=== PATIENT | male | born 1930 | race Caucasian/White ===

== ENCOUNTER 2017-02-01 12:12 | Inpatient (IN) | payer OTHER ==
--- NOTE | 2017-02-01 12:45 | PDOC ---
History of Present Illness <Sunday Blum - Last Filed: 02/01/17 16:38> - General History Source: Patient Exam Limitations: No Limitations - History of Present Illness Initial Comments: 02/01/17 14:06 The patient is a 86 year old male resident from [facility] on [facility], with a significant past medical history of Alzheimer's, Vitamin B12 deficiency, HTN, Depression, Bipolar, Dementia, Osteoarthritis who presents to the emergency department for evaluation of fever. Patient denies any current complaints. Upon evaluation, patients vital signs significant for rectal temperature of 104. He denies chest pain, headache or dizziness. He denies fever, chills, abdominal pain, nausea, vomit, diarrhea or constipation. He denies dysuria, frequency, urgency or hematuria. Patient denies sick contacts or recent travel. Allergies: NKA Past surgical history: None Social history: None PCP: Dana <Svitalna Gibbons - Last Filed: 02/01/17 18:41> - General Chief Complaint: SIRS, Suspected/Possible Stated Complaint: Altered Mental Status Time Seen by Provider: 02/01/17 12:43 Past History - Past Medical History HTN: Yes Psychiatric Problems: Yes - Suicide/Smoking/Psychosocial Hx Smoking History: Unknown if ever smoked Have you smoked in the past 12 months: No If you are a former smoker, when did you quit?: 20 YRS AGO Hx Alcohol Use: No Substance Use Type: None <Sunday Blum - Last Filed: 02/01/17 16:38> <Svitlana Gibbons - Last Filed: 02/01/17 18:41> - Past Medical History Allergies/Adverse Reactions: Allergies Allergy/AdvReac Type Severity Reaction Status Date / Time No Known Allergies Allergy Unverified 09/12/13 11:22 Home Medications: Ambulatory Orders Metoprolol Succinate [Toprol XL -] 50 mg PO DAILY 09/12/13 Cyanocobalamin [Vitamin B12 -] 1,000 mcg PO DAILY 02/01/17 Escitalopram Oxalate [Lexapro -] 5 mg PO DAILY 02/01/17 Loratadine [Claritin] 10 mg PO DAILY 02/01/17 Losartan Potassium [Cozaar] 25 mg PO HS 02/01/17 Olanzapine [Zyprexa] 7.5 mg PO DAILY 02/01/17 Sennosides [Senna] 8.6 mg PO HS 02/01/17 Review of Systems - Review of Systems Able to Perform ROS?: Yes Comments:: 02/01/17 14:07 GENERAL/CONSTITUTIONAL: +fever, chills. No weakness. HEAD, EYES, EARS, NOSE AND THROAT: No change in vision. No ear pain or discharge. No sore throat. CARDIOVASCULAR: No chest pain or shortness of breath. RESPIRATORY: No cough, wheezing, or hemoptysis. GASTROINTESTINAL: No nausea, vomiting, diarrhea or constipation. GENITOURINARY: No dysuria, frequency, or change in urination. MUSCULOSKELETAL: No joint or muscle swelling or pain. No neck or back pain. SKIN: No rash NEUROLOGIC: No headache, vertigo, loss of consciousness, or change in strength/ sensation. ENDOCRINE: No increased thirst. No abnormal weight change. HEMATOLOGIC/LYMPHATIC: No anemia, easy bleeding, or history of blood clots. ALLERGIC/IMMUNOLOGIC: No hives or skin allergy. <Svitlana Gibbons - Last Filed: 02/01/17 18:41> *Physical Exam - Vital Signs Last Vital Signs Temp Pulse Resp BP Pulse Ox 104 F H 102 H 38 H 140/78 98 02/01/17 12:44 02/01/17 12:44 02/01/17 12:44 02/01/17 12:44 02/01/17 12:44 - Physical Exam Comments: 02/01/17 14:07 GENERAL: Awake, alert, and fully oriented, in no acute distress. +confused. HEAD: No signs of trauma EYES: PERRLA, EOMI, sclera anicteric, conjunctiva clear ENT: Auricles normal inspection, hearing grossly normal, nares patent, oropharynx clear without exudates. Moist mucosa NECK: Normal ROM, supple, no lymphadenopathy, JVD, or masses LUNGS: Breath sounds equal, clear to auscultation bilaterally. No wheezes, and no crackles HEART: Regular rate and rhythm, normal S1 and S2, no murmurs, rubs or gallops ABDOMEN: Soft, nontender, normoactive bowel sounds. No guarding, no rebound. No masses EXTREMITIES: Normal range of motion, no edema. No clubbing or cyanosis. No cords, erythema, or tenderness NEUROLOGICAL: Cranial nerves II through XII grossly intact. Normal speech, normal gait SKIN: Warm, Dry, normal turgor, no rashes or lesions noted. <Svitlana Gibbons - Last Filed: 02/01/17 18:41> Heart Score/ECG Review #1 02/01/17 18:[address] Blum Impression: Normal sinus rhythm L axis deviation moderate voltage criteria for LVH Interior infarct Anterior infarct Vent rate 100 bpm <Svitlana Gibbons - Last Filed: 02/01/17 18:41> ED Treatment Course - LABORATORY CBC & Chemistry Diagram: 02/01/17 12:55 02/01/17 13:35 <Sunday Blum - Last Filed: 02/01/17 16:38> - LABORATORY CBC & Chemistry Diagram: 02/01/17 12:55 02/01/17 13:35 - ADDITIONAL ORDERS Additional order review: Laboratory Results 02/01/17 02/01/17 02/01/17 13:35 12:55 12:55 PT with INR 13.30 H INR 1.18 H PTT (Actin FS) 25.2 L Sodium 147 H Potassium 3.8 Chloride 114 H Lactic Acid Blood Type O NEGATIVE Antibody Screen Negative 02/01/17 12:52 PT with INR INR PTT (Actin FS) Sodium Potassium Chloride Lactic Acid 3.4 H* Blood Type Antibody Screen 02/01/17 12:55 RBC 3.99 L MCV 97.7 H MCHC 34.1 RDW 13.4 MPV 9.8 Neutrophils % 95.3 H Lymphocytes % 1.7 L Monocytes % 2.4 L Eosinophils % 0.0 Basophils % 0.6 - Medications Given in the ED: ED Medications Discontinued Medications Generic Name Dose Route Start Last Admin Trade Name Freq PRN Reason Stop Dose Admin Sodium Chloride 1,000 mls @ 1,000 mls/hr 02/01/17 12:52 02/01/17 13:04 Normal Saline - IV 02/01/17 13:51 1,000 mls/hr ASDIR STA Administration <Svitlana Gibbons - Last Filed: 02/01/17 18:41> Medical Decision Making - Critical Care Time Total Critical Care Time (minutes): 60 Critical Care Statement: The care of this patient involved high complexity decision making to prevent further life threatening deterioration of the patient 's condition and/or to evaluate & treat vital organ system(s) failure or risk of failure. - Medical Decision Making 02/01/17 15:[address] Weems's office. Awaiting call back. 02/01/17 16:[address] Weems's office. Awaiting call back. 02/01/17 16:[address] Weems's office. Awaiting call back. <Svitlana Gibbons - Last Filed: 02/01/17 18:41> *DC/Admit/Observation/Transfer - Discharge Dispostion Admit: Yes - Attestations Physician Attestion: 02/01/17 12:44 I, Dr. Sunday Blum, attest that this document has been prepared under my direction and personally reviewed by me in its entirety. I further attest, that it accurately reflects all work, treatment, procedures and medical decision -making performed by me. <Sunday Blum - Last Filed: 02/01/17 16:38> - Attestations Scribe Attestion: 02/01/17 14:07 Documentation prepared by Svitlana Gibbons, acting as medical and scientific illustrator for Sunday Blum DO. <Svitlana Gibbons - Last Filed: 02/01/17 18:41> Diagnosis at time of Disposition: Severe sepsis, Elevated liver function tests, Systemic inflammatory response syndrome (SIRS) - Discharge Dispostion Condition at time of disposition: Improved
[2017-02-01 12:49] VITALS: BMI 27.1
[2017-02-01] MEDS ORDERED: SODIUM CHLORIDE 1,000 ML IV STA ×2 (12:52→15:19)
[2017-02-01] MEDS ORDERED: ACETAMINOPHEN 1000 MG/100 ML VIAL (NON FORMULARY) IVPB ONE (12:54)
[2017-02-01 13:13] LABS: BASOPHIL 0.6 % (0-2.0); MCH 33.3 pg (25.7-33.7); MCHC 34.1 g/dl (32.0-35.9); MEAN CELL VOLUME 97.7 fl (80-96); MEAN PLT VOLUME 9.8 fl (7.5-11.1); NEUTROPHILS 95.3 % (42.8-82.8); PLATELET COUNT 123 K/MM3 (134-434); RDW 13.4 % (11.9-15.9); WHITE BLOOD COUNT 8.3 K/mm3 (4.0-10.0)
[2017-02-01 13:31] LABS: INR 1.18 (0.82-1.09); PROTHROMBIN TIME (PATIENT) 13.3 SEC (9.98-11.88)
[2017-02-01 13:34] LABS: ACTIVATED PTT 25.2 SECONDS (26.9-34.4)
[2017-02-01 14:07] LABS: ALBUMIN 2.8 g/dl (3.4-5.0); ANION GAP 12 (8-16); CALCIUM 7.8 mg/dL (8.5-10.1); CO2 21 mmol/L (21-32); CREATININE 2.1 mg/dL (0.7-1.3); GLUCOSE,RANDOM 147 mg/dL (74-106); SGOT/AST 185 U/L (15-37); SGPT/ALT 385 U/L (12-78)
[2017-02-01 14:09] LABS: BILIRUBIN,TOTAL 2.7 mg/dL (0.2-1.0); TOT PROT 6.6 g/dl (6.4-8.2)
[2017-02-01] MEDS ORDERED: ACETAMINOPHEN INJECTION 100 ML IVPB ONE (14:09)
[2017-02-01 14:19] LABS: URINE APPEARANCE SLCLOUDY; URINE BILIRUBIN NEGATIVE (NEGATIVE); URINE BLOOD 1+ (NEGATIVE); URINE GLUCOSE (UA) NEGATIVE (NEGATIVE); URINE KETONE NEGATIVE (NEGATIVE); URINE NITRITE NEGATIVE (NEGATIVE); URINE UROBILINOGEN NEGATIVE mg/dL (0.2-1.0)
[2017-02-01 14:21] LABS: ALK PHOS 281 U/L (45-117); CPK 939 IU/L (39-308); TROPONIN I 0.11 ng/ml (0.00-0.05)
[2017-02-01 14:26] LABS: URINE COLOR DK YELLOW; URINE PROTEIN 2+ (NEGATIVE)
[2017-02-01 14:28] LABS: URINE BACTERIA FEW /hpf (NONE SEEN); URINE HYALINE CAST 21 /lpf; URINE MUCUS RARE; URINE RBC 8 /hpf (0-3); URINE WBC 2 /hpf (3-5)
[2017-02-01 15:09] LABS: VENOUS PH 7.35 (7.32-7.42)
[2017-02-01] MEDS ORDERED: VANCOMYCIN 500 MG/100 ML PRE-DOCKED IVPB ONE (15:54)
[2017-02-01] MEDS ORDERED: PIPERACILLIN/TAZOB 2.25 GM/50 ML PREMIX BAG IVPB ONE (15:54)
[2017-02-01 16:44] LABS: URINE LEUK ESTERASE Negative (NEGATIVE)
[2017-02-01] MEDS ORDERED: VANCOMYCIN 1 GRAM (PRE-DOCKED) 250 ML IVPB ONE (16:47)
[2017-02-01] MEDS ORDERED: PIPERACILLIN/TAZOB 2.25 GM 50 ML IVPB ONE (17:00)
--- NOTE | 2017-02-01 17:04 | CON.GI ---
Consult Consult Specialty:: GI Referred by:: Dr Johnson (Sx) Reason for Consultation:: cholangitis - History of Present Illness History of Present Illness: An 86 [facility], with Alzheimer's, HTN, Depression, Bipolar, Dementia, Brought to ED with rectal temp 104. The patient is oriented to self. As per family became non-comunicative and lethargic in the last 3 weeks. Not in distress. Doensn't appear to be in pain, or discomfort. In ED foyevgeniy ho have elevated ALP, ALT, AST, Total bili. US liver showed cholelithiasis and choledocolithiasis. History of the same few years ago. Was deemed inoperable for cholesystectomy few years ago. Son and at bedside want to avoid aggressive measures. 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 Cardio/Vascular: Yes: HTN Hepatobiliary: Yes: Cholelithiasis, Cholecystitis Psych: Yes: Depression - Alcohol/Substance Use Hx Alcohol Use: No - Smoking History Smoking history: Unknown if ever smoked Have you smoked in the past 12 months: No If you are a former smoker, when did you quit?: 20 YRS AGO Home Medications - Allergies Allergies/Adverse Reactions: Allergies Allergy/AdvReac Type Severity Reaction Status Date / Time No Known Allergies Allergy Unverified 09/12/13 11:22 - Home Medications Home Medications: Ambulatory Orders Metoprolol Succinate [Toprol XL -] 50 mg PO DAILY 09/12/13 Cyanocobalamin [Vitamin B12 -] 1,000 mcg PO DAILY 02/01/17 Escitalopram Oxalate [Lexapro -] 5 mg PO DAILY 02/01/17 Loratadine [Claritin] 10 mg PO DAILY 02/01/17 Losartan Potassium [Cozaar] 25 mg PO HS 02/01/17 Olanzapine [Zyprexa] 7.5 mg PO DAILY 02/01/17 Sennosides [Senna] 8.6 mg PO HS 02/01/17 Family Disease History - Family Disease History Family History: Unremarkable Review of Systems Unable to obtain ROS, reason: non-comunicative Findings/Remarks: please refer to H&P, ED and HPI Physical Exam-GI Vital Signs: Vital Signs Temperature 104 F H 02/01/17 14:00 Pulse Rate 102 H 02/01/17 14:00 Respiratory Rate 28 H 02/01/17 15:35 Blood Pressure 140/75 02/01/17 14:00 O2 Sat by Pulse Oximetry (%) 98 02/01/17 14:00 Constitutional: Yes: No Distress, Calm. No: Diaphoresis, Pallor Eyes: Yes: Conjunctiva Clear HENT: Yes: Atraumatic Neck: Yes: Supple Cardiovascular: Yes: Tachycardia Respiratory: Yes: Regular ...Palpate: Yes: Soft. No: Guarding, Mass, Pulsatile Mass, Tenderness Musculoskeletal: Yes: Joint Stiffness, Other (i position) Integumentary: No: Jaundice Neurological: Yes: Confusion, Lethargy. No: Alert Labs: INR, PTT INR 1.18 (0.82-1.09) H 02/01/17 12:55 Laboratory Tests 02/01/17 02/01/17 02/01/17 12:52 12:55 12:55 WBC 8.3 RBC 3.99 L Hgb 13.3 Hct 39.0 MCV 97.7 H MCH 33.3 MCHC 34.1 RDW 13.4 Plt Count 123 L MPV 9.8 Neutrophils % 95.3 H Lymphocytes % 1.7 L Monocytes % 2.4 L Eosinophils % 0.0 Basophils % 0.6 PT with INR 13.30 H INR 1.18 H PTT (Actin FS) 25.2 L VBG pH POC VBG pCO2 POC VBG pO2 Mixed VBG HCO3 Sodium Potassium Chloride Carbon Dioxide Anion Gap BUN Creatinine Creat Clearance w eGFR Random Glucose Lactic Acid 3.4 H* Calcium Total Bilirubin AST ALT Alkaline Phosphatase Ammonia Creatine Kinase Creatine Kinase Index CK-MB (CK-2) Troponin I Total Protein Albumin Urine Color Urine Appearance Urine pH Ur Specific [place] Urine Protein Urine Glucose (UA) Urine Ketones Urine Blood Urine Nitrite Urine Bilirubin Urine Urobilinogen Ur Leukocyte Esterase Urine RBC Urine WBC Urine Bacteria Hyaline Casts Urine Mucus Blood Type Antibody Screen 02/01/17 02/01/17 02/01/17 12:55 13:35 13:35 WBC RBC Hgb Hct MCV MCH MCHC RDW Plt Count MPV Neutrophils % Lymphocytes % Monocytes % Eosinophils % Basophils % PT with INR INR PTT (Actin FS) VBG pH POC VBG pCO2 POC VBG pO2 Mixed VBG HCO3 Sodium 147 H Potassium 3.8 Chloride 114 H Carbon Dioxide 21 Anion Gap 12 BUN 83 H Creatinine 2.1 H Creat Clearance w eGFR 30.02 Random Glucose 147 H Lactic Acid Calcium 7.8 L Total Bilirubin 2.7 H AST 185 H ALT 385 H Alkaline Phosphatase 281 H Ammonia 39.4 H Creatine Kinase 939 H Creatine Kinase Index 0.4 CK-MB (CK-2) 3.763 H Troponin I 0.11 H Total Protein 6.6 Albumin 2.8 L Urine Color Urine Appearance Urine pH Ur Specific [place] Urine Protein Urine Glucose (UA) Urine Ketones Urine Blood Urine Nitrite Urine Bilirubin Urine Urobilinogen Ur Leukocyte Esterase Urine RBC Urine WBC Urine Bacteria Hyaline Casts Urine Mucus Blood Type O NEGATIVE Antibody Screen Negative 02/01/17 02/01/17 14:10 14:50 WBC RBC Hgb Hct MCV MCH MCHC RDW Plt Count MPV Neutrophils % Lymphocytes % Monocytes % Eosinophils % Basophils % PT with INR INR PTT (Actin FS) VBG pH 7.35 POC VBG pCO2 42.1 POC VBG pO2 35.9 Mixed VBG HCO3 23.0 Sodium Potassium Chloride Carbon Dioxide Anion Gap BUN Creatinine Creat Clearance w eGFR Random Glucose Lactic Acid Calcium Total Bilirubin AST ALT Alkaline Phosphatase Ammonia Creatine Kinase Creatine Kinase Index CK-MB (CK-2) Troponin I Total Protein Albumin Urine Color Dk yellow Urine Appearance Slcloudy Urine pH 5.0 Ur Specific [place] 1.018 Urine Protein 2+ H Urine Glucose (UA) Negative Urine Ketones Negative Urine Blood 1+ H Urine Nitrite Negative Urine Bilirubin Negative Urine Urobilinogen Negative Ur Leukocyte Esterase Negative Urine RBC 8 Urine WBC 2 Urine Bacteria Few Hyaline Casts 21 Urine Mucus Rare Blood Type Antibody Screen Imaging - Results Ultrasound: Image Reviewed (cholelithiasis, choledocolithiasis. official read pending) Problem List - Problems (1) Cholangitis due to bile duct calculus with obstruction Code(s): K80.31 - CALCULUS OF BILE DUCT W CHOLANGITIS, UNSP, WITH OBSTRUCTION (2) Choledocholithiasis with obstruction Code(s): K80.51 - CALCULUS OF BILE DUCT W/O CHOLANGITIS OR CHOLECYST W OBST (3) Cholelithiasis Code(s): K80.20 - CALCULUS OF GALLBLADDER W/O CHOLECYSTITIS W/O OBSTRUCTION Assessment/Plan Cholangitis in a debilitated patient. Family wants minimally invasive options. ERCP and possible percutaneous transhepatic cholangiography were discussed. Start ceftriaxone 1 gm IV q24, Metronidazole 500 mg IV q8 hrs. ID Abx evalaution for optimal coverage IR to evaluate for percutaneous drainage Surgery is on the case NPO IVF CBD, CMP, direct bili daily.
[2017-02-01] MEDS: SODIUM CHLORIDE 1,000 ML IV SCH (17:30)
--- NOTE | 2017-02-01 18:06 | CON.ID ---
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 He has generally not been feeling well and getting less active and responsive. He was brought to ER, where he had a temp 104, Patient was worked up in the er US showed gallstones and sludge, thickened gallbladder wall, dilated CBD >1cm with CBD stone(s) present and possibly mild intrahepatic dilation. 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's Cardio/Vascular: Yes: HTN Hepatobiliary: Yes: Cholelithiasis, Cholecystitis Psych: Yes: Depression - Alcohol/Substance Use Hx Alcohol Use: No - Smoking History Smoking history: Unknown if ever smoked Have you smoked in the past 12 months: No If you are a former smoker, when did you quit?: 20 YRS AGO Home Medications - Allergies Allergies/Adverse Reactions: Allergies Allergy/AdvReac Type Severity Reaction Status Date / Time No Known Allergies Allergy Unverified 09/12/13 11:22 - Home Medications Home Medications: Ambulatory Orders Metoprolol Succinate [Toprol XL -] 50 mg PO DAILY 09/12/13 Cyanocobalamin [Vitamin B12 -] 1,000 mcg PO DAILY 02/01/17 Escitalopram Oxalate [Lexapro -] 5 mg PO DAILY 02/01/17 Loratadine [Claritin] 10 mg PO DAILY 02/01/17 Olanzapine [Zyprexa] 7.5 mg PO DAILY 02/01/17 Sennosides [Senna] 8.6 mg PO HS 02/01/17 Ascorbate Calcium [Vitamin C] 500 mg PO DAILY 02/02/17 Losartan Potassium [Cozaar] 50 mg PO DAILY 02/02/17 Review of Systems Unable to obtain ROS, reason: unable to obtain Physical Exam Vital Signs: Vital Signs Temperature 104 F H 02/01/17 14:00 Pulse Rate 102 H 02/01/17 14:00 Respiratory Rate 28 H 02/01/17 15:35 Blood Pressure 140/75 02/01/17 14:00 O2 Sat by Pulse Oximetry (%) 98 02/01/17 14:00 Constitutional: Yes: Calm, Mild Distress Eyes: Yes: Sclera Icterus HENT: Yes: Atraumatic Neck: Yes: Supple, Trachea Midline Cardiovascular: Yes: Regular Rate and Rhythm. No: Murmur Respiratory: Yes: On Nasal O2, Poor Air Entry Gastrointestinal: Yes: Tenderness (left side) Musculoskeletal: Yes: WNL Extremities: Yes: WNL Integumentary: Yes: WNL Neurological: Yes: Alert, Confusion, Lethargy Psychiatric: Yes: Other Imaging - Results Chest X-ray: Report Reviewed, Image Reviewed Cat Scan: Report Reviewed, Image Reviewed Ultrasound: Report Reviewed, Image Reviewed Assessment/Plan Problem List - Problems (1) Calculus of gallbladder 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91 - Unspecified dementia with behavioral disturbance; F03.91 - Unspecified dementia with behavioral disturbance; F03.91 - Unspecified dementia with behavioral disturbance fever because of patients condition i doubt patient will be taken to the or further imaging studies planned and then will decide what to do next i ahve started patient on abx plan abx hydration await for all cx rest as per primary team and surgery
--- NOTE | 2017-02-01 19:32 | CONSULT ---
Consult Consult Specialty:: General Surgery Referred by:: Dr. 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 He has been spending more time in bed, not just in room, eating less until he won't eat last few days, no direct complaints of abdominal pain but states "my head hurts. " He has generally not been feeling well and getting less active and responsive. He was brought to ER, where he had a temp 104, wbc 8.3, BUN/Cr 83/ 2.1, elevated LFTs, mildly elevated cardiac enzymes, lactate 3.4, neg UA. Head CT was negative, he was hydrated with IV fluid and blood cultures were drawn. US showed gallstones and sludge, thickened gallbladder wall, dilated CBD >1cm with CBD stone(s) present and possibly mild intrahepatic dilation. Antibiotics - Vanco and Zosyn were started at renal doses. ID and GI were consulted. He is admitted to medicine. Surgery was consulted prior to the US results for possible intraabdominal source of fever and illness. Per his , she also noticed a slight yellow tinge to his skin. They are not sure how much he has been urinating recently, but believe he is having BMs at the group home. He recently was started on an antipsychotic there to help with behavioral outbursts related to his dementia. Per , he has been keeping his eyes closed when eating recently, which is not typical, and he stopped eating at the group home. No N/V that they know of. 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 getting records from [place] ), Choledocholithiasis Psych: Yes: Depression, Psychosis (features to dementia) Additional Medical History: macular degeneration (legally blind) - Past Surgical History Past Surgical History: Yes: Upper Endoscopy (with ERCP and stone extraction 2015 [place] (too sick for cholecystectomy)) - Alcohol/Substance Use Hx Alcohol Use: No History of Substance Use: reports: None - Smoking History Smoking history: Former smoker Have you smoked in the past 12 months: No If you are a former smoker, when did you quit?: 30 YRS AGO - 1-2ppd x 20-30 yrs - Social History Usual Living Arrangement: Jail ADL: Support Services Home Medications - Allergies Allergies/Adverse Reactions: Allergies Allergy/AdvReac Type Severity Reaction Status Date / Time No Known Allergies Allergy Unverified 09/12/13 11:22 - Home Medications Home Medications: Ambulatory Orders Metoprolol Succinate [Toprol XL -] 50 mg PO DAILY 09/12/13 Cyanocobalamin [Vitamin B12 -] 1,000 mcg PO DAILY 02/01/17 Escitalopram Oxalate [Lexapro -] 5 mg PO DAILY 02/01/17 Loratadine [Claritin] 10 mg PO DAILY 02/01/17 Losartan Potassium [Cozaar] 25 mg PO HS 02/01/17 Olanzapine [Zyprexa] 7.5 mg PO DAILY 02/01/17 Sennosides [Senna] 8.6 mg PO HS 02/01/17 Family Disease History - Family Disease History Family History: Unremarkable Review of Systems Unable to obtain ROS, reason: patient condition - Review of Systems Constitutional: reports: Fever (in ER), Lethargy, Loss of Appetite, Weakness Eyes: reports: Other (pt is blind) HENT: reports: Other (per family, NH had given meds recently for "a cold") Cardiovascular: denies: Chest Pain Respiratory: reports: Cough (possible - son heard him coughing, but not sure for how long). denies: SOB Gastrointestinal: reports: Constipation (history of). denies: Abdominal Pain ( pt not complaining of), Nausea, Vomiting Integumentary: reports: Change in Color (slightly yellow per ). denies: Rash Neurological: reports: Change in LOC (less responsive, more lethargic), Confusion (dementia), Headache (pt c/o head hurting), Unsteady Gait (weak), Weakness (had trouble getting up third step at home few days ago) Psychiatric: reports: Other (behavioral issues with dementia) Physical Exam Vital Signs: Vital Signs Temperature 104 F H 02/01/17 14:00 Pulse Rate 102 H 02/01/17 14:00 Respiratory Rate 28 H 02/01/17 15:35 Blood Pressure 140/75 02/01/17 14:00 O2 Sat by Pulse Oximetry (%) 98 02/01/17 14:00 Constitutional: Yes: Well Nourished, No Distress, Calm Eyes: Yes: EOM Intact, Sclera Icterus (mild) HENT: Yes: Atraumatic, Normocephalic Neck: Yes: Supple, Trachea Midline Cardiovascular: Yes: Regular Rate and Rhythm. No: Murmur Respiratory: Yes: Regular, CTA Bilaterally Gastrointestinal: Yes: Normal Bowel Sounds, Soft, Distention (some). No: Tenderness (none elicited directly) ...Rectal Exam: Yes: Deferred Renal/: No: CVA Tenderness - Left, CVA Tenderness - Right Musculoskeletal: Yes: Other (tends to hold knees bent, not contracted, can extend). No: Joint Stiffness, Joint Swelling Extremities: No: Cool, Cyanosis Edema: Yes Edema: LLE: 1+, RLE: 1+ Peripheral Pulses WNL: Yes Integumentary: Yes: Jaundice (mild). No: Rash Neurological: Yes: Alert, Confusion Labs: CBCD WBC 8.3 K/mm3 (4.0-10.0) 02/01/17 12:55 RBC 3.99 M/mm3 (4.00-5.60) L 02/01/17 12:55 Hgb 13.3 GM/dL (11.7-16.9) 02/01/17 12:55 Hct 39.0 % (35.4-49) 02/01/17 12:55 MCV 97.7 fl (80-96) H 02/01/17 12:55 MCHC 34.1 g/dl (32.0-35.9) 02/01/17 12:55 RDW 13.4 % (11.9-15.9) 02/01/17 12:55 Plt Count 123 K/MM3 (134-434) L 02/01/17 12:55 MPV 9.8 fl (7.5-11.1) 02/01/17 12:55 CMP Sodium 147 mmol/L (136-145) H 02/01/17 13:35 Potassium 3.8 mmol/L (3.5-5.1) 02/01/17 13:35 Chloride 114 mmol/L (98-107) H 02/01/17 13:35 Carbon Dioxide 21 mmol/L (21-32) 02/01/17 13:35 Anion Gap 12 (8-16) 02/01/17 13:35 BUN 83 mg/dL (7-18) H 02/01/17 13:35 Creatinine 2.1 mg/dL (0.7-1.3) H 02/01/17 13:35 Creat Clearance w eGFR 30.02 (>60) 02/01/17 13:35 Calcium 7.8 mg/dL (8.5-10.1) L 02/01/17 13:35 Total Bilirubin 2.7 mg/dL (0.2-1.0) H 02/01/17 13:35 AST 185 U/L (15-37) H 02/01/17 13:35 ALT 385 U/L (12-78) H 02/01/17 13:35 Alkaline Phosphatase 281 U/L (45-117) H 02/01/17 13:35 Total Protein 6.6 g/dl (6.4-8.2) 02/01/17 13:35 Albumin 2.8 g/dl (3.4-5.0) L 02/01/17 13:35 Urine Test Results Urine Color Dk yellow 02/01/17 14:10 Urine Appearance Slcloudy 02/01/17 14:10 Urine pH 5.0 (5.0-8.0) 02/01/17 14:10 Ur Specific [place] 1.018 (1.001-1.035) 02/01/17 14:10 Urine Protein 2+ (NEGATIVE) H 02/01/17 14:10 Urine Glucose (UA) Negative (NEGATIVE) 02/01/17 14:10 Urine Ketones Negative (NEGATIVE) 02/01/17 14:10 Urine Blood 1+ (NEGATIVE) H 02/01/17 14:10 Urine Nitrite Negative (NEGATIVE) 02/01/17 14:10 Urine Bilirubin Negative (NEGATIVE) 02/01/17 14:10 Ur Leukocyte Esterase Negative (NEGATIVE) 02/01/17 14:10 Urine RBC 8 /hpf (0-3) 02/01/17 14:10 Urine WBC 2 /hpf (3-5) 02/01/17 14:10 Urine Bacteria Few /hpf (NONE SEEN) 02/01/17 14:10 Urine Mucus Rare 02/01/17 14:10 lact 3.4 INR, PTT INR 1.18 (0.82-1.09) H 02/01/17 12:55 Troponin, BNP 02/01/17 13:35 Troponin I 0.11 H elevated Na, Cl Imaging - Results Chest X-ray: Report Reviewed Cat Scan: Pending Ultrasound: Report Reviewed (choledocholithiasis, cholelithiasis with sludge, mildly thickened wall, cbd dilation with possible mild intrahepatic dilation), Image Reviewed MRI: Pending EKG: Report Reviewed, Image Reviewed Problem List - Problems (1) Calculus of gallbladder 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 Assessment/Plan: admitted to medicine NPO/IVF - essential meds with sips ok GI on board trend labs IV antibiotics - ID on board, adjust for renal function CT pending to ensure no other source of illness MRCP pending tonight for IR possible HIDA in am to evaluate for cystic duct obstruction pending MR results, then plan for percutaneous biliary drainage of bile duct +/- gallbladder pt was "too sick" for surgery 2 years ago, is still not good candidate for cholecystectomy, ERCP carries risks of anesthesia, and family desires least invasive procedure(s) possible with potential for benefit will start with above and IV antibiotics and reassess cardiology also to see patient - admitted to telemetry Thank you for the opportunity to participate in the care of this patient. Code(s): K80.67 - CALCULUS OF GB AND BILE DUCT W AC AND CHR CHOLECYST W OBST (2) Hypertension Code(s): I10 - ESSENTIAL (PRIMARY) HYPERTENSION Qualifiers: Hypertension type: essential hypertension Qualified Code(s): I10 - Essential (primary) hypertension; I10 - Essential (primary) hypertension; I10 - Essential (primary) hypertension (3) Macular degeneration, age related Code(s): H35.30 - UNSPECIFIED MACULAR DEGENERATION (4) Dementia with behavioral disturbance Code(s): F03.91 - UNSPECIFIED DEMENTIA WITH BEHAVIORAL DISTURBANCE Qualifiers : Dementia type: unspecified type Qualified Code(s): F03.91 - Unspecified dementia with behavioral disturbance; F03.91 - Unspecified dementia with behavioral disturbance; F03.91 - Unspecified dementia with behavioral disturbance
[2017-02-02] MEDS ORDERED: ACETAMINOPHEN 1000 MG/100 ML VIAL (NON FORMULARY) IVPB ONE ×2 (01:11→08:59)
[2017-02-02] MEDS ORDERED: ACETAMINOPHEN INJECTION 100 ML IVPB ONE ×2 (01:12→08:55)
[2017-02-02] MEDS: PIPERACILLIN/TAZOB 2.25 GM 50 ML IVPB SCH ×3 (02:38→18:32)
[2017-02-02 08:07] LABS: BASOPHIL 0.1 % (0-2.0); MCH 33.4 pg (25.7-33.7); MCHC 33.6 g/dl (32.0-35.9); MEAN CELL VOLUME 99.4 fl (80-96); MEAN PLT VOLUME 9.9 fl (7.5-11.1); PLATELET COUNT 84 K/MM3 (134-434); RDW 14.3 % (11.9-15.9)
[2017-02-02 08:44] LABS: ALBUMIN 2.4 g/dl (3.4-5.0); ALK PHOS 217 U/L (45-117); ANION GAP 11 (8-16); CALCIUM 7.6 mg/dL (8.5-10.1); CO2 21 mmol/L (21-32); CREATININE 1.7 mg/dL (0.7-1.3); GLUCOSE,RANDOM 95 mg/dL (74-106); SGOT/AST 117 U/L (15-37); SGPT/ALT 270 U/L (12-78); TOT PROT 5.8 g/dl (6.4-8.2)
[2017-02-02 09:05] LABS: CPK 734 IU/L (39-308)
--- NOTE | 2017-02-02 09:31 | CON.CARD ---
Cardiology Consult (text) - Consultation Consultation Note: Cardiology Consult Dictated Sepsis, gram negative Choledocholithiasis ASHD REC: The borderline elevation in TnI is due to sepsis. Continue abx No cardiac contraindication to perc. cholecystostomy Echo to evaluate murmur
--- NOTE | 2017-02-02 11:11 | CONS ---
CARDIOLOGY CONSULTATION DATE OF CONSULTATION: 02/02/2017 REQUESTING PHYSICIAN: Lucrecia Spring MD The history was obtained from the medical record and from review with surgical colleagues. The patient is septic and cannot provide adequate history. He was seen and examined earlier this morning in the emergency room. At which time, he was asleep but arousable. He is an 86-year-old male, half-way resident, with hypertension, legally blind due to macular degeneration, dementia, history of cholelithiasis status post ERCP with previous stone extraction in 2014. He is now in the emergency department with general malaise, less responsive than usual. He was found to be febrile with a temperature of 104, elevated BUN and creatinine, elevated LFTs, and a lactate of 3.4. Imaging has shown gallbladder sludge, thickened gallbladder wall, and dilated common bile duct with stones and possible intrahepatic dilatation. His blood cultures have grown gram-negative bacilli in all bottles. He was started on IV antibiotics. His electrocardiogram indicates that he has probable underlying coronary disease with an old inferior and old anterior wall IL pattern. PAST MEDICAL HISTORY: Is as outlined above and also includes hypertension. ALLERGIES: He has no known drug allergies. HOME MEDICATIONS: Include Zyprexa 7.5 mg daily for treatment of underlying dementia with psychotic features, Cozaar 25 mg daily, Claritin 10 mg daily, Lexapro 5 mg daily, vitamin B12 at 1000 mcg daily, senna nightly, and Toprol-XL 50 mg daily. FAMILY HISTORY: Could not be obtained and is not pertinent to this presentation. SOCIAL HISTORY: According to records, no alcohol and no history of tobacco use. PHYSICAL EXAMINATION: General: He is asleep but arousable, in no acute distress. Vital Signs: Temperature of 103.1 Fahrenheit. Pulse 62. Blood pressure ranging between 120 and 180 systolic. This morning, 180 prior to medication administration. Oxygen saturation 96 on room air. Neck: No bruits. Heart: S1, S2. There was a loud systolic murmur audible throughout the precordium. Chest: Clear. Abdomen: Generally soft, non-rigid. Extremities: No significant edema. DIAGNOSTIC DATA: His EKG is referred to in the HPI. LABORATORY DATA: White count 7, hematocrit 36, platelets 84,000. INR 1.18. Sodium 149, potassium 3.5. Creatinine is down to 1.7. Lactate was 3.4, down to 1.8. Bilirubin is 5. AST is 117, ALT 270, alkaline phosphatase 217. CK 734. Troponin 0.1 and 0.1. Lipase 576. Urinalysis showed 2+ protein and no leukocyte esterase. Blood cultures are positive for gram-negative bacilli. IMPRESSION: 1. Sepsis due to gram-negative bacteremia secondary to gallbladder source. 2. Choledocholithiasis. 3. Probable underlying coronary disease. 4. Marginal/ borderline elevation of cardiac TnI PLAN: 1. The patient is septic from probable gallbladder source. There are no cardiac contraindications to percutaneous cholecystostomy if that is deemed the appropriate procedure. The non-zero, marginal elevation in TnI is due to sepsis. His ECG is suggestive of underlying CAD with evidence of old inferior and old anterior wall IL, but the current TnI is not reflective of an acute coronary syndrome nor of NSTEMI. 2. Echocardiogram for assessment of the murmur. 3. Follow cultures and continue antibiotics as per General Surgery and general medical team. Thank you for the consultation. Enedelia [id number] MTDD
--- NOTE | 2017-02-02 11:44 | EKG ---
Test Reason : Blood Pressure : / mmHG Vent. Rate : 100 BPM Atrial Rate : 100 BPM P-R Int : 158 ms QRS Dur : 078 ms QT Int : 332 ms P-R-T Axes : 059 -52 020 degrees QTc Int : 428 ms NORMAL SINUS RHYTHM BASELINE ARTIFACTS ABNORMAL LEFT AXIS DEVIATION MODERATE VOLTAGE CRITERIA FOR LVH, MAY BE NORMAL VARIANT INFERIOR INFARCT , AGE UNDETERMINED CANNOT EXCLUDE ANTERIOR WALL INFARCT OF INDETERMINATE AGE ABNORMAL ECG NO PREVIOUS ECGS AVAILABLE C CLINICAL CORRELATION AND FOLLOWUP EKG INDICATED. Confirmed by JUANY ERNANDEZ MD ([id number]) on 02/02/2017 11:44:11 AM Referred By: Confirmed By:JUANY ERNANDEZ MD
[2017-02-02] MEDS ORDERED: ACETAMINOPHEN 1000 MG/100 ML VIAL (NON FORMULARY) IVPB PRN (13:33)
--- NOTE | 2017-02-02 13:33 | HP ---
Admitting History and Physical - Primary Care Physician PCP: Dana King - Admission Chief Complaint: fever History of Present Illness: ER HISTORY - History of Present Illness Initial Comments: 02/01/17 14:06 The patient is a 86 year old male resident from [facility], with a significant past medical history of Alzheimer's, Vitamin B12 deficiency, HTN, Depression, Bipolar, Dementia, Osteoarthritis who presents to the emergency department for evaluation of fever. Patient denies any current complaints. Upon evaluation, patients vital signs significant for rectal temperature of 104. He denies chest pain, headache or dizziness. He denies fever, chills, abdominal pain, nausea, vomit, diarrhea or constipation. He denies dysuria, frequency, urgency or hematuria. Patient denies sick contacts or recent travel. Allergies: NKA Past surgical history: None Social history: None PCP: Dana Pt examined in ER Poor historian Sent from [place] for 104F, lethargy Found to have acute colangitis and CBD dilation Not a candidate for cholecystectomy Troponins noted to be elevated All consults noted Spoke with PMD Pt just came back from IR - s/p percutaneous drainage History Source: Medical Record Limitations to Obtaining History: Poor Historian - Past Medical History EMERGENCY CARE TECH: Yes: Dementia Cardiovascular: Yes: HTN Hepatobiliary: Yes: Cholelithiasis, Cholecystitis (? getting records from [place] ), Choledocholithiasis Psych: Yes: Depression, Psychosis (features to dementia) - Past Surgical History Past Surgical History: Yes: Upper Endoscopy (with ERCP and stone extraction 2015 [place] (too sick for cholecystectomy)) - Smoking History Smoking history: Former smoker Have you smoked in the past 12 months: No If you are a former smoker, when did you quit?: 30 YRS AGO - 1-2ppd x 20-30 yrs - Alcohol/Substance Use Hx Alcohol Use: No History of Substance Use: reports: None - Social History ADL: Support Services Home Medications - Allergies Allergies/Adverse Reactions: Allergies Allergy/AdvReac Type Severity Reaction Status Date / Time No Known Allergies Allergy Unverified 09/12/13 11:22 - Home Medications Home Medications: Ambulatory Orders Metoprolol Succinate [Toprol XL -] 50 mg PO DAILY 09/12/13 Cyanocobalamin [Vitamin B12 -] 1,000 mcg PO DAILY 02/01/17 Escitalopram Oxalate [Lexapro -] 5 mg PO DAILY 02/01/17 Loratadine [Claritin] 10 mg PO DAILY 02/01/17 Olanzapine [Zyprexa] 7.5 mg PO DAILY 02/01/17 Sennosides [Senna] 8.6 mg PO HS 02/01/17 Ascorbate Calcium [Vitamin C] 500 mg PO DAILY 02/02/17 Losartan Potassium [Cozaar] 50 mg PO DAILY 02/02/17 Review of Systems Unable to obtain ROS, reason: poor historian Physical Examination Vital Signs: Vital Signs Temperature 103.1 F H 02/02/17 09:01 Pulse Rate 89 02/02/17 11:47 Respiratory Rate 19 02/02/17 11:47 Blood Pressure 102/71 02/02/17 11:47 O2 Sat by Pulse Oximetry (%) 97 02/02/17 11:47 Constitutional: Yes: Mild Distress Cardiovascular: Yes: Regular Rate and Rhythm Respiratory: Yes: Diminished Gastrointestinal: Yes: Normal Bowel Sounds, Soft, Tenderness (drain+right upper quad pain). No: Distention Edema: No Neurological: Yes: Alert Psychiatric: Yes: Alert Labs: CBC, BMP 02/02/17 07:49 02/02/17 07:49 Imaging - Results Chest X-ray: Image Reviewed Cat Scan: Report Reviewed MRI: Report Reviewed EKG: Image Reviewed (NSR) Problem List - Problems (1) Calculus of gallbladder 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 Code(s): K80.67 - CALCULUS OF GB AND BILE DUCT W AC AND CHR CHOLECYST W OBST (2) Cholangitis due to bile duct calculus with obstruction Code(s): K80.31 - CALCULUS OF BILE DUCT W CHOLANGITIS, UNSP, WITH OBSTRUCTION (3) Choledocholithiasis with obstruction Code(s): K80.51 - CALCULUS OF BILE DUCT W/O CHOLANGITIS OR CHOLECYST W OBST (4) Dementia with behavioral disturbance Code(s): F03.91 - UNSPECIFIED DEMENTIA WITH BEHAVIORAL DISTURBANCE Qualifiers : Dementia type: unspecified type Qualified Code(s): F03.91 - Unspecified dementia with behavioral disturbance; F03.91 - Unspecified dementia with behavioral disturbance; F03.91 - Unspecified dementia with behavioral disturbance (5) Elevated liver function tests Code(s): R79.89 - OTHER SPECIFIED ABNORMAL FINDINGS OF BLOOD CHEMISTRY (6) Hypertension Code(s): I10 - ESSENTIAL (PRIMARY) HYPERTENSION Qualifiers: Hypertension type: essential hypertension Qualified Code(s): I10 - Essential (primary) hypertension; I10 - Essential (primary) hypertension; I10 - Essential (primary) hypertension (7) Severe sepsis Code(s): A41.9 - SEPSIS, UNSPECIFIED ORGANISM R65.20 - SEVERE SEPSIS WITHOUT SEPTIC SHOCK Assessment/Plan PLAN s/p Percutaneous drainage IV antibiotics keep NPO IV fluids check LFTs spoke with surgeon pain control with Morphine DVT prophylaxis-- Lovenox sc
[2017-02-02] MEDS ORDERED: DEXTROSE 5%-0.45% SALINE 1,000 ML IV SCH (13:45)
--- NOTE | 2017-02-02 15:13 | PN ---
Progress Note (short form) - Note Progress Note: Unable to see pt this am - was in IR for procedure. MRCP and CT results noted. Blood cultures positive for LF GNB in all bottles. Lipase elevated, LFTs down a little this am, but bili up. Vital Signs Period Temp Pulse Resp BP Sys/Hernandez Pulse Ox Last 24 Hr 98.1 F-103.1 F 62-117 16-29 102-180/52-95 96-100 PE: deferred CBCD WBC 7.0 K/mm3 (4.0-10.0) 02/02/17 07:49 RBC 3.88 M/mm3 (4.00-5.60) L 02/02/17 07:49 Hgb 13.0 GM/dL (11.7-16.9) 02/02/17 07:49 Hct 38.6 % (35.4-49) 02/02/17 07:49 MCV 99.4 fl (80-96) H 02/02/17 07:49 MCHC 33.6 g/dl (32.0-35.9) 02/02/17 07:49 RDW 14.3 % (11.9-15.9) 02/02/17 07:49 Plt Count 84 K/MM3 (134-434) L D 02/02/17 07:49 MPV 9.9 fl (7.5-11.1) 02/02/17 07:49 CMP Sodium 149 mmol/L (136-145) H 02/02/17 07:49 Potassium 3.5 mmol/L (3.5-5.1) 02/02/17 07:49 Chloride 117 mmol/L (98-107) H 02/02/17 07:49 Carbon Dioxide 21 mmol/L (21-32) 02/02/17 07:49 Anion Gap 11 (8-16) 02/02/17 07:49 BUN 67 mg/dL (7-18) H 02/02/17 07:49 Creatinine 1.7 mg/dL (0.7-1.3) H 02/02/17 07:49 Creat Clearance w eGFR 38.32 (>60) 02/02/17 07:49 Calcium 7.6 mg/dL (8.5-10.1) L 02/02/17 07:49 Total Bilirubin 5.0 mg/dL (0.2-1.0) H D 02/02/17 07:49 AST 117 U/L (15-37) H D 02/02/17 07:49 ALT 270 U/L (12-78) H D 02/02/17 07:49 Alkaline Phosphatase 217 U/L (45-117) H D 02/02/17 07:49 Total Protein 5.8 g/dl (6.4-8.2) L 02/02/17 07:49 Albumin 2.4 g/dl (3.4-5.0) L 02/02/17 07:49 lipase 576 plts a little low Microbiology 02/01/17 14:10 Urine Culture - Final Urine - Urine Clean Catch NO GROWTH OBTAINED 02/01/17 12:55 Blood Culture - Preliminary Blood - Peripheral Venous Lactose Fermenting Neg Bacilli 02/01/17 12:55 Blood Culture - Preliminary Blood - Peripheral Venous Lactose Fermenting Neg Bacilli 02/01/17 15:18 Influenza Types A,B Antigen (GENESIS) - Final Nasopharyngeal Swab - Final A/P: choledocholithiasis with obstruction, cholelithiasis with chronic cholecystitis sepsis with GN bacteremia biliary pancreatitis NPO/IVF could probably take essential home meds with sips of water may need more IV fluids given pancreatitis as well renal function improving but still compromised IV antibiotics per ID pt could not cooperate for biliary drain, percutaneous cholecystostomy placed successfully blood and bile cultures pending could still need further drainage GI following trend labs cardiology on board no surgical intervention planned will remain available as needed Problem List - Problems (1) Calculus of gallbladder 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 Code(s): K80.67 - CALCULUS OF GB AND BILE DUCT W AC AND CHR CHOLECYST W OBST (2) Pancreatitis due to common bile duct stone Code(s): K85.90 - ACUTE PANCREATITIS WITHOUT NECROSIS OR INFECTION, UNSP K80.50 - CALCULUS OF BILE DUCT W/O CHOLANGITIS OR CHOLECYST W/O OBST (3) Hypertension Code(s): I10 - ESSENTIAL (PRIMARY) HYPERTENSION Qualifiers: Hypertension type: essential hypertension Qualified Code(s): I10 - Essential (primary) hypertension; I10 - Essential (primary) hypertension; I10 - Essential (primary) hypertension (4) Macular degeneration, age related Code(s): H35.30 - UNSPECIFIED MACULAR DEGENERATION (5) Dementia with behavioral disturbance Code(s): F03.91 - UNSPECIFIED DEMENTIA WITH BEHAVIORAL DISTURBANCE Qualifiers : Dementia type: unspecified type Qualified Code(s): F03.91 - Unspecified dementia with behavioral disturbance; F03.91 - Unspecified dementia with behavioral disturbance; F03.91 - Unspecified dementia with behavioral disturbance
--- NOTE | 2017-02-02 16:07 | PN ---
Progress Note, Physician History of Present Illness: patient with further studies done choly tube placed by ir comfortable - Current Medication List Current Medications: Active Medications Acetaminophen (Ofirmev Injection -) 1,000 mg IVPB Q6H PRN PRN Reason: FEVER OR PAIN Stop: 02/03/17 07:34 Sodium Chloride (Normal Saline -) 1,000 mls @ 125 mls/hr IV ASDIR HOANG Last Admin: 02/01/17 17:30 Dose: 125 mls/hr Piperacillin/Tazobactam/Dextrose (Zosyn 2.25gm Ivpb (Premix)) 50 mls @ 100 mls/ hr IVPB Q8H-IV HOANG PRN Reason: Protocol Last Admin: 02/02/17 11:35 Dose: 100 mls/hr Dextrose/Sodium Chloride (D5-1/2ns -) 1,000 mls @ 83 mls/hr IV ASDIR HOANG Last Admin: 02/02/17 14:55 Dose: 83 mls/hr Morphine Sulfate (Morphine Injection -) 2 mg IVPUSH Q4H PRN PRN Reason: PAIN - Objective Vital Signs: Vital Signs Temperature 99.9 F H 02/02/17 13:30 Pulse Rate 89 02/02/17 11:47 Respiratory Rate 19 02/02/17 11:47 Blood Pressure 102/71 02/02/17 11:47 O2 Sat by Pulse Oximetry (%) 97 02/02/17 12:15 Constitutional: Yes: No Distress, Calm HENT: Yes: Atraumatic, Normocephalic Cardiovascular: Yes: Regular Rate and Rhythm Respiratory: Yes: Regular, On Nasal O2 Gastrointestinal: Yes: Soft, Other (choley tube in place) Musculoskeletal: Yes: WNL Extremities: Yes: WNL Neurological: Yes: Alert Psychiatric: Yes: Alert Labs: CBC, BMP 02/02/17 07:49 02/02/17 07:49 INR, PTT INR 1.18 (0.82-1.09) H 02/01/17 12:55 Assessment/Plan Problem List - Problems (1) Calculus of gallbladder 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91 - Unspecified dementia with behavioral disturbance; F03.91 - Unspecified dementia with behavioral disturbance; F03.91 - Unspecified dementia with behavioral disturbance fever 6 gm negative bacteremia because of patients condition i doubt patient will be taken to the or further imaging studies planned and then will decide what to do next i yovani started patient on abx plan abx hydration await for identification of bacteria rest as per primary team and surgery
--- NOTE | 2017-02-02 16:47 | PN ---
Progress Note (short form) - Note Progress Note: s/p percutaneous cholecystostomy. unclear if this will drain CBD. Monitor Clinical condition closely. Labs in PM and AM daily contine ABx as per ID recommendation. IV hydration as much as tolerated Problem List - Problems (1) Cholangitis due to bile duct calculus with obstruction Code(s): K80.31 - CALCULUS OF BILE DUCT W CHOLANGITIS, UNSP, WITH OBSTRUCTION (2) Choledocholithiasis with obstruction Code(s): K80.51 - CALCULUS OF BILE DUCT W/O CHOLANGITIS OR CHOLECYST W OBST (3) Cholelithiasis Code(s): K80.20 - CALCULUS OF GALLBLADDER W/O CHOLECYSTITIS W/O OBSTRUCTION
[2017-02-02] MEDS: morphine CARPU-JECT 2 MG/1 ML DISP.SYRIN IVPUSH PRN (17:21)
[2017-02-02 18:49] LABS: BASOPHIL 0.1 % (0-2.0); MCH 33.4 pg (25.7-33.7); MCHC 33.8 g/dl (32.0-35.9); MEAN CELL VOLUME 98.8 fl (80-96); MEAN PLT VOLUME 11.1 fl (7.5-11.1); NEUTROPHILS 91.6 % (42.8-82.8); PLATELET COUNT 68 K/MM3 (134-434); RDW 14.3 % (11.9-15.9); WHITE BLOOD COUNT 8.1 K/mm3 (4.0-10.0)
[2017-02-02 19:22] LABS: ALBUMIN 1.7 g/dl (3.4-5.0); BILIRUBIN,DIRECT 3.7 mg/dL (0.0-0.2); BILIRUBIN,TOTAL 4.3 mg/dL (0.2-1.0); TOT PROT 4.4 g/dl (6.4-8.2)
[2017-02-03] MEDS: morphine CARPU-JECT 2 MG/1 ML DISP.SYRIN IVPUSH PRN (00:10)
[2017-02-03] MEDS: PIPERACILLIN/TAZOB 2.25 GM 50 ML IVPB SCH ×3 (02:03→17:13)
[2017-02-03 07:27] LABS: ANION GAP 9 (8-16); CO2 22 mmol/L (21-32); CREATININE 2.4 mg/dL (0.7-1.3); GLUCOSE,RANDOM 143 mg/dL (74-106)
[2017-02-03 07:31] LABS: CALCIUM 6.9 mg/dL (8.5-10.1)
[2017-02-03] MEDS ORDERED: MEROPENEM 1,000 MG in DEXTROSE 5%-WATER - 100 ML IVPB ONE (07:49)
--- NOTE | 2017-02-03 08:13 | PN ---
Progress Note, Physician History of Present Illness: s/p PC. Biliary ducts could not be canulated. Respiratory deterioration requiring intubation and transfer to ICU this am. - Current Medication List Current Medications: Active Medications Enoxaparin Sodium (Lovenox -) 40 mg SQ DAILY HOANG Sodium Chloride (Normal Saline -) 1,000 mls @ 125 mls/hr IV ASDIR HOANG Last Admin: 02/01/17 17:30 Dose: 125 mls/hr Piperacillin/Tazobactam/Dextrose (Zosyn 2.25gm Ivpb (Premix)) 50 mls @ 100 mls/ hr IVPB Q8H-IV HOANG PRN Reason: Protocol Last Admin: 02/03/17 02:03 Dose: 100 mls/hr Dextrose/Sodium Chloride (D5-1/2ns -) 1,000 mls @ 83 mls/hr IV ASDIR HOANG Last Admin: 02/02/17 14:55 Dose: 83 mls/hr Meropenem 1,000 mg/ Dextrose 100 mls @ 200 mls/hr IVPB ONCE ONE Stop: 02/03/17 08:18 Morphine Sulfate (Morphine Injection -) 2 mg IVPUSH Q4H PRN PRN Reason: PAIN Last Admin: 02/03/17 00:10 Dose: 2 mg - Objective Vital Signs: Vital Signs Temperature 98.9 F 02/03/17 05:05 Pulse Rate 114 H 02/03/17 05:05 Respiratory Rate 20 02/03/17 05:05 Blood Pressure 106/63 02/03/17 05:05 O2 Sat by Pulse Oximetry (%) 97 02/02/17 21:00 Vital Signs (72 hours) 02/01/17 02/01/17 02/01/17 12:44 13:00 14:00 Temperature 104 F H 104 F H Pulse Rate 102 H 102 H Pulse Rate [ Apical] Pulse Rate [ Left Upper Arm] Respiratory 38 H 35 H Rate Respiratory Rate [Left Upper Arm] Blood Pressure 140/78 140/75 Blood Pressure [Left Upper Arm ] Blood Pressure [Right Arm] O2 Sat by Pulse 98 98 98 Oximetry (%) O2 Sat by Pulse Oximetry (%) [ Left Upper Arm] 02/01/17 02/01/17 02/01/17 15:30 15:35 16:37 Temperature 98.1 F 98.8 F Pulse Rate 109 H Pulse Rate [ 84 Apical] Pulse Rate [ Left Upper Arm] Respiratory 18 28 H 29 H Rate Respiratory Rate [Left Upper Arm] Blood Pressure 134/92 Blood Pressure [Left Upper Arm ] Blood Pressure 124/62 [Right Arm] O2 Sat by Pulse 96 Oximetry (%) O2 Sat by Pulse Oximetry (%) [ Left Upper Arm] 02/01/17 02/02/17 02/02/17 21:00 03:27 09:01 Temperature 98.1 F 103.1 F H Pulse Rate Pulse Rate [ 85 82 62 Apical] Pulse Rate [ Left Upper Arm] Respiratory 28 H 26 H 17 Rate Respiratory Rate [Left Upper Arm] Blood Pressure Blood Pressure [Left Upper Arm ] Blood Pressure 110/59 118/72 180/77 [Right Arm] O2 Sat by Pulse 96 99 96 Oximetry (%) O2 Sat by Pulse Oximetry (%) [ Left Upper Arm] 02/02/17 02/02/17 02/02/17 09:24 10:04 10:14 Temperature Pulse Rate 117 H Pulse Rate [ Apical] Pulse Rate [ 112 H 111 H Left Upper Arm] Respiratory 18 Rate Respiratory 16 16 Rate [Left Upper Arm] Blood Pressure 119/52 Blood Pressure 113/55 119/95 [Left Upper Arm ] Blood Pressure [Right Arm] O2 Sat by Pulse 96 Oximetry (%) O2 Sat by Pulse 100 100 Oximetry (%) [ Left Upper Arm] 02/02/17 02/02/17 02/02/17 10:24 10:34 10:44 Temperature Pulse Rate Pulse Rate [ Apical] Pulse Rate [ 111 H 107 H 107 H Left Upper Arm] Respiratory Rate Respiratory 16 16 16 Rate [Left Upper Arm] Blood Pressure Blood Pressure 138/55 124/61 124/60 [Left Upper Arm ] Blood Pressure [Right Arm] O2 Sat by Pulse Oximetry (%) O2 Sat by Pulse 100 100 100 Oximetry (%) [ Left Upper Arm] 02/02/17 02/02/17 02/02/17 10:54 11:04 11:14 Temperature Pulse Rate 85 Pulse Rate [ Apical] Pulse Rate [ 97 H 111 H Left Upper Arm] Respiratory 16 Rate Respiratory 17 16 Rate [Left Upper Arm] Blood Pressure 136/62 Blood Pressure 129/55 129/55 [Left Upper Arm ] Blood Pressure [Right Arm] O2 Sat by Pulse 100 Oximetry (%) O2 Sat by Pulse 100 100 Oximetry (%) [ Left Upper Arm] 02/02/17 02/02/17 02/02/17 11:47 12:15 13:30 Temperature 99.9 F H Pulse Rate Pulse Rate [ 89 Apical] Pulse Rate [ Left Upper Arm] Respiratory 19 Rate Respiratory Rate [Left Upper Arm] Blood Pressure Blood Pressure [Left Upper Arm ] Blood Pressure 102/71 [Right Arm] O2 Sat by Pulse 97 97 Oximetry (%) O2 Sat by Pulse Oximetry (%) [ Left Upper Arm] 02/02/17 02/02/17 02/02/17 17:00 20:48 21:00 Temperature 98.9 F 97.5 F L Pulse Rate 111 H 109 H Pulse Rate [ Apical] Pulse Rate [ Left Upper Arm] Respiratory 18 20 Rate Respiratory Rate [Left Upper Arm] Blood Pressure 125/95 97/49 Blood Pressure [Left Upper Arm ] Blood Pressure [Right Arm] O2 Sat by Pulse 97 Oximetry (%) O2 Sat by Pulse Oximetry (%) [ Left Upper Arm] 02/02/17 02/03/17 02/03/17 22:00 00:08 02:00 Temperature 99.9 F H 99.3 F Pulse Rate 110 H 118 H 123 H Pulse Rate [ Apical] Pulse Rate [ Left Upper Arm] Respiratory 20 22 20 Rate Respiratory Rate [Left Upper Arm] Blood Pressure 137/53 111/44 114/43 Blood Pressure [Left Upper Arm ] Blood Pressure [Right Arm] O2 Sat by Pulse Oximetry (%) O2 Sat by Pulse Oximetry (%) [ Left Upper Arm] 02/03/17 05:05 Temperature 98.9 F Pulse Rate 114 H Pulse Rate [ Apical] Pulse Rate [ Left Upper Arm] Respiratory 20 Rate Respiratory Rate [Left Upper Arm] Blood Pressure 106/63 Blood Pressure [Left Upper Arm ] Blood Pressure [Right Arm] O2 Sat by Pulse Oximetry (%) O2 Sat by Pulse Oximetry (%) [ Left Upper Arm] Constitutional: Yes: Calm Eyes: Yes: Conjunctiva Clear HENT: Yes: Atraumatic Neck: Yes: Supple Gastrointestinal: Yes: Normal Bowel Sounds, Soft, Other (about 50 cc dark-green liquid in [facility]) Labs: CBC, BMP 02/02/17 17:00 02/03/17 05:12 INR, PTT INR 1.18 (0.82-1.09) H 02/01/17 12:55 CBCD WBC 8.1 K/mm3 (4.0-10.0) 02/02/17 17:00 RBC 2.85 M/mm3 (4.00-5.60) L D 02/02/17 17:00 Hgb 9.5 GM/dL (11.7-16.9) L D 02/02/17 17:00 Hct 28.2 % (35.4-49) L D 02/02/17 17:00 MCV 98.8 fl (80-96) H 02/02/17 17:00 MCHC 33.8 g/dl (32.0-35.9) 02/02/17 17:00 RDW 14.3 % (11.9-15.9) 02/02/17 17:00 Plt Count 68 K/MM3 (134-434) L 02/02/17 17:00 MPV 11.1 fl (7.5-11.1) D 02/02/17 17:00 CMP Sodium 150 mmol/L (136-145) H 02/03/17 05:12 Potassium 3.6 mmol/L (3.5-5.1) 02/03/17 05:12 Chloride 119 mmol/L (98-107) H 02/03/17 05:12 Carbon Dioxide 22 mmol/L (21-32) 02/03/17 05:12 Anion Gap 9 (8-16) 02/03/17 05:12 BUN 77 mg/dL (7-18) H 02/03/17 05:12 Creatinine 2.4 mg/dL (0.7-1.3) H D 02/03/17 05:12 Creat Clearance w eGFR 38.32 (>60) 02/02/17 07:49 Calcium 6.9 mg/dL (8.5-10.1) L* 02/03/17 05:12 Total Bilirubin 4.3 mg/dL (0.2-1.0) H 02/02/17 17:00 AST 233 U/L (15-37) H D 02/02/17 17:00 ALT 277 U/L (12-78) H 02/02/17 17:00 Alkaline Phosphatase 133 U/L (45-117) H D 02/02/17 17:00 Total Protein 4.4 g/dl (6.4-8.2) L D 02/02/17 17:00 Albumin 1.7 g/dl (3.4-5.0) L D 02/02/17 17:00 CBCD WBC 7.3 K/mm3 (4.0-10.0) 02/03/17 06:00 RBC 2.70 M/mm3 (4.00-5.60) L 02/03/17 06:00 Hgb 9.0 GM/dL (11.7-16.9) L 02/03/17 06:00 Hct 26.8 % (35.4-49) L 02/03/17 06:00 MCV 99.3 fl (80-96) H 02/03/17 06:00 MCHC 33.7 g/dl (32.0-35.9) 02/03/17 06:00 RDW 14.2 % (11.9-15.9) 02/03/17 06:00 Plt Count 64 K/MM3 (134-434) L 02/03/17 06:00 MPV 11.1 fl (7.5-11.1) 02/03/17 06:00 CMP Sodium 150 mmol/L (136-145) H 02/03/17 05:12 Potassium 3.6 mmol/L (3.5-5.1) 02/03/17 05:12 Chloride 119 mmol/L (98-107) H 02/03/17 05:12 Carbon Dioxide 22 mmol/L (21-32) 02/03/17 05:12 Anion Gap 9 (8-16) 02/03/17 05:12 BUN 77 mg/dL (7-18) H 02/03/17 05:12 Creatinine 2.4 mg/dL (0.7-1.3) H D 02/03/17 05:12 Creat Clearance w eGFR 38.32 (>60) 02/02/17 07:49 Calcium 6.9 mg/dL (8.5-10.1) L* 02/03/17 05:12 Total Bilirubin 4.3 mg/dL (0.2-1.0) H 02/03/17 05:12 AST 243 U/L (15-37) H 02/03/17 05:12 ALT 286 U/L (12-78) H 02/03/17 05:12 Alkaline Phosphatase 122 U/L (45-117) H 02/03/17 05:12 Total Protein 4.7 g/dl (6.4-8.2) L 02/03/17 05:12 Albumin 1.8 g/dl (3.4-5.0) L 02/03/17 05:12 Problem List - Problems (1) Cholangitis due to bile duct calculus with obstruction Code(s): K80.31 - CALCULUS OF BILE DUCT W CHOLANGITIS, UNSP, WITH OBSTRUCTION (2) Choledocholithiasis with obstruction Code(s): K80.51 - CALCULUS OF BILE DUCT W/O CHOLANGITIS OR CHOLECYST W OBST (3) Cholelithiasis Code(s): K80.20 - CALCULUS OF GALLBLADDER W/O CHOLECYSTITIS W/O OBSTRUCTION Assessment/Plan Cholangitis in a debilitated patient. Family wants minimally invasive options. S /p PC. Liver enzymes, bili an dalp show no significant improvement overnight. the CBD is likely not being drained by PC. As discussed with IR: Obtain stat CT abdomen. Type & cross. Plt transfusion and reattempt to canulate the ducts.
--- NOTE | 2017-02-03 08:19 | PN ---
Progress Note (short form) - Note Progress Note: Responded to anesthesia stat call for unresponsive hypoxemia. Upon arrival, pt is somnolent, with O2 sat in 70s on a non rebreather. BP 140s/80s, HR in 90s, strong pulse. Per other providers present, pt is NPO, and has no advanced directives in place. Pre-O2 with ambubag, atraumatic DL with MAC4 blade, 8.0 ETT placed under direct visualization, confirmed with positive ETCO2 and equal bilateral breath sounds. Post intubation VS 110/60, HR 80s, O2 Sat 100. To be transferred to ICU.
[2017-02-03] MEDS: PROPOFOL 100 ML IVPB SCH (08:30)
--- NOTE | 2017-02-03 08:37 | RAPID ---
Physical Examination Vital Signs: RR called at 7:43 AM. RR team responded immediately. Patient was noted to be short of breath. O2 sat is 74% on 100 NRB mask. IV Fluids were stopped. Pulse noted in 100s. O2 sats remained in 70s. Anesthesia was called STAT, arrived immediately. Patient was unable to protect his airways, and the decision was made to intubate him. Anesthesia intubated the patient successfully with propofol induction. S/p intubation Vital SIgns: BP - 121/77 HR - 98 O2 - 100% Dr. Spring was notified. Patient was transferred to the ICU.
[2017-02-03 08:56] LABS: BASOPHIL 0.1 % (0-2.0); EOSINOPHIL 0.3 % (0-4.5); MCH 33.4 pg (25.7-33.7); MCHC 33.7 g/dl (32.0-35.9); MEAN CELL VOLUME 99.3 fl (80-96); MEAN PLT VOLUME 11.1 fl (7.5-11.1); NEUTROPHILS 90.2 % (42.8-82.8); PLATELET COUNT 64 K/MM3 (134-434); RDW 14.2 % (11.9-15.9); WHITE BLOOD COUNT 7.3 K/mm3 (4.0-10.0)
--- NOTE | 2017-02-03 08:57 | PN ---
Progress Note, Physician Chief Complaint: seen and examined in ICU Intubated earlier for respiratory distress, failure On AC mode, PEEP 10 with 100% FIO2 s/p perc cholecyst. tube TELE: NSR, sinus tach and periods of short, self limited NSVT (max 3 beats) - Current Medication List Current Medications: Active Medications Chlorhexidine Gluconate (Hibiclens For Decolonization -) 1 applic TP HS HOANG Enoxaparin Sodium (Lovenox -) 40 mg SQ DAILY HOANG Sodium Chloride (Normal Saline -) 1,000 mls @ 125 mls/hr IV ASDIR HOANG Last Admin: 02/01/17 17:30 Dose: 125 mls/hr Piperacillin/Tazobactam/Dextrose (Zosyn 2.25gm Ivpb (Premix)) 50 mls @ 100 mls/ hr IVPB Q8H-IV HOANG PRN Reason: Protocol Last Admin: 02/03/17 02:03 Dose: 100 mls/hr Dextrose/Sodium Chloride (D5-1/2ns -) 1,000 mls @ 83 mls/hr IV ASDIR HOANG Last Admin: 02/02/17 14:55 Dose: 83 mls/hr Propofol (Diprivan -) 100 mls @ 2.722 mls/hr IVPB TITR HOANG; 5 MCG/KG/MIN PRN Reason: Protocol Morphine Sulfate (Morphine Injection -) 2 mg IVPUSH Q4H PRN PRN Reason: PAIN Last Admin: 02/03/17 00:10 Dose: 2 mg Mupirocin (Bactroban Ointment (For Decolonization) -) 1 applic NS BID [facility] Stop: 02/08/17 09:59 Pantoprazole Sodium (Protonix Iv) 40 mg IVPUSH DAILY [facility] - Objective Vital Signs: Vital Signs Temperature 98.9 F 02/03/17 05:05 Pulse Rate 120 H 02/03/17 08:15 Respiratory Rate 16 02/03/17 08:15 Blood Pressure 112/73 02/03/17 08:00 O2 Sat by Pulse Oximetry (%) 100 02/03/17 08:15 Constitutional: Yes: Other (+ ETT) Cardiovascular: Yes: Tachycardia Respiratory: Yes: CTA Bilaterally Gastrointestinal: Yes: Soft, Other (Perc. Cholecystostomy drain with dark bilious drainage) Edema: No Neurological: Yes: Other (sedated on propofol) Labs: CBC, BMP 02/03/17 05:12 INR, PTT INR 1.18 (0.82-1.09) H 02/01/17 12:55 Laboratory Tests 02/03/17 02/03/17 05:12 06:00 WBC Pending Hgb Pending Hct Pending Plt Count Pending Sodium 150 H Potassium 3.6 BUN 77 H Creatinine 2.4 H D Calcium 6.9 L* - ....Imaging Chest X-ray: Pending EKG: Image Reviewed Assessment/Plan Sepsis, gram negative Choledocholithiasis, s/p perc. 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 This is not an acute [place]. -Await echo
[2017-02-03 09:09] LABS: INR 1.34 (0.82-1.09); PROTHROMBIN TIME (PATIENT) 15.1 SEC (9.98-11.88)
[2017-02-03 09:12] LABS: ACTIVATED PTT 28.3 SECONDS (26.9-34.4)
[2017-02-03 09:15] LABS: ALBUMIN 1.8 g/dl (3.4-5.0); BILIRUBIN,DIRECT 3.8 mg/dL (0.0-0.2); MAGNESIUM 2.3 mg/dL (1.8-2.4); PHOSPHOROUS 2.4 mg/dL (2.5-4.9); SGOT/AST 243 U/L (15-37); SGPT/ALT 286 U/L (12-78)
[2017-02-03 09:31] LABS: ALK PHOS 122 U/L (45-117); BILIRUBIN,TOTAL 4.3 mg/dL (0.2-1.0); CPK 771 IU/L (39-308); TOT PROT 4.7 g/dl (6.4-8.2)
[2017-02-03 09:37] LABS: ARTERIAL BLOOD GAS BASE EXCESS -3.8 meq/l (-2-2); ARTERIAL BLOOD GAS HCO3 20.5 meq/L (22-26); ARTERIAL BLOOD GAS pH 7.37 (7.35-7.45)
[2017-02-03 09:39] LABS: ALLENS TEST POSITIVE; ART PUNCT SITE RIGHT RADIAL; PT. ON O2? 100; TYPE OF O2 MECHANICAL VENT
[2017-02-03 09:40] LABS: MECH. VENT. YES; VENT RATE 12; VT/PRESS 400
[2017-02-03 09:49] LABS: TROPONIN I 0.51 ng/ml (0.00-0.05)
[2017-02-03] MEDS ORDERED: ENOXAPARIN NA (PORCINE) 40 MG/0.4 ML DISP.SYRIN SQ SCH (10:00)
[2017-02-03] MEDS: MUPIROCIN 2% TOPICAL OINTMENT FOR DECOLONIZATION NS SCH ×2 (10:15→22:25)
--- NOTE | 2017-02-03 10:32 | PN ---
Progress Note, Physician Chief Complaint: Events noted Pt went into respiratory failure , intubated , on Propofol spoke with ICU staff - Current Medication List Current Medications: Active Medications Chlorhexidine Gluconate (Hibiclens For Decolonization -) 1 applic TP HS [facility] Enoxaparin Sodium (Lovenox -) 40 mg SQ DAILY [facility] Sodium Chloride (Normal Saline -) 1,000 mls @ 125 mls/hr IV ASDIR [facility] Last Admin: 02/01/17 17:30 Dose: 125 mls/hr Piperacillin/Tazobactam/Dextrose (Zosyn 2.25gm Ivpb (Premix)) 50 mls @ 100 mls/ hr IVPB Q8H-IV HOANG PRN Reason: Protocol Last Admin: 02/03/17 10:13 Dose: 100 mls/hr Dextrose/Sodium Chloride (D5-1/2ns -) 1,000 mls @ 83 mls/hr IV ASDIR HOANG Last Admin: 02/02/17 14:55 Dose: 83 mls/hr Propofol (Diprivan -) 100 mls @ 2.722 mls/hr IVPB TITR HOANG; 5 MCG/KG/MIN PRN Reason: Protocol Last Titration: 02/03/17 09:00 Dose: 10.6 mcg/kg/min Morphine Sulfate (Morphine Injection -) 2 mg IVPUSH Q4H PRN PRN Reason: PAIN Last Admin: 02/03/17 00:10 Dose: 2 mg Mupirocin (Bactroban Ointment (For Decolonization) -) 1 applic NS BID [facility] Stop: 02/08/17 09:59 Last Admin: 02/03/17 10:15 Dose: 1 applic Pantoprazole Sodium (Protonix Iv) 40 mg IVPUSH DAILY [facility] - Objective Vital Signs: Vital Signs Temperature 98.9 F 02/03/17 05:05 Pulse Rate 120 H 02/03/17 08:15 Respiratory Rate 16 02/03/17 08:15 Blood Pressure 112/73 02/03/17 08:00 O2 Sat by Pulse Oximetry (%) 100 02/03/17 08:15 Constitutional: Yes: No Distress, Other (intubated) Cardiovascular: Yes: Regular Rate and Rhythm Respiratory: Yes: Diminished Gastrointestinal: Yes: Normal Bowel Sounds, Soft, Other (Percutaneous cholecystostomy+) Edema: No Psychiatric: Yes: Other (sedated) Labs: CBC, BMP 02/03/17 06:00 02/03/17 05:12 INR, PTT INR 1.34 (0.82-1.09) H 02/03/17 06:00 - ....Imaging Chest X-ray: Image Reviewed Problem List - Problems (1) Calculus of gallbladder 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 Code(s): K80.67 - CALCULUS OF GB AND BILE DUCT W AC AND CHR CHOLECYST W OBST (2) Cholangitis due to bile duct calculus with obstruction Code(s): K80.31 - CALCULUS OF BILE DUCT W CHOLANGITIS, UNSP, WITH OBSTRUCTION (3) Choledocholithiasis with obstruction Code(s): K80.51 - CALCULUS OF BILE DUCT W/O CHOLANGITIS OR CHOLECYST W OBST (4) Dementia with behavioral disturbance Code(s): F03.91 - UNSPECIFIED DEMENTIA WITH BEHAVIORAL DISTURBANCE Qualifiers : Dementia type: unspecified type Qualified Code(s): F03.91 - Unspecified dementia with behavioral disturbance; F03.91 - Unspecified dementia with behavioral disturbance; F03.91 - Unspecified dementia with behavioral disturbance (5) Elevated liver function tests Code(s): R79.89 - OTHER SPECIFIED ABNORMAL FINDINGS OF BLOOD CHEMISTRY (6) Hypertension Code(s): I10 - ESSENTIAL (PRIMARY) HYPERTENSION Qualifiers: Hypertension type: essential hypertension Qualified Code(s): I10 - Essential (primary) hypertension; I10 - Essential (primary) hypertension; I10 - Essential (primary) hypertension (7) Severe sepsis Code(s): A41.9 - SEPSIS, UNSPECIFIED ORGANISM R65.20 - SEVERE SEPSIS WITHOUT SEPTIC SHOCK Assessment/Plan PLAN s/p percutaneous cholecystomy IV antibiotics keep NPO IV fluids LFTs about the same renal function worse not much urine output-- likley due to sepsis Renal consult spoke with son not on pressors continue vent support DVT prophylaxis-- Lovenox sc
[2017-02-03] MEDS: PANTOPRAZOLE SODIUM 40 MG VIAL IVPUSH SCH (10:59)
[2017-02-03] MEDS ORDERED: SODIUM CHLORIDE 1,000 ML IV STA ×2 (11:28→14:05)
--- NOTE | 2017-02-03 12:00 | PN ---
Physical Exam: SUBJECTIVE: Patient seen and examined at bedside. Intubated and sedated. Pt was just transferred from floors after a hypoxic episode following drain placement. Pt is currently stable. OBJECTIVE: Vital Signs Period Temp Pulse Resp BP Sys/Hernandez Pulse Ox Last 24 Hr 97.5 F-100.4 F 92-123 16-22 94-137/43-95 97-100 GENERAL: The patient is intubated and sedated in no apparent distress. HEAD: Normal with no signs of trauma. EYES: PERRL, extraocular movements intact, sclera anicteric, conjunctiva clear. No ptosis. ENT: Ears normal, nares patent, oropharynx clear without exudates, moist mucous membranes. NECK: Trachea midline, full range of motion, supple. LUNGS: Breath sounds equal, clear to auscultation bilaterally, no wheezes, no crackles, no accessory muscle use. HEART: Regular rate and rhythm, S1, S2 without murmur, rub or gallop. ABDOMEN: Soft, nontender, nondistended, normoactive bowel sounds, no guarding, no rebound, no hepatosplenomegaly, no masses. EXTREMITIES: 2+ pulses, warm, well-perfused, no edema. NEUROLOGICAL: Cranial nerves II through XII grossly intact. Normal speech, gait not observed. PSYCH: Normal mood, normal affect. SKIN: Warm, dry, normal turgor, no rashes or lesions noted Laboratory Results - last 24 hr 02/02/17 02/02/17 02/02/17 16:42 17:00 17:00 WBC 8.1 RBC 2.85 L D Hgb 9.5 L D Hct 28.2 L D MCV 98.8 H MCH 33.4 MCHC 33.8 RDW 14.3 Plt Count 68 L MPV 11.1 D Neutrophils % 91.6 H Lymphocytes % 4.5 L D Monocytes % 3.8 D Eosinophils % 0.0 Basophils % 0.1 PT with INR INR PTT (Actin FS) Puncture Site ABG pH ABG pCO2 at Pt Temp ABG pO2 at Pt Temp ABG HCO3 ABG O2 Sat (Measured) ABG O2 Content ABG Base Excess [place] Test O2 Delivery Device Oxygen Flow Rate Vent Mode Vent Rate Mechanical Rate PEEP Pressure Support Vent Sodium Potassium Chloride Carbon Dioxide Anion Gap BUN Creatinine Creat Clearance w eGFR Random Glucose Lactic Acid Calcium Phosphorus Magnesium Total Bilirubin 4.3 H Direct Bilirubin 3.7 H AST 233 H D ALT 277 H Alkaline Phosphatase 133 H D Creatine Kinase Creatine Kinase Index CK-MB (CK-2) Troponin I Total Protein 4.4 L D Albumin 1.7 L D Lipase 560 H 02/03/17 02/03/17 02/03/17 05:12 05:12 06:00 WBC RBC Hgb Hct MCV MCH MCHC RDW Plt Count MPV Neutrophils % Lymphocytes % Monocytes % Eosinophils % Basophils % PT with INR INR PTT (Actin FS) Puncture Site ABG pH ABG pCO2 at Pt Temp ABG pO2 at Pt Temp ABG HCO3 ABG O2 Sat (Measured) ABG O2 Content ABG Base Excess [place] Test O2 Delivery Device Oxygen Flow Rate Vent Mode Vent Rate Mechanical Rate PEEP Pressure Support Vent Sodium 150 H Potassium 3.6 Chloride 119 H Carbon Dioxide 22 Anion Gap 9 BUN 77 H Creatinine 2.4 H D Creat Clearance w eGFR Y Random Glucose 143 H D Lactic Acid Calcium 6.9 L* Phosphorus 2.4 L Magnesium 2.3 Cancelled Total Bilirubin 4.3 H Cancelled Direct Bilirubin 3.8 H Cancelled AST 243 H Cancelled ALT 286 H Cancelled Alkaline Phosphatase 122 H Cancelled Creatine Kinase 771 H Creatine Kinase Index 0.7 CK-MB (CK-2) 5.923 H Troponin I 0.51 H D Total Protein 4.7 L Cancelled Albumin 1.8 L Cancelled Lipase 56 L 02/03/17 02/03/17 02/03/17 06:00 06:00 06:00 WBC 7.3 RBC 2.70 L Hgb 9.0 L Hct 26.8 L MCV 99.3 H MCH 33.4 MCHC 33.7 RDW 14.2 Plt Count 64 L MPV 11.1 Neutrophils % 90.2 H Lymphocytes % 6.2 L D Monocytes % 3.2 L Eosinophils % 0.3 D Basophils % 0.1 PT with INR INR PTT (Actin FS) Puncture Site ABG pH ABG pCO2 at Pt Temp ABG pO2 at Pt Temp ABG HCO3 ABG O2 Sat (Measured) ABG O2 Content ABG Base Excess [place] Test O2 Delivery Device Oxygen Flow Rate Vent Mode Vent Rate Mechanical Rate PEEP Pressure Support Vent Sodium Potassium Chloride Carbon Dioxide Anion Gap BUN Creatinine Creat Clearance w eGFR Random Glucose Lactic Acid Calcium Phosphorus Cancelled Magnesium Cancelled Total Bilirubin Direct Bilirubin AST ALT Alkaline Phosphatase Creatine Kinase Creatine Kinase Index CK-MB (CK-2) Troponin I Total Protein Albumin Lipase Cancelled 02/03/17 02/03/17 02/03/17 06:00 06:00 06:00 WBC RBC Hgb Hct MCV MCH MCHC RDW Plt Count MPV Neutrophils % Lymphocytes % Monocytes % Eosinophils % Basophils % PT with INR 15.10 H INR 1.34 H PTT (Actin FS) 28.3 Puncture Site ABG pH ABG pCO2 at Pt Temp ABG pO2 at Pt Temp ABG HCO3 ABG O2 Sat (Measured) ABG O2 Content ABG Base Excess [place] Test O2 Delivery Device Oxygen Flow Rate Vent Mode Vent Rate Mechanical Rate PEEP Pressure Support Vent Sodium Potassium Chloride Carbon Dioxide Anion Gap BUN Creatinine Creat Clearance w eGFR Random Glucose Lactic Acid Calcium Cancelled Phosphorus Magnesium Total Bilirubin Direct Bilirubin AST ALT Alkaline Phosphatase Creatine Kinase Cancelled Creatine Kinase Index CK-MB (CK-2) Troponin I Cancelled Total Protein Albumin Lipase 02/03/17 02/03/17 09:25 09:31 WBC RBC Hgb Hct MCV MCH MCHC RDW Plt Count MPV Neutrophils % Lymphocytes % Monocytes % Eosinophils % Basophils % PT with INR INR PTT (Actin FS) Puncture Site Right radial ABG pH 7.37 ABG pCO2 at Pt Temp 36.6 ABG pO2 at Pt Temp 408.0 H* ABG HCO3 20.5 L ABG O2 Sat (Measured) 100.0 H* ABG O2 Content 14.6 L ABG Base Excess -3.8 L [place] Test Positive O2 Delivery Device Mechanical vent Oxygen Flow Rate 100 Vent Mode A/c Vent Rate 12 Mechanical Rate Yes PEEP 5.0 Pressure Support Vent 400 Sodium Potassium Chloride Carbon Dioxide Anion Gap BUN Creatinine Creat Clearance w eGFR Random Glucose Lactic Acid 1.7 Calcium Phosphorus Magnesium Total Bilirubin Direct Bilirubin AST ALT Alkaline Phosphatase Creatine Kinase Creatine Kinase Index CK-MB (CK-2) Troponin I Total Protein Albumin Lipase Active Medications Generic Name Dose Route Start Last Admin Trade Name Freq PRN Reason Stop Dose Admin Chlorhexidine Gluconate 1 applic 02/03/17 22:00 Hibiclens For Decolonization - TP HS HOANG Enoxaparin Sodium 40 mg 02/03/17 10:00 02/03/17 11:01 Lovenox - SQ 40 mg DAILY HOANG Administration Sodium Chloride 1,000 mls @ 125 mls/hr 02/01/17 17:00 02/01/17 17:30 Normal Saline - IV 125 mls/hr ASDIR HOANG Administration Piperacillin/Tazobactam/Dextrose 50 mls @ 100 mls/hr 02/02/17 02:00 02/03/17 10 :13 Zosyn 2.25gm Ivpb (Premix) IVPB 100 mls/hr Q8H-IV HOANG Administration Protocol Dextrose/Sodium Chloride 1,000 mls @ 83 mls/hr 02/02/17 13:45 02/02/17 14:55 D5-1/2ns - IV 83 mls/hr ASDIR HOANG Administration Propofol 100 mls @ 2.722 mls/hr 02/03/17 09:00 02/03/17 09:00 Diprivan - IVPB 10.6 mcg/kg/min TITR HOANG Titration Protocol 5 MCG/KG/MIN Sodium Chloride 1,000 mls @ 1,000 mls/hr 02/03/17 11:28 Normal Saline - IV 02/03/17 12:27 ASDIR STA Morphine Sulfate 2 mg 02/02/17 13:33 02/03/17 00:10 Morphine Injection - IVPUSH 2 mg Q4H PRN Administration PAIN Mupirocin 1 applic 02/03/17 10:00 02/03/17 10:15 Bactroban Ointment (For Decolonization) - NS 02/08/17 09:59 1 applic BID HOANG Administration Pantoprazole Sodium 40 mg 02/03/17 10:00 02/03/17 10:59 Protonix Iv IVPUSH 40 mg DAILY HOANG Administration ASSESSMENT/PLAN: 86M w/ PMH Alzheimer's, Vitamin B12 deficiency, HTN, Depression, Bipolar, Dementia, Osteoarthritis admitted with ascending cholangitis and fever. Pt had GB drain placed and subsequently had a hypoxemic episode leading to transfer to ICU. #r/o cholangitis -increased LFTs and Bili -went for IR drain placement yest -g neg ena from drain -draining slowly -bili has not dropped dramatically since drain placement -pt will go to IR tomorrow for revision/replacement of drain -GI on board #anemia -Hb dropped from 13 to 9 yest and from 9 to 7.8 today -2 prbcs -r/o liver collection #severe sepsis 2/2 bacteremia w/ Klebsiella -Klebsiella on BCx -NS -meropenem single dose -zosyn -ID on board #Acute on chronic resp failure -pt intubated at this time -continue sedation #JUAN J -Die [employer] Bench Stamping 2.5 up from 1.7 -Pt receiving NS -f/u labs #FEN -NS @ 1,000 -hypernatremic, hyperchloremic on NS -NPO #PPx -hold lovenox in setting of Hb drop -protonix #Dispo -admitted to ICU Pt's son Sunday to be contacted: [phone] Visit type - Emergency Visit Emergency Visit: No - New Patient This patient is new to me today: Yes Date on this admission: 02/03/17 - Critical Care Critical Care patient: Yes Total Critical Care Time (in minutes): 35 Critical Care Statement: The care of this patient involved high complexity decision making to prevent further life threatening deterioration of the patient 's condition and/or to evaluate & treat vital organ system(s) failure or risk of failure. - Discharge Referral Referred to [facility] No
--- NOTE | 2017-02-03 12:36 | EKG ---
Test Reason : Blood Pressure : / mmHG Vent. Rate : 097 BPM Atrial Rate : 097 BPM P-R Int : 146 ms QRS Dur : 088 ms QT Int : 354 ms P-R-T Axes : 036 -44 007 degrees QTc Int : 449 ms NORMAL SINUS RHYTHM LEFT AXIS DEVIATION INFERIOR INFARCT (CITED ON OR BEFORE 01-FEB-2017) ABNORMAL ECG WHEN COMPARED WITH ECG OF 01-FEB-2017 13:53, CRITERIA FOR ANTERIOR INFARCT ARE NO LONGER PRESENT NONSPECIFIC T WAVE ABNORMALITY NO LONGER EVIDENT IN ANTERIOR LEADS Confirmed by SHERIE JAIN MD ([id number]) on 02/03/2017 12:35:42 PM Referred By: Confirmed By:SHERIE JAIN MD
--- NOTE | 2017-02-03 12:43 | CONSULT ---
Consultation: REQUESTING PROVIDER: Dr. Leone CONSULT REQUEST: We have been asked to medically evaluate this patient for NEPHROLOGY. HISTORY OF PRESENT ILLNESS: Pt is currently sedated, intubated, and on vent. History obtained from chart records. Pt transferred to ICU this morning after rapid response due to labored breathing, tachycardia, tachypnea, which resulted in pt requiring intubation. Pt is an 86 y/o M w/sig PMH of Alzheimer's, Vitamin B12 deficiency, HTN, Depression, Bipolar, Dementia, Osteoarthritis who presented from [facility] for fever of 104 F in [place]. Found to have choledocholithiasis w/cholecystitis and had percutaneous cholecystostomy placed on 02/02 as pt was not surgically candidate for cholecystectomy. Pt had rapid response as described above and on labs was found to have worsening renal function on AM labs. PMH: as per charts: Alzheimer's, Vitamin B12 deficiency, HTN, Depression, Bipolar, Dementia, Osteoarthritis Past surgical hx: unable to be obtained Social hx: from [facility] on [place] REVIEW OF SYSTEMS: unable to obtain as pt is sedated, intubated, on vent. PHYSICAL EXAMINATION Vital Signs Temperature 100.4 F H 02/03/17 10:00 Pulse Rate 92 H 02/03/17 10:50 Respiratory Rate 17 02/03/17 11:25 Blood Pressure 103/50 02/03/17 10:50 O2 Sat by Pulse Oximetry (%) 100 02/03/17 10:00 GENERAL: Sedated, intubated, on vent. EYES: Pupils equal, round and reactive to light EARS, NOSE, THROAT: Ears normal, nares patent LUNGS: Auscultated anteriorly. HEART: Tachycardic, normal S1 and S2+. ABDOMEN: Soft, CARMELITA drain in place LOWER EXTREMITIES: warm, well-perfused. NEUROLOGICAL: sedated. PSYCHIATRIC: sedated SKIN: Warm, dry Laboratory Results - last 24 hr 02/02/17 02/02/17 02/02/17 16:42 17:00 17:00 WBC 8.1 RBC 2.85 L D Hgb 9.5 L D Hct 28.2 L D MCV 98.8 H MCH 33.4 MCHC 33.8 RDW 14.3 Plt Count 68 L MPV 11.1 D Neutrophils % 91.6 H Lymphocytes % 4.5 L D Monocytes % 3.8 D Eosinophils % 0.0 Basophils % 0.1 PT with INR INR PTT (Actin FS) Puncture Site ABG pH ABG pCO2 at Pt Temp ABG pO2 at Pt Temp ABG HCO3 ABG O2 Sat (Measured) ABG O2 Content ABG Base Excess [place] Test O2 Delivery Device Oxygen Flow Rate Vent Mode Vent Rate Mechanical Rate PEEP Pressure Support Vent Sodium Potassium Chloride Carbon Dioxide Anion Gap BUN Creatinine Creat Clearance w eGFR Random Glucose Lactic Acid Calcium Phosphorus Magnesium Total Bilirubin 4.3 H Direct Bilirubin 3.7 H AST 233 H D ALT 277 H Alkaline Phosphatase 133 H D Creatine Kinase Creatine Kinase Index CK-MB (CK-2) Troponin I Total Protein 4.4 L D Albumin 1.7 L D Lipase 560 H 02/03/17 02/03/17 02/03/17 05:12 05:12 06:00 WBC RBC Hgb Hct MCV MCH MCHC RDW Plt Count MPV Neutrophils % Lymphocytes % Monocytes % Eosinophils % Basophils % PT with INR INR PTT (Actin FS) Puncture Site ABG pH ABG pCO2 at Pt Temp ABG pO2 at Pt Temp ABG HCO3 ABG O2 Sat (Measured) ABG O2 Content ABG Base Excess [place] Test O2 Delivery Device Oxygen Flow Rate Vent Mode Vent Rate Mechanical Rate PEEP Pressure Support Vent Sodium 150 H Potassium 3.6 Chloride 119 H Carbon Dioxide 22 Anion Gap 9 BUN 77 H Creatinine 2.4 H D Creat Clearance w eGFR Y Random Glucose 143 H D Lactic Acid Calcium 6.9 L* Phosphorus 2.4 L Magnesium 2.3 Cancelled Total Bilirubin 4.3 H Cancelled Direct Bilirubin 3.8 H Cancelled AST 243 H Cancelled ALT 286 H Cancelled Alkaline Phosphatase 122 H Cancelled Creatine Kinase 771 H Creatine Kinase Index 0.7 CK-MB (CK-2) 5.923 H Troponin I 0.51 H D Total Protein 4.7 L Cancelled Albumin 1.8 L Cancelled Lipase 56 L 02/03/17 02/03/17 02/03/17 06:00 06:00 06:00 WBC 7.3 RBC 2.70 L Hgb 9.0 L Hct 26.8 L MCV 99.3 H MCH 33.4 MCHC 33.7 RDW 14.2 Plt Count 64 L MPV 11.1 Neutrophils % 90.2 H Lymphocytes % 6.2 L D Monocytes % 3.2 L Eosinophils % 0.3 D Basophils % 0.1 PT with INR INR PTT (Actin FS) Puncture Site ABG pH ABG pCO2 at Pt Temp ABG pO2 at Pt Temp ABG HCO3 ABG O2 Sat (Measured) ABG O2 Content ABG Base Excess [place] Test O2 Delivery Device Oxygen Flow Rate Vent Mode Vent Rate Mechanical Rate PEEP Pressure Support Vent Sodium Potassium Chloride Carbon Dioxide Anion Gap BUN Creatinine Creat Clearance w eGFR Random Glucose Lactic Acid Calcium Phosphorus Cancelled Magnesium Cancelled Total Bilirubin Direct Bilirubin AST ALT Alkaline Phosphatase Creatine Kinase Creatine Kinase Index CK-MB (CK-2) Troponin I Total Protein Albumin Lipase Cancelled 02/03/17 02/03/17 02/03/17 06:00 06:00 06:00 WBC RBC Hgb Hct MCV MCH MCHC RDW Plt Count MPV Neutrophils % Lymphocytes % Monocytes % Eosinophils % Basophils % PT with INR 15.10 H INR 1.34 H PTT (Actin FS) 28.3 Puncture Site ABG pH ABG pCO2 at Pt Temp ABG pO2 at Pt Temp ABG HCO3 ABG O2 Sat (Measured) ABG O2 Content ABG Base Excess [place] Test O2 Delivery Device Oxygen Flow Rate Vent Mode Vent Rate Mechanical Rate PEEP Pressure Support Vent Sodium Potassium Chloride Carbon Dioxide Anion Gap BUN Creatinine Creat Clearance w eGFR Random Glucose Lactic Acid Calcium Cancelled Phosphorus Magnesium Total Bilirubin Direct Bilirubin AST ALT Alkaline Phosphatase Creatine Kinase Cancelled Creatine Kinase Index CK-MB (CK-2) Troponin I Cancelled Total Protein Albumin Lipase 02/03/17 02/03/17 09:25 09:31 WBC RBC Hgb Hct MCV MCH MCHC RDW Plt Count MPV Neutrophils % Lymphocytes % Monocytes % Eosinophils % Basophils % PT with INR INR PTT (Actin FS) Puncture Site Right radial ABG pH 7.37 ABG pCO2 at Pt Temp 36.6 ABG pO2 at Pt Temp 408.0 H* ABG HCO3 20.5 L ABG O2 Sat (Measured) 100.0 H* ABG O2 Content 14.6 L ABG Base Excess -3.8 L [place] Test Positive O2 Delivery Device Mechanical vent Oxygen Flow Rate 100 Vent Mode A/c Vent Rate 12 Mechanical Rate Yes PEEP 5.0 Pressure Support Vent 400 Sodium Potassium Chloride Carbon Dioxide Anion Gap BUN Creatinine Creat Clearance w eGFR Random Glucose Lactic Acid 1.7 Calcium Phosphorus Magnesium Total Bilirubin Direct Bilirubin AST ALT Alkaline Phosphatase Creatine Kinase Creatine Kinase Index CK-MB (CK-2) Troponin I Total Protein Albumin Lipase Active Medications Generic Name Dose Route Start Last Admin Trade Name Freq PRN Reason Stop Dose Admin Chlorhexidine Gluconate 1 applic 02/03/17 22:00 Hibiclens For Decolonization - TP HS HOANG Enoxaparin Sodium 40 mg 02/03/17 10:00 02/03/17 11:01 Lovenox - SQ 40 mg DAILY HOANG Administration Sodium Chloride 1,000 mls @ 125 mls/hr 02/01/17 17:00 02/01/17 17:30 Normal Saline - IV 125 mls/hr ASDIR HOANG Administration Piperacillin/Tazobactam/Dextrose 50 mls @ 100 mls/hr 02/02/17 02:00 02/03/17 10 :13 Zosyn 2.25gm Ivpb (Premix) IVPB 100 mls/hr Q8H-IV HOANG Administration Protocol Dextrose/Sodium Chloride 1,000 mls @ 83 mls/hr 02/02/17 13:45 02/02/17 14:55 D5-1/2ns - IV 83 mls/hr ASDIR HOANG Administration Propofol 100 mls @ 2.722 mls/hr 02/03/17 09:00 02/03/17 09:00 Diprivan - IVPB 10.6 mcg/kg/min TITR HOANG Titration Protocol 5 MCG/KG/MIN Morphine Sulfate 2 mg 02/02/17 13:33 02/03/17 00:10 Morphine Injection - IVPUSH 2 mg Q4H PRN Administration PAIN Mupirocin 1 applic 02/03/17 10:00 02/03/17 10:15 Bactroban Ointment (For Decolonization) - NS 02/08/17 09:59 1 applic BID HOANG Administration Pantoprazole Sodium 40 mg 02/03/17 10:00 02/03/17 10:59 Protonix Iv IVPUSH 40 mg DAILY HOANG Administration ASSESSMENT/PLAN: 86 y/o M w/sig PMH of Alzheimer's, Vitamin B12 deficiency, HTN, Depression, Bipolar, Dementia, Osteoarthritis who presented from [facility] for fever of 104 F in [place], found to have choledocholithiasis w/cholelithiasis and had percutaneous cholecystostomy placed. Hospital course complicated when pt became tachypneic, tachycardic, w/labored breathing, was intubated and transferred to ICU and found to have worsening renal failure. -JUAN J on possible CKD likely secondary to sepsis -no baseline Cr available -Cr now at 2.4 today compared to 1.7 yesterday. -UA, UCx, FENa (urine electrolytes, urine Cr), renal/bladder U/S ordered -monitor for other signs/sources of infection/sepsis -monitor Cr -c/w IVF, was given 1 L NS bolus earlier today. -abx as per ID -Acute respiratory failure (s/p rapid response this AM) -intubated, sedated, on propofol -management as per primary/icu team -Acute cholelithiasis w/choledocholithiasis -perc cholecystostomy in place -GI on board -monitor aminotransferases -Acute anemia -GI on board, monitor Hgb, pt for CT abd today to r/o intraabdominal bleed -Elevated trops -likely secondary to demand ischemia from sepsis, continue to trend. -cardio on case Dispo: We will continue to follow the patient. Thank you for this consultative opportunity. Visit type - Emergency Visit Emergency Visit: Yes ED Registration Date: 02/01/17 Care time: The patient presented to the Emergency Department on the above date and was hospitalized for further evaluation of their emergent condition. - New Patient This patient is new to me today: Yes Date on this admission: 02/03/17 - Critical Care Critical Care patient: Yes Total Critical Care Time (in minutes): 35 Critical Care Statement: The care of this patient involved high complexity decision making to prevent further life threatening deterioration of the patient 's condition and/or to evaluate & treat vital organ system(s) failure or risk of failure.
[2017-02-03 13:55] LABS: URINE APPEARANCE CLOUDY; URINE BLOOD 2+ (NEGATIVE); URINE COLOR AMBER; URINE GLUCOSE (UA) NEGATIVE (NEGATIVE); URINE KETONE NEGATIVE (NEGATIVE); URINE NITRITE NEGATIVE (NEGATIVE); URINE UROBILINOGEN NEGATIVE mg/dL (0.2-1.0)
[2017-02-03 14:20] LABS: URINE PROTEIN 1+ (NEGATIVE)
[2017-02-03 14:22] LABS: URINE BACTERIA RARE /hpf (NONE SEEN); URINE RBC 16 /hpf (0-3); URINE WBC 21 /hpf (3-5); YEAST FEW
--- NOTE | 2017-02-03 14:28 | PN ---
Progress Note, Physician History of Present Illness: events noted patient went into resp failure had to be intubated now in icu - Current Medication List Current Medications: Active Medications Chlorhexidine Gluconate (Hibiclens For Decolonization -) 1 applic TP HS [facility] Enoxaparin Sodium (Lovenox -) 40 mg SQ DAILY [facility] Last Admin: 02/03/17 11:01 Dose: 40 mg Sodium Chloride (Normal Saline -) 1,000 mls @ 125 mls/hr IV ASDIR HOANG Last Admin: 02/01/17 17:30 Dose: 125 mls/hr Piperacillin/Tazobactam/Dextrose (Zosyn 2.25gm Ivpb (Premix)) 50 mls @ 100 mls/ hr IVPB Q8H-IV HOANG PRN Reason: Protocol Last Admin: 02/03/17 10:13 Dose: 100 mls/hr Propofol (Diprivan -) 100 mls @ 2.722 mls/hr IVPB TITR HOANG; 5 MCG/KG/MIN PRN Reason: Protocol Last Titration: 02/03/17 09:00 Dose: 10.6 mcg/kg/min Sodium Chloride (Normal Saline -) 1,000 mls @ 1,000 mls/hr IV ASDIR STA Stop: 02/03/17 15:04 Morphine Sulfate (Morphine Injection -) 2 mg IVPUSH Q4H PRN PRN Reason: PAIN Last Admin: 02/03/17 00:10 Dose: 2 mg Mupirocin (Bactroban Ointment (For Decolonization) -) 1 applic NS BID HOANG Stop: 02/08/17 09:59 Last Admin: 02/03/17 10:15 Dose: 1 applic Pantoprazole Sodium (Protonix Iv) 40 mg IVPUSH DAILY [facility] Last Admin: 02/03/17 10:59 Dose: 40 mg - Objective Vital Signs: Vital Signs Temperature 98.8 F 02/03/17 13:05 Pulse Rate 90 02/03/17 13:05 Respiratory Rate 17 02/03/17 13:05 Blood Pressure 105/54 02/03/17 13:05 O2 Sat by Pulse Oximetry (%) 100 02/03/17 10:00 Constitutional: Yes: Other Cardiovascular: Yes: Regular Rate and Rhythm Respiratory: Yes: Intubated, Mechanically Ventilated, Other Gastrointestinal: Yes: Soft, Hypoactive Bowel Sounds, Other (cholytube in place) Musculoskeletal: Yes: WNL Extremities: Yes: WNL Neurological: Yes: Other Psychiatric: Yes: Other Labs: CBC, BMP 02/03/17 06:00 02/03/17 05:12 INR, PTT INR 1.34 (0.82-1.09) H 02/03/17 06:00 - ....Imaging Cat Scan: Report Reviewed, Image Reviewed Assessment/Plan Problem List - Problems (1) Calculus of gallbladder 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91 - Unspecified dementia with behavioral disturbance; F03.91 - Unspecified dementia with behavioral disturbance; F03.91 - Unspecified dementia with behavioral disturbance fever 6 gm negative bacteremia cx from the gb seen all cx noted plan continue vent support repeat blood cx ordered rest as per icu abx to continue ct scan seen and result noted cc time 40 min
[2017-02-03 15:20] LABS: BASOPHIL 0.1 % (0-2.0); EOSINOPHIL 1.2 % (0-4.5); MCHC 34.2 g/dl (32.0-35.9); MEAN CELL VOLUME 99.5 fl (80-96); MEAN PLT VOLUME 9.8 fl (7.5-11.1); NEUTROPHILS 89.6 % (42.8-82.8); PLATELET COUNT 94 K/MM3 (134-434); RDW 14.3 % (11.9-15.9); WHITE BLOOD COUNT 8.3 K/mm3 (4.0-10.0)
--- NOTE | 2017-02-03 15:47 | PN ---
Teaching Attending Note Name of Resident: Velasquez Byrne (Nephrology) ATTENDING PHYSICIAN STATEMENT I saw and evaluated the patient. I reviewed the resident's note and discussed the case with the resident. I agree with the resident's findings and plan as documented. Nephrology Consult Pt is an 86 year old male with history listed who was sent in from [place] with a fever. He was found to have choledocolithiasis with cholecystitis. He had a percutaneous cholecystostomy. I was called to evaluate him or JUAN J. Pt was intubated for resp failure this morning. pmhx Alzheimer's, Vitamin B12 deficiency, HTN, Depression, Bipolar, Dementia, Osteoarthritis family hx non contrib nkda social hx unclear, [place] resident ros pt intubated Current Medications Generic Name Dose Route Start Last Admin Trade Name Freq PRN Reason Stop Dose Admin Chlorhexidine Gluconate 1 applic 02/03/17 22:00 Hibiclens For Decolonization - TP HS HOANG Enoxaparin Sodium 40 mg 02/03/17 10:00 02/03/17 11:01 Lovenox - SQ 40 mg DAILY HOANG Administration Sodium Chloride 1,000 mls @ 125 mls/hr 02/01/17 17:00 02/01/17 17:30 Normal Saline - IV 125 mls/hr ASDIR HOANG Administration Piperacillin/Tazobactam/Dextrose 50 mls @ 100 mls/hr 02/02/17 02:00 02/03/17 10 :13 Zosyn 2.25gm Ivpb (Premix) IVPB 100 mls/hr Q8H-IV HOANG Administration Protocol Propofol 100 mls @ 2.722 mls/hr 02/03/17 09:00 02/03/17 09:00 Diprivan - IVPB 10.6 mcg/kg/min TITR HOANG Titration Protocol 5 MCG/KG/MIN Morphine Sulfate 2 mg 02/02/17 13:33 02/03/17 00:10 Morphine Injection - IVPUSH 2 mg Q4H PRN Administration PAIN Mupirocin 1 applic 02/03/17 10:00 02/03/17 10:15 Bactroban Ointment (For Decolonization) - NS 02/08/17 09:59 1 applic BID HOANG Administration Pantoprazole Sodium 40 mg 02/03/17 10:00 02/03/17 10:59 Protonix Iv IVPUSH 40 mg DAILY HOANG Administration Last Vital Signs Temp Pulse Resp BP Pulse Ox 98.8 F 90 14 105/54 100 02/03/17 13:05 02/03/17 13:05 02/03/17 14:25 02/03/17 13:05 02/03/17 10:00 Selected Entries 02/02/17 02/02/17 02/03/17 20:48 22:00 02:00 Blood Pressure 97/49 137/53 114/43 02/03/17 02/03/17 02/03/17 10:50 11:45 13:05 Blood Pressure 103/50 88/44 105/54 Laboratory Tests 02/01/17 02/01/17 02/01/17 12:52 13:35 14:10 Hgb Sodium 147 H Potassium Chloride Carbon Dioxide Anion Gap BUN Creatinine 2.1 H Lactic Acid 3.4 H* Calcium Albumin Urine Protein 2+ H Urine Blood 1+ H 02/01/17 02/02/17 02/02/17 23:30 07:49 17:00 Hgb 9.5 L D Sodium 149 H Potassium Chloride Carbon Dioxide Anion Gap BUN Creatinine 1.7 H Lactic Acid 1.8 Calcium Albumin Urine Protein Urine Blood 02/03/17 02/03/17 02/03/17 05:12 06:00 13:25 Hgb 9.0 L Sodium 150 H Potassium 3.6 Chloride 119 H Carbon Dioxide 22 Anion Gap 9 BUN 77 H Creatinine 2.4 H D Lactic Acid Calcium 6.9 L* Albumin 1.8 L Urine Protein 1+ H Urine Blood 2+ H cxr reviewed chart, labs meds reviewed cardio s1s2 pulm mechanically ventilated GI SOFT, cholecystostomy tube ext neg edema neuro lethargy skin neg rash circ pos pulses Impression 1. JUAN J 2. acute resp failure 3. sepsis 4. bacteremia 5. alzheimers 6. anemia 7. choledocholithiasis Plan - check renal ultrasound - send urine lytes and tree trimmer - cont fluids - cxr - vent support - cont abx - etiology of juan j likley sepsis and atn - will need to review outpt labs to check baseline creatinine Dr Haynes
--- NOTE | 2017-02-03 15:54 | PN ---
Teaching Attending Note Name of Resident: Mello Baig ATTENDING PHYSICIAN STATEMENT I saw and evaluated the patient. I reviewed the resident's note and discussed the case with the resident. I agree with the resident's findings and plan as documented. SUBJECTIVE: Pt seen and examined in the ICU. s/p cholecystostomy placement. Events overnight noted. Now intubated, receiving IVF boluses for hypotension. OBJECTIVE: Last Vital Signs Temp Pulse Resp BP Pulse Ox 98.8 F 90 14 105/54 100 02/03/17 13:05 02/03/17 13:05 02/03/17 14:25 02/03/17 13:05 02/03/17 10:00 Intake & Output 01/31/17 02/01/17 02/02/17 02/03/17 23:59 23:59 23:59 23:59 Intake Total 1050 1100 2429.4 Output Total 145 170 Balance 4577 150 0389.4 Weight 200 lb Gen: intubated, sedated Heart: RRR Lung: decreased breath sounds at the bases Abd: soft, nontender, +cholecystostomy with bilious drainage Ext: no edema CBC, BMP 02/03/17 14:50 02/03/17 14:50 Active Medications Chlorhexidine Gluconate (Hibiclens For Decolonization -) 1 applic TP HS HOANG Enoxaparin Sodium (Lovenox -) 40 mg SQ DAILY HOANG Last Admin: 02/03/17 11:01 Dose: 40 mg Sodium Chloride (Normal Saline -) 1,000 mls @ 125 mls/hr IV ASDIR HOANG Last Admin: 02/01/17 17:30 Dose: 125 mls/hr Piperacillin/Tazobactam/Dextrose (Zosyn 2.25gm Ivpb (Premix)) 50 mls @ 100 mls/ hr IVPB Q8H-IV HOANG PRN Reason: Protocol Last Admin: 02/03/17 10:13 Dose: 100 mls/hr Propofol (Diprivan -) 100 mls @ 2.722 mls/hr IVPB TITR HOANG; 5 MCG/KG/MIN PRN Reason: Protocol Last Titration: 02/03/17 09:00 Dose: 10.6 mcg/kg/min Morphine Sulfate (Morphine Injection -) 2 mg IVPUSH Q4H PRN PRN Reason: PAIN Last Admin: 02/03/17 00:10 Dose: 2 mg Mupirocin (Bactroban Ointment (For Decolonization) -) 1 applic NS BID [facility] Stop: 02/08/17 09:59 Last Admin: 02/03/17 10:15 Dose: 1 applic Pantoprazole Sodium (Protonix Iv) 40 mg IVPUSH DAILY [facility] Last Admin: 02/03/17 10:59 Dose: 40 mg ASSESSMENT AND PLAN: r/o Cholangitis Klebsiella Bacteremia s/p Cholecystostomy placement Severe Sepsis Acute Hypoxic Respiratory Failure Acute Kidney Injury Anemia - continue antibiotics - IVF resuscitation - monitor urine output, creatinine - taper FiO2 to keep Spo2 >90% - transfuse PRBC - monitor H/H - keep sedated for vent synchrony - for cholecystostomy revision when more stable - NPO - DVT/GI prophylaxis - continue ICU monitoring critical care time spent in reviewing chart, evaluating patient and formulating plan 35 min
[2017-02-03 15:55] LABS: ALBUMIN 1.7 g/dl (3.4-5.0); ANION GAP 9 (8-16); BILIRUBIN,TOTAL 3.8 mg/dL (0.2-1.0); CALCIUM 7.1 mg/dL (8.5-10.1); CO2 23 mmol/L (21-32); CREATININE 2.5 mg/dL (0.7-1.3); GLUCOSE,RANDOM 120 mg/dL (74-106); SGOT/AST 148 U/L (15-37); SGPT/ALT 219 U/L (12-78); TOT PROT 4.5 g/dl (6.4-8.2)
[2017-02-03 16:09] LABS: ALK PHOS 107 U/L (45-117); CPK 513 IU/L (39-308)
[2017-02-03 16:33] LABS: TROPONIN I 0.74 ng/ml (0.00-0.05)
[2017-02-03] MEDS ORDERED: PT OWN MED DRAWER 7, Y5N ONE (17:07)
--- NOTE | 2017-02-03 17:07 | PN ---
Progress Note (short form) - Note Progress Note: CT abdomen results and Hgb drop noted PRBC, Abx and support as per ICU team PTC for cholangitis as soon as deemed stable for the procedure. Problem List - Problems (1) Cholangitis due to bile duct calculus with obstruction Code(s): K80.31 - CALCULUS OF BILE DUCT W CHOLANGITIS, UNSP, WITH OBSTRUCTION (2) Choledocholithiasis with obstruction Code(s): K80.51 - CALCULUS OF BILE DUCT W/O CHOLANGITIS OR CHOLECYST W OBST (3) Cholelithiasis Code(s): K80.20 - CALCULUS OF GALLBLADDER W/O CHOLECYSTITIS W/O OBSTRUCTION
[2017-02-03] MEDS: SODIUM CHLORIDE 1,000 ML IV SCH (17:16)
[2017-02-03 18:34] LABS: URINE LEUK ESTERASE Negative (NEGATIVE)
[2017-02-03 22:03] LABS: BASOPHIL 0.1 % (0-2.0); EOSINOPHIL 0.7 % (0-4.5); MCHC 33.7 g/dl (32.0-35.9); MEAN CELL VOLUME 94.8 fl (80-96); MEAN PLT VOLUME 10.7 fl (7.5-11.1); NEUTROPHILS 86.6 % (42.8-82.8); PLATELET COUNT 92 K/MM3 (134-434); RDW 18.8 % (11.9-15.9); WHITE BLOOD COUNT 7.7 K/mm3 (4.0-10.0)
[2017-02-03 22:13] LABS: SODIUM,RANDOM URINE 12 MMOL/L
[2017-02-03] MEDS: CHLORHEXIDINE GLUCONATE 4% CLEANSER FOR DECOLONIZATION TP SCH (22:25)
[2017-02-03] MEDS ORDERED: ACETAMINOPHEN 1000 MG/100 ML VIAL (NON FORMULARY) IVPB ONE (23:45)
[2017-02-04] MEDS: PIPERACILLIN/TAZOB 2.25 GM 50 ML IVPB SCH ×3 (02:24→17:55)
[2017-02-04] MEDS ORDERED: PT OWN MED DRAWER 7, Y5N ONE (08:25)
--- NOTE | 2017-02-04 08:48 | PN ---
Physical Exam: SUBJECTIVE: Patient seen and examined at bedside. Intubated and sedated. Pt is currently stable. OBJECTIVE: Vital Signs Period Temp Pulse Resp BP Sys/Hernandez Pulse Ox Last 24 Hr 98.7 F-100.5 F 61-100 14-25 88-144/44-79 99-100 GENERAL: The patient is awake, alert, and fully oriented, in no acute distress. HEAD: Normal with no signs of trauma. EYES: PERRL, extraocular movements intact, sclera anicteric, conjunctiva clear. No ptosis. ENT: Ears normal, nares patent, oropharynx clear without exudates, moist mucous membranes. NECK: Trachea midline, full range of motion, supple. LUNGS: Breath sounds equal, clear to auscultation bilaterally, no wheezes, no crackles, no accessory muscle use. HEART: Regular rate and rhythm, S1, S2 without murmur, rub or gallop. ABDOMEN: Soft, nontender, nondistended, normoactive bowel sounds, no guarding, no rebound, no hepatosplenomegaly, no masses. EXTREMITIES: 2+ pulses, warm, well-perfused, no edema. NEUROLOGICAL: Cranial nerves II through XII grossly intact. Normal speech, gait not observed. PSYCH: Normal mood, normal affect. SKIN: Warm, dry, normal turgor, no rashes or lesions noted Laboratory Results - last 24 hr 02/03/17 02/03/17 02/03/17 05:12 05:12 06:00 WBC RBC Hgb Hct MCV MCH MCHC RDW Plt Count MPV Neutrophils % Lymphocytes % Monocytes % Eosinophils % Basophils % PT with INR INR PTT (Actin FS) Puncture Site ABG pH ABG pCO2 at Pt Temp ABG pO2 at Pt Temp ABG HCO3 ABG O2 Sat (Measured) ABG O2 Content ABG Base Excess [place] Test O2 Delivery Device Oxygen Flow Rate Vent Mode Vent Rate Mechanical Rate PEEP Pressure Support Vent Sodium 150 H Potassium 3.6 Chloride 119 H Carbon Dioxide 22 Anion Gap 9 BUN 77 H Creatinine 2.4 H D Creat Clearance w eGFR Y Random Glucose 143 H D Lactic Acid Calcium 6.9 L* Phosphorus 2.4 L Magnesium 2.3 Cancelled Total Bilirubin 4.3 H Cancelled Direct Bilirubin 3.8 H Cancelled AST 243 H Cancelled ALT 286 H Cancelled Alkaline Phosphatase 122 H Cancelled Creatine Kinase 771 H Creatine Kinase Index 0.7 CK-MB (CK-2) 5.923 H Troponin I 0.51 H D Total Protein 4.7 L Cancelled Albumin 1.8 L Cancelled Lipase 56 L Urine Color Urine Appearance Urine pH Ur Specific [place] Urine Protein Urine Glucose (UA) Urine Ketones Urine Blood Urine Nitrite Urine Bilirubin Urine Urobilinogen Ur Leukocyte Esterase Urine RBC Urine WBC Ur Epithelial Cells Urine Bacteria Urine Yeast Ur Random Sodium Ur Random Potassium Ur Random Chloride Urine Creatinine Blood Type Antibody Screen Crossmatch 02/03/17 02/03/17 02/03/17 06:00 06:00 06:00 WBC 7.3 RBC 2.70 L Hgb 9.0 L Hct 26.8 L MCV 99.3 H MCH 33.4 MCHC 33.7 RDW 14.2 Plt Count 64 L MPV 11.1 Neutrophils % 90.2 H Lymphocytes % 6.2 L D Monocytes % 3.2 L Eosinophils % 0.3 D Basophils % 0.1 PT with INR INR PTT (Actin FS) Puncture Site ABG pH ABG pCO2 at Pt Temp ABG pO2 at Pt Temp ABG HCO3 ABG O2 Sat (Measured) ABG O2 Content ABG Base Excess [place] Test O2 Delivery Device Oxygen Flow Rate Vent Mode Vent Rate Mechanical Rate PEEP Pressure Support Vent Sodium Potassium Chloride Carbon Dioxide Anion Gap BUN Creatinine Creat Clearance w eGFR Random Glucose Lactic Acid Calcium Phosphorus Cancelled Magnesium Cancelled Total Bilirubin Direct Bilirubin AST ALT Alkaline Phosphatase Creatine Kinase Creatine Kinase Index CK-MB (CK-2) Troponin I Total Protein Albumin Lipase Cancelled Urine Color Urine Appearance Urine pH Ur Specific [place] Urine Protein Urine Glucose (UA) Urine Ketones Urine Blood Urine Nitrite Urine Bilirubin Urine Urobilinogen Ur Leukocyte Esterase Urine RBC Urine WBC Ur Epithelial Cells Urine Bacteria Urine Yeast Ur Random Sodium Ur Random Potassium Ur Random Chloride Urine Creatinine Blood Type Antibody Screen Crossmatch 02/03/17 02/03/17 02/03/17 06:00 06:00 06:00 WBC RBC Hgb Hct MCV MCH MCHC RDW Plt Count MPV Neutrophils % Lymphocytes % Monocytes % Eosinophils % Basophils % PT with INR 15.10 H INR 1.34 H PTT (Actin FS) 28.3 Puncture Site ABG pH ABG pCO2 at Pt Temp ABG pO2 at Pt Temp ABG HCO3 ABG O2 Sat (Measured) ABG O2 Content ABG Base Excess [place] Test O2 Delivery Device Oxygen Flow Rate Vent Mode Vent Rate Mechanical Rate PEEP Pressure Support Vent Sodium Potassium Chloride Carbon Dioxide Anion Gap BUN Creatinine Creat Clearance w eGFR Random Glucose Lactic Acid Calcium Cancelled Phosphorus Magnesium Total Bilirubin Direct Bilirubin AST ALT Alkaline Phosphatase Creatine Kinase Cancelled Creatine Kinase Index CK-MB (CK-2) Troponin I Cancelled Total Protein Albumin Lipase Urine Color Urine Appearance Urine pH Ur Specific [place] Urine Protein Urine Glucose (UA) Urine Ketones Urine Blood Urine Nitrite Urine Bilirubin Urine Urobilinogen Ur Leukocyte Esterase Urine RBC Urine WBC Ur Epithelial Cells Urine Bacteria Urine Yeast Ur Random Sodium Ur Random Potassium Ur Random Chloride Urine Creatinine Blood Type Antibody Screen Crossmatch 02/03/17 02/03/17 02/03/17 09:25 09:31 11:17 WBC RBC Hgb Hct MCV MCH MCHC RDW Plt Count MPV Neutrophils % Lymphocytes % Monocytes % Eosinophils % Basophils % PT with INR INR PTT (Actin FS) Puncture Site Right radial ABG pH 7.37 ABG pCO2 at Pt Temp 36.6 ABG pO2 at Pt Temp 408.0 H* ABG HCO3 20.5 L ABG O2 Sat (Measured) 100.0 H* ABG O2 Content 14.6 L ABG Base Excess -3.8 L [place] Test Positive O2 Delivery Device Mechanical vent Oxygen Flow Rate 100 Vent Mode A/c Vent Rate 12 Mechanical Rate Yes PEEP 5.0 Pressure Support Vent 400 Sodium Potassium Chloride Carbon Dioxide Anion Gap BUN Creatinine Creat Clearance w eGFR Random Glucose Lactic Acid 1.7 Calcium Phosphorus Magnesium Total Bilirubin Direct Bilirubin AST ALT Alkaline Phosphatase Creatine Kinase Creatine Kinase Index CK-MB (CK-2) Troponin I Total Protein Albumin Lipase Urine Color Urine Appearance Urine pH Ur Specific [place] Urine Protein Urine Glucose (UA) Urine Ketones Urine Blood Urine Nitrite Urine Bilirubin Urine Urobilinogen Ur Leukocyte Esterase Urine RBC Urine WBC Ur Epithelial Cells Urine Bacteria Urine Yeast Ur Random Sodium Ur Random Potassium Ur Random Chloride Urine Creatinine Blood Type O NEGATIVE Antibody Screen Negative Crossmatch See Detail 02/03/17 02/03/17 02/03/17 13:25 13:25 13:25 WBC RBC Hgb Hct MCV MCH MCHC RDW Plt Count MPV Neutrophils % Lymphocytes % Monocytes % Eosinophils % Basophils % PT with INR INR PTT (Actin FS) Puncture Site ABG pH ABG pCO2 at Pt Temp ABG pO2 at Pt Temp ABG HCO3 ABG O2 Sat (Measured) ABG O2 Content ABG Base Excess [place] Test O2 Delivery Device Oxygen Flow Rate Vent Mode Vent Rate Mechanical Rate PEEP Pressure Support Vent Sodium Potassium Chloride Carbon Dioxide Anion Gap BUN Creatinine Creat Clearance w eGFR Random Glucose Lactic Acid Calcium Phosphorus Magnesium Total Bilirubin Direct Bilirubin AST ALT Alkaline Phosphatase Creatine Kinase Creatine Kinase Index CK-MB (CK-2) Troponin I Total Protein Albumin Lipase Urine Color Ema Urine Appearance Cloudy Urine pH 5.0 Ur Specific [place] 1.027 Urine Protein 1+ H Urine Glucose (UA) Negative Urine Ketones Negative Urine Blood 2+ H Urine Nitrite Negative Urine Bilirubin 2.0 Urine Urobilinogen Negative Ur Leukocyte Esterase Negative Urine RBC 16 Urine WBC 21 Ur Epithelial Cells Rare Urine Bacteria Rare Urine Yeast Few Ur Random Sodium 12 Ur Random Potassium 37.7 Ur Random Chloride < 10 Urine Creatinine 142.0 Blood Type Antibody Screen Crossmatch 02/03/17 02/03/17 02/03/17 14:50 14:50 14:50 WBC 8.3 RBC 2.28 L Hgb 7.8 L D Hct 22.7 L D MCV 99.5 H MCH 34.0 H MCHC 34.2 RDW 14.3 Plt Count 94 L D MPV 9.8 D Neutrophils % 89.6 H Lymphocytes % 5.5 L Monocytes % 3.6 L Eosinophils % 1.2 D Basophils % 0.1 PT with INR INR PTT (Actin FS) Puncture Site ABG pH ABG pCO2 at Pt Temp ABG pO2 at Pt Temp ABG HCO3 ABG O2 Sat (Measured) ABG O2 Content ABG Base Excess [place] Test O2 Delivery Device Oxygen Flow Rate Vent Mode Vent Rate Mechanical Rate PEEP Pressure Support Vent Sodium Cancelled 151 H Potassium Cancelled 3.7 Chloride Cancelled 119 H Carbon Dioxide Cancelled 23 Anion Gap Cancelled 9 BUN Cancelled 73 H Creatinine Cancelled 2.5 H Creat Clearance w eGFR Cancelled 24.55 Random Glucose Cancelled 120 H Lactic Acid Calcium Cancelled 7.1 L Phosphorus Magnesium Total Bilirubin Cancelled 3.8 H Direct Bilirubin AST Cancelled 148 H D ALT Cancelled 219 H D Alkaline Phosphatase Cancelled 107 Creatine Kinase 513 H Creatine Kinase Index 0.7 CK-MB (CK-2) 4.032 H Troponin I 0.74 H* D Total Protein Cancelled 4.5 L Albumin Cancelled 1.7 L Lipase Urine Color Urine Appearance Urine pH Ur Specific [place] Urine Protein Urine Glucose (UA) Urine Ketones Urine Blood Urine Nitrite Urine Bilirubin Urine Urobilinogen Ur Leukocyte Esterase Urine RBC Urine WBC Ur Epithelial Cells Urine Bacteria Urine Yeast Ur Random Sodium Ur Random Potassium Ur Random Chloride Urine Creatinine Blood Type Antibody Screen Crossmatch 02/03/17 21:30 WBC 7.7 RBC 3.01 L D Hgb 9.6 L D Hct 28.5 L D MCV 94.8 MCH 32.0 MCHC 33.7 RDW 18.8 H D Plt Count 92 L MPV 10.7 Neutrophils % 86.6 H Lymphocytes % 8.7 D Monocytes % 3.9 Eosinophils % 0.7 Basophils % 0.1 PT with INR INR PTT (Actin FS) Puncture Site ABG pH ABG pCO2 at Pt Temp ABG pO2 at Pt Temp ABG HCO3 ABG O2 Sat (Measured) ABG O2 Content ABG Base Excess [place] Test O2 Delivery Device Oxygen Flow Rate Vent Mode Vent Rate Mechanical Rate PEEP Pressure Support Vent Sodium Potassium Chloride Carbon Dioxide Anion Gap BUN Creatinine Creat Clearance w eGFR Random Glucose Lactic Acid Calcium Phosphorus Magnesium Total Bilirubin Direct Bilirubin AST ALT Alkaline Phosphatase Creatine Kinase Creatine Kinase Index CK-MB (CK-2) Troponin I Total Protein Albumin Lipase Urine Color Urine Appearance Urine pH Ur Specific [place] Urine Protein Urine Glucose (UA) Urine Ketones Urine Blood Urine Nitrite Urine Bilirubin Urine Urobilinogen Ur Leukocyte Esterase Urine RBC Urine WBC Ur Epithelial Cells Urine Bacteria Urine Yeast Ur Random Sodium Ur Random Potassium Ur Random Chloride Urine Creatinine Blood Type Antibody Screen Crossmatch Active Medications Generic Name Dose Route Start Last Admin Trade Name Freq PRN Reason Stop Dose Admin Chlorhexidine Gluconate 1 applic 02/03/17 22:00 02/03/17 22:25 Hibiclens For Decolonization - TP 1 applic HS HOANG Administration Sodium Chloride 1,000 mls @ 125 mls/hr 02/01/17 17:00 02/03/17 17:16 Normal Saline - IV 125 mls/hr ASDIR HOANG Administration Propofol 100 mls @ 2.722 mls/hr 02/03/17 09:00 02/04/17 06:41 Diprivan - IVPB 25 mcg/kg/min TITR HOANG Titration Protocol 5 MCG/KG/MIN Piperacillin Sod/Tazobactam Sod 50 mls @ 100 mls/hr 02/03/17 18:00 02/04/17 02: 24 Zosyn 2.25gm Ivpb (Pre-Docked) IVPB 100 mls/hr Q8H-IV HOANG Administration Protocol Morphine Sulfate 2 mg 02/02/17 13:33 02/03/17 00:10 Morphine Injection - IVPUSH 2 mg Q4H PRN Administration PAIN Mupirocin 1 applic 02/03/17 10:00 02/03/17 22:25 Bactroban Ointment (For Decolonization) - NS 02/08/17 09:59 1 applic BID HOANG Administration Pantoprazole Sodium 40 mg 02/03/17 10:00 02/03/17 10:59 Protonix Iv IVPUSH 40 mg DAILY HOANG Administration ASSESSMENT/PLAN: 86M w/ PMH Alzheimer's, Vitamin B12 deficiency, HTN, Depression, Bipolar, Dementia, Osteoarthritis admitted with ascending cholangitis and fever. Pt had GB drain placed and subsequently had a hypoxemic episode leading to transfer to ICU. #r/o cholangitis -increased LFTs and Bili -went for IR drain placement yest -g neg ena from drain -draining slowly -bili has not dropped dramatically since drain placement -pt will go to IR today for revision/replacement of drain -GI on board -f/u surg recs #anemia -Hb 9.6 today -r/o liver collection -CT shows pericholic gutters, which may represent blood #severe sepsis 2/2 bacteremia w/ Klebsiella -Klebsiella on BCx -NS -zosyn -ID on board #Acute on chronic resp failure -pt intubated at this time -continue sedation #JUAN J -Global Account Manager 2.5 up from 1.7 -Pt receiving NS -f/u labs -Nephro on board #FEN -NS @ 1,000 -hypernatremic, hyperchloremic on NS -NPO #PPx -hold lovenox in setting of Hb drop -protonix #Dispo -admitted to ICU Mello Baig MD PGY-1 ICU case d/w attending Pt's son Sunday to be contacted: [phone] Visit type - Emergency Visit Emergency Visit: No - New Patient This patient is new to me today: No - Critical Care Critical Care patient: Yes Total Critical Care Time (in minutes): 35 Critical Care Statement: The care of this patient involved high complexity decision making to prevent further life threatening deterioration of the patient 's condition and/or to evaluate & treat vital organ system(s) failure or risk of failure. - Discharge Referral Referred to [facility] No
[2017-02-04] MEDS: PANTOPRAZOLE SODIUM 40 MG VIAL IVPUSH SCH (08:59)
[2017-02-04] MEDS: MUPIROCIN 2% TOPICAL OINTMENT FOR DECOLONIZATION NS SCH ×2 (09:05→22:00)
[2017-02-04 09:47] LABS: ALBUMIN 1.6 g/dl (3.4-5.0); ALK PHOS 99 U/L (45-117); ANION GAP 9 (8-16); BILIRUBIN,TOTAL 3.3 mg/dL (0.2-1.0); CALCIUM 7.1 mg/dL (8.5-10.1); CO2 20 mmol/L (21-32); GLUCOSE,RANDOM 91 mg/dL (74-106); PHOSPHOROUS 2.5 mg/dL (2.5-4.9); SGPT/ALT 173 U/L (12-78); TOT PROT 4.5 g/dl (6.4-8.2)
[2017-02-04 09:51] LABS: MAGNESIUM 2.7 mg/dL (1.8-2.4); SGOT/AST 90 U/L (15-37)
--- NOTE | 2017-02-04 10:00 | PN ---
Progress Note, Physician Chief Complaint: remains intubated and sedated not on pressor support - Current Medication List Current Medications: Active Medications Chlorhexidine Gluconate (Hibiclens For Decolonization -) 1 applic TP HS HOANG Last Admin: 02/03/17 22:25 Dose: 1 applic Sodium Chloride (Normal Saline -) 1,000 mls @ 125 mls/hr IV ASDIR HOANG Last Admin: 02/03/17 17:16 Dose: 125 mls/hr Propofol (Diprivan -) 100 mls @ 2.722 mls/hr IVPB TITR HOANG; 5 MCG/KG/MIN PRN Reason: Protocol Last Titration: 02/04/17 06:41 Dose: 25 mcg/kg/min Piperacillin Sod/Tazobactam Sod (Zosyn 2.25gm Ivpb (Pre-Docked)) 50 mls @ 100 mls/hr IVPB Q8H-IV HOANG PRN Reason: Protocol Last Admin: 02/04/17 09:01 Dose: 100 mls/hr Morphine Sulfate (Morphine Injection -) 2 mg IVPUSH Q4H PRN PRN Reason: PAIN Last Admin: 02/03/17 00:10 Dose: 2 mg Mupirocin (Bactroban Ointment (For Decolonization) -) 1 applic NS BID [facility] Stop: 02/08/17 09:59 Last Admin: 02/04/17 09:05 Dose: 1 applic Pantoprazole Sodium (Protonix Iv) 40 mg IVPUSH DAILY [facility] Last Admin: 02/04/17 08:59 Dose: 40 mg - Objective Vital Signs: Vital Signs Temperature 99.0 F 02/04/17 06:00 Pulse Rate 59 L 02/04/17 09:00 Respiratory Rate 15 02/04/17 09:00 Blood Pressure 123/53 02/04/17 09:00 O2 Sat by Pulse Oximetry (%) 99 02/04/17 09:00 Constitutional: Yes: No Distress Cardiovascular: Yes: Regular Rate and Rhythm Respiratory: Yes: Diminished Gastrointestinal: Yes: Normal Bowel Sounds, Soft, Other (percutaneous cholecystostomy). No: Distention, Tenderness Labs: CBC, BMP 02/04/17 08:40 02/04/17 08:40 INR, PTT INR 1.34 (0.82-1.09) H 02/03/17 06:00 Problem List - Problems (1) Calculus of gallbladder 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 Code(s): K80.67 - CALCULUS OF GB AND BILE DUCT W AC AND CHR CHOLECYST W OBST (2) Cholangitis due to bile duct calculus with obstruction Code(s): K80.31 - CALCULUS OF BILE DUCT W CHOLANGITIS, UNSP, WITH OBSTRUCTION (3) Choledocholithiasis with obstruction Code(s): K80.51 - CALCULUS OF BILE DUCT W/O CHOLANGITIS OR CHOLECYST W OBST (4) Dementia with behavioral disturbance Code(s): F03.91 - UNSPECIFIED DEMENTIA WITH BEHAVIORAL DISTURBANCE Qualifiers : Dementia type: unspecified type Qualified Code(s): F03.91 - Unspecified dementia with behavioral disturbance; F03.91 - Unspecified dementia with behavioral disturbance; F03.91 - Unspecified dementia with behavioral disturbance (5) Elevated liver function tests Code(s): R79.89 - OTHER SPECIFIED ABNORMAL FINDINGS OF BLOOD CHEMISTRY (6) Hypertension Code(s): I10 - ESSENTIAL (PRIMARY) HYPERTENSION Qualifiers: Hypertension type: essential hypertension Qualified Code(s): I10 - Essential (primary) hypertension; I10 - Essential (primary) hypertension; I10 - Essential (primary) hypertension (7) Severe sepsis Code(s): A41.9 - SEPSIS, UNSPECIFIED ORGANISM R65.20 - SEVERE SEPSIS WITHOUT SEPTIC SHOCK Assessment/Plan PLAN s/p percutaneous cholecystostomy IV antibiotics, repeat blood cultures pending s/p PRBC noted CT abd keep NPO IV fluids LFTs decreasing renal function improving Renal consult- appreciated not on pressors continue vent support DVT prophylaxis-- SCD
[2017-02-04] MEDS: PROPOFOL 100 ML IVPB SCH (10:16)
[2017-02-04 10:32] LABS: BASOPHIL 0.2 % (0-2.0); MCHC 34.2 g/dl (32.0-35.9); MEAN CELL VOLUME 93.8 fl (80-96); MEAN PLT VOLUME 10.3 fl (7.5-11.1); NEUTROPHILS 82.6 % (42.8-82.8); PLATELET COUNT 82 K/MM3 (134-434); RDW 19.6 % (11.9-15.9); WHITE BLOOD COUNT 6.9 K/mm3 (4.0-10.0)
--- NOTE | 2017-02-04 11:45 | PN ---
Physical Exam: SUBJECTIVE: --NEPHROLOGY PROGRESS NOTE (w/Dr. Haynes)-- Patient seen and examined at bedside. Pt remains intubated, sedated, on vent. Pt is s/p 1 unit PRBC. Had a temp of 100.5 last night. No other acute events overnight. OBJECTIVE: Vital Signs Temperature 99.3 F 02/04/17 10:14 Pulse Rate 57 L 02/04/17 11:20 Respiratory Rate 14 02/04/17 11:20 Blood Pressure 138/57 02/04/17 11:20 O2 Sat by Pulse Oximetry (%) 99 02/04/17 09:00 GENERAL: Sedated, intubated, on vent. EYES: Pupils equal, round and reactive to light EARS, NOSE, THROAT: Ears normal, nares patent LUNGS: Auscultated anteriorly. HEART: Tachycardic, normal S1 and S2+. ABDOMEN: Soft, CARMELITA drain in place LOWER EXTREMITIES: warm, well-perfused. NEUROLOGICAL: sedated. PSYCHIATRIC: sedated SKIN: Warm, dry CBCD WBC 6.9 K/mm3 (4.0-10.0) 02/04/17 10:23 RBC 2.75 M/mm3 (4.00-5.60) L 02/04/17 10:23 Hgb 8.8 GM/dL (11.7-16.9) L 02/04/17 10:23 Hct 25.8 % (35.4-49) L 02/04/17 10:23 MCV 93.8 fl (80-96) 02/04/17 10:23 MCHC 34.2 g/dl (32.0-35.9) 02/04/17 10:23 RDW 19.6 % (11.9-15.9) H 02/04/17 10:23 Plt Count 82 K/MM3 (134-434) L 02/04/17 10:23 MPV 10.3 fl (7.5-11.1) 02/04/17 10:23 CMP Sodium 151 mmol/L (136-145) H 02/04/17 08:40 Potassium 3.7 mmol/L (3.5-5.1) 02/04/17 08:40 Chloride 122 mmol/L (98-107) H 02/04/17 08:40 Carbon Dioxide 20 mmol/L (21-32) L 02/04/17 08:40 Anion Gap 9 (8-16) 02/04/17 08:40 BUN 67 mg/dL (7-18) H 02/04/17 08:40 Creatinine 2.0 mg/dL (0.7-1.3) H 02/04/17 08:40 Creat Clearance w eGFR 31.76 (>60) 02/04/17 08:40 Random Glucose 91 mg/dL (74-106) D 02/04/17 08:40 Calcium 7.1 mg/dL (8.5-10.1) L 02/04/17 08:40 Total Bilirubin 3.3 mg/dL (0.2-1.0) H 02/04/17 08:40 AST 90 U/L (15-37) H D 02/04/17 08:40 ALT 173 U/L (12-78) H D 02/04/17 08:40 Alkaline Phosphatase 99 U/L (45-117) 02/04/17 08:40 Total Protein 4.5 g/dl (6.4-8.2) L 02/04/17 08:40 Albumin 1.6 g/dl (3.4-5.0) L 02/04/17 08:40 CARDIAC ENZYMES Creatine Kinase 513 IU/L (39-308) H 02/03/17 14:50 Troponin I 0.74 ng/ml (0.00-0.05) H* D 02/03/17 14:50 Imaging: Renal/Bladder U/S: no hydronephrosis. 5.3 cm R renal cortical cyst laterally Abd CT: free fluid in paracolic gutters and pelvis that may represent blood Active Medications Generic Name Dose Route Start Last Admin Trade Name Freq PRN Reason Stop Dose Admin Chlorhexidine Gluconate 1 applic 02/03/17 22:00 02/03/17 22:25 Hibiclens For Decolonization - TP 1 applic HS HOANG Administration Sodium Chloride 1,000 mls @ 125 mls/hr 02/01/17 17:00 02/03/17 17:16 Normal Saline - IV 125 mls/hr ASDIR HOANG Administration Propofol 100 mls @ 2.722 mls/hr 02/03/17 09:00 02/04/17 10:16 Diprivan - IVPB 11 mls/hr TITR HOANG Administration Protocol 5 MCG/KG/MIN Piperacillin Sod/Tazobactam Sod 50 mls @ 100 mls/hr 02/03/17 18:00 02/04/17 09: 01 Zosyn 2.25gm Ivpb (Pre-Docked) IVPB 100 mls/hr Q8H-IV HOANG Administration Protocol Morphine Sulfate 2 mg 02/02/17 13:33 02/03/17 00:10 Morphine Injection - IVPUSH 2 mg Q4H PRN Administration PAIN Mupirocin 1 applic 02/03/17 10:00 02/04/17 09:05 Bactroban Ointment (For Decolonization) - NS 02/08/17 09:59 1 applic BID HOANG Administration Pantoprazole Sodium 40 mg 02/03/17 10:00 02/04/17 08:59 Protonix Iv IVPUSH 40 mg DAILY HOANG Administration ASSESSMENT/PLAN: 86 y/o M w/sig PMH of Alzheimer's, Vitamin B12 deficiency, HTN, Depression, Bipolar, Dementia, Osteoarthritis who presented from [facility] for fever of 104 F in [place], found to have choledocholithiasis w/cholelithiasis and had percutaneous cholecystostomy placed. Hospital course complicated when pt became tachypneic, tachycardic, w/labored breathing, was intubated and transferred to ICU and found to have worsening renal failure. -JUAN J on possible CKD likely secondary to sepsis -no baseline Cr available -Cr now at 2 compared to 2.5 on last labs. Improving. Continue to monitor -FENa: 0.1% - pre-renal juan j -UCx negative -monitor for other signs/sources of infection/sepsis -Change fluids to 1/2 NS @ 75 ml/hr -abx as per ID -Hypernatremia, Hyperchloremia -Switch NS to 1/2NS @ 75 ml/hr -monitor electrolytes -3L free water deficit -Pseudohypocalcemia -Corrected calcium: 9.02 -Acute respiratory failure (s/p rapid response 02/03/17) -intubated, sedated, on propofol -management as per primary/icu team -Acute cholelithiasis w/choledocholithiasis -perc cholecystostomy in place -GI on board -monitor aminotransferases -Acute anemia -GI on board, monitor Hgb -CT shows possible blood collection Visit type - Emergency Visit Emergency Visit: Yes ED Registration Date: 02/01/17 Care time: The patient presented to the Emergency Department on the above date and was hospitalized for further evaluation of their emergent condition. - New Patient This patient is new to me today: No - Critical Care Critical Care patient: Yes Total Critical Care Time (in minutes): 36 Critical Care Statement: The care of this patient involved high complexity decision making to prevent further life threatening deterioration of the patient 's condition and/or to evaluate & treat vital organ system(s) failure or risk of failure.
--- NOTE | 2017-02-04 12:14 | PN ---
Progress Note, Physician History of Present Illness: seen and examined today. intubated, sedated, mechanically ventilated, unresponsive. - Current Medication List Current Medications: Active Medications Chlorhexidine Gluconate (Hibiclens For Decolonization -) 1 applic TP HS [facility] Last Admin: 02/03/17 22:25 Dose: 1 applic Sodium Chloride (Normal Saline -) 1,000 mls @ 125 mls/hr IV ASDIR HOANG Last Admin: 02/03/17 17:16 Dose: 125 mls/hr Propofol (Diprivan -) 100 mls @ 2.722 mls/hr IVPB TITR HOANG; 5 MCG/KG/MIN PRN Reason: Protocol Last Admin: 02/04/17 10:16 Dose: 11 mls/hr Piperacillin Sod/Tazobactam Sod (Zosyn 2.25gm Ivpb (Pre-Docked)) 50 mls @ 100 mls/hr IVPB Q8H-IV HOANG PRN Reason: Protocol Last Admin: 02/04/17 09:01 Dose: 100 mls/hr Morphine Sulfate (Morphine Injection -) 2 mg IVPUSH Q4H PRN PRN Reason: PAIN Last Admin: 02/03/17 00:10 Dose: 2 mg Mupirocin (Bactroban Ointment (For Decolonization) -) 1 applic NS BID [facility] Stop: 02/08/17 09:59 Last Admin: 02/04/17 09:05 Dose: 1 applic Pantoprazole Sodium (Protonix Iv) 40 mg IVPUSH DAILY [facility] Last Admin: 02/04/17 08:59 Dose: 40 mg - Objective Vital Signs: Vital Signs Temperature 99.3 F 02/04/17 10:14 Pulse Rate 57 L 02/04/17 11:20 Respiratory Rate 14 02/04/17 11:20 Blood Pressure 138/57 02/04/17 11:20 O2 Sat by Pulse Oximetry (%) 99 02/04/17 09:00 Constitutional: Yes: No Distress, Calm Eyes: Yes: Conjunctiva Clear Cardiovascular: Yes: Regular Rate and Rhythm, S1, S2. No: Bradycardia, Tachycardia, Pulse Irregular, Bruit, JVD, Gallop, Murmur, Rub, S3, S4, Varicosities Respiratory: Yes: Regular, Diminished, Intubated, Mechanically Ventilated. No: Rales, Rhonchi, Wheezes Gastrointestinal: Yes: Normal Bowel Sounds, Soft. No: Distention, Tenderness Edema: No Peripheral Pulses WNL: Yes Peripheral Pulses: Left Doralis Pedis: 2+, Right Dorsalis Pedis: 2+ Neurological: Yes: Unresponsive. No: Alert, Oriented Psychiatric: No: Alert, Oriented Labs: CBC, BMP 02/04/17 10:23 02/04/17 08:40 INR, PTT INR 1.34 (0.82-1.09) H 02/03/17 06:00 - ....Imaging Chest X-ray: Report Reviewed, Image Reviewed EKG: Report Reviewed, Image Reviewed Other: Report Reviewed, Image Reviewed (tele-nsr, frequent PVCs, 3 beats NSVT) Assessment/Plan Sepsis, gram negative Choledocholithiasis, s/p perc. cholecystostomy ASHD Acute respiratory failure s/p intubation REC: -CK/Troponin mildly elevated in setting of septic shock and BERTA -Likely some degree of underlying CAD based on EKG but this does not appear to be ACS -Echo reported as normal LV systolic function but separately that it was a poor study and nondiagnostic, will review images -cont supportive/ICU care
[2017-02-04] MEDS: SODIUM CHLORIDE 1,000 ML IV SCH (12:15)
--- NOTE | 2017-02-04 12:21 | PN ---
Teaching Attending Note Name of Resident: Mello Baig ATTENDING PHYSICIAN STATEMENT I saw and evaluated the patient. I reviewed the resident's note and discussed the case with the resident. I agree with the resident's findings and plan as documented. SUBJECTIVE: Patient seen and examined in the ICU. Intubated and sedated. No pressors. H&H stable. Intake & Output 02/01/17 02/02/17 02/03/17 02/04/17 23:59 23:59 23:59 23:59 Intake Total 1050 1100 3600.4 953 Output Total 145 1030 625 Balance 5447 374 6249.4 328 Weight 200 lb 169 lb 8 oz Last Vital Signs Temp Pulse Resp BP Pulse Ox 99.3 F 57 L 14 138/57 99 02/04/17 10:14 02/04/17 11:20 02/04/17 11:20 02/04/17 11:20 02/04/17 09:00 Active Medications Chlorhexidine Gluconate (Hibiclens For Decolonization -) 1 applic TP HS HOANG Last Admin: 02/03/17 22:25 Dose: 1 applic Sodium Chloride (Normal Saline -) 1,000 mls @ 125 mls/hr IV ASDIR HOANG Last Admin: 02/04/17 12:15 Dose: 125 mls/hr Propofol (Diprivan -) 100 mls @ 2.722 mls/hr IVPB TITR HOANG; 5 MCG/KG/MIN PRN Reason: Protocol Last Admin: 02/04/17 10:16 Dose: 11 mls/hr Piperacillin Sod/Tazobactam Sod (Zosyn 2.25gm Ivpb (Pre-Docked)) 50 mls @ 100 mls/hr IVPB Q8H-IV HOANG PRN Reason: Protocol Last Admin: 02/04/17 09:01 Dose: 100 mls/hr Morphine Sulfate (Morphine Injection -) 2 mg IVPUSH Q4H PRN PRN Reason: PAIN Last Admin: 02/03/17 00:10 Dose: 2 mg Mupirocin (Bactroban Ointment (For Decolonization) -) 1 applic NS BID [facility] Stop: 02/08/17 09:59 Last Admin: 02/04/17 09:05 Dose: 1 applic Pantoprazole Sodium (Protonix Iv) 40 mg IVPUSH DAILY [facility] Last Admin: 02/04/17 08:59 Dose: 40 mg Gen: intubated, sedated Heart: RRR Lung: decreased breath sounds at the bases Abd: soft, nontender, +cholecystostomy with dark/bilious drainage Ext: no edema Laboratory Results - last 24 hr 02/01/17 02/01/17 02/01/17 12:52 12:55 14:50 WBC Corrected WBC (auto) RBC Hgb Hct MCV MCH MCHC RDW Plt Count MPV Neutrophils % Lymphocytes % Monocytes % Eosinophils % Basophils % Platelet Estimate Platelet Comment RBC Morphology VBG pH 7.35 POC VBG pCO2 42.1 POC VBG pO2 35.9 Mixed VBG HCO3 23.0 Sodium Potassium Chloride Carbon Dioxide Anion Gap BUN Creatinine Creat Clearance w eGFR Random Glucose Lactic Acid 3.4 H* Calcium Phosphorus Magnesium Total Bilirubin AST ALT Alkaline Phosphatase Creatine Kinase Creatine Kinase Index CK-MB (CK-2) Troponin I Total Protein Albumin Urine Color Urine Appearance Urine pH Ur Specific Lead Urine Protein Urine Glucose (UA) Urine Ketones Urine Blood Urine Nitrite Urine Bilirubin Urine Urobilinogen Ur Leukocyte Esterase Urine RBC Urine WBC Ur Epithelial Cells Urine Bacteria Urine Yeast Ur Random Sodium Ur Random Potassium Ur Random Chloride Urine Creatinine Blood Type O NEGATIVE Antibody Screen Negative Crossmatch 02/03/17 02/03/17 02/03/17 11:17 13:25 13:25 WBC Corrected WBC (auto) RBC Hgb Hct MCV MCH MCHC RDW Plt Count MPV Neutrophils % Lymphocytes % Monocytes % Eosinophils % Basophils % Platelet Estimate Platelet Comment RBC Morphology VBG pH POC VBG pCO2 POC VBG pO2 Mixed VBG HCO3 Sodium Potassium Chloride Carbon Dioxide Anion Gap BUN Creatinine Creat Clearance w eGFR Random Glucose Lactic Acid Calcium Phosphorus Magnesium Total Bilirubin AST ALT Alkaline Phosphatase Creatine Kinase Creatine Kinase Index CK-MB (CK-2) Troponin I Total Protein Albumin Urine Color Ema Urine Appearance Cloudy Urine pH 5.0 Ur Specific Lead 1.027 Urine Protein 1+ H Urine Glucose (UA) Negative Urine Ketones Negative Urine Blood 2+ H Urine Nitrite Negative Urine Bilirubin 2.0 Urine Urobilinogen Negative Ur Leukocyte Esterase Negative Urine RBC 16 Urine WBC 21 Ur Epithelial Cells Rare Urine Bacteria Rare Urine Yeast Few Ur Random Sodium 12 Ur Random Potassium 37.7 Ur Random Chloride < 10 Urine Creatinine Blood Type O NEGATIVE Antibody Screen Negative Crossmatch See Detail 02/03/17 02/03/17 02/03/17 13:25 14:50 14:50 WBC 8.3 Corrected WBC (auto) RBC 2.28 L Hgb 7.8 L D Hct 22.7 L D MCV 99.5 H MCH 34.0 H MCHC 34.2 RDW 14.3 Plt Count 94 L D MPV 9.8 D Neutrophils % 89.6 H Lymphocytes % 5.5 L Monocytes % 3.6 L Eosinophils % 1.2 D Basophils % 0.1 Platelet Estimate Platelet Comment RBC Morphology VBG pH POC VBG pCO2 POC VBG pO2 Mixed VBG HCO3 Sodium Cancelled Potassium Cancelled Chloride Cancelled Carbon Dioxide Cancelled Anion Gap Cancelled BUN Cancelled Creatinine Cancelled Creat Clearance w eGFR Cancelled Random Glucose Cancelled Lactic Acid Calcium Cancelled Phosphorus Magnesium Total Bilirubin Cancelled AST Cancelled ALT Cancelled Alkaline Phosphatase Cancelled Creatine Kinase Creatine Kinase Index CK-MB (CK-2) Troponin I Total Protein Cancelled Albumin Cancelled Urine Color Urine Appearance Urine pH Ur Specific Lead Urine Protein Urine Glucose (UA) Urine Ketones Urine Blood Urine Nitrite Urine Bilirubin Urine Urobilinogen Ur Leukocyte Esterase Urine RBC Urine WBC Ur Epithelial Cells Urine Bacteria Urine Yeast Ur Random Sodium Ur Random Potassium Ur Random Chloride Urine Creatinine 142.0 Blood Type Antibody Screen Crossmatch 02/03/17 02/03/17 02/04/17 14:50 21:30 08:40 WBC 7.7 Cancelled Corrected WBC (auto) Cancelled RBC 3.01 L D Cancelled Hgb 9.6 L D Cancelled Hct 28.5 L D Cancelled MCV 94.8 Cancelled MCH 32.0 Cancelled MCHC 33.7 Cancelled RDW 18.8 H D Cancelled Plt Count 92 L Cancelled MPV 10.7 Cancelled Neutrophils % 86.6 H Cancelled Lymphocytes % 8.7 D Cancelled Monocytes % 3.9 Cancelled Eosinophils % 0.7 Cancelled Basophils % 0.1 Cancelled Platelet Estimate Cancelled Platelet Comment Cancelled RBC Morphology Cancelled VBG pH POC VBG pCO2 POC VBG pO2 Mixed VBG HCO3 Sodium 151 H Potassium 3.7 Chloride 119 H Carbon Dioxide 23 Anion Gap 9 BUN 73 H Creatinine 2.5 H Creat Clearance w eGFR 24.55 Random Glucose 120 H Lactic Acid Calcium 7.1 L Phosphorus Magnesium Total Bilirubin 3.8 H AST 148 H D ALT 219 H D Alkaline Phosphatase 107 Creatine Kinase 513 H Creatine Kinase Index 0.7 CK-MB (CK-2) 4.032 H Troponin I 0.74 H* D Total Protein 4.5 L Albumin 1.7 L Urine Color Urine Appearance Urine pH Ur Specific Lead Urine Protein Urine Glucose (UA) Urine Ketones Urine Blood Urine Nitrite Urine Bilirubin Urine Urobilinogen Ur Leukocyte Esterase Urine RBC Urine WBC Ur Epithelial Cells Urine Bacteria Urine Yeast Ur Random Sodium Ur Random Potassium Ur Random Chloride Urine Creatinine Blood Type Antibody Screen Crossmatch 02/04/17 02/04/17 08:40 10:23 WBC 6.9 Corrected WBC (auto) RBC 2.75 L Hgb 8.8 L Hct 25.8 L MCV 93.8 MCH 32.0 MCHC 34.2 RDW 19.6 H Plt Count 82 L MPV 10.3 Neutrophils % 82.6 Lymphocytes % 10.6 D Monocytes % 4.6 Eosinophils % 2.0 D Basophils % 0.2 Platelet Estimate Platelet Comment RBC Morphology VBG pH POC VBG pCO2 POC VBG pO2 Mixed VBG HCO3 Sodium 151 H Potassium 3.7 Chloride 122 H Carbon Dioxide 20 L Anion Gap 9 BUN 67 H Creatinine 2.0 H Creat Clearance w eGFR 31.76 Random Glucose 91 D Lactic Acid Calcium 7.1 L Phosphorus 2.5 Magnesium 2.7 H Total Bilirubin 3.3 H AST 90 H D ALT 173 H D Alkaline Phosphatase 99 Creatine Kinase Creatine Kinase Index CK-MB (CK-2) Troponin I Total Protein 4.5 L Albumin 1.6 L Urine Color Urine Appearance Urine pH Ur Specific Lead Urine Protein Urine Glucose (UA) Urine Ketones Urine Blood Urine Nitrite Urine Bilirubin Urine Urobilinogen Ur Leukocyte Esterase Urine RBC Urine WBC Ur Epithelial Cells Urine Bacteria Urine Yeast Ur Random Sodium Ur Random Potassium Ur Random Chloride Urine Creatinine Blood Type Antibody Screen Crossmatch ASSESSMENT AND PLAN: R/O Cholangitis Klebsiella Bacteremia S/P Cholecystostomy placement Severe Sepsis Acute Hypoxic Respiratory Failure Acute Kidney Injury Anemia - ABX - IVF - Monitor urine output, creatinine - transfuse PRBC - monitor H/H - For cholecystostomy revision when more stable - NPO - DVT/GI prophylaxis - continue ICU monitoring Dr Corral critical care time spent in reviewing chart, evaluating patient and formulating plan 35 min
[2017-02-04] MEDS: SODIUM CHLORIDE 0.45% 1,000 ML IV SCH (13:39)
--- NOTE | 2017-02-04 13:49 | PN ---
Teaching Attending Note Name of Resident: Velasquez Byrne (Nephrology) ATTENDING PHYSICIAN STATEMENT I saw and evaluated the patient. I reviewed the resident's note and discussed the case with the resident. I agree with the resident's findings and plan as documented. Nephrology Consult Pt seen and examined at bedside. He remain in the ICU intubated. Current Medications Generic Name Dose Route Start Last Admin Trade Name Freq PRN Reason Stop Dose Admin Chlorhexidine Gluconate 1 applic 02/03/17 22:00 02/03/17 22:25 Hibiclens For Decolonization - TP 1 applic HS HOANG Administration Propofol 100 mls @ 2.722 mls/hr 02/03/17 09:00 02/04/17 10:16 Diprivan - IVPB 11 mls/hr TITR HOANG Administration Protocol 5 MCG/KG/MIN Piperacillin Sod/Tazobactam Sod 50 mls @ 100 mls/hr 02/03/17 18:00 02/04/17 09: 01 Zosyn 2.25gm Ivpb (Pre-Docked) IVPB 100 mls/hr Q8H-IV HOANG Administration Protocol Sodium Chloride 1,000 mls @ 75 mls/hr 02/04/17 13:15 02/04/17 13:39 1/2 Normal Saline IV 75 mls/hr ASDIR HOANG Administration Morphine Sulfate 2 mg 02/02/17 13:33 02/03/17 00:10 Morphine Injection - IVPUSH 2 mg Q4H PRN Administration PAIN Mupirocin 1 applic 02/03/17 10:00 02/04/17 09:05 Bactroban Ointment (For Decolonization) - NS 02/08/17 09:59 1 applic BID HOANG Administration Pantoprazole Sodium 40 mg 02/03/17 10:00 02/04/17 08:59 Protonix Iv IVPUSH 40 mg DAILY HOANG Administration Last Vital Signs Temp Pulse Resp BP Pulse Ox 99.8 F H 97 H 14 163/73 99 02/04/17 13:31 02/04/17 13:31 02/04/17 13:31 02/04/17 13:31 02/04/17 09:00 Laboratory Tests 02/04/17 02/04/17 08:40 10:23 Hgb 8.8 L Sodium 151 H Potassium 3.7 BUN 67 H Creatinine 2.0 H cardio s1s2 pulm mechanically ventilated GI SOFT, cholecystostomy tube ext neg edema neuro lethargy skin neg rash circ pos pulses Impression 1. JUAN J 2. acute resp failure 3. sepsis 4. bacteremia 5. alzheimers 6. anemia 7. choledocholithiasis Plan - renal function is starting to improve - bp is improved - change fluids to a hypotonic solution - discussed with icu team - waiting for outpt records - vent support - monitor urine output - renal ultrasound reviewed - check cxr - will follow Dr Haynes
--- NOTE | 2017-02-04 15:52 | PN ---
Progress Note, Physician History of Present Illness: Chart reviewed. No events. Remains on vent support. Did not require pressors, or aggressive IVF. s/p PRBC last night. Hemodynamically stable. - Current Medication List Current Medications: Active Medications Chlorhexidine Gluconate (Hibiclens For Decolonization -) 1 applic TP HS HOANG Last Admin: 02/03/17 22:25 Dose: 1 applic Propofol (Diprivan -) 100 mls @ 2.722 mls/hr IVPB TITR HOANG; 5 MCG/KG/MIN PRN Reason: Protocol Last Admin: 02/04/17 10:16 Dose: 11 mls/hr Piperacillin Sod/Tazobactam Sod (Zosyn 2.25gm Ivpb (Pre-Docked)) 50 mls @ 100 mls/hr IVPB Q8H-IV HOANG PRN Reason: Protocol Last Admin: 02/04/17 09:01 Dose: 100 mls/hr Sodium Chloride (1/2 Normal Saline) 1,000 mls @ 75 mls/hr IV ASDIR [facility] Last Admin: 02/04/17 13:39 Dose: 75 mls/hr Morphine Sulfate (Morphine Injection -) 2 mg IVPUSH Q4H PRN PRN Reason: PAIN Last Admin: 02/03/17 00:10 Dose: 2 mg Mupirocin (Bactroban Ointment (For Decolonization) -) 1 applic NS BID [facility] Stop: 02/08/17 09:59 Last Admin: 02/04/17 09:05 Dose: 1 applic Pantoprazole Sodium (Protonix Iv) 40 mg IVPUSH DAILY [facility] Last Admin: 02/04/17 08:59 Dose: 40 mg - Objective Vital Signs: Vital Signs Temperature 99.8 F H 02/04/17 13:31 Pulse Rate 85 02/04/17 15:00 Respiratory Rate 22 02/04/17 15:00 Blood Pressure 150/61 02/04/17 15:00 O2 Sat by Pulse Oximetry (%) 99 02/04/17 09:00 Constitutional: Yes: No Distress, Other (sedated with propofol) Eyes: Yes: Conjunctiva Clear Neck: Yes: Supple Gastrointestinal: Yes: Soft, Distention, Other (no discoloration) Labs: CBC, BMP 02/04/17 10:23 02/04/17 08:40 INR, PTT INR 1.34 (0.82-1.09) H 02/03/17 06:00 Hepatic Panel Total Bilirubin 3.3 mg/dL (0.2-1.0) H 02/04/17 08:40 Direct Bilirubin 3.8 mg/dL (0.0-0.2) H 02/03/17 05:12 AST 90 U/L (15-37) H D 02/04/17 08:40 ALT 173 U/L (12-78) H D 02/04/17 08:40 Alkaline Phosphatase 99 U/L (45-117) 02/04/17 08:40 Albumin 1.6 g/dl (3.4-5.0) L 02/04/17 08:40 CBCD WBC 6.9 K/mm3 (4.0-10.0) 02/04/17 10:23 RBC 2.75 M/mm3 (4.00-5.60) L 02/04/17 10:23 Hgb 8.8 GM/dL (11.7-16.9) L 02/04/17 10:23 Hct 25.8 % (35.4-49) L 02/04/17 10:23 MCV 93.8 fl (80-96) 02/04/17 10:23 MCHC 34.2 g/dl (32.0-35.9) 02/04/17 10:23 RDW 19.6 % (11.9-15.9) H 02/04/17 10:23 Plt Count 82 K/MM3 (134-434) L 02/04/17 10:23 MPV 10.3 fl (7.5-11.1) 02/04/17 10:23 CMP Sodium 151 mmol/L (136-145) H 02/04/17 08:40 Potassium 3.7 mmol/L (3.5-5.1) 02/04/17 08:40 Chloride 122 mmol/L (98-107) H 02/04/17 08:40 Carbon Dioxide 20 mmol/L (21-32) L 02/04/17 08:40 Anion Gap 9 (8-16) 02/04/17 08:40 BUN 67 mg/dL (7-18) H 02/04/17 08:40 Creatinine 2.0 mg/dL (0.7-1.3) H 02/04/17 08:40 Creat Clearance w eGFR 31.76 (>60) 02/04/17 08:40 Calcium 7.1 mg/dL (8.5-10.1) L 02/04/17 08:40 Total Bilirubin 3.3 mg/dL (0.2-1.0) H 02/04/17 08:40 AST 90 U/L (15-37) H D 02/04/17 08:40 ALT 173 U/L (12-78) H D 02/04/17 08:40 Alkaline Phosphatase 99 U/L (45-117) 02/04/17 08:40 Total Protein 4.5 g/dl (6.4-8.2) L 02/04/17 08:40 Albumin 1.6 g/dl (3.4-5.0) L 02/04/17 08:40 Microbiology 02/02/17 09:00 Drainage Gram Stain - Final 02/02/17 09:00 Drainage Body Fluid Culture - Preliminary Escherichia Coli Esbl Grain [employer] Group D Strep Or Entero Coccus 02/02/17 09:00 Drainage Anaerobic Culture - Final NO ANAEROBES WERE ISOLATED 02/03/17 13:25 Urine - Urine Bar Urine Culture - Final NO GROWTH OBTAINED 02/01/17 12:55 Blood - Peripheral Venous Blood Culture - Final Klebsiella Pneumoniae 02/01/17 12:55 Blood - Peripheral Venous Blood Culture - Final Klebsiella Pneumoniae Problem List - Problems (1) Cholangitis due to bile duct calculus with obstruction Code(s): K80.31 - CALCULUS OF BILE DUCT W CHOLANGITIS, UNSP, WITH OBSTRUCTION (2) Choledocholithiasis with obstruction Code(s): K80.51 - CALCULUS OF BILE DUCT W/O CHOLANGITIS OR CHOLECYST W OBST (3) Cholelithiasis Code(s): K80.20 - CALCULUS OF GALLBLADDER W/O CHOLECYSTITIS W/O OBSTRUCTION Assessment/Plan Cholangitis in a debilitated patient. . E.coli in bile and klebsiella PNA in blood. On zosyn, per ID liver chemistry, bili and ALP are trending down. Lipase from 560 to ?56, repeat pending this pm. Need for PTC remains. Cholangitis may recur when Abx stopped while no definite treatment of CBD obstruction. Reconsult IR
[2017-02-04 16:20] LABS: ALBUMIN 1.7 g/dl (3.4-5.0); BILIRUBIN,DIRECT 2.5 mg/dL (0.0-0.2)
[2017-02-04 16:22] LABS: TOT PROT 4.8 g/dl (6.4-8.2)
--- NOTE | 2017-02-04 16:41 | PN ---
Progress Note, Physician History of Present Illness: continues to be sedated and intubated no specific changes - Current Medication List Current Medications: Active Medications Chlorhexidine Gluconate (Hibiclens For Decolonization -) 1 applic TP HS HOANG Last Admin: 02/03/17 22:25 Dose: 1 applic Propofol (Diprivan -) 100 mls @ 2.722 mls/hr IVPB TITR HOANG; 5 MCG/KG/MIN PRN Reason: Protocol Last Admin: 02/04/17 10:16 Dose: 11 mls/hr Piperacillin Sod/Tazobactam Sod (Zosyn 2.25gm Ivpb (Pre-Docked)) 50 mls @ 100 mls/hr IVPB Q8H-IV HOANG PRN Reason: Protocol Last Admin: 02/04/17 09:01 Dose: 100 mls/hr Sodium Chloride (1/2 Normal Saline) 1,000 mls @ 75 mls/hr IV ASDIR HOANG Last Admin: 02/04/17 13:39 Dose: 75 mls/hr Morphine Sulfate (Morphine Injection -) 2 mg IVPUSH Q4H PRN PRN Reason: PAIN Last Admin: 02/03/17 00:10 Dose: 2 mg Mupirocin (Bactroban Ointment (For Decolonization) -) 1 applic NS BID [facility] Stop: 02/08/17 09:59 Last Admin: 02/04/17 09:05 Dose: 1 applic Pantoprazole Sodium (Protonix Iv) 40 mg IVPUSH DAILY [facility] Last Admin: 02/04/17 08:59 Dose: 40 mg - Objective Vital Signs: Vital Signs Temperature 99.8 F H 02/04/17 13:31 Pulse Rate 85 02/04/17 15:00 Respiratory Rate 22 02/04/17 15:00 Blood Pressure 150/61 02/04/17 15:00 O2 Sat by Pulse Oximetry (%) 99 02/04/17 09:00 Constitutional: Yes: Other Cardiovascular: Yes: Regular Rate and Rhythm Respiratory: Yes: Intubated, Mechanically Ventilated Gastrointestinal: Yes: Normal Bowel Sounds, Soft, Other (choley tube in place) Musculoskeletal: Yes: WNL Extremities: Yes: WNL Neurological: Yes: Other Labs: CBC, BMP 02/04/17 10:23 02/04/17 08:40 INR, PTT INR 1.34 (0.82-1.09) H 02/03/17 06:00 Assessment/Plan Problem List - Problems (1) Calculus of gallbladder 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91 - Unspecified dementia with behavioral disturbance; F03.91 - Unspecified dementia with behavioral disturbance; F03.91 - Unspecified dementia with behavioral disturbance fever 6 gm negative bacteremia cx from the gb seen all cx noted plan continue vent support await for one organism to be back rest as per icu abx to continue ct scan seen and result noted cc time 40 min
[2017-02-04 17:19] LABS: BASOPHIL 0.4 % (0-2.0); MCH 32.2 pg (25.7-33.7); MCHC 34.7 g/dl (32.0-35.9); MEAN CELL VOLUME 92.7 fl (80-96); MEAN PLT VOLUME 10.4 fl (7.5-11.1); NEUTROPHILS 86.1 % (42.8-82.8); PLATELET COUNT 109 K/MM3 (134-434); RDW 19.7 % (11.9-15.9); WHITE BLOOD COUNT 7.6 K/mm3 (4.0-10.0)
[2017-02-04] MEDS: CHLORHEXIDINE GLUCONATE 4% CLEANSER FOR DECOLONIZATION TP SCH (22:00)
--- NOTE | 2017-02-04 22:24 | PN ---
Progress Note (short form) - Note Progress Note: Pt seen and examined in ICU. Recent events noted - intubated and tfrd to ICU. Currently intubated, sedated, s/p perc cholecystostomy but no ptc drain for choledocholithiasis with obstruction. Vital Signs Period Temp Pulse Resp BP Sys/Hernandez Pulse Ox Last 24 Hr 99.0 F-99.8 F 57-97 12-22 109-169/52-73 99-100 PE: intubated, sedated moves arms spontaneously, does not open eyes to voice sclerae mildly icteric, somewhat jaundiced heart rate tachy with PVCs abdomen soft, obese, ?distended, nontender to palpation - pt does not react to exam gallbladder drain with bile in bulb, ~2/3 full Bar with dark/glenn urine CBCD WBC 7.6 K/mm3 (4.0-10.0) 02/04/17 16:00 RBC 3.19 M/mm3 (4.00-5.60) L 02/04/17 16:00 Hgb 10.3 GM/dL (11.7-16.9) L D 02/04/17 16:00 Hct 29.6 % (35.4-49) L 02/04/17 16:00 MCV 92.7 fl (80-96) 02/04/17 16:00 MCHC 34.7 g/dl (32.0-35.9) 02/04/17 16:00 RDW 19.7 % (11.9-15.9) H 02/04/17 16:00 Plt Count 109 K/MM3 (134-434) L D 02/04/17 16:00 MPV 10.4 fl (7.5-11.1) 02/04/17 16:00 CMP Sodium 151 mmol/L (136-145) H 02/04/17 08:40 Potassium 3.7 mmol/L (3.5-5.1) 02/04/17 08:40 Chloride 122 mmol/L (98-107) H 02/04/17 08:40 Carbon Dioxide 20 mmol/L (21-32) L 02/04/17 08:40 Anion Gap 9 (8-16) 02/04/17 08:40 BUN 67 mg/dL (7-18) H 02/04/17 08:40 Creatinine 2.0 mg/dL (0.7-1.3) H 02/04/17 08:40 Creat Clearance w eGFR 31.76 (>60) 02/04/17 08:40 Calcium 7.1 mg/dL (8.5-10.1) L 02/04/17 08:40 Total Bilirubin 3.0 mg/dL (0.2-1.0) H 02/04/17 15:00 AST 74 U/L (15-37) H 02/04/17 15:00 ALT 167 U/L (12-78) H 02/04/17 15:00 Alkaline Phosphatase 103 U/L (45-117) 02/04/17 15:00 Total Protein 4.8 g/dl (6.4-8.2) L 02/04/17 15:00 Albumin 1.7 g/dl (3.4-5.0) L 02/04/17 15:00 lipase 180 Microbiology 02/02/17 09:00 Gram Stain - Final Drainage Body Fluid Culture - Preliminary Escherichia Coli Esbl Volcanology Teacher Enterococcus Faecalis Anaerobic Culture - Final NO ANAEROBES WERE ISOLATED 02/03/17 13:25 Urine Culture - Final Urine - Urine Bar NO GROWTH OBTAINED 02/01/17 12:55 Blood Culture - Final Blood - Peripheral Venous Klebsiella Pneumoniae 02/01/17 12:55 Blood Culture - Final Blood - Peripheral Venous Klebsiella Pneumoniae INR, PTT INR 1.34 (0.82-1.09) H 02/03/17 06:00 ABG Results ABG pH 7.37 (7.35-7.45) 02/03/17 09:25 ABG pCO2 at Pt Temp 36.6 mmHg (35-45) 02/03/17 09:25 ABG pO2 at Pt Temp 408.0 mmHg (68-100) H* 02/03/17 09:25 ABG HCO3 20.5 meq/L (22-26) L 02/03/17 09:25 ABG O2 Sat (Measured) 100.0 % (90-98.9) H* 02/03/17 09:25 ABG O2 Content 14.6 % vol (15-22) L 02/03/17 09:25 ABG Base Excess -3.8 meq/l (-2-2) L 02/03/17 09:25 A/P: choledocholithiasis with obstruction, cholelithiasis with chronic cholecystitis sepsis with GN bacteremia biliary pancreatitis resolving or chronic intravascularly dry by labs NPO/IVF for resuscitation and maintenance replete lytes prn intubated, sedated IV antibiotics per ID blood and bile cultures positive for E. coli ESBL, E. faecalis and Klebsiella still in need of cbd drainage GI following trend labs cardiology on board not a candidate for surgical intervention will remain available as needed This patient is critically ill. Time spent reviewing chart, examining patient, talking with providers and/or family and documentation is 35 minutes Problem List - Problems (1) Calculus of gallbladder 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 Code(s): K80.67 - CALCULUS OF GB AND BILE DUCT W AC AND CHR CHOLECYST W OBST (2) Klebsiella pneumoniae sepsis Code(s): A41.4 - SEPSIS DUE TO ANAEROBES (3) Sepsis due to Gram-negative organism with acute respiratory failure Code(s): A41.50 - GRAM-NEGATIVE SEPSIS, UNSPECIFIED R65.20 - SEVERE SEPSIS WITHOUT SEPTIC SHOCK J96.00 - ACUTE RESPIRATORY FAILURE, UNSP W HYPOXIA OR HYPERCAPNIA (4) Acute cholangitis due to calculus of bile duct with obstruction Code(s): K80.37 - CALCULUS OF BILE DUCT W ACUTE AND CHRONIC CHOLANGITIS W OBST (5) Pancreatitis due to common bile duct stone Code(s): K85.90 - ACUTE PANCREATITIS WITHOUT NECROSIS OR INFECTION, UNSP K80.50 - CALCULUS OF BILE DUCT W/O CHOLANGITIS OR CHOLECYST W/O OBST (6) Hypertension Code(s): I10 - ESSENTIAL (PRIMARY) HYPERTENSION Qualifiers: Hypertension type: essential hypertension Qualified Code(s): I10 - Essential (primary) hypertension; I10 - Essential (primary) hypertension; I10 - Essential (primary) hypertension (7) Macular degeneration, age related Code(s): H35.30 - UNSPECIFIED MACULAR DEGENERATION (8) Dementia with behavioral disturbance Code(s): F03.91 - UNSPECIFIED DEMENTIA WITH BEHAVIORAL DISTURBANCE Qualifiers : Dementia type: unspecified type Qualified Code(s): F03.91 - Unspecified dementia with behavioral disturbance; F03.91 - Unspecified dementia with behavioral disturbance; F03.91 - Unspecified dementia with behavioral disturbance
[2017-02-04] MEDS: morphine CARPU-JECT 2 MG/1 ML DISP.SYRIN IVPUSH PRN (23:32)
[2017-02-05] MEDS: PIPERACILLIN/TAZOB 2.25 GM 50 ML IVPB SCH ×2 (02:00→11:24)
[2017-02-05 06:07] LABS: BASOPHIL 0.1 % (0-2.0); EOSINOPHIL 1.2 % (0-4.5); MCH 32.8 pg (25.7-33.7); MCHC 35.6 g/dl (32.0-35.9); MEAN CELL VOLUME 92.3 fl (80-96); MEAN PLT VOLUME 10.3 fl (7.5-11.1); NEUTROPHILS 80.1 % (42.8-82.8); PLATELET COUNT 90 K/MM3 (134-434); RDW 19.1 % (11.9-15.9); WHITE BLOOD COUNT 5.7 K/mm3 (4.0-10.0)
[2017-02-05 06:31] LABS: ALBUMIN 1.5 g/dl (3.4-5.0); ALK PHOS 92 U/L (45-117); ANION GAP 13 (8-16); BILIRUBIN,TOTAL 2.4 mg/dL (0.2-1.0); CALCIUM 7.1 mg/dL (8.5-10.1); CO2 19 mmol/L (21-32); CREATININE 1.9 mg/dL (0.7-1.3); GLUCOSE,RANDOM 108 mg/dL (74-106); SGOT/AST 53 U/L (15-37); SGPT/ALT 130 U/L (12-78); TOT PROT 4.5 g/dl (6.4-8.2)
--- NOTE | 2017-02-05 08:25 | PN ---
Progress Note, Physician Chief Complaint: remains intubated on 40% FIO2, AC Mode, PEEP 5 TELE: NSR, VPCs and occasional couplets - Current Medication List Current Medications: Active Medications Chlorhexidine Gluconate (Hibiclens For Decolonization -) 1 applic TP HS HOANG Last Admin: 02/04/17 22:00 Dose: 1 applic Propofol (Diprivan -) 100 mls @ 2.722 mls/hr IVPB TITR HOANG; 5 MCG/KG/MIN PRN Reason: Protocol Last Admin: 02/04/17 10:16 Dose: 11 mls/hr Piperacillin Sod/Tazobactam Sod (Zosyn 2.25gm Ivpb (Pre-Docked)) 50 mls @ 100 mls/hr IVPB Q8H-IV HOANG PRN Reason: Protocol Last Admin: 02/05/17 02:00 Dose: 100 mls/hr Sodium Chloride (1/2 Normal Saline) 1,000 mls @ 75 mls/hr IV ASDIR HOANG Last Admin: 02/04/17 13:39 Dose: 75 mls/hr Morphine Sulfate (Morphine Injection -) 2 mg IVPUSH Q4H PRN PRN Reason: PAIN Last Admin: 02/04/17 23:32 Dose: 2 mg Mupirocin (Bactroban Ointment (For Decolonization) -) 1 applic NS BID [facility] Stop: 02/08/17 09:59 Last Admin: 02/04/17 22:00 Dose: 1 applic Pantoprazole Sodium (Protonix Iv) 40 mg IVPUSH DAILY [facility] Last Admin: 02/04/17 08:59 Dose: 40 mg - Objective Vital Signs: Vital Signs Temperature 99 F 02/05/17 06:00 Pulse Rate 54 L 02/05/17 06:00 Respiratory Rate 14 02/05/17 06:00 Blood Pressure 110/48 02/05/17 06:00 O2 Sat by Pulse Oximetry (%) 99 02/04/17 20:00 Cardiovascular: Yes: Regular Rate and Rhythm Respiratory: Yes: Other (= breath sounds b/l) Gastrointestinal: Yes: Soft Edema: No Neurological: Yes: Other (sedated on Propofol) Labs: CBC, BMP 02/05/17 05:50 02/05/17 05:50 INR, PTT INR 1.34 (0.82-1.09) H 02/03/17 06:00 Microbiology 02/01/17 12:55 Blood - Peripheral Venous Blood Culture - Final Klebsiella Pneumoniae 02/01/17 12:55 Blood - Peripheral Venous Blood Culture - Final Klebsiella Pneumoniae 02/04/17 00:57 Blood - Peripheral Venous Blood Culture - Preliminary NO GROWTH OBTAINED AFTER 24 HOURS, INCUBATION TO CONTINUE FOR 4 DAYS. Laboratory Tests 02/05/17 02/05/17 05:50 05:50 WBC 5.7 Hgb 8.4 L D Plt Count 90 L Sodium 154 H Potassium 3.7 BUN 60 H Creatinine 1.9 H AST 53 H D ALT 130 H D - ....Imaging EKG: Image Reviewed Assessment/Plan Assessment/Plan Sepsis, gram negative Choledocholithiasis, s/p perc. cholecystostomy ASHD Acute respiratory failure s/p intubation REC: -CK/Troponin mildly elevated in setting of septic shock and BERTA -Probable chronic underlying CAD based on EKG but this does not appear to be ACS /NSTEMI -Echo reported as normal LV systolic function -cont supportive/ICU care
[2017-02-05] MEDS: PROPOFOL 100 ML IVPB SCH (08:59)
[2017-02-05] MEDS: PANTOPRAZOLE SODIUM 40 MG VIAL IVPUSH SCH (09:00)
[2017-02-05] MEDS: MUPIROCIN 2% TOPICAL OINTMENT FOR DECOLONIZATION NS SCH ×2 (09:01→22:00)
--- NOTE | 2017-02-05 09:44 | PN ---
Progress Note, Physician History of Present Illness: Chart reviewed. No events. Remains on vent support. Hemodynamically stable. Hgb 8.4. Off propofol this am CBCD WBC 5.7 K/mm3 (4.0-10.0) 02/05/17 05:50 RBC 2.56 M/mm3 (4.00-5.60) L 02/05/17 05:50 Hgb 8.4 GM/dL (11.7-16.9) L D 02/05/17 05:50 Hct 23.6 % (35.4-49) L D 02/05/17 05:50 MCV 92.3 fl (80-96) 02/05/17 05:50 MCHC 35.6 g/dl (32.0-35.9) 02/05/17 05:50 RDW 19.1 % (11.9-15.9) H 02/05/17 05:50 Plt Count 90 K/MM3 (134-434) L 02/05/17 05:50 MPV 10.3 fl (7.5-11.1) 02/05/17 05:50 CMP Sodium 154 mmol/L (136-145) H 02/05/17 05:50 Potassium 3.7 mmol/L (3.5-5.1) 02/05/17 05:50 Chloride 122 mmol/L (98-107) H 02/05/17 05:50 Carbon Dioxide 19 mmol/L (21-32) L 02/05/17 05:50 Anion Gap 13 (8-16) 02/05/17 05:50 BUN 60 mg/dL (7-18) H 02/05/17 05:50 Creatinine 1.9 mg/dL (0.7-1.3) H 02/05/17 05:50 Creat Clearance w eGFR 33.70 (>60) 02/05/17 05:50 Calcium 7.1 mg/dL (8.5-10.1) L 02/05/17 05:50 Total Bilirubin 2.4 mg/dL (0.2-1.0) H 02/05/17 05:50 AST 53 U/L (15-37) H D 02/05/17 05:50 ALT 130 U/L (12-78) H D 02/05/17 05:50 Alkaline Phosphatase 92 U/L (45-117) 11/03/17 05:50 Total Protein 4.5 g/dl (6.4-8.2) L 02/05/17 05:50 Albumin 1.5 g/dl (3.4-5.0) L 02/05/17 05:50 - Current Medication List Current Medications: Active Medications Chlorhexidine Gluconate (Hibiclens For Decolonization -) 1 applic TP HS HOANG Last Admin: 02/04/17 22:00 Dose: 1 applic Propofol (Diprivan -) 100 mls @ 2.722 mls/hr IVPB TITR HOANG; 5 MCG/KG/MIN PRN Reason: Protocol Last Titration: 02/05/17 09:32 Dose: 0 mcg/kg/min Piperacillin Sod/Tazobactam Sod (Zosyn 2.25gm Ivpb (Pre-Docked)) 50 mls @ 100 mls/hr IVPB Q8H-IV HOANG PRN Reason: Protocol Last Admin: 02/05/17 02:00 Dose: 100 mls/hr Sodium Chloride (1/2 Normal Saline) 1,000 mls @ 75 mls/hr IV ASDIR HOANG Last Admin: 02/04/17 13:39 Dose: 75 mls/hr Morphine Sulfate (Morphine Injection -) 2 mg IVPUSH Q4H PRN PRN Reason: PAIN Last Admin: 02/04/17 23:32 Dose: 2 mg Mupirocin (Bactroban Ointment (For Decolonization) -) 1 applic NS BID [facility] Stop: 02/08/17 09:59 Last Admin: 02/05/17 09:01 Dose: 1 applic Pantoprazole Sodium (Protonix Iv) 40 mg IVPUSH DAILY [facility] Last Admin: 02/05/17 09:00 Dose: 40 mg - Objective Vital Signs: Vital Signs Temperature 99 F 02/05/17 06:00 Pulse Rate 54 L 02/05/17 06:00 Respiratory Rate 14 02/05/17 06:00 Blood Pressure 110/48 02/05/17 06:00 O2 Sat by Pulse Oximetry (%) 99 02/04/17 20:00 Eyes: No: Conjunctiva Clear Gastrointestinal: Yes: Soft, Distention Neurological: Yes: Other (off propofol) Labs: CBC, BMP 02/05/17 05:50 02/05/17 05:50 INR, PTT INR 1.34 (0.82-1.09) H 02/03/17 06:00 Problem List - Problems (1) Cholangitis due to bile duct calculus with obstruction Code(s): K80.31 - CALCULUS OF BILE DUCT W CHOLANGITIS, UNSP, WITH OBSTRUCTION (2) Choledocholithiasis with obstruction Code(s): K80.51 - CALCULUS OF BILE DUCT W/O CHOLANGITIS OR CHOLECYST W OBST (3) Cholelithiasis Code(s): K80.20 - CALCULUS OF GALLBLADDER W/O CHOLECYSTITIS W/O OBSTRUCTION Assessment/Plan Cholangitis and acute blood loss anemia in a debilitated patient. . Repeat Hgb this PM, transfuse if < 8g/dl E.coli in bile and klebsiella PNA in blood. On zosyn, per ID liver chemistry, bili and ALP are trending down. Lipase normalized. Need for PTC remains. Reconsult IR
--- NOTE | 2017-02-05 10:13 | PN ---
Progress Note (short form) - Note Progress Note: Pt seen/ examined in icu. sedated on vent. at bedside Vital Signs Temp 99 F 02/05/17 06:00 Pulse 54 L 02/05/17 06:00 Resp 14 02/05/17 06:00 BP 110/48 02/05/17 06:00 Pulse Ox 99 02/04/17 20:00 Intake & Output 02/04/17 02/04/17 02/05/17 11:59 23:59 11:59 Intake Total 953 1435 1050 Output Total 625 1340 37145 Balance 328 95 -75529 Weight 169 lb 8 oz 170 lb Intake: IV 903 1235 1000 Normal Saline - 1,000 ml 875 @ 125 mls/hr IV ASDIR HOANG Rx#:[id number] Diprivan - 100 ml @ 5 MCG 28 210 100 /KG/MIN 2.722 mls/hr IVPB TITR HOANG Rx#:[id number] 1/2 Normal Saline 1,000 450 900 ml @ 75 mls/hr IV ASDIR HOANG Rx#:[id number] left hand 575 IVPB 50 200 50 Output: Drainage 125 40 150 Right Abdomen 125 40 150 Urine 500 1300 80768 Abr 500 1300 02187 Other: Voiding Method Indwelling Catheter Indwelling Catheter Indwelling Catheter Weight Measurement Method Built in [facility] Built in [facility] Active Medications Chlorhexidine Gluconate (Hibiclens For Decolonization -) 1 applic TP HS HOANG Last Admin: 02/04/17 22:00 Dose: 1 applic Propofol (Diprivan -) 100 mls @ 2.722 mls/hr IVPB TITR HOANG; 5 MCG/KG/MIN PRN Reason: Protocol Last Titration: 02/05/17 09:32 Dose: 0 mcg/kg/min Piperacillin Sod/Tazobactam Sod (Zosyn 2.25gm Ivpb (Pre-Docked)) 50 mls @ 100 mls/hr IVPB Q8H-IV HOANG PRN Reason: Protocol Last Admin: 02/05/17 02:00 Dose: 100 mls/hr Sodium Chloride (1/2 Normal Saline) 1,000 mls @ 75 mls/hr IV ASDIR HOANG Last Admin: 02/04/17 13:39 Dose: 75 mls/hr Morphine Sulfate (Morphine Injection -) 2 mg IVPUSH Q4H PRN PRN Reason: PAIN Last Admin: 02/04/17 23:32 Dose: 2 mg Mupirocin (Bactroban Ointment (For Decolonization) -) 1 applic NS BID [facility] Stop: 02/08/17 09:59 Last Admin: 02/05/17 09:01 Dose: 1 applic Pantoprazole Sodium (Protonix Iv) 40 mg IVPUSH DAILY [facility] Last Admin: 02/05/17 09:00 Dose: 40 mg CBC, BMP 02/05/17 05:50 02/05/17 05:50 Microbiology 02/04/17 08:22 Blood Culture - Preliminary Blood - Peripheral Venous NO GROWTH OBTAINED AFTER 24 HOURS, INCUBATION TO CONTINUE FOR 4 DAYS. 02/04/17 00:57 Blood Culture - Preliminary Blood - Peripheral Venous NO GROWTH OBTAINED AFTER 24 HOURS, INCUBATION TO CONTINUE FOR 4 DAYS. 02/02/17 09:00 Gram Stain - Final Drainage Body Fluid Culture - Preliminary Escherichia Coli Esbl Review Engineer Enterococcus Faecalis Anaerobic Culture - Final NO ANAEROBES WERE ISOLATED 02/03/17 13:25 Urine Culture - Final Urine - Urine Bar NO GROWTH OBTAINED 02/01/17 12:55 Blood Culture - Final Blood - Peripheral Venous Klebsiella Pneumoniae 02/01/17 12:55 Blood Culture - Final Blood - Peripheral Venous Klebsiella Pneumoniae Physical Exam Constitutional: Yes: sedated on vent Cardiovascular: Yes: Regular Rate and Rhythm Respiratory: Yes: Diminished at bases Gastrointestinal: Yes: Normal Bowel Sounds, Soft, Other (percutaneous cholecystostomy). No: Distention, Tenderness Problem List - Problems (1) Calculus of gallbladder 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 Code(s): K80.67 - CALCULUS OF GB AND BILE DUCT W AC AND CHR CHOLECYST W OBST (2) Cholangitis due to bile duct calculus with obstruction Code(s): K80.31 - CALCULUS OF BILE DUCT W CHOLANGITIS, UNSP, WITH OBSTRUCTION (3) Choledocholithiasis with obstruction Code(s): K80.51 - CALCULUS OF BILE DUCT W/O CHOLANGITIS OR CHOLECYST W OBST (4) Dementia with behavioral disturbance Code(s): F03.91 - UNSPECIFIED DEMENTIA WITH BEHAVIORAL DISTURBANCE Qualifiers : Dementia type: unspecified type Qualified Code(s): F03.91 - Unspecified dementia with behavioral disturbance; F03.91 - Unspecified dementia with behavioral disturbance; F03.91 - Unspecified dementia with behavioral disturbance (5) Elevated liver function tests Code(s): R79.89 - OTHER SPECIFIED ABNORMAL FINDINGS OF BLOOD CHEMISTRY (6) Hypertension Code(s): I10 - ESSENTIAL (PRIMARY) HYPERTENSION Qualifiers: Hypertension type: essential hypertension Qualified Code(s): I10 - Essential (primary) hypertension; I10 - Essential (primary) hypertension; I10 - Essential (primary) hypertension (7) Severe sepsis Code(s): A41.9 - SEPSIS, UNSPECIFIED ORGANISM R65.20 - SEVERE SEPSIS WITHOUT SEPTIC SHOCK Assessment/Plan s/p percutaneous cholecystostomy IV antibiotics, f/u cultures weaning trial monitor lytes transfuse prn spoke to . Discussed with nursing staff also. will follow. cc time - 30 min.
[2017-02-05] MEDS ORDERED: PT OWN MED DRAWER 7, Y5N ONE (10:54)
--- NOTE | 2017-02-05 11:34 | PN ---
Teaching Attending Note Name of Resident: Mello Baig ATTENDING PHYSICIAN STATEMENT I saw and evaluated the patient. I reviewed the resident's note and discussed the case with the resident. I agree with the resident's findings and plan as documented. SUBJECTIVE: Patient seen and examined in the ICU. Intubated and sedated. No pressors. No occult bleeding noted. H&H relatively stable. CXR: Some increase in LLL atelectasis/infiltrate Intake & Output 02/02/17 02/03/17 02/04/17 02/05/17 23:59 23:59 23:59 23:59 Intake Total 1100 3600.4 2388 1050 Output Total 145 1030 1965 52512 Balance 955 2570.4 423 -48360 Weight 169 lb 8 oz 170 lb Last Vital Signs Temp Pulse Resp BP Pulse Ox 99 F 50 L 16 167/67 98 02/05/17 10:00 02/05/17 10:00 02/05/17 10:00 02/05/17 10:00 02/05/17 10:00 Active Medications Chlorhexidine Gluconate (Hibiclens For Decolonization -) 1 applic TP HS [facility] Last Admin: 02/04/17 22:00 Dose: 1 applic Propofol (Diprivan -) 100 mls @ 2.722 mls/hr IVPB TITR HOANG; 5 MCG/KG/MIN PRN Reason: Protocol Last Titration: 02/05/17 09:32 Dose: 0 mcg/kg/min Piperacillin Sod/Tazobactam Sod (Zosyn 2.25gm Ivpb (Pre-Docked)) 50 mls @ 100 mls/hr IVPB Q8H-IV HOANG PRN Reason: Protocol Last Admin: 02/05/17 11:24 Dose: 100 mls/hr Sodium Chloride (1/2 Normal Saline) 1,000 mls @ 75 mls/hr IV ASDIR HOANG Last Admin: 02/04/17 13:39 Dose: 75 mls/hr Morphine Sulfate (Morphine Injection -) 2 mg IVPUSH Q4H PRN PRN Reason: PAIN Last Admin: 02/04/17 23:32 Dose: 2 mg Mupirocin (Bactroban Ointment (For Decolonization) -) 1 applic NS BID [facility] Stop: 02/08/17 09:59 Last Admin: 02/05/17 09:01 Dose: 1 applic Pantoprazole Sodium (Protonix Iv) 40 mg IVPUSH DAILY [facility] Last Admin: 02/05/17 09:00 Dose: 40 mg Gen: intubated, sedated Heart: RRR Lung: decreased breath sounds at the bases Abd: soft, nontender, +cholecystostomy with dark/bilious drainage Ext: no edema Laboratory Results - last 24 hr 02/04/17 02/04/17 02/04/17 15:00 15:00 16:00 WBC 7.6 RBC 3.19 L Hgb 10.3 L D Hct 29.6 L MCV 92.7 MCH 32.2 MCHC 34.7 RDW 19.7 H Plt Count 109 L D MPV 10.4 Neutrophils % 86.1 H Lymphocytes % 7.6 L D Monocytes % 3.9 Eosinophils % 2.0 Basophils % 0.4 Sodium Potassium Chloride Carbon Dioxide Anion Gap BUN Creatinine Creat Clearance w eGFR Random Glucose Calcium Total Bilirubin 3.0 H Direct Bilirubin 2.5 H D AST 74 H ALT 167 H Alkaline Phosphatase 103 Total Protein 4.8 L Albumin 1.7 L Lipase 180 02/05/17 02/05/17 05:50 05:50 WBC 5.7 RBC 2.56 L Hgb 8.4 L D Hct 23.6 L D MCV 92.3 MCH 32.8 MCHC 35.6 RDW 19.1 H Plt Count 90 L MPV 10.3 Neutrophils % 80.1 Lymphocytes % 13.2 D Monocytes % 5.4 Eosinophils % 1.2 Basophils % 0.1 Sodium 154 H Potassium 3.7 Chloride 122 H Carbon Dioxide 19 L Anion Gap 13 BUN 60 H Creatinine 1.9 H Creat Clearance w eGFR 33.70 Random Glucose 108 H Calcium 7.1 L Total Bilirubin 2.4 H Direct Bilirubin AST 53 H D ALT 130 H D Alkaline Phosphatase 92 Total Protein 4.5 L Albumin 1.5 L Lipase ASSESSMENT AND PLAN: R/O Cholangitis Klebsiella Bacteremia S/P Cholecystostomy placement Severe Sepsis Acute Hypoxic Respiratory Failure Acute Kidney Injury Anemia - Wean trials with hopes of extubation - ABX - Monitor urine output, creatinine - Normal transfusion thresholds - monitor H/H - For possible cholecystostomy revision when more stable - DVT/GI prophylaxis - continue ICU monitoring Dr Corral critical care time spent in reviewing chart, evaluating patient and formulating plan 35 min
--- NOTE | 2017-02-05 11:38 | PN ---
Physical Exam: SUBJECTIVE: Patient seen and examined at bedside. No acute events overnight. Pt sedated and intubated. OBJECTIVE: Vital Signs Period Temp Pulse Resp BP Sys/Hernandez Pulse Ox Last 24 Hr 99 F-99.9 F 50-97 12-22 110-169/41-73 97-99 GENERAL: The patient is sedated and intubated HEAD: Normal with no signs of trauma. EYES: sclera anicteric, conjunctiva clear. No ptosis. ENT: oropharynx clear without exudates, moist mucous membranes. NECK: Trachea midline, full range of motion, supple. LUNGS: Breath sounds equal, clear to auscultation bilaterally, no wheezes, no crackles HEART: Regular rate and rhythm, S1, S2 without murmur, rub or gallop. ABDOMEN: Soft, nontender, nondistended, normoactive bowel sounds, no guarding, no rebound, no hepatosplenomegaly, no masses. EXTREMITIES: 2+ pulses, warm, well-perfused, no edema. NEUROLOGICAL: sedated PSYCH: sedated SKIN: Warm, dry, normal turgor, no rashes or lesions noted Laboratory Results - last 24 hr 02/04/17 02/04/17 02/04/17 15:00 15:00 16:00 WBC 7.6 RBC 3.19 L Hgb 10.3 L D Hct 29.6 L MCV 92.7 MCH 32.2 MCHC 34.7 RDW 19.7 H Plt Count 109 L D MPV 10.4 Neutrophils % 86.1 H Lymphocytes % 7.6 L D Monocytes % 3.9 Eosinophils % 2.0 Basophils % 0.4 Sodium Potassium Chloride Carbon Dioxide Anion Gap BUN Creatinine Creat Clearance w eGFR Random Glucose Calcium Total Bilirubin 3.0 H Direct Bilirubin 2.5 H D AST 74 H ALT 167 H Alkaline Phosphatase 103 Total Protein 4.8 L Albumin 1.7 L Lipase 180 02/05/17 02/05/17 05:50 05:50 WBC 5.7 RBC 2.56 L Hgb 8.4 L D Hct 23.6 L D MCV 92.3 MCH 32.8 MCHC 35.6 RDW 19.1 H Plt Count 90 L MPV 10.3 Neutrophils % 80.1 Lymphocytes % 13.2 D Monocytes % 5.4 Eosinophils % 1.2 Basophils % 0.1 Sodium 154 H Potassium 3.7 Chloride 122 H Carbon Dioxide 19 L Anion Gap 13 BUN 60 H Creatinine 1.9 H Creat Clearance w eGFR 33.70 Random Glucose 108 H Calcium 7.1 L Total Bilirubin 2.4 H Direct Bilirubin AST 53 H D ALT 130 H D Alkaline Phosphatase 92 Total Protein 4.5 L Albumin 1.5 L Lipase Active Medications Generic Name Dose Route Start Last Admin Trade Name Freq PRN Reason Stop Dose Admin Chlorhexidine Gluconate 1 applic 02/03/17 22:00 02/04/17 22:00 Hibiclens For Decolonization - TP 1 applic HS HOANG Administration Propofol 100 mls @ 2.722 mls/hr 02/03/17 09:00 02/05/17 09:32 Diprivan - IVPB 0 mcg/kg/min TITR HOANG Titration Protocol 5 MCG/KG/MIN Piperacillin Sod/Tazobactam Sod 50 mls @ 100 mls/hr 02/03/17 18:00 02/05/17 11: 24 Zosyn 2.25gm Ivpb (Pre-Docked) IVPB 100 mls/hr Q8H-IV HOANG Administration Protocol Sodium Chloride 1,000 mls @ 75 mls/hr 02/04/17 13:15 02/04/17 13:39 1/2 Normal Saline IV 75 mls/hr ASDIR HOANG Administration Morphine Sulfate 2 mg 02/02/17 13:33 02/04/17 23:32 Morphine Injection - IVPUSH 2 mg Q4H PRN Administration PAIN Mupirocin 1 applic 02/03/17 10:00 02/05/17 09:01 Bactroban Ointment (For Decolonization) - NS 02/08/17 09:59 1 applic BID HOANG Administration Pantoprazole Sodium 40 mg 02/03/17 10:00 02/05/17 09:00 Protonix Iv IVPUSH 40 mg DAILY HOANG Administration ASSESSMENT/PLAN: 86M w/ PMH Alzheimer's, Vitamin B12 deficiency, HTN, Depression, Bipolar, Dementia, Osteoarthritis admitted with ascending cholangitis and fever. Pt had GB drain placed and subsequently had a hypoxemic episode leading to transfer to ICU. #cholangitis -LFTs and Bili still elevated -drain in place and draining 150ml bilious fluid -g neg ena from drain -GI on board -f/u surg recs -per IR, pt should not undergo another procedure at this time as the drain is functional, WBCs are normal, and liver enzymes and bili are trending down. #anemia -Hb 8.4 today does not appear to be dropping acutely -CT shows pericholic gutters, which may represent blood #severe sepsis 2/2 bacteremia w/ Klebsiella -Klebsiella on BCx -NS -zosyn -ID on board #Acute on chronic resp failure -pt intubated at this time -continue sedation #JUAN J -Commercial Director 2.5 -> 2.0 -> 1.9 -Pt receiving 1/2 NS -f/u labs -Nephro on board #FEN -1/2 NS @ 75 -hypernatremic (possibly due to zosyn), hyperchloremic on NS -NPO #PPx -hold lovenox in setting of Hb drop -protonix #Dispo -admitted to ICU Mello Baig MD PGY-1 ICU case d/w attending Pt's son Sunday to be contacted: [phone] Visit type - Emergency Visit Emergency Visit: No - New Patient This patient is new to me today: No - Critical Care Critical Care patient: No - Discharge Referral Referred to [facility] No
[2017-02-05] MEDS: SODIUM CHLORIDE 0.45% 1,000 ML IV SCH (13:35)
--- NOTE | 2017-02-05 15:25 | PN ---
Progress Note, Physician History of Present Illness: sedated intubated minimally responsive - Current Medication List Current Medications: Active Medications Chlorhexidine Gluconate (Hibiclens For Decolonization -) 1 applic TP HS HOANG Last Admin: 02/04/17 22:00 Dose: 1 applic Propofol (Diprivan -) 100 mls @ 2.722 mls/hr IVPB TITR HOANG; 5 MCG/KG/MIN PRN Reason: Protocol Last Titration: 02/05/17 09:32 Dose: 0 mcg/kg/min Piperacillin Sod/Tazobactam Sod (Zosyn 2.25gm Ivpb (Pre-Docked)) 50 mls @ 100 mls/hr IVPB Q8H-IV HOANG PRN Reason: Protocol Last Admin: 02/05/17 11:24 Dose: 100 mls/hr Sodium Chloride (1/2 Normal Saline) 1,000 mls @ 75 mls/hr IV ASDIR HOANG Last Admin: 02/04/17 13:39 Dose: 75 mls/hr Mupirocin (Bactroban Ointment (For Decolonization) -) 1 applic NS BID HOANG Stop: 02/08/17 09:59 Last Admin: 02/05/17 09:01 Dose: 1 applic Pantoprazole Sodium (Protonix Iv) 40 mg IVPUSH DAILY [facility] Last Admin: 02/05/17 09:00 Dose: 40 mg - Objective Vital Signs: Vital Signs Temperature 99 F 02/05/17 10:00 Pulse Rate 49 L 02/05/17 12:00 Respiratory Rate 12 02/05/17 14:15 Blood Pressure 155/58 02/05/17 12:00 O2 Sat by Pulse Oximetry (%) 98 02/05/17 10:00 Constitutional: Yes: Moderate Distress Cardiovascular: Yes: Regular Rate and Rhythm Respiratory: Yes: Intubated, Mechanically Ventilated Gastrointestinal: Yes: Normal Bowel Sounds, Soft, Other (choley tube in place) Musculoskeletal: Yes: WNL Extremities: Yes: WNL Neurological: Yes: Other Psychiatric: Yes: Other Labs: CBC, BMP 02/05/17 05:50 02/05/17 05:50 INR, PTT INR 1.34 (0.82-1.09) H 02/03/17 06:00 Assessment/Plan Problem List - Problems (1) Calculus of gallbladder 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91 - Unspecified dementia with behavioral disturbance; F03.91 - Unspecified dementia with behavioral disturbance; F03.91 - Unspecified dementia with behavioral disturbance fever 6 gm negative bacteremia cx from the gb seen all cx noted plan continue vent support all cx reports noted fluid cx noted repeat blood cx negative rest as per icu will change abx ct scan seen and result noted cc time 40 min
[2017-02-05 15:54] LABS: BASOPHIL 0.3 % (0-2.0); EOSINOPHIL 4.1 % (0-4.5); MCH 31.7 pg (25.7-33.7); MCHC 33.9 g/dl (32.0-35.9); MEAN CELL VOLUME 93.5 fl (80-96); NEUTROPHILS 75.1 % (42.8-82.8); PLATELET COUNT 89 K/MM3 (134-434); RDW 19.4 % (11.9-15.9); WHITE BLOOD COUNT 6.9 K/mm3 (4.0-10.0)
[2017-02-05] MEDS ORDERED: MEROPENEM 1 GM PUSH 20 ML IVPUSH SCH (17:00)
--- NOTE | 2017-02-05 18:38 | PN ---
Progress Note, Physician History of Present Illness: Pt seen and examined at bedside. He remain in the ICU. Pt remains intubated. - Current Medication List Current Medications: Active Medications Chlorhexidine Gluconate (Hibiclens For Decolonization -) 1 applic TP HS [facility] Last Admin: 02/04/17 22:00 Dose: 1 applic Propofol (Diprivan -) 100 mls @ 2.722 mls/hr IVPB TITR HOANG; 5 MCG/KG/MIN PRN Reason: Protocol Last Titration: 02/05/17 09:32 Dose: 0 mcg/kg/min Sodium Chloride (1/2 Normal Saline) 1,000 mls @ 75 mls/hr IV ASDIR [facility] Last Admin: 02/05/17 13:35 Dose: 75 mls/hr Meropenem (Merrem (Restricted To Id) -) 20 mls @ 240 mls/hr IVPUSH BID HOANG Last Admin: 02/05/17 17:20 Dose: 240 mls/hr Ampicillin Sodium 1 gm/ Sodium (Chloride) 100 mls @ 200 mls/hr IVPB Q6H-IV HOANG Mupirocin (Bactroban Ointment (For Decolonization) -) 1 applic NS BID [facility] Stop: 02/08/17 09:59 Last Admin: 02/05/17 09:01 Dose: 1 applic Pantoprazole Sodium (Protonix Iv) 40 mg IVPUSH DAILY [facility] Last Admin: 02/05/17 09:00 Dose: 40 mg - Objective Vital Signs: Vital Signs Temperature 98.9 F 02/05/17 14:00 Pulse Rate 59 L 02/05/17 16:00 Respiratory Rate 12 02/05/17 16:15 Blood Pressure 178/73 02/05/17 16:00 O2 Sat by Pulse Oximetry (%) 98 02/05/17 10:00 Constitutional: Yes: Calm Eyes: Yes: Conjunctiva Clear HENT: Yes: Atraumatic Cardiovascular: Yes: S1, S2 Respiratory: Yes: Mechanically Ventilated Gastrointestinal: Yes: Soft, Other (cholecystostomy tube) Genitourinary: Yes: Bar Present Edema: No Integumentary: No: Rash Neurological: Yes: Lethargy Labs: CBC, BMP 02/05/17 15:15 02/05/17 05:50 INR, PTT INR 1.34 (0.82-1.09) H 02/03/17 06:00 - ....Imaging Chest X-ray: Report Reviewed Problem List - Problems (1) Acute cholangitis due to calculus of bile duct with obstruction Code(s): K80.37 - CALCULUS OF BILE DUCT W ACUTE AND CHRONIC CHOLANGITIS W OBST (2) Hypertension Code(s): I10 - ESSENTIAL (PRIMARY) HYPERTENSION Qualifiers: Hypertension type: essential hypertension Qualified Code(s): I10 - Essential (primary) hypertension; I10 - Essential (primary) hypertension; I10 - Essential (primary) hypertension (3) JUAN J (acute kidney injury) Code(s): N17.9 - ACUTE KIDNEY FAILURE, UNSPECIFIED Assessment/Plan Current Medications Generic Name Dose Route Start Last Admin Trade Name Freq PRN Reason Stop Dose Admin Chlorhexidine Gluconate 1 applic 02/03/17 22:00 02/04/17 22:00 Hibiclens For Decolonization - TP 1 applic HS HOANG Administration Propofol 100 mls @ 2.722 mls/hr 02/03/17 09:00 02/05/17 09:32 Diprivan - IVPB 0 mcg/kg/min TITR HOANG Titration Protocol 5 MCG/KG/MIN Sodium Chloride 1,000 mls @ 75 mls/hr 02/04/17 13:15 02/05/17 13:35 1/2 Normal Saline IV 75 mls/hr ASDIR HOANG Administration Meropenem 20 mls @ 240 mls/hr 02/05/17 17:00 02/05/17 17:20 Merrem (Restricted To Id) - IVPUSH 240 mls/hr BID HOANG Administration Ampicillin Sodium 1 gm/ Sodium 100 mls @ 200 mls/hr 02/05/17 21:00 Chloride IVPB Q6H-IV HOANG Mupirocin 1 applic 02/03/17 10:00 02/05/17 09:01 Bactroban Ointment (For Decolonization) - NS 02/08/17 09:59 1 applic BID HOANG Administration Pantoprazole Sodium 40 mg 02/03/17 10:00 02/05/17 09:00 Protonix Iv IVPUSH 40 mg DAILY HOANG Administration Impression 1. JUAN J 2. acute resp failure 3. sepsis 4. bacteremia 5. alzheimers 6. anemia 7. choledocholithiasis 8. hypernatremia Plan - monitor renal function - can change fluids to d5w - monitor sodium levels - cont abx - vent support - check cxr in am - discussed with unit resident - monitor output from drain - will follow - keep in ICU Dr Haynes
[2017-02-05] MEDS ORDERED: DEXTROSE 5%-WATER - 1,000 ML IV SCH (18:45)
[2017-02-05] MEDS: AMPICILLIN - 1 GM in SODIUM CHLORIDE 100 ML IVPB SCH (21:41)
[2017-02-05] MEDS ORDERED: MEROPENEM 1 GM in DEXTROSE 5%-WATER - 100 ML IVPB SCH (22:00)
[2017-02-05] MEDS: CHLORHEXIDINE GLUCONATE 4% CLEANSER FOR DECOLONIZATION TP SCH (22:00)
[2017-02-06] MEDS: AMPICILLIN - 1 GM in SODIUM CHLORIDE 100 ML IVPB SCH ×4 (03:00→21:00)
[2017-02-06] MEDS: MEROPENEM 1 GM PUSH 20 ML IVPUSH SCH ×3 (04:17→22:00)
[2017-02-06 06:29] LABS: BASOPHIL 0.2 % (0-2.0); EOSINOPHIL 3.7 % (0-4.5); MCHC 35.5 g/dl (32.0-35.9); MEAN PLT VOLUME 10.4 fl (7.5-11.1); NEUTROPHILS 80.6 % (42.8-82.8); PLATELET COUNT 105 K/MM3 (134-434); RDW 19.1 % (11.9-15.9); WHITE BLOOD COUNT 7.3 K/mm3 (4.0-10.0)
--- NOTE | 2017-02-06 06:59 | PN ---
Progress Note, Physician History of Present Illness: seen and examined today in nad. intubated, sedated, mechanically ventilated. unresponsive. - Current Medication List Current Medications: Active Medications Chlorhexidine Gluconate (Hibiclens For Decolonization -) 1 applic TP HS [facility] Last Admin: 02/05/17 22:00 Dose: 1 applic Propofol (Diprivan -) 100 mls @ 2.722 mls/hr IVPB TITR HOANG; 5 MCG/KG/MIN PRN Reason: Protocol Last Titration: 02/05/17 09:32 Dose: 0 mcg/kg/min Ampicillin Sodium 1 gm/ Sodium (Chloride) 100 mls @ 200 mls/hr IVPB Q6H-IV [facility] Last Admin: 02/06/17 03:00 Dose: 200 mls/hr Dextrose (D5w -) 1,000 mls @ 75 mls/hr IV ASDIR [facility] Last Admin: 02/05/17 19:00 Dose: 75 mls/hr Meropenem (Merrem (Restricted To Id) -) 20 mls @ 240 mls/hr IVPUSH BID [facility] Last Admin: 02/06/17 04:17 Dose: 240 mls/hr Mupirocin (Bactroban Ointment (For Decolonization) -) 1 applic NS BID [facility] Stop: 02/08/17 09:59 Last Admin: 02/05/17 22:00 Dose: 1 applic Pantoprazole Sodium (Protonix Iv) 40 mg IVPUSH DAILY [facility] Last Admin: 02/05/17 09:00 Dose: 40 mg - Objective Vital Signs: Vital Signs Temperature 99 F 02/06/17 06:00 Pulse Rate 60 02/06/17 06:00 Respiratory Rate 14 02/06/17 06:00 Blood Pressure 174/62 02/06/17 06:00 O2 Sat by Pulse Oximetry (%) 96 02/05/17 20:00 Constitutional: Yes: No Distress, Calm Eyes: Yes: Conjunctiva Clear, EOM Intact, PERRL HENT: Yes: Atraumatic, Normocephalic Neck: Yes: Supple, Trachea Midline Cardiovascular: Yes: Regular Rate and Rhythm, S1, S2. No: Bradycardia, Tachycardia, Pulse Irregular, Bruit, JVD, Gallop, Murmur, Rub, S3, S4, Varicosities Respiratory: Yes: Regular, Diminished, Intubated, Mechanically Ventilated. No: Rales, Rhonchi, Wheezes Gastrointestinal: Yes: Normal Bowel Sounds, Soft. No: Distention, Tenderness Edema: No Peripheral Pulses WNL: Yes Neurological: No: Alert, Oriented Psychiatric: No: Alert, Oriented Labs: CBC, BMP 02/06/17 06:10 INR, PTT INR 1.34 (0.82-1.09) H 02/03/17 06:00 - ....Imaging Chest X-ray: Report Reviewed, Image Reviewed EKG: Report Reviewed, Image Reviewed Other: Report Reviewed, Image Reviewed (tele-nsr, frequent pvcs, 3 beats NSVT, brief PSVT) Assessment/Plan Sepsis, Klebsiella in blood, Ecoli/enterococcus from cholecystostomy Choledocholithiasis, s/p perc. cholecystostomy ASHD Acute respiratory failure s/p intubation REC: -CK/Troponin mildly elevated in setting of septic shock and BERTA -Probable chronic underlying CAD based on EKG but this does not appear to be ACS /NSTEMI -Echo showed normal LV systolic function -Frequent PVCs, short 3 beats NSVT, brief episodes PSVT on tele, can give trial of low dose bblocker to help suppress arrhythmias -cont supportive/ICU care
[2017-02-06 07:06] LABS: ANION GAP 7 (8-16); CALCIUM 7.2 mg/dL (8.5-10.1); CO2 24 mmol/L (21-32); CREATININE 1.6 mg/dL (0.7-1.3); GLUCOSE,RANDOM 112 mg/dL (74-106)
[2017-02-06 07:19] LABS: ALBUMIN 1.5 g/dl (3.4-5.0); BILIRUBIN,TOTAL 2.4 mg/dL (0.2-1.0); TOT PROT 4.6 g/dl (6.4-8.2)
[2017-02-06] MEDS: PANTOPRAZOLE SODIUM 40 MG VIAL IVPUSH SCH (09:13)
[2017-02-06] MEDS: PROPOFOL 100 ML IVPB SCH (09:16)
[2017-02-06] MEDS: MUPIROCIN 2% TOPICAL OINTMENT FOR DECOLONIZATION NS SCH ×2 (09:16→22:00)
--- NOTE | 2017-02-06 10:31 | PN ---
Progress Note, Physician Chief Complaint: sedated and intubated - Current Medication List Current Medications: Active Medications Chlorhexidine Gluconate (Hibiclens For Decolonization -) 1 applic TP HS [facility] Last Admin: 02/05/17 22:00 Dose: 1 applic Propofol (Diprivan -) 100 mls @ 2.722 mls/hr IVPB TITR HOANG; 5 MCG/KG/MIN PRN Reason: Protocol Last Admin: 02/06/17 09:16 Dose: Not Given Ampicillin Sodium 1 gm/ Sodium (Chloride) 100 mls @ 200 mls/hr IVPB Q6H-IV [facility] Last Admin: 02/06/17 08:12 Dose: 200 mls/hr Dextrose (D5w -) 1,000 mls @ 75 mls/hr IV ASDIR [facility] Last Admin: 02/05/17 19:00 Dose: 75 mls/hr Meropenem (Merrem (Restricted To Id) -) 20 mls @ 240 mls/hr IVPUSH BID [facility] Last Admin: 02/06/17 09:15 Dose: 240 mls/hr Metoprolol Tartrate (Lopressor -) 25 mg PO BID [facility] Mupirocin (Bactroban Ointment (For Decolonization) -) 1 applic NS BID [facility] Stop: 02/08/17 09:59 Last Admin: 02/06/17 09:16 Dose: 1 applic Pantoprazole Sodium (Protonix Iv) 40 mg IVPUSH DAILY [facility] Last Admin: 02/06/17 09:13 Dose: 40 mg - Objective Vital Signs: Vital Signs Temperature 99 F 02/06/17 06:00 Pulse Rate 60 02/06/17 06:00 Respiratory Rate 14 02/06/17 07:46 Blood Pressure 174/62 02/06/17 06:00 O2 Sat by Pulse Oximetry (%) 96 02/05/17 20:00 Constitutional: Yes: No Distress, Other (intubated) Cardiovascular: Yes: Regular Rate and Rhythm Respiratory: Yes: Diminished Gastrointestinal: Yes: Soft, Other (drain). No: Distention, Tenderness Edema: Yes Labs: CBC, BMP 02/06/17 06:10 02/06/17 06:10 INR, PTT INR 1.34 (0.82-1.09) H 02/03/17 06:00 Problem List - Problems (1) Calculus of gallbladder 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 Code(s): K80.67 - CALCULUS OF GB AND BILE DUCT W AC AND CHR CHOLECYST W OBST (2) Cholangitis due to bile duct calculus with obstruction Code(s): K80.31 - CALCULUS OF BILE DUCT W CHOLANGITIS, UNSP, WITH OBSTRUCTION (3) Choledocholithiasis with obstruction Code(s): K80.51 - CALCULUS OF BILE DUCT W/O CHOLANGITIS OR CHOLECYST W OBST (4) Dementia with behavioral disturbance Code(s): F03.91 - UNSPECIFIED DEMENTIA WITH BEHAVIORAL DISTURBANCE Qualifiers : Dementia type: unspecified type Qualified Code(s): F03.91 - Unspecified dementia with behavioral disturbance; F03.91 - Unspecified dementia with behavioral disturbance; F03.91 - Unspecified dementia with behavioral disturbance (5) Elevated liver function tests Code(s): R79.89 - OTHER SPECIFIED ABNORMAL FINDINGS OF BLOOD CHEMISTRY (6) Hypertension Code(s): I10 - ESSENTIAL (PRIMARY) HYPERTENSION Qualifiers: Hypertension type: essential hypertension Qualified Code(s): I10 - Essential (primary) hypertension; I10 - Essential (primary) hypertension; I10 - Essential (primary) hypertension (7) Severe sepsis Code(s): A41.9 - SEPSIS, UNSPECIFIED ORGANISM R65.20 - SEVERE SEPSIS WITHOUT SEPTIC SHOCK Assessment/Plan PLAN s/p percutaneous cholecystostomy revision of PTC pending IR IV antibiotics, repeat blood cultures negative s/p PRBC noted CT abd keep NPO IV fluids LFTs decreasing renal function improving not on pressors continue vent support DVT prophylaxis-- SCD
--- NOTE | 2017-02-06 11:19 | PN ---
Progress Note, Physician History of Present Illness: continues to be sedated and intubated no gross changes - Current Medication List Current Medications: Active Medications Chlorhexidine Gluconate (Hibiclens For Decolonization -) 1 applic TP HS [facility] Last Admin: 02/05/17 22:00 Dose: 1 applic Propofol (Diprivan -) 100 mls @ 2.722 mls/hr IVPB TITR HOANG; 5 MCG/KG/MIN PRN Reason: Protocol Last Admin: 02/06/17 09:16 Dose: Not Given Ampicillin Sodium 1 gm/ Sodium (Chloride) 100 mls @ 200 mls/hr IVPB Q6H-IV [facility] Last Admin: 02/06/17 08:12 Dose: 200 mls/hr Dextrose (D5w -) 1,000 mls @ 75 mls/hr IV ASDIR [facility] Last Admin: 02/05/17 19:00 Dose: 75 mls/hr Meropenem (Merrem (Restricted To Id) -) 20 mls @ 240 mls/hr IVPUSH BID [facility] Last Admin: 02/06/17 09:15 Dose: 240 mls/hr Metoprolol Tartrate (Lopressor -) 25 mg PO BID [facility] Mupirocin (Bactroban Ointment (For Decolonization) -) 1 applic NS BID [facility] Stop: 02/08/17 09:59 Last Admin: 02/06/17 09:16 Dose: 1 applic Pantoprazole Sodium (Protonix Iv) 40 mg IVPUSH DAILY [facility] Last Admin: 02/06/17 09:13 Dose: 40 mg - Objective Vital Signs: Vital Signs Temperature 99.5 F 02/06/17 10:00 Pulse Rate 76 02/06/17 10:00 Respiratory Rate 21 02/06/17 10:00 Blood Pressure 176/76 02/06/17 10:00 O2 Sat by Pulse Oximetry (%) 97 02/06/17 09:00 Constitutional: Yes: Other Cardiovascular: Yes: Regular Rate and Rhythm Respiratory: Yes: Intubated, Mechanically Ventilated Gastrointestinal: Yes: Normal Bowel Sounds, Soft, Other (choley tube place) Musculoskeletal: Yes: WNL Extremities: Yes: WNL Wound/Incision: Yes: Other Neurological: Yes: Other Labs: CBC, BMP 02/06/17 06:10 02/06/17 06:10 INR, PTT INR 1.34 (0.82-1.09) H 02/03/17 06:00 Assessment/Plan Problem List - Problems (1) Calculus of gallbladder 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91 - Unspecified dementia with behavioral disturbance; F03.91 - Unspecified dementia with behavioral disturbance; F03.91 - Unspecified dementia with behavioral disturbance fever 6 gm negative bacteremia cx from the gb seen all cx noted plan continue vent support continue abx close watch patient remaining stable hydration rest as per icu cc time 40 min
--- NOTE | 2017-02-06 12:28 | PN ---
Progress Note, Physician History of Present Illness: Chart reviewed. No events. Remains on vent support. Hemodynamically stable. Hgb 9. Off propofol this am, more animated, however doesn't respond to his name. - Current Medication List Current Medications: Active Medications Chlorhexidine Gluconate (Hibiclens For Decolonization -) 1 applic TP HS [facility] Last Admin: 02/05/17 22:00 Dose: 1 applic Propofol (Diprivan -) 100 mls @ 2.722 mls/hr IVPB TITR HOANG; 5 MCG/KG/MIN PRN Reason: Protocol Last Admin: 02/06/17 09:16 Dose: Not Given Ampicillin Sodium 1 gm/ Sodium (Chloride) 100 mls @ 200 mls/hr IVPB Q6H-IV [facility] Last Admin: 02/06/17 08:12 Dose: 200 mls/hr Dextrose (D5w -) 1,000 mls @ 75 mls/hr IV ASDIR [facility] Last Admin: 02/05/17 19:00 Dose: 75 mls/hr Meropenem (Merrem (Restricted To Id) -) 20 mls @ 240 mls/hr IVPUSH BID [facility] Last Admin: 02/06/17 09:15 Dose: 240 mls/hr Metoprolol Tartrate (Lopressor -) 25 mg PO BID [facility] Mupirocin (Bactroban Ointment (For Decolonization) -) 1 applic NS BID [facility] Stop: 02/08/17 09:59 Last Admin: 02/06/17 09:16 Dose: 1 applic Pantoprazole Sodium (Protonix Iv) 40 mg IVPUSH DAILY [facility] Last Admin: 02/06/17 09:13 Dose: 40 mg - Objective Vital Signs: Vital Signs Temperature 99.5 F 02/06/17 10:00 Pulse Rate 66 02/06/17 12:00 Respiratory Rate 18 02/06/17 12:21 Blood Pressure 174/68 02/06/17 12:00 O2 Sat by Pulse Oximetry (%) 97 02/06/17 10:25 Constitutional: Yes: Calm Eyes: Yes: Conjunctiva Clear Cardiovascular: Yes: Regular Rate and Rhythm Respiratory: Yes: Regular Gastrointestinal: Yes: Soft. No: Distention Labs: CBC, BMP 02/06/17 06:10 02/06/17 06:10 INR, PTT INR 1.34 (0.82-1.09) H 02/03/17 06:00 CBCD WBC 7.3 K/mm3 (4.0-10.0) 02/06/17 06:10 RBC 2.73 M/mm3 (4.00-5.60) L 02/06/17 06:10 Hgb 9.0 GM/dL (11.7-16.9) L 02/06/17 06:10 Hct 25.4 % (35.4-49) L 02/06/17 06:10 MCV 93.0 fl (80-96) 02/06/17 06:10 MCHC 35.5 g/dl (32.0-35.9) 02/06/17 06:10 RDW 19.1 % (11.9-15.9) H 02/06/17 06:10 Plt Count 105 K/MM3 (134-434) L 02/06/17 06:10 MPV 10.4 fl (7.5-11.1) 02/06/17 06:10 CMP Sodium 153 mmol/L (136-145) H 02/06/17 06:10 Potassium 3.8 mmol/L (3.5-5.1) 02/06/17 06:10 Chloride 122 mmol/L (98-107) H 02/06/17 06:10 Carbon Dioxide 24 mmol/L (21-32) D 02/06/17 06:10 Anion Gap 7 (8-16) L 02/06/17 06:10 BUN 55 mg/dL (7-18) H 02/06/17 06:10 Creatinine 1.6 mg/dL (0.7-1.3) H 02/06/17 06:10 Creat Clearance w eGFR 33.70 (>60) 02/05/17 05:50 Calcium 7.2 mg/dL (8.5-10.1) L 02/06/17 06:10 Total Bilirubin 2.4 mg/dL (0.2-1.0) H 02/06/17 06:10 AST 58 U/L (15-37) H 02/06/17 06:10 ALT 111 U/L (12-78) H 02/06/17 06:10 Alkaline Phosphatase 97 U/L (45-117) 02/06/17 06:10 Total Protein 4.6 g/dl (6.4-8.2) L 02/06/17 06:10 Albumin 1.5 g/dl (3.4-5.0) L 02/06/17 06:10 Problem List - Problems (1) Cholangitis due to bile duct calculus with obstruction Code(s): K80.31 - CALCULUS OF BILE DUCT W CHOLANGITIS, UNSP, WITH OBSTRUCTION (2) Choledocholithiasis with obstruction Code(s): K80.51 - CALCULUS OF BILE DUCT W/O CHOLANGITIS OR CHOLECYST W OBST (3) Cholelithiasis Code(s): K80.20 - CALCULUS OF GALLBLADDER W/O CHOLECYSTITIS W/O OBSTRUCTION Assessment/Plan Cholangitis and acute blood loss anemia in a debilitated patient. . E.coli in bile and klebsiella PNA in blood. ID follows liver chemistry, bili and ALP are trending down. Lipase normalized. weaning as per ICU monitor bili, alp, liver chem
--- NOTE | 2017-02-06 13:00 | PN ---
Progress Note (short form) - Note Progress Note: PULM/CCM SUBJECTIVE: Patient seen and examined in the ICU. -bilis equivicoal -crit and hemodynamic stable -Na still high, free water being replaced CXR:reviewed from 02/05, L> R congestive changes, ETT in statisfactory position if a bit deep. Intake & Output 02/02/17 02/03/17 02/04/17 02/05/17 23:59 23:59 23:59 23:59 Intake Total 1100 3600.4 2388 1050 Output Total 145 1030 1965 79369 Balance 955 2570.4 423 -45273 Weight 169 lb 8 oz 170 lb Last Vital Signs Temp Pulse Resp BP Pulse Ox 99 F 50 L 16 167/67 98 02/05/17 10:00 02/05/17 10:00 02/05/17 10:00 02/05/17 10:00 02/05/17 10:00 CBCD WBC 7.3 K/mm3 (4.0-10.0) 02/06/17 06:10 RBC 2.73 M/mm3 (4.00-5.60) L 02/06/17 06:10 Hgb 9.0 GM/dL (11.7-16.9) L 02/06/17 06:10 Hct 25.4 % (35.4-49) L 02/06/17 06:10 MCV 93.0 fl (80-96) 02/06/17 06:10 MCHC 35.5 g/dl (32.0-35.9) 02/06/17 06:10 RDW 19.1 % (11.9-15.9) H 02/06/17 06:10 Plt Count 105 K/MM3 (134-434) L 02/06/17 06:10 MPV 10.4 fl (7.5-11.1) 02/06/17 06:10 CMP Sodium 153 mmol/L (136-145) H 02/06/17 06:10 Potassium 3.8 mmol/L (3.5-5.1) 02/06/17 06:10 Chloride 122 mmol/L (98-107) H 02/06/17 06:10 Carbon Dioxide 24 mmol/L (21-32) D 02/06/17 06:10 Anion Gap 7 (8-16) L 02/06/17 06:10 BUN 55 mg/dL (7-18) H 02/06/17 06:10 Creatinine 1.6 mg/dL (0.7-1.3) H 02/06/17 06:10 Creat Clearance w eGFR 33.70 (>60) 02/05/17 05:50 Calcium 7.2 mg/dL (8.5-10.1) L 02/06/17 06:10 Total Bilirubin 2.4 mg/dL (0.2-1.0) H 02/06/17 06:10 AST 58 U/L (15-37) H 02/06/17 06:10 ALT 111 U/L (12-78) H 02/06/17 06:10 Alkaline Phosphatase 97 U/L (45-117) 02/06/17 06:10 Total Protein 4.6 g/dl (6.4-8.2) L 02/06/17 06:10 Albumin 1.5 g/dl (3.4-5.0) L 02/06/17 06:10 Active Medications Chlorhexidine Gluconate (Hibiclens For Decolonization -) 1 applic TP HS [facility] Last Admin: 02/04/17 22:00 Dose: 1 applic Propofol (Diprivan -) 100 mls @ 2.722 mls/hr IVPB TITR [facility]ANG; 5 MCG/KG/MIN PRN Reason: Protocol Last Titration: 02/05/17 09:32 Dose: 0 mcg/kg/min Piperacillin Sod/Tazobactam Sod (Zosyn 2.25gm Ivpb (Pre-Docked)) 50 mls @ 100 mls/hr IVPB Q8H-IV [facility] PRN Reason: Protocol Last Admin: 02/05/17 11:24 Dose: 100 mls/hr Sodium Chloride (1/2 Normal Saline) 1,000 mls @ 75 mls/hr IV ASDIR [facility] Last Admin: 02/04/17 13:39 Dose: 75 mls/hr Morphine Sulfate (Morphine Injection -) 2 mg IVPUSH Q4H PRN PRN Reason: PAIN Last Admin: 02/04/17 23:32 Dose: 2 mg Mupirocin (Bactroban Ointment (For Decolonization) -) 1 applic NS BID [facility] Stop: 02/08/17 09:59 Last Admin: 02/05/17 09:01 Dose: 1 applic Pantoprazole Sodium (Protonix Iv) 40 mg IVPUSH DAILY [facility] Last Admin: 02/05/17 09:00 Dose: 40 mg Microbiology 02/04/17 08:22 Blood - Peripheral Venous Blood Culture - Preliminary NO GROWTH OBTAINED AFTER 48 HOURS, INCUBATION TO CONTINUE FOR 3 DAYS. 02/04/17 00:57 Blood - Peripheral Venous Blood Culture - Preliminary NO GROWTH OBTAINED AFTER 48 HOURS, INCUBATION TO CONTINUE FOR 3 DAYS. 02/02/17 09:00 Drainage Gram Stain - Final 02/02/17 09:00 Drainage Body Fluid Culture - Final Escherichia Coli Esbl Radiology Therapist Enterococcus Faecalis 02/02/17 09:00 Drainage Anaerobic Culture - Final NO ANAEROBES WERE ISOLATED Gen: intubated, sedated Heart: RRR Lung: decreased breath sounds at the bases Abd: soft, nontender, +cholecystostomy with dark/bilious drainage Ext: trace edema edema Neuro: non-focal ASSESSMENT AND PLAN: R/O Cholangitis Klebsiella Bacteremia S/P Cholecystostomy placement Severe Sepsis Acute Hypoxic Respiratory Failure Acute Kidney Injury Anemia hypernatremia - hold on extubation until clear plan for mainor tube - ABX --> PT - Monitor urine output, creatinine, Free water replacement - Normal transfusion thresholds - monitor H/H - possible cholecystostomy revision with IR next week, trend bilis/ transaminitis - DVT/GI prophylaxis - continue ICU monitoring Mckay Sotelo ACNP 4045 35min CCT
[2017-02-06] MEDS: METOPROLOL TARTRATE 25 MG TABLET (FP) PO SCH ×2 (14:07→22:00)
[2017-02-06] MEDS ORDERED: DEXTROSE 5%-WATER - 1,000 ML IV SCH (15:46)
--- NOTE | 2017-02-06 15:46 | PN ---
Progress Note, Physician History of Present Illness: Pt seen and examined at bedside. He remains in the ICU. Pt remains intubated. - Current Medication List Current Medications: Active Medications Chlorhexidine Gluconate (Hibiclens For Decolonization -) 1 applic TP HS [facility] Last Admin: 02/05/17 22:00 Dose: 1 applic Propofol (Diprivan -) 100 mls @ 2.722 mls/hr IVPB TITR [facility]ANG; 5 MCG/KG/MIN PRN Reason: Protocol Last Admin: 02/06/17 09:16 Dose: Not Given Ampicillin Sodium 1 gm/ Sodium (Chloride) 100 mls @ 200 mls/hr IVPB Q6H-IV [facility] Last Admin: 02/06/17 14:08 Dose: 200 mls/hr Dextrose (D5w -) 1,000 mls @ 75 mls/hr IV ASDIR [facility] Last Admin: 02/05/17 19:00 Dose: 75 mls/hr Meropenem (Merrem (Restricted To Id) -) 20 mls @ 240 mls/hr IVPUSH BID [facility] Last Admin: 02/06/17 09:15 Dose: 240 mls/hr Metoprolol Tartrate (Lopressor -) 25 mg PO BID [facility] Last Admin: 02/06/17 14:07 Dose: Not Given Mupirocin (Bactroban Ointment (For Decolonization) -) 1 applic NS BID [facility] Stop: 02/08/17 09:59 Last Admin: 02/06/17 09:16 Dose: 1 applic Pantoprazole Sodium (Protonix Iv) 40 mg IVPUSH DAILY [facility] Last Admin: 02/06/17 09:13 Dose: 40 mg - Objective Vital Signs: Vital Signs Temperature 98.5 F 02/06/17 14:00 Pulse Rate 89 02/06/17 15:00 Respiratory Rate 15 02/06/17 15:03 Blood Pressure 174/103 02/06/17 15:00 O2 Sat by Pulse Oximetry (%) 97 02/06/17 10:25 Constitutional: Yes: Calm Eyes: Yes: Conjunctiva Clear HENT: Yes: Atraumatic Cardiovascular: Yes: S1, S2 Respiratory: Yes: Mechanically Ventilated Gastrointestinal: Yes: Soft, Other (cholecystostomy tube) Genitourinary: Yes: Bar Present Musculoskeletal: Yes: Muscle Weakness Edema: No Neurological: Yes: Lethargy Labs: CBC, BMP 02/06/17 06:10 02/06/17 06:10 INR, PTT INR 1.34 (0.82-1.09) H 02/03/17 06:00 Problem List - Problems (1) Acute cholangitis due to calculus of bile duct with obstruction Code(s): K80.37 - CALCULUS OF BILE DUCT W ACUTE AND CHRONIC CHOLANGITIS W OBST (2) Hypertension Code(s): I10 - ESSENTIAL (PRIMARY) HYPERTENSION Qualifiers: Hypertension type: essential hypertension Qualified Code(s): I10 - Essential (primary) hypertension; I10 - Essential (primary) hypertension; I10 - Essential (primary) hypertension (3) JUAN J (acute kidney injury) Code(s): N17.9 - ACUTE KIDNEY FAILURE, UNSPECIFIED Assessment/Plan Current Medications Generic Name Dose Route Start Last Admin Trade Name Freq PRN Reason Stop Dose Admin Chlorhexidine Gluconate 1 applic 02/03/17 22:00 02/05/17 22:00 Hibiclens For Decolonization - TP 1 applic HS [facility] Administration Propofol 100 mls @ 2.722 mls/hr 02/03/17 09:00 02/06/17 09:16 Diprivan - IVPB Not Given TITR HOANG Protocol 5 MCG/KG/MIN Ampicillin Sodium 1 gm/ Sodium 100 mls @ 200 mls/hr 02/05/17 21:00 02/06/17 14: 08 Chloride IVPB 200 mls/hr Q6H-IV [facility] Administration Dextrose 1,000 mls @ 75 mls/hr 02/05/17 18:45 02/05/17 19:00 D5w - IV 75 mls/hr ASDIR [facility] Administration Meropenem 20 mls @ 240 mls/hr 02/06/17 05:00 02/06/17 09:15 Merrem (Restricted To Id) - IVPUSH 240 mls/hr BID [facility] Administration Metoprolol Tartrate 25 mg 02/06/17 10:00 02/06/17 14:07 Lopressor - PO Not Given BID HOANG Mupirocin 1 applic 02/03/17 10:00 02/06/17 09:16 Bactroban Ointment (For Decolonization) - NS 02/08/17 09:59 1 applic BID [facility] Administration Pantoprazole Sodium 40 mg 02/03/17 10:00 02/06/17 09:13 Protonix Iv IVPUSH 40 mg DAILY [facility] Administration Impression 1. JUAN J 2. acute resp failure 3. sepsis 4. bacteremia 5. alzheimers 6. anemia 7. choledocholithiasis 8. hypernatremia Plan - renal function is improving - cont with d5w, will increase rate to 83 - pt has a total free water deficit of about 3.6 liters - monitor sodium level - surgery follow up for plan - discussed care with - cont abx per ID - renal function is improving - check cxr - monitor output from drain - will follow - keep in ICU Dr Haynes
[2017-02-06] MEDS: CHLORHEXIDINE GLUCONATE 4% CLEANSER FOR DECOLONIZATION TP SCH (22:00)
[2017-02-06] MEDS ORDERED: PT OWN MED DRAWER 7, Y5N ONE (23:20)
[2017-02-07] MEDS: AMPICILLIN - 1 GM in SODIUM CHLORIDE 100 ML IVPB SCH ×4 (02:04→21:58)
[2017-02-07 06:50] LABS: ALBUMIN 1.5 g/dl (3.4-5.0); ANION GAP 8 (8-16); BILIRUBIN,DIRECT 2.3 mg/dL (0.0-0.2); CO2 24 mmol/L (21-32); CREATININE 1.3 mg/dL (0.7-1.3); GLUCOSE,RANDOM 125 mg/dL (74-106); SGOT/AST 37 U/L (15-37); SGPT/ALT 81 U/L (12-78)
[2017-02-07 06:52] LABS: ALK PHOS 98 U/L (45-117); TOT PROT 4.4 g/dl (6.4-8.2)
[2017-02-07 07:05] LABS: CALCIUM 6.7 mg/dL (8.5-10.1)
[2017-02-07] MEDS ORDERED: PT OWN MED DRAWER 7, Y5N ONE ×3 (08:22→17:06)
[2017-02-07] MEDS: PROPOFOL 100 ML IVPB SCH (09:00)
--- NOTE | 2017-02-07 09:01 | PN ---
Progress Note, Physician Chief Complaint: weaning trial-- pt unable to wean per staff still intubated - Current Medication List Current Medications: Active Medications Chlorhexidine Gluconate (Hibiclens For Decolonization -) 1 applic TP HS [facility] Last Admin: 02/06/17 22:00 Dose: 1 applic Propofol (Diprivan -) 100 mls @ 2.722 mls/hr IVPB TITR [facility]ANG; 5 MCG/KG/MIN PRN Reason: Protocol Last Admin: 02/06/17 09:16 Dose: Not Given Ampicillin Sodium 1 gm/ Sodium (Chloride) 100 mls @ 200 mls/hr IVPB Q6H-IV [facility] Last Admin: 02/07/17 08:33 Dose: 200 mls/hr Meropenem (Merrem (Restricted To Id) -) 20 mls @ 240 mls/hr IVPUSH BID [facility] Last Admin: 02/06/17 22:00 Dose: 240 mls/hr Dextrose (D5w -) 1,000 mls @ 83 mls/hr IV ASDIR [facility] Last Admin: 02/06/17 16:27 Dose: 83 mls/hr Metoprolol Tartrate (Lopressor -) 25 mg PO BID [facility] Last Admin: 02/06/17 22:00 Dose: 25 mg Mupirocin (Bactroban Ointment (For Decolonization) -) 1 applic NS BID [facility] Stop: 02/08/17 09:59 Last Admin: 02/06/17 22:00 Dose: 1 applic Pantoprazole Sodium (Protonix Iv) 40 mg IVPUSH DAILY [facility] Last Admin: 02/06/17 09:13 Dose: 40 mg - Objective Vital Signs: Vital Signs Temperature 98.9 F 02/07/17 06:00 Pulse Rate 66 02/07/17 06:00 Respiratory Rate 15 02/07/17 07:43 Blood Pressure 134/54 02/07/17 06:00 O2 Sat by Pulse Oximetry (%) 97 02/06/17 20:00 Constitutional: Yes: No Distress Cardiovascular: Yes: Regular Rate and Rhythm Respiratory: Yes: Diminished Gastrointestinal: Yes: Normal Bowel Sounds, Soft, Abdomen, Obese, Other (CARMELITA drain). No: Tenderness Edema: Yes Edema: LLE: Trace, RLE: Trace Labs: CBC, BMP 02/06/17 06:10 02/07/17 06:00 INR, PTT INR 1.34 (0.82-1.09) H 02/03/17 06:00 Problem List - Problems (1) Calculus of gallbladder 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 Code(s): K80.67 - CALCULUS OF GB AND BILE DUCT W AC AND CHR CHOLECYST W OBST (2) Cholangitis due to bile duct calculus with obstruction Code(s): K80.31 - CALCULUS OF BILE DUCT W CHOLANGITIS, UNSP, WITH OBSTRUCTION (3) Choledocholithiasis with obstruction Code(s): K80.51 - CALCULUS OF BILE DUCT W/O CHOLANGITIS OR CHOLECYST W OBST (4) Dementia with behavioral disturbance Code(s): F03.91 - UNSPECIFIED DEMENTIA WITH BEHAVIORAL DISTURBANCE Qualifiers : Dementia type: unspecified type Qualified Code(s): F03.91 - Unspecified dementia with behavioral disturbance; F03.91 - Unspecified dementia with behavioral disturbance; F03.91 - Unspecified dementia with behavioral disturbance (5) Elevated liver function tests Code(s): R79.89 - OTHER SPECIFIED ABNORMAL FINDINGS OF BLOOD CHEMISTRY (6) Hypertension Code(s): I10 - ESSENTIAL (PRIMARY) HYPERTENSION Qualifiers: Hypertension type: essential hypertension Qualified Code(s): I10 - Essential (primary) hypertension; I10 - Essential (primary) hypertension; I10 - Essential (primary) hypertension (7) Severe sepsis Code(s): A41.9 - SEPSIS, UNSPECIFIED ORGANISM R65.20 - SEVERE SEPSIS WITHOUT SEPTIC SHOCK Assessment/Plan PLAN s/p CARMELITA drain revision of PTC pending IR IV antibiotics, repeat blood cultures negative s/p PRBC noted CT abd keep NPO IV fluids LFTs decreasing renal function improving weaning trial per ICU not on pressors continue vent support DVT prophylaxis-- SCD
[2017-02-07] MEDS: METOPROLOL TARTRATE 25 MG TABLET (FP) PO SCH ×2 (09:06→21:28)
[2017-02-07] MEDS: MEROPENEM 1 GM PUSH 20 ML IVPUSH SCH ×2 (09:06→21:28)
[2017-02-07] MEDS: PANTOPRAZOLE SODIUM 40 MG VIAL IVPUSH SCH (09:14)
[2017-02-07] MEDS: MUPIROCIN 2% TOPICAL OINTMENT FOR DECOLONIZATION NS SCH ×2 (09:15→21:27)
[2017-02-07] MEDS ORDERED: POTASSIUM CHLORIDE ORAL LIQUID 20 MEQ/15 ML PO ONE (09:30)
--- NOTE | 2017-02-07 10:53 | PN ---
Progress Note, Physician History of Present Illness: seen and examined today in nad. intubated, unresponsive. no overnight events. - Current Medication List Current Medications: Active Medications Chlorhexidine Gluconate (Hibiclens For Decolonization -) 1 applic TP HS [facility] [place] Last Admin: 02/06/17 22:00 Dose: 1 applic Propofol (Diprivan -) 100 mls @ 2.722 mls/hr IVPB TITR [facility]ANG; 5 MCG/KG/MIN PRN Reason: Protocol Last Admin: 02/06/17 09:16 Dose: Not Given Ampicillin Sodium 1 gm/ Sodium (Chloride) 100 mls @ 200 mls/hr IVPB Q6H-IV [facility] Last Admin: 02/07/17 08:33 Dose: 200 mls/hr Meropenem (Merrem (Restricted To Id) -) 20 mls @ 240 mls/hr IVPUSH BID [facility] Last Admin: 02/07/17 09:06 Dose: 240 mls/hr Dextrose (D5w -) 1,000 mls @ 83 mls/hr IV ASDIR [facility] Last Admin: 02/06/17 16:27 Dose: 83 mls/hr Metoprolol Tartrate (Lopressor -) 25 mg PO BID [facility] Last Admin: 02/07/17 09:06 Dose: 25 mg Mupirocin (Bactroban Ointment (For Decolonization) -) 1 applic NS BID [facility] Stop: 02/08/17 09:59 Last Admin: 02/07/17 09:15 Dose: 1 applic Pantoprazole Sodium (Protonix Iv) 40 mg IVPUSH DAILY [facility] Last Admin: 02/07/17 09:14 Dose: 40 mg - Objective Vital Signs: Vital Signs Temperature 99 F 02/07/17 10:00 Pulse Rate 66 02/07/17 10:00 Respiratory Rate 15 02/07/17 10:00 Blood Pressure 155/93 02/07/17 10:00 O2 Sat by Pulse Oximetry (%) 98 02/07/17 10:00 Constitutional: Yes: No Distress, Calm Eyes: Yes: Conjunctiva Clear, EOM Intact, PERRL HENT: Yes: Atraumatic, Normocephalic Neck: Yes: Supple, Trachea Midline Cardiovascular: Yes: Regular Rate and Rhythm, S1, S2. No: Bradycardia, Tachycardia, Pulse Irregular, Bruit, JVD, Gallop, Murmur, Rub, S3, S4, Varicosities Respiratory: Yes: Regular, CTA Bilaterally. No: Rales, Rhonchi, Wheezes Gastrointestinal: Yes: Normal Bowel Sounds, Soft. No: Distention, Tenderness Musculoskeletal: Yes: WNL Extremities: Yes: WNL Edema: No Peripheral Pulses WNL: Yes Peripheral Pulses: Left Doralis Pedis: 2+, Right Dorsalis Pedis: 2+ Neurological: No: Alert, Oriented Psychiatric: No: Alert, Oriented Labs: CBC, BMP 02/06/17 06:10 02/07/17 06:00 INR, PTT INR 1.34 (0.82-1.09) H 02/03/17 06:00 - ....Imaging Chest X-ray: Report Reviewed, Image Reviewed EKG: Report Reviewed, Image Reviewed Other: Report Reviewed, Image Reviewed (tele-nsr, pvcs, couplets, triplets, 5 beats nsvt, short PSVT) Assessment/Plan Sepsis, Klebsiella in blood, Ecoli/enterococcus from cholecystostomy Choledocholithiasis, s/p perc. cholecystostomy ASHD Acute respiratory failure s/p intubation REC: -CK/Troponin mildly elevated in setting of septic shock and BERTA -Probable chronic underlying CAD based on EKG but this does not appear to be ACS /NSTEMI -Echo showed normal LV systolic function -Frequent PVCs, short episodes of NSVT, brief episodes PSVT on tele -tolerating low dose metoprolol thus far, cont current dose for now and if tolerates will plan to consider uptitration tomorrow -cont supportive/ICU care
--- NOTE | 2017-02-07 12:13 | PN ---
Progress Note (short form) - Note Progress Note: PULM / CCM Pt Seen & examined in the ICU. Pt remains intubated & sedated on the Vent. Comfortable, hemodynaically stable, bilis equivicoal. Active Medications Chlorhexidine Gluconate (Hibiclens For Decolonization -) 1 applic TP HS [facility] Last Admin: 02/06/17 22:00 Dose: 1 applic Propofol (Diprivan -) 100 mls @ 2.722 mls/hr IVPB TITR [facility]ANG; 5 MCG/KG/MIN PRN Reason: Protocol Last Admin: 02/06/17 09:16 Dose: Not Given Ampicillin Sodium 1 gm/ Sodium (Chloride) 100 mls @ 200 mls/hr IVPB Q6H-IV [facility] Last Admin: 02/07/17 08:33 Dose: 200 mls/hr Meropenem (Merrem (Restricted To Id) -) 20 mls @ 240 mls/hr IVPUSH BID [facility] Last Admin: 02/07/17 09:06 Dose: 240 mls/hr Dextrose (D5w -) 1,000 mls @ 83 mls/hr IV ASDIR [facility] Last Admin: 02/06/17 16:27 Dose: 83 mls/hr Metoprolol Tartrate (Lopressor -) 25 mg PO BID [facility] Last Admin: 02/07/17 09:06 Dose: 25 mg Mupirocin (Bactroban Ointment (For Decolonization) -) 1 applic NS BID [facility] Stop: 02/08/17 09:59 Last Admin: 02/07/17 09:15 Dose: 1 applic Pantoprazole Sodium (Protonix Iv) 40 mg IVPUSH DAILY [facility] Last Admin: 02/07/17 09:14 Dose: 40 mg V/S Period Temp Pulse Resp BP Sys/Hernandez Pulse Ox Last 24 Hr 98.5 F-99.2 F 62-93 13-20 128-174/48-103 97-98 Intake & Output 02/04/17 02/05/17 02/06/17 02/07/17 23:59 23:59 23:59 22:59 Intake Total 2388 2184.2 1100 1196 Output Total 1965 89928 2080 650 Balance 423 -45622074.8 -980 546 Weight 76.884 kg 77.111 kg 77.61 kg 78.517 kg CBC, BMP 02/06/17 06:10 02/07/17 06:00 Hepatic Panel Total Bilirubin 3.0 mg/dL (0.2-1.0) H D 02/07/17 06:00 Direct Bilirubin 2.3 mg/dL (0.0-0.2) H 02/07/17 06:00 AST 37 U/L (15-37) D 02/07/17 06:00 ALT 81 U/L (12-78) H D 02/07/17 06:00 Alkaline Phosphatase 98 U/L (45-117) 02/07/17 06:00 Albumin 1.5 g/dl (3.4-5.0) L 02/07/17 06:00 GEN: intubated, sedated PULM: decreased breath sounds at the bases CV: RRR, RR, ABD: soft, nontender, +cholecystostomy with dark/bilious drainage EXT: trace edema edema NEURO: non-focal MICRO 02/04/17 08:22 Blood - Peripheral Venous Blood Culture - Preliminary NO GROWTH OBTAINED AFTER 72 HOURS, INCUBATION TO CONTINUE FOR 2 DAYS. 02/04/17 00:57 Blood - Peripheral Venous Blood Culture - Preliminary NO GROWTH OBTAINED AFTER 72 HOURS, INCUBATION TO CONTINUE FOR 2 DAYS. 02/02/17 09:00 Drainage Gram Stain - Final 02/02/17 09:00 Drainage Body Fluid Culture - Final Escherichia Coli Esbl Windows Admin Enterococcus Faecalis 02/02/17 09:00 Drainage Anaerobic Culture - Final NO ANAEROBES WERE ISOLATED 02/03/17 13:25 Urine - Urine Bar Urine Culture - Final NO GROWTH OBTAINED 02/01/17 12:55 Blood - Peripheral Venous Blood Culture - Final Klebsiella Pneumoniae 02/01/17 12:55 Blood - Peripheral Venous Blood Culture - Final Klebsiella Pneumoniae 02/01/17 14:10 Urine - Urine Clean Catch Urine Culture - Final NO GROWTH OBTAINED 02/01/17 15:18 Nasopharyngeal Swab Influenza Types A,B Antigen (GENESIS) - Final 02/01/17 15:18 Nasopharyngeal Swab - Final IMAGING: CXR: Report Reviewed, Image Reviewed EKG: Report Reviewed, Image Reviewed (tele-nsr, pvcs, couplets, triplets, 5 beats nsvt, short PSVT) ASSESS: Cholangitis Klebsiella Bacteremia S/P Cholecystostomy placement Ecoli/enterococcus from cholecystostomy Severe Sepsis Acute Hypoxic Respiratory Failure Acute Kidney Injury Anemia hypernatremia PLAN: - HOLD on extubation until clear plan for perc mainor tube - ABX A/P - Monitor UOP, creatinine, Free water replacement - Normal transfusion thresholds - Monitor H/H - Possible cholecystostomy revision with IR next week, tomorrow (Wednesday) - Trend bilis/transaminitis - Na still high --> cont free water - Continue ICU monitoring - DVT/GI prophylaxis NICOLA [facility]ÑIZ-[facility] ICU [id number] PULM / CCM
--- NOTE | 2017-02-07 13:24 | PN ---
Progress Note, Physician History of Present Illness: Pt seen and examined at bedside. He remains in the ICU. Pt remains intubated. He is sedated. - Current Medication List Current Medications: Active Medications Chlorhexidine Gluconate (Hibiclens For Decolonization -) 1 applic TP HS [facility] Last Admin: 02/06/17 22:00 Dose: 1 applic Propofol (Diprivan -) 100 mls @ 2.722 mls/hr IVPB TITR HOANG; 5 MCG/KG/MIN PRN Reason: Protocol Last Admin: 02/06/17 09:16 Dose: Not Given Ampicillin Sodium 1 gm/ Sodium (Chloride) 100 mls @ 200 mls/hr IVPB Q6H-IV [facility] Last Admin: 02/07/17 08:33 Dose: 200 mls/hr Meropenem (Merrem (Restricted To Id) -) 20 mls @ 240 mls/hr IVPUSH BID [facility] Last Admin: 02/07/17 09:06 Dose: 240 mls/hr Dextrose (D5w -) 1,000 mls @ 83 mls/hr IV ASDIR [facility] Last Admin: 02/06/17 16:27 Dose: 83 mls/hr Metoprolol Tartrate (Lopressor -) 25 mg PO BID [facility] Last Admin: 02/07/17 09:06 Dose: 25 mg Mupirocin (Bactroban Ointment (For Decolonization) -) 1 applic NS BID [facility] Stop: 02/08/17 09:59 Last Admin: 02/07/17 09:15 Dose: 1 applic Pantoprazole Sodium (Protonix Iv) 40 mg IVPUSH DAILY [facility] Last Admin: 02/07/17 09:14 Dose: 40 mg - Objective Vital Signs: Vital Signs Temperature 99 F 02/07/17 10:00 Pulse Rate 63 02/07/17 10:51 Respiratory Rate 18 02/07/17 13:02 Blood Pressure 155/93 02/07/17 10:00 O2 Sat by Pulse Oximetry (%) 98 02/07/17 10:51 Constitutional: Yes: Calm Eyes: Yes: Conjunctiva Clear HENT: Yes: Atraumatic Cardiovascular: Yes: S1, S2 Respiratory: Yes: Mechanically Ventilated Gastrointestinal: Yes: Soft, Other (cholecystostomy tube) Genitourinary: Yes: Bar Present Musculoskeletal: Yes: Muscle Weakness Edema: No Integumentary: Yes: WNL Wound/Incision: Yes: Dressing Dry and Intact Neurological: Yes: Lethargy Labs: CBC, BMP 02/06/17 06:10 02/07/17 06:00 INR, PTT INR 1.34 (0.82-1.09) H 02/03/17 06:00 - ....Imaging X-ray: Report Reviewed Problem List - Problems (1) Acute cholangitis due to calculus of bile duct with obstruction Code(s): K80.37 - CALCULUS OF BILE DUCT W ACUTE AND CHRONIC CHOLANGITIS W OBST (2) Hypertension Code(s): I10 - ESSENTIAL (PRIMARY) HYPERTENSION Qualifiers: Hypertension type: essential hypertension Qualified Code(s): I10 - Essential (primary) hypertension; I10 - Essential (primary) hypertension; I10 - Essential (primary) hypertension (3) JUAN J (acute kidney injury) Code(s): N17.9 - ACUTE KIDNEY FAILURE, UNSPECIFIED Assessment/Plan Current Medications Generic Name Dose Route Start Last Admin Trade Name Freq PRN Reason Stop Dose Admin Chlorhexidine Gluconate 1 applic 02/03/17 22:00 02/06/17 22:00 Hibiclens For Decolonization - TP 1 applic HS HOANG Administration Propofol 100 mls @ 2.722 mls/hr 02/03/17 09:00 02/06/17 09:16 Diprivan - IVPB Not Given TITR HOANG Protocol 5 MCG/KG/MIN Ampicillin Sodium 1 gm/ Sodium 100 mls @ 200 mls/hr 02/05/17 21:00 02/07/17 08: 33 Chloride IVPB 200 mls/hr Q6H-IV [facility] Administration Meropenem 20 mls @ 240 mls/hr 02/06/17 05:00 02/07/17 09:06 Merrem (Restricted To Id) - IVPUSH 240 mls/hr BID [facility] Administration Dextrose 1,000 mls @ 83 mls/hr 02/06/17 15:46 02/06/17 16:27 D5w - IV 83 mls/hr ASDIR [facility] Administration Metoprolol Tartrate 25 mg 02/06/17 10:00 02/07/17 09:06 Lopressor - PO 25 mg BID [facility]ANG Administration Mupirocin 1 applic 02/03/17 10:00 02/07/17 09:15 Bactroban Ointment (For Decolonization) - NS 02/08/17 09:59 1 applic BID [facility]ANG Administration Pantoprazole Sodium 40 mg 02/03/17 10:00 02/07/17 09:14 Protonix Iv IVPUSH 40 mg DAILY HOANG Administration Laboratory Tests 02/07/17 06:00 Sodium 148 H Potassium 3.2 L Calcium 6.7 L* Albumin 1.5 L Impression 1. JUAN J 2. acute resp failure 3. sepsis 4. bacteremia 5. alzheimers 6. anemia 7. choledocholithiasis 8. hypernatremia 9. hypokalemia Plan - replace potassium - sodium is improving - will adjust fluids and add potassium to d5w - repeat labs in am - surgery follow up for plan - vent support - check cxr - free water deficit is about 2.2 liters - cont abx per ID - renal function is improving - check mag level - monitor output from drain - will follow - keep in ICU Dr Haynes
[2017-02-07] MEDS ORDERED: DEXTROSE 5%-WATER - 1,000 ML with POTASSIUM CHLORIDE 10 MEQ IVPB SCH (13:25)
[2017-02-07] MEDS ORDERED: DEXTROSE 5%-WATER - 1,000 ML with POTASSIUM CHLORIDE 10 MEQ IV SCH (14:13)
--- NOTE | 2017-02-07 14:55 | PN ---
Progress Note, Physician History of Present Illness: Chart reviewed. No events. Remains on vent support. Hemodynamically stable. - Current Medication List Current Medications: Active Medications Chlorhexidine Gluconate (Hibiclens For Decolonization -) 1 applic TP HS [facility] Last Admin: 02/06/17 22:00 Dose: 1 applic Propofol (Diprivan -) 100 mls @ 2.722 mls/hr IVPB TITR [facility]; 5 MCG/KG/MIN PRN Reason: Protocol Last Admin: 02/06/17 09:16 Dose: Not Given Ampicillin Sodium 1 gm/ Sodium (Chloride) 100 mls @ 200 mls/hr IVPB Q6H-IV [facility] Last Admin: 02/07/17 14:43 Dose: 200 mls/hr Meropenem (Merrem (Restricted To Id) -) 20 mls @ 240 mls/hr IVPUSH BID [facility] Last Admin: 02/07/17 09:06 Dose: 240 mls/hr Potassium Chloride 10 meq/ (Dextrose) 1,005 mls @ 83 mls/hr IV Q12H [facility] Metoprolol Tartrate (Lopressor -) 25 mg PO BID [facility] Last Admin: 02/07/17 09:06 Dose: 25 mg Mupirocin (Bactroban Ointment (For Decolonization) -) 1 applic NS BID [facility] Stop: 02/08/17 09:59 Last Admin: 02/07/17 09:15 Dose: 1 applic Pantoprazole Sodium (Protonix Iv) 40 mg IVPUSH DAILY [facility] Last Admin: 02/07/17 09:14 Dose: 40 mg - Objective Vital Signs: Vital Signs Temperature 99 F 02/07/17 10:00 Pulse Rate 66 02/07/17 12:00 Respiratory Rate 18 02/07/17 13:02 Blood Pressure 136/63 02/07/17 12:00 O2 Sat by Pulse Oximetry (%) 98 02/07/17 10:51 Gastrointestinal: Yes: Normal Bowel Sounds, Soft Labs: CBC, BMP 02/06/17 06:10 02/07/17 06:00 INR, PTT INR 1.34 (0.82-1.09) H 02/03/17 06:00 CBCD WBC 7.3 K/mm3 (4.0-10.0) 02/06/17 06:10 RBC 2.73 M/mm3 (4.00-5.60) L 02/06/17 06:10 Hgb 9.0 GM/dL (11.7-16.9) L 02/06/17 06:10 Hct 25.4 % (35.4-49) L 02/06/17 06:10 MCV 93.0 fl (80-96) 02/06/17 06:10 MCHC 35.5 g/dl (32.0-35.9) 02/06/17 06:10 RDW 19.1 % (11.9-15.9) H 02/06/17 06:10 Plt Count 105 K/MM3 (134-434) L 02/06/17 06:10 MPV 10.4 fl (7.5-11.1) 02/06/17 06:10 CMP Sodium 148 mmol/L (136-145) H 02/07/17 06:00 Potassium 3.2 mmol/L (3.5-5.1) L 02/07/17 06:00 Chloride 116 mmol/L (98-107) H 02/07/17 06:00 Carbon Dioxide 24 mmol/L (21-32) 02/07/17 06:00 Anion Gap 8 (8-16) 02/07/17 06:00 BUN 43 mg/dL (7-18) H D 02/07/17 06:00 Creatinine 1.3 mg/dL (0.7-1.3) 02/07/17 06:00 Creat Clearance w eGFR 52.22 (>60) 02/07/17 06:00 Calcium 6.7 mg/dL (8.5-10.1) L* 02/07/17 06:00 Total Bilirubin 3.0 mg/dL (0.2-1.0) H D 02/07/17 06:00 AST 37 U/L (15-37) D 02/07/17 06:00 ALT 81 U/L (12-78) H D 02/07/17 06:00 Alkaline Phosphatase 98 U/L (45-117) 02/07/17 06:00 Total Protein 4.4 g/dl (6.4-8.2) L 02/07/17 06:00 Albumin 1.5 g/dl (3.4-5.0) L 02/07/17 06:00 Problem List - Problems (1) Cholangitis due to bile duct calculus with obstruction Code(s): K80.31 - CALCULUS OF BILE DUCT W CHOLANGITIS, UNSP, WITH OBSTRUCTION (2) Choledocholithiasis with obstruction Code(s): K80.51 - CALCULUS OF BILE DUCT W/O CHOLANGITIS OR CHOLECYST W OBST (3) Cholelithiasis Code(s): K80.20 - CALCULUS OF GALLBLADDER W/O CHOLECYSTITIS W/O OBSTRUCTION Assessment/Plan Cholangitis and acute blood loss anemia in a debilitated patient. . liver chemistry, bili and ALP are trending down. weaning as per ICU monitor bili, alp, liver chem
[2017-02-07] MEDS: DEXTROSE 5%-WATER - 1,000 ML with POTASSIUM CHLORIDE 10 MEQ IV SCH (15:44)
[2017-02-07] MEDS: ARTIFICIAL TEARS (POLYVINYL ALCOHOL 1.4%) OPTH DROPS OU SCH (21:27)
[2017-02-07] MEDS: CHLORHEXIDINE GLUCONATE 4% CLEANSER FOR DECOLONIZATION TP SCH (21:28)
[2017-02-08] MEDS: AMPICILLIN - 1 GM in SODIUM CHLORIDE 100 ML IVPB SCH ×4 (02:49→21:10)
[2017-02-08] MEDS: DEXTROSE 5%-WATER - 1,000 ML with POTASSIUM CHLORIDE 10 MEQ IV SCH (02:49)
[2017-02-08 06:21] LABS: BASOPHIL 0.2 % (0-2.0); EOSINOPHIL 4.6 % (0-4.5); MCH 32.1 pg (25.7-33.7); MCHC 34.4 g/dl (32.0-35.9); MEAN CELL VOLUME 93.2 fl (80-96); MEAN PLT VOLUME 10.2 fl (7.5-11.1); PLATELET COUNT 132 K/MM3 (134-434); RDW 17.5 % (11.9-15.9)
[2017-02-08 06:47] LABS: ALBUMIN 1.6 g/dl (3.4-5.0); ALK PHOS 115 U/L (45-117); ANION GAP 10 (8-16); BILIRUBIN,DIRECT 2.6 mg/dL (0.0-0.2); CO2 23 mmol/L (21-32); CREATININE 1.2 mg/dL (0.7-1.3); GLUCOSE,RANDOM 117 mg/dL (74-106); SGOT/AST 32 U/L (15-37); SGPT/ALT 66 U/L (12-78); TOT PROT 4.7 g/dl (6.4-8.2)
[2017-02-08 06:58] LABS: CALCIUM 6.4 mg/dL (8.5-10.1)
[2017-02-08] MEDS ORDERED: CALCIUM GLUCONATE 10% - 1,000 MG/10 ML VIAL IVPUSH ONE (08:39)
--- NOTE | 2017-02-08 08:41 | PN ---
Progress Note (short form) - Note Progress Note: patient seen and examined in ICU chart reviewed events noted. Case also discussed with Dr. Martinez The patient remains vent dependent. Vital Signs Temp 99.2 F 02/08/17 06:00 Pulse 70 02/08/17 06:00 Resp 16 02/08/17 06:46 BP 133/49 02/08/17 06:00 Pulse Ox 95 02/07/17 23:05 Intake & Output 02/07/17 02/07/17 02/08/17 11:59 23:59 11:59 Intake Total 772 1378 Output Total 1740 725 Balance -968 653 Weight 173 lb 9.6 oz Intake: IV 722 1128 Diprivan - 100 ml @ 5 MCG 58 132 /KG/MIN 2.722 mls/hr IVPB TITR HOANG Rx#:[id number] D5w - 1,000 ml @ 83 mls/ hr IV ASDIR HOANG Rx#: [id number] D5w - 1,000 ml @ 83 mls/ 664 996 hr IVPB ASDIR [facility] with KCl - 10 Meq Rx#: [id number] IVPB 50 200 Tube Irrigant 50 Output: Drainage 340 75 Right Abdomen 340 75 Urine 1400 650 Bar 1400 650 Other: Voiding Method Indwelling Catheter Bowel Movement No Weight Measurement [facility] Active Medications Artificial Tears (Artificial Tears) 1 drop OU HS [facility] Last Admin: 02/07/17 21:27 Dose: 1 drop Calcium Gluconate (Calcium Gluconate 10% -) 2,000 mg IVPUSH ONCE ONE Stop: 02/08/17 08:40 Chlorhexidine Gluconate (Hibiclens For Decolonization -) 1 applic TP HS [facility] Last Admin: 02/07/17 21:28 Dose: 1 applic Propofol (Diprivan -) 100 mls @ 2.722 mls/hr IVPB TITR [facility]ANG; 5 MCG/KG/MIN PRN Reason: Protocol Last Admin: 02/07/17 09:00 Dose: 11 mls/hr Ampicillin Sodium 1 gm/ Sodium (Chloride) 100 mls @ 200 mls/hr IVPB Q6H-IV [facility] Last Admin: 02/08/17 02:49 Dose: 200 mls/hr Meropenem (Merrem (Restricted To Id) -) 20 mls @ 240 mls/hr IVPUSH BID [facility] Last Admin: 02/07/17 21:28 Dose: 240 mls/hr Potassium Chloride 10 meq/ (Dextrose) 1,005 mls @ 83 mls/hr IV Q12H [facility] Last Admin: 02/08/17 02:49 Dose: 83 mls/hr Metoprolol Tartrate (Lopressor -) 25 mg PO BID [facility] Last Admin: 02/07/17 21:28 Dose: 25 mg Mupirocin (Bactroban Ointment (For Decolonization) -) 1 applic NS BID [facility] Stop: 02/08/17 09:59 Last Admin: 02/07/17 21:27 Dose: 1 applic Pantoprazole Sodium (Protonix Iv) 40 mg IVPUSH DAILY [facility] Last Admin: 02/07/17 09:14 Dose: 40 mg CBC, BMP 02/08/17 06:10 02/08/17 06:10 cxr - noted Microbiology 02/04/17 00:57 Blood Culture - Preliminary Blood - Peripheral Venous NO GROWTH OBTAINED AFTER 96 HOURS, INCUBATION TO CONTINUE FOR 1 DAYS. 02/04/17 08:22 Blood Culture - Preliminary Blood - Peripheral Venous NO GROWTH OBTAINED AFTER 72 HOURS, INCUBATION TO CONTINUE FOR 2 DAYS. - Objective Constitutional: Yes: Intubated Cardiovascular: Yes: Regular Rate and Rhythm Respiratory: Yes: bilateral breath sounds anteriorly Gastrointestinal: Yes: Normal Bowel Sounds, Soft, Abdomen, Obese, Other (CARMELITA drain). No: Tenderness Edema: Yes Problem List - Problems (1) Calculus of gallbladder 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 Code(s): K80.67 - CALCULUS OF GB AND BILE DUCT W AC AND CHR CHOLECYST W OBST (2) Cholangitis due to bile duct calculus with obstruction Code(s): K80.31 - CALCULUS OF BILE DUCT W CHOLANGITIS, UNSP, WITH OBSTRUCTION (3) Choledocholithiasis with obstruction Code(s): K80.51 - CALCULUS OF BILE DUCT W/O CHOLANGITIS OR CHOLECYST W OBST (4) Dementia with behavioral disturbance Code(s): F03.91 - UNSPECIFIED DEMENTIA WITH BEHAVIORAL DISTURBANCE Qualifiers : Dementia type: unspecified type Qualified Code(s): F03.91 - Unspecified dementia with behavioral disturbance; F03.91 - Unspecified dementia with behavioral disturbance; F03.91 - Unspecified dementia with behavioral disturbance (5) Elevated liver function tests Code(s): R79.89 - OTHER SPECIFIED ABNORMAL FINDINGS OF BLOOD CHEMISTRY (6) Hypertension Code(s): I10 - ESSENTIAL (PRIMARY) HYPERTENSION Qualifiers: Hypertension type: essential hypertension Qualified Code(s): I10 - Essential (primary) hypertension; I10 - Essential (primary) hypertension; I10 - Essential (primary) hypertension (7) Severe sepsis Code(s): A41.9 - SEPSIS, UNSPECIFIED ORGANISM R65.20 - SEVERE SEPSIS WITHOUT SEPTIC SHOCK Assessment/Plan sepsis s/p CARMELITA drain revision of PTC pending IR IV antibiotics, Klebsiella in blood repeat blood cultures negative So far continue present care weaning trial critical team following overall condition--poor Consults palliative team Discussed with ICU resident also. Will follow.
[2017-02-08] MEDS ORDERED: CALCIUM GLUCONATE 10% - 1,000 MG/10 ML VIAL IVPB ONE (08:46)
[2017-02-08] MEDS: PROPOFOL 100 ML IVPB SCH (09:32)
[2017-02-08] MEDS: METOPROLOL TARTRATE 25 MG TABLET (FP) PO SCH ×2 (09:33→21:12)
[2017-02-08] MEDS: MEROPENEM 1 GM PUSH 20 ML IVPUSH SCH ×2 (09:33→22:31)
[2017-02-08] MEDS: PANTOPRAZOLE SODIUM 40 MG VIAL IVPUSH SCH (09:34)
--- NOTE | 2017-02-08 11:21 | PN ---
Progress Note, Physician History of Present Illness: seen and examined today in nad. no overnight events. remains intubated. - Current Medication List Current Medications: Active Medications Artificial Tears (Artificial Tears) 1 drop OU HS [facility] Last Admin: 02/07/17 21:27 Dose: 1 drop Chlorhexidine Gluconate (Hibiclens For Decolonization -) 1 applic TP HS [facility] Last Admin: 02/07/17 21:28 Dose: 1 applic Propofol (Diprivan -) 100 mls @ 2.722 mls/hr IVPB TITR [facility]; 5 MCG/KG/MIN PRN Reason: Protocol Last Admin: 02/08/17 09:32 Dose: 10.995 mls/hr Ampicillin Sodium 1 gm/ Sodium (Chloride) 100 mls @ 200 mls/hr IVPB Q6H-IV [facility] Last Admin: 02/08/17 09:34 Dose: 200 mls/hr Meropenem (Merrem (Restricted To Id) -) 20 mls @ 240 mls/hr IVPUSH BID [facility] Last Admin: 02/08/17 09:33 Dose: 240 mls/hr Potassium Chloride 10 meq/ (Dextrose) 1,005 mls @ 83 mls/hr IV Q12H [facility] Last Admin: 02/08/17 02:49 Dose: 83 mls/hr Metoprolol Tartrate (Lopressor -) 25 mg PO BID [facility] Last Admin: 02/08/17 09:33 Dose: 25 mg Pantoprazole Sodium (Protonix Iv) 40 mg IVPUSH DAILY [facility] Last Admin: 02/08/17 09:34 Dose: 40 mg - Objective Vital Signs: Vital Signs Temperature 98.8 F 02/08/17 10:00 Pulse Rate 71 02/08/17 10:00 Respiratory Rate 10 L 02/08/17 10:20 Blood Pressure 143/66 02/08/17 10:00 O2 Sat by Pulse Oximetry (%) 100 02/08/17 10:20 Constitutional: Yes: No Distress, Calm HENT: Yes: Atraumatic, Normocephalic Neck: Yes: Supple, Trachea Midline Cardiovascular: Yes: Regular Rate and Rhythm, S1, S2. No: Bradycardia, Tachycardia, Pulse Irregular, Bruit, JVD, Gallop, Murmur, Rub, S3, S4, Varicosities Respiratory: Yes: Regular, Intubated, Mechanically Ventilated. No: Rales, Rhonchi, Wheezes Gastrointestinal: Yes: Normal Bowel Sounds, Soft. No: Distention Extremities: Yes: WNL Edema: No Peripheral Pulses WNL: Yes Peripheral Pulses: Left Doralis Pedis: 2+, Right Dorsalis Pedis: 2+ Neurological: Yes: Unresponsive Labs: CBC, BMP 02/08/17 06:10 02/08/17 06:10 INR, PTT INR 1.34 (0.82-1.09) H 02/03/17 06:00 - ....Imaging Chest X-ray: Report Reviewed, Image Reviewed EKG: Report Reviewed, Image Reviewed Other: Report Reviewed, Image Reviewed (tele-nsr, pvcs, no other arrhythmias in last 24 hours) Assessment/Plan Sepsis, Klebsiella in blood, Ecoli/enterococcus from cholecystostomy Choledocholithiasis, s/p perc. cholecystostomy ASHD Acute respiratory failure s/p intubation REC: -CK/Troponin mildly elevated in setting of septic shock and BERTA -Probable chronic underlying CAD based on EKG but this does not appear to be ACS /NSTEMI -Echo showed normal LV systolic function -Frequent PVCs, short episodes of NSVT, brief episodes PSVT on tele, improved with bblocker -tolerating low dose metoprolol thus far, cont lopressor 25mg po bid -cont supportive/ICU care
--- NOTE | 2017-02-08 14:18 | PN ---
Teaching Attending Note Name of Resident: Caitlin Chow ATTENDING PHYSICIAN STATEMENT I saw and evaluated the patient. I reviewed the resident's note and discussed the case with the resident. I agree with the resident's findings and plan as documented. SUBJECTIVE: Pt seen and examined in the ICU. Remains intubated, sedated. Vented on volume assist control. No fevers recorded. OBJECTIVE: Last Vital Signs Temp Pulse Resp BP Pulse Ox 98.8 F 61 22 159/59 100 02/08/17 10:00 02/08/17 12:00 02/08/17 14:06 02/08/17 12:00 02/08/17 10:20 Intake & Output 02/06/17 02/07/17 02/07/17 02/08/17 00:59 00:59 23:59 23:59 Intake Total 1378 Output Total 725 Balance 653 Weight 173 lb 9.6 oz Gen: intubated, sedated Heart: RRR Lung: decreased breath sounds at the bases Abd: soft, nontender Ext: + edema CBC, BMP 02/08/17 06:10 02/08/17 06:10 Active Medications Artificial Tears (Artificial Tears) 1 drop OU HS [facility] Last Admin: 02/07/17 21:27 Dose: 1 drop Chlorhexidine Gluconate (Hibiclens For Decolonization -) 1 applic TP HS [facility] Last Admin: 02/07/17 21:28 Dose: 1 applic Propofol (Diprivan -) 100 mls @ 2.722 mls/hr IVPB TITR [facility]ANG; 5 MCG/KG/MIN PRN Reason: Protocol Last Admin: 02/08/17 09:32 Dose: 10.995 mls/hr Ampicillin Sodium 1 gm/ Sodium (Chloride) 100 mls @ 200 mls/hr IVPB Q6H-IV [facility] Last Admin: 02/08/17 09:34 Dose: 200 mls/hr Meropenem (Merrem (Restricted To Id) -) 20 mls @ 240 mls/hr IVPUSH BID [facility] Last Admin: 02/08/17 09:33 Dose: 240 mls/hr Potassium Chloride 10 meq/ (Dextrose) 1,005 mls @ 83 mls/hr IV Q12H [facility] Last Admin: 02/08/17 02:49 Dose: 83 mls/hr Metoprolol Tartrate (Lopressor -) 25 mg PO BID [facility] Last Admin: 02/08/17 09:33 Dose: 25 mg Pantoprazole Sodium (Protonix Iv) 40 mg IVPUSH DAILY [facility] Last Admin: 02/08/17 09:34 Dose: 40 mg ASSESSMENT AND PLAN: Cholangitis Klebsiella Bacteremia s/p Cholecystostomy placement Severe Sepsis improving Acute Hypoxic Respiratory Failure Acute Kidney Injury Anemia - continue antibiotics per ID - replete lytes - monitor urine output, creatinine - taper FiO2 to keep Spo2 >90% - lighten sedation to assess mental status - spontaneous breathing trials when more awake - discuss with GI enteral feeds - DVT/GI prophylaxis - continue ICU monitoring critical care time spent in reviewing chart, evaluating patient and formulating plan 35 min
--- NOTE | 2017-02-08 14:20 | PN ---
Physical Exam: SUBJECTIVE: Patient seen and examined intubated and sedated. Sedation d/c'd this am. OBJECTIVE: Vital Signs Period Temp Pulse Resp BP Sys/Hernandez Pulse Ox Last 24 Hr 98.8 F-100.1 F 61-78 10- 133-159/49-72 95-100 GENERAL: The patient is intubated and sedated LUNGS: scattered rhonchi HEART: Regular rate and rhythm, S1, S2 without murmur, rub or gallop. ABDOMEN: Soft, nontender, nondistended, normoactive bowel sounds, no guarding, no rebound, no hepatosplenomegaly, no masses. alejandro drain serosangiounous fluid EXTREMITIES: 2+ pulses, warm, well-perfused, no edema. Laboratory Results - last 24 hr 02/08/17 02/08/17 06:10 06:10 WBC 8.0 RBC 2.70 L Hgb 8.7 L Hct 25.2 L MCV 93.2 MCH 32.1 MCHC 34.4 RDW 17.5 H Plt Count 132 L D MPV 10.2 Neutrophils % 75.0 Lymphocytes % 13.5 D Monocytes % 6.7 Eosinophils % 4.6 H Basophils % 0.2 Sodium 145 Potassium 3.4 L Chloride 112 H Carbon Dioxide 23 Anion Gap 10 BUN 34 H D Creatinine 1.2 Creat Clearance w eGFR 57.27 Random Glucose 117 H Calcium 6.4 L* Magnesium 2.0 D Total Bilirubin 3.0 H Direct Bilirubin 2.6 H AST 32 ALT 66 Alkaline Phosphatase 115 Total Protein 4.7 L Albumin 1.6 L Active Medications Generic Name Dose Route Start Last Admin Trade Name Roryq PRN Reason Stop Dose Admin Artificial Tears 1 drop 02/07/17 22:00 02/07/17 21:27 Artificial Tears OU 1 drop HS [facility] Administration Chlorhexidine Gluconate 1 applic 02/03/17 22:00 02/07/17 21:28 Hibiclens For Decolonization - TP 1 applic HS [facility] Administration Propofol 100 mls @ 2.722 mls/hr 02/03/17 09:00 02/08/17 09:32 Diprivan - IVPB 10.995 mls/hr TITR [facility]ANG Administration Protocol 5 MCG/KG/MIN Ampicillin Sodium 1 gm/ Sodium 100 mls @ 200 mls/hr 02/05/17 21:00 02/08/17 09: 34 Chloride IVPB 200 mls/hr Q6H-IV [facility] Administration Meropenem 20 mls @ 240 mls/hr 02/06/17 05:00 02/08/17 09:33 Merrem (Restricted To Id) - IVPUSH 240 mls/hr BID [facility] Administration Potassium Chloride 10 meq/ 1,005 mls @ 83 mls/hr 02/07/17 14:24 02/08/17 02:49 Dextrose IV 83 mls/hr Q12H [facility] Administration Metoprolol Tartrate 25 mg 02/06/17 10:00 02/08/17 09:33 Lopressor - PO 25 mg BID [facility] Administration Pantoprazole Sodium 40 mg 02/03/17 10:00 02/08/17 09:34 Protonix Iv IVPUSH 40 mg DAILY [facility] Administration Microbiology 02/04/17 08:22 Blood - Peripheral Venous Blood Culture - Preliminary NO GROWTH OBTAINED AFTER 96 HOURS, INCUBATION TO CONTINUE FOR 1 DAYS. 02/04/17 00:57 Blood - Peripheral Venous Blood Culture - Preliminary NO GROWTH OBTAINED AFTER 96 HOURS, INCUBATION TO CONTINUE FOR 1 DAYS. 02/02/17 09:00 Drainage Gram Stain - Final 02/02/17 09:00 Drainage Body Fluid Culture - Final Escherichia Coli [employer] Enterococcus Faecalis 02/02/17 09:00 Drainage Anaerobic Culture - Final NO ANAEROBES WERE ISOLATED 02/03/17 13:25 Urine - Urine Bar Urine Culture - Final NO GROWTH OBTAINED 02/01/17 12:55 Blood - Peripheral Venous Blood Culture - Final Klebsiella Pneumoniae 02/01/17 12:55 Blood - Peripheral Venous Blood Culture - Final Klebsiella Pneumoniae 02/01/17 14:10 Urine - Urine Clean Catch Urine Culture - Final NO GROWTH OBTAINED 02/01/17 15:18 Nasopharyngeal Swab Influenza Types A,B Antigen (GENESIS) - Final 02/01/17 15:18 Nasopharyngeal Swab - Final ASSESSMENT/PLAN: 86 year old male with cholangitis complicated by severe sepsis secondary to klebsiella bacteremia. #Neuro: -non arousable; sedation turned off this am #respiratory: -acute hypoxic respiratory failure -intubated; spontaneous breathing trials #cardiovascular: -troponon elevated most likely secondary to sepsis/JUAN J -echo showing normal LV systolic function -episodes of PVCs; cont BB prn -cardio consulted #GI: -cholangitis s/p cholecystostomy placement -IR consulted -LFTS improving -discuss w GI enteral feeds #ID: -Sepsis sec to klebsiella bacteremia; cont ampicillin and meropenam as per ID -f/u cultures -ID following #Renal: -juan j most likely to sepsis -IV hydration -trend Cr -renal following #hematology: -anemia stable -trend H/H FEN: fluids: D5W; decrease electrolytes: hypernatremia is improving; hypokalemia; replace diet: discuss with GI feeds VTE: heparin sq GI proph: protonix Disposition: cont CU monitoring; palliative care consult Problem List - Problems (1) JUAN J (acute kidney injury) Code(s): N17.9 - ACUTE KIDNEY FAILURE, UNSPECIFIED (2) Acute cholangitis due to calculus of bile duct with obstruction Code(s): K80.37 - CALCULUS OF BILE DUCT W ACUTE AND CHRONIC CHOLANGITIS W OBST (3) Calculus of gallbladder 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 Code(s): K80.67 - CALCULUS OF GB AND BILE DUCT W AC AND CHR CHOLECYST W OBST (4) Cholangitis due to bile duct calculus with obstruction Code(s): K80.31 - CALCULUS OF BILE DUCT W CHOLANGITIS, UNSP, WITH OBSTRUCTION (5) Choledocholithiasis with obstruction Code(s): K80.51 - CALCULUS OF BILE DUCT W/O CHOLANGITIS OR CHOLECYST W OBST (6) Cholelithiasis Code(s): K80.20 - CALCULUS OF GALLBLADDER W/O CHOLECYSTITIS W/O OBSTRUCTION (7) Dementia with behavioral disturbance Code(s): F03.91 - UNSPECIFIED DEMENTIA WITH BEHAVIORAL DISTURBANCE Qualifiers : Dementia type: unspecified type Qualified Code(s): F03.91 - Unspecified dementia with behavioral disturbance; F03.91 - Unspecified dementia with behavioral disturbance; F03.91 - Unspecified dementia with behavioral disturbance (8) Elevated liver function tests Code(s): R79.89 - OTHER SPECIFIED ABNORMAL FINDINGS OF BLOOD CHEMISTRY (9) Hypertension Code(s): I10 - ESSENTIAL (PRIMARY) HYPERTENSION Qualifiers: Hypertension type: essential hypertension Qualified Code(s): I10 - Essential (primary) hypertension; I10 - Essential (primary) hypertension; I10 - Essential (primary) hypertension (10) Klebsiella pneumoniae sepsis Code(s): A41.4 - SEPSIS DUE TO ANAEROBES (11) Macular degeneration, age related Code(s): H35.30 - UNSPECIFIED MACULAR DEGENERATION (12) Sepsis due to Gram-negative organism with acute respiratory failure Code(s): A41.50 - GRAM-NEGATIVE SEPSIS, UNSPECIFIED R65.20 - SEVERE SEPSIS WITHOUT SEPTIC SHOCK J96.00 - ACUTE RESPIRATORY FAILURE, UNSP W HYPOXIA OR HYPERCAPNIA (13) Severe sepsis Code(s): A41.9 - SEPSIS, UNSPECIFIED ORGANISM R65.20 - SEVERE SEPSIS WITHOUT SEPTIC SHOCK Visit type - Emergency Visit Emergency Visit: Yes ED Registration Date: 02/01/17 Care time: The patient presented to the Emergency Department on the above date and was hospitalized for further evaluation of their emergent condition. - New Patient This patient is new to me today: Yes Date on this admission: 02/08/17 - Critical Care Critical Care patient: Yes Total Critical Care Time (in minutes): 35 Critical Care Statement: The care of this patient involved high complexity decision making to prevent further life threatening deterioration of the patient 's condition and/or to evaluate & treat vital organ system(s) failure or risk of failure.
--- NOTE | 2017-02-08 14:25 | PN ---
Progress Note, Physician History of Present Illness: continues to be sedated and intubated stable no new issues - Current Medication List Current Medications: Active Medications Artificial Tears (Artificial Tears) 1 drop OU HS [facility] Last Admin: 02/07/17 21:27 Dose: 1 drop Chlorhexidine Gluconate (Hibiclens For Decolonization -) 1 applic TP HS [facility] Last Admin: 02/07/17 21:28 Dose: 1 applic Propofol (Diprivan -) 100 mls @ 2.722 mls/hr IVPB TITR [facility]; 5 MCG/KG/MIN PRN Reason: Protocol Last Admin: 02/08/17 09:32 Dose: 10.995 mls/hr Ampicillin Sodium 1 gm/ Sodium (Chloride) 100 mls @ 200 mls/hr IVPB Q6H-IV [facility] Last Admin: 02/08/17 09:34 Dose: 200 mls/hr Meropenem (Merrem (Restricted To Id) -) 20 mls @ 240 mls/hr IVPUSH BID [facility] Last Admin: 02/08/17 09:33 Dose: 240 mls/hr Potassium Chloride 10 meq/ (Dextrose) 1,005 mls @ 83 mls/hr IV Q12H [facility] Last Admin: 02/08/17 02:49 Dose: 83 mls/hr Metoprolol Tartrate (Lopressor -) 25 mg PO BID [facility] Last Admin: 02/08/17 09:33 Dose: 25 mg Pantoprazole Sodium (Protonix Iv) 40 mg IVPUSH DAILY [facility] Last Admin: 02/08/17 09:34 Dose: 40 mg - Objective Vital Signs: Vital Signs Temperature 98.8 F 02/08/17 10:00 Pulse Rate 61 02/08/17 12:00 Respiratory Rate 22 02/08/17 14:06 Blood Pressure 159/59 02/08/17 12:00 O2 Sat by Pulse Oximetry (%) 100 02/08/17 10:20 Constitutional: Yes: No Distress, Calm Eyes: Yes: Conjunctiva Clear Cardiovascular: Yes: Regular Rate and Rhythm Respiratory: Yes: Intubated, Mechanically Ventilated Gastrointestinal: Yes: Normal Bowel Sounds, Soft, Other (choley in place) Genitourinary: Yes: Bar Present Musculoskeletal: Yes: WNL Extremities: Yes: WNL Neurological: Yes: Other Labs: CBC, BMP 02/08/17 06:10 02/08/17 06:10 INR, PTT INR 1.34 (0.82-1.09) H 02/03/17 06:00 Assessment/Plan Problem List - Problems (1) Calculus of gallbladder 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91 - Unspecified dementia with behavioral disturbance; F03.91 - Unspecified dementia with behavioral disturbance; F03.91 - Unspecified dementia with behavioral disturbance fever 6 gm negative bacteremia cx from the gb seen all cx noted plan continue vent support continue abx close watch patient remaining stable hydration rest as per icu patient off of sedation for some time cc time 40 min
[2017-02-08] MEDS ORDERED: LABETALOL HCL 5 MG/1 ML (100MG/20 ML VIAL) IVPUSH ONE ×2 (15:13→22:12)
[2017-02-08] MEDS ORDERED: LABETALOL HCL 5 MG/1 ML (100MG/20 ML VIAL) ONE (15:16)
--- NOTE | 2017-02-08 15:23 | PN ---
Progress Note, Physician History of Present Illness: Pt seen and examined at bedside. He remains in the ICU. Pt remains intubated. - Current Medication List Current Medications: Active Medications Artificial Tears (Artificial Tears) 1 drop OU HS [facility] Last Admin: 02/07/17 21:27 Dose: 1 drop Chlorhexidine Gluconate (Hibiclens For Decolonization -) 1 applic TP HS [facility] Last Admin: 02/07/17 21:28 Dose: 1 applic Propofol (Diprivan -) 100 mls @ 2.722 mls/hr IVPB TITR [facility]; 5 MCG/KG/MIN PRN Reason: Protocol Last Admin: 02/08/17 09:32 Dose: 10.995 mls/hr Ampicillin Sodium 1 gm/ Sodium (Chloride) 100 mls @ 200 mls/hr IVPB Q6H-IV [facility] Last Admin: 02/08/17 15:11 Dose: 200 mls/hr Meropenem (Merrem (Restricted To Id) -) 20 mls @ 240 mls/hr IVPUSH BID [facility] Last Admin: 02/08/17 09:33 Dose: 240 mls/hr Potassium Chloride 10 meq/ (Dextrose) 1,005 mls @ 83 mls/hr IV Q12H [facility] Last Admin: 02/08/17 02:49 Dose: 83 mls/hr Labetalol HCl (Normodyne Injection -) 10 mg IVPUSH ONCE ONE Stop: 02/08/17 15:14 Metoprolol Tartrate (Lopressor -) 25 mg PO BID [facility] Last Admin: 02/08/17 09:33 Dose: 25 mg Pantoprazole Sodium (Protonix Iv) 40 mg IVPUSH DAILY [facility] Last Admin: 02/08/17 09:34 Dose: 40 mg - Objective Vital Signs: Vital Signs Temperature 99.7 F H 02/08/17 14:00 Pulse Rate 69 02/08/17 14:00 Respiratory Rate 22 02/08/17 14:06 Blood Pressure 185/70 02/08/17 14:00 O2 Sat by Pulse Oximetry (%) 100 02/08/17 10:20 Constitutional: Yes: Calm Eyes: Yes: Conjunctiva Clear HENT: Yes: Atraumatic Cardiovascular: Yes: S1, S2 Respiratory: Yes: Mechanically Ventilated Gastrointestinal: Yes: Normal Bowel Sounds, Soft, Other (cholecystostomy) Genitourinary: Yes: Bar Present Musculoskeletal: Yes: Muscle Weakness Edema: No Neurological: Yes: Lethargy Labs: CBC, BMP 02/08/17 06:10 02/08/17 06:10 INR, PTT INR 1.34 (0.82-1.09) H 02/03/17 06:00 - ....Imaging Chest X-ray: Report Reviewed Problem List - Problems (1) Acute cholangitis due to calculus of bile duct with obstruction Code(s): K80.37 - CALCULUS OF BILE DUCT W ACUTE AND CHRONIC CHOLANGITIS W OBST (2) Hypertension Code(s): I10 - ESSENTIAL (PRIMARY) HYPERTENSION Qualifiers: Hypertension type: essential hypertension Qualified Code(s): I10 - Essential (primary) hypertension; I10 - Essential (primary) hypertension; I10 - Essential (primary) hypertension (3) JUAN J (acute kidney injury) Code(s): N17.9 - ACUTE KIDNEY FAILURE, UNSPECIFIED Assessment/Plan Current Medications Generic Name Dose Route Start Last Admin Trade Name Freq PRN Reason Stop Dose Admin Artificial Tears 1 drop 02/07/17 22:00 02/07/17 21:27 Artificial Tears OU 1 drop HS [facility] Administration Chlorhexidine Gluconate 1 applic 02/03/17 22:00 02/07/17 21:28 Hibiclens For Decolonization - TP 1 applic HS [facility] Administration Propofol 100 mls @ 2.722 mls/hr 02/03/17 09:00 02/08/17 09:32 Diprivan - IVPB 10.995 mls/hr TITR [facility] Administration Protocol 5 MCG/KG/MIN Ampicillin Sodium 1 gm/ Sodium 100 mls @ 200 mls/hr 02/05/17 21:00 02/08/17 15: 11 Chloride IVPB 200 mls/hr Q6H-IV [facility] Administration Meropenem 20 mls @ 240 mls/hr 02/06/17 05:00 02/08/17 09:33 Merrem (Restricted To Id) - IVPUSH 240 mls/hr BID [facility] Administration Potassium Chloride 10 meq/ 1,005 mls @ 83 mls/hr 02/07/17 14:24 02/08/17 02:49 Dextrose IV 83 mls/hr Q12H [facility] Administration Metoprolol Tartrate 25 mg 02/06/17 10:00 02/08/17 09:33 Lopressor - PO 25 mg BID [facility] Administration Pantoprazole Sodium 40 mg 02/03/17 10:00 02/08/17 09:34 Protonix Iv IVPUSH 40 mg DAILY [facility] Administration Impression 1. JUAN J 2. acute resp failure 3. sepsis 4. bacteremia 5. alzheimers 6. anemia 7. choledocholithiasis 8. hypernatremia 9. hypokalemia Plan - sodium improving - can start to decrease rate of fluids - GI and surgery follow up to decide on feeding, will discuss clinimix with ICU team if pt is to remain NPO - replace potassium - check mag - renal function is stable - discussed with ICU team - cxr reviewed - cont vent support - monitor output from drain - will follow - keep in ICU Dr Haynes
[2017-02-08] MEDS ORDERED: KCL 10 MEQ IVPB 100 ML IVPB SCH (15:30)
[2017-02-08] MEDS: AMINO ACIDS 4.25%/D5W 1,000 ML IV SCH (16:37)
[2017-02-08] MEDS ORDERED: DEXTROSE 5%-WATER - 1,000 ML with POTASSIUM CHLORIDE 10 MEQ IV SCH (17:00)
[2017-02-08] MEDS ORDERED: PT OWN MED DRAWER 7, Y5N ONE ×2 (20:28→21:45)
[2017-02-08] MEDS: HEPARIN NA (PORCINE) 5,000 UNITS/ML 1ML VIAL SQ SCH (21:11)
[2017-02-08] MEDS: ARTIFICIAL TEARS (POLYVINYL ALCOHOL 1.4%) OPTH DROPS OU SCH (21:11)
[2017-02-08] MEDS: CHLORHEXIDINE GLUCONATE 4% CLEANSER FOR DECOLONIZATION TP SCH (21:12)
[2017-02-09] MEDS: AMPICILLIN - 1 GM in SODIUM CHLORIDE 100 ML IVPB SCH ×4 (03:00→21:00)
[2017-02-09] MEDS: AMINO ACIDS 4.25%/D5W 1,000 ML IV SCH ×2 (05:49→13:43)
[2017-02-09] MEDS: HEPARIN NA (PORCINE) 5,000 UNITS/ML 1ML VIAL SQ SCH ×3 (06:00→23:43)
[2017-02-09] MEDS ORDERED: LABETALOL HCL 5 MG/1 ML (100MG/20 ML VIAL) IVPUSH ONE ×2 (06:04→18:14)
[2017-02-09 07:42] LABS: BASOPHIL 0.2 % (0-2.0); MCHC 34.2 g/dl (32.0-35.9); MEAN CELL VOLUME 93.4 fl (80-96); MEAN PLT VOLUME 9.4 fl (7.5-11.1); NEUTROPHILS 78.7 % (42.8-82.8); PLATELET COUNT 152 K/MM3 (134-434); RDW 16.9 % (11.9-15.9); WHITE BLOOD COUNT 9.6 K/mm3 (4.0-10.0)
[2017-02-09 07:59] LABS: ALBUMIN 1.7 g/dl (3.4-5.0); ANION GAP 8 (8-16); CO2 24 mmol/L (21-32); GLUCOSE,RANDOM 117 mg/dL (74-106); MAGNESIUM 1.9 mg/dL (1.8-2.4)
[2017-02-09 08:04] LABS: ALK PHOS 122 U/L (45-117); BILIRUBIN,TOTAL 3.4 mg/dL (0.2-1.0); PHOSPHOROUS 2.4 mg/dL (2.5-4.9); SGOT/AST 28 U/L (15-37); SGPT/ALT 57 U/L (12-78)
--- NOTE | 2017-02-09 08:35 | PN ---
Progress Note (short form) - Note Progress Note: pt seen/ examined in icu off sedation. arousable remains vent dependent. On clinimix. All f/u noted. Vital Signs Temp 98.9 F 02/08/17 22:00 Pulse 75 02/09/17 06:00 Resp 20 02/09/17 07:17 BP 157/62 02/09/17 06:00 Pulse Ox 100 02/09/17 00:39 Intake & Output 02/08/17 02/08/17 02/09/17 11:59 23:59 11:59 Intake Total 1378 1350 1080 Output Total 725 960 330 Balance 653 390 750 Weight 173 lb 9.6 oz 176 lb 4 oz Intake: IV 1128 790 880 Diprivan - 100 ml @ 5 MCG 132 40 /KG/MIN 2.722 mls/hr IVPB TITR [facility] Rx#:[id number] D5w - 1,000 ml @ 83 mls/ 996 750 hr IVPB ASDIR [facility] with KCl - 10 Meq Rx#: [id number] d5w with kcl 440 clinemax 440 IVPB 200 500 200 Tube Irrigant 50 60 Output: Drainage 75 210 80 Right Abdomen 75 210 80 Urine 650 750 250 Bar 650 750 250 Other: Voiding Method Indwelling Catheter Indwelling Catheter Indwelling Catheter Bowel Movement No Weight Measurement Method Built in Bedscale Built in Bedscale Active Medications Artificial Tears (Artificial Tears) 1 drop OU HS [facility] Last Admin: 02/08/17 21:11 Dose: 1 drop Chlorhexidine Gluconate (Hibiclens For Decolonization -) 1 applic TP HS [facility] Last Admin: 02/08/17 21:12 Dose: 1 applic Heparin Sodium (Porcine) (Heparin -) 5,000 unit SQ TID [facility] Last Admin: 02/09/17 06:00 Dose: 5,000 unit Propofol (Diprivan -) 100 mls @ 2.722 mls/hr IVPB TITR [facility]; 5 MCG/KG/MIN PRN Reason: Protocol Last Admin: 02/08/17 09:32 Dose: 10.995 mls/hr Ampicillin Sodium 1 gm/ Sodium (Chloride) 100 mls @ 200 mls/hr IVPB Q6H-IV [facility] Last Admin: 02/09/17 03:00 Dose: 200 mls/hr Meropenem (Merrem (Restricted To Id) -) 20 mls @ 240 mls/hr IVPUSH BID [facility] Last Admin: 02/08/17 22:31 Dose: 240 mls/hr Amino Acids (Clinimix -) 1,000 mls @ 42 mls/hr IV BID [facility] Last Admin: 02/09/17 05:49 Dose: Not Given Potassium Chloride 10 meq/ (Dextrose) 1,005 mls @ 40 mls/hr IV Q24H [facility] Last Admin: 02/09/17 02:00 Dose: 40 mls/hr Metoprolol Tartrate (Lopressor -) 25 mg PO BID [facility] Last Admin: 02/08/17 21:12 Dose: 25 mg Pantoprazole Sodium (Protonix Iv) 40 mg IVPUSH DAILY [facility] Last Admin: 02/08/17 09:34 Dose: 40 mg CBC, BMP 02/09/17 05:28 02/09/17 05:28 Microbiology 02/04/17 00:57 Blood Culture - Final Blood - Peripheral Venous NO GROWTH AFTER 5 DAYS INCUBATION 02/04/17 08:22 Blood Culture - Preliminary Blood - Peripheral Venous NO GROWTH OBTAINED AFTER 96 HOURS, INCUBATION TO CONTINUE FOR 1 DAYS. Physical Exam. Constitutional: Yes: Orally Intubated. Cardiovascular: Yes: Regular Rate and Rhythm Respiratory: Yes: bilateral breath sounds anteriorly. Gastrointestinal: Yes: Normal Bowel Sounds, Soft, Abdomen, Obese, Other (CARMELITA drain). No: Tenderness Edema: Yes. Bar + Heel Pads + Problem List - Problems (1) Calculus of gallbladder 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 Code(s): K80.67 - CALCULUS OF GB AND BILE DUCT W AC AND CHR CHOLECYST W OBST (2) Cholangitis due to bile duct calculus with obstruction Code(s): K80.31 - CALCULUS OF BILE DUCT W CHOLANGITIS, UNSP, WITH OBSTRUCTION (3) Choledocholithiasis with obstruction Code(s): K80.51 - CALCULUS OF BILE DUCT W/O CHOLANGITIS OR CHOLECYST W OBST (4) Dementia with behavioral disturbance Code(s): F03.91 - UNSPECIFIED DEMENTIA WITH BEHAVIORAL DISTURBANCE Qualifiers : Dementia type: unspecified type Qualified Code(s): F03.91 - Unspecified dementia with behavioral disturbance; F03.91 - Unspecified dementia with behavioral disturbance; F03.91 - Unspecified dementia with behavioral disturbance (5) Elevated liver function tests Code(s): R79.89 - OTHER SPECIFIED ABNORMAL FINDINGS OF BLOOD CHEMISTRY (6) Hypertension Code(s): I10 - ESSENTIAL (PRIMARY) HYPERTENSION Qualifiers: Hypertension type: essential hypertension Qualified Code(s): I10 - Essential (primary) hypertension; I10 - Essential (primary) hypertension; I10 - Essential (primary) hypertension (7) Severe sepsis Code(s): A41.9 - SEPSIS, UNSPECIFIED ORGANISM R65.20 - SEVERE SEPSIS WITHOUT SEPTIC SHOCK Assessment/Plan sepsis- klebscella bactremia cholangitis s/p CARMELITA drain. repeat blood cultures negative So far continue present care weaning trial critical team following condition remains critical . Consult palliative team--pending Discussed with ICU resident . Will follow.
--- NOTE | 2017-02-09 09:01 | PN ---
Progress Note, Physician Chief Complaint: intubated, unresponsive TELE: NSR, PVCs - Current Medication List Current Medications: Active Medications Artificial Tears (Artificial Tears) 1 drop OU HS [facility] Last Admin: 02/08/17 21:11 Dose: 1 drop Chlorhexidine Gluconate (Hibiclens For Decolonization -) 1 applic TP HS [facility] Last Admin: 02/08/17 21:12 Dose: 1 applic Heparin Sodium (Porcine) (Heparin -) 5,000 unit SQ TID [facility] Last Admin: 02/09/17 06:00 Dose: 5,000 unit Propofol (Diprivan -) 100 mls @ 2.722 mls/hr IVPB TITR [facility]; 5 MCG/KG/MIN PRN Reason: Protocol Last Admin: 02/08/17 09:32 Dose: 10.995 mls/hr Ampicillin Sodium 1 gm/ Sodium (Chloride) 100 mls @ 200 mls/hr IVPB Q6H-IV [facility] Last Admin: 02/09/17 03:00 Dose: 200 mls/hr Meropenem (Merrem (Restricted To Id) -) 20 mls @ 240 mls/hr IVPUSH BID [facility] Last Admin: 02/08/17 22:31 Dose: 240 mls/hr Amino Acids (Clinimix -) 1,000 mls @ 42 mls/hr IV BID [facility] Last Admin: 02/09/17 05:49 Dose: Not Given Potassium Chloride 10 meq/ (Dextrose) 1,005 mls @ 40 mls/hr IV Q24H [facility] Last Admin: 02/09/17 02:00 Dose: 40 mls/hr Metoprolol Tartrate (Lopressor -) 25 mg PO BID [facility] Last Admin: 02/08/17 21:12 Dose: 25 mg Pantoprazole Sodium (Protonix Iv) 40 mg IVPUSH DAILY [facility] Last Admin: 02/08/17 09:34 Dose: 40 mg - Objective Vital Signs: Vital Signs Temperature 98.9 F 02/08/17 22:00 Pulse Rate 75 02/09/17 06:00 Respiratory Rate 20 02/09/17 07:17 Blood Pressure 157/62 02/09/17 06:00 O2 Sat by Pulse Oximetry (%) 100 02/09/17 00:39 HENT: Yes: Other (+ ETT) Cardiovascular: Yes: Regular Rate and Rhythm Respiratory: Yes: Other (= breath sounds b/l) Gastrointestinal: Yes: Soft Edema: No Labs: CBC, BMP 02/09/17 05:28 02/09/17 05:28 INR, PTT INR 1.34 (0.82-1.09) H 02/03/17 06:00 Microbiology 02/04/17 08:22 Blood - Peripheral Venous Blood Culture - Final NO GROWTH AFTER 5 DAYS INCUBATION 02/04/17 00:57 Blood - Peripheral Venous Blood Culture - Final NO GROWTH AFTER 5 DAYS INCUBATION 02/02/17 09:00 Drainage Gram Stain - Final 02/02/17 09:00 Drainage Anaerobic Culture - Final Escherichia Coli Esbl Preparation Department Supervisor Enterococcus Faecalis NO ANAEROBES WERE ISOLATED 02/01/17 12:55 Blood - Peripheral Venous Blood Culture - Final Klebsiella Pneumoniae 02/01/17 12:55 Blood - Peripheral Venous Blood Culture - Final Klebsiella Pneumoniae Laboratory Tests 02/09/17 02/09/17 05:28 05:28 WBC 9.6 Hgb 8.9 L Plt Count 152 Sodium 143 Potassium 3.9 BUN 33 H Creatinine 1.0 Total Bilirubin 3.4 H AST 28 ALT 57 - ....Imaging EKG: Image Reviewed Assessment/Plan Assessment/Plan Sepsis, Klebsiella in blood, Ecoli/enterococcus from cholecystostomy Choledocholithiasis, s/p perc. cholecystostomy ASHD Acute respiratory failure s/p intubation HTN REC: -CK/Troponin mildly elevated in setting of septic shock and BERTA -Probable chronic underlying CAD based on EKG but this does not appear to be ACS /NSTEMI -Echo showed normal LV systolic function -Frequent PVCs, short episodes of NSVT, brief episodes PSVT on tele, improved with bblocker -As BP remains elevated, will increase lopressor to 50mg BID -cont supportive/ICU care -If mental status does not improve, would repeat head CT
[2017-02-09] MEDS ORDERED: PT OWN MED DRAWER 7, Y5N ONE ×2 (09:46→14:11)
[2017-02-09] MEDS: MEROPENEM 1 GM PUSH 20 ML IVPUSH SCH ×2 (09:57→23:44)
[2017-02-09] MEDS: PANTOPRAZOLE SODIUM 40 MG VIAL IVPUSH SCH (09:57)
[2017-02-09] MEDS: PROPOFOL 100 ML IVPB SCH (09:59)
[2017-02-09] MEDS: METOPROLOL TARTRATE 25 MG TABLET (FP) PO SCH ×2 (10:38→23:44)
[2017-02-09 10:43] LABS: ARTERIAL BLOOD GAS BASE EXCESS 0.2 meq/l (-2-2); ARTERIAL BLOOD GAS HCO3 23.3 meq/L (22-26); ARTERIAL BLOOD GAS PO2 98.3 mmHg (68-100); ARTERIAL BLOOD GAS pH 7.46 (7.35-7.45)
[2017-02-09 10:44] LABS: ALLENS TEST POSITIVE; ART PUNCT SITE LEFT RADIAL; LPM/O2% 30; PT. ON O2? YES; TYPE OF O2 MECH VENT
[2017-02-09 10:46] LABS: MECH. VENT. YES; VENT RATE 12; VT/PRESS 400
--- NOTE | 2017-02-09 12:21 | PN ---
Progress Note, Physician History of Present Illness: Chart reviewed. No events. Remains on vent support. Off Propofol. Hemodynamically stable. - Current Medication List Current Medications: Active Medications Artificial Tears (Artificial Tears) 1 drop OU HS [facility] Last Admin: 02/08/17 21:11 Dose: 1 drop Chlorhexidine Gluconate (Hibiclens For Decolonization -) 1 applic TP HS [facility] Last Admin: 02/08/17 21:12 Dose: 1 applic Heparin Sodium (Porcine) (Heparin -) 5,000 unit SQ TID [facility] Last Admin: 02/09/17 06:00 Dose: 5,000 unit Propofol (Diprivan -) 100 mls @ 2.722 mls/hr IVPB TITR [facility]; 5 MCG/KG/MIN PRN Reason: Protocol Last Admin: 02/09/17 09:59 Dose: Not Given Ampicillin Sodium 1 gm/ Sodium (Chloride) 100 mls @ 200 mls/hr IVPB Q6H-IV [facility] Last Admin: 02/09/17 09:57 Dose: 200 mls/hr Meropenem (Merrem (Restricted To Id) -) 20 mls @ 240 mls/hr IVPUSH BID [facility] Last Admin: 02/09/17 09:57 Dose: 240 mls/hr Amino Acids (Clinimix -) 1,000 mls @ 42 mls/hr IV BID [facility] Last Admin: 02/09/17 05:49 Dose: Not Given Potassium Chloride 10 meq/ (Dextrose) 1,005 mls @ 40 mls/hr IV Q24H [facility] Last Admin: 02/09/17 02:00 Dose: 40 mls/hr Metoprolol Tartrate (Lopressor -) 25 mg PO BID [facility] Last Admin: 02/09/17 10:38 Dose: 25 mg Pantoprazole Sodium (Protonix Iv) 40 mg IVPUSH DAILY [facility] Last Admin: 02/09/17 09:57 Dose: 40 mg - Objective Vital Signs: Vital Signs Temperature 99.5 F 02/09/17 10:13 Pulse Rate 78 02/09/17 12:03 Respiratory Rate 22 02/09/17 12:03 Blood Pressure 192/90 02/09/17 12:03 O2 Sat by Pulse Oximetry (%) 100 02/09/17 09:50 Gastrointestinal: Yes: Normal Bowel Sounds, Soft. No: Distention, Vomiting Labs: CBC, BMP 02/09/17 05:28 02/09/17 05:28 INR, PTT INR 1.34 (0.82-1.09) H 02/03/17 06:00 CBCD WBC 9.6 K/mm3 (4.0-10.0) 02/09/17 05:28 RBC 2.77 M/mm3 (4.00-5.60) L 02/09/17 05:28 Hgb 8.9 GM/dL (11.7-16.9) L 02/09/17 05:28 Hct 25.9 % (35.4-49) L 02/09/17 05:28 MCV 93.4 fl (80-96) 02/09/17 05:28 MCHC 34.2 g/dl (32.0-35.9) 02/09/17 05:28 RDW 16.9 % (11.9-15.9) H 02/09/17 05:28 Plt Count 152 K/MM3 (134-434) 02/09/17 05:28 MPV 9.4 fl (7.5-11.1) 02/09/17 05:28 CMP Sodium 143 mmol/L (136-145) 02/09/17 05:28 Potassium 3.9 mmol/L (3.5-5.1) 02/09/17 05:28 Chloride 111 mmol/L (98-107) H 02/09/17 05:28 Carbon Dioxide 24 mmol/L (21-32) 02/09/17 05:28 Anion Gap 8 (8-16) 02/09/17 05:28 BUN 33 mg/dL (7-18) H 02/09/17 05:28 Creatinine 1.0 mg/dL (0.7-1.3) 02/09/17 05:28 Creat Clearance w eGFR > 60 (>60) 02/09/17 05:28 Calcium 7.0 mg/dL (8.5-10.1) L 02/09/17 05:28 Total Bilirubin 3.4 mg/dL (0.2-1.0) H 02/09/17 05:28 AST 28 U/L (15-37) 02/09/17 05:28 ALT 57 U/L (12-78) 02/09/17 05:28 Alkaline Phosphatase 122 U/L (45-117) H 02/09/17 05:28 Total Protein 5.0 g/dl (6.4-8.2) L 02/09/17 05:28 Albumin 1.7 g/dl (3.4-5.0) L 02/09/17 05:28 Problem List - Problems (1) Cholangitis due to bile duct calculus with obstruction Code(s): K80.31 - CALCULUS OF BILE DUCT W CHOLANGITIS, UNSP, WITH OBSTRUCTION (2) Choledocholithiasis with obstruction Code(s): K80.51 - CALCULUS OF BILE DUCT W/O CHOLANGITIS OR CHOLECYST W OBST (3) Cholelithiasis Code(s): K80.20 - CALCULUS OF GALLBLADDER W/O CHOLECYSTITIS W/O OBSTRUCTION Assessment/Plan Cholangitis and acute blood loss anemia in a debilitated patient. . Liver chemistry, bili and ALP are trending down. T. bili remain elevated. Weaning as per ICU Nutrition evaluation requested Trial of NGT feeding with aspiration precautions. Monitor bili, alp, liver chem. daily
--- NOTE | 2017-02-09 13:07 | PN ---
Teaching Attending Note Name of Resident: Caitlin Chow ATTENDING PHYSICIAN STATEMENT I saw and evaluated the patient. I reviewed the resident's note and discussed the case with the resident. I agree with the resident's findings and plan as documented. SUBJECTIVE: Pt seen and examined in the ICU. Remains intubated, poorly responsive off sedation. Episodes of hypertension. Tolerating CPAP/PS 15/5. OBJECTIVE: Last Vital Signs Temp Pulse Resp BP Pulse Ox 99.5 F 78 22 192/90 100 02/09/17 10:13 02/09/17 12:03 02/09/17 12:20 02/09/17 12:03 02/09/17 09:50 Intake & Output 02/07/17 02/07/17 02/08/17 02/09/17 00:59 23:59 23:59 23:59 Intake Total 2728 1080 Output Total 1685 330 Balance 1043 750 Weight 173 lb 9.6 oz 176 lb 4 oz Gen: intubated, poorly responsive Heart: RRR Lung: decreased breath sounds at the bases Abd: soft, nontender Ext: trace edema CBC, BMP 02/09/17 05:28 02/09/17 05:28 Active Medications Artificial Tears (Artificial Tears) 1 drop OU HS [facility] Last Admin: 02/08/17 21:11 Dose: 1 drop Chlorhexidine Gluconate (Hibiclens For Decolonization -) 1 applic TP HS [facility] Last Admin: 02/08/17 21:12 Dose: 1 applic Heparin Sodium (Porcine) (Heparin -) 5,000 unit SQ TID [facility] Last Admin: 02/09/17 06:00 Dose: 5,000 unit Propofol (Diprivan -) 100 mls @ 2.722 mls/hr IVPB TITR [facility]; 5 MCG/KG/MIN PRN Reason: Protocol Last Admin: 02/09/17 09:59 Dose: Not Given Ampicillin Sodium 1 gm/ Sodium (Chloride) 100 mls @ 200 mls/hr IVPB Q6H-IV [facility] Last Admin: 02/09/17 09:57 Dose: 200 mls/hr Meropenem (Merrem (Restricted To Id) -) 20 mls @ 240 mls/hr IVPUSH BID [facility] Last Admin: 02/09/17 09:57 Dose: 240 mls/hr Amino Acids (Clinimix -) 1,000 mls @ 42 mls/hr IV BID [facility] Last Admin: 02/09/17 05:49 Dose: Not Given Potassium Chloride 10 meq/ (Dextrose) 1,005 mls @ 40 mls/hr IV Q24H [facility] Last Admin: 02/09/17 02:00 Dose: 40 mls/hr Metoprolol Tartrate (Lopressor -) 25 mg PO BID [facility] Last Admin: 02/09/17 10:38 Dose: 25 mg Pantoprazole Sodium (Protonix Iv) 40 mg IVPUSH DAILY [facility] Last Admin: 02/09/17 09:57 Dose: 40 mg ASSESSMENT AND PLAN: Cholangitis Klebsiella Bacteremia s/p Cholecystostomy placement Severe Sepsis improving Acute Hypoxic Respiratory Failure Acute Kidney Injury Anemia - continue antibiotics per ID - replete lytes - monitor urine output, creatinine - taper FiO2 to keep Spo2 >90% - will need CT head as pt poorly responsive off sedation - lighten sedation to assess mental status - spontaneous breathing trials when more awake - start trial of enteral feeds per GI - DVT/GI prophylaxis - continue ICU monitoring critical care time spent in reviewing chart, evaluating patient and formulating plan 35 min
--- NOTE | 2017-02-09 15:31 | PN ---
Progress Note, Physician History of Present Illness: Pt seen and examined at bedside. He remains in the ICU. Pt remain intubated and mechanically ventilated. He was not very responsive off of sedation. - Current Medication List Current Medications: Active Medications Artificial Tears (Artificial Tears) 1 drop OU HS [facility] Last Admin: 02/08/17 21:11 Dose: 1 drop Chlorhexidine Gluconate (Hibiclens For Decolonization -) 1 applic TP HS [facility] Last Admin: 02/08/17 21:12 Dose: 1 applic Heparin Sodium (Porcine) (Heparin -) 5,000 unit SQ TID [facility] Last Admin: 02/09/17 13:43 Dose: 5,000 unit Propofol (Diprivan -) 100 mls @ 2.722 mls/hr IVPB TITR [facility]; 5 MCG/KG/MIN PRN Reason: Protocol Last Admin: 02/09/17 09:59 Dose: Not Given Ampicillin Sodium 1 gm/ Sodium (Chloride) 100 mls @ 200 mls/hr IVPB Q6H-IV [facility] Last Admin: 02/09/17 14:12 Dose: 200 mls/hr Meropenem (Merrem (Restricted To Id) -) 20 mls @ 240 mls/hr IVPUSH BID [facility] Last Admin: 02/09/17 09:57 Dose: 240 mls/hr Amino Acids (Clinimix -) 1,000 mls @ 42 mls/hr IV BID [facility] Last Admin: 02/09/17 13:43 Dose: 42 mls/hr Potassium Chloride 10 meq/ (Dextrose) 1,005 mls @ 40 mls/hr IV Q24H [facility] Last Admin: 02/09/17 02:00 Dose: 40 mls/hr Metoprolol Tartrate (Lopressor -) 25 mg PO BID [facility] Last Admin: 02/09/17 10:38 Dose: 25 mg Pantoprazole Sodium (Protonix Iv) 40 mg IVPUSH DAILY [facility] Last Admin: 02/09/17 09:57 Dose: 40 mg - Objective Vital Signs: Vital Signs Temperature 99.6 F 02/09/17 14:33 Pulse Rate 76 02/09/17 14:33 Respiratory Rate 22 02/09/17 14:33 Blood Pressure 162/68 02/09/17 14:33 O2 Sat by Pulse Oximetry (%) 100 02/09/17 09:50 Constitutional: Yes: Calm Eyes: Yes: Conjunctiva Clear HENT: Yes: Atraumatic Cardiovascular: Yes: S1, S2 Respiratory: Yes: Mechanically Ventilated Gastrointestinal: Yes: Soft, Other (cholecystostomy tube) Genitourinary: Yes: WNL Musculoskeletal: Yes: WNL Edema: No Wound/Incision: Yes: Dressing Dry and Intact Neurological: Yes: Lethargy Labs: CBC, BMP 02/09/17 05:28 02/09/17 05:28 INR, PTT INR 1.34 (0.82-1.09) H 02/03/17 06:00 - ....Imaging Chest X-ray: Report Reviewed Problem List - Problems (1) Acute cholangitis due to calculus of bile duct with obstruction Code(s): K80.37 - CALCULUS OF BILE DUCT W ACUTE AND CHRONIC CHOLANGITIS W OBST (2) Hypertension Code(s): I10 - ESSENTIAL (PRIMARY) HYPERTENSION Qualifiers: Hypertension type: essential hypertension Qualified Code(s): I10 - Essential (primary) hypertension; I10 - Essential (primary) hypertension; I10 - Essential (primary) hypertension (3) JUAN J (acute kidney injury) Code(s): N17.9 - ACUTE KIDNEY FAILURE, UNSPECIFIED Assessment/Plan Current Medications Generic Name Dose Route Start Last Admin Trade Name Freq PRN Reason Stop Dose Admin Artificial Tears 1 drop 02/07/17 22:00 02/08/17 21:11 Artificial Tears OU 1 drop HS [facility] Administration Chlorhexidine Gluconate 1 applic 02/03/17 22:00 02/08/17 21:12 Hibiclens For Decolonization - TP 1 applic HS [facility] Administration Heparin Sodium (Porcine) 5,000 unit 02/08/17 22:00 02/09/17 13:43 Heparin - SQ 5,000 unit TID [facility] Administration Propofol 100 mls @ 2.722 mls/hr 02/03/17 09:00 02/09/17 09:59 Diprivan - IVPB Not Given TITR [facility] Protocol 5 MCG/KG/MIN Ampicillin Sodium 1 gm/ Sodium 100 mls @ 200 mls/hr 02/05/17 21:00 02/09/17 14: 12 Chloride IVPB 200 mls/hr Q6H-IV [facility] Administration Meropenem 20 mls @ 240 mls/hr 02/06/17 05:00 02/09/17 09:57 Merrem (Restricted To Id) - IVPUSH 240 mls/hr BID [facility] Administration Amino Acids 1,000 mls @ 42 mls/hr 02/08/17 15:30 02/09/17 13:43 Clinimix - IV 42 mls/hr BID [facility] Administration Potassium Chloride 10 meq/ 1,005 mls @ 40 mls/hr 02/08/17 17:00 02/09/17 02:00 Dextrose IV 40 mls/hr Q24H [facility] Administration Metoprolol Tartrate 25 mg 02/06/17 10:00 02/09/17 10:38 Lopressor - PO 25 mg BID [facility] Administration Pantoprazole Sodium 40 mg 02/03/17 10:00 02/09/17 09:57 Protonix Iv IVPUSH 40 mg DAILY [facility] Administration Impression 1. JUAN J 2. acute resp failure 3. sepsis 4. bacteremia 5. alzheimers 6. anemia 7. choledocholithiasis 8. hypernatremia 9. hypokalemia Plan - renal function is stabilizing - pt is getting a trial of tube feeds today - can stop clinimix and fluids if he tolerated - will decrease rate of d5w - repeat labs in am - monitor off sedation per ICU team - check cxr - cont vent support - monitor output from drain - will follow - keep in ICU Dr Haynes
--- NOTE | 2017-02-09 15:32 | PN ---
Progress Note, Physician History of Present Illness: intubated off of sedation ct of the brain done - Current Medication List Current Medications: Active Medications Artificial Tears (Artificial Tears) 1 drop OU HS [facility] Last Admin: 02/08/17 21:11 Dose: 1 drop Chlorhexidine Gluconate (Hibiclens For Decolonization -) 1 applic TP HS [facility] Last Admin: 02/08/17 21:12 Dose: 1 applic Heparin Sodium (Porcine) (Heparin -) 5,000 unit SQ TID [facility] Last Admin: 02/09/17 13:43 Dose: 5,000 unit Propofol (Diprivan -) 100 mls @ 2.722 mls/hr IVPB TITR HOANG; 5 MCG/KG/MIN PRN Reason: Protocol Last Admin: 02/09/17 09:59 Dose: Not Given Ampicillin Sodium 1 gm/ Sodium (Chloride) 100 mls @ 200 mls/hr IVPB Q6H-IV [facility] Last Admin: 02/09/17 14:12 Dose: 200 mls/hr Meropenem (Merrem (Restricted To Id) -) 20 mls @ 240 mls/hr IVPUSH BID [facility] Last Admin: 02/09/17 09:57 Dose: 240 mls/hr Amino Acids (Clinimix -) 1,000 mls @ 42 mls/hr IV BID [facility] Last Admin: 02/09/17 13:43 Dose: 42 mls/hr Potassium Chloride 10 meq/ (Dextrose) 1,005 mls @ 40 mls/hr IV Q24H [facility] Last Admin: 02/09/17 02:00 Dose: 40 mls/hr Metoprolol Tartrate (Lopressor -) 25 mg PO BID [facility] Last Admin: 02/09/17 10:38 Dose: 25 mg Pantoprazole Sodium (Protonix Iv) 40 mg IVPUSH DAILY [facility] Last Admin: 02/09/17 09:57 Dose: 40 mg - Objective Vital Signs: Vital Signs Temperature 99.6 F 02/09/17 14:33 Pulse Rate 76 02/09/17 14:33 Respiratory Rate 22 02/09/17 14:33 Blood Pressure 162/68 02/09/17 14:33 O2 Sat by Pulse Oximetry (%) 100 02/09/17 09:50 Constitutional: Yes: No Distress, Calm Cardiovascular: Yes: Regular Rate and Rhythm Respiratory: Yes: Regular, CTA Bilaterally Gastrointestinal: Yes: Normal Bowel Sounds, Soft, Other (choley tube in place) Musculoskeletal: Yes: WNL Extremities: Yes: WNL Neurological: Yes: Other Labs: CBC, BMP 02/09/17 05:28 02/09/17 05:28 INR, PTT INR 1.34 (0.82-1.09) H 02/03/17 06:00 - ....Imaging Cat Scan: Report Reviewed, Image Reviewed Assessment/Plan Problem List - Problems (1) Calculus of gallbladder 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91 - Unspecified dementia with behavioral disturbance; F03.91 - Unspecified dementia with behavioral disturbance; F03.91 - Unspecified dementia with behavioral disturbance fever 6 gm negative bacteremia cx from the gb seen all cx noted plan continue vent support continue abx close watch patient remaining stable hydration rest as per icu patient off of sedation for some time cc time 40 min
--- NOTE | 2017-02-09 18:46 | PN ---
Physical Exam: SUBJECTIVE: Patient seen and examined, still intubated; off sedation, no improvement in mental status. Non arousable. OBJECTIVE: Vital Signs Period Temp Pulse Resp BP Sys/Hernandez Pulse Ox Last 24 Hr 98.9 F-99.6 F 70-87 18-32 134-207/55-101 96-100 GENERAL: The patient is non arousable, intubated, off sedation LUNGS: decreased breath sounds equal, clear to auscultation bilaterally, no wheezes, no crackles, no accessory muscle use. HEART: Regular rate and rhythm, S1, S2 without murmur, rub or gallop. ABDOMEN: Soft, nontender, nondistended, normoactive bowel sounds, no guarding, no rebound, no hepatosplenomegaly, no masses. alejandro drain from gallbladder; draining dark fluids>70cc EXTREMITIES: 2+ pulses, warm, well-perfused, no edema. NEUROLOGICAL: currently not arousable, pupils reactive, Laboratory Results - last 24 hr 02/09/17 02/09/17 02/09/17 05:28 05:28 10:30 WBC 9.6 RBC 2.77 L Hgb 8.9 L Hct 25.9 L MCV 93.4 MCH 32.0 MCHC 34.2 RDW 16.9 H Plt Count 152 MPV 9.4 Neutrophils % 78.7 Lymphocytes % 11.5 Monocytes % 6.6 Eosinophils % 3.0 Basophils % 0.2 Puncture Site Left radial ABG pH 7.46 H ABG pCO2 at Pt Temp 33.6 L ABG pO2 at Pt Temp 98.3 D ABG HCO3 23.3 ABG O2 Sat (Measured) 98.0 ABG O2 Content 13.3 L ABG Base Excess 0.2 [place] Test Positive O2 Delivery Device Mech vent Oxygen Flow Rate 30 Vent Mode Apap +13 Vent Rate 12 Mechanical Rate Yes PEEP 5.0 Pressure Support Vent 400 Sodium 143 Potassium 3.9 Chloride 111 H Carbon Dioxide 24 Anion Gap 8 BUN 33 H Creatinine 1.0 Creat Clearance w eGFR > 60 Random Glucose 117 H Calcium 7.0 L Phosphorus 2.4 L Magnesium 1.9 Total Bilirubin 3.4 H AST 28 ALT 57 Alkaline Phosphatase 122 H Total Protein 5.0 L Albumin 1.7 L Active Medications Generic Name Dose Route Start Last Admin Trade Name Freq PRN Reason Stop Dose Admin Artificial Tears 1 drop 02/07/17 22:00 02/08/17 21:11 Artificial Tears OU 1 drop HS HOANG Administration Chlorhexidine Gluconate 1 applic 02/03/17 22:00 02/08/17 21:12 Hibiclens For Decolonization - TP 1 applic HS HOANG Administration Heparin Sodium (Porcine) 5,000 unit 02/08/17 22:00 02/09/17 13:43 Heparin - SQ 5,000 unit TID HOANG Administration Propofol 100 mls @ 2.722 mls/hr 02/03/17 09:00 02/09/17 09:59 Diprivan - IVPB Not Given TITR HOANG Protocol 5 MCG/KG/MIN Ampicillin Sodium 1 gm/ Sodium 100 mls @ 200 mls/hr 02/05/17 21:00 02/09/17 14: 12 Chloride IVPB 200 mls/hr Q6H-IV HOANG Administration Meropenem 20 mls @ 240 mls/hr 02/06/17 05:00 02/09/17 09:57 Merrem (Restricted To Id) - IVPUSH 240 mls/hr BID HOANG Administration Amino Acids 1,000 mls @ 42 mls/hr 02/08/17 15:30 02/09/17 13:43 Clinimix - IV 42 mls/hr BID HOANG Administration Metoprolol Tartrate 25 mg 02/06/17 10:00 02/09/17 10:38 Lopressor - PO 25 mg BID HOANG Administration Pantoprazole Sodium 40 mg 02/03/17 10:00 02/09/17 09:57 Protonix Iv IVPUSH 40 mg DAILY HOANG Administration ASSESSMENT/PLAN: 86 year old male with cholangitis complicated by severe sepsis secondary to klebsiella bacteremia. #Neuro: -non arousable; -has been off sedation -head CT #respiratory: -acute hypoxic respiratory failure -taper fio2 keep >90% -intubated; spontaneous breathing trials #cardiovascular: -troponin elevated most likely secondary to sepsis/JUAN J -echo showing normal LV systolic function -episodes of PVCs; -metoprolol 25mg po bid; increased to 59g po bid if pvcs cont; as per cardio -cardio consulted #GI: -cholangitis with choledolithiasis s/p cholecystostomy placement -IR consulted -LFTS improving -start enteral feeds osmolite -GI appreciated #ID: -Sepsis sec to klebsiella bacteremia; cont ampicillin and meropenam as per ID -f/u cultures -ID following #Renal: -juan j most likely to sepsis -IV hydration -trend Cr, I/O -renal following #hematology: -anemia stable -trend H/H #hypokalemia: -replace; FEN: fluids: D5W; decrease electrolytes: hypernatremia is improving; hypokalemia; replace diet: discuss with GI feeds VTE: heparin sq GI proph: protonix Disposition: cont ICU monitoring; palliative care consult Problem List - Problems (1) JUAN J (acute kidney injury) Code(s): N17.9 - ACUTE KIDNEY FAILURE, UNSPECIFIED (2) Acute cholangitis due to calculus of bile duct with obstruction Code(s): K80.37 - CALCULUS OF BILE DUCT W ACUTE AND CHRONIC CHOLANGITIS W OBST (3) Calculus of gallbladder 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 Code(s): K80.67 - CALCULUS OF GB AND BILE DUCT W AC AND CHR CHOLECYST W OBST (4) Cholangitis due to bile duct calculus with obstruction Code(s): K80.31 - CALCULUS OF BILE DUCT W CHOLANGITIS, UNSP, WITH OBSTRUCTION (5) Choledocholithiasis with obstruction Code(s): K80.51 - CALCULUS OF BILE DUCT W/O CHOLANGITIS OR CHOLECYST W OBST (6) Cholelithiasis Code(s): K80.20 - CALCULUS OF GALLBLADDER W/O CHOLECYSTITIS W/O OBSTRUCTION (7) Dementia with behavioral disturbance Code(s): F03.91 - UNSPECIFIED DEMENTIA WITH BEHAVIORAL DISTURBANCE Qualifiers : Dementia type: unspecified type Qualified Code(s): F03.91 - Unspecified dementia with behavioral disturbance; F03.91 - Unspecified dementia with behavioral disturbance; F03.91 - Unspecified dementia with behavioral disturbance (8) Elevated liver function tests Code(s): R79.89 - OTHER SPECIFIED ABNORMAL FINDINGS OF BLOOD CHEMISTRY (9) Hypertension Code(s): I10 - ESSENTIAL (PRIMARY) HYPERTENSION Qualifiers: Hypertension type: essential hypertension Qualified Code(s): I10 - Essential (primary) hypertension; I10 - Essential (primary) hypertension; I10 - Essential (primary) hypertension (10) Klebsiella pneumoniae sepsis Code(s): A41.4 - SEPSIS DUE TO ANAEROBES (11) Macular degeneration, age related Code(s): H35.30 - UNSPECIFIED MACULAR DEGENERATION (12) Sepsis due to Gram-negative organism with acute respiratory failure Code(s): A41.50 - GRAM-NEGATIVE SEPSIS, UNSPECIFIED R65.20 - SEVERE SEPSIS WITHOUT SEPTIC SHOCK J96.00 - ACUTE RESPIRATORY FAILURE, UNSP W HYPOXIA OR HYPERCAPNIA (13) Severe sepsis Code(s): A41.9 - SEPSIS, UNSPECIFIED ORGANISM R65.20 - SEVERE SEPSIS WITHOUT SEPTIC SHOCK Visit type - Emergency Visit Emergency Visit: Yes ED Registration Date: 02/01/17 Care time: The patient presented to the Emergency Department on the above date and was hospitalized for further evaluation of their emergent condition. - New Patient This patient is new to me today: No - Critical Care Critical Care patient: Yes Total Critical Care Time (in minutes): 35 Critical Care Statement: The care of this patient involved high complexity decision making to prevent further life threatening deterioration of the patient 's condition and/or to evaluate & treat vital organ system(s) failure or risk of failure.
[2017-02-09] MEDS: ARTIFICIAL TEARS (POLYVINYL ALCOHOL 1.4%) OPTH DROPS OU SCH (23:42)
[2017-02-09] MEDS: CHLORHEXIDINE GLUCONATE 4% CLEANSER FOR DECOLONIZATION TP SCH (23:43)
[2017-02-10] MEDS ORDERED: PT OWN MED DRAWER 7, Y5N ONE ×4 (03:37→14:52)
[2017-02-10] MEDS: AMPICILLIN - 1 GM in SODIUM CHLORIDE 100 ML IVPB SCH ×4 (03:55→21:06)
[2017-02-10 07:29] LABS: ALBUMIN 1.8 g/dl (3.4-5.0); ALK PHOS 143 U/L (45-117); ANION GAP 9 (8-16); BILIRUBIN,TOTAL 3.3 mg/dL (0.2-1.0); CO2 24 mmol/L (21-32); CREATININE 0.9 mg/dL (0.7-1.3); GLUCOSE,RANDOM 124 mg/dL (74-106); MAGNESIUM 2.1 mg/dL (1.8-2.4); PHOSPHOROUS 1.9 mg/dL (2.5-4.9); SGOT/AST 36 U/L (15-37); SGPT/ALT 52 U/L (12-78); TOT PROT 5.2 g/dl (6.4-8.2)
[2017-02-10] MEDS: HEPARIN NA (PORCINE) 5,000 UNITS/ML 1ML VIAL SQ SCH ×3 (07:54→21:07)
[2017-02-10] MEDS: AMINO ACIDS 4.25%/D5W 1,000 ML IV SCH ×3 (07:55→16:53)
[2017-02-10 08:19] LABS: BASOPHIL 0.5 % (0-2.0); EOSINOPHIL 2.7 % (0-4.5); MCH 31.9 pg (25.7-33.7); MCHC 34.2 g/dl (32.0-35.9); MEAN CELL VOLUME 93.3 fl (80-96); MEAN PLT VOLUME 10.1 fl (7.5-11.1); NEUTROPHILS 80.7 % (42.8-82.8); PLATELET COUNT 197 K/MM3 (134-434); RDW 16.5 % (11.9-15.9); WHITE BLOOD COUNT 9.8 K/mm3 (4.0-10.0)
--- NOTE | 2017-02-10 08:30 | PN ---
Progress Note, Physician Chief Complaint: remains intubated, no sig clinical change Head CT no bleed or acute CVA TELE: NSR, couplets and runs NSVT, 3 beats History of Present Illness: intubated - Current Medication List Current Medications: Active Medications Artificial Tears (Artificial Tears) 1 drop OU HS [facility] Last Admin: 02/09/17 23:42 Dose: 1 drop Chlorhexidine Gluconate (Hibiclens For Decolonization -) 1 applic TP HS [facility] Last Admin: 02/09/17 23:43 Dose: 1 applic Heparin Sodium (Porcine) (Heparin -) 5,000 unit SQ TID [facility] Last Admin: 02/10/17 07:54 Dose: 5,000 unit Propofol (Diprivan -) 100 mls @ 2.722 mls/hr IVPB TITR HOANG; 5 MCG/KG/MIN PRN Reason: Protocol Last Admin: 02/09/17 09:59 Dose: Not Given Ampicillin Sodium 1 gm/ Sodium (Chloride) 100 mls @ 200 mls/hr IVPB Q6H-IV [facility] Last Admin: 02/10/17 03:55 Dose: 200 mls/hr Meropenem (Merrem (Restricted To Id) -) 20 mls @ 240 mls/hr IVPUSH BID [facility] Last Admin: 02/09/17 23:44 Dose: 240 mls/hr Amino Acids (Clinimix -) 1,000 mls @ 42 mls/hr IV BID [facility] Last Admin: 02/10/17 07:55 Dose: 42 mls/hr Metoprolol Tartrate (Lopressor -) 25 mg PO BID [facility] Last Admin: 02/09/17 23:44 Dose: 25 mg Pantoprazole Sodium (Protonix Iv) 40 mg IVPUSH DAILY [facility] Last Admin: 02/09/17 09:57 Dose: 40 mg - Objective Vital Signs: Vital Signs Temperature 98.7 F 02/10/17 02:00 Pulse Rate 80 02/10/17 02:00 Respiratory Rate 16 02/10/17 06:30 Blood Pressure 175/57 02/10/17 02:00 O2 Sat by Pulse Oximetry (%) 100 02/09/17 20:29 Constitutional: Yes: Other (+ ETT) Cardiovascular: Yes: Regular Rate and Rhythm Respiratory: Yes: Other (= breath sounds b/l) Gastrointestinal: Yes: Soft Edema: No Labs: INR, PTT INR 1.34 (0.82-1.09) H 02/03/17 06:00 - ....Imaging Chest X-ray: Image Reviewed EKG: Image Reviewed Assessment/Plan Assessment/Plan Sepsis, Klebsiella in blood, Ecoli/enterococcus from cholecystostomy Choledocholithiasis, s/p perc. cholecystostomy ASHD Acute respiratory failure s/p intubation HTN REC: -CK/Troponin mildly elevated in setting of septic shock and BERTA -Probable chronic underlying CAD based on EKG but this does not appear to be ACS /NSTEMI -Echo showed normal LV systolic function -Frequent PVCs, short episodes of NSVT, brief episodes PSVT on tele, improved with bblocker -As BP remains elevated, will increase lopressor to 50mg BID -cont supportive/ICU care -If mental status does not improve, would repeat head CT
--- NOTE | 2017-02-10 08:38 | PN ---
Progress Note, Physician History of Present Illness: Vomited gastric contents while receiving NGT feeding at 20 cc/hr. Otherwise no events. Feeding is on hold - Current Medication List Current Medications: Active Medications Artificial Tears (Artificial Tears) [address] [facility] Last Admin: 02/09/17 23:42 Dose: 1 drop Chlorhexidine Gluconate (Hibiclens For Decolonization -) [address] [facility] Last Admin: 02/09/17 23:43 Dose: 1 applic Heparin Sodium (Porcine) (Heparin -) 5,[address] [facility] Last Admin: 02/10/17 07:54 Dose: 5,000 unit Propofol (Diprivan -) 100 mls @ 2.722 mls/hr IVPB TITR HOANG; 5 MCG/KG/MIN PRN Reason: Protocol Last Admin: 02/09/17 09:59 Dose: Not Given Ampicillin Sodium 1 gm/ Sodium (Chloride) 100 mls @ 200 mls/hr IVPB Q6H-IV [facility] Last Admin: 02/10/17 03:55 Dose: 200 mls/hr Meropenem (Merrem (Restricted To Id) -) 20 mls @ 240 mls/hr IVPUSH BID [facility] Last Admin: 02/09/17 23:44 Dose: 240 mls/hr Amino Acids (Clinimix -) 1,000 mls @ 42 mls/hr IV BID [facility] Last Admin: 02/10/17 07:55 Dose: 42 mls/hr Metoprolol Tartrate (Lopressor -) [address] [facility] Pantoprazole Sodium (Protonix Iv) [address] [facility] Last Admin: 02/09/17 09:57 Dose: 40 mg - Objective Vital Signs: Vital Signs Temperature 98.7 F 02/10/17 02:00 Pulse Rate 80 02/10/17 02:00 Respiratory Rate 16 02/10/17 06:30 Blood Pressure 175/57 02/10/17 02:00 O2 Sat by Pulse Oximetry (%) 100 02/09/17 20:29 Constitutional: Yes: No Distress, Calm Eyes: Yes: Conjunctiva Clear Gastrointestinal: Yes: Normal Bowel Sounds, Soft, Distention Neurological: No: Alert Labs: CBC, BMP 02/10/17 07:20 INR, PTT INR 1.34 (0.82-1.09) H 02/03/17 06:00 CBCD WBC 9.8 K/mm3 (4.0-10.0) 02/10/17 07:20 RBC 2.94 M/mm3 (4.00-5.60) L 02/10/17 07:20 Hgb 9.4 GM/dL (11.7-16.9) L 02/10/17 07:20 Hct 27.5 % (35.4-49) L 02/10/17 07:20 MCV 93.3 fl (80-96) 02/10/17 07:20 MCHC 34.2 g/dl (32.0-35.9) 02/10/17 07:20 RDW 16.5 % (11.9-15.9) H 02/10/17 07:20 Plt Count 197 K/MM3 (134-434) D 02/10/17 07:20 MPV 10.1 fl (7.5-11.1) 02/10/17 07:20 CMP Sodium 142 mmol/L (136-145) 02/10/17 07:20 Potassium 3.5 mmol/L (3.5-5.1) 02/10/17 07:20 Chloride 109 mmol/L (98-107) H 02/10/17 07:20 Carbon Dioxide 24 mmol/L (21-32) 02/10/17 07:20 Anion Gap 9 (8-16) 02/10/17 07:20 BUN 30 mg/dL (7-18) H 02/10/17 07:20 Creatinine 0.9 mg/dL (0.7-1.3) 02/10/17 07:20 Creat Clearance w eGFR > 60 (>60) 02/10/17 07:20 Calcium 6.7 mg/dL (8.5-10.1) L* 02/10/17 07:20 Total Bilirubin 3.3 mg/dL (0.2-1.0) H 02/10/17 07:20 AST 36 U/L (15-37) D 02/10/17 07:20 ALT 52 U/L (12-78) 02/10/17 07:20 Alkaline Phosphatase 143 U/L (45-117) H 02/10/17 07:20 Total Protein 5.2 g/dl (6.4-8.2) L 02/10/17 07:20 Albumin 1.8 g/dl (3.4-5.0) L 02/10/17 07:20 - ....Imaging X-ray: Image Reviewed (NGT in place) Problem List - Problems (1) Cholangitis due to bile duct calculus with obstruction Code(s): K80.31 - CALCULUS OF BILE DUCT W CHOLANGITIS, UNSP, WITH OBSTRUCTION (2) Cholelithiasis Code(s): K80.20 - CALCULUS OF GALLBLADDER W/O CHOLECYSTITIS W/O OBSTRUCTION (3) Choledocholithiasis with obstruction Code(s): K80.51 - CALCULUS OF BILE DUCT W/O CHOLANGITIS OR CHOLECYST W OBST Assessment/Plan Cholangitis and acute blood loss anemia in a debilitated patient. . Liver chemistry, bili and ALP are trending down. T. bili remain elevated. Weaning as per ICU Nutrition evaluation requested Resume NGT feeding with aspiration precautions and observe. Monitor bili, alp, liver chem. daily
[2017-02-10 08:46] LABS: CALCIUM 6.7 mg/dL (8.5-10.1)
--- NOTE | 2017-02-10 09:47 | PN ---
Progress Note, Physician Chief Complaint: event noted NG feeding stopped as he vomited Still intubated , but is awake , not following commands - Current Medication List Current Medications: Active Medications Artificial Tears (Artificial Tears) 1 drop OU HS [facility] Last Admin: 02/09/17 23:42 Dose: 1 drop Chlorhexidine Gluconate (Hibiclens For Decolonization -) 1 applic TP HS [facility] Last Admin: 02/09/17 23:43 Dose: 1 applic Heparin Sodium (Porcine) (Heparin -) 5,000 unit SQ TID [facility] Last Admin: 02/10/17 07:54 Dose: 5,000 unit Propofol (Diprivan -) 100 mls @ 2.722 mls/hr IVPB TITR HOANG; 5 MCG/KG/MIN PRN Reason: Protocol Last Admin: 02/09/17 09:59 Dose: Not Given Ampicillin Sodium 1 gm/ Sodium (Chloride) 100 mls @ 200 mls/hr IVPB Q6H-IV [facility] Last Admin: 02/10/17 03:55 Dose: 200 mls/hr Meropenem (Merrem (Restricted To Id) -) 20 mls @ 240 mls/hr IVPUSH BID [facility] Last Admin: 02/09/17 23:44 Dose: 240 mls/hr Amino Acids (Clinimix -) 1,000 mls @ 42 mls/hr IV BID [facility] Last Admin: 02/10/17 07:55 Dose: 42 mls/hr Metoprolol Tartrate (Lopressor -) 50 mg PO BID [facility] Pantoprazole Sodium (Protonix Iv) 40 mg IVPUSH DAILY [facility] Last Admin: 02/09/17 09:57 Dose: 40 mg - Objective Vital Signs: Vital Signs Temperature 98.7 F 02/10/17 02:00 Pulse Rate 74 02/10/17 09:11 Respiratory Rate 18 02/10/17 09:11 Blood Pressure 161/65 02/10/17 09:11 O2 Sat by Pulse Oximetry (%) 98 02/10/17 09:00 Constitutional: Yes: No Distress Cardiovascular: Yes: Regular Rate and Rhythm Respiratory: Yes: Diminished Gastrointestinal: Yes: Normal Bowel Sounds, Soft, Abdomen, Obese, Tenderness, Other (drain+). No: Distention Edema: Yes Edema: LLE: Trace, RLE: Trace Labs: CBC, BMP 02/10/17 07:20 02/10/17 07:20 INR, PTT INR 1.34 (0.82-1.09) H 02/03/17 06:00 Problem List - Problems (1) Severe sepsis Code(s): A41.9 - SEPSIS, UNSPECIFIED ORGANISM; R65.20 - SEVERE SEPSIS WITHOUT SEPTIC SHOCK (2) Elevated liver function tests Code(s): R79.89 - OTHER SPECIFIED ABNORMAL FINDINGS OF BLOOD CHEMISTRY (3) Cholangitis due to bile duct calculus with obstruction Code(s): K80.31 - CALCULUS OF BILE DUCT W CHOLANGITIS, UNSP, WITH OBSTRUCTION (4) Choledocholithiasis with obstruction Code(s): K80.51 - CALCULUS OF BILE DUCT W/O CHOLANGITIS OR CHOLECYST W OBST (5) Dementia with behavioral disturbance Code(s): F03.91 - UNSPECIFIED DEMENTIA WITH BEHAVIORAL DISTURBANCE Qualifiers: Dementia type: unspecified type Qualified Code(s): F03.91 - Unspecified dementia with behavioral disturbance (6) Calculus of gallbladder 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 Code(s): K80.67 - CALCULUS OF GB AND BILE DUCT W AC AND CHR CHOLECYST W OBST (7) Hypertension Code(s): I10 - ESSENTIAL (PRIMARY) HYPERTENSION Qualifiers: Hypertension type: essential hypertension Qualified Code(s): I10 - Essential (primary) hypertension Assessment/Plan PLAN s/p CARMELITA drain IV antibiotics, repeat blood cultures negative keep NPO for now, check FUA- may restart feeds if FUA normal and no plan on extubating pt IV fluids LFTs decreasing renal function improving weaning trial per ICU not on pressors continue vent support DVT prophylaxis-- SCD
[2017-02-10] MEDS: METOPROLOL TARTRATE 50 MG TABLET (FP) PO SCH ×2 (10:56→21:07)
[2017-02-10] MEDS: MEROPENEM 1 GM PUSH 20 ML IVPUSH SCH ×2 (10:57→21:08)
[2017-02-10] MEDS: PANTOPRAZOLE SODIUM 40 MG VIAL IVPUSH SCH (10:57)
--- NOTE | 2017-02-10 11:50 | PN ---
Physical Exam: SUBJECTIVE: Patient seen and examine; off sedation day #2; more alert; some eye opening. Intubated, wean trial on CPAP. Head CT no acute pathology. tube feeds started last night; vomiting overnight. OBJECTIVE: Vital Signs Period Temp Pulse Resp BP Sys/Hernandez Pulse Ox Last 24 Hr 98.7 F-99.6 F 74-80 16-24 160-192/57-90 96-100 GENERAL: The patient is intubated, not sedated, lethargic HEAD: Normal with no signs of trauma. EYES:pupils reactive LUNGS: Breath sounds equal, clear to auscultation bilaterally, no wheezes, no crackles, no accessory muscle use. HEART: Regular rate and rhythm, S1, S2 without murmur, rub or gallop. ABDOMEN: Soft, nontender, nondistended, normoactive bowel sounds, no guarding, no rebound, no hepatosplenomegaly, no masses. CARMELITA drain from gallbladder draining, black/brown fluid EXTREMITIES: 2+ pulses, warm, well-perfused, no edema. NEUROLOGICAL: lethargic some eye opening to verbal and tactile stimuli Laboratory Results - last 24 hr 02/10/17 02/10/17 07:20 07:20 WBC 9.8 RBC 2.94 L Hgb 9.4 L Hct 27.5 L MCV 93.3 MCH 31.9 MCHC 34.2 RDW 16.5 H Plt Count 197 D MPV 10.1 Neutrophils % 80.7 Lymphocytes % 9.2 Monocytes % 6.9 Eosinophils % 2.7 Basophils % 0.5 Sodium 142 Potassium 3.5 Chloride 109 H Carbon Dioxide 24 Anion Gap 9 BUN 30 H Creatinine 0.9 Creat Clearance w eGFR > 60 Random Glucose 124 H Calcium 6.7 L* Phosphorus 1.9 L D Magnesium 2.1 Total Bilirubin 3.3 H AST 36 D ALT 52 Alkaline Phosphatase 143 H Total Protein 5.2 L Albumin 1.8 L Active Medications Generic Name Dose Route Start Last Admin Trade Name Freq PRN Reason Stop Dose Admin Artificial Tears 1 drop 02/07/17 22:00 02/09/17 23:42 Artificial Tears OU 1 drop HS HOANG Administration Chlorhexidine Gluconate 1 applic 02/03/17 22:00 02/09/17 23:43 Hibiclens For Decolonization - TP 1 applic HS HOANG Administration Heparin Sodium (Porcine) 5,000 unit 02/08/17 22:00 02/10/17 07:54 Heparin - SQ 5,000 unit TID HOANG Administration Propofol 100 mls @ 2.722 mls/hr 02/03/17 09:00 02/09/17 09:59 Diprivan - IVPB Not Given TITR HOANG Protocol 5 MCG/KG/MIN Ampicillin Sodium 1 gm/ Sodium 100 mls @ 200 mls/hr 02/05/17 21:00 02/10/17 09:00 Chloride IVPB 200 mls/hr Q6H-IV [facility]ANG Administration Meropenem 20 mls @ 240 mls/hr 02/06/17 05:00 02/10/17 10:57 Merrem (Restricted To Id) - IVPUSH 240 mls/hr BID HOANG Administration Amino Acids 1,000 mls @ 42 mls/hr 02/08/17 15:30 02/10/17 10:58 Clinimix - IV 42 mls/hr BID HOANG Administration Metoprolol Tartrate 50 mg 02/10/17 09:00 02/10/17 10:56 Lopressor - PO 50 mg BID HOANG Administration Pantoprazole Sodium 40 mg 02/03/17 10:00 02/10/17 10:57 Protonix Iv IVPUSH 40 mg DAILY HOANG Administration ASSESSMENT/PLAN: 86 year old male with cholangitis complicated by severe sepsis secondary to klebsiella bacteremia. #Neuro: -slight improvement form yesterday; - at bedside; states has baseline dementia -has been off sedation -head CT negative for acute pathology #respiratory: -acute hypoxic respiratory failure -taper fio2 keep >90% -intubated; spontaneous breathing trials #cardiovascular: -troponin elevated most likely secondary to sepsis/JUAN J -echo showing normal LV systolic function -episodes of PVCs; -metoprolol 50mg po bid #GI: -cholangitis with choledolithiasis s/p cholecystostomy placement -IR consulted -LFTS improving; alk phos slightly elevated -senteral feeds osmolite stopped due to episodes of vomiting last night -restart clinimex -f/u KUB -GI appreciated #ID: -Sepsis sec to klebsiella bacteremia; cont ampicillin and meropenam as per ID -f/u cultures -ID following #Renal: -juan j most likely to sepsis -IV hydration -trend Cr, I/O -renal following #hematology: -anemia stable -trend H/H #hypokalemia: -replace; #hypomagnesemia: replace #hypophoshatemia: replce VTE: heparin sq GI proph: protonix Disposition: cont ICU monitoring; palliative care consult Problem List - Problems (1) Severe sepsis Code(s): A41.9 - SEPSIS, UNSPECIFIED ORGANISM; R65.20 - SEVERE SEPSIS WITHOUT SEPTIC SHOCK (2) Elevated liver function tests Code(s): R79.89 - OTHER SPECIFIED ABNORMAL FINDINGS OF BLOOD CHEMISTRY (3) Cholangitis due to bile duct calculus with obstruction Code(s): K80.31 - CALCULUS OF BILE DUCT W CHOLANGITIS, UNSP, WITH OBSTRUCTION (4) Cholelithiasis Code(s): K80.20 - CALCULUS OF GALLBLADDER W/O CHOLECYSTITIS W/O OBSTRUCTION (5) Choledocholithiasis with obstruction Code(s): K80.51 - CALCULUS OF BILE DUCT W/O CHOLANGITIS OR CHOLECYST W OBST (6) Dementia with behavioral disturbance Code(s): F03.91 - UNSPECIFIED DEMENTIA WITH BEHAVIORAL DISTURBANCE Qualifiers: Dementia type: unspecified type Qualified Code(s): F03.91 - Unspecified dementia with behavioral disturbance (7) Calculus of gallbladder 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 Code(s): K80.67 - CALCULUS OF GB AND BILE DUCT W AC AND CHR CHOLECYST W OBST (8) Macular degeneration, age related Code(s): H35.30 - UNSPECIFIED MACULAR DEGENERATION (9) Hypertension Code(s): I10 - ESSENTIAL (PRIMARY) HYPERTENSION Qualifiers: Hypertension type: essential hypertension Qualified Code(s): I10 - Essential (primary) hypertension (10) Klebsiella pneumoniae sepsis Code(s): A41.4 - SEPSIS DUE TO ANAEROBES (11) Sepsis due to Gram-negative organism with acute respiratory failure Code(s): A41.50 - GRAM-NEGATIVE SEPSIS, UNSPECIFIED; R65.20 - SEVERE SEPSIS WITHOUT SEPTIC SHOCK; J96.00 - ACUTE RESPIRATORY FAILURE, UNSP W HYPOXIA OR HYPERCAPNIA (12) Acute cholangitis due to calculus of bile duct with obstruction Code(s): K80.37 - CALCULUS OF BILE DUCT W ACUTE AND CHRONIC CHOLANGITIS W OBST (13) JUAN J (acute kidney injury) Code(s): N17.9 - ACUTE KIDNEY FAILURE, UNSPECIFIED Visit type - Emergency Visit Emergency Visit: Yes ED Registration Date: 02/01/17 Care time: The patient presented to the Emergency Department on the above date and was hospitalized for further evaluation of their emergent condition. - New Patient This patient is new to me today: No - Critical Care Critical Care patient: Yes Total Critical Care Time (in minutes): 35 Critical Care Statement: The care of this patient involved high complexity decision making to prevent further life threatening deterioration of the patient 's condition and/or to evaluate & treat vital organ system(s) failure or risk of failure.
--- NOTE | 2017-02-10 11:51 | PN ---
Progress Note, Physician History of Present Illness: patient more responsive plan to extubate still intubated had vomiting feeds on hold - Current Medication List Current Medications: Active Medications Artificial Tears (Artificial Tears) 1 drop OU HS [facility] Last Admin: 02/09/17 23:42 Dose: 1 drop Chlorhexidine Gluconate (Hibiclens For Decolonization -) 1 applic TP HS [facility] Last Admin: 02/09/17 23:43 Dose: 1 applic Heparin Sodium (Porcine) (Heparin -) 5,000 unit SQ TID [facility] Last Admin: 02/10/17 07:54 Dose: 5,000 unit Propofol (Diprivan -) 100 mls @ 2.722 mls/hr IVPB TITR [facility]ONG; 5 MCG/KG/MIN PRN Reason: Protocol Last Admin: 02/09/17 09:59 Dose: Not Given Ampicillin Sodium 1 gm/ Sodium (Chloride) 100 mls @ 200 mls/hr IVPB Q6H-IV [facility] Last Admin: 02/10/17 09:00 Dose: 200 mls/hr Meropenem (Merrem (Restricted To Id) -) 20 mls @ 240 mls/hr IVPUSH BID [facility] Last Admin: 02/10/17 10:57 Dose: 240 mls/hr Amino Acids (Clinimix -) 1,000 mls @ 42 mls/hr IV BID [facility] Last Admin: 02/10/17 10:58 Dose: 42 mls/hr Metoprolol Tartrate (Lopressor -) 50 mg PO BID [facility] Last Admin: 02/10/17 10:56 Dose: 50 mg Pantoprazole Sodium (Protonix Iv) 40 mg IVPUSH DAILY [facility] Last Admin: 02/10/17 10:57 Dose: 40 mg - Objective Vital Signs: Vital Signs Temperature 98.8 F 02/10/17 10:00 Pulse Rate 78 02/10/17 10:56 Respiratory Rate 17 02/10/17 10:05 Blood Pressure 161/65 02/10/17 10:00 O2 Sat by Pulse Oximetry (%) 96 02/10/17 10:56 Constitutional: Yes: Other Cardiovascular: Yes: Regular Rate and Rhythm Respiratory: Yes: Regular, Intubated, Mechanically Ventilated Gastrointestinal: Yes: Normal Bowel Sounds, Soft, Other (choley in place) Musculoskeletal: Yes: WNL Extremities: Yes: WNL Neurological: Yes: Other (patient more responsive) Psychiatric: Yes: Other Labs: CBC, BMP 02/10/17 07:20 02/10/17 07:20 INR, PTT INR 1.34 (0.82-1.09) H 02/03/17 06:00 Assessment/Plan Problem List - Problems (1) Calculus of gallbladder 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91 - Unspecified dementia with behavioral disturbance; F03.91 - Unspecified dementia with behavioral disturbance; F03.91 - Unspecified dementia with behavioral disturbance fever 6 gm negative bacteremia cx from the gb seen all cx noted plan continue vent support continue abx close watch patient remaining stable hydration rest as per icu more responsive cc time 40 min
[2017-02-10] MEDS ORDERED: AMINO ACIDS 4.25%/D5W 1,000 ML IV SCH (12:00)
--- NOTE | 2017-02-10 12:41 | PN ---
Progress Note, Physician History of Present Illness: Pt seen and examined at bedside. He remains in the ICU. Pt remains intubated. He did not tolerate feeds. - Current Medication List Current Medications: Active Medications Artificial Tears (Artificial Tears) 1 drop OU HS [facility] Last Admin: 02/09/17 23:42 Dose: 1 drop Chlorhexidine Gluconate (Hibiclens For Decolonization -) 1 applic TP HS [facility] Last Admin: 02/09/17 23:43 Dose: 1 applic Heparin Sodium (Porcine) (Heparin -) 5,000 unit SQ TID [facility] Last Admin: 02/10/17 07:54 Dose: 5,000 unit Propofol (Diprivan -) 100 mls @ 2.722 mls/hr IVPB TITR HOANG; 5 MCG/KG/MIN PRN Reason: Protocol Last Admin: 02/09/17 09:59 Dose: Not Given Ampicillin Sodium 1 gm/ Sodium (Chloride) 100 mls @ 200 mls/hr IVPB Q6H-IV [facility] Last Admin: 02/10/17 09:00 Dose: 200 mls/hr Meropenem (Merrem (Restricted To Id) -) 20 mls @ 240 mls/hr IVPUSH BID [facility] Last Admin: 02/10/17 10:57 Dose: 240 mls/hr Amino Acids (Clinimix -) 1,000 mls @ 42 mls/hr IV BID [facility] Last Admin: 02/10/17 10:58 Dose: 42 mls/hr Amino Acids (Clinimix -) 1,000 mls @ 42 mls/hr IV Q12H [facility] Metoprolol Tartrate (Lopressor -) 50 mg PO BID [facility] Last Admin: 02/10/17 10:56 Dose: 50 mg Pantoprazole Sodium (Protonix Iv) 40 mg IVPUSH DAILY [facility] Last Admin: 02/10/17 10:57 Dose: 40 mg - Objective Vital Signs: Vital Signs Temperature 98.8 F 02/10/17 10:00 Pulse Rate 74 02/10/17 12:00 Respiratory Rate 24 02/10/17 12:20 Blood Pressure 133/56 02/10/17 12:00 O2 Sat by Pulse Oximetry (%) 96 02/10/17 10:56 Constitutional: Yes: Calm Eyes: Yes: Conjunctiva Clear HENT: Yes: Atraumatic Neck: Yes: Supple Cardiovascular: Yes: S1, S2 Respiratory: Yes: Mechanically Ventilated Gastrointestinal: Yes: Soft, Other (cholecystostomy tube) Musculoskeletal: Yes: Muscle Weakness Edema: No Neurological: Yes: Lethargy Labs: CBC, BMP 02/10/17 07:20 02/10/17 07:20 INR, PTT INR 1.34 (0.82-1.09) H 02/03/17 06:00 - ....Imaging Chest X-ray: Report Reviewed Problem List - Problems (1) Hypertension Code(s): I10 - ESSENTIAL (PRIMARY) HYPERTENSION Qualifiers: Hypertension type: essential hypertension Qualified Code(s): I10 - Essential (primary) hypertension (2) Acute cholangitis due to calculus of bile duct with obstruction Code(s): K80.37 - CALCULUS OF BILE DUCT W ACUTE AND CHRONIC CHOLANGITIS W OBST (3) JUAN J (acute kidney injury) Code(s): N17.9 - ACUTE KIDNEY FAILURE, UNSPECIFIED Assessment/Plan Current Medications Generic Name Dose Route Start Last Admin Trade Name Freq PRN Reason Stop Dose Admin Artificial Tears 1 drop 02/07/17 22:00 02/09/17 23:42 Artificial Tears OU 1 drop HS HOANG Administration Chlorhexidine Gluconate 1 applic 02/03/17 22:00 02/09/17 23:43 Hibiclens For Decolonization - TP 1 applic HS HOANG Administration Heparin Sodium (Porcine) 5,000 unit 02/08/17 22:00 02/10/17 07:54 Heparin - SQ 5,000 unit TID HOANG Administration Propofol 100 mls @ 2.722 mls/hr 02/03/17 09:00 02/09/17 09:59 Diprivan - IVPB Not Given TITR HOANG Protocol 5 MCG/KG/MIN Ampicillin Sodium 1 gm/ Sodium 100 mls @ 200 mls/hr 02/05/17 21:00 02/10/17 09:00 Chloride IVPB 200 mls/hr Q6H-IV HOANG Administration Meropenem 20 mls @ 240 mls/hr 02/06/17 05:00 02/10/17 10:57 Merrem (Restricted To Id) - IVPUSH 240 mls/hr BID HOANG Administration Amino Acids 1,000 mls @ 42 mls/hr 02/08/17 15:30 02/10/17 10:58 Clinimix - IV 42 mls/hr BID HOANG Administration Amino Acids 1,000 mls @ 42 mls/hr 02/10/17 12:00 Clinimix - IV Q12H HOANG Metoprolol Tartrate 50 mg 02/10/17 09:00 02/10/17 10:56 Lopressor - PO 50 mg BID HOANG Administration Pantoprazole Sodium 40 mg 02/03/17 10:00 02/10/17 10:57 Protonix Iv IVPUSH 40 mg DAILY HOANG Administration Impression 1. JUAN J 2. acute resp failure 3. sepsis 4. bacteremia 5. alzheimers 6. anemia 7. choledocholithiasis 8. hypernatremia 9. hypokalemia Plan - pt did not tolerated PO - can stop d5w and just give clinimic - monitor lytes - monitor renal function - vent support - monitor output from drain - will follow - keep in ICU - surgery follow up Dr Haynes
--- NOTE | 2017-02-10 14:14 | EKG ---
Test Reason : Blood Pressure : / mmHG Vent. Rate : 081 BPM Atrial Rate : 081 BPM P-R Int : 156 ms QRS Dur : 096 ms QT Int : 396 ms P-R-T Axes : 051 -45 -05 degrees QTc Int : 460 ms SINUS RHYTHM WITH OCCASIONAL PREMATURE VENTRICULAR COMPLEXES LEFT AXIS DEVIATION INFERIOR INFARCT (CITED ON OR BEFORE 01-FEB-2017) ABNORMAL ECG WHEN COMPARED WITH ECG OF 03-FEB-2017 10:34, PREMATURE VENTRICULAR COMPLEXES ARE NOW PRESENT Confirmed by RICKY HER MD ([id number]) on 02/10/2017 2:13:55 PM Referred By: CHEL Confirmed By:RICKY HER MD
--- NOTE | 2017-02-10 14:52 | PN ---
Teaching Attending Note Name of Resident: Caitlin Chow ATTENDING PHYSICIAN STATEMENT I saw and evaluated the patient. I reviewed the resident's note and discussed the case with the resident. I agree with the resident's findings and plan as documented. SUBJECTIVE: Pt seen and examined in the ICU. Remains intubated, poorly responsive off sedation. Apparently baseline mental status is poor. Did not tolerate enteral feeds, had episode of vomiting. OBJECTIVE: Last Vital Signs Temp Pulse Resp BP Pulse Ox 98.8 F 76 22 136/52 96 02/10/17 10:00 02/10/17 12:47 02/10/17 14:00 02/10/17 14:00 02/10/17 10:56 Intake & Output 02/07/17 02/08/17 02/09/17 02/10/17 23:59 23:59 23:59 23:59 Intake Total 2728 2510 460 Output Total 1685 1450 450 Balance 1043 1060 10 Weight 173 lb 9.6 oz 176 lb 4 oz 174 lb 5 oz Gen: intubated, poorly responsive Heart: RRR Lung: decreased breath sounds at the bases Abd: soft, nontender Ext: + edema CBC, BMP 02/10/17 07:20 02/10/17 07:20 Active Medications Artificial Tears (Artificial Tears) 1 drop OU HS [facility] Last Admin: 02/09/17 23:42 Dose: 1 drop Chlorhexidine Gluconate (Hibiclens For Decolonization -) 1 applic TP HS [facility] Last Admin: 02/09/17 23:43 Dose: 1 applic Heparin Sodium (Porcine) (Heparin -) 5,000 unit SQ TID [facility] Last Admin: 02/10/17 14:13 Dose: 5,000 unit Propofol (Diprivan -) 100 mls @ 2.722 mls/hr IVPB TITR HOANG; 5 MCG/KG/MIN PRN Reason: Protocol Last Admin: 02/09/17 09:59 Dose: Not Given Ampicillin Sodium 1 gm/ Sodium (Chloride) 100 mls @ 200 mls/hr IVPB Q6H-IV [facility] Last Admin: 02/10/17 09:00 Dose: 200 mls/hr Meropenem (Merrem (Restricted To Id) -) 20 mls @ 240 mls/hr IVPUSH BID [facility] Last Admin: 02/10/17 10:57 Dose: 240 mls/hr Amino Acids (Clinimix -) 1,000 mls @ 65 mls/hr IV Q12H [facility] Metoprolol Tartrate (Lopressor -) 50 mg PO BID [facility] Last Admin: 02/10/17 10:56 Dose: 50 mg Pantoprazole Sodium (Protonix Iv) 40 mg IVPUSH DAILY [facility] Last Admin: 02/10/17 10:57 Dose: 40 mg ASSESSMENT AND PLAN: Cholangitis Klebsiella Bacteremia s/p Cholecystostomy placement Severe Sepsis improving Acute Hypoxic Respiratory Failure Acute Kidney Injury Anemia - continue antibiotics per ID - replete lytes - monitor urine output, creatinine - taper FiO2 to keep Spo2 >90% - lighten sedation to optimize mental status - tolerating spontaneous breathing trials - likely attempt extubation in AM - trial of enteral feeds per GI - DVT/GI prophylaxis - continue ICU monitoring critical care time spent in reviewing chart, evaluating patient and formulating plan 35 min
[2017-02-10] MEDS ORDERED: POTASSIUM CHLORIDE ORAL LIQUID 20 MEQ/15 ML NGT ONE (16:21)
[2017-02-10] MEDS: NAPH,MB-DB/K PH,MBDB POWDER PACKET NGT SCH ×2 (16:54→21:08)
[2017-02-10] MEDS: CHLORHEXIDINE GLUCONATE 4% CLEANSER FOR DECOLONIZATION TP SCH (21:07)
[2017-02-10] MEDS: ARTIFICIAL TEARS (POLYVINYL ALCOHOL 1.4%) OPTH DROPS OU SCH (21:09)
[2017-02-11] MEDS: AMINO ACIDS 4.25%/D5W 1,000 ML IV SCH ×2 (01:14→12:45)
[2017-02-11] MEDS: AMPICILLIN - 1 GM in SODIUM CHLORIDE 100 ML IVPB SCH ×4 (04:01→21:24)
[2017-02-11] MEDS: HEPARIN NA (PORCINE) 5,000 UNITS/ML 1ML VIAL SQ SCH ×3 (06:38→21:25)
[2017-02-11 06:41] LABS: BASOPHIL 0.3 % (0-2.0); EOSINOPHIL 2.4 % (0-4.5); MCH 32.7 pg (25.7-33.7); MCHC 34.8 g/dl (32.0-35.9); MEAN PLT VOLUME 9.7 fl (7.5-11.1); PLATELET COUNT 226 K/MM3 (134-434); RDW 16.7 % (11.9-15.9); WHITE BLOOD COUNT 9.3 K/mm3 (4.0-10.0)
[2017-02-11 07:30] LABS: ALBUMIN 1.7 g/dl (3.4-5.0); ALK PHOS 138 U/L (45-117); ANION GAP 10 (8-16); BILIRUBIN,TOTAL 2.5 mg/dL (0.2-1.0); CO2 22 mmol/L (21-32); CREATININE 0.8 mg/dL (0.7-1.3); GLUCOSE,RANDOM 107 mg/dL (74-106); PHOSPHOROUS 2.3 mg/dL (2.5-4.9); SGOT/AST 34 U/L (15-37); SGPT/ALT 46 U/L (12-78); TOT PROT 5.2 g/dl (6.4-8.2)
[2017-02-11] MEDS ORDERED: PT OWN MED DRAWER 7, Y5N ONE ×2 (07:53→13:46)
[2017-02-11 08:31] LABS: CALCIUM 6.7 mg/dL (8.5-10.1)
--- NOTE | 2017-02-11 08:49 | PN ---
Progress Note, Physician Chief Complaint: remains intubated - Current Medication List Current Medications: Active Medications Artificial Tears (Artificial Tears) 1 drop OU HS [facility] Last Admin: 02/10/17 21:09 Dose: 1 drop Chlorhexidine Gluconate (Hibiclens For Decolonization -) 1 applic TP HS [facility] Last Admin: 02/10/17 21:07 Dose: 1 applic Heparin Sodium (Porcine) (Heparin -) 5,000 unit SQ TID [facility] Last Admin: 02/11/17 06:38 Dose: 5,000 unit Propofol (Diprivan -) 100 mls @ 2.722 mls/hr IVPB TITR HOANG; 5 MCG/KG/MIN PRN Reason: Protocol Last Admin: 02/09/17 09:59 Dose: Not Given Ampicillin Sodium 1 gm/ Sodium (Chloride) 100 mls @ 200 mls/hr IVPB Q6H-IV [facility] Last Admin: 02/11/17 04:01 Dose: 200 mls/hr Meropenem (Merrem (Restricted To Id) -) 20 mls @ 240 mls/hr IVPUSH BID [facility] Last Admin: 02/10/17 21:08 Dose: 240 mls/hr Amino Acids (Clinimix -) 1,000 mls @ 65 mls/hr IV Q12H [facility] Last Admin: 02/11/17 01:14 Dose: 65 mls/hr Metoprolol Tartrate (Lopressor -) 50 mg PO BID [facility] Last Admin: 02/10/17 21:07 Dose: 50 mg Pantoprazole Sodium (Protonix Iv) 40 mg IVPUSH DAILY [facility] Last Admin: 02/10/17 10:57 Dose: 40 mg - Objective Vital Signs: Vital Signs Temperature 99.5 F 02/11/17 08:00 Pulse Rate 72 02/11/17 08:00 Respiratory Rate 16 02/11/17 08:00 Blood Pressure 140/52 02/11/17 08:00 O2 Sat by Pulse Oximetry (%) 100 02/10/17 20:52 Constitutional: Yes: Other (+ ETT) Cardiovascular: Yes: Regular Rate and Rhythm Respiratory: Yes: Other (=breath sounds b/l) Gastrointestinal: Yes: Soft Edema: No Labs: CBC, BMP 02/11/17 06:10 02/11/17 06:10 INR, PTT INR 1.34 (0.82-1.09) H 02/03/17 06:00 Laboratory Tests 02/09/17 02/10/17 05:28 07:20 WBC Pending Hgb Pending Plt Count Pending Sodium 143 Potassium 3.9 Creatinine 1.0 Magnesium 1.9 Total Bilirubin 3.4 H AST 28 ALT 57 - ....Imaging EKG: Image Reviewed (TELE: Sinus tach, VPCs) Assessment/Plan Assessment/Plan Sepsis, Klebsiella in blood, Ecoli/enterococcus from cholecystostomy Choledocholithiasis, s/p perc. cholecystostomy ASHD Acute respiratory failure s/p intubation HTN REC: -CK/Troponin mildly elevated in setting of septic shock and BERTA -Probable chronic underlying CAD based on EKG but this does not appear to be ACS /NSTEMI -Echo showed normal LV systolic function -Frequent PVCs, short episodes of NSVT, brief episodes PSVT on tele, improved with bblocker -Continue beta zachary -cont supportive/ICU care
--- NOTE | 2017-02-11 10:15 | PN ---
Progress Note, Physician Chief Complaint: Extubated awake but gets sleepy no discomfort - Current Medication List Current Medications: Active Medications Artificial Tears (Artificial Tears) 1 drop OU HS [facility] Last Admin: 02/10/17 21:09 Dose: 1 drop Chlorhexidine Gluconate (Hibiclens For Decolonization -) 1 applic TP HS [facility] Last Admin: 02/10/17 21:07 Dose: 1 applic Heparin Sodium (Porcine) (Heparin -) 5,000 unit SQ TID [facility] Last Admin: 02/11/17 06:38 Dose: 5,000 unit Propofol (Diprivan -) 100 mls @ 2.722 mls/hr IVPB TITR HOANG; 5 MCG/KG/MIN PRN Reason: Protocol Last Admin: 02/09/17 09:59 Dose: Not Given Ampicillin Sodium 1 gm/ Sodium (Chloride) 100 mls @ 200 mls/hr IVPB Q6H-IV [facility] Last Admin: 02/11/17 04:01 Dose: 200 mls/hr Meropenem (Merrem (Restricted To Id) -) 20 mls @ 240 mls/hr IVPUSH BID [facility] Last Admin: 02/10/17 21:08 Dose: 240 mls/hr Amino Acids (Clinimix -) 1,000 mls @ 65 mls/hr IV Q12H [facility] Last Admin: 02/11/17 01:14 Dose: 65 mls/hr Metoprolol Tartrate (Lopressor -) 50 mg PO BID [facility] Last Admin: 02/10/17 21:07 Dose: 50 mg Pantoprazole Sodium (Protonix Iv) 40 mg IVPUSH DAILY [facility] Last Admin: 02/10/17 10:57 Dose: 40 mg - Objective Vital Signs: Vital Signs Temperature 99.5 F 02/11/17 08:00 Pulse Rate 72 02/11/17 08:00 Respiratory Rate 16 02/11/17 08:00 Blood Pressure 140/52 02/11/17 08:00 O2 Sat by Pulse Oximetry (%) 97 02/11/17 08:00 Constitutional: Yes: No Distress, Calm Cardiovascular: Yes: Regular Rate and Rhythm Respiratory: Yes: Diminished Gastrointestinal: Yes: Normal Bowel Sounds, Soft, Other (CARMELITA drain). No: Distention, Tenderness Edema: Yes Edema: LLE: Trace, RLE: Trace Labs: CBC, BMP 02/11/17 06:10 02/11/17 06:10 INR, PTT INR 1.34 (0.82-1.09) H 02/03/17 06:00 Problem List - Problems (1) Severe sepsis Code(s): A41.9 - SEPSIS, UNSPECIFIED ORGANISM; R65.20 - SEVERE SEPSIS WITHOUT SEPTIC SHOCK (2) Elevated liver function tests Code(s): R79.89 - OTHER SPECIFIED ABNORMAL FINDINGS OF BLOOD CHEMISTRY (3) Cholangitis due to bile duct calculus with obstruction Code(s): K80.31 - CALCULUS OF BILE DUCT W CHOLANGITIS, UNSP, WITH OBSTRUCTION (4) Choledocholithiasis with obstruction Code(s): K80.51 - CALCULUS OF BILE DUCT W/O CHOLANGITIS OR CHOLECYST W OBST (5) Dementia with behavioral disturbance Code(s): F03.91 - UNSPECIFIED DEMENTIA WITH BEHAVIORAL DISTURBANCE Qualifiers: Dementia type: unspecified type Qualified Code(s): F03.91 - Unspecified dementia with behavioral disturbance (6) Calculus of gallbladder 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 Code(s): K80.67 - CALCULUS OF GB AND BILE DUCT W AC AND CHR CHOLECYST W OBST (7) Hypertension Code(s): I10 - ESSENTIAL (PRIMARY) HYPERTENSION Qualifiers: Hypertension type: essential hypertension Qualified Code(s): I10 - Essential (primary) hypertension Assessment/Plan PLAN s/p CARMELITA drain IV antibiotics, repeat blood cultures negative extubated will need swallow evaluation IV fluids LFTs decreasing renal function improving spoke with ID yesterday Spoke with son yesterday DVT prophylaxis-- SCD
[2017-02-11] MEDS: MEROPENEM 1 GM PUSH 20 ML IVPUSH SCH ×2 (10:22→21:24)
[2017-02-11] MEDS: PANTOPRAZOLE SODIUM 40 MG VIAL IVPUSH SCH (10:22)
[2017-02-11] MEDS: METOPROLOL TARTRATE 50 MG TABLET (FP) PO SCH (10:28)
[2017-02-11] MEDS: METOPROLOL TARTRATE 5 MG/5 ML VIAL IVPUSH PRN (10:47)
--- NOTE | 2017-02-11 10:53 | CONSULT ---
Admitting History and Physical - Primary Care Physician PCP: Gina Leone - Admission History of Present Illness: Pt is an 86 y/o M w/sig PMH of Alzheimer's, Vitamin B12 deficiency, HTN, Depression, Bipolar, Dementia, Osteoarthritis who presented from [facility] for fever of 104 F in [place]. Found to have choledocholithiasis w/cholecystitis and had percutaneous cholecystostomy placed on 02/02 as pt was not surgically candidate for cholecystectomy. Pt had rapid response and was found to have worsening renal function requiring intubation on 02/03/17. Pt extubated today. Pt with h/o dementia/confused at baseline, was on a regular diet and thin liquids at [facility]. Per pt's , he was verbal premorbidly. History Source: Family Member, Medical Record Limitations to Obtaining History: Clinical Condition, Dementia, Language Barrier - Past Medical History INFORMATICS ANALYST: Yes: Dementia Cardiovascular: Yes: HTN Hepatobiliary: Yes: Cholelithiasis, Cholecystitis (? 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) - Past Surgical History Past Surgical History: Yes: Upper Endoscopy (with ERCP and stone extraction 2015 [place] (too sick for cholecystectomy)) - Advance Directives Advance Directives: Yes: Health Care Proxy - Smoking History Smoking history: Former smoker Have you smoked in the past 12 months: No If you are a former smoker, when did you quit?: 30 YRS AGO - 1-2ppd x 20-30 yrs - Alcohol/Substance Use Hx Alcohol Use: No History of Substance Use: reports: None - Social History ADL: Support Services History - Admission Reason For Visit: SEVERE SEPSIS - Diagnostics X-ray: Report Reviewed - General Mental Status: Confused, Lethargic Attention: Distractible, Severe Impairment Ability to Follow Directions: Poor Head/Neck Control: Needs Assist - Hearing Hearing: Normal Speech Evaluation - Communication Primary Language: AUSTRALIAN Communication: Yes: Non-Communicable (Vocalizing. Unintelligible, vocal wetness , cough.) - Speech Production Able to Make Needs Known: Yes: Severely Impaired Intelligibility: Yes: Severely Impaired - Speech Characteristics Voice Loudness: Normal Voice Pitch: Yes: Mildly Low Voice Phonatory-based Quality: Yes: Hoarse, Dysphonia, Vocal Wetness Speech Pattern: Impaired Articulation: Yes: Imprecise - Language/Auditory Comprehension Observation: Able to respond to yes/no queries: No - Language/Verbal Expression Able to Respond to Simple Queries: Yes: Severely Impaired Able to Communicate Wants and Needs: Yes: Severely Impaired Functional Communication Status: Yes: Severely Impaired - Swallow Evaluation/Bedside Assessment Current Nutritional Intake: NPO Facial Symmetry at Rest: Symmetrical Laryngeal Elevation: Impaired Laryngeal Movement: Reduced Excursion, Labored,delay initiation, Reduced Velocity, Other (rare initiation with vocal wetness) Timing of Swallow: Absent (rare) Coughing/Throat Clear: Yes Change in Voice: Yes (wet) Recommendations - Speech Evaluation, Impression/Plan Impression: Too lethargic. Arousable briefly. Rare Swallow initiation with vocal wetness. Swallow is not functional at this time. Pt's wants him to eat as soon as he is able. - Dysphagia Impressions/Plan Swallowing Skills: Impaired Dysphagia Impressions: Too Lethargic to Assess, Suspect Aspiration *Silent aspiration: cannot be R/O at bedside Dysphagia Treatment Plan: Other (Maintain elevation of HOB. Suction PRN. Mouth care. To reassess when more alert.) - Recommendations Diet Consistency: NPO Liquids: NPO
--- NOTE | 2017-02-11 11:56 | PN ---
Progress Note, Physician History of Present Illness: Extubated. No events. at bedside. - Current Medication List Current Medications: Active Medications Artificial Tears (Artificial Tears) 1 drop OU HS [facility] Last Admin: 02/10/17 21:09 Dose: 1 drop Chlorhexidine Gluconate (Hibiclens For Decolonization -) 1 applic TP HS [facility] Last Admin: 02/10/17 21:07 Dose: 1 applic Heparin Sodium (Porcine) (Heparin -) 5,000 unit SQ TID [facility] Last Admin: 02/11/17 06:38 Dose: 5,000 unit Propofol (Diprivan -) 100 mls @ 2.722 mls/hr IVPB TITR [facility]; 5 MCG/KG/MIN PRN Reason: Protocol Last Admin: 02/09/17 09:59 Dose: Not Given Ampicillin Sodium 1 gm/ Sodium (Chloride) 100 mls @ 200 mls/hr IVPB Q6H-IV [facility] Last Admin: 02/11/17 09:00 Dose: 200 mls/hr Meropenem (Merrem (Restricted To Id) -) 20 mls @ 240 mls/hr IVPUSH BID [facility] Last Admin: 02/11/17 10:22 Dose: 240 mls/hr Amino Acids (Clinimix -) 1,000 mls @ 65 mls/hr IV Q12H [facility] Last Admin: 02/11/17 01:14 Dose: 65 mls/hr Metoprolol Tartrate (Lopressor -) 50 mg PO BID [facility] Last Admin: 02/11/17 10:28 Dose: Not Given Metoprolol Tartrate (Lopressor Injection -) 5 mg IVPUSH Q4H PRN PRN Reason: HYPERTENSION Last Admin: 02/11/17 10:47 Dose: 5 mg Pantoprazole Sodium (Protonix Iv) 40 mg IVPUSH DAILY [facility] Last Admin: 02/11/17 10:22 Dose: 40 mg - Objective Vital Signs: Vital Signs Temperature 99.1 F 02/11/17 10:00 Pulse Rate 74 02/11/17 10:47 Respiratory Rate 22 02/11/17 10:00 Blood Pressure 172/68 02/11/17 10:47 O2 Sat by Pulse Oximetry (%) 100 02/11/17 09:45 Constitutional: Yes: No Distress, Calm Eyes: Yes: Conjunctiva Clear Gastrointestinal: Yes: Soft, Distention, Other (CARMELITA - bile). No: Tenderness Neurological: Yes: Other (arousable). No: Alert Labs: CBC, BMP 02/11/17 06:10 02/11/17 06:10 INR, PTT INR 1.34 (0.82-1.09) H 02/03/17 06:00 CBCD WBC 9.3 K/mm3 (4.0-10.0) 02/11/17 06:10 RBC 2.64 M/mm3 (4.00-5.60) L 02/11/17 06:10 Hgb 8.7 GM/dL (11.7-16.9) L 02/11/17 06:10 Hct 24.8 % (35.4-49) L 02/11/17 06:10 MCV 94.0 fl (80-96) 02/11/17 06:10 MCHC 34.8 g/dl (32.0-35.9) 02/11/17 06:10 RDW 16.7 % (11.9-15.9) H 02/11/17 06:10 Plt Count 226 K/MM3 (134-434) 02/11/17 06:10 MPV 9.7 fl (7.5-11.1) 02/11/17 06:10 CMP Sodium 141 mmol/L (136-145) 02/11/17 06:10 Potassium 4.1 mmol/L (3.5-5.1) 02/11/17 06:10 Chloride 109 mmol/L (98-107) H 02/11/17 06:10 Carbon Dioxide 22 mmol/L (21-32) 02/11/17 06:10 Anion Gap 10 (8-16) 02/11/17 06:10 BUN 39 mg/dL (7-18) H D 02/11/17 06:10 Creatinine 0.8 mg/dL (0.7-1.3) 02/11/17 06:10 Creat Clearance w eGFR > 60 (>60) 02/11/17 06:10 Calcium 6.7 mg/dL (8.5-10.1) L* 02/11/17 06:10 Total Bilirubin 2.5 mg/dL (0.2-1.0) H D 02/11/17 06:10 AST 34 U/L (15-37) 02/11/17 06:10 ALT 46 U/L (12-78) 02/11/17 06:10 Alkaline Phosphatase 138 U/L (45-117) H 02/11/17 06:10 Total Protein 5.2 g/dl (6.4-8.2) L 02/11/17 06:10 Albumin 1.7 g/dl (3.4-5.0) L 02/11/17 06:10 Problem List - Problems (1) Cholangitis due to bile duct calculus with obstruction Code(s): K80.31 - CALCULUS OF BILE DUCT W CHOLANGITIS, UNSP, WITH OBSTRUCTION (2) Cholelithiasis Code(s): K80.20 - CALCULUS OF GALLBLADDER W/O CHOLECYSTITIS W/O OBSTRUCTION (3) Choledocholithiasis with obstruction Code(s): K80.51 - CALCULUS OF BILE DUCT W/O CHOLANGITIS OR CHOLECYST W OBST Assessment/Plan Cholangitis and acute blood loss anemia in a debilitated patient. . Liver chemistry, bili and ALP are trending down. T. bili remain mildly elevated. Nutrition, speech and swallow assessments noted. NPO, aspiration precautions Supportive care as per ICU team
--- NOTE | 2017-02-11 13:42 | PN ---
Physical Exam: SUBJECTIVE: Patient seen and examined OBJECTIVE: Vital Signs Period Temp Pulse Resp BP Sys/Hernandez Pulse Ox Last 24 Hr 99.1 F-100.1 F 57-85 14-24 105-172/41-68 97-100 GENERAL: The patient is awake, alert, and fully oriented, in no acute distress. HEAD: Normal with no signs of trauma. EYES: PERRL, extraocular movements intact, sclera anicteric, conjunctiva clear. No ptosis. ENT: Ears normal, nares patent, oropharynx clear without exudates, moist mucous membranes. NECK: Trachea midline, full range of motion, supple. LUNGS: Breath sounds equal, clear to auscultation bilaterally, no wheezes, no crackles, no accessory muscle use. HEART: Regular rate and rhythm, S1, S2 without murmur, rub or gallop. ABDOMEN: Soft, nontender, nondistended, normoactive bowel sounds, no guarding, no rebound, no hepatosplenomegaly, no masses. EXTREMITIES: 2+ pulses, warm, well-perfused, no edema. NEUROLOGICAL: Cranial nerves II through XII grossly intact. Normal speech, gait not observed. PSYCH: Normal mood, normal affect. SKIN: Warm, dry, normal turgor, no rashes or lesions noted Laboratory Results - last 24 hr 02/11/17 02/11/17 06:10 06:10 WBC 9.3 RBC 2.64 L Hgb 8.7 L Hct 24.8 L MCV 94.0 MCH 32.7 MCHC 34.8 RDW 16.7 H Plt Count 226 MPV 9.7 Neutrophils % 76.0 Lymphocytes % 13.6 D Monocytes % 7.7 Eosinophils % 2.4 Basophils % 0.3 Sodium 141 Potassium 4.1 Chloride 109 H Carbon Dioxide 22 Anion Gap 10 BUN 39 H D Creatinine 0.8 Creat Clearance w eGFR > 60 Random Glucose 107 H Calcium 6.7 L* Phosphorus 2.3 L D Magnesium 2.0 Total Bilirubin 2.5 H D AST 34 ALT 46 Alkaline Phosphatase 138 H Total Protein 5.2 L Albumin 1.7 L Active Medications Generic Name Dose Route Start Last Admin Trade Name Freq PRN Reason Stop Dose Admin Artificial Tears 1 drop 02/07/17 22:00 02/10/17 21:09 Artificial Tears OU 1 drop HS [facility] Administration Chlorhexidine Gluconate 1 applic 02/03/17 22:00 02/10/17 21:07 Hibiclens For Decolonization - TP 1 applic HS [facility] Administration Heparin Sodium (Porcine) 5,000 unit 02/08/17 22:00 02/11/17 13:39 Heparin - SQ 5,000 unit TID [facility] Administration Propofol 100 mls @ 2.722 mls/hr 02/03/17 09:00 02/09/17 09:59 Diprivan - IVPB Not Given TITR [facility] Protocol 5 MCG/KG/MIN Ampicillin Sodium 1 gm/ Sodium 100 mls @ 200 mls/hr 02/05/17 21:00 02/11/17 09:00 Chloride IVPB 200 mls/hr Q6H-IV [facility] Administration Meropenem 20 mls @ 240 mls/hr 02/06/17 05:00 02/11/17 10:22 Merrem (Restricted To Id) - IVPUSH 240 mls/hr BID [facility] Administration Amino Acids 1,000 mls @ 65 mls/hr 02/10/17 12:45 02/11/17 12:45 Clinimix - IV 65 mls/hr Q12H [facility] Administration Metoprolol Tartrate 50 mg 02/10/17 09:00 02/11/17 10:28 Lopressor - PO Not Given BID [facility]ANG Metoprolol Tartrate 5 mg 02/11/17 10:20 02/11/17 10:47 Lopressor Injection - IVPUSH 5 mg Q4H PRN Administration HYPERTENSION Pantoprazole Sodium 40 mg 02/03/17 10:00 02/11/17 10:22 Protonix Iv IVPUSH 40 mg DAILY [facility] Administration ASSESSMENT/PLAN: 86 year old male with cholangitis complicated by severe sepsis secondary to klebsiella bacteremia. #Neuro: -lethargic; slightly arousable; eye opening -slight improvement form yesterday; -baseline dementia -off sedation -head CT negative for acute pathology #respiratory: -acute hypoxic respiratory failure; extubated this am; now on NC sating >95% -taper fio2 keep >90% #cardiovascular: -troponin elevated on admission most likely secondary to sepsis/JUAN J: resolved -echo showing normal LV systolic function -episodes of PVCs; -HTN: metoprolol 50mg po bid #GI: -cholangitis with choledolithiasis s/p cholecystostomy placement -IR consulted -LFTS improving; alk phos slightly elevated -feeds osmolite restarted -swallow eval -possible plan for peg tube -GI appreciated #ID: -Sepsis sec to klebsiella bacteremia; cont ampicillin and meropenam as per ID -cont IV antibiotics -ID following #Renal: -juan j most likely to sepsis -IV hydration -trend Cr, I/O -renal following #hematology: -anemia stable -trend H/H #hypokalemia: resolved #hypomagnesemia: resolved #hypophoshatemia: replace VTE: heparin sq GI proph: protonix Disposition: cont ICU monitoring; palliative care consult Problem List - Problems (1) Severe sepsis Code(s): A41.9 - SEPSIS, UNSPECIFIED ORGANISM; R65.20 - SEVERE SEPSIS WITHOUT SEPTIC SHOCK (2) Elevated liver function tests Code(s): R79.89 - OTHER SPECIFIED ABNORMAL FINDINGS OF BLOOD CHEMISTRY (3) Cholangitis due to bile duct calculus with obstruction Code(s): K80.31 - CALCULUS OF BILE DUCT W CHOLANGITIS, UNSP, WITH OBSTRUCTION (4) Cholelithiasis Code(s): K80.20 - CALCULUS OF GALLBLADDER W/O CHOLECYSTITIS W/O OBSTRUCTION (5) Choledocholithiasis with obstruction Code(s): K80.51 - CALCULUS OF BILE DUCT W/O CHOLANGITIS OR CHOLECYST W OBST (6) Dementia with behavioral disturbance Code(s): F03.91 - UNSPECIFIED DEMENTIA WITH BEHAVIORAL DISTURBANCE Qualifiers: Dementia type: unspecified type Qualified Code(s): F03.91 - Unspecified dementia with behavioral disturbance (7) Calculus of gallbladder 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 Code(s): K80.67 - CALCULUS OF GB AND BILE DUCT W AC AND CHR CHOLECYST W OBST (8) Macular degeneration, age related Code(s): H35.30 - UNSPECIFIED MACULAR DEGENERATION (9) Hypertension Code(s): I10 - ESSENTIAL (PRIMARY) HYPERTENSION Qualifiers: Hypertension type: essential hypertension Qualified Code(s): I10 - Essential (primary) hypertension (10) Klebsiella pneumoniae sepsis Code(s): A41.4 - SEPSIS DUE TO ANAEROBES (11) Sepsis due to Gram-negative organism with acute respiratory failure Code(s): A41.50 - GRAM-NEGATIVE SEPSIS, UNSPECIFIED; R65.20 - SEVERE SEPSIS WITHOUT SEPTIC SHOCK; J96.00 - ACUTE RESPIRATORY FAILURE, UNSP W HYPOXIA OR HYPERCAPNIA (12) Acute cholangitis due to calculus of bile duct with obstruction Code(s): K80.37 - CALCULUS OF BILE DUCT W ACUTE AND CHRONIC CHOLANGITIS W OBST (13) JUAN J (acute kidney injury) Code(s): N17.9 - ACUTE KIDNEY FAILURE, UNSPECIFIED Visit type - Emergency Visit Emergency Visit: Yes ED Registration Date: 02/01/17 Care time: The patient presented to the Emergency Department on the above date and was hospitalized for further evaluation of their emergent condition. - New Patient This patient is new to me today: No - Critical Care Critical Care patient: Yes Total Critical Care Time (in minutes): 35 Critical Care Statement: The care of this patient involved high complexity decision making to prevent further life threatening deterioration of the patient 's condition and/or to evaluate & treat vital organ system(s) failure or risk of failure.
[2017-02-11] MEDS ORDERED: ALBUTEROL SO4 2.5/IPRATROPIUM 0.5 INH SOL 3 ML VIAL.NEB. NEB ONE ×2 (13:58→14:00)
--- NOTE | 2017-02-11 14:03 | PN ---
Teaching Attending Note Name of Resident: Caitlin Chow ATTENDING PHYSICIAN STATEMENT I saw and evaluated the patient. I reviewed the resident's note and discussed the case with the resident. I agree with the resident's findings and plan as documented. SUBJECTIVE: Pt seen and examined in the ICU. Remained intubated, poorly responsive but more arousable. Good cough and gag reflex. Tolerated CPAP/PS 5/5 and subsequently extubated during rounds. OBJECTIVE: Last Vital Signs Temp Pulse Resp BP Pulse Ox 99.1 F 74 21 160/63 100 02/11/17 12:00 02/11/17 12:00 02/11/17 12:00 02/11/17 12:00 02/11/17 09:45 Intake & Output 02/08/17 02/09/17 02/10/17 02/11/17 23:59 23:59 23:59 23:59 Intake Total 2728 2510 1590 1120 Output Total 1685 1450 1470 1160 Balance 1043 1060 120 -40 Weight 173 lb 9.6 oz 176 lb 4 oz 174 lb 5 oz 176 lb Gen: extubated, mildly tachypneic Heart: RRR Lung: scattered rhonchi Abd: soft, nontender Ext: no edema CBC, BMP 02/11/17 06:10 02/11/17 06:10 Active Medications Albuterol/Ipratropium (Duoneb -) 1 amp NEB Q4H PRN PRN Reason: SHORTNESS OF BREATH Artificial Tears (Artificial Tears) 1 drop OU HS [facility] Last Admin: 02/10/17 21:09 Dose: 1 drop Chlorhexidine Gluconate (Hibiclens For Decolonization -) 1 applic TP HS [facility] Last Admin: 02/10/17 21:07 Dose: 1 applic Heparin Sodium (Porcine) (Heparin -) 5,000 unit SQ TID [facility] Last Admin: 02/11/17 13:39 Dose: 5,000 unit Ampicillin Sodium 1 gm/ Sodium (Chloride) 100 mls @ 200 mls/hr IVPB Q6H-IV [facility] Last Admin: 02/11/17 14:01 Dose: 200 mls/hr Meropenem (Merrem (Restricted To Id) -) 20 mls @ 240 mls/hr IVPUSH BID [facility] Last Admin: 02/11/17 10:22 Dose: 240 mls/hr Amino Acids (Clinimix -) 1,000 mls @ 65 mls/hr IV Q12H [facility] Last Admin: 02/11/17 12:45 Dose: 65 mls/hr Metoprolol Tartrate (Lopressor -) 50 mg PO BID [facility] Last Admin: 02/11/17 10:28 Dose: Not Given Metoprolol Tartrate (Lopressor Injection -) 5 mg IVPUSH Q4H PRN PRN Reason: HYPERTENSION Last Admin: 02/11/17 10:47 Dose: 5 mg Pantoprazole Sodium (Protonix Iv) 40 mg IVPUSH DAILY [facility] Last Admin: 02/11/17 10:22 Dose: 40 mg ASSESSMENT AND PLAN: Cholangitis Klebsiella Bacteremia s/p Cholecystostomy placement Severe Sepsis improving Acute Hypoxic Respiratory Failure improving Acute Kidney Injury Anemia - pt extubated - continue antibiotics per ID - replete lytes - monitor urine output, creatinine - taper FiO2 to keep Spo2 >90% - PO per GI - aspiration precautions - DVT/GI prophylaxis - continue ICU monitoring, likely can transfer in AM critical care time spent in reviewing chart, evaluating patient and formulating plan 35 min
--- NOTE | 2017-02-11 16:47 | PN ---
Progress Note, Physician History of Present Illness: Pt seen and examined at bedside. He remains in the ICU. Pt is now extubated. - Current Medication List Current Medications: Active Medications Albuterol/Ipratropium (Duoneb -) 1 amp NEB Q4H PRN PRN Reason: SHORTNESS OF BREATH Artificial Tears (Artificial Tears) 1 drop OU HS [facility] Last Admin: 02/10/17 21:09 Dose: 1 drop Chlorhexidine Gluconate (Hibiclens For Decolonization -) 1 applic TP HS [facility] Last Admin: 02/10/17 21:07 Dose: 1 applic Heparin Sodium (Porcine) (Heparin -) 5,000 unit SQ TID [facility] Last Admin: 02/11/17 13:39 Dose: 5,000 unit Ampicillin Sodium 1 gm/ Sodium (Chloride) 100 mls @ 200 mls/hr IVPB Q6H-IV [facility] Last Admin: 02/11/17 14:01 Dose: 200 mls/hr Meropenem (Merrem (Restricted To Id) -) 20 mls @ 240 mls/hr IVPUSH BID [facility] Last Admin: 02/11/17 10:22 Dose: 240 mls/hr Amino Acids (Clinimix -) 1,000 mls @ 65 mls/hr IV Q12H [facility] Last Admin: 02/11/17 12:45 Dose: 65 mls/hr Metoprolol Tartrate (Lopressor -) 50 mg PO BID [facility] Last Admin: 02/11/17 10:28 Dose: Not Given Metoprolol Tartrate (Lopressor Injection -) 5 mg IVPUSH Q4H PRN PRN Reason: HYPERTENSION Last Admin: 02/11/17 10:47 Dose: 5 mg Pantoprazole Sodium (Protonix Iv) 40 mg IVPUSH DAILY [facility] Last Admin: 02/11/17 10:22 Dose: 40 mg - Objective Vital Signs: Vital Signs Temperature 99.6 F 02/11/17 16:00 Pulse Rate 71 02/11/17 16:00 Respiratory Rate 20 02/11/17 16:00 Blood Pressure 140/59 02/11/17 16:00 O2 Sat by Pulse Oximetry (%) 100 02/11/17 09:45 Constitutional: Yes: Calm Eyes: Yes: Conjunctiva Clear HENT: Yes: Atraumatic Cardiovascular: Yes: S1, S2 Respiratory: Yes: On Nasal O2, Rhonchi Gastrointestinal: Yes: Soft, Other (cholecystostomy tube) Genitourinary: Yes: Bar Present Musculoskeletal: Yes: Muscle Weakness Edema: No Neurological: Yes: Other (awake) Labs: CBC, BMP 02/11/17 06:10 02/11/17 06:10 INR, PTT INR 1.34 (0.82-1.09) H 02/03/17 06:00 - ....Imaging Chest X-ray: Report Reviewed Problem List - Problems (1) Hypertension Code(s): I10 - ESSENTIAL (PRIMARY) HYPERTENSION Qualifiers: Hypertension type: essential hypertension Qualified Code(s): I10 - Essential (primary) hypertension (2) Acute cholangitis due to calculus of bile duct with obstruction Code(s): K80.37 - CALCULUS OF BILE DUCT W ACUTE AND CHRONIC CHOLANGITIS W OBST (3) JUAN J (acute kidney injury) Code(s): N17.9 - ACUTE KIDNEY FAILURE, UNSPECIFIED Assessment/Plan Current Medications Generic Name Dose Route Start Last Admin Trade Name Freq PRN Reason Stop Dose Admin Albuterol/Ipratropium 1 amp 02/11/17 13:59 Duoneb - NEB Q4H PRN SHORTNESS OF BREATH Artificial Tears 1 drop 02/07/17 22:00 02/10/17 21:09 Artificial Tears OU 1 drop HS [facility] Administration Chlorhexidine Gluconate 1 applic 02/03/17 22:00 02/10/17 21:07 Hibiclens For Decolonization - TP 1 applic HS [facility] Administration Heparin Sodium (Porcine) 5,000 unit 02/08/17 22:00 02/11/17 13:39 Heparin - SQ 5,000 unit TID [facility] Administration Ampicillin Sodium 1 gm/ Sodium 100 mls @ 200 mls/hr 02/05/17 21:00 02/11/17 14:01 Chloride IVPB 200 mls/hr Q6H-IV [facility] Administration Meropenem 20 mls @ 240 mls/hr 02/06/17 05:00 02/11/17 10:22 Merrem (Restricted To Id) - IVPUSH 240 mls/hr BID [facility] Administration Amino Acids 1,000 mls @ 65 mls/hr 02/10/17 12:45 02/11/17 12:45 Clinimix - IV 65 mls/hr Q12H [facility] Administration Metoprolol Tartrate 50 mg 02/10/17 09:00 02/11/17 10:28 Lopressor - PO Not Given BID [facility]ANG Metoprolol Tartrate 5 mg 02/11/17 10:20 02/11/17 10:47 Lopressor Injection - IVPUSH 5 mg Q4H PRN Administration HYPERTENSION Pantoprazole Sodium 40 mg 02/03/17 10:00 02/11/17 10:22 Protonix Iv IVPUSH 40 mg DAILY [facility] Administration labs and meds reviewed Impression 1. JUAN J 2. acute resp failure 3. sepsis 4. bacteremia 5. alzheimers 6. anemia 7. choledocholithiasis 8. hypernatremia 9. hypokalemia Plan - renal function is stable - sodium is stable - cont clinimix for now - will need speech and swallow eval - monitor lytes - monitor renal function - monitor output from drain - will follow - surgery follow up - cont ICU care Dr Haynes
--- NOTE | 2017-02-11 17:48 | PN ---
Progress Note, Physician History of Present Illness: stable extubated off of vent more responsive - Current Medication List Current Medications: Active Medications Albuterol/Ipratropium (Duoneb -) 1 amp NEB Q4H PRN PRN Reason: SHORTNESS OF BREATH Artificial Tears (Artificial Tears) 1 drop OU HS [facility] Last Admin: 02/10/17 21:09 Dose: 1 drop Chlorhexidine Gluconate (Hibiclens For Decolonization -) 1 applic TP HS [facility] Last Admin: 02/10/17 21:07 Dose: 1 applic Heparin Sodium (Porcine) (Heparin -) 5,000 unit SQ TID [facility] Last Admin: 02/11/17 13:39 Dose: 5,000 unit Ampicillin Sodium 1 gm/ Sodium (Chloride) 100 mls @ 200 mls/hr IVPB Q6H-IV [facility] Last Admin: 02/11/17 14:01 Dose: 200 mls/hr Meropenem (Merrem (Restricted To Id) -) 20 mls @ 240 mls/hr IVPUSH BID [facility] Last Admin: 02/11/17 10:22 Dose: 240 mls/hr Amino Acids (Clinimix -) 1,000 mls @ 65 mls/hr IV Q12H [facility] Last Admin: 02/11/17 12:45 Dose: 65 mls/hr Metoprolol Tartrate (Lopressor -) 50 mg PO BID [facility] Last Admin: 02/11/17 10:28 Dose: Not Given Metoprolol Tartrate (Lopressor Injection -) 5 mg IVPUSH Q4H PRN PRN Reason: HYPERTENSION Last Admin: 02/11/17 10:47 Dose: 5 mg Pantoprazole Sodium (Protonix Iv) 40 mg IVPUSH DAILY [facility] Last Admin: 02/11/17 10:22 Dose: 40 mg - Objective Vital Signs: Vital Signs Temperature 99.6 F 02/11/17 16:00 Pulse Rate 71 02/11/17 16:00 Respiratory Rate 20 02/11/17 16:00 Blood Pressure 140/59 02/11/17 16:00 O2 Sat by Pulse Oximetry (%) 100 02/11/17 09:45 Constitutional: Yes: Other Cardiovascular: Yes: Regular Rate and Rhythm Respiratory: Yes: Regular, Poor Air Entry Gastrointestinal: Yes: Normal Bowel Sounds, Soft, Other (choley tube) Musculoskeletal: Yes: WNL Extremities: Yes: WNL Neurological: Yes: Lethargy, Other Psychiatric: Yes: Other Labs: CBC, BMP 02/11/17 06:10 02/11/17 06:10 INR, PTT INR 1.34 (0.82-1.09) H 02/03/17 06:00 Assessment/Plan Problem List - Problems (1) Calculus of gallbladder 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91 - Unspecified dementia with behavioral disturbance; F03.91 - Unspecified dementia with behavioral disturbance; F03.91 - Unspecified dementia with behavioral disturbance fever 6 gm negative bacteremia cx from the gb seen all cx noted plan t continue abx close watch patient remaining stable hydration rest as per icu more responsive extubated cc time 40 min
[2017-02-11] MEDS: CHLORHEXIDINE GLUCONATE 4% CLEANSER FOR DECOLONIZATION TP SCH (21:25)
[2017-02-11] MEDS: ARTIFICIAL TEARS (POLYVINYL ALCOHOL 1.4%) OPTH DROPS OU SCH (21:25)
[2017-02-12] MEDS: AMINO ACIDS 4.25%/D5W 1,000 ML IV SCH ×2 (02:33→12:45)
[2017-02-12] MEDS: AMPICILLIN - 1 GM in SODIUM CHLORIDE 100 ML IVPB SCH ×4 (02:33→21:52)
[2017-02-12 06:03] LABS: BASOPHIL 0.4 % (0-2.0); EOSINOPHIL 2.1 % (0-4.5); MCH 32.1 pg (25.7-33.7); MCHC 33.8 g/dl (32.0-35.9); MEAN PLT VOLUME 9.4 fl (7.5-11.1); NEUTROPHILS 76.6 % (42.8-82.8); PLATELET COUNT 266 K/MM3 (134-434); RDW 16.3 % (11.9-15.9); WHITE BLOOD COUNT 9.8 K/mm3 (4.0-10.0)
[2017-02-12 06:30] LABS: ALBUMIN 1.8 g/dl (3.4-5.0); ANION GAP 6 (8-16); CALCIUM 7.1 mg/dL (8.5-10.1); CO2 26 mmol/L (21-32); GLUCOSE,RANDOM 109 mg/dL (74-106)
[2017-02-12 06:33] LABS: ALK PHOS 160 U/L (45-117); BILIRUBIN,TOTAL 2.4 mg/dL (0.2-1.0); CREATININE 0.8 mg/dL (0.7-1.3); PHOSPHOROUS 1.9 mg/dL (2.5-4.9); SGOT/AST 38 U/L (15-37); SGPT/ALT 46 U/L (12-78); TOT PROT 5.3 g/dl (6.4-8.2)
[2017-02-12] MEDS: HEPARIN NA (PORCINE) 5,000 UNITS/ML 1ML VIAL SQ SCH ×3 (06:46→21:52)
[2017-02-12] MEDS ORDERED: PT OWN MED DRAWER 7, Y5N ONE (07:27)
[2017-02-12] MEDS: METOPROLOL TARTRATE 5 MG/5 ML VIAL IVPUSH PRN ×3 (07:42→18:09)
[2017-02-12] MEDS: METOPROLOL TARTRATE 50 MG TABLET (FP) PO SCH ×2 (09:06→21:57)
[2017-02-12] MEDS: MEROPENEM 1 GM PUSH 20 ML IVPUSH SCH (09:07)
[2017-02-12] MEDS: PANTOPRAZOLE SODIUM 40 MG VIAL IVPUSH SCH (09:07)
--- NOTE | 2017-02-12 09:24 | PN ---
Progress Note (short form) - Note Progress Note: pt seen/ examined in icu. chart reviewed. comfortable no distress. afebrile Vital Signs Temp 98.3 F 02/12/17 08:00 Pulse 76 02/12/17 08:00 Resp 20 02/12/17 08:00 BP 156/69 02/12/17 08:00 Pulse Ox 99 02/12/17 08:00 Intake & Output 02/11/17 02/11/17 02/12/17 11:59 23:59 11:59 Intake Total 921 405 6929 Output Total 1160 660 880 Balance -240 320 200 Weight 176 lb 166 lb 3 oz Intake: IV 720 780 780 clinemax 720 780 780 IVPB 200 200 300 Output: Drainage 360 110 180 Right Abdomen 360 110 180 Urine 800 550 700 Bar 800 550 700 Other: Voiding Method Indwelling Catheter Indwelling Catheter Indwelling Catheter Bowel Movement Yes Weight Measurement Method Built in [facility] Active Medications Albuterol/Ipratropium (Duoneb -) 1 amp NEB Q4H PRN PRN Reason: SHORTNESS OF BREATH Artificial Tears (Artificial Tears) 1 drop OU HS [facility] Last Admin: 02/11/17 21:25 Dose: 1 drop Chlorhexidine Gluconate (Hibiclens For Decolonization -) 1 applic TP HS [facility] Last Admin: 02/11/17 21:25 Dose: 1 applic Heparin Sodium (Porcine) (Heparin -) 5,000 unit SQ TID [facility] Last Admin: 02/12/17 06:46 Dose: 5,000 unit Ampicillin Sodium 1 gm/ Sodium (Chloride) 100 mls @ 200 mls/hr IVPB Q6H-IV [facility] Last Admin: 02/12/17 09:06 Dose: 200 mls/hr Meropenem (Merrem (Restricted To Id) -) 20 mls @ 240 mls/hr IVPUSH BID [facility] Last Admin: 02/12/17 09:07 Dose: 240 mls/hr Amino Acids (Clinimix -) 1,000 mls @ 65 mls/hr IV Q12H [facility] Last Admin: 02/12/17 02:33 Dose: 65 mls/hr Metoprolol Tartrate (Lopressor -) 50 mg PO BID [facility] Last Admin: 02/12/17 09:06 Dose: Not Given Metoprolol Tartrate (Lopressor Injection -) 5 mg IVPUSH Q4H PRN PRN Reason: HYPERTENSION Last Admin: 02/12/17 07:42 Dose: 5 mg Pantoprazole Sodium (Protonix Iv) 40 mg IVPUSH DAILY [facility] Last Admin: 02/12/17 09:07 Dose: Not Given CBC, BMP 02/12/17 05:45 02/12/17 05:45 cxr - noted. Physical Exam. Constitutional: Yes: No Distress, Calm/ comfortable. Cardiovascular: Yes: Regular Rate and Rhythm. Respiratory: Yes: Diminished at bases Gastrointestinal: Yes: Normal Bowel Sounds, Soft, Other (CARMELITA drain). No: Distention, Tenderness Edema: Yes Edema: LLE: Trace, RLE: Trace. Neuro- awake/ resists exam. Problem List - Problems (1) Severe sepsis Code(s): A41.9 - SEPSIS, UNSPECIFIED ORGANISM; R65.20 - SEVERE SEPSIS WITHOUT SEPTIC SHOCK (2) Elevated liver function tests Code(s): R79.89 - OTHER SPECIFIED ABNORMAL FINDINGS OF BLOOD CHEMISTRY (3) Cholangitis due to bile duct calculus with obstruction Code(s): K80.31 - CALCULUS OF BILE DUCT W CHOLANGITIS, UNSP, WITH OBSTRUCTION (4) Choledocholithiasis with obstruction Code(s): K80.51 - CALCULUS OF BILE DUCT W/O CHOLANGITIS OR CHOLECYST W OBST (5) Dementia with behavioral disturbance Code(s): F03.91 - UNSPECIFIED DEMENTIA WITH BEHAVIORAL DISTURBANCE Qualifiers: Dementia type: unspecified type Qualified Code(s): F03.91 - Unspecified dementia with behavioral disturbance (6) Calculus of gallbladder 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 Code(s): K80.67 - CALCULUS OF GB AND BILE DUCT W AC AND CHR CHOLECYST W OBST (7) Hypertension Code(s): I10 - ESSENTIAL (PRIMARY) HYPERTENSION Qualifiers: Hypertension type: essential hypertension Qualified Code(s): I10 - Essential (primary) hypertension Assessment/Plan clinically better slowly getting better physical therapy abx per i/d chest pt continue other meds will follow discussed with nursing staff discussed with Dr. Monique also. will follow.
--- NOTE | 2017-02-12 09:53 | PN ---
Progress Note, Physician Chief Complaint: extubated TELE: NSR, rare VPCs History of Present Illness: not tolerating PO Requiring IV Lopressor - Current Medication List Current Medications: Active Medications Albuterol/Ipratropium (Duoneb -) 1 amp NEB Q4H PRN PRN Reason: SHORTNESS OF BREATH Artificial Tears (Artificial Tears) 1 drop OU HS [facility] Last Admin: 02/11/17 21:25 Dose: 1 drop Chlorhexidine Gluconate (Hibiclens For Decolonization -) 1 applic TP HS [facility] Last Admin: 02/11/17 21:25 Dose: 1 applic Heparin Sodium (Porcine) (Heparin -) 5,000 unit SQ TID [facility] Last Admin: 02/12/17 06:46 Dose: 5,000 unit Ampicillin Sodium 1 gm/ Sodium (Chloride) 100 mls @ 200 mls/hr IVPB Q6H-IV [facility] Last Admin: 02/12/17 09:06 Dose: 200 mls/hr Meropenem (Merrem (Restricted To Id) -) 20 mls @ 240 mls/hr IVPUSH BID [facility] Last Admin: 02/12/17 09:07 Dose: 240 mls/hr Amino Acids (Clinimix -) 1,000 mls @ 65 mls/hr IV Q12H [facility] Last Admin: 02/12/17 02:33 Dose: 65 mls/hr Metoprolol Tartrate (Lopressor -) 50 mg PO BID [facility] Last Admin: 02/12/17 09:06 Dose: Not Given Metoprolol Tartrate (Lopressor Injection -) 5 mg IVPUSH Q4H PRN PRN Reason: HYPERTENSION Last Admin: 02/12/17 07:42 Dose: 5 mg Pantoprazole Sodium (Protonix Iv) 40 mg IVPUSH DAILY [facility] Last Admin: 02/12/17 09:07 Dose: Not Given - Objective Vital Signs: Vital Signs Temperature 98.3 F 02/12/17 08:00 Pulse Rate 76 02/12/17 08:00 Respiratory Rate 20 02/12/17 08:00 Blood Pressure 156/69 02/12/17 08:00 O2 Sat by Pulse Oximetry (%) 99 02/12/17 08:00 Constitutional: Yes: No Distress Cardiovascular: Yes: Regular Rate and Rhythm Respiratory: Yes: Other (severe rhonchi b/l) Gastrointestinal: Yes: Soft Edema: No Labs: CBC, BMP 02/12/17 05:45 02/12/17 05:45 INR, PTT INR 1.34 (0.82-1.09) H 02/03/17 06:00 Laboratory Tests 02/12/17 02/12/17 05:45 05:45 WBC 9.8 Hgb 9.1 L Plt Count 266 Sodium 140 Potassium 4.0 BUN 34 H Creatinine 0.8 Calcium 7.1 L Phosphorus 1.9 L Magnesium 2.0 - ....Imaging EKG: Image Reviewed Assessment/Plan Assessment/Plan Sepsis, Klebsiella in blood, Ecoli/enterococcus from cholecystostomy Choledocholithiasis, s/p perc. cholecystostomy ASHD Acute respiratory failure s/p intubation HTN REC: -CK/Troponin mildly elevated in setting of septic shock and BERTA -Probable chronic underlying CAD based on EKG but this does not appear to be ACS /NSTEMI -Echo showed normal LV systolic function -Frequent PVCs, short episodes of NSVT, brief episodes PSVT on tele, improved with bblocker -Cannot tolerate PO, requiring IV BP meds -cont supportive/ICU care: requires frequent chest PT, suctioning. Cont. ICU care.
--- NOTE | 2017-02-12 10:32 | PN ---
Progress Note, SHIRT HEMMER - Note Progress Note: More alert, vocalizing but non verbal. Wet vocal quality with cough, suctioning secretions in oropharynx with briefly improved vocal quality. Pt did not accept PO trials and likely high risk of aspiration still at this time. Likely aspirating on secretions. Selected Entries 02/11/17 02/11/17 02/11/17 02:00 06:00 08:00 Breakfast Temperature 99.9 F H 99.3 F 99.5 F 02/11/17 02/11/17 02/11/17 10:00 12:00 14:00 Breakfast Temperature 99.1 F 99.1 F 99.3 F 02/11/17 02/11/17 02/11/17 16:00 18:00 20:00 Breakfast Temperature 99.6 F 99.2 F 99.2 F 02/11/17 02/12/17 02/12/17 22:00 02:00 06:00 Breakfast Temperature 100 F H 100.3 F H 99.2 F 02/12/17 02/12/17 08:00 10:00 Breakfast NPO Temperature 98.3 F 97.9 F Laboratory Tests 02/12/17 05:45 WBC 9.8 Suggest continue NPO, suction PRN, mouth care. May need alternate means of nutritional intake, at least in short term, until he improves. Pt is a full code. Pt' wishes regarding TF?
[2017-02-12] MEDS: ALBUTEROL SO4 2.5/IPRATROPIUM 0.5 INH SOL 3 ML VIAL.NEB. NEB PRN ×2 (10:35→17:15)
--- NOTE | 2017-02-12 13:32 | PN ---
Teaching Attending Note Name of Resident: Shola Suazo ATTENDING PHYSICIAN STATEMENT I saw and evaluated the patient. I reviewed the resident's note and discussed the case with the resident. I agree with the resident's findings and plan as documented. SUBJECTIVE: Patient seen and examined in the ICU. Currently extubated. Drowsy but arousable. Congested cough is noted. No pressors. Intake & Output 02/09/17 02/10/17 02/11/17 02/12/17 23:59 23:59 23:59 23:59 Intake Total 2510 1590 1900 1080 Output Total 1450 1470 1820 940 Balance 1060 120 80 140 Weight 176 lb 4 oz 174 lb 5 oz 176 lb 166 lb 3 oz Last Vital Signs Temp Pulse Resp BP Pulse Ox 97.3 F L 76 18 159/75 98 02/12/17 13:06 02/12/17 13:06 02/12/17 13:06 02/12/17 13:06 02/12/17 11:31 Active Medications Albuterol/Ipratropium (Duoneb -) 1 amp NEB Q4H PRN PRN Reason: SHORTNESS OF BREATH Last Admin: 02/12/17 10:35 Dose: 1 amp Artificial Tears (Artificial Tears) 1 drop OU HS [facility] Last Admin: 02/11/17 21:25 Dose: 1 drop Chlorhexidine Gluconate (Hibiclens For Decolonization -) 1 applic TP HS [facility] Last Admin: 02/11/17 21:25 Dose: 1 applic Heparin Sodium (Porcine) (Heparin -) 5,000 unit SQ TID [facility] Last Admin: 02/12/17 06:46 Dose: 5,000 unit Ampicillin Sodium 1 gm/ Sodium (Chloride) 100 mls @ 200 mls/hr IVPB Q6H-IV [facility] Last Admin: 02/12/17 09:06 Dose: 200 mls/hr Meropenem (Merrem (Restricted To Id) -) 20 mls @ 240 mls/hr IVPUSH BID [facility] Last Admin: 02/12/17 09:07 Dose: 240 mls/hr Amino Acids (Clinimix -) 1,000 mls @ 65 mls/hr IV Q12H [facility] Last Admin: 02/12/17 02:33 Dose: 65 mls/hr Metoprolol Tartrate (Lopressor -) 50 mg PO BID [facility] Last Admin: 02/12/17 09:06 Dose: Not Given Metoprolol Tartrate (Lopressor Injection -) 5 mg IVPUSH Q4H PRN PRN Reason: HYPERTENSION Last Admin: 02/12/17 07:42 Dose: 5 mg Pantoprazole Sodium (Protonix Iv) 40 mg IVPUSH DAILY [facility] Last Admin: 02/12/17 09:07 Dose: Not Given Gen: extubated, mildly tachypneic, confused Heart: RRR Lung: scattered rhonchi Abd: soft, nontender, drain intact Ext: no edema Laboratory Results - last 24 hr 02/12/17 02/12/17 05:45 05:45 WBC 9.8 RBC 2.83 L Hgb 9.1 L Hct 26.8 L MCV 95.0 MCH 32.1 MCHC 33.8 RDW 16.3 H Plt Count 266 MPV 9.4 Neutrophils % 76.6 Lymphocytes % 13.5 Monocytes % 7.4 Eosinophils % 2.1 Basophils % 0.4 Sodium 140 Potassium 4.0 Chloride 108 H Carbon Dioxide 26 Anion Gap 6 L BUN 34 H Creatinine 0.8 Creat Clearance w eGFR > 60 Random Glucose 109 H Calcium 7.1 L Phosphorus 1.9 L Magnesium 2.0 Total Bilirubin 2.4 H AST 38 H ALT 46 Alkaline Phosphatase 160 H Total Protein 5.3 L Albumin 1.8 L ASSESSMENT AND PLAN: Cholangitis Klebsiella Bacteremia s/p Cholecystostomy placement Severe Sepsis improving Acute Hypoxic Respiratory Failure improving Acute Kidney Injury Anemia - continue antibiotics per ID - Monitor lytes - monitor urine output, creatinine - taper FiO2 to keep Spo2 >90% - Swallow evaluation - PO per GI - aspiration precautions - DVT/GI prophylaxis - 4W/4S monitoring Dr Corral Critical care time spent in reviewing chart, evaluating patient and formulating plan 35 min
--- NOTE | 2017-02-12 13:52 | PN ---
Progress Note, Physician History of Present Illness: Pt seen and examined at bedside. He remains extubated. Pt remains in the ICU. - Current Medication List Current Medications: Active Medications Albuterol/Ipratropium (Duoneb -) 1 amp NEB Q4H PRN PRN Reason: SHORTNESS OF BREATH Last Admin: 02/12/17 10:35 Dose: 1 amp Artificial Tears (Artificial Tears) 1 drop OU HS [facility] Last Admin: 02/11/17 21:25 Dose: 1 drop Chlorhexidine Gluconate (Hibiclens For Decolonization -) 1 applic TP HS [facility] Last Admin: 02/11/17 21:25 Dose: 1 applic Heparin Sodium (Porcine) (Heparin -) 5,000 unit SQ TID [facility] Last Admin: 02/12/17 13:35 Dose: 5,000 unit Ampicillin Sodium 1 gm/ Sodium (Chloride) 100 mls @ 200 mls/hr IVPB Q6H-IV [facility] Last Admin: 02/12/17 09:06 Dose: 200 mls/hr Meropenem (Merrem (Restricted To Id) -) 20 mls @ 240 mls/hr IVPUSH BID [facility] Last Admin: 02/12/17 09:07 Dose: 240 mls/hr Amino Acids (Clinimix -) 1,000 mls @ 65 mls/hr IV Q12H [facility] Last Admin: 02/12/17 12:45 Dose: 65 mls/hr Metoprolol Tartrate (Lopressor -) 50 mg PO BID [facility] Last Admin: 02/12/17 09:06 Dose: Not Given Metoprolol Tartrate (Lopressor Injection -) 5 mg IVPUSH Q4H PRN PRN Reason: HYPERTENSION Last Admin: 02/12/17 13:35 Dose: 5 mg Pantoprazole Sodium (Protonix Iv) 40 mg IVPUSH DAILY [facility] Last Admin: 02/12/17 09:07 Dose: Not Given - Objective Vital Signs: Vital Signs Temperature 97.3 F L 02/12/17 13:06 Pulse Rate 84 02/12/17 13:35 Respiratory Rate 18 02/12/17 13:06 Blood Pressure 159/75 02/12/17 13:35 O2 Sat by Pulse Oximetry (%) 98 02/12/17 11:31 Constitutional: Yes: Calm Eyes: Yes: Conjunctiva Clear HENT: Yes: Atraumatic Cardiovascular: Yes: S1, S2 Respiratory: Yes: On Nasal O2, Rhonchi Gastrointestinal: Yes: Soft Genitourinary: Yes: Bar Present Musculoskeletal: Yes: Muscle Weakness Edema: No Neurological: Yes: Other (awake) Labs: CBC, BMP 02/12/17 05:45 02/12/17 05:45 INR, PTT INR 1.34 (0.82-1.09) H 02/03/17 06:00 - ....Imaging Chest X-ray: Report Reviewed Problem List - Problems (1) Hypertension Code(s): I10 - ESSENTIAL (PRIMARY) HYPERTENSION Qualifiers: Hypertension type: essential hypertension Qualified Code(s): I10 - Essential (primary) hypertension (2) Acute cholangitis due to calculus of bile duct with obstruction Code(s): K80.37 - CALCULUS OF BILE DUCT W ACUTE AND CHRONIC CHOLANGITIS W OBST (3) JUAN J (acute kidney injury) Code(s): N17.9 - ACUTE KIDNEY FAILURE, UNSPECIFIED Assessment/Plan Current Medications Generic Name Dose Route Start Last Admin Trade Name Freq PRN Reason Stop Dose Admin Albuterol/Ipratropium 1 amp 02/11/17 13:59 02/12/17 10:35 Duoneb - NEB 1 amp Q4H PRN Administration SHORTNESS OF BREATH Artificial Tears 1 drop 02/07/17 22:00 02/11/17 21:25 Artificial Tears OU 1 drop HS [facility] Administration Chlorhexidine Gluconate 1 applic 02/03/17 22:00 02/11/17 21:25 Hibiclens For Decolonization - TP 1 applic HS [facility] Administration Heparin Sodium (Porcine) 5,000 unit 02/08/17 22:00 02/12/17 13:35 Heparin - SQ 5,000 unit TID [facility] Administration Ampicillin Sodium 1 gm/ Sodium 100 mls @ 200 mls/hr 02/05/17 21:00 02/12/17 09:06 Chloride IVPB 200 mls/hr Q6H-IV [facility] Administration Meropenem 20 mls @ 240 mls/hr 02/06/17 05:00 02/12/17 09:07 Merrem (Restricted To Id) - IVPUSH 240 mls/hr BID [facility] Administration Amino Acids 1,000 mls @ 65 mls/hr 02/10/17 12:45 02/12/17 12:45 Clinimix - IV 65 mls/hr Q12H [facility] Administration Metoprolol Tartrate 50 mg 02/10/17 09:00 02/12/17 09:06 Lopressor - PO Not Given BID [facility] Metoprolol Tartrate 5 mg 02/11/17 10:20 02/12/17 13:35 Lopressor Injection - IVPUSH 5 mg Q4H PRN Administration HYPERTENSION Pantoprazole Sodium 40 mg 02/03/17 10:00 02/12/17 09:07 Protonix Iv IVPUSH Not Given DAILY [facility] Impression 1. JUAN J 2. acute resp failure 3. sepsis 4. bacteremia 5. alzheimers 6. anemia 7. choledocholithiasis 8. hypernatremia 9. hypokalemia Plan - will need speech and swallow eval - will cont clinimix for now, will need to monitor lytes closely - repeat labs in am - cxr reviewed - monitor lytes - replace phos - renal function is stable - GI follow up - cholecystostomy care - monitor output from drain - will follow - surgery follow up Dr Haynes
--- NOTE | 2017-02-12 14:45 | PN ---
Physical Exam: SUBJECTIVE: Patient seen and examined. patient sitting in bed, extubated yesterday. Patient has poor cough reflux. try to put nasal trumpet for deep suctioning but patient didn't allow it. Patient has been advised to cough. Patient was on bed side. NPO for now. OBJECTIVE: Vital Signs Period Temp Pulse Resp BP Sys/Hernandez Pulse Ox Last 24 Hr 97.1 F-100.3 F 64-95 15-27 130-188/59-93 97-99 GENERAL: The patient is awake, HEAD: Normal with no signs of trauma. EYES: PERRL, , conjunctiva clear. No ptosis. ENT: has lot of sputum in mouth, suction done, moist mucous membranes. NECK: Trachea midline, full range of motion, supple. LUNGS: decrease breath sound b/l, crackles present at bases. HEART: Regular rate and rhythm, S1, S2 normal. ABDOMEN: Soft, nontender, nondistended, normoactive bowel sounds, no guarding, PSYCH: Normal mood, normal affect. SKIN: Warm, dry, Laboratory Results - last 24 hr 02/12/17 02/12/17 05:45 05:45 WBC 9.8 RBC 2.83 L Hgb 9.1 L Hct 26.8 L MCV 95.0 MCH 32.1 MCHC 33.8 RDW 16.3 H Plt Count 266 MPV 9.4 Neutrophils % 76.6 Lymphocytes % 13.5 Monocytes % 7.4 Eosinophils % 2.1 Basophils % 0.4 Sodium 140 Potassium 4.0 Chloride 108 H Carbon Dioxide 26 Anion Gap 6 L BUN 34 H Creatinine 0.8 Creat Clearance w eGFR > 60 Random Glucose 109 H Calcium 7.1 L Phosphorus 1.9 L Magnesium 2.0 Total Bilirubin 2.4 H AST 38 H ALT 46 Alkaline Phosphatase 160 H Total Protein 5.3 L Albumin 1.8 L Active Medications Generic Name Dose Route Start Last Admin Trade Name Freq PRN Reason Stop Dose Admin Albuterol/Ipratropium 1 amp 02/11/17 13:59 02/12/17 10:35 Duoneb - NEB 1 amp Q4H PRN Administration SHORTNESS OF BREATH Artificial Tears 1 drop 02/07/17 22:00 02/11/17 21:25 Artificial Tears OU 1 drop HS [facility] Administration Chlorhexidine Gluconate 1 applic 02/03/17 22:00 02/11/17 21:25 Hibiclens For Decolonization - TP 1 applic HS [facility] Administration Heparin Sodium (Porcine) 5,000 unit 02/08/17 22:00 02/12/17 13:35 Heparin - SQ 5,000 unit TID [facility] Administration Ampicillin Sodium 1 gm/ Sodium 100 mls @ 200 mls/hr 02/05/17 21:00 02/12/17 14:34 Chloride IVPB 200 mls/hr Q6H-IV [facility] Administration Meropenem 20 mls @ 240 mls/hr 02/06/17 05:00 02/12/17 09:07 Merrem (Restricted To Id) - IVPUSH 240 mls/hr BID [facility] Administration Amino Acids 1,000 mls @ 65 mls/hr 02/10/17 12:45 02/12/17 12:45 Clinimix - IV 65 mls/hr Q12H [facility] Administration Metoprolol Tartrate 50 mg 02/10/17 09:00 02/12/17 09:06 Lopressor - PO Not Given BID [facility] Metoprolol Tartrate 5 mg 02/11/17 10:20 02/12/17 13:35 Lopressor Injection - IVPUSH 5 mg Q4H PRN Administration HYPERTENSION Pantoprazole Sodium 40 mg 02/03/17 10:00 02/12/17 09:07 Protonix Iv IVPUSH Not Given DAILY [facility] CBCD WBC 9.8 K/mm3 (4.0-10.0) 02/12/17 05:45 RBC 2.83 M/mm3 (4.00-5.60) L 02/12/17 05:45 Hgb 9.1 GM/dL (11.7-16.9) L 02/12/17 05:45 Hct 26.8 % (35.4-49) L 02/12/17 05:45 MCV 95.0 fl (80-96) 02/12/17 05:45 MCHC 33.8 g/dl (32.0-35.9) 02/12/17 05:45 RDW 16.3 % (11.9-15.9) H 02/12/17 05:45 Plt Count 266 K/MM3 (134-434) 02/12/17 05:45 MPV 9.4 fl (7.5-11.1) 02/12/17 05:45 CMP Sodium 140 mmol/L (136-145) 02/12/17 05:45 Potassium 4.0 mmol/L (3.5-5.1) 02/12/17 05:45 Chloride 108 mmol/L (98-107) H 02/12/17 05:45 Carbon Dioxide 26 mmol/L (21-32) 02/12/17 05:45 Anion Gap 6 (8-16) L 02/12/17 05:45 BUN 34 mg/dL (7-18) H 02/12/17 05:45 Creatinine 0.8 mg/dL (0.7-1.3) 02/12/17 05:45 Creat Clearance w eGFR > 60 (>60) 02/12/17 05:45 Random Glucose 109 mg/dL (74-106) H 02/12/17 05:45 Calcium 7.1 mg/dL (8.5-10.1) L 02/12/17 05:45 Total Bilirubin 2.4 mg/dL (0.2-1.0) H 02/12/17 05:45 AST 38 U/L (15-37) H 02/12/17 05:45 ALT 46 U/L (12-78) 02/12/17 05:45 Alkaline Phosphatase 160 U/L (45-117) H 02/12/17 05:45 Total Protein 5.3 g/dl (6.4-8.2) L 02/12/17 05:45 Albumin 1.8 g/dl (3.4-5.0) L 02/12/17 05:45 CARDIAC ENZYMES Creatine Kinase 513 IU/L (39-308) H 02/03/17 14:50 Troponin I 0.74 ng/ml (0.00-0.05) H* D 02/03/17 14:50 Intake & Output 02/09/17 02/10/17 02/11/17 02/12/17 23:59 23:59 23:59 23:59 Intake Total 2510 1590 1900 1080 Output Total 1450 1470 1820 1500 Balance 1060 120 80 -420 Weight 176 lb 4 oz 174 lb 5 oz 176 lb 166 lb 3 oz ASSESSMENT/PLAN: Respiratory failure. extubated yesterday keep head end elevated. aspiration precautions. chest physical therapy bid. keep spo2. 90% continue with duoneb nebulizer. Severe Sepsis improving Klebsiella Bacteremia improving id on case antibiotics as per id ampicillin and meropenem #cholangitis, with s/p cholecystostomy tube - ast/alt 38/ 46, total naomi 2.4 -drain in place and draining 200ml bilious fluid #anemia normocytic anemia hb 9.1, after on pac cell transfusion. #JUAN J resolved cr 0.8 nephro on block and case maker renal function. Monitor intake and output. #FEN on clinimix, add MVI in next bag electrolyte; replace phosphorus. NPO for now. #PPx -on heparin sq -protonix transfer tele Visit type - Emergency Visit Emergency Visit: Yes ED Registration Date: 02/01/17 Care time: The patient presented to the Emergency Department on the above date and was hospitalized for further evaluation of their emergent condition. - New Patient This patient is new to me today: No - Critical Care Critical Care patient: Yes Total Critical Care Time (in minutes): 45 Critical Care Statement: The care of this patient involved high complexity decision making to prevent further life threatening deterioration of the patient 's condition and/or to evaluate & treat vital organ system(s) failure or risk of failure.
[2017-02-12] MEDS ORDERED: POTASSIUM PHOSPHATE 15 MM in SODIUM CHLORIDE 245 ML IVPB ONE (15:07)
--- NOTE | 2017-02-12 16:32 | PN ---
Progress Note, Physician History of Present Illness: post extubation patient is stable responding looks in no discomfort - Current Medication List Current Medications: Active Medications Albuterol/Ipratropium (Duoneb -) 1 amp NEB Q4H PRN PRN Reason: SHORTNESS OF BREATH Last Admin: 02/12/17 10:35 Dose: 1 amp Artificial Tears (Artificial Tears) 1 drop OU HS [facility] Last Admin: 02/11/17 21:25 Dose: 1 drop Chlorhexidine Gluconate (Hibiclens For Decolonization -) 1 applic TP HS [facility] Last Admin: 02/11/17 21:25 Dose: 1 applic Heparin Sodium (Porcine) (Heparin -) 5,000 unit SQ TID [facility] Last Admin: 02/12/17 13:35 Dose: 5,000 unit Ampicillin Sodium 1 gm/ Sodium (Chloride) 100 mls @ 200 mls/hr IVPB Q6H-IV [facility] Last Admin: 02/12/17 14:34 Dose: 200 mls/hr Meropenem (Merrem (Restricted To Id) -) 20 mls @ 240 mls/hr IVPUSH BID [facility] Last Admin: 02/12/17 09:07 Dose: 240 mls/hr Amino Acids (Clinimix -) 1,000 mls @ 65 mls/hr IV Q12H [facility] Last Admin: 02/12/17 12:45 Dose: 65 mls/hr Potassium Phosphate 15 mm/ (Sodium Chloride) 250 mls @ 62.5 mls/hr IVPB ONCE ONE Stop: 02/12/17 19:06 Metoprolol Tartrate (Lopressor -) 50 mg PO BID [facility] Last Admin: 02/12/17 09:06 Dose: Not Given Metoprolol Tartrate (Lopressor Injection -) 5 mg IVPUSH Q4H PRN PRN Reason: HYPERTENSION Last Admin: 02/12/17 13:35 Dose: 5 mg Pantoprazole Sodium (Protonix Iv) 40 mg IVPUSH DAILY [facility] Last Admin: 02/12/17 09:07 Dose: Not Given - Objective Vital Signs: Vital Signs Temperature 97.1 F L 02/12/17 14:00 Pulse Rate 64 02/12/17 14:00 Respiratory Rate 18 02/12/17 13:06 Blood Pressure 146/64 02/12/17 14:00 O2 Sat by Pulse Oximetry (%) 98 02/12/17 11:31 Constitutional: Yes: No Distress, Calm Cardiovascular: Yes: Regular Rate and Rhythm Respiratory: Yes: Regular, CTA Bilaterally Gastrointestinal: Yes: Normal Bowel Sounds, Soft Musculoskeletal: Yes: WNL Extremities: Yes: WNL Neurological: Yes: Alert, Other Psychiatric: Yes: Alert Labs: CBC, BMP 02/12/17 05:45 02/12/17 05:45 INR, PTT INR 1.34 (0.82-1.09) H 02/03/17 06:00 Assessment/Plan Problem List - Problems (1) Calculus of gallbladder 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91 - Unspecified dementia with behavioral disturbance; F03.91 - Unspecified dementia with behavioral disturbance; F03.91 - Unspecified dementia with behavioral disturbance fever 6 gm negative bacteremia cx from the gb seen all cx noted plan t continue abx close watch much more responsive continue as per icu cc time 40 min
--- NOTE | 2017-02-12 17:36 | PN ---
Progress Note (short form) - Note Progress Note: -patient evaluated by speech and swallow; not able to tolerate po; likely to aspirate -will continue current bag of clinemex; -insert NG tube after clinemex and start feeds -re consult GI for evaluation for PEG tube placement Problem List - Problems (1) Severe sepsis Code(s): A41.9 - SEPSIS, UNSPECIFIED ORGANISM; R65.20 - SEVERE SEPSIS WITHOUT SEPTIC SHOCK (2) Elevated liver function tests Code(s): R79.89 - OTHER SPECIFIED ABNORMAL FINDINGS OF BLOOD CHEMISTRY (3) Cholangitis due to bile duct calculus with obstruction Code(s): K80.31 - CALCULUS OF BILE DUCT W CHOLANGITIS, UNSP, WITH OBSTRUCTION (4) Cholelithiasis Code(s): K80.20 - CALCULUS OF GALLBLADDER W/O CHOLECYSTITIS W/O OBSTRUCTION (5) Choledocholithiasis with obstruction Code(s): K80.51 - CALCULUS OF BILE DUCT W/O CHOLANGITIS OR CHOLECYST W OBST (6) Dementia with behavioral disturbance Code(s): F03.91 - UNSPECIFIED DEMENTIA WITH BEHAVIORAL DISTURBANCE Qualifiers: Dementia type: unspecified type Qualified Code(s): F03.91 - Unspecified dementia with behavioral disturbance (7) Calculus of gallbladder 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 Code(s): K80.67 - CALCULUS OF GB AND BILE DUCT W AC AND CHR CHOLECYST W OBST (8) Macular degeneration, age related Code(s): H35.30 - UNSPECIFIED MACULAR DEGENERATION (9) Hypertension Code(s): I10 - ESSENTIAL (PRIMARY) HYPERTENSION Qualifiers: Hypertension type: essential hypertension Qualified Code(s): I10 - Essential (primary) hypertension (10) Klebsiella pneumoniae sepsis Code(s): A41.4 - SEPSIS DUE TO ANAEROBES (11) Sepsis due to Gram-negative organism with acute respiratory failure Code(s): A41.50 - GRAM-NEGATIVE SEPSIS, UNSPECIFIED; R65.20 - SEVERE SEPSIS WITHOUT SEPTIC SHOCK; J96.00 - ACUTE RESPIRATORY FAILURE, UNSP W HYPOXIA OR HYPERCAPNIA (12) Acute cholangitis due to calculus of bile duct with obstruction Code(s): K80.37 - CALCULUS OF BILE DUCT W ACUTE AND CHRONIC CHOLANGITIS W OBST (13) JUAN J (acute kidney injury) Code(s): N17.9 - ACUTE KIDNEY FAILURE, UNSPECIFIED
[2017-02-12] MEDS: MEROPENEM 1 GM PUSH 1 GM/20 ML DISP.SYRIN IVPUSH SCH (21:54)
[2017-02-12] MEDS: CHLORHEXIDINE GLUCONATE 4% CLEANSER FOR DECOLONIZATION TP SCH (21:54)
[2017-02-12] MEDS: ARTIFICIAL TEARS (POLYVINYL ALCOHOL 1.4%) OPTH DROPS OU SCH (21:57)
[2017-02-13] MEDS: AMPICILLIN - 1 GM in SODIUM CHLORIDE 100 ML IVPB SCH ×4 (02:43→22:27)
[2017-02-13] MEDS: HEPARIN NA (PORCINE) 5,000 UNITS/ML 1ML VIAL SQ SCH ×3 (06:29→22:28)
--- NOTE | 2017-02-13 07:47 | PN ---
Progress Note, Physician Chief Complaint: TELE: ST, VPCs - Current Medication List Current Medications: Active Medications Albuterol/Ipratropium (Duoneb -) 1 amp NEB Q4H PRN PRN Reason: SHORTNESS OF BREATH Artificial Tears (Artificial Tears) 1 drop OU HS [facility] Last Admin: 02/12/17 21:57 Dose: 1 drop Chlorhexidine Gluconate (Hibiclens For Decolonization -) 1 applic TP HS [facility] Last Admin: 02/12/17 21:54 Dose: 1 applic Heparin Sodium (Porcine) (Heparin -) 5,000 unit SQ TID [facility] Last Admin: 02/13/17 06:29 Dose: 5,000 unit Ampicillin Sodium 1 gm/ Sodium (Chloride) 100 mls @ 200 mls/hr IVPB Q6H-IV [facility] Last Admin: 02/13/17 02:43 Dose: 200 mls/hr Meropenem (Merrem (Restricted To Id) -) 1 gm in 20 mls @ 240 mls/hr IVPUSH BID [facility] Last Admin: 02/12/17 21:54 Dose: 240 mls/hr Metoprolol Tartrate (Lopressor -) 50 mg PO BID [facility] Last Admin: 02/12/17 21:57 Dose: Not Given Metoprolol Tartrate (Lopressor Injection -) 5 mg IVPUSH Q4H PRN PRN Reason: HYPERTENSION Last Admin: 02/13/17 00:00 Dose: 5 mg Pantoprazole Sodium (Protonix Iv) 40 mg IVPUSH DAILY [facility] - Objective Vital Signs: Vital Signs Temperature 100.1 F H 02/13/17 06:00 Pulse Rate 93 H 02/13/17 06:00 Respiratory Rate 17 02/13/17 06:00 Blood Pressure 142/62 02/13/17 06:00 O2 Sat by Pulse Oximetry (%) 99 02/12/17 19:57 Constitutional: Yes: No Distress Cardiovascular: Yes: Regular Rate and Rhythm Respiratory: Yes: Other (= breath sounds b/l) Gastrointestinal: Yes: Soft Edema: No Labs: CBC, BMP 02/12/17 05:45 02/12/17 05:45 INR, PTT INR 1.34 (0.82-1.09) H 02/03/17 06:00 - ....Imaging EKG: Image Reviewed Assessment/Plan Assessment/Plan Sepsis, Klebsiella in blood, Ecoli/enterococcus from cholecystostomy Choledocholithiasis, s/p perc. cholecystostomy ASHD Acute respiratory failure s/p intubation HTN REC: -CK/Troponin mildly elevated in setting of septic shock and BERTA -Probable chronic underlying CAD based on EKG but this does not appear to be ACS /NSTEMI -Echo showed normal LV systolic function -Frequent PVCs, short episodes of NSVT, brief episodes PSVT on tele, improved with bblocker -Cannot tolerate PO, requiring IV BP meds -cont supportive/ICU care: requires frequent chest PT, suctioning. Cont. ICU care.
[2017-02-13] MEDS ORDERED: PT OWN MED DRAWER 7, Y5N ONE ×2 (09:18→14:23)
[2017-02-13] MEDS: METOPROLOL TARTRATE 5 MG/5 ML VIAL IVPUSH PRN ×2 (09:52)
[2017-02-13] MEDS: MEROPENEM 1 GM PUSH 1 GM/20 ML DISP.SYRIN IVPUSH SCH ×2 (09:53→22:47)
[2017-02-13] MEDS: METOPROLOL TARTRATE 50 MG TABLET (FP) PO SCH ×2 (09:53→21:41)
[2017-02-13] MEDS: PANTOPRAZOLE SODIUM 40 MG VIAL IVPUSH SCH (09:54)
--- NOTE | 2017-02-13 10:11 | PN ---
Progress Note (short form) - Note Progress Note: RENAL Pt seen and examined in the emergency department appeared comfortable but does not respond Last Vital Signs Temp Pulse Resp BP Pulse Ox 101.2 F H 99 H 25 H 163/58 99 02/13/17 08:00 02/13/17 09:52 02/13/17 08:00 02/13/17 09:52 02/12/17 19:57 lungs clear anteriorly cvs s1s2 rr abd soft, distended ext +edema neuro lethargic CBC, BMP 02/12/17 05:45 02/12/17 05:45 Current Medications Generic Name Dose Route Start Last Admin Trade Name Freq PRN Reason Stop Dose Admin Albuterol/Ipratropium 1 amp 02/12/17 18:46 Duoneb - NEB Q4H PRN SHORTNESS OF BREATH Artificial Tears 1 drop 02/12/17 22:00 02/12/17 21:57 Artificial Tears OU 1 drop HS [facility] Administration Chlorhexidine Gluconate 1 applic 02/12/17 22:00 02/12/17 21:54 Hibiclens For Decolonization - TP 1 applic HS [facility] Administration Heparin Sodium (Porcine) 5,000 unit 02/12/17 22:00 02/13/17 06:29 Heparin - SQ 5,000 unit TID [facility] Administration Ampicillin Sodium 1 gm/ Sodium 100 mls @ 200 mls/hr 02/12/17 21:00 02/13/17 09:51 Chloride IVPB 200 mls/hr Q6H-IV [facility] Administration Meropenem 1 gm in 20 mls @ 240 mls/hr 02/12/17 22:00 02/13/17 09:53 Merrem (Restricted To Id) - IVPUSH 240 mls/hr BID [facility] Administration Metoprolol Tartrate 50 mg 02/12/17 22:00 02/13/17 09:53 Lopressor - PO Not Given BID [facility] Metoprolol Tartrate 5 mg 02/12/17 18:46 02/13/17 09:52 Lopressor Injection - IVPUSH 5 mg Q4H PRN Administration HYPERTENSION Pantoprazole Sodium 40 mg 02/13/17 10:00 02/13/17 09:54 Protonix Iv IVPUSH 40 mg DAILY [facility] Administration Impression 1. JUAN J 2. acute resp failure 3. sepsis 4. bacteremia 5. alzheimers 6. anemia 7. choledocholithiasis 8. hypernatremia 9. hypokalemia Plan continue current management. Renal function has improved Pt on 2 betalactams... would watch for seizure activity and hepatotoxicity MV
--- NOTE | 2017-02-13 11:13 | PN ---
Progress Note (short form) - Note Progress Note: PULMONARY/CCM Pt seen and examined in the ICU. Febrile this AM. Pt nonverbal. Last Vital Signs Temp Pulse Resp BP Pulse Ox 101.2 F H 99 H 25 H 163/58 99 02/13/17 08:00 02/13/17 09:52 02/13/17 08:00 02/13/17 09:52 02/12/17 19:57 Intake & Output 02/10/17 02/11/17 02/12/17 02/13/17 23:59 23:59 23:59 23:59 Intake Total 1590 1900 1960 700 Output Total 1470 1820 2350 680 Balance 120 80 -390 20 Weight 174 lb 5 oz 176 lb 166 lb 3 oz 166 lb 4 oz Gen: NAD at rest Heart: RRR Lung: scattered rhonchi Abd: soft, nontender, +cholecystostomy tube Ext: no edema CBC, BMP 02/12/17 05:45 02/12/17 05:45 Active Medications Albuterol/Ipratropium (Duoneb -) 1 amp NEB Q4H PRN PRN Reason: SHORTNESS OF BREATH Artificial Tears (Artificial Tears) 1 drop OU HS [facility] Last Admin: 02/12/17 21:57 Dose: 1 drop Chlorhexidine Gluconate (Hibiclens For Decolonization -) 1 applic TP HS [facility] Last Admin: 02/12/17 21:54 Dose: 1 applic Heparin Sodium (Porcine) (Heparin -) 5,000 unit SQ TID [facility] Last Admin: 02/13/17 06:29 Dose: 5,000 unit Ampicillin Sodium 1 gm/ Sodium (Chloride) 100 mls @ 200 mls/hr IVPB Q6H-IV [facility] Last Admin: 02/13/17 09:51 Dose: 200 mls/hr Meropenem (Merrem (Restricted To Id) -) 1 gm in 20 mls @ 240 mls/hr IVPUSH BID [facility] Last Admin: 02/13/17 09:53 Dose: 240 mls/hr Metoprolol Tartrate (Lopressor -) 50 mg PO BID [facility] Last Admin: 02/13/17 09:53 Dose: Not Given Metoprolol Tartrate (Lopressor Injection -) 5 mg IVPUSH Q4H PRN PRN Reason: HYPERTENSION Last Admin: 02/13/17 09:52 Dose: 5 mg Pantoprazole Sodium (Protonix Iv) 40 mg IVPUSH DAILY [facility] Last Admin: 02/13/17 09:54 Dose: 40 mg A/P s/p Acute Hypoxic Respiratory Failure Cholangitis Klebsiella Bacteremia s/p Cholecystostomy placement Severe Sepsis improving Acute Kidney Injury improving Anemia - continue antibiotics per ID - monitor lytes - monitor urine output, creatinine - taper FiO2 to keep Spo2 >90% - PO per GI - aspiration precautions - DVT/GI prophylaxis - can monitor on floor critical care time spent in reviewing chart, evaluating patient and formulating plan 35 min
[2017-02-13] MEDS: ACETAMINOPHEN 1000 MG/100 ML VIAL (NON FORMULARY) IVPB PRN (11:58)
--- NOTE | 2017-02-13 12:36 | PN ---
Progress Note (short form) - Note Progress Note: pt seen / examined in icu having fever today currently npo off clinimix since yesterday Vital Signs Temp 101.4 F H 02/13/17 10:00 Pulse 99 H 02/13/17 10:00 Resp 25 H 02/13/17 08:00 BP 147/65 02/13/17 10:00 Pulse Ox 95 02/13/17 09:00 Intake & Output 02/12/17 02/13/17 02/13/17 23:59 11:59 23:59 Intake Total 880 700 Output Total 1470 680 Balance -590 20 Weight 166 lb 4 oz Intake: IV 780 500 clinemax 780 500 IVPB 100 200 Oral 0 Output: Drainage 170 180 Right Abdomen 170 180 Urine 1300 500 Bar 1300 500 Other: Voiding Method Indwelling Catheter Indwelling Catheter Bowel Movement No Weight Measurement [facility] Active Medications Acetaminophen (Ofirmev Injection -) 1,000 mg IVPB Q6H PRN PRN Reason: FEVER OR PAIN Last Admin: 02/13/17 11:58 Dose: 1,000 mg Albuterol/Ipratropium (Duoneb -) 1 amp NEB Q4H PRN PRN Reason: SHORTNESS OF BREATH Artificial Tears (Artificial Tears) 1 drop OU HS [facility] Last Admin: 02/12/17 21:57 Dose: 1 drop Chlorhexidine Gluconate (Hibiclens For Decolonization -) 1 applic TP HS [facility] Last Admin: 02/12/17 21:54 Dose: 1 applic Heparin Sodium (Porcine) (Heparin -) 5,000 unit SQ TID [facility] Last Admin: 02/13/17 06:29 Dose: 5,000 unit Ampicillin Sodium 1 gm/ Sodium (Chloride) 100 mls @ 200 mls/hr IVPB Q6H-IV [facility] Last Admin: 02/13/17 09:51 Dose: 200 mls/hr Meropenem (Merrem (Restricted To Id) -) 1 gm in 20 mls @ 240 mls/hr IVPUSH BID [facility] Last Admin: 02/13/17 09:53 Dose: 240 mls/hr Metoprolol Tartrate (Lopressor -) 50 mg PO BID [facility] Last Admin: 02/13/17 09:53 Dose: Not Given Metoprolol Tartrate (Lopressor Injection -) 5 mg IVPUSH Q4H PRN PRN Reason: HYPERTENSION Last Admin: 02/13/17 09:52 Dose: 5 mg Pantoprazole Sodium (Protonix Iv) 40 mg IVPUSH DAILY [facility] Last Admin: 02/13/17 09:54 Dose: 40 mg Labs- not done-- ordered Physical Exam. Constitutional: Yes: No Distress, comfortable. Cardiovascular: Yes: Regular Rate and Rhythm. Respiratory: Yes: Diminished at bases Gastrointestinal: Yes: Normal Bowel Sounds, Soft, Other (CARMELITA drain). No: Distention, Tenderness Edema: Yes Edema: LLE: Trace, RLE: Trace. Neuro- awake. Problem List - Problems (1) Severe sepsis Code(s): A41.9 - SEPSIS, UNSPECIFIED ORGANISM; R65.20 - SEVERE SEPSIS WITHOUT SEPTIC SHOCK (2) Elevated liver function tests Code(s): R79.89 - OTHER SPECIFIED ABNORMAL FINDINGS OF BLOOD CHEMISTRY (3) Cholangitis due to bile duct calculus with obstruction Code(s): K80.31 - CALCULUS OF BILE DUCT W CHOLANGITIS, UNSP, WITH OBSTRUCTION (4) Choledocholithiasis with obstruction Code(s): K80.51 - CALCULUS OF BILE DUCT W/O CHOLANGITIS OR CHOLECYST W OBST (5) Dementia with behavioral disturbance Code(s): F03.91 - UNSPECIFIED DEMENTIA WITH BEHAVIORAL DISTURBANCE Qualifiers: Dementia type: unspecified type Qualified Code(s): F03.91 - Unspecified dementia with behavioral disturbance (6) Calculus of gallbladder 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 Code(s): K80.67 - CALCULUS OF GB AND BILE DUCT W AC AND CHR CHOLECYST W OBST (7) Hypertension Code(s): I10 - ESSENTIAL (PRIMARY) HYPERTENSION Qualifiers: Hypertension type: essential hypertension Qualified Code(s): I10 - Essential (primary) hypertension Assessment/Plan having fever again. continue abx repeat cultures check labs today restart clinimix will follow discussed with nursing staff.
[2017-02-13 14:02] LABS: BASOPHIL 0.3 % (0-2.0); EOSINOPHIL 0.9 % (0-4.5); MCH 31.9 pg (25.7-33.7); MCHC 33.9 g/dl (32.0-35.9); MEAN CELL VOLUME 94.1 fl (80-96); MEAN PLT VOLUME 8.6 fl (7.5-11.1); NEUTROPHILS 84.2 % (42.8-82.8); PLATELET COUNT 271 K/MM3 (134-434); RDW 16.1 % (11.9-15.9); WHITE BLOOD COUNT 8.6 K/mm3 (4.0-10.0)
[2017-02-13] MEDS: AMINO ACIDS 4.25%/D5W 1,000 ML IV SCH (14:22)
[2017-02-13 14:34] LABS: ALBUMIN 1.7 g/dl (3.4-5.0); ALK PHOS 149 U/L (45-117); ANION GAP 6 (8-16); BILIRUBIN,TOTAL 2.5 mg/dL (0.2-1.0); CALCIUM 7.1 mg/dL (8.5-10.1); CO2 27 mmol/L (21-32); CREATININE 0.8 mg/dL (0.7-1.3); GLUCOSE,RANDOM 87 mg/dL (74-106); SGOT/AST 34 U/L (15-37); SGPT/ALT 43 U/L (12-78)
[2017-02-13 14:45] LABS: URINE APPEARANCE CLEAR; URINE BILIRUBIN NEGATIVE (NEGATIVE); URINE BLOOD 2+ (NEGATIVE); URINE COLOR DKYELLOW; URINE GLUCOSE (UA) NEGATIVE (NEGATIVE); URINE KETONE NEGATIVE (NEGATIVE); URINE NITRITE NEGATIVE (NEGATIVE); URINE UROBILINOGEN NEGATIVE mg/dL (0.2-1.0)
[2017-02-13 14:47] LABS: URINE PROTEIN 1+ (NEGATIVE)
[2017-02-13 14:48] LABS: GRANULAR CASTS 1 /lpf; URINE BACTERIA FEW /hpf (NONE SEEN); URINE MUCUS RARE; URINE RBC 111; URINE WBC 1
--- NOTE | 2017-02-13 17:00 | PN ---
Progress Note, Physician History of Present Illness: spiked a temp remaining stable post extubation more responsive - Current Medication List Current Medications: Active Medications Acetaminophen (Ofirmev Injection -) 1,000 mg IVPB Q6H PRN PRN Reason: FEVER OR PAIN Last Admin: 02/13/17 11:58 Dose: 1,000 mg Albuterol/Ipratropium (Duoneb -) 1 amp NEB Q4H PRN PRN Reason: SHORTNESS OF BREATH Artificial Tears (Artificial Tears) 1 drop OU HS [facility] Last Admin: 02/12/17 21:57 Dose: 1 drop Chlorhexidine Gluconate (Hibiclens For Decolonization -) 1 applic TP HS [facility] Last Admin: 02/12/17 21:54 Dose: 1 applic Heparin Sodium (Porcine) (Heparin -) 5,000 unit SQ TID [facility] Last Admin: 02/13/17 13:40 Dose: 5,000 unit Ampicillin Sodium 1 gm/ Sodium (Chloride) 100 mls @ 200 mls/hr IVPB Q6H-IV [facility] Last Admin: 02/13/17 14:25 Dose: 200 mls/hr Meropenem (Merrem (Restricted To Id) -) 1 gm in 20 mls @ 240 mls/hr IVPUSH BID [facility] Last Admin: 02/13/17 09:53 Dose: 240 mls/hr Amino Acids (Clinimix -) 1,000 mls @ 84 mls/hr IV Q12H [facility] Last Admin: 02/13/17 14:22 Dose: 84 mls/hr Metoprolol Tartrate (Lopressor -) 50 mg PO BID [facility] Last Admin: 02/13/17 09:53 Dose: Not Given Metoprolol Tartrate (Lopressor Injection -) 5 mg IVPUSH Q4H PRN PRN Reason: HYPERTENSION Last Admin: 02/13/17 09:52 Dose: 5 mg Pantoprazole Sodium (Protonix Iv) 40 mg IVPUSH DAILY [facility] Last Admin: 02/13/17 09:54 Dose: 40 mg - Objective Vital Signs: Vital Signs Temperature 98.4 F 02/13/17 16:00 Pulse Rate 72 02/13/17 16:00 Respiratory Rate 18 02/13/17 16:00 Blood Pressure 168/81 02/13/17 16:00 O2 Sat by Pulse Oximetry (%) 95 02/13/17 09:00 Constitutional: Yes: No Distress, Calm Cardiovascular: Yes: Regular Rate and Rhythm Respiratory: Yes: Regular, Rhonchi, Other (crackles) Gastrointestinal: Yes: Normal Bowel Sounds, Soft, Other Musculoskeletal: Yes: WNL Extremities: Yes: WNL Neurological: Yes: Alert Labs: CBC, BMP 02/13/17 13:45 02/13/17 13:45 INR, PTT INR 1.34 (0.82-1.09) H 02/03/17 06:00 Assessment/Plan Problem List - Problems (1) Calculus of gallbladder 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91 - Unspecified dementia with behavioral disturbance; F03.91 - Unspecified dementia with behavioral disturbance; F03.91 - Unspecified dementia with behavioral disturbance fever 6 gm negative bacteremia cx from the gb seen all cx noted plan watch for fevers await cx reports continue abx close watch continue as per icu cc time 40 min
[2017-02-13 20:05] LABS: URINE LEUK ESTERASE Negative (NEGATIVE)
[2017-02-13] MEDS: ARTIFICIAL TEARS (POLYVINYL ALCOHOL 1.4%) OPTH DROPS OU SCH (22:27)
[2017-02-13] MEDS: CHLORHEXIDINE GLUCONATE 4% CLEANSER FOR DECOLONIZATION TP SCH (22:28)
[2017-02-14] MEDS ORDERED: PT OWN MED DRAWER 7, Y5N ONE ×2 (00:43→21:57)
[2017-02-14] MEDS: AMINO ACIDS 4.25%/D5W 1,000 ML IV SCH ×2 (01:41→13:30)
[2017-02-14] MEDS: AMPICILLIN - 1 GM in SODIUM CHLORIDE 100 ML IVPB SCH ×4 (02:02→21:59)
[2017-02-14] MEDS: HEPARIN NA (PORCINE) 5,000 UNITS/ML 1ML VIAL SQ SCH ×3 (05:19→22:00)
[2017-02-14 07:12] LABS: BASOPHIL 0.7 % (0-2.0); EOSINOPHIL 2.6 % (0-4.5); MCH 31.9 pg (25.7-33.7); MCHC 33.4 g/dl (32.0-35.9); MEAN CELL VOLUME 95.7 fl (80-96); MEAN PLT VOLUME 8.1 fl (7.5-11.1); NEUTROPHILS 74.4 % (42.8-82.8); PLATELET COUNT 309 K/MM3 (134-434); RDW 16.2 % (11.9-15.9); WHITE BLOOD COUNT 8.3 K/mm3 (4.0-10.0)
[2017-02-14 07:41] LABS: ALBUMIN 1.9 g/dl (3.4-5.0); ALK PHOS 157 U/L (45-117); ANION GAP 7 (8-16); BILIRUBIN,TOTAL 2.2 mg/dL (0.2-1.0); CALCIUM 7.5 mg/dL (8.5-10.1); CO2 27 mmol/L (21-32); CREATININE 0.8 mg/dL (0.7-1.3); GLUCOSE,RANDOM 106 mg/dL (74-106); MAGNESIUM 2.1 mg/dL (1.8-2.4); PHOSPHOROUS 2.2 mg/dL (2.5-4.9); SGOT/AST 40 U/L (15-37); SGPT/ALT 50 U/L (12-78); TOT PROT 5.5 g/dl (6.4-8.2)
--- NOTE | 2017-02-14 09:24 | PN ---
Progress Note, Physician Chief Complaint: no distress - Current Medication List Current Medications: Active Medications Acetaminophen (Ofirmev Injection -) 1,000 mg IVPB Q6H PRN PRN Reason: FEVER OR PAIN Last Admin: 02/13/17 11:58 Dose: 1,000 mg Albuterol/Ipratropium (Duoneb -) 1 amp NEB Q4H PRN PRN Reason: SHORTNESS OF BREATH Artificial Tears (Artificial Tears) 1 drop OU HS [facility] Last Admin: 02/13/17 22:27 Dose: 1 drop Chlorhexidine Gluconate (Hibiclens For Decolonization -) 1 applic TP HS [facility] Last Admin: 02/13/17 22:28 Dose: Not Given Heparin Sodium (Porcine) (Heparin -) 5,000 unit SQ TID [facility] Last Admin: 02/14/17 05:19 Dose: 5,000 unit Ampicillin Sodium 1 gm/ Sodium (Chloride) 100 mls @ 200 mls/hr IVPB Q6H-IV [facility] Last Admin: 02/14/17 02:02 Dose: 200 mls/hr Meropenem (Merrem (Restricted To Id) -) 1 gm in 20 mls @ 240 mls/hr IVPUSH BID [facility] Last Admin: 02/13/17 22:47 Dose: 240 mls/hr Amino Acids (Clinimix -) 1,000 mls @ 84 mls/hr IV Q12H [facility] Last Admin: 02/14/17 01:41 Dose: 84 mls/hr Metoprolol Tartrate (Lopressor -) 50 mg PO BID [facility] Last Admin: 02/13/17 21:41 Dose: Not Given Metoprolol Tartrate (Lopressor Injection -) 5 mg IVPUSH Q4H PRN PRN Reason: HYPERTENSION Last Admin: 02/13/17 09:52 Dose: 5 mg Pantoprazole Sodium (Protonix Iv) 40 mg IVPUSH DAILY [facility] Last Admin: 02/13/17 09:54 Dose: 40 mg - Objective Vital Signs: Vital Signs Temperature 97.9 F 02/14/17 06:00 Pulse Rate 88 02/14/17 06:00 Respiratory Rate 20 02/14/17 06:00 Blood Pressure 140/66 02/14/17 06:00 O2 Sat by Pulse Oximetry (%) 99 02/13/17 22:00 Cardiovascular: Yes: Regular Rate and Rhythm Respiratory: Yes: Other (b/l rhonchi) Gastrointestinal: Yes: Soft Edema: No Labs: CBC, BMP 02/14/17 06:30 02/14/17 06:30 INR, PTT INR 1.34 (0.82-1.09) H 02/03/17 06:00 Laboratory Tests 02/14/17 02/14/17 06:30 06:30 WBC 8.3 Hgb 9.3 L D Plt Count 309 Sodium 143 Potassium 4.2 Creatinine 0.8 - ....Imaging EKG: Other (TELE: NSr, rare VPCs) Assessment/Plan Assessment/Plan Sepsis, Klebsiella in blood, Ecoli/enterococcus from cholecystostomy Choledocholithiasis, s/p perc. cholecystostomy ASHD Acute respiratory failure s/p intubation HTN REC: -CK/Troponin mildly elevated in setting of septic shock and BERTA -Probable chronic underlying CAD based on EKG but this does not appear to be ACS /NSTEMI -Echo showed normal LV systolic function -Frequent PVCs, short episodes of NSVT, brief episodes PSVT on tele, improved with bblocker
[2017-02-14] MEDS: METOPROLOL TARTRATE 50 MG TABLET (FP) PO SCH ×2 (09:27→22:00)
--- NOTE | 2017-02-14 10:07 | PN ---
Progress Note (short form) - Note Progress Note: pt seen/ examined condition same comfortable no distress Vital Signs Temp 99.1 F 02/14/17 09:18 Pulse 87 02/14/17 09:18 Resp 18 02/14/17 09:18 BP 145/68 02/14/17 09:18 Pulse Ox 99 02/13/17 22:00 Intake & Output 02/13/17 02/13/17 02/14/17 11:59 23:59 11:59 Intake Total 1234 780 394 Output Total 1440 1380 540 Balance -206 -600 -146 Weight 166 lb 4 oz 160 lb Intake: IV 834 460 294 Clinimix 834 460 294 IVPB 400 320 100 Oral 0 Output: Drainage 340 180 140 Right Abdomen 340 180 140 Urine 1100 1200 400 Bar 1100 1200 400 Other: Voiding Method Indwelling Catheter Indwelling Catheter Bowel Movement Yes No No # Bowel Movements 1 1 Weight Measurement Method Built in Bedscale Patient Lift Scale CBC, BMP 02/14/17 06:30 02/14/17 06:30 Active Medications Acetaminophen (Ofirmev Injection -) 1,000 mg IVPB Q6H PRN PRN Reason: FEVER OR PAIN Last Admin: 02/13/17 11:58 Dose: 1,000 mg Albuterol/Ipratropium (Duoneb -) 1 amp NEB Q4H PRN PRN Reason: SHORTNESS OF BREATH Artificial Tears (Artificial Tears) 1 drop OU HS [facility] Last Admin: 02/13/17 22:27 Dose: 1 drop Chlorhexidine Gluconate (Hibiclens For Decolonization -) 1 applic TP HS [facility] Last Admin: 02/13/17 22:28 Dose: Not Given Heparin Sodium (Porcine) (Heparin -) 5,000 unit SQ TID [facility] Last Admin: 02/14/17 05:19 Dose: 5,000 unit Ampicillin Sodium 1 gm/ Sodium (Chloride) 100 mls @ 200 mls/hr IVPB Q6H-IV [facility] Last Admin: 02/14/17 09:27 Dose: 200 mls/hr Meropenem (Merrem (Restricted To Id) -) 1 gm in 20 mls @ 240 mls/hr IVPUSH BID [facility] Last Admin: 02/13/17 22:47 Dose: 240 mls/hr Amino Acids (Clinimix -) 1,000 mls @ 84 mls/hr IV Q12H [facility] Last Admin: 02/14/17 01:41 Dose: 84 mls/hr Metoprolol Tartrate (Lopressor -) 50 mg PO BID [facility] Last Admin: 02/14/17 09:27 Dose: Not Given Metoprolol Tartrate (Lopressor Injection -) 5 mg IVPUSH Q4H PRN PRN Reason: HYPERTENSION Last Admin: 02/13/17 09:52 Dose: 5 mg Pantoprazole Sodium (Protonix Iv) 40 mg IVPUSH DAILY [facility] Last Admin: 02/13/17 09:54 Dose: 40 mg Physical Exam. Constitutional: Yes: No Distress, comfortable. Cardiovascular: Yes: Regular Rate and Rhythm. Respiratory: Yes: Diminished at bases Gastrointestinal: Yes: Normal Bowel Sounds, Soft, Other (CARMELITA drain). No: Distention, Tenderness Edema: LLE: Trace, RLE: Trace. Neuro- awake. Problem List - Problems (1) Severe sepsis Code(s): A41.9 - SEPSIS, UNSPECIFIED ORGANISM; R65.20 - SEVERE SEPSIS WITHOUT SEPTIC SHOCK (2) Elevated liver function tests Code(s): R79.89 - OTHER SPECIFIED ABNORMAL FINDINGS OF BLOOD CHEMISTRY (3) Cholangitis due to bile duct calculus with obstruction Code(s): K80.31 - CALCULUS OF BILE DUCT W CHOLANGITIS, UNSP, WITH OBSTRUCTION (4) Choledocholithiasis with obstruction Code(s): K80.51 - CALCULUS OF BILE DUCT W/O CHOLANGITIS OR CHOLECYST W OBST (5) Dementia with behavioral disturbance Code(s): F03.91 - UNSPECIFIED DEMENTIA WITH BEHAVIORAL DISTURBANCE Qualifiers: Dementia type: unspecified type Qualified Code(s): F03.91 - Unspecified dementia with behavioral disturbance (6) Calculus of gallbladder 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 Code(s): K80.67 - CALCULUS OF GB AND BILE DUCT W AC AND CHR CHOLECYST W OBST (7) Hypertension Code(s): I10 - ESSENTIAL (PRIMARY) HYPERTENSION Qualifiers: Hypertension type: essential hypertension Qualified Code(s): I10 - Essential (primary) hypertension Assessment/Plan stable continue abx f/u cultures will follow discussed with nursing staff.
[2017-02-14] MEDS: PANTOPRAZOLE SODIUM 40 MG VIAL IVPUSH SCH (10:29)
[2017-02-14] MEDS: MEROPENEM 1 GM PUSH 1 GM/20 ML DISP.SYRIN IVPUSH SCH ×2 (10:29→22:00)
--- NOTE | 2017-02-14 14:05 | PN ---
Progress Note, Physician History of Present Illness: stable no new events - Current Medication List Current Medications: Active Medications Acetaminophen (Ofirmev Injection -) 1,000 mg IVPB Q6H PRN PRN Reason: FEVER OR PAIN Last Admin: 02/13/17 11:58 Dose: 1,000 mg Albuterol/Ipratropium (Duoneb -) 1 amp NEB Q4H PRN PRN Reason: SHORTNESS OF BREATH Artificial Tears (Artificial Tears) 1 drop OU HS [facility] Last Admin: 02/13/17 22:27 Dose: 1 drop Chlorhexidine Gluconate (Hibiclens For Decolonization -) 1 applic TP HS [facility] Last Admin: 02/13/17 22:28 Dose: Not Given Heparin Sodium (Porcine) (Heparin -) 5,000 unit SQ TID [facility] Last Admin: 02/14/17 05:19 Dose: 5,000 unit Ampicillin Sodium 1 gm/ Sodium (Chloride) 100 mls @ 200 mls/hr IVPB Q6H-IV [facility] Last Admin: 02/14/17 09:27 Dose: 200 mls/hr Meropenem (Merrem (Restricted To Id) -) 1 gm in 20 mls @ 240 mls/hr IVPUSH BID [facility] Last Admin: 02/14/17 10:29 Dose: 240 mls/hr Amino Acids (Clinimix -) 1,000 mls @ 84 mls/hr IV Q12H [facility] Last Admin: 02/14/17 01:41 Dose: 84 mls/hr Metoprolol Tartrate (Lopressor -) 50 mg PO BID [facility] Last Admin: 02/14/17 09:27 Dose: Not Given Metoprolol Tartrate (Lopressor Injection -) 5 mg IVPUSH Q4H PRN PRN Reason: HYPERTENSION Last Admin: 02/13/17 09:52 Dose: 5 mg Pantoprazole Sodium (Protonix Iv) 40 mg IVPUSH DAILY [facility] Last Admin: 02/14/17 10:29 Dose: 40 mg - Objective Vital Signs: Vital Signs Temperature 99.1 F 02/14/17 09:18 Pulse Rate 87 02/14/17 09:18 Respiratory Rate 18 02/14/17 09:18 Blood Pressure 145/68 02/14/17 09:18 O2 Sat by Pulse Oximetry (%) 99 02/13/17 22:00 Constitutional: Yes: No Distress, Calm Cardiovascular: Yes: Regular Rate and Rhythm Respiratory: Yes: Regular, On Nasal O2 Gastrointestinal: Yes: Normal Bowel Sounds, Soft, Other (choley in place) Musculoskeletal: Yes: WNL Extremities: Yes: WNL Neurological: Yes: Alert, Other Psychiatric: Yes: Other Labs: CBC, BMP 02/14/17 06:30 02/14/17 06:30 INR, PTT INR 1.34 (0.82-1.09) H 02/03/17 06:00 Assessment/Plan Problem List - Problems (1) Calculus of gallbladder 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91 - Unspecified dementia with behavioral disturbance; F03.91 - Unspecified dementia with behavioral disturbance; F03.91 - Unspecified dementia with behavioral disturbance fever 6 gm negative bacteremia cx from the gb seen all cx noted plan watch for fevers cx reports noted continue abx close watch
--- NOTE | 2017-02-14 16:20 | PN ---
Progress Note (short form) - Note Progress Note: PULMONARY Pt nonverbal, appears comfortable. Last Vital Signs Temp Pulse Resp BP Pulse Ox 98.1 F 84 20 158/76 99 02/14/17 14:20 02/14/17 14:20 02/14/17 14:20 02/14/17 14:20 02/13/17 22:00 Gen: NAD at rest Heart: RRR Lung: scattered rhonchi Abd: soft, nontender, +cholecystostomy tube Ext: no edema CBC, BMP 02/14/17 06:30 02/14/17 06:30 Active Medications Acetaminophen (Ofirmev Injection -) 1,000 mg IVPB Q6H PRN PRN Reason: FEVER OR PAIN Last Admin: 02/13/17 11:58 Dose: 1,000 mg Albuterol/Ipratropium (Duoneb -) 1 amp NEB Q4H PRN PRN Reason: SHORTNESS OF BREATH Artificial Tears (Artificial Tears) 1 drop OU HS [facility] Last Admin: 02/13/17 22:27 Dose: 1 drop Chlorhexidine Gluconate (Hibiclens For Decolonization -) 1 applic TP HS [facility] Last Admin: 02/13/17 22:28 Dose: Not Given Heparin Sodium (Porcine) (Heparin -) 5,000 unit SQ TID [facility] Last Admin: 02/14/17 14:35 Dose: 5,000 unit Ampicillin Sodium 1 gm/ Sodium (Chloride) 100 mls @ 200 mls/hr IVPB Q6H-IV [facility] Last Admin: 02/14/17 14:35 Dose: 200 mls/hr Meropenem (Merrem (Restricted To Id) -) 1 gm in 20 mls @ 240 mls/hr IVPUSH BID [facility] Last Admin: 02/14/17 10:29 Dose: 240 mls/hr Amino Acids (Clinimix -) 1,000 mls @ 84 mls/hr IV Q12H [facility] Last Admin: 02/14/17 13:30 Dose: Not Given Metoprolol Tartrate (Lopressor -) 50 mg PO BID [facility] Last Admin: 02/14/17 09:27 Dose: Not Given Metoprolol Tartrate (Lopressor Injection -) 5 mg IVPUSH Q4H PRN PRN Reason: HYPERTENSION Last Admin: 02/13/17 09:52 Dose: 5 mg Pantoprazole Sodium (Protonix Iv) 40 mg IVPUSH DAILY [facility] Last Admin: 02/14/17 10:29 Dose: 40 mg A/P s/p Acute Hypoxic Respiratory Failure Cholangitis Klebsiella Bacteremia s/p Cholecystostomy placement Severe Sepsis improving Acute Kidney Injury improving Anemia - continue antibiotics per ID - monitor urine output, creatinine - taper FiO2 to keep Spo2 >90% - PO per GI - aspiration precautions - DVT/GI prophylaxis
[2017-02-14] MEDS: CHLORHEXIDINE GLUCONATE 4% CLEANSER FOR DECOLONIZATION TP SCH (22:00)
[2017-02-14] MEDS: ARTIFICIAL TEARS (POLYVINYL ALCOHOL 1.4%) OPTH DROPS OU SCH (22:16)
[2017-02-15] MEDS ORDERED: PT OWN MED DRAWER 7, Y5N ONE ×3 (04:08→21:16)
[2017-02-15] MEDS: AMPICILLIN - 1 GM in SODIUM CHLORIDE 100 ML IVPB SCH ×4 (04:10→21:34)
[2017-02-15] MEDS: AMINO ACIDS 4.25%/D5W 1,000 ML IV SCH ×2 (04:10→16:17)
[2017-02-15] MEDS: HEPARIN NA (PORCINE) 5,000 UNITS/ML 1ML VIAL SQ SCH ×3 (05:27→21:34)
[2017-02-15] MEDS: ACETAMINOPHEN 1000 MG/100 ML VIAL (NON FORMULARY) IVPB PRN (05:45)
[2017-02-15] MEDS: METOPROLOL TARTRATE 50 MG TABLET (FP) PO SCH ×2 (10:29→21:18)
--- NOTE | 2017-02-15 10:40 | PN ---
Progress Note (short form) - Note Progress Note: pt seen/ examined. comfortable no distress currently npo- on clinimix low grade temp recent cultures -ve all f/u noted Vital Signs Temp 98.0 F 02/15/17 09:45 Pulse 84 02/15/17 09:45 Resp 20 02/15/17 09:45 BP 136/82 02/15/17 09:45 Pulse Ox 97 02/15/17 09:00 Intake & Output 02/14/17 02/14/17 02/15/17 11:59 23:59 11:59 Intake Total 394 1670 788 Output Total 540 1315 810 Balance -146 355 -22 Weight 160 lb Intake: IV 294 1370 588 Clinimix 294 1370 588 IVPB 100 300 200 Oral 0 Output: Drainage 140 215 110 Right Abdomen 140 215 110 Urine 400 1100 700 Davila 400 1100 700 Other: Voiding Method Indwelling Catheter Indwelling Catheter Indwelling Catheter Bowel Movement No No Weight Measurement Method Patient Lift Scale CBC, BMP 02/14/17 06:30 02/14/17 06:30 Microbiology 02/13/17 12:00 Blood Culture - Preliminary Blood - Peripheral Venous NO GROWTH OBTAINED AFTER 24 HOURS, INCUBATION TO CONTINUE FOR 4 DAYS. 02/13/17 11:30 Blood Culture - Preliminary Blood - Peripheral Venous NO GROWTH OBTAINED AFTER 24 HOURS, INCUBATION TO CONTINUE FOR 4 DAYS. 02/13/17 12:30 Urine Culture - Final Urine - Urine - Catheterized NO GROWTH OBTAINED Active Medications Acetaminophen (Ofirmev Injection -) 1,000 mg IVPB Q6H PRN PRN Reason: FEVER OR PAIN Last Admin: 02/15/17 05:45 Dose: 1,000 mg Albuterol/Ipratropium (Duoneb -) 1 amp NEB Q4H PRN PRN Reason: SHORTNESS OF BREATH Artificial Tears (Artificial Tears) 1 drop OU HS [facility] Last Admin: 02/14/17 22:16 Dose: 1 drop Chlorhexidine Gluconate (Hibiclens For Decolonization -) 1 applic TP HS [facility] Last Admin: 02/14/17 22:00 Dose: Not Given Heparin Sodium (Porcine) (Heparin -) 5,000 unit SQ TID [facility] Last Admin: 02/15/17 05:27 Dose: 5,000 unit Ampicillin Sodium 1 gm/ Sodium (Chloride) 100 mls @ 200 mls/hr IVPB Q6H-IV [facility] Last Admin: 02/15/17 09:48 Dose: 200 mls/hr Meropenem (Merrem (Restricted To Id) -) 1 gm in 20 mls @ 240 mls/hr IVPUSH BID [facility] Last Admin: 02/14/17 22:00 Dose: 240 mls/hr Amino Acids (Clinimix -) 1,000 mls @ 84 mls/hr IV Q12H [facility] Last Admin: 02/15/17 04:10 Dose: 84 mls/hr Metoprolol Tartrate (Lopressor -) 50 mg PO BID [facility] Last Admin: 02/15/17 10:29 Dose: Not Given Metoprolol Tartrate (Lopressor Injection -) 5 mg IVPUSH Q4H PRN PRN Reason: HYPERTENSION Last Admin: 02/13/17 09:52 Dose: 5 mg Pantoprazole Sodium (Protonix Iv) 40 mg IVPUSH DAILY [facility] Last Admin: 02/14/17 10:29 Dose: 40 mg Physical Exam. Constitutional: Yes: No Distress, comfortable. Cardiovascular: Yes: Regular Rate and Rhythm. Respiratory: Yes: Diminished at bases Gastrointestinal: Yes: Normal Bowel Sounds, Soft, Other (CARMELITA drain). No: Distention, Tenderness Edema: LLE: Trace, RLE: Trace. Neuro- awake. Problem List - Problems (1) Severe sepsis Code(s): A41.9 - SEPSIS, UNSPECIFIED ORGANISM; R65.20 - SEVERE SEPSIS WITHOUT SEPTIC SHOCK (2) Elevated liver function tests Code(s): R79.89 - OTHER SPECIFIED ABNORMAL FINDINGS OF BLOOD CHEMISTRY (3) Cholangitis due to bile duct calculus with obstruction Code(s): K80.31 - CALCULUS OF BILE DUCT W CHOLANGITIS, UNSP, WITH OBSTRUCTION (4) Choledocholithiasis with obstruction Code(s): K80.51 - CALCULUS OF BILE DUCT W/O CHOLANGITIS OR CHOLECYST W OBST (5) Dementia with behavioral disturbance Code(s): F03.91 - UNSPECIFIED DEMENTIA WITH BEHAVIORAL DISTURBANCE Qualifiers: Dementia type: unspecified type Qualified Code(s): F03.91 - Unspecified dementia with behavioral disturbance (6) Calculus of gallbladder 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 Code(s): K80.67 - CALCULUS OF GB AND BILE DUCT W AC AND CHR CHOLECYST W OBST (7) Hypertension Code(s): I10 - ESSENTIAL (PRIMARY) HYPERTENSION Qualifiers: Hypertension type: essential hypertension Qualified Code(s): I10 - Essential (primary) hypertension Assessment/Plan sepsis-- resolving klebsiella bactremia repeat cultures -ve s/p Acute Hypoxic Respiratory Failure Cholangitis-- s/p cholectostomy Klebsiella Bacteremia s/p Acute Renal failure-- better Anemia - continue antibiotics per ID - d/c davila for voiding trial - continue clinimxi for now - reconsult for swallowing eval - may need peg - will discuss with family - gi to follow - f/u labs - condition improved but remains gaurded.
[2017-02-15] MEDS: PANTOPRAZOLE SODIUM 40 MG VIAL IVPUSH SCH (10:42)
[2017-02-15] MEDS: MEROPENEM 1 GM PUSH 1 GM/20 ML DISP.SYRIN IVPUSH SCH ×2 (10:43→21:33)
--- NOTE | 2017-02-15 11:14 | PN ---
Progress Note, Physician History of Present Illness: seen and examined today in nad. awake and alert but not speaking. no reported overnight events or new complaints. - Current Medication List Current Medications: Active Medications Acetaminophen (Ofirmev Injection -) 1,000 mg IVPB Q6H PRN PRN Reason: FEVER OR PAIN Last Admin: 02/15/17 05:45 Dose: 1,000 mg Albuterol/Ipratropium (Duoneb -) 1 amp NEB Q4H PRN PRN Reason: SHORTNESS OF BREATH Artificial Tears (Artificial Tears) 1 drop OU HS [facility] Last Admin: 02/14/17 22:16 Dose: 1 drop Chlorhexidine Gluconate (Hibiclens For Decolonization -) 1 applic TP HS [facility] Last Admin: 02/14/17 22:00 Dose: Not Given Heparin Sodium (Porcine) (Heparin -) 5,000 unit SQ TID [facility] Last Admin: 02/15/17 05:27 Dose: 5,000 unit Ampicillin Sodium 1 gm/ Sodium (Chloride) 100 mls @ 200 mls/hr IVPB Q6H-IV [facility] Last Admin: 02/15/17 09:48 Dose: 200 mls/hr Meropenem (Merrem (Restricted To Id) -) 1 gm in 20 mls @ 240 mls/hr IVPUSH BID [facility] Last Admin: 02/14/17 22:00 Dose: 240 mls/hr Amino Acids (Clinimix -) 1,000 mls @ 84 mls/hr IV Q12H [facility] Last Admin: 02/15/17 04:10 Dose: 84 mls/hr Metoprolol Tartrate (Lopressor -) 50 mg PO BID [facility] Last Admin: 02/15/17 10:29 Dose: Not Given Metoprolol Tartrate (Lopressor Injection -) 5 mg IVPUSH Q4H PRN PRN Reason: HYPERTENSION Last Admin: 02/13/17 09:52 Dose: 5 mg Pantoprazole Sodium (Protonix Iv) 40 mg IVPUSH DAILY [facility] Last Admin: 02/14/17 10:29 Dose: 40 mg - Objective Vital Signs: Vital Signs Temperature 98.0 F 02/15/17 09:45 Pulse Rate 84 02/15/17 09:45 Respiratory Rate 20 02/15/17 09:45 Blood Pressure 136/82 02/15/17 09:45 O2 Sat by Pulse Oximetry (%) 97 11/13/17 09:00 Constitutional: Yes: No Distress, Calm Eyes: Yes: Conjunctiva Clear, EOM Intact HENT: Yes: Atraumatic, Normocephalic Neck: Yes: Supple, Trachea Midline Cardiovascular: Yes: Regular Rate and Rhythm, S1, S2. No: Bradycardia, Tachycardia, Pulse Irregular, Bruit, JVD, Gallop, Murmur, Rub, S3, S4, Varicosities Respiratory: Yes: Regular, Diminished. No: Rales, Rhonchi, Wheezes Gastrointestinal: Yes: Normal Bowel Sounds, Soft. No: Distention, Tenderness Extremities: Yes: WNL Edema: No Peripheral Pulses WNL: Yes Peripheral Pulses: Left Doralis Pedis: 2+, Right Dorsalis Pedis: 2+ Neurological: Yes: Alert Psychiatric: Yes: Alert Labs: CBC, BMP 02/14/17 06:30 02/14/17 06:30 INR, PTT INR 1.34 (0.82-1.09) H 02/03/17 06:00 - ....Imaging Chest X-ray: Report Reviewed, Image Reviewed EKG: Report Reviewed, Image Reviewed Other: Report Reviewed, Image Reviewed (tele-nsr, frequent pvcs, no sig arrhythmias) Assessment/Plan Sepsis, Klebsiella in blood, Ecoli/enterococcus from cholecystostomy Choledocholithiasis, s/p perc. cholecystostomy ASHD Acute respiratory failure s/p intubation HTN REC: -HTN adequately controlled, cont metoprolol -Probable chronic underlying CAD based on EKG but this does not appear to be ACS /NSTEMI -Echo showed normal LV systolic function -Frequent PVCs, short episodes of NSVT, brief episodes PSVT on tele, improved with bblocker -no significant arrhythmias on tele in past 24 hours -agree with palliative care evaluation -if no arrhythmias on tele in next 24 hours can likely dc tele
--- NOTE | 2017-02-15 13:00 | PN ---
Progress Note, Physician History of Present Illness: PULMONARY ALERT,NON-VERBAL,-RESP DISTRESS,MILD CONGESTION - Current Medication List Current Medications: Active Medications Acetaminophen (Ofirmev Injection -) 1,000 mg IVPB Q6H PRN PRN Reason: FEVER OR PAIN Last Admin: 02/15/17 05:45 Dose: 1,000 mg Albuterol/Ipratropium (Duoneb -) 1 amp NEB Q4H PRN PRN Reason: SHORTNESS OF BREATH Artificial Tears (Artificial Tears) 1 drop OU HS [facility] Last Admin: 02/14/17 22:16 Dose: 1 drop Chlorhexidine Gluconate (Hibiclens For Decolonization -) 1 applic TP HS [facility] Last Admin: 02/14/17 22:00 Dose: Not Given Heparin Sodium (Porcine) (Heparin -) 5,000 unit SQ TID [facility] Last Admin: 02/15/17 05:27 Dose: 5,000 unit Ampicillin Sodium 1 gm/ Sodium (Chloride) 100 mls @ 200 mls/hr IVPB Q6H-IV [facility] Last Admin: 02/15/17 09:48 Dose: 200 mls/hr Meropenem (Merrem (Restricted To Id) -) 1 gm in 20 mls @ 240 mls/hr IVPUSH BID [facility] Last Admin: 02/15/17 10:43 Dose: 240 mls/hr Amino Acids (Clinimix -) 1,000 mls @ 84 mls/hr IV Q12H [facility] Last Admin: 02/15/17 04:10 Dose: 84 mls/hr Metoprolol Tartrate (Lopressor -) 50 mg PO BID [facility] Last Admin: 02/15/17 10:29 Dose: Not Given Metoprolol Tartrate (Lopressor Injection -) 5 mg IVPUSH Q4H PRN PRN Reason: HYPERTENSION Last Admin: 02/13/17 09:52 Dose: 5 mg Pantoprazole Sodium (Protonix Iv) 40 mg IVPUSH DAILY [facility] Last Admin: 02/15/17 10:42 Dose: 40 mg - Objective Vital Signs: Vital Signs Temperature 98.0 F 02/15/17 09:45 Pulse Rate 84 02/15/17 09:45 Respiratory Rate 20 02/15/17 09:45 Blood Pressure 136/82 02/15/17 09:45 O2 Sat by Pulse Oximetry (%) 99 02/15/17 12:30 Constitutional: Yes: Well Nourished, Calm Eyes: Yes: WNL HENT: Yes: WNL Neck: Yes: WNL Cardiovascular: Yes: Regular Rate and Rhythm, S1, S2 Respiratory: Yes: Rhonchi (FEW SCATTERED RHONCHI) Gastrointestinal: Yes: Normal Bowel Sounds, Soft Extremities: Yes: WNL, Cool Edema: Yes Labs: Problem List - Problems (1) JUAN J (acute kidney injury) Code(s): N17.9 - ACUTE KIDNEY FAILURE, UNSPECIFIED (2) Acute cholangitis due to calculus of bile duct with obstruction Code(s): K80.37 - CALCULUS OF BILE DUCT W ACUTE AND CHRONIC CHOLANGITIS W OBST (3) Klebsiella pneumoniae sepsis Code(s): A41.4 - SEPSIS DUE TO ANAEROBES (4) Sepsis due to Gram-negative organism with acute respiratory failure Code(s): A41.50 - GRAM-NEGATIVE SEPSIS, UNSPECIFIED; R65.20 - SEVERE SEPSIS WITHOUT SEPTIC SHOCK; J96.00 - ACUTE RESPIRATORY FAILURE, UNSP W HYPOXIA OR HYPERCAPNIA (5) Severe sepsis Code(s): A41.9 - SEPSIS, UNSPECIFIED ORGANISM; R65.20 - SEVERE SEPSIS WITHOUT SEPTIC SHOCK Assessment/Plan A/P s/p Acute Hypoxic Respiratory Failure Cholangitis Klebsiella Bacteremia s/p Cholecystostomy placement Severe Sepsis improving Acute Kidney Injury improving Anemia - continue antibiotics per ID - monitor urine output, creatinine - FiO2 to keep Spo2 >90% - aspiration precautions - DVT/GI prophylaxis DR YOUNG
--- NOTE | 2017-02-15 15:09 | PN ---
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 Opens eyes to name. Attempted to trial pt with applesauce. Pt began vocalizing, sealing lips, shaking head. I tried a few times. Voice is more euphonic. Selected Entries 02/14/17 02/14/17 02/14/17 01:58 06:00 09:18 Breakfast Temperature 98.1 F 97.9 F 99.1 F 02/14/17 02/14/17 02/14/17 14:20 18:00 21:00 Breakfast Temperature 98.1 F 98.3 F 98.4 F 02/15/17 02/15/17 02/15/17 02:00 05:45 09:45 Breakfast Temperature 97.7 F 100.0 F H 98.0 F 02/15/17 02/15/17 10:38 13:52 Breakfast NPO Temperature 97.8 F Laboratory Tests 02/13/17 02/14/17 13:45 06:30 WBC 8.6 8.3 May try again with family present, however, I suspect prognosis is poor for PO acceptance. Medical/Palliative care notes reviewed. F/u to reassess. Comfort care/hospice/TF
--- NOTE | 2017-02-15 15:13 | PN ---
Progress Note, Physician History of Present Illness: Pt seen and examined at bedside. He is still on clinimix. Pt is now in the medical [facility]. - Current Medication List Current Medications: Active Medications Acetaminophen (Ofirmev Injection -) 1,000 mg IVPB Q6H PRN PRN Reason: FEVER OR PAIN Last Admin: 02/15/17 05:45 Dose: 1,000 mg Albuterol/Ipratropium (Duoneb -) 1 amp NEB Q4H PRN PRN Reason: SHORTNESS OF BREATH Artificial Tears (Artificial Tears) 1 drop OU HS [facility] Last Admin: 02/14/17 22:16 Dose: 1 drop Chlorhexidine Gluconate (Hibiclens For Decolonization -) 1 applic TP HS [facility] Last Admin: 02/14/17 22:00 Dose: Not Given Heparin Sodium (Porcine) (Heparin -) 5,000 unit SQ TID [facility] Last Admin: 02/15/17 05:27 Dose: 5,000 unit Ampicillin Sodium 1 gm/ Sodium (Chloride) 100 mls @ 200 mls/hr IVPB Q6H-IV [facility] Last Admin: 02/15/17 09:48 Dose: 200 mls/hr Meropenem (Merrem (Restricted To Id) -) 1 gm in 20 mls @ 240 mls/hr IVPUSH BID [facility] Last Admin: 02/15/17 10:43 Dose: 240 mls/hr Amino Acids (Clinimix -) 1,000 mls @ 84 mls/hr IV Q12H [facility] Last Admin: 02/15/17 04:10 Dose: 84 mls/hr Metoprolol Tartrate (Lopressor -) 50 mg PO BID [facility] Last Admin: 02/15/17 10:29 Dose: Not Given Metoprolol Tartrate (Lopressor Injection -) 5 mg IVPUSH Q4H PRN PRN Reason: HYPERTENSION Last Admin: 02/13/17 09:52 Dose: 5 mg Pantoprazole Sodium (Protonix Iv) 40 mg IVPUSH DAILY [facility] Last Admin: 02/15/17 10:42 Dose: 40 mg - Objective Vital Signs: Vital Signs Temperature 97.8 F 02/15/17 13:52 Pulse Rate 78 02/15/17 13:52 Respiratory Rate 18 02/15/17 13:52 Blood Pressure 164/85 02/15/17 13:52 O2 Sat by Pulse Oximetry (%) 99 02/15/17 12:30 Constitutional: Yes: Calm Eyes: Yes: Conjunctiva Clear HENT: Yes: Atraumatic Cardiovascular: Yes: S1, S2 Respiratory: Yes: On Nasal O2, Rhonchi Gastrointestinal: Yes: Soft, Other (cholecystostomy tube) Genitourinary: Yes: Bar Present Musculoskeletal: Yes: WNL Edema: No Neurological: Yes: Confusion Labs: CBC, BMP 02/14/17 06:30 02/14/17 06:30 INR, PTT INR 1.34 (0.82-1.09) H 02/03/17 06:00 Problem List - Problems (1) Hypertension Code(s): I10 - ESSENTIAL (PRIMARY) HYPERTENSION Qualifiers: Hypertension type: essential hypertension Qualified Code(s): I10 - Essential (primary) hypertension (2) Acute cholangitis due to calculus of bile duct with obstruction Code(s): K80.37 - CALCULUS OF BILE DUCT W ACUTE AND CHRONIC CHOLANGITIS W OBST (3) JUAN J (acute kidney injury) Code(s): N17.9 - ACUTE KIDNEY FAILURE, UNSPECIFIED Assessment/Plan Current Medications Generic Name Dose Route Start Last Admin Trade Name Freq PRN Reason Stop Dose Admin Acetaminophen 1,000 mg 02/13/17 11:14 02/15/17 05:45 Ofirmev Injection - IVPB 1,000 mg Q6H PRN Administration FEVER OR PAIN Albuterol/Ipratropium 1 amp 02/12/17 18:46 Duoneb - NEB Q4H PRN SHORTNESS OF BREATH Artificial Tears 1 drop 02/12/17 22:00 02/14/17 22:16 Artificial Tears OU 1 drop HS [facility] Administration Chlorhexidine Gluconate 1 applic 02/12/17 22:00 02/14/17 22:00 Hibiclens For Decolonization - TP Not Given HS [facility] Heparin Sodium (Porcine) 5,000 unit 02/12/17 22:00 02/15/17 05:27 Heparin - SQ 5,000 unit TID [facility] Administration Ampicillin Sodium 1 gm/ Sodium 100 mls @ 200 mls/hr 02/12/17 21:00 02/15/17 09:48 Chloride IVPB 200 mls/hr Q6H-IV [facility] Administration Meropenem 1 gm in 20 mls @ 240 mls/hr 02/12/17 22:00 02/15/17 10:43 Merrem (Restricted To Id) - IVPUSH 240 mls/hr BID [facility] Administration Amino Acids 1,000 mls @ 84 mls/hr 02/13/17 13:30 02/15/17 04:10 Clinimix - IV 84 mls/hr Q12H [facility] Administration Metoprolol Tartrate 50 mg 02/12/17 22:00 02/15/17 10:29 Lopressor - PO Not Given BID [facility] Metoprolol Tartrate 5 mg 02/12/17 18:46 02/13/17 09:52 Lopressor Injection - IVPUSH 5 mg Q4H PRN Administration HYPERTENSION Pantoprazole Sodium 40 mg 02/13/17 10:00 02/15/17 10:42 Protonix Iv IVPUSH 40 mg DAILY [facility] Administration Impression 1. JUAN J 2. acute resp failure 3. sepsis 4. bacteremia 5. alzheimers 6. anemia 7. choledocholithiasis 8. hypernatremia 9. hypokalemia Plan - cont clinimix while NPO - renal function stable - sodium stable - monitor lytes - GI follow up - cholecystostomy care - monitor output from drain - will follow - surgery follow up Dr Haynes
--- NOTE | 2017-02-15 16:06 | PN ---
Progress Note, Physician History of Present Illness: still a bit lethargic responding - Current Medication List Current Medications: Active Medications Acetaminophen (Ofirmev Injection -) 1,000 mg IVPB Q6H PRN PRN Reason: FEVER OR PAIN Last Admin: 02/15/17 05:45 Dose: 1,000 mg Albuterol/Ipratropium (Duoneb -) 1 amp NEB Q4H PRN PRN Reason: SHORTNESS OF BREATH Artificial Tears (Artificial Tears) 1 drop OU HS [facility] Last Admin: 02/14/17 22:16 Dose: 1 drop Chlorhexidine Gluconate (Hibiclens For Decolonization -) 1 applic TP HS [facility] Last Admin: 02/14/17 22:00 Dose: Not Given Heparin Sodium (Porcine) (Heparin -) 5,000 unit SQ TID [facility] Last Admin: 02/15/17 05:27 Dose: 5,000 unit Ampicillin Sodium 1 gm/ Sodium (Chloride) 100 mls @ 200 mls/hr IVPB Q6H-IV [facility] Last Admin: 02/15/17 09:48 Dose: 200 mls/hr Meropenem (Merrem (Restricted To Id) -) 1 gm in 20 mls @ 240 mls/hr IVPUSH BID [facility] Last Admin: 02/15/17 10:43 Dose: 240 mls/hr Amino Acids (Clinimix -) 1,000 mls @ 84 mls/hr IV Q12H [facility] Last Admin: 02/15/17 04:10 Dose: 84 mls/hr Metoprolol Tartrate (Lopressor -) 50 mg PO BID [facility] Last Admin: 02/15/17 10:29 Dose: Not Given Metoprolol Tartrate (Lopressor Injection -) 5 mg IVPUSH Q4H PRN PRN Reason: HYPERTENSION Last Admin: 02/13/17 09:52 Dose: 5 mg Pantoprazole Sodium (Protonix Iv) 40 mg IVPUSH DAILY [facility] Last Admin: 02/15/17 10:42 Dose: 40 mg - Objective Vital Signs: Vital Signs Temperature 97.8 F 02/15/17 13:52 Pulse Rate 78 02/15/17 13:52 Respiratory Rate 18 02/15/17 13:52 Blood Pressure 164/85 02/15/17 13:52 O2 Sat by Pulse Oximetry (%) 99 02/15/17 12:30 Constitutional: Yes: Calm, Mild Distress Cardiovascular: Yes: Regular Rate and Rhythm Respiratory: Yes: Regular, CTA Bilaterally Gastrointestinal: Yes: Normal Bowel Sounds, Soft, Other (choley tube in place) Musculoskeletal: Yes: WNL Extremities: Yes: WNL Neurological: Yes: Alert, Other Psychiatric: Yes: Other Labs: CBC, BMP 02/14/17 06:30 02/14/17 06:30 INR, PTT INR 1.34 (0.82-1.09) H 02/03/17 06:00 - ....Imaging Ultrasound: Report Reviewed, Image Reviewed Assessment/Plan Problem List - Problems (1) Calculus of gallbladder 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91 - Unspecified dementia with behavioral disturbance; F03.91 - Unspecified dementia with behavioral disturbance; F03.91 - Unspecified dementia with behavioral disturbance fever 6 gm negative bacteremia all cx noted plan watch for fevers cx reports noted continue abx close watch
[2017-02-15] MEDS: CHLORHEXIDINE GLUCONATE 4% CLEANSER FOR DECOLONIZATION TP SCH (21:18)
[2017-02-15] MEDS: ARTIFICIAL TEARS (POLYVINYL ALCOHOL 1.4%) OPTH DROPS OU SCH (21:34)
[2017-02-15] MEDS: METOPROLOL TARTRATE 5 MG/5 ML VIAL IVPUSH PRN (21:40)
[2017-02-15] MEDS: ACETAMINOPHEN 650 MG SUPP.RECT PR PRN (22:00)
[2017-02-16] MEDS ORDERED: PT OWN MED DRAWER 7, Y5N ONE ×4 (02:06→21:02)
[2017-02-16] MEDS: AMINO ACIDS 4.25%/D5W 1,000 ML IV SCH ×2 (02:13→14:00)
[2017-02-16] MEDS: AMPICILLIN - 1 GM in SODIUM CHLORIDE 100 ML IVPB SCH ×4 (02:13→22:51)
[2017-02-16] MEDS: HEPARIN NA (PORCINE) 5,000 UNITS/ML 1ML VIAL SQ SCH ×3 (05:12→21:37)
[2017-02-16] MEDS: ACETAMINOPHEN 650 MG SUPP.RECT PR PRN ×2 (05:18→22:40)
[2017-02-16] MEDS: METOPROLOL TARTRATE 5 MG/5 ML VIAL IVPUSH PRN ×2 (05:18→21:42)
[2017-02-16 07:17] LABS: BASOPHIL 1.1 % (0-2.0); EOSINOPHIL 1.4 % (0-4.5); MEAN CELL VOLUME 94.1 fl (80-96); MEAN PLT VOLUME 7.8 fl (7.5-11.1); NEUTROPHILS 76.6 % (42.8-82.8); PLATELET COUNT 295 K/MM3 (134-434); RDW 15.7 % (11.9-15.9); WHITE BLOOD COUNT 7.5 K/mm3 (4.0-10.0)
[2017-02-16 08:14] LABS: ANION GAP 10 (8-16); CALCIUM 7.4 mg/dL (8.5-10.1); CO2 26 mmol/L (21-32); GLUCOSE,RANDOM 112 mg/dL (74-106)
[2017-02-16 08:18] LABS: ALBUMIN 1.9 g/dl (3.4-5.0); ALK PHOS 176 U/L (45-117); BILIRUBIN,TOTAL 1.7 mg/dL (0.2-1.0); CREATININE 0.7 mg/dL (0.7-1.3); SGOT/AST 41 U/L (15-37); SGPT/ALT 53 U/L (12-78); TOT PROT 5.7 g/dl (6.4-8.2)
[2017-02-16] MEDS: METOPROLOL TARTRATE 50 MG TABLET (FP) PO SCH ×2 (09:52→21:35)
--- NOTE | 2017-02-16 09:52 | PN ---
Progress Note, Physician Chief Complaint: TELE: NSR - Current Medication List Current Medications: Active Medications Acetaminophen (Tylenol Suppository -) 650 mg [place] Q6H PRN PRN Reason: FEVER OR PAIN Last Admin: 02/16/17 05:18 Dose: 650 mg Albuterol/Ipratropium (Duoneb -) 1 amp NEB Q4H PRN PRN Reason: SHORTNESS OF BREATH Artificial Tears (Artificial Tears) 1 drop OU HS [facility] Last Admin: 02/15/17 21:34 Dose: 1 drop Chlorhexidine Gluconate (Hibiclens For Decolonization -) 1 applic TP HS [facility] Last Admin: 02/15/17 21:18 Dose: Not Given Heparin Sodium (Porcine) (Heparin -) 5,000 unit SQ TID [facility] Last Admin: 02/16/17 05:12 Dose: 5,000 unit Ampicillin Sodium 1 gm/ Sodium (Chloride) 100 mls @ 200 mls/hr IVPB Q6H-IV [facility] Last Admin: 02/16/17 02:13 Dose: 200 mls/hr Meropenem (Merrem (Restricted To Id) -) 1 gm in 20 mls @ 240 mls/hr IVPUSH BID [facility] Last Admin: 02/15/17 21:33 Dose: 240 mls/hr Amino Acids (Clinimix -) 1,000 mls @ 84 mls/hr IV Q12H [facility] Last Admin: 02/16/17 02:13 Dose: 84 mls/hr Metoprolol Tartrate (Lopressor -) 50 mg PO BID [facility] Last Admin: 02/15/17 21:18 Dose: Not Given Metoprolol Tartrate (Lopressor Injection -) 5 mg IVPUSH Q4H PRN PRN Reason: HYPERTENSION Last Admin: 02/16/17 05:18 Dose: 5 mg Pantoprazole Sodium (Protonix Iv) 40 mg IVPUSH DAILY [facility] Last Admin: 02/15/17 10:42 Dose: 40 mg - Objective Vital Signs: Vital Signs Temperature 99.2 F 02/16/17 09:42 Pulse Rate 84 02/16/17 09:42 Respiratory Rate 22 02/16/17 09:42 Blood Pressure 156/75 02/16/17 09:42 O2 Sat by Pulse Oximetry (%) 96 02/16/17 09:00 Constitutional: Yes: No Distress Cardiovascular: Yes: Regular Rate and Rhythm Respiratory: Yes: Other (= breath sounds) Gastrointestinal: Yes: Soft Neurological: Yes: Alert Labs: CBC, BMP 02/16/17 06:00 02/16/17 06:00 INR, PTT INR 1.34 (0.82-1.09) H 02/03/17 06:00 Microbiology 02/13/17 12:30 Urine - Urine - Catheterized Urine Culture - Final NO GROWTH OBTAINED 02/04/17 08:22 Blood - Peripheral Venous Blood Culture - Final NO GROWTH AFTER 5 DAYS INCUBATION 02/13/17 12:00 Blood - Peripheral Venous Blood Culture - Preliminary NO GROWTH OBTAINED AFTER 48 HOURS, INCUBATION TO CONTINUE FOR 3 DAYS. 02/13/17 11:30 Blood - Peripheral Venous Blood Culture - Preliminary NO GROWTH OBTAINED AFTER 48 HOURS, INCUBATION TO CONTINUE FOR 3 DAYS. Laboratory Tests 02/16/17 02/16/17 06:00 06:00 WBC 7.5 Hct 28.0 L Plt Count 295 Sodium 140 Potassium 3.6 BUN 29 H Creatinine 0.7 Total Bilirubin 1.7 H D AST 41 H ALT 53 - ....Imaging EKG: Image Reviewed Assessment/Plan Assessment/Plan Sepsis, Klebsiella in blood, Ecoli/enterococcus from cholecystostomy Choledocholithiasis, s/p perc. cholecystostomy ASHD Acute respiratory failure s/p intubation HTN REC: -HTN adequately controlled, cont metoprolol -Probable chronic underlying CAD based on EKG but this does not appear to be ACS /NSTEMI -Echo showed normal LV systolic function -Frequent PVCs, short episodes of NSVT, brief episodes PSVT on tele, improved with bblocker -no significant arrhythmias on tele in past 24 hours -agree with palliative care evaluation -OK with d/c tele.
[2017-02-16] MEDS: PANTOPRAZOLE SODIUM 40 MG VIAL IVPUSH SCH (10:00)
[2017-02-16] MEDS: MEROPENEM 1 GM PUSH 1 GM/20 ML DISP.SYRIN IVPUSH SCH ×2 (11:03→21:35)
--- NOTE | 2017-02-16 11:16 | PN ---
Progress Note, Physician Chief Complaint: Events noted still has wacing and waning of mental status As per nurse, this AM, his had come to feed him and he was very slow to swallow He wasn' t eating enough to meet his nutritional needs - Current Medication List Current Medications: Active Medications Acetaminophen (Tylenol Suppository -) 650 mg [place] Q6H PRN PRN Reason: FEVER OR PAIN Last Admin: 02/16/17 05:18 Dose: 650 mg Albuterol/Ipratropium (Duoneb -) 1 amp NEB Q4H PRN PRN Reason: SHORTNESS OF BREATH Artificial Tears (Artificial Tears) 1 drop OU HS [facility] Last Admin: 02/15/17 21:34 Dose: 1 drop Chlorhexidine Gluconate (Hibiclens For Decolonization -) 1 applic TP HS [facility] Last Admin: 02/15/17 21:18 Dose: Not Given Heparin Sodium (Porcine) (Heparin -) 5,000 unit SQ TID [facility] Last Admin: 02/16/17 05:12 Dose: 5,000 unit Ampicillin Sodium 1 gm/ Sodium (Chloride) 100 mls @ 200 mls/hr IVPB Q6H-IV [facility] Last Admin: 02/16/17 09:52 Dose: 200 mls/hr Meropenem (Merrem (Restricted To Id) -) 1 gm in 20 mls @ 240 mls/hr IVPUSH BID [facility] Last Admin: 02/16/17 11:03 Dose: 240 mls/hr Amino Acids (Clinimix -) 1,000 mls @ 84 mls/hr IV Q12H [facility] Last Admin: 02/16/17 02:13 Dose: 84 mls/hr Metoprolol Tartrate (Lopressor -) 50 mg PO BID [facility] Last Admin: 02/16/17 09:52 Dose: Not Given Metoprolol Tartrate (Lopressor Injection -) 5 mg IVPUSH Q4H PRN PRN Reason: HYPERTENSION Last Admin: 02/16/17 05:18 Dose: 5 mg Pantoprazole Sodium (Protonix Iv) 40 mg IVPUSH DAILY [facility] Last Admin: 02/15/17 10:42 Dose: 40 mg - Objective Vital Signs: Vital Signs Temperature 99.2 F 02/16/17 09:42 Pulse Rate 84 02/16/17 09:42 Respiratory Rate 22 02/16/17 09:42 Blood Pressure 156/75 02/16/17 09:42 O2 Sat by Pulse Oximetry (%) 96 02/16/17 09:00 Constitutional: Yes: No Distress Cardiovascular: Yes: Regular Rate and Rhythm Respiratory: Yes: Diminished Gastrointestinal: Yes: Normal Bowel Sounds, Soft, Abdomen, Obese, Other (CARMELITA drain). No: Distention, Tenderness Edema: Yes Edema: LLE: Trace, RLE: Trace Labs: CBC, BMP 02/16/17 06:00 02/16/17 06:00 INR, PTT INR 1.34 (0.82-1.09) H 02/03/17 06:00 Problem List - Problems (1) Severe sepsis Code(s): A41.9 - SEPSIS, UNSPECIFIED ORGANISM; R65.20 - SEVERE SEPSIS WITHOUT SEPTIC SHOCK (2) Elevated liver function tests Code(s): R79.89 - OTHER SPECIFIED ABNORMAL FINDINGS OF BLOOD CHEMISTRY (3) Cholangitis due to bile duct calculus with obstruction Code(s): K80.31 - CALCULUS OF BILE DUCT W CHOLANGITIS, UNSP, WITH OBSTRUCTION (4) Choledocholithiasis with obstruction Code(s): K80.51 - CALCULUS OF BILE DUCT W/O CHOLANGITIS OR CHOLECYST W OBST (5) Dementia with behavioral disturbance Code(s): F03.91 - UNSPECIFIED DEMENTIA WITH BEHAVIORAL DISTURBANCE Qualifiers: Dementia type: unspecified type Qualified Code(s): F03.91 - Unspecified dementia with behavioral disturbance (6) Calculus of gallbladder 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 Code(s): K80.67 - CALCULUS OF GB AND BILE DUCT W AC AND CHR CHOLECYST W OBST (7) Hypertension Code(s): I10 - ESSENTIAL (PRIMARY) HYPERTENSION Qualifiers: Hypertension type: essential hypertension Qualified Code(s): I10 - Essential (primary) hypertension Assessment/Plan PLAN s/p CARMELITA drain IV antibiotics- duration per ID , repeat blood cultures negative swallow evaluation IV fluids feed with caution-- risk of aspiration GI follow up for possible peg placement DVT prophylaxis-- SCD
--- NOTE | 2017-02-16 11:22 | PN ---
Progress Note, Physician History of Present Illness: pulmonary lethargic,less congested,+ cough - Current Medication List Current Medications: Active Medications Acetaminophen (Tylenol Suppository -) 650 mg [place] Q6H PRN PRN Reason: FEVER OR PAIN Last Admin: 02/16/17 05:18 Dose: 650 mg Albuterol/Ipratropium (Duoneb -) 1 amp NEB Q4H PRN PRN Reason: SHORTNESS OF BREATH Artificial Tears (Artificial Tears) 1 drop OU HS [facility] Last Admin: 02/15/17 21:34 Dose: 1 drop Chlorhexidine Gluconate (Hibiclens For Decolonization -) 1 applic TP HS [facility] Last Admin: 02/15/17 21:18 Dose: Not Given Heparin Sodium (Porcine) (Heparin -) 5,000 unit SQ TID [facility] Last Admin: 02/16/17 05:12 Dose: 5,000 unit Ampicillin Sodium 1 gm/ Sodium (Chloride) 100 mls @ 200 mls/hr IVPB Q6H-IV [facility] Last Admin: 02/16/17 09:52 Dose: 200 mls/hr Meropenem (Merrem (Restricted To Id) -) 1 gm in 20 mls @ 240 mls/hr IVPUSH BID [facility] Last Admin: 02/16/17 11:03 Dose: 240 mls/hr Amino Acids (Clinimix -) 1,000 mls @ 84 mls/hr IV Q12H [facility] Last Admin: 02/16/17 02:13 Dose: 84 mls/hr Metoprolol Tartrate (Lopressor -) 50 mg PO BID [facility] Last Admin: 02/16/17 09:52 Dose: Not Given Metoprolol Tartrate (Lopressor Injection -) 5 mg IVPUSH Q4H PRN PRN Reason: HYPERTENSION Last Admin: 02/16/17 05:18 Dose: 5 mg Pantoprazole Sodium (Protonix Iv) 40 mg IVPUSH DAILY [facility] Last Admin: 02/15/17 10:42 Dose: 40 mg - Objective Vital Signs: Vital Signs Temperature 99.2 F 02/16/17 09:42 Pulse Rate 84 02/16/17 09:42 Respiratory Rate 22 02/16/17 09:42 Blood Pressure 156/75 02/16/17 09:42 O2 Sat by Pulse Oximetry (%) 96 02/16/17 09:00 Constitutional: Yes: Well Nourished, Other (lethargic) Eyes: Yes: WNL HENT: Yes: WNL Neck: Yes: WNL Cardiovascular: Yes: Regular Rate and Rhythm, S1, S2 Respiratory: Yes: Rhonchi (scattered naomi rhonchi) Gastrointestinal: Yes: Normal Bowel Sounds, Soft Extremities: Yes: WNL Edema: No Labs: CBC, BMP 02/16/17 06:00 02/16/17 06:00 INR, PTT INR 1.34 (0.82-1.09) H 02/03/17 06:00 Problem List - Problems (1) JUAN J (acute kidney injury) Code(s): N17.9 - ACUTE KIDNEY FAILURE, UNSPECIFIED (2) Acute cholangitis due to calculus of bile duct with obstruction Code(s): K80.37 - CALCULUS OF BILE DUCT W ACUTE AND CHRONIC CHOLANGITIS W OBST (3) Klebsiella pneumoniae sepsis Code(s): A41.4 - SEPSIS DUE TO ANAEROBES (4) Sepsis due to Gram-negative organism with acute respiratory failure Code(s): A41.50 - GRAM-NEGATIVE SEPSIS, UNSPECIFIED; R65.20 - SEVERE SEPSIS WITHOUT SEPTIC SHOCK; J96.00 - ACUTE RESPIRATORY FAILURE, UNSP W HYPOXIA OR HYPERCAPNIA (5) Severe sepsis Code(s): A41.9 - SEPSIS, UNSPECIFIED ORGANISM; R65.20 - SEVERE SEPSIS WITHOUT SEPTIC SHOCK Assessment/Plan A/P s/p Acute Hypoxic Respiratory Failure Cholangitis Klebsiella Bacteremia s/p Cholecystostomy placement Severe Sepsis improving Acute Kidney Injury improving Anemia - continue antibiotics per ID - monitor urine output, creatinine - FiO2 to keep Spo2 >90% - aspiration precautions - DVT/GI prophylaxis DR YOUNG
--- NOTE | 2017-02-16 11:29 | PN ---
Progress Note, Physician History of Present Illness: No events, not in distress. CARMELITA drain patent. US liver (somewhat confusing report. Needs to be clarified) shows no CBD defects, or dilation. Poor PO intake including with assistance. - Current Medication List Current Medications: Active Medications Acetaminophen (Tylenol Suppository -) 650 mg [place] Q6H PRN PRN Reason: FEVER OR PAIN Last Admin: 02/16/17 05:18 Dose: 650 mg Albuterol/Ipratropium (Duoneb -) 1 amp NEB Q4H PRN PRN Reason: SHORTNESS OF BREATH Artificial Tears (Artificial Tears) 1 drop OU HS [facility] Last Admin: 02/15/17 21:34 Dose: 1 drop Chlorhexidine Gluconate (Hibiclens For Decolonization -) 1 applic TP HS [facility] Last Admin: 02/15/17 21:18 Dose: Not Given Heparin Sodium (Porcine) (Heparin -) 5,000 unit SQ TID [facility] Last Admin: 02/16/17 05:12 Dose: 5,000 unit Ampicillin Sodium 1 gm/ Sodium (Chloride) 100 mls @ 200 mls/hr IVPB Q6H-IV [facility] Last Admin: 02/16/17 09:52 Dose: 200 mls/hr Meropenem (Merrem (Restricted To Id) -) 1 gm in 20 mls @ 240 mls/hr IVPUSH BID [facility] Last Admin: 02/16/17 11:03 Dose: 240 mls/hr Amino Acids (Clinimix -) 1,000 mls @ 84 mls/hr IV Q12H [facility] Last Admin: 02/16/17 02:13 Dose: 84 mls/hr Metoprolol Tartrate (Lopressor -) 50 mg PO BID [facility] Last Admin: 02/16/17 09:52 Dose: Not Given Metoprolol Tartrate (Lopressor Injection -) 5 mg IVPUSH Q4H PRN PRN Reason: HYPERTENSION Last Admin: 02/16/17 05:18 Dose: 5 mg Pantoprazole Sodium (Protonix Iv) 40 mg IVPUSH DAILY [facility] Last Admin: 02/15/17 10:42 Dose: 40 mg - Objective Vital Signs: Vital Signs Temperature 99.2 F 02/16/17 09:42 Pulse Rate 84 02/16/17 09:42 Respiratory Rate 22 02/16/17 09:42 Blood Pressure 156/75 02/16/17 09:42 O2 Sat by Pulse Oximetry (%) 96 02/16/17 09:00 Constitutional: Yes: No Distress, Calm Gastrointestinal: Yes: Soft, Distention. No: Rectal Bleeding, Tenderness, Tenderness, Rebound, Vomiting Neurological: Yes: Lethargy Labs: CBC, BMP 02/16/17 06:00 02/16/17 06:00 INR, PTT INR 1.34 (0.82-1.09) H 02/03/17 06:00 - ....Imaging Ultrasound: Report Reviewed Problem List - Problems (1) Cholangitis due to bile duct calculus with obstruction Code(s): K80.31 - CALCULUS OF BILE DUCT W CHOLANGITIS, UNSP, WITH OBSTRUCTION (2) Cholelithiasis Code(s): K80.20 - CALCULUS OF GALLBLADDER W/O CHOLECYSTITIS W/O OBSTRUCTION (3) Choledocholithiasis with obstruction Code(s): K80.51 - CALCULUS OF BILE DUCT W/O CHOLANGITIS OR CHOLECYST W OBST Assessment/Plan CBD appears to be of normal in size, w/o defects, stones. No need for IR involvement, or ERCP at this time. Poor PO intake likely will require PEG placement (temp, or [facility]) to maintain adequate nutrition. To be discussed with pt's and son. Discussed with pt's nurse and speech and swallow pathologist this am. will follow
--- NOTE | 2017-02-16 11:47 | PN ---
Progress Note, ANESTHESIOLOGY CRNA - Note Progress Note: Oral holding with PO trial by nursing and with delay swallow trigger reported. I suspect prognosis is poor for sufficient PO acceptance/tolerance. Pt with h/o ability to verbalize, now non verbal/vocal. May benefit from TF for nutrition,hydration, medication, with hope that pt will begin to tolerate some po intake for pleasure. However, prognosis for functional recovery is quite guarded. f/u Palliative care Comfort care/hospice/TF
--- NOTE | 2017-02-16 15:48 | PN ---
Progress Note, Physician History of Present Illness: patient still very weak lethargic - Current Medication List Current Medications: Active Medications Acetaminophen (Tylenol Suppository -) 650 mg [place] Q6H PRN PRN Reason: FEVER OR PAIN Last Admin: 02/16/17 05:18 Dose: 650 mg Albuterol/Ipratropium (Duoneb -) 1 amp NEB Q4H PRN PRN Reason: SHORTNESS OF BREATH Artificial Tears (Artificial Tears) 1 drop OU HS [facility] Last Admin: 02/15/17 21:34 Dose: 1 drop Chlorhexidine Gluconate (Hibiclens For Decolonization -) 1 applic TP HS [facility] Last Admin: 02/15/17 21:18 Dose: Not Given Heparin Sodium (Porcine) (Heparin -) 5,000 unit SQ TID [facility] Last Admin: 02/16/17 05:12 Dose: 5,000 unit Ampicillin Sodium 1 gm/ Sodium (Chloride) 100 mls @ 200 mls/hr IVPB Q6H-IV [facility] Last Admin: 02/16/17 09:52 Dose: 200 mls/hr Meropenem (Merrem (Restricted To Id) -) 1 gm in 20 mls @ 240 mls/hr IVPUSH BID [facility] Last Admin: 02/16/17 11:03 Dose: 240 mls/hr Amino Acids (Clinimix -) 1,000 mls @ 84 mls/hr IV Q12H [facility] Last Admin: 02/16/17 02:13 Dose: 84 mls/hr Metoprolol Tartrate (Lopressor -) 50 mg PO BID [facility] Last Admin: 02/16/17 09:52 Dose: Not Given Metoprolol Tartrate (Lopressor Injection -) 5 mg IVPUSH Q4H PRN PRN Reason: HYPERTENSION Last Admin: 02/16/17 05:18 Dose: 5 mg Pantoprazole Sodium (Protonix Iv) 40 mg IVPUSH DAILY [facility] Last Admin: 02/15/17 10:42 Dose: 40 mg - Objective Vital Signs: Vital Signs Temperature 98.1 F 02/16/17 13:50 Pulse Rate 90 02/16/17 13:50 Respiratory Rate 20 02/16/17 13:50 Blood Pressure 157/95 02/16/17 13:50 O2 Sat by Pulse Oximetry (%) 96 02/16/17 09:00 Constitutional: Yes: No Distress, Calm Cardiovascular: Yes: Regular Rate and Rhythm Respiratory: Yes: Regular, CTA Bilaterally Gastrointestinal: Yes: Normal Bowel Sounds, Soft, Other (choley in place) Musculoskeletal: Yes: WNL Extremities: Yes: WNL Neurological: Yes: Alert, Other Labs: CBC, BMP 02/16/17 06:00 02/16/17 06:00 INR, PTT INR 1.34 (0.82-1.09) H 02/03/17 06:00 Assessment/Plan Problem List - Problems (1) Calculus of gallbladder 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91 - Unspecified dementia with behavioral disturbance; F03.91 - Unspecified dementia with behavioral disturbance; F03.91 - Unspecified dementia with behavioral disturbance fever 6 gm negative bacteremia cx noted plan continue current mgmt nutrition monitor mental status rest as per primary
--- NOTE | 2017-02-16 16:03 | PN ---
Progress Note, Physician History of Present Illness: Pt seen and examined at bedside. He remains on clinimix. He is poorly responsive to verbal stimuli. - Current Medication List Current Medications: Active Medications Acetaminophen (Tylenol Suppository -) 650 mg SD Q6H PRN PRN Reason: FEVER OR PAIN Last Admin: 02/16/17 05:18 Dose: 650 mg Albuterol/Ipratropium (Duoneb -) 1 amp NEB Q4H PRN PRN Reason: SHORTNESS OF BREATH Artificial Tears (Artificial Tears) 1 drop OU HS [facility] Last Admin: 02/15/17 21:34 Dose: 1 drop Chlorhexidine Gluconate (Hibiclens For Decolonization -) 1 applic TP HS [facility] Last Admin: 02/15/17 21:18 Dose: Not Given Heparin Sodium (Porcine) (Heparin -) 5,000 unit SQ TID [facility] Last Admin: 02/16/17 05:12 Dose: 5,000 unit Ampicillin Sodium 1 gm/ Sodium (Chloride) 100 mls @ 200 mls/hr IVPB Q6H-IV [facility] Last Admin: 02/16/17 09:52 Dose: 200 mls/hr Meropenem (Merrem (Restricted To Id) -) 1 gm in 20 mls @ 240 mls/hr IVPUSH BID [facility] Last Admin: 02/16/17 11:03 Dose: 240 mls/hr Amino Acids (Clinimix -) 1,000 mls @ 84 mls/hr IV Q12H [facility] Last Admin: 02/16/17 02:13 Dose: 84 mls/hr Metoprolol Tartrate (Lopressor -) 50 mg PO BID [facility] Last Admin: 02/16/17 09:52 Dose: Not Given Metoprolol Tartrate (Lopressor Injection -) 5 mg IVPUSH Q4H PRN PRN Reason: HYPERTENSION Last Admin: 02/16/17 05:18 Dose: 5 mg Pantoprazole Sodium (Protonix Iv) 40 mg IVPUSH DAILY [facility] Last Admin: 02/15/17 10:42 Dose: 40 mg - Objective Vital Signs: Vital Signs Temperature 98.1 F 02/16/17 13:50 Pulse Rate 90 02/16/17 13:50 Respiratory Rate 20 02/16/17 13:50 Blood Pressure 157/95 02/16/17 13:50 O2 Sat by Pulse Oximetry (%) 96 02/16/17 09:00 Constitutional: Yes: Calm Eyes: Yes: Conjunctiva Clear HENT: Yes: Atraumatic Neck: Yes: Supple Cardiovascular: Yes: S1, S2 Respiratory: Yes: On Nasal O2 Gastrointestinal: Yes: Soft, Other (cholecystostomy drain) Genitourinary: Yes: Incontinence Musculoskeletal: Yes: Muscle Weakness Edema: No Neurological: Yes: Lethargy Labs: CBC, BMP 02/16/17 06:00 02/16/17 06:00 INR, PTT INR 1.34 (0.82-1.09) H 02/03/17 06:00 Problem List - Problems (1) Hypertension Code(s): I10 - ESSENTIAL (PRIMARY) HYPERTENSION Qualifiers: Hypertension type: essential hypertension Qualified Code(s): I10 - Essential (primary) hypertension (2) Acute cholangitis due to calculus of bile duct with obstruction Code(s): K80.37 - CALCULUS OF BILE DUCT W ACUTE AND CHRONIC CHOLANGITIS W OBST (3) JUAN J (acute kidney injury) Code(s): N17.9 - ACUTE KIDNEY FAILURE, UNSPECIFIED Assessment/Plan Current Medications Generic Name Dose Route Start Last Admin Trade Name Freq PRN Reason Stop Dose Admin Acetaminophen 650 mg 02/16/17 02:30 02/16/17 05:18 Tylenol Suppository - SD 650 mg Q6H PRN Administration FEVER OR PAIN Albuterol/Ipratropium 1 amp 02/12/17 18:46 Duoneb - NEB Q4H PRN SHORTNESS OF BREATH Artificial Tears 1 drop 02/12/17 22:00 02/15/17 21:34 Artificial Tears OU 1 drop HS [facility] Administration Chlorhexidine Gluconate 1 applic 02/12/17 22:00 02/15/17 21:18 Hibiclens For Decolonization - TP Not Given HS [facility] Heparin Sodium (Porcine) 5,000 unit 02/12/17 22:00 02/16/17 05:12 Heparin - SQ 5,000 unit TID [facility] Administration Ampicillin Sodium 1 gm/ Sodium 100 mls @ 200 mls/hr 02/12/17 21:00 02/16/17 09:52 Chloride IVPB 200 mls/hr Q6H-IV [facility] Administration Meropenem 1 gm in 20 mls @ 240 mls/hr 02/12/17 22:00 02/16/17 11:03 Merrem (Restricted To Id) - IVPUSH 240 mls/hr BID [facility] Administration Amino Acids 1,000 mls @ 84 mls/hr 02/13/17 13:30 02/16/17 02:13 Clinimix - IV 84 mls/hr Q12H [facility] Administration Metoprolol Tartrate 50 mg 02/12/17 22:00 02/16/17 09:52 Lopressor - PO Not Given BID [facility] Metoprolol Tartrate 5 mg 02/12/17 18:46 02/16/17 05:18 Lopressor Injection - IVPUSH 5 mg Q4H PRN Administration HYPERTENSION Pantoprazole Sodium 40 mg 02/13/17 10:00 02/15/17 10:42 Protonix Iv IVPUSH 40 mg DAILY [facility] Administration Impression 1. JUAN J 2. acute resp failure 3. sepsis 4. bacteremia 5. alzheimers 6. anemia 7. choledocholithiasis 8. hypernatremia 9. hypokalemia Plan - will keep on clinimix - labs reviewed - monitor lytes - speech and swallow input appreciated - cholecystostomy care - monitor output from drain - will follow PRN Dr Haynes
[2017-02-16] MEDS: ALBUTEROL SO4 2.5/IPRATROPIUM 0.5 INH SOL 3 ML VIAL.NEB. NEB PRN (21:30)
[2017-02-16] MEDS: ARTIFICIAL TEARS (POLYVINYL ALCOHOL 1.4%) OPTH DROPS OU SCH (21:34)
[2017-02-16] MEDS: CHLORHEXIDINE GLUCONATE 4% CLEANSER FOR DECOLONIZATION TP SCH (21:36)
[2017-02-17] MEDS: AMINO ACIDS 4.25%/D5W 1,000 ML IV SCH ×3 (01:04→20:35)
[2017-02-17] MEDS: AMPICILLIN - 1 GM in SODIUM CHLORIDE 100 ML IVPB SCH ×4 (04:19→21:34)
[2017-02-17] MEDS: HEPARIN NA (PORCINE) 5,000 UNITS/ML 1ML VIAL SQ SCH ×3 (05:09→21:37)
[2017-02-17] MEDS: ALBUTEROL SO4 2.5/IPRATROPIUM 0.5 INH SOL 3 ML VIAL.NEB. NEB PRN (05:45)
--- NOTE | 2017-02-17 09:21 | PN ---
Progress Note, Physician History of Present Illness: Had fever, not in distress. CARMELITA drain patent. at bedside trying to feed him apple souse w/o success. - Current Medication List Current Medications: Active Medications Acetaminophen (Tylenol Suppository -) 650 mg IN Q6H PRN PRN Reason: FEVER OR PAIN Last Admin: 02/16/17 22:40 Dose: 650 mg Albuterol/Ipratropium (Duoneb -) 1 amp NEB Q4H PRN PRN Reason: SHORTNESS OF BREATH Last Admin: 02/17/17 05:45 Dose: 1 amp Artificial Tears (Artificial Tears) 1 drop OU HS [facility] Last Admin: 02/16/17 21:34 Dose: 1 drop Chlorhexidine Gluconate (Hibiclens For Decolonization -) 1 applic TP HS [facility] Last Admin: 02/16/17 21:36 Dose: Not Given Heparin Sodium (Porcine) (Heparin -) 5,000 unit SQ TID [facility] Last Admin: 02/17/17 05:09 Dose: 5,000 unit Ampicillin Sodium 1 gm/ Sodium (Chloride) 100 mls @ 200 mls/hr IVPB Q6H-IV [facility] Last Admin: 02/17/17 04:19 Dose: 200 mls/hr Meropenem (Merrem (Restricted To Id) -) 1 gm in 20 mls @ 240 mls/hr IVPUSH BID [facility] Last Admin: 02/16/17 21:35 Dose: 240 mls/hr Amino Acids (Clinimix -) 1,000 mls @ 84 mls/hr IV Q12H [facility] Last Admin: 02/17/17 01:04 Dose: 84 mls/hr Metoprolol Tartrate (Lopressor -) 50 mg PO BID [facility] Last Admin: 02/16/17 21:35 Dose: Not Given Metoprolol Tartrate (Lopressor Injection -) 5 mg IVPUSH Q4H PRN PRN Reason: HYPERTENSION Last Admin: 02/16/17 21:42 Dose: 5 mg Pantoprazole Sodium (Protonix Iv) 40 mg IVPUSH DAILY [facility] Last Admin: 02/16/17 10:00 Dose: 40 mg - Objective Vital Signs: Vital Signs Temperature 99.9 F H 02/17/17 05:59 Pulse Rate 84 02/17/17 05:59 Respiratory Rate 20 02/17/17 05:59 Blood Pressure 150/81 02/17/17 05:59 O2 Sat by Pulse Oximetry (%) 97 02/16/17 22:00 Constitutional: Yes: No Distress, Calm Gastrointestinal: Yes: Soft. No: Tenderness Neurological: Yes: Lethargy Labs: CBC, BMP 02/16/17 06:00 02/16/17 06:00 INR, PTT INR 1.34 (0.82-1.09) H 02/03/17 06:00 Problem List - Problems (1) Failure to thrive in adult Code(s): R62.7 - ADULT FAILURE TO THRIVE (2) Cholangitis due to bile duct calculus with obstruction Code(s): K80.31 - CALCULUS OF BILE DUCT W CHOLANGITIS, UNSP, WITH OBSTRUCTION (3) Cholelithiasis Code(s): K80.20 - CALCULUS OF GALLBLADDER W/O CHOLECYSTITIS W/O OBSTRUCTION (4) Choledocholithiasis with obstruction Code(s): K80.51 - CALCULUS OF BILE DUCT W/O CHOLANGITIS OR CHOLECYST W OBST Assessment/Plan CBD appears to be of normal in size, w/o defects, stones. Will require PEG placement (temp, or termite technician) to maintain adequate nutrition. Discussed with pt's . She is aware he is not eating. She will discuss PEG with her son. will follow
--- NOTE | 2017-02-17 10:33 | PN ---
Progress Note, Physician Chief Complaint: poorly responsive today TELE: NSR, VPCs and occasional couplets - Current Medication List Current Medications: Active Medications Acetaminophen (Tylenol Suppository -) 650 mg [place] Q6H PRN PRN Reason: FEVER OR PAIN Last Admin: 02/16/17 22:40 Dose: 650 mg Albuterol/Ipratropium (Duoneb -) 1 amp NEB Q4H PRN PRN Reason: SHORTNESS OF BREATH Last Admin: 02/17/17 05:45 Dose: 1 amp Artificial Tears (Artificial Tears) 1 drop OU HS [facility] Last Admin: 02/16/17 21:34 Dose: 1 drop Chlorhexidine Gluconate (Hibiclens For Decolonization -) 1 applic TP HS [facility] Last Admin: 02/16/17 21:36 Dose: Not Given Heparin Sodium (Porcine) (Heparin -) 5,000 unit SQ TID [facility] Last Admin: 02/17/17 05:09 Dose: 5,000 unit Ampicillin Sodium 1 gm/ Sodium (Chloride) 100 mls @ 200 mls/hr IVPB Q6H-IV [facility] Last Admin: 02/17/17 04:19 Dose: 200 mls/hr Meropenem (Merrem (Restricted To Id) -) 1 gm in 20 mls @ 240 mls/hr IVPUSH BID [facility] Last Admin: 02/16/17 21:35 Dose: 240 mls/hr Amino Acids (Clinimix -) 1,000 mls @ 84 mls/hr IV Q12H [facility] Last Admin: 02/17/17 01:04 Dose: 84 mls/hr Metoprolol Tartrate (Lopressor -) 50 mg PO BID [facility] Last Admin: 02/16/17 21:35 Dose: Not Given Metoprolol Tartrate (Lopressor Injection -) 5 mg IVPUSH Q4H PRN PRN Reason: HYPERTENSION Last Admin: 02/16/17 21:42 Dose: 5 mg Pantoprazole Sodium (Protonix Iv) 40 mg IVPUSH DAILY [facility] Last Admin: 02/16/17 10:00 Dose: 40 mg - Objective Vital Signs: Vital Signs Temperature 99.9 F H 02/17/17 05:59 Pulse Rate 110 H 02/17/17 10:32 Respiratory Rate 20 02/17/17 05:59 Blood Pressure 150/81 02/17/17 05:59 O2 Sat by Pulse Oximetry (%) 97 02/17/17 10:32 Cardiovascular: Yes: Regular Rate and Rhythm Respiratory: Yes: Other (b/l rhonchi) Gastrointestinal: Yes: Soft Edema: No Neurological: Yes: Other (poorly responsive today) Labs: CBC, BMP 02/16/17 06:00 02/16/17 06:00 INR, PTT INR 1.34 (0.82-1.09) H 02/03/17 06:00 Microbiology Laboratory Tests 02/16/17 02/16/17 06:00 06:00 WBC 7.5 Hgb 9.5 L Plt Count 295 Sodium 140 Potassium 3.6 BUN 29 H Creatinine 0.7 - ....Imaging EKG: Image Reviewed Assessment/Plan Assessment/Plan Sepsis, Klebsiella in blood, Ecoli/enterococcus from cholecystostomy Choledocholithiasis, s/p perc. cholecystostomy ASHD Acute respiratory failure s/p intubation HTN REC: -HTN adequately controlled, cont metoprolol -Probable chronic underlying CAD based on EKG but this does not appear to be ACS /NSTEMI -Echo showed normal LV systolic function -Frequent PVCs, short episodes of NSVT, brief episodes PSVT on tele, improved with bblocker -agree with palliative care evaluation -Can d/c tele.
[2017-02-17] MEDS ORDERED: PT OWN MED DRAWER 7, Y5N ONE ×2 (10:48→21:30)
--- NOTE | 2017-02-17 10:55 | PN ---
Progress Note, [employer] - Note Progress Note: Reportedly, attempting to feed pt without success today. Selected Entries 02/15/17 02/15/17 02/15/17 02:00 05:45 09:45 Supper Temperature 97.7 F 100.0 F H 98.0 F 02/15/17 02/15/17 02/15/17 13:52 17:00 21:40 Supper Temperature 97.8 F 98.2 F 100.1 F H 02/16/17 02/16/17 02/16/17 01:52 02:12 05:15 Supper Temperature 98.8 F 99.3 F 99.9 F H 02/16/17 02/16/17 02/16/17 09:42 13:50 18:00 Supper Temperature 99.2 F 98.1 F 99.5 F 02/16/17 02/17/17 02/17/17 22:00 02:00 05:59 Supper NPO Temperature 101.0 F H 98.3 F 99.9 F H Laboratory Tests 02/14/17 02/16/17 06:30 06:00 WBC 8.3 7.5 Suggest maintain NPO, with no swallow elicited.Maintain elevated HOB, head flexed. Mouth care. Eyes slightly open with no attempt at communication. Pt not following commands or responding to interaction. End of life decisions pending. Prognosis for functional recovery seems quite poor.
--- NOTE | 2017-02-17 10:56 | PN ---
Progress Note, Physician Chief Complaint: lethargic attempted to feed him this AM had fever spike last night - Current Medication List Current Medications: Active Medications Acetaminophen (Tylenol Suppository -) 650 mg [place] Q6H PRN PRN Reason: FEVER OR PAIN Last Admin: 02/16/17 22:40 Dose: 650 mg Albuterol/Ipratropium (Duoneb -) 1 amp NEB Q4H PRN PRN Reason: SHORTNESS OF BREATH Last Admin: 02/17/17 05:45 Dose: 1 amp Artificial Tears (Artificial Tears) 1 drop OU HS [facility] Last Admin: 02/16/17 21:34 Dose: 1 drop Chlorhexidine Gluconate (Hibiclens For Decolonization -) 1 applic TP HS [facility] Last Admin: 02/16/17 21:36 Dose: Not Given Heparin Sodium (Porcine) (Heparin -) 5,000 unit SQ TID [facility] Last Admin: 02/17/17 05:09 Dose: 5,000 unit Ampicillin Sodium 1 gm/ Sodium (Chloride) 100 mls @ 200 mls/hr IVPB Q6H-IV [facility] Last Admin: 02/17/17 04:19 Dose: 200 mls/hr Meropenem (Merrem (Restricted To Id) -) 1 gm in 20 mls @ 240 mls/hr IVPUSH BID [facility] Last Admin: 02/16/17 21:35 Dose: 240 mls/hr Amino Acids (Clinimix -) 1,000 mls @ 84 mls/hr IV Q12H [facility] Last Admin: 02/17/17 01:04 Dose: 84 mls/hr Metoprolol Tartrate (Lopressor -) 50 mg PO BID [facility] Last Admin: 02/16/17 21:35 Dose: Not Given Metoprolol Tartrate (Lopressor Injection -) 5 mg IVPUSH Q4H PRN PRN Reason: HYPERTENSION Last Admin: 02/16/17 21:42 Dose: 5 mg Pantoprazole Sodium (Protonix Iv) 40 mg IVPUSH DAILY [facility] Last Admin: 02/16/17 10:00 Dose: 40 mg - Objective Vital Signs: Vital Signs Temperature 99.9 F H 02/17/17 05:59 Pulse Rate 110 H 02/17/17 10:32 Respiratory Rate 20 02/17/17 05:59 Blood Pressure 150/81 02/17/17 05:59 O2 Sat by Pulse Oximetry (%) 97 02/17/17 10:32 Constitutional: Yes: No Distress Cardiovascular: Yes: Regular Rate and Rhythm Respiratory: Yes: Diminished Gastrointestinal: Yes: Normal Bowel Sounds, Soft, Other (CARMELITA drain). No: Distention, Tenderness Edema: No Labs: CBC, BMP 02/16/17 06:00 02/16/17 06:00 INR, PTT INR 1.34 (0.82-1.09) H 02/03/17 06:00 Problem List - Problems (1) Severe sepsis Code(s): A41.9 - SEPSIS, UNSPECIFIED ORGANISM; R65.20 - SEVERE SEPSIS WITHOUT SEPTIC SHOCK (2) Elevated liver function tests Code(s): R79.89 - OTHER SPECIFIED ABNORMAL FINDINGS OF BLOOD CHEMISTRY (3) Cholangitis due to bile duct calculus with obstruction Code(s): K80.31 - CALCULUS OF BILE DUCT W CHOLANGITIS, UNSP, WITH OBSTRUCTION (4) Choledocholithiasis with obstruction Code(s): K80.51 - CALCULUS OF BILE DUCT W/O CHOLANGITIS OR CHOLECYST W OBST (5) Dementia with behavioral disturbance Code(s): F03.91 - UNSPECIFIED DEMENTIA WITH BEHAVIORAL DISTURBANCE Qualifiers: Dementia type: unspecified type Qualified Code(s): F03.91 - Unspecified dementia with behavioral disturbance (6) Calculus of gallbladder 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 Code(s): K80.67 - CALCULUS OF GB AND BILE DUCT W AC AND CHR CHOLECYST W OBST (7) Hypertension Code(s): I10 - ESSENTIAL (PRIMARY) HYPERTENSION Qualifiers: Hypertension type: essential hypertension Qualified Code(s): I10 - Essential (primary) hypertension Assessment/Plan PLAN s/p CARMELITA drain IV antibiotics- duration per ID , repeat blood cultures pending swallow evaluation noted IV fluids-- clinimix keep NPO spoke with son-Sunday Menezes-- - who would like to speak with GI -- he is hopeful that pt will recover mental state-- explained that pt may be aspirating and continued fever and infection will affect his mental state GI follow up noted DVT prophylaxis-- SCD
[2017-02-17] MEDS: METOPROLOL TARTRATE 50 MG TABLET (FP) PO SCH ×2 (10:57→21:29)
--- NOTE | 2017-02-17 12:04 | PN ---
Progress Note (short form) - Note Progress Note: Called pt's son Sunday to discuss feeding options. The family wants NGT for up to 7 days to see if he responds to NGT feeding. PEG will be considered by the family based on NGT feeding outcome Problem List - Problems (1) Failure to thrive in adult Code(s): R62.7 - ADULT FAILURE TO THRIVE (2) Cholangitis due to bile duct calculus with obstruction Code(s): K80.31 - CALCULUS OF BILE DUCT W CHOLANGITIS, UNSP, WITH OBSTRUCTION (3) Cholelithiasis Code(s): K80.20 - CALCULUS OF GALLBLADDER W/O CHOLECYSTITIS W/O OBSTRUCTION (4) Choledocholithiasis with obstruction Code(s): K80.51 - CALCULUS OF BILE DUCT W/O CHOLANGITIS OR CHOLECYST W OBST
--- NOTE | 2017-02-17 12:13 | PN ---
Progress Note, Physician History of Present Illness: pulmonary poorly responsive,-resp distress - Current Medication List Current Medications: Active Medications Acetaminophen (Tylenol Suppository -) 650 mg [place] Q6H PRN PRN Reason: FEVER OR PAIN Last Admin: 02/16/17 22:40 Dose: 650 mg Albuterol/Ipratropium (Duoneb -) 1 amp NEB Q4H PRN PRN Reason: SHORTNESS OF BREATH Last Admin: 02/17/17 05:45 Dose: 1 amp Artificial Tears (Artificial Tears) 1 drop OU HS [facility] Last Admin: 02/16/17 21:34 Dose: 1 drop Chlorhexidine Gluconate (Hibiclens For Decolonization -) 1 applic TP HS [facility] Last Admin: 02/16/17 21:36 Dose: Not Given Heparin Sodium (Porcine) (Heparin -) 5,000 unit SQ TID [facility] Last Admin: 02/17/17 05:09 Dose: 5,000 unit Ampicillin Sodium 1 gm/ Sodium (Chloride) 100 mls @ 200 mls/hr IVPB Q6H-IV [facility] Last Admin: 02/17/17 10:57 Dose: 200 mls/hr Meropenem (Merrem (Restricted To Id) -) 1 gm in 20 mls @ 240 mls/hr IVPUSH BID [facility] Last Admin: 02/16/17 21:35 Dose: 240 mls/hr Amino Acids (Clinimix -) 1,000 mls @ 84 mls/hr IV Q12H [facility] Last Admin: 02/17/17 01:04 Dose: 84 mls/hr Metoprolol Tartrate (Lopressor -) 50 mg PO BID [facility] Last Admin: 02/17/17 10:57 Dose: Not Given Metoprolol Tartrate (Lopressor Injection -) 5 mg IVPUSH Q4H PRN PRN Reason: HYPERTENSION Last Admin: 02/16/17 21:42 Dose: 5 mg Pantoprazole Sodium (Protonix Iv) 40 mg IVPUSH DAILY [facility] Last Admin: 02/16/17 10:00 Dose: 40 mg - Objective Vital Signs: Vital Signs Temperature 99.9 F H 02/17/17 05:59 Pulse Rate 110 H 02/17/17 10:32 Respiratory Rate 20 02/17/17 05:59 Blood Pressure 150/81 02/17/17 05:59 O2 Sat by Pulse Oximetry (%) 97 02/17/17 10:32 Constitutional: Yes: Thin, Other (poorly respnsive) Eyes: Yes: WNL HENT: Yes: WNL Neck: Yes: Supple Cardiovascular: Yes: Regular Rate and Rhythm, S1, S2 Respiratory: Yes: Diminished Gastrointestinal: Yes: Soft Extremities: Yes: WNL Edema: No Labs: CBC, BMP 02/16/17 06:00 02/16/17 06:00 INR, PTT INR 1.34 (0.82-1.09) H 02/03/17 06:00 - ....Imaging Chest X-ray: Report Reviewed, Image Reviewed (increased marking left base) Problem List - Problems (1) JUAN J (acute kidney injury) Code(s): N17.9 - ACUTE KIDNEY FAILURE, UNSPECIFIED (2) Acute cholangitis due to calculus of bile duct with obstruction Code(s): K80.37 - CALCULUS OF BILE DUCT W ACUTE AND CHRONIC CHOLANGITIS W OBST (3) Klebsiella pneumoniae sepsis Code(s): A41.4 - SEPSIS DUE TO ANAEROBES (4) Sepsis due to Gram-negative organism with acute respiratory failure Code(s): A41.50 - GRAM-NEGATIVE SEPSIS, UNSPECIFIED; R65.20 - SEVERE SEPSIS WITHOUT SEPTIC SHOCK; J96.00 - ACUTE RESPIRATORY FAILURE, UNSP W HYPOXIA OR HYPERCAPNIA (5) Severe sepsis Code(s): A41.9 - SEPSIS, UNSPECIFIED ORGANISM; R65.20 - SEVERE SEPSIS WITHOUT SEPTIC SHOCK Assessment/Plan A/P s/p Acute Hypoxic Respiratory Failure Cholangitis Klebsiella Bacteremia s/p Cholecystostomy placement Severe Sepsis improving Acute Kidney Injury improving Anemia ? Pneumonia left base - antibiotics per ID - monitor urine output, creatinine - FiO2 to keep Spo2 >90% - aspiration precautions - DVT/GI prophylaxis - abg - f/u chest x-ray am - aspiration precautions DR YOUNG
--- NOTE | 2017-02-17 12:22 | PN ---
Progress Note, Physician History of Present Illness: sluggish still not at baseline - Current Medication List Current Medications: Active Medications Acetaminophen (Tylenol Suppository -) 650 mg [place] Q6H PRN PRN Reason: FEVER OR PAIN Last Admin: 02/16/17 22:40 Dose: 650 mg Albuterol/Ipratropium (Duoneb -) 1 amp NEB Q4H PRN PRN Reason: SHORTNESS OF BREATH Last Admin: 02/17/17 05:45 Dose: 1 amp Artificial Tears (Artificial Tears) 1 drop OU HS [facility] Last Admin: 02/16/17 21:34 Dose: 1 drop Chlorhexidine Gluconate (Hibiclens For Decolonization -) 1 applic TP HS [facility] Last Admin: 02/16/17 21:36 Dose: Not Given Heparin Sodium (Porcine) (Heparin -) 5,000 unit SQ TID [facility] Last Admin: 02/17/17 05:09 Dose: 5,000 unit Ampicillin Sodium 1 gm/ Sodium (Chloride) 100 mls @ 200 mls/hr IVPB Q6H-IV [facility] Last Admin: 02/17/17 10:57 Dose: 200 mls/hr Meropenem (Merrem (Restricted To Id) -) 1 gm in 20 mls @ 240 mls/hr IVPUSH BID [facility] Last Admin: 02/16/17 21:35 Dose: 240 mls/hr Amino Acids (Clinimix -) 1,000 mls @ 84 mls/hr IV Q12H [facility] Last Admin: 02/17/17 01:04 Dose: 84 mls/hr Metoprolol Tartrate (Lopressor -) 50 mg PO BID [facility] Last Admin: 02/17/17 10:57 Dose: Not Given Metoprolol Tartrate (Lopressor Injection -) 5 mg IVPUSH Q4H PRN PRN Reason: HYPERTENSION Last Admin: 02/16/17 21:42 Dose: 5 mg Pantoprazole Sodium (Protonix Iv) 40 mg IVPUSH DAILY [facility] Last Admin: 02/16/17 10:00 Dose: 40 mg - Objective Vital Signs: Vital Signs Temperature 99.8 F H 02/17/17 12:00 Pulse Rate 110 H 02/17/17 12:00 Respiratory Rate 22 02/17/17 12:00 Blood Pressure 150/80 02/17/17 12:00 O2 Sat by Pulse Oximetry (%) 97 02/17/17 10:32 Constitutional: Yes: Other Cardiovascular: Yes: Regular Rate and Rhythm Respiratory: Yes: Regular, Poor Air Entry Gastrointestinal: Yes: Normal Bowel Sounds, Soft, Other (choley tube in place) Musculoskeletal: Yes: WNL Extremities: Yes: WNL Neurological: Yes: Lethargy, Other (sluggish) Labs: CBC, BMP 02/16/17 06:00 02/16/17 06:00 INR, PTT INR 1.34 (0.82-1.09) H 02/03/17 06:00 Assessment/Plan Problem List - Problems (1) Calculus of gallbladder 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91 - Unspecified dementia with behavioral disturbance; F03.91 - Unspecified dementia with behavioral disturbance; F03.91 - Unspecified dementia with behavioral disturbance fever 6 gm negative bacteremia cx noted plan continue abx will see how the mental status improvement rest continue as per primary
[2017-02-17] MEDS: MEROPENEM 1 GM PUSH 1 GM/20 ML DISP.SYRIN IVPUSH SCH ×2 (13:07→21:37)
[2017-02-17] MEDS: PANTOPRAZOLE SODIUM 40 MG VIAL IVPUSH SCH (13:08)
[2017-02-17] MEDS: ACETAMINOPHEN 650 MG SUPP.RECT PR PRN (13:15)
[2017-02-17 14:16] LABS: ARTERIAL BLOOD GAS BASE EXCESS 4.3 meq/l (-2-2); ARTERIAL BLOOD GAS HCO3 27.9 meq/L (22-26); ARTERIAL BLOOD GAS pH 7.47 (7.35-7.45)
[2017-02-17 14:19] LABS: ALLENS TEST POSITIVE; ART PUNCT SITE RIGHT RADIAL; LPM/O2% 3; PT. ON O2? YES; TYPE OF O2 N/C
[2017-02-17] MEDS: ARTIFICIAL TEARS (POLYVINYL ALCOHOL 1.4%) OPTH DROPS OU SCH (21:36)
[2017-02-17] MEDS: CHLORHEXIDINE GLUCONATE 4% CLEANSER FOR DECOLONIZATION TP SCH (21:37)
[2017-02-18] MEDS: METOPROLOL TARTRATE 5 MG/5 ML VIAL IVPUSH PRN ×2 (01:03→17:29)
[2017-02-18] MEDS: AMINO ACIDS 4.25%/D5W 1,000 ML IV SCH ×3 (01:12→23:45)
[2017-02-18] MEDS ORDERED: PT OWN MED DRAWER 7, Y5N ONE ×4 (02:31→19:40)
[2017-02-18] MEDS: AMPICILLIN - 1 GM in SODIUM CHLORIDE 100 ML IVPB SCH ×4 (02:34→21:24)
[2017-02-18] MEDS: ACETAMINOPHEN 650 MG SUPP.RECT PR PRN ×2 (02:42→23:00)
[2017-02-18] MEDS: HEPARIN NA (PORCINE) 5,000 UNITS/ML 1ML VIAL SQ SCH ×3 (05:57→21:24)
[2017-02-18] MEDS: MEROPENEM 1 GM PUSH 1 GM/20 ML DISP.SYRIN IVPUSH SCH ×2 (09:14→21:25)
[2017-02-18] MEDS: METOPROLOL TARTRATE 50 MG TABLET (FP) PO SCH ×2 (09:14→21:25)
[2017-02-18] MEDS: PANTOPRAZOLE SODIUM 40 MG VIAL IVPUSH SCH (09:14)
--- NOTE | 2017-02-18 10:06 | PN ---
Progress Note, Physician Chief Complaint: NG tube in place spoke with DR Valentino yesterday- he spoke with son-- who wishes to try NG feeding to see if he recovers consciousness so the family can avoid placing GT pt lethargic no distress - Current Medication List Current Medications: Active Medications Acetaminophen (Tylenol Suppository -) 650 mg [place] Q6H PRN PRN Reason: FEVER OR PAIN Last Admin: 02/18/17 02:42 Dose: 650 mg Albuterol/Ipratropium (Duoneb -) 1 amp NEB Q4H PRN PRN Reason: SHORTNESS OF BREATH Last Admin: 02/17/17 05:45 Dose: 1 amp Artificial Tears (Artificial Tears) 1 drop OU HS [facility] Last Admin: 02/17/17 21:36 Dose: 1 drop Chlorhexidine Gluconate (Hibiclens For Decolonization -) 1 applic TP HS [facility] Last Admin: 02/17/17 21:37 Dose: Not Given Heparin Sodium (Porcine) (Heparin -) 5,000 unit SQ TID [facility] Last Admin: 02/18/17 05:57 Dose: 5,000 unit Ampicillin Sodium 1 gm/ Sodium (Chloride) 100 mls @ 200 mls/hr IVPB Q6H-IV [facility] Last Admin: 02/18/17 09:14 Dose: 200 mls/hr Meropenem (Merrem (Restricted To Id) -) 1 gm in 20 mls @ 240 mls/hr IVPUSH BID [facility] Last Admin: 02/18/17 09:14 Dose: 240 mls/hr Amino Acids (Clinimix -) 1,000 mls @ 84 mls/hr IV Q12H [facility] Last Admin: 02/18/17 01:12 Dose: 84 mls/hr Metoprolol Tartrate (Lopressor -) 50 mg PO BID [facility] Last Admin: 02/18/17 09:14 Dose: Not Given Metoprolol Tartrate (Lopressor Injection -) 5 mg IVPUSH Q4H PRN PRN Reason: HYPERTENSION Last Admin: 02/18/17 01:03 Dose: 5 mg Pantoprazole Sodium (Protonix Iv) 40 mg IVPUSH DAILY [facility] Last Admin: 02/18/17 09:14 Dose: 40 mg - Objective Vital Signs: Vital Signs Temperature 99.8 F H 02/18/17 06:00 Pulse Rate 76 02/18/17 06:00 Respiratory Rate 16 02/18/17 06:00 Blood Pressure 153/66 02/18/17 06:00 O2 Sat by Pulse Oximetry (%) 95 02/17/17 21:00 Constitutional: Yes: No Distress, Other (NG tube) Cardiovascular: Yes: Regular Rate and Rhythm Respiratory: Yes: Diminished Gastrointestinal: Yes: Normal Bowel Sounds, Soft, Abdomen, Obese, Other (CARMELITA drain). No: Distention, Tenderness Edema: No Labs: CBC, BMP 02/16/17 06:00 02/16/17 06:00 INR, PTT INR 1.34 (0.82-1.09) H 02/03/17 06:00 Problem List - Problems (1) Severe sepsis Code(s): A41.9 - SEPSIS, UNSPECIFIED ORGANISM; R65.20 - SEVERE SEPSIS WITHOUT SEPTIC SHOCK (2) Elevated liver function tests Code(s): R79.89 - OTHER SPECIFIED ABNORMAL FINDINGS OF BLOOD CHEMISTRY (3) Cholangitis due to bile duct calculus with obstruction Code(s): K80.31 - CALCULUS OF BILE DUCT W CHOLANGITIS, UNSP, WITH OBSTRUCTION (4) Choledocholithiasis with obstruction Code(s): K80.51 - CALCULUS OF BILE DUCT W/O CHOLANGITIS OR CHOLECYST W OBST (5) Dementia with behavioral disturbance Code(s): F03.91 - UNSPECIFIED DEMENTIA WITH BEHAVIORAL DISTURBANCE Qualifiers: Dementia type: unspecified type Qualified Code(s): F03.91 - Unspecified dementia with behavioral disturbance (6) Calculus of gallbladder 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 Code(s): K80.67 - CALCULUS OF GB AND BILE DUCT W AC AND CHR CHOLECYST W OBST (7) Hypertension Code(s): I10 - ESSENTIAL (PRIMARY) HYPERTENSION Qualifiers: Hypertension type: essential hypertension Qualified Code(s): I10 - Essential (primary) hypertension (8) Malnutrition of moderate degree Code(s): E44.0 - MODERATE PROTEIN-CALORIE MALNUTRITION Assessment/Plan PLAN s/p CARMELITA drain IV antibiotics- duration per ID , repeat blood cultures negative decrease clinimix start NG feeding GI follow up noted DVT prophylaxis-- SCD
--- NOTE | 2017-02-18 11:08 | PN ---
Progress Note, Physician History of Present Illness: seen and examined today. minimally responsive. no overnight events. - Current Medication List Current Medications: Active Medications Acetaminophen (Tylenol Suppository -) 650 mg [place] Q6H PRN PRN Reason: FEVER OR PAIN Last Admin: 02/18/17 02:42 Dose: 650 mg Albuterol/Ipratropium (Duoneb -) 1 amp NEB Q4H PRN PRN Reason: SHORTNESS OF BREATH Last Admin: 02/17/17 05:45 Dose: 1 amp Artificial Tears (Artificial Tears) 1 drop OU HS [facility] Last Admin: 02/17/17 21:36 Dose: 1 drop Chlorhexidine Gluconate (Hibiclens For Decolonization -) 1 applic TP HS [facility] Last Admin: 02/17/17 21:37 Dose: Not Given Heparin Sodium (Porcine) (Heparin -) 5,000 unit SQ TID [facility] Last Admin: 02/18/17 05:57 Dose: 5,000 unit Ampicillin Sodium 1 gm/ Sodium (Chloride) 100 mls @ 200 mls/hr IVPB Q6H-IV [facility] Last Admin: 02/18/17 09:14 Dose: 200 mls/hr Meropenem (Merrem (Restricted To Id) -) 1 gm in 20 mls @ 240 mls/hr IVPUSH BID [facility] Last Admin: 02/18/17 09:14 Dose: 240 mls/hr Amino Acids (Clinimix -) 1,000 mls @ 84 mls/hr IV Q12H [facility] Last Admin: 02/18/17 01:12 Dose: 84 mls/hr Metoprolol Tartrate (Lopressor -) 50 mg PO BID [facility] Last Admin: 02/18/17 09:14 Dose: Not Given Metoprolol Tartrate (Lopressor Injection -) 5 mg IVPUSH Q4H PRN PRN Reason: HYPERTENSION Last Admin: 02/18/17 01:03 Dose: 5 mg Pantoprazole Sodium (Protonix Iv) 40 mg IVPUSH DAILY [facility] Last Admin: 02/18/17 09:14 Dose: 40 mg - Objective Vital Signs: Vital Signs Temperature 99.8 F H 02/18/17 06:00 Pulse Rate 76 02/18/17 06:00 Respiratory Rate 16 02/18/17 06:00 Blood Pressure 153/66 02/18/17 06:00 O2 Sat by Pulse Oximetry (%) 95 02/17/17 21:00 Constitutional: Yes: No Distress, Calm HENT: Yes: Atraumatic, Normocephalic Cardiovascular: Yes: Regular Rate and Rhythm, Murmur, S1, S2, Other ( extrasystoles heard). No: Bradycardia, Tachycardia, Pulse Irregular, Bruit, JVD , Gallop, Rub, S3, S4, Varicosities Respiratory: Yes: Regular, On Nasal O2, Rhonchi. No: Rales, SOB, Wheezes Gastrointestinal: Yes: Normal Bowel Sounds, Soft. No: Distention, Tenderness Edema: LLE: Trace, RLE: Trace Peripheral Pulses WNL: Yes Neurological: No: Alert, Oriented Psychiatric: No: Alert, Oriented Labs: CBC, BMP 02/16/17 06:00 02/16/17 06:00 INR, PTT INR 1.34 (0.82-1.09) H 02/03/17 06:00 - ....Imaging Chest X-ray: Report Reviewed, Image Reviewed EKG: Report Reviewed, Image Reviewed Other: Report Reviewed, Image Reviewed (tele-nsr, frequent pvcs, vent couplets) Assessment/Plan Sepsis, Klebsiella in blood, Ecoli/enterococcus from cholecystostomy Choledocholithiasis, s/p perc. cholecystostomy ASHD Acute respiratory failure s/p intubation HTN REC: HTN-overall adequately controlled -cont metoprolol CAD -Probable chronic underlying CAD based on EKG but this does not appear to be ACS /NSTEMI -Echo showed normal LV systolic function Arrhythmia -Frequent PVCs, short episodes of NSVT, brief episodes PSVT on tele -improved with bblocker -cont metoprolol at current dose -ok to dc tele
--- NOTE | 2017-02-18 13:16 | PN ---
Progress Note (short form) - Note Progress Note: PULMONARY Pt nonverbal, appears comfortable. Low grade temp overnight. Last Vital Signs Temp Pulse Resp BP Pulse Ox 99.8 F H 76 16 153/66 99 02/18/17 06:00 02/18/17 06:00 02/18/17 09:00 02/18/17 06:00 02/18/17 09:00 Gen: NAD at rest Heart: RRR Lung: decreased breath sounds at the bases Abd: soft, nontender, +cholecystostomy tube Ext: no edema CBC, BMP 02/16/17 06:00 02/16/17 06:00 Active Medications Acetaminophen (Tylenol Suppository -) 650 mg AL Q6H PRN PRN Reason: FEVER OR PAIN Last Admin: 02/18/17 02:42 Dose: 650 mg Albuterol/Ipratropium (Duoneb -) 1 amp NEB Q4H PRN PRN Reason: SHORTNESS OF BREATH Last Admin: 02/17/17 05:45 Dose: 1 amp Artificial Tears (Artificial Tears) 1 drop OU HS [facility] Last Admin: 02/17/17 21:36 Dose: 1 drop Chlorhexidine Gluconate (Hibiclens For Decolonization -) 1 applic TP HS [facility] Last Admin: 02/17/17 21:37 Dose: Not Given Heparin Sodium (Porcine) (Heparin -) 5,000 unit SQ TID [facility] Last Admin: 02/18/17 05:57 Dose: 5,000 unit Ampicillin Sodium 1 gm/ Sodium (Chloride) 100 mls @ 200 mls/hr IVPB Q6H-IV [facility] Last Admin: 02/18/17 09:14 Dose: 200 mls/hr Meropenem (Merrem (Restricted To Id) -) 1 gm in 20 mls @ 240 mls/hr IVPUSH BID [facility] Last Admin: 02/18/17 09:14 Dose: 240 mls/hr Amino Acids (Clinimix -) 1,000 mls @ 84 mls/hr IV Q12H [facility] Last Admin: 02/18/17 12:39 Dose: 84 mls/hr Metoprolol Tartrate (Lopressor -) 50 mg PO BID [facility] Last Admin: 02/18/17 09:14 Dose: Not Given Metoprolol Tartrate (Lopressor Injection -) 5 mg IVPUSH Q4H PRN PRN Reason: HYPERTENSION Last Admin: 02/18/17 01:03 Dose: 5 mg Pantoprazole Sodium (Protonix Iv) 40 mg IVPUSH DAILY [facility] Last Admin: 02/18/17 09:14 Dose: 40 mg A/P s/p Acute Hypoxic Respiratory Failure Cholangitis Klebsiella Bacteremia s/p Cholecystostomy placement Severe Sepsis improving Acute Kidney Injury improving Anemia - continue antibiotics per ID - monitor urine output, creatinine - taper FiO2 to keep Spo2 >90% - PO per GI - aspiration precautions - DVT/GI prophylaxis
--- NOTE | 2017-02-18 14:33 | PN ---
Progress Note, Physician History of Present Illness: patient more awake today ng tube placed for nutrition - Current Medication List Current Medications: Active Medications Acetaminophen (Tylenol Suppository -) 650 mg [place] Q6H PRN PRN Reason: FEVER OR PAIN Last Admin: 02/18/17 02:42 Dose: 650 mg Albuterol/Ipratropium (Duoneb -) 1 amp NEB Q4H PRN PRN Reason: SHORTNESS OF BREATH Last Admin: 02/17/17 05:45 Dose: 1 amp Artificial Tears (Artificial Tears) 1 drop OU HS [facility] Last Admin: 02/17/17 21:36 Dose: 1 drop Chlorhexidine Gluconate (Hibiclens For Decolonization -) 1 applic TP HS [facility] Last Admin: 02/17/17 21:37 Dose: Not Given Heparin Sodium (Porcine) (Heparin -) 5,000 unit SQ TID [facility] Last Admin: 02/18/17 05:57 Dose: 5,000 unit Ampicillin Sodium 1 gm/ Sodium (Chloride) 100 mls @ 200 mls/hr IVPB Q6H-IV [facility] Last Admin: 02/18/17 09:14 Dose: 200 mls/hr Meropenem (Merrem (Restricted To Id) -) 1 gm in 20 mls @ 240 mls/hr IVPUSH BID [facility] Last Admin: 02/18/17 09:14 Dose: 240 mls/hr Amino Acids (Clinimix -) 1,000 mls @ 84 mls/hr IV Q12H [facility] Last Admin: 02/18/17 12:39 Dose: 84 mls/hr Metoprolol Tartrate (Lopressor -) 50 mg PO BID [facility] Last Admin: 02/18/17 09:14 Dose: Not Given Metoprolol Tartrate (Lopressor Injection -) 5 mg IVPUSH Q4H PRN PRN Reason: HYPERTENSION Last Admin: 02/18/17 01:03 Dose: 5 mg Pantoprazole Sodium (Protonix Iv) 40 mg IVPUSH DAILY [facility] Last Admin: 02/18/17 09:14 Dose: 40 mg - Objective Vital Signs: Vital Signs Temperature 97.4 F L 02/18/17 10:00 Pulse Rate 76 02/18/17 06:00 Respiratory Rate 16 02/18/17 10:00 Blood Pressure 144/82 02/18/17 10:00 O2 Sat by Pulse Oximetry (%) 99 02/18/17 09:00 Constitutional: Yes: No Distress, Calm Cardiovascular: Yes: Regular Rate and Rhythm Respiratory: Yes: Regular, CTA Bilaterally Gastrointestinal: Yes: Normal Bowel Sounds, Soft, Other (ng tube in place) Musculoskeletal: Yes: WNL Extremities: Yes: WNL Neurological: Yes: Alert, Other Psychiatric: Yes: Other Labs: CBC, BMP 02/16/17 06:00 02/16/17 06:00 INR, PTT INR 1.34 (0.82-1.09) H 02/03/17 06:00 Assessment/Plan Problem List - Problems (1) Calculus of gallbladder 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91 - Unspecified dementia with behavioral disturbance; F03.91 - Unspecified dementia with behavioral disturbance; F03.91 - Unspecified dementia with behavioral disturbance fever 6 gm negative bacteremia cx noted plan continue current mgmt nutrition monitor mental status rest as per primary patient will need at least another week of abx main issue is nutrition
--- NOTE | 2017-02-18 15:00 | PN ---
Progress Note, Physician History of Present Illness: Pt seen and examined at bedside. He has an NG tube. - Current Medication List Current Medications: Active Medications Acetaminophen (Tylenol Suppository -) 650 mg [place] Q6H PRN PRN Reason: FEVER OR PAIN Last Admin: 02/18/17 02:42 Dose: 650 mg Albuterol/Ipratropium (Duoneb -) 1 amp NEB Q4H PRN PRN Reason: SHORTNESS OF BREATH Last Admin: 02/17/17 05:45 Dose: 1 amp Artificial Tears (Artificial Tears) 1 drop OU HS [facility] Last Admin: 02/17/17 21:36 Dose: 1 drop Chlorhexidine Gluconate (Hibiclens For Decolonization -) 1 applic TP HS [facility] Last Admin: 02/17/17 21:37 Dose: Not Given Heparin Sodium (Porcine) (Heparin -) 5,000 unit SQ TID [facility] Last Admin: 02/18/17 14:28 Dose: 5,000 unit Ampicillin Sodium 1 gm/ Sodium (Chloride) 100 mls @ 200 mls/hr IVPB Q6H-IV [facility] Last Admin: 02/18/17 14:28 Dose: 200 mls/hr Meropenem (Merrem (Restricted To Id) -) 1 gm in 20 mls @ 240 mls/hr IVPUSH BID [facility] Last Admin: 02/18/17 09:14 Dose: 240 mls/hr Amino Acids (Clinimix -) 1,000 mls @ 84 mls/hr IV Q12H [facility] Last Admin: 02/18/17 12:39 Dose: 84 mls/hr Metoprolol Tartrate (Lopressor -) 50 mg PO BID [facility] Last Admin: 02/18/17 09:14 Dose: Not Given Metoprolol Tartrate (Lopressor Injection -) 5 mg IVPUSH Q4H PRN PRN Reason: HYPERTENSION Last Admin: 02/18/17 01:03 Dose: 5 mg Pantoprazole Sodium (Protonix Iv) 40 mg IVPUSH DAILY [facility] Last Admin: 02/18/17 09:14 Dose: 40 mg - Objective Vital Signs: Vital Signs Temperature 97.4 F L 02/18/17 10:00 Pulse Rate 76 02/18/17 06:00 Respiratory Rate 16 02/18/17 10:00 Blood Pressure 144/82 02/18/17 10:00 O2 Sat by Pulse Oximetry (%) 99 02/18/17 09:00 Constitutional: Yes: Calm Eyes: Yes: Conjunctiva Clear HENT: Yes: Atraumatic Neck: Yes: Supple Cardiovascular: Yes: S1, S2 Respiratory: Yes: On Nasal O2 Gastrointestinal: Yes: Soft, Other (ng tube) Genitourinary: Yes: Incontinence Musculoskeletal: Yes: Muscle Weakness Edema: No Neurological: Yes: Lethargy Labs: CBC, BMP 02/16/17 06:00 02/16/17 06:00 INR, PTT INR 1.34 (0.82-1.09) H 02/03/17 06:00 Problem List - Problems (1) Hypertension Code(s): I10 - ESSENTIAL (PRIMARY) HYPERTENSION Qualifiers: Hypertension type: essential hypertension Qualified Code(s): I10 - Essential (primary) hypertension (2) Acute cholangitis due to calculus of bile duct with obstruction Code(s): K80.37 - CALCULUS OF BILE DUCT W ACUTE AND CHRONIC CHOLANGITIS W OBST (3) JUAN J (acute kidney injury) Code(s): N17.9 - ACUTE KIDNEY FAILURE, UNSPECIFIED Assessment/Plan Current Medications Generic Name Dose Route Start Last Admin Trade Name Freq PRN Reason Stop Dose Admin Acetaminophen 650 mg 02/16/17 02:30 02/18/17 02:42 Tylenol Suppository - NV 650 mg Q6H PRN Administration FEVER OR PAIN Albuterol/Ipratropium 1 amp 02/12/17 18:46 02/17/17 05:45 Duoneb - NEB 1 amp Q4H PRN Administration SHORTNESS OF BREATH Artificial Tears 1 drop 02/12/17 22:00 02/17/17 21:36 Artificial Tears OU 1 drop HS [facility] Administration Chlorhexidine Gluconate 1 applic 02/12/17 22:00 02/17/17 21:37 Hibiclens For Decolonization - TP Not Given HS [facility] Heparin Sodium (Porcine) 5,000 unit 02/12/17 22:00 02/18/17 14:28 Heparin - SQ 5,000 unit TID [facility] Administration Ampicillin Sodium 1 gm/ Sodium 100 mls @ 200 mls/hr 02/12/17 21:00 02/18/17 14:28 Chloride IVPB 200 mls/hr Q6H-IV [facility] Administration Meropenem 1 gm in 20 mls @ 240 mls/hr 02/12/17 22:00 02/18/17 09:14 Merrem (Restricted To Id) - IVPUSH 240 mls/hr BID [facility] Administration Amino Acids 1,000 mls @ 84 mls/hr 02/13/17 13:30 02/18/17 12:39 Clinimix - IV 84 mls/hr Q12H [facility] Administration Metoprolol Tartrate 50 mg 02/12/17 22:00 02/18/17 09:14 Lopressor - PO Not Given BID [facility] Metoprolol Tartrate 5 mg 02/12/17 18:46 02/18/17 01:03 Lopressor Injection - IVPUSH 5 mg Q4H PRN Administration HYPERTENSION Pantoprazole Sodium 40 mg 02/13/17 10:00 02/18/17 09:14 Protonix Iv IVPUSH 40 mg DAILY [facility] Administration Impression 1. JUAN J 2. acute resp failure 3. sepsis 4. bacteremia 5. alzheimers 6. anemia 7. choledocholithiasis 8. hypernatremia 9. hypokalemia 10. malnutrition Plan - check labs in am - can stop clinimix if he is tolerating feeds - feeds will be started today, spoke to nursing team - monitor lytes - cholecystostomy care - will follow PRN Dr Haynes
--- NOTE | 2017-02-18 15:22 | PN ---
Progress Note, Physician History of Present Illness: More alert today. NG feeding in progress - Current Medication List Current Medications: Active Medications Acetaminophen (Tylenol Suppository -) 650 mg [place] Q6H PRN PRN Reason: FEVER OR PAIN Last Admin: 02/18/17 02:42 Dose: 650 mg Albuterol/Ipratropium (Duoneb -) 1 amp NEB Q4H PRN PRN Reason: SHORTNESS OF BREATH Last Admin: 02/17/17 05:45 Dose: 1 amp Artificial Tears (Artificial Tears) 1 drop OU HS [facility] Last Admin: 02/17/17 21:36 Dose: 1 drop Chlorhexidine Gluconate (Hibiclens For Decolonization -) 1 applic TP HS [facility] Last Admin: 02/17/17 21:37 Dose: Not Given Heparin Sodium (Porcine) (Heparin -) 5,000 unit SQ TID [facility] Last Admin: 02/18/17 14:28 Dose: 5,000 unit Ampicillin Sodium 1 gm/ Sodium (Chloride) 100 mls @ 200 mls/hr IVPB Q6H-IV [facility] Last Admin: 02/18/17 14:28 Dose: 200 mls/hr Meropenem (Merrem (Restricted To Id) -) 1 gm in 20 mls @ 240 mls/hr IVPUSH BID [facility] Last Admin: 02/18/17 09:14 Dose: 240 mls/hr Amino Acids (Clinimix -) 1,000 mls @ 84 mls/hr IV Q12H [facility] Last Admin: 02/18/17 12:39 Dose: 84 mls/hr Metoprolol Tartrate (Lopressor -) 50 mg PO BID [facility] Last Admin: 02/18/17 09:14 Dose: Not Given Metoprolol Tartrate (Lopressor Injection -) 5 mg IVPUSH Q4H PRN PRN Reason: HYPERTENSION Last Admin: 02/18/17 01:03 Dose: 5 mg Pantoprazole Sodium (Protonix Iv) 40 mg IVPUSH DAILY [facility] Last Admin: 02/18/17 09:14 Dose: 40 mg - Objective Vital Signs: Vital Signs Temperature 97.4 F L 02/18/17 10:00 Pulse Rate 76 02/18/17 06:00 Respiratory Rate 16 02/18/17 10:00 Blood Pressure 144/82 02/18/17 10:00 O2 Sat by Pulse Oximetry (%) 99 02/18/17 09:00 Constitutional: Yes: No Distress, Calm Eyes: Yes: Conjunctiva Clear Labs: CBC, BMP 02/16/17 06:00 02/16/17 06:00 INR, PTT INR 1.34 (0.82-1.09) H 02/03/17 06:00 CBCD WBC 7.5 K/mm3 (4.0-10.0) 02/16/17 06:00 RBC 2.98 M/mm3 (4.00-5.60) L 02/16/17 06:00 Hgb 9.5 GM/dL (11.7-16.9) L 02/16/17 06:00 Hct 28.0 % (35.4-49) L 02/16/17 06:00 MCV 94.1 fl (80-96) 02/16/17 06:00 MCHC 34.0 g/dl (32.0-35.9) 02/16/17 06:00 RDW 15.7 % (11.9-15.9) 02/16/17 06:00 Plt Count 295 K/MM3 (134-434) 02/16/17 06:00 MPV 7.8 fl (7.5-11.1) 02/16/17 06:00 CMP Sodium 140 mmol/L (136-145) 02/16/17 06:00 Potassium 3.6 mmol/L (3.5-5.1) 02/16/17 06:00 Chloride 104 mmol/L (98-107) 02/16/17 06:00 Carbon Dioxide 26 mmol/L (21-32) 02/16/17 06:00 Anion Gap 10 (8-16) 02/16/17 06:00 BUN 29 mg/dL (7-18) H 02/16/17 06:00 Creatinine 0.7 mg/dL (0.7-1.3) 02/16/17 06:00 Creat Clearance w eGFR > 60 (>60) 02/16/17 06:00 Calcium 7.4 mg/dL (8.5-10.1) L 02/16/17 06:00 Total Bilirubin 1.7 mg/dL (0.2-1.0) H D 02/16/17 06:00 AST 41 U/L (15-37) H 02/16/17 06:00 ALT 53 U/L (12-78) 02/16/17 06:00 Alkaline Phosphatase 176 U/L (45-117) H 02/16/17 06:00 Total Protein 5.7 g/dl (6.4-8.2) L 02/16/17 06:00 Albumin 1.9 g/dl (3.4-5.0) L 02/16/17 06:00 Problem List - Problems (1) Failure to thrive in adult Code(s): R62.7 - ADULT FAILURE TO THRIVE (2) Cholangitis due to bile duct calculus with obstruction Code(s): K80.31 - CALCULUS OF BILE DUCT W CHOLANGITIS, UNSP, WITH OBSTRUCTION (3) Cholelithiasis Code(s): K80.20 - CALCULUS OF GALLBLADDER W/O CHOLECYSTITIS W/O OBSTRUCTION (4) Choledocholithiasis with obstruction Code(s): K80.51 - CALCULUS OF BILE DUCT W/O CHOLANGITIS OR CHOLECYST W OBST Assessment/Plan Continue NG feeding Aspiration precautions will follow
--- NOTE | 2017-02-18 17:25 | PN ---
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 Lethargy persists. Occasional eye opening. Swallow is not functional. Selected Entries 02/16/17 02/16/17 02/16/17 01:52 02:12 05:15 Temperature 98.8 F 99.3 F 99.9 F H 02/16/17 02/16/17 02/16/17 09:42 13:50 18:00 Temperature 99.2 F 98.1 F 99.5 F 02/16/17 02/17/17 02/17/17 22:00 02:00 05:59 Temperature 101.0 F H 98.3 F 99.9 F H 02/17/17 02/17/17 02/17/17 12:00 12:30 18:00 Temperature 99.8 F H 102 F H 97.5 F L 02/17/17 02/18/17 02/18/17 21:33 02:00 06:00 Temperature 99.9 F H 100.7 F H 99.8 F H 02/18/17 02/18/17 02/18/17 10:00 16:12 16:59 Temperature 97.4 F L 98.8 F 98.8 F Laboratory Tests 02/16/17 06:00 WBC 7.5
[2017-02-18] MEDS: ARTIFICIAL TEARS (POLYVINYL ALCOHOL 1.4%) OPTH DROPS OU SCH (21:24)
[2017-02-18] MEDS: CHLORHEXIDINE GLUCONATE 4% CLEANSER FOR DECOLONIZATION TP SCH (21:25)
--- NOTE | 2017-02-18 23:20 | HOSP ---
Subjective - Review of Symptoms Events since last encounter: Hospitalist Encounter Notified by RN that the patient's NGT was dislodged, patient is febrile- 101.2 A/P Cholangitis Klebsiella Bacteremia s/p Cholecystostomy placement Severe Sepsis Acute Kidney Anemia Failure to Thrive - Attempts x2 to place NGT, unsuccessful - Will restart Clinimix, until NGT can be placed and Jevity restarted - Patient on ABX for above, ID following, BC done 02/16/17- preliminary no growth - Will continue to monitor overnight Last Vital Signs Temp Pulse Resp BP Pulse Ox 98.0 F 98 H 20 149/79 96 02/18/17 22:00 02/18/17 22:00 02/18/17 22:00 02/18/17 22:00 02/18/17 22:00 Physical Examination Vital Signs: Vital Signs Temperature 98.0 F 02/18/17 22:00 Pulse Rate 98 H 02/18/17 22:00 Respiratory Rate 20 02/18/17 22:00 Blood Pressure 149/79 02/18/17 22:00 O2 Sat by Pulse Oximetry (%) 96 02/18/17 22:00 Constitutional: Yes: Thin Cardiovascular: Yes: Regular Rate and Rhythm, S1, S2 Respiratory: Yes: Diminished (at bases), On Nasal O2 Gastrointestinal: Yes: Normal Bowel Sounds, Soft, Other (CARMELITA drain with bile) Peripheral Pulses WNL: Yes Neurological: Yes: Lethargy Labs: CBC, BMP 02/16/17 06:00 02/16/17 06:00
[2017-02-19] MEDS ORDERED: PT OWN MED DRAWER 7, Y5N ONE ×4 (02:39→21:18)
[2017-02-19] MEDS: AMPICILLIN - 1 GM in SODIUM CHLORIDE 100 ML IVPB SCH ×4 (02:50→20:34)
[2017-02-19] MEDS: HEPARIN NA (PORCINE) 5,000 UNITS/ML 1ML VIAL SQ SCH ×3 (05:29→21:46)
[2017-02-19 07:55] LABS: ANION GAP 9 (8-16); CALCIUM 8.6 mg/dL (8.5-10.1); CO2 27 mmol/L (21-32); CREATININE 0.8 mg/dL (0.7-1.3); GLUCOSE,RANDOM 102 mg/dL (74-106)
[2017-02-19] MEDS: MEROPENEM 1 GM PUSH 1 GM/20 ML DISP.SYRIN IVPUSH SCH ×2 (10:00→21:15)
--- NOTE | 2017-02-19 10:23 | PN ---
Progress Note (short form) - Note Progress Note: PULMONARY 101.2 LAST PM CHRONICALLY ILL IN APPEARANCE NONVERBAL/PALE/OPENS EYES/NGT OUT DIMINISHED BREATH SOUNDS S1S2 RSR BS+ CHOLECSTOSTOMY TUBE WITH BROWN DRAINAGE B/L SCD'S/HEEL OFFLOADERS/NO EDEMA LABS/MEDS/NOTES/EKG/IMAGES/MICRO NOTED LAST +BLD CULTURE 02/01 KLEBSIELLA s/p Acute Hypoxic Respiratory Failure Cholangitis Klebsiella Bacteremia s/p Cholecystostomy placement Severe Sepsis improvied Acute Kidney Injury improving Anemia - continue antibiotics per ID - monitor urine output, creatinine - taper FiO2 to keep Spo2 >90% - PO per GI - aspiration precautions - DVT/GI prophylaxsis Melina LIVINGSTON MD
--- NOTE | 2017-02-19 10:42 | PN ---
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 Intermittently more awake. Swallow reassessment performed. Pt vocalizing, shaking head, waving arms when I attempted to feed him. He is clearly resistent to PO feedings. Selected Entries 02/17/17 02/17/17 02/17/17 02:00 05:59 12:00 Supper Temperature 98.3 F 99.9 F H 99.8 F H 02/17/17 02/17/17 02/17/17 12:30 18:00 21:33 Supper Temperature 102 F H 97.5 F L 99.9 F H 02/18/17 02/18/17 02/18/17 02:00 06:00 10:00 Supper Temperature 100.7 F H 99.8 F H 97.4 F L 02/18/17 02/18/17 02/18/17 16:12 16:59 18:00 Supper Temperature 98.8 F 98.8 F 99.0 F 02/18/17 02/18/17 02/18/17 18:30 22:00 23:30 Supper NPO NPO Temperature 98.0 F 101.2 F H 02/19/17 02/19/17 02:00 06:00 Supper Temperature 97.5 F L 97.5 F L Consider PEG insertion vs comfort care/hospice.
--- NOTE | 2017-02-19 10:53 | PN ---
Progress Note, Physician History of Present Illness: ng tube out patient more awake than yesterday still spiking fevers tmax 101.3 now on clinimax - Current Medication List Current Medications: Active Medications Acetaminophen (Tylenol Suppository -) 650 mg [place] Q6H PRN PRN Reason: FEVER OR PAIN Last Admin: 02/18/17 23:00 Dose: 650 mg Albuterol/Ipratropium (Duoneb -) 1 amp NEB Q4H PRN PRN Reason: SHORTNESS OF BREATH Last Admin: 02/17/17 05:45 Dose: 1 amp Artificial Tears (Artificial Tears) 1 drop OU HS [facility] Last Admin: 02/18/17 21:24 Dose: 1 drop Chlorhexidine Gluconate (Hibiclens For Decolonization -) 1 applic TP HS [facility] Last Admin: 02/18/17 21:25 Dose: Not Given Heparin Sodium (Porcine) (Heparin -) 5,000 unit SQ TID [facility] Last Admin: 02/19/17 05:29 Dose: 5,000 unit Ampicillin Sodium 1 gm/ Sodium (Chloride) 100 mls @ 200 mls/hr IVPB Q6H-IV [facility] Last Admin: 02/19/17 02:50 Dose: 200 mls/hr Meropenem (Merrem (Restricted To Id) -) 1 gm in 20 mls @ 240 mls/hr IVPUSH BID [facility] Last Admin: 02/18/17 21:25 Dose: 240 mls/hr Amino Acids (Clinimix -) 1,000 mls @ 42 mls/hr IV ASDIR [facility] Last Admin: 02/18/17 23:45 Dose: 42 mls/hr Metoprolol Tartrate (Lopressor -) 50 mg PO BID [facility] Last Admin: 02/18/17 21:25 Dose: Not Given Metoprolol Tartrate (Lopressor Injection -) 5 mg IVPUSH Q4H PRN PRN Reason: HYPERTENSION Last Admin: 02/18/17 17:29 Dose: 5 mg Pantoprazole Sodium (Protonix Iv) 40 mg IVPUSH DAILY [facility] Last Admin: 02/18/17 09:14 Dose: 40 mg - Objective Vital Signs: Vital Signs Temperature 97.5 F L 02/19/17 06:00 Pulse Rate 91 H 02/19/17 06:00 Respiratory Rate 20 02/19/17 06:00 Blood Pressure 145/66 02/19/17 06:00 O2 Sat by Pulse Oximetry (%) 96 02/18/17 22:00 Constitutional: Yes: Calm Cardiovascular: Yes: Regular Rate and Rhythm Respiratory: Yes: On Nasal O2, Poor Air Entry Gastrointestinal: Yes: Normal Bowel Sounds, Soft, Other (choleytube in place) Musculoskeletal: Yes: WNL Extremities: Yes: WNL Neurological: Yes: Alert, Other Labs: CBC, BMP 02/16/17 06:00 02/19/17 06:00 INR, PTT INR 1.34 (0.82-1.09) H 02/03/17 06:00 Assessment/Plan Problem List - Problems (1) Calculus of gallbladder 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91 - Unspecified dementia with behavioral disturbance; F03.91 - Unspecified dementia with behavioral disturbance; F03.91 - Unspecified dementia with behavioral disturbance fever 6 gm negative bacteremia cx noted plan continue current mgmt nutrition monitor mental status rest as per primary patient will need at least another week of abx main issue is nutrition if fever continues Please send cx from the alejandro tube
--- NOTE | 2017-02-19 10:57 | PN ---
Progress Note, Physician History of Present Illness: Responds to his name. Pt pulled NG out last night. To be reinserted this am. Refuses to take PO. t max 101 - Current Medication List Current Medications: Active Medications Acetaminophen (Tylenol Suppository -) 650 mg [place] Q6H PRN PRN Reason: FEVER OR PAIN Last Admin: 02/18/17 23:00 Dose: 650 mg Albuterol/Ipratropium (Duoneb -) 1 amp NEB Q4H PRN PRN Reason: SHORTNESS OF BREATH Last Admin: 02/17/17 05:45 Dose: 1 amp Artificial Tears (Artificial Tears) 1 drop OU HS [facility] Last Admin: 02/18/17 21:24 Dose: 1 drop Chlorhexidine Gluconate (Hibiclens For Decolonization -) 1 applic TP HS [facility] Last Admin: 02/18/17 21:25 Dose: Not Given Heparin Sodium (Porcine) (Heparin -) 5,000 unit SQ TID [facility] Last Admin: 02/19/17 05:29 Dose: 5,000 unit Ampicillin Sodium 1 gm/ Sodium (Chloride) 100 mls @ 200 mls/hr IVPB Q6H-IV [facility] Last Admin: 02/19/17 02:50 Dose: 200 mls/hr Meropenem (Merrem (Restricted To Id) -) 1 gm in 20 mls @ 240 mls/hr IVPUSH BID [facility] Last Admin: 02/18/17 21:25 Dose: 240 mls/hr Amino Acids (Clinimix -) 1,000 mls @ 42 mls/hr IV ASDIR [facility] Last Admin: 02/18/17 23:45 Dose: 42 mls/hr Metoprolol Tartrate (Lopressor -) 50 mg PO BID [facility] Last Admin: 02/18/17 21:25 Dose: Not Given Metoprolol Tartrate (Lopressor Injection -) 5 mg IVPUSH Q4H PRN PRN Reason: HYPERTENSION Last Admin: 02/18/17 17:29 Dose: 5 mg Pantoprazole Sodium (Protonix Iv) 40 mg IVPUSH DAILY [facility] Last Admin: 02/18/17 09:14 Dose: 40 mg - Objective Vital Signs: Vital Signs Temperature 97.5 F L 02/19/17 06:00 Pulse Rate 91 H 02/19/17 06:00 Respiratory Rate 20 02/19/17 06:00 Blood Pressure 145/66 02/19/17 06:00 O2 Sat by Pulse Oximetry (%) 96 02/18/17 22:00 Constitutional: Yes: No Distress, Calm Eyes: Yes: Conjunctiva Clear Gastrointestinal: Yes: Normal Bowel Sounds, Soft, Other (PD patent with bile) Wound/Incision: Yes: Clean/Dry Neurological: Yes: Lethargy Labs: CBC, BMP 02/16/17 06:00 02/19/17 06:00 INR, PTT INR 1.34 (0.82-1.09) H 02/03/17 06:00 CBCD WBC 7.5 K/mm3 (4.0-10.0) 02/16/17 06:00 RBC 2.98 M/mm3 (4.00-5.60) L 02/16/17 06:00 Hgb 9.5 GM/dL (11.7-16.9) L 02/16/17 06:00 Hct 28.0 % (35.4-49) L 02/16/17 06:00 MCV 94.1 fl (80-96) 02/16/17 06:00 MCHC 34.0 g/dl (32.0-35.9) 02/16/17 06:00 RDW 15.7 % (11.9-15.9) 02/16/17 06:00 Plt Count 295 K/MM3 (134-434) 02/16/17 06:00 MPV 7.8 fl (7.5-11.1) 02/16/17 06:00 CMP Sodium 142 mmol/L (136-145) 02/19/17 06:00 Potassium 3.5 mmol/L (3.5-5.1) 02/19/17 06:00 Chloride 106 mmol/L (98-107) 02/19/17 06:00 Carbon Dioxide 27 mmol/L (21-32) 02/19/17 06:00 Anion Gap 9 (8-16) 02/19/17 06:00 BUN 37 mg/dL (7-18) H D 02/19/17 06:00 Creatinine 0.8 mg/dL (0.7-1.3) 02/19/17 06:00 Creat Clearance w eGFR > 60 (>60) 02/16/17 06:00 Calcium 8.6 mg/dL (8.5-10.1) 02/19/17 06:00 Total Bilirubin 1.7 mg/dL (0.2-1.0) H D 02/16/17 06:00 AST 41 U/L (15-37) H 02/16/17 06:00 ALT 53 U/L (12-78) 02/16/17 06:00 Alkaline Phosphatase 176 U/L (45-117) H 02/16/17 06:00 Total Protein 5.7 g/dl (6.4-8.2) L 02/16/17 06:00 Albumin 1.9 g/dl (3.4-5.0) L 02/16/17 06:00 Problem List - Problems (1) Failure to thrive in adult Code(s): R62.7 - ADULT FAILURE TO THRIVE (2) Cholangitis due to bile duct calculus with obstruction Code(s): K80.31 - CALCULUS OF BILE DUCT W CHOLANGITIS, UNSP, WITH OBSTRUCTION (3) Cholelithiasis Code(s): K80.20 - CALCULUS OF GALLBLADDER W/O CHOLECYSTITIS W/O OBSTRUCTION (4) Choledocholithiasis with obstruction Code(s): K80.51 - CALCULUS OF BILE DUCT W/O CHOLANGITIS OR CHOLECYST W OBST Assessment/Plan Confirm position and continue NG feeding. May need hands restraining Aspiration precautions ID follow up re fiver culture urine/blood if spikes again will follow
[2017-02-19] MEDS: PANTOPRAZOLE SODIUM 40 MG VIAL IVPUSH SCH (11:40)
--- NOTE | 2017-02-19 14:15 | PN ---
Progress Note (short form) - Note Progress Note: Pt seen/ examined chart reviewed awake/ confused ng tube reinserted-- feeding to be started had fever 101 last night Vital Signs Temp 99.5 F 02/19/17 11:30 Pulse 84 02/19/17 10:00 Resp 20 02/19/17 10:00 BP 112/60 02/19/17 10:00 Pulse Ox 96 02/18/17 22:00 Intake & Output 02/18/17 02/19/17 02/19/17 23:59 11:59 23:59 Intake Total 394 Output Total 465 40 80 Balance -465 354 -80 Weight 163 lb 4 oz Intake: IV 294 clinimix 42cc/hr 294 IVPB 100 Output: Gastric Drainage 200 80 Drainage 265 40 Right Abdomen 265 40 Other: Voiding Method Diaper Bowel Movement Yes # Bowel Movements 1 Weight Measurement Method Patient Lift Scale Active Medications Acetaminophen (Tylenol Suppository -) 650 mg [place] Q6H PRN PRN Reason: FEVER OR PAIN Last Admin: 02/18/17 23:00 Dose: 650 mg Albuterol/Ipratropium (Duoneb -) 1 amp NEB Q4H PRN PRN Reason: SHORTNESS OF BREATH Last Admin: 02/17/17 05:45 Dose: 1 amp Artificial Tears (Artificial Tears) 1 drop OU HS [facility] Last Admin: 02/18/17 21:24 Dose: 1 drop Chlorhexidine Gluconate (Hibiclens For Decolonization -) 1 applic TP HS [facility] Last Admin: 02/18/17 21:25 Dose: Not Given Heparin Sodium (Porcine) (Heparin -) 5,000 unit SQ TID [facility] Last Admin: 02/19/17 05:29 Dose: 5,000 unit Ampicillin Sodium 1 gm/ Sodium (Chloride) 100 mls @ 200 mls/hr IVPB Q6H-IV [facility] Last Admin: 02/19/17 11:39 Dose: 200 mls/hr Meropenem (Merrem (Restricted To Id) -) 1 gm in 20 mls @ 240 mls/hr IVPUSH BID [facility] Last Admin: 02/19/17 10:00 Dose: 240 mls/hr Amino Acids (Clinimix -) 1,000 mls @ 42 mls/hr IV ASDIR [facility] Last Admin: 02/18/17 23:45 Dose: 42 mls/hr Metoprolol Tartrate (Lopressor -) 50 mg PO BID [facility] Last Admin: 02/18/17 21:25 Dose: Not Given Metoprolol Tartrate (Lopressor Injection -) 5 mg IVPUSH Q4H PRN PRN Reason: HYPERTENSION Last Admin: 02/18/17 17:29 Dose: 5 mg Pantoprazole Sodium (Protonix Iv) 40 mg IVPUSH DAILY [facility] Last Admin: 02/19/17 11:40 Dose: 40 mg CBC, BMP 02/16/17 06:00 02/19/17 06:00 cxr - noted Physical Exam. Constitutional: Yes: No Distress, Other (NG tube) Cardiovascular: Yes: Regular Rate and Rhythm Respiratory: Yes: Diminished at bases Gastrointestinal: Yes: Normal Bowel Sounds, Soft, Abdomen, Obese, Other (CARMELITA drain). No: Distention, Tenderness Edema: No Problem List - Problems (1) Severe sepsis Code(s): A41.9 - SEPSIS, UNSPECIFIED ORGANISM; R65.20 - SEVERE SEPSIS WITHOUT SEPTIC SHOCK (2) Elevated liver function tests Code(s): R79.89 - OTHER SPECIFIED ABNORMAL FINDINGS OF BLOOD CHEMISTRY (3) Cholangitis due to bile duct calculus with obstruction Code(s): K80.31 - CALCULUS OF BILE DUCT W CHOLANGITIS, UNSP, WITH OBSTRUCTION (4) Choledocholithiasis with obstruction Code(s): K80.51 - CALCULUS OF BILE DUCT W/O CHOLANGITIS OR CHOLECYST W OBST (5) Dementia with behavioral disturbance Code(s): F03.91 - UNSPECIFIED DEMENTIA WITH BEHAVIORAL DISTURBANCE Qualifiers: Dementia type: unspecified type Qualified Code(s): F03.91 - Unspecified dementia with behavioral disturbance (6) Calculus of gallbladder 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
[2017-02-19] MEDS: METOPROLOL TARTRATE 50 MG TABLET (FP) PO SCH ×2 (16:54→21:15)
--- NOTE | 2017-02-19 17:40 | PN ---
Progress Note, Physician History of Present Illness: Pt seen and examined at bedside. NG tube placed again and feeds were just started. - Current Medication List Current Medications: Active Medications Acetaminophen (Tylenol Suppository -) 650 mg [place] Q6H PRN PRN Reason: FEVER OR PAIN Last Admin: 02/18/17 23:00 Dose: 650 mg Albuterol/Ipratropium (Duoneb -) 1 amp NEB Q4H PRN PRN Reason: SHORTNESS OF BREATH Last Admin: 02/17/17 05:45 Dose: 1 amp Artificial Tears (Artificial Tears) 1 drop OU HS [facility] Last Admin: 02/18/17 21:24 Dose: 1 drop Chlorhexidine Gluconate (Hibiclens For Decolonization -) 1 applic TP HS [facility] Last Admin: 02/18/17 21:25 Dose: Not Given Heparin Sodium (Porcine) (Heparin -) 5,000 unit SQ TID [facility] Last Admin: 02/19/17 16:54 Dose: 5,000 unit Ampicillin Sodium 1 gm/ Sodium (Chloride) 100 mls @ 200 mls/hr IVPB Q6H-IV [facility] Last Admin: 02/19/17 16:53 Dose: 200 mls/hr Meropenem (Merrem (Restricted To Id) -) 1 gm in 20 mls @ 240 mls/hr IVPUSH BID [facility] Last Admin: 02/19/17 10:00 Dose: 240 mls/hr Amino Acids (Clinimix -) 1,000 mls @ 42 mls/hr IV ASDIR [facility] Last Admin: 02/18/17 23:45 Dose: 42 mls/hr Metoprolol Tartrate (Lopressor -) 50 mg PO BID [facility] Last Admin: 02/19/17 16:54 Dose: 50 mg Metoprolol Tartrate (Lopressor Injection -) 5 mg IVPUSH Q4H PRN PRN Reason: HYPERTENSION Last Admin: 02/18/17 17:29 Dose: 5 mg Pantoprazole Sodium (Protonix Iv) 40 mg IVPUSH DAILY [facility] Last Admin: 02/19/17 11:40 Dose: 40 mg - Objective Vital Signs: Vital Signs Temperature 99.5 F 02/19/17 11:30 Pulse Rate 84 02/19/17 10:00 Respiratory Rate 20 02/19/17 14:00 Blood Pressure 112/60 02/19/17 10:00 O2 Sat by Pulse Oximetry (%) 97 02/19/17 14:00 Constitutional: Yes: Calm Eyes: Yes: Conjunctiva Clear HENT: Yes: Atraumatic Neck: Yes: Supple Cardiovascular: Yes: S1, S2 Respiratory: Yes: CTA Bilaterally Gastrointestinal: Yes: Soft Genitourinary: Yes: Incontinence Musculoskeletal: Yes: Muscle Weakness Edema: No Neurological: Yes: Lethargy Labs: CBC, BMP 02/16/17 06:00 02/19/17 06:00 INR, PTT INR 1.34 (0.82-1.09) H 02/03/17 06:00 Problem List - Problems (1) Hypertension Code(s): I10 - ESSENTIAL (PRIMARY) HYPERTENSION Qualifiers: Hypertension type: essential hypertension Qualified Code(s): I10 - Essential (primary) hypertension (2) Acute cholangitis due to calculus of bile duct with obstruction Code(s): K80.37 - CALCULUS OF BILE DUCT W ACUTE AND CHRONIC CHOLANGITIS W OBST (3) JUAN J (acute kidney injury) Code(s): N17.9 - ACUTE KIDNEY FAILURE, UNSPECIFIED Assessment/Plan Current Medications Generic Name Dose Route Start Last Admin Trade Name Freq PRN Reason Stop Dose Admin Acetaminophen 650 mg 02/16/17 02:30 02/18/17 23:00 Tylenol Suppository - MO 650 mg Q6H PRN Administration FEVER OR PAIN Albuterol/Ipratropium 1 amp 02/12/17 18:46 02/17/17 05:45 Duoneb - NEB 1 amp Q4H PRN Administration SHORTNESS OF BREATH Artificial Tears 1 drop 02/12/17 22:00 02/18/17 21:24 Artificial Tears OU 1 drop HS [facility] Administration Chlorhexidine Gluconate 1 applic 02/12/17 22:00 02/18/17 21:25 Hibiclens For Decolonization - TP Not Given HS [facility] Heparin Sodium (Porcine) 5,000 unit 02/12/17 22:00 02/19/17 16:54 Heparin - SQ 5,000 unit TID [facility] Administration Ampicillin Sodium 1 gm/ Sodium 100 mls @ 200 mls/hr 02/12/17 21:00 02/19/17 16:53 Chloride IVPB 200 mls/hr Q6H-IV [facility] Administration Meropenem 1 gm in 20 mls @ 240 mls/hr 02/12/17 22:00 02/19/17 10:00 Merrem (Restricted To Id) - IVPUSH 240 mls/hr BID [facility] Administration Amino Acids 1,000 mls @ 42 mls/hr 02/18/17 23:45 02/18/17 23:45 Clinimix - IV 42 mls/hr ASDIR [facility] Administration Metoprolol Tartrate 50 mg 02/12/17 22:00 02/19/17 16:54 Lopressor - PO 50 mg BID [facility] Administration Metoprolol Tartrate 5 mg 02/12/17 18:46 02/18/17 17:29 Lopressor Injection - IVPUSH 5 mg Q4H PRN Administration HYPERTENSION Pantoprazole Sodium 40 mg 02/13/17 10:00 02/19/17 11:40 Protonix Iv IVPUSH 40 mg DAILY [facility] Administration Impression 1. JUAN J 2. acute resp failure 3. sepsis 4. bacteremia 5. alzheimers 6. anemia 7. choledocholithiasis 8. hypernatremia 9. hypokalemia 10. malnutrition Plan - tube feeds started - can stop clinimix if he tolerated feeds - monitor lytes - cholecystostomy care - will follow PRN Dr Haynes
[2017-02-19] MEDS: ARTIFICIAL TEARS (POLYVINYL ALCOHOL 1.4%) OPTH DROPS OU SCH (21:14)
[2017-02-19] MEDS: ACETAMINOPHEN 650 MG SUPP.RECT PR PRN (22:00)
[2017-02-20] MEDS: AMINO ACIDS 4.25%/D5W 1,000 ML IV SCH (00:28)
[2017-02-20] MEDS: AMPICILLIN - 1 GM in SODIUM CHLORIDE 100 ML IVPB SCH ×4 (02:35→21:07)
[2017-02-20] MEDS: HEPARIN NA (PORCINE) 5,000 UNITS/ML 1ML VIAL SQ SCH ×3 (05:41→21:07)
--- NOTE | 2017-02-20 08:33 | PN ---
Progress Note, Physician - Current Medication List Current Medications: Active Medications Acetaminophen (Tylenol Suppository -) 650 mg [place] Q6H PRN PRN Reason: FEVER OR PAIN Last Admin: 02/19/17 22:00 Dose: 650 mg Albuterol/Ipratropium (Duoneb -) 1 amp NEB Q4H PRN PRN Reason: SHORTNESS OF BREATH Last Admin: 02/17/17 05:45 Dose: 1 amp Artificial Tears (Artificial Tears) 1 drop OU HS [facility] Last Admin: 02/19/17 21:14 Dose: 1 drop Heparin Sodium (Porcine) (Heparin -) 5,000 unit SQ TID [facility] Last Admin: 02/20/17 05:41 Dose: 5,000 unit Ampicillin Sodium 1 gm/ Sodium (Chloride) 100 mls @ 200 mls/hr IVPB Q6H-IV [facility] Last Admin: 02/20/17 02:35 Dose: 200 mls/hr Meropenem (Merrem (Restricted To Id) -) 1 gm in 20 mls @ 240 mls/hr IVPUSH BID [facility] Last Admin: 02/19/17 21:15 Dose: 240 mls/hr Metoprolol Tartrate (Lopressor -) 50 mg PO BID [facility] Last Admin: 02/19/17 21:15 Dose: 50 mg Metoprolol Tartrate (Lopressor Injection -) 5 mg IVPUSH Q4H PRN PRN Reason: HYPERTENSION Last Admin: 02/18/17 17:29 Dose: 5 mg Pantoprazole Sodium (Protonix Iv) 40 mg IVPUSH DAILY [facility] Last Admin: 02/19/17 11:40 Dose: 40 mg - Objective Vital Signs: Vital Signs Temperature 98.9 F 02/20/17 06:00 Pulse Rate 75 02/20/17 06:00 Respiratory Rate 20 02/20/17 06:00 Blood Pressure 134/57 02/20/17 06:00 O2 Sat by Pulse Oximetry (%) 98 02/19/17 20:50 Eyes: Yes: WNL, Conjunctiva Clear, EOM Intact HENT: Yes: WNL, Atraumatic, Normocephalic Neck: Yes: WNL, Supple, Trachea Midline Cardiovascular: Yes: WNL, Regular Rate and Rhythm Respiratory: Yes: WNL, Regular, CTA Bilaterally Gastrointestinal: Yes: WNL, Normal Bowel Sounds Genitourinary: Yes: WNL Musculoskeletal: Yes: WNL Extremities: Yes: WNL Edema: No Integumentary: Yes: WNL ...Motor Strength: WNL Psychiatric: Yes: WNL Labs: CBC, BMP 02/16/17 06:00 02/19/17 06:00 INR, PTT INR 1.34 (0.82-1.09) H 02/03/17 06:00 Assessment/Plan s/p Acute Hypoxic Respiratory Failure Cholangitis Klebsiella Bacteremia s/p Cholecystostomy placement Severe Sepsis improving Acute Kidney Injury improving Anemia - continue antibiotics per ID - monitor urine output, creatinine - PO per GI - aspiration precautions - DVT/GI prophylaxis
[2017-02-20] MEDS ORDERED: PT OWN MED DRAWER 7, Y5N ONE ×3 (09:18→20:33)
[2017-02-20] MEDS: PANTOPRAZOLE SODIUM 40 MG VIAL IVPUSH SCH (09:47)
[2017-02-20] MEDS: MEROPENEM 1 GM PUSH 1 GM/20 ML DISP.SYRIN IVPUSH SCH ×2 (09:48→21:07)
[2017-02-20] MEDS: METOPROLOL TARTRATE 50 MG TABLET (FP) PO SCH ×2 (09:49→21:07)
--- NOTE | 2017-02-20 09:57 | PN ---
Progress Note (short form) - Note Progress Note: PULMONARY TEMPS ARE INTERMITTENT CHRONICALLY ILL IN APPEARANCE NONVERBAL/PALE/OPENS EYES/NGT BACK IN PLACE DIMINISHED BREATH SOUNDS S1S2 RSR BS+ CHOLECSTOSTOMY TUBE WITH BROWN DRAINAGE B/L SCD'S/HEEL OFFLOADERS/NO EDEMA LABS/MEDS/NOTES/EKG/IMAGES/MICRO NOTED LAST +BLD CULTURE 02/01 KLEBSIELLA s/p Acute Hypoxic Respiratory Failure Cholangitis Klebsiella Bacteremia s/p Cholecystostomy placement Severe Sepsis improvied Acute Kidney Injury improving Anemia - continue antibiotics per ID - monitor urine output, creatinine - taper FiO2 to keep Spo2 >90% - PO per GI - aspiration precautions - DVT/GI prophylaxsis Melina LIVINGSTON MD
--- NOTE | 2017-02-20 13:27 | PN ---
Progress Note, Physician Chief Complaint: pt lethargic no distress on NG feeding - Current Medication List Current Medications: Active Medications Acetaminophen (Tylenol Suppository -) 650 mg [place] Q6H PRN PRN Reason: FEVER OR PAIN Last Admin: 02/19/17 22:00 Dose: 650 mg Albuterol/Ipratropium (Duoneb -) 1 amp NEB Q4H PRN PRN Reason: SHORTNESS OF BREATH Last Admin: 02/17/17 05:45 Dose: 1 amp Artificial Tears (Artificial Tears) 1 drop OU HS [facility] Last Admin: 02/19/17 21:14 Dose: 1 drop Heparin Sodium (Porcine) (Heparin -) 5,000 unit SQ TID [facility] Last Admin: 02/20/17 05:41 Dose: 5,000 unit Ampicillin Sodium 1 gm/ Sodium (Chloride) 100 mls @ 200 mls/hr IVPB Q6H-IV [facility] Last Admin: 02/20/17 09:48 Dose: 200 mls/hr Meropenem (Merrem (Restricted To Id) -) 1 gm in 20 mls @ 240 mls/hr IVPUSH BID [facility] Last Admin: 02/20/17 09:48 Dose: 240 mls/hr Metoprolol Tartrate (Lopressor -) 50 mg PO BID [facility] Last Admin: 02/20/17 09:49 Dose: 50 mg Metoprolol Tartrate (Lopressor Injection -) 5 mg IVPUSH Q4H PRN PRN Reason: HYPERTENSION Last Admin: 02/18/17 17:29 Dose: 5 mg Pantoprazole Sodium (Protonix Iv) 40 mg IVPUSH DAILY [facility] Last Admin: 02/20/17 09:47 Dose: 40 mg - Objective Vital Signs: Vital Signs Temperature 98.4 F 02/20/17 10:15 Pulse Rate 86 02/20/17 10:15 Respiratory Rate 18 02/20/17 10:15 Blood Pressure 141/58 02/20/17 10:15 O2 Sat by Pulse Oximetry (%) 96 02/20/17 10:15 Constitutional: Yes: No Distress Cardiovascular: Yes: Regular Rate and Rhythm Respiratory: Yes: Diminished Gastrointestinal: Yes: Normal Bowel Sounds, Soft, Other (CARMELITA drain). No: Distention, Tenderness Edema: No Labs: CBC, BMP 02/16/17 06:00 02/19/17 06:00 INR, PTT INR 1.34 (0.82-1.09) H 02/03/17 06:00 Problem List - Problems (1) Severe sepsis Code(s): A41.9 - SEPSIS, UNSPECIFIED ORGANISM; R65.20 - SEVERE SEPSIS WITHOUT SEPTIC SHOCK (2) Elevated liver function tests Code(s): R79.89 - OTHER SPECIFIED ABNORMAL FINDINGS OF BLOOD CHEMISTRY (3) Cholangitis due to bile duct calculus with obstruction Code(s): K80.31 - CALCULUS OF BILE DUCT W CHOLANGITIS, UNSP, WITH OBSTRUCTION (4) Choledocholithiasis with obstruction Code(s): K80.51 - CALCULUS OF BILE DUCT W/O CHOLANGITIS OR CHOLECYST W OBST (5) Dementia with behavioral disturbance Code(s): F03.91 - UNSPECIFIED DEMENTIA WITH BEHAVIORAL DISTURBANCE Qualifiers: Dementia type: unspecified type Qualified Code(s): F03.91 - Unspecified dementia with behavioral disturbance (6) Calculus of gallbladder 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 Code(s): K80.67 - CALCULUS OF GB AND BILE DUCT W AC AND CHR CHOLECYST W OBST (7) Hypertension Code(s): I10 - ESSENTIAL (PRIMARY) HYPERTENSION Qualifiers: Hypertension type: essential hypertension Qualified Code(s): I10 - Essential (primary) hypertension (8) Malnutrition of moderate degree Code(s): E44.0 - MODERATE PROTEIN-CALORIE MALNUTRITION Assessment/Plan PLAN s/p CARMELITA drain IV antibiotics- duration per ID , repeat blood cultures negative Had temp spike 2 days ago-- afebrile now NG feeding GI follow up noted DVT prophylaxis-- SCD
--- NOTE | 2017-02-20 16:59 | PN ---
Progress Note, Physician History of Present Illness: continues to be lethargic,opens eyes to commands ng tube reinserted feeding thro ng tube - Current Medication List Current Medications: Active Medications Acetaminophen (Tylenol Suppository -) 650 mg [place] Q6H PRN PRN Reason: FEVER OR PAIN Last Admin: 02/19/17 22:00 Dose: 650 mg Albuterol/Ipratropium (Duoneb -) 1 amp NEB Q4H PRN PRN Reason: SHORTNESS OF BREATH Last Admin: 02/17/17 05:45 Dose: 1 amp Artificial Tears (Artificial Tears) 1 drop OU HS [facility] Last Admin: 02/19/17 21:14 Dose: 1 drop Heparin Sodium (Porcine) (Heparin -) 5,000 unit SQ TID [facility] Last Admin: 02/20/17 15:53 Dose: 5,000 unit Ampicillin Sodium 1 gm/ Sodium (Chloride) 100 mls @ 200 mls/hr IVPB Q6H-IV [facility] Last Admin: 02/20/17 15:53 Dose: 200 mls/hr Meropenem (Merrem (Restricted To Id) -) 1 gm in 20 mls @ 240 mls/hr IVPUSH BID [facility] Last Admin: 02/20/17 09:48 Dose: 240 mls/hr Metoprolol Tartrate (Lopressor -) 50 mg PO BID [facility] Last Admin: 02/20/17 09:49 Dose: 50 mg Metoprolol Tartrate (Lopressor Injection -) 5 mg IVPUSH Q4H PRN PRN Reason: HYPERTENSION Last Admin: 02/18/17 17:29 Dose: 5 mg Pantoprazole Sodium (Protonix Iv) 40 mg IVPUSH DAILY [facility] Last Admin: 02/20/17 09:47 Dose: 40 mg - Objective Vital Signs: Vital Signs Temperature 98.6 F 02/20/17 14:00 Pulse Rate 71 02/20/17 14:00 Respiratory Rate 18 02/20/17 14:00 Blood Pressure 139/72 02/20/17 14:00 O2 Sat by Pulse Oximetry (%) 96 02/20/17 10:15 Constitutional: Yes: No Distress Cardiovascular: Yes: Regular Rate and Rhythm Respiratory: Yes: Regular, CTA Bilaterally Gastrointestinal: Yes: Normal Bowel Sounds, Soft, Other (ng tube in place) Extremities: Yes: WNL Neurological: Yes: Alert, Other (lethargic) Labs: CBC, BMP 02/16/17 06:00 02/19/17 06:00 INR, PTT INR 1.34 (0.82-1.09) H 02/03/17 06:00 Assessment/Plan Problem List - Problems (1) Calculus of gallbladder 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91 - Unspecified dementia with behavioral disturbance; F03.91 - Unspecified dementia with behavioral disturbance; F03.91 - Unspecified dementia with behavioral disturbance fever 6 gm negative bacteremia cx noted plan conitnue current mgmt abx for total of 14 days remains afebrile ntrition rest as per primary team
[2017-02-20] MEDS: ARTIFICIAL TEARS (POLYVINYL ALCOHOL 1.4%) OPTH DROPS OU SCH (21:07)
[2017-02-20] MEDS: ACETAMINOPHEN 650 MG SUPP.RECT PR PRN (21:08)
[2017-02-21] MEDS: AMPICILLIN - 1 GM in SODIUM CHLORIDE 100 ML IVPB SCH ×4 (02:09→20:55)
[2017-02-21] MEDS: HEPARIN NA (PORCINE) 5,000 UNITS/ML 1ML VIAL SQ SCH ×3 (05:18→21:06)
[2017-02-21 08:07] LABS: BASOPHIL 0.6 % (0-2.0); EOSINOPHIL 2.4 % (0-4.5); MCH 31.9 pg (25.7-33.7); MCHC 33.6 g/dl (32.0-35.9); MEAN CELL VOLUME 95.1 fl (80-96); MEAN PLT VOLUME 8.4 fl (7.5-11.1); NEUTROPHILS 68.2 % (42.8-82.8); PLATELET COUNT 245 K/MM3 (134-434); RDW 16.5 % (11.9-15.9); WHITE BLOOD COUNT 7.2 K/mm3 (4.0-10.0)
[2017-02-21 08:36] LABS: ALBUMIN 2.2 g/dl (3.4-5.0); ALK PHOS 241 U/L (45-117); ANION GAP 7 (8-16); CALCIUM 8.1 mg/dL (8.5-10.1); CO2 30 mmol/L (21-32); CREATININE 0.9 mg/dL (0.7-1.3); GLUCOSE,RANDOM 146 mg/dL (74-106); SGOT/AST 27 U/L (15-37); SGPT/ALT 54 U/L (12-78); TOT PROT 6.5 g/dl (6.4-8.2)
[2017-02-21] MEDS ORDERED: PT OWN MED DRAWER 7, Y5N ONE ×3 (08:36→20:46)
[2017-02-21] MEDS: METOPROLOL TARTRATE 50 MG TABLET (FP) PO SCH ×2 (09:02→21:06)
[2017-02-21] MEDS: PANTOPRAZOLE SODIUM 40 MG VIAL IVPUSH SCH (09:03)
[2017-02-21] MEDS: MEROPENEM 1 GM PUSH 1 GM/20 ML DISP.SYRIN IVPUSH SCH ×2 (09:03→21:05)
--- NOTE | 2017-02-21 09:11 | PN ---
Progress Note, Physician - Current Medication List Current Medications: Active Medications Acetaminophen (Tylenol Suppository -) 650 mg [place] Q6H PRN PRN Reason: FEVER OR PAIN Last Admin: 02/20/17 21:08 Dose: 650 mg Albuterol/Ipratropium (Duoneb -) 1 amp NEB Q4H PRN PRN Reason: SHORTNESS OF BREATH Last Admin: 02/17/17 05:45 Dose: 1 amp Artificial Tears (Artificial Tears) 1 drop OU HS [facility] Last Admin: 02/20/17 21:07 Dose: 1 drop Heparin Sodium (Porcine) (Heparin -) 5,000 unit SQ TID [facility] Last Admin: 02/21/17 05:18 Dose: 5,000 unit Ampicillin Sodium 1 gm/ Sodium (Chloride) 100 mls @ 200 mls/hr IVPB Q6H-IV [facility] Last Admin: 02/21/17 09:03 Dose: 200 mls/hr Meropenem (Merrem (Restricted To Id) -) 1 gm in 20 mls @ 240 mls/hr IVPUSH BID [facility] Last Admin: 02/21/17 09:03 Dose: 240 mls/hr Metoprolol Tartrate (Lopressor -) 50 mg PO BID [facility] Last Admin: 02/21/17 09:02 Dose: 50 mg Metoprolol Tartrate (Lopressor Injection -) 5 mg IVPUSH Q4H PRN PRN Reason: HYPERTENSION Last Admin: 02/18/17 17:29 Dose: 5 mg Pantoprazole Sodium (Protonix Iv) 40 mg IVPUSH DAILY [facility] Last Admin: 02/21/17 09:03 Dose: 40 mg - Objective Vital Signs: Vital Signs Temperature 98.1 F 02/21/17 05:19 Pulse Rate 84 02/21/17 05:19 Respiratory Rate 16 02/21/17 05:19 Blood Pressure 156/84 02/21/17 05:19 O2 Sat by Pulse Oximetry (%) 100 02/20/17 22:00 Eyes: Yes: WNL, Conjunctiva Clear, EOM Intact HENT: Yes: WNL, Atraumatic, Normocephalic Neck: Yes: WNL, Supple, Trachea Midline Cardiovascular: Yes: WNL, Regular Rate and Rhythm Respiratory: Yes: WNL, Regular, CTA Bilaterally Gastrointestinal: Yes: WNL, Normal Bowel Sounds Genitourinary: Yes: WNL Musculoskeletal: Yes: WNL Extremities: Yes: WNL Edema: No Integumentary: Yes: WNL ...Motor Strength: WNL Psychiatric: Yes: WNL Labs: CBC, BMP 02/21/17 06:15 02/21/17 06:15 INR, PTT INR 1.34 (0.82-1.09) H 02/03/17 06:00 Assessment/Plan s/p Acute Hypoxic Respiratory Failure Cholangitis Klebsiella Bacteremia s/p Cholecystostomy placement Severe Sepsis improving Acute Kidney Injury improving Anemia - continue antibiotics per ID - monitor urine output, creatinine - PO per GI - aspiration precautions - DVT/GI prophylaxis
--- NOTE | 2017-02-21 09:24 | PN ---
Progress Note, Physician Chief Complaint: awake today , but not following my face /voice commands on NG feeding contracted extremities - Current Medication List Current Medications: Active Medications Acetaminophen (Tylenol Suppository -) 650 mg [place] Q6H PRN PRN Reason: FEVER OR PAIN Last Admin: 02/20/17 21:08 Dose: 650 mg Albuterol/Ipratropium (Duoneb -) 1 amp NEB Q4H PRN PRN Reason: SHORTNESS OF BREATH Last Admin: 02/17/17 05:45 Dose: 1 amp Artificial Tears (Artificial Tears) 1 drop OU HS [facility] Last Admin: 02/20/17 21:07 Dose: 1 drop Heparin Sodium (Porcine) (Heparin -) 5,000 unit SQ TID [facility] Last Admin: 02/21/17 05:18 Dose: 5,000 unit Ampicillin Sodium 1 gm/ Sodium (Chloride) 100 mls @ 200 mls/hr IVPB Q6H-IV [facility] Last Admin: 02/21/17 09:03 Dose: 200 mls/hr Meropenem (Merrem (Restricted To Id) -) 1 gm in 20 mls @ 240 mls/hr IVPUSH BID [facility] Last Admin: 02/21/17 09:03 Dose: 240 mls/hr Metoprolol Tartrate (Lopressor -) 50 mg PO BID [facility] Last Admin: 02/21/17 09:02 Dose: 50 mg Metoprolol Tartrate (Lopressor Injection -) 5 mg IVPUSH Q4H PRN PRN Reason: HYPERTENSION Last Admin: 02/18/17 17:29 Dose: 5 mg Pantoprazole Sodium (Protonix Iv) 40 mg IVPUSH DAILY [facility] Last Admin: 02/21/17 09:03 Dose: 40 mg - Objective Vital Signs: Vital Signs Temperature 98.1 F 02/21/17 05:19 Pulse Rate 84 02/21/17 05:19 Respiratory Rate 16 02/21/17 05:19 Blood Pressure 156/84 02/21/17 05:19 O2 Sat by Pulse Oximetry (%) 100 02/20/17 22:00 Constitutional: Yes: No Distress Cardiovascular: Yes: Regular Rate and Rhythm Respiratory: Yes: Diminished Gastrointestinal: Yes: Normal Bowel Sounds, Soft, Abdomen, Obese, Other (CARMELITA drain). No: Distention, Tenderness Edema: Yes Edema: LLE: Trace, RLE: Trace Labs: CBC, BMP 02/21/17 06:15 02/21/17 06:15 INR, PTT INR 1.34 (0.82-1.09) H 02/03/17 06:00 Problem List - Problems (1) Severe sepsis Code(s): A41.9 - SEPSIS, UNSPECIFIED ORGANISM; R65.20 - SEVERE SEPSIS WITHOUT SEPTIC SHOCK (2) Elevated liver function tests Code(s): R79.89 - OTHER SPECIFIED ABNORMAL FINDINGS OF BLOOD CHEMISTRY (3) Cholangitis due to bile duct calculus with obstruction Code(s): K80.31 - CALCULUS OF BILE DUCT W CHOLANGITIS, UNSP, WITH OBSTRUCTION (4) Choledocholithiasis with obstruction Code(s): K80.51 - CALCULUS OF BILE DUCT W/O CHOLANGITIS OR CHOLECYST W OBST (5) Dementia with behavioral disturbance Code(s): F03.91 - UNSPECIFIED DEMENTIA WITH BEHAVIORAL DISTURBANCE Qualifiers: Dementia type: unspecified type Qualified Code(s): F03.91 - Unspecified dementia with behavioral disturbance (6) Calculus of gallbladder 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 Code(s): K80.67 - CALCULUS OF GB AND BILE DUCT W AC AND CHR CHOLECYST W OBST (7) Hypertension Code(s): I10 - ESSENTIAL (PRIMARY) HYPERTENSION Qualifiers: Hypertension type: essential hypertension Qualified Code(s): I10 - Essential (primary) hypertension (8) Malnutrition of moderate degree Code(s): E44.0 - MODERATE PROTEIN-CALORIE MALNUTRITION Assessment/Plan PLAN s/p CARMELITA drain IV antibiotics- duration per ID , repeat blood cultures negative afebrile awake , not following commands family now wishing to make him DNR- will get documents ready NG feeding GI follow up noted DVT prophylaxis-- SCD
--- NOTE | 2017-02-21 11:34 | PN ---
Progress Note (short form) - Note Progress Note: PULMONARY TEMPS ARE INTERMITTENT CHRONICALLY ILL IN APPEARANCE NONVERBAL/PALE/OPENS EYES/NGT BACK IN PLACE DIMINISHED BREATH SOUNDS S1S2 RSR BS+ CHOLECSTOSTOMY TUBE WITH BROWN DRAINAGE B/L SCD'S/HEEL OFFLOADERS/NO EDEMA LABS/MEDS/NOTES/EKG/IMAGES/MICRO NOTED LAST +BLD CULTURE 02/01 KLEBSIELLA s/p Acute Hypoxic Respiratory Failure Cholangitis Klebsiella Bacteremia s/p Cholecystostomy placement Severe Sepsis improvied Acute Kidney Injury improving Anemia - continue antibiotics per ID - monitor urine output, creatinine - taper FiO2 to keep Spo2 >90% - PO per GI - aspiration precautions - DVT/GI prophylaxsis - family requesting DNR/DNI R MIKI CORCORAN
[2017-02-21] MEDS: ARTIFICIAL TEARS (POLYVINYL ALCOHOL 1.4%) OPTH DROPS OU SCH (21:06)
[2017-02-22] MEDS ORDERED: PT OWN MED DRAWER 7, Y5N ONE ×2 (02:02→21:39)
[2017-02-22] MEDS: AMPICILLIN - 1 GM in SODIUM CHLORIDE 100 ML IVPB SCH ×4 (02:05→20:06)
[2017-02-22] MEDS: HEPARIN NA (PORCINE) 5,000 UNITS/ML 1ML VIAL SQ SCH ×3 (06:12→21:42)
[2017-02-22] MEDS: METOPROLOL TARTRATE 50 MG TABLET (FP) PO SCH ×2 (10:12→21:43)
[2017-02-22] MEDS: PANTOPRAZOLE SODIUM 40 MG VIAL IVPUSH SCH (10:12)
[2017-02-22] MEDS: MEROPENEM 1 GM PUSH 1 GM/20 ML DISP.SYRIN IVPUSH SCH ×2 (10:12→21:43)
--- NOTE | 2017-02-22 10:27 | PN ---
Progress Note, Physician Chief Complaint: lethargic opens eyes when name called no distress - Current Medication List Current Medications: Active Medications Acetaminophen (Tylenol Suppository -) 650 mg [place] Q6H PRN PRN Reason: FEVER OR PAIN Last Admin: 02/20/17 21:08 Dose: 650 mg Albuterol/Ipratropium (Duoneb -) 1 amp NEB Q4H PRN PRN Reason: SHORTNESS OF BREATH Last Admin: 02/17/17 05:45 Dose: 1 amp Artificial Tears (Artificial Tears) 1 drop OU HS [facility] Last Admin: 02/21/17 21:06 Dose: 1 drop Heparin Sodium (Porcine) (Heparin -) 5,000 unit SQ TID [facility] Last Admin: 02/22/17 06:12 Dose: 5,000 unit Ampicillin Sodium 1 gm/ Sodium (Chloride) 100 mls @ 200 mls/hr IVPB Q6H-IV [facility] Last Admin: 02/22/17 09:11 Dose: 200 mls/hr Meropenem (Merrem (Restricted To Id) -) 1 gm in 20 mls @ 240 mls/hr IVPUSH BID [facility] Last Admin: 02/22/17 10:12 Dose: 240 mls/hr Metoprolol Tartrate (Lopressor -) 50 mg PO BID [facility] Last Admin: 02/22/17 10:12 Dose: 50 mg Metoprolol Tartrate (Lopressor Injection -) 5 mg IVPUSH Q4H PRN PRN Reason: HYPERTENSION Last Admin: 02/18/17 17:29 Dose: 5 mg Pantoprazole Sodium (Protonix Iv) 40 mg IVPUSH DAILY [facility] Last Admin: 02/22/17 10:12 Dose: 40 mg - Objective Vital Signs: Vital Signs Temperature 98.1 F 02/22/17 06:16 Pulse Rate 94 H 02/22/17 10:00 Respiratory Rate 20 02/22/17 10:00 Blood Pressure 150/72 02/22/17 10:00 O2 Sat by Pulse Oximetry (%) 100 02/21/17 21:00 Constitutional: Yes: No Distress Cardiovascular: Yes: Regular Rate and Rhythm Respiratory: Yes: Diminished Gastrointestinal: Yes: Normal Bowel Sounds, Soft, Other (CARMELITA drain). No: Distention, Tenderness Edema: Yes Edema: LLE: Trace, RLE: Trace Labs: CBC, BMP 02/21/17 06:15 02/21/17 06:15 INR, PTT INR 1.34 (0.82-1.09) H 02/03/17 06:00 Problem List - Problems (1) Severe sepsis Code(s): A41.9 - SEPSIS, UNSPECIFIED ORGANISM; R65.20 - SEVERE SEPSIS WITHOUT SEPTIC SHOCK (2) Elevated liver function tests Code(s): R79.89 - OTHER SPECIFIED ABNORMAL FINDINGS OF BLOOD CHEMISTRY (3) Cholangitis due to bile duct calculus with obstruction Code(s): K80.31 - CALCULUS OF BILE DUCT W CHOLANGITIS, UNSP, WITH OBSTRUCTION (4) Choledocholithiasis with obstruction Code(s): K80.51 - CALCULUS OF BILE DUCT W/O CHOLANGITIS OR CHOLECYST W OBST (5) Dementia with behavioral disturbance Code(s): F03.91 - UNSPECIFIED DEMENTIA WITH BEHAVIORAL DISTURBANCE Qualifiers: Dementia type: unspecified type Qualified Code(s): F03.91 - Unspecified dementia with behavioral disturbance (6) Calculus of gallbladder 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 Code(s): K80.67 - CALCULUS OF GB AND BILE DUCT W AC AND CHR CHOLECYST W OBST (7) Hypertension Code(s): I10 - ESSENTIAL (PRIMARY) HYPERTENSION Qualifiers: Hypertension type: essential hypertension Qualified Code(s): I10 - Essential (primary) hypertension (8) Malnutrition of moderate degree Code(s): E44.0 - MODERATE PROTEIN-CALORIE MALNUTRITION Assessment/Plan PLAN s/p CARMELITA drain IV antibiotics- duration per ID , repeat blood cultures negative afebrile awake , not following commands, opens eyes to name today lethargic family now wishing to make him DNR- will get documents ready , palliatice care eval NG feeding GI follow up noted DVT prophylaxis-- SCD
--- NOTE | 2017-02-22 10:43 | PN ---
Progress Note, Physician History of Present Illness: No purposeful response to verbal stimuli. Not in distress. Tolering NG feeding. - Current Medication List Current Medications: Active Medications Acetaminophen (Tylenol Suppository -) 650 mg [place] Q6H PRN PRN Reason: FEVER OR PAIN Last Admin: 02/20/17 21:08 Dose: 650 mg Albuterol/Ipratropium (Duoneb -) 1 amp NEB Q4H PRN PRN Reason: SHORTNESS OF BREATH Last Admin: 02/17/17 05:45 Dose: 1 amp Artificial Tears (Artificial Tears) 1 drop OU HS [facility] Last Admin: 02/21/17 21:06 Dose: 1 drop Heparin Sodium (Porcine) (Heparin -) 5,000 unit SQ TID [facility] Last Admin: 02/22/17 06:12 Dose: 5,000 unit Ampicillin Sodium 1 gm/ Sodium (Chloride) 100 mls @ 200 mls/hr IVPB Q6H-IV [facility] Last Admin: 02/22/17 09:11 Dose: 200 mls/hr Meropenem (Merrem (Restricted To Id) -) 1 gm in 20 mls @ 240 mls/hr IVPUSH BID [facility] Last Admin: 02/22/17 10:12 Dose: 240 mls/hr Metoprolol Tartrate (Lopressor -) 50 mg PO BID [facility] Last Admin: 02/22/17 10:12 Dose: 50 mg Metoprolol Tartrate (Lopressor Injection -) 5 mg IVPUSH Q4H PRN PRN Reason: HYPERTENSION Last Admin: 02/18/17 17:29 Dose: 5 mg Pantoprazole Sodium (Protonix Iv) 40 mg IVPUSH DAILY [facility] Last Admin: 02/22/17 10:12 Dose: 40 mg - Objective Vital Signs: Vital Signs Temperature 98.1 F 02/22/17 06:16 Pulse Rate 94 H 02/22/17 10:00 Respiratory Rate 20 02/22/17 10:00 Blood Pressure 150/72 02/22/17 10:00 O2 Sat by Pulse Oximetry (%) 100 02/21/17 21:00 Constitutional: Yes: No Distress, Calm Gastrointestinal: Yes: Soft. No: Melena, Tenderness, Vomiting Neurological: Yes: Lethargy Labs: CBC, BMP 02/21/17 06:15 02/21/17 06:15 INR, PTT INR 1.34 (0.82-1.09) H 02/03/17 06:00 CBCD WBC 7.2 K/mm3 (4.0-10.0) 02/21/17 06:15 RBC 3.26 M/mm3 (4.00-5.60) L 02/21/17 06:15 Hgb 10.4 GM/dL (11.7-16.9) L 02/21/17 06:15 Hct 31.0 % (35.4-49) L 02/21/17 06:15 MCV 95.1 fl (80-96) 02/21/17 06:15 MCHC 33.6 g/dl (32.0-35.9) 02/21/17 06:15 RDW 16.5 % (11.9-15.9) H 02/21/17 06:15 Plt Count 245 K/MM3 (134-434) 02/21/17 06:15 MPV 8.4 fl (7.5-11.1) 02/21/17 06:15 CMP Sodium 148 mmol/L (136-145) H 02/21/17 06:15 Potassium 3.7 mmol/L (3.5-5.1) 02/21/17 06:15 Chloride 111 mmol/L (98-107) H 02/21/17 06:15 Carbon Dioxide 30 mmol/L (21-32) 02/21/17 06:15 Anion Gap 7 (8-16) L 02/21/17 06:15 BUN 44 mg/dL (7-18) H 02/21/17 06:15 Creatinine 0.9 mg/dL (0.7-1.3) 02/21/17 06:15 Creat Clearance w eGFR > 60 (>60) 02/21/17 06:15 Calcium 8.1 mg/dL (8.5-10.1) L 02/21/17 06:15 Total Bilirubin 1.0 mg/dL (0.2-1.0) D 02/21/17 06:15 AST 27 U/L (15-37) D 02/21/17 06:15 ALT 54 U/L (12-78) 02/21/17 06:15 Alkaline Phosphatase 241 U/L (45-117) H D 02/21/17 06:15 Total Protein 6.5 g/dl (6.4-8.2) 02/21/17 06:15 Albumin 2.2 g/dl (3.4-5.0) L 02/21/17 06:15 Problem List - Problems (1) Failure to thrive in adult Code(s): R62.7 - ADULT FAILURE TO THRIVE (2) Cholangitis due to bile duct calculus with obstruction Code(s): K80.31 - CALCULUS OF BILE DUCT W CHOLANGITIS, UNSP, WITH OBSTRUCTION (3) Cholelithiasis Code(s): K80.20 - CALCULUS OF GALLBLADDER W/O CHOLECYSTITIS W/O OBSTRUCTION (4) Choledocholithiasis with obstruction Code(s): K80.51 - CALCULUS OF BILE DUCT W/O CHOLANGITIS OR CHOLECYST W OBST Assessment/Plan Tolerating NG feeding. No obvious improvement in mental and functional status NG care as per protocol Aspiration precautions
--- NOTE | 2017-02-22 11:36 | PN ---
Progress Note, [employer] - Note Progress Note: NGT in place. Pt lethaRGIC, NOT AROUSABLE. Selected Entries 02/18/17 02/18/17 02/18/17 02:00 06:00 10:00 Supper Temperature 100.7 F H 99.8 F H 97.4 F L 02/18/17 02/18/17 02/18/17 16:12 16:59 18:00 Supper Temperature 98.8 F 98.8 F 99.0 F 02/18/17 02/18/17 02/19/17 22:00 23:30 02:00 Supper Temperature 98.0 F 101.2 F H 97.5 F L 02/19/17 02/19/17 02/19/17 06:00 10:00 11:30 Supper Temperature 97.5 F L 99.4 F 99.5 F 02/19/17 02/19/17 02/20/17 18:12 22:00 06:00 Supper Temperature 98.6 F 99.9 F H 98.9 F 02/20/17 02/20/17 02/20/17 10:15 14:00 18:00 Supper Temperature 98.4 F 98.6 F 98.4 F 02/20/17 02/21/17 02/21/17 22:00 05:19 08:54 Supper Temperature 99.0 F 98.1 F 99 F 02/21/17 02/21/17 02/21/17 14:31 18:45 21:00 Supper NPO NPO Temperature 99.2 F 98.4 F 02/22/17 06:16 Supper Temperature 98.1 F Laboratory Tests 02/21/17 06:15 WBC 7.2 Case reviewed with staff. Prognosis for functional recovery is poor. Pending family end of life decisions regarding TF/comfort care/hospice. Palliative care.
--- NOTE | 2017-02-22 12:52 | PN ---
Progress Note, Physician History of Present Illness: PULMONARY POORLY RESPONSIVE,-RESP DISTRESS - Current Medication List Current Medications: Active Medications Acetaminophen (Tylenol Suppository -) 650 mg [place] Q6H PRN PRN Reason: FEVER OR PAIN Last Admin: 02/20/17 21:08 Dose: 650 mg Artificial Tears (Artificial Tears) 1 drop OU HS [facility] Last Admin: 02/21/17 21:06 Dose: 1 drop Heparin Sodium (Porcine) (Heparin -) 5,000 unit SQ TID [facility] Last Admin: 02/22/17 06:12 Dose: 5,000 unit Ampicillin Sodium 1 gm/ Sodium (Chloride) 100 mls @ 200 mls/hr IVPB Q6H-IV [facility] Last Admin: 02/22/17 09:11 Dose: 200 mls/hr Meropenem (Merrem (Restricted To Id) -) 1 gm in 20 mls @ 240 mls/hr IVPUSH BID [facility] Last Admin: 02/22/17 10:12 Dose: 240 mls/hr Metoprolol Tartrate (Lopressor -) 50 mg PO BID [facility] Last Admin: 02/22/17 10:12 Dose: 50 mg Metoprolol Tartrate (Lopressor Injection -) 5 mg IVPUSH Q4H PRN PRN Reason: HYPERTENSION Last Admin: 02/18/17 17:29 Dose: 5 mg Pantoprazole Sodium (Protonix Iv) 40 mg IVPUSH DAILY [facility] Last Admin: 02/22/17 10:12 Dose: 40 mg - Objective Vital Signs: Vital Signs Temperature 98.1 F 02/22/17 06:16 Pulse Rate 81 02/22/17 10:30 Respiratory Rate 20 02/22/17 10:00 Blood Pressure 150/72 02/22/17 10:00 O2 Sat by Pulse Oximetry (%) 98 02/22/17 10:30 Constitutional: Yes: Thin, Other (POORLY RESPONSIVE) Eyes: Yes: WNL HENT: Yes: WNL Neck: Yes: WNL Cardiovascular: Yes: Pulse Irregular, S1, S2 Respiratory: Yes: Diminished, Rhonchi Gastrointestinal: Yes: Normal Bowel Sounds, Soft Extremities: Yes: WNL Edema: No Labs: CBC, BMP 02/21/17 06:15 02/21/17 06:15 INR, PTT INR 1.34 (0.82-1.09) H 02/03/17 06:00 Problem List - Problems (1) JUAN J (acute kidney injury) Code(s): N17.9 - ACUTE KIDNEY FAILURE, UNSPECIFIED (2) Acute cholangitis due to calculus of bile duct with obstruction Code(s): K80.37 - CALCULUS OF BILE DUCT W ACUTE AND CHRONIC CHOLANGITIS W OBST (3) Klebsiella pneumoniae sepsis Code(s): A41.4 - SEPSIS DUE TO ANAEROBES (4) Sepsis due to Gram-negative organism with acute respiratory failure Code(s): A41.50 - GRAM-NEGATIVE SEPSIS, UNSPECIFIED; R65.20 - SEVERE SEPSIS WITHOUT SEPTIC SHOCK; J96.00 - ACUTE RESPIRATORY FAILURE, UNSP W HYPOXIA OR HYPERCAPNIA (5) Severe sepsis Code(s): A41.9 - SEPSIS, UNSPECIFIED ORGANISM; R65.20 - SEVERE SEPSIS WITHOUT SEPTIC SHOCK Assessment/Plan A/P s/p Acute Hypoxic Respiratory Failure Cholangitis Klebsiella Bacteremia s/p Cholecystostomy placement Severe Sepsis improving Acute Kidney Injury improving Anemia ? Pneumonia left base - antibiotics per ID - monitor urine output, creatinine - FiO2 to keep Spo2 >90% - aspiration precautions - DVT/GI prophylaxis - abg - aspiration precautions - prognosis poor DR YOUNG
--- NOTE | 2017-02-22 15:17 | PN ---
Progress Note, Physician History of Present Illness: Pt seen and examined at bedside. He is tolerating feeds. - Current Medication List Current Medications: Active Medications Acetaminophen (Tylenol Suppository -) 650 mg [place] Q6H PRN PRN Reason: FEVER OR PAIN Last Admin: 02/20/17 21:08 Dose: 650 mg Artificial Tears (Artificial Tears) 1 drop OU HS [facility] Last Admin: 02/21/17 21:06 Dose: 1 drop Heparin Sodium (Porcine) (Heparin -) 5,000 unit SQ TID [facility] Last Admin: 02/22/17 06:12 Dose: 5,000 unit Ampicillin Sodium 1 gm/ Sodium (Chloride) 100 mls @ 200 mls/hr IVPB Q6H-IV [facility] Last Admin: 02/22/17 09:11 Dose: 200 mls/hr Meropenem (Merrem (Restricted To Id) -) 1 gm in 20 mls @ 240 mls/hr IVPUSH BID [facility] Last Admin: 02/22/17 10:12 Dose: 240 mls/hr Metoprolol Tartrate (Lopressor -) 50 mg PO BID [facility] Last Admin: 02/22/17 10:12 Dose: 50 mg Metoprolol Tartrate (Lopressor Injection -) 5 mg IVPUSH Q4H PRN PRN Reason: HYPERTENSION Last Admin: 02/18/17 17:29 Dose: 5 mg Pantoprazole Sodium (Protonix Iv) 40 mg IVPUSH DAILY [facility] Last Admin: 02/22/17 10:12 Dose: 40 mg - Objective Vital Signs: Vital Signs Temperature 98.1 F 02/22/17 06:16 Pulse Rate 81 02/22/17 10:30 Respiratory Rate 20 02/22/17 10:00 Blood Pressure 150/72 02/22/17 10:00 O2 Sat by Pulse Oximetry (%) 98 02/22/17 13:24 Constitutional: Yes: Calm Eyes: Yes: Conjunctiva Clear HENT: Yes: Atraumatic Neck: Yes: Supple Cardiovascular: Yes: S1, S2 Respiratory: Yes: CTA Bilaterally Gastrointestinal: Yes: Soft Genitourinary: Yes: Incontinence Musculoskeletal: Yes: Muscle Weakness Edema: No Neurological: Yes: Lethargy Labs: CBC, BMP 02/21/17 06:15 02/21/17 06:15 INR, PTT INR 1.34 (0.82-1.09) H 02/03/17 06:00 Problem List - Problems (1) Hypertension Code(s): I10 - ESSENTIAL (PRIMARY) HYPERTENSION Qualifiers: Hypertension type: essential hypertension Qualified Code(s): I10 - Essential (primary) hypertension (2) Acute cholangitis due to calculus of bile duct with obstruction Code(s): K80.37 - CALCULUS OF BILE DUCT W ACUTE AND CHRONIC CHOLANGITIS W OBST (3) JUAN J (acute kidney injury) Code(s): N17.9 - ACUTE KIDNEY FAILURE, UNSPECIFIED Assessment/Plan Current Medications Generic Name Dose Route Start Last Admin Trade Name Freq PRN Reason Stop Dose Admin Acetaminophen 650 mg 02/16/17 02:30 02/20/17 21:08 Tylenol Suppository - NC 650 mg Q6H PRN Administration FEVER OR PAIN Artificial Tears 1 drop 02/12/17 22:00 02/21/17 21:06 Artificial Tears OU 1 drop HS HOANG Administration Heparin Sodium (Porcine) 5,000 unit 02/20/17 06:00 02/22/17 06:12 Heparin - SQ 5,000 unit TID HOANG Administration Ampicillin Sodium 1 gm/ Sodium 100 mls @ 200 mls/hr 02/19/17 21:00 02/22/17 09:11 Chloride IVPB 200 mls/hr Q6H-IV HAONG Administration Meropenem 1 gm in 20 mls @ 240 mls/hr 02/19/17 22:00 02/22/17 10:12 Merrem (Restricted To Id) - IVPUSH 240 mls/hr BID HOANG Administration Metoprolol Tartrate 50 mg 02/12/17 22:00 02/22/17 10:12 Lopressor - PO 50 mg BID HOANG Administration Metoprolol Tartrate 5 mg 02/12/17 18:46 02/18/17 17:29 Lopressor Injection - IVPUSH 5 mg Q4H PRN Administration HYPERTENSION Pantoprazole Sodium 40 mg 02/13/17 10:00 02/22/17 10:12 Protonix Iv IVPUSH 40 mg DAILY HOANG Administration Impression 1. JUAN J 2. acute resp failure 3. sepsis 4. bacteremia 5. alzheimers 6. anemia 7. choledocholithiasis 8. hypernatremia 9. hypokalemia 10. malnutrition Plan - sodium is elevated - will increase free water with feeds - repeat labs in am - cholecystostomy care - will follow PRN Dr Haynes
--- NOTE | 2017-02-22 16:19 | PN ---
Progress Note, Physician History of Present Illness: lethargic patient stable on ng tube feeding tolerating feeding - Current Medication List Current Medications: Active Medications Acetaminophen (Tylenol Suppository -) 650 mg [place] Q6H PRN PRN Reason: FEVER OR PAIN Last Admin: 02/20/17 21:08 Dose: 650 mg Artificial Tears (Artificial Tears) 1 drop OU HS [facility] Last Admin: 02/21/17 21:06 Dose: 1 drop Heparin Sodium (Porcine) (Heparin -) 5,000 unit SQ TID [facility] Last Admin: 02/22/17 14:00 Dose: 5,000 unit Ampicillin Sodium 1 gm/ Sodium (Chloride) 100 mls @ 200 mls/hr IVPB Q6H-IV [facility] Last Admin: 02/22/17 15:38 Dose: 200 mls/hr Meropenem (Merrem (Restricted To Id) -) 1 gm in 20 mls @ 240 mls/hr IVPUSH BID [facility] Last Admin: 02/22/17 10:12 Dose: 240 mls/hr Metoprolol Tartrate (Lopressor -) 50 mg PO BID [facility] Last Admin: 02/22/17 10:12 Dose: 50 mg Metoprolol Tartrate (Lopressor Injection -) 5 mg IVPUSH Q4H PRN PRN Reason: HYPERTENSION Last Admin: 02/18/17 17:29 Dose: 5 mg Pantoprazole Sodium (Protonix Iv) 40 mg IVPUSH DAILY [facility] Last Admin: 02/22/17 10:12 Dose: 40 mg - Objective Vital Signs: Vital Signs Temperature 99.3 F 02/22/17 16:04 Pulse Rate 80 02/22/17 16:04 Respiratory Rate 13 02/22/17 16:04 Blood Pressure 154/63 02/22/17 16:04 O2 Sat by Pulse Oximetry (%) 98 02/22/17 13:24 Constitutional: Yes: No Distress, Calm Cardiovascular: Yes: Regular Rate and Rhythm Respiratory: Yes: Regular, CTA Bilaterally Gastrointestinal: Yes: Normal Bowel Sounds, Soft, Other (choley tube in place) Musculoskeletal: Yes: WNL Extremities: Yes: WNL Neurological: Yes: Alert, Oriented Psychiatric: Yes: Alert, Oriented Labs: CBC, BMP 02/21/17 06:15 02/21/17 06:15 INR, PTT INR 1.34 (0.82-1.09) H 02/03/17 06:00 Assessment/Plan Problem List - Problems (1) Calculus of gallbladder 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91 - Unspecified dementia with behavioral disturbance; F03.91 - Unspecified dementia with behavioral disturbance; F03.91 - Unspecified dementia with behavioral disturbance fever 6 gm negative bacteremia cx noted plan conitnue current mgmt abx for total of 14 days remains afebrile nutrition rest as per primary team
[2017-02-22] MEDS: ARTIFICIAL TEARS (POLYVINYL ALCOHOL 1.4%) OPTH DROPS OU SCH (21:42)
[2017-02-23] MEDS: AMPICILLIN - 1 GM in SODIUM CHLORIDE 100 ML IVPB SCH ×4 (01:59→21:19)
[2017-02-23] MEDS: HEPARIN NA (PORCINE) 5,000 UNITS/ML 1ML VIAL SQ SCH ×3 (06:51→21:20)
[2017-02-23 07:21] LABS: ANION GAP 5 (8-16); CALCIUM 7.9 mg/dL (8.5-10.1); CO2 35 mmol/L (21-32); CREATININE 0.8 mg/dL (0.7-1.3); GLUCOSE,RANDOM 117 mg/dL (74-106)
--- NOTE | 2017-02-23 08:41 | PN ---
Progress Note, Physician Chief Complaint: lethargic opens eyes when name called no distress - Current Medication List Current Medications: Active Medications Acetaminophen (Tylenol Suppository -) 650 mg [place] Q6H PRN PRN Reason: FEVER OR PAIN Last Admin: 02/20/17 21:08 Dose: 650 mg Artificial Tears (Artificial Tears) 1 drop OU HS [facility] Last Admin: 02/22/17 21:42 Dose: 1 drop Heparin Sodium (Porcine) (Heparin -) 5,000 unit SQ TID [facility] Last Admin: 02/23/17 06:51 Dose: 5,000 unit Ampicillin Sodium 1 gm/ Sodium (Chloride) 100 mls @ 200 mls/hr IVPB Q6H-IV [facility] Last Admin: 02/23/17 01:59 Dose: 200 mls/hr Meropenem (Merrem (Restricted To Id) -) 1 gm in 20 mls @ 240 mls/hr IVPUSH BID [facility] Last Admin: 02/22/17 21:43 Dose: 240 mls/hr Metoprolol Tartrate (Lopressor -) 50 mg PO BID [facility] Last Admin: 02/22/17 21:43 Dose: Not Given Metoprolol Tartrate (Lopressor Injection -) 5 mg IVPUSH Q4H PRN PRN Reason: HYPERTENSION Last Admin: 02/18/17 17:29 Dose: 5 mg Pantoprazole Sodium (Protonix Iv) 40 mg IVPUSH DAILY [facility] Last Admin: 02/22/17 10:12 Dose: 40 mg - Objective Vital Signs: Vital Signs Temperature 98.2 F 02/23/17 06:00 Pulse Rate 89 02/23/17 06:00 Respiratory Rate 18 02/23/17 06:00 Blood Pressure 128/57 02/23/17 06:00 O2 Sat by Pulse Oximetry (%) 97 02/22/17 20:37 Constitutional: Yes: No Distress Cardiovascular: Yes: Regular Rate and Rhythm Respiratory: Yes: Diminished Gastrointestinal: Yes: Normal Bowel Sounds, Soft, Abdomen, Obese, Other (CARMELITA drain). No: Distention, Tenderness Edema: Yes Labs: CBC, BMP 02/21/17 06:15 02/23/17 06:49 INR, PTT INR 1.34 (0.82-1.09) H 02/03/17 06:00 Problem List - Problems (1) Severe sepsis Code(s): A41.9 - SEPSIS, UNSPECIFIED ORGANISM; R65.20 - SEVERE SEPSIS WITHOUT SEPTIC SHOCK (2) Elevated liver function tests Code(s): R79.89 - OTHER SPECIFIED ABNORMAL FINDINGS OF BLOOD CHEMISTRY (3) Cholangitis due to bile duct calculus with obstruction Code(s): K80.31 - CALCULUS OF BILE DUCT W CHOLANGITIS, UNSP, WITH OBSTRUCTION (4) Choledocholithiasis with obstruction Code(s): K80.51 - CALCULUS OF BILE DUCT W/O CHOLANGITIS OR CHOLECYST W OBST (5) Dementia with behavioral disturbance Code(s): F03.91 - UNSPECIFIED DEMENTIA WITH BEHAVIORAL DISTURBANCE Qualifiers: Dementia type: unspecified type Qualified Code(s): F03.91 - Unspecified dementia with behavioral disturbance (6) Calculus of gallbladder 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 Code(s): K80.67 - CALCULUS OF GB AND BILE DUCT W AC AND CHR CHOLECYST W OBST (7) Hypertension Code(s): I10 - ESSENTIAL (PRIMARY) HYPERTENSION Qualifiers: Hypertension type: essential hypertension Qualified Code(s): I10 - Essential (primary) hypertension (8) Malnutrition of moderate degree Code(s): E44.0 - MODERATE PROTEIN-CALORIE MALNUTRITION Assessment/Plan PLAN s/p CARMELITA drain IV antibiotics- duration per ID - total 14 days, repeat blood cultures negative afebrile awake , not following commands, opens eyes to name today lethargic family now wishing to make him DNR- will get documents ready , palliative care alphonso Spoke with son- Sunday Menezes today-- he does want his father to get peg tube, wishes for GI to speak to him about getting procedure done He does not want hospice yet but both he and his mother wants the pt to be DNR and DNI . NG feeding - restart his antidepressant meds per son wish DVT prophylaxis-- SCD
--- NOTE | 2017-02-23 09:14 | PN ---
Progress Note, Physician Chief Complaint: no acute distress - Current Medication List Current Medications: Active Medications Acetaminophen (Tylenol Suppository -) 650 mg [place] Q6H PRN PRN Reason: FEVER OR PAIN Last Admin: 02/20/17 21:08 Dose: 650 mg Artificial Tears (Artificial Tears) 1 drop OU HS [facility] Last Admin: 02/22/17 21:42 Dose: 1 drop Heparin Sodium (Porcine) (Heparin -) 5,000 unit SQ TID [facility] Last Admin: 02/23/17 06:51 Dose: 5,000 unit Ampicillin Sodium 1 gm/ Sodium (Chloride) 100 mls @ 200 mls/hr IVPB Q6H-IV [facility] Last Admin: 02/23/17 09:04 Dose: 200 mls/hr Meropenem (Merrem (Restricted To Id) -) 1 gm in 20 mls @ 240 mls/hr IVPUSH BID [facility] Last Admin: 02/22/17 21:43 Dose: 240 mls/hr Metoprolol Tartrate (Lopressor -) 50 mg PO BID [facility] Last Admin: 02/22/17 21:43 Dose: Not Given Metoprolol Tartrate (Lopressor Injection -) 5 mg IVPUSH Q4H PRN PRN Reason: HYPERTENSION Last Admin: 02/18/17 17:29 Dose: 5 mg Pantoprazole Sodium (Protonix Iv) 40 mg IVPUSH DAILY [facility] Last Admin: 02/22/17 10:12 Dose: 40 mg - Objective Vital Signs: Vital Signs Temperature 98.2 F 02/23/17 06:00 Pulse Rate 89 02/23/17 06:00 Respiratory Rate 18 02/23/17 06:00 Blood Pressure 128/57 02/23/17 06:00 O2 Sat by Pulse Oximetry (%) 97 02/22/17 20:37 Constitutional: Yes: No Distress Cardiovascular: Yes: Regular Rate and Rhythm Respiratory: Yes: Other (= breath sounds bilaterally) Gastrointestinal: Yes: Soft Edema: No Labs: CBC, BMP 02/21/17 06:15 02/23/17 06:49 INR, PTT INR 1.34 (0.82-1.09) H 02/03/17 06:00 Microbiology 02/16/17 23:30 Blood - Peripheral Venous Blood Culture - Final NO GROWTH AFTER 5 DAYS INCUBATION 02/16/17 23:30 Blood - Peripheral Venous Blood Culture - Final NO GROWTH AFTER 5 DAYS INCUBATION Laboratory Tests 02/21/17 02/23/17 06:15 06:49 WBC 7.2 Hgb 10.4 L Plt Count 245 Sodium 152 H Potassium 4.5 D BUN 44 H Creatinine 0.8 - ....Imaging EKG: Image Reviewed (NSR with occasional VPCs and couplets) Assessment/Plan Assessment/Plan s/p Acute Hypoxic Respiratory Failure Cholangitis Klebsiella Bacteremia s/p Cholecystostomy placement Severe Sepsis improving Acute Kidney Injury improving Anemia PLAN: - continue antibiotics per ID - monitor urine output, creatinine - PO per GI - aspiration precautions - DVT/GI prophylaxis
--- NOTE | 2017-02-23 10:14 | PN ---
Progress Note, Physician History of Present Illness: No purposeful response to verbal stimuli. Not in distress. Tolering NG feeding. - Current Medication List Current Medications: Active Medications Acetaminophen (Tylenol Suppository -) 650 mg [place] Q6H PRN PRN Reason: FEVER OR PAIN Last Admin: 02/20/17 21:08 Dose: 650 mg Artificial Tears (Artificial Tears) 1 drop OU HS [facility] Last Admin: 02/22/17 21:42 Dose: 1 drop Heparin Sodium (Porcine) (Heparin -) 5,000 unit SQ TID [facility] Last Admin: 02/23/17 06:51 Dose: 5,000 unit Ampicillin Sodium 1 gm/ Sodium (Chloride) 100 mls @ 200 mls/hr IVPB Q6H-IV [facility] Last Admin: 02/23/17 09:04 Dose: 200 mls/hr Meropenem (Merrem (Restricted To Id) -) 1 gm in 20 mls @ 240 mls/hr IVPUSH BID [facility] Last Admin: 02/22/17 21:43 Dose: 240 mls/hr Metoprolol Tartrate (Lopressor -) 50 mg PO BID [facility] Last Admin: 02/22/17 21:43 Dose: Not Given Metoprolol Tartrate (Lopressor Injection -) 5 mg IVPUSH Q4H PRN PRN Reason: HYPERTENSION Last Admin: 02/18/17 17:29 Dose: 5 mg Pantoprazole Sodium (Protonix Iv) 40 mg IVPUSH DAILY [facility] Last Admin: 02/22/17 10:12 Dose: 40 mg Polyethylene Glycol (Miralax (For Daily Use) -) 17 gm PO BID [facility] - Objective Vital Signs: Vital Signs Temperature 98.6 F 02/23/17 10:00 Pulse Rate 96 H 02/23/17 10:00 Respiratory Rate 18 02/23/17 10:00 Blood Pressure 137/75 02/23/17 10:00 O2 Sat by Pulse Oximetry (%) 97 02/22/17 20:37 Constitutional: Yes: No Distress, Calm Eyes: Yes: Conjunctiva Clear HENT: Yes: Atraumatic Neck: Yes: Supple Respiratory: Yes: Regular Gastrointestinal: Yes: Soft. No: Distention, Vomiting Labs: CBC, BMP 02/21/17 06:15 02/23/17 06:49 INR, PTT INR 1.34 (0.82-1.09) H 02/03/17 06:00 Problem List - Problems (1) Failure to thrive in adult Code(s): R62.7 - ADULT FAILURE TO THRIVE (2) Cholangitis due to bile duct calculus with obstruction Code(s): K80.31 - CALCULUS OF BILE DUCT W CHOLANGITIS, UNSP, WITH OBSTRUCTION (3) Cholelithiasis Code(s): K80.20 - CALCULUS OF GALLBLADDER W/O CHOLECYSTITIS W/O OBSTRUCTION (4) Choledocholithiasis with obstruction Code(s): K80.51 - CALCULUS OF BILE DUCT W/O CHOLANGITIS OR CHOLECYST W OBST Assessment/Plan Tolerating NG feeding. Clinically the same. No obvious improvement in mental and functional status NG care as per protocol Aspiration precautions Palliative care
[2017-02-23] MEDS: PANTOPRAZOLE SODIUM 40 MG VIAL IVPUSH SCH (11:26)
[2017-02-23] MEDS: POLYETHYLENE GLYCOL 3350 119 GM BTL PO SCH ×2 (11:26→21:18)
[2017-02-23] MEDS: METOPROLOL TARTRATE 50 MG TABLET (FP) PO SCH ×2 (11:26→21:20)
[2017-02-23] MEDS: MEROPENEM 1 GM PUSH 1 GM/20 ML DISP.SYRIN IVPUSH SCH ×2 (11:26→21:20)
--- NOTE | 2017-02-23 11:36 | PN ---
Progress Note, Physician History of Present Illness: pulmonary poorly responsive ,-resp distress - Current Medication List Current Medications: Active Medications Acetaminophen (Tylenol Suppository -) 650 mg [place] Q6H PRN PRN Reason: FEVER OR PAIN Last Admin: 02/20/17 21:08 Dose: 650 mg Artificial Tears (Artificial Tears) 1 drop OU HS [facility] Last Admin: 02/22/17 21:42 Dose: 1 drop Heparin Sodium (Porcine) (Heparin -) 5,000 unit SQ TID [facility] Last Admin: 02/23/17 06:51 Dose: 5,000 unit Ampicillin Sodium 1 gm/ Sodium (Chloride) 100 mls @ 200 mls/hr IVPB Q6H-IV [facility] Last Admin: 02/23/17 09:04 Dose: 200 mls/hr Meropenem (Merrem (Restricted To Id) -) 1 gm in 20 mls @ 240 mls/hr IVPUSH BID [facility] Last Admin: 02/23/17 11:26 Dose: 240 mls/hr Metoprolol Tartrate (Lopressor -) 50 mg PO BID [facility] Last Admin: 02/23/17 11:26 Dose: 50 mg Metoprolol Tartrate (Lopressor Injection -) 5 mg IVPUSH Q4H PRN PRN Reason: HYPERTENSION Last Admin: 02/18/17 17:29 Dose: 5 mg Pantoprazole Sodium (Protonix Iv) 40 mg IVPUSH DAILY [facility] Last Admin: 02/23/17 11:26 Dose: 40 mg Polyethylene Glycol (Miralax (For Daily Use) -) 17 gm PO BID [facility] Last Admin: 02/23/17 11:26 Dose: 17 gm - Objective Vital Signs: Vital Signs Temperature 98.6 F 02/23/17 10:00 Pulse Rate 96 H 02/23/17 10:00 Respiratory Rate 18 02/23/17 10:00 Blood Pressure 137/75 02/23/17 10:00 O2 Sat by Pulse Oximetry (%) 97 02/23/17 09:00 Constitutional: Yes: Well Nourished, Other (poorly responsive) Eyes: Yes: WNL HENT: Yes: WNL Neck: Yes: WNL Cardiovascular: Yes: Regular Rate and Rhythm, S1, S2 Respiratory: Yes: Diminished Gastrointestinal: Yes: Normal Bowel Sounds, Soft Extremities: Yes: WNL Edema: No Labs: CBC, BMP 02/23/17 06:49 INR, PTT INR 1.34 (0.82-1.09) H 02/03/17 06:00 Problem List - Problems (1) JUAN J (acute kidney injury) Code(s): N17.9 - ACUTE KIDNEY FAILURE, UNSPECIFIED (2) Acute cholangitis due to calculus of bile duct with obstruction Code(s): K80.37 - CALCULUS OF BILE DUCT W ACUTE AND CHRONIC CHOLANGITIS W OBST (3) Klebsiella pneumoniae sepsis Code(s): A41.4 - SEPSIS DUE TO ANAEROBES (4) Sepsis due to Gram-negative organism with acute respiratory failure Code(s): A41.50 - GRAM-NEGATIVE SEPSIS, UNSPECIFIED; R65.20 - SEVERE SEPSIS WITHOUT SEPTIC SHOCK; J96.00 - ACUTE RESPIRATORY FAILURE, UNSP W HYPOXIA OR HYPERCAPNIA (5) Severe sepsis Code(s): A41.9 - SEPSIS, UNSPECIFIED ORGANISM; R65.20 - SEVERE SEPSIS WITHOUT SEPTIC SHOCK Assessment/Plan A/P s/p Acute Hypoxic Respiratory Failure Cholangitis Klebsiella Bacteremia s/p Cholecystostomy placement Severe Sepsis improving Acute Kidney Injury improving Anemia ? Pneumonia left base - continue antibiotics per ID - monitor urine output, creatinine - FiO2 to keep Spo2 >90% - aspiration precautions - DVT/GI prophylaxis - aspiration precautions - prognosis poor DR YOUNG
--- NOTE | 2017-02-23 13:08 | PN ---
Progress Note, Physician History of Present Illness: Pt seen and examined at bedside. He remain lethargic. He is tolerating feeds. - Current Medication List Current Medications: Active Medications Acetaminophen (Tylenol Suppository -) 650 mg [place] Q6H PRN PRN Reason: FEVER OR PAIN Last Admin: 02/20/17 21:08 Dose: 650 mg Artificial Tears (Artificial Tears) 1 drop OU HS [facility] Last Admin: 02/22/17 21:42 Dose: 1 drop Heparin Sodium (Porcine) (Heparin -) 5,000 unit SQ TID [facility] Last Admin: 02/23/17 06:51 Dose: 5,000 unit Ampicillin Sodium 1 gm/ Sodium (Chloride) 100 mls @ 200 mls/hr IVPB Q6H-IV [facility] Last Admin: 02/23/17 09:04 Dose: 200 mls/hr Meropenem (Merrem (Restricted To Id) -) 1 gm in 20 mls @ 240 mls/hr IVPUSH BID [facility] Last Admin: 02/23/17 11:26 Dose: 240 mls/hr Metoprolol Tartrate (Lopressor -) 50 mg PO BID [facility] Last Admin: 02/23/17 11:26 Dose: 50 mg Metoprolol Tartrate (Lopressor Injection -) 5 mg IVPUSH Q4H PRN PRN Reason: HYPERTENSION Last Admin: 02/18/17 17:29 Dose: 5 mg Pantoprazole Sodium (Protonix Iv) 40 mg IVPUSH DAILY [facility] Last Admin: 02/23/17 11:26 Dose: 40 mg Polyethylene Glycol (Miralax (For Daily Use) -) 17 gm PO BID [facility] Last Admin: 02/23/17 11:26 Dose: 17 gm - Objective Vital Signs: Vital Signs Temperature 98.6 F 02/23/17 10:00 Pulse Rate 96 H 02/23/17 10:00 Respiratory Rate 18 02/23/17 10:00 Blood Pressure 137/75 02/23/17 10:00 O2 Sat by Pulse Oximetry (%) 97 02/23/17 12:02 Constitutional: Yes: Calm Eyes: Yes: Conjunctiva Clear HENT: Yes: Atraumatic Cardiovascular: Yes: S1, S2 Respiratory: Yes: On Nasal O2 Gastrointestinal: Yes: Soft, Other (cholecystostomy tube) Genitourinary: Yes: Incontinence Musculoskeletal: Yes: Muscle Weakness Edema: No Neurological: Yes: Lethargy Labs: CBC, BMP 02/21/17 06:15 02/23/17 06:49 INR, PTT INR 1.34 (0.82-1.09) H 02/03/17 06:00 Problem List - Problems (1) Hypertension Code(s): I10 - ESSENTIAL (PRIMARY) HYPERTENSION Qualifiers: Hypertension type: essential hypertension Qualified Code(s): I10 - Essential (primary) hypertension (2) Acute cholangitis due to calculus of bile duct with obstruction Code(s): K80.37 - CALCULUS OF BILE DUCT W ACUTE AND CHRONIC CHOLANGITIS W OBST (3) JUAN J (acute kidney injury) Code(s): N17.9 - ACUTE KIDNEY FAILURE, UNSPECIFIED Assessment/Plan Current Medications Generic Name Dose Route Start Last Admin Trade Name Freq PRN Reason Stop Dose Admin Acetaminophen 650 mg 02/16/17 02:30 02/20/17 21:08 Tylenol Suppository - OK 650 mg Q6H PRN Administration FEVER OR PAIN Artificial Tears 1 drop 02/12/17 22:00 02/22/17 21:42 Artificial Tears OU 1 drop HS [facility] Administration Heparin Sodium (Porcine) 5,000 unit 02/20/17 06:00 02/23/17 06:51 Heparin - SQ 5,000 unit TID [facility] Administration Ampicillin Sodium 1 gm/ Sodium 100 mls @ 200 mls/hr 02/19/17 21:00 02/23/17 09:04 Chloride IVPB 200 mls/hr Q6H-IV [facility] Administration Meropenem 1 gm in 20 mls @ 240 mls/hr 02/19/17 22:00 02/23/17 11:26 Merrem (Restricted To Id) - IVPUSH 240 mls/hr BID [facility] Administration Metoprolol Tartrate 50 mg 02/12/17 22:00 02/23/17 11:26 Lopressor - PO 50 mg BID [facility] Administration Metoprolol Tartrate 5 mg 02/12/17 18:46 02/18/17 17:29 Lopressor Injection - IVPUSH 5 mg Q4H PRN Administration HYPERTENSION Pantoprazole Sodium 40 mg 02/13/17 10:00 02/23/17 11:26 Protonix Iv IVPUSH 40 mg DAILY [facility] Administration Polyethylene Glycol 17 gm 02/23/17 10:00 02/23/17 11:26 Miralax (For Daily Use) - PO 17 gm BID [facility] Administration Impression 1. JUAN J 2. acute resp failure 3. sepsis 4. bacteremia 5. alzheimers 6. anemia 7. choledocholithiasis 8. hypernatremia 9. hypokalemia 10. malnutrition Plan - sodium is worse today - total free water deficit is 3.1 liters. We will need about 2.6 liters to get pt to a sodium is 142 - will increase free water with feeds - repeat labs in am - cholecystostomy care - will follow Dr Haynes
[2017-02-23] MEDS ORDERED: OLANZAPINE 5 MG, OLANZAPINE 2.5 MG NGT SCH (14:00)
[2017-02-23] MEDS ORDERED: OLANZapine 7.5 MG TABLET NGT SCH (14:00)
--- NOTE | 2017-02-23 14:23 | PN ---
Progress Note, [employer]IDE W[employer]MAN - Note Progress Note: Lethargic. NGT in place. Prognosis for functional recovery is poor. Pending family end of life decisions regarding TF/comfort care/hospice. Palliative care.
--- NOTE | 2017-02-23 14:26 | PN ---
Progress Note, Physician History of Present Illness: conitnues to be lethargic mild fever overall stable - Current Medication List Current Medications: Active Medications Acetaminophen (Tylenol Suppository -) 650 mg [place] Q6H PRN PRN Reason: FEVER OR PAIN Last Admin: 02/20/17 21:08 Dose: 650 mg Artificial Tears (Artificial Tears) 1 drop OU HS [facility] Last Admin: 02/22/17 21:42 Dose: 1 drop Escitalopram Oxalate (Lexapro -) 5 mg NGT DAILY [facility] Heparin Sodium (Porcine) (Heparin -) 5,000 unit SQ TID [facility] Last Admin: 02/23/17 06:51 Dose: 5,000 unit Ampicillin Sodium 1 gm/ Sodium (Chloride) 100 mls @ 200 mls/hr IVPB Q6H-IV [facility] Last Admin: 02/23/17 09:04 Dose: 200 mls/hr Meropenem (Merrem (Restricted To Id) -) 1 gm in 20 mls @ 240 mls/hr IVPUSH BID [facility] Last Admin: 02/23/17 11:26 Dose: 240 mls/hr Metoprolol Tartrate (Lopressor -) 50 mg PO BID [facility] Last Admin: 02/23/17 11:26 Dose: 50 mg Metoprolol Tartrate (Lopressor Injection -) 5 mg IVPUSH Q4H PRN PRN Reason: HYPERTENSION Last Admin: 02/18/17 17:29 Dose: 5 mg Olanzapine 5 mg/ Olanzapine 2. (5 mg) 7.5 mg NGT HS [facility] Pantoprazole Sodium (Protonix Iv) 40 mg IVPUSH DAILY [facility] Last Admin: 02/23/17 11:26 Dose: 40 mg Polyethylene Glycol (Miralax (For Daily Use) -) 17 gm PO BID [facility] Last Admin: 02/23/17 11:26 Dose: 17 gm - Objective Vital Signs: Vital Signs Temperature 98.6 F 02/23/17 10:00 Pulse Rate 96 H 02/23/17 10:00 Respiratory Rate 18 02/23/17 10:00 Blood Pressure 137/75 02/23/17 10:00 O2 Sat by Pulse Oximetry (%) 97 02/23/17 12:02 Constitutional: Yes: No Distress, Calm Cardiovascular: Yes: Regular Rate and Rhythm Respiratory: Yes: Regular, CTA Bilaterally Gastrointestinal: Yes: Normal Bowel Sounds, Soft Musculoskeletal: Yes: WNL Extremities: Yes: WNL Neurological: Yes: Alert, Other Psychiatric: Yes: Other Labs: CBC, BMP 02/21/17 06:15 02/23/17 06:49 INR, PTT INR 1.34 (0.82-1.09) H 02/03/17 06:00 Assessment/Plan Problem List - Problems (1) Calculus of gallbladder 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91 - Unspecified dementia with behavioral disturbance; F03.91 - Unspecified dementia with behavioral disturbance; F03.91 - Unspecified dementia with behavioral disturbance fever 6 gm negative bacteremia cx noted plan conitue abx will need a ttotal of 14 days monitor for fever rest as per primary team
[2017-02-23] MEDS ORDERED: OLANZapine 5 MG TABLET ONE (14:53)
[2017-02-23] MEDS ORDERED: OLANZapine 2.5 MG TABLET ONE (14:53)
[2017-02-23] MEDS: ESCITALOPRAM OXALATE 10 MG TABLET (FP) NGT SCH (15:15)
[2017-02-23] MEDS: OLANZAPINE 5 MG, OLANZAPINE 2.5 MG NGT SCH (15:15)
--- NOTE | 2017-02-23 16:58 | PN ---
Progress Note (short form) - Note Progress Note: The pt's son and are aware of lack of progress/improvement in overall condition. Discussed with pt's son, Sunday @ [phone] last night. The family is requesting PEG placement. Plan PEG for Wednesday Continue NGT feeding with aspiration precautions CBC, CMP, PT, INR Problem List - Problems (1) Failure to thrive in adult Code(s): R62.7 - ADULT FAILURE TO THRIVE (2) Cholangitis due to bile duct calculus with obstruction Code(s): K80.31 - CALCULUS OF BILE DUCT W CHOLANGITIS, UNSP, WITH OBSTRUCTION (3) Cholelithiasis Code(s): K80.20 - CALCULUS OF GALLBLADDER W/O CHOLECYSTITIS W/O OBSTRUCTION (4) Choledocholithiasis with obstruction Code(s): K80.51 - CALCULUS OF BILE DUCT W/O CHOLANGITIS OR CHOLECYST W OBST
[2017-02-23] MEDS ORDERED: PT OWN MED DRAWER 7, Y5N ONE (21:12)
[2017-02-23] MEDS: ARTIFICIAL TEARS (POLYVINYL ALCOHOL 1.4%) OPTH DROPS OU SCH (21:19)
[2017-02-23] MEDS: ACETAMINOPHEN 650 MG SUPP.RECT PR PRN (23:00)
[2017-02-23 23:56] LABS: URINE APPEARANCE CLEAR; URINE BILIRUBIN NEGATIVE (NEGATIVE); URINE BLOOD NEGATIVE (NEGATIVE); URINE COLOR YELLOW; URINE GLUCOSE (UA) NEGATIVE (NEGATIVE); URINE KETONE NEGATIVE (NEGATIVE); URINE NITRITE NEGATIVE (NEGATIVE); URINE PROTEIN 1+ (NEGATIVE); URINE UROBILINOGEN NEGATIVE mg/dL (0.2-1.0)
[2017-02-24 00:11] LABS: URINE MUCUS RARE; URINE RBC 15 /hpf (0-3); URINE WBC 2 /hpf (3-5)
[2017-02-24] MEDS ORDERED: PT OWN MED DRAWER 7, Y5N ONE ×3 (03:13→20:49)
[2017-02-24] MEDS: AMPICILLIN - 1 GM in SODIUM CHLORIDE 100 ML IVPB SCH ×4 (03:15→20:58)
[2017-02-24] MEDS: HEPARIN NA (PORCINE) 5,000 UNITS/ML 1ML VIAL SQ SCH ×3 (05:13→21:02)
--- NOTE | 2017-02-24 08:43 | PN ---
Progress Note, Physician Chief Complaint: no sig clinical change - Current Medication List Current Medications: Active Medications Acetaminophen (Tylenol Suppository -) 650 mg MO Q6H PRN PRN Reason: FEVER OR PAIN Last Admin: 02/23/17 23:00 Dose: 650 mg Artificial Tears (Artificial Tears) 1 drop OU HS [facility] Last Admin: 02/23/17 21:19 Dose: 1 drop Escitalopram Oxalate (Lexapro -) 5 mg NGT DAILY [facility] Last Admin: 02/23/17 15:15 Dose: 5 mg Heparin Sodium (Porcine) (Heparin -) 5,000 unit SQ TID [facility] Last Admin: 02/24/17 05:13 Dose: 5,000 unit Ampicillin Sodium 1 gm/ Sodium (Chloride) 100 mls @ 200 mls/hr IVPB Q6H-IV [facility] Last Admin: 02/24/17 03:15 Dose: 200 mls/hr Meropenem (Merrem (Restricted To Id) -) 1 gm in 20 mls @ 240 mls/hr IVPUSH BID [facility] Last Admin: 02/23/17 21:20 Dose: 240 mls/hr Metoprolol Tartrate (Lopressor -) 50 mg PO BID [facility] Last Admin: 02/23/17 21:20 Dose: 50 mg Metoprolol Tartrate (Lopressor Injection -) 5 mg IVPUSH Q4H PRN PRN Reason: HYPERTENSION Last Admin: 02/18/17 17:29 Dose: 5 mg Olanzapine 5 mg/ Olanzapine 2. (5 mg) 7.5 mg NGT HS [facility] Last Admin: 02/23/17 15:15 Dose: 7.5 mg Pantoprazole Sodium (Protonix Iv) 40 mg IVPUSH DAILY [facility] Last Admin: 02/23/17 11:26 Dose: 40 mg Polyethylene Glycol (Miralax (For Daily Use) -) 17 gm PO BID [facility] Last Admin: 02/23/17 21:18 Dose: Not Given - Objective Vital Signs: Vital Signs Temperature 100.3 F H 02/24/17 00:00 Pulse Rate 95 H 02/23/17 21:00 Respiratory Rate 18 02/23/17 21:00 Blood Pressure 127/68 02/23/17 21:00 O2 Sat by Pulse Oximetry (%) 100 02/23/17 21:00 Constitutional: Yes: No Distress Cardiovascular: Yes: Regular Rate and Rhythm Respiratory: Yes: Other (= breath sounds bilaterally) Gastrointestinal: Yes: Soft Edema: No Neurological: Yes: Alert, Oriented Labs: CBC, BMP 02/21/17 06:15 02/23/17 06:49 INR, PTT INR 1.34 (0.82-1.09) H 02/03/17 06:00 - ....Imaging EKG: Image Reviewed Assessment/Plan Assessment/Plan s/p Acute Hypoxic Respiratory Failure Cholangitis Klebsiella Bacteremia s/p Cholecystostomy placement Severe Sepsis improving Acute Kidney Injury improving Anemia PLAN: - continue antibiotics per ID - monitor urine output, creatinine - PO per GI - aspiration precautions - DVT/GI prophylaxis, supportive care
[2017-02-24] MEDS: METOPROLOL TARTRATE 50 MG TABLET (FP) PO SCH ×2 (10:39→21:03)
[2017-02-24] MEDS: POLYETHYLENE GLYCOL 3350 119 GM BTL PO SCH ×2 (10:39→21:03)
[2017-02-24] MEDS: PANTOPRAZOLE SODIUM 40 MG VIAL IVPUSH SCH (10:39)
[2017-02-24] MEDS: ESCITALOPRAM OXALATE 10 MG TABLET (FP) NGT SCH (10:39)
[2017-02-24 10:48] LABS: URINE LEUK ESTERASE Negative (NEGATIVE)
--- NOTE | 2017-02-24 11:39 | PN ---
Progress Note, Physician Chief Complaint: condition remains the same Lethargic opens eyes on verbal stimuli has occasional cough - Current Medication List Current Medications: Active Medications Acetaminophen (Tylenol Suppository -) 650 mg [place] Q6H PRN PRN Reason: FEVER OR PAIN Last Admin: 02/23/17 23:00 Dose: 650 mg Artificial Tears (Artificial Tears) 1 drop OU HS [facility] Last Admin: 02/23/17 21:19 Dose: 1 drop Escitalopram Oxalate (Lexapro -) 5 mg NGT DAILY [facility] Last Admin: 02/24/17 10:39 Dose: 5 mg Heparin Sodium (Porcine) (Heparin -) 5,000 unit SQ TID [facility] Last Admin: 02/24/17 05:13 Dose: 5,000 unit Ampicillin Sodium 1 gm/ Sodium (Chloride) 100 mls @ 200 mls/hr IVPB Q6H-IV [facility] Last Admin: 02/24/17 03:15 Dose: 200 mls/hr Meropenem (Merrem (Restricted To Id) -) 1 gm in 20 mls @ 240 mls/hr IVPUSH BID [facility] Last Admin: 02/23/17 21:20 Dose: 240 mls/hr Metoprolol Tartrate (Lopressor -) 50 mg PO BID [facility] Last Admin: 02/24/17 10:39 Dose: 50 mg Metoprolol Tartrate (Lopressor Injection -) 5 mg IVPUSH Q4H PRN PRN Reason: HYPERTENSION Last Admin: 02/18/17 17:29 Dose: 5 mg Olanzapine 5 mg/ Olanzapine 2. (5 mg) 7.5 mg NGT HS [facility] Last Admin: 02/23/17 15:15 Dose: 7.5 mg Pantoprazole Sodium (Protonix Iv) 40 mg IVPUSH DAILY [facility] Last Admin: 02/24/17 10:39 Dose: 40 mg Polyethylene Glycol (Miralax (For Daily Use) -) 17 gm PO BID [facility] Last Admin: 02/24/17 10:39 Dose: Not Given - Objective Vital Signs: Vital Signs Temperature 99.7 F H 02/24/17 09:30 Pulse Rate 87 02/24/17 09:30 Respiratory Rate 20 02/24/17 09:30 Blood Pressure 173/81 02/24/17 09:30 O2 Sat by Pulse Oximetry (%) 100 02/23/17 21:00 Constitutional: Yes: No Distress Cardiovascular: Yes: Regular Rate and Rhythm Respiratory: Yes: Diminished Gastrointestinal: Yes: Normal Bowel Sounds, Soft, Abdomen, Obese, Other (CARMELITA drain+). No: Distention, Tenderness Edema: Yes Edema: LLE: Trace, RLE: Trace Labs: CBC, BMP 02/21/17 06:15 02/23/17 06:49 INR, PTT INR 1.34 (0.82-1.09) H 02/03/17 06:00 - ....Imaging Chest X-ray: Image Reviewed Problem List - Problems (1) Severe sepsis Code(s): A41.9 - SEPSIS, UNSPECIFIED ORGANISM; R65.20 - SEVERE SEPSIS WITHOUT SEPTIC SHOCK (2) Elevated liver function tests Code(s): R79.89 - OTHER SPECIFIED ABNORMAL FINDINGS OF BLOOD CHEMISTRY (3) Cholangitis due to bile duct calculus with obstruction Code(s): K80.31 - CALCULUS OF BILE DUCT W CHOLANGITIS, UNSP, WITH OBSTRUCTION (4) Choledocholithiasis with obstruction Code(s): K80.51 - CALCULUS OF BILE DUCT W/O CHOLANGITIS OR CHOLECYST W OBST (5) Dementia with behavioral disturbance Code(s): F03.91 - UNSPECIFIED DEMENTIA WITH BEHAVIORAL DISTURBANCE Qualifiers: Dementia type: unspecified type Qualified Code(s): F03.91 - Unspecified dementia with behavioral disturbance (6) Calculus of gallbladder 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 Code(s): K80.67 - CALCULUS OF GB AND BILE DUCT W AC AND CHR CHOLECYST W OBST (7) Hypertension Code(s): I10 - ESSENTIAL (PRIMARY) HYPERTENSION Qualifiers: Hypertension type: essential hypertension Qualified Code(s): I10 - Essential (primary) hypertension (8) Malnutrition of moderate degree Code(s): E44.0 - MODERATE PROTEIN-CALORIE MALNUTRITION (9) Recurrent fever Code(s): A68.9 - RELAPSING FEVER, UNSPECIFIED Assessment/Plan PLAN s/p CARMELITA drain IV antibiotics- duration per ID - total 14 days noted elevated temps-- cultures repeated CXR noted-- no infiltrates or effusion left skin folld ? pneumothorax-- no PTX on my observation--will do another CXR tomorrow awake , not following commands, opens eyes to name today lethargic family now wishing to make him DNR- will get documents ready , palliative care eval Peg tube placement planned NG feeding - restart his antidepressant meds per son wish recurrent fevers can be possibly due to silent aspirations cultures done check labs DVT prophylaxis-- SCD
--- NOTE | 2017-02-24 12:07 | PN ---
Progress Note, Physician History of Present Illness: pulmonary poorly responsive,-resp distress - Current Medication List Current Medications: Active Medications Acetaminophen (Tylenol Suppository -) 650 mg DC Q6H PRN PRN Reason: FEVER OR PAIN Last Admin: 02/23/17 23:00 Dose: 650 mg Artificial Tears (Artificial Tears) 1 drop OU HS [facility]S [facility] Last Admin: 02/23/17 21:19 Dose: 1 drop Escitalopram Oxalate (Lexapro -) 5 mg NGT DAILY [facility] Last Admin: 02/24/17 10:39 Dose: 5 mg Heparin Sodium (Porcine) (Heparin -) 5,000 unit SQ TID [facility]S [facility] Last Admin: 02/24/17 05:13 Dose: 5,000 unit Ampicillin Sodium 1 gm/ Sodium (Chloride) 100 mls @ 200 mls/hr IVPB Q6H-IV [facility] B[facility]S AT [facility] Last Admin: 02/24/17 03:15 Dose: 200 mls/hr Meropenem (Merrem (Restricted To Id) -) 1 gm in 20 mls @ 240 mls/hr IVPUSH BID [facility]S [facility] Last Admin: 02/23/17 21:20 Dose: 240 mls/hr Metoprolol Tartrate (Lopressor -) 50 mg PO BID [facility] Last Admin: 02/24/17 10:39 Dose: 50 mg Metoprolol Tartrate (Lopressor Injection -) 5 mg IVPUSH Q4H PRN PRN Reason: HYPERTENSION Last Admin: 02/18/17 17:29 Dose: 5 mg Olanzapine 5 mg/ Olanzapine 2. (5 mg) 7.5 mg NGT HS [facility] B[facility]S [facility] Last Admin: 02/23/17 15:15 Dose: 7.5 mg Pantoprazole Sodium (Protonix Iv) 40 mg IVPUSH DAILY [facility]S [facility] Last Admin: 02/24/17 10:39 Dose: 40 mg Polyethylene Glycol (Miralax (For Daily Use) -) 17 gm PO BID [facility]S [facility] Last Admin: 02/24/17 10:39 Dose: Not Given - Objective Vital Signs: Vital Signs Temperature 99.7 F H 02/24/17 09:30 Pulse Rate 87 02/24/17 09:30 Respiratory Rate 20 02/24/17 09:30 Blood Pressure 173/81 02/24/17 09:30 O2 Sat by Pulse Oximetry (%) 100 02/23/17 21:00 Constitutional: Yes: Well Nourished, Other (poorly responsive) Eyes: Yes: WNL HENT: Yes: WNL Neck: Yes: WNL Cardiovascular: Yes: Regular Rate and Rhythm, S1, S2 Respiratory: Yes: Diminished Gastrointestinal: Yes: Normal Bowel Sounds, Soft Extremities: Yes: WNL Edema: No Labs: - ....Imaging Chest X-ray: Report Reviewed, Image Reviewed Problem List - Problems (1) JUAN J (acute kidney injury) Code(s): N17.9 - ACUTE KIDNEY FAILURE, UNSPECIFIED (2) Acute cholangitis due to calculus of bile duct with obstruction Code(s): K80.37 - CALCULUS OF BILE DUCT W ACUTE AND CHRONIC CHOLANGITIS W OBST (3) Klebsiella pneumoniae sepsis Code(s): A41.4 - SEPSIS DUE TO ANAEROBES (4) Sepsis due to Gram-negative organism with acute respiratory failure Code(s): A41.50 - GRAM-NEGATIVE SEPSIS, UNSPECIFIED; R65.20 - SEVERE SEPSIS WITHOUT SEPTIC SHOCK; J96.00 - ACUTE RESPIRATORY FAILURE, UNSP W HYPOXIA OR HYPERCAPNIA (5) Severe sepsis Code(s): A41.9 - SEPSIS, UNSPECIFIED ORGANISM; R65.20 - SEVERE SEPSIS WITHOUT SEPTIC SHOCK Assessment/Plan A/P s/p Acute Hypoxic Respiratory Failure Cholangitis Klebsiella Bacteremia s/p Cholecystostomy placement Severe Sepsis improving Acute Kidney Injury improving Anemia ? Pneumonia left base likely aspiration - continue antibiotics per ID - monitor urine output, creatinine - FiO2 to keep Spo2 >90% - aspiration precautions - DVT/GI prophylaxis - aspiration precautions - prognosis poor - chest x-ray DR YOUNG
--- NOTE | 2017-02-24 12:46 | PN ---
Progress Note, SHIP PURSER - Note Progress Note: Lethargic.cxr noted. Selected Entries 02/23/17 02/23/17 02/23/17 06:00 10:00 13:55 Supper Temperature 98.2 F 98.6 F 98.8 F 02/23/17 02/23/17 02/23/17 17:00 23:00 23:43 Supper NPO Temperature 100 F H 101 F H 02/24/17 02/24/17 00:00 09:30 Supper Temperature 100.3 F H 99.7 F H Plan is for PEG on 02/04. No further f/u indicated at this time.
[2017-02-24] MEDS: MEROPENEM 1 GM PUSH 1 GM/20 ML DISP.SYRIN IVPUSH SCH ×2 (12:56→21:03)
--- NOTE | 2017-02-24 13:17 | PN ---
Progress Note, Physician History of Present Illness: Pt seen and examine at bedside. He remains lethargic. Pt had a fever. - Current Medication List Current Medications: Active Medications Acetaminophen (Tylenol Suppository -) 650 mg [place] Q6H PRN PRN Reason: FEVER OR PAIN Last Admin: 02/23/17 23:00 Dose: 650 mg Artificial Tears (Artificial Tears) 1 drop OU HS [facility] Last Admin: 02/23/17 21:19 Dose: 1 drop Escitalopram Oxalate (Lexapro -) 5 mg NGT DAILY [facility] Last Admin: 02/24/17 10:39 Dose: 5 mg Heparin Sodium (Porcine) (Heparin -) 5,000 unit SQ TID [facility] Last Admin: 02/24/17 05:13 Dose: 5,000 unit Ampicillin Sodium 1 gm/ Sodium (Chloride) 100 mls @ 200 mls/hr IVPB Q6H-IV [facility] Last Admin: 02/24/17 12:56 Dose: 200 mls/hr Meropenem (Merrem (Restricted To Id) -) 1 gm in 20 mls @ 240 mls/hr IVPUSH BID [facility] Last Admin: 02/24/17 12:56 Dose: 240 mls/hr Metoprolol Tartrate (Lopressor -) 50 mg PO BID [facility] Last Admin: 02/24/17 10:39 Dose: 50 mg Metoprolol Tartrate (Lopressor Injection -) 5 mg IVPUSH Q4H PRN PRN Reason: HYPERTENSION Last Admin: 02/18/17 17:29 Dose: 5 mg Olanzapine 5 mg/ Olanzapine 2. (5 mg) 7.5 mg NGT HS [facility] Last Admin: 02/23/17 15:15 Dose: 7.5 mg Pantoprazole Sodium (Protonix Iv) 40 mg IVPUSH DAILY [facility] Last Admin: 02/24/17 10:39 Dose: 40 mg Polyethylene Glycol (Miralax (For Daily Use) -) 17 gm PO BID [facility] Last Admin: 02/24/17 10:39 Dose: Not Given - Objective Vital Signs: Vital Signs Temperature 99.7 F H 02/24/17 09:30 Pulse Rate 87 02/24/17 09:30 Respiratory Rate 20 02/24/17 09:30 Blood Pressure 173/81 02/24/17 09:30 O2 Sat by Pulse Oximetry (%) 100 02/23/17 21:00 Constitutional: Yes: Calm Eyes: Yes: Conjunctiva Clear HENT: Yes: Atraumatic Cardiovascular: Yes: S1, S2 Respiratory: Yes: On Nasal O2, Rhonchi Gastrointestinal: Yes: Soft Genitourinary: Yes: Incontinence Musculoskeletal: Yes: Muscle Weakness Edema: No Neurological: Yes: Lethargy Labs: CBC, BMP 02/21/17 06:15 INR, PTT INR 1.34 (0.82-1.09) H 02/03/17 06:00 Problem List - Problems (1) Hypertension Code(s): I10 - ESSENTIAL (PRIMARY) HYPERTENSION Qualifiers: Hypertension type: essential hypertension Qualified Code(s): I10 - Essential (primary) hypertension (2) Acute cholangitis due to calculus of bile duct with obstruction Code(s): K80.37 - CALCULUS OF BILE DUCT W ACUTE AND CHRONIC CHOLANGITIS W OBST (3) JUAN J (acute kidney injury) Code(s): N17.9 - ACUTE KIDNEY FAILURE, UNSPECIFIED Assessment/Plan Current Medications Generic Name Dose Route Start Last Admin Trade Name Freq PRN Reason Stop Dose Admin Acetaminophen 650 mg 02/16/17 02:30 02/23/17 23:00 Tylenol Suppository - IA 650 mg Q6H PRN Administration FEVER OR PAIN Artificial Tears 1 drop 02/12/17 22:00 02/23/17 21:19 Artificial Tears OU 1 drop HS [facility] Administration Escitalopram Oxalate 5 mg 02/23/17 13:30 02/24/17 10:39 Lexapro - NGT 5 mg DAILY [facility] Administration Heparin Sodium (Porcine) 5,000 unit 02/20/17 06:00 02/24/17 05:13 Heparin - SQ 5,000 unit TID [facility] Administration Ampicillin Sodium 1 gm/ Sodium 100 mls @ 200 mls/hr 02/19/17 21:00 02/24/17 12:56 Chloride IVPB 200 mls/hr Q6H-IV [facility] Administration Meropenem 1 gm in 20 mls @ 240 mls/hr 02/19/17 22:00 02/24/17 12:56 Merrem (Restricted To Id) - IVPUSH 240 mls/hr BID [facility] Administration Metoprolol Tartrate 50 mg 02/12/17 22:00 02/24/17 10:39 Lopressor - PO 50 mg BID [facility] Administration Metoprolol Tartrate 5 mg 02/12/17 18:46 02/18/17 17:29 Lopressor Injection - IVPUSH 5 mg Q4H PRN Administration HYPERTENSION Olanzapine 5 mg/ Olanzapine 2. 7.5 mg 02/23/17 14:00 02/23/17 15:15 5 mg NGT 7.5 mg HS [facility] Administration Pantoprazole Sodium 40 mg 02/13/17 10:00 02/24/17 10:39 Protonix Iv IVPUSH 40 mg DAILY [facility] Administration Polyethylene Glycol 17 gm 02/23/17 10:00 02/24/17 10:39 Miralax (For Daily Use) - PO Not Given BID [facility] Impression 1. JUAN J 2. acute resp failure 3. sepsis 4. bacteremia 5. alzheimers 6. anemia 7. choledocholithiasis 8. hypernatremia 9. hypokalemia 10. malnutrition Plan - cont with feeds and free water - check bmp - keep hob at 45 degrees with feeds - peg on Wednesday - discussed with medical team - total free water deficit is 3.1 liters, based on yesterdays labs - cholecystostomy care - will follow Dr Haynes
[2017-02-24 13:52] LABS: ANION GAP 4 (8-16); CALCIUM 8.3 mg/dL (8.5-10.1); CO2 35 mmol/L (21-32); CREATININE 0.9 mg/dL (0.7-1.3); GLUCOSE,RANDOM 134 mg/dL (74-106)
--- NOTE | 2017-02-24 18:01 | PN ---
Progress Note, Physician History of Present Illness: patient stable on ng tube feeding tolerating feeding more awake - Current Medication List Current Medications: Active Medications Acetaminophen (Tylenol Suppository -) 650 mg [place] Q6H PRN PRN Reason: FEVER OR PAIN Last Admin: 02/23/17 23:00 Dose: 650 mg Artificial Tears (Artificial Tears) 1 drop OU HS [facility] Last Admin: 02/23/17 21:19 Dose: 1 drop Escitalopram Oxalate (Lexapro -) 5 mg NGT DAILY [facility] Last Admin: 02/24/17 10:39 Dose: 5 mg Heparin Sodium (Porcine) (Heparin -) 5,000 unit SQ TID [facility] Last Admin: 02/24/17 17:51 Dose: 5,000 unit Ampicillin Sodium 1 gm/ Sodium (Chloride) 100 mls @ 200 mls/hr IVPB Q6H-IV [facility] Last Admin: 02/24/17 15:51 Dose: 200 mls/hr Meropenem (Merrem (Restricted To Id) -) 1 gm in 20 mls @ 240 mls/hr IVPUSH BID [facility] Last Admin: 02/24/17 12:56 Dose: 240 mls/hr Metoprolol Tartrate (Lopressor -) 50 mg PO BID [facility] Last Admin: 02/24/17 10:39 Dose: 50 mg Metoprolol Tartrate (Lopressor Injection -) 5 mg IVPUSH Q4H PRN PRN Reason: HYPERTENSION Last Admin: 02/18/17 17:29 Dose: 5 mg Olanzapine 5 mg/ Olanzapine 2. (5 mg) 7.5 mg NGT HS [facility] Last Admin: 02/23/17 15:15 Dose: 7.5 mg Pantoprazole Sodium (Protonix Iv) 40 mg IVPUSH DAILY [facility] Last Admin: 02/24/17 10:39 Dose: 40 mg Polyethylene Glycol (Miralax (For Daily Use) -) 17 gm PO BID [facility] Last Admin: 02/24/17 10:39 Dose: Not Given - Objective Vital Signs: Vital Signs Temperature 99.7 F H 02/24/17 09:30 Pulse Rate 87 02/24/17 09:30 Respiratory Rate 20 02/24/17 09:30 Blood Pressure 173/81 02/24/17 09:30 O2 Sat by Pulse Oximetry (%) 96 02/24/17 16:23 Constitutional: Yes: No Distress, Calm Cardiovascular: Yes: Regular Rate and Rhythm Respiratory: Yes: Regular, CTA Bilaterally Gastrointestinal: Yes: Normal Bowel Sounds, Soft, Other (ng tube in place) Musculoskeletal: Yes: WNL Extremities: Yes: WNL Neurological: Yes: Alert, Oriented Psychiatric: Yes: Alert Labs: CBC, BMP 02/21/17 06:15 02/24/17 12:58 INR, PTT INR 1.34 (0.82-1.09) H 02/03/17 06:00 Assessment/Plan Problem List - Problems (1) Calculus of gallbladder 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91 - Unspecified dementia with behavioral disturbance; F03.91 - Unspecified dementia with behavioral disturbance; F03.91 - Unspecified dementia with behavioral disturbance fever 6 gm negative bacteremia cx noted plan conitnue current mgmt abx for total of 14 days remains afebrile nutrition rest as per primary team
[2017-02-24] MEDS ORDERED: OLANZapine 2.5 MG TABLET ONE (20:48)
[2017-02-24] MEDS ORDERED: OLANZapine 5 MG TABLET ONE (20:48)
[2017-02-24] MEDS: ARTIFICIAL TEARS (POLYVINYL ALCOHOL 1.4%) OPTH DROPS OU SCH (21:02)
[2017-02-24] MEDS: OLANZAPINE 5 MG, OLANZAPINE 2.5 MG NGT SCH (21:03)
[2017-02-25] MEDS: AMPICILLIN - 1 GM in SODIUM CHLORIDE 100 ML IVPB SCH ×4 (02:23→21:20)
[2017-02-25] MEDS: HEPARIN NA (PORCINE) 5,000 UNITS/ML 1ML VIAL SQ SCH (05:13)
[2017-02-25] MEDS: ACETAMINOPHEN 650 MG SUPP.RECT PR PRN (05:43)
[2017-02-25 08:01] LABS: BASOPHIL 0.6 % (0-2.0); EOSINOPHIL 5.1 % (0-4.5); MCH 33.2 pg (25.7-33.7); MCHC 34.2 g/dl (32.0-35.9); MEAN PLT VOLUME 9.7 fl (7.5-11.1); NEUTROPHILS 60.4 % (42.8-82.8); RDW 16.4 % (11.9-15.9); WHITE BLOOD COUNT 9.5 K/mm3 (4.0-10.0)
[2017-02-25 08:14] LABS: ANION GAP 5 (8-16); CALCIUM 7.4 mg/dL (8.5-10.1); CO2 31 mmol/L (21-32); CREATININE 0.9 mg/dL (0.7-1.3); GLUCOSE,RANDOM 121 mg/dL (74-106); INR 1.17 (0.82-1.09); PROTHROMBIN TIME (PATIENT) 13.2 SEC (9.98-11.88); SGOT/AST 44 U/L (15-37); SGPT/ALT 86 U/L (12-78)
[2017-02-25 08:16] LABS: ALK PHOS 209 U/L (45-117); BILIRUBIN,TOTAL 0.8 mg/dL (0.2-1.0); TOT PROT 6.1 g/dl (6.4-8.2)
--- NOTE | 2017-02-25 08:37 | PN ---
Progress Note, Physician Chief Complaint: no acute distress - Current Medication List Current Medications: Active Medications Acetaminophen (Tylenol Suppository -) 650 mg NE Q6H PRN PRN Reason: FEVER OR PAIN Last Admin: 02/25/17 05:43 Dose: 650 mg Artificial Tears (Artificial Tears) 1 drop OU HS [facility] Last Admin: 02/24/17 21:02 Dose: 1 drop Escitalopram Oxalate (Lexapro -) 5 mg NGT DAILY [facility] Last Admin: 02/24/17 10:39 Dose: 5 mg Heparin Sodium (Porcine) (Heparin -) 5,000 unit SQ TID [facility] Last Admin: 02/25/17 05:13 Dose: 5,000 unit Ampicillin Sodium 1 gm/ Sodium (Chloride) 100 mls @ 200 mls/hr IVPB Q6H-IV [facility] Last Admin: 02/25/17 02:23 Dose: 200 mls/hr Meropenem (Merrem (Restricted To Id) -) 1 gm in 20 mls @ 240 mls/hr IVPUSH BID [facility] Last Admin: 02/24/17 21:03 Dose: 240 mls/hr Metoprolol Tartrate (Lopressor -) 50 mg PO BID [facility] Last Admin: 02/24/17 21:03 Dose: 50 mg Metoprolol Tartrate (Lopressor Injection -) 5 mg IVPUSH Q4H PRN PRN Reason: HYPERTENSION Last Admin: 02/18/17 17:29 Dose: 5 mg Olanzapine 5 mg/ Olanzapine 2. (5 mg) 7.5 mg NGT HS [facility] Last Admin: 02/24/17 21:03 Dose: 7.5 mg Pantoprazole Sodium (Protonix Iv) 40 mg IVPUSH DAILY [facility] Last Admin: 02/24/17 10:39 Dose: 40 mg Polyethylene Glycol (Miralax (For Daily Use) -) 17 gm PO BID [facility] Last Admin: 02/24/17 21:03 Dose: Not Given - Objective Vital Signs: Vital Signs Temperature 98.9 F 02/25/17 06:40 Pulse Rate 89 02/25/17 05:40 Respiratory Rate 18 02/25/17 05:40 Blood Pressure 156/74 02/25/17 05:40 O2 Sat by Pulse Oximetry (%) 98 02/24/17 21:00 Constitutional: Yes: No Distress Cardiovascular: Yes: Regular Rate and Rhythm Respiratory: Yes: CTA Bilaterally Gastrointestinal: Yes: Soft Edema: No Labs: CBC, BMP 02/25/17 07:30 INR, PTT INR 1.17 (0.82-1.09) H 02/25/17 07:30 Microbiology 02/23/17 23:20 Blood - Peripheral Venous Blood Culture - Preliminary NO GROWTH OBTAINED AFTER 24 HOURS, INCUBATION TO CONTINUE FOR 4 DAYS. 02/23/17 23:20 Blood - Peripheral Venous Blood Culture - Preliminary NO GROWTH OBTAINED AFTER 24 HOURS, INCUBATION TO CONTINUE FOR 4 DAYS. Laboratory Tests 02/25/17 02/25/17 07:30 07:30 WBC Pending Hgb Pending Plt Count Pending Sodium 139 Potassium 4.7 BUN 34 H Creatinine 0.9 AST 44 H D ALT 86 H D Alkaline Phosphatase 209 H Assessment/Plan s/p Acute Hypoxic Respiratory Failure Cholangitis Klebsiella Bacteremia s/p Cholecystostomy placement Severe Sepsis improving Acute Kidney Injury improving Anemia PLAN: - continue antibiotics per ID - PO per GI - aspiration precautions - DVT/GI prophylaxis, supportive care -Blood pressure is reasonably controlled
[2017-02-25] MEDS ORDERED: PT OWN MED DRAWER 7, Y5N ONE ×3 (08:57→23:06)
[2017-02-25] MEDS: ESCITALOPRAM OXALATE 10 MG TABLET (FP) NGT SCH (09:01)
[2017-02-25] MEDS: MEROPENEM 1 GM PUSH 1 GM/20 ML DISP.SYRIN IVPUSH SCH ×2 (09:04→23:07)
[2017-02-25] MEDS: POLYETHYLENE GLYCOL 3350 119 GM BTL PO SCH ×2 (09:04→23:07)
[2017-02-25] MEDS: METOPROLOL TARTRATE 50 MG TABLET (FP) PO SCH ×2 (09:04→23:07)
[2017-02-25] MEDS: PANTOPRAZOLE SODIUM 40 MG VIAL IVPUSH SCH (09:05)
[2017-02-25 09:52] LABS: PLATELET COUNT 168 K/MM3 (134-434)
--- NOTE | 2017-02-25 10:07 | PN ---
Progress Note, Physician Chief Complaint: mumbling now opens eyes on verbal stimuli has occasional cough - Current Medication List Current Medications: Active Medications Acetaminophen (Tylenol Suppository -) 650 mg [place] Q6H PRN PRN Reason: FEVER OR PAIN Last Admin: 02/25/17 05:43 Dose: 650 mg Artificial Tears (Artificial Tears) 1 drop OU HS [facility] Last Admin: 02/24/17 21:02 Dose: 1 drop Escitalopram Oxalate (Lexapro -) 5 mg NGT DAILY [facility] Last Admin: 02/25/17 09:01 Dose: 5 mg Heparin Sodium (Porcine) (Heparin -) 5,000 unit SQ TID [facility] Last Admin: 02/25/17 05:13 Dose: 5,000 unit Ampicillin Sodium 1 gm/ Sodium (Chloride) 100 mls @ 200 mls/hr IVPB Q6H-IV [facility] Last Admin: 02/25/17 09:01 Dose: 200 mls/hr Meropenem (Merrem (Restricted To Id) -) 1 gm in 20 mls @ 240 mls/hr IVPUSH BID [facility] Last Admin: 02/25/17 09:04 Dose: 240 mls/hr Metoprolol Tartrate (Lopressor -) 50 mg PO BID [facility] Last Admin: 02/25/17 09:04 Dose: 50 mg Metoprolol Tartrate (Lopressor Injection -) 5 mg IVPUSH Q4H PRN PRN Reason: HYPERTENSION Last Admin: 02/18/17 17:29 Dose: 5 mg Olanzapine 5 mg/ Olanzapine 2. (5 mg) 7.5 mg NGT HS [facility] Last Admin: 02/24/17 21:03 Dose: 7.5 mg Pantoprazole Sodium (Protonix Iv) 40 mg IVPUSH DAILY [facility] Last Admin: 02/25/17 09:05 Dose: 40 mg Polyethylene Glycol (Miralax (For Daily Use) -) 17 gm PO BID [facility] Last Admin: 02/25/17 09:04 Dose: Not Given - Objective Vital Signs: Vital Signs Temperature 98.9 F 02/25/17 06:40 Pulse Rate 89 02/25/17 05:40 Respiratory Rate 18 02/25/17 05:40 Blood Pressure 156/74 02/25/17 05:40 O2 Sat by Pulse Oximetry (%) 98 02/24/17 21:00 Constitutional: Yes: No Distress Cardiovascular: Yes: Regular Rate and Rhythm Respiratory: Yes: Diminished Gastrointestinal: Yes: Normal Bowel Sounds, Soft, Other (CARMELITA drain). No: Distention, Tenderness Edema: Yes Edema: LLE: 1+, RLE: 1+ Labs: CBC, BMP 02/25/17 07:30 02/25/17 07:30 INR, PTT INR 1.17 (0.82-1.09) H 02/25/17 07:30 Problem List - Problems (1) Severe sepsis Code(s): A41.9 - SEPSIS, UNSPECIFIED ORGANISM; R65.20 - SEVERE SEPSIS WITHOUT SEPTIC SHOCK (2) Elevated liver function tests Code(s): R79.89 - OTHER SPECIFIED ABNORMAL FINDINGS OF BLOOD CHEMISTRY (3) Cholangitis due to bile duct calculus with obstruction Code(s): K80.31 - CALCULUS OF BILE DUCT W CHOLANGITIS, UNSP, WITH OBSTRUCTION (4) Choledocholithiasis with obstruction Code(s): K80.51 - CALCULUS OF BILE DUCT W/O CHOLANGITIS OR CHOLECYST W OBST (5) Dementia with behavioral disturbance Code(s): F03.91 - UNSPECIFIED DEMENTIA WITH BEHAVIORAL DISTURBANCE Qualifiers: Dementia type: unspecified type Qualified Code(s): F03.91 - Unspecified dementia with behavioral disturbance (6) Calculus of gallbladder 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 Code(s): K80.67 - CALCULUS OF GB AND BILE DUCT W AC AND CHR CHOLECYST W OBST (7) Hypertension Code(s): I10 - ESSENTIAL (PRIMARY) HYPERTENSION Qualifiers: Hypertension type: essential hypertension Qualified Code(s): I10 - Essential (primary) hypertension (8) Malnutrition of moderate degree Code(s): E44.0 - MODERATE PROTEIN-CALORIE MALNUTRITION (9) Recurrent fever Code(s): A68.9 - RELAPSING FEVER, UNSPECIFIED Assessment/Plan PLAN s/p CARMELITA drain IV antibiotics- duration per ID - total 14 days noted elevated temps-- cultures repeated CXR noted-- no infiltrates or effusion left skin folld ? pneumothorax-- no PTX on today's CXR awake , not following commands, opens eyes to name today , mumbling family now wishing to make him DNR- will get documents ready , palliative care eval Peg tube placement planned for tomorrow NG feeding - restart his antidepressant meds per son wish -- NPO past midnight [place] PRN if pt tends to try to remove NG tube recurrent fevers can be possibly due to silent aspirations cultures-- all negative DVT prophylaxis-- SCD
--- NOTE | 2017-02-25 11:03 | PN ---
Progress Note, Physician History of Present Illness: PULMONARY NO CHANGE POORLY RESPONSIVE,-RESP DISTRESS - Current Medication List Current Medications: Active Medications Acetaminophen (Tylenol Suppository -) 650 mg [place] Q6H PRN PRN Reason: FEVER OR PAIN Last Admin: 02/25/17 05:43 Dose: 650 mg Artificial Tears (Artificial Tears) 1 drop OU HS [facility] Last Admin: 02/24/17 21:02 Dose: 1 drop Escitalopram Oxalate (Lexapro -) 5 mg NGT DAILY [facility] Last Admin: 02/25/17 09:01 Dose: 5 mg Ampicillin Sodium 1 gm/ Sodium (Chloride) 100 mls @ 200 mls/hr IVPB Q6H-IV [facility] Last Admin: 02/25/17 09:01 Dose: 200 mls/hr Meropenem (Merrem (Restricted To Id) -) 1 gm in 20 mls @ 240 mls/hr IVPUSH BID [facility] Last Admin: 02/25/17 09:04 Dose: 240 mls/hr Metoprolol Tartrate (Lopressor -) 50 mg PO BID [facility] Last Admin: 02/25/17 09:04 Dose: 50 mg Metoprolol Tartrate (Lopressor Injection -) 5 mg IVPUSH Q4H PRN PRN Reason: HYPERTENSION Last Admin: 02/18/17 17:29 Dose: 5 mg Olanzapine 5 mg/ Olanzapine 2. (5 mg) 7.5 mg NGT HS [facility] Last Admin: 02/24/17 21:03 Dose: 7.5 mg Pantoprazole Sodium (Protonix Iv) 40 mg IVPUSH DAILY [facility] Last Admin: 02/25/17 09:05 Dose: 40 mg Polyethylene Glycol (Miralax (For Daily Use) -) 17 gm PO BID [facility] Last Admin: 02/25/17 09:04 Dose: Not Given - Objective Vital Signs: Vital Signs Temperature 98.9 F 02/25/17 06:40 Pulse Rate 89 02/25/17 05:40 Respiratory Rate 18 02/25/17 05:40 Blood Pressure 156/74 02/25/17 05:40 O2 Sat by Pulse Oximetry (%) 98 02/24/17 21:00 Constitutional: Yes: Well Nourished, Other (POORLY RESPONSIVE) Eyes: Yes: WNL HENT: Yes: WNL Neck: Yes: Supple Cardiovascular: Yes: Regular Rate and Rhythm, S1, S2 Respiratory: Yes: Diminished Gastrointestinal: Yes: Normal Bowel Sounds, Soft Extremities: Yes: WNL Edema: Yes Edema: LLE: Trace, RLE: Trace Labs: CBC, BMP 02/25/17 07:30 02/25/17 07:30 INR, PTT INR 1.17 (0.82-1.09) H 02/25/17 07:30 - ....Imaging Chest X-ray: Report Reviewed, Image Reviewed (- INFILTRATES) Problem List - Problems (1) JUAN J (acute kidney injury) Code(s): N17.9 - ACUTE KIDNEY FAILURE, UNSPECIFIED (2) Acute cholangitis due to calculus of bile duct with obstruction Code(s): K80.37 - CALCULUS OF BILE DUCT W ACUTE AND CHRONIC CHOLANGITIS W OBST (3) Klebsiella pneumoniae sepsis Code(s): A41.4 - SEPSIS DUE TO ANAEROBES (4) Sepsis due to Gram-negative organism with acute respiratory failure Code(s): A41.50 - GRAM-NEGATIVE SEPSIS, UNSPECIFIED; R65.20 - SEVERE SEPSIS WITHOUT SEPTIC SHOCK; J96.00 - ACUTE RESPIRATORY FAILURE, UNSP W HYPOXIA OR HYPERCAPNIA (5) Severe sepsis Code(s): A41.9 - SEPSIS, UNSPECIFIED ORGANISM; R65.20 - SEVERE SEPSIS WITHOUT SEPTIC SHOCK Assessment/Plan A/P s/p Acute Hypoxic Respiratory Failure Cholangitis Klebsiella Bacteremia s/p Cholecystostomy placement Severe Sepsis improving Acute Kidney Injury improving Anemia likely aspiration - continue antibiotics per ID - monitor urine output, creatinine - FiO2 to keep Spo2 >90% - aspiration precautions - DVT/GI prophylaxis - aspiration precautions - prognosis poor DR YOUNG
--- NOTE | 2017-02-25 14:19 | PN ---
Progress Note, Physician History of Present Illness: Pt seen and examined at bedside. He is tolerating feeds. - Current Medication List Current Medications: Active Medications Acetaminophen (Tylenol Suppository -) 650 mg [place] Q6H PRN PRN Reason: FEVER OR PAIN Last Admin: 02/25/17 05:43 Dose: 650 mg Artificial Tears (Artificial Tears) 1 drop OU HS [facility] Last Admin: 02/24/17 21:02 Dose: 1 drop Escitalopram Oxalate (Lexapro -) 5 mg NGT DAILY [facility] Last Admin: 02/25/17 09:01 Dose: 5 mg Ampicillin Sodium 1 gm/ Sodium (Chloride) 100 mls @ 200 mls/hr IVPB Q6H-IV [facility] Last Admin: 02/25/17 09:01 Dose: 200 mls/hr Meropenem (Merrem (Restricted To Id) -) 1 gm in 20 mls @ 240 mls/hr IVPUSH BID [facility] Last Admin: 02/25/17 09:04 Dose: 240 mls/hr Metoprolol Tartrate (Lopressor -) 50 mg PO BID [facility] Last Admin: 02/25/17 09:04 Dose: 50 mg Metoprolol Tartrate (Lopressor Injection -) 5 mg IVPUSH Q4H PRN PRN Reason: HYPERTENSION Last Admin: 02/18/17 17:29 Dose: 5 mg Olanzapine 5 mg/ Olanzapine 2. (5 mg) 7.5 mg NGT HS [facility] Last Admin: 02/24/17 21:03 Dose: 7.5 mg Pantoprazole Sodium (Protonix Iv) 40 mg IVPUSH DAILY [facility] Last Admin: 02/25/17 09:05 Dose: 40 mg Polyethylene Glycol (Miralax (For Daily Use) -) 17 gm PO BID [facility] Last Admin: 02/25/17 09:04 Dose: Not Given - Objective Vital Signs: Vital Signs Temperature 98.1 F 02/25/17 10:00 Pulse Rate 88 02/25/17 10:00 Respiratory Rate 18 02/25/17 10:00 Blood Pressure 127/61 02/25/17 10:00 O2 Sat by Pulse Oximetry (%) 98 02/25/17 09:00 Constitutional: Yes: Calm Eyes: Yes: Conjunctiva Clear HENT: Yes: Atraumatic Neck: Yes: Supple Cardiovascular: Yes: S1, S2 Respiratory: Yes: Rhonchi Gastrointestinal: Yes: Soft Genitourinary: Yes: Incontinence Musculoskeletal: Yes: Muscle Weakness Edema: No Neurological: Yes: Other (awake) Labs: CBC, BMP 02/25/17 07:30 02/25/17 07:30 INR, PTT INR 1.17 (0.82-1.09) H 02/25/17 07:30 - ....Imaging Chest X-ray: Report Reviewed Problem List - Problems (1) Hypertension Code(s): I10 - ESSENTIAL (PRIMARY) HYPERTENSION Qualifiers: Hypertension type: essential hypertension Qualified Code(s): I10 - Essential (primary) hypertension (2) Acute cholangitis due to calculus of bile duct with obstruction Code(s): K80.37 - CALCULUS OF BILE DUCT W ACUTE AND CHRONIC CHOLANGITIS W OBST (3) JUAN J (acute kidney injury) Code(s): N17.9 - ACUTE KIDNEY FAILURE, UNSPECIFIED Assessment/Plan Current Medications Generic Name Dose Route Start Last Admin Trade Name Freq PRN Reason Stop Dose Admin Acetaminophen 650 mg 02/16/17 02:30 02/25/17 05:43 Tylenol Suppository - GA 650 mg Q6H PRN Administration FEVER OR PAIN Artificial Tears 1 drop 02/12/17 22:00 02/24/17 21:02 Artificial Tears OU 1 drop HS [facility] Administration Escitalopram Oxalate 5 mg 02/23/17 13:30 02/25/17 09:01 Lexapro - NGT 5 mg DAILY [facility] Administration Ampicillin Sodium 1 gm/ Sodium 100 mls @ 200 mls/hr 02/19/17 21:00 02/25/17 09:01 Chloride IVPB 200 mls/hr Q6H-IV [facility] Administration Meropenem 1 gm in 20 mls @ 240 mls/hr 02/19/17 22:00 02/25/17 09:04 Merrem (Restricted To Id) - IVPUSH 240 mls/hr BID [facility] Administration Metoprolol Tartrate 50 mg 02/12/17 22:00 02/25/17 09:04 Lopressor - PO 50 mg BID [facility] Administration Metoprolol Tartrate 5 mg 02/12/17 18:46 02/18/17 17:29 Lopressor Injection - IVPUSH 5 mg Q4H PRN Administration HYPERTENSION Olanzapine 5 mg/ Olanzapine 2. 7.5 mg 02/23/17 14:00 02/24/17 21:03 5 mg NGT 7.5 mg HS [facility] Administration Pantoprazole Sodium 40 mg 02/13/17 10:00 02/25/17 09:05 Protonix Iv IVPUSH 40 mg DAILY [facility] Administration Polyethylene Glycol 17 gm 02/23/17 10:00 02/25/17 09:04 Miralax (For Daily Use) - PO Not Given BID [facility] Impression 1. JUAN J 2. acute resp failure 3. sepsis 4. bacteremia 5. alzheimers 6. anemia 7. choledocholithiasis 8. hypernatremia 9. hypokalemia 10. malnutrition Plan - will decrease the free water with feeds - repeat labs in am - keep hob at 45 degrees with feeds - peg will likely be placed tomorrow - discussed with medical team - cholecystostomy care - will follow Dr Haynes
[2017-02-25] MEDS ORDERED: OLANZapine 2.5 MG TABLET ONE (23:05)
[2017-02-25] MEDS ORDERED: OLANZapine 5 MG TABLET ONE (23:05)
[2017-02-25] MEDS: ARTIFICIAL TEARS (POLYVINYL ALCOHOL 1.4%) OPTH DROPS OU SCH (23:07)
[2017-02-25] MEDS: OLANZAPINE 5 MG, OLANZAPINE 2.5 MG NGT SCH (23:07)
[2017-02-26] MEDS ORDERED: PT OWN MED DRAWER 7, Y5N ONE ×4 (03:06→22:16)
[2017-02-26] MEDS: AMPICILLIN - 1 GM in SODIUM CHLORIDE 100 ML IVPB SCH ×4 (03:07→23:53)
[2017-02-26 07:44] LABS: BASOPHIL 0.4 % (0-2.0); EOSINOPHIL 1.7 % (0-4.5); MCH 33.1 pg (25.7-33.7); MCHC 34.4 g/dl (32.0-35.9); MEAN CELL VOLUME 96.3 fl (80-96); MEAN PLT VOLUME 9.2 fl (7.5-11.1); PLATELET COUNT 212 K/MM3 (134-434); WHITE BLOOD COUNT 7.7 K/mm3 (4.0-10.0)
[2017-02-26 08:01] LABS: INR 1.16 (0.82-1.09); PROTHROMBIN TIME (PATIENT) 13.1 SEC (9.98-11.88)
[2017-02-26 08:33] LABS: ALBUMIN 2.1 g/dl (3.4-5.0)
[2017-02-26 08:39] LABS: ALK PHOS 200 U/L (45-117); ANION GAP 6 (8-16); BILIRUBIN,TOTAL 0.9 mg/dL (0.2-1.0); CALCIUM 7.7 mg/dL (8.5-10.1); CO2 28 mmol/L (21-32); GLUCOSE,RANDOM 108 mg/dL (74-106); SGOT/AST 27 U/L (15-37); SGPT/ALT 71 U/L (12-78); TOT PROT 6.6 g/dl (6.4-8.2)
[2017-02-26] MEDS: PANTOPRAZOLE SODIUM 40 MG VIAL IVPUSH SCH (09:01)
[2017-02-26] MEDS: MEROPENEM 1 GM PUSH 1 GM/20 ML DISP.SYRIN IVPUSH SCH ×2 (09:01→23:53)
--- NOTE | 2017-02-26 10:10 | PN ---
Progress Note, Physician History of Present Illness: patient stable no new issues had one spike of fever - Current Medication List Current Medications: Active Medications Acetaminophen (Tylenol Suppository -) 650 mg [place] Q6H PRN PRN Reason: FEVER OR PAIN Last Admin: 02/25/17 05:43 Dose: 650 mg Artificial Tears (Artificial Tears) 1 drop OU HS [facility] Last Admin: 02/25/17 23:07 Dose: 1 drop Escitalopram Oxalate (Lexapro -) 5 mg NGT DAILY [facility] Last Admin: 02/25/17 09:01 Dose: 5 mg Ampicillin Sodium 1 gm/ Sodium (Chloride) 100 mls @ 200 mls/hr IVPB Q6H-IV [facility] Last Admin: 02/26/17 08:41 Dose: 200 mls/hr Meropenem (Merrem (Restricted To Id) -) 1 gm in 20 mls @ 240 mls/hr IVPUSH BID [facility] Last Admin: 02/26/17 09:01 Dose: 240 mls/hr Metoprolol Tartrate (Lopressor -) 50 mg PO BID [facility] Last Admin: 02/25/17 23:07 Dose: 50 mg Metoprolol Tartrate (Lopressor Injection -) 5 mg IVPUSH Q4H PRN PRN Reason: HYPERTENSION Last Admin: 02/18/17 17:29 Dose: 5 mg Olanzapine 5 mg/ Olanzapine 2. (5 mg) 7.5 mg NGT HS [facility] Last Admin: 02/25/17 23:07 Dose: 7.5 mg Pantoprazole Sodium (Protonix Iv) 40 mg IVPUSH DAILY [facility] Last Admin: 02/26/17 09:01 Dose: 40 mg Polyethylene Glycol (Miralax (For Daily Use) -) 17 gm PO BID [facility] Last Admin: 02/25/17 23:07 Dose: 17 gm - Objective Vital Signs: Vital Signs Temperature 98.2 F 02/26/17 05:37 Pulse Rate 84 02/26/17 05:37 Respiratory Rate 18 02/26/17 05:37 Blood Pressure 119/60 02/26/17 05:37 O2 Sat by Pulse Oximetry (%) 98 02/25/17 22:00 Constitutional: Yes: No Distress, Calm Cardiovascular: Yes: Regular Rate and Rhythm Respiratory: Yes: Regular, CTA Bilaterally Gastrointestinal: Yes: Normal Bowel Sounds, Soft, Other (ng tube in place) Musculoskeletal: Yes: WNL Extremities: Yes: WNL Neurological: Yes: Alert Psychiatric: Yes: Alert Labs: CBC, BMP 02/26/17 06:00 02/26/17 06:00 INR, PTT INR 1.16 (0.82-1.09) H 02/26/17 06:00 Assessment/Plan Problem List - Problems (1) Calculus of gallbladder 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91 - Unspecified dementia with behavioral disturbance; F03.91 - Unspecified dementia with behavioral disturbance; F03.91 - Unspecified dementia with behavioral disturbance fever 6 gm negative bacteremia cx noted plan conitue abx stop after 14 days monitor for fever if patient continues to spike get a ct of the sinuses and send cxes from the choley tube abx will depend if any new finding is there
--- NOTE | 2017-02-26 10:39 | PN ---
Progress Note, Physician Chief Complaint: awakens when called does not make sense he says no no distress NG tube Coughing+ - Current Medication List Current Medications: Active Medications Acetaminophen (Tylenol Suppository -) 650 mg [place] Q6H PRN PRN Reason: FEVER OR PAIN Last Admin: 02/25/17 05:43 Dose: 650 mg Artificial Tears (Artificial Tears) 1 drop OU HS [facility] Last Admin: 02/25/17 23:07 Dose: 1 drop Escitalopram Oxalate (Lexapro -) 5 mg NGT DAILY [facility] Last Admin: 02/25/17 09:01 Dose: 5 mg Ampicillin Sodium 1 gm/ Sodium (Chloride) 100 mls @ 200 mls/hr IVPB Q6H-IV [facility] Last Admin: 02/26/17 08:41 Dose: 200 mls/hr Meropenem (Merrem (Restricted To Id) -) 1 gm in 20 mls @ 240 mls/hr IVPUSH BID [facility] Last Admin: 02/26/17 09:01 Dose: 240 mls/hr Metoprolol Tartrate (Lopressor -) 50 mg PO BID [facility] Last Admin: 02/25/17 23:07 Dose: 50 mg Metoprolol Tartrate (Lopressor Injection -) 5 mg IVPUSH Q4H PRN PRN Reason: HYPERTENSION Last Admin: 02/18/17 17:29 Dose: 5 mg Olanzapine 5 mg/ Olanzapine 2. (5 mg) 7.5 mg NGT HS [facility] Last Admin: 02/25/17 23:07 Dose: 7.5 mg Pantoprazole Sodium (Protonix Iv) 40 mg IVPUSH DAILY [facility] Last Admin: 02/26/17 09:01 Dose: 40 mg Polyethylene Glycol (Miralax (For Daily Use) -) 17 gm PO BID [facility] Last Admin: 02/25/17 23:07 Dose: 17 gm - Objective Vital Signs: Vital Signs Temperature 98.2 F 02/26/17 05:37 Pulse Rate 84 02/26/17 05:37 Respiratory Rate 18 02/26/17 05:37 Blood Pressure 119/60 02/26/17 05:37 O2 Sat by Pulse Oximetry (%) 98 02/25/17 22:00 Constitutional: Yes: No Distress Cardiovascular: Yes: Regular Rate and Rhythm Respiratory: Yes: Diminished Gastrointestinal: Yes: Normal Bowel Sounds, Soft, Abdomen, Obese, Other (CARMELITA drain). No: Distention, Tenderness Edema: Yes Edema: LLE: Trace, RLE: Trace Neurological: Yes: Other (awake) Labs: CBC, BMP 02/26/17 06:00 02/26/17 06:00 INR, PTT INR 1.16 (0.82-1.09) H 02/26/17 06:00 Problem List - Problems (1) Severe sepsis Code(s): A41.9 - SEPSIS, UNSPECIFIED ORGANISM; R65.20 - SEVERE SEPSIS WITHOUT SEPTIC SHOCK (2) Elevated liver function tests Code(s): R79.89 - OTHER SPECIFIED ABNORMAL FINDINGS OF BLOOD CHEMISTRY (3) Cholangitis due to bile duct calculus with obstruction Code(s): K80.31 - CALCULUS OF BILE DUCT W CHOLANGITIS, UNSP, WITH OBSTRUCTION (4) Choledocholithiasis with obstruction Code(s): K80.51 - CALCULUS OF BILE DUCT W/O CHOLANGITIS OR CHOLECYST W OBST (5) Dementia with behavioral disturbance Code(s): F03.91 - UNSPECIFIED DEMENTIA WITH BEHAVIORAL DISTURBANCE Qualifiers: Dementia type: unspecified type Qualified Code(s): F03.91 - Unspecified dementia with behavioral disturbance (6) Calculus of gallbladder 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 Code(s): K80.67 - CALCULUS OF GB AND BILE DUCT W AC AND CHR CHOLECYST W OBST (7) Hypertension Code(s): I10 - ESSENTIAL (PRIMARY) HYPERTENSION Qualifiers: Hypertension type: essential hypertension Qualified Code(s): I10 - Essential (primary) hypertension (8) Malnutrition of moderate degree Code(s): E44.0 - MODERATE PROTEIN-CALORIE MALNUTRITION (9) Recurrent fever Code(s): A68.9 - RELAPSING FEVER, UNSPECIFIED Assessment/Plan PLAN s/p CARMELITA drain IV antibiotics- duration per ID - total 14 days-- spoke with pharmacy-- both Ampicillin and Meropenum were started on 02/05/17. CXR noted-- no infiltrates or effusion awake , not following commands, opens eyes to name today , mumbling , does not make sense family now wishing to make him DNR- will get documents ready , palliative care eval Peg tube placement postponed as he had a temp spike yesterday morning NG feeding to be resumed recurrent fevers can be possibly due to silent aspirations, CARMELITA drain cultures-- all negative prognosis remains guarded DVT prophylaxis-- SCD
--- NOTE | 2017-02-26 11:17 | PN ---
Progress Note, Physician History of Present Illness: tmax 101, K 5.4. No acute events. Arousable. - Current Medication List Current Medications: Active Medications Acetaminophen (Tylenol Suppository -) 650 mg [place] Q6H PRN PRN Reason: FEVER OR PAIN Last Admin: 02/25/17 05:43 Dose: 650 mg Artificial Tears (Artificial Tears) 1 drop OU HS [facility] Last Admin: 02/25/17 23:07 Dose: 1 drop Escitalopram Oxalate (Lexapro -) 5 mg NGT DAILY [facility] Last Admin: 02/25/17 09:01 Dose: 5 mg Ampicillin Sodium 1 gm/ Sodium (Chloride) 100 mls @ 200 mls/hr IVPB Q6H-IV [facility] Last Admin: 02/26/17 08:41 Dose: 200 mls/hr Meropenem (Merrem (Restricted To Id) -) 1 gm in 20 mls @ 240 mls/hr IVPUSH BID [facility] Last Admin: 02/26/17 09:01 Dose: 240 mls/hr Metoprolol Tartrate (Lopressor -) 50 mg PO BID [facility] Last Admin: 02/25/17 23:07 Dose: 50 mg Metoprolol Tartrate (Lopressor Injection -) 5 mg IVPUSH Q4H PRN PRN Reason: HYPERTENSION Last Admin: 02/18/17 17:29 Dose: 5 mg Olanzapine 5 mg/ Olanzapine 2. (5 mg) 7.5 mg NGT HS [facility] Last Admin: 02/25/17 23:07 Dose: 7.5 mg Pantoprazole Sodium (Protonix Iv) 40 mg IVPUSH DAILY [facility] Last Admin: 02/26/17 09:01 Dose: 40 mg Polyethylene Glycol (Miralax (For Daily Use) -) 17 gm PO BID [facility] Last Admin: 02/25/17 23:07 Dose: 17 gm - Objective Vital Signs: Vital Signs Temperature 98.2 F 02/26/17 05:37 Pulse Rate 84 02/26/17 05:37 Respiratory Rate 18 02/26/17 05:37 Blood Pressure 119/60 02/26/17 05:37 O2 Sat by Pulse Oximetry (%) 98 02/25/17 22:00 Constitutional: Yes: No Distress, Calm Neurological: Yes: Lethargy Labs: CBC, BMP 02/26/17 06:00 02/26/17 06:00 INR, PTT INR 1.16 (0.82-1.09) H 02/26/17 06:00 Laboratory Results - last 24 hr 02/26/17 02/26/17 02/26/17 06:00 06:00 06:00 WBC 7.7 RBC 3.17 L Hgb 10.5 L Hct 30.5 L MCV 96.3 H MCH 33.1 MCHC 34.4 RDW 16.0 H Plt Count 212 D MPV 9.2 Neutrophils % 75.0 D Lymphocytes % 14.7 D Monocytes % 8.2 Eosinophils % 1.7 Basophils % 0.4 PT with INR 13.10 H INR 1.16 H Sodium 136 Potassium 5.4 H Chloride 102 Carbon Dioxide 28 Anion Gap 6 L BUN 34 H Creatinine 1.0 Creat Clearance w eGFR > 60 Random Glucose 108 H Calcium 7.7 L Total Bilirubin 0.9 AST 27 D ALT 71 Alkaline Phosphatase 200 H Total Protein 6.6 Albumin 2.1 L Problem List - Problems (1) Failure to thrive in adult Code(s): R62.7 - ADULT FAILURE TO THRIVE (2) Cholangitis due to bile duct calculus with obstruction Code(s): K80.31 - CALCULUS OF BILE DUCT W CHOLANGITIS, UNSP, WITH OBSTRUCTION (3) Cholelithiasis Code(s): K80.20 - CALCULUS OF GALLBLADDER W/O CHOLECYSTITIS W/O OBSTRUCTION (4) Choledocholithiasis with obstruction Code(s): K80.51 - CALCULUS OF BILE DUCT W/O CHOLANGITIS OR CHOLECYST W OBST Assessment/Plan Hold off on PEG placement today - tmax 101, and K 5.4. Pt's son informed. Continue NG feeding and care as per protocol Aspiration precautions PEG when afebrile x 48 hrs, no leukocytosis and normal electrolytes Palliative care
[2017-02-26] MEDS ORDERED: SODIUM POLYSTYRENE SULFONATE 15 GM/60 ML BOTTLE NGT ONE (11:21)
[2017-02-26] MEDS: METOPROLOL TARTRATE 50 MG TABLET (FP) PO SCH ×2 (11:50→22:28)
[2017-02-26] MEDS: ESCITALOPRAM OXALATE 10 MG TABLET (FP) NGT SCH (11:50)
[2017-02-26] MEDS: POLYETHYLENE GLYCOL 3350 119 GM BTL PO SCH ×2 (11:52→22:31)
--- NOTE | 2017-02-26 11:53 | PN ---
Progress Note (short form) - Note Progress Note: PULMONARY TEMPS ARE INTERMITTENT CHRONICALLY ILL IN APPEARANCE NONVERBAL/PALE/OPENS EYES/NGT IN PLACE DIMINISHED BREATH SOUNDS S1S2 RSR BS+ CHOLECSTOSTOMY TUBE WITH BROWN DRAINAGE B/L SCD'S/HEEL OFFLOADERS/NO EDEMA LABS/MEDS/NOTES/EKG/IMAGES/MICRO NOTED LAST +BLD CULTURE 02/01 KLEBSIELLA s/p Acute Hypoxic Respiratory Failure Cholangitis S/P tube drainage Klebsiella Bacteremia s/p Cholecystostomy placement Severe Sepsis improvied Acute Kidney Injury improving Anemia - continue antibiotics per ID - monitor urine output, creatinine - taper FiO2 to keep Spo2 >90% - PO per GI - aspiration precautions - DVT/GI prophylaxsis - family requesting DNR/DNI - PEG pending R MIKI CORCORAN
--- NOTE | 2017-02-26 13:07 | PN ---
Progress Note, Physician History of Present Illness: Pt seen and examined at bedside. He had a fever today and the peg will be postponed. - Current Medication List Current Medications: Active Medications Acetaminophen (Tylenol Suppository -) 650 mg [place] Q6H PRN PRN Reason: FEVER OR PAIN Last Admin: 02/25/17 05:43 Dose: 650 mg Artificial Tears (Artificial Tears) 1 drop OU HS [facility] Last Admin: 02/25/17 23:07 Dose: 1 drop Escitalopram Oxalate (Lexapro -) 5 mg NGT DAILY [facility] Last Admin: 02/26/17 11:50 Dose: 5 mg Ampicillin Sodium 1 gm/ Sodium (Chloride) 100 mls @ 200 mls/hr IVPB Q6H-IV [facility] Last Admin: 02/26/17 08:41 Dose: 200 mls/hr Meropenem (Merrem (Restricted To Id) -) 1 gm in 20 mls @ 240 mls/hr IVPUSH BID [facility] Last Admin: 02/26/17 09:01 Dose: 240 mls/hr Metoprolol Tartrate (Lopressor -) 50 mg PO BID [facility] Last Admin: 02/26/17 11:50 Dose: 50 mg Metoprolol Tartrate (Lopressor Injection -) 5 mg IVPUSH Q4H PRN PRN Reason: HYPERTENSION Last Admin: 02/18/17 17:29 Dose: 5 mg Olanzapine 5 mg/ Olanzapine 2. (5 mg) 7.5 mg NGT HS [facility] Last Admin: 02/25/17 23:07 Dose: 7.5 mg Pantoprazole Sodium (Protonix Iv) 40 mg IVPUSH DAILY [facility] Last Admin: 02/26/17 09:01 Dose: 40 mg Polyethylene Glycol (Miralax (For Daily Use) -) 17 gm PO BID [facility] Last Admin: 02/26/17 11:52 Dose: Not Given - Objective Vital Signs: Vital Signs Temperature 98.9 F 02/26/17 09:00 Pulse Rate 83 02/26/17 09:00 Respiratory Rate 20 02/26/17 09:00 Blood Pressure 117/83 02/26/17 09:00 O2 Sat by Pulse Oximetry (%) 99 02/26/17 09:00 Constitutional: Yes: Calm Eyes: Yes: Conjunctiva Clear HENT: Yes: Atraumatic Neck: Yes: Supple Cardiovascular: Yes: S1, S2 Respiratory: Yes: Rhonchi Gastrointestinal: Yes: Soft Genitourinary: Yes: Incontinence Musculoskeletal: Yes: Muscle Weakness Edema: No Neurological: Yes: Confusion, Lethargy Labs: CBC, BMP 02/26/17 06:00 02/26/17 06:00 INR, PTT INR 1.16 (0.82-1.09) H 02/26/17 06:00 Problem List - Problems (1) Hypertension Code(s): I10 - ESSENTIAL (PRIMARY) HYPERTENSION Qualifiers: Hypertension type: essential hypertension Qualified Code(s): I10 - Essential (primary) hypertension (2) Acute cholangitis due to calculus of bile duct with obstruction Code(s): K80.37 - CALCULUS OF BILE DUCT W ACUTE AND CHRONIC CHOLANGITIS W OBST (3) JUAN J (acute kidney injury) Code(s): N17.9 - ACUTE KIDNEY FAILURE, UNSPECIFIED Assessment/Plan Current Medications Generic Name Dose Route Start Last Admin Trade Name Freq PRN Reason Stop Dose Admin Acetaminophen 650 mg 02/16/17 02:30 02/25/17 05:43 Tylenol Suppository - W[place] 650 mg Q6H PRN Administration FEVER OR PAIN Artificial Tears 1 drop 02/12/17 22:00 02/25/17 23:07 Artificial Tears OU 1 drop HS [facility] Administration Escitalopram Oxalate 5 mg 02/23/17 13:30 02/26/17 11:50 Lexapro - NGT 5 mg DAILY [facility] Administration Ampicillin Sodium 1 gm/ Sodium 100 mls @ 200 mls/hr 02/19/17 21:00 02/26/17 08:41 Chloride IVPB 200 mls/hr Q6H-IV [facility] Administration Meropenem 1 gm in 20 mls @ 240 mls/hr 02/19/17 22:00 02/26/17 09:01 Merrem (Restricted To Id) - IVPUSH 240 mls/hr BID [facility] Administration Metoprolol Tartrate 50 mg 02/12/17 22:00 02/26/17 11:50 Lopressor - PO 50 mg BID [facility] Administration Metoprolol Tartrate 5 mg 02/12/17 18:46 02/18/17 17:29 Lopressor Injection - IVPUSH 5 mg Q4H PRN Administration HYPERTENSION Olanzapine 5 mg/ Olanzapine 2. 7.5 mg 02/23/17 14:00 02/25/17 23:07 5 mg NGT 7.5 mg HS [facility] Administration Pantoprazole Sodium 40 mg 02/13/17 10:00 02/26/17 09:01 Protonix Iv IVPUSH 40 mg DAILY [facility] Administration Polyethylene Glycol 17 gm 02/23/17 10:00 02/26/17 11:52 Miralax (For Daily Use) - PO Not Given BID [facility] Impression 1. JUAN J 2. acute resp failure 3. sepsis 4. bacteremia 5. alzheimers 6. anemia 7. choledocholithiasis 8. hypernatremia 9. hypokalemia resolved 10. malnutrition 11. hyperkalemia - recurrent Plan - change feeds to nepro as potassium is elevated again - free water rate decrease yesterday - repeat labs in am - keep HOB at 45 degrees - cholecystostomy care - will follow Dr Haynes
[2017-02-26] MEDS ORDERED: OLANZapine 2.5 MG TABLET ONE (22:14)
[2017-02-26] MEDS ORDERED: OLANZapine 5 MG TABLET ONE (22:14)
[2017-02-26] MEDS: OLANZAPINE 5 MG, OLANZAPINE 2.5 MG NGT SCH (22:27)
[2017-02-26] MEDS: ARTIFICIAL TEARS (POLYVINYL ALCOHOL 1.4%) OPTH DROPS OU SCH (22:28)
[2017-02-27] MEDS: AMPICILLIN - 1 GM in SODIUM CHLORIDE 100 ML IVPB SCH ×4 (03:27→22:13)
[2017-02-27 08:23] LABS: ANION GAP 7 (8-16); CALCIUM 7.7 mg/dL (8.5-10.1); CO2 28 mmol/L (21-32); GLUCOSE,RANDOM 116 mg/dL (74-106)
[2017-02-27] MEDS ORDERED: PT OWN MED DRAWER 7, Y5N ONE ×3 (08:28→22:10)
[2017-02-27] MEDS: MEROPENEM 1 GM PUSH 1 GM/20 ML DISP.SYRIN IVPUSH SCH ×2 (09:00→22:13)
[2017-02-27] MEDS: PANTOPRAZOLE SODIUM 40 MG VIAL IVPUSH SCH (09:04)
[2017-02-27] MEDS: POLYETHYLENE GLYCOL 3350 119 GM BTL PO SCH ×2 (09:09→22:14)
[2017-02-27] MEDS: METOPROLOL TARTRATE 50 MG TABLET (FP) PO SCH ×2 (09:09→22:14)
[2017-02-27] MEDS: ESCITALOPRAM OXALATE 10 MG TABLET (FP) NGT SCH (09:09)
--- NOTE | 2017-02-27 11:56 | PN ---
Progress Note, Physician History of Present Illness: Pt seen and examined. Records, labs, imaging results reviewed. 86 y.o. male admitted with sepsis, Klebsiella bacteremia,CBD obstruction, and cholecystitis. Now s/p cholecystomy with drainage cultures revealing growth of ESBL + E. coli and E. faecalis. He had a fever of 101F 2 days ago but has been afebrile since. Currently he is weak, not a source of history. - Current Medication List Current Medications: Active Medications Acetaminophen (Tylenol Suppository -) 650 mg [place] Q6H PRN PRN Reason: FEVER OR PAIN Last Admin: 02/25/17 05:43 Dose: 650 mg Artificial Tears (Artificial Tears) 1 drop OU HS [facility] Last Admin: 02/26/17 22:28 Dose: 1 drop Escitalopram Oxalate (Lexapro -) 5 mg NGT DAILY [facility] Last Admin: 02/27/17 09:09 Dose: 5 mg Ampicillin Sodium 1 gm/ Sodium (Chloride) 100 mls @ 200 mls/hr IVPB Q6H-IV [facility] Last Admin: 02/27/17 09:11 Dose: 200 mls/hr Meropenem (Merrem (Restricted To Id) -) 1 gm in 20 mls @ 240 mls/hr IVPUSH BID [facility] Last Admin: 02/27/17 09:00 Dose: 240 mls/hr Metoprolol Tartrate (Lopressor -) 50 mg PO BID [facility] Last Admin: 02/27/17 09:09 Dose: 50 mg Metoprolol Tartrate (Lopressor Injection -) 5 mg IVPUSH Q4H PRN PRN Reason: HYPERTENSION Last Admin: 02/18/17 17:29 Dose: 5 mg Olanzapine 5 mg/ Olanzapine 2. (5 mg) 7.5 mg NGT HS [facility] Last Admin: 02/26/17 22:27 Dose: 7.5 mg Pantoprazole Sodium (Protonix Iv) 40 mg IVPUSH DAILY [facility] Last Admin: 02/27/17 09:04 Dose: 40 mg Polyethylene Glycol (Miralax (For Daily Use) -) 17 gm PO BID [facility] Last Admin: 02/27/17 09:09 Dose: Not Given - Objective Vital Signs: Vital Signs Temperature 97.5 F L 02/27/17 09:22 Pulse Rate 70 02/27/17 10:31 Respiratory Rate 16 02/27/17 09:22 Blood Pressure 143/60 11/25/17 09:22 O2 Sat by Pulse Oximetry (%) 98 02/27/17 10:31 Constitutional: Yes: No Distress HENT: Yes: Other (NGT in place) Neck: Yes: Supple Cardiovascular: Yes: Regular Rate and Rhythm Respiratory: Yes: CTA Bilaterally Gastrointestinal: Yes: Normal Bowel Sounds, Soft, Other (Cholecystomy drain with bilious fluid) Extremities: Yes: WNL Wound/Incision: Yes: Clean/Dry Neurological: Yes: Other (demented) Labs: CBC, BMP 02/26/17 06:00 02/27/17 06:00 INR, PTT INR 1.16 (0.82-1.09) H 02/26/17 06:00 - ....Imaging Cat Scan: Pending, Report Reviewed MRI: Report Reviewed Problem List - Problems (1) Calculus of gallbladder 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 Code(s): K80.67 - CALCULUS OF GB AND BILE DUCT W AC AND CHR CHOLECYST W OBST (2) Dementia with behavioral disturbance Code(s): F03.91 - UNSPECIFIED DEMENTIA WITH BEHAVIORAL DISTURBANCE Qualifiers: Dementia type: unspecified type Qualified Code(s): F03.91 - Unspecified dementia with behavioral disturbance (3) Klebsiella pneumoniae sepsis Code(s): A41.4 - SEPSIS DUE TO ANAEROBES Assessment/Plan - patient currently afebrile - continue current antibiotics - send drain fluid for culture if fever recurs repeat blood cultures and suggest CT sinuses pt currently without acute distress
--- NOTE | 2017-02-27 12:12 | PN ---
Progress Note, Physician Chief Complaint: 86 year old male not opening eyes today no distress no fever for 24 hours NG tube ID note noted - Current Medication List Current Medications: Active Medications Acetaminophen (Tylenol Suppository -) 650 mg [place] Q6H PRN PRN Reason: FEVER OR PAIN Last Admin: 02/25/17 05:43 Dose: 650 mg Artificial Tears (Artificial Tears) 1 drop OU HS [facility] Last Admin: 02/26/17 22:28 Dose: 1 drop Escitalopram Oxalate (Lexapro -) 5 mg NGT DAILY [facility] Last Admin: 02/27/17 09:09 Dose: 5 mg Ampicillin Sodium 1 gm/ Sodium (Chloride) 100 mls @ 200 mls/hr IVPB Q6H-IV [facility] Last Admin: 02/27/17 09:11 Dose: 200 mls/hr Meropenem (Merrem (Restricted To Id) -) 1 gm in 20 mls @ 240 mls/hr IVPUSH BID [facility] Last Admin: 02/27/17 09:00 Dose: 240 mls/hr Metoprolol Tartrate (Lopressor -) 50 mg PO BID [facility] Last Admin: 02/27/17 09:09 Dose: 50 mg Metoprolol Tartrate (Lopressor Injection -) 5 mg IVPUSH Q4H PRN PRN Reason: HYPERTENSION Last Admin: 02/18/17 17:29 Dose: 5 mg Olanzapine 5 mg/ Olanzapine 2. (5 mg) 7.5 mg NGT HS [facility] Last Admin: 02/26/17 22:27 Dose: 7.5 mg Pantoprazole Sodium (Protonix Iv) 40 mg IVPUSH DAILY [facility] Last Admin: 02/27/17 09:04 Dose: 40 mg Polyethylene Glycol (Miralax (For Daily Use) -) 17 gm PO BID [facility] Last Admin: 02/27/17 09:09 Dose: Not Given - Objective Vital Signs: Vital Signs Temperature 97.5 F L 02/27/17 09:22 Pulse Rate 70 02/27/17 10:31 Respiratory Rate 16 02/27/17 09:22 Blood Pressure 143/60 02/27/17 09:22 O2 Sat by Pulse Oximetry (%) 98 02/27/17 10:31 Constitutional: Yes: No Distress HENT: Yes: Other (ngt in place) Neck: Yes: Supple Cardiovascular: Yes: Regular Rate and Rhythm, S1, S2. No: Murmur Respiratory: Yes: WNL, Diminished. No: Rales, Rhonchi Gastrointestinal: Yes: Soft, Other (CARMELITA DRAIN). No: Distention Edema: Yes (trace) Edema: LLE: Trace, RLE: Trace Neurological: Yes: Lethargy Labs: CBC, BMP 02/26/17 06:00 02/27/17 06:00 INR, PTT INR 1.16 (0.82-1.09) H 02/26/17 06:00 Problem List - Problems (1) Acute cholangitis due to calculus of bile duct with obstruction Code(s): K80.37 - CALCULUS OF BILE DUCT W ACUTE AND CHRONIC CHOLANGITIS W OBST (2) Choledocholithiasis with obstruction Code(s): K80.51 - CALCULUS OF BILE DUCT W/O CHOLANGITIS OR CHOLECYST W OBST Qualifiers: Cholecystitis presence: without cholecystitis Qualified Code(s): K80.51 - Calculus of bile duct without cholangitis or cholecystitis with obstruction (3) Dementia with behavioral disturbance Code(s): F03.91 - UNSPECIFIED DEMENTIA WITH BEHAVIORAL DISTURBANCE Qualifiers: Dementia type: unspecified type Qualified Code(s): F03.91 - Unspecified dementia with behavioral disturbance (4) Elevated liver function tests Code(s): R79.89 - OTHER SPECIFIED ABNORMAL FINDINGS OF BLOOD CHEMISTRY (5) Failure to thrive in adult Code(s): R62.7 - ADULT FAILURE TO THRIVE (6) Klebsiella pneumoniae sepsis Code(s): A41.4 - SEPSIS DUE TO ANAEROBES (7) Malnutrition of moderate degree Code(s): E44.0 - MODERATE PROTEIN-CALORIE MALNUTRITION (8) Sepsis due to Gram-negative organism with acute respiratory failure Code(s): A41.50 - GRAM-NEGATIVE SEPSIS, UNSPECIFIED; R65.20 - SEVERE SEPSIS WITHOUT SEPTIC SHOCK; J96.00 - ACUTE RESPIRATORY FAILURE, UNSP W HYPOXIA OR HYPERCAPNIA Assessment/Plan PLAN cholangitis choledocolithiasis recurrent fever -continue antibiotics per ID -May consider CT abdomen pelvis, CT chest, ct sinuses if fever recur -C and S of CARMELITA drain fluid - all BC negative -chest xray negative - lethargy - discussed with family today over the phone - made patient a DNR/DNI TODAY - palliative care follow up failure to thrive in adult protein calorie malnutrition - currently on NGT feedings Dementia with behaviors disturbance - will hold antidepressants due to lethargy prognosis remains guarded DVT prophylaxis-- SCD
--- NOTE | 2017-02-27 12:30 | PN ---
Progress Note (short form) - Note Progress Note: Pt examined along with [employer] Afshan Today he is lethargic Not responding to sternal rub on NG feeding Breathing shallow came this AM-- does not wish for CPR ,intubation Condition guarded no meaningful response Pt is DNR/DNI DC antidepressants as pt is lethargic May need to do CT imaging if recurrent fever Problem List - Problems (1) Severe sepsis Code(s): A41.9 - SEPSIS, UNSPECIFIED ORGANISM; R65.20 - SEVERE SEPSIS WITHOUT SEPTIC SHOCK (2) Elevated liver function tests Code(s): R79.89 - OTHER SPECIFIED ABNORMAL FINDINGS OF BLOOD CHEMISTRY (3) Cholangitis due to bile duct calculus with obstruction Code(s): K80.31 - CALCULUS OF BILE DUCT W CHOLANGITIS, UNSP, WITH OBSTRUCTION (4) Choledocholithiasis with obstruction Code(s): K80.51 - CALCULUS OF BILE DUCT W/O CHOLANGITIS OR CHOLECYST W OBST Qualifiers: Qualified Code(s): K80.51 - Calculus of bile duct without cholangitis or cholecystitis with obstruction (5) Dementia with behavioral disturbance Code(s): F03.91 - UNSPECIFIED DEMENTIA WITH BEHAVIORAL DISTURBANCE Qualifiers: Qualified Code(s): F03.91 - Unspecified dementia with behavioral disturbance (6) Calculus of gallbladder 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 Code(s): K80.67 - CALCULUS OF GB AND BILE DUCT W AC AND CHR CHOLECYST W OBST (7) Hypertension Code(s): I10 - ESSENTIAL (PRIMARY) HYPERTENSION Qualifiers: Qualified Code(s): I10 - Essential (primary) hypertension (8) Malnutrition of moderate degree Code(s): E44.0 - MODERATE PROTEIN-CALORIE MALNUTRITION (9) Recurrent fever Code(s): A68.9 - RELAPSING FEVER, UNSPECIFIED
--- NOTE | 2017-02-27 12:43 | PN ---
Progress Note (short form) - Note Progress Note: Poorly responsive. Further clinical deterioration. Intake & Output 02/24/17 02/25/17 02/26/17 02/27/17 23:59 23:59 23:59 23:59 Intake Total 2110 2240 1010 1130 Output Total 50 140 165 120 Balance 0 2100 845 1010 Weight 165 lb 6 oz 158 lb Last Vital Signs Temp Pulse Resp BP Pulse Ox 97.5 F L 70 16 143/60 98 02/27/17 09:22 02/27/17 10:31 02/27/17 09:22 02/27/17 09:22 02/27/17 10:31 Active Medications Acetaminophen (Tylenol Suppository -) 650 mg [place] Q6H PRN PRN Reason: FEVER OR PAIN Last Admin: 02/25/17 05:43 Dose: 650 mg Artificial Tears (Artificial Tears) 1 drop OU HS [facility] Last Admin: 02/26/17 22:28 Dose: 1 drop Ampicillin Sodium 1 gm/ Sodium (Chloride) 100 mls @ 200 mls/hr IVPB Q6H-IV [facility] Last Admin: 02/27/17 09:11 Dose: 200 mls/hr Meropenem (Merrem (Restricted To Id) -) 1 gm in 20 mls @ 240 mls/hr IVPUSH BID [facility] Last Admin: 02/27/17 09:00 Dose: 240 mls/hr Metoprolol Tartrate (Lopressor -) 50 mg PO BID [facility] Last Admin: 02/27/17 09:09 Dose: 50 mg Metoprolol Tartrate (Lopressor Injection -) 5 mg IVPUSH Q4H PRN PRN Reason: HYPERTENSION Last Admin: 02/18/17 17:29 Dose: 5 mg Pantoprazole Sodium (Protonix Iv) 40 mg IVPUSH DAILY [facility] Last Admin: 02/27/17 09:04 Dose: 40 mg Polyethylene Glycol (Miralax (For Daily Use) -) 17 gm PO BID [facility] Last Admin: 02/27/17 09:09 Dose: Not Given Constitutional: Yes: Poorly responsive Eyes: Yes: WNL HENT: Yes: WNL Neck: Yes: Supple Cardiovascular: Yes: Regular Rate and Rhythm, S1, S2 Respiratory: Yes: Diminished Gastrointestinal: Yes: Normal Bowel Sounds, Soft Extremities: Yes: WNL Edema: Yes Edema: LLE: Trace, RLE: Trace Labs: Laboratory Results - last 24 hr 02/27/17 06:00 Sodium 138 Potassium 4.3 D Chloride 103 Carbon Dioxide 28 Anion Gap 7 L BUN 41 H D Creatinine 1.0 Random Glucose 116 H Calcium 7.7 L Problem List - Problems (1) JUAN J (acute kidney injury) Code(s): N17.9 - ACUTE KIDNEY FAILURE, UNSPECIFIED (2) Acute cholangitis due to calculus of bile duct with obstruction Code(s): K80.37 - CALCULUS OF BILE DUCT W ACUTE AND CHRONIC CHOLANGITIS W OBST (3) Klebsiella pneumoniae sepsis Code(s): A41.4 - SEPSIS DUE TO ANAEROBES (4) Sepsis due to Gram-negative organism with acute respiratory failure Code(s): A41.50 - GRAM-NEGATIVE SEPSIS, UNSPECIFIED; R65.20 - SEVERE SEPSIS WITHOUT SEPTIC SHOCK; J96.00 - ACUTE RESPIRATORY FAILURE, UNSP W HYPOXIA OR HYPERCAPNIA (5) Severe sepsis Code(s): A41.9 - SEPSIS, UNSPECIFIED ORGANISM; R65.20 - SEVERE SEPSIS WITHOUT SEPTIC SHOCK Assessment/Plan A/P s/p Acute Hypoxic Respiratory Failure Cholangitis Klebsiella Bacteremia s/p Cholecystostomy placement Severe Sepsis improving Acute Kidney Injury improving Anemia likely aspiration - ABX per ID - O2 to keep Spo2 >90% - Aspiration precautions - DVT/GI prophylaxis - DNR / DNI Dr Corral
--- NOTE | 2017-02-27 12:56 | PN ---
Progress Note, Physician History of Present Illness: Pt seen and examined at bedside. He is tolerating feeds. - Current Medication List Current Medications: Active Medications Acetaminophen (Tylenol Suppository -) 650 mg [place] Q6H PRN PRN Reason: FEVER OR PAIN Last Admin: 02/25/17 05:43 Dose: 650 mg Artificial Tears (Artificial Tears) 1 drop OU HS [facility] Last Admin: 02/26/17 22:28 Dose: 1 drop Ampicillin Sodium 1 gm/ Sodium (Chloride) 100 mls @ 200 mls/hr IVPB Q6H-IV [facility] Last Admin: 02/27/17 09:11 Dose: 200 mls/hr Meropenem (Merrem (Restricted To Id) -) 1 gm in 20 mls @ 240 mls/hr IVPUSH BID [facility] Last Admin: 02/27/17 09:00 Dose: 240 mls/hr Metoprolol Tartrate (Lopressor -) 50 mg PO BID [facility] Last Admin: 02/27/17 09:09 Dose: 50 mg Metoprolol Tartrate (Lopressor Injection -) 5 mg IVPUSH Q4H PRN PRN Reason: HYPERTENSION Last Admin: 02/18/17 17:29 Dose: 5 mg Pantoprazole Sodium (Protonix Iv) 40 mg IVPUSH DAILY [facility] Last Admin: 02/27/17 09:04 Dose: 40 mg Polyethylene Glycol (Miralax (For Daily Use) -) 17 gm PO BID [facility] Last Admin: 02/27/17 09:09 Dose: Not Given - Objective Vital Signs: Vital Signs Temperature 97.5 F L 02/27/17 09:22 Pulse Rate 70 02/27/17 10:31 Respiratory Rate 16 02/27/17 09:22 Blood Pressure 143/60 02/27/17 09:22 O2 Sat by Pulse Oximetry (%) 98 02/27/17 10:31 Constitutional: Yes: Calm Eyes: Yes: Conjunctiva Clear HENT: Yes: Atraumatic Cardiovascular: Yes: S1, S2 Respiratory: Yes: CTA Bilaterally Gastrointestinal: Yes: Normal Bowel Sounds, Soft Genitourinary: Yes: Incontinence Musculoskeletal: Yes: Muscle Weakness Edema: No Neurological: Yes: Lethargy Labs: CBC, BMP 02/26/17 06:00 02/27/17 06:00 INR, PTT INR 1.16 (0.82-1.09) H 02/26/17 06:00 Problem List - Problems (1) Hypertension Code(s): I10 - ESSENTIAL (PRIMARY) HYPERTENSION Qualifiers: Hypertension type: essential hypertension Qualified Code(s): I10 - Essential (primary) hypertension (2) Acute cholangitis due to calculus of bile duct with obstruction Code(s): K80.37 - CALCULUS OF BILE DUCT W ACUTE AND CHRONIC CHOLANGITIS W OBST (3) JUAN J (acute kidney injury) Code(s): N17.9 - ACUTE KIDNEY FAILURE, UNSPECIFIED Assessment/Plan Current Medications Generic Name Dose Route Start Last Admin Trade Name Freq PRN Reason Stop Dose Admin Acetaminophen 650 mg 02/16/17 02:30 02/25/17 05:43 Tylenol Suppository - [place] 650 mg Q6H PRN Administration FEVER OR PAIN Artificial Tears 1 drop 02/12/17 22:00 02/26/17 22:28 Artificial Tears OU 1 drop HS [facility] Administration Ampicillin Sodium 1 gm/ Sodium 100 mls @ 200 mls/hr 02/26/17 23:15 02/27/17 09:11 Chloride IVPB 200 mls/hr Q6H-IV [facility] Administration Meropenem 1 gm in 20 mls @ 240 mls/hr 02/26/17 23:30 02/27/17 09:00 Merrem (Restricted To Id) - IVPUSH 240 mls/hr BID [facility] Administration Metoprolol Tartrate 50 mg 02/12/17 22:00 02/27/17 09:09 Lopressor - PO 50 mg BID [facility] Administration Metoprolol Tartrate 5 mg 02/12/17 18:46 02/18/17 17:29 Lopressor Injection - IVPUSH 5 mg Q4H PRN Administration HYPERTENSION Pantoprazole Sodium 40 mg 02/13/17 10:00 02/27/17 09:04 Protonix Iv IVPUSH 40 mg DAILY [facility] Administration Polyethylene Glycol 17 gm 02/23/17 10:00 02/27/17 09:09 Miralax (For Daily Use) - PO Not Given BID [facility] Impression 1. JUAN J 2. acute resp failure 3. sepsis 4. bacteremia 5. alzheimers 6. anemia 7. choledocholithiasis 8. hypernatremia 9. hypokalemia resolved 10. malnutrition 11. hyperkalemia - recurrent Plan - will decrease rate of feeds as bun is rising - potassium is improved - repeat labs in am - keep HOB at 45 degrees - cholecystostomy care - will follow Dr Haynes
[2017-02-27] MEDS: ARTIFICIAL TEARS (POLYVINYL ALCOHOL 1.4%) OPTH DROPS OU SCH (22:13)
[2017-02-28] MEDS: AMPICILLIN - 1 GM in SODIUM CHLORIDE 100 ML IVPB SCH ×4 (03:08→20:01)
[2017-02-28] MEDS ORDERED: PT OWN MED DRAWER 7, Y5N ONE ×4 (08:24→23:08)
[2017-02-28 08:54] LABS: ANION GAP 6 (8-16); CALCIUM 7.9 mg/dL (8.5-10.1); CO2 29 mmol/L (21-32); CREATININE 0.9 mg/dL (0.7-1.3); GLUCOSE,RANDOM 110 mg/dL (74-106)
[2017-02-28] MEDS: MEROPENEM 1 GM PUSH 1 GM/20 ML DISP.SYRIN IVPUSH SCH ×2 (09:04→23:24)
[2017-02-28] MEDS: PANTOPRAZOLE SODIUM 40 MG VIAL IVPUSH SCH (09:04)
[2017-02-28] MEDS: METOPROLOL TARTRATE 50 MG TABLET (FP) PO SCH ×2 (09:15→23:24)
[2017-02-28] MEDS: POLYETHYLENE GLYCOL 3350 119 GM BTL PO SCH ×2 (09:16→23:24)
--- NOTE | 2017-02-28 09:36 | PN ---
Progress Note, Physician Chief Complaint: alert today may try to pull out NG no distress Coughing+ - Current Medication List Current Medications: Active Medications Acetaminophen (Tylenol Suppository -) 650 mg [place] Q6H PRN PRN Reason: FEVER OR PAIN Last Admin: 02/25/17 05:43 Dose: 650 mg Artificial Tears (Artificial Tears) 1 drop OU HS [facility] Last Admin: 02/27/17 22:13 Dose: 1 drop Ampicillin Sodium 1 gm/ Sodium (Chloride) 100 mls @ 200 mls/hr IVPB Q6H-IV [facility] Last Admin: 02/28/17 09:11 Dose: 200 mls/hr Meropenem (Merrem (Restricted To Id) -) 1 gm in 20 mls @ 240 mls/hr IVPUSH BID [facility] Last Admin: 02/28/17 09:04 Dose: 240 mls/hr Metoprolol Tartrate (Lopressor -) 50 mg PO BID [facility] Last Admin: 02/28/17 09:15 Dose: 50 mg Metoprolol Tartrate (Lopressor Injection -) 5 mg IVPUSH Q4H PRN PRN Reason: HYPERTENSION Last Admin: 02/18/17 17:29 Dose: 5 mg Pantoprazole Sodium (Protonix Iv) 40 mg IVPUSH DAILY [facility] Last Admin: 02/28/17 09:04 Dose: 40 mg Polyethylene Glycol (Miralax (For Daily Use) -) 17 gm PO BID [facility] Last Admin: 02/28/17 09:16 Dose: Not Given - Objective Vital Signs: Vital Signs Temperature 98.2 F 02/28/17 05:00 Pulse Rate 80 02/28/17 09:21 Respiratory Rate 18 02/28/17 09:21 Blood Pressure 142/60 02/28/17 09:21 O2 Sat by Pulse Oximetry (%) 96 02/27/17 22:00 Constitutional: Yes: No Distress HENT: Yes: Other (NG in place) Cardiovascular: Yes: Regular Rate and Rhythm Respiratory: Yes: Diminished Gastrointestinal: Yes: Normal Bowel Sounds, Soft. No: Distention, Tenderness Edema: Yes Edema: LLE: Trace, RLE: Trace Neurological: Yes: Alert Labs: CBC, BMP 02/26/17 06:00 02/28/17 06:10 INR, PTT INR 1.16 (0.82-1.09) H 02/26/17 06:00 Problem List - Problems (1) Severe sepsis Code(s): A41.9 - SEPSIS, UNSPECIFIED ORGANISM; R65.20 - SEVERE SEPSIS WITHOUT SEPTIC SHOCK (2) Elevated liver function tests Code(s): R79.89 - OTHER SPECIFIED ABNORMAL FINDINGS OF BLOOD CHEMISTRY (3) Cholangitis due to bile duct calculus with obstruction Code(s): K80.31 - CALCULUS OF BILE DUCT W CHOLANGITIS, UNSP, WITH OBSTRUCTION (4) Choledocholithiasis with obstruction Code(s): K80.51 - CALCULUS OF BILE DUCT W/O CHOLANGITIS OR CHOLECYST W OBST Qualifiers: Cholecystitis presence: without cholecystitis Qualified Code(s): K80.51 - Calculus of bile duct without cholangitis or cholecystitis with obstruction (5) Dementia with behavioral disturbance Code(s): F03.91 - UNSPECIFIED DEMENTIA WITH BEHAVIORAL DISTURBANCE Qualifiers: Dementia type: unspecified type Qualified Code(s): F03.91 - Unspecified dementia with behavioral disturbance (6) Calculus of gallbladder 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 Code(s): K80.67 - CALCULUS OF GB AND BILE DUCT W AC AND CHR CHOLECYST W OBST (7) Hypertension Code(s): I10 - ESSENTIAL (PRIMARY) HYPERTENSION Qualifiers: Hypertension type: essential hypertension Qualified Code(s): I10 - Essential (primary) hypertension (8) Malnutrition of moderate degree Code(s): E44.0 - MODERATE PROTEIN-CALORIE MALNUTRITION (9) Recurrent fever Code(s): A68.9 - RELAPSING FEVER, UNSPECIFIED Assessment/Plan PLAN s/p CARMELITA drain IV antibiotics- duration per ID - total 14 days-- spoke with pharmacy-- both Ampicillin and Meropenum were started on 02/05/17. CXR noted-- no infiltrates or effusion awake ,alert today Mittens reapplied as pt may pull out NG tube afebrile >48 hours -- plan for peg placement tomorrow cultures-- all negative prognosis remains guarded DVT prophylaxis-- SCD
--- NOTE | 2017-02-28 12:24 | PN ---
Progress Note (short form) - Note Progress Note: No significant clinical change from yesterday. Poorly responsive. Intake & Output 02/25/17 02/26/17 02/27/17 02/28/17 23:59 23:59 23:59 23:59 Intake Total 2240 1010 4072 960 Output Total 140 165 210 60 Balance 2100 845 3862 900 Weight 158 lb Last Vital Signs Temp Pulse Resp BP Pulse Ox 98.2 F 80 18 142/60 96 02/28/17 05:00 02/28/17 09:21 02/28/17 09:21 02/28/17 09:21 02/27/17 22:00 Active Medications Acetaminophen (Tylenol Suppository -) 650 mg [place] Q6H PRN PRN Reason: FEVER OR PAIN Last Admin: 02/25/17 05:43 Dose: 650 mg Artificial Tears (Artificial Tears) 1 drop OU HS [facility] Last Admin: 02/27/17 22:13 Dose: 1 drop Ampicillin Sodium 1 gm/ Sodium (Chloride) 100 mls @ 200 mls/hr IVPB Q6H-IV [facility] Last Admin: 02/28/17 09:11 Dose: 200 mls/hr Meropenem (Merrem (Restricted To Id) -) 1 gm in 20 mls @ 240 mls/hr IVPUSH BID [facility] Last Admin: 02/28/17 09:04 Dose: 240 mls/hr Metoprolol Tartrate (Lopressor -) 50 mg PO BID [facility] Last Admin: 02/28/17 09:15 Dose: 50 mg Metoprolol Tartrate (Lopressor Injection -) 5 mg IVPUSH Q4H PRN PRN Reason: HYPERTENSION Last Admin: 02/18/17 17:29 Dose: 5 mg Pantoprazole Sodium (Protonix Iv) 40 mg IVPUSH DAILY [facility] Last Admin: 02/28/17 09:04 Dose: 40 mg Polyethylene Glycol (Miralax (For Daily Use) -) 17 gm PO BID [facility] Last Admin: 02/28/17 09:16 Dose: Not Given Constitutional: Yes: Poorly responsive Eyes: Yes: WNL HENT: Yes: WNL Neck: Yes: Supple Cardiovascular: Yes: Regular Rate and Rhythm, S1, S2 Respiratory: Yes: Diminished Gastrointestinal: Yes: Normal Bowel Sounds, Soft Extremities: Yes: WNL Edema: Yes Edema: LLE: Trace, RLE: Trace Labs: Laboratory Results - last 24 hr 02/28/17 06:10 Sodium 139 Potassium 4.1 Chloride 104 Carbon Dioxide 29 Anion Gap 6 L BUN 47 H Creatinine 0.9 Random Glucose 110 H Calcium 7.9 L Problem List - Problems (1) JUAN J (acute kidney injury) Code(s): N17.9 - ACUTE KIDNEY FAILURE, UNSPECIFIED (2) Acute cholangitis due to calculus of bile duct with obstruction Code(s): K80.37 - CALCULUS OF BILE DUCT W ACUTE AND CHRONIC CHOLANGITIS W OBST (3) Klebsiella pneumoniae sepsis Code(s): A41.4 - SEPSIS DUE TO ANAEROBES (4) Sepsis due to Gram-negative organism with acute respiratory failure Code(s): A41.50 - GRAM-NEGATIVE SEPSIS, UNSPECIFIED; R65.20 - SEVERE SEPSIS WITHOUT SEPTIC SHOCK; J96.00 - ACUTE RESPIRATORY FAILURE, UNSP W HYPOXIA OR HYPERCAPNIA (5) Severe sepsis Code(s): A41.9 - SEPSIS, UNSPECIFIED ORGANISM; R65.20 - SEVERE SEPSIS WITHOUT SEPTIC SHOCK Assessment/Plan A/P s/p Acute Hypoxic Respiratory Failure Cholangitis Klebsiella Bacteremia s/p Cholecystostomy placement Severe Sepsis improving Acute Kidney Injury improving Anemia likely aspiration - ABX per ID - O2 to keep Spo2 >90% - Aspiration precautions - DVT/GI prophylaxis - DNR / DNI Dr Corral
--- NOTE | 2017-02-28 14:10 | PN ---
Progress Note, Physician History of Present Illness: Pt seen and examined. Remains relatively the same. More alert but agitated. Has been afebrile for >48hrs. - Current Medication List Current Medications: Active Medications Acetaminophen (Tylenol Suppository -) 650 mg [place] Q6H PRN PRN Reason: FEVER OR PAIN Last Admin: 02/25/17 05:43 Dose: 650 mg Artificial Tears (Artificial Tears) 1 drop OU HS [facility] Last Admin: 02/27/17 22:13 Dose: 1 drop Ampicillin Sodium 1 gm/ Sodium (Chloride) 100 mls @ 200 mls/hr IVPB Q6H-IV [facility] Last Admin: 02/28/17 09:11 Dose: 200 mls/hr Meropenem (Merrem (Restricted To Id) -) 1 gm in 20 mls @ 240 mls/hr IVPUSH BID [facility] Last Admin: 02/28/17 09:04 Dose: 240 mls/hr Metoprolol Tartrate (Lopressor -) 50 mg PO BID [facility] Last Admin: 02/28/17 09:15 Dose: 50 mg Metoprolol Tartrate (Lopressor Injection -) 5 mg IVPUSH Q4H PRN PRN Reason: HYPERTENSION Last Admin: 02/18/17 17:29 Dose: 5 mg Pantoprazole Sodium (Protonix Iv) 40 mg IVPUSH DAILY [facility] Last Admin: 02/28/17 09:04 Dose: 40 mg Polyethylene Glycol (Miralax (For Daily Use) -) 17 gm PO BID [facility] Last Admin: 02/28/17 09:16 Dose: Not Given - Objective Vital Signs: Vital Signs Temperature 98.2 F 02/28/17 13:58 Pulse Rate 71 02/28/17 13:58 Respiratory Rate 20 02/28/17 13:58 Blood Pressure 143/71 02/28/17 13:58 O2 Sat by Pulse Oximetry (%) 98 02/28/17 09:15 Constitutional: Yes: No Distress Eyes: Yes: WNL HENT: Yes: Other (NGT) Cardiovascular: Yes: Regular Rate and Rhythm Respiratory: Yes: Regular Gastrointestinal: Yes: Soft, Other (Biliary drain in place) Genitourinary: Yes: WNL Extremities: Yes: WNL Labs: CBC, BMP 02/26/17 06:00 02/28/17 06:10 INR, PTT INR 1.16 (0.82-1.09) H 02/26/17 06:00 Problem List - Problems (1) Calculus of gallbladder 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 Code(s): K80.67 - CALCULUS OF GB AND BILE DUCT W AC AND CHR CHOLECYST W OBST (2) Dementia with behavioral disturbance Code(s): F03.91 - UNSPECIFIED DEMENTIA WITH BEHAVIORAL DISTURBANCE Qualifiers: Dementia type: unspecified type Qualified Code(s): F03.91 - Unspecified dementia with behavioral disturbance (3) Klebsiella pneumoniae sepsis Code(s): A41.4 - SEPSIS DUE TO ANAEROBES (4) Sepsis due to Gram-negative organism with acute respiratory failure Code(s): A41.50 - GRAM-NEGATIVE SEPSIS, UNSPECIFIED; R65.20 - SEVERE SEPSIS WITHOUT SEPTIC SHOCK; J96.00 - ACUTE RESPIRATORY FAILURE, UNSP W HYPOXIA OR HYPERCAPNIA Assessment/Plan - continue antibiotics - monitor temps, has been afebrile currently stable
--- NOTE | 2017-02-28 15:26 | PN ---
Progress Note, Physician History of Present Illness: Pt seen and examined at bedside. No acute change in status. He is tolerating feeds. - Current Medication List Current Medications: Active Medications Acetaminophen (Tylenol Suppository -) 650 mg [place] Q6H PRN PRN Reason: FEVER OR PAIN Last Admin: 02/25/17 05:43 Dose: 650 mg Artificial Tears (Artificial Tears) 1 drop OU HS [facility] Last Admin: 02/27/17 22:13 Dose: 1 drop Ampicillin Sodium 1 gm/ Sodium (Chloride) 100 mls @ 200 mls/hr IVPB Q6H-IV [facility] Last Admin: 02/28/17 09:11 Dose: 200 mls/hr Meropenem (Merrem (Restricted To Id) -) 1 gm in 20 mls @ 240 mls/hr IVPUSH BID [facility] Last Admin: 02/28/17 09:04 Dose: 240 mls/hr Metoprolol Tartrate (Lopressor -) 50 mg PO BID [facility] Last Admin: 02/28/17 09:15 Dose: 50 mg Metoprolol Tartrate (Lopressor Injection -) 5 mg IVPUSH Q4H PRN PRN Reason: HYPERTENSION Last Admin: 02/18/17 17:29 Dose: 5 mg Pantoprazole Sodium (Protonix Iv) 40 mg IVPUSH DAILY [facility] Last Admin: 02/28/17 09:04 Dose: 40 mg Polyethylene Glycol (Miralax (For Daily Use) -) 17 gm PO BID [facility] Last Admin: 02/28/17 09:16 Dose: Not Given - Objective Vital Signs: Vital Signs Temperature 98.2 F 02/28/17 13:58 Pulse Rate 71 02/28/17 13:58 Respiratory Rate 20 02/28/17 13:58 Blood Pressure 143/71 02/28/17 13:58 O2 Sat by Pulse Oximetry (%) 98 02/28/17 09:15 Constitutional: Yes: Calm Eyes: Yes: Conjunctiva Clear HENT: Yes: Atraumatic Neck: Yes: Supple Cardiovascular: Yes: S1, S2 Respiratory: Yes: CTA Bilaterally Gastrointestinal: Yes: Normal Bowel Sounds, Soft Genitourinary: Yes: Incontinence Musculoskeletal: Yes: Muscle Weakness Edema: No Neurological: Yes: Lethargy Labs: CBC, BMP 02/26/17 06:00 02/28/17 06:10 INR, PTT INR 1.16 (0.82-1.09) H 02/26/17 06:00 Problem List - Problems (1) Hypertension Code(s): I10 - ESSENTIAL (PRIMARY) HYPERTENSION Qualifiers: Hypertension type: essential hypertension Qualified Code(s): I10 - Essential (primary) hypertension (2) Acute cholangitis due to calculus of bile duct with obstruction Code(s): K80.37 - CALCULUS OF BILE DUCT W ACUTE AND CHRONIC CHOLANGITIS W OBST (3) JUAN J (acute kidney injury) Code(s): N17.9 - ACUTE KIDNEY FAILURE, UNSPECIFIED Assessment/Plan Current Medications Generic Name Dose Route Start Last Admin Trade Name Freq PRN Reason Stop Dose Admin Acetaminophen 650 mg 02/16/17 02:30 02/25/17 05:43 Tylenol Suppository - MO 650 mg Q6H PRN Administration FEVER OR PAIN Artificial Tears 1 drop 02/12/17 22:00 02/27/17 22:13 Artificial Tears OU 1 drop HS [facility] Administration Ampicillin Sodium 1 gm/ Sodium 100 mls @ 200 mls/hr 02/26/17 23:15 02/28/17 09:11 Chloride IVPB 200 mls/hr Q6H-IV [facility] Administration Meropenem 1 gm in 20 mls @ 240 mls/hr 02/26/17 23:30 02/28/17 09:04 Merrem (Restricted To Id) - IVPUSH 240 mls/hr BID [facility] Administration Metoprolol Tartrate 50 mg 02/12/17 22:00 02/28/17 09:15 Lopressor - PO 50 mg BID [facility] Administration Metoprolol Tartrate 5 mg 02/12/17 18:46 02/18/17 17:29 Lopressor Injection - IVPUSH 5 mg Q4H PRN Administration HYPERTENSION Pantoprazole Sodium 40 mg 02/13/17 10:00 02/28/17 09:04 Protonix Iv IVPUSH 40 mg DAILY [facility] Administration Polyethylene Glycol 17 gm 02/23/17 10:00 02/28/17 09:16 Miralax (For Daily Use) - PO Not Given BID [facility] Impression 1. JUAN J 2. acute resp failure 3. sepsis 4. bacteremia 5. alzheimers 6. anemia 7. choledocholithiasis 8. hypernatremia 9. hypokalemia resolved 10. malnutrition 11. hyperkalemia - recurrent Plan - cont with feeds and repeat labs n am - dietary eval - repeat labs in am - keep HOB at 45 degrees - cholecystostomy care - will follow Dr Haynes
--- NOTE | 2017-02-28 15:35 | PN ---
Progress Note (short form) - Note Progress Note: GI FOR DR RUFF: PT WITH OMS AND NON-VERBAL NURSES NOTE: NO FEVERS OR VOMITING OVER WEEKEND HAS TOLERATED NGT FEEDS WITHOUT PROBLEMS AFEB/ VSS ANICTERIC ABD SOFT/ NT NGT IN PLACE GETTING NGT FEEDS COAGS NL PER PLT >250k AND INR OF 1.1 WBC NORMAL AND LYTES OK MALNUTRITION/ FUNCTIONAL OPD SECONDARY TO OMS NPO AT [facility] FOR PEG 03/01 HOLD FEEDS AT [facility] FOR PEG 03/01 D/W PT NURSE MD JACOB
[2017-02-28] MEDS: ARTIFICIAL TEARS (POLYVINYL ALCOHOL 1.4%) OPTH DROPS OU SCH (23:24)
[2017-03-01] MEDS ORDERED: PT OWN MED DRAWER 7, Y5N ONE ×2 (01:59→08:34)
[2017-03-01] MEDS: AMPICILLIN - 1 GM in SODIUM CHLORIDE 100 ML IVPB SCH ×2 (02:02→08:58)
[2017-03-01 08:33] LABS: ALBUMIN 2.1 g/dl (3.4-5.0); ALK PHOS 151 U/L (45-117); ANION GAP 6 (8-16); BILIRUBIN,TOTAL 0.8 mg/dL (0.2-1.0); CALCIUM 8.4 mg/dL (8.5-10.1); CO2 32 mmol/L (21-32); CREATININE 0.8 mg/dL (0.7-1.3); GLUCOSE,RANDOM 99 mg/dL (74-106); SGOT/AST 15 U/L (15-37); SGPT/ALT 34 U/L (12-78); TOT PROT 6.3 g/dl (6.4-8.2)
[2017-03-01] MEDS: METOPROLOL TARTRATE 50 MG TABLET (FP) PO SCH ×2 (09:00→23:02)
[2017-03-01] MEDS: PANTOPRAZOLE SODIUM 40 MG VIAL IVPUSH SCH (09:01)
[2017-03-01] MEDS: POLYETHYLENE GLYCOL 3350 119 GM BTL PO SCH ×2 (09:01→23:00)
[2017-03-01] MEDS: MEROPENEM 1 GM PUSH 1 GM/20 ML DISP.SYRIN IVPUSH SCH (09:01)
--- NOTE | 2017-03-01 09:38 | PN ---
Progress Note, Physician History of Present Illness: Afebrie. No acute events. Arousable. at bedside - Current Medication List Current Medications: Active Medications Acetaminophen (Tylenol Suppository -) 650 mg [place] Q6H PRN PRN Reason: FEVER OR PAIN Last Admin: 02/25/17 05:43 Dose: 650 mg Artificial Tears (Artificial Tears) 1 drop OU HS [facility] Last Admin: 02/28/17 23:24 Dose: 1 drop Ampicillin Sodium 1 gm/ Sodium (Chloride) 100 mls @ 200 mls/hr IVPB Q6H-IV [facility] Last Admin: 03/01/17 08:58 Dose: 200 mls/hr Meropenem (Merrem (Restricted To Id) -) 1 gm in 20 mls @ 240 mls/hr IVPUSH BID [facility] Last Admin: 03/01/17 09:01 Dose: 240 mls/hr Metoprolol Tartrate (Lopressor -) 50 mg PO BID [facility] Last Admin: 03/01/17 09:00 Dose: 50 mg Metoprolol Tartrate (Lopressor Injection -) 5 mg IVPUSH Q4H PRN PRN Reason: HYPERTENSION Last Admin: 02/18/17 17:29 Dose: 5 mg Pantoprazole Sodium (Protonix Iv) 40 mg IVPUSH DAILY [facility] Last Admin: 03/01/17 09:01 Dose: 40 mg Polyethylene Glycol (Miralax (For Daily Use) -) 17 gm PO BID [facility] Last Admin: 03/01/17 09:01 Dose: Not Given - Objective Vital Signs: Vital Signs Temperature 97.4 F L 03/01/17 05:26 Pulse Rate 81 03/01/17 05:26 Respiratory Rate 20 03/01/17 05:26 Blood Pressure 138/76 03/01/17 05:26 O2 Sat by Pulse Oximetry (%) 98 02/28/17 22:00 Constitutional: Yes: No Distress, Calm HENT: Yes: Other (NGT) Gastrointestinal: Yes: Normal Bowel Sounds, Soft. No: Tenderness Labs: CBC, BMP 02/26/17 06:00 03/01/17 05:35 INR, PTT INR 1.16 (0.82-1.09) H 02/26/17 06:00 Problem List - Problems (1) Failure to thrive in adult Code(s): R62.7 - ADULT FAILURE TO THRIVE (2) Cholangitis due to bile duct calculus with obstruction Code(s): K80.31 - CALCULUS OF BILE DUCT W CHOLANGITIS, UNSP, WITH OBSTRUCTION (3) Cholelithiasis Code(s): K80.20 - CALCULUS OF GALLBLADDER W/O CHOLECYSTITIS W/O OBSTRUCTION (4) Choledocholithiasis with obstruction Code(s): K80.51 - CALCULUS OF BILE DUCT W/O CHOLANGITIS OR CHOLECYST W OBST Qualifiers: Cholecystitis presence: without cholecystitis Qualified Code(s): K80.51 - Calculus of bile duct without cholangitis or cholecystitis with obstruction Assessment/Plan PEG placement today Pt's informed.
--- NOTE | 2017-03-01 10:43 | PN ---
Progress Note, Physician Chief Complaint: alert ,awake no distress - Current Medication List Current Medications: Active Medications Acetaminophen (Tylenol Suppository -) 650 mg [place] Q6H PRN PRN Reason: FEVER OR PAIN Last Admin: 02/25/17 05:43 Dose: 650 mg Artificial Tears (Artificial Tears) 1 drop OU HS [facility] Last Admin: 02/28/17 23:24 Dose: 1 drop Ampicillin Sodium 1 gm/ Sodium (Chloride) 100 mls @ 200 mls/hr IVPB Q6H-IV [facility] Last Admin: 03/01/17 08:58 Dose: 200 mls/hr Meropenem (Merrem (Restricted To Id) -) 1 gm in 20 mls @ 240 mls/hr IVPUSH BID [facility] Last Admin: 03/01/17 09:01 Dose: 240 mls/hr Metoprolol Tartrate (Lopressor -) 50 mg PO BID [facility] Last Admin: 03/01/17 09:00 Dose: 50 mg Metoprolol Tartrate (Lopressor Injection -) 5 mg IVPUSH Q4H PRN PRN Reason: HYPERTENSION Last Admin: 02/18/17 17:29 Dose: 5 mg Pantoprazole Sodium (Protonix Iv) 40 mg IVPUSH DAILY [facility] Last Admin: 03/01/17 09:01 Dose: 40 mg Polyethylene Glycol (Miralax (For Daily Use) -) 17 gm PO BID [facility] Last Admin: 03/01/17 09:01 Dose: Not Given - Objective Vital Signs: Vital Signs Temperature 97.4 F L 03/01/17 05:26 Pulse Rate 81 03/01/17 05:26 Respiratory Rate 20 03/01/17 05:26 Blood Pressure 138/76 03/01/17 05:26 O2 Sat by Pulse Oximetry (%) 98 02/28/17 22:00 Constitutional: Yes: No Distress, Calm HENT: Yes: Other (NG +) Cardiovascular: Yes: Regular Rate and Rhythm Respiratory: Yes: Diminished Gastrointestinal: Yes: Normal Bowel Sounds, Soft. No: Distention, Tenderness Edema: No Labs: CBC, BMP 02/26/17 06:00 03/01/17 05:35 INR, PTT INR 1.16 (0.82-1.09) H 02/26/17 06:00 Problem List - Problems (1) Severe sepsis Code(s): A41.9 - SEPSIS, UNSPECIFIED ORGANISM; R65.20 - SEVERE SEPSIS WITHOUT SEPTIC SHOCK (2) Elevated liver function tests Code(s): R79.89 - OTHER SPECIFIED ABNORMAL FINDINGS OF BLOOD CHEMISTRY (3) Cholangitis due to bile duct calculus with obstruction Code(s): K80.31 - CALCULUS OF BILE DUCT W CHOLANGITIS, UNSP, WITH OBSTRUCTION (4) Choledocholithiasis with obstruction Code(s): K80.51 - CALCULUS OF BILE DUCT W/O CHOLANGITIS OR CHOLECYST W OBST Qualifiers: Cholecystitis presence: without cholecystitis Qualified Code(s): K80.51 - Calculus of bile duct without cholangitis or cholecystitis with obstruction (5) Dementia with behavioral disturbance Code(s): F03.91 - UNSPECIFIED DEMENTIA WITH BEHAVIORAL DISTURBANCE Qualifiers: Dementia type: unspecified type Qualified Code(s): F03.91 - Unspecified dementia with behavioral disturbance (6) Calculus of gallbladder 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 Code(s): K80.67 - CALCULUS OF GB AND BILE DUCT W AC AND CHR CHOLECYST W OBST (7) Hypertension Code(s): I10 - ESSENTIAL (PRIMARY) HYPERTENSION Qualifiers: Hypertension type: essential hypertension Qualified Code(s): I10 - Essential (primary) hypertension (8) Malnutrition of moderate degree Code(s): E44.0 - MODERATE PROTEIN-CALORIE MALNUTRITION (9) Recurrent fever Code(s): A68.9 - RELAPSING FEVER, UNSPECIFIED Assessment/Plan PLAN s/p CARMELITA drain IV antibiotics- duration per ID - total 14 days-- spoke with pharmacy-- both Ampicillin and Meropenum were started on 02/05/17. CXR noted-- no infiltrates or effusion awake ,alert today Mittens reapplied as pt may pull out NG tube/peg tube afebrile >48 hours -- plan for peg placement today cultures-- all negative prognosis remains guarded DVT prophylaxis-- SCD
[2017-03-01] MEDS ORDERED: LIDOCAINE HCL/PF 2% SDV 5ML VIAL ONE (11:20)
[2017-03-01] MEDS ORDERED: PROPOFOL 20 ML ONE (11:20)
--- NOTE | 2017-03-01 12:25 | PROC ---
Endoscopy Procedure Endoscopy procedure completed. Please see scanned procedure report. PEG placement
--- NOTE | 2017-03-01 14:30 | PN ---
Progress Note, Physician History of Present Illness: Pt seen and examined at bedside. He had the PEG tube placed today. - Current Medication List Current Medications: Active Medications Acetaminophen (Tylenol Suppository -) 650 mg IN Q6H PRN PRN Reason: FEVER OR PAIN Last Admin: 02/25/17 05:43 Dose: 650 mg Artificial Tears (Artificial Tears) 1 drop OU HS [facility] Last Admin: 02/28/17 23:24 Dose: 1 drop Ampicillin Sodium 1 gm/ Sodium (Chloride) 100 mls @ 200 mls/hr IVPB Q6H-IV [facility] Last Admin: 03/01/17 08:58 Dose: 200 mls/hr Meropenem (Merrem (Restricted To Id) -) 1 gm in 20 mls @ 240 mls/hr IVPUSH BID [facility] Last Admin: 03/01/17 09:01 Dose: 240 mls/hr Metoprolol Tartrate (Lopressor -) 50 mg PO BID [facility] Last Admin: 03/01/17 09:00 Dose: 50 mg Metoprolol Tartrate (Lopressor Injection -) 5 mg IVPUSH Q4H PRN PRN Reason: HYPERTENSION Last Admin: 02/18/17 17:29 Dose: 5 mg Pantoprazole Sodium (Protonix Iv) 40 mg IVPUSH DAILY [facility] Last Admin: 03/01/17 09:01 Dose: 40 mg Polyethylene Glycol (Miralax (For Daily Use) -) 17 gm PO BID [facility] Last Admin: 03/01/17 09:01 Dose: Not Given - Objective Vital Signs: Vital Signs Temperature 97.5 F L 03/01/17 12:57 Pulse Rate 58 L 03/01/17 12:57 Respiratory Rate 14 03/01/17 12:57 Blood Pressure 155/57 03/01/17 12:57 O2 Sat by Pulse Oximetry (%) 100 03/01/17 14:00 Constitutional: Yes: Calm Eyes: Yes: Conjunctiva Clear HENT: Yes: Atraumatic Neck: Yes: Supple Cardiovascular: Yes: S1, S2 Respiratory: Yes: CTA Bilaterally Gastrointestinal: Yes: Soft, Other (peg) Genitourinary: Yes: Incontinence Musculoskeletal: Yes: Muscle Weakness Edema: No Neurological: Yes: Confusion Labs: CBC, BMP 02/26/17 06:00 03/01/17 05:35 INR, PTT INR 1.16 (0.82-1.09) H 02/26/17 06:00 Problem List - Problems (1) Hypertension Code(s): I10 - ESSENTIAL (PRIMARY) HYPERTENSION Qualifiers: Hypertension type: essential hypertension Qualified Code(s): I10 - Essential (primary) hypertension (2) Acute cholangitis due to calculus of bile duct with obstruction Code(s): K80.37 - CALCULUS OF BILE DUCT W ACUTE AND CHRONIC CHOLANGITIS W OBST (3) JUAN J (acute kidney injury) Code(s): N17.9 - ACUTE KIDNEY FAILURE, UNSPECIFIED Assessment/Plan Current Medications Generic Name Dose Route Start Last Admin Trade Name Freq PRN Reason Stop Dose Admin Acetaminophen 650 mg 02/16/17 02:30 02/25/17 05:43 Tylenol Suppository - IN 650 mg Q6H PRN Administration FEVER OR PAIN Artificial Tears 1 drop 02/12/17 22:00 02/28/17 23:24 Artificial Tears OU 1 drop HS [facility] Administration Ampicillin Sodium 1 gm/ Sodium 100 mls @ 200 mls/hr 02/26/17 23:15 03/01/17 08:58 Chloride IVPB 200 mls/hr Q6H-IV [facility] Administration Meropenem 1 gm in 20 mls @ 240 mls/hr 02/26/17 23:30 03/01/17 09:01 Merrem (Restricted To Id) - IVPUSH 240 mls/hr BID [facility] Administration Metoprolol Tartrate 50 mg 02/12/17 22:00 03/01/17 09:00 Lopressor - PO 50 mg BID [facility] Administration Metoprolol Tartrate 5 mg 02/12/17 18:46 02/18/17 17:29 Lopressor Injection - IVPUSH 5 mg Q4H PRN Administration HYPERTENSION Pantoprazole Sodium 40 mg 02/13/17 10:00 03/01/17 09:01 Protonix Iv IVPUSH 40 mg DAILY [facility] Administration Polyethylene Glycol 17 gm 02/23/17 10:00 03/01/17 09:01 Miralax (For Daily Use) - PO Not Given BID [facility] Impression 1. JUAN J 2. acute resp failure 3. sepsis 4. bacteremia 5. alzheimers 6. anemia 7. choledocholithiasis 8. hypernatremia 9. hypokalemia resolved 10. malnutrition 11. hyperkalemia - recurrent Plan - pt had peg tube placed today - discussed with pt - restart feeds once ok with GI - repeat labs in am - keep HOB at 45 degrees - cholecystostomy care - will follow Dr Haynes
--- NOTE | 2017-03-01 15:03 | PN ---
Progress Note, Physician Chief Complaint: Infectious Disease f/u note: History of Present Illness: Pt had peg placement today. Easily arousable, without distress. Remains afebrile - Current Medication List Current Medications: Active Medications Acetaminophen (Tylenol Suppository -) 650 mg [place] Q6H PRN PRN Reason: FEVER OR PAIN Last Admin: 02/25/17 05:43 Dose: 650 mg Artificial Tears (Artificial Tears) 1 drop OU HS [facility] Last Admin: 02/28/17 23:24 Dose: 1 drop Metoprolol Tartrate (Lopressor -) 50 mg PO BID [facility] Last Admin: 03/01/17 09:00 Dose: 50 mg Metoprolol Tartrate (Lopressor Injection -) 5 mg IVPUSH Q4H PRN PRN Reason: HYPERTENSION Last Admin: 02/18/17 17:29 Dose: 5 mg Pantoprazole Sodium (Protonix Iv) 40 mg IVPUSH DAILY [facility] Last Admin: 03/01/17 09:01 Dose: 40 mg Polyethylene Glycol (Miralax (For Daily Use) -) 17 gm PO BID [facility] Last Admin: 03/01/17 09:01 Dose: Not Given - Objective Vital Signs: Vital Signs Temperature 97.5 F L 03/01/17 12:57 Pulse Rate 58 L 03/01/17 12:57 Respiratory Rate 14 03/01/17 12:57 Blood Pressure 155/57 03/01/17 12:57 O2 Sat by Pulse Oximetry (%) 100 03/01/17 14:00 Constitutional: Yes: No Distress Neck: Yes: Supple Cardiovascular: Yes: Regular Rate and Rhythm Respiratory: Yes: Regular Gastrointestinal: Yes: Normal Bowel Sounds, Other (+peg in place) Genitourinary: Yes: WNL Psychiatric: Yes: Alert Labs: CBC, BMP 02/26/17 06:00 03/01/17 05:35 INR, PTT INR 1.16 (0.82-1.09) H 02/26/17 06:00 Problem List - Problems (1) Calculus of gallbladder 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 Code(s): K80.67 - CALCULUS OF GB AND BILE DUCT W AC AND CHR CHOLECYST W OBST (2) Dementia with behavioral disturbance Code(s): F03.91 - UNSPECIFIED DEMENTIA WITH BEHAVIORAL DISTURBANCE Qualifiers: Dementia type: unspecified type Qualified Code(s): F03.91 - Unspecified dementia with behavioral disturbance (3) Klebsiella pneumoniae sepsis Code(s): A41.4 - SEPSIS DUE TO ANAEROBES (4) Sepsis due to Gram-negative organism with acute respiratory failure Code(s): A41.50 - GRAM-NEGATIVE SEPSIS, UNSPECIFIED; R65.20 - SEVERE SEPSIS WITHOUT SEPTIC SHOCK; J96.00 - ACUTE RESPIRATORY FAILURE, UNSP W HYPOXIA OR HYPERCAPNIA Assessment/Plan s/p cholecystomy s/p peg pt afebrile now >72hr will d/c antibiotics continue monitor
[2017-03-01] MEDS: ARTIFICIAL TEARS (POLYVINYL ALCOHOL 1.4%) OPTH DROPS OU SCH (22:59)
--- NOTE | 2017-03-01 23:20 | EKG ---
Test Reason : Blood Pressure : / mmHG Vent. Rate : 093 BPM Atrial Rate : 093 BPM P-R Int : 148 ms QRS Dur : 082 ms QT Int : 352 ms P-R-T Axes : 043 -47 036 degrees QTc Int : 437 ms SINUS RHYTHM WITH FREQUENT PREMATURE VENTRICULAR COMPLEXES IN BIGEMINY LEFT AXIS DEVIATION ABNORMAL ECG WHEN COMPARED WITH ECG OF 06-FEB-2017 17:17, T WAVE VARIATION Confirmed by CHRISTIAN STALEY MD ([id number]) on 03/01/2017 11:20:14 PM Referred By: Confirmed By:CHRISTIAN STALEY MD
[2017-03-02 08:18] LABS: BASOPHIL 0.4 % (0-2.0); EOSINOPHIL 2.6 % (0-4.5); MCH 32.9 pg (25.7-33.7); MCHC 33.9 g/dl (32.0-35.9); MEAN CELL VOLUME 96.8 fl (80-96); MEAN PLT VOLUME 8.7 fl (7.5-11.1); NEUTROPHILS 69.9 % (42.8-82.8); PLATELET COUNT 325 K/MM3 (134-434); RDW 16.2 % (11.9-15.9); WHITE BLOOD COUNT 9.8 K/mm3 (4.0-10.0)
[2017-03-02 08:44] LABS: ALBUMIN 2.3 g/dl (3.4-5.0); ALK PHOS 153 U/L (45-117); ANION GAP 6 (8-16); CALCIUM 8.4 mg/dL (8.5-10.1); CO2 29 mmol/L (21-32); CREATININE 0.9 mg/dL (0.7-1.3); GLUCOSE,RANDOM 88 mg/dL (74-106); SGOT/AST 15 U/L (15-37); SGPT/ALT 30 U/L (12-78); TOT PROT 6.9 g/dl (6.4-8.2)
[2017-03-02] MEDS: PANTOPRAZOLE SODIUM 40 MG VIAL IVPUSH SCH (11:04)
[2017-03-02] MEDS: METOPROLOL TARTRATE 50 MG TABLET (FP) PO SCH (11:04)
[2017-03-02] MEDS: POLYETHYLENE GLYCOL 3350 119 GM BTL PO SCH ×2 (11:19→21:53)
--- NOTE | 2017-03-02 11:22 | PN ---
Progress Note, Physician Chief Complaint: awakens to verbal stimuli s/p peg placement no distress - Current Medication List Current Medications: Active Medications Acetaminophen (Tylenol Suppository -) 650 mg [place] Q6H PRN PRN Reason: FEVER OR PAIN Last Admin: 02/25/17 05:43 Dose: 650 mg Artificial Tears (Artificial Tears) 1 drop OU HS [facility] Last Admin: 03/01/17 22:59 Dose: 1 drop Metoprolol Tartrate (Lopressor -) 50 mg PO BID [facility] Last Admin: 03/02/17 11:04 Dose: 50 mg Metoprolol Tartrate (Lopressor Injection -) 5 mg IVPUSH Q4H PRN PRN Reason: HYPERTENSION Last Admin: 02/18/17 17:29 Dose: 5 mg Pantoprazole Sodium (Protonix Iv) 40 mg IVPUSH DAILY [facility] Last Admin: 03/02/17 11:04 Dose: 40 mg Polyethylene Glycol (Miralax (For Daily Use) -) 17 gm PO BID [facility] Last Admin: 03/02/17 11:19 Dose: 17 gm - Objective Vital Signs: Vital Signs Temperature 97.5 F L 03/02/17 06:00 Pulse Rate 79 03/02/17 06:00 Respiratory Rate 20 03/02/17 06:00 Blood Pressure 154/73 03/02/17 06:00 O2 Sat by Pulse Oximetry (%) 100 03/01/17 23:52 Constitutional: Yes: No Distress Cardiovascular: Yes: Regular Rate and Rhythm Respiratory: Yes: Diminished Gastrointestinal: Yes: Normal Bowel Sounds, Soft, Abdomen, Obese, Other (CARMELITA drain+, peg tube+). No: Distention, Tenderness Edema: No Psychiatric: Yes: Other (drowsy state) Labs: CBC, BMP 03/02/17 07:15 03/02/17 07:15 INR, PTT INR 1.16 (0.82-1.09) H 02/26/17 06:00 Problem List - Problems (1) Severe sepsis Code(s): A41.9 - SEPSIS, UNSPECIFIED ORGANISM; R65.20 - SEVERE SEPSIS WITHOUT SEPTIC SHOCK (2) Elevated liver function tests Code(s): R79.89 - OTHER SPECIFIED ABNORMAL FINDINGS OF BLOOD CHEMISTRY (3) Cholangitis due to bile duct calculus with obstruction Code(s): K80.31 - CALCULUS OF BILE DUCT W CHOLANGITIS, UNSP, WITH OBSTRUCTION (4) Choledocholithiasis with obstruction Code(s): K80.51 - CALCULUS OF BILE DUCT W/O CHOLANGITIS OR CHOLECYST W OBST Qualifiers: Cholecystitis presence: without cholecystitis Qualified Code(s): K80.51 - Calculus of bile duct without cholangitis or cholecystitis with obstruction (5) Dementia with behavioral disturbance Code(s): F03.91 - UNSPECIFIED DEMENTIA WITH BEHAVIORAL DISTURBANCE Qualifiers: Dementia type: unspecified type Qualified Code(s): F03.91 - Unspecified dementia with behavioral disturbance (6) Calculus of gallbladder 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 Code(s): K80.67 - CALCULUS OF GB AND BILE DUCT W AC AND CHR CHOLECYST W OBST (7) Hypertension Code(s): I10 - ESSENTIAL (PRIMARY) HYPERTENSION Qualifiers: Hypertension type: essential hypertension Qualified Code(s): I10 - Essential (primary) hypertension (8) Malnutrition of moderate degree Code(s): E44.0 - MODERATE PROTEIN-CALORIE MALNUTRITION (9) Recurrent fever Code(s): A68.9 - RELAPSING FEVER, UNSPECIFIED Assessment/Plan PLAN s/p CARMELITA drain IV antibiotics-- dc per ID remains afebrile will resume feeds via peg CXR noted-- no infiltrates or effusion Mittens reapplied as pt may pull out NG tube/peg tube cultures-- all negative DVT prophylaxis-- SCD dc planning to [place]
[2017-03-02] MEDS ORDERED: SODIUM POLYSTYRENE SULFONATE 15 GM/60 ML BOTTLE GT ONE ×2 (11:27→14:30)
--- NOTE | 2017-03-02 11:37 | PN ---
Progress Note, Physician History of Present Illness: Afebrile. Normal WBC. No acute events. Arousable. - Current Medication List Current Medications: Active Medications Acetaminophen (Tylenol Suppository -) 650 mg [place] Q6H PRN PRN Reason: FEVER OR PAIN Last Admin: 02/25/17 05:43 Dose: 650 mg Artificial Tears (Artificial Tears) 1 drop OU HS [facility] Last Admin: 03/01/17 22:59 Dose: 1 drop Metoprolol Tartrate (Lopressor -) 50 mg GT BID [facility] Pantoprazole Sodium (Protonix Iv) 40 mg IVPUSH DAILY [facility] Last Admin: 03/02/17 11:04 Dose: 40 mg Polyethylene Glycol (Miralax (For Daily Use) -) 17 gm PO BID [facility] Last Admin: 03/02/17 11:19 Dose: 17 gm Sodium Polystyrene Sulfonate (Kayexalate -) 15 gm GT ONCE ONE Stop: 03/02/17 11:28 - Objective Vital Signs: Vital Signs Temperature 97.5 F L 03/02/17 06:00 Pulse Rate 79 03/02/17 06:00 Respiratory Rate 20 03/02/17 06:00 Blood Pressure 154/73 03/02/17 06:00 O2 Sat by Pulse Oximetry (%) 100 03/01/17 23:52 Constitutional: Yes: No Distress, Calm Gastrointestinal: Yes: Normal Bowel Sounds, Soft. No: Rectal Bleeding, Tenderness, Tenderness, Rebound, Vomiting Wound/Incision: Yes: Clean/Dry, Other (at "5") Labs: CBC, BMP 03/02/17 07:15 03/02/17 07:15 INR, PTT INR 1.16 (0.82-1.09) H 02/26/17 06:00 CBCD WBC 9.8 K/mm3 (4.0-10.0) 03/02/17 07:15 RBC 3.33 M/mm3 (4.00-5.60) L 03/02/17 07:15 Hgb 11.0 GM/dL (11.7-16.9) L 03/02/17 07:15 Hct 32.3 % (35.4-49) L 03/02/17 07:15 MCV 96.8 fl (80-96) H 03/02/17 07:15 MCHC 33.9 g/dl (32.0-35.9) 03/02/17 07:15 RDW 16.2 % (11.9-15.9) H 03/02/17 07:15 Plt Count 325 K/MM3 (134-434) D 03/02/17 07:15 MPV 8.7 fl (7.5-11.1) 03/02/17 07:15 CMP Sodium 143 mmol/L (136-145) 03/02/17 07:15 Potassium 5.5 mmol/L (3.5-5.1) H 03/02/17 07:15 Chloride 108 mmol/L (98-107) H 03/02/17 07:15 Carbon Dioxide 29 mmol/L (21-32) 03/02/17 07:15 Anion Gap 6 (8-16) L 03/02/17 07:15 BUN 50 mg/dL (7-18) H 03/02/17 07:15 Creatinine 0.9 mg/dL (0.7-1.3) 03/02/17 07:15 Creat Clearance w eGFR > 60 (>60) 03/02/17 07:15 Calcium 8.4 mg/dL (8.5-10.1) L 03/02/17 07:15 Total Bilirubin 1.0 mg/dL (0.2-1.0) D 03/02/17 07:15 AST 15 U/L (15-37) 03/02/17 07:15 ALT 30 U/L (12-78) 03/02/17 07:15 Alkaline Phosphatase 153 U/L (45-117) H 03/02/17 07:15 Total Protein 6.9 g/dl (6.4-8.2) 03/02/17 07:15 Albumin 2.3 g/dl (3.4-5.0) L 03/02/17 07:15 Problem List - Problems (1) Failure to thrive in adult Code(s): R62.7 - ADULT FAILURE TO THRIVE (2) Cholangitis due to bile duct calculus with obstruction Code(s): K80.31 - CALCULUS OF BILE DUCT W CHOLANGITIS, UNSP, WITH OBSTRUCTION (3) Cholelithiasis Code(s): K80.20 - CALCULUS OF GALLBLADDER W/O CHOLECYSTITIS W/O OBSTRUCTION (4) Choledocholithiasis with obstruction Code(s): K80.51 - CALCULUS OF BILE DUCT W/O CHOLANGITIS OR CHOLECYST W OBST Qualifiers: Cholecystitis presence: without cholecystitis Qualified Code(s): K80.51 - Calculus of bile duct without cholangitis or cholecystitis with obstruction Assessment/Plan PEG care as per protocol. May use PEG, as intended, for medications, hydration, nutrition Aspiration precautions
--- NOTE | 2017-03-02 12:18 | PN ---
Progress Note (short form) - Note Progress Note: PULMONARY Pt nonverbal, appears comfortable. s/p PEG placement yesterday. Last Vital Signs Temp Pulse Resp BP Pulse Ox 97.5 F L 79 20 154/73 100 03/02/17 06:00 03/02/17 06:00 03/02/17 06:00 03/02/17 06:00 03/01/17 23:52 Gen: NAD at rest Heart: RRR Lung: decreased breath sounds at the bases Abd: soft, nontender Ext: no edema CBC, BMP 03/02/17 07:15 03/02/17 07:15 Active Medications Acetaminophen (Tylenol Suppository -) 650 mg [place] Q6H PRN PRN Reason: FEVER OR PAIN Last Admin: 02/25/17 05:43 Dose: 650 mg Artificial Tears (Artificial Tears) 1 drop OU HS [facility] Last Admin: 03/01/17 22:59 Dose: 1 drop Metoprolol Tartrate (Lopressor -) 50 mg GT BID [facility] Pantoprazole Sodium (Protonix Iv) 40 mg IVPUSH DAILY [facility] Last Admin: 03/02/17 11:04 Dose: 40 mg Polyethylene Glycol (Miralax (For Daily Use) -) 17 gm PO BID [facility] Last Admin: 03/02/17 11:19 Dose: 17 gm A/P s/p Acute Hypoxic Respiratory Failure Cholangitis Klebsiella Bacteremia s/p Cholecystostomy placement Severe Sepsis improved Acute Kidney Injury improving Anemia - start enteral feeds - aspiration precautions - DVT prophylaxis
--- NOTE | 2017-03-02 16:47 | PN ---
Progress Note, Physician History of Present Illness: Pt seen and examined at bedside. He appears comfortable. - Current Medication List Current Medications: Active Medications Acetaminophen (Tylenol Suppository -) 650 mg [place] Q6H PRN PRN Reason: FEVER OR PAIN Last Admin: 02/25/17 05:43 Dose: 650 mg Artificial Tears (Artificial Tears) 1 drop OU HS [facility] Last Admin: 03/01/17 22:59 Dose: 1 drop Metoprolol Tartrate (Lopressor -) 50 mg GT BID [facility] Pantoprazole Sodium (Protonix Iv) 40 mg IVPUSH DAILY [facility] Last Admin: 03/02/17 11:04 Dose: 40 mg Polyethylene Glycol (Miralax (For Daily Use) -) 17 gm PO BID [facility] Last Admin: 03/02/17 11:19 Dose: 17 gm - Objective Vital Signs: Vital Signs Temperature 98.6 F 03/02/17 10:00 Pulse Rate 78 03/02/17 10:00 Respiratory Rate 20 03/02/17 10:00 Blood Pressure 161/67 03/02/17 10:00 O2 Sat by Pulse Oximetry (%) 100 03/01/17 23:52 Constitutional: Yes: Calm Eyes: Yes: Conjunctiva Clear HENT: Yes: Atraumatic Neck: Yes: Supple Cardiovascular: Yes: S1, S2 Respiratory: Yes: CTA Bilaterally Gastrointestinal: Yes: Other (peg) Genitourinary: Yes: Incontinence Musculoskeletal: Yes: Muscle Weakness Edema: No Neurological: Yes: Confusion Labs: CBC, BMP 03/02/17 07:15 03/02/17 07:15 INR, PTT INR 1.16 (0.82-1.09) H 02/26/17 06:00 Problem List - Problems (1) Hypertension Code(s): I10 - ESSENTIAL (PRIMARY) HYPERTENSION Qualifiers: Hypertension type: essential hypertension Qualified Code(s): I10 - Essential (primary) hypertension (2) Acute cholangitis due to calculus of bile duct with obstruction Code(s): K80.37 - CALCULUS OF BILE DUCT W ACUTE AND CHRONIC CHOLANGITIS W OBST (3) JUAN J (acute kidney injury) Code(s): N17.9 - ACUTE KIDNEY FAILURE, UNSPECIFIED Assessment/Plan Current Medications Generic Name Dose Route Start Last Admin Trade Name Freq PRN Reason Stop Dose Admin Acetaminophen 650 mg 02/16/17 02:30 02/25/17 05:43 Tylenol Suppository - TN 650 mg Q6H PRN Administration FEVER OR PAIN Artificial Tears 1 drop 02/12/17 22:00 03/01/17 22:59 Artificial Tears OU 1 drop HS [facility] Administration Metoprolol Tartrate 50 mg 03/02/17 11:25 Lopressor - GT BID [facility] Pantoprazole Sodium 40 mg 02/13/17 10:00 03/02/17 11:04 Protonix Iv IVPUSH 40 mg DAILY [facility] Administration Polyethylene Glycol 17 gm 02/23/17 10:00 03/02/17 11:19 Miralax (For Daily Use) - PO 17 gm BID [facility] Administration Impression 1. JUAN J 2. acute resp failure 3. sepsis 4. bacteremia 5. alzheimers 6. anemia 7. choledocholithiasis 8. hypernatremia 9. hypokalemia resolved 10. malnutrition 11. hyperkalemia - recurrent Plan - feeds to be started today - add free water - start nepro - repeat labs in am - pt received kayexylate earlier today - keep HOB at 45 degrees - cholecystostomy care - will follow Dr Haynes
[2017-03-02] MEDS ORDERED: PT OWN MED DRAWER 7, Y5N ONE (20:08)
[2017-03-02] MEDS: ARTIFICIAL TEARS (POLYVINYL ALCOHOL 1.4%) OPTH DROPS OU SCH (21:52)
[2017-03-02] MEDS: METOPROLOL TARTRATE 50 MG TABLET (FP) GT SCH (21:52)
[2017-03-03 07:58] LABS: ANION GAP 8 (8-16); CALCIUM 8.6 mg/dL (8.5-10.1); CO2 31 mmol/L (21-32); GLUCOSE,RANDOM 130 mg/dL (74-106)
[2017-03-03] MEDS: PANTOPRAZOLE SODIUM 40 MG VIAL IVPUSH SCH (10:50)
[2017-03-03] MEDS: METOPROLOL TARTRATE 50 MG TABLET (FP) GT SCH ×2 (10:50→23:21)
[2017-03-03] MEDS: POLYETHYLENE GLYCOL 3350 119 GM BTL PO SCH ×2 (10:54→23:21)
--- NOTE | 2017-03-03 11:06 | PN ---
Progress Note, Physician History of Present Illness: Afebrile. Normal WBC. Stable Hgb. PEG intact at "4.5". No acute events. - Current Medication List Current Medications: Active Medications Acetaminophen (Tylenol Suppository -) 650 mg [place] Q6H PRN PRN Reason: FEVER OR PAIN Last Admin: 02/25/17 05:43 Dose: 650 mg Artificial Tears (Artificial Tears) 1 drop OU HS [facility] Last Admin: 03/02/17 21:52 Dose: 1 drop Metoprolol Tartrate (Lopressor -) 50 mg GT BID [facility] Last Admin: 03/03/17 10:50 Dose: 50 mg Pantoprazole Sodium (Protonix Iv) 40 mg IVPUSH DAILY [facility] Last Admin: 03/03/17 10:50 Dose: 40 mg Polyethylene Glycol (Miralax (For Daily Use) -) 17 gm PO BID [facility] Last Admin: 03/03/17 10:54 Dose: 17 gm - Objective Vital Signs: Vital Signs Temperature 99.3 F 03/03/17 07:00 Pulse Rate 84 03/03/17 07:00 Respiratory Rate 18 03/03/17 07:00 Blood Pressure 120/57 03/03/17 07:00 O2 Sat by Pulse Oximetry (%) 100 03/02/17 20:37 Constitutional: Yes: No Distress Eyes: Yes: Conjunctiva Clear HENT: Yes: Atraumatic Gastrointestinal: Yes: Soft. No: Melena, Rectal Bleeding, Tenderness Wound/Incision: Yes: Clean/Dry. No: Draining, Reddened, Bleeding, Excoriated Labs: CBC, BMP 03/02/17 07:15 03/03/17 06:15 INR, PTT INR 1.16 (0.82-1.09) H 02/26/17 06:00 CBCD WBC 9.8 K/mm3 (4.0-10.0) 03/02/17 07:15 RBC 3.33 M/mm3 (4.00-5.60) L 03/02/17 07:15 Hgb 11.0 GM/dL (11.7-16.9) L 03/02/17 07:15 Hct 32.3 % (35.4-49) L 03/02/17 07:15 MCV 96.8 fl (80-96) H 03/02/17 07:15 MCHC 33.9 g/dl (32.0-35.9) 03/02/17 07:15 RDW 16.2 % (11.9-15.9) H 03/02/17 07:15 Plt Count 325 K/MM3 (134-434) D 03/02/17 07:15 MPV 8.7 fl (7.5-11.1) 03/02/17 07:15 CMP Sodium 143 mmol/L (136-145) 03/03/17 06:15 Potassium 4.1 mmol/L (3.5-5.1) D 03/03/17 06:15 Chloride 104 mmol/L (98-107) 03/03/17 06:15 Carbon Dioxide 31 mmol/L (21-32) 03/03/17 06:15 Anion Gap 8 (8-16) 03/03/17 06:15 BUN 56 mg/dL (7-18) H 03/03/17 06:15 Creatinine 1.0 mg/dL (0.7-1.3) 03/03/17 06:15 Creat Clearance w eGFR > 60 (>60) 03/02/17 07:15 Calcium 8.6 mg/dL (8.5-10.1) 03/03/17 06:15 Total Bilirubin 1.0 mg/dL (0.2-1.0) D 03/02/17 07:15 AST 15 U/L (15-37) 03/02/17 07:15 ALT 30 U/L (12-78) 03/02/17 07:15 Alkaline Phosphatase 153 U/L (45-117) H 03/02/17 07:15 Total Protein 6.9 g/dl (6.4-8.2) 03/02/17 07:15 Albumin 2.3 g/dl (3.4-5.0) L 03/02/17 07:15 Problem List - Problems (1) Failure to thrive in adult Code(s): R62.7 - ADULT FAILURE TO THRIVE (2) Cholangitis due to bile duct calculus with obstruction Code(s): K80.31 - CALCULUS OF BILE DUCT W CHOLANGITIS, UNSP, WITH OBSTRUCTION (3) Cholelithiasis Code(s): K80.20 - CALCULUS OF GALLBLADDER W/O CHOLECYSTITIS W/O OBSTRUCTION (4) Choledocholithiasis with obstruction Code(s): K80.51 - CALCULUS OF BILE DUCT W/O CHOLANGITIS OR CHOLECYST W OBST Qualifiers: Cholecystitis presence: without cholecystitis Qualified Code(s): K80.51 - Calculus of bile duct without cholangitis or cholecystitis with obstruction Assessment/Plan PEG care as per protocol. Aspiration precautions Please recall GI PRN
--- NOTE | 2017-03-03 11:11 | DS ---
Physical Examination Vital Signs: Vital Signs Temperature 99.3 F 03/03/17 07:00 Pulse Rate 84 03/03/17 07:00 Respiratory Rate 18 03/03/17 07:00 Blood Pressure 120/57 03/03/17 07:00 O2 Sat by Pulse Oximetry (%) 100 03/02/17 20:37 Constitutional: Yes: No Distress, Calm Cardiovascular: Yes: Regular Rate and Rhythm Respiratory: Yes: CTA Bilaterally Gastrointestinal: Yes: Normal Bowel Sounds, Soft, Abdomen, Obese, Other (CARMELITA drain+, Peg tube). No: Distention, Tenderness Edema: No Neurological: Yes: Alert Labs: CBC, BMP 03/02/17 07:15 03/03/17 06:15 Discharge Summary Reason For Visit: SEVERE SEPSIS Current Active Problems JUAN J (acute kidney injury) (Acute) Acute cholangitis due to calculus of bile duct with obstruction (Acute) Calculus of gallbladder 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 (Acute) Cholangitis due to bile duct calculus with obstruction (Acute) Choledocholithiasis with obstruction (Acute) Cholelithiasis (Acute) Dementia with behavioral disturbance (Acute) Elevated liver function tests (Acute) Failure to thrive in adult (Acute) Hypertension (Acute) Klebsiella pneumoniae sepsis (Acute) Macular degeneration, age related (Acute) Malnutrition of moderate degree (Acute) Pancreatitis due to common bile duct stone (Acute) Recurrent fever (Acute) Sepsis due to Gram-negative organism with acute respiratory failure (Acute) Severe sepsis (Acute) Systemic inflammatory response syndrome (SIRS) (Acute) Hospital Course: ER HISTORY - History of Present Illness Initial Comments: 02/01/17 14:06 The patient is a 86 year old male resident from [facility] on [facility], with a significant past medical history of Alzheimer's, Vitamin B12 deficiency, HTN, Depression, Bipolar, Dementia, Osteoarthritis who presents to the emergency department for evaluation of fever. Patient denies any current complaints. Upon evaluation, patients vital signs significant for rectal temperature of 104. He denies chest pain, headache or dizziness. He denies fever, chills, abdominal pain, nausea, vomit, diarrhea or constipation. He denies dysuria, frequency, urgency or hematuria. Patient denies sick contacts or recent travel. Allergies: NKA Past surgical history: None Social history: None PCP: Dana calixtoian Sent from NH for 104F, lethargy Found to have acute colangitis and CBD dilation Not a candidate for cholecystectomy Troponins noted to be elevated HOSPITALIZATION COURSE Admitted to ICU for sepsis due to cholangitis, CBD dilation, elevated troponins. Seen by CCU team , GI, surgeon and substitute school nurse, ID, Renal He went in to acute respiratory failure, requiring intubation, had acute kidney injury . Was on broad spectrum iv antibiotics , iv fluids, later on had started him on Clinimix. Surgery not done as pt was considered high risk and so he had undergone percutaneous cholecystostomy drain by interventional radiology. later in the course of his stay here, he was successfully extubated but not completely awake enough for PO feeds-- he was evaluated by swallow therapist -- recommended clinimix,other modalities of providing nutrition as he was not fully awake. trial of NG feeding done, he tolerated NG feeds. Peg tube placed afterwards- he is tolerating GT feeds. He will need the CARMELITA drain indefinitely per Surgeon and ID because if it is removed, then he would become septic again. He completed antibiotics Remains afebrile No elevated WBC LFT and renal function better mental status slowly continues to improve but would not attempt PO feeds just yet till he is fully alert. He has mittens here to prevent him from removing the GTube and CARMELITA drain. Pt is not aggressive at all and he is fully cooperative on examination. Elevated troponins - due to sepsis and as the sepsis resolved, troponins trending down Pt is cleared for dc from hospital into STR -- will need to continue with GT feeding, avoid aspiration, pt should be seated upright. Mittens to prevent pulling out the tubes and abdominal binder should be in place. Should be reassessed by speech and swallow therapist for trial of oral feeds ADVANCE DIRECTIVES-- PT IS DNR/DNI Preparation time for dc -- 40 min . Condition: Improved - Instructions Referrals: Dana King MD [Primary Care Provider] - Disposition: RESIDENTIAL FACILITY - Home Medications Comprehensive Discharge Medication List: Ambulatory Orders Metoprolol Succinate [Toprol XL -] 50 mg PO DAILY 09/12/13 Cyanocobalamin [Vitamin B12 -] 1,000 mcg PO DAILY 02/01/17 Escitalopram Oxalate [Lexapro -] 5 mg PO DAILY 02/01/17 Loratadine [Claritin] 10 mg PO DAILY 02/01/17 Olanzapine [Zyprexa] 7.5 mg PO DAILY 02/01/17 Sennosides [Senna] 8.6 mg PO HS 02/01/17 Ascorbate Calcium [Vitamin C] 500 mg PO DAILY 02/02/17 Losartan Potassium [Cozaar] 50 mg PO DAILY 02/02/17
--- NOTE | 2017-03-03 12:03 | PN ---
Progress Note, CHIEF CLINICAL OFFICER - Note Progress Note: PEG was placed. Discussed case with PMD. Selected Entries 03/02/17 03/02/17 03/02/17 02:00 06:00 10:00 Temperature 99.2 F 97.5 F L 98.6 F 03/02/17 03/02/17 03/03/17 19:00 22:42 03:00 Temperature 98.7 F 97.9 F 97.8 F 03/03/17 03/03/17 07:00 11:00 Temperature 99.3 F 98.7 F Laboratory Tests 03/02/17 07:15 WBC 9.8 For f/u by speech pathologist at [facility], for swallowing re-evaluation, as pt becomes more alert and if he is cooperative with PO trials.
--- NOTE | 2017-03-03 18:03 | PN ---
Progress Note, Physician History of Present Illness: Pt seen and examined at bedside. He appears comfortable. - Current Medication List Current Medications: Active Medications Acetaminophen (Tylenol Suppository -) 650 mg [place] Q6H PRN PRN Reason: FEVER OR PAIN Last Admin: 02/25/17 05:43 Dose: 650 mg Artificial Tears (Artificial Tears) 1 drop OU HS [facility] Last Admin: 03/02/17 21:52 Dose: 1 drop Metoprolol Tartrate (Lopressor -) 50 mg GT BID [facility] Last Admin: 03/03/17 10:50 Dose: 50 mg Pantoprazole Sodium (Protonix Iv) 40 mg IVPUSH DAILY [facility] Last Admin: 03/03/17 10:50 Dose: 40 mg Polyethylene Glycol (Miralax (For Daily Use) -) 17 gm PO BID [facility] Last Admin: 03/03/17 10:54 Dose: 17 gm - Objective Vital Signs: Vital Signs Temperature 100.6 F H 03/03/17 14:00 Pulse Rate 74 03/03/17 14:00 Respiratory Rate 20 03/03/17 14:00 Blood Pressure 148/69 03/03/17 14:00 O2 Sat by Pulse Oximetry (%) 100 03/02/17 20:37 Constitutional: Yes: Calm Eyes: Yes: Conjunctiva Clear HENT: Yes: Atraumatic Cardiovascular: Yes: S1, S2 Respiratory: Yes: CTA Bilaterally Gastrointestinal: Yes: Soft, Other (peg) Genitourinary: Yes: Incontinence Musculoskeletal: Yes: Muscle Weakness Edema: No Neurological: Yes: Confusion Labs: CBC, BMP 03/02/17 07:15 03/03/17 06:15 INR, PTT INR 1.16 (0.82-1.09) H 02/26/17 06:00 Problem List - Problems (1) Hypertension Code(s): I10 - ESSENTIAL (PRIMARY) HYPERTENSION Qualifiers: Hypertension type: essential hypertension Qualified Code(s): I10 - Essential (primary) hypertension (2) Acute cholangitis due to calculus of bile duct with obstruction Code(s): K80.37 - CALCULUS OF BILE DUCT W ACUTE AND CHRONIC CHOLANGITIS W OBST (3) JUAN J (acute kidney injury) Code(s): N17.9 - ACUTE KIDNEY FAILURE, UNSPECIFIED Assessment/Plan Current Medications Generic Name Dose Route Start Last Admin Trade Name Freq PRN Reason Stop Dose Admin Acetaminophen 650 mg 02/16/17 02:30 02/25/17 05:43 Tylenol Suppository - [place] 650 mg Q6H PRN Administration FEVER OR PAIN Artificial Tears 1 drop 02/12/17 22:00 03/02/17 21:52 Artificial Tears OU 1 drop HS [facility] Administration Metoprolol Tartrate 50 mg 03/02/17 11:25 03/03/17 10:50 Lopressor - GT 50 mg BID [facility] Administration Pantoprazole Sodium 40 mg 02/13/17 10:00 03/03/17 10:50 Protonix Iv IVPUSH 40 mg DAILY [facility] Administration Polyethylene Glycol 17 gm 02/23/17 10:00 03/03/17 10:54 Miralax (For Daily Use) - PO 17 gm BID [facility] Administration Impression 1. JUAN J 2. acute resp failure 3. sepsis 4. bacteremia 5. alzheimers 6. anemia 7. choledocholithiasis 8. hypernatremia 9. hypokalemia resolved 10. malnutrition 11. hyperkalemia - recurrent Plan - pt tolerating feeds - labs reviewed - will need to monitor potassium and renal function in NH - potassium is improved - cont with nepro - keep HOB at 45 degrees - cholecystostomy care - will follow Dr Haynes
[2017-03-03] MEDS ORDERED: PT OWN MED DRAWER 7, Y5N ONE (20:02)
--- NOTE | 2017-03-03 20:28 | PN ---
Progress Note (short form) - Note Progress Note: noted low grade fever pt tolerating feeding currently afebrile cultures have been negative spoke with son at length -- he would like to hold discharge-- he has agreed for dc in AM if no further elevated temps. I explained to the son that pt will be having these intermittent temp fluctuations due to silent aspiration and gallbladder pathology Problem List - Problems (1) Severe sepsis Code(s): A41.9 - SEPSIS, UNSPECIFIED ORGANISM; R65.20 - SEVERE SEPSIS WITHOUT SEPTIC SHOCK (2) Elevated liver function tests Code(s): R79.89 - OTHER SPECIFIED ABNORMAL FINDINGS OF BLOOD CHEMISTRY (3) Cholangitis due to bile duct calculus with obstruction Code(s): K80.31 - CALCULUS OF BILE DUCT W CHOLANGITIS, UNSP, WITH OBSTRUCTION (4) Choledocholithiasis with obstruction Code(s): K80.51 - CALCULUS OF BILE DUCT W/O CHOLANGITIS OR CHOLECYST W OBST Qualifiers: Cholecystitis presence: without cholecystitis Qualified Code(s): K80.51 - Calculus of bile duct without cholangitis or cholecystitis with obstruction (5) Dementia with behavioral disturbance Code(s): F03.91 - UNSPECIFIED DEMENTIA WITH BEHAVIORAL DISTURBANCE Qualifiers: Dementia type: unspecified type Qualified Code(s): F03.91 - Unspecified dementia with behavioral disturbance (6) Calculus of gallbladder 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 Code(s): K80.67 - CALCULUS OF GB AND BILE DUCT W AC AND CHR CHOLECYST W OBST (7) Hypertension Code(s): I10 - ESSENTIAL (PRIMARY) HYPERTENSION Qualifiers: Hypertension type: essential hypertension Qualified Code(s): I10 - Essential (primary) hypertension (8) Malnutrition of moderate degree Code(s): E44.0 - MODERATE PROTEIN-CALORIE MALNUTRITION (9) Recurrent fever Code(s): A68.9 - RELAPSING FEVER, UNSPECIFIED
[2017-03-03] MEDS: ARTIFICIAL TEARS (POLYVINYL ALCOHOL 1.4%) OPTH DROPS OU SCH (23:20)
[2017-03-04] MEDS: METOPROLOL TARTRATE 50 MG TABLET (FP) GT SCH (11:59)
[2017-03-04] MEDS: PANTOPRAZOLE SODIUM 40 MG VIAL IVPUSH SCH (12:00)
[2017-03-04] MEDS: POLYETHYLENE GLYCOL 3350 119 GM BTL PO SCH (12:01)
[2017-03-04 12:39] VITALS: BP 124/61; PULSE 85; TEMP 99.2
--- NOTE | 2017-03-04 13:10 | PN ---
Progress Note, Physician Chief Complaint: Infectious Disease f/u: History of Present Illness: Pt remains without acute distress. Noted with mild temperature elevations - Tmax 99.2 but no new events reported. No respiratory distress, no diarrhea. - Current Medication List Current Medications: Active Medications Acetaminophen (Tylenol Suppository -) 650 mg [place] Q6H PRN PRN Reason: FEVER OR PAIN Last Admin: 02/25/17 05:43 Dose: 650 mg Artificial Tears (Artificial Tears) 1 drop OU HS [facility] Last Admin: 03/03/17 23:20 Dose: 1 drop Metoprolol Tartrate (Lopressor -) 50 mg GT BID [facility] Last Admin: 03/04/17 11:59 Dose: 50 mg Pantoprazole Sodium (Protonix Iv) 40 mg IVPUSH DAILY [facility] Last Admin: 03/04/17 12:00 Dose: 40 mg Polyethylene Glycol (Miralax (For Daily Use) -) 17 gm PO BID [facility] Last Admin: 03/04/17 12:01 Dose: 17 gm - Objective Vital Signs: Vital Signs Temperature 99.2 F 03/04/17 10:00 Pulse Rate 85 03/04/17 10:00 Respiratory Rate 18 03/04/17 10:00 Blood Pressure 124/61 03/04/17 10:00 O2 Sat by Pulse Oximetry (%) 99 03/04/17 09:00 Constitutional: Yes: No Distress Cardiovascular: Yes: Regular Rate and Rhythm Respiratory: Yes: Regular Gastrointestinal: Yes: Normal Bowel Sounds, Soft, Other (biliary drain functioning, bilious fluid, peg in place) Extremities: Yes: WNL Integumentary: Yes: WNL Neurological: Yes: Weakness (arousable) Labs: CBC, BMP 03/02/17 07:15 03/03/17 06:15 INR, PTT INR 1.16 (0.82-1.09) H 02/26/17 06:00 Problem List - Problems (1) Calculus of gallbladder 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 Code(s): K80.67 - CALCULUS OF GB AND BILE DUCT W AC AND CHR CHOLECYST W OBST (2) Dementia with behavioral disturbance Code(s): F03.91 - UNSPECIFIED DEMENTIA WITH BEHAVIORAL DISTURBANCE Qualifiers: Dementia type: unspecified type Qualified Code(s): F03.91 - Unspecified dementia with behavioral disturbance (3) Klebsiella pneumoniae sepsis Code(s): A41.4 - SEPSIS DUE TO ANAEROBES Assessment/Plan Pt is s/p course of antibiotic treatment for cholangitis/cholecystitis with biliary obstruction s/p sepsis. Minimal occasional temp elevations. - afebrile today, vitals stable, no s/s of sepsis - will hold off antibiotics at this time cont monitor d/w Dr Martinez
--- NOTE | 2017-03-04 13:17 | PN ---
Progress Note (short form) - Note Progress Note: PULMONARY Pt nonverbal, appears comfortable. Last Vital Signs Temp Pulse Resp BP Pulse Ox 99.2 F 85 18 124/61 99 03/04/17 10:00 03/04/17 10:00 03/04/17 10:00 03/04/17 10:00 03/04/17 09:00 Gen: NAD at rest Heart: RRR Lung: decreased breath sounds at the bases Abd: soft, nontender Ext: no edema CBC, BMP 03/02/17 07:15 03/03/17 06:15 Active Medications Acetaminophen (Tylenol Suppository -) 650 mg [place] Q6H PRN PRN Reason: FEVER OR PAIN Last Admin: 02/25/17 05:43 Dose: 650 mg Artificial Tears (Artificial Tears) 1 drop OU HS [facility] Last Admin: 03/03/17 23:20 Dose: 1 drop Metoprolol Tartrate (Lopressor -) 50 mg GT BID [facility] Last Admin: 03/04/17 11:59 Dose: 50 mg Pantoprazole Sodium (Protonix Iv) 40 mg IVPUSH DAILY [facility] Last Admin: 03/04/17 12:00 Dose: 40 mg Polyethylene Glycol (Miralax (For Daily Use) -) 17 gm PO BID [facility] Last Admin: 03/04/17 12:01 Dose: 17 gm A/P s/p Acute Hypoxic Respiratory Failure Cholangitis Klebsiella Bacteremia s/p Cholecystostomy placement Severe Sepsis improved Acute Kidney Injury improving Anemia - enteral feeds - monitoring off antibiotics - aspiration precautions - DVT prophylaxis
--- NOTE | 2017-03-04 13:45 | PN ---
Progress Note (short form) - Note Progress Note: patient seen in his room alert, awake Tmax-99.2 spoke with ID stable for discharge Vital Signs Period Temp Pulse Resp BP Sys/Hernandez Pulse Ox Last 24 Hr 97.6 F-100.6 F 74-92 18-20 112-148/45-70 99-99 Active Medications Acetaminophen (Tylenol Suppository -) 650 mg [place] Q6H PRN PRN Reason: FEVER OR PAIN Last Admin: 02/25/17 05:43 Dose: 650 mg Artificial Tears (Artificial Tears) 1 drop OU HS [facility] Last Admin: 03/03/17 23:20 Dose: 1 drop Metoprolol Tartrate (Lopressor -) 50 mg GT BID [facility] Last Admin: 03/04/17 11:59 Dose: 50 mg Pantoprazole Sodium (Protonix Iv) 40 mg IVPUSH DAILY [facility] Last Admin: 03/04/17 12:00 Dose: 40 mg Polyethylene Glycol (Miralax (For Daily Use) -) 17 gm PO BID [facility] Last Admin: 03/04/17 12:01 Dose: 17 gm N- alert, awake cvs-s1s2 lungs-clear abdomen- soft, ND, NT, GT, CARMELITA drain site intact LE- no edema PLAN continue CARMELIAT drain continue feeding supportive care for discharge today discussed with ID Problem List - Problems (1) Acute cholangitis due to calculus of bile duct with obstruction Code(s): K80.37 - CALCULUS OF BILE DUCT W ACUTE AND CHRONIC CHOLANGITIS W OBST (2) Choledocholithiasis with obstruction Code(s): K80.51 - CALCULUS OF BILE DUCT W/O CHOLANGITIS OR CHOLECYST W OBST Qualifiers: Cholecystitis presence: without cholecystitis Qualified Code(s): K80.51 - Calculus of bile duct without cholangitis or cholecystitis with obstruction (3) Dementia with behavioral disturbance Code(s): F03.91 - UNSPECIFIED DEMENTIA WITH BEHAVIORAL DISTURBANCE Qualifiers: Dementia type: unspecified type Qualified Code(s): F03.91 - Unspecified dementia with behavioral disturbance (4) Elevated liver function tests Code(s): R79.89 - OTHER SPECIFIED ABNORMAL FINDINGS OF BLOOD CHEMISTRY (5) Failure to thrive in adult Code(s): R62.7 - ADULT FAILURE TO THRIVE (6) Klebsiella pneumoniae sepsis Code(s): A41.4 - SEPSIS DUE TO ANAEROBES (7) Malnutrition of moderate degree Code(s): E44.0 - MODERATE PROTEIN-CALORIE MALNUTRITION (8) Sepsis due to Gram-negative organism with acute respiratory failure Code(s): A41.50 - GRAM-NEGATIVE SEPSIS, UNSPECIFIED; R65.20 - SEVERE SEPSIS WITHOUT SEPTIC SHOCK; J96.00 - ACUTE RESPIRATORY FAILURE, UNSP W HYPOXIA OR HYPERCAPNIA
--- NOTE | 2017-03-04 14:02 | PN ---
Progress Note (short form) - Note Progress Note: pt examined alongside [employer]ING [employer]NER Afshan tmax 99 no distress tolerating GT feeding Vital Signs - 24 hr 03/03/17 03/03/17 03/03/17 18:05 21:00 22:00 Temperature 97.6 F 99.2 F Pulse Rate 84 91 H Respiratory 18 18 18 Rate Blood Pressure 123/45 112/66 O2 Sat by Pulse 99 Oximetry (%) 03/04/17 03/04/17 03/04/17 02:00 06:00 09:00 Temperature 97.9 F 98.2 F Pulse Rate 92 H 78 Respiratory 18 18 18 Rate Blood Pressure 135/70 127/65 O2 Sat by Pulse 99 Oximetry (%) 03/04/17 10:00 Temperature 99.2 F Pulse Rate 85 Respiratory 18 Rate Blood Pressure 124/61 O2 Sat by Pulse Oximetry (%) Current Medications Generic Name Dose Route Start Last Admin Trade Name Freq PRN Reason Stop Dose Admin Acetaminophen 650 mg 02/16/17 02:30 02/25/17 05:43 Tylenol Suppository - NM 650 mg Q6H PRN Administration FEVER OR PAIN Artificial Tears 1 drop 02/12/17 22:00 03/03/17 23:20 Artificial Tears OU 1 drop HS [facility] Administration Metoprolol Tartrate 50 mg 03/02/17 11:25 03/04/17 11:59 Lopressor - GT 50 mg BID [facility] Administration Pantoprazole Sodium 40 mg 02/13/17 10:00 03/04/17 12:00 Protonix Iv IVPUSH 40 mg DAILY [facility] Administration Polyethylene Glycol 17 gm 02/23/17 10:00 03/04/17 12:01 Miralax (For Daily Use) - PO 17 gm BID [facility] Administration S1 s2 RRR Lungs clear GT+, CARMELITA drain+ PLAN - ok for dc to NH -- spoke with ID Problem List - Problems (1) Severe sepsis Code(s): A41.9 - SEPSIS, UNSPECIFIED ORGANISM; R65.20 - SEVERE SEPSIS WITHOUT SEPTIC SHOCK (2) Elevated liver function tests Code(s): R79.89 - OTHER SPECIFIED ABNORMAL FINDINGS OF BLOOD CHEMISTRY (3) Cholangitis due to bile duct calculus with obstruction Code(s): K80.31 - CALCULUS OF BILE DUCT W CHOLANGITIS, UNSP, WITH OBSTRUCTION (4) Choledocholithiasis with obstruction Code(s): K80.51 - CALCULUS OF BILE DUCT W/O CHOLANGITIS OR CHOLECYST W OBST Qualifiers: Cholecystitis presence: without cholecystitis Qualified Code(s): K80.51 - Calculus of bile duct without cholangitis or cholecystitis with obstruction (5) Dementia with behavioral disturbance Code(s): F03.91 - UNSPECIFIED DEMENTIA WITH BEHAVIORAL DISTURBANCE Qualifiers: Dementia type: unspecified type Qualified Code(s): F03.91 - Unspecified dementia with behavioral disturbance (6) Calculus of gallbladder 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 Code(s): K80.67 - CALCULUS OF GB AND BILE DUCT W AC AND CHR CHOLECYST W OBST (7) Hypertension Code(s): I10 - ESSENTIAL (PRIMARY) HYPERTENSION Qualifiers: Hypertension type: essential hypertension Qualified Code(s): I10 - Essential (primary) hypertension (8) Malnutrition of moderate degree Code(s): E44.0 - MODERATE PROTEIN-CALORIE MALNUTRITION (9) Recurrent fever Code(s): A68.9 - RELAPSING FEVER, UNSPECIFIED
--- NOTE | 2017-03-04 14:37 | PN ---
Progress Note, Physician History of Present Illness: Pt seen and examined. No new events. - Current Medication List Current Medications: Active Medications Acetaminophen (Tylenol Suppository -) 650 mg [place] Q6H PRN PRN Reason: FEVER OR PAIN Last Admin: 02/25/17 05:43 Dose: 650 mg Artificial Tears (Artificial Tears) 1 drop OU HS [facility] Last Admin: 03/03/17 23:20 Dose: 1 drop Metoprolol Tartrate (Lopressor -) 50 mg GT BID [facility] Last Admin: 03/04/17 11:59 Dose: 50 mg Pantoprazole Sodium (Protonix Iv) 40 mg IVPUSH DAILY [facility] Last Admin: 03/04/17 12:00 Dose: 40 mg Polyethylene Glycol (Miralax (For Daily Use) -) 17 gm PO BID [facility] Last Admin: 03/04/17 12:01 Dose: 17 gm - Objective Vital Signs: Vital Signs Temperature 99.2 F 03/04/17 10:00 Pulse Rate 85 03/04/17 10:00 Respiratory Rate 18 03/04/17 10:00 Blood Pressure 124/61 03/04/17 10:00 O2 Sat by Pulse Oximetry (%) 99 03/04/17 09:00 Constitutional: Yes: Calm Eyes: Yes: Conjunctiva Clear HENT: Yes: Atraumatic Neck: Yes: Supple Cardiovascular: Yes: S1, S2 Respiratory: Yes: CTA Bilaterally Gastrointestinal: Yes: Soft, Other (peg) Genitourinary: Yes: Incontinence Edema: No Neurological: Yes: Lethargy Labs: CBC, BMP 03/02/17 07:15 03/03/17 06:15 INR, PTT INR 1.16 (0.82-1.09) H 02/26/17 06:00 Problem List - Problems (1) Hypertension Code(s): I10 - ESSENTIAL (PRIMARY) HYPERTENSION Qualifiers: Hypertension type: essential hypertension Qualified Code(s): I10 - Essential (primary) hypertension (2) Acute cholangitis due to calculus of bile duct with obstruction Code(s): K80.37 - CALCULUS OF BILE DUCT W ACUTE AND CHRONIC CHOLANGITIS W OBST (3) JUAN J (acute kidney injury) Code(s): N17.9 - ACUTE KIDNEY FAILURE, UNSPECIFIED Assessment/Plan Current Medications Generic Name Dose Route Start Last Admin Trade Name Freq PRN Reason Stop Dose Admin Acetaminophen 650 mg 02/16/17 02:30 02/25/17 05:43 Tylenol Suppository - [place] 650 mg Q6H PRN Administration FEVER OR PAIN Artificial Tears 1 drop 02/12/17 22:00 03/03/17 23:20 Artificial Tears OU 1 drop HS [facility] Administration Metoprolol Tartrate 50 mg 03/02/17 11:25 03/04/17 11:59 Lopressor - GT 50 mg BID [facility] Administration Pantoprazole Sodium 40 mg 02/13/17 10:00 03/04/17 12:00 Protonix Iv IVPUSH 40 mg DAILY [facility] Administration Polyethylene Glycol 17 gm 02/23/17 10:00 03/04/17 12:01 Miralax (For Daily Use) - PO 17 gm BID [facility] Administration Impression 1. JUAN J 2. acute resp failure 3. sepsis 4. bacteremia 5. alzheimers 6. anemia 7. choledocholithiasis 8. hypernatremia 9. hypokalemia resolved 10. malnutrition 11. hyperkalemia - recurrent Plan - no new labs - pt tolerating feeds - will need to monitor potassium and renal function in NH - cont with nepro - keep HOB at [address] Haynes
== END 2017-03-04 14:52 | DRG 870 ==
LOC: JER 12:12 → JERBED 15:44 → J4W 02-02 15:30 → JICU 02-03 08:19 → J4S 02-13 20:59 → J5S 03-01 22:59
PROVIDERS: ADMIT Internal Medicine; ATTEND Internal Medicine
PROC: 0F9430Z Drainage of Gallbladder with Drainage Device, Percutaneous Approach (ICD-10-PCS; principal; 2017-02-01)
PROC: BF13YZZ Fluoroscopy of Gallbladder and Bile Ducts using Other Contrast (ICD-10-PCS; 2017-02-01)
PROC: 5A1955Z Respiratory Ventilation, Greater than 96 Consecutive Hours (ICD-10-PCS; 2017-02-03)
PROC: 0BH17EZ Insertion of Endotracheal Airway into Trachea, Via Natural or Artificial Opening (ICD-10-PCS; 2017-02-03)
PROC: 30233N1 Transfusion of Nonautologous Red Blood Cells into Peripheral Vein, Percutaneous Approach (ICD-10-PCS; 2017-02-03)
PROC: 3E0G76Z Introduction of Nutritional Substance into Upper GI, Via Natural or Artificial Opening (ICD-10-PCS; 2017-02-06)
PROC: 30233R1 Transfusion of Nonautologous Platelets into Peripheral Vein, Percutaneous Approach (ICD-10-PCS; 2017-02-09)
PROC: 0DH67UZ Insertion of Feeding Device into Stomach, Via Natural or Artificial Opening (ICD-10-PCS; 2017-02-18)
PROC: 0DH67UZ Insertion of Feeding Device into Stomach, Via Natural or Artificial Opening (ICD-10-PCS; 2017-02-19)
PROC: 0DH63UZ Insertion of Feeding Device into Stomach, Percutaneous Approach (ICD-10-PCS; 2017-03-01)
DX: A41.59 Other Gram-negative sepsis (principal); K80.67 Calculus of gallbladder 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; K85.90 Acute pancreatitis without necrosis or infection, unspecified; J96.01 Acute respiratory failure with hypoxia; F31.89 Other bipolar disorder; K80.31 Calculus of bile duct with cholangitis, unspecified, with obstruction; F03.91 Unspecified dementia, unspecified severity, with behavioral disturbance; N17.9 Acute kidney failure, unspecified; E87.0 Hyperosmolality and hypernatremia; D62 Acute posthemorrhagic anemia; I47.1 Supraventricular tachycardia; E44.0 Moderate protein-calorie malnutrition; G30.8 Other Alzheimer's disease; R65.20 Severe sepsis without septic shock; F02.80 Dementia in other diseases classified elsewhere, unspecified severity, without behavioral disturbance, psychotic disturbance, mood disturbance, and anxiety; E53.8 Deficiency of other specified B group vitamins; I10 Essential (primary) hypertension; M19.90 Unspecified osteoarthritis, unspecified site; R53.83 Other fatigue; R63.0 Anorexia; Z68.22 Body mass index [BMI] 22.0-22.9, adult; H35.30 Unspecified macular degeneration; H54.8 Legal blindness, as defined in USA; I25.10 Atherosclerotic heart disease of native coronary artery without angina pectoris; R79.89 Other specified abnormal findings of blood chemistry; R06.02 Shortness of breath; E87.8 Other disorders of electrolyte and fluid balance, not elsewhere classified; D64.9 Anemia, unspecified; R00.0 Tachycardia, unspecified; R06.82 Tachypnea, not elsewhere classified; E83.51 Hypocalcemia; E87.6 Hypokalemia; E83.42 Hypomagnesemia; E83.39 Other disorders of phosphorus metabolism; R62.7 Adult failure to thrive; R50.9 Fever, unspecified; E87.5 Hyperkalemia; Z66 Do not resuscitate; Z87.891 Personal history of nicotine dependence
CPT/HCPCS: 36415; 36430; 36600; 47490; 70450-TC; 70486-TC; 71010-TC; 74000-TC; 74176-TC; 74181-TC; 76000-TC; 76098-TC; 76705-TC; 76775-TC; 76856-TC; 76998-TC; 80048; 80053; 80076; 81003; 81015; 82140; 82436; 82550; 82553; 82570; 82803; 83605; 83690; 83735; 84100; 84133; 84300; 84484; 85025; 85610; 85730; 86850; 86900; 86901; 86922; 87040; 87070; 87075; 87086; 87186; 87205; 87804; 87899; 93005; 93010; 93306-TC; 94002; 94640; 97161-GP; 99285-25; C1729; C1769; J1644; P9034; P9038; P9058

== ENCOUNTER 2017-03-08 12:40 | Observation (INO) | payer OTHER ==
--- NOTE | 2017-03-08 13:14 | PDOC ---
History of Present Illness - General Chief Complaint: Syncope/Near Syncope Stated Complaint: Syncope/Near Syncope Time Seen by Provider: 03/08/17 13:01 History Source: Patient Exam Limitations: No Limitations - History of Present Illness Initial Comments: This is an 86 YOM with recent admission for sepsis and respiratory failure 2/2 ascending cholangitis and choledocholithiasis and pancreatitis and JUAN J ( discharged 03/04/17), current CARMELITA drain and G-tube use with mittens to prevent manipulation, current levaquin use, recent Klebsiella PNA, HTN (on metoprolol), anemia, and Alzheimer's dementia who presents BIBA from [place] c/o listlessness , diaphoresis, and respiratory distress 2/2 wet cough and secretions requiring 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 He reportedly desaturated at his SNF during this episode. The patient himself is unable to provide any of his medical history as he is nonverbal. The patient is DNR/DNI per SNF records (form completed 02/27/17). Past History - Past Medical History Allergies/Adverse Reactions: Allergies Allergy/AdvReac Type Severity Reaction Status Date / Time No Known Allergies Allergy Unverified 03/08/17 13:11 Home Medications: Ambulatory Orders Sennosides [Senna] 8.6 mg GT HS 02/01/17 Ascorbate Calcium [Vitamin C] 500 mg PEG DAILY #0 syr 03/03/17 Cyanocobalamin [Vitamin B12 -] 1,000 mcg PEG DAILY #0 syr 03/03/17 Metoprolol Tartrate [Lopressor -] 50 mg GT BID #60 tablet 03/03/17 Pantoprazole Suspension [Protonix Packets For Oral Suspension -] 40 mg PEG DAILY #30 packet 03/03/17 Acetaminophen [Tylenol -] 500 mg PO QSHIFT 03/08/17 Hypromellose 0.5% Opth Soln [Artificial Tears] 1 drop GT DAILY 03/08/17 Lactobacillus Acidophilus [Acidophilus] 1 each GT DAILY 03/08/17 Levofloxacin [Levaquin] 500 mg GT DAILY 03/08/17 Polyvinyl Alcohol [Artificial Tears] 1 drop GT HS 03/08/17 Ranitidine Oral Solution [Zantac] 15 mg GT DAILY 03/08/17 COPD: No HTN: Yes Psychiatric Problems: Yes - Suicide/Smoking/Psychosocial Hx Smoking History: Former smoker Have you smoked in the past 12 months: No If you are a former smoker, when did you quit?: 30 YRS AGO - 1-2ppd x 20-30 yrs Hx Alcohol Use: No Drug/Substance Use Hx: No Substance Use Type: None Review of Systems - Review of Systems Able to Perform ROS?: No (nonverbal, dementia) *Physical Exam - Vital Signs Last Vital Signs Temp Pulse Resp BP Pulse Ox 99.5 F 89 19 151/82 99 03/08/17 12:40 03/08/17 16:57 03/08/17 16:57 03/08/17 16:57 03/08/17 16:57 - Physical Exam General Appearance: Yes: Other (chronically ill-appearing elderly male who is nonverbal, moving upper extremities but holds them in contraction, intermittently agitated, appears malnourished and cachectic) HEENT: positive: EOMI. negative: Scleral Icterus (R), Scleral Icterus (L), Lesions Neck: positive: Trachea midline, Supple. negative: Lymphadenopathy (R), Lymphadenopathy (L) Respiratory/Chest: positive: Lungs Clear, Normal Breath Sounds. negative: Respiratory Distress, Labored Respiration Cardiovascular: positive: Regular Rhythm, Regular Rate. negative: Edema, JVD, Murmur Gastrointestinal/Abdominal: positive: Normal Bowel Sounds, Flat, Soft, Other ( CARMELITA drain in place RUQ with site CDI, G-tube in place LUQ with site CDI). negative: Tender, Pulsatile Mass Musculoskeletal: positive: Other (chronic-appearing muscle wasting) Extremity: positive: Normal Capillary Refill, Other (dry skin and tinea pedis but no obvious ulceration or e/o infection). negative: Pedal Edema, Swelling, Erythema Integumentary: positive: Normal Color, Dry. negative: Erythema, Jaundice, Rash Neurologic: positive: Alert, Respond to painful stimul, Other (patient cannot participate further in neurologic exam). negative: Fully Oriented, Facial Droop Heart Score/ECG Review - History History: Slightly suspicious - Age Age: >/= 65 - Risk Factors Risk Factors Heart Score: Yes Hx Hypertension #1 Ventricular trigeminy, rate of 75, left axis deviation, q waves inferiorly which are unchanged from prior study, otherwise no changes. ED Treatment Course - LABORATORY CBC & Chemistry Diagram: 03/08/17 14:00 03/08/17 14:50 - ADDITIONAL ORDERS Additional order review: Laboratory Results 03/08/17 03/08/17 03/08/17 15:03 14:50 14:00 PT with INR INR PTT (Actin FS) VBG pH POC VBG pCO2 POC VBG pO2 Mixed VBG HCO3 Sodium 143 Potassium 4.8 Chloride 107 Carbon Dioxide 30 Anion Gap 6 L BUN 63 H Creatinine 1.3 D Creat Clearance w eGFR 52.22 Random Glucose 98 D Lactic Acid 1.6 Calcium 8.1 L Total Bilirubin 0.6 D AST 18 ALT 32 Alkaline Phosphatase 183 H Creatine Kinase Troponin I Total Protein 7.5 Albumin 2.4 L Urine Color Yellow Urine Appearance Clear Urine pH 6.0 D Ur Specific [place] 1.020 Urine Protein Negative Urine Glucose (UA) Negative Urine Ketones Negative Urine Blood Negative Urine Nitrite Negative Urine Bilirubin Negative Urine Urobilinogen 2.0 03/08/17 03/08/17 03/08/17 14:00 14:00 14:00 PT with INR 13.60 H INR 1.20 H PTT (Actin FS) 22.7 L VBG pH 7.44 H POC VBG pCO2 46.8 POC VBG pO2 58.3 H D Mixed VBG HCO3 31.0 H Sodium Cancelled Potassium Cancelled Chloride Cancelled Carbon Dioxide Cancelled Anion Gap Cancelled BUN Cancelled Creatinine Cancelled Creat Clearance w eGFR Cancelled Random Glucose Cancelled Lactic Acid Calcium Cancelled Total Bilirubin Cancelled AST Cancelled ALT Cancelled Alkaline Phosphatase Cancelled Creatine Kinase Cancelled Troponin I Cancelled Total Protein Cancelled Albumin Cancelled Urine Color Urine Appearance Urine pH Ur Specific [place] Urine Protein Urine Glucose (UA) Urine Ketones Urine Blood Urine Nitrite Urine Bilirubin Urine Urobilinogen 03/08/17 14:00 RBC 3.54 L MCV 97.3 H MCHC 33.7 RDW 15.9 MPV 8.9 Neutrophils % 70.8 Lymphocytes % 17.9 Monocytes % 8.1 Eosinophils % 2.6 Basophils % 0.6 - RADIOLOGY Radiology Studies Ordered: Category Date Time Status CHEST X-RAY PORTABLE* [RAD] Stat Radiology 03/08/17 13:37 Completed Medical Decision Making - Medical Decision Making 86 YOM with complex recent admission for cholangitis/choledocholithiasis/ pancreatitis with CARMELITA drain placed. Also recent Klebsiella PNA and ESBL UTI within the past week. Unclear initially if the patient was transferred for fever as his rectal temp is 99.5 on arrival to ED. On exam he has BUE held in contraction, nonverbal but appears a bit agitated, laying on left side. 03/08/17 13:32 Calling [facility] on [place] to get report as patient is afebrile. 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 He was lethargic, diaphoretic, moist cough, suctioned for thick mucus. 03/08/17 14:18 DDX IBNLT sepsis from UTI/PNA/cholangitis or other infection, ACS, etc. Ordered is sepsis panel. 03/08/17 17:12 Workup nondirective, no leukocytosis or lactic acidosis. No significant findings on CXR though suboptimal study. Spoke with Donna Bliss regarding obs admission. Patient admitted to Med/Surg Obs for further care and workup. *DC/Admit/Observation/Transfer Diagnosis at time of Disposition: Respiratory difficulty, Mucus plugging of bronchi, Generalized weakness - Discharge Dispostion Condition at time of disposition: Guarded Admit: Yes Decision to Admit order Date/Time: Decision to Admit Order Category Date Time Status Decision to Admit to Hospital Routine Admission 03/08/17 17:10 Ordered - Referrals Referrals: Raymond Pal MD [Primary Care Provider] - - Patient Instructions - Post Discharge Activity
[2017-03-08] MEDS ORDERED: SODIUM CHLORIDE 0.9% 1000 ML INFUS.BAG IV PRN (13:37)
[2017-03-08 14:24] LABS: VENOUS PH 7.44 (7.32-7.42)
[2017-03-08 14:27] LABS: BASOPHIL 0.6 % (0-2.0); EOSINOPHIL 2.6 % (0-4.5); MCH 32.8 pg (25.7-33.7); MCHC 33.7 g/dl (32.0-35.9); MEAN CELL VOLUME 97.3 fl (80-96); MEAN PLT VOLUME 8.9 fl (7.5-11.1); NEUTROPHILS 70.8 % (42.8-82.8); PLATELET COUNT 373 K/MM3 (134-434); RDW 15.9 % (11.9-15.9); WHITE BLOOD COUNT 9.1 K/mm3 (4.0-10.0)
[2017-03-08 15:07] LABS: INR 1.2 (0.82-1.09); PROTHROMBIN TIME (PATIENT) 13.6 SEC (9.98-11.88)
[2017-03-08 15:09] LABS: ACTIVATED PTT 22.7 SECONDS (26.9-34.4)
[2017-03-08 15:30] LABS: ALBUMIN 2.4 g/dl (3.4-5.0); ALK PHOS 183 U/L (45-117); ANION GAP 6 (8-16); BILIRUBIN,TOTAL 0.6 mg/dL (0.2-1.0); CALCIUM 8.1 mg/dL (8.5-10.1); CO2 30 mmol/L (21-32); CREATININE 1.3 mg/dL (0.7-1.3); GLUCOSE,RANDOM 98 mg/dL (74-106); SGOT/AST 18 U/L (15-37); SGPT/ALT 32 U/L (12-78); TOT PROT 7.5 g/dl (6.4-8.2)
--- NOTE | 2017-03-08 15:31 | PDOC ---
Attending Attestation - Resident Resident Name: JuárezTherese - ED Attending Attestation I have performed the following: I have examined & evaluated the patient, The case was reviewed & discussed with the resident, I agree w/resident's findings & plan, Exceptions are as noted - HPI HPI: 03/08/17 15:28 86y/o M from half-way with episode of respiratory distress/hypoxia, sent for further evaluation. improved after suctioning. - Physicial Exam PE: 03/08/17 15:28 low grade temp 99.5, O2 sat on room air wnl in ED alert, initially combative coarse BS but no wheeze or focally decreased BS - Medical Decision Making 03/08/17 15:29 Patient seen and evaluated with the resident. I agree with the overall evaluation, assessment, and management with the following summary of visit: 86-year-old male with episode episode of acute hypoxic respiratory distress at half-way, now improved after suctioning. Sepsis workup EKG Chest x-ray, oxygen Admission Heart Score/ECG Review #1 ECG reviewed & interpreted by me at: 13:18 General ECG Interpretation: Sinus Rhythm (trigeminy with PVC), Normal Rate (75) , Normal Intervals (qtc 455, LVH), No acute ischemic changes
--- NOTE | 2017-03-08 16:08 | EKG ---
Test Reason : Blood Pressure : / mmHG Vent. Rate : 075 BPM Atrial Rate : 075 BPM P-R Int : 162 ms QRS Dur : 082 ms QT Int : 408 ms P-R-T Axes : 045 -50 017 degrees QTc Int : 455 ms SINUS RHYTHM WITH FREQUENT PREMATURE VENTRICULAR COMPLEXES LEFT AXIS DEVIATION MINIMAL VOLTAGE CRITERIA FOR LVH, MAY BE NORMAL VARIANT INFERIOR INFARCT , AGE UNDETERMINED ABNORMAL ECG WHEN COMPARED WITH ECG OF 23-FEB-2017 20:53, NO SIGNIFICANT CHANGE WAS FOUND Confirmed by CHRISTIAN STALEY MD ([id number]) on 03/08/2017 4:08:06 PM Referred By: Confirmed By:CHRISTIAN STALEY MD
[2017-03-08 16:43] LABS: URINE APPEARANCE CLEAR; URINE BILIRUBIN NEGATIVE (NEGATIVE); URINE BLOOD NEGATIVE (NEGATIVE); URINE COLOR YELLOW; URINE GLUCOSE (UA) NEGATIVE (NEGATIVE); URINE KETONE NEGATIVE (NEGATIVE); URINE NITRITE NEGATIVE (NEGATIVE); URINE PROTEIN NEGATIVE (NEGATIVE)
--- NOTE | 2017-03-08 17:09 | HP ---
CHIEF COMPLAINT: PCP: HISTORY OF PRESENT ILLNESS: 86 year-old male, resident of [facility], with a PMH significant for HTN, osteoarthritis, dementia, bipolar disorder, and depression. Hospitalized at [facility] from 02/01/17-03/03/17 for sepsis and respiratory failure secondary to ascending cholangitis, choledocholelithiasis, pancreatitis and JUAN J, s/p G tube. Was sent to the ED by [facility] for cough and secretions requiring suctioning and which reportedly led to a period of desaturation. Patient is nonverbal and cannot give a history. ER course was notable for: (1) BP 147/81, p 116 (2) CXR: unremarkable (3) Sat 99% 2L NC Recent Travel: No PAST MEDICAL HISTORY: Hypertension Osteoarthritis Dementia Bipolar disorder Depression Ascending cholangitis Choledocholelithiasis Pancreatitis JUAN J PAST SURGICAL HISTORY: Percutaneous cholecystostomy tube 02/02/17 G-tube 03/02/17 Social History: Smoking: former, quit 30 years ago Alcohol: no Drugs: no Family History: Allergies No Known Allergies Allergy (Unverified 03/08/17 13:11) HOME MEDICATIONS: Home Medications Medication Instructions Recorded Sennosides [Senna] 8.6 mg GT HS 02/01/17 Ascorbate Calcium [Vitamin C] 500 mg PEG DAILY #0 syr 03/03/17 Cyanocobalamin [Vitamin B12 -] 1,000 mcg PEG DAILY #0 syr 03/03/17 Metoprolol Tartrate [Lopressor -] 50 mg GT BID #60 tablet 03/03/17 Pantoprazole Suspension [Protonix 40 mg PEG DAILY #30 packet 03/03/17 Packets For Oral Suspension -] Acetaminophen [Tylenol -] 500 mg PO QSHIFT 03/08/17 Hypromellose 0.5% Opth Soln 1 drop GT DAILY 03/08/17 [Artificial Tears] Lactobacillus Acidophilus 1 each GT DAILY 03/08/17 [Acidophilus] Levofloxacin [Levaquin] 500 mg GT DAILY 03/08/17 Polyvinyl Alcohol [Artificial 1 drop GT HS 03/08/17 Tears] Ranitidine Oral Solution [Zantac] 15 mg GT DAILY 03/08/17 REVIEW OF SYSTEMS Unable to obtain, patient is nonverbal PHYSICAL EXAMINATION Vital Signs Temperature 98.9 F 03/08/17 20:32 Pulse Rate 90 12/04/17 20:32 Respiratory Rate 19 03/08/17 20:32 Blood Pressure 146/86 03/08/17 20:32 O2 Sat by Pulse Oximetry (%) 99 03/08/17 20:32 GENERAL: Awake. Does not open eyes. Does not follow commands. Frequent low- pitch vocalizing sounds, no words. HEAD: Normal with no signs of trauma. EYES: Icteric sclera; EOM not able to assess LUNGS: Poor inspiratory effort HEART: Regular rate and rhythm, normal S1 and S2 without murmur, rub or gallop. ABDOMEN: Soft, nontender, not distended, normoactive bowel sounds, no guarding, no rebound, no masses. G tube clamped; CARMELITA drain dark green/black fluid. MUSCULOSKELETAL: All extremities contracted. UPPER EXTREMITIES: 2+ pulses, warm, well-perfused. No cyanosis. +clubbing. No peripheral edema. LOWER EXTREMITIES: 2+ pulses, warm, well-perfused. No calf tenderness. No peripheral edema. Laboratory Results - last 24 hr 03/08/17 03/08/17 03/08/17 14:00 14:00 14:00 WBC 9.1 RBC 3.54 L Hgb 11.6 L Hct 34.4 L MCV 97.3 H MCH 32.8 MCHC 33.7 RDW 15.9 Plt Count 373 MPV 8.9 Neutrophils % 70.8 Lymphocytes % 17.9 Monocytes % 8.1 Eosinophils % 2.6 Basophils % 0.6 PT with INR 13.60 H INR 1.20 H PTT (Actin FS) 22.7 L VBG pH 7.44 H POC VBG pCO2 46.8 POC VBG pO2 58.3 H D Mixed VBG HCO3 31.0 H Sodium Potassium Chloride Carbon Dioxide Anion Gap BUN Creatinine Creat Clearance w eGFR Random Glucose Lactic Acid Calcium Total Bilirubin AST ALT Alkaline Phosphatase Creatine Kinase Troponin I Total Protein Albumin Urine Color Urine Appearance Urine pH Ur Specific Willow Urine Protein Urine Glucose (UA) Urine Ketones Urine Blood Urine Nitrite Urine Bilirubin Urine Urobilinogen 03/08/17 03/08/17 03/08/17 14:00 14:00 14:50 WBC RBC Hgb Hct MCV MCH MCHC RDW Plt Count MPV Neutrophils % Lymphocytes % Monocytes % Eosinophils % Basophils % PT with INR INR PTT (Actin FS) VBG pH POC VBG pCO2 POC VBG pO2 Mixed VBG HCO3 Sodium Cancelled 143 Potassium Cancelled 4.8 Chloride Cancelled 107 Carbon Dioxide Cancelled 30 Anion Gap Cancelled 6 L BUN Cancelled 63 H Creatinine Cancelled 1.3 D Creat Clearance w eGFR Cancelled 52.22 Random Glucose Cancelled 98 D Lactic Acid 1.6 Calcium Cancelled 8.1 L Total Bilirubin Cancelled 0.6 D AST Cancelled 18 ALT Cancelled 32 Alkaline Phosphatase Cancelled 183 H Creatine Kinase Cancelled Troponin I Cancelled Total Protein Cancelled 7.5 Albumin Cancelled 2.4 L Urine Color Urine Appearance Urine pH Ur Specific Willow Urine Protein Urine Glucose (UA) Urine Ketones Urine Blood Urine Nitrite Urine Bilirubin Urine Urobilinogen 03/08/17 15:03 WBC RBC Hgb Hct MCV MCH MCHC RDW Plt Count MPV Neutrophils % Lymphocytes % Monocytes % Eosinophils % Basophils % PT with INR INR PTT (Actin FS) VBG pH POC VBG pCO2 POC VBG pO2 Mixed VBG HCO3 Sodium Potassium Chloride Carbon Dioxide Anion Gap BUN Creatinine Creat Clearance w eGFR Random Glucose Lactic Acid Calcium Total Bilirubin AST ALT Alkaline Phosphatase Creatine Kinase Troponin I Total Protein Albumin Urine Color Yellow Urine Appearance Clear Urine pH 6.0 D Ur Specific Willow 1.020 Urine Protein Negative Urine Glucose (UA) Negative Urine Ketones Negative Urine Blood Negative Urine Nitrite Negative Urine Bilirubin Negative Urine Urobilinogen 2.0 ASSESSMENT/PLAN 86 year-old male with a PMH significant for HTN, osteoarthritis, dementia, bipolar disorder, and depression. Recent admission 02/01/17-03/03/17 for sepsis and respiratory failure secondary to ascending cholangitis, choledocholelithiasis, pancreatitis and JUAN J, s/p G tube s/p CARMELITA drain. Placed on observation for a reported episode of coughing and oxygen desaturation while at long term. Oxygen desaturation --unclear how severe or for how long episode was in NH --O2 sats 98-100% in ED --CXR unremarkable; repeat in am --several phone calls to Dr. Lai over the weekend from nursing staff at [facility] about tube feed residuals and abdominal distension; hold tube feeds and G-tube medication administration for now as concern for aspiration event(s) Ascending cholangitis Choledocholelithiasis Pancreatitis --afebrile, no leukocytosis --continue levofloxacin IV 500mg daily which patient has been on --track CARMELITA drain output Hypertension --metoprolol 5mg q6h PRN Osteoarthritis --no acute issues Dementia Bipolar disorder Depression --patient was discharged on 03/03 on Zyprexa and Lexapro --need to verify meds with [place] DVT prophylaxis: subq heparin Dispo: requires continued observation. Visit type - Emergency Visit Emergency Visit: Yes ED Registration Date: 03/08/17 Care time: The patient presented to the Emergency Department on the above date and was hospitalized for further evaluation of their emergent condition. - New Patient This patient is new to me today: Yes Date on this admission: 03/08/17 - Critical Care Critical Care patient: No
[2017-03-08 20:35] LABS: CPK 50 IU/L (39-308)
[2017-03-08 20:40] LABS: TROPONIN I < 0.02 ng/ml (0.00-0.05)
[2017-03-08] MEDS ORDERED: METOPROLOL TARTRATE 5 MG/5 ML VIAL IVPUSH PRN (21:18)
[2017-03-08] MEDS ORDERED: DEXTROSE 5%-0.45% SALINE 1,000 ML IV SCH (21:30)
[2017-03-08 21:43] LABS: URINE LEUK ESTERASE Negative (NEGATIVE)
[2017-03-08] MEDS ORDERED: ARTIFICIAL TEARS (POLYVINYL ALCOHOL 1.4%) OPTH DROPS OU SCH (22:00)
[2017-03-08] MEDS: METOPROLOL TARTRATE 50 MG TABLET (FP) PO SCH (22:21)
[2017-03-08 23:39] VITALS: BMI 19.1
[2017-03-09 10:49] LABS: MCH 32.5 pg (25.7-33.7); MCHC 33.1 g/dl (32.0-35.9); MEAN CELL VOLUME 98.2 fl (80-96); MEAN PLT VOLUME 8.9 fl (7.5-11.1); PLATELET COUNT 316 K/MM3 (134-434); RDW 15.6 % (11.9-15.9); WHITE BLOOD COUNT 9.2 K/mm3 (4.0-10.0)
[2017-03-09] MEDS: METOPROLOL TARTRATE 50 MG TABLET (FP) PO SCH (10:51)
--- NOTE | 2017-03-09 11:04 | DS ---
Physical Examination Vital Signs: Vital Signs Temperature 97.7 F 03/09/17 05:32 Pulse Rate 78 03/09/17 05:32 Respiratory Rate 20 03/09/17 05:32 Blood Pressure 128/62 03/09/17 05:32 O2 Sat by Pulse Oximetry (%) 98 03/09/17 01:10 Labs: CBC, BMP 03/09/17 10:10 03/08/17 14:50 Discharge Summary Reason For Visit: RESPIRATORY DISTRESS; MUCOID IMPACTION OF BRONCH Current Active Problems JUAN J (acute kidney injury) (Acute) Generalized weakness (Acute) Mucus plugging of bronchi (Acute) Respiratory difficulty (Acute) Condition: Stable - Instructions Diet, Activity, Other Instructions: Please return to the ED with new, persistent, or worsening symptoms. Please resume tub feeds upon return to [facility]: Nepro 30ml/hr. Advance 10 ml q8hrs as tolerated until reach goal 50ml/hr. Water flush 40ml/hr (1200ml Nepro daily will provide 2160 [place], 97 g protein, 872 ml free water + 960ml flush= 1832ml total free water) Referrals: Raymond Pal MD [Primary Care Provider] - 1 Week Disposition: RESIDENTIAL FACILITY - Home Medications Comprehensive Discharge Medication List: Ambulatory Orders Sennosides [Senna] 8.6 mg GT HS 02/01/17 Ascorbate Calcium [Vitamin C] 500 mg PEG DAILY #0 syr 03/03/17 Cyanocobalamin [Vitamin B12 -] 1,000 mcg PEG DAILY #0 syr 03/03/17 Pantoprazole Suspension [Protonix Packets For Oral Suspension -] 40 mg PEG DAILY #30 packet 03/03/17 Acetaminophen [Tylenol .Extra-Strength -] 500 mg PO QSHIFT 03/08/17 Hypromellose 0.5% Opth Soln [Artificial Tears] 1 drop GT DAILY 03/08/17 Lactobacillus Acidophilus [Acidophilus] 1 each GT DAILY 03/08/17 Polyvinyl Alcohol [Artificial Tears] 1 drop GT HS 03/08/17 Ranitidine Oral Solution [Zantac Oral Solution -] 15 mg GT DAILY 03/08/17 Metoprolol Tartrate [Lopressor -] 75 mg PO BID tablet 03/09/17
[2017-03-09 14:49] VITALS: BP 144/63; PULSE 85; TEMP 98.2
== END 2017-03-09 17:39 ==
LOC: SUATTDRO 12:40 → JER 12:40 → JERBED 17:10 → J8W 21:31
PROVIDERS: ADMIT Internal Medicine; ATTEND Registered Nurse
PROC: 3E033GC Introduction of Other Therapeutic Substance into Peripheral Vein, Percutaneous Approach (ICD-10-PCS; principal; 2017-03-08)
DX: J98.09 Other diseases of bronchus, not elsewhere classified (principal); I10 Essential (primary) hypertension; F03.91 Unspecified dementia, unspecified severity, with behavioral disturbance; F31.9 Bipolar disorder, unspecified; M19.90 Unspecified osteoarthritis, unspecified site; K85.90 Acute pancreatitis without necrosis or infection, unspecified; K80.51 Calculus of bile duct without cholangitis or cholecystitis with obstruction; Z93.1 Gastrostomy status; N17.9 Acute kidney failure, unspecified
CPT/HCPCS: 36415; 71010-TC; 80053; 81003; 82550; 82803; 83605; 84484; 85025; 85027; 85610; 85730; 86850; 86900; 86901; 87040; 87086; 93005; 93010; 99284-25; G0378

== ENCOUNTER 2017-03-10 21:42 | Inpatient (IN) | payer OTHER ==
[2017-03-10 22:48] LABS: BASO % 0.2 % (0-2.0); EOS % 0.2 % (0-4.5); MCH 32.7 pg (25.7-33.7); MCHC 32.9 g/dl (32.0-35.9); MEAN CELL VOLUME 99.4 fl (80-96); MEAN PLT VOLUME 9.1 fl (7.5-11.1); NEUT % 87.6 % (42.8-82.8); PLATELET COUNT 415 K/MM3 (134-434); RDW 15.9 % (11.9-15.9); WHITE BLOOD COUNT 16.3 K/mm3 (4.0-10.0)
[2017-03-10 23:07] LABS: ALBUMIN 2.8 g/dl (3.4-5.0); ANION GAP 11 (8-16); CALCIUM 9.2 mg/dL (8.5-10.1); CO2 28 mmol/L (21-32); CREATININE 1.7 mg/dL (0.7-1.3); GLUCOSE,RANDOM 135 mg/dL (74-106); SGOT/AST 20 U/L (15-37); SGPT/ALT 30 U/L (12-78); TOT PROT 8.1 g/dl (6.4-8.2)
[2017-03-10] MEDS ORDERED: LEVOFLOXACIN 750 MG IVPB 750 MG/150 ML BAG IVPB ONE ×2 (23:08→23:23)
[2017-03-10 23:09] LABS: ALK PHOS 214 U/L (45-117); CPK 63 IU/L (39-308); TROPONIN I < 0.02 ng/ml (0.00-0.05)
[2017-03-10] MEDS ORDERED: AMPICILLIN NA/SULBACTAM NA 1.5 GM in SODIUM CHLORIDE 100 ML IVPB ONE (23:12)
[2017-03-10 23:22] LABS: INR 1.31 (0.82-1.09); PROTHROMBIN TIME (PATIENT) 14.8 SEC (9.98-11.88)
[2017-03-10 23:24] LABS: ACTIVATED PTT 28.2 SECONDS (26.9-34.4)
[2017-03-10] MEDS ORDERED: CALCIUM GLUCONATE 10% - 1,000 MG/10 ML VIAL IVPUSH ONE (23:24)
[2017-03-10] MEDS ORDERED: ACETAMINOPHEN 1000 MG/100 ML VIAL (NON FORMULARY) IVPB ONE (23:25)
[2017-03-10] MEDS ORDERED: SODIUM POLYSTYRENE SULFONATE 15 GM/60 ML BOTTLE PO ONE (23:26)
[2017-03-10] MEDS ORDERED: INSULIN REGULAR HUMAN 100 UNITS/ML *VIAL IVPUSH ONE (23:29)
[2017-03-10] MEDS ORDERED: ALBUTEROL SO4 2.5/IPRATROPIUM 0.5 INH SOL 3 ML VIAL.NEB. NEB ONE (23:30)
[2017-03-10] MEDS ORDERED: DEXTROSE 50%-WATER - 25 GM/50 ML VIAL IVPUSH ONE (23:30)
[2017-03-10] MEDS ORDERED: ACETAMINOPHEN INJECTION 100 ML IVPB ONE (23:30)
[2017-03-10] MEDS ORDERED: SODIUM POLYSTYRENE SULFONATE 15 GM/60 ML BOTTLE ONE (23:30)
[2017-03-10] MEDS ORDERED: CALCIUM GLUCONATE 10% - 1,000 MG/10 ML VIAL ONE (23:30)
[2017-03-10] MEDS ORDERED: SODIUM BICARBONATE 8.4% 50 MEQ/50 ML DISP.SYRIN IVPUSH ONE (23:32)
--- NOTE | 2017-03-10 23:51 | PDOC ---
History of Present Illness - General Chief Complaint: Shortness of Breath Stated Complaint: LOW OXYGEN LEVEL Time Seen by Provider: 03/10/17 22:14 - History of Present Illness Initial Comments: 03/10/17 23:50 CHIEF COMPLAINT: aspiration pneumonia HISTORY OF PRESENT ILLNESS: 86 yo M with PMH significant for HTN, osteoarthritis , dementia, bipolar disorder, and depression sent to ED from [facility] for aspiration pneumonia. Patient was discharged yesterday from this hospital after being admitted for SOB and hypoxia. Patient was also had a recent month long stay for sepsis and respiratory failure secondary to ascending cholangitis, choledocholelithiasis, pancreatitis and JUAN J, s/p G tube. Patient is nonverbal and cannot give a history. PAST MEDICAL HISTORY: as per HPI FAMILY HISTORY: Denies SOCIAL HISTORY: Lives at [facility]. SURGICAL HISTORY: G-tube placement ALLERGIES: No known drug allergies REVIEW OF SYSTEMS - unable to perform, patient non-verbal PHYSICAL EXAM General Appearance: Patient contracted with agonal breathing. HEENT: EOMI, PERRLA. Neck: Supple. Trachea midline. No tenderness, rigidity, carotid bruit, stridor , lymphadenopathy, or thyromegaly. Respiratory/Chest: Diffuse wheezing, decreased breath sounds to b/l lungs. Cardiovascular: RRR. S1, S2. Gastrointestinal/Abdominal: G-tube. CARMELITA drain to RUQ. Abdomen soft, non- distended. No tenderness or rebound tenderness. No organomegaly, pulsatile mass , guarding, hernia, hepatomegaly, splenomegaly.. Musculoskeletal/Extremities: Normal inspection. FROM of all extremities, normal capillary refill. Pelvis Stable. No CVA tenderness. No tenderness to extremities, pedal edema, swelling, erythema or deformity. Integumentary: Appropriate color, dry, warm. 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 Fully oriented, alert. Appropriate mood/affect. Motor strength 5/5. No appreciable EOM palsy, facial droop or sensory deficit. 03/11/17 00:24 Past History - Past Medical History Allergies/Adverse Reactions: Allergies Allergy/AdvReac Type Severity Reaction Status Date / Time No Known Allergies Allergy Unverified 03/10/17 21:46 Home Medications: Ambulatory Orders Sennosides [Senna] 8.6 mg GT HS 02/01/17 Ascorbate Calcium [Vitamin C] 500 mg PEG DAILY #0 syr 03/03/17 Cyanocobalamin [Vitamin B12 -] 1,000 mcg PEG DAILY #0 syr 03/03/17 Pantoprazole Suspension [Protonix Packets For Oral Suspension -] 40 mg PEG DAILY #30 packet 03/03/17 Acetaminophen [Tylenol .Extra-Strength -] 500 mg PO QSHIFT 03/08/17 Hypromellose 0.5% Opth Soln [Artificial Tears] 1 drop GT DAILY 03/08/17 Lactobacillus Acidophilus [Acidophilus] 1 each GT DAILY 03/08/17 Polyvinyl Alcohol [Artificial Tears] 1 drop GT HS 03/08/17 Ranitidine Oral Solution [Zantac Oral Solution -] 15 mg GT DAILY 03/08/17 Metoprolol Tartrate [Lopressor -] 75 mg PO BID tablet 03/09/17 Dementia: Yes (Alzheimers) GI Disorders: Yes (cholecystitis, ERCP w/stone extraction 2014) HTN: Yes Psychiatric Problems: Yes Seizures: Yes (depression,pshycosis (dementia)) - Suicide/Smoking/Psychosocial Hx Smoking History: Unknown if ever smoked Have you smoked in the past 12 months: No If you are a former smoker, when did you quit?: 30 YRS AGO - 1-2ppd x 20-30 yrs Information on smoking cessation initiated: No Hx Alcohol Use: No Drug/Substance Use Hx: No Substance Use Type: None *Physical Exam - Vital Signs Last Vital Signs Temp Pulse Resp BP Pulse Ox 100.8 F H 95 H 24 142/98 98 03/10/17 21:46 03/10/17 21:46 03/10/17 21:46 03/10/17 21:46 03/10/17 21:46 ED Treatment Course - LABORATORY CBC & Chemistry Diagram: 03/10/17 22:40 03/10/17 22:40 - ADDITIONAL ORDERS Additional order review: Laboratory Results 03/10/17 03/10/17 03/10/17 22:40 22:40 22:40 PT with INR 14.80 H INR 1.31 H PTT (Actin FS) 28.2 Sodium 149 H Potassium 6.1 H* D Chloride 110 H Carbon Dioxide 28 Anion Gap 11 BUN 51 H Creatinine 1.7 H D Creat Clearance w eGFR 38.32 Random Glucose 135 H D Lactic Acid 7.2 H* Calcium 9.2 Total Bilirubin 1.0 D AST 20 ALT 30 Alkaline Phosphatase 214 H Creatine Kinase 63 Troponin I < 0.02 Total Protein 8.1 Albumin 2.8 L 03/10/17 22:40 RBC 3.58 L MCV 99.4 H MCHC 32.9 RDW 15.9 MPV 9.1 Neutrophils % 87.6 H D Lymphocytes % 7.6 L D Monocytes % 4.4 Eosinophils % 0.2 D Basophils % 0.2 - RADIOLOGY Radiology Studies Ordered: Category Date Time Status CHEST X-RAY PORTABLE* [RAD] Stat Radiology 03/10/17 22:14 Ordered Medical Decision Making - Medical Decision Making 03/11/17 00:17 86 yo M with PMH significant for HTN, osteoarthritis, dementia, bipolar disorder , and depression sent to ED from [facility] for aspiration pneumonia. VS remarkable for temp 100.8F, HR 95. Sepsis workup ordered. Laboratory Tests 03/10/17 03/10/17 03/10/17 22:40 22:40 22:40 WBC 16.3 H D Neutrophils % 87.6 H D PT with INR 14.80 H INR 1.31 H Sodium 149 H Potassium 6.1 H* D BUN 51 H Creatinine 1.7 H D Random Glucose 135 H D Lactic Acid 03/10/17 22:40 WBC Neutrophils % PT with INR INR Sodium Potassium BUN Creatinine Random Glucose Lactic Acid 7.2 H* -1g gabriel gluc -10 mg insulin, D50, 50 mEq bicarb -Unasyn -Tylenol IV -Kayexalate Will admit to hospitalist. *DC/Admit/Observation/Transfer Diagnosis at time of Disposition: Aspiration pneumonia, Hyperkalemia, Sepsis - Discharge Dispostion Admit: Yes - Referrals - Patient Instructions - Post Discharge Activity
[2017-03-11] MEDS ORDERED: DEXTROSE 50%-WATER 25 GM/50 ML DISP.SYRIN ONE (00:28)
[2017-03-11] MEDS ORDERED: SODIUM BICARBONATE 8.4% - 50 ML ONE (00:28)
[2017-03-11] MEDS ORDERED: INSULIN REGULAR HUMAN 100 UNITS/ML *VIAL ONE (00:29)
[2017-03-11] MEDS ORDERED: VANCOMYCIN 1 GRAM (PRE-DOCKED) 1,000 MG/250 ML BAG IVPB ONE ×2 (00:41→00:59)
[2017-03-11 00:47] LABS: VENOUS PH 7.46 (7.32-7.42)
[2017-03-11 00:48] LABS: VENOUS BLOOD GAS HCO3 31.8 meq/L (19-25)
--- NOTE | 2017-03-11 01:46 | HP ---
CHIEF COMPLAINT: aspiration PNA PCP: [facility] HISTORY OF PRESENT ILLNESS: This is an 86 year old male who was sent over from the [facility] for aspiration pneumonia. Pt was admitted from 03/09-03/10 s/p episode of desaturation at the [facility] but he returned today with fever and cough. Pt is mostly nonverbal and reacts to noxious stimuli. ROS obtained from [place] and ED charts. He was also recently admitted here from 02/01-03/04 for acute cholangitis and respiratory failure. ER course was notable for: (1) WBC 16.3, Lactic acid 7.2 (2) Potassium 6.1, given kayexalate, bicarb and calcium (3) BUN 51/Cr 1.7 Recent Travel: none known PAST MEDICAL HISTORY: Hypertension Osteoarthritis Dementia Bipolar disorder Depression Ascending cholangitis Choledocholelithiasis Pancreatitis JUAN J PAST SURGICAL HISTORY: Percutaneous cholecystostomy tube 02/02/17 G-tube 03/02/17 Social History: Smoking: former, quit 30+ years ago Alcohol: none known Drugs: none known Allergies No Known Allergies Allergy (Unverified 03/10/17 21:46) HOME MEDICATIONS: 3 Medication Instructions Recorded Sennosides [Senna] 8.6 mg GT HS 02/01/17 Ascorbate Calcium [Vitamin C] 500 mg PEG DAILY #0 syr 03/03/17 Cyanocobalamin [Vitamin B12 -] 1,000 mcg PEG DAILY #0 syr 03/03/17 Pantoprazole Suspension [Protonix 40 mg PEG DAILY #30 packet 03/03/17 Packets For Oral Suspension -] Acetaminophen [Tylenol 500 mg PO QSHIFT 03/08/17 .Extra-Strength -] Hypromellose 0.5% Opth Soln 1 drop GT DAILY 03/08/17 [Artificial Tears] Lactobacillus Acidophilus 1 each GT DAILY 03/08/17 [Acidophilus] Polyvinyl Alcohol [Artificial 1 drop GT HS 03/08/17 Tears] Ranitidine Oral Solution [Zantac 15 mg GT DAILY 03/08/17 Oral Solution -] Metoprolol Tartrate [Lopressor -] 75 mg PO BID tablet 03/09/17 REVIEW OF SYSTEMS CONSTITUTIONAL: Present: fever Absent: chills, diaphoresis, generalized weakness, malaise, loss of appetite, weight change HEENT: Absent: rhinorrhea, nasal congestion, throat pain, throat swelling, difficulty swallowing, mouth swelling, ear pain, eye pain, visual changes CARDIOVASCULAR: Absent: chest pain, syncope, palpitations, irregular heart rate, lightheadedness , peripheral edema RESPIRATORY: Present: cough, shortness of breath Absent: dyspnea with exertion, orthopnea, wheezing, stridor, hemoptysis GASTROINTESTINAL: Absent: abdominal pain, abdominal distension, nausea, vomiting, diarrhea, constipation, melena, hematochezia GENITOURINARY: Absent: dysuria, frequency, urgency, hesitancy, hematuria, flank pain, genital pain MUSCULOSKELETAL: Absent: myalgia, arthralgia, joint swelling, back pain, neck pain SKIN: Absent: rash, itching, pallor HEMATOLOGIC/IMMUNOLOGIC: Absent: easy bleeding, easy bruising, lymphadenopathy, frequent infections ENDOCRINE: Absent: unexplained weight gain, unexplained weight loss, heat intolerance, cold intolerance NEUROLOGIC: Absent: headache, focal weakness or paresthesias, dizziness, unsteady gait, seizure, mental status changes, bladder or bowel incontinence PSYCHIATRIC: Absent: anxiety, depression, suicidal or homicidal ideation, hallucinations. PHYSICAL EXAMINATION Vital Signs - 24 hr 3 03/10/17 21:46 Temperature 100.8 F H Pulse Rate 95 H Respiratory 24 Rate Blood Pressure 142/98 O2 Sat by Pulse 98 Oximetry (%) GENERAL: Arousable, verbal response to noxious stimuli, in no acute distress. HEAD: Normal with no signs of trauma. EYES: Pupils equal, round and reactive to light, extraocular movements intact, sclera anicteric, conjunctiva clear. No lid lag. EARS, NOSE, THROAT: Ears normal, nares patent, oropharynx clear without exudates. Moist mucous membranes. NECK: Normal range of motion, supple without lymphadenopathy, JVD, or masses. LUNGS: Breath sounds equal, + rhonchi bilat. No wheezes. No accessory muscle use. HEART: Regular rate and rhythm, normal S1 and S2 without murmur, rub or gallop. ABDOMEN: Soft, nontender, not distended, normoactive bowel sounds, no guarding, no rebound, no masses. No hepatomegaly or splenomegaly. + GTube and cholecystostomy tubes in place MUSCULOSKELETAL: Normal range of motion at all joints. No bony deformities or tenderness. No CVA tenderness. UPPER EXTREMITIES: 2+ pulses, warm, well-perfused. No cyanosis. No clubbing. No peripheral edema. LOWER EXTREMITIES: 2+ pulses, warm, well-perfused. No calf tenderness. No peripheral edema. NEUROLOGICAL: Cranial nerves II-XII intact. Normal speech. Normal gait. PSYCHIATRIC: Cooperative. Good eye contact. Appropriate mood and affect. SKIN: Warm, dry, normal turgor, no rashes or lesions noted, normal capillary refill. Laboratory Results - last 24 hr 3 03/10/17 03/10/17 03/10/17 22:40 22:40 22:40 WBC 16.3 H D RBC 3.58 L Hgb 11.7 D Hct 35.6 D MCV 99.4 H MCH 32.7 MCHC 32.9 RDW 15.9 Plt Count 415 D MPV 9.1 Neutrophils % 87.6 H D Lymphocytes % 7.6 L D Monocytes % 4.4 Eosinophils % 0.2 D Basophils % 0.2 PT with INR 14.80 H INR 1.31 H PTT (Actin FS) 28.2 VBG pH Cancelled POC VBG pCO2 Cancelled POC VBG pO2 Cancelled Mixed VBG HCO3 Cancelled Sodium Potassium Chloride Carbon Dioxide Anion Gap BUN Creatinine Creat Clearance w eGFR Random Glucose Lactic Acid Calcium Total Bilirubin AST ALT Alkaline Phosphatase Creatine Kinase Troponin I Total Protein Albumin Blood Type Antibody Screen 3 03/10/17 03/10/17 03/10/17 22:40 22:40 22:40 WBC RBC Hgb Hct MCV MCH MCHC RDW Plt Count MPV Neutrophils % Lymphocytes % Monocytes % Eosinophils % Basophils % PT with INR INR PTT (Actin FS) VBG pH 7.46 H POC VBG pCO2 45.8 POC VBG pO2 15.3 L* D Mixed VBG HCO3 31.8 H Sodium 149 H Potassium 6.1 H* D Chloride 110 H Carbon Dioxide 28 Anion Gap 11 BUN 51 H Creatinine 1.7 H D Creat Clearance w eGFR 38.32 Random Glucose 135 H D Lactic Acid 7.2 H* Calcium 9.2 Total Bilirubin 1.0 D AST 20 ALT 30 Alkaline Phosphatase 214 H Creatine Kinase 63 Troponin I < 0.02 Total Protein 8.1 Albumin 2.8 L Blood Type O NEGATIVE Antibody Screen Negative ECG Sinus tachycardia vent rate 114, QTC 443 T wave flattening in lead 1, TWI aVL, V2 official read pending Radiology Reports CXR Pt rotated, haziness noted R lower lung, no obvious effusions; official read pending ASSESSMENT/PLAN: 86yM with PMH Hypertension, Osteoarthritis, Dementia, Bipolar disorder, Depression, Ascending cholangitis, Choledocholelithiasis, Pancreatitis, JUAN J, Percutaneous cholecystostomy tube 02/02/17, G-tube 03/02/17 presented to the ED from [facility] for suspected aspiration pneumonia. Sepsis due to PNA, HCF acquired - given levaquin and unasyn in ED, added vanco, will give zosyn as well - ID consult - second lactic acid down to 3.0, NS 500cc bolus in progress to be followed by 100cc/hr - repeat labs in am - monitor on tele - pt was started on levaquin via GT 03/08 at [facility] Hyperkalemia - repeat potassium 4.8 - cont to monitor recent cholangitis - cholecystostomy tube in place, will need indefinately as per previous documentation - us abd ordered to r/o new or worsening infection HTN - cont home metoprolol, hold if BP drops dementia - supportive care DVT PPX - heparin BID FEN - NS @ 100cc/hr x 1 liter then reassess - bmp in am - hold feeds for now Dispo: pt currently requires inpatient management of his emergent condition. Pt is a DNR/DNI Visit type - Emergency Visit Emergency Visit: Yes ED Registration Date: 03/10/17 Care time: The patient presented to the Emergency Department on the above date and was hospitalized for further evaluation of their emergent condition. - New Patient This patient is new to me today: Yes Date on this admission: 03/11/17 - Critical Care Critical Care patient: No
[2017-03-11] MEDS ORDERED: SODIUM CHLORIDE 500 ML IV STA (01:47)
--- NOTE | 2017-03-11 01:54 | PDOC ---
*Physical Exam - Vital Signs Last Vital Signs Temp Pulse Resp BP Pulse Ox 100.8 F H 95 H 24 142/98 98 03/10/17 21:46 03/10/17 21:46 03/10/17 21:46 03/10/17 21:46 03/10/17 21:46 ED Treatment Course - LABORATORY CBC & Chemistry Diagram: 03/11/17 07:05 03/11/17 07:05 - ADDITIONAL ORDERS Additional order review: Laboratory Results 03/11/17 03/10/17 03/10/17 00:30 22:40 22:40 PT with INR INR PTT (Actin FS) VBG pH 7.46 H POC VBG pCO2 45.8 POC VBG pO2 15.3 L* D Mixed VBG HCO3 31.8 H Sodium Potassium Chloride Carbon Dioxide Anion Gap BUN Creatinine Creat Clearance w eGFR Random Glucose Lactic Acid 7.2 H* Calcium Total Bilirubin AST ALT Alkaline Phosphatase Creatine Kinase Troponin I Total Protein Albumin Blood Type O NEGATIVE Antibody Screen Negative 03/10/17 03/10/17 03/10/17 22:40 22:40 22:40 PT with INR 14.80 H INR 1.31 H PTT (Actin FS) 28.2 VBG pH Cancelled POC VBG pCO2 Cancelled POC VBG pO2 Cancelled Mixed VBG HCO3 Cancelled Sodium 149 H Potassium 6.1 H* D Chloride 110 H Carbon Dioxide 28 Anion Gap 11 BUN 51 H Creatinine 1.7 H D Creat Clearance w eGFR 38.32 Random Glucose 135 H D Lactic Acid Calcium 9.2 Total Bilirubin 1.0 D AST 20 ALT 30 Alkaline Phosphatase 214 H Creatine Kinase 63 Troponin I < 0.02 Total Protein 8.1 Albumin 2.8 L Blood Type Antibody Screen 03/10/17 22:40 RBC 3.58 L MCV 99.4 H MCHC 32.9 RDW 15.9 MPV 9.1 Neutrophils % 87.6 H D Lymphocytes % 7.6 L D Monocytes % 4.4 Eosinophils % 0.2 D Basophils % 0.2 - Medications Given in the ED: ED Medications Discontinued Medications Generic Name Dose Route Start Last Admin Trade Name Freq PRN Reason Stop Dose Admin Acetaminophen 1,000 mg 03/10/17 23:25 03/11/17 00:23 Ofirmev Injection - IVPB 03/10/17 23:26 1,000 mg ONCE ONE Administration Calcium Gluconate 1,000 mg 03/10/17 23:24 03/11/17 00:23 Calcium Gluconate 10% - IVPUSH 03/10/17 23:25 1,000 mg ONCE ONE Administration Dextrose 25 gm 03/10/17 23:30 03/11/17 00:00 D50w (Vial) - IVPUSH 03/10/17 23:31 25 gm NOW ONE Administration Levofloxacin 750 mg in 150 mls @ 100 mls/hr 03/10/17 23:08 03/10/17 23:30 Levaquin 750 Mg Premixed Ivpb - IVPB 03/11/17 00:37 100 mls/hr ONCE ONE Administration Ampicillin Sodium/Sulbactam 100 mls @ 200 mls/hr 03/10/17 23:12 03/11/17 00: 00 Sodium 1.5 gm/ Sodium Chloride IVPB 03/10/17 23:41 200 mls/hr ONCE ONE Administration Insulin Human Regular 10 units 03/10/17 23:29 03/11/17 00:00 Novolin R Vial *For Ivpush Or Iv Drip Only* IVPUSH 03/10/17 23:30 10 units ONCE ONE Administration Sodium Bicarbonate 50 meq 03/10/17 23:32 03/11/17 00:30 Sodium Bicarbonate 8.4% - IVPUSH 03/10/17 23:33 50 meq ONCE ONE Administration Sodium Polystyrene Sulfonate 15 gm 03/10/17 23:26 03/11/17 00:23 Kayexalate - PO 03/10/17 23:27 15 gm ONCE ONE Administration Vancomycin HCl 1,000 mg 03/11/17 00:41 03/11/17 01:30 Vancomycin (Pre-Docked) IVPB 03/11/17 00:42 1,000 mg ONCE ONE Administration Protocol Medical Decision Making - Medical Decision Making 03/11/17 01:53 agree with care from MIKE Stahl *DC/Admit/Observation/Transfer Diagnosis at time of Disposition: Aspiration pneumonia, Hyperkalemia, Sepsis - Referrals - Patient Instructions - Post Discharge Activity
[2017-03-11 02:39] LABS: ALBUMIN 2.4 g/dl (3.4-5.0); ANION GAP 9 (8-16); CALCIUM 8.4 mg/dL (8.5-10.1); CO2 31 mmol/L (21-32); CREATININE 1.9 mg/dL (0.7-1.3); GLUCOSE,RANDOM 215 mg/dL (74-106); SGOT/AST 18 U/L (15-37); SGPT/ALT 26 U/L (12-78)
[2017-03-11 02:41] LABS: ALK PHOS 177 U/L (45-117); BILIRUBIN,TOTAL 0.9 mg/dL (0.2-1.0); TOT PROT 6.8 g/dl (6.4-8.2)
[2017-03-11] MEDS ORDERED: SODIUM CHLORIDE 1,000 ML IV SCH (03:15)
[2017-03-11] MEDS ORDERED: PIPERACILLIN/TAZOB 3.375 GM 3.375 GM/50 ML BAG IVPB ONE (03:37)
[2017-03-11] MEDS ORDERED: PIPERACIL/TAZOB 3.375 GM 3.375 GM/50 ML PREMIX IVPB ONE (04:00)
[2017-03-11 04:30] LABS: URINE APPEARANCE CLOUDY; URINE BILIRUBIN NEGATIVE (NEGATIVE); URINE BLOOD 2+ (NEGATIVE); URINE COLOR AMBER; URINE GLUCOSE (UA) NEGATIVE (NEGATIVE); URINE KETONE NEGATIVE (NEGATIVE); URINE LEUK ESTERASE NEGATIVE (NEGATIVE); URINE NITRITE NEGATIVE (NEGATIVE); URINE PROTEIN 1+ (NEGATIVE)
[2017-03-11 04:46] LABS: CALCIUM OXALATE CRYSTALS RARE /hpf (NONE SEEN); URINE BACTERIA MODERATE /hpf (NONE SEEN); URINE HYALINE CAST 7 /lpf; URINE MUCUS FEW; URINE RBC 79 /hpf (0-3); URINE WBC 6 /hpf (3-5)
[2017-03-11] MEDS: ALBUTEROL SO4 2.5/IPRATROPIUM 0.5 INH SOL 3 ML VIAL.NEB. NEB SCH ×4 (06:59→23:17)
[2017-03-11 07:32] LABS: BASO % 0.4 % (0-2.0); EOS % 0.1 % (0-4.5); MCH 32.6 pg (25.7-33.7); MCHC 33.1 g/dl (32.0-35.9); MEAN CELL VOLUME 98.6 fl (80-96); MEAN PLT VOLUME 9.2 fl (7.5-11.1); NEUT % 75.5 % (42.8-82.8); PLATELET COUNT 333 K/MM3 (134-434); RDW 15.9 % (11.9-15.9); WHITE BLOOD COUNT 19.5 K/mm3 (4.0-10.0)
[2017-03-11 07:37] VITALS: BMI 27.4
[2017-03-11 08:56] LABS: ANION GAP 12 (8-16); CALCIUM 8.1 mg/dL (8.5-10.1); CO2 26 mmol/L (21-32); CREATININE 1.6 mg/dL (0.7-1.3); MAGNESIUM 2.6 mg/dL (1.8-2.4); PHOSPHOROUS 3.8 mg/dL (2.5-4.9)
[2017-03-11 09:56] LABS: GLUCOSE,RANDOM 30 mg/dL (74-106)
[2017-03-11] MEDS ORDERED: ARTIFICIAL TEARS (POLYVINYL ALCOHOL 1.4%) OPTH DROPS OU SCH (10:00)
[2017-03-11] MEDS ORDERED: CYANOCOBALAMIN 1,000 MCG TABLET (FP) PO SCH (10:00)
[2017-03-11] MEDS ORDERED: RANITIDINE HCL 150 MG TABLET (FP) PO SCH (10:00)
[2017-03-11] MEDS ORDERED: SENNOSIDES 8.6MG TABLET (FP) PO SCH (10:00)
[2017-03-11] MEDS ORDERED: LACTOBACILLUS ACIDOPHILUS 1 EACH TAB (FP) PO SCH (10:00)
[2017-03-11] MEDS ORDERED: METOPROLOL TARTRATE 50 MG TABLET (FP) PO SCH (10:00)
[2017-03-11] MEDS ORDERED: ASCORBIC ACID 500 MG TABLET (FP) PO SCH (10:00)
[2017-03-11] MEDS: HEPARIN NA (PORCINE) 5,000 UNITS/ML 1ML VIAL SQ SCH ×2 (11:27→22:46)
--- NOTE | 2017-03-11 11:35 | EKG ---
Test Reason : Blood Pressure : / mmHG Vent. Rate : 114 BPM Atrial Rate : 114 BPM P-R Int : 140 ms QRS Dur : 080 ms QT Int : 322 ms P-R-T Axes : 053 -63 078 degrees QTc Int : 443 ms POOR DATA QUALITY, INTERPRETATION MAY BE ADVERSELY AFFECTED SINUS TACHYCARDIA LEFT AXIS DEVIATION NONSPECIFIC ST ABNORMALITY ABNORMAL ECG WHEN COMPARED WITH ECG OF 08-MAR-2017 13:18, PREMATURE VENTRICULAR COMPLEXES ARE NO LONGER PRESENT VENT. RATE HAS INCREASED BY 39 BPM CRITERIA FOR INFERIOR INFARCT ARE NO LONGER PRESENT NONSPECIFIC T WAVE ABNORMALITY NO LONGER EVIDENT IN INFERIOR LEADS Confirmed by ADRY MILLER MD ([id number]) on 03/11/2017 11:35:21 AM Referred By: Confirmed By:ADRY MILLER MD
[2017-03-11 12:22] LABS: URINE LEUK ESTERASE Negative (NEGATIVE)
--- NOTE | 2017-03-11 12:42 | CON.GI ---
Consult Consult Specialty:: GI Reason for Consultation:: Attentio to PEG - History of Present Illness History of Present Illness: Chart reviewed. Mr Menezes, know to our service from recent, prolonged admission for cholangitis and failure to thrive. Readmitted with dx of aspiration pneumonia. The patient is non-communicative, not in apparent distress. History from chart. 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) Additional Medical History: macular degeneration (legally blind) - Past Surgical History Past Surgical History: Yes: Upper Endoscopy (with ERCP and stone extraction 2015 [place] (too sick for cholecystectomy)) - Alcohol/Substance Use Hx Alcohol Use: No History of Substance Use: reports: None - Smoking History Smoking history: Unknown if ever smoked Have you smoked in the past 12 months: No If you are a former smoker, when did you quit?: 30 YRS AGO - 1-2ppd x 20-30 yrs - Social History Usual Living Arrangement: [facility] ADL: Support Services Home Medications - Allergies Allergies/Adverse Reactions: Allergies Allergy/AdvReac Type Severity Reaction Status Date / Time No Known Allergies Allergy Verified 03/11/17 02:23 - Home Medications Home Medications: Ambulatory Orders Acetaminophen [Tylenol Extra Strength] 500 mg PO DAILY 03/11/17 Albuterol 2.5/Ipratropium 0.5 [Duoneb -] 1 neb IH QID 03/11/17 Alprazolam [Xanax] 0.25 mg PO Q6H 03/11/17 Ascorbate Calcium [Vitamin C] 500 mg PO DAILY 03/11/17 Cyanocobalamin (Vitamin B-12) [Vitamin B-12] 1,000 mcg PO DAILY 03/11/17 Hypromellose 0.5% Opth Soln [Artificial Tears] 1 drop DAILY 03/11/17 Lactobacillus Acidophilus [Acidophilus] 100 mg PO DAILY 03/11/17 Levofloxacin [Levaquin] 500 mg PO DAILY 03/11/17 Metoprolol Succinate [Toprol Xl -] 25 mg PO BID 03/11/17 Metoprolol Tartrate [Lopressor -] 50 mg PO DAILY 03/11/17 Ranitidine Oral Solution [Zantac] 150 mg GT DAILY 03/11/17 Sennosides [Senna] 8.6 mg PO DAILY 03/11/17 Physical Exam-GI Vital Signs: Vital Signs Temperature 96.8 F L 03/11/17 08:15 Pulse Rate 94 H 03/11/17 10:25 Respiratory Rate 16 03/11/17 10:25 Blood Pressure 126/68 03/11/17 10:25 O2 Sat by Pulse Oximetry (%) 98 03/11/17 05:10 Constitutional: Yes: No Distress, Calm Eyes: Yes: Conjunctiva Clear HENT: Yes: Atraumatic, Other (secreations) Neck: Yes: Supple Cardiovascular: Yes: Regular Rate and Rhythm Respiratory: Yes: Regular, Cough, Other (secreations) Gastrointestinal Inspection: No: Distention ...Auscultate: Yes: Normoactive Bowel Sounds ...Palpate: Yes: Soft, Other (PEG at 4-5, intact, no leak, discharge, erythema. CARMELITA with dark bile, no discharge, erythema.). No: Firm/Rigid, Guarding Neurological: Yes: Oriented (to self) Labs: CBC, BMP 03/11/17 07:05 03/11/17 07:05 INR, PTT INR 1.31 (0.82-1.09) H 03/10/17 22:40 Laboratory Tests 03/10/17 03/10/17 03/10/17 22:40 22:40 22:40 WBC 16.3 H D RBC 3.58 L Hgb 11.7 D Hct 35.6 D MCV 99.4 H MCH 32.7 MCHC 32.9 RDW 15.9 Plt Count 415 D MPV 9.1 Neutrophils % 87.6 H D Lymphocytes % 7.6 L D Monocytes % 4.4 Eosinophils % 0.2 D Basophils % 0.2 PT with INR 14.80 H INR 1.31 H PTT (Actin FS) 28.2 VBG pH Cancelled POC VBG pCO2 Cancelled POC VBG pO2 Cancelled Mixed VBG HCO3 Cancelled Sodium Potassium Chloride Carbon Dioxide Anion Gap BUN Creatinine Creat Clearance w eGFR POC Glucometer Random Glucose Lactic Acid Calcium Phosphorus Magnesium Total Bilirubin AST ALT Alkaline Phosphatase Creatine Kinase Troponin I Total Protein Albumin Urine Color Urine Appearance Urine pH Ur Specific [place] Urine Protein Urine Glucose (UA) Urine Ketones Urine Blood Urine Nitrite Urine Bilirubin Urine Urobilinogen Ur Leukocyte Esterase Urine WBC (Auto) Urine RBC (Auto) Ur Epithelial Cells Calcium Oxalate Crystal Urine Bacteria Hyaline Casts Urine Mucus Blood Type Antibody Screen 03/10/17 03/10/17 03/10/17 22:40 22:40 22:40 WBC RBC Hgb Hct MCV MCH MCHC RDW Plt Count MPV Neutrophils % Lymphocytes % Monocytes % Eosinophils % Basophils % PT with INR INR PTT (Actin FS) VBG pH POC VBG pCO2 POC VBG pO2 Mixed VBG HCO3 Sodium 149 H Potassium 6.1 H* D Chloride 110 H Carbon Dioxide 28 Anion Gap 11 BUN 51 H Creatinine 1.7 H D Creat Clearance w eGFR 38.32 POC Glucometer Random Glucose 135 H D Lactic Acid 7.2 H* Calcium 9.2 Phosphorus Magnesium Total Bilirubin 1.0 D AST 20 ALT 30 Alkaline Phosphatase 214 H Creatine Kinase 63 Troponin I < 0.02 Total Protein 8.1 Albumin 2.8 L Urine Color Urine Appearance Urine pH Ur Specific [place] Urine Protein Urine Glucose (UA) Urine Ketones Urine Blood Urine Nitrite Urine Bilirubin Urine Urobilinogen Ur Leukocyte Esterase Urine WBC (Auto) Urine RBC (Auto) Ur Epithelial Cells Calcium Oxalate Crystal Urine Bacteria Hyaline Casts Urine Mucus Blood Type O NEGATIVE Antibody Screen Negative 03/11/17 03/11/17 03/11/17 00:30 01:50 01:50 WBC RBC Hgb Hct MCV MCH MCHC RDW Plt Count MPV Neutrophils % Lymphocytes % Monocytes % Eosinophils % Basophils % PT with INR INR PTT (Actin FS) VBG pH 7.46 H POC VBG pCO2 45.8 POC VBG pO2 15.3 L* D Mixed VBG HCO3 31.8 H Sodium 148 H Potassium 4.4 D Chloride 108 H Carbon Dioxide 31 Anion Gap 9 BUN 53 H Creatinine 1.9 H Creat Clearance w eGFR 33.70 POC Glucometer Random Glucose 215 H D Lactic Acid 3.0 H* Calcium 8.4 L Phosphorus Magnesium Total Bilirubin 0.9 AST 18 ALT 26 Alkaline Phosphatase 177 H Creatine Kinase Troponin I Total Protein 6.8 Albumin 2.4 L Urine Color Urine Appearance Urine pH Ur Specific [place] Urine Protein Urine Glucose (UA) Urine Ketones Urine Blood Urine Nitrite Urine Bilirubin Urine Urobilinogen Ur Leukocyte Esterase Urine WBC (Auto) Urine RBC (Auto) Ur Epithelial Cells Calcium Oxalate Crystal Urine Bacteria Hyaline Casts Urine Mucus Blood Type Antibody Screen 03/11/17 03/11/17 03/11/17 04:00 07:05 07:05 WBC 19.5 H RBC 3.07 L Hgb 10.0 L D Hct 30.3 L MCV 98.6 H MCH 32.6 MCHC 33.1 RDW 15.9 Plt Count 333 MPV 9.2 Neutrophils % 75.5 Lymphocytes % 16.4 D Monocytes % 7.6 Eosinophils % 0.1 Basophils % 0.4 PT with INR INR PTT (Actin FS) VBG pH POC VBG pCO2 POC VBG pO2 Mixed VBG HCO3 Sodium Potassium Chloride Carbon Dioxide Anion Gap BUN Creatinine Creat Clearance w eGFR POC Glucometer Random Glucose Lactic Acid 2.4 H* Calcium Phosphorus Magnesium Total Bilirubin AST ALT Alkaline Phosphatase Creatine Kinase Troponin I Total Protein Albumin Urine Color Ema Urine Appearance Cloudy Urine pH 5.0 Ur Specific [place] 1.025 Urine Protein 1+ H Urine Glucose (UA) Negative Urine Ketones Negative Urine Blood 2+ H Urine Nitrite Negative Urine Bilirubin Negative Urine Urobilinogen 2.0 Ur Leukocyte Esterase Negative Urine WBC (Auto) 6 Urine RBC (Auto) 79 Ur Epithelial Cells Rare Calcium Oxalate Crystal Rare Urine Bacteria Moderate Hyaline Casts 7 Urine Mucus Few Blood Type Antibody Screen 03/11/17 03/11/17 03/11/17 07:05 09:59 10:33 WBC RBC Hgb Hct MCV MCH MCHC RDW Plt Count MPV Neutrophils % Lymphocytes % Monocytes % Eosinophils % Basophils % PT with INR INR PTT (Actin FS) VBG pH POC VBG pCO2 POC VBG pO2 Mixed VBG HCO3 Sodium 148 H Potassium 4.0 Chloride 110 H Carbon Dioxide 26 Anion Gap 12 BUN 50 H Creatinine 1.6 H Creat Clearance w eGFR POC Glucometer 84 96 Random Glucose 30 L* D Lactic Acid Calcium 8.1 L Phosphorus 3.8 D Magnesium 2.6 H D Total Bilirubin AST ALT Alkaline Phosphatase Creatine Kinase Troponin I Total Protein Albumin Urine Color Urine Appearance Urine pH Ur Specific [place] Urine Protein Urine Glucose (UA) Urine Ketones Urine Blood Urine Nitrite Urine Bilirubin Urine Urobilinogen Ur Leukocyte Esterase Urine WBC (Auto) Urine RBC (Auto) Ur Epithelial Cells Calcium Oxalate Crystal Urine Bacteria Hyaline Casts Urine Mucus Blood Type Antibody Screen Imaging - Results X-ray: Report Reviewed Ultrasound: Report Reviewed Problem List - Problems (1) Aspiration pneumonia Code(s): J69.0 - PNEUMONITIS DUE TO INHALATION OF FOOD AND VOMIT (2) Hyperkalemia Code(s): E87.5 - HYPERKALEMIA (3) Sepsis Code(s): A41.9 - SEPSIS, UNSPECIFIED ORGANISM Assessment/Plan Suspect aspiration PNA. Cannot exclude UTI. R/O c. diff if diarrhea present. Doubt ascending cholangitis. The PEG is intact and can be used for hydration, medications, and nutrition. Will ask nutrition service to evaluate for nutritionally denser, lesser volume formula. Aspiration precautions. Nutrition service consult Abx as per Primary/ID team OK to use PEG as above.
[2017-03-11] MEDS: RANITIDINE HCL 150 MG/10 ML UNIT-DOSE GT SCH (13:20)
[2017-03-11] MEDS: METOPROLOL TARTRATE 50 MG TABLET (FP) GT SCH ×2 (13:39→22:37)
[2017-03-11] MEDS: LACTOBACILLUS ACIDOPHILUS 1 EACH TAB (FP) GT SCH (13:43)
[2017-03-11] MEDS: CYANOCOBALAMIN 1,000 MCG TABLET (FP) GT SCH (13:43)
[2017-03-11] MEDS: ASCORBIC ACID 500 MG/5 ML UNIT DOSE CUP GT SCH (13:43)
[2017-03-11] MEDS: DEXTROSE 5%-NORMAL SALINE 1,000 ML IV SCH (15:30)
[2017-03-11] MEDS ORDERED: PIPERACILLIN/TAZOB 3.375 GM/50 ML PRE-DOCKED IVPB SCH (16:00)
--- NOTE | 2017-03-11 16:04 | CON.ID ---
Consult Reason for Consultation:: Shortness of breath, fever - History of Present Illness History of Present Illness: This is a 86 y.o. male with multiple medical problems including, HTN, OA, dementia, BP disorder, CKD, depression recently discharged after treatment for respiratory failure, sepsis, ascending cholangitis, pancreatitis, choledocolithiasis s/p cholecystostomy drain and GT placement. He returns now due to hypoxemia, wheezing possibly due to aspiration while in NH. In ER noted to have leukocytosis, fever, tachycardia, and elevated lactic acid level. Has been started on IV antibiotics empirically. Today he is arousable with noxious stimuli, remains nonverbal but calm. Currently afebrile and without acute respiratory distress. 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 Cardio/Vascular: Yes: HTN Hepatobiliary: Yes: Cholelithiasis, Cholecystitis (cholecystostomy ), Choledocholithiasis Renal/: Yes: Renal Inusuff Infectious Disease: No: AIDS, C-Diff, Herpes Zoster, HIV, MRSA, STD's, Tuberculosis, VREF, Other Psych: Yes: Depression, Psychosis (features to dementia) Musculoskeletal: No: Bursitis, Chronic low back pain, Hemiparesis, Hemiplegia, Osteoarthritis, Paraplegia, Other Rheumatology: No: Fibromyalgia, Gout, Lupus, Rheumatoid Arthritis, Sarcoidosis, Vasculitis, Other ENT: No: Allergic Rhinitis, Sinusitis, Other Endocrine: No: Howell's Disease, Walworth's Disease, Diabetes Insipidus, Diabetes Mellitus (cholecystostomy ), Hyperparathyroidism, Hyperthyroidism, Hypothyroidism, Osteopenia, SIADH, Other Dermatology: No: Basal Cell, Cellulitis, Eczema, Melanoma, Psoriasis, Squamous Cell, Other Additional Medical History: macular degeneration (legally blind) - Past Surgical History Past Surgical History: Yes: Upper Endoscopy (with ERCP and stone extraction 2015 [place] (too sick for cholecystectomy)) - Alcohol/Substance Use Hx Alcohol Use: No History of Substance Use: reports: None - Smoking History Smoking history: Unknown if ever smoked Have you smoked in the past 12 months: No If you are a former smoker, when did you quit?: 30 YRS AGO - 1-2ppd x 20-30 yrs - Social History Usual Living Arrangement: Long Term ADL: Support Services Home Medications - Allergies Allergies/Adverse Reactions: Allergies Allergy/AdvReac Type Severity Reaction Status Date / Time No Known Allergies Allergy Verified 03/11/17 02:23 - Home Medications Home Medications: Ambulatory Orders Acetaminophen [Tylenol Extra Strength] 500 mg PO DAILY 03/11/17 Albuterol 2.5/Ipratropium 0.5 [Duoneb -] 1 neb IH QID 03/11/17 Alprazolam [Xanax] 0.25 mg PO Q6H 03/11/17 Ascorbate Calcium [Vitamin C] 500 mg PO DAILY 03/11/17 Cyanocobalamin (Vitamin B-12) [Vitamin B-12] 1,000 mcg PO DAILY 03/11/17 Hypromellose 0.5% Opth Soln [Artificial Tears] 1 drop DAILY 03/11/17 Lactobacillus Acidophilus [Acidophilus] 100 mg PO DAILY 03/11/17 Levofloxacin [Levaquin] 500 mg PO DAILY 03/11/17 Metoprolol Succinate [Toprol Xl -] 25 mg PO BID 03/11/17 Metoprolol Tartrate [Lopressor -] 50 mg PO DAILY 03/11/17 Ranitidine Oral Solution [Zantac] 150 mg GT DAILY 03/11/17 Sennosides [Senna] 8.6 mg PO DAILY 03/11/17 Review of Systems Unable to obtain ROS, reason: pt nonverbal Physical Exam Vital Signs: Vital Signs Temperature 97.5 F L 03/11/17 14:00 Pulse Rate 100 H 03/11/17 14:00 Respiratory Rate 16 03/11/17 13:15 Blood Pressure 90/57 03/11/17 14:00 O2 Sat by Pulse Oximetry (%) 98 03/11/17 05:10 Constitutional: Yes: No Distress HENT: Yes: WNL Neck: Yes: Supple Cardiovascular: Yes: Tachycardia Respiratory: Yes: Rhonchi (scattered) Gastrointestinal: Yes: Normal Bowel Sounds, Soft (RUQ drain with bilious fluid) ...Rectal Exam: Yes: Deferred Renal/: Yes: WNL Musculoskeletal: Yes: WNL Extremities: Yes: WNL Integumentary: Yes: WNL Labs: CBC, BMP 03/11/17 07:05 03/11/17 07:05 Laboratory Results - last 24 hr 03/10/17 03/10/17 03/10/17 22:40 22:40 22:40 WBC 16.3 H D RBC 3.58 L Hgb 11.7 D Hct 35.6 D MCV 99.4 H MCH 32.7 MCHC 32.9 RDW 15.9 Plt Count 415 D MPV 9.1 Neutrophils % 87.6 H D Lymphocytes % 7.6 L D Monocytes % 4.4 Eosinophils % 0.2 D Basophils % 0.2 PT with INR 14.80 H INR 1.31 H PTT (Actin FS) 28.2 VBG pH Cancelled POC VBG pCO2 Cancelled POC VBG pO2 Cancelled Mixed VBG HCO3 Cancelled Sodium Potassium Chloride Carbon Dioxide Anion Gap BUN Creatinine Creat Clearance w eGFR POC Glucometer Random Glucose Lactic Acid Calcium Phosphorus Magnesium Total Bilirubin AST ALT Alkaline Phosphatase Creatine Kinase Troponin I Total Protein Albumin Urine Color Urine Appearance Urine pH Ur Specific [place] Urine Protein Urine Glucose (UA) Urine Ketones Urine Blood Urine Nitrite Urine Bilirubin Urine Urobilinogen Ur Leukocyte Esterase Urine WBC (Auto) Urine RBC (Auto) Ur Epithelial Cells Calcium Oxalate Crystal Urine Bacteria Hyaline Casts Urine Mucus Blood Type Antibody Screen 03/10/17 03/10/17 03/10/17 22:40 22:40 22:40 WBC RBC Hgb Hct MCV MCH MCHC RDW Plt Count MPV Neutrophils % Lymphocytes % Monocytes % Eosinophils % Basophils % PT with INR INR PTT (Actin FS) VBG pH POC VBG pCO2 POC VBG pO2 Mixed VBG HCO3 Sodium 149 H Potassium 6.1 H* D Chloride 110 H Carbon Dioxide 28 Anion Gap 11 BUN 51 H Creatinine 1.7 H D Creat Clearance w eGFR 38.32 POC Glucometer Random Glucose 135 H D Lactic Acid 7.2 H* Calcium 9.2 Phosphorus Magnesium Total Bilirubin 1.0 D AST 20 ALT 30 Alkaline Phosphatase 214 H Creatine Kinase 63 Troponin I < 0.02 Total Protein 8.1 Albumin 2.8 L Urine Color Urine Appearance Urine pH Ur Specific [place] Urine Protein Urine Glucose (UA) Urine Ketones Urine Blood Urine Nitrite Urine Bilirubin Urine Urobilinogen Ur Leukocyte Esterase Urine WBC (Auto) Urine RBC (Auto) Ur Epithelial Cells Calcium Oxalate Crystal Urine Bacteria Hyaline Casts Urine Mucus Blood Type O NEGATIVE Antibody Screen Negative 03/11/17 03/11/17 03/11/17 00:30 01:50 01:50 WBC RBC Hgb Hct MCV MCH MCHC RDW Plt Count MPV Neutrophils % Lymphocytes % Monocytes % Eosinophils % Basophils % PT with INR INR PTT (Actin FS) VBG pH 7.46 H POC VBG pCO2 45.8 POC VBG pO2 15.3 L* D Mixed VBG HCO3 31.8 H Sodium 148 H Potassium 4.4 D Chloride 108 H Carbon Dioxide 31 Anion Gap 9 BUN 53 H Creatinine 1.9 H Creat Clearance w eGFR 33.70 POC Glucometer Random Glucose 215 H D Lactic Acid 3.0 H* Calcium 8.4 L Phosphorus Magnesium Total Bilirubin 0.9 AST 18 ALT 26 Alkaline Phosphatase 177 H Creatine Kinase Troponin I Total Protein 6.8 Albumin 2.4 L Urine Color Urine Appearance Urine pH Ur Specific [place] Urine Protein Urine Glucose (UA) Urine Ketones Urine Blood Urine Nitrite Urine Bilirubin Urine Urobilinogen Ur Leukocyte Esterase Urine WBC (Auto) Urine RBC (Auto) Ur Epithelial Cells Calcium Oxalate Crystal Urine Bacteria Hyaline Casts Urine Mucus Blood Type Antibody Screen 03/11/17 03/11/17 03/11/17 04:00 07:05 07:05 WBC 19.5 H RBC 3.07 L Hgb 10.0 L D Hct 30.3 L MCV 98.6 H MCH 32.6 MCHC 33.1 RDW 15.9 Plt Count 333 MPV 9.2 Neutrophils % 75.5 Lymphocytes % 16.4 D Monocytes % 7.6 Eosinophils % 0.1 Basophils % 0.4 PT with INR INR PTT (Actin FS) VBG pH POC VBG pCO2 POC VBG pO2 Mixed VBG HCO3 Sodium Potassium Chloride Carbon Dioxide Anion Gap BUN Creatinine Creat Clearance w eGFR POC Glucometer Random Glucose Lactic Acid 2.4 H* Calcium Phosphorus Magnesium Total Bilirubin AST ALT Alkaline Phosphatase Creatine Kinase Troponin I Total Protein Albumin Urine Color Ema Urine Appearance Cloudy Urine pH 5.0 Ur Specific [place] 1.025 Urine Protein 1+ H Urine Glucose (UA) Negative Urine Ketones Negative Urine Blood 2+ H Urine Nitrite Negative Urine Bilirubin Negative Urine Urobilinogen 2.0 Ur Leukocyte Esterase Negative Urine WBC (Auto) 6 Urine RBC (Auto) 79 Ur Epithelial Cells Rare Calcium Oxalate Crystal Rare Urine Bacteria Moderate Hyaline Casts 7 Urine Mucus Few Blood Type Antibody Screen 03/11/17 03/11/17 03/11/17 07:05 09:59 10:33 WBC RBC Hgb Hct MCV MCH MCHC RDW Plt Count MPV Neutrophils % Lymphocytes % Monocytes % Eosinophils % Basophils % PT with INR INR PTT (Actin FS) VBG pH POC VBG pCO2 POC VBG pO2 Mixed VBG HCO3 Sodium 148 H Potassium 4.0 Chloride 110 H Carbon Dioxide 26 Anion Gap 12 BUN 50 H Creatinine 1.6 H Creat Clearance w eGFR POC Glucometer 84 96 Random Glucose 30 L* D Lactic Acid Calcium 8.1 L Phosphorus 3.8 D Magnesium 2.6 H D Total Bilirubin AST ALT Alkaline Phosphatase Creatine Kinase Troponin I Total Protein Albumin Urine Color Urine Appearance Urine pH Ur Specific [place] Urine Protein Urine Glucose (UA) Urine Ketones Urine Blood Urine Nitrite Urine Bilirubin Urine Urobilinogen Ur Leukocyte Esterase Urine WBC (Auto) Urine RBC (Auto) Ur Epithelial Cells Calcium Oxalate Crystal Urine Bacteria Hyaline Casts Urine Mucus Blood Type Antibody Screen 03/11/17 03/11/17 12:50 13:14 WBC RBC Hgb Hct MCV MCH MCHC RDW Plt Count MPV Neutrophils % Lymphocytes % Monocytes % Eosinophils % Basophils % PT with INR INR PTT (Actin FS) VBG pH POC VBG pCO2 POC VBG pO2 Mixed VBG HCO3 Sodium Potassium Chloride Carbon Dioxide Anion Gap BUN Creatinine Creat Clearance w eGFR POC Glucometer 128 Random Glucose Lactic Acid 2.3 H* Calcium Phosphorus Magnesium Total Bilirubin AST ALT Alkaline Phosphatase Creatine Kinase Troponin I Total Protein Albumin Urine Color Urine Appearance Urine pH Ur Specific [place] Urine Protein Urine Glucose (UA) Urine Ketones Urine Blood Urine Nitrite Urine Bilirubin Urine Urobilinogen Ur Leukocyte Esterase Urine WBC (Auto) Urine RBC (Auto) Ur Epithelial Cells Calcium Oxalate Crystal Urine Bacteria Hyaline Casts Urine Mucus Blood Type Antibody Screen Imaging - Results Chest X-ray: Report Reviewed Problem List - Problems (1) Aspiration pneumonia Code(s): J69.0 - PNEUMONITIS DUE TO INHALATION OF FOOD AND VOMIT (2) Sepsis Code(s): A41.9 - SEPSIS, UNSPECIFIED ORGANISM (3) Dementia with behavioral disturbance Code(s): F03.91 - UNSPECIFIED DEMENTIA WITH BEHAVIORAL DISTURBANCE Qualifiers: Dementia type: unspecified type Qualified Code(s): F03.91 - Unspecified dementia with behavioral disturbance (4) Hypertension Code(s): I10 - ESSENTIAL (PRIMARY) HYPERTENSION Qualifiers: Hypertension type: essential hypertension Qualified Code(s): I10 - Essential (primary) hypertension Assessment/Plan 86 y.o. male recently discharged from the hospital to the [place] after treatment for respiratory failure, choledocholithiasis and pancreatitis s/p cholecystosmy , s/p GT readmitted for hypoxia, wheezing, tachycardia, leukocytosis, fever Possible Aspiration PNA vs HCAP - Zosyn IV and Vancomycin IV renally dosed - continue monitor temps, wbc trend - blood cultures, attempt to collect sputum cultures - repeat cbc, bmp tomorrow cont. monitor vitals closely
[2017-03-11] MEDS: PIPERACILLIN/TAZOB 3.375 GM 3.375 GM in DEXTROSE 5%-WATER - 50 ML IVPB SCH ×2 (17:34→21:23)
[2017-03-11] MEDS ORDERED: VANCOMYCIN 1,250 MG in DEXTROSE 5%-WATER - 250 ML IVPB SCH (21:00)
[2017-03-11] MEDS ORDERED: PT OWN MED DRAWER 7, Y5N ONE (21:08)
[2017-03-11] MEDS: ARTIFICIAL TEARS (POLYVINYL ALCOHOL 1.4%) OPTH DROPS OU SCH (22:36)
[2017-03-11] MEDS: SENNOSIDES 8.8 MG/5 ML BULK BOTTLE GT SCH (22:37)
[2017-03-12] MEDS: PIPERACILLIN/TAZOB 3.375 GM 3.375 GM in DEXTROSE 5%-WATER - 50 ML IVPB SCH ×4 (02:25→21:23)
[2017-03-12] MEDS: ALBUTEROL SO4 2.5/IPRATROPIUM 0.5 INH SOL 3 ML VIAL.NEB. NEB SCH ×3 (06:48→17:05)
[2017-03-12 07:36] LABS: BASO % 0.4 % (0-2.0); EOS % 4.3 % (0-4.5); MCH 33.1 pg (25.7-33.7); MCHC 34.2 g/dl (32.0-35.9); MEAN CELL VOLUME 96.8 fl (80-96); MEAN PLT VOLUME 9.1 fl (7.5-11.1); NEUT % 75.6 % (42.8-82.8); PLATELET COUNT 226 K/MM3 (134-434); WHITE BLOOD COUNT 10.4 K/mm3 (4.0-10.0)
[2017-03-12 07:49] LABS: ANION GAP 7 (8-16); CALCIUM 7.2 mg/dL (8.5-10.1); CO2 26 mmol/L (21-32); CREATININE 1.1 mg/dL (0.7-1.3); GLUCOSE,RANDOM 124 mg/dL (74-106); MAGNESIUM 2.2 mg/dL (1.8-2.4); PHOSPHOROUS 3.4 mg/dL (2.5-4.9)
[2017-03-12] MEDS ORDERED: PT OWN MED DRAWER 7, Y5N ONE ×3 (08:46→21:18)
[2017-03-12] MEDS: METOPROLOL TARTRATE 50 MG TABLET (FP) GT SCH ×2 (09:20→21:25)
[2017-03-12] MEDS: RANITIDINE HCL 150 MG/10 ML UNIT-DOSE GT SCH (09:20)
[2017-03-12] MEDS: CYANOCOBALAMIN 1,000 MCG TABLET (FP) GT SCH (09:21)
[2017-03-12] MEDS: LACTOBACILLUS ACIDOPHILUS 1 EACH TAB (FP) GT SCH (09:21)
[2017-03-12] MEDS: HEPARIN NA (PORCINE) 5,000 UNITS/ML 1ML VIAL SQ SCH ×2 (09:21→21:24)
[2017-03-12] MEDS: ASCORBIC ACID 500 MG/5 ML UNIT DOSE CUP GT SCH (09:22)
--- NOTE | 2017-03-12 11:06 | CONSULT ---
Admitting History and Physical - Primary Care Physician PCP: Carolin Goyal - Admission History of Present Illness: Per EMR: 86 y.o. male recently discharged from the hospital to the [place] after treatment for respiratory failure, choledocholithiasis and pancreatitis s/p cholecystosmy , s/p GT readmitted for hypoxia, wheezing, tachycardia, leukocytosis, fever Possible Aspiration PNA vs HCAP Pt well known to me from last admission. 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 Cardiovascular: Yes: HTN Hepatobiliary: Yes: Cholelithiasis, Cholecystitis (cholecystostomy ), Choledocholithiasis Renal/: Yes: Renal Inusuff Infectious Disease: No: AIDS, C-Diff, Herpes Zoster, HIV, MRSA, STD's, Tuberculosis, VREF, Other Psych: Yes: Depression, Psychosis (features to dementia) Musculoskeletal: No: Bursitis, Chronic low back pain, Hemiparesis, Hemiplegia, Osteoarthritis, Paraplegia, Other Rheumatology: No: Fibromyalgia, Gout, Lupus, Rheumatoid Arthritis, Sarcoidosis, Vasculitis, Other ENT: No: Allergic Rhinitis, Sinusitis, Other Endocrine: No: Gilbert's Disease, Katharina's Disease, Diabetes Insipidus, Diabetes Mellitus (cholecystostomy ), Hyperparathyroidism, Hyperthyroidism, Hypothyroidism, Osteopenia, SIADH, Other Dermatology: No: Basal Cell, Cellulitis, Eczema, Melanoma, Psoriasis, Squamous Cell, Other - Past Surgical History Past Surgical History: Yes: Upper Endoscopy (with ERCP and stone extraction 2015 [place] (too sick for cholecystectomy)) - Smoking History Smoking history: Unknown if ever smoked Have you smoked in the past 12 months: No If you are a former smoker, when did you quit?: 30 YRS AGO - 1-2ppd x 20-30 yrs - Alcohol/Substance Use Hx Alcohol Use: No History of Substance Use: reports: None - Social History ADL: Support Services History - Admission Reason For Visit: ASPIRATION PNEUMONIA/SEPSIS/HYPERKALEMIA - Diagnostics X-ray: Report Reviewed CT Scan: Report Reviewed - General Mental Status: Lethargic Speech Evaluation - Communication Primary Language: BELARUSIAN Communication: Yes: Non-Communicable - Speech Characteristics Articulation: Yes: Imprecise - Swallow Evaluation/Bedside Assessment Current Nutritional Intake: G Tube Timing of Swallow: Delayed (rare. Non- functional.) Recommendations - Speech Evaluation, Impression/Plan Impression: w/u in progress. if aspiration suspected- anterograde on secretions/ retrograde from PEG - Dysphagia Impressions/Plan Swallowing Skills: Impaired *Silent aspiration: cannot be R/O at bedside Dysphagia Treatment Plan: Other Recommendations: Palliative Care, Other (Elevate HOB at all times, including during pt care. Mouth care. If neccessary, consider reducing PEG rate-RD consult.) - Recommendations Diet Consistency: NPO, Other (GT feedings) Liquids: NPO
--- NOTE | 2017-03-12 11:06 | PN ---
Progress Note (short form) - Note Progress Note: Subjective: The patient was seen and examined at the bedside, he is non-verbal at baseline. WBC trending down Lactic acid 1.7 Biliary drain fluid sent for gram stain today Current Medications Generic Name Dose Route Start Last Admin Trade Name Roz PRN Reason Stop Dose Admin Albuterol/Ipratropium 1 amp 03/11/17 06:00 03/12/17 17:05 Duoneb - NEB 1 amp QIDR HOANG Administration Artificial Tears 1 drop 03/11/17 22:00 03/11/17 22:36 Artificial Tears OU 1 drop HS HOANG Administration Ascorbic Acid 500 mg 03/11/17 10:00 03/12/17 09:22 Vitamin C Oral Solution - GT 500 mg DAILY HOANG Administration Cyanocobalamin 1,000 mcg 03/11/17 10:00 03/12/17 09:21 Vitamin B12 - GT 1,000 mcg DAILY HOANG Administration Heparin Sodium (Porcine) 5,000 unit 03/11/17 10:00 03/12/17 09:21 Heparin - SQ 5,000 unit BID HOANG Administration Dextrose/Sodium Chloride 1,000 mls @ 83 mls/hr 03/11/17 15:30 03/12/17 14:41 D5-Ns - IV 83 mls/hr ASDIR HOANG Administration Piperacillin Sod/Tazobactam 50 mls @ 100 mls/hr 03/11/17 16:30 03/12/17 14:40 Sod 3.375 gm/ Dextrose IVPB 100 mls/hr Q6H-IV HOANG Administration Lactobacillus Acidophilus 1 tab 03/11/17 10:00 03/12/17 09:21 Bacid - GT 1 tab DAILY HOANG Administration Metoprolol Tartrate 75 mg 03/11/17 10:00 03/12/17 09:20 Lopressor - GT 75 mg BID HOANG Administration Ranitidine HCl 150 mg 03/11/17 10:00 03/12/17 09:20 Zantac Oral Solution - GT 150 mg DAILY HOANG Administration Senna 17.6 mg 03/11/17 22:00 03/11/17 22:37 Senna Oral Solution - GT 17.6 mg HS HOANG Administration Objective: Vital Signs Period Temp Pulse Resp BP Sys/Hernandez Pulse Ox Last 24 Hr 96.3 F-98.8 F 65-104 18-20 107-133/58-73 97-98 Physical Exam: General: NAD, non-verbal Lungs: Rhonchi bilaterally Abd: Right CARMELITA with biliary drainage. + PEG, abdominal binder Ext: Contracted Neuro: Non-verbal CBCD WBC 7.0 K/mm3 (4.0-10.0) D 03/12/17 18:00 RBC 2.50 M/mm3 (4.00-5.60) L 03/12/17 18:00 Hgb 8.4 GM/dL (11.7-16.9) L 03/12/17 18:00 Hct 24.6 % (35.4-49) L 03/12/17 18:00 MCV 98.5 fl (80-96) H 03/12/17 18:00 MCHC 34.2 g/dl (32.0-35.9) 03/12/17 18:00 RDW 16.0 % (11.9-15.9) H 03/12/17 18:00 Plt Count 214 K/MM3 (134-434) 03/12/17 18:00 MPV 8.9 fl (7.5-11.1) 03/12/17 18:00 CMP Sodium 143 mmol/L (136-145) 03/12/17 05:05 Potassium 3.7 mmol/L (3.5-5.1) 03/12/17 05:05 Chloride 110 mmol/L (98-107) H 03/12/17 05:05 Carbon Dioxide 26 mmol/L (21-32) 03/12/17 05:05 Anion Gap 7 (8-16) L 03/12/17 05:05 BUN 29 mg/dL (7-18) H D 03/12/17 05:05 Creatinine 1.1 mg/dL (0.7-1.3) D 03/12/17 05:05 Creat Clearance w eGFR 33.70 (>60) 03/11/17 01:50 Random Glucose 124 mg/dL (74-106) H D 03/12/17 05:05 Calcium 7.2 mg/dL (8.5-10.1) L 03/12/17 05:05 Total Bilirubin 0.9 mg/dL (0.2-1.0) 03/11/17 01:50 AST 18 U/L (15-37) 03/11/17 01:50 ALT 26 U/L (12-78) 03/11/17 01:50 Alkaline Phosphatase 177 U/L (45-117) H 03/11/17 01:50 Total Protein 6.8 g/dl (6.4-8.2) 03/11/17 01:50 Albumin 2.4 g/dl (3.4-5.0) L 03/11/17 01:50 CARDIAC ENZYMES Creatine Kinase 63 IU/L (39-308) 03/10/17 22:40 Troponin I < 0.02 ng/ml (0.00-0.05) 03/10/17 22:40 Microbiology 03/10/17 22:30 Blood - Peripheral Venous Blood Culture - Preliminary NO GROWTH OBTAINED AFTER 48 HOURS, INCUBATION TO CONTINUE FOR 3 DAYS. 03/10/17 22:40 Blood - Peripheral Venous Blood Culture - Preliminary NO GROWTH OBTAINED AFTER 48 HOURS, INCUBATION TO CONTINUE FOR 3 DAYS. 03/10/17 22:14 Urine - Urine - Catheterized Urine Culture - Final Assessment: This is an 86 year old male with PMHx of HTN, osteoarthritis, dementia, bipolar disorder, depression, ascending cholangitis (s/p percutaneous cholecystostomy 02/02/17), G-tube placement 03/02/17, who presented to the ED with suspected aspiration pneumonia Plan: 1) Severe sepsis 2/2 suspected aspiration pneumonia vs. recurrent cholangitis - Chest x-ray reviewed - Continue Zosyn - Continue Vanco - Discussed with interventional radiology who reviewed CT results, reports recurrent cholangitis. Discussed with Dr. Glass - Blood cultures with NGTD - F/u bile culture - Appreciate ID consult 2) Percutaneous cholecystostomy tube with possible fecal content - Discussed CT results with IR, will likely need fistulogram once sepsis treated 3) HTN - Continue to hold antihypertensives for now 4) F/E/N: - NPO for now, awaiting dietary consult - IV fluids - Monitor electrolytes 5) Prophylaxis: - Heparin 5,000u sq bid 6) Dispo: - Requires continued inpatient care CODE STATUS: DNR/DNI Visit type - Emergency Visit Emergency Visit: Yes ED Registration Date: 03/11/17 Care time: The patient presented to the Emergency Department on the above date and was hospitalized for further evaluation of their emergent condition. - New Patient This patient is new to me today: No - Critical Care Critical Care patient: No
--- NOTE | 2017-03-12 12:46 | PN ---
Progress Note, Physician History of Present Illness: Chart reviewed. CT results noted. Non-toxic appearance, not in distress. - Current Medication List Current Medications: Active Medications Albuterol/Ipratropium (Duoneb -) 1 amp NEB QIDR [facility] Last Admin: 03/12/17 11:10 Dose: 1 amp Artificial Tears (Artificial Tears) 1 drop OU HS [facility] Last Admin: 03/11/17 22:36 Dose: 1 drop Ascorbic Acid (Vitamin C Oral Solution -) 500 mg GT DAILY [facility] Last Admin: 03/12/17 09:22 Dose: 500 mg Cyanocobalamin (Vitamin B12 -) 1,000 mcg GT DAILY [facility] Last Admin: 03/12/17 09:21 Dose: 1,000 mcg Heparin Sodium (Porcine) (Heparin -) 5,000 unit SQ BID [facility] Last Admin: 03/12/17 09:21 Dose: 5,000 unit Dextrose/Sodium Chloride (D5-Ns -) 1,000 mls @ 83 mls/hr IV ASDIR [facility] Last Admin: 03/11/17 15:30 Dose: 83 mls/hr Vancomycin HCl 1,250 mg/ (Dextrose) 250 mls @ 166.667 mls/hr IVPB Q24H HOANG PRN Reason: Protocol Last Admin: 03/11/17 21:55 Dose: 166.667 mls/hr Piperacillin Sod/Tazobactam (Sod 3.375 gm/ Dextrose) 50 mls @ 100 mls/hr IVPB Q6H-IV HOANG Last Admin: 03/12/17 09:50 Dose: 100 mls/hr Lactobacillus Acidophilus (Bacid -) 1 tab GT DAILY [facility] Last Admin: 03/12/17 09:21 Dose: 1 tab Metoprolol Tartrate (Lopressor -) 75 mg GT BID [facility] Last Admin: 03/12/17 09:20 Dose: 75 mg Ranitidine HCl (Zantac Oral Solution -) 150 mg GT DAILY [facility] Last Admin: 03/12/17 09:20 Dose: 150 mg Senna (Senna Oral Solution -) 17.6 mg GT HS [facility] Last Admin: 03/11/17 22:37 Dose: 17.6 mg - Objective Vital Signs: Vital Signs Temperature 98.8 F 03/12/17 09:00 Pulse Rate 82 03/12/17 11:10 Respiratory Rate 18 03/12/17 09:00 Blood Pressure 108/60 12/08/17 09:00 O2 Sat by Pulse Oximetry (%) 97 03/12/17 11:10 Constitutional: Yes: No Distress, Calm Eyes: Yes: Conjunctiva Clear HENT: Yes: Atraumatic Neck: Yes: Supple Respiratory: Yes: Regular Gastrointestinal: Yes: Soft, Other (CARMELITA with bile). No: Melena, Rectal Bleeding , Tenderness Neurological: Yes: Oriented (to self) Labs: CBC, BMP 03/12/17 05:05 03/12/17 05:05 INR, PTT INR 1.31 (0.82-1.09) H 03/10/17 22:40 Problem List - Problems (1) Aspiration pneumonia Code(s): J69.0 - PNEUMONITIS DUE TO INHALATION OF FOOD AND VOMIT (2) Hyperkalemia Code(s): E87.5 - HYPERKALEMIA (3) Sepsis Code(s): A41.9 - SEPSIS, UNSPECIFIED ORGANISM Assessment/Plan Doubt cholangitis Aspiration precautions. Nutrition service consult re rate/calories Abx as per Primary/ID team .
[2017-03-12] MEDS: DEXTROSE 5%-NORMAL SALINE 1,000 ML IV SCH (14:41)
--- NOTE | 2017-03-12 17:23 | PN ---
Progress Note, Physician History of Present Illness: Pt afebrile, arousable, without acute distress. - Current Medication List Current Medications: Active Medications Albuterol/Ipratropium (Duoneb -) 1 amp NEB QIDR [facility] Last Admin: 03/12/17 11:10 Dose: 1 amp Artificial Tears (Artificial Tears) 1 drop OU HS [facility] Last Admin: 03/11/17 22:36 Dose: 1 drop Ascorbic Acid (Vitamin C Oral Solution -) 500 mg GT DAILY [facility] Last Admin: 03/12/17 09:22 Dose: 500 mg Cyanocobalamin (Vitamin B12 -) 1,000 mcg GT DAILY [facility] Last Admin: 03/12/17 09:21 Dose: 1,000 mcg Heparin Sodium (Porcine) (Heparin -) 5,000 unit SQ BID [facility] Last Admin: 03/12/17 09:21 Dose: 5,000 unit Dextrose/Sodium Chloride (D5-Ns -) 1,000 mls @ 83 mls/hr IV ASDIR [facility] Last Admin: 03/12/17 14:41 Dose: 83 mls/hr Vancomycin HCl 1,250 mg/ (Dextrose) 250 mls @ 166.667 mls/hr IVPB Q24H [facility] PRN Reason: Protocol Last Admin: 03/11/17 21:55 Dose: 166.667 mls/hr Piperacillin Sod/Tazobactam (Sod 3.375 gm/ Dextrose) 50 mls @ 100 mls/hr IVPB Q6H-IV [facility] Last Admin: 03/12/17 14:40 Dose: 100 mls/hr Lactobacillus Acidophilus (Bacid -) 1 tab GT DAILY [facility] Last Admin: 03/12/17 09:21 Dose: 1 tab Metoprolol Tartrate (Lopressor -) 75 mg GT BID [facility] Last Admin: 03/12/17 09:20 Dose: 75 mg Ranitidine HCl (Zantac Oral Solution -) 150 mg GT DAILY [facility] Last Admin: 03/12/17 09:20 Dose: 150 mg Senna (Senna Oral Solution -) 17.6 mg GT HS [facility] Last Admin: 03/11/17 22:37 Dose: 17.6 mg - Objective Vital Signs: Vital Signs Temperature 96.3 F L 03/12/17 14:00 Pulse Rate 65 03/12/17 14:00 Respiratory Rate 20 03/12/17 14:00 Blood Pressure 112/58 03/12/17 14:00 O2 Sat by Pulse Oximetry (%) 97 03/12/17 11:10 Constitutional: Yes: No Distress Cardiovascular: Yes: Regular Rate and Rhythm Respiratory: Yes: Diminished (poor inspiratory effort) Gastrointestinal: Yes: Normal Bowel Sounds, Soft (cholecystostomy drain with bilious fluid) Extremities: Yes: WNL Integumentary: Yes: WNL Labs: CBC, BMP 03/12/17 05:05 03/12/17 05:05 INR, PTT INR 1.31 (0.82-1.09) H 03/10/17 22:40 Microbiology 03/10/17 22:14 Urine - Urine - Catheterized Urine Culture - Final 03/10/17 22:30 Blood - Peripheral Venous Blood Culture - Preliminary NO GROWTH OBTAINED AFTER 24 HOURS, INCUBATION TO CONTINUE FOR 4 DAYS. 03/10/17 22:40 Blood - Peripheral Venous Blood Culture - Preliminary NO GROWTH OBTAINED AFTER 24 HOURS, INCUBATION TO CONTINUE FOR 4 DAYS. Problem List - Problems (1) Aspiration pneumonia Code(s): J69.0 - PNEUMONITIS DUE TO INHALATION OF FOOD AND VOMIT (2) Sepsis Code(s): A41.9 - SEPSIS, UNSPECIFIED ORGANISM (3) Dementia with behavioral disturbance Code(s): F03.91 - UNSPECIFIED DEMENTIA WITH BEHAVIORAL DISTURBANCE Qualifiers: Dementia type: unspecified type Qualified Code(s): F03.91 - Unspecified dementia with behavioral disturbance (4) Hypertension Code(s): I10 - ESSENTIAL (PRIMARY) HYPERTENSION Qualifiers: Hypertension type: essential hypertension Qualified Code(s): I10 - Essential (primary) hypertension Assessment/Plan 86 y.o. male recently discharged from the hospital to the [place] after treatment for respiratory failure, choledocholithiasis and pancreatitis s/p cholecystosmy , s/p GT readmitted for hypoxia, wheezing, tachycardia, leukocytosis, fever Possible Aspiration PNA/pneumonitis - continue Zosyn IV for now, d/c Vancomycin - blood cultures/urine cultures so far no growth - afebrile, vitals stable cont. monitor vitals closely
[2017-03-12 19:22] LABS: MCH 33.7 pg (25.7-33.7); MCHC 34.2 g/dl (32.0-35.9); MEAN CELL VOLUME 98.5 fl (80-96); MEAN PLT VOLUME 8.9 fl (7.5-11.1); PLATELET COUNT 214 K/MM3 (134-434)
[2017-03-12] MEDS: ARTIFICIAL TEARS (POLYVINYL ALCOHOL 1.4%) OPTH DROPS OU SCH (21:26)
[2017-03-12] MEDS: SENNOSIDES 8.8 MG/5 ML BULK BOTTLE GT SCH (22:56)
[2017-03-13] MEDS: ALBUTEROL SO4 2.5/IPRATROPIUM 0.5 INH SOL 3 ML VIAL.NEB. NEB SCH ×4 (00:03→18:01)
[2017-03-13] MEDS: PIPERACILLIN/TAZOB 3.375 GM 3.375 GM in DEXTROSE 5%-WATER - 50 ML IVPB SCH ×4 (02:30→21:24)
[2017-03-13] MEDS: LACTOBACILLUS ACIDOPHILUS 1 EACH TAB (FP) GT SCH (09:17)
[2017-03-13] MEDS: METOPROLOL TARTRATE 50 MG TABLET (FP) GT SCH ×2 (09:17→22:24)
[2017-03-13] MEDS: RANITIDINE HCL 150 MG/10 ML UNIT-DOSE GT SCH (09:18)
[2017-03-13] MEDS: CYANOCOBALAMIN 1,000 MCG TABLET (FP) GT SCH (09:18)
[2017-03-13] MEDS: ASCORBIC ACID 500 MG/5 ML UNIT DOSE CUP GT SCH (09:18)
[2017-03-13] MEDS: HEPARIN NA (PORCINE) 5,000 UNITS/ML 1ML VIAL SQ SCH ×2 (09:19→22:24)
[2017-03-13] MEDS: DEXTROSE 5%-NORMAL SALINE 1,000 ML IV SCH (12:28)
--- NOTE | 2017-03-13 15:19 | PN ---
Progress Note, Physician History of Present Illness: Pt more alert and responsive. No distress. Remains afebrile. - Current Medication List Current Medications: Active Medications Albuterol/Ipratropium (Duoneb -) 1 amp NEB QIDR [facility] Last Admin: 03/13/17 11:20 Dose: Not Given Artificial Tears (Artificial Tears) 1 drop OU HS [facility] Last Admin: 03/12/17 21:26 Dose: 1 drop Ascorbic Acid (Vitamin C Oral Solution -) 500 mg GT DAILY [facility] Last Admin: 03/13/17 09:18 Dose: 500 mg Cyanocobalamin (Vitamin B12 -) 1,000 mcg GT DAILY [facility] Last Admin: 03/13/17 09:18 Dose: 1,000 mcg Heparin Sodium (Porcine) (Heparin -) 5,000 unit SQ BID [facility] Last Admin: 03/13/17 09:19 Dose: 5,000 unit Piperacillin Sod/Tazobactam (Sod 3.375 gm/ Dextrose) 50 mls @ 100 mls/hr IVPB Q6H-IV [facility] Last Admin: 03/13/17 14:47 Dose: 100 mls/hr Lactobacillus Acidophilus (Bacid -) 1 tab GT DAILY [facility] Last Admin: 03/13/17 09:17 Dose: 1 tab Metoprolol Tartrate (Lopressor -) 75 mg GT BID [facility] Last Admin: 03/13/17 09:17 Dose: 75 mg Ranitidine HCl (Zantac Oral Solution -) 150 mg GT DAILY [facility] Last Admin: 03/13/17 09:18 Dose: 150 mg Senna (Senna Oral Solution -) 17.6 mg GT HS [facility] Last Admin: 03/12/17 22:56 Dose: 17.6 mg - Objective Vital Signs: Vital Signs Temperature 98 F 03/13/17 11:00 Pulse Rate 71 03/13/17 11:00 Respiratory Rate 18 03/13/17 11:00 Blood Pressure 126/66 03/13/17 11:00 O2 Sat by Pulse Oximetry (%) 96 03/13/17 09:00 Constitutional: Yes: No Distress, Calm Neck: Yes: Supple Cardiovascular: Yes: Regular Rate and Rhythm Respiratory: Yes: Other (poor inspiratory effort) Gastrointestinal: Yes: Normal Bowel Sounds, Soft, Other (biliary drain functioning) Neurological: Yes: Alert Labs: CBC, BMP 03/12/17 18:00 03/12/17 05:05 INR, PTT INR 1.31 (0.82-1.09) H 03/10/17 22:40 Microbiology 03/12/17 12:30 Drainage Gram Stain - Final 03/12/17 12:30 Drainage Body Fluid Culture - Preliminary Pending Organism Pending Organism#2 Streptococcus Viridans Diphtheroid/Corynebacterium 03/10/17 22:30 Blood - Peripheral Venous Blood Culture - Preliminary NO GROWTH OBTAINED AFTER 48 HOURS, INCUBATION TO CONTINUE FOR 3 DAYS. 03/10/17 22:40 Blood - Peripheral Venous Blood Culture - Preliminary NO GROWTH OBTAINED AFTER 48 HOURS, INCUBATION TO CONTINUE FOR 3 DAYS. 03/10/17 22:14 Urine - Urine - Catheterized Urine Culture - Final Problem List - Problems (1) Aspiration pneumonia Code(s): J69.0 - PNEUMONITIS DUE TO INHALATION OF FOOD AND VOMIT (2) Sepsis Code(s): A41.9 - SEPSIS, UNSPECIFIED ORGANISM (3) Dementia with behavioral disturbance Code(s): F03.91 - UNSPECIFIED DEMENTIA WITH BEHAVIORAL DISTURBANCE Qualifiers: Dementia type: unspecified type Qualified Code(s): F03.91 - Unspecified dementia with behavioral disturbance (4) Hypertension Code(s): I10 - ESSENTIAL (PRIMARY) HYPERTENSION Qualifiers: Hypertension type: essential hypertension Qualified Code(s): I10 - Essential (primary) hypertension Assessment/Plan 86 y.o. male recently discharged from the hospital to the [place] after treatment for respiratory failure, choledocholithiasis and pancreatitis s/p cholecystosmy , s/p GT readmitted for hypoxia, wheezing, tachycardia, leukocytosis, fever Possible Aspiration PNA/pneumonitis - pt afebrile, less agitated, leukoytosis resolved - continue Zosyn IV for now - f/u biliary drain fluid culture isolates - blood cultures/urine cultures so far no growth - d/w LAMINATOR who noted biliary fluid was initially feculent - possible order for fistulogram - afebrile, vitals stable cont. monitor vitals closely
--- NOTE | 2017-03-13 16:15 | PN ---
Progress Note (short form) - Note Progress Note: Subjective: The patient was seen and examined at the bedside, he is non-verbal at baseline. Current Medications Generic Name Dose Route Start Last Admin Trade Name Roz PRN Reason Stop Dose Admin Albuterol/Ipratropium 1 amp 03/11/17 06:00 03/12/17 17:05 Duoneb - NEB 1 amp QIDR HOANG Administration Artificial Tears 1 drop 03/11/17 22:00 03/11/17 22:36 Artificial Tears OU 1 drop HS HOANG Administration Ascorbic Acid 500 mg 03/11/17 10:00 03/12/17 09:22 Vitamin C Oral Solution - GT 500 mg DAILY HOANG Administration Cyanocobalamin 1,000 mcg 03/11/17 10:00 03/12/17 09:21 Vitamin B12 - GT 1,000 mcg DAILY HOANG Administration Heparin Sodium (Porcine) 5,000 unit 03/11/17 10:00 03/12/17 09:21 Heparin - SQ 5,000 unit BID HOANG Administration Dextrose/Sodium Chloride 1,000 mls @ 83 mls/hr 03/11/17 15:30 03/12/17 14:41 D5-Ns - IV 83 mls/hr ASDIR HOANG Administration Piperacillin Sod/Tazobactam 50 mls @ 100 mls/hr 03/11/17 16:30 03/12/17 14:40 Sod 3.375 gm/ Dextrose IVPB 100 mls/hr Q6H-IV HOANG Administration Lactobacillus Acidophilus 1 tab 03/11/17 10:00 03/12/17 09:21 Bacid - GT 1 tab DAILY HOANG Administration Metoprolol Tartrate 75 mg 03/11/17 10:00 03/12/17 09:20 Lopressor - GT 75 mg BID HOANG Administration Ranitidine HCl 150 mg 03/11/17 10:00 03/12/17 09:20 Zantac Oral Solution - GT 150 mg DAILY HOANG Administration Senna 17.6 mg 03/11/17 22:00 03/11/17 22:37 Senna Oral Solution - GT 17.6 mg HS HOANG Administration Objective: Vital Signs Period Temp Pulse Resp BP Sys/Hernandez Pulse Ox Last 24 Hr 96.3 F-98.8 F 65-104 18-20 107-133/58-73 97-98 Physical Exam: General: NAD, non-verbal Lungs: Rhonchi bilaterally Abd: Right CARMELITA with biliary drainage. + PEG, abdominal binder Ext: Contracted Neuro: Non-verbal CBCD WBC 7.0 K/mm3 (4.0-10.0) D 03/12/17 18:00 RBC 2.50 M/mm3 (4.00-5.60) L 03/12/17 18:00 Hgb 8.4 GM/dL (11.7-16.9) L 03/12/17 18:00 Hct 24.6 % (35.4-49) L 03/12/17 18:00 MCV 98.5 fl (80-96) H 03/12/17 18:00 MCHC 34.2 g/dl (32.0-35.9) 03/12/17 18:00 RDW 16.0 % (11.9-15.9) H 03/12/17 18:00 Plt Count 214 K/MM3 (134-434) 03/12/17 18:00 MPV 8.9 fl (7.5-11.1) 03/12/17 18:00 CMP Sodium 143 mmol/L (136-145) 03/12/17 05:05 Potassium 3.7 mmol/L (3.5-5.1) 03/12/17 05:05 Chloride 110 mmol/L (98-107) H 03/12/17 05:05 Carbon Dioxide 26 mmol/L (21-32) 03/12/17 05:05 Anion Gap 7 (8-16) L 03/12/17 05:05 BUN 29 mg/dL (7-18) H D 03/12/17 05:05 Creatinine 1.1 mg/dL (0.7-1.3) D 03/12/17 05:05 Creat Clearance w eGFR 33.70 (>60) 03/11/17 01:50 Random Glucose 124 mg/dL (74-106) H D 03/12/17 05:05 Calcium 7.2 mg/dL (8.5-10.1) L 03/12/17 05:05 Total Bilirubin 0.9 mg/dL (0.2-1.0) 03/11/17 01:50 AST 18 U/L (15-37) 03/11/17 01:50 ALT 26 U/L (12-78) 03/11/17 01:50 Alkaline Phosphatase 177 U/L (45-117) H 03/11/17 01:50 Total Protein 6.8 g/dl (6.4-8.2) 03/11/17 01:50 Albumin 2.4 g/dl (3.4-5.0) L 03/11/17 01:50 CARDIAC ENZYMES Creatine Kinase 63 IU/L (39-308) 03/10/17 22:40 Troponin I < 0.02 ng/ml (0.00-0.05) 03/10/17 22:40 Microbiology 03/12/17 12:30 Drainage Gram Stain - Final 03/12/17 12:30 Drainage Body Fluid Culture - Preliminary Pending Organism Pending Organism#2 Streptococcus Viridans Diphtheroid/Corynebacterium 03/10/17 22:30 Blood - Peripheral Venous Blood Culture - Preliminary NO GROWTH OBTAINED AFTER 48 HOURS, INCUBATION TO CONTINUE FOR 3 DAYS. 03/10/17 22:40 Blood - Peripheral Venous Blood Culture - Preliminary NO GROWTH OBTAINED AFTER 48 HOURS, INCUBATION TO CONTINUE FOR 3 DAYS. 03/10/17 22:14 Urine - Urine - Catheterized Urine Culture - Final Assessment: This is an 86 year old male with PMHx of HTN, osteoarthritis, dementia, bipolar disorder, depression, ascending cholangitis (s/p percutaneous cholecystostomy 02/02/17), G-tube placement 03/02/17, who presented to the ED with suspected aspiration pneumonia Plan: 1) Severe sepsis 2/2 suspected aspiration pneumonia vs. 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 Discussed with Dr. Glass - Blood cultures with NGTD - F/u bile culture - Appreciate ID consult 2) Percutaneous cholecystostomy tube with possible fecal content - Discussed CT results with IR, will likely need fistulogram once sepsis treated 3) HTN - Continue to hold antihypertensives for now 4) F/E/N: - Started on tube feeds today: two gabriel - IV fluids - Monitor electrolytes 5) Prophylaxis: - Heparin 5,000u sq bid 6) Dispo: - Requires continued inpatient care CODE STATUS: DNR/DNI Visit type - Emergency Visit Emergency Visit: Yes ED Registration Date: 03/11/17 Care time: The patient presented to the Emergency Department on the above date and was hospitalized for further evaluation of their emergent condition. - New Patient This patient is new to me today: No - Critical Care Critical Care patient: No
[2017-03-13] MEDS ORDERED: PT OWN MED DRAWER 7, Y5N ONE (22:16)
[2017-03-13] MEDS: ARTIFICIAL TEARS (POLYVINYL ALCOHOL 1.4%) OPTH DROPS OU SCH (22:25)
[2017-03-13] MEDS: SENNOSIDES 8.8 MG/5 ML BULK BOTTLE GT SCH (22:25)
[2017-03-14] MEDS: ALBUTEROL SO4 2.5/IPRATROPIUM 0.5 INH SOL 3 ML VIAL.NEB. NEB SCH ×4 (00:35→18:10)
[2017-03-14] MEDS: PIPERACILLIN/TAZOB 3.375 GM 3.375 GM in DEXTROSE 5%-WATER - 50 ML IVPB SCH ×4 (03:19→22:03)
[2017-03-14 07:45] LABS: MCH 33.2 pg (25.7-33.7); MCHC 34.5 g/dl (32.0-35.9); MEAN CELL VOLUME 96.3 fl (80-96); MEAN PLT VOLUME 8.7 fl (7.5-11.1); PLATELET COUNT 208 K/MM3 (134-434); RDW 16.1 % (11.9-15.9); WHITE BLOOD COUNT 9.3 K/mm3 (4.0-10.0)
[2017-03-14] MEDS ORDERED: PT OWN MED DRAWER 7, Y5N ONE ×4 (08:11→19:45)
[2017-03-14 08:33] LABS: ALBUMIN 1.9 g/dl (3.4-5.0); ALK PHOS 145 U/L (45-117); ANION GAP 7 (8-16); BILIRUBIN,TOTAL 0.7 mg/dL (0.2-1.0); CALCIUM 7.3 mg/dL (8.5-10.1); CO2 27 mmol/L (21-32); GLUCOSE,RANDOM 114 mg/dL (74-106); SGOT/AST 26 U/L (15-37); SGPT/ALT 27 U/L (12-78); TOT PROT 5.8 g/dl (6.4-8.2)
[2017-03-14] MEDS: HEPARIN NA (PORCINE) 5,000 UNITS/ML 1ML VIAL SQ SCH ×2 (09:03→21:04)
[2017-03-14] MEDS: RANITIDINE HCL 150 MG/10 ML UNIT-DOSE GT SCH (09:03)
[2017-03-14] MEDS: ASCORBIC ACID 500 MG/5 ML UNIT DOSE CUP GT SCH (09:03)
[2017-03-14] MEDS: CYANOCOBALAMIN 1,000 MCG TABLET (FP) GT SCH (09:04)
[2017-03-14] MEDS: METOPROLOL TARTRATE 50 MG TABLET (FP) GT SCH ×2 (09:04→21:03)
[2017-03-14] MEDS: LACTOBACILLUS ACIDOPHILUS 1 EACH TAB (FP) GT SCH (09:04)
--- NOTE | 2017-03-14 12:42 | PN ---
Physical Exam: SUBJECTIVE: Patient seen and examined Pt remains confused. OBJECTIVE: Vital Signs Period Temp Pulse Resp BP Sys/Hernandez Pulse Ox Last 24 Hr 98 F-98.8 F 78-84 18-20 122-151/75-82 95-97 GENERAL:Not in any acute distress,disoriented LUNGS: BS diminished bilaterally, no wheezes, no crackles, no accessory muscle use. HEART: Regular rate and rhythm, S1, S2 without murmur, rub or gallop. ABDOMEN: Soft, non-tender, nondistended, normoactive bowel sounds, no guarding, no rebound, no hepatosplenomegaly, no masses,Right CARMELITA with biliary drainage. + PEG tube and abdominal binder intact Ext: Contracted, no edema Neuro: confused Addendum SKIN: Warm, dry, normal turgor, no rashes or lesions noted Laboratory Results - last 24 hr 03/14/17 03/14/17 05:48 05:48 WBC 9.3 D RBC 2.56 L Hgb 8.5 L Hct 24.6 L MCV 96.3 H MCH 33.2 MCHC 34.5 RDW 16.1 H Plt Count 208 MPV 8.7 Sodium 146 H Potassium 3.4 L Chloride 112 H Carbon Dioxide 27 Anion Gap 7 L BUN 16 D Creatinine 1.0 Creat Clearance w eGFR > 60 Random Glucose 114 H Calcium 7.3 L Total Bilirubin 0.7 D AST 26 D ALT 27 Alkaline Phosphatase 145 H Total Protein 5.8 L Albumin 1.9 L D Active Medications Generic Name Dose Route Start Last Admin Trade Name Freq PRN Reason Stop Dose Admin Albuterol/Ipratropium 1 amp 03/11/17 06:00 03/14/17 11:11 Duoneb - NEB 1 amp QIDR HOANG Administration Artificial Tears 1 drop 03/11/17 22:00 03/13/17 22:25 Artificial Tears OU 1 drop HS HOANG Administration Ascorbic Acid 500 mg 03/11/17 10:00 03/14/17 09:03 Vitamin C Oral Solution - GT 500 mg DAILY HOANG Administration Cyanocobalamin 1,000 mcg 03/11/17 10:00 03/14/17 09:04 Vitamin B12 - GT 1,000 mcg DAILY HOANG Administration Heparin Sodium (Porcine) 5,000 unit 03/11/17 10:00 03/14/17 09:03 Heparin - SQ 5,000 unit BID HOANG Administration Piperacillin Sod/Tazobactam 50 mls @ 100 mls/hr 03/11/17 16:30 03/14/17 11:00 Sod 3.375 gm/ Dextrose IVPB 100 mls/hr Q6H-IV HOANG Administration Lactobacillus Acidophilus 1 tab 03/11/17 10:00 03/14/17 09:04 Bacid - GT 1 tab DAILY HOANG Administration Metoprolol Tartrate 75 mg 03/11/17 10:00 03/14/17 09:04 Lopressor - GT 75 mg BID HOANG Administration Ranitidine HCl 150 mg 03/11/17 10:00 03/14/17 09:03 Zantac Oral Solution - GT 150 mg DAILY HOANG Administration Senna 17.6 mg 03/11/17 22:00 03/13/17 22:25 Senna Oral Solution - GT Not Given HS [facility] Microbiology 03/12/17 12:30 Gram Stain - Final Drainage Body Fluid Culture - Preliminary Escherichia Coli Esbl Pickup Driver Pending Organism#2 Streptococcus Viridans Diphtheroid/Corynebacterium 03/10/17 22:30 Blood Culture - Preliminary Blood - Peripheral Venous NO GROWTH OBTAINED AFTER 72 HOURS, INCUBATION TO CONTINUE FOR 2 DAYS. 03/10/17 22:40 Blood Culture - Preliminary Blood - Peripheral Venous NO GROWTH OBTAINED AFTER 72 HOURS, INCUBATION TO CONTINUE FOR 2 DAYS. ASSESSMENT/PLAN: This is an 86 year old male with PMHx of HTN, osteoarthritis, dementia, bipolar disorder, depression, ascending cholangitis (s/p percutaneous cholecystostomy ), G-tube placement 03/02/17, who presented to the ED with suspected aspiration pneumonia. * Severe sepsis 2/2 suspected aspiration pneumonia vs. 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 - Blood cultures with NGTD - F/u bile culture - afebrile with no leukocytosis - Neb tx PRN - aspiration precautions *Percutaneous cholecystostomy tube with possible fecal content - As per IR, will likely need fistulogram once sepsis treated * HTN - will cont on home meds * Agitation, hx of dementia - Zyprexia 125mg x1 given - will monitor * F/E/N: - will cont on tube feeding - Monitor electrolytes *Prophylaxis: - Heparin 5,000u sq bid * Dispo: - Requires continued inpatient care CODE STATUS: DNR/DNI Visit type - Emergency Visit Emergency Visit: Yes ED Registration Date: 03/11/17 Care time: The patient presented to the Emergency Department on the above date and was hospitalized for further evaluation of their emergent condition. - New Patient This patient is new to me today: Yes Date on this admission: 03/14/17 - Critical Care Critical Care patient: No
[2017-03-14] MEDS ORDERED: QUEtiapine FUMARATE 25 MG TABLET (FP) PEG ONE (14:42)
[2017-03-14] MEDS: ARTIFICIAL TEARS (POLYVINYL ALCOHOL 1.4%) OPTH DROPS OU SCH (21:04)
[2017-03-15] MEDS: ALBUTEROL SO4 2.5/IPRATROPIUM 0.5 INH SOL 3 ML VIAL.NEB. NEB SCH ×5 (00:23→23:04)
[2017-03-15] MEDS ORDERED: LORazepam 2 MG/ML SDV VIAL IVPUSH ONE (02:17)
[2017-03-15] MEDS ORDERED: LORazepam 2 MG/ML SDV VIAL ONE (02:21)
[2017-03-15] MEDS: PIPERACILLIN/TAZOB 3.375 GM 3.375 GM in DEXTROSE 5%-WATER - 50 ML IVPB SCH ×2 (03:00→10:18)
[2017-03-15 09:32] LABS: BASO % 0.6 % (0-2.0); EOS % 3.1 % (0-4.5); MCH 32.6 pg (25.7-33.7); MCHC 33.7 g/dl (32.0-35.9); MEAN CELL VOLUME 96.7 fl (80-96); MEAN PLT VOLUME 8.3 fl (7.5-11.1); NEUT % 60.1 % (42.8-82.8); PLATELET COUNT 205 K/MM3 (134-434); RDW 16.1 % (11.9-15.9); WHITE BLOOD COUNT 7.6 K/mm3 (4.0-10.0)
[2017-03-15 10:05] LABS: ANION GAP 6 (8-16); CALCIUM 7.3 mg/dL (8.5-10.1); CO2 28 mmol/L (21-32); GLUCOSE,RANDOM 113 mg/dL (74-106); SGOT/AST 24 U/L (15-37); SGPT/ALT 31 U/L (12-78)
[2017-03-15 10:08] LABS: ALK PHOS 136 U/L (45-117); BILIRUBIN,TOTAL 0.7 mg/dL (0.2-1.0); TOT PROT 5.9 g/dl (6.4-8.2)
[2017-03-15] MEDS ORDERED: PT OWN MED DRAWER 7, Y5N ONE ×2 (10:08→21:29)
[2017-03-15] MEDS: LACTOBACILLUS ACIDOPHILUS 1 EACH TAB (FP) GT SCH (10:16)
[2017-03-15] MEDS: METOPROLOL TARTRATE 50 MG TABLET (FP) GT SCH ×2 (10:16→22:06)
[2017-03-15] MEDS: RANITIDINE HCL 150 MG/10 ML UNIT-DOSE GT SCH (10:17)
[2017-03-15] MEDS: CYANOCOBALAMIN 1,000 MCG TABLET (FP) GT SCH (10:17)
[2017-03-15] MEDS: HEPARIN NA (PORCINE) 5,000 UNITS/ML 1ML VIAL SQ SCH ×2 (10:17→22:05)
[2017-03-15] MEDS: ASCORBIC ACID 500 MG/5 ML UNIT DOSE CUP GT SCH (10:17)
[2017-03-15] MEDS ORDERED: POTASSIUM CHLORIDE ORAL LIQUID 20 MEQ/15 ML GT ONE (10:42)
--- NOTE | 2017-03-15 12:29 | PN ---
Progress Note, Physician History of Present Illness: Chart reviewed. CT results noted. Non-toxic appearance, not in distress. Tmax normal. Tolerating tube feeds. - Current Medication List Current Medications: Active Medications Albuterol/Ipratropium (Duoneb -) 1 amp NEB QIDR [facility] Last Admin: 03/15/17 11:38 Dose: 1 amp Artificial Tears (Artificial Tears) 1 drop OU HS [facility] Last Admin: 03/14/17 21:04 Dose: 1 drop Ascorbic Acid (Vitamin C Oral Solution -) 500 mg GT DAILY [facility] Last Admin: 03/15/17 10:17 Dose: 500 mg Cyanocobalamin (Vitamin B12 -) 1,000 mcg GT DAILY [facility] Last Admin: 03/15/17 10:17 Dose: 1,000 mcg Heparin Sodium (Porcine) (Heparin -) 5,000 unit SQ BID [facility] Last Admin: 03/15/17 10:17 Dose: 5,000 unit Piperacillin Sod/Tazobactam (Sod 3.375 gm/ Dextrose) 50 mls @ 100 mls/hr IVPB Q6H-IV [facility] Last Admin: 03/15/17 10:18 Dose: 100 mls/hr Lactobacillus Acidophilus (Bacid -) 1 tab GT DAILY [facility] Last Admin: 03/15/17 10:16 Dose: 1 tab Metoprolol Tartrate (Lopressor -) 75 mg GT BID [facility] Last Admin: 03/15/17 10:16 Dose: 75 mg Ranitidine HCl (Zantac Oral Solution -) 150 mg GT DAILY [facility] Last Admin: 03/15/17 10:17 Dose: 150 mg Senna (Senna Oral Solution -) 17.6 mg GT HS [facility] Last Admin: 03/13/17 22:25 Dose: Not Given - Objective Vital Signs: Vital Signs Temperature 98.5 F 03/15/17 07:47 Pulse Rate 79 03/15/17 07:47 Respiratory Rate 18 03/15/17 07:47 Blood Pressure 129/88 03/15/17 07:47 O2 Sat by Pulse Oximetry (%) 95 03/14/17 21:00 Constitutional: Yes: No Distress, Calm Gastrointestinal: Yes: Soft Labs: CBC, BMP 03/15/17 09:05 03/15/17 09:05 INR, PTT INR 1.31 (0.82-1.09) H 12/06/17 22:40 Problem List - Problems (1) Aspiration pneumonia Code(s): J69.0 - PNEUMONITIS DUE TO INHALATION OF FOOD AND VOMIT (2) Hyperkalemia Code(s): E87.5 - HYPERKALEMIA (3) Sepsis Code(s): A41.9 - SEPSIS, UNSPECIFIED ORGANISM Assessment/Plan Tolerating tube feedins w/o issues thus far. Aspiration precautions. Abx as per Primary/ID team .
[2017-03-15] MEDS ORDERED: ERTAPENEM SODIUM 1 GM/50 ML PRE-DOCKED IVPB SCH (13:30)
[2017-03-15] MEDS: ERTAPENEM SODIUM 1 GM in SODIUM CHLORIDE 50 ML IVPB SCH (15:16)
--- NOTE | 2017-03-15 16:09 | PN ---
Progress Note, Physician History of Present Illness: Pt remains arousable, afebrile. No new events noted. - Current Medication List Current Medications: Active Medications Albuterol/Ipratropium (Duoneb -) 1 amp NEB QIDR [facility] Last Admin: 03/15/17 11:38 Dose: 1 amp Artificial Tears (Artificial Tears) 1 drop OU HS [facility] Last Admin: 03/14/17 21:04 Dose: 1 drop Ascorbic Acid (Vitamin C Oral Solution -) 500 mg GT DAILY [facility] Last Admin: 03/15/17 10:17 Dose: 500 mg Cyanocobalamin (Vitamin B12 -) 1,000 mcg GT DAILY [facility] Last Admin: 03/15/17 10:17 Dose: 1,000 mcg Heparin Sodium (Porcine) (Heparin -) 5,000 unit SQ BID [facility] Last Admin: 03/15/17 10:17 Dose: 5,000 unit Ertapenem 1 gm/ Sodium (Chloride) 50 mls @ 100 mls/hr IVPB DAILY [facility] Last Admin: 03/15/17 15:16 Dose: 100 mls/hr Lactobacillus Acidophilus (Bacid -) 1 tab GT DAILY [facility] Last Admin: 03/15/17 10:16 Dose: 1 tab Metoprolol Tartrate (Lopressor -) 75 mg GT BID [facility] Last Admin: 03/15/17 10:16 Dose: 75 mg Ranitidine HCl (Zantac Oral Solution -) 150 mg GT DAILY [facility] Last Admin: 03/15/17 10:17 Dose: 150 mg Senna (Senna Oral Solution -) 17.6 mg GT HS [facility] Last Admin: 03/13/17 22:25 Dose: Not Given - Objective Vital Signs: Vital Signs Temperature 98 F 03/15/17 09:00 Pulse Rate 77 03/15/17 09:00 Respiratory Rate 20 03/15/17 09:00 Blood Pressure 147/72 03/15/17 09:00 O2 Sat by Pulse Oximetry (%) 95 03/14/17 21:00 Constitutional: Yes: No Distress Cardiovascular: Yes: Regular Rate and Rhythm Respiratory: Yes: Regular Gastrointestinal: Yes: Normal Bowel Sounds, Soft, Other (cholecystostomy drain, +GT) Extremities: Yes: WNL Labs: CBC, BMP 03/15/17 09:05 03/15/17 09:05 INR, PTT INR 1.31 (0.82-1.09) H 03/10/17 22:40 Microbiology 03/12/17 12:30 Drainage Gram Stain - Final 03/12/17 12:30 Drainage Body Fluid Culture - Final Escherichia Coli Esbl Control Systems Specialist Acinetobacter Baumannii/Haemol Streptococcus Viridans Diphtheroid/Corynebacterium 03/12/17 12:30 Drainage Anaerobic Culture - Final NO ANAEROBES WERE ISOLATED 03/10/17 22:30 Blood - Peripheral Venous Blood Culture - Preliminary NO GROWTH OBTAINED AFTER 96 HOURS, INCUBATION TO CONTINUE FOR 1 DAYS. 03/10/17 22:40 Blood - Peripheral Venous Blood Culture - Preliminary NO GROWTH OBTAINED AFTER 96 HOURS, INCUBATION TO CONTINUE FOR 1 DAYS. 03/10/17 22:14 Urine - Urine - Catheterized Urine Culture - Final Problem List - Problems (1) Aspiration pneumonia Code(s): J69.0 - PNEUMONITIS DUE TO INHALATION OF FOOD AND VOMIT (2) Sepsis Code(s): A41.9 - SEPSIS, UNSPECIFIED ORGANISM (3) Dementia with behavioral disturbance Code(s): F03.91 - UNSPECIFIED DEMENTIA WITH BEHAVIORAL DISTURBANCE Qualifiers: Dementia type: unspecified type Qualified Code(s): F03.91 - Unspecified dementia with behavioral disturbance (4) Hypertension Code(s): I10 - ESSENTIAL (PRIMARY) HYPERTENSION Qualifiers: Hypertension type: essential hypertension Qualified Code(s): I10 - Essential (primary) hypertension Assessment/Plan 86 y.o. male recently [place] [facility] [place] for respiratory failure, choledocholithiasis and pancreatitis s/p cholecystosmy , treated with Meropenem/Ampicillin for cholangitis s/p GT readmitted for hypoxia, wheezing, tachycardia, leukocytosis, fever Possible Aspiration PNA Biliary obstruction s/p cholecytostomy - Biliary drain fluid cultures with resistant isolates - will d/c Zosyn, start Ertapenem for now - blood cultures/urine cultures so far no growth cont. monitor vitals closely
--- NOTE | 2017-03-15 16:37 | PN ---
Physical Exam: SUBJECTIVE: Patient seen and examined. OBJECTIVE: Vital Signs Period Temp Pulse Resp BP Sys/Hernandez Pulse Ox Last 24 Hr 97.8 F-98.5 F 77-79 18-20 129-147/58-88 95 GENERAL: The patient is awake, alert, confused and at times agitated HEAD: Normal with no signs of trauma. EYES: PERRL, extraocular movements intact, sclera anicteric, conjunctiva clear. No ptosis. ENT: Ears normal, nares patent, oropharynx clear without exudates, moist mucous membranes. NECK: Trachea midline, full range of motion, supple. LUNGS: diminished bilaterally, no wheezes, no crackles, no accessory muscle use. HEART: Regular rate and rhythm, S1, S2 without murmur, rub or gallop. ABDOMEN: Right CARMELITA with biliary drainage. + PEG tube and abdominal binder intact rebound, no hepatosplenomegaly, no masses. EXTREMITIES: contracted, no edema NEUROLOGICAL: Cranial nerves II through XII grossly intact. Normal speech, gait not observed. PSYCH: confused, agitated SKIN: Warm, dry, normal turgor, no rashes or lesions noted Laboratory Results - last 24 hr 03/15/17 03/15/17 09:05 09:05 WBC 7.6 RBC 2.76 L Hgb 9.0 L Hct 26.7 L MCV 96.7 H MCH 32.6 MCHC 33.7 RDW 16.1 H Plt Count 205 MPV 8.3 Neutrophils % 60.1 D Lymphocytes % 26.6 D Monocytes % 9.6 Eosinophils % 3.1 Basophils % 0.6 Sodium 144 Potassium 3.3 L Chloride 110 H Carbon Dioxide 28 Anion Gap 6 L BUN 17 Creatinine 1.0 Creat Clearance w eGFR > 60 Random Glucose 113 H Calcium 7.3 L Total Bilirubin 0.7 AST 24 ALT 31 Alkaline Phosphatase 136 H Total Protein 5.9 L Albumin 2.0 L Active Medications Generic Name Dose Route Start Last Admin Trade Name Freq PRN Reason Stop Dose Admin Albuterol/Ipratropium 1 amp 03/11/17 06:00 03/15/17 11:38 Duoneb - NEB 1 amp QIDR HOANG Administration Artificial Tears 1 drop 03/11/17 22:00 03/14/17 21:04 Artificial Tears OU 1 drop HS HOANG Administration Ascorbic Acid 500 mg 03/11/17 10:00 03/15/17 10:17 Vitamin C Oral Solution - GT 500 mg DAILY HOANG Administration Cyanocobalamin 1,000 mcg 03/11/17 10:00 03/15/17 10:17 Vitamin B12 - GT 1,000 mcg DAILY HOANG Administration Heparin Sodium (Porcine) 5,000 unit 03/11/17 10:00 03/15/17 10:17 Heparin - SQ 5,000 unit BID HOANG Administration Ertapenem 1 gm/ Sodium 50 mls @ 100 mls/hr 03/15/17 14:30 03/15/17 15:16 Chloride IVPB 100 mls/hr DAILY HOANG Administration Lactobacillus Acidophilus 1 tab 03/11/17 10:00 03/15/17 10:16 Bacid - GT 1 tab DAILY HOANG Administration Metoprolol Tartrate 75 mg 03/11/17 10:00 03/15/17 10:16 Lopressor - GT 75 mg BID HOANG Administration Ranitidine HCl 150 mg 03/11/17 10:00 03/15/17 10:17 Zantac Oral Solution - GT 150 mg DAILY HOANG Administration Senna 17.6 mg 03/11/17 22:00 03/13/17 22:25 Senna Oral Solution - GT Not Given HS HOANG ASSESSMENT/PLAN: Patient is an 86 year old male with PMHx of HTN, osteoarthritis, dementia, bipolar disorder, depression, 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 He was recently discharged from the hospital to [facility] after treatment for respiratory failure. ID: Severe sepsis, likely due to possible aspiration pneumonia vs.biliary obstruction s/p cholecytostomy Bili fluid cultures shows resistant isolates, Zosyn stopped on 03/15, per ID, started on Ertapenem Blood and urine cultures negative to date Fistulogram to rule out possible fecal content Monitor labs, vitals Cardiology: Hypertension, chronic On Toprol 75mg @ hs Monitor BP Neurology: Agitation Previously given Zyprexa for agitation, monitor F.E.N. Fluids: on tube feeds Electrolytes: hypokalemia, repleted Nutrition: tube feeds Prophylaxis: Heparin BID GI: Zantac Disposition: DNR/DNI. Visit type - Emergency Visit Emergency Visit: Yes ED Registration Date: 03/11/17 Care time: The patient presented to the Emergency Department on the above date and was hospitalized for further evaluation of their emergent condition. - New Patient This patient is new to me today: Yes Date on this admission: 03/16/17 - Critical Care Critical Care patient: No - Discharge Referral Referred to [facility] Med P.C.: No
[2017-03-15] MEDS: ARTIFICIAL TEARS (POLYVINYL ALCOHOL 1.4%) OPTH DROPS OU SCH (22:05)
[2017-03-15] MEDS: SENNOSIDES 8.8 MG/5 ML BULK BOTTLE GT SCH (22:08)
[2017-03-16] MEDS ORDERED: PT OWN MED DRAWER 7, Y5N ONE (10:28)
[2017-03-16] MEDS: LACTOBACILLUS ACIDOPHILUS 1 EACH TAB (FP) GT SCH (10:32)
[2017-03-16] MEDS: METOPROLOL TARTRATE 50 MG TABLET (FP) GT SCH ×2 (10:32→21:49)
[2017-03-16] MEDS: CYANOCOBALAMIN 1,000 MCG TABLET (FP) GT SCH (10:33)
[2017-03-16] MEDS: HEPARIN NA (PORCINE) 5,000 UNITS/ML 1ML VIAL SQ SCH ×2 (10:33→21:50)
[2017-03-16] MEDS: RANITIDINE HCL 150 MG/10 ML UNIT-DOSE GT SCH (10:34)
[2017-03-16] MEDS: ASCORBIC ACID 500 MG/5 ML UNIT DOSE CUP GT SCH (10:34)
[2017-03-16] MEDS: ERTAPENEM SODIUM 1 GM in SODIUM CHLORIDE 50 ML IVPB SCH (11:06)
--- NOTE | 2017-03-16 14:13 | PN ---
Physical Exam: SUBJECTIVE: Patient seen and examined OBJECTIVE: Vital Signs Period Temp Pulse Resp BP Sys/Hernandez Pulse Ox Last 24 Hr 97.4 F-97.8 F 80-82 20-20 152-168/86-94 97 GENERAL: The patient is awake, alert, confused and at times agitated HEAD: Normal with no signs of trauma. EYES: PERRL, extraocular movements intact, sclera anicteric, conjunctiva clear. No ptosis. ENT: Ears normal, nares patent, oropharynx clear without exudates, moist mucous membranes. NECK: Trachea midline, full range of motion, supple. LUNGS: diminished bilaterally, no wheezes, no crackles, no accessory muscle use. HEART: Regular rate and rhythm, S1, S2 without murmur, rub or gallop. ABDOMEN: Right CARMELITA with biliary drainage. + PEG tube and abdominal binder intact rebound, no hepatosplenomegaly, no masses. EXTREMITIES: contracted, no edema NEUROLOGICAL: Cranial nerves II through XII grossly intact. Normal speech, gait not observed. PSYCH: confused, agitated SKIN: Warm, dry, normal turgor, no rashes or lesions noted Active Medications Generic Name Dose Route Start Last Admin Trade Name Freq PRN Reason Stop Dose Admin Artificial Tears 1 drop 03/11/17 22:00 03/15/17 22:05 Artificial Tears OU 1 drop HS HOANG Administration Ascorbic Acid 500 mg 03/11/17 10:00 03/16/17 10:34 Vitamin C Oral Solution - GT 500 mg DAILY HOANG Administration Cyanocobalamin 1,000 mcg 03/11/17 10:00 03/16/17 10:33 Vitamin B12 - GT 1,000 mcg DAILY HOANG Administration Heparin Sodium (Porcine) 5,000 unit 03/11/17 10:00 03/16/17 10:33 Heparin - SQ 5,000 unit BID HOANG Administration Ertapenem 1 gm/ Sodium 50 mls @ 100 mls/hr 03/15/17 14:30 03/16/17 11:06 Chloride IVPB 100 mls/hr DAILY HOANG Administration Lactobacillus Acidophilus 1 tab 03/11/17 10:00 03/16/17 10:32 Bacid - GT 1 tab DAILY HOANG Administration Metoprolol Tartrate 75 mg 03/11/17 10:00 03/16/17 10:32 Lopressor - GT 75 mg BID HOANG Administration Ranitidine HCl 150 mg 03/11/17 10:00 03/16/17 10:34 Zantac Oral Solution - GT 150 mg DAILY HOANG Administration Senna 17.6 mg 03/11/17 22:00 03/15/17 22:08 Senna Oral Solution - GT 17.6 mg HS HOANG Administration ASSESSMENT/PLAN: Patient is an 86 year old male with PMHx of HTN, osteoarthritis, dementia, bipolar disorder, depression, 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 He was recently discharged from the hospital to [facility] after treatment for respiratory failure. ID: Severe sepsis, likely due to possible aspiration pneumonia vs.biliary obstruction s/p cholecytostomy Bili fluid cultures shows resistant isolates, Zosyn stopped on 03/15, per ID, started on Ertapenem Blood and urine cultures negative to date Fistulogram to rule out possible fecal content Monitor labs, vitals Cardiology: Hypertension, chronic On Toprol 75mg @ hs Monitor BP Neurology: Agitation Previously given Zyprexa for agitation, monitor F.E.N. Fluids: on tube feeds Electrolytes: hypokalemia, repleted Nutrition: tube feeds Prophylaxis: Heparin BID GI: Zantac Disposition: DNR/DNI. Visit type - Emergency Visit Emergency Visit: Yes ED Registration Date: 03/11/17 Care time: The patient presented to the Emergency Department on the above date and was hospitalized for further evaluation of their emergent condition. - New Patient This patient is new to me today: Yes Date on this admission: 03/16/17 - Critical Care Critical Care patient: No - Discharge Referral Referred to [facility] Med P.C.: No
--- NOTE | 2017-03-16 17:41 | PN ---
Progress Note, Physician History of Present Illness: Remains afebrile. Alert, without acute distress. No new events. - Current Medication List Current Medications: Active Medications Artificial Tears (Artificial Tears) 1 drop OU HS [facility] Last Admin: 03/15/17 22:05 Dose: 1 drop Ascorbic Acid (Vitamin C Oral Solution -) 500 mg GT DAILY [facility] Last Admin: 03/16/17 10:34 Dose: 500 mg Cyanocobalamin (Vitamin B12 -) 1,000 mcg GT DAILY [facility] Last Admin: 03/16/17 10:33 Dose: 1,000 mcg Heparin Sodium (Porcine) (Heparin -) 5,000 unit SQ BID [facility] Last Admin: 03/16/17 10:33 Dose: 5,000 unit Ertapenem 1 gm/ Sodium (Chloride) 50 mls @ 100 mls/hr IVPB DAILY [facility] Last Admin: 03/16/17 11:06 Dose: 100 mls/hr Lactobacillus Acidophilus (Bacid -) 1 tab GT DAILY [facility] Last Admin: 03/16/17 10:32 Dose: 1 tab Metoprolol Tartrate (Lopressor -) 75 mg GT BID [facility] Last Admin: 03/16/17 10:32 Dose: 75 mg Ranitidine HCl (Zantac Oral Solution -) 150 mg GT DAILY [facility] Last Admin: 03/16/17 10:34 Dose: 150 mg Senna (Senna Oral Solution -) 17.6 mg GT HS [facility] Last Admin: 03/15/17 22:08 Dose: 17.6 mg - Objective Vital Signs: Vital Signs Temperature 97.8 F 03/16/17 11:00 Pulse Rate 84 03/16/17 11:00 Respiratory Rate 20 03/16/17 11:00 Blood Pressure 158/84 03/16/17 11:00 O2 Sat by Pulse Oximetry (%) 97 03/16/17 09:00 Constitutional: Yes: No Distress Cardiovascular: Yes: Regular Rate and Rhythm Respiratory: Yes: Diminished (no rhonchi/rales/wheeze) Gastrointestinal: Yes: Normal Bowel Sounds, Soft, Other (RUQ drain with biliary fluid) Extremities: Yes: WNL Labs: CBC, BMP 03/15/17 09:05 03/15/17 09:05 INR, PTT INR 1.31 (0.82-1.09) H 03/10/17 22:40 Problem List - Problems (1) Aspiration pneumonia Code(s): J69.0 - PNEUMONITIS DUE TO INHALATION OF FOOD AND VOMIT (2) Sepsis Code(s): A41.9 - SEPSIS, UNSPECIFIED ORGANISM (3) Dementia with behavioral disturbance Code(s): F03.91 - UNSPECIFIED DEMENTIA WITH BEHAVIORAL DISTURBANCE Qualifiers: Dementia type: unspecified type Qualified Code(s): F03.91 - Unspecified dementia with behavioral disturbance (4) Hypertension Code(s): I10 - ESSENTIAL (PRIMARY) HYPERTENSION Qualifiers: Hypertension type: essential hypertension Qualified Code(s): I10 - Essential (primary) hypertension Assessment/Plan 86 y.o. male recently [place] [facility] [place] treatment for respiratory failure, choledocholithiasis and pancreatitis s/p cholecystosmy , treated with Meropenem/Ampicillin for cholangitis s/p GT readmitted for hypoxia, wheezing, tachycardia, leukocytosis, fever Sepsis - Possible Aspiration PNA Biliary obstruction s/p cholecytostomy - Biliary drain fluid cultures with resistant isolates -continue on Ertapenem - blood cultures/urine cultures so far no growth continue monitor
[2017-03-16] MEDS: SENNOSIDES 8.8 MG/5 ML BULK BOTTLE GT SCH ×2 (21:49→21:50)
[2017-03-16] MEDS: ARTIFICIAL TEARS (POLYVINYL ALCOHOL 1.4%) OPTH DROPS OU SCH (22:00)
[2017-03-17 08:15] LABS: BASO % 0.4 % (0-2.0); MCH 32.3 pg (25.7-33.7); MCHC 33.4 g/dl (32.0-35.9); MEAN CELL VOLUME 96.8 fl (80-96); MEAN PLT VOLUME 8.4 fl (7.5-11.1); NEUT % 67.5 % (42.8-82.8); PLATELET COUNT 236 K/MM3 (134-434); RDW 15.9 % (11.9-15.9); WHITE BLOOD COUNT 13.1 K/mm3 (4.0-10.0)
[2017-03-17 08:36] LABS: ALBUMIN 2.2 g/dl (3.4-5.0); ANION GAP 6 (8-16); CALCIUM 7.7 mg/dL (8.5-10.1); CO2 26 mmol/L (21-32); GLUCOSE,RANDOM 95 mg/dL (74-106)
[2017-03-17 08:39] LABS: ALK PHOS 152 U/L (45-117); BILIRUBIN,TOTAL 0.5 mg/dL (0.2-1.0); CREATININE 0.7 mg/dL (0.7-1.3); SGOT/AST 18 U/L (15-37); SGPT/ALT 29 U/L (12-78); TOT PROT 6.7 g/dl (6.4-8.2)
--- NOTE | 2017-03-17 09:34 | PN ---
Progress Note (short form) - Note Progress Note: Subjective: The patient was seen and examined at the bedside, he is moaning, position changed and is now resting comfortably. Current Medications Generic Name Dose Route Start Last Admin Trade Name Roz PRN Reason Stop Dose Admin Artificial Tears 1 drop 03/11/17 22:00 03/16/17 22:00 Artificial Tears OU Not Given HS HOANG Ascorbic Acid 500 mg 03/11/17 10:00 03/16/17 10:34 Vitamin C Oral Solution - GT 500 mg DAILY HOANG Administration Cyanocobalamin 1,000 mcg 03/11/17 10:00 03/16/17 10:33 Vitamin B12 - GT 1,000 mcg DAILY HOANG Administration Heparin Sodium (Porcine) 5,000 unit 03/11/17 10:00 03/16/17 21:50 Heparin - SQ 5,000 unit BID HOANG Administration Ertapenem 1 gm/ Sodium 50 mls @ 100 mls/hr 03/15/17 14:30 03/16/17 11:06 Chloride IVPB 100 mls/hr DAILY HOANG Administration Lactobacillus Acidophilus 1 tab 03/11/17 10:00 03/16/17 10:32 Bacid - GT 1 tab DAILY HOANG Administration Metoprolol Tartrate 75 mg 03/11/17 10:00 03/16/17 21:49 Lopressor - GT 75 mg BID HOANG Administration Ranitidine HCl 150 mg 03/11/17 10:00 03/16/17 10:34 Zantac Oral Solution - GT 150 mg DAILY HOANG Administration Senna 17.6 mg 03/11/17 22:00 03/16/17 21:50 Senna Oral Solution - GT 17.6 mg HS HOANG Administration Objective: Vital Signs Period Temp Pulse Resp BP Sys/Hernandez Pulse Ox Last 24 Hr 97.6 F-99.6 F 81-86 20-20 153-177/82-87 Physical Exam: General: NAD, non-verbal Lungs: Rhonchi bilaterally Abd: Right CARMELITA with biliary drainage. + PEG, abdominal binder Ext: Contracted Neuro: Non-verbal CBCD WBC 13.1 K/mm3 (4.0-10.0) H D 03/17/17 06:30 RBC 3.34 M/mm3 (4.00-5.60) L D 03/17/17 06:30 Hgb 10.8 GM/dL (11.7-16.9) L D 03/17/17 06:30 Hct 32.4 % (35.4-49) L D 03/17/17 06:30 MCV 96.8 fl (80-96) H 03/17/17 06:30 MCHC 33.4 g/dl (32.0-35.9) 03/17/17 06:30 RDW 15.9 % (11.9-15.9) 03/17/17 06:30 Plt Count 236 K/MM3 (134-434) 03/17/17 06:30 MPV 8.4 fl (7.5-11.1) 03/17/17 06:30 CMP Sodium 140 mmol/L (136-145) 03/17/17 06:30 Potassium 4.4 mmol/L (3.5-5.1) D 03/17/17 06:30 Chloride 108 mmol/L (98-107) H 03/17/17 06:30 Carbon Dioxide 26 mmol/L (21-32) 03/17/17 06:30 Anion Gap 6 (8-16) L 03/17/17 06:30 BUN 20 mg/dL (7-18) H 03/17/17 06:30 Creatinine 0.7 mg/dL (0.7-1.3) D 03/17/17 06:30 Creat Clearance w eGFR > 60 (>60) 03/17/17 06:30 Random Glucose 95 mg/dL (74-106) 03/17/17 06:30 Calcium 7.7 mg/dL (8.5-10.1) L 03/17/17 06:30 Total Bilirubin 0.5 mg/dL (0.2-1.0) D 03/17/17 06:30 AST 18 U/L (15-37) D 03/17/17 06:30 ALT 29 U/L (12-78) 03/17/17 06:30 Alkaline Phosphatase 152 U/L (45-117) H 03/17/17 06:30 Total Protein 6.7 g/dl (6.4-8.2) 03/17/17 06:30 Albumin 2.2 g/dl (3.4-5.0) L 03/17/17 06:30 CARDIAC ENZYMES Creatine Kinase 63 IU/L (39-308) 03/10/17 22:40 Troponin I < 0.02 ng/ml (0.00-0.05) 03/10/17 22:40 Microbiology 03/10/17 22:30 Blood - Peripheral Venous Blood Culture - Final NO GROWTH AFTER 5 DAYS INCUBATION 03/10/17 22:40 Blood - Peripheral Venous Blood Culture - Final NO GROWTH AFTER 5 DAYS INCUBATION 03/12/17 12:30 Drainage Gram Stain - Final 03/12/17 12:30 Drainage Body Fluid Culture - Final Escherichia Coli Esbl Electric Range Servicer Acinetobacter Baumannii/Haemol Streptococcus Viridans Diphtheroid/Corynebacterium 03/12/17 12:30 Drainage Anaerobic Culture - Final NO ANAEROBES WERE ISOLATED 03/10/17 22:14 Urine - Urine - Catheterized Urine Culture - Final Assessment: This is an 86 year old male with PMHx of HTN, osteoarthritis, dementia, bipolar disorder, depression, ascending cholangitis (s/p percutaneous cholecystostomy 02/02/17), G-tube placement 03/02/17, who presented to the ED with suspected aspiration pneumonia Plan: 1) Severe sepsis 2/2 suspected aspiration pneumonia vs. recurrent cholangitis - Bile culture as above - Blood cultures with NGTD - On Ertapenem per ID - Appreciate ID consult 2) Percutaneous cholecystostomy tube with possible fecal content - F/u fistulagram to r/o fistula from cholecystostomy tube to colon 3) HTN - Increase Lopressor to 100mg gt bid 4) F/E/N: - Two gabriel tube feeds - IV fluids - Monitor electrolytes 5) Prophylaxis: - Heparin 5,000u sq bid 6) Dispo: - Requires continued inpatient care CODE STATUS: DNR/DNI Visit type - Emergency Visit Emergency Visit: Yes ED Registration Date: 03/11/17 Care time: The patient presented to the Emergency Department on the above date and was hospitalized for further evaluation of their emergent condition. - New Patient This patient is new to me today: No - Critical Care Critical Care patient: No
[2017-03-17] MEDS ORDERED: PT OWN MED DRAWER 7, Y5N ONE ×2 (10:17→20:47)
[2017-03-17] MEDS: RANITIDINE HCL 150 MG/10 ML UNIT-DOSE GT SCH (10:20)
[2017-03-17] MEDS: METOPROLOL TARTRATE 50 MG TABLET (FP) GT SCH ×2 (10:20→21:02)
[2017-03-17] MEDS: ASCORBIC ACID 500 MG/5 ML UNIT DOSE CUP GT SCH (10:21)
[2017-03-17] MEDS: LACTOBACILLUS ACIDOPHILUS 1 EACH TAB (FP) GT SCH (10:21)
[2017-03-17] MEDS: CYANOCOBALAMIN 1,000 MCG TABLET (FP) GT SCH (10:21)
[2017-03-17] MEDS: HEPARIN NA (PORCINE) 5,000 UNITS/ML 1ML VIAL SQ SCH ×2 (11:52→21:01)
[2017-03-17] MEDS: ERTAPENEM SODIUM 1 GM in SODIUM CHLORIDE 50 ML IVPB SCH (11:53)
--- NOTE | 2017-03-17 14:14 | PN ---
Progress Note, Physician History of Present Illness: Pt arousable, without acute distress. Had fistulogram done. Mild temp elevation to 99.6F. - Current Medication List Current Medications: Active Medications Artificial Tears (Artificial Tears) 1 drop OU HS [facility] Last Admin: 03/16/17 22:00 Dose: Not Given Ascorbic Acid (Vitamin C Oral Solution -) 500 mg GT DAILY [facility] Last Admin: 03/17/17 10:21 Dose: 500 mg Cyanocobalamin (Vitamin B12 -) 1,000 mcg GT DAILY [facility] Last Admin: 03/17/17 10:21 Dose: 1,000 mcg Heparin Sodium (Porcine) (Heparin -) 5,000 unit SQ BID [facility] Last Admin: 03/17/17 11:52 Dose: 5,000 unit Ertapenem 1 gm/ Sodium (Chloride) 50 mls @ 100 mls/hr IVPB DAILY [facility] Last Admin: 03/17/17 11:53 Dose: 100 mls/hr Lactobacillus Acidophilus (Bacid -) 1 tab GT DAILY [facility] Last Admin: 03/17/17 10:21 Dose: 1 tab Metoprolol Tartrate (Lopressor -) 100 mg GT BID [facility] Last Admin: 03/17/17 10:20 Dose: 100 mg Ranitidine HCl (Zantac Oral Solution -) 150 mg GT DAILY [facility] Last Admin: 03/17/17 10:20 Dose: 150 mg Senna (Senna Oral Solution -) 17.6 mg GT HS [facility] Last Admin: 03/16/17 21:50 Dose: 17.6 mg - Objective Vital Signs: Vital Signs Temperature 99.6 F 03/17/17 07:05 Pulse Rate 73 03/17/17 11:57 Respiratory Rate 20 03/17/17 11:57 Blood Pressure 162/79 03/17/17 11:57 O2 Sat by Pulse Oximetry (%) 97 03/16/17 09:00 Constitutional: Yes: No Distress Neck: Yes: Supple Cardiovascular: Yes: Regular Rate and Rhythm Respiratory: Yes: Regular Gastrointestinal: Yes: Normal Bowel Sounds, Soft, Other (RUQ drain with bilious fluid, GT in place) Labs: CBC, BMP 03/17/17 06:30 03/17/17 06:30 INR, PTT INR 1.31 (0.82-1.09) H 03/10/17 22:40 Problem List - Problems (1) Aspiration pneumonia Code(s): J69.0 - PNEUMONITIS DUE TO INHALATION OF FOOD AND VOMIT (2) Sepsis Code(s): A41.9 - SEPSIS, UNSPECIFIED ORGANISM (3) Dementia with behavioral disturbance Code(s): F03.91 - UNSPECIFIED DEMENTIA WITH BEHAVIORAL DISTURBANCE Qualifiers: Dementia type: unspecified type Qualified Code(s): F03.91 - Unspecified dementia with behavioral disturbance (4) Hypertension Code(s): I10 - ESSENTIAL (PRIMARY) HYPERTENSION Qualifiers: Hypertension type: essential hypertension Qualified Code(s): I10 - Essential (primary) hypertension Assessment/Plan 86 y.o. male recently discharged from the hospital to the [place] after treatment for respiratory failure, choledocholithiasis and pancreatitis s/p cholecystosmy , treated with Meropenem/Ampicillin for cholangitis s/p GT readmitted for hypoxia, wheezing, tachycardia, leukocytosis, fever Sepsis - Possible Aspiration PNA Biliary obstruction s/p cholecytostomy - Biliary drain fluid cultures with resistant isolates -continue on Ertapenem for now - monitor wbc trend, temps closely - slightly elevated today - f/u study results continue monitor
[2017-03-17] MEDS: SENNOSIDES 8.8 MG/5 ML BULK BOTTLE GT SCH (21:01)
[2017-03-17] MEDS: ARTIFICIAL TEARS (POLYVINYL ALCOHOL 1.4%) OPTH DROPS OU SCH (21:04)
[2017-03-18 09:36] LABS: BASO % 0.6 % (0-2.0); EOS % 6.6 % (0-4.5); MCH 32.7 pg (25.7-33.7); MCHC 33.3 g/dl (32.0-35.9); MEAN CELL VOLUME 98.1 fl (80-96); MEAN PLT VOLUME 8.3 fl (7.5-11.1); PLATELET COUNT 230 K/MM3 (134-434); RDW 16.4 % (11.9-15.9); WHITE BLOOD COUNT 8.9 K/mm3 (4.0-10.0)
[2017-03-18] MEDS ORDERED: PT OWN MED DRAWER 7, Y5N ONE ×2 (10:16→11:42)
[2017-03-18 10:19] LABS: ALBUMIN 2.2 g/dl (3.4-5.0); ALK PHOS 156 U/L (45-117); ANION GAP 8 (8-16); BILIRUBIN,TOTAL 0.5 mg/dL (0.2-1.0); CALCIUM 8.3 mg/dL (8.5-10.1); CO2 27 mmol/L (21-32); CREATININE 0.9 mg/dL (0.7-1.3); GLUCOSE,RANDOM 108 mg/dL (74-106); SGOT/AST 16 U/L (15-37); SGPT/ALT 26 U/L (12-78); TOT PROT 6.6 g/dl (6.4-8.2)
[2017-03-18] MEDS: HEPARIN NA (PORCINE) 5,000 UNITS/ML 1ML VIAL SQ SCH ×2 (10:20→21:40)
[2017-03-18] MEDS: ERTAPENEM SODIUM 1 GM in SODIUM CHLORIDE 50 ML IVPB SCH (10:20)
[2017-03-18] MEDS: LACTOBACILLUS ACIDOPHILUS 1 EACH TAB (FP) GT SCH (10:20)
[2017-03-18] MEDS: RANITIDINE HCL 150 MG/10 ML UNIT-DOSE GT SCH (10:21)
[2017-03-18] MEDS: METOPROLOL TARTRATE 50 MG TABLET (FP) GT SCH ×2 (10:21→21:40)
[2017-03-18] MEDS: CYANOCOBALAMIN 1,000 MCG TABLET (FP) GT SCH (10:21)
[2017-03-18] MEDS: ASCORBIC ACID 500 MG/5 ML UNIT DOSE CUP GT SCH (10:21)
--- NOTE | 2017-03-18 12:53 | DS ---
Physical Examination Vital Signs: Vital Signs Temperature 98.8 F 03/18/17 09:00 Pulse Rate 76 03/18/17 09:00 Respiratory Rate 20 03/18/17 09:00 Blood Pressure 150/70 03/18/17 09:00 O2 Sat by Pulse Oximetry (%) 97 03/17/17 21:00 Labs: CBC, BMP 03/18/17 09:15 03/18/17 09:15 Discharge Summary Reason For Visit: ASPIRATION PNEUMONIA/SEPSIS/HYPERKALEMIA Current Active Problems Aspiration pneumonia (Acute) Hyperkalemia (Acute) Sepsis (Acute) Hospital Course: Spoke to Dr. Ponce, no fistula present on fistulagram. Cholecystotomy in good placement. Spoke to Dr. Glass, recommendation for PICC line and complete 10 day course of Ertapenem Condition: Improved - Instructions Diet, Activity, Other Instructions: Please return to the ED with new, persistent, or worsening symptoms. Please follow-up with providers as indicated. Continue Ertapenem 1g daily through 03/24/17. Tube feeds: Two gabriel 48ml/hr with water flushes 48ml/hr Monitor for aspiration Referrals: Hoa Chadwick MD [Staff Physician] - 1 Week Iftikhar Valentino MD [Staff Physician] - 1 Week Disposition: SNF FACILITY - Home Medications Comprehensive Discharge Medication List: Ambulatory Orders Acetaminophen [Tylenol Extra Strength] 500 mg PO DAILY 03/11/17 Albuterol 2.5/Ipratropium 0.5 [Duoneb -] 1 neb IH QID 03/11/17 Alprazolam [Xanax] 0.25 mg PO Q6H 03/11/17 Ascorbate Calcium [Vitamin C] 500 mg PO DAILY 03/11/17 Cyanocobalamin (Vitamin B-12) [Vitamin B-12] 1,000 mcg PO DAILY 03/11/17 Hypromellose 0.5% Opth Soln [Artificial Tears] 1 drop DAILY 03/11/17 Lactobacillus Acidophilus [Acidophilus] 100 mg PO DAILY 03/11/17 Levofloxacin [Levaquin] 500 mg PO DAILY 03/11/17 Ranitidine Oral Solution [Zantac] 150 mg GT DAILY 03/11/17 Sennosides [Senna] 8.6 mg PO DAILY 03/11/17 Ertapenem Sodium - 1 Gram [Invanz (Pre-Docked)] 1 gm IVPB DAILY #6 bag 03/18/17 - Discharge Referral Referred to [facility] No
--- NOTE | 2017-03-18 13:29 | PN ---
Progress Note (short form) - Note Progress Note: Subjective: The patient was seen and examined at the bedside, he is moaning, position changed and is now resting comfortably. Spoke to Dr. Ponce, no fistula present on fistulagram. Cholecystotomy in good placement. Spoke to Dr. Glass, recommendation for PICC line and complete 10 day course of Ertapenem Current Medications Generic Name Dose Route Start Last Admin Trade Name Freq PRN Reason Stop Dose Admin Artificial Tears 1 drop 03/11/17 22:00 03/17/17 21:04 Artificial Tears OU Not Given HS HOANG Ascorbic Acid 500 mg 03/11/17 10:00 03/18/17 10:21 Vitamin C Oral Solution - GT 500 mg DAILY HOANG Administration Cyanocobalamin 1,000 mcg 03/11/17 10:00 03/18/17 10:21 Vitamin B12 - GT 1,000 mcg DAILY HOANG Administration Heparin Sodium (Porcine) 5,000 unit 03/11/17 10:00 03/18/17 10:20 Heparin - SQ 5,000 unit BID HOANG Administration IV Flush 8 ml 03/18/17 12:37 Picc Line Flush IVPUSH PRN PRN Protocol Ertapenem 1 gm/ Sodium 50 mls @ 100 mls/hr 03/15/17 14:30 03/18/17 10:20 Chloride IVPB 100 mls/hr DAILY HOANG Administration Lactobacillus Acidophilus 1 tab 03/11/17 10:00 03/18/17 10:20 Bacid - GT 1 tab DAILY HOANG Administration Metoprolol Tartrate 100 mg 03/17/17 09:39 03/18/17 10:21 Lopressor - GT 100 mg BID HOANG Administration Ranitidine HCl 150 mg 03/11/17 10:00 03/18/17 10:21 Zantac Oral Solution - GT 150 mg DAILY HOANG Administration Senna 17.6 mg 03/11/17 22:00 03/17/17 21:01 Senna Oral Solution - GT 17.6 mg HS HOANG Administration Objective: Vital Signs Period Temp Pulse Resp BP Sys/Hernandez Pulse Ox Last 24 Hr 98.8 F-99.4 F 66-76 16-20 135-153/66-86 97-97 Physical Exam: General: NAD, non-verbal Lungs: Rhonchi bilaterally Abd: Right CARMELITA with biliary drainage. + PEG, abdominal binder Ext: Contracted Neuro: Non-verbal CBCD WBC 8.9 K/mm3 (4.0-10.0) D 03/18/17 09:15 RBC 3.10 M/mm3 (4.00-5.60) L 03/18/17 09:15 Hgb 10.1 GM/dL (11.7-16.9) L 03/18/17 09:15 Hct 30.4 % (35.4-49) L 03/18/17 09:15 MCV 98.1 fl (80-96) H 03/18/17 09:15 MCHC 33.3 g/dl (32.0-35.9) 03/18/17 09:15 RDW 16.4 % (11.9-15.9) H 03/18/17 09:15 Plt Count 230 K/MM3 (134-434) 03/18/17 09:15 MPV 8.3 fl (7.5-11.1) 03/18/17 09:15 CMP Sodium 142 mmol/L (136-145) 03/18/17 09:15 Potassium 5.0 mmol/L (3.5-5.1) 03/18/17 09:15 Chloride 107 mmol/L (98-107) 03/18/17 09:15 Carbon Dioxide 27 mmol/L (21-32) 03/18/17 09:15 Anion Gap 8 (8-16) 03/18/17 09:15 BUN 28 mg/dL (7-18) H D 03/18/17 09:15 Creatinine 0.9 mg/dL (0.7-1.3) D 03/18/17 09:15 Creat Clearance w eGFR > 60 (>60) 03/18/17 09:15 Random Glucose 108 mg/dL (74-106) H 03/18/17 09:15 Calcium 8.3 mg/dL (8.5-10.1) L 03/18/17 09:15 Total Bilirubin 0.5 mg/dL (0.2-1.0) 03/18/17 09:15 AST 16 U/L (15-37) 03/18/17 09:15 ALT 26 U/L (12-78) 03/18/17 09:15 Alkaline Phosphatase 156 U/L (45-117) H 03/18/17 09:15 Total Protein 6.6 g/dl (6.4-8.2) 03/18/17 09:15 Albumin 2.2 g/dl (3.4-5.0) L 03/18/17 09:15 CARDIAC ENZYMES Creatine Kinase 63 IU/L (39-308) 03/10/17 22:40 Troponin I < 0.02 ng/ml (0.00-0.05) 03/10/17 22:40 Microbiology 03/10/17 22:30 Blood - Peripheral Venous Blood Culture - Final NO GROWTH AFTER 5 DAYS INCUBATION 03/10/17 22:40 Blood - Peripheral Venous Blood Culture - Final NO GROWTH AFTER 5 DAYS INCUBATION 03/12/17 12:30 Drainage Gram Stain - Final 03/12/17 12:30 Drainage Body Fluid Culture - Final Escherichia Coli Esbl Retouching Operator Acinetobacter Baumannii/Haemol Streptococcus Viridans Diphtheroid/Corynebacterium 03/12/17 12:30 Drainage Anaerobic Culture - Final NO ANAEROBES WERE ISOLATED 03/10/17 22:14 Urine - Urine - Catheterized Urine Culture - Final Assessment: This is an 86 year old male with PMHx of HTN, osteoarthritis, dementia, bipolar disorder, depression, ascending cholangitis (s/p percutaneous cholecystostomy 02/02/17), G-tube placement 03/02/17, who presented to the ED with suspected aspiration pneumonia Plan: 1) Severe sepsis 2/2 suspected aspiration pneumonia vs. recurrent cholangitis - Bile culture as above - Blood cultures with NGTD - On Ertapenem per ID will need to complete 10 days total - Appreciate ID consult 2) Percutaneous cholecystostomy tube with possible fecal content - Discussed fistulagram with Dr. Ponce, no fistula seen. Cholecystostomy tube in correct place 3) HTN - Continue Lopressor to 100mg gt bid 4) F/E/N: - Two gabriel tube feeds - IV fluids - Monitor electrolytes 5) Prophylaxis: - Heparin 5,000u sq bid 6) Dispo: - Requires continued inpatient care CODE STATUS: DNR/DNI Visit type - Emergency Visit Emergency Visit: Yes ED Registration Date: 03/11/17 Care time: The patient presented to the Emergency Department on the above date and was hospitalized for further evaluation of their emergent condition. - New Patient This patient is new to me today: No - Critical Care Critical Care patient: No
--- NOTE | 2017-03-18 13:41 | PN ---
Progress Note, Physician History of Present Illness: Pt without any noted distress. Currently afebrile. No biliary-colonic fistula reported. - Current Medication List Current Medications: Active Medications Artificial Tears (Artificial Tears) 1 drop OU HS [facility] Last Admin: 03/17/17 21:04 Dose: Not Given Ascorbic Acid (Vitamin C Oral Solution -) 500 mg GT DAILY [facility] Last Admin: 03/18/17 10:21 Dose: 500 mg Cyanocobalamin (Vitamin B12 -) 1,000 mcg GT DAILY [facility] Last Admin: 03/18/17 10:21 Dose: 1,000 mcg Heparin Sodium (Porcine) (Heparin -) 5,000 unit SQ BID [facility] Last Admin: 03/18/17 10:20 Dose: 5,000 unit IV Flush (Picc Line Flush) 8 ml IVPUSH PRN PRN PRN Reason: Protocol Ertapenem 1 gm/ Sodium (Chloride) 50 mls @ 100 mls/hr IVPB DAILY [facility] Last Admin: 03/18/17 10:20 Dose: 100 mls/hr Lactobacillus Acidophilus (Bacid -) 1 tab GT DAILY [facility] Last Admin: 03/18/17 10:20 Dose: 1 tab Metoprolol Tartrate (Lopressor -) 100 mg GT BID [facility] Last Admin: 03/18/17 10:21 Dose: 100 mg Ranitidine HCl (Zantac Oral Solution -) 150 mg GT DAILY [facility] Last Admin: 03/18/17 10:21 Dose: 150 mg Senna (Senna Oral Solution -) 17.6 mg GT HS [facility] Last Admin: 03/17/17 21:01 Dose: 17.6 mg - Objective Vital Signs: Vital Signs Temperature 98.8 F 03/18/17 09:00 Pulse Rate 76 03/18/17 09:00 Respiratory Rate 20 03/18/17 09:00 Blood Pressure 150/70 03/18/17 09:00 O2 Sat by Pulse Oximetry (%) 97 03/18/17 09:00 Constitutional: Yes: No Distress Cardiovascular: Yes: Regular Rate and Rhythm Respiratory: Yes: Regular Gastrointestinal: Yes: Normal Bowel Sounds, Soft, Other (RUQ drain with bilious fluid. GT in place.) Extremities: Yes: WNL Neurological: Yes: Other (arousable with stimuli, demented) Labs: CBC, BMP 03/18/17 09:15 03/18/17 09:15 INR, PTT INR 1.31 (0.82-1.09) H 03/10/17 22:40 Problem List - Problems (1) Aspiration pneumonia Code(s): J69.0 - PNEUMONITIS DUE TO INHALATION OF FOOD AND VOMIT (2) Sepsis Code(s): A41.9 - SEPSIS, UNSPECIFIED ORGANISM (3) Dementia with behavioral disturbance Code(s): F03.91 - UNSPECIFIED DEMENTIA WITH BEHAVIORAL DISTURBANCE Qualifiers: Qualified Code(s): F03.91 - Unspecified dementia with behavioral disturbance (4) Hypertension Code(s): I10 - ESSENTIAL (PRIMARY) HYPERTENSION Qualifiers: Qualified Code(s): I10 - Essential (primary) hypertension Assessment/Plan 86 y.o. male recently discharged from the hospital to the [facility] after treatment for respiratory failure, choledocholithiasis and pancreatitis s/p cholecystosmy , treated with Meropenem/Ampicillin for cholangitis s/p GT readmitted for hypoxia, wheezing, tachycardia, leukocytosis, fever Sepsis - Possible Aspiration PNA Biliary obstruction s/p cholecytostomy - Biliary drain fluid cultures with resistant isolates , no fistula noted on imaging - pt afebrile, leukocytosis resolved - recommend continue Ertapenem to complete course as d/w [employer]
[2017-03-18] MEDS: SENNOSIDES 8.8 MG/5 ML BULK BOTTLE GT SCH (21:39)
[2017-03-18] MEDS: ARTIFICIAL TEARS (POLYVINYL ALCOHOL 1.4%) OPTH DROPS OU SCH (21:50)
[2017-03-19 08:56] LABS: MCH 32.5 pg (25.7-33.7); MCHC 33.1 g/dl (32.0-35.9); MEAN CELL VOLUME 98.1 fl (80-96); MEAN PLT VOLUME 8.8 fl (7.5-11.1); PLATELET COUNT 270 K/MM3 (134-434); RDW 16.5 % (11.9-15.9); WHITE BLOOD COUNT 9.8 K/mm3 (4.0-10.0)
[2017-03-19 09:19] LABS: ALBUMIN 2.4 g/dl (3.4-5.0); ANION GAP 9 (8-16); BILIRUBIN,TOTAL 0.4 mg/dL (0.2-1.0); CALCIUM 8.3 mg/dL (8.5-10.1); CO2 27 mmol/L (21-32); CREATININE 0.9 mg/dL (0.7-1.3); GLUCOSE,RANDOM 101 mg/dL (74-106); SGOT/AST 20 U/L (15-37); SGPT/ALT 28 U/L (12-78); TOT PROT 7.1 g/dl (6.4-8.2)
[2017-03-19 09:20] LABS: ALK PHOS 173 U/L (45-117)
--- NOTE | 2017-03-19 09:24 | PN ---
Progress Note (short form) - Note Progress Note: Subjective: The patient was seen and examined at the bedside, he is stating he has pain all over and that he wants to be repositioned. Position in bed changed and he states he feels better. He then began speaking Bahraini and mumbling Current Medications Generic Name Dose Route Start Last Admin Trade Name Freq PRN Reason Stop Dose Admin Artificial Tears 1 drop 03/11/17 22:00 03/18/17 21:50 Artificial Tears OU Not Given HS [facility]ANG Ascorbic Acid 500 mg 03/11/17 10:00 03/18/17 10:21 Vitamin C Oral Solution - GT 500 mg DAILY [facility] Administration Cyanocobalamin 1,000 mcg 03/11/17 10:00 03/18/17 10:21 Vitamin B12 - GT 1,000 mcg DAILY [facility] Administration Heparin Sodium (Porcine) 5,000 unit 03/11/17 10:00 03/18/17 21:40 Heparin - SQ 5,000 unit BID HOANG Administration IV Flush 8 ml 03/18/17 12:37 Picc Line Flush IVPUSH PRN PRN Protocol Ertapenem 1 gm/ Sodium 50 mls @ 100 mls/hr 03/15/17 14:30 03/18/17 10:20 Chloride IVPB 100 mls/hr DAILY [facility] Administration Lactobacillus Acidophilus 1 tab 03/11/17 10:00 03/18/17 10:20 Bacid - GT 1 tab DAILY [facility] Administration Metoprolol Tartrate 100 mg 03/17/17 09:39 03/18/17 21:40 Lopressor - GT 100 mg BID HOANG Administration Ranitidine HCl 150 mg 03/11/17 10:00 03/18/17 10:21 Zantac Oral Solution - GT 150 mg DAILY [facility] Administration Senna 17.6 mg 03/11/17 22:00 03/18/17 21:39 Senna Oral Solution - GT 17.6 mg HS HOANG Administration Objective: Vital Signs Period Temp Pulse Resp BP Sys/Hernandez Pulse Ox Last 24 Hr 98.7 F-99.2 F 68-78 16-18 120-136/65-78 97 Physical Exam: General: NAD, speaking mix of kinyarwanda and amharic Lungs: mild rhonchi bilaterally anteriorly Abd: Right CARMELITA with biliary drainage. + PEG, abdominal binder Ext: Contracted Neuro: Non-verbal CBCD WBC 9.8 K/mm3 (4.0-10.0) 03/19/17 08:44 RBC 3.43 M/mm3 (4.00-5.60) L 03/19/17 08:44 Hgb 11.1 GM/dL (11.7-16.9) L 03/19/17 08:44 Hct 33.7 % (35.4-49) L 03/19/17 08:44 MCV 98.1 fl (80-96) H 03/19/17 08:44 MCHC 33.1 g/dl (32.0-35.9) 03/19/17 08:44 RDW 16.5 % (11.9-15.9) H 03/19/17 08:44 Plt Count 270 K/MM3 (134-434) 03/19/17 08:44 MPV 8.8 fl (7.5-11.1) 03/19/17 08:44 CMP Sodium 140 mmol/L (136-145) 03/19/17 08:44 Potassium 5.1 mmol/L (3.5-5.1) 03/19/17 08:44 Chloride 104 mmol/L (98-107) 03/19/17 08:44 Carbon Dioxide 27 mmol/L (21-32) 03/19/17 08:44 Anion Gap 9 (8-16) 03/19/17 08:44 BUN 37 mg/dL (7-18) H D 03/19/17 08:44 Creatinine 0.9 mg/dL (0.7-1.3) 03/19/17 08:44 Creat Clearance w eGFR > 60 (>60) 03/19/17 08:44 Random Glucose 101 mg/dL (74-106) 03/19/17 08:44 Calcium 8.3 mg/dL (8.5-10.1) L 03/19/17 08:44 Total Bilirubin 0.4 mg/dL (0.2-1.0) 03/19/17 08:44 AST 20 U/L (15-37) D 03/19/17 08:44 ALT 28 U/L (12-78) 03/19/17 08:44 Alkaline Phosphatase 173 U/L (45-117) H 03/19/17 08:44 Total Protein 7.1 g/dl (6.4-8.2) 03/19/17 08:44 Albumin 2.4 g/dl (3.4-5.0) L 03/19/17 08:44 CARDIAC ENZYMES Creatine Kinase 63 IU/L (39-308) 03/10/17 22:40 Troponin I < 0.02 ng/ml (0.00-0.05) 03/10/17 22:40 Microbiology 03/10/17 22:30 Blood - Peripheral Venous Blood Culture - Final NO GROWTH AFTER 5 DAYS INCUBATION 03/10/17 22:40 Blood - Peripheral Venous Blood Culture - Final NO GROWTH AFTER 5 DAYS INCUBATION 03/12/17 12:30 Drainage Gram Stain - Final 03/12/17 12:30 Drainage Body Fluid Culture - Final Escherichia Coli Esbl Marketing Sales Representative Acinetobacter Baumannii/Haemol Streptococcus Viridans Diphtheroid/Corynebacterium 03/12/17 12:30 Drainage Anaerobic Culture - Final NO ANAEROBES WERE ISOLATED 03/10/17 22:14 Urine - Urine - Catheterized Urine Culture - Final Assessment: This is an 86 year old male with PMHx of HTN, osteoarthritis, dementia, bipolar disorder, depression, ascending cholangitis (s/p percutaneous cholecystostomy 02/02/17), G-tube placement 03/02/17, who presented to the ED with suspected aspiration pneumonia Plan: 1) Severe sepsis 2/2 suspected aspiration pneumonia vs. recurrent cholangitis - Bile culture as above - Blood cultures with NGTD - On Ertapenem per ID will need to complete 10 days total (Last dose on 03/24) - Appreciate ID consult 2) Percutaneous cholecystostomy tube with possible fecal content - Discussed fistulagram with Dr. Ponce, no fistula seen. Cholecystostomy tube in correct place 3) HTN - Continue Lopressor to 100mg gt bid 4) F/E/N: - Two gabriel tube feeds - IV fluids - Monitor electrolytes 5) Prophylaxis: - Heparin 5,000u sq bid 6) Dispo: - Requires continued inpatient care CODE STATUS: DNR/DNI Visit type - Emergency Visit Emergency Visit: Yes ED Registration Date: 03/11/17 Care time: The patient presented to the Emergency Department on the above date and was hospitalized for further evaluation of their emergent condition. - New Patient This patient is new to me today: No - Critical Care Critical Care patient: No
[2017-03-19] MEDS: HEPARIN NA (PORCINE) 5,000 UNITS/ML 1ML VIAL SQ SCH ×2 (10:43→22:31)
[2017-03-19] MEDS: LACTOBACILLUS ACIDOPHILUS 1 EACH TAB (FP) GT SCH (10:43)
[2017-03-19] MEDS: CYANOCOBALAMIN 1,000 MCG TABLET (FP) GT SCH (10:44)
[2017-03-19] MEDS: ERTAPENEM SODIUM 1 GM in SODIUM CHLORIDE 50 ML IVPB SCH (10:44)
[2017-03-19] MEDS: METOPROLOL TARTRATE 50 MG TABLET (FP) GT SCH ×2 (10:44→22:31)
[2017-03-19] MEDS: ASCORBIC ACID 500 MG/5 ML UNIT DOSE CUP GT SCH (10:45)
[2017-03-19] MEDS: RANITIDINE HCL 150 MG/10 ML UNIT-DOSE GT SCH (10:45)
--- NOTE | 2017-03-19 15:05 | PN ---
Progress Note, Physician History of Present Illness: Pt clinically the same, afebrile, arousable without acute distress. - Current Medication List Current Medications: Active Medications Artificial Tears (Artificial Tears) 1 drop OU HS ON LICENSE OF [facility] Last Admin: 03/18/17 21:50 Dose: Not Given Ascorbic Acid (Vitamin C Oral Solution -) 500 mg GT DAILY ON LICENSE OF [facility] Last Admin: 03/19/17 10:45 Dose: 500 mg Cyanocobalamin (Vitamin B12 -) 1,000 mcg GT DAILY ON LICENSE OF [facility] Last Admin: 03/19/17 10:44 Dose: 1,000 mcg Heparin Sodium (Porcine) (Heparin -) 5,000 unit SQ BID ON LICENSE OF [facility] Last Admin: 03/19/17 10:43 Dose: 5,000 unit IV Flush (Picc Line Flush) 8 ml IVPUSH PRN PRN PRN Reason: Protocol Ertapenem 1 gm/ Sodium (Chloride) 50 mls @ 100 mls/hr IVPB DAILY ON LICENSE OF [facility] Last Admin: 03/19/17 10:44 Dose: 100 mls/hr Lactobacillus Acidophilus (Bacid -) 1 tab GT DAILY ON LICENSE OF [facility] Last Admin: 03/19/17 10:43 Dose: 1 tab Metoprolol Tartrate (Lopressor -) 100 mg GT BID ON LICENSE OF [facility] Last Admin: 03/19/17 10:44 Dose: 100 mg Ranitidine HCl (Zantac Oral Solution -) 150 mg GT DAILY ON LICENSE OF [facility] Last Admin: 03/19/17 10:45 Dose: 150 mg Senna (Senna Oral Solution -) 17.6 mg GT HS ON LICENSE OF [facility] Last Admin: 03/18/17 21:39 Dose: 17.6 mg - Objective Vital Signs: Vital Signs Temperature 98.7 F 03/19/17 05:53 Pulse Rate 100 H 03/19/17 10:00 Respiratory Rate 20 03/19/17 10:00 Blood Pressure 140/80 03/19/17 10:00 O2 Sat by Pulse Oximetry (%) 97 03/18/17 21:00 Constitutional: Yes: No Distress Cardiovascular: Yes: Regular Rate and Rhythm Respiratory: Yes: Regular Gastrointestinal: Yes: Normal Bowel Sounds, Soft, Other (RUQ drain with bilious output) Labs: CBC, BMP 03/19/17 08:44 03/19/17 08:44 INR, PTT INR 1.31 (0.82-1.09) H 12/06/17 22:40 Problem List - Problems (1) Aspiration pneumonia Code(s): J69.0 - PNEUMONITIS DUE TO INHALATION OF FOOD AND VOMIT (2) Sepsis Code(s): A41.9 - SEPSIS, UNSPECIFIED ORGANISM (3) Dementia with behavioral disturbance Code(s): F03.91 - UNSPECIFIED DEMENTIA WITH BEHAVIORAL DISTURBANCE Qualifiers: Dementia type: unspecified type Qualified Code(s): F03.91 - Unspecified dementia with behavioral disturbance (4) Hypertension Code(s): I10 - ESSENTIAL (PRIMARY) HYPERTENSION Qualifiers: Hypertension type: essential hypertension Qualified Code(s): I10 - Essential (primary) hypertension Assessment/Plan 86 y.o. male recently discharged from the hospital to the [facility] after treatment for respiratory failure, choledocholithiasis and pancreatitis s/p cholecystosmy , treated with Meropenem/Ampicillin for cholangitis s/p GT readmitted for hypoxia, wheezing, tachycardia, leukocytosis, fever Sepsis - Possible Aspiration PNA Biliary obstruction s/p cholecytostomy - Biliary drain fluid cultures with resistant isolates - pt afebrile, leukocytosis resolved - recommend continue Ertapenem to complete course cont monitor
[2017-03-19] MEDS: SENNOSIDES 8.8 MG/5 ML BULK BOTTLE GT SCH (22:30)
[2017-03-19] MEDS: ARTIFICIAL TEARS (POLYVINYL ALCOHOL 1.4%) OPTH DROPS OU SCH (22:31)
[2017-03-20 07:39] LABS: BASO % 0.6 % (0-2.0); EOS % 3.5 % (0-4.5); MCH 33.3 pg (25.7-33.7); MCHC 33.8 g/dl (32.0-35.9); MEAN CELL VOLUME 98.6 fl (80-96); MEAN PLT VOLUME 8.5 fl (7.5-11.1); NEUT % 58.2 % (42.8-82.8); PLATELET COUNT 260 K/MM3 (134-434); RDW 16.6 % (11.9-15.9); WHITE BLOOD COUNT 9.1 K/mm3 (4.0-10.0)
[2017-03-20 07:54] LABS: ALBUMIN 2.2 g/dl (3.4-5.0); ALK PHOS 165 U/L (45-117); ANION GAP 8 (8-16); BILIRUBIN,TOTAL 0.3 mg/dL (0.2-1.0); CALCIUM 8.1 mg/dL (8.5-10.1); CO2 28 mmol/L (21-32); CREATININE 0.9 mg/dL (0.7-1.3); GLUCOSE,RANDOM 107 mg/dL (74-106); SGOT/AST 17 U/L (15-37); SGPT/ALT 25 U/L (12-78); TOT PROT 6.5 g/dl (6.4-8.2)
[2017-03-20] MEDS ORDERED: PT OWN MED DRAWER 7, Y5N ONE ×2 (10:17→21:05)
[2017-03-20] MEDS: LACTOBACILLUS ACIDOPHILUS 1 EACH TAB (FP) GT SCH (10:21)
[2017-03-20] MEDS: RANITIDINE HCL 150 MG/10 ML UNIT-DOSE GT SCH (10:21)
[2017-03-20] MEDS: ASCORBIC ACID 500 MG/5 ML UNIT DOSE CUP GT SCH (10:21)
[2017-03-20] MEDS: HEPARIN NA (PORCINE) 5,000 UNITS/ML 1ML VIAL SQ SCH ×2 (10:21→22:01)
[2017-03-20] MEDS: CYANOCOBALAMIN 1,000 MCG TABLET (FP) GT SCH (10:21)
[2017-03-20] MEDS: METOPROLOL TARTRATE 50 MG TABLET (FP) GT SCH ×2 (10:21→22:19)
--- NOTE | 2017-03-20 11:25 | PN ---
Progress Note, Physician History of Present Illness: events noted patient had episode of vomiting currently looks comfortable - Current Medication List Current Medications: Active Medications Artificial Tears (Artificial Tears) 1 drop OU HS [facility] Last Admin: 03/19/17 22:31 Dose: Not Given Ascorbic Acid (Vitamin C Oral Solution -) 500 mg GT DAILY [facility] Last Admin: 03/20/17 10:21 Dose: 500 mg Cyanocobalamin (Vitamin B12 -) 1,000 mcg GT DAILY [facility] Last Admin: 03/20/17 10:21 Dose: 1,000 mcg Heparin Sodium (Porcine) (Heparin -) 5,000 unit SQ BID [facility] Last Admin: 03/20/17 10:21 Dose: 5,000 unit IV Flush (Picc Line Flush) 8 ml IVPUSH PRN PRN PRN Reason: Protocol Ertapenem 1 gm/ Sodium (Chloride) 50 mls @ 50 mls/hr IVPB DAILY HOANG PRN Reason: Protocol Lactobacillus Acidophilus (Bacid -) 1 tab GT DAILY [facility] Last Admin: 03/20/17 10:21 Dose: 1 tab Metoprolol Tartrate (Lopressor -) 100 mg GT BID [facility] Last Admin: 03/20/17 10:21 Dose: 100 mg Ranitidine HCl (Zantac Oral Solution -) 150 mg GT DAILY [facility] Last Admin: 03/20/17 10:21 Dose: 150 mg Senna (Senna Oral Solution -) 17.6 mg GT HS [facility] Last Admin: 03/19/17 22:30 Dose: 17.6 mg - Objective Vital Signs: Vital Signs Temperature 98.5 F 03/20/17 05:51 Pulse Rate 68 03/20/17 05:51 Respiratory Rate 18 03/20/17 05:51 Blood Pressure 130/69 03/20/17 05:51 O2 Sat by Pulse Oximetry (%) 97 03/18/17 21:00 Constitutional: Yes: No Distress, Calm HENT: Yes: Other Cardiovascular: Yes: Regular Rate and Rhythm Respiratory: Yes: Poor Air Entry, Other Gastrointestinal: Yes: Normal Bowel Sounds, Soft, Other (choley tube in place) Musculoskeletal: Yes: WNL Extremities: Yes: WNL Neurological: Yes: Alert, Other Labs: CBC, BMP 03/20/17 06:00 03/20/17 06:00 INR, PTT INR 1.31 (0.82-1.09) H 03/10/17 22:40 Assessment/Plan Problem List - Problems (1) Aspiration pneumonia Code(s): J69.0 - PNEUMONITIS DUE TO INHALATION OF FOOD AND VOMIT (2) Sepsis Code(s): A41.9 - SEPSIS, UNSPECIFIED ORGANISM (3) Dementia with behavioral disturbance Code(s): F03.91 - UNSPECIFIED DEMENTIA WITH BEHAVIORAL DISTURBANCE Qualifiers: Dementia type: unspecified type Qualified Code(s): F03.91 - Unspecified dementia with behavioral disturbance (4) Hypertension Code(s): I10 - ESSENTIAL (PRIMARY) HYPERTENSION Qualifiers: Hypertension type: essential hypertension Qualified Code(s): I10 - Essential (primary) hypertension patient stable at the moment plan if patient spikes a fever get xray chest continue abx as advised repeat cx of bile continue monitoring for fevers monitor wbc
--- NOTE | 2017-03-20 13:39 | PN ---
Progress Note (short form) - Note Progress Note: Subjective: The patient was seen and examined at the bedside, he appears comfortable Had one episode of vomiting this morning. Tube feeds held Current Medications Generic Name Dose Route Start Last Admin Trade Name Roz PRN Reason Stop Dose Admin Artificial Tears 1 drop 03/11/17 22:00 03/19/17 22:31 Artificial Tears OU Not Given HS HOANG Ascorbic Acid 500 mg 03/11/17 10:00 03/20/17 10:21 Vitamin C Oral Solution - GT 500 mg DAILY HOANG Administration Cyanocobalamin 1,000 mcg 03/11/17 10:00 03/20/17 10:21 Vitamin B12 - GT 1,000 mcg DAILY HOANG Administration Heparin Sodium (Porcine) 5,000 unit 03/11/17 10:00 03/20/17 10:21 Heparin - SQ 5,000 unit BID HOANG Administration IV Flush 8 ml 03/18/17 12:37 Picc Line Flush IVPUSH PRN PRN Protocol Ertapenem 1 gm/ Sodium 50 mls @ 50 mls/hr 03/20/17 10:00 Chloride IVPB DAILY HOANG Protocol Lactobacillus Acidophilus 1 tab 03/11/17 10:00 03/20/17 10:21 Bacid - GT 1 tab DAILY HOANG Administration Metoprolol Tartrate 100 mg 03/17/17 09:39 03/20/17 10:21 Lopressor - GT 100 mg BID HAONG Administration Ranitidine HCl 150 mg 03/11/17 10:00 03/20/17 10:21 Zantac Oral Solution - GT 150 mg DAILY HOANG Administration Senna 17.6 mg 03/11/17 22:00 03/19/17 22:30 Senna Oral Solution - GT 17.6 mg HS HOANG Administration Objective: Vital Signs Period Temp Pulse Resp BP Sys/Hernandez Pulse Ox Last 24 Hr 97.5 F-99.0 F 68-80 16-20 112-140/65-69 Physical Exam: General: NAD, speaking mix of italian and divehi Lungs: mild rhonchi bilaterally anteriorly Abd: Right CARMELITA with biliary drainage. + PEG, abdominal binder Ext: Contracted Neuro: Non-verbal CBCD WBC 9.1 K/mm3 (4.0-10.0) 03/20/17 06:00 RBC 3.00 M/mm3 (4.00-5.60) L 03/20/17 06:00 Hgb 10.0 GM/dL (11.7-16.9) L 03/20/17 06:00 Hct 29.6 % (35.4-49) L 03/20/17 06:00 MCV 98.6 fl (80-96) H 03/20/17 06:00 MCHC 33.8 g/dl (32.0-35.9) 03/20/17 06:00 RDW 16.6 % (11.9-15.9) H 03/20/17 06:00 Plt Count 260 K/MM3 (134-434) 03/20/17 06:00 MPV 8.5 fl (7.5-11.1) 03/20/17 06:00 CMP Sodium 139 mmol/L (136-145) 03/20/17 06:00 Potassium 5.1 mmol/L (3.5-5.1) 03/20/17 06:00 Chloride 103 mmol/L (98-107) 03/20/17 06:00 Carbon Dioxide 28 mmol/L (21-32) 03/20/17 06:00 Anion Gap 8 (8-16) 03/20/17 06:00 BUN 40 mg/dL (7-18) H 03/20/17 06:00 Creatinine 0.9 mg/dL (0.7-1.3) 03/20/17 06:00 Creat Clearance w eGFR > 60 (>60) 03/20/17 06:00 Random Glucose 107 mg/dL (74-106) H 03/20/17 06:00 Calcium 8.1 mg/dL (8.5-10.1) L 03/20/17 06:00 Total Bilirubin 0.3 mg/dL (0.2-1.0) D 03/20/17 06:00 AST 17 U/L (15-37) 03/20/17 06:00 ALT 25 U/L (12-78) 03/20/17 06:00 Alkaline Phosphatase 165 U/L (45-117) H 03/20/17 06:00 Total Protein 6.5 g/dl (6.4-8.2) 03/20/17 06:00 Albumin 2.2 g/dl (3.4-5.0) L 03/20/17 06:00 CARDIAC ENZYMES Creatine Kinase 63 IU/L (39-308) 03/10/17 22:40 Troponin I < 0.02 ng/ml (0.00-0.05) 03/10/17 22:40 Microbiology 03/10/17 22:30 Blood - Peripheral Venous Blood Culture - Final NO GROWTH AFTER 5 DAYS INCUBATION 03/10/17 22:40 Blood - Peripheral Venous Blood Culture - Final NO GROWTH AFTER 5 DAYS INCUBATION 03/12/17 12:30 Drainage Gram Stain - Final 03/12/17 12:30 Drainage Body Fluid Culture - Final Escherichia Coli Esbl Shank Archer Acinetobacter Baumannii/Haemol Streptococcus Viridans Diphtheroid/Corynebacterium 03/12/17 12:30 Drainage Anaerobic Culture - Final NO ANAEROBES WERE ISOLATED 03/10/17 22:14 Urine - Urine - Catheterized Urine Culture - Final Assessment: This is an 86 year old male with PMHx of HTN, osteoarthritis, dementia, bipolar disorder, depression, ascending cholangitis (s/p percutaneous cholecystostomy 02/02/17), G-tube placement 03/02/17, who presented to the ED with suspected aspiration pneumonia Plan: 1) Vomiting - Patient had one episode of vomiting this morning. Tube feeds held - Resume tube feeds this evening, discussed with RN - If fevers, will repeat chest x-ray 2) Severe sepsis 2/2 suspected aspiration pneumonia vs. recurrent cholangitis - Bile culture as above - Discussed with Dr. Chadwick, will reculture bile drainage - Blood cultures with NGTD - On Ertapenem per ID will need to complete 10 days total (Last dose on 03/24) - Appreciate ID consult 3) Percutaneous cholecystostomy tube with possible fecal content - Discussed fistulagram with Dr. Ponce, no fistula seen. Cholecystostomy tube in correct place 4) HTN - Continue Lopressor to 100mg gt bid 5) F/E/N: - Two gabriel tube feeds - IV fluids - Monitor electrolytes 6) Prophylaxis: - Heparin 5,000u sq bid 7) Dispo: - Requires continued inpatient care CODE STATUS: DNR/DNI Visit type - Emergency Visit Emergency Visit: Yes ED Registration Date: 03/11/17 Care time: The patient presented to the Emergency Department on the above date and was hospitalized for further evaluation of their emergent condition. - New Patient This patient is new to me today: No - Critical Care Critical Care patient: No
[2017-03-20] MEDS: ERTAPENEM SODIUM 1 GM in SODIUM CHLORIDE 50 ML IVPB SCH (15:05)
[2017-03-20] MEDS: ARTIFICIAL TEARS (POLYVINYL ALCOHOL 1.4%) OPTH DROPS OU SCH (22:00)
[2017-03-20] MEDS: SENNOSIDES 8.8 MG/5 ML BULK BOTTLE GT SCH (22:20)
[2017-03-21 09:26] LABS: MCH 32.7 pg (25.7-33.7); MEAN CELL VOLUME 99.1 fl (80-96); MEAN PLT VOLUME 8.9 fl (7.5-11.1); RDW 16.7 % (11.9-15.9); WHITE BLOOD COUNT 11.7 K/mm3 (4.0-10.0)
[2017-03-21] MEDS ORDERED: PT OWN MED DRAWER 7, Y5N ONE (09:48)
[2017-03-21] MEDS: LACTOBACILLUS ACIDOPHILUS 1 EACH TAB (FP) GT SCH (10:00)
[2017-03-21] MEDS: ERTAPENEM SODIUM 1 GM in SODIUM CHLORIDE 50 ML IVPB SCH (10:01)
[2017-03-21] MEDS: RANITIDINE HCL 150 MG/10 ML UNIT-DOSE GT SCH (10:01)
[2017-03-21] MEDS: HEPARIN NA (PORCINE) 5,000 UNITS/ML 1ML VIAL SQ SCH ×2 (10:01→23:47)
[2017-03-21] MEDS: ASCORBIC ACID 500 MG/5 ML UNIT DOSE CUP GT SCH (10:01)
[2017-03-21] MEDS: METOPROLOL TARTRATE 50 MG TABLET (FP) GT SCH ×2 (10:01→23:47)
[2017-03-21] MEDS: CYANOCOBALAMIN 1,000 MCG TABLET (FP) GT SCH (10:01)
--- NOTE | 2017-03-21 10:33 | PN ---
Progress Note (short form) - Note Progress Note: Subjective: The patient was seen and examined at the bedside, he appears comfortable No further episodes of vomiting yesterday or overnight. Tube feeds restarted. WBC trending up today Resent bile culture Current Medications Generic Name Dose Route Start Last Admin Trade Name Roryq PRN Reason Stop Dose Admin Artificial Tears 1 drop 03/11/17 22:00 03/20/17 22:00 Artificial Tears OU 1 drop HS HOANG Administration Ascorbic Acid 500 mg 03/11/17 10:00 03/21/17 10:01 Vitamin C Oral Solution - GT 500 mg DAILY HOANG Administration Cyanocobalamin 1,000 mcg 03/11/17 10:00 03/21/17 10:01 Vitamin B12 - GT 1,000 mcg DAILY HOANG Administration Heparin Sodium (Porcine) 5,000 unit 03/11/17 10:00 03/21/17 10:01 Heparin - SQ 5,000 unit BID HOANG Administration IV Flush 8 ml 03/18/17 12:37 Picc Line Flush IVPUSH PRN PRN Protocol Ertapenem 1 gm/ Sodium 50 mls @ 50 mls/hr 03/20/17 10:00 03/21/17 10:01 Chloride IVPB 50 mls/hr DAILY HOANG Administration Protocol Lactobacillus Acidophilus 1 tab 03/11/17 10:00 03/21/17 10:00 Bacid - GT 1 tab DAILY HOANG Administration Metoprolol Tartrate 100 mg 03/17/17 09:39 03/21/17 10:01 Lopressor - GT 100 mg BID HOANG Administration Ranitidine HCl 150 mg 03/11/17 10:00 03/21/17 10:01 Zantac Oral Solution - GT 150 mg DAILY HOANG Administration Senna 17.6 mg 03/11/17 22:00 03/20/17 22:20 Senna Oral Solution - GT 17.6 mg HS HOANG Administration Objective: Vital Signs Period Temp Pulse Resp BP Sys/Hernandez Pulse Ox Last 24 Hr 97.3 F-98.2 F 70-78 18-18 133-138/53-75 Physical Exam: General: NAD, speaking mix of albanian and turkish Lungs: mild rhonchi bilaterally anteriorly Abd: Right CARMELITA with biliary drainage. + PEG, abdominal binder Ext: Contracted Neuro: Non-verbal CBCD WBC 11.7 K/mm3 (4.0-10.0) H 03/21/17 08:40 RBC 3.14 M/mm3 (4.00-5.60) L 03/21/17 08:40 Hgb 10.3 GM/dL (11.7-16.9) L 03/21/17 08:40 Hct 31.2 % (35.4-49) L 03/21/17 08:40 MCV 99.1 fl (80-96) H 03/21/17 08:40 MCHC 33.0 g/dl (32.0-35.9) 03/21/17 08:40 RDW 16.7 % (11.9-15.9) H 03/21/17 08:40 Plt Count 260 K/MM3 (134-434) 03/20/17 06:00 MPV 8.9 fl (7.5-11.1) 03/21/17 08:40 CMP Sodium 139 mmol/L (136-145) 03/20/17 06:00 Potassium 5.1 mmol/L (3.5-5.1) 03/20/17 06:00 Chloride 103 mmol/L (98-107) 03/20/17 06:00 Carbon Dioxide 28 mmol/L (21-32) 03/20/17 06:00 Anion Gap 8 (8-16) 03/20/17 06:00 BUN 40 mg/dL (7-18) H 03/20/17 06:00 Creatinine 0.9 mg/dL (0.7-1.3) 03/20/17 06:00 Creat Clearance w eGFR > 60 (>60) 03/20/17 06:00 Random Glucose 107 mg/dL (74-106) H 03/20/17 06:00 Calcium 8.1 mg/dL (8.5-10.1) L 03/20/17 06:00 Total Bilirubin 0.3 mg/dL (0.2-1.0) D 03/20/17 06:00 AST 17 U/L (15-37) 03/20/17 06:00 ALT 25 U/L (12-78) 03/20/17 06:00 Alkaline Phosphatase 165 U/L (45-117) H 03/20/17 06:00 Total Protein 6.5 g/dl (6.4-8.2) 03/20/17 06:00 Albumin 2.2 g/dl (3.4-5.0) L 03/20/17 06:00 CARDIAC ENZYMES Creatine Kinase 63 IU/L (39-308) 03/10/17 22:40 Troponin I < 0.02 ng/ml (0.00-0.05) 03/10/17 22:40 Microbiology 03/10/17 22:30 Blood - Peripheral Venous Blood Culture - Final NO GROWTH AFTER 5 DAYS INCUBATION 03/10/17 22:40 Blood - Peripheral Venous Blood Culture - Final NO GROWTH AFTER 5 DAYS INCUBATION 03/12/17 12:30 Drainage Gram Stain - Final 03/12/17 12:30 Drainage Body Fluid Culture - Final Escherichia Coli Esbl Rad Technologist Acinetobacter Baumannii/Haemol Streptococcus Viridans Diphtheroid/Corynebacterium 03/12/17 12:30 Drainage Anaerobic Culture - Final NO ANAEROBES WERE ISOLATED 03/10/17 22:14 Urine - Urine - Catheterized Urine Culture - Final Assessment: This is an 86 year old male with PMHx of HTN, osteoarthritis, dementia, bipolar disorder, depression, ascending cholangitis (s/p percutaneous cholecystostomy 02/02/17), G-tube placement 03/02/17, who presented to the ED with suspected aspiration pneumonia Plan: 1) Vomiting - Resolved - Tube feeds restarted yesterday evening - If fevers, will repeat chest x-ray 2) Severe sepsis 2/2 suspected aspiration pneumonia vs. recurrent cholangitis - Bile culture as above - Discussed with Dr. Chadwick, will reculture bile drainage - Blood cultures with NGTD - On Ertapenem per ID will need to complete 10 days total (Last dose on 03/24) - Appreciate ID consult 3) Percutaneous cholecystostomy tube with possible fecal content - Discussed fistulagram with Dr. Ponce, no fistula seen. Cholecystostomy tube in correct place 4) HTN - Continue Lopressor to 100mg gt bid 5) F/E/N: - Two gabriel tube feeds - IV fluids - Monitor electrolytes 6) Prophylaxis: - Heparin 5,000u sq bid 7) Dispo: - Requires continued inpatient care CODE STATUS: DNR/DNI Visit type - Emergency Visit Emergency Visit: Yes ED Registration Date: 03/11/17 Care time: The patient presented to the Emergency Department on the above date and was hospitalized for further evaluation of their emergent condition. - New Patient This patient is new to me today: No - Critical Care Critical Care patient: No
--- NOTE | 2017-03-21 10:50 | PN ---
Progress Note, Physician History of Present Illness: no gross changes patient stable wbc marginally up no specific events - Current Medication List Current Medications: Active Medications Artificial Tears (Artificial Tears) 1 drop OU HS [facility] Last Admin: 03/20/17 22:00 Dose: 1 drop Ascorbic Acid (Vitamin C Oral Solution -) 500 mg GT DAILY [facility] Last Admin: 03/21/17 10:01 Dose: 500 mg Cyanocobalamin (Vitamin B12 -) 1,000 mcg GT DAILY [facility] Last Admin: 03/21/17 10:01 Dose: 1,000 mcg Heparin Sodium (Porcine) (Heparin -) 5,000 unit SQ BID [facility] Last Admin: 03/21/17 10:01 Dose: 5,000 unit IV Flush (Picc Line Flush) 8 ml IVPUSH PRN PRN PRN Reason: Protocol Ertapenem 1 gm/ Sodium (Chloride) 50 mls @ 50 mls/hr IVPB DAILY HOANG PRN Reason: Protocol Last Admin: 03/21/17 10:01 Dose: 50 mls/hr Lactobacillus Acidophilus (Bacid -) 1 tab GT DAILY [facility] Last Admin: 03/21/17 10:00 Dose: 1 tab Metoprolol Tartrate (Lopressor -) 100 mg GT BID [facility] Last Admin: 03/21/17 10:01 Dose: 100 mg Ranitidine HCl (Zantac Oral Solution -) 150 mg GT DAILY [facility] Last Admin: 03/21/17 10:01 Dose: 150 mg Senna (Senna Oral Solution -) 17.6 mg GT HS [facility] Last Admin: 03/20/17 22:20 Dose: 17.6 mg - Objective Vital Signs: Vital Signs Temperature 98.2 F 03/20/17 18:00 Pulse Rate 78 03/20/17 18:00 Respiratory Rate 18 03/20/17 21:00 Blood Pressure 138/75 03/20/17 18:00 O2 Sat by Pulse Oximetry (%) 97 03/18/17 21:00 Constitutional: Yes: No Distress, Calm Cardiovascular: Yes: Regular Rate and Rhythm Respiratory: Yes: Regular, CTA Bilaterally Gastrointestinal: Yes: Normal Bowel Sounds, Soft, Other (choley tube in place) Musculoskeletal: Yes: WNL Extremities: Yes: WNL Neurological: Yes: Alert, Other (dementia) Psychiatric: Yes: Other Labs: CBC, BMP 03/21/17 08:40 03/20/17 06:00 INR, PTT INR 1.31 (0.82-1.09) H 03/10/17 22:40 Assessment/Plan Problem List - Problems (1) Aspiration pneumonia Code(s): J69.0 - PNEUMONITIS DUE TO INHALATION OF FOOD AND VOMIT (2) Sepsis Code(s): A41.9 - SEPSIS, UNSPECIFIED ORGANISM (3) Dementia with behavioral disturbance Code(s): F03.91 - UNSPECIFIED DEMENTIA WITH BEHAVIORAL DISTURBANCE Qualifiers: Dementia type: unspecified type Qualified Code(s): F03.91 - Unspecified dementia with behavioral disturbance (4) Hypertension Code(s): I10 - ESSENTIAL (PRIMARY) HYPERTENSION Qualifiers: Hypertension type: essential hypertension Qualified Code(s): I10 - Essential (primary) hypertension patient stable at the moment plan icontinue monitoring wbc await for cx reports rest ct current mgmt monitor for any fevers
[2017-03-21 12:06] LABS: PLATELET COMMENTS NO CLUMPING NOTED; PLATELET COUNT 282 K/MM3 (134-434)
[2017-03-21] MEDS: SENNOSIDES 8.8 MG/5 ML BULK BOTTLE GT SCH (23:46)
[2017-03-21] MEDS: ARTIFICIAL TEARS (POLYVINYL ALCOHOL 1.4%) OPTH DROPS OU SCH (23:47)
[2017-03-22 08:41] LABS: MCH 32.7 pg (25.7-33.7); MCHC 32.8 g/dl (32.0-35.9); MEAN CELL VOLUME 99.7 fl (80-96); MEAN PLT VOLUME 8.6 fl (7.5-11.1); PLATELET COUNT 284 K/MM3 (134-434); WHITE BLOOD COUNT 11.9 K/mm3 (4.0-10.0)
[2017-03-22 09:05] LABS: ANION GAP 8 (8-16); CALCIUM 8.3 mg/dL (8.5-10.1); CO2 28 mmol/L (21-32); CREATININE 0.9 mg/dL (0.7-1.3); GLUCOSE,RANDOM 114 mg/dL (74-106)
--- NOTE | 2017-03-22 11:45 | PN ---
Physical Exam: SUBJECTIVE: Patient seen and examined at bedside. OBJECTIVE: Vital Signs Period Temp Pulse Resp BP Sys/Hernandez Pulse Ox Last 24 Hr 96.2 F-97.1 F 66-72 18-20 135-146/65-71 GENERAL: A&O x 2. In no acute distress. LUNGS: Anterior breath sounds CTA HEART: RRR, S1, S2 ABDOMEN: Soft, nontender, nondistended, normoactive bowel sounds, no guarding, no rebound; PEG tube in place skin intact; CARMELITA drain, dark brown fluid with sediment EXTREMITIES: 2+ pulses, warm, well-perfused, no edema. Contracted. NEUROLOGICAL: Cranial nerves II through XII grossly intact. Normal speech, gait not observed. Laboratory Results - last 24 hr 03/21/17 03/22/17 03/22/17 08:40 07:30 07:30 WBC 11.9 H RBC 3.27 L Hgb 10.7 L Hct 32.6 L MCV 99.7 H MCH 32.7 MCHC 32.8 RDW 17.0 H Plt Count 282 284 MPV 8.6 Platelet Comment No clumping noted Sodium 140 Potassium 5.3 H Chloride 104 Carbon Dioxide 28 Anion Gap 8 BUN 51 H D Creatinine 0.9 Random Glucose 114 H Calcium 8.3 L Active Medications Generic Name Dose Route Start Last Admin Trade Name Freq PRN Reason Stop Dose Admin Artificial Tears 1 drop 03/11/17 22:00 03/21/17 23:47 Artificial Tears OU 1 drop HS HOANG Administration Ascorbic Acid 500 mg 03/11/17 10:00 03/21/17 10:01 Vitamin C Oral Solution - GT 500 mg DAILY HOANG Administration Cyanocobalamin 1,000 mcg 03/11/17 10:00 03/21/17 10:01 Vitamin B12 - GT 1,000 mcg DAILY HOANG Administration Heparin Sodium (Porcine) 5,000 unit 03/11/17 10:00 03/21/17 23:47 Heparin - SQ 5,000 unit BID HOANG Administration IV Flush 8 ml 03/18/17 12:37 Picc Line Flush IVPUSH PRN PRN Protocol Ertapenem 1 gm/ Sodium 50 mls @ 50 mls/hr 03/20/17 10:00 03/21/17 10:01 Chloride IVPB 50 mls/hr DAILY HOANG Administration Protocol Lactobacillus Acidophilus 1 tab 03/11/17 10:00 03/21/17 10:00 Bacid - GT 1 tab DAILY HOANG Administration Metoprolol Tartrate 100 mg 03/17/17 09:39 03/21/17 23:47 Lopressor - GT 100 mg BID HOANG Administration Ranitidine HCl 150 mg 03/11/17 10:00 03/21/17 10:01 Zantac Oral Solution - GT 150 mg DAILY HOANG Administration Senna 17.6 mg 03/11/17 22:00 03/21/17 23:46 Senna Oral Solution - GT 17.5 mg HS HOANG Administration Microbiology 03/20/17 08:35 Bile Gram Stain - Final 03/10/17 22:30 Blood - Peripheral Venous Blood Culture - Final NO GROWTH AFTER 5 DAYS INCUBATION 03/10/17 22:40 Blood - Peripheral Venous Blood Culture - Final NO GROWTH AFTER 5 DAYS INCUBATION 03/12/17 12:30 Drainage Gram Stain - Final 03/12/17 12:30 Drainage Body Fluid Culture - Final Escherichia Coli Esbl Butt Maker Acinetobacter Baumannii/Haemol Streptococcus Viridans Diphtheroid/Corynebacterium 03/12/17 12:30 Drainage Anaerobic Culture - Final NO ANAEROBES WERE ISOLATED 03/10/17 22:14 Urine - Urine - Catheterized Urine Culture - Final ASSESSMENT/PLAN: 86 year-old male with a PMH significant for HTN, osteoarthritis, dementia, bipolar disorder, and depression. Recent admission 02/01/17-03/03/17 for sepsis and respiratory failure secondary to ascending cholangitis, choledocholelithiasis, pancreatitis and JUAN J, s/p percutaneous cholecystostomy , G-tubeplacement 03/02/17. Severe sepsis, likely secondary to recurrent cholangitis --afebrile, WBC trending down --continue ertapenem --ID following Percutaneous cholecystostomy tube with possible fecal content --per Dr. Ponce, no fistula seen, tube with correct placement Hypertension --continue metoprolol FEN Fluids/Nutrition: tube feeds with free water Electrolytes: replete as indicated DVT prophylaxis: subq heparin Dispo: continues to require inpatient care. DNR/DNI Visit type - Emergency Visit Emergency Visit: Yes ED Registration Date: 03/11/17 Care time: The patient presented to the Emergency Department on the above date and was hospitalized for further evaluation of their emergent condition. - New Patient This patient is new to me today: Yes Date on this admission: 03/24/17 - Critical Care Critical Care patient: No
[2017-03-22] MEDS: ERTAPENEM SODIUM 1 GM in SODIUM CHLORIDE 50 ML IVPB SCH (12:04)
[2017-03-22] MEDS: HEPARIN NA (PORCINE) 5,000 UNITS/ML 1ML VIAL SQ SCH ×2 (12:05→23:43)
[2017-03-22] MEDS: RANITIDINE HCL 150 MG/10 ML UNIT-DOSE GT SCH (12:05)
[2017-03-22] MEDS: LACTOBACILLUS ACIDOPHILUS 1 EACH TAB (FP) GT SCH (12:06)
[2017-03-22] MEDS: METOPROLOL TARTRATE 50 MG TABLET (FP) GT SCH ×2 (12:06→23:43)
[2017-03-22] MEDS: CYANOCOBALAMIN 1,000 MCG TABLET (FP) GT SCH (12:06)
[2017-03-22] MEDS: ASCORBIC ACID 500 MG/5 ML UNIT DOSE CUP GT SCH (12:08)
[2017-03-22 12:49] LABS: ALBUMIN 2.4 g/dl (3.4-5.0); ALK PHOS 204 U/L (45-117); BILIRUBIN,DIRECT 0.3 mg/dL (0.0-0.2); BILIRUBIN,TOTAL 0.4 mg/dL (0.2-1.0); SGOT/AST 22 U/L (15-37); SGPT/ALT 31 U/L (12-78)
--- NOTE | 2017-03-22 13:01 | PN ---
Progress Note, Physician History of Present Illness: clinically patient stable no new issues - Current Medication List Current Medications: Active Medications Artificial Tears (Artificial Tears) 1 drop OU HS [facility] Last Admin: 03/21/17 23:47 Dose: 1 drop Ascorbic Acid (Vitamin C Oral Solution -) 500 mg GT DAILY [facility] Last Admin: 03/22/17 12:08 Dose: 500 mg Cyanocobalamin (Vitamin B12 -) 1,000 mcg GT DAILY [facility] Last Admin: 03/22/17 12:06 Dose: 1,000 mcg Heparin Sodium (Porcine) (Heparin -) 5,000 unit SQ BID [facility] Last Admin: 03/22/17 12:05 Dose: 5,000 unit IV Flush (Picc Line Flush) 8 ml IVPUSH PRN PRN PRN Reason: Protocol Ertapenem 1 gm/ Sodium (Chloride) 50 mls @ 50 mls/hr IVPB DAILY [facility] PRN Reason: Protocol Last Admin: 03/22/17 12:04 Dose: 50 mls/hr Lactobacillus Acidophilus (Bacid -) 1 tab GT DAILY [facility] Last Admin: 03/22/17 12:06 Dose: 1 tab Metoprolol Tartrate (Lopressor -) 100 mg GT BID [facility] Last Admin: 03/22/17 12:06 Dose: 100 mg Ranitidine HCl (Zantac Oral Solution -) 150 mg GT DAILY [facility] Last Admin: 03/22/17 12:05 Dose: 150 mg Senna (Senna Oral Solution -) 17.6 mg GT HS [facility] Last Admin: 03/21/17 23:46 Dose: 17.5 mg - Objective Vital Signs: Vital Signs Temperature 97.1 F L 03/21/17 18:00 Pulse Rate 72 03/21/17 18:00 Respiratory Rate 18 03/21/17 21:00 Blood Pressure 135/71 03/21/17 18:00 O2 Sat by Pulse Oximetry (%) 97 03/18/17 21:00 Constitutional: Yes: No Distress, Calm Cardiovascular: Yes: Regular Rate and Rhythm Respiratory: Yes: Regular Gastrointestinal: Yes: Normal Bowel Sounds, Soft, Other (choley tube in place) Musculoskeletal: Yes: WNL Extremities: Yes: WNL Neurological: Yes: Alert, Other Labs: CBC, BMP 03/22/17 07:30 03/22/17 07:30 INR, PTT INR 1.31 (0.82-1.09) H 12/06/17 22:40 Assessment/Plan Problem List - Problems (1) Aspiration pneumonia Code(s): J69.0 - PNEUMONITIS DUE TO INHALATION OF FOOD AND VOMIT (2) Sepsis Code(s): A41.9 - SEPSIS, UNSPECIFIED ORGANISM (3) Dementia with behavioral disturbance Code(s): F03.91 - UNSPECIFIED DEMENTIA WITH BEHAVIORAL DISTURBANCE Qualifiers: Dementia type: unspecified type Qualified Code(s): F03.91 - Unspecified dementia with behavioral disturbance (4) Hypertension Code(s): I10 - ESSENTIAL (PRIMARY) HYPERTENSION Qualifiers: Hypertension type: essential hypertension Qualified Code(s): I10 - Essential (primary) hypertension patient stable at the moment plan cx reports noted await for identification of the organisms will need adding of abx but will wait till we have all results
[2017-03-22] MEDS: ARTIFICIAL TEARS (POLYVINYL ALCOHOL 1.4%) OPTH DROPS OU SCH (23:43)
[2017-03-22] MEDS: SENNOSIDES 8.8 MG/5 ML BULK BOTTLE GT SCH (23:44)
[2017-03-23] MEDS: ARTIFICIAL TEARS (POLYVINYL ALCOHOL 1.4%) OPTH DROPS OU SCH ×2 (01:01→23:13)
--- NOTE | 2017-03-23 01:21 | EKG ---
Test Reason : Blood Pressure : / mmHG Vent. Rate : 080 BPM Atrial Rate : 080 BPM P-R Int : 158 ms QRS Dur : 082 ms QT Int : 378 ms P-R-T Axes : 044 -53 049 degrees QTc Int : 435 ms NORMAL SINUS RHYTHM LEFT AXIS DEVIATION MINIMAL VOLTAGE CRITERIA FOR LVH, MAY BE NORMAL VARIANT ABNORMAL ECG WHEN COMPARED WITH ECG OF 10-MAR-2017 23:31, NO SIGNIFICANT CHANGE WAS FOUND Confirmed by LUÍS CORCORAN, CHRISTIAN ([id number]) on 03/23/2017 1:20:32 AM Referred By: Confirmed By:CHRISTIAN STLAEY MD
[2017-03-23 09:54] LABS: BASO % 0.7 % (0-2.0); EOS % 2.9 % (0-4.5); MCH 33.3 pg (25.7-33.7); MCHC 33.5 g/dl (32.0-35.9); MEAN CELL VOLUME 99.6 fl (80-96); MEAN PLT VOLUME 8.5 fl (7.5-11.1); NEUT % 61.9 % (42.8-82.8); PLATELET COUNT 342 K/MM3 (134-434); RDW 17.1 % (11.9-15.9); WHITE BLOOD COUNT 10.1 K/mm3 (4.0-10.0)
[2017-03-23 10:16] LABS: ALBUMIN 2.6 g/dl (3.4-5.0); ANION GAP 8 (8-16); CALCIUM 8.5 mg/dL (8.5-10.1); CO2 29 mmol/L (21-32); GLUCOSE,RANDOM 132 mg/dL (74-106)
[2017-03-23 10:52] LABS: ALK PHOS 225 U/L (45-117); BILIRUBIN,TOTAL 0.4 mg/dL (0.2-1.0); SGOT/AST 22 U/L (15-37); SGPT/ALT 38 U/L (12-78); TOT PROT 7.5 g/dl (6.4-8.2)
[2017-03-23] MEDS: METOPROLOL TARTRATE 50 MG TABLET (FP) GT SCH ×2 (10:56→23:13)
[2017-03-23] MEDS: LACTOBACILLUS ACIDOPHILUS 1 EACH TAB (FP) GT SCH (10:56)
[2017-03-23] MEDS: ERTAPENEM SODIUM 1 GM in SODIUM CHLORIDE 50 ML IVPB SCH (10:56)
[2017-03-23] MEDS: RANITIDINE HCL 150 MG/10 ML UNIT-DOSE GT SCH (10:56)
[2017-03-23] MEDS: CYANOCOBALAMIN 1,000 MCG TABLET (FP) GT SCH (10:56)
[2017-03-23] MEDS: HEPARIN NA (PORCINE) 5,000 UNITS/ML 1ML VIAL SQ SCH ×2 (10:57→23:13)
[2017-03-23] MEDS ORDERED: PT OWN MED DRAWER 7, Y5N ONE ×2 (10:58→16:12)
[2017-03-23] MEDS: ASCORBIC ACID 500 MG/5 ML UNIT DOSE CUP GT SCH (10:58)
[2017-03-23] MEDS ORDERED: PIPERACILLIN/TAZOB 3.375 GM 50 ML IVPB SCH (13:30)
[2017-03-23] MEDS ORDERED: MEROPENEM 1 GM in DEXTROSE 5%-WATER - 100 ML IVPB SCH (13:30)
--- NOTE | 2017-03-23 13:40 | PN ---
Progress Note, Physician History of Present Illness: patient slightly lethargic wbc slightly on the lower side no specific complaints - Current Medication List Current Medications: Active Medications Artificial Tears (Artificial Tears) 1 drop OU HS [facility] Last Admin: 03/23/17 01:01 Dose: Not Given Ascorbic Acid (Vitamin C Oral Solution -) 500 mg GT DAILY [facility] Last Admin: 03/23/17 10:58 Dose: 500 mg Cyanocobalamin (Vitamin B12 -) 1,000 mcg GT DAILY [facility] Last Admin: 03/23/17 10:56 Dose: 1,000 mcg Heparin Sodium (Porcine) (Heparin -) 5,000 unit SQ BID [facility] Last Admin: 03/23/17 10:57 Dose: 5,000 unit IV Flush (Picc Line Flush) 8 ml IVPUSH PRN PRN PRN Reason: Protocol Meropenem 1 gm/ Dextrose 100 mls @ 100 mls/hr IVPB Q8H-IV [facility] PRN Reason: Protocol Lactobacillus Acidophilus (Bacid -) 1 tab GT DAILY [facility] Last Admin: 03/23/17 10:56 Dose: 1 tab Metoprolol Tartrate (Lopressor -) 100 mg GT BID [facility] Last Admin: 03/23/17 10:56 Dose: 100 mg Ranitidine HCl (Zantac Oral Solution -) 150 mg GT DAILY [facility] Last Admin: 03/23/17 10:56 Dose: 150 mg Senna (Senna Oral Solution -) 17.6 mg GT HS [facility] Last Admin: 03/22/17 23:44 Dose: 17.6 mg - Objective Vital Signs: Vital Signs Temperature 98.7 F 03/23/17 10:00 Pulse Rate 82 03/23/17 10:00 Respiratory Rate 18 03/23/17 10:00 Blood Pressure 140/70 03/23/17 10:00 O2 Sat by Pulse Oximetry (%) 95 03/22/17 21:00 Constitutional: Yes: No Distress, Calm Cardiovascular: Yes: Regular Rate and Rhythm Respiratory: Yes: Regular, CTA Bilaterally Gastrointestinal: Yes: Normal Bowel Sounds, Soft, Other (choley tube in place) Musculoskeletal: Yes: WNL Extremities: Yes: WNL Neurological: Yes: Alert, Other (dementia) Psychiatric: Yes: Alert Labs: CBC, BMP 03/23/17 09:35 03/23/17 09:35 INR, PTT INR 1.31 (0.82-1.09) H 03/10/17 22:40 Assessment/Plan Problem List - Problems (1) Aspiration pneumonia Code(s): J69.0 - PNEUMONITIS DUE TO INHALATION OF FOOD AND VOMIT (2) Sepsis Code(s): A41.9 - SEPSIS, UNSPECIFIED ORGANISM (3) Dementia with behavioral disturbance Code(s): F03.91 - UNSPECIFIED DEMENTIA WITH BEHAVIORAL DISTURBANCE Qualifiers: Dementia type: unspecified type Qualified Code(s): F03.91 - Unspecified dementia with behavioral disturbance (4) Hypertension Code(s): I10 - ESSENTIAL (PRIMARY) HYPERTENSION Qualifiers: Hypertension type: essential hypertension Qualified Code(s): I10 - Essential (primary) hypertension patient stable at the moment plan cx reports noted still awaiting identification of the rest of bacteria changed abx to zosyn if the cx come back esbl then we will decide if abx need to be changed rest as per primary
[2017-03-23] MEDS: PIPERACILLIN/TAZOB 3.375 GM 3.375 GM in DEXTROSE 5%-WATER - 100 ML IVPB SCH ×2 (16:02→18:18)
[2017-03-23] MEDS: SENNOSIDES 8.8 MG/5 ML BULK BOTTLE GT SCH (23:12)
[2017-03-24] MEDS: PIPERACILLIN/TAZOB 3.375 GM 3.375 GM in DEXTROSE 5%-WATER - 100 ML IVPB SCH ×3 (01:22→17:17)
[2017-03-24] MEDS ORDERED: PT OWN MED DRAWER 7, Y5N ONE ×4 (10:02→21:01)
[2017-03-24] MEDS: CYANOCOBALAMIN 1,000 MCG TABLET (FP) GT SCH (10:16)
[2017-03-24] MEDS: LACTOBACILLUS ACIDOPHILUS 1 EACH TAB (FP) GT SCH (10:16)
[2017-03-24] MEDS: METOPROLOL TARTRATE 50 MG TABLET (FP) GT SCH ×2 (10:16→21:58)
[2017-03-24] MEDS: ASCORBIC ACID 500 MG/5 ML UNIT DOSE CUP GT SCH (10:17)
[2017-03-24] MEDS: HEPARIN NA (PORCINE) 5,000 UNITS/ML 1ML VIAL SQ SCH (10:17)
[2017-03-24] MEDS: RANITIDINE HCL 150 MG/10 ML UNIT-DOSE GT SCH (10:17)
--- NOTE | 2017-03-24 13:20 | PN ---
Physical Exam: SUBJECTIVE: Patient seen and examined OBJECTIVE: Vital Signs Period Temp Pulse Resp BP Sys/Hernandez Pulse Ox Last 24 Hr 97.8 F-98.6 F 74-79 18-22 119-144/52-64 94 GENERAL: A&O x 2. In no acute distress. LUNGS: Anterior breath sounds CTA HEART: RRR, S1, S2 ABDOMEN: Soft, nontender, nondistended, normoactive bowel sounds, no guarding, no rebound; PEG tube in place skin intact; CARMELITA drain, dark brown fluid with sediment EXTREMITIES: 2+ pulses, warm, well-perfused, no edema. Contracted. NEUROLOGICAL: Cranial nerves II through XII grossly intact. Normal speech, gait not observed. Active Medications Generic Name Dose Route Start Trade Name Freq PRN Reason Stop Artificial Tears 1 drop 03/11/17 22:00 Artificial Tears OU HS [facility] Ascorbic Acid 500 mg 03/11/17 10:00 Vitamin C Oral Solution - GT DAILY [facility] Cyanocobalamin 1,000 mcg 03/11/17 10:00 Vitamin B12 - GT DAILY [facility] Heparin Sodium (Porcine) 5,000 unit 03/11/17 10:00 Heparin - SQ BID [facility] IV Flush 8 ml 03/18/17 12:37 Picc Line Flush IVPUSH PRN PRN Protocol Piperacillin Sod/Tazobactam 100 mls @ 200 mls/hr 03/23/17 14:00 Sod 3.375 gm/ Dextrose IVPB Q8H-IV [facility] Lactobacillus Acidophilus 1 tab 03/11/17 10:00 Bacid - GT DAILY [facility] Metoprolol Tartrate 100 mg 03/17/17 09:39 Lopressor - GT BID [facility] Ranitidine HCl 150 mg 03/11/17 10:00 Zantac Oral Solution - GT DAILY [facility] Senna 17.6 mg 03/11/17 22:00 Senna Oral Solution - GT [facility] Microbiology 03/20/17 08:35 Bile Gram Stain - Final 03/20/17 08:35 Bile Body Fluid Culture - Preliminary Pseudomonas Aeruginosa Acinetobacter Baumannii/Haemol Group D Strep Or Entero Coccus Staphylococcus Coagulase Neg Yeast Like Organism 03/20/17 08:35 Bile Anaerobic Culture - Final NO ANAEROBES WERE ISOLATED 03/10/17 22:30 Blood - Peripheral Venous Blood Culture - Final NO GROWTH AFTER 5 DAYS INCUBATION 03/10/17 22:40 Blood - Peripheral Venous Blood Culture - Final NO GROWTH AFTER 5 DAYS INCUBATION 03/12/17 12:30 Drainage Gram Stain - Final 03/12/17 12:30 Drainage Body Fluid Culture - Final Escherichia Coli Esbl Administrative Underwriter Acinetobacter Baumannii/Haemol Streptococcus Viridans Diphtheroid/Corynebacterium 03/12/17 12:30 Drainage Anaerobic Culture - Final NO ANAEROBES WERE ISOLATED 03/10/17 22:14 Urine - Urine - Catheterized Urine Culture - Final ASSESSMENT/PLAN: 86 year-old male with a PMH significant for HTN, osteoarthritis, dementia, bipolar disorder, and depression. Recent admission 02/01/17-03/03/17 for sepsis and respiratory failure secondary to ascending cholangitis, choledocholelithiasis, pancreatitis and JUNA J, s/p percutaneous cholecystostomy , G-tubeplacement 03/02/17. Severe sepsis, likely secondary to recurrent cholangitis --afebrile, WBC trending down --per ID d/c ertapenem, start Zosyn; waiting to see if ESBL --ID following Percutaneous cholecystostomy tube with possible fecal content --per Dr. Ponce, no fistula seen, tube with correct placement Hypertension --continue metoprolol FEN Fluids/Nutrition: tube feeds with free water Electrolytes: replete as indicated DVT prophylaxis: subq heparin Dispo: continues to require inpatient care. DNR/DNI Visit type - Emergency Visit Emergency Visit: Yes ED Registration Date: 03/11/17 Care time: The patient presented to the Emergency Department on the above date and was hospitalized for further evaluation of their emergent condition. - New Patient This patient is new to me today: No - Critical Care Critical Care patient: No
--- NOTE | 2017-03-24 13:25 | PN ---
Physical Exam: SUBJECTIVE: Patient seen and examined at bedside. OBJECTIVE: Vital Signs Period Temp Pulse Resp BP Sys/Hernandez Pulse Ox Last 24 Hr 97.8 F-98.6 F 74-79 18-22 119-144/52-64 94 GENERAL: A&O x 2. In no acute distress. LUNGS: Anterior breath sounds CTA HEART: RRR, S1, S2 ABDOMEN: Soft, nontender, nondistended, normoactive bowel sounds, no guarding, no rebound; PEG tube in place skin intact; CARMELITA drain, dark brown fluid with sediment EXTREMITIES: 2+ pulses, warm, well-perfused, no edema. Contracted. NEUROLOGICAL: Cranial nerves II through XII grossly intact. Normal speech, gait not observed. Active Medications Generic Name Dose Route Start Last Admin Trade Name Freq PRN Reason Stop Dose Admin Artificial Tears 1 drop 03/11/17 22:00 03/23/17 23:13 Artificial Tears OU 1 drop HS [facility] Administration Ascorbic Acid 500 mg 03/11/17 10:00 03/24/17 10:17 Vitamin C Oral Solution - GT 500 mg DAILY [facility] Administration Cyanocobalamin 1,000 mcg 03/11/17 10:00 03/24/17 10:16 Vitamin B12 - GT 1,000 mcg DAILY [facility] Administration Heparin Sodium (Porcine) 5,000 unit 03/11/17 10:00 03/24/17 10:17 Heparin - SQ 5,000 unit BID [facility] Administration IV Flush 8 ml 03/18/17 12:37 Picc Line Flush IVPUSH PRN PRN Protocol Piperacillin Sod/Tazobactam 100 mls @ 200 mls/hr 03/23/17 14:00 03/24/17 10: 16 Sod 3.375 gm/ Dextrose IVPB 200 mls/hr Q8H-IV [facility] Administration Lactobacillus Acidophilus 1 tab 03/11/17 10:00 03/24/17 10:16 Bacid - GT 1 tab DAILY [facility] Administration Metoprolol Tartrate 100 mg 03/17/17 09:39 03/24/17 10:16 Lopressor - GT Not Given BID [facility] Ranitidine HCl 150 mg 03/11/17 10:00 03/24/17 10:17 Zantac Oral Solution - GT 150 mg DAILY [facility] Administration Senna 17.6 mg 03/11/17 22:00 03/23/17 23:12 Senna Oral Solution - GT 17.6 mg HS [facility] Administration Microbiology 03/20/17 08:35 Bile Gram Stain - Final 03/20/17 08:35 Bile Body Fluid Culture - Preliminary Pseudomonas Aeruginosa Acinetobacter Baumannii/Haemol Group D Strep Or Entero Coccus- per Jazlyn panel had to be repeated Staphylococcus Coagulase Neg--NO FURTHER WORKUP Yeast Like Organism 03/20/17 08:35 Bile Anaerobic Culture - Final NO ANAEROBES WERE ISOLATED 03/10/17 22:30 Blood - Peripheral Venous Blood Culture - Final NO GROWTH AFTER 5 DAYS INCUBATION 03/10/17 22:40 Blood - Peripheral Venous Blood Culture - Final NO GROWTH AFTER 5 DAYS INCUBATION 03/12/17 12:30 Drainage Gram Stain - Final 03/12/17 12:30 Drainage Body Fluid Culture - Final Escherichia Coli Esbl Relationship Executive Acinetobacter Baumannii/Haemol Streptococcus Viridans Diphtheroid/Corynebacterium 03/12/17 12:30 Drainage Anaerobic Culture - Final NO ANAEROBES WERE ISOLATED 03/10/17 22:14 Urine - Urine - Catheterized Urine Culture - Final ASSESSMENT/PLAN 86 year-old male with a PMH significant for HTN, osteoarthritis, dementia, bipolar disorder, and depression. Recent admission 02/01/17-03/03/17 for sepsis and respiratory failure secondary to ascending cholangitis, choledocholelithiasis, pancreatitis and JUAN J, s/p percutaneous cholecystostomy , G-tubeplacement 03/02/17. 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 Chadwick to get antibiotic choice going forward/upon discharge Percutaneous cholecystostomy tube with possible fecal content --per Dr. Ponce, no fistula seen, tube with correct placement Hypertension --continue metoprolol FEN Fluids/Nutrition: tube feeds with free water Electrolytes: replete as indicated DVT prophylaxis: subq heparin Dispo: patient ready for discharge pending ID recommendations. DNR/DNI Visit type - Emergency Visit Emergency Visit: Yes ED Registration Date: 03/11/17 Care time: The patient presented to the Emergency Department on the above date and was hospitalized for further evaluation of their emergent condition. - New Patient This patient is new to me today: No - Critical Care Critical Care patient: No
--- NOTE | 2017-03-24 15:35 | PN ---
Progress Note, Physician History of Present Illness: patient stable no new changes - Current Medication List Current Medications: Active Medications Artificial Tears (Artificial Tears) 1 drop OU HS [facility] Last Admin: 03/23/17 23:13 Dose: 1 drop Ascorbic Acid (Vitamin C Oral Solution -) 500 mg GT DAILY [facility] Last Admin: 03/24/17 10:17 Dose: 500 mg Cyanocobalamin (Vitamin B12 -) 1,000 mcg GT DAILY [facility] Last Admin: 03/24/17 10:16 Dose: 1,000 mcg Heparin Sodium (Porcine) (Heparin -) 5,000 unit SQ BID [facility] Last Admin: 03/24/17 10:17 Dose: 5,000 unit IV Flush (Picc Line Flush) 8 ml IVPUSH PRN PRN PRN Reason: Protocol Piperacillin Sod/Tazobactam (Sod 3.375 gm/ Dextrose) 100 mls @ 200 mls/hr IVPB Q8H-IV [facility] Last Admin: 03/24/17 10:16 Dose: 200 mls/hr Lactobacillus Acidophilus (Bacid -) 1 tab GT DAILY [facility] Last Admin: 03/24/17 10:16 Dose: 1 tab Metoprolol Tartrate (Lopressor -) 100 mg GT BID [facility] Last Admin: 03/24/17 10:16 Dose: Not Given Ranitidine HCl (Zantac Oral Solution -) 150 mg GT DAILY [facility] Last Admin: 03/24/17 10:17 Dose: 150 mg Senna (Senna Oral Solution -) 17.6 mg GT HS [facility] Last Admin: 03/23/17 23:12 Dose: 17.6 mg - Objective Vital Signs: Vital Signs Temperature 98.4 F 03/24/17 14:41 Pulse Rate 95 H 03/24/17 14:41 Respiratory Rate 20 03/24/17 14:41 Blood Pressure 112/71 03/24/17 14:41 O2 Sat by Pulse Oximetry (%) 94 L 03/23/17 21:00 Constitutional: Yes: No Distress, Calm Cardiovascular: Yes: Regular Rate and Rhythm Respiratory: Yes: Regular, CTA Bilaterally Gastrointestinal: Yes: Normal Bowel Sounds, Soft, Other (choley tube in place) Musculoskeletal: Yes: WNL Extremities: Yes: WNL Neurological: Yes: Alert, Other Psychiatric: Yes: Other Labs: CBC, BMP 03/23/17 09:35 03/23/17 09:35 INR, PTT INR 1.31 (0.82-1.09) H 03/10/17 22:40 Assessment/Plan Problem List - Problems (1) Aspiration pneumonia Code(s): J69.0 - PNEUMONITIS DUE TO INHALATION OF FOOD AND VOMIT (2) Sepsis Code(s): A41.9 - SEPSIS, UNSPECIFIED ORGANISM (3) Dementia with behavioral disturbance Code(s): F03.91 - UNSPECIFIED DEMENTIA WITH BEHAVIORAL DISTURBANCE Qualifiers: Dementia type: unspecified type Qualified Code(s): F03.91 - Unspecified dementia with behavioral disturbance (4) Hypertension Code(s): I10 - ESSENTIAL (PRIMARY) HYPERTENSION Qualifiers: Hypertension type: essential hypertension Qualified Code(s): I10 - Essential (primary) hypertension patient stable at the moment plan all cx reports noted will switch abx to tobra and vanco stop all other abx will have to follow the levels
[2017-03-24] MEDS ORDERED: TOBRAMYCIN SULFATE IVPB SCH (16:00)
[2017-03-24] MEDS ORDERED: SODIUM CHLORIDE IVPB SCH (16:00)
[2017-03-24] MEDS ORDERED: VANCOMYCIN 1,000 MG in DEXTROSE 5%-WATER - 250 ML IVPB SCH (16:00)
[2017-03-24] MEDS ORDERED: PIPERACILLIN/TAZOB 3.375 GM 3.375 GM in DEXTROSE 5%-WATER - 50 ML IVPB SCH (18:00)
[2017-03-24] MEDS: SENNOSIDES 8.8 MG/5 ML BULK BOTTLE GT SCH (21:58)
[2017-03-24] MEDS: ARTIFICIAL TEARS (POLYVINYL ALCOHOL 1.4%) OPTH DROPS OU SCH (21:58)
[2017-03-25] MEDS: PICC LINE 8 ML FLUSH PROTOCOL IVPUSH PRN ×2 (01:00→18:00)
[2017-03-25] MEDS ORDERED: PT OWN MED DRAWER 7, Y5N ONE (01:06)
[2017-03-25] MEDS: PIPERACILLIN/TAZOB 3.375 GM 3.375 GM in DEXTROSE 5%-WATER - 100 ML IVPB SCH ×3 (01:09→18:37)
--- NOTE | 2017-03-25 11:10 | PN ---
Progress Note, Physician History of Present Illness: patient stable no new issues - Current Medication List Current Medications: Active Medications Artificial Tears (Artificial Tears) 1 drop OU HS [facility] Last Admin: 03/24/17 21:58 Dose: 1 drop Ascorbic Acid (Vitamin C Oral Solution -) 500 mg GT DAILY [facility] Last Admin: 03/24/17 10:17 Dose: 500 mg Cyanocobalamin (Vitamin B12 -) 1,000 mcg GT DAILY [facility] Last Admin: 03/24/17 10:16 Dose: 1,000 mcg IV Flush (Picc Line Flush) 8 ml IVPUSH PRN PRN PRN Reason: Protocol Last Admin: 03/25/17 01:00 Dose: 8 ml Piperacillin Sod/Tazobactam (Sod 3.375 gm/ Dextrose) 100 mls @ 200 mls/hr IVPB Q8H-IV [facility] Last Admin: 03/25/17 01:09 Dose: 200 mls/hr Lactobacillus Acidophilus (Bacid -) 1 tab GT DAILY [facility] Last Admin: 03/24/17 10:16 Dose: 1 tab Metoprolol Tartrate (Lopressor -) 100 mg GT BID [facility] Last Admin: 03/24/17 21:58 Dose: 100 mg Ranitidine HCl (Zantac Oral Solution -) 150 mg GT DAILY [facility] Last Admin: 03/24/17 10:17 Dose: 150 mg Senna (Senna Oral Solution -) 17.6 mg GT HS [facility] Last Admin: 03/24/17 21:58 Dose: 17.6 mg - Objective Vital Signs: Vital Signs Temperature 97.9 F 03/25/17 06:00 Pulse Rate 81 03/25/17 06:00 Respiratory Rate 20 03/25/17 06:00 Blood Pressure 115/67 03/25/17 06:00 O2 Sat by Pulse Oximetry (%) 96 03/24/17 21:00 Constitutional: Yes: No Distress, Calm Cardiovascular: Yes: Regular Rate and Rhythm Respiratory: Yes: Regular, CTA Bilaterally Gastrointestinal: Yes: Normal Bowel Sounds, Soft Musculoskeletal: Yes: WNL Extremities: Yes: WNL Neurological: Yes: Alert, Other Labs: CBC, BMP 03/23/17 09:35 03/23/17 09:35 INR, PTT INR 1.31 (0.82-1.09) H 03/10/17 22:40 Assessment/Plan Problem List - Problems (1) Aspiration pneumonia Code(s): J69.0 - PNEUMONITIS DUE TO INHALATION OF FOOD AND VOMIT (2) Sepsis Code(s): A41.9 - SEPSIS, UNSPECIFIED ORGANISM (3) Dementia with behavioral disturbance Code(s): F03.91 - UNSPECIFIED DEMENTIA WITH BEHAVIORAL DISTURBANCE Qualifiers: Dementia type: unspecified type Qualified Code(s): F03.91 - Unspecified dementia with behavioral disturbance (4) Hypertension Code(s): I10 - ESSENTIAL (PRIMARY) HYPERTENSION Qualifiers: Hypertension type: essential hypertension Qualified Code(s): I10 - Essential (primary) hypertension patient stable at the moment plan continue zosyn get a ct scan of abcd if the ct abd normal then patient can continue zosyn for another 7 days follow wbc
[2017-03-25] MEDS: LACTOBACILLUS ACIDOPHILUS 1 EACH TAB (FP) GT SCH (12:03)
[2017-03-25] MEDS: METOPROLOL TARTRATE 50 MG TABLET (FP) GT SCH ×2 (12:03→23:56)
[2017-03-25] MEDS: CYANOCOBALAMIN 1,000 MCG TABLET (FP) GT SCH (12:03)
[2017-03-25] MEDS: ASCORBIC ACID 500 MG/5 ML UNIT DOSE CUP GT SCH (12:04)
[2017-03-25] MEDS: RANITIDINE HCL 150 MG/10 ML UNIT-DOSE GT SCH (12:07)
[2017-03-25 12:41] LABS: BASO % 0.6 % (0-2.0); EOS % 5.2 % (0-4.5); MCH 32.8 pg (25.7-33.7); MCHC 32.6 g/dl (32.0-35.9); MEAN CELL VOLUME 100.4 fl (80-96); MEAN PLT VOLUME 8.8 fl (7.5-11.1); NEUT % 59.7 % (42.8-82.8); PLATELET COUNT 302 K/MM3 (134-434); RDW 17.5 % (11.9-15.9); WHITE BLOOD COUNT 9.1 K/mm3 (4.0-10.0)
[2017-03-25 13:07] LABS: ANION GAP 6 (8-16); CALCIUM 8.2 mg/dL (8.5-10.1); CO2 32 mmol/L (21-32); CREATININE 1.2 mg/dL (0.7-1.3); GLUCOSE,RANDOM 128 mg/dL (74-106)
--- NOTE | 2017-03-25 19:55 | PN ---
Physical Exam: SUBJECTIVE: Patient seen and examined. No distress noted OBJECTIVE: Vital Signs Period Temp Pulse Resp BP Sys/Hernandez Pulse Ox Last 24 Hr 97.3 F-97.9 F 67-95 18-20 115-158/60-74 96-96 PE: Neuro: non verbal, moving ext, mostly sleeping Pulm: mild rhonchi bilaterally anteriorly CV: s1 s2 rrr Abd: Right CARMELITA with biliary drainage. + PEG, abdominal binder Ext: Contracted Laboratory Results - last 24 hr 03/25/17 03/25/17 12:20 12:20 WBC 9.1 RBC 3.13 L Hgb 10.2 L Hct 31.4 L MCV 100.4 H MCH 32.8 MCHC 32.6 RDW 17.5 H Plt Count 302 MPV 8.8 Neutrophils % 59.7 Lymphocytes % 27.4 Monocytes % 7.1 Eosinophils % 5.2 H Basophils % 0.6 Sodium 144 Potassium 4.9 Chloride 106 Carbon Dioxide 32 Anion Gap 6 L BUN 58 H Creatinine 1.2 Random Glucose 128 H Calcium 8.2 L Active Medications Generic Name Dose Route Start Last Admin Trade Name Freq PRN Reason Stop Dose Admin Artificial Tears 1 drop 03/11/17 22:00 03/24/17 21:58 Artificial Tears OU 1 drop HS [facility] Administration Ascorbic Acid 500 mg 03/11/17 10:00 03/25/17 12:04 Vitamin C Oral Solution - GT 500 mg DAILY [facility] Administration Cyanocobalamin 1,000 mcg 03/11/17 10:00 03/25/17 12:03 Vitamin B12 - GT 1,000 mcg DAILY [facility] Administration IV Flush 8 ml 03/18/17 12:37 03/25/17 01:00 Picc Line Flush IVPUSH 8 ml PRN PRN Administration Protocol Piperacillin Sod/Tazobactam 100 mls @ 200 mls/hr 03/24/17 18:00 03/25/17 18: 37 Sod 3.375 gm/ Dextrose IVPB 200 mls/hr Q8H-IV [facility] Administration Lactobacillus Acidophilus 1 tab 03/11/17 10:00 03/25/17 12:03 Bacid - GT 1 tab DAILY [facility] Administration Metoprolol Tartrate 100 mg 03/17/17 09:39 03/25/17 12:03 Lopressor - GT 100 mg BID [facility] Administration Ranitidine HCl 150 mg 03/11/17 10:00 03/25/17 12:07 Zantac Oral Solution - GT 150 mg DAILY [facility] Administration Senna 17.6 mg 03/11/17 22:00 03/24/17 21:58 Senna Oral Solution - GT 17.6 mg HS [facility] Administration Assessment: 86 year old male with a PMH significant for HTN, osteoarthritis, dementia, bipolar disorder, and depression. Recent admission 02/01/17-03/03/17 for sepsis and respiratory failure secondary to ascending cholangitis, choledocholelithiasis, pancreatitis and JUAN J, s/p percutaneous cholecystostomy , G-tube placement 03/02/17. Plan: 1. 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 Percutaneous cholecystostomy tube with possible fecal content - Per Dr. Ponce, no fistula seen, tube with correct placement 3. Hypertension - Continue metoprolol 4. FEN Fluids/Nutrition: tube feeds with free water Electrolytes: replete as indicated DVT prophylaxis: subq heparin Dispo: patient ready for discharge pending ID recommendations. DNR/DNI Visit type - Emergency Visit Emergency Visit: Yes ED Registration Date: 03/11/17 Care time: The patient presented to the Emergency Department on the above date and was hospitalized for further evaluation of their emergent condition. - New Patient This patient is new to me today: Yes Date on this admission: 03/25/17 - Critical Care Critical Care patient: No
[2017-03-25] MEDS: ARTIFICIAL TEARS (POLYVINYL ALCOHOL 1.4%) OPTH DROPS OU SCH (22:00)
[2017-03-25] MEDS: SENNOSIDES 8.8 MG/5 ML BULK BOTTLE GT SCH (23:55)
[2017-03-26] MEDS: PIPERACILLIN/TAZOB 3.375 GM 3.375 GM in DEXTROSE 5%-WATER - 100 ML IVPB SCH ×3 (01:35→17:45)
[2017-03-26 08:57] LABS: BASO # 0.1 # (0.1-1); BASO % 0.9 % (0-2.0); EOS # 0.6 # (0-4.5); EOS % 7.7 % (0-4.5); MCH 33.7 pg (25.7-33.7); MCHC 33.6 g/dl (32.0-35.9); MEAN CELL VOLUME 100.3 fl (80-96); MEAN PLT VOLUME 8.9 fl (7.5-11.1); MONO # 0.6 # (3.8-10.2); NEUT # 4.7 # (42.8-82.8); NEUT % 58.8 % (42.8-82.8); PLATELET COUNT 298 K/MM3 (134-434); RDW 18.6 % (11.9-15.9)
[2017-03-26 09:24] LABS: ANION GAP 9 (8-16); CALCIUM 7.9 mg/dL (8.5-10.1); CO2 29 mmol/L (21-32); CREATININE 1.2 mg/dL (0.7-1.3); GLUCOSE,RANDOM 128 mg/dL (74-106)
--- NOTE | 2017-03-26 10:40 | PN ---
Progress Note, Physician History of Present Illness: patient stable no new issues - Current Medication List Current Medications: Active Medications Artificial Tears (Artificial Tears) 1 drop OU HS [facility] Last Admin: 03/25/17 22:00 Dose: 1 drop Ascorbic Acid (Vitamin C Oral Solution -) 500 mg GT DAILY [facility] Last Admin: 03/25/17 12:04 Dose: 500 mg Cyanocobalamin (Vitamin B12 -) 1,000 mcg GT DAILY [facility] Last Admin: 03/25/17 12:03 Dose: 1,000 mcg IV Flush (Picc Line Flush) 8 ml IVPUSH PRN PRN PRN Reason: Protocol Last Admin: 03/25/17 01:00 Dose: 8 ml Piperacillin Sod/Tazobactam (Sod 3.375 gm/ Dextrose) 100 mls @ 200 mls/hr IVPB Q8H-IV [facility] Last Admin: 03/26/17 01:35 Dose: 200 mls/hr Lactobacillus Acidophilus (Bacid -) 1 tab GT DAILY [facility] Last Admin: 03/25/17 12:03 Dose: 1 tab Metoprolol Tartrate (Lopressor -) 100 mg GT BID [facility] Last Admin: 03/25/17 23:56 Dose: Not Given Ranitidine HCl (Zantac Oral Solution -) 150 mg GT DAILY [facility] Last Admin: 03/25/17 12:07 Dose: 150 mg Senna (Senna Oral Solution -) 17.6 mg GT HS [facility] Last Admin: 03/25/17 23:55 Dose: Not Given - Objective Vital Signs: Vital Signs Temperature 97.8 F 03/26/17 06:00 Pulse Rate 84 03/26/17 06:00 Respiratory Rate 20 03/26/17 06:00 Blood Pressure 139/95 03/26/17 06:00 O2 Sat by Pulse Oximetry (%) 96 03/25/17 09:00 Constitutional: Yes: No Distress, Calm Cardiovascular: Yes: Regular Rate and Rhythm Respiratory: Yes: Regular, CTA Bilaterally Gastrointestinal: Yes: Normal Bowel Sounds, Soft, Other (choley tube in place) Musculoskeletal: Yes: WNL Extremities: Yes: WNL Neurological: Yes: Alert, Other (dementia) Labs: CBC, BMP 03/26/17 08:00 03/26/17 08:00 INR, PTT INR 1.31 (0.82-1.09) H 03/10/17 22:40 Assessment/Plan Problem List - Problems (1) Aspiration pneumonia Code(s): J69.0 - PNEUMONITIS DUE TO INHALATION OF FOOD AND VOMIT (2) Sepsis Code(s): A41.9 - SEPSIS, UNSPECIFIED ORGANISM (3) Dementia with behavioral disturbance Code(s): F03.91 - UNSPECIFIED DEMENTIA WITH BEHAVIORAL DISTURBANCE Qualifiers: Dementia type: unspecified type Qualified Code(s): F03.91 - Unspecified dementia with behavioral disturbance (4) Hypertension Code(s): I10 - ESSENTIAL (PRIMARY) HYPERTENSION Qualifiers: Hypertension type: essential hypertension Qualified Code(s): I10 - Essential (primary) hypertension patient stable at the moment plan continue zosyn for another 7 days rest as per primary team regular follow up of his labs if patient starts spiking fever again cx him and the bile rest as per primary team
--- NOTE | 2017-03-26 11:20 | DS ---
Physical Exam: SUBJECTIVE: Patient seen and examined. He is awake, wants to change his shirt. Son at bedside OBJECTIVE: Vital Signs Period Temp Pulse Resp BP Sys/Hernandez Pulse Ox Last 24 Hr 97.3 F-97.8 F 67-84 18-20 134-158/60-95 PE: Neuro: awake, alert, cn 2-12intact Pulm: mild rhonchi bilaterally anteriorly CV: s1 s2 rrr Abd: Right CARMELITA with biliary drainage. + PEG, abdominal binder Ext: Contracted, RUE picc Laboratory Results - last 24 hr 03/25/17 03/25/17 03/26/17 12:20 12:20 08:00 WBC 9.1 RBC 3.13 L Hgb 10.2 L Hct 31.4 L MCV 100.4 H MCH 32.8 MCHC 32.6 RDW 17.5 H Plt Count 302 MPV 8.8 Absolute Neuts (auto) Absolute Lymphs (auto) Absolute Monos (auto) Absolute Eos (auto) Absolute Basos (auto) Neutrophils % 59.7 Lymphocytes % 27.4 Monocytes % 7.1 Eosinophils % 5.2 H Basophils % 0.6 Sodium 144 142 Potassium 4.9 4.6 Chloride 106 104 Carbon Dioxide 32 29 Anion Gap 6 L 9 BUN 58 H 58 H Creatinine 1.2 1.2 Random Glucose 128 H 128 H Calcium 8.2 L 7.9 L 03/26/17 08:00 WBC 8.0 RBC 3.15 L Hgb 10.6 L Hct 31.6 L MCV 100.3 H MCH 33.7 MCHC 33.6 RDW 18.6 H Plt Count 298 MPV 8.9 Absolute Neuts (auto) 4.7 L Absolute Lymphs (auto) 2.0 L Absolute Monos (auto) 0.6 L Absolute Eos (auto) 0.6 Absolute Basos (auto) 0.1 Neutrophils % 58.8 Lymphocytes % 24.8 Monocytes % 7.8 Eosinophils % 7.7 H Basophils % 0.9 Sodium Potassium Chloride Carbon Dioxide Anion Gap BUN Creatinine Random Glucose Calcium HOSPITAL COURSE: Date of Admission:03/11/17 Date of Discharge: 03/26/17 Minutes to complete discharge: 37 Discharge Summary Reason For Visit: ASPIRATION PNEUMONIA/SEPSIS/HYPERKALEMIA Current Active Problems Aspiration pneumonia (Acute) Hyperkalemia (Acute) Sepsis (Acute) Hospital Course: Initial Hospital Course: Briefly, this 86 year old male who [facility]. Pt was admitted from 03[facility]09-03/10 [facility] but he returned today with fever and cough. Pt is mostly nonverbal and reacts to noxious stimuli. ROS obtained from NH and ED charts. He was also recently admitted here from 02/01-03/04 for acute cholangitis and respiratory failure. Subsequent Hospital Course/Progress Note/DC summary: Assessment: 86 year old male with a PMH significant for HTN, osteoarthritis, dementia, bipolar disorder, and depression. Recent admission 02/01/17-03/03/17 for sepsis and respiratory failure secondary to ascending cholangitis, choledocholelithiasis, pancreatitis and JUAN J, s/p percutaneous cholecystostomy , G-tube placement 03/02/17. Plan: 1. 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 Valentino and Dr. Sunshine enclosed, d/w son Sunday he is aware 2. Percutaneous cholecystostomy tube with possible fecal content - Per Dr. Ponce, no fistula seen, tube with correct placement 3. Hypertension - Continue metoprolol 4. Nutrition - Continue Tube feeds continuous, 48cc tube feeds follow by 48cc of water fluids Dispo: - Transfer to [facility] with above plan Condition: Stable - Instructions Diet, Activity, Other Instructions: Please return to the ED with new, persistent, or worsening symptoms. Please follow-up with providers as indicated. Continue medications as directed on home meds list. Continue zosyn for 7 days more Tube feeds: Two gabriel 48ml/hr with water flushes 48ml/hr Monitor for aspiration Referrals: Hoa Chadwick MD [Staff Physician] - 1 Week Iftikhar Valentino MD [Staff Physician] - 1 Week Elian Sunshine MD [Staff Physician] - Disposition: [facility] - Home Medications Comprehensive Discharge Medication List: Ambulatory Orders Acetaminophen [Tylenol Extra Strength] 500 mg PO DAILY 03/11/17 Albuterol 2.5/Ipratropium 0.5 [Duoneb -] 1 neb IH QID 03/11/17 Alprazolam [Xanax] 0.25 mg PO Q6H 03/11/17 Ascorbate Calcium [Vitamin C] 500 mg PO DAILY 03/11/17 Cyanocobalamin (Vitamin B-12) [Vitamin B-12] 1,000 mcg PO DAILY 03/11/17 Hypromellose 0.5% Opth Soln [Artificial Tears] 1 drop DAILY 03/11/17 Lactobacillus Acidophilus [Acidophilus] 100 mg PO DAILY 03/11/17 Ranitidine Oral Solution [Zantac Oral Solution -] 150 mg GT DAILY 03/11/17 Sennosides [Senna] 8.6 mg PO DAILY 03/11/17 Metoprolol Tartrate [Lopressor -] 100 mg GT BID tablet 03/26/17 Picc Line Flush [Picc Line Flush -] 8 ml IVPUSH PRN PRN ml 03/26/17 Piperacillin/Tazob 3.375 gm [Zosyn -] 3.375 gm IVPB Q8H-IV 7 Days #21 vial 03/26 This patient is new to me today: No Emergency Visit: Yes ED Registration Date: 03/11/17 Care time: The patient presented to the Emergency Department on the above date and was hospitalized for further evaluation of their emergent condition. Critical Care patient: No - Discharge Referral Referred to [facility] No
[2017-03-26] MEDS ORDERED: PT OWN MED DRAWER 7, Y5N ONE (11:21)
[2017-03-26] MEDS: METOPROLOL TARTRATE 50 MG TABLET (FP) GT SCH (11:48)
[2017-03-26] MEDS: LACTOBACILLUS ACIDOPHILUS 1 EACH TAB (FP) GT SCH (11:49)
[2017-03-26] MEDS: CYANOCOBALAMIN 1,000 MCG TABLET (FP) GT SCH (11:49)
[2017-03-26] MEDS: RANITIDINE HCL 150 MG/10 ML UNIT-DOSE GT SCH (11:49)
[2017-03-26] MEDS: ASCORBIC ACID 500 MG/5 ML UNIT DOSE CUP GT SCH (12:00)
[2017-03-26 17:35] VITALS: BP 129/86; PULSE 134; TEMP 97.1
== END 2017-03-26 19:00 | DRG 871 ==
LOC: JER 21:42 → JERBED 03-11 02:09 → UNDOADMIN 03-11 02:20 → J4W 03-11 05:04 → J8W 03-14 13:45
PROVIDERS: ADMIT Internal Medicine; ATTEND Nurse Practitioner Acute Care
PROC: 3E0G76Z Introduction of Nutritional Substance into Upper GI, Via Natural or Artificial Opening (ICD-10-PCS; principal; 2017-03-11)
PROC: 02HV33Z Insertion of Infusion Device into Superior Vena Cava, Percutaneous Approach (ICD-10-PCS; 2017-03-19)
PROC: B518ZZA Fluoroscopy of Superior Vena Cava, Guidance (ICD-10-PCS; 2017-03-19)
DX: A41.9 Sepsis, unspecified organism (principal); J69.0 Pneumonitis due to inhalation of food and vomit; F03.91 Unspecified dementia, unspecified severity, with behavioral disturbance; K83.0 Cholangitis; R65.20 Severe sepsis without septic shock; F31.9 Bipolar disorder, unspecified; Z93.1 Gastrostomy status; E87.5 Hyperkalemia; Z87.891 Personal history of nicotine dependence; M19.90 Unspecified osteoarthritis, unspecified site; Z66 Do not resuscitate; I12.9 Hypertensive chronic kidney disease with stage 1 through stage 4 chronic kidney disease, or unspecified chronic kidney disease; N18.9 Chronic kidney disease, unspecified
CPT/HCPCS: 36415; 36569; 71010-TC; 74176-TC; 76000-TC; 76080-TC; 76705-TC; 77001-TC; 80048; 80053; 80076; 81003; 81015; 82550; 82803; 83605; 83735; 84100; 84484; 85025; 85027; 85610; 85730; 86850; 86900; 86901; 87040; 87070; 87075; 87086; 87186; 87205; 93005; 93010; 94640; 99284-25; C1751; J1644; Q9967

== ENCOUNTER 2017-08-01 12:00 | Inpatient (IN) | payer OTHER ==
--- NOTE | 2017-08-01 13:15 | PDOC ---
History of Present Illness - General History Source: [facility] Records Exam Limitations: Dementia - History of Present Illness Initial Comments: 08/01/17 13:28 Patient is a 86 y.o. male with PMHx of cholecystostomy tube s/p cholangitis ( tube placement 02/02/17), recurrent aspiration pneumonia, has PEG tube ( tube placement 03/02/2017), HTN, and dementia, currently DNR, who was BIBA from [facility], for biliary tube replacement after pulling it out according to [place] papers. Patient denies any current pain. Patient is disoriented. Additional history obtained from [place] paperwork. PCP: Raymond Pal <Taylor Rg - Last Filed: 08/01/17 13:28> - General History Source: Patient Exam Limitations: No Limitations <Ana Maria Mir - Last Filed: 08/01/17 18:53> <Donna Dodd - Last Filed: 08/02/17 02:27> - General Chief Complaint: Revisit,Wound Recheck Stated Complaint: Kenny Patrick TUBE REPLACEMENT Past History <Taylor Rg - Last Filed: 08/01/17 13:28> - Past Medical History COPD: No Dementia: Yes (Alzheimers) GI Disorders: Yes (cholecystitis, ERCP w/stone extraction 2014) HTN: Yes Psychiatric Problems: Yes Seizures: Yes (depression,pshycosis (dementia)) - Suicide/Smoking/Psychosocial Hx Smoking History: Unknown if ever smoked Have you smoked in the past 12 months: No If you are a former smoker, when did you quit?: 30 YRS AGO - 1-2ppd x 20-30 yrs Information on smoking cessation initiated: No Hx Alcohol Use: No Drug/Substance Use Hx: No Substance Use Type: None <Ana Maria Mir - Last Filed: 08/01/17 18:53> <Donna Dodd - Last Filed: 08/02/17 02:27> - Past Medical History Allergies/Adverse Reactions: Allergies Allergy/AdvReac Type Severity Reaction Status Date / Time No Known Allergies Allergy Verified 08/01/17 12:20 Home Medications: Ambulatory Orders Acetaminophen [Tylenol Extra Strength] 500 mg PO DAILY 03/11/17 Albuterol 2.5/Ipratropium 0.5 [Duoneb -] 1 neb IH QID 03/11/17 Alprazolam [Xanax] 0.25 mg PO Q6H 03/11/17 Ascorbate Calcium [Vitamin C] 500 mg PO DAILY 03/11/17 Cyanocobalamin (Vitamin B-12) [Vitamin B-12] 1,000 mcg PO DAILY 03/11/17 Hypromellose 0.5% Opth Soln [Artificial Tears] 1 drop DAILY 03/11/17 Lactobacillus Acidophilus [Acidophilus] 100 mg PO DAILY 03/11/17 Ranitidine Oral Solution [Zantac Oral Solution -] 150 mg GT DAILY 03/11/17 Sennosides [Senna] 8.6 mg PO DAILY 03/11/17 Metoprolol Tartrate [Lopressor -] 100 mg GT BID tablet 03/26/17 Picc Line Flush [Picc Line Flush -] 8 ml IVPUSH PRN PRN ml 03/26/17 Piperacillin/Tazob 3.375 gm [Zosyn -] 3.375 gm IVPB Q8H-IV 7 Days #21 vial 03/26 Review of Systems - Review of Systems Able to Perform ROS?: No (pt is poor historian) <Taylor Rg - Last Filed: 08/01/17 13:28> *Physical Exam - Vital Signs Last Vital Signs Temp Pulse Resp BP Pulse Ox 97.9 F 75 16 138/77 100 08/01/17 12:00 08/01/17 12:00 08/01/17 12:00 08/01/17 12:00 08/01/17 12:00 - Physical Exam Comments: 08/01/17 13:29 GENERAL: Awake, alert, and mildly disoriented, in no acute distress. Patient denies any pain HEAD: No signs of trauma EYES: PERRLA, EOMI, sclera anicteric, conjunctiva clear ENT: Auricles normal inspection, nares patent, Moist mucosa NECK: Normal ROM, supple, no lymphadenopathy, JVD, or masses LUNGS: Breath sounds equal, clear to auscultation bilaterally. No wheezes, and no crackles HEART: Regular rate and rhythm, normal S1 and S2, no murmurs, rubs or gallops ABDOMEN: Percutaneous drainage of right sided cholecystostomy tube. No expressival fluid at site, no erythema. Peg tube - clean, dry intact. Soft, nontender, normoactive bowel sounds. No guarding, no rebound. No masses EXTREMITIES: Warm, and well perfused. Normal range of motion, no edema. No clubbing or cyanosis. No cords, erythema, or tenderness NEUROLOGICAL: Normal speech SKIN: Warm, Dry, normal turgor, no rashes or lesions noted. <Taylor Rg - Last Filed: 08/01/17 13:28> - Vital Signs Last Vital Signs Temp Pulse Resp BP Pulse Ox 97.9 F 75 16 138/77 100 08/01/17 12:00 08/01/17 12:00 08/01/17 12:00 08/01/17 12:00 08/01/17 12:00 <Ana Maria Mir - Last Filed: 08/01/17 18:53> - Vital Signs Last Vital Signs Temp Pulse Resp BP Pulse Ox 98.9 F 70 20 119/62 96 08/01/17 19:19 08/01/17 19:19 08/01/17 19:19 08/01/17 19:19 08/01/17 19:19 <Donna Dodd - Last Filed: 08/02/17 02:27> ED Treatment Course - Consult/PCP Time Called: 13:19 (awaiting call back) Case discussed with personal care physician: Raymond Pal <Taylor Rg - Last Filed: 08/01/17 13:28> - LABORATORY CBC & Chemistry Diagram: 08/01/17 13:43 08/01/17 15:15 <Ana Maria Mir - Last Filed: 08/01/17 18:53> - LABORATORY CBC & Chemistry Diagram: 08/01/17 13:43 08/01/17 15:15 - ADDITIONAL ORDERS Additional order review: Laboratory Results 08/01/17 08/01/17 15:15 13:43 PT with INR 12.20 INR 1.08 PTT (Actin FS) 28.2 Sodium 144 Potassium 4.5 Chloride 113 H Carbon Dioxide 29 Anion Gap 2 L BUN 39 H D Creatinine 1.1 Creat Clearance w eGFR > 60 Random Glucose 85 D Calcium 8.2 L Total Bilirubin 0.3 D AST 17 D ALT 14 D Alkaline Phosphatase 99 D Total Protein 7.1 Albumin 3.2 L D 08/01/17 13:43 RBC 3.64 L MCV 99.4 H MCHC 35.3 RDW 12.9 D MPV 8.1 Neutrophils % 52.2 Lymphocytes % 32.5 D Monocytes % 11.3 H Eosinophils % 3.4 Basophils % 0.6 - Medications Given in the ED: ED Medications Discontinued Medications Generic Name Dose Route Start Last Admin Trade Name Roz PRN Reason Stop Dose Admin Diphenhydramine HCl 50 mg 08/01/17 19:46 08/01/17 19:48 Benadryl Injection - IVPB 08/01/17 19:47 50 mg ONCE ONE Administration Haloperidol 2.5 mg 08/01/17 18:34 08/01/17 18:35 Haldol Injection (Fast Acting) - IM 08/01/17 18:35 2.5 mg ONCE ONE Administration Lorazepam 2 mg 08/01/17 18:01 08/01/17 18:05 Ativan Injection - IVPUSH 08/01/17 18:02 2 mg ONCE ONE Administration Polyethylene Glycol 17 gm 08/01/17 13:30 08/01/17 15:41 Miralax (For Daily Use) - PO Not Given BID HOANG Sodium Chloride 1,000 ml 08/01/17 15:21 08/01/17 15:27 Normal Saline - IV 08/01/17 15:22 1,000 ml ONCE ONE Administration <Donna Dodd - Last Filed: 08/02/17 02:27> Medical Decision Making - Medical Decision Making 08/01/17 13:13 86 yo male here from [facility] h/o bipolar, htn dementia , cholangitis s/p cholecystostomy tube ( 02/02/17) and PEG for recurrent aspiration pna, here bc he pulled out his mainor tube. pt currently denies pain , n/v or fever. but is disoriented to date. history per [facility] papers. differential : recurrent infection, biliary blockage, plan labs, ekg will d/w pt pcp whether or not needs to be replaced. cher[facility] admit for replacement . 08/01/17 15:09 d/w tash Barboza who evaluate pt in ED. recommend ct a/p will reassess whether tube needs to be replaced. d/w pt . <Ana Maria Mir - Last Filed: 08/01/17 18:53> - Medical Decision Making 08/01/17 20:16 Patient Name: SALAS MUÑOZ THIS IS A PRELIMINARY REPORT FROM [facility] IMAGES: [id number] EXAM DATE AND TIME: 2017-08-01 18:52:49 EXAM: CT Abdomen and Pelvis With Intravenous Contrast CLINICAL HISTORY: R/O ABSCESS TECHNIQUE: Axial computed tomography images of the abdomen and pelvis with intravenous contrast. This CT exam was performed using one or more of the following dose reduction techniques : Automated exposure control, Adjustment of the mA and/or kV according to patient size, Use of iterative reconstruction technique. COMPARISON: No relevant prior studies available. FINDINGS: LUNG BASES: There are mild dependent changes present in the lung bases.This is most CONFIDENTIALITY NOTICE: This information is intended only for the use of the recipient(s) named above. If you are not the intended recipient, or a person responsible for delivering it to the intended recipient, you are hereby notified that any disclosure, copying, distribution or use of any of the information contained in or attached to this transmission is STRICTLY PROHIBITED. If you have received this transmission in error, please immediately notify [employer] and destroy the original transmission and its attachments without saving them in any manner [address] [facility] [address] [place] [address] Phone: [phone] Fax: Email: Web: [email or web address] Patient Information: : 1930 Name: WANDA MARINA Sex: M Study Description: CT ABDOMEN AND PELVIS Modality: CT Location: [facility] Referring Physician: NIVIA ROBBINS prominent in the LEFT lung base. Patchy consolidation in the posterior lingula. HEART: Calcification is present in the coronary arteries. The coronary arteries were otherwise not evaluated for stenosis or occlusion. ABDOMEN: LIVER: There is NO evidence of abnormal enlargement. A nonspecific density is present which is unable to be further characterized on this study and the lateral RIGHT lobe of the liver. GALLBLADDER AND BILE DUCTS: NO gallbladder wall thickening or pericholecystic fluid. Moderate amount of air in the gallbladder fundus in a nondependent location. Moderate amount of air within the intra-and extrahepatic biliary ductal system. Dilatation of the common bile duct and head of the pancreas at 1.6 centimeters. NO definite gallstones. Please correlate with any known history and/or clinical findings. PANCREAS: The visualized portions of the pancreas and pancreatic area are unremarkable. SPLEEN: No splenic masses or significant enlargement. ADRENALS: The RIGHT and LEFT adrenal glands demonstrate NO masses or abnormal enlargement. KIDNEYS AND URETERS: RIGHT KIDNEY: The RIGHT kidney demonstrates NO hydronephrosis, stones or masses. Renal cysts. These are typically considered to be incidental findings. LEFT KIDNEY: The LEFT kidney demonstrates NO hydronephrosis, stones or masses. Renal cysts. These are typically considered to be incidental findings. URETERS: The ureters demonstrate NO stones. Calcifications are present consistent with phleboliths. STOMACH AND BOWEL: STOMACH: The stomach is nondistended with thickened appearing hernandez. NO other evidence to suggest inflammatory changes. This likely represents pseudo-thickening secondary to incompletely distended stomach. SMALL BOWEL: The small bowel demonstrates NO significant distention. There is NO significant wall/ mucosal thickening is demonstrated. There are nondistended loops of small bowel which are partially air filled and demonstrate air-fluid layers. COLON: There is mild thickening to the colonic wall. This is most prominent beginning in the area of the splenic flexure and extending into the LEFT colon. Moderate diverticulosis distally in the LEFT colon. RECTUM: There is mild thickening to the rectal wall. PELVIS: APPENDIX: The appendix is identified. There is NO evidence of appendicitis. BLADDER: The bladder demonstrates NO significant wall thickening or stones. REPRODUCTIVE: NO pelvic masses or cysts >/=2cm.. ABDOMEN and PELVIS: INTRAPERITONEAL SPACE: NO acute changes are demonstrated. No free air. No significant fluid collection. BONES/JOINTS: Moderate degenerative changes are present in the facets. This is more prominent inferiorly. There is grade 1 anterolisthesis present at L4-5. This is likely degenerative. NO spondylolysis. Follow-up flexion-extension study should be considered if indicated to evaluate for abnormal motion. Moderate degenerative changes are present in the vertebral endplates with osteophytes. This is most prominent at L1-2. Endplate sclerosis. Anterior osteophytes at the thoracal lumbar junction and inferior thoracic spine. No acute fracture. No dislocation. SOFT TISSUES: NO acute changes are demonstrated. The soft tissues are unremarkable. VASCULATURE: AORTA: The aorta demonstrates NO evidence of aneurysm or rupture. Mild to moderate vascular calcification. LYMPH NODES: NO acute changes are demonstrated. No enlarged lymph nodes. TUBES, LINES AND DEVICES: Tortuosity and 50% narrowing in the proximal portion of the celiac artery. There is minimal to mild poststenotic dilatation in the vessel. The gastrostomy tube OTHER FINDINGS: The cord to IMPRESSION: 1. Rectal wall thickening with differential including pseudothickening, secondary to incomplete distention and proctitis. Please correlate with any known history and/or clinical findings. 2. Patchy consolidation in the posterior lingula. The differential diagnosis includes atelectasis and/or pneumonia. Followup examination should be considered in 4 to 6 weeks' time, or until there is resolution of the current findings to exclude underlying pathology. 3. There are nondistended loops of small bowel which are partially air filled and demonstrate air-fluid layers. This can be a normal finding; however the differential diagnosis includes minimal or mild ileus and enteritis. 4. Likely pseudo-thickening in the colon; however in the proper clinical setting the differential also includes colitis. 5. Moderate degenerative changes are present in the facets. This is more prominent inferiorly. There is grade 1 anterolisthesis present at L4-5. This is likely degenerative. NO spondylolysis. Follow-up flexion-extension study should be considered if indicated to evaluate for abnormal motion. 6. A nonspecific density is present which is unable to be further characterized on this study and the lateral RIGHT lobe of the liver. This measures less than 1.5 centimeters. This is typically considered to be an incidental finding. NO specific follow-up is recommended unless clinically indicated. Please correlate for history of malignancy <Donna Dodd - Last Filed: 08/02/17 02:27> *DC/Admit/Observation/Transfer - Attestations Scribe Attestion: 08/01/17 13:30 Documentation prepared by Taylor gR, acting as medical registrar for Ana Maria Mir MD. <Taylor Rg - Last Filed: 08/01/17 13:28> - Discharge Dispostion Admit: Yes <Ana Maria Mir - Last Filed: 08/01/17 18:53> - Discharge Dispostion Admit: Yes <Donna Dodd - Last Filed: 08/02/17 02:27> Diagnosis at time of Disposition: Cholecystostomy tube dysfunction - Discharge Dispostion Condition at time of disposition: Guarded
[2017-08-01] MEDS ORDERED: POLYETHYLENE GLYCOL 3350 119 GM BTL PO SCH (13:30)
[2017-08-01 14:11] LABS: BASO % 0.6 % (0-2.0); EOS % 3.4 % (0-4.5); HEMATOCRIT 36.2 % (35.4-49); HEMOGLOBIN 12.8 GM/dL (11.7-16.9); LYMPH % 32.5 % (8-40); MCH 35.1 pg (25.7-33.7); MCHC 35.3 g/dl (32.0-35.9); MEAN CELL VOLUME 99.4 fl (80-96); MEAN PLT VOLUME 8.1 fl (7.5-11.1); MONO % 11.3 % (3.8-10.2); NEUT % 52.2 % (42.8-82.8); PLATELET COUNT 221 K/MM3 (134-434); RBC 3.64 M/mm3 (4.00-5.60); RDW 12.9 % (11.9-15.9); WHITE BLOOD COUNT 6.9 K/mm3 (4.0-10.0)
[2017-08-01 14:24] LABS: INR 1.08 (0.82-1.09); PROTHROMBIN TIME (PATIENT) 12.2 SEC (9.7-13.0)
[2017-08-01 14:27] LABS: ACTIVATED PTT 28.2 SECONDS (26.9-34.4)
[2017-08-01] MEDS ORDERED: SODIUM CHLORIDE 0.9% 1000 ML INFUS.BAG IV ONE (15:21)
[2017-08-01 15:45] LABS: ALBUMIN 3.2 g/dl (3.4-5.0); ANION GAP 2 (8-16); BILIRUBIN,TOTAL 0.3 mg/dL (0.2-1.0); BLOOD UREA NITROGEN 39 mg/dL (7-18); CALCIUM 8.2 mg/dL (8.5-10.1); CHLORIDE 113 mmol/L (98-107); CO2 29 mmol/L (21-32); CREATININE 1.1 mg/dL (0.7-1.3); GLUCOSE,RANDOM 85 mg/dL (74-106); POTASSIUM 4.5 mmol/L (3.5-5.1); SGOT/AST 17 U/L (15-37); SGPT/ALT 14 U/L (12-78); SODIUM 144 mmol/L (136-145); TOT PROT 7.1 g/dl (6.4-8.2)
[2017-08-01 15:46] LABS: ALK PHOS 99 U/L (45-117)
--- NOTE | 2017-08-01 15:48 | CONSULT ---
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 It was placed in 03/21 after he was deemed a poor surgical candidate. US showed gallstones and sludge, thickened gallbladder wall, dilated CBD >1cm with CBD stone(s) present and possibly mild intrahepatic dilation. Cholecystostomy was placed then and 4 months later was accidentally dislodged. We were asked to assess. 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 Cardio/Vascular: Yes: HTN Hepatobiliary: Yes: Cholelithiasis, Cholecystitis (cholecystostomy ), Choledocholithiasis Renal/: Yes: Renal Inusuff Psych: Yes: Depression, Psychosis (features to dementia) Additional Medical History: macular degeneration (legally blind) - Past Surgical History Past Surgical History: Yes: Upper Endoscopy (with ERCP and stone extraction 2014 [place] (too sick for cholecystectomy)) - Alcohol/Substance Use Hx Alcohol Use: No History of Substance Use: reports: None - Smoking History Smoking history: Unknown if ever smoked Have you smoked in the past 12 months: No If you are a former smoker, when did you quit?: 30 YRS AGO - 1-2ppd x 20-30 yrs - Social History Usual Living Arrangement: [facility] ADL: Support Services Home Medications - Allergies Allergies/Adverse Reactions: Allergies Allergy/AdvReac Type Severity Reaction Status Date / Time No Known Allergies Allergy Verified 08/01/17 12:20 - Home Medications Home Medications: Ambulatory Orders Acetaminophen [Tylenol Extra Strength] 500 mg PO DAILY 03/11/17 Ascorbate Calcium [Vitamin C] 500 mg PO DAILY 03/11/17 Cyanocobalamin (Vitamin B-12) [Vitamin B-12] 1,000 mcg PO DAILY 03/11/17 Hypromellose 0.5% Opth Soln [Artificial Tears] 1 drop DAILY 03/11/17 Lactobacillus Acidophilus [Acidophilus] 100 mg PO DAILY 03/11/17 Ranitidine Oral Solution [Zantac Oral Solution -] 150 mg GT DAILY 03/11/17 Sennosides [Senna] 8.6 mg PO DAILY 03/11/17 Metoprolol Tartrate [Lopressor -] 100 mg GT BID tablet 03/26/17 Citalopram Hydrobromide [Celexa -] 10 mg PO DAILY 08/02/17 Clonazepam [Klonopin] 0.5 mg GT DAILY 08/02/17 Hypromellose 0.5% Opth Soln [Artificial Tears] 1 drop OU DAILY 08/02/17 Loperamide HCl Liquid [Imodium Liquid -] 1 mg GT ONCE 08/02/17 Mirtazapine [Remeron -] 15 mg GT HS 08/02/17 Review of Systems - Review of Systems Constitutional: denies: Chills, Fever Eyes: denies: Blurred Vision, Recent Change in Vision HENT: denies: Difficult Swallowing, Throat Pain Neck: denies: Lumps, Swollen Glands Cardiovascular: denies: Chest Pain, Palpitations Respiratory: denies: Cough, SOB Gastrointestinal: reports: Abdominal Pain. denies: Constipation, Diarrhea Genitourinary: denies: Dysuria, Flank Pain Musculoskeletal: denies: Muscle Pain, Muscle Weakness Integumentary: denies: Lesions, Rash Neurological: denies: Syncope, Weakness Endocrine: denies: Unexplained Weight Gain, Unexplained Weight Loss Hematology/Lymphatic: denies: Easily Bruised, Excessive Bleeding Psychiatric: denies: Anxiety, Depression Physical Exam Vital Signs: Vital Signs Temperature 97.9 F 08/01/17 12:00 Pulse Rate 75 08/01/17 12:00 Respiratory Rate 16 08/01/17 12:00 Blood Pressure 138/77 08/01/17 12:00 O2 Sat by Pulse Oximetry (%) 100 08/01/17 12:00 Vital Signs Period Temp Pulse Resp BP Sys/Hernandez Pulse Ox Last 24 Hr 97.9 F 75 16 138/77 100 Constitutional: Yes: Well Nourished, Anxious, Mild Distress Eyes: Yes: Conjunctiva Clear, EOM Intact HENT: Yes: Atraumatic, Normocephalic Neck: Yes: Supple, Trachea Midline Cardiovascular: Yes: Regular Rate and Rhythm, S1, S2 Respiratory: Yes: Regular, CTA Bilaterally Gastrointestinal: Yes: Normal Bowel Sounds, Soft, Abdomen, Obese, Other (PEG LUQ , punctum RUQ no patent tract, no darinage, negative mora's). No: Tenderness , Tenderness, Epigastrium, Tenderness, Rebound Renal/: No: CVA Tenderness - Left, CVA Tenderness - Right Extremities: No: Cool, Cyanosis Edema: No Peripheral Pulses WNL: Yes Integumentary: No: Jaundice, Rash Neurological: Yes: Alert, Oriented Psychiatric: Yes: Alert, Oriented Labs: CBC, BMP 08/01/17 13:43 Imaging - Results Cat Scan: Report Reviewed (air in the gallbladder and biliary tree), Image Reviewed Problem List - Problems (1) Cholecystostomy tube dysfunction Assessment/Plan: 86 yo male MMP dislodged cholecystostomy after an epidode of cholangitis. NPO and IVF hydration IV antibitics IR replacement of Perc. Cholecystostomy Will follow. Thank you for the opportunity to participate in the care of this patient. Code(s): T85.518A - BREAKDOWN (MECHANICAL) OF GI PROSTH DEV/GRFT, INIT (2) Acute cholangitis due to calculus of bile duct with obstruction Code(s): K80.37 - CALCULUS OF BILE DUCT W ACUTE AND CHRONIC CHOLANGITIS W OBST (3) Cholangitis due to bile duct calculus with obstruction Code(s): K80.31 - CALCULUS OF BILE DUCT W CHOLANGITIS, UNSP, WITH OBSTRUCTION (4) Cholelithiasis Code(s): K80.20 - CALCULUS OF GALLBLADDER W/O CHOLECYSTITIS W/O OBSTRUCTION (5) Dementia with behavioral disturbance Code(s): F03.91 - UNSPECIFIED DEMENTIA WITH BEHAVIORAL DISTURBANCE Qualifiers: Dementia type: unspecified type Qualified Code(s): F03.91 - Unspecified dementia with behavioral disturbance (6) Hyperkalemia Code(s): E87.5 - HYPERKALEMIA (7) Hypertension Code(s): I10 - ESSENTIAL (PRIMARY) HYPERTENSION Qualifiers: Hypertension type: essential hypertension Qualified Code(s): I10 - Essential (primary) hypertension
[2017-08-01] MEDS ORDERED: HALOPERIDOL LACTATE 5 MG/ML ONE ×2 (18:17→20:16)
[2017-08-01] MEDS ORDERED: HALOPERIDOL LACTATE 5 MG/ML IM ONE ×2 (18:34→20:00)
[2017-08-01] MEDS ORDERED: traZODone HCL 50 MG TABLET (FP) PO SCH (22:00)
[2017-08-01] MEDS ORDERED: DOCUSATE SODIUM 100 MG CAPSULE (FP) PO SCH (22:00)
--- NOTE | 2017-08-02 02:35 | PN ---
Teaching Attending Note Name of Resident: Caitlin Chow ATTENDING PHYSICIAN STATEMENT I saw and evaluated the patient. I reviewed the resident's note and discussed the case with the resident. I agree with the resident's findings and plan as documented. SUBJECTIVE: 86 yo M with pmhx. of Choleycystectomy tube s/p cholangitis (tube replacement ), recurrent aspiration pneumonia, has PEG tube (tube placed 03/02/17), HTN, and dementia. Presents from [facility] [address] for biliary tube replacement. Pt. pulled out tube. Pt. Non-Verbal. ED COURSE: ED ( Dr. Dodd) spoke with Sx, who according stated there could be pneumobilia and recc. a IR consult OBJECTIVE: Physical: VS: Vital Signs Period Temp Pulse Resp BP Sys/Hernandez Pulse Ox Last 24 Hr 97.9 F-98.9 F 62-75 16-20 119-138/60-77 96-100 GEN: NAD, Resting in bed, AA0X3 HEENT: NCAT, PERRL, would not open mouth CARD: RRR S1, S2 RESP: CTaB ABD: Bsx4, NTD to palpation, Right upper quadrant with incision mild erythema no drainage. PEG tube in place EXT: - C/C/E CBCD WBC 6.9 K/mm3 (4.0-10.0) 08/01/17 13:43 RBC 3.64 M/mm3 (4.00-5.60) L 08/01/17 13:43 Hgb 12.8 GM/dL (11.7-16.9) D 08/01/17 13:43 Hct 36.2 % (35.4-49) 08/01/17 13:43 MCV 99.4 fl (80-96) H 08/01/17 13:43 MCHC 35.3 g/dl (32.0-35.9) 08/01/17 13:43 RDW 12.9 % (11.9-15.9) D 08/01/17 13:43 Plt Count 221 K/MM3 (134-434) D 08/01/17 13:43 MPV 8.1 fl (7.5-11.1) 08/01/17 13:43 CMP Sodium 144 mmol/L (136-145) 08/01/17 15:15 Potassium 4.5 mmol/L (3.5-5.1) 08/01/17 15:15 Chloride 113 mmol/L (98-107) H 08/01/17 15:15 Carbon Dioxide 29 mmol/L (21-32) 08/01/17 15:15 Anion Gap 2 (8-16) L 08/01/17 15:15 BUN 39 mg/dL (7-18) H D 08/01/17 15:15 Creatinine 1.1 mg/dL (0.7-1.3) 08/01/17 15:15 Creat Clearance w eGFR > 60 (>60) 08/01/17 15:15 Random Glucose 85 mg/dL (74-106) D 08/01/17 15:15 Calcium 8.2 mg/dL (8.5-10.1) L 08/01/17 15:15 Total Bilirubin 0.3 mg/dL (0.2-1.0) D 08/01/17 15:15 AST 17 U/L (15-37) D 08/01/17 15:15 ALT 14 U/L (12-78) D 08/01/17 15:15 Alkaline Phosphatase 99 U/L (45-117) D 08/01/17 15:15 Total Protein 7.1 g/dl (6.4-8.2) 08/01/17 15:15 Albumin 3.2 g/dl (3.4-5.0) L D 08/01/17 15:15 Modality: CT Location: [facility] Referring Physician: NIVIA ROBBINS prominent in the LEFT lung base. Patchy consolidation in the posterior lingula. HEART: Calcification is present in the coronary arteries. The coronary arteries were otherwise not evaluated for stenosis or occlusion. ABDOMEN: LIVER: There is NO evidence of abnormal enlargement. A nonspecific density is present which is unable to be further characterized on this study and the lateral RIGHT lobe of the liver. GALLBLADDER AND BILE DUCTS: NO gallbladder wall thickening or pericholecystic fluid. Moderate amount of air in the gallbladder fundus in a nondependent location. Moderate amount of air within the intra-and extrahepatic biliary ductal system. Dilatation of the common bile duct and head of the pancreas at 1.6 centimeters. NO definite gallstones. Please correlate with any known history and/or clinical findings. PANCREAS: The visualized portions of the pancreas and pancreatic area are unremarkable. SPLEEN: No splenic masses or significant enlargement. ADRENALS: The RIGHT and LEFT adrenal glands demonstrate NO masses or abnormal enlargement. KIDNEYS AND URETERS: RIGHT KIDNEY: The RIGHT kidney demonstrates NO hydronephrosis, stones or masses. Renal cysts. These are typically considered to be incidental findings. LEFT KIDNEY: The LEFT kidney demonstrates NO hydronephrosis, stones or masses. Renal cysts. These are typically considered to be incidental findings. URETERS: The ureters demonstrate NO stones. Calcifications are present consistent with phleboliths. STOMACH AND BOWEL: STOMACH: The stomach is nondistended with thickened appearing hernandez. NO other evidence to suggest inflammatory changes. This likely represents pseudo-thickening secondary to incompletely distended stomach. SMALL BOWEL: The small bowel demonstrates NO significant distention. There is NO significant wall/ mucosal thickening is demonstrated. There are nondistended loops of small bowel which are partially air filled and demonstrate air-fluid layers. COLON: There is mild thickening to the colonic wall. This is most prominent beginning in the area of the splenic flexure and extending into the LEFT colon. Moderate diverticulosis distally in the LEFT colon. RECTUM: There is mild thickening to the rectal wall. PELVIS: APPENDIX: The appendix is identified. There is NO evidence of appendicitis. BLADDER: The bladder demonstrates NO significant wall thickening or stones. REPRODUCTIVE: NO pelvic masses or cysts >/=2cm.. ABDOMEN and PELVIS: INTRAPERITONEAL SPACE: NO acute changes are demonstrated. No free air. No significant fluid collection. BONES/JOINTS: Moderate degenerative changes are present in the facets. This is more prominent inferiorly. There is grade 1 anterolisthesis present at L4-5. This is likely degenerative. NO spondylolysis. Follow-up flexion-extension study should be considered if indicated to evaluate for abnormal motion. Moderate degenerative changes are present in the vertebral endplates with osteophytes. This is most prominent at L1-2. Endplate sclerosis. Anterior osteophytes at the thoracal lumbar junction and inferior thoracic spine. No acute fracture. No dislocation. SOFT TISSUES: NO acute changes are demonstrated. The soft tissues are unremarkable. VASCULATURE: AORTA: The aorta demonstrates NO evidence of aneurysm or rupture. Mild to moderate vascular calcification. LYMPH NODES: NO acute changes are demonstrated. No enlarged lymph nodes. TUBES, LINES AND DEVICES: Tortuosity and 50% narrowing in the proximal portion of the celiac artery. There is minimal to mild poststenotic dilatation in the vessel. The gastrostomy tube OTHER FINDINGS: The cord to IMPRESSION: 1. Rectal wall thickening with differential including pseudothickening, secondary to incomplete distention and proctitis. Please correlate with any known history and/or clinical findings. 2. Patchy consolidation in the posterior lingula. The differential diagnosis includes atelectasis and/or pneumonia. Followup examination should be considered in 4 to 6 weeks' time, or until there is resolution of the current findings to exclude underlying pathology. 3. There are nondistended loops of small bowel which are partially air filled and demonstrate air-fluid layers. This can be a normal finding; however the differential diagnosis includes minimal or mild ileus and enteritis. 4. Likely pseudo-thickening in the colon; however in the proper clinical setting the differential also includes colitis. 5. Moderate degenerative changes are present in the facets. This is more prominent inferiorly. There is grade 1 anterolisthesis present at L4-5. This is likely degenerative. NO spondylolysis. Follow-up flexion-extension study should be considered if indicated to evaluate for abnormal motion. 6. A nonspecific density is present which is unable to be further characterized on this study and the lateral RIGHT lobe of the liver. This measures less than 1.5 centimeters. This is typically considered to be an incidental finding. NO specific follow-up is recommended unless clinically indicated. Please correlate for history of malignancy Ambulatory Orders Acetaminophen [Tylenol Extra Strength] 500 mg PO DAILY 03/11/17 Albuterol 2.5/Ipratropium 0.5 [Duoneb -] 1 neb IH QID 03/11/17 Alprazolam [Xanax] 0.25 mg PO Q6H 03/11/17 Ascorbate Calcium [Vitamin C] 500 mg PO DAILY 03/11/17 Cyanocobalamin (Vitamin B-12) [Vitamin B-12] 1,000 mcg PO DAILY 03/11/17 Hypromellose 0.5% Opth Soln [Artificial Tears] 1 drop DAILY 03/11/17 Lactobacillus Acidophilus [Acidophilus] 100 mg PO DAILY 03/11/17 Ranitidine Oral Solution [Zantac Oral Solution -] 150 mg GT DAILY 03/11/17 Sennosides [Senna] 8.6 mg PO DAILY 03/11/17 Metoprolol Tartrate [Lopressor -] 100 mg GT BID tablet 03/26/17 Picc Line Flush [Picc Line Flush -] 8 ml IVPUSH PRN PRN ml 03/26/17 Piperacillin/Tazob 3.375 gm [Zosyn -] 3.375 gm IVPB Q8H-IV 7 Days #21 vial 03/26 ASSESSMENT AND PLAN: 86 M with pmhx. of Dementia, cholecystectomy tube s/p cholangitis who presents with pulling out biliary drain, being admitted for replacement 1.) Pnuemobilia/? Removal of Biliary drain - Zosyn - ID consult - Cx - IR consult for replacement - Type & Screen - NPO - Coags - Sx. Consult appreciated 2.) ?Enteritis/Colitis - Asyx - On Pre-[facility]- Await final read- could be normal findings 3.) HTN - C/W Lopressor 4.) Dvt Ppx - Scds Admit to Med-Sx
[2017-08-02] MEDS ORDERED: PIPERACILLIN/TAZOB 3.375 GM 3.375 GM in DEXTROSE 5%-WATER - 50 ML IVPB ONE (03:00)
[2017-08-02] MEDS ORDERED: ALPRAZolam 0.25 MG TABLET PO PRN (03:00)
[2017-08-02] MEDS ORDERED: ALBUTEROL SO4 2.5/IPRATROPIUM 0.5 INH SOL 3 ML VIAL.NEB. NEB PRN (03:00)
[2017-08-02] MEDS ORDERED: PIPERACILLIN/TAZOB 3.375 GM 3.375 GM/50 ML BAG IVPB ONE (03:08)
[2017-08-02] MEDS ORDERED: ALPRAZolam 0.25 MG TABLET GT PRN (03:15)
--- NOTE | 2017-08-02 03:19 | HP ---
CHIEF COMPLAINT: PCP: Dr. Raymond Pal HISTORY OF PRESENT ILLNESS: 86[address] M [facility] resident with PMHx of Dementia (non-verbal) was brought to the ER after pulling out his cholecystostomy tube. Hx was obtained from the charts. He was admitted in [facility] ICU in Jan-Feb 2017 for sepsis 2/2 cholangitis. The patient was considered high risk for surgery, and thus received a perc cholecystostomy drain by IR. As per surgeon and ID, he would need the drain indefinitely because if it were removed, he would become septic again. In the ER, the patient received a fluid bolus, and multiple Ativan, Benadryl, and Haldol injections to maintain cooperation. Surgery was consulted, and informed the ER physician that IR will replace C-tube tmrw. PAST MEDICAL HISTORY: Alzheimer's, Macular degeneration (blind), Vitamin B12 deficiency, HTN, Depression, Bipolar Disorer, Osteoarthritis PAST SURGICAL HISTORY: PEG tube, C-tube Social History: Lives in [facility]. No reported toxic habits Allergies: No Known Allergies Allergy (Verified 08/01/17 12:20) HOME MEDICATIONS: Home Medications Medication Instructions Recorded Acetaminophen [Tylenol Extra 500 mg PO DAILY 03/11/17 Strength] Albuterol 2.5/Ipratropium 0.5 1 neb IH QID 03/11/17 [Duoneb -] Alprazolam [Xanax] 0.25 mg PO Q6H 03/11/17 Ascorbate Calcium [Vitamin C] 500 mg PO DAILY 03/11/17 Cyanocobalamin (Vitamin B-12) 1,000 mcg PO DAILY 03/11/17 [Vitamin B-12] Hypromellose 0.5% Opth Soln 1 drop DAILY 03/11/17 [Artificial Tears] Lactobacillus Acidophilus 100 mg PO DAILY 03/11/17 [Acidophilus] Ranitidine Oral Solution [Zantac 150 mg GT DAILY 03/11/17 Oral Solution -] Sennosides [Senna] 8.6 mg PO DAILY 03/11/17 Metoprolol Tartrate [Lopressor -] 100 mg GT BID tablet 03/26/17 Picc Line Flush [Picc Line Flush -] 8 ml IVPUSH PRN PRN ml 03/26/17 Piperacillin/Tazob 3.375 gm [Zosyn 3.375 gm IVPB Q8H-IV 7 Days #21 03/26/17 -] vial REVIEW OF SYSTEMS Unable to obtain PHYSICAL EXAMINATION Vital Signs Period Temp Pulse Resp BP Sys/Hernandez Pulse Ox Last 24 Hr 97.9 F-98.9 F 58-75 14-20 119-155/60-92 96-100 GEN: SLeepy, yawning, responds to touch HEENT: PERRLA CV: S1, S2, RRR LUNG: Grossly clear but difficult exam due to patient noncooperation ABD: Soft, NT. Peg tube in place. C-tube site has minimal erythema, no drainage MSK: No edema NEURO: Difficult to perform, all movements were symmetric, no facial droop ASSESSMENT/PLAN: 86yo M Norma guzman [place] resident with PMHx of Dementia was brought to the ER after pulling out his cholecystostomy tube, admitted for re-insertion # Cholecystostomy Tube Dislodgement -- Removed by patient as per NH notes. No signs of infection. CT abd notes air w /in gallbladder, could be normal after drain removal vs pneumobilia. Plan for IR to re-insert tmrw. Preop labwork including T&S, Coag, EKG, CXR. npo. Consult surgery + IR. Zosyn for surgical ppx # Colitis -- Inflammation of colon/rectum detected on CT, will not treat since patient is asymptomatic # HTN -- Controlled. Continue Lopressor 100 BID # Alzheimers -- Continue Xanax PRN for anxiety # ?Asthma -- Continue Duoneb PRN # Constipation -- Continue Senna # FEN/PpX -- No IVF, NPO for sx tmrw, patient normally takes ground food via PO, SCDs # Dispo -- Admit to med/surg Case d/w Dr Chow & Dr Mitchell Haley MD - pGY1 Night Hot Roll Inspector Visit type - Emergency Visit Emergency Visit: Yes ED Registration Date: 08/01/17 Care time: The patient presented to the Emergency Department on the above date and was hospitalized for further evaluation of their emergent condition. - New Patient This patient is new to me today: Yes Date on this admission: 08/02/17 - Critical Care Critical Care patient: No Hospitalist Screening - Colonoscopy Questionnaire Colonoscopy Questionnaire: Colonoscopy Questionnaire - Patient: 50 - 75 years old and never had a screening colonoscopy: Unknown History of colon or rectal polyps, or CA: Unknown History of IBD, Crohn's disease or UC: Unknown History of abdominal radiation therapy as a child: Unknown - Relative: 1 with colon or rectal CA, or polyps at age 60 or younger: Unknown Colon or rectal CA diagnosed at age 45 or younger: Unknown Multiple relatives with colon or rectal CA: Unknown - Outcome: Screening Result: Negative Screen
[2017-08-02 06:48] LABS: BASO % 0.6 % (0-2.0); EOS % 2.8 % (0-4.5); HEMATOCRIT 36.8 % (35.4-49); HEMOGLOBIN 12.7 GM/dL (11.7-16.9); LYMPH % 29.7 % (8-40); MCH 34.3 pg (25.7-33.7); MCHC 34.6 g/dl (32.0-35.9); MEAN CELL VOLUME 99.2 fl (80-96); MEAN PLT VOLUME 8.1 fl (7.5-11.1); MONO % 11.7 % (3.8-10.2); NEUT % 55.2 % (42.8-82.8); PLATELET COUNT 193 K/MM3 (134-434); RBC 3.72 M/mm3 (4.00-5.60)
[2017-08-02 07:02] LABS: INR 1.11 (0.82-1.09); PROTHROMBIN TIME (PATIENT) 12.5 SEC (9.7-13.0)
[2017-08-02 07:04] LABS: ACTIVATED PTT 28.4 SECONDS (26.9-34.4)
[2017-08-02 07:17] LABS: ALK PHOS 89 U/L (45-117); ANION GAP 5 (8-16); BILIRUBIN,TOTAL 0.7 mg/dL (0.2-1.0); BLOOD UREA NITROGEN 30 mg/dL (7-18); CALCIUM 8.2 mg/dL (8.5-10.1); CHLORIDE 111 mmol/L (98-107); CO2 26 mmol/L (21-32); GLUCOSE,RANDOM 85 mg/dL (74-106); PHOSPHOROUS 3.9 mg/dL (2.5-4.9); POTASSIUM 3.9 mmol/L (3.5-5.1); SGOT/AST 19 U/L (15-37); SGPT/ALT 12 U/L (12-78); SODIUM 142 mmol/L (136-145); TOT PROT 6.5 g/dl (6.4-8.2)
[2017-08-02] MEDS ORDERED: SENNOSIDES 8.8 MG/5 ML BULK BOTTLE PO SCH (10:00)
[2017-08-02] MEDS ORDERED: RANITIDINE HCL 150 MG/10 ML UNIT-DOSE GT SCH (10:00)
[2017-08-02] MEDS ORDERED: ACETAMINOPHEN 650 MG/20.3 ML ORAL SOLUTION (CUPS) GT SCH (10:00)
[2017-08-02] MEDS ORDERED: SENNOSIDES 8.8 MG/5 ML BULK BOTTLE GT SCH (10:00)
[2017-08-02] MEDS ORDERED: METOPROLOL TARTRATE 50 MG TABLET (FP) GT SCH (10:00)
--- NOTE | 2017-08-02 11:44 | DS ---
Physical Exam: SUBJECTIVE: Patient seen and examined on stretcher in ED s/p IR procedure to replace cholecystostomy tube. OBJECTIVE: Vital Signs Period Temp Pulse Resp BP Sys/Hernandez Pulse Ox Last 24 Hr 97.9 F-98.9 F 58-89 14-20 119-162/40-92 95-100 PHYSICAL EXAM GENERAL: The patient is sleeping but arousable. Knows name. Resists medical intervention. LUNGS: CTA HEART: RRR, S1, S2 ABDOMEN: G tube in place, clamped, underlying skin intact; right perc tube in place draining well, 100ccs dark bilious fluid in bag EXTREMITIES: 2+ pulses, warm, well-perfused, no edema. LABS Laboratory Results - last 24 hr 08/01/17 08/01/17 08/01/17 13:43 13:43 15:15 WBC 6.9 RBC 3.64 L Hgb 12.8 D Hct 36.2 MCV 99.4 H MCH 35.1 H MCHC 35.3 RDW 12.9 D Plt Count 221 D MPV 8.1 Neutrophils % 52.2 Lymphocytes % 32.5 D Monocytes % 11.3 H Eosinophils % 3.4 Basophils % 0.6 PT with INR 12.20 INR 1.08 PTT (Actin FS) 28.2 Sodium 144 Potassium 4.5 Chloride 113 H Carbon Dioxide 29 Anion Gap 2 L BUN 39 H D Creatinine 1.1 Creat Clearance w eGFR > 60 Random Glucose 85 D Calcium 8.2 L Phosphorus Magnesium Total Bilirubin 0.3 D AST 17 D ALT 14 D Alkaline Phosphatase 99 D Total Protein 7.1 Albumin 3.2 L D Blood Type Antibody Screen 08/02/17 08/02/17 08/02/17 06:20 06:20 06:20 WBC 7.0 RBC 3.72 L Hgb 12.7 Hct 36.8 MCV 99.2 H MCH 34.3 H MCHC 34.6 RDW 13.0 Plt Count 193 MPV 8.1 Neutrophils % 55.2 Lymphocytes % 29.7 Monocytes % 11.7 H Eosinophils % 2.8 Basophils % 0.6 PT with INR 12.50 INR 1.11 PTT (Actin FS) 28.4 Sodium 142 Potassium 3.9 Chloride 111 H Carbon Dioxide 26 Anion Gap 5 L BUN 30 H D Creatinine 1.0 Creat Clearance w eGFR > 60 Random Glucose 85 Calcium 8.2 L Phosphorus 3.9 Magnesium 2.0 D Total Bilirubin 0.7 D AST 19 ALT 12 Alkaline Phosphatase 89 Total Protein 6.5 Albumin 3.0 L Blood Type Antibody Screen 08/02/17 06:20 WBC RBC Hgb Hct MCV MCH MCHC RDW Plt Count MPV Neutrophils % Lymphocytes % Monocytes % Eosinophils % Basophils % PT with INR INR PTT (Actin FS) Sodium Potassium Chloride Carbon Dioxide Anion Gap BUN Creatinine Creat Clearance w eGFR Random Glucose Calcium Phosphorus Magnesium Total Bilirubin AST ALT Alkaline Phosphatase Total Protein Albumin Blood Type O NEGATIVE Antibody Screen Negative HOSPITAL COURSE: Date of Admission:08/01/17 Date of Discharge: 08/02/17 Pre hospital course 86 year-old male resident of [facility] with PMH significant for dementia (non-verbal) was brought to the ER after pulling out his cholecystostomy tube. Hx was obtained from the charts. He was admitted in [facility] ICU in Jan-Feb 2017 for sepsis 2/2 cholangitis. The patient was considered high risk for surgery, and thus received a perc cholecystostomy drain by IR. As per surgeon and ID, he would need the drain indefinitely because if it were removed, he would become septic again. ER course In the ER, the patient received a fluid bolus, and multiple Ativan, Benadryl, and Haldol injections to maintain cooperation. Surgery was consulted, and informed the ER physician that IR will replace C-tube tomorrow. Subsequent hospital course A new percutaneous cholecystostomy tube was placed today by IR. Draining well. Patient returning to [facility]. Minutes to complete discharge: 35 Discharge Summary Reason For Visit: CHOLECYSTOSTOMY Current Active Problems Cholecystostomy tube dysfunction (Acute) Condition: Improved - Instructions Diet, Activity, Other Instructions: Percutaneous drainage tube was replaced today 08/02/17. Draining dark bilious fluid. Referrals: Raymond Pal MD [Staff Physician] - Disposition: [facility] - Home Medications Comprehensive Discharge Medication List: Ambulatory Orders Acetaminophen [Tylenol Extra Strength] 500 mg PO DAILY 03/11/17 Ascorbate Calcium [Vitamin C] 500 mg PO DAILY 03/11/17 Cyanocobalamin (Vitamin B-12) [Vitamin B-12] 1,000 mcg PO DAILY 03/11/17 Hypromellose 0.5% Opth Soln [Artificial Tears] 1 drop DAILY 03/11/17 Lactobacillus Acidophilus [Acidophilus] 100 mg PO DAILY 03/11/17 Ranitidine Oral Solution [Zantac Oral Solution -] 150 mg GT DAILY 03/11/17 Sennosides [Senna] 8.6 mg PO DAILY 03/11/17 Metoprolol Tartrate [Lopressor -] 100 mg GT BID tablet 03/26/17 Citalopram Hydrobromide [Celexa -] 10 mg PO DAILY 08/02/17 Clonazepam [Klonopin] 0.5 mg GT DAILY 08/02/17 Hypromellose 0.5% Opth Soln [Artificial Tears] 1 drop OU DAILY 08/02/17 Loperamide HCl Liquid [Imodium Liquid -] 1 mg GT ONCE 08/02/17 Mirtazapine [Remeron -] 15 mg GT HS 08/02/17 This patient is new to me today: Yes Date on this admission: 08/02/17 Emergency Visit: Yes ED Registration Date: 08/01/17 Care time: The patient presented to the Emergency Department on the above date and was hospitalized for further evaluation of their emergent condition. Critical Care patient: No - Discharge Referral Referred to [facility] Med [facility] No
--- NOTE | 2017-08-02 12:11 | EKG ---
Test Reason : Blood Pressure : / mmHG Vent. Rate : 060 BPM Atrial Rate : 060 BPM P-R Int : 178 ms QRS Dur : 086 ms QT Int : 428 ms P-R-T Axes : 041 -53 -27 degrees QTc Int : 428 ms NORMAL SINUS RHYTHM LEFT AXIS DEVIATION POSSIBLE ANTERIOR INFARCT , AGE UNDETERMINED ABNORMAL ECG WHEN COMPARED WITH ECG OF 22-MAR-2017 12:22, T WAVE INVERSION NOW EVIDENT IN INFERIOR LEADS Confirmed by VERN TRENT MD ([id number]) on 08/02/2017 12:10:59 PM Referred By: Confirmed By:VERN TRENT MD
[2017-08-02 13:08] VITALS: BMI 15.3
[2017-08-02 14:03] VITALS: BP 126/90; PULSE 73; TEMP 97.9
== END 2017-08-02 13:45 | DRG 920 ==
LOC: JER 12:00 → JERBED 18:54 → OBSVTOIN 08-02 02:53
PROVIDERS: ADMIT Internal Medicine; ATTEND Nurse Practitioner Acute Care
PROC: 0F9430Z Drainage of Gallbladder with Drainage Device, Percutaneous Approach (ICD-10-PCS; principal; 2017-08-02)
PROC: BF13YZZ Fluoroscopy of Gallbladder and Bile Ducts using Other Contrast (ICD-10-PCS; 2017-08-02)
DX: T85.520A Displacement of bile duct prosthesis, initial encounter (principal); F02.81 Dementia in other diseases classified elsewhere, unspecified severity, with behavioral disturbance; I10 Essential (primary) hypertension; Z66 Do not resuscitate; Z93.1 Gastrostomy status; H35.30 Unspecified macular degeneration; H54.8 Legal blindness, as defined in USA; Y84.8 Other medical procedures as the cause of abnormal reaction of the patient, or of later complication, without mention of misadventure at the time of the procedure; E87.5 Hyperkalemia; K52.9 Noninfective gastroenteritis and colitis, unspecified; E53.8 Deficiency of other specified B group vitamins; G30.9 Alzheimer's disease, unspecified; F31.9 Bipolar disorder, unspecified
CPT/HCPCS: 36415; 47490; 71045-TC-FY; 74177-TC; 76000-TC-FY; 76098-TC-FY; 80053; 83735; 84100; 85025; 85610; 85730; 86850; 86900; 86901; 87070; 87075; 87186; 87205; 87899; 93005; 93010; 99285-25; A4358; C1729; C1769; C1887; G0378; J7030

== ENCOUNTER 2017-10-10 14:37 | Observation (INO) | payer OTHER ==
[2017-10-10 14:55] VITALS: BMI 28.3
--- NOTE | 2017-10-10 14:55 | PDOC ---
History of Present Illness - General Chief Complaint: Wound Stated Complaint: REPLACE FEEDING TUBE - History of Present Illness Initial Comments: 87 year old male with PMH of cholecystostomy (s/p cholangitis (original tube placement 02/02/17 with one episode of replacement after accidental removal)), recurrent aspiration pneumonia, PEG tube ( tube placement 03/02/2017), HTN, and dementia BIBA from [facility] on [address] after accidentally removing his cholecystostomy tube while asleep. Per the NH the tube was found intact on the floor by his bed in the morning. The patient states he woke up this AM and his tube was out but admits to having a slightly difficult time sleeping where he was turning frequently. Denies fevers, chills, nausea, vomiting, diarrhea, constipation, abdominal pain, chest pain, cough, or other sick symptoms. 10/10/17 14:59 Past History - Past Medical History Allergies/Adverse Reactions: Allergies Allergy/AdvReac Type Severity Reaction Status Date / Time No Known Allergies Allergy Verified 08/01/17 12:20 Home Medications: Ambulatory Orders Acetaminophen [Tylenol Extra Strength] 500 mg GT DAILY 03/11/17 Ascorbate Calcium [Vitamin C] 500 mg GT DAILY 03/11/17 Cyanocobalamin (Vitamin B-12) [Vitamin B-12] 1,000 mcg GT DAILY 03/11/17 Lactobacillus Acidophilus [Acidophilus] 1 tab GT DAILY 03/11/17 Ranitidine Oral Solution [Zantac Oral Solution -] 150 mg GT BID 03/11/17 Sennosides [Senna] 2 tab GT HS 03/11/17 Metoprolol Tartrate [Lopressor -] 100 mg GT BID tablet 03/26/17 Citalopram Hydrobromide [Celexa -] 10 mg GT DAILY 08/02/17 Clonazepam [Klonopin] 0.25 mg GT DAILY 08/02/17 Hypromellose 0.5% Opth Soln [Artificial Tears] 1 drop OU HS 08/02/17 Mirtazapine [Remeron -] 15 mg GT HS 08/02/17 Amlodipine Besylate [Norvasc -] 5 mg GT DAILY 10/10/17 COPD: No Dementia: Yes (Alzheimers) GI Disorders: Yes (cholecystitis, ERCP w/stone extraction 2014) HTN: Yes Psychiatric Problems: Yes Seizures: Yes (depression,pshycosis (dementia)) - Suicide/Smoking/Psychosocial Hx Smoking History: Never smoked Have you smoked in the past 12 months: No If you are a former smoker, when did you quit?: 30 YRS AGO - 1-2ppd x 20-30 yrs Information on smoking cessation initiated: No Hx Alcohol Use: No Drug/Substance Use Hx: No Substance Use Type: None Review of Systems - Review of Systems Constitutional: No: Chills, Diaphoresis, Fever HEENTM: No: Blurred Vision, Double Vision, Cataracts Respiratory: No: Cough, Orthopnea, Other Cardiac (ROS): No: Chest Pain ABD/GI: No: Nausea, Vomiting : No: Burning, Dysuria, Discharge Musculoskeletal: No: Back Pain, Joint Pain, Muscle Weakness Integumentary: No: Bruising, Erythema, Flushing, Lesions Neurological: No: Headache, Numbness, Paresthesia Hematologic/Lymphatic: No: Anemia, Blood Clots *Physical Exam - Vital Signs Last Vital Signs Temp Pulse Resp BP Pulse Ox 97.8 F 50 L 20 153/65 100 10/10/17 14:53 10/10/17 14:53 10/10/17 14:53 10/10/17 14:53 10/10/17 14:53 - Physical Exam General Appearance: Yes: Nourished, Appropriately Dressed. No: Apparent Distress HEENT: positive: EOMI, HALEY, Normal ENT Inspection, Normal Voice, Other ( Appears slightly hard of hearing) Neck: positive: Trachea midline, Normal Thyroid, Supple. negative: Tender, Rigid Respiratory/Chest: positive: Lungs Clear, Normal Breath Sounds. negative: Chest Tender, Respiratory Distress, Accessory Muscle Use Cardiovascular: positive: Regular Rhythm, Regular Rate Gastrointestinal/Abdominal: positive: Normal Bowel Sounds, Flat, Soft, Other ( Feeding tube in place with site C/D/I, cholecystostomy site C/D/I wthout evidence of any tube in place.). negative: Tender Lymphatic: positive: Tenderness. negative: Adenopathy Musculoskeletal: positive: Normal Inspection. negative: CVA Tenderness Extremity: positive: Normal Capillary Refill, Normal Inspection, Normal Range of Motion. negative: Tender Integumentary: positive: Normal Color, Dry, Warm Neurologic: positive: Fully Oriented, Alert, Normal Mood/Affect, Normal Response , Motor Strength 5/5 ED Treatment Course - LABORATORY CBC & Chemistry Diagram: 10/10/17 15:20 10/10/17 15:20 Medical Decision Making - Medical Decision Making 87 year old male with permanent cholecystostomy drainage tube in place who displaced his tube in his sleep. Will obtain preop labs and admit to hospitalist in preparation for mainor tube replacement. EKG demonstrating Rate 50 , QRS78, [id number], normal axis, with overall poor baseline but no obvious ST changes but TWI in the inferior leads that were present on EKG from 08/02/17. Labs overall are not acutely concerning. 10/10/17 16:08 Hospitalist service microblogged and aware of patient. 10/10/17 17:21 *DC/Admit/Observation/Transfer Diagnosis at time of Disposition: Cholecystostomy tube dysfunction Qualifiers: Encounter type: initial encounter Qualified Code(s): T85.518A - Breakdown ( mechanical) of other gastrointestinal prosthetic devices, implants and grafts, initial encounter - Discharge Dispostion Condition at time of disposition: Stable Decision to Admit order: Yes - Referrals - Patient Instructions - Post Discharge Activity
[2017-10-10] MEDS ORDERED: DEXTROSE 5%-NORMAL SALINE 1,000 ML IV SCH (15:30)
[2017-10-10 15:35] LABS: BASO % 0.5 % (0-2.0); EOS % 3.6 % (0-4.5); HEMATOCRIT 34.9 % (35.4-49); LYMPH % 33.2 % (8-40); MCH 34.4 pg (25.7-33.7); MCHC 34.5 g/dl (32.0-35.9); MEAN CELL VOLUME 99.8 fl (80-96); MEAN PLT VOLUME 8.4 fl (7.5-11.1); MONO % 12.4 % (3.8-10.2); NEUT % 50.3 % (42.8-82.8); PLATELET COUNT 199 K/MM3 (134-434); RBC 3.49 M/mm3 (4.00-5.60); RDW 13.8 % (11.9-15.9); WHITE BLOOD COUNT 5.5 K/mm3 (4.0-10.0)
[2017-10-10 15:55] LABS: INR 1.05 (0.82-1.09); PROTHROMBIN TIME (PATIENT) 11.9 SEC (9.7-13.0)
--- NOTE | 2017-10-10 15:56 | PDOC ---
Attending Attestation - HPI HPI: 10/10/17 17:08 The patient is an 87 year old male with past medical history of cholecystostomy (s/p cholangitis; tube placement on 02/02/17), PEG tube, pneumonia, hypertension , and dementia who presents to the ED for displaced cholecystostomy tube after accidentally taking it out in his sleep. Patient denies any pain, fever, chills , nausea, vomiting, diarrhea, cough, SOB, CP, or urinary complaints. - Physicial Exam PE: 10/10/17 17:08 GENERAL: Awake, alert, agitated, demented, moving all extremities. HEAD: No signs of trauma EYES: PERRLA, EOMI, sclera anicteric, conjunctiva clear ENT: Auricles normal inspection, hearing grossly normal, nares patent, oropharynx clear without exudates. Moist mucosa NECK: Normal ROM, supple, no lymphadenopathy, JVD, or masses LUNGS: Breath sounds equal, poor inspiratory effort. No wheezes, and no crackles HEART: Regular rate and rhythm, normal S1 and S2, no murmurs, rubs or gallops ABDOMEN: Cholecystostomy tube is out with dry blood around, no active bleeding. PEG tube in place. Soft, nontender, normoactive bowel sounds. No guarding, no rebound. No masses EXTREMITIES: Normal range of motion, no edema. No clubbing or cyanosis. No cords, erythema, or tenderness NEUROLOGICAL: Cranial nerves II through XII grossly intact. SKIN: Warm, Dry, normal turgor, no rashes - Medical Decision Making 10/10/17 17:11 Documentation prepared by Priti Browning, acting as biomedical electronics technician for Marylu Parisi DO. <Priti Browning - Last Filed: 10/10/17 17:08> - Resident Resident Name: Tim Barron - ED Attending Attestation I have performed the following: I have examined & evaluated the patient, The case was reviewed & discussed with the resident, I agree w/resident's findings & plan, Exceptions are as noted - Medical Decision Making 10/10/17 15:54 I, Dr. Marylu Parisi DO, attest that this document has been prepared under my direction and personally reviewed by me in its entirety. I further attest, that it accurately reflects all work, treatment, procedures and medical decision -making performed by me. 10/10/17 15:54 a/p: 87yo male from [facility] for eval of cholecystostomy tube that was out of the patient -unsure how the tube fell out -pt with alzheimers disease and is a poor historian -will send labs, ekg, cxr, RUQ u/s -will place IR order for mainor tube placement tomorrow -ivf hydration -will monitor and reassess 10/10/17 17:29 pt will be obs overnight to [facility] pending mainor tube tomorrow with IR <Marylu Parisi - Last Filed: 10/10/17 17:29> Heart Score/ECG Review - ECG Intrepretation Comment:: 10/10/17 15:55 junctional at 50, baseline artifact, no acute st/t wave findings <Marylu Parisi - Last Filed: 10/10/17 17:29>
[2017-10-10 16:03] LABS: ALBUMIN 2.9 g/dl (3.4-5.0); ANION GAP 3 (8-16); BILIRUBIN,TOTAL 0.2 mg/dL (0.2-1.0); BLOOD UREA NITROGEN 25 mg/dL (7-18); CALCIUM 7.8 mg/dL (8.5-10.1); CHLORIDE 108 mmol/L (98-107); CO2 31 mmol/L (21-32); CREATININE 1.2 mg/dL (0.7-1.3); GLUCOSE,RANDOM 84 mg/dL (74-106); POTASSIUM 4.7 mmol/L (3.5-5.1); SGOT/AST 13 U/L (15-37); SGPT/ALT 26 U/L (12-78); SODIUM 142 mmol/L (136-145); TOT PROT 6.3 g/dl (6.4-8.2)
[2017-10-10 16:04] LABS: ALK PHOS 107 U/L (45-117)
--- NOTE | 2017-10-10 18:03 | HP ---
Addendum entered and electronically signed by Darinel Fleming, RESIDENT 10/10/17 21:02: Correction of below: Patient had a cholecystOSTOMY tube placed on 02/02/17. The patient still has a gallbladder in place at this time. The patient never underwent cholecystectomy as he was not a candidate for surgery. Original Note: <MatSusan - Last Filed: 10/10/17 18:51> CHIEF COMPLAINT: pulled cholecystostomy tube HISTORY OF PRESENT ILLNESS: Patient is a 87 year old male with a past medical history of alzheimers disease , HTN, PNA, PEG tube placement, and cholecystectomy (s/p cholangitis; tube placement on 02/02/17 who presents to the ED for accidental removal of cholecystostomy tube. Patient understands why he is here and reports he had no complaints besides being hungry. Patient is pleasantly confused. ER course was notable for: (1) EKG (2) CXR (3) Recent Travel: unknown PAST MEDICAL HISTORY: alzheimers disease, HTN, PNA PAST SURGICAL HISTORY: PEG tube placement, and cholecystectomy (02/02/17) Social History: Smoking: Alcohol: Drugs: Family History: Allergies No Known Allergies Allergy (Verified 08/01/17 12:20) HOME MEDICATIONS: Home Medications Medication Instructions Recorded Acetaminophen [Tylenol Extra 500 mg GT DAILY 03/11/17 Strength] Ascorbate Calcium [Vitamin C] 500 mg GT DAILY 03/11/17 Cyanocobalamin (Vitamin B-12) 1,000 mcg GT DAILY 03/11/17 [Vitamin B-12] Lactobacillus Acidophilus 1 tab GT DAILY 03/11/17 [Acidophilus] Ranitidine Oral Solution [Zantac 150 mg GT BID 03/11/17 Oral Solution -] Sennosides [Senna] 2 tab GT HS 03/11/17 Metoprolol Tartrate [Lopressor -] 100 mg GT BID tablet 03/26/17 Citalopram Hydrobromide [Celexa -] 10 mg GT DAILY 08/02/17 Clonazepam [Klonopin] 0.25 mg GT DAILY 08/02/17 Hypromellose 0.5% Opth Soln 1 drop OU HS 08/02/17 [Artificial Tears] Mirtazapine [Remeron -] 15 mg GT HS 08/02/17 Amlodipine Besylate [Norvasc -] 5 mg GT DAILY 10/10/17 REVIEW OF SYSTEMS CONSTITUTIONAL: Absent: fever, chills, diaphoresis, generalized weaknes HEENT: Absent: rhinorrhea, nasal congestion, throat pain, throat swelling CARDIOVASCULAR: Absent: chest pain, syncope, palpitations, irregular heart rate RESPIRATORY: Absent: cough, shortness of breath, dyspnea with exertion GASTROINTESTINAL: Absent: abdominal pain, abdominal distension, nausea, vomiting, diarrhea, constipation GENITOURINARY: Absent: dysuria, frequency, urgency, hesitancy, hematuria MUSCULOSKELETAL: Absent: myalgia, arthralgia, joint swelling SKIN: Absent: rash, itching, pallor HEMATOLOGIC/IMMUNOLOGIC: Absent: easy bleeding, easy bruising NEUROLOGIC: Absent: headache, focal weakness or paresthesias PHYSICAL EXAMINATION Vital Signs - 24 hr 10/10/17 14:53 Temperature 97.8 F Pulse Rate 50 L Respiratory 20 Rate Blood Pressure 153/65 O2 Sat by Pulse 100 Oximetry (%) GENERAL: Awake, alert, and fully oriented, in no acute distress. HEAD: Normal with no signs of trauma. EYES: Pupils equal, round and reactive to light, extraocular movements intact EARS, NOSE, THROAT: Ears normal, nares patent, oropharynx clear without exudates. Moist mucous membranes. NECK: Normal range of motion LUNGS: Breath sounds equal, clear to auscultation bilaterally. No wheezes, and no crackles HEART: Regular rate and rhythm, normal S1 and S2 without murmur, rub or gallop. ABDOMEN: Soft, nontender, not distended, normoactive bowel sounds, no guarding, no rebound, no masses, PEG tube in place MUSCULOSKELETAL: Normal range of motion at all joints UPPER EXTREMITIES: 2+ pulses, warm, well-perfused. No peripheral edema. LOWER EXTREMITIES: 2+ pulses, warm, well-perfused. No calf tenderness. No peripheral edema. NEUROLOGICAL: Cranial nerves II-XII intact. Normal speech. . PSYCHIATRIC: Cooperative. Good eye contact. Appropriate mood and affect. SKIN: Warm, dry, normal turgor, no rashes or lesions noted, normal capillary refill. Laboratory Results - last 24 hr 10/10/17 10/10/17 10/10/17 15:20 15:20 15:20 WBC 5.5 RBC 3.49 L Hgb 12.0 Hct 34.9 L MCV 99.8 H MCH 34.4 H MCHC 34.5 RDW 13.8 Plt Count 199 MPV 8.4 Absolute Neuts (auto) 2.8 Neutrophils % 50.3 Lymphocytes % 33.2 Monocytes % 12.4 H Eosinophils % 3.6 Basophils % 0.5 Nucleated RBC % 0 PT with INR 11.90 INR 1.05 Sodium 142 Potassium 4.7 D Chloride 108 H Carbon Dioxide 31 Anion Gap 3 L BUN 25 H Creatinine 1.2 Creat Clearance w eGFR 57.14 Random Glucose 84 Calcium 7.8 L Total Bilirubin 0.2 AST 13 L D ALT 26 D Alkaline Phosphatase 107 Total Protein 6.3 L Albumin 2.9 L Blood Type Antibody Screen 10/10/17 15:20 WBC RBC Hgb Hct MCV MCH MCHC RDW Plt Count MPV Absolute Neuts (auto) Neutrophils % Lymphocytes % Monocytes % Eosinophils % Basophils % Nucleated RBC % PT with INR INR Sodium Potassium Chloride Carbon Dioxide Anion Gap BUN Creatinine Creat Clearance w eGFR Random Glucose Calcium Total Bilirubin AST ALT Alkaline Phosphatase Total Protein Albumin Blood Type O NEGATIVE Antibody Screen Negative ASSESSMENT/PLAN: Patient is a 87 year old male with a past medical history of alzheimers disease , HTN, PNA, PEG tube placement, and cholecystectomy (s/p cholangitis; tube placement on 02/02/17 who presents to the ED for accidental removal of cholecystostomy tube. #Cholecystosomy tube placement - EKG: WNL - f/u CXR - f/u Marizol, see if tube placement still necessary - Labs WNL - ED: D5 NS @110 #Bradycardic - monitor vital signs , pulse 50 on admission #DVT PPX - SCD's in place Visit type - Emergency Visit Emergency Visit: Yes ED Registration Date: 10/10/17 Care time: The patient presented to the Emergency Department on the above date and was hospitalized for further evaluation of their emergent condition. - New Patient This patient is new to me today: Yes Date on this admission: 10/10/17 - Critical Care Critical Care patient: No Hospitalist Screening - Colonoscopy Questionnaire Colonoscopy Questionnaire: Colonoscopy Questionnaire - Patient: 50 - 75 years old and never had a screening colonoscopy: Unknown History of colon or rectal polyps, or CA: Unknown History of IBD, Crohn's disease or UC: Unknown History of abdominal radiation therapy as a child: Unknown - Relative: 1 with colon or rectal CA, or polyps at age 60 or younger: Unknown Colon or rectal CA diagnosed at age 45 or younger: Unknown Multiple relatives with colon or rectal CA: Unknown - Outcome: Screening Result: Negative Screen <Basim Gomez - Last Filed: 10/10/17 21:47> Patient was send from [facility] since patient his cholecystostomy tube came out at [place] Vital Signs Temperature 97.8 F 10/10/17 14:53 Pulse Rate 56 L 10/10/17 20:43 Respiratory Rate 18 10/10/17 20:43 Blood Pressure 150/76 10/10/17 20:43 O2 Sat by Pulse Oximetry (%) 100 10/10/17 20:44 CBCD WBC 5.5 K/mm3 (4.0-10.0) 10/10/17 15:20 RBC 3.49 M/mm3 (4.00-5.60) L 10/10/17 15:20 Hgb 12.0 GM/dL (11.7-16.9) 10/10/17 15:20 Hct 34.9 % (35.4-49) L 10/10/17 15:20 MCV 99.8 fl (80-96) H 10/10/17 15:20 MCHC 34.5 g/dl (32.0-35.9) 10/10/17 15:20 RDW 13.8 % (11.9-15.9) 10/10/17 15:20 Plt Count 199 K/MM3 (134-434) 10/10/17 15:20 MPV 8.4 fl (7.5-11.1) 10/10/17 15:20 CMP Sodium 142 mmol/L (136-145) 10/10/17 15:20 Potassium 4.7 mmol/L (3.5-5.1) D 10/10/17 15:20 Chloride 108 mmol/L (98-107) H 10/10/17 15:20 Carbon Dioxide 31 mmol/L (21-32) 10/10/17 15:20 Anion Gap 3 (8-16) L 10/10/17 15:20 BUN 25 mg/dL (7-18) H 10/10/17 15:20 Creatinine 1.2 mg/dL (0.7-1.3) 10/10/17 15:20 Creat Clearance w eGFR 57.14 (>60) 10/10/17 15:20 Random Glucose 84 mg/dL (74-106) 10/10/17 15:20 Calcium 7.8 mg/dL (8.5-10.1) L 10/10/17 15:20 Total Bilirubin 0.2 mg/dL (0.2-1.0) 10/10/17 15:20 AST 13 U/L (15-37) L D 10/10/17 15:20 ALT 26 U/L (12-78) D 10/10/17 15:20 Alkaline Phosphatase 107 U/L (45-117) 10/10/17 15:20 Total Protein 6.3 g/dl (6.4-8.2) L 10/10/17 15:20 Albumin 2.9 g/dl (3.4-5.0) L 10/10/17 15:20 Current Medications Generic Name Dose Route Start Last Admin Trade Name Freq PRN Reason Stop Dose Admin Dextrose/Sodium Chloride 1,000 mls @ 110 mls/hr 10/10/17 15:30 10/10/17 15:43 D5-Ns - IV 110 mls/hr ASDIR HOANG Administration Home Medications Medication Instructions Recorded Acetaminophen [Tylenol Extra 500 mg GT DAILY 03/11/17 Strength] Ascorbate Calcium [Vitamin C] 500 mg GT DAILY 03/11/17 Cyanocobalamin (Vitamin B-12) 1,000 mcg GT DAILY 03/11/17 [Vitamin B-12] Lactobacillus Acidophilus 1 tab GT DAILY 03/11/17 [Acidophilus] Ranitidine Oral Solution [Zantac 150 mg GT BID 03/11/17 Oral Solution -] Sennosides [Senna] 2 tab GT HS 03/11/17 Metoprolol Tartrate [Lopressor -] 100 mg GT BID tablet 03/26/17 Citalopram Hydrobromide [Celexa -] 10 mg GT DAILY 08/02/17 Clonazepam [Klonopin] 0.25 mg GT DAILY 08/02/17 Hypromellose 0.5% Opth Soln 1 drop OU HS 08/02/17 [Artificial Tears] Mirtazapine [Remeron -] 15 mg GT HS 08/02/17 Amlodipine Besylate [Norvasc -] 5 mg GT DAILY 10/10/17 #Surgical consult for cholecystostomy tube placement. to evaluate the patient whether needs to place it back. Hospitalist Screening - Colonoscopy Questionnaire Colonoscopy Questionnaire: Colonoscopy Questionnaire
[2017-10-10 18:40] LABS: URINE APPEARANCE CLEAR; URINE BILIRUBIN NEGATIVE (<2.0 mg/dL); URINE COLOR COLORLESS; URINE GLUCOSE (UA) NEGATIVE (NEGATIVE); URINE KETONE NEGATIVE (NEGATIVE); URINE LEUK ESTERASE NEGATIVE (NEGATIVE); URINE NITRITE NEGATIVE (NEGATIVE); URINE PROTEIN NEGATIVE (NEGATIVE); URINE UROBILINOGEN NEGATIVE mg/dL (0.2-1.0)
--- NOTE | 2017-10-10 21:20 | CONSULT ---
Consult Consult Specialty:: General Surgery Referred by:: Hospitalist team Reason for Consultation:: cholecystostomy tube came out at [place] - History of Present Illness Chief Complaint: dislodged cholecystostomy tube History of Present Illness: 87yo [place] M with HTN, depression with psychotic features, dementia with behavioral disturbance, h/o gallstones with biliary pancreatitis in past, cholecystostomy placement 02/02/17 with one subsequent replacement for dislodgement, brought to ER from [place] after tube "came out" during sleep and was found by his bed there. Dislodged tube was not sent to ER with patient, though was thought to be intact. Patient offers no complaints but is pleasantly demented. He reportedly ate before coming to ER and has had a sandwich here about 3 hours ago. Labs appear relatively normal except BUN/Cr slightly elevated. ER obtained US, which suggests a linear object (?catheter fragment) vs tube tract anterior to gallbladder. He is admitted to hospitalist team, who plans IR for replacement of tube tomorrow. Surgery was asked to see regarding question of "need for replacement?" US shows CBD still dilated at 1cm. Seen and examined in ER, pt offers no complaints. Denies F/C, N/V, abdominal pain. States he has urinated and had a BM yesterday. He is fidgety but appears comfortable. 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: Dementia Cardio/Vascular: Yes: HTN Hepatobiliary: Yes: Cholelithiasis, Cholecystitis (cholecystostomy ), Choledocholithiasis Renal/: Yes: Renal Inusuff Psych: Yes: Depression, Psychosis (features to dementia) Additional Medical History: macular degeneration (legally blind) - Past Surgical History Past Surgical History: Yes: Upper Endoscopy (with ERCP and stone extraction 2014 [place] (too sick for cholecystectomy)) Additional Surgical History: cholecystostomy insertion 01/19 with subsequent replacement x1 - Alcohol/Substance Use Hx Alcohol Use: No History of Substance Use: reports: None - Smoking History Smoking history: Never smoked Have you smoked in the past 12 months: No If you are a former smoker, when did you quit?: 30 YRS AGO - 1-2ppd x 20-30 yrs - Social History Usual Living Arrangement: Residential ADL: Support Services Home Medications - Allergies Allergies/Adverse Reactions: Allergies Allergy/AdvReac Type Severity Reaction Status Date / Time No Known Allergies Allergy Verified 08/01/17 12:20 - Home Medications Home Medications: Ambulatory Orders Acetaminophen [Tylenol Extra Strength] 500 mg GT DAILY 03/11/17 Ascorbate Calcium [Vitamin C] 500 mg GT DAILY 03/11/17 Cyanocobalamin (Vitamin B-12) [Vitamin B-12] 1,000 mcg GT DAILY 03/11/17 Lactobacillus Acidophilus [Acidophilus] 1 tab GT DAILY 03/11/17 Ranitidine Oral Solution [Zantac Oral Solution -] 150 mg GT BID 03/11/17 Sennosides [Senna] 2 tab GT HS 03/11/17 Metoprolol Tartrate [Lopressor -] 100 mg GT BID tablet 03/26/17 Citalopram Hydrobromide [Celexa -] 10 mg GT DAILY 08/02/17 Clonazepam [Klonopin] 0.25 mg GT DAILY 08/02/17 Hypromellose 0.5% Opth Soln [Artificial Tears] 1 drop OU HS 08/02/17 Mirtazapine [Remeron -] 15 mg GT HS 08/02/17 Amlodipine Besylate [Norvasc -] 5 mg GT DAILY 10/10/17 Family Disease History - Family Disease History Family History: Unable to Obtain (pt cannot offer) Review of Systems Unable to obtain ROS, reason: pt demented, cannot give - Review of Systems Constitutional: denies: Chills, Fever Gastrointestinal: denies: Abdominal Pain, Nausea, Vomiting Genitourinary: reports: Incontinence Neurological: reports: Confusion (baseline dementia) Psychiatric: reports: Depression (with psychotic features) Physical Exam Vital Signs: Vital Signs Temperature 97.8 F 10/10/17 14:53 Pulse Rate 56 L 10/10/17 20:43 Respiratory Rate 18 10/10/17 20:43 Blood Pressure 150/76 10/10/17 20:43 O2 Sat by Pulse Oximetry (%) 100 10/10/17 20:44 Constitutional: Yes: Well Nourished, No Distress, Calm Eyes: Yes: Conjunctiva Clear, EOM Intact, Other (erythematous scaly skin patches on face). No: Sclera Icterus HENT: Yes: Atraumatic, Normocephalic Neck: Yes: Supple, Trachea Midline Cardiovascular: Yes: Regular Rate and Rhythm Respiratory: Yes: Regular, CTA Bilaterally Gastrointestinal: Yes: Normal Bowel Sounds, Soft, Other (PEG in place, site clean and dressed; RUQ tiny puncture sites from tube, one with small piece of crust adjacent, one nearly healed, no drainage, no bleeding, nontender). No: Distention, Tenderness ...Rectal Exam: Yes: Deferred Renal/: Yes: Incontinence. No: Bar Present Musculoskeletal: No: Joint Stiffness, Joint Swelling Extremities: No: Cool, Cyanosis Edema: No Peripheral Pulses WNL: Yes Integumentary: Yes: Erythema (patches on face). No: Jaundice Neurological: Yes: Alert, Confusion (baseline dementia). No: Oriented Labs: CBC, BMP 10/10/17 15:20 10/10/17 15:20 CMP Sodium 142 mmol/L (136-145) 10/10/17 15:20 Potassium 4.7 mmol/L (3.5-5.1) D 10/10/17 15:20 Chloride 108 mmol/L (98-107) H 10/10/17 15:20 Carbon Dioxide 31 mmol/L (21-32) 10/10/17 15:20 Anion Gap 3 (8-16) L 10/10/17 15:20 BUN 25 mg/dL (7-18) H 10/10/17 15:20 Creatinine 1.2 mg/dL (0.7-1.3) 10/10/17 15:20 Creat Clearance w eGFR 57.14 (>60) 10/10/17 15:20 Random Glucose 84 mg/dL (74-106) 10/10/17 15:20 Calcium 7.8 mg/dL (8.5-10.1) L 10/10/17 15:20 Total Bilirubin 0.2 mg/dL (0.2-1.0) 10/10/17 15:20 AST 13 U/L (15-37) L D 10/10/17 15:20 ALT 26 U/L (12-78) D 10/10/17 15:20 Alkaline Phosphatase 107 U/L (45-117) 10/10/17 15:20 Total Protein 6.3 g/dl (6.4-8.2) L 10/10/17 15:20 Albumin 2.9 g/dl (3.4-5.0) L 10/10/17 15:20 BUN/Cr slightly elevated INR, PTT INR 1.05 (0.82-1.09) 10/10/17 15:20 Urine Test Results Urine Color Colorless 10/10/17 18:20 Urine Appearance Clear 10/10/17 18:20 Urine pH 8.0 (5.0-8.0) D 10/10/17 18:20 Ur Specific [place] 1.005 (1.001-1.035) 10/10/17 18:20 Urine Protein Negative (NEGATIVE) 10/10/17 18:20 Urine Glucose (UA) Negative (NEGATIVE) 10/10/17 18:20 Urine Ketones Negative (NEGATIVE) 10/10/17 18:20 Urine Blood Negative (NEGATIVE) 10/10/17 18:20 Urine Nitrite Negative (NEGATIVE) 10/10/17 18:20 Urine Bilirubin Negative (<2.0 mg/dL) 10/10/17 18:20 Ur Leukocyte Esterase Negative (NEGATIVE) 10/10/17 18:20 Imaging - Results Chest X-ray: Image Reviewed (RUQ - no FB visible) Cat Scan: Pending Ultrasound: Report Reviewed, Image Reviewed (images personally reviewed - suggestion of possible catheter portion near anterior wall of gallbladder - ?FB vs tract?) Problem List - Problems (1) Displacement of bile duct prosthesis Assessment/Plan: cholecystostomy tube came out during sleep at longterm tube not sent with patient to ER will need replacement tomorrow with IR US suggests possible residual catheter piece intraabdominally vs mature tube tract will get CT to r/o residual foreign body NPO/IVF until no FB confirmed (nothing per PEG either) NPO/IVF after midnight for tube replacement pt is stable without signs or symptoms of peritonitis, sepsis or perforation admitted to hospitalist service no acute surgical issues at this time Thank you for the opportunity to participate in the care of this patient. Code(s): T85.520A - DISPLACEMENT OF BILE DUCT PROSTHESIS, INITIAL ENCOUNTER Qualifiers: Encounter type: initial encounter Qualified Code(s): T85.520A - Displacement of bile duct prosthesis, initial encounter (2) PEG (percutaneous endoscopic gastrostomy) status Code(s): Z93.1 - GASTROSTOMY STATUS (3) Dementia with behavioral disturbance Code(s): F03.91 - UNSPECIFIED DEMENTIA WITH BEHAVIORAL DISTURBANCE Qualifiers: Dementia type: unspecified type Qualified Code(s): F03.91 - Unspecified dementia with behavioral disturbance (4) Hypertension Code(s): I10 - ESSENTIAL (PRIMARY) HYPERTENSION Qualifiers: Hypertension type: essential hypertension Qualified Code(s): I10 - Essential (primary) hypertension (5) Macular degeneration, age related Code(s): H35.30 - UNSPECIFIED MACULAR DEGENERATION
--- NOTE | 2017-10-11 09:08 | EKG ---
Test Reason : Blood Pressure : / mmHG Vent. Rate : 050 BPM Atrial Rate : 050 BPM P-R Int : 000 ms QRS Dur : 078 ms QT Int : 434 ms P-R-T Axes : 000 -45 -28 degrees QTc Int : 395 ms POOR DATA QUALITY, INTERPRETATION MAY BE ADVERSELY AFFECTED NORMAL SINUS RHYTHM LEFT AXIS DEVIATION INFERIOR INFARCT , AGE UNDETERMINED NONSPECIFIC T WAVE ABNORMALITY ABNORMAL ECG WHEN COMPARED WITH ECG OF 02-AUG-2017 05:33, NONSPECIFIC T WAVE ABNORMALITY, WORSE IN LATERAL LEADS Confirmed by DONI ALEMAN MD ([id number]) on 10/11/2017 9:07:54 AM Referred By: Confirmed By:DONI ALEMAN MD
[2017-10-11 11:48] VITALS: TEMP 97.8
--- NOTE | 2017-10-11 14:11 | DS ---
Physical Exam: Patient is comfortable with no acute distress, discussed with the IR, , no need for the reinsertion of the cholecystomy tube. Patient is ok to be discharged back to [place]. Vital Signs Temperature 97.8 F 10/11/17 11:00 Pulse Rate 69 10/11/17 16:23 Respiratory Rate 20 10/11/17 16:23 Blood Pressure 131/81 10/11/17 16:23 O2 Sat by Pulse Oximetry (%) 98 10/11/17 16:23 CBCD WBC 5.5 K/mm3 (4.0-10.0) 10/10/17 15:20 RBC 3.49 M/mm3 (4.00-5.60) L 10/10/17 15:20 Hgb 12.0 GM/dL (11.7-16.9) 10/10/17 15:20 Hct 34.9 % (35.4-49) L 10/10/17 15:20 MCV 99.8 fl (80-96) H 10/10/17 15:20 MCHC 34.5 g/dl (32.0-35.9) 10/10/17 15:20 RDW 13.8 % (11.9-15.9) 10/10/17 15:20 Plt Count 199 K/MM3 (134-434) 10/10/17 15:20 MPV 8.4 fl (7.5-11.1) 10/10/17 15:20 CMP Sodium 142 mmol/L (136-145) 10/10/17 15:20 Potassium 4.7 mmol/L (3.5-5.1) D 10/10/17 15:20 Chloride 108 mmol/L (98-107) H 10/10/17 15:20 Carbon Dioxide 31 mmol/L (21-32) 10/10/17 15:20 Anion Gap 3 (8-16) L 10/10/17 15:20 BUN 25 mg/dL (7-18) H 10/10/17 15:20 Creatinine 1.2 mg/dL (0.7-1.3) 10/10/17 15:20 Creat Clearance w eGFR 57.14 (>60) 10/10/17 15:20 Random Glucose 84 mg/dL (74-106) 10/10/17 15:20 Calcium 7.8 mg/dL (8.5-10.1) L 10/10/17 15:20 Total Bilirubin 0.2 mg/dL (0.2-1.0) 10/10/17 15:20 AST 13 U/L (15-37) L D 10/10/17 15:20 ALT 26 U/L (12-78) D 10/10/17 15:20 Alkaline Phosphatase 107 U/L (45-117) 10/10/17 15:20 Total Protein 6.3 g/dl (6.4-8.2) L 10/10/17 15:20 Albumin 2.9 g/dl (3.4-5.0) L 10/10/17 15:20 <Basim Gomez - Last Filed: 10/11/17 17:42> Physical Exam: SUBJECTIVE: Patient is a 87 year old male with a past medical history of alzheimers disease , HTN, PNA, PEG tube placement, and cholecystostomy (s/p cholangitis; tube placement on 02/02/17 who presents to the ED for accidental removal of cholecystostomy tube. He has no complaints at this time and wants to go home OBJECTIVE: Vital Signs Period Temp Pulse Resp BP Sys/Hernandez Pulse Ox Last 24 Hr 97.8 F-98.4 F 50-60 16-20 119-165/65-78 95-100 PHYSICAL EXAM GENERAL: Awake, alert, and fully oriented, in no acute distress. NECK: Normal range of motion LUNGS: Breath sounds equal, clear to auscultation bilaterally HEART: Regular rate and rhythm, normal S1 and S2 without murmur, rub or gallop. ABDOMEN: Soft, nontender, not distended, normoactive bowel sounds, no guarding, no rebound, no masses, PEG tube in place, closed hole at RLQ, no tenderness to palpation over RQ NEUROLOGICAL: Cranial nerves II-XII intact. Normal speech. SKIN: Warm, dry, normal turgor, no rashes or lesions noted, normal capillary refill. LABS Laboratory Results - last 24 hr 10/10/17 10/10/17 10/10/17 15:20 15:20 15:20 WBC 5.5 RBC 3.49 L Hgb 12.0 Hct 34.9 L MCV 99.8 H MCH 34.4 H MCHC 34.5 RDW 13.8 Plt Count 199 MPV 8.4 Absolute Neuts (auto) 2.8 Neutrophils % 50.3 Lymphocytes % 33.2 Monocytes % 12.4 H Eosinophils % 3.6 Basophils % 0.5 Nucleated RBC % 0 PT with INR 11.90 INR 1.05 Sodium 142 Potassium 4.7 D Chloride 108 H Carbon Dioxide 31 Anion Gap 3 L BUN 25 H Creatinine 1.2 Creat Clearance w eGFR 57.14 Random Glucose 84 Calcium 7.8 L Total Bilirubin 0.2 AST 13 L D ALT 26 D Alkaline Phosphatase 107 Total Protein 6.3 L Albumin 2.9 L Urine Color Urine Appearance Urine pH Ur Specific [place] Urine Protein Urine Glucose (UA) Urine Ketones Urine Blood Urine Nitrite Urine Bilirubin Urine Urobilinogen Ur Leukocyte Esterase Blood Type Antibody Screen 10/10/17 10/10/17 15:20 18:20 WBC RBC Hgb Hct MCV MCH MCHC RDW Plt Count MPV Absolute Neuts (auto) Neutrophils % Lymphocytes % Monocytes % Eosinophils % Basophils % Nucleated RBC % PT with INR INR Sodium Potassium Chloride Carbon Dioxide Anion Gap BUN Creatinine Creat Clearance w eGFR Random Glucose Calcium Total Bilirubin AST ALT Alkaline Phosphatase Total Protein Albumin Urine Color Colorless Urine Appearance Clear Urine pH 8.0 D Ur Specific [place] 1.005 Urine Protein Negative Urine Glucose (UA) Negative Urine Ketones Negative Urine Blood Negative Urine Nitrite Negative Urine Bilirubin Negative Urine Urobilinogen Negative Ur Leukocyte Esterase Negative Blood Type O NEGATIVE Antibody Screen Negative HOSPITAL COURSE: Date of Admission:10/10/17 [facility] he [facility] out his cholecystostomy tube. His CT scan showed pneumobilia, non dilated biliary tract, and echogenic material in CBD. GI consult said no foreign body found in the tract. Per IR patient does not need replacement of the cholecystostomy tube. He was also asymptotically bradycardic. Patient had no other symptoms at this time Patient [facility] Date of Discharge: 10/11/17 Minutes to complete discharge: 40 <Susan Rivero - Last Filed: 10/12/17 06:33> Discharge Summary - Home Medications Comprehensive Discharge Medication List: Ambulatory Orders Acetaminophen [Tylenol Extra Strength] 500 mg GT DAILY 03/11/17 Ascorbate Calcium [Vitamin C] 500 mg GT DAILY 03/11/17 Cyanocobalamin (Vitamin B-12) [Vitamin B-12] 1,000 mcg GT DAILY 03/11/17 Lactobacillus Acidophilus [Acidophilus] 1 tab GT DAILY 03/11/17 Ranitidine Oral Solution [Zantac Oral Solution -] 150 mg GT BID 03/11/17 Sennosides [Senna] 2 tab GT HS 03/11/17 Metoprolol Tartrate [Lopressor -] 100 mg GT BID tablet 03/26/17 Citalopram Hydrobromide [Celexa -] 10 mg GT DAILY 08/02/17 Clonazepam [Klonopin] 0.25 mg GT DAILY 08/02/17 Hypromellose 0.5% Opth Soln [Artificial Tears] 1 drop OU HS 08/02/17 Mirtazapine [Remeron -] 15 mg GT HS 08/02/17 Amlodipine Besylate [Norvasc -] 5 mg GT DAILY 10/10/17 <Basim Gomez - Last Filed: 10/11/17 17:42> Reason For Visit: CHOLECYSTOSTOMY TUBE DYSFUNCTION Current Active Problems Cholecystostomy tube dysfunction (Acute) Displacement of bile duct prosthesis (Acute) PEG (percutaneous endoscopic gastrostomy) status (Acute) - Home Medications Comprehensive Discharge Medication List: Ambulatory Orders Acetaminophen [Tylenol Extra Strength] 500 mg GT DAILY 03/11/17 Ascorbate Calcium [Vitamin C] 500 mg GT DAILY 03/11/17 Cyanocobalamin (Vitamin B-12) [Vitamin B-12] 1,000 mcg GT DAILY 03/11/17 Lactobacillus Acidophilus [Acidophilus] 1 tab GT DAILY 03/11/17 Ranitidine Oral Solution [Zantac Oral Solution -] 150 mg GT BID 03/11/17 Sennosides [Senna] 2 tab GT HS 03/11/17 Metoprolol Tartrate [Lopressor -] 100 mg GT BID tablet 03/26/17 Citalopram Hydrobromide [Celexa -] 10 mg GT DAILY 08/02/17 Clonazepam [Klonopin] 0.25 mg GT DAILY 08/02/17 Hypromellose 0.5% Opth Soln [Artificial Tears] 1 drop OU HS 08/02/17 Mirtazapine [Remeron -] 15 mg GT HS 08/02/17 Amlodipine Besylate [Norvasc -] 5 mg GT DAILY 10/10/17 <Susan Rivero - Last Filed: 10/12/17 06:33> Condition: Stable - Instructions Diet, Activity, Other Instructions: You were brought to the hospital because your cholecystostomy tube fell out. It was determined that you no longer needed this tube and you will not need a replacement one at this time. Be advised that you still have stones in your gallbladder. If you develop a fever, the stones may be causing an infection and your gallbladder may be infected. It is important that you follow up with a doctor if you have a fever. You will continue your home medications as prescribed. You should follow up with your primary care physician within the week If you experience high fevers, chills, nausea, vomiting, diarrhea, chest pain, shortness of breath, please return to the Emergency department. [facility] This patient is new to me today: No Emergency Visit: No Critical Care patient: No - Discharge Referral Referred to [facility] Med P.C.: No <Susan Rivero - Last Filed: 10/12/17 06:33>
[2017-10-11 16:23] VITALS: BP 131/81; PULSE 69
== END 2017-10-11 16:30 ==
LOC: JER 14:37 → JERBED 17:12
PROVIDERS: ADMIT Internal Medicine; ATTEND Internal Medicine
PROC: 3E0337Z Introduction of Electrolytic and Water Balance Substance into Peripheral Vein, Percutaneous Approach (ICD-10-PCS; principal; 2017-10-10)
DX: K94.23 Gastrostomy malfunction (principal); R00.1 Bradycardia, unspecified; I10 Essential (primary) hypertension; G30.9 Alzheimer's disease, unspecified; F02.80 Dementia in other diseases classified elsewhere, unspecified severity, without behavioral disturbance, psychotic disturbance, mood disturbance, and anxiety; G40.909 Epilepsy, unspecified, not intractable, without status epilepticus; Z90.49 Acquired absence of other specified parts of digestive tract; H35.30 Unspecified macular degeneration; F02.81 Dementia in other diseases classified elsewhere, unspecified severity, with behavioral disturbance
CPT/HCPCS: 36415; 71045-TC-FY; 74176-TC; 76705-TC; 80053; 81003; 85025; 85610; 86850; 86900; 86901; 87086; 93005; 93010; 99285-25; G0378

== ENCOUNTER 2018-06-28 03:37 | Inpatient (IN) | payer OTHER ==
--- NOTE | 2018-06-28 04:43 | PDOC ---
History of Present Illness - General Chief Complaint: Shortness of Breath Stated Complaint: DIFFICULTY BREATHING History Source: Patient Exam Limitations: No Limitations - History of Present Illness Initial Comments: 06/28/18 04:41 87 year old male with PMH of cholecystostomy (s/p cholangitis), recurrent aspiration pneumonia, PEG tube, HTN, and dementia BIBA from [facility] who presents with shortness of breath as noted as snf. Per SNF notes at 01:38AM patient with shivering, wheezing, blue color of fingers , satting < 94 When EMS arrived patient with sat > 95 and CTAB. Patient unable to provide history 2/2 dementia SNF contacted for collateral but could not be reached at this time. Past History - Past Medical History Allergies/Adverse Reactions: Allergies Allergy/AdvReac Type Severity Reaction Status Date / Time No Known Allergies Allergy Verified 06/28/18 04:51 Home Medications: Ambulatory Orders Acetaminophen [Tylenol Extra Strength] 500 mg GT DAILY 03/11/17 Ascorbate Calcium [Vitamin C] 500 mg GT DAILY 03/11/17 Cyanocobalamin (Vitamin B-12) [Vitamin B-12] 1,000 mcg GT DAILY 03/11/17 Lactobacillus Acidophilus [Acidophilus] 1 tab GT DAILY 03/11/17 Ranitidine Oral Solution [Zantac Oral Solution -] 150 mg GT BID 03/11/17 Sennosides [Senna] 2 tab GT HS 03/11/17 Metoprolol Tartrate [Lopressor -] 100 mg GT BID tablet 03/26/17 Citalopram Hydrobromide [Celexa -] 10 mg GT DAILY 08/02/17 Clonazepam [Klonopin] 0.25 mg GT DAILY 08/02/17 Hypromellose 0.5% Opth Soln [Artificial Tears] 1 drop OU HS 08/02/17 Mirtazapine [Remeron -] 15 mg GT HS 08/02/17 Amlodipine Besylate [Norvasc -] 5 mg GT DAILY 10/10/17 COPD: No DVT: No Dementia: Yes (Alzheimers) GI Disorders: Yes (cholecystitis, ERCP w/stone extraction 2014) HTN: Yes Psychiatric Problems: Yes Seizures: Yes (depression,pshycosis (dementia)) - Surgical History Abdominal Surgery: Yes (g.tube,GB TUBE) - Suicide/Smoking/Psychosocial Hx Smoking History: Never smoked Have you smoked in the past 12 months: No If you are a former smoker, when did you quit?: 30 YRS AGO - 1-2ppd x 20-30 yrs Hx Alcohol Use: No Drug/Substance Use Hx: No Substance Use Type: None Review of Systems - Review of Systems Able to Perform ROS?: No (limited 2/2 dementia) Is the patient limited Sinhala proficient: Yes Constitutional: No: Fever Respiratory: Yes: Wheezing *Physical Exam - Physical Exam Comments: 06/28/18 05:01 LIMITED exam 2/2 uncooperative due to dementia GENERAL: demented, yelling HEAD: No signs of trauma, normocephalic, atraumatic EYES: EOMI, sclera anicteric, conjunctiva clear ENT: oropharynx clear without exudates. Moist mucosa LUNGS: No distress, speaks full sentences, lying on the L side- difficult to auscultate lung jean, R sided lungs CTAB HEART: Regular rate and rhythm, normal S1 and S2, no murmurs, rubs or gallops, peripheral pulses normal and equal bilaterally. ABDOMEN: Soft, nontender, normoactive bowel sounds. No guarding, no rebound. No masses EXTREMITIES : Normal inspection, Normal range of motion, no edema. No clubbing or cyanosis. NEUROLOGICAL: demented SKIN: Warm, Dry, normal turgor, no rashes or lesions noted ED Treatment Course - LABORATORY CBC & Chemistry Diagram: 06/28/18 05:23 06/28/18 05:23 Medical Decision Making - Medical Decision Making 06/28/18 05:00 87 year old male with PMH of cholecystostomy (s/p cholangitis), recurrent aspiration pneumonia, PEG tube, HTN, and dementia BIBA from [facility] who presents with shortness of breath as noted as snf. Per SNF notes at 01:38AM patient with shivering, wheezing, blue color of fingers , satting < 94 When EMS arrived patient with sat > 95 and CTAB. ED Course: consider pna vs acs vs chf vs arrythmia vs infectious cbc, cmp, ekg, trop, ua, cxr 06/28/18 06:00 ekg: normal sinus rhythm HR 77 w/ some pvcs, LAD, no interval abnormalities, narrow QRS, ST and T wave segments and morphology normal. pending ua, cxr, cbc, cmp 06/28/18 06:26 cmp: transaminitis, juan j (pre-renal), elevated bnp to 9000s corrected Ca: 8.4 As patient is clinically stable and satting 96% on RA will adress JUAN J initially with 500cc bolus pendign cbc, cxr, liekly patient will need admission for multiple derangements. [facility] *DC/Admit/Observation/Transfer Diagnosis at time of Disposition: Transaminitis, JUAN J (acute kidney injury) - Discharge Dispostion Condition at time of disposition: Fair - Referrals - Patient Instructions - Post Discharge Activity
--- NOTE | 2018-06-28 04:44 | PDOC ---
Attending Attestation - Resident Resident Name: Kimberly George - ED Attending Attestation I have performed the following: I have examined & evaluated the patient, The case was reviewed & discussed with the resident, I agree w/resident's findings & plan - HPI HPI: 06/28/18 05:46 87-year-old male with an episode of dyspnea and possible peripheral cyanosis here for evaluation from his long-term care facility. - Physicial Exam PE: 06/28/18 05:47 Agree with resident's exam - Medical Decision Making 06/28/18 05:47 87-year-old male with an episode of dyspnea and possible cyanosis, now resolved Chest x-ray, EKG, labs Patient remains asymptomatic and workup is unremarkable plan for discharge back to his facility
[2018-06-28 05:48] LABS: BASO % 0.1 % (0-2.0); HEMOGLOBIN 12.5 GM/dL (11.7-16.9)
[2018-06-28 05:54] LABS: HEMATOCRIT 36.7 % (35.4-49); MCH 34.1 pg (25.7-33.7); MCHC 34.1 g/dl (32.0-35.9); MEAN CELL VOLUME 100.1 fl (80-96); MEAN PLT VOLUME 9.2 fl (7.5-11.1); MONO % 4.7 % (3.8-10.2); NEUT % 92.2 % (42.8-82.8); PLATELET COUNT 164 K/MM3 (134-434); RBC 3.67 M/mm3 (4.00-5.60); RDW 13.5 % (11.9-15.9); WHITE BLOOD COUNT 21.4 K/mm3 (4.0-10.0)
[2018-06-28 06:20] LABS: ALK PHOS 226 U/L (45-117); ANION GAP 11 MMOL/L (8-16); BILIRUBIN,TOTAL 3.5 mg/dL (0.2-1); BLOOD UREA NITROGEN 42 mg/dL (7-18); CALCIUM 7.6 mg/dL (8.5-10.1); CHLORIDE 111 mmol/L (98-107); CO2 21 mmol/L (21-32); CREATININE 1.7 mg/dL (0.55-1.3); GLUCOSE,RANDOM 115 mg/dL (74-106); N-TERMINAL BNP 9548.8 pg/ml (5-450); SGOT/AST 284 U/L (15-37); SGPT/ALT 297 U/L (13-61); SODIUM 143 mmol/L (136-145); TOT PROT 6.4 g/dl (6.4-8.2)
[2018-06-28] MEDS ORDERED: SODIUM CHLORIDE 500 ML IV SCH (07:00)
[2018-06-28] MEDS ORDERED: HALOPERIDOL LACTATE 5 MG/ML IM ONE ×2 (08:07→08:56)
[2018-06-28] MEDS ORDERED: LORazepam 2 MG/ML SDV VIAL ONE ×2 (08:09→10:40)
--- NOTE | 2018-06-28 08:45 | PDOC ---
*Physical Exam - Vital Signs Last Vital Signs Temp Pulse Resp BP Pulse Ox 98.8 F 76 16 121/57 L 96 06/28/18 03:37 06/28/18 06:45 06/28/18 06:45 06/28/18 06:45 06/28/18 06:45 ED Treatment Course - LABORATORY CBC & Chemistry Diagram: 07/01/18 05:30 07/01/18 05:30 - ADDITIONAL ORDERS Additional order review: Laboratory Results 06/28/18 06/28/18 05:23 05:23 WBC 21.4 H RBC 3.67 L Hgb 12.5 Hct 36.7 MCV 100.1 H MCH 34.1 H MCHC 34.1 RDW 13.5 Plt Count 164 MPV 9.2 Absolute Neuts (auto) 19.7 H Neutrophils % 92.2 H D Lymphocytes % 3.0 L D Monocytes % 4.7 Eosinophils % 0.0 D Basophils % 0.1 Nucleated RBC % 0 Sodium 143 Potassium 5.0 Chloride 111 H Carbon Dioxide 21 Anion Gap 11 BUN 42 H Creatinine 1.7 H Creat Clearance w eGFR 38.23 Random Glucose 115 H Calcium 7.6 L Total Bilirubin 3.5 H AST 284 H ALT 297 H Alkaline Phosphatase 226 H Troponin I < 0.02 B-Natriuretic Peptide 9548.8 H Total Protein 6.4 Albumin 3.0 L 06/28/18 05:23 RBC 3.67 L MCV 100.1 H MCHC 34.1 RDW 13.5 MPV 9.2 Neutrophils % 92.2 H D Lymphocytes % 3.0 L D Monocytes % 4.7 Eosinophils % 0.0 D Basophils % 0.1 - Medications Given in the ED: ED Medications Discontinued Medications Generic Name Dose Route Start Last Admin Trade Name Freq PRN Reason Stop Dose Admin Lorazepam 1 mg 06/28/18 07:32 06/28/18 08:13 Ativan Injection - IM 06/28/18 07:33 1 mg ONCE ONE Administration Medical Decision Making - Medical Decision Making 06/28/18 08:29 S/O from Dr. George Pt sent from [place] for hypoxia in the low 90s and agitation, however, pt noted to be saturating above 95% RA since being in the ED. Pt did not have IV Placed IV with difficulty due to dementia and aggression however pt pulled out the line in the left hand. Pt given 1 mg ativan and 5 mg haldol but continues to be aggressive and fights staff. another 1 mg ativan and 25 mg benadryl given Placed 22 g IV in right forearm, running 500cc along with Vanc and zosyn Pt will be admitted for JUAN J, elevated LFTs and likely sepsis (WBC and lactate elevation) due to cholangitis Spoke with Dr. Campa who agrees to have pt admitted 06/28/18 17:29 Pt noted to have difficulty breathing satuarating in the 70s with diffuse crackles. Fluids and antibiotics stopped and pt started on bipap immediately along with 40mg lasix IV. BP noted to be stable Pt saturation improved into the high 90s within 10 min of bipap Pt found to have elevated rectal temp at 104.8 Tylenol ordered Inpatient team aware of events, ICU consulted and accept pt. *DC/Admit/Observation/Transfer Diagnosis at time of Disposition: Transaminitis, JUAN J (acute kidney injury), Elevated brain natriuretic peptide ( BNP) level Sepsis Qualifiers: Sepsis type: sepsis due to unspecified organism Qualified Code(s): A41.9 - Sepsis, unspecified organism - Discharge Dispostion Condition at time of disposition: Stable Decision to Admit order: Yes - Referrals - Patient Instructions - Post Discharge Activity Procedures - Central Line Central Line Lumen: triple Central Line Position: internal jugular (L) Anesthesia: 1% Lidocaine Amount of anesthesia (ccs): 3 Complications: none Post Central Line Insertion: sutured, position confirmed w/ CXR
[2018-06-28] MEDS ORDERED: SODIUM CHLORIDE 500 ML IV STA (08:46)
[2018-06-28 11:15] LABS: ANISOCYTOSIS 1+; MACROCYTOSIS 1+; OVALOCYTE 1+
[2018-06-28] MEDS ORDERED: VANCOMYCIN 1,000 MG in DEXTROSE 5%-WATER - 250 ML IVPB ONE (11:22)
[2018-06-28] MEDS ORDERED: PIPERACILLIN/TAZOB 4.5 GM 4.5 GM in DEXTROSE 5%-WATER 100 ML IVPB ONE (11:23)
[2018-06-28] MEDS ORDERED: VANCOMYCIN 1 GRAM (PRE-DOCKED) 1,000 MG/250 ML BAG IVPB ONE (11:52)
[2018-06-28] MEDS ORDERED: PIPERACILLIN/TAZOB 4.5 GM 4.5 GM/100 ML BAG IVPB ONE (11:52)
[2018-06-28 12:23] LABS: PLATELET ESTIMATE ADEQUATE
[2018-06-28 12:54] LABS: EPI CELLS 1.2 /HPF (0-5); URINE APPEARANCE CLEAR; URINE BACTERIA 0.846 /hpf (NEGATIVE); URINE BILIRUBIN 2+ (NEGATIVE); URINE CASTS 7 /hpf (0-8); URINE COLOR DK YELLOW; URINE GLUCOSE (UA) NEGATIVE (NEGATIVE); URINE KETONE TRACE (NEGATIVE); URINE LEUK ESTERASE TRACE (NEGATIVE); URINE NITRITE POSITIVE (NEGATIVE); URINE PROTEIN 1+ (NEGATIVE); URINE RBC 9 /hpf (0-4); URINE WBC 2 /hpf (0-5)
[2018-06-28] MEDS ORDERED: ALBUTEROL SO4 2.5/IPRATROPIUM 0.5 INH SOL 3 ML VIAL.NEB. NEB ONE ×2 (13:54→14:04)
[2018-06-28] MEDS ORDERED: FUROSEMIDE 40 MG/4 ML INJECTABLE VIAL IVPUSH ONE (13:54)
[2018-06-28] MEDS ORDERED: FUROSEMIDE 40 MG/4 ML INJECTABLE VIAL ONE (14:04)
[2018-06-28] MEDS ORDERED: NITROGLYCERIN 25MG/D5W 250ML 25 MG/250 ML ML IVPB ONE (15:02)
[2018-06-28] MEDS ORDERED: NITROGLYCERIN 50MG/D5W 250ML 50 MG/250 ML ML IVPB SCH (15:15)
[2018-06-28 15:22] LABS: ARTERIAL BLD GAS O2 SATURATION 99.4 % (95-98); ARTERIAL BLOOD GAS BASE EXCESS -2.8 meq/l (-2-2); ARTERIAL BLOOD GAS PCO2 31.1 mmHg (35-45); ARTERIAL BLOOD GAS PO2 293 mmHg (80-105); ARTERIAL BLOOD GAS pH 7.43 (7.35-7.45)
[2018-06-28 15:24] LABS: ALLENS TEST POSITIVE
--- NOTE | 2018-06-28 16:07 | CONSULT ---
Consultation: REQUESTING PROVIDER: CONSULT REQUEST: We have been asked to medically evaluate this patient for respiratory distress. 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 He was also seen by staff to be wheezing, shivering, and with cyanotic fingers satting <94%. Upon presentation in the ED, pt was on bipap, satting at 98-100%. Per ED team, pt received Ativan, Haldol, and Benadryl due to aggressive behavior. Peripheral line was placed and 500cc bolus of NS was administered, however pt pulled out line. Access was eventually achieved after multiple attempts. present at bedside. Limited history taken. REVIEW OF SYSTEMS: Unable to obtain due to pt's mental status/underlying dementia. PHYSICAL EXAMINATION Vital Signs - 24 hr 06/28/18 06/28/18 03:37 06:45 Temperature 98.8 F Pulse Rate 78 Pulse Rate [ 76 Right] Respiratory 17 16 Rate Blood Pressure 143/56 L Blood Pressure 121/57 L [Right Arm] O2 Sat by Pulse 95 96 Oximetry (%) GENERAL: Lethargic, unable to follow commands. HEENT: AT/NC. EOMI. Moist mucus membranes. NECK: Normal range of motion, supple without lymphadenopathy, JVD, or masses. LUNGS: Decreased breath sounds, poor inspiratory effort. HEART: RRR. Normal S1, S2. ABDOMEN: Abd mildly distended. G tube in place, c/d/i, no secretions, erythema or signs of infection noted. MUSCULOSKELETAL: Normal range of motion at all joints. No bony deformities or tenderness. No CVA tenderness. EXTREMITIES: B/l peripheral edema noted. NEUROLOGICAL: Unable to assess. SKIN: Warm, dry, normal turgor, no rashes or lesions noted. Laboratory Results - last 24 hr 06/28/18 06/28/18 06/28/18 05:23 05:23 07:50 WBC 21.4 H RBC 3.67 L Hgb 12.5 Hct 36.7 MCV 100.1 H MCH 34.1 H MCHC 34.1 RDW 13.5 Plt Count 164 MPV 9.2 Absolute Neuts (auto) 19.7 H Neutrophils % 92.2 H D Neutrophils % (Manual) 75.0 Band Neutrophils % 13.0 Lymphocytes % 3.0 L D Lymphocytes % (Manual) 6.0 L Monocytes % 4.7 Monocytes % (Manual) 6 Eosinophils % 0.0 D Eosinophils % (Manual) 0.0 Basophils % 0.1 Basophils % (Manual) 0.0 Myelocytes % (Man) 0 Promyelocytes % (Man) 0 Blast Cells % (Manual) 0 Nucleated RBC % 0 Metamyelocytes 0 Hypochromia 0 Platelet Estimate Adequate Polychromasia 0 Poikilocytosis 0 Anisocytosis 1+ Microcytosis 0 Macrocytosis 1+ Ovalocytes 1+ Anticoagulation Therapy Puncture Site ABG pH ABG pCO2 at Pt Temp ABG pO2 at Pt Temp ABG HCO3 ABG O2 Sat (Measured) ABG O2 Content ABG Base Excess [place] Test O2 Delivery Device Oxygen Flow Rate Vent Mode Vent Rate Mechanical Rate Pressure Support Vent Sodium 143 Potassium 5.0 Chloride 111 H Carbon Dioxide 21 Anion Gap 11 BUN 42 H Creatinine 1.7 H Creat Clearance w eGFR 38.23 Random Glucose 115 H Lactic Acid 4.8 H* Calcium 7.6 L Total Bilirubin 3.5 H AST 284 H ALT 297 H Alkaline Phosphatase 226 H Troponin I < 0.02 B-Natriuretic Peptide 9548.8 H Total Protein 6.4 Albumin 3.0 L Urine Color Urine Appearance Urine pH Ur Specific [place] Urine Protein Urine Glucose (UA) Urine Ketones Urine Blood Urine Nitrite Urine Bilirubin Urine Urobilinogen Ur Leukocyte Esterase Urine WBC (Auto) Urine RBC (Auto) Urine Casts (Auto) U Epithel Cells (Auto) Urine Bacteria (Auto) 06/28/18 06/28/18 12:22 14:45 WBC RBC Hgb Hct MCV MCH MCHC RDW Plt Count MPV Absolute Neuts (auto) Neutrophils % Neutrophils % (Manual) Band Neutrophils % Lymphocytes % Lymphocytes % (Manual) Monocytes % Monocytes % (Manual) Eosinophils % Eosinophils % (Manual) Basophils % Basophils % (Manual) Myelocytes % (Man) Promyelocytes % (Man) Blast Cells % (Manual) Nucleated RBC % Metamyelocytes Hypochromia Platelet Estimate Polychromasia Poikilocytosis Anisocytosis Microcytosis Macrocytosis Ovalocytes Anticoagulation Therapy No Result Required. Puncture Site Left radial ABG pH 7.43 ABG pCO2 at Pt Temp 31.1 L ABG pO2 at Pt Temp 293 H ABG HCO3 20.1 L ABG O2 Sat (Measured) 99.4 H ABG O2 Content 18.7 ABG Base Excess -2.8 L [place] Test Positive O2 Delivery Device No Result Required. Oxygen Flow Rate Yes Vent Mode No Result Required. Vent Rate No Result Required. Mechanical Rate No Result Required. Pressure Support Vent No Result Required. Sodium Potassium Chloride Carbon Dioxide Anion Gap BUN Creatinine Creat Clearance w eGFR Random Glucose Lactic Acid Calcium Total Bilirubin AST ALT Alkaline Phosphatase Troponin I B-Natriuretic Peptide Total Protein Albumin Urine Color Dk yellow Urine Appearance Clear Urine pH 5.0 D Ur Specific [place] 1.025 Urine Protein 1+ H Urine Glucose (UA) Negative Urine Ketones Trace H Urine Blood 1+ H Urine Nitrite Positive H Urine Bilirubin 2+ H Urine Urobilinogen 1.0 Ur Leukocyte Esterase Trace Urine WBC (Auto) 2 Urine RBC (Auto) 9 Urine Casts (Auto) 7 U Epithel Cells (Auto) 1.2 Urine Bacteria (Auto) 0.846 Active Medications Generic Name Dose Route Start Last Admin Trade Name Freq PRN Reason Stop Dose Admin Sodium Chloride 500 mls @ 125 mls/hr 06/28/18 07:00 06/28/18 11:37 Normal Saline - IV 125 mls/hr ASDIR HOANG Administration CONSULT: GI- Dr. Beltran Surg- Dr. Johnson ID- Dr. Chadwick IR- Dr. Joe IMAGING: * CXR: Slight increase in central markings. Discrete infiltrate not seen. Since 10/2017, there is no change of an adverse nature. ASSESSMENT/PLAN: 87M w/ pmhx of ascending cholangitis, Alzheimers disease, HTN, aspiration PNA, s /p G tube placement presented from [facility] with shortness of breath found to be sepsis 2/2 acute cholangitis. ID #Severe sepsis 2/2 acute cholangitis, ? aspiration pneumonia -Upon initial presentation, pt found to be febrile, at 102.2, tachy 103, RR 27, WBC 21.4 -Vanc/Zosyn IV given in ED -Lac 4.8, now 3.5; cont IVf resuscitation and repeat lactate -will cont with IV Ertapenem as pt has hx of MDR organism in the past -BCx, U/A ordered -ID consult ordered NEURO -Ativan, Haldol, Benadryl given x1 dose due to aggressive behavior #Dementia -hold all home meds -cont to monitor mental status PULM #Acute Hypoxic Respiratory Failure -Currently stable on bi-level, however pt has waxing and waning mental status. Low threshold for intubation at this time. -Duoneparish, Lasix 40 given x1 in ED -ABG noted; cont to monitor O2 sat CV #HTN -HD stable -Hold all home BP meds -Cont to monitor pressures, maintain MAP >65 GI #Transaminitis; likely 2/2 ascending cholangitis -Pt has hx of ascending cholangitis with cholecystostomy tube placed previously , however he no longer has tube. 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 May need to have another cholecystostomy tube placed; IR consulted, pending recs once imaging complete -GI consult ordered -Abd U/S, MRCP ordered -D. bili, amylase, lipase, CRP ordered Prophylaxis -SCDs FEN -NS @ 125 -replete lytes PRN -NPO Code status: DNR Dispo: We will continue to follow the patient. Thank you for this consultative opportunity. Visit type - Emergency Visit Emergency Visit: Yes ED Registration Date: 06/28/18 Care time: The patient presented to the Emergency Department on the above date and was hospitalized for further evaluation of their emergent condition. - New Patient This patient is new to me today: Yes Date on this admission: 06/28/18 - Critical Care Critical Care patient: Yes Total Critical Care Time (in minutes): 35 Critical Care Statement: The care of this patient involved high complexity decision making to prevent further life threatening deterioration of the patient 's condition and/or to evaluate & treat vital organ system(s) failure or risk of failure.
[2018-06-28] MEDS ORDERED: ACETAMINOPHEN 1000 MG/100 ML VIAL (NON FORMULARY) IVPB ONE (17:24)
--- NOTE | 2018-06-28 17:33 | PN ---
Teaching Attending Note Name of Resident: Darinel Fleming ATTENDING PHYSICIAN STATEMENT I saw and evaluated the patient. I reviewed the resident's note and discussed the case with the resident. I agree with the resident's findings and plan as documented. HPI per chart as pt is unable to provide information SUBJECTIVE:87yo M from [facility] with PNH cholecstomy s/p cholangitis, aspiration PNA, PEG, HTN and dementia sent to hospital due to SOB noted by staff. he was noted to be wheezing, cyanotic fingers with saturation <94% and shivering. pt was placed on bipap in the ER. he received ativan/haldol/benadryl in the ER due to aggressive behavior. he was found to have significant leukocytosis with bandemia with lactic acidosis, JUAN J and transaminitis on labs. currently pt is resting comfortable, and is only withdrawing to pain. as per previous hospitalizations he is able to hold simple conversations, needs assistance with ADL. also had noted to be DNR/DNI in the past, however currently is only DNR OBJECTIVE: Last Vital Signs Temp Pulse Resp BP Pulse Ox 98.8 F 76 16 121/57 L 96 06/28/18 03:37 06/28/18 06:45 06/28/18 06:45 06/28/18 06:45 06/28/18 06:45 General withdraws to pain, diffusely warm CV S1 S2 RRR Lungs decreased breath sounds anteriorly, poor inspiratory effort Abdomen diffusely tender, distended, dull to percussion +PEG Extremities contracted, no pedal edema ASSESSMENT AND PLAN: 87yo M from [facility] with PNH cholangitis with cholecystomy tube which was dislodged and then never replaced in October 2017 , hx of aspiration PNA, PEG, HTN and dementia sent to hospital due to SOB noted by staff and found to be in severe sepsis due to suspected PNA and cholangitis 1. severe sepsis due to cholangitis and possible aspiration PNA- tachypnic with leukocytosis and bandemia. initial CXR not showing any infiltrate but based on clinical presentation with tachypnea and de-saturation, high suspicion has PNA and cholangitis. will place NPO, IVF, stat MRCP. called Dr Ponce for cholecystostomy tube placement. states he attempted to place one in the past and GB was very sclerosed and unable to place one. he will follow up on images and determine if one can be placed. has hx of MDR organism and will treat with Ertapenem. will consult GI, surgery, IR and ID. aspiration precautions 2. Acute hypoxic respiratory failure- currently saturating well on bipap. CO2 31. with poor mental status is contraindicated to have bipap on. will wean off supplemental oxygen. will obtain CT chest when more medically stable. 3. Lactic acidosis- due to combination of sepsis and hypoxia. repeat 4. JUAN J- due to sepsis. will hydrate.avoid nephrotoxic agents. monitor UOP. 5. Transaminitis- due to sepsis vs acute cholangitis. will treat as per 1st problem 6. elevated BNP- likely falsely elevated as pt clinically does not appear volume overloaded. will hydrate as pt is septic. low threshold for intubation 7. dementia- hold medications atthis time 8. HTN- currently normotensive. hold antihypertensives 9. DVT ppx- hep sq 10. DNR The care of this patient involved high complexity decision making to prevent further life threatening deterioration of the patient's condition and/or to evaluate & treat vital organ system(s) failure or risk of failure. 45 mins
[2018-06-28] MEDS ORDERED: ACETAMINOPHEN INJECTION 100 ML IVPB ONE (17:35)
--- NOTE | 2018-06-28 18:02 | HP ---
CHIEF COMPLAINT: SOB, desaturation PCP: Dr. Pal HISTORY OF PRESENT ILLNESS: The patient is an 87 yo m who was brought in from [facility] as he was found to be shivering, wheezing and having "blue fingers." At this point, the patient was noted to be saturating below 94% in the care home. The patient is altered and minimally responsive at the time of interview, therefore the following history was obtained with the help of family at the bedside and the EMR. The patient has a PMH alzheimers disease, HTN, PNA, PEG tube placement, and cholecystostomy (s/p cholangitis with tube placement on 02/02/17. The patient pulled this tube out on 10/10/17 and IR elected not to replace it at that time as it was almost time for it to be removed. The patient was given a 500cc bolus in the ED, then promptly began having worsening SOB and crackles at the bases. Patient received Lasix shortly after this. The patient was found to have a WBC count of 21.4 with elevated LFTs and T. bili. Per the patient's at bedside, he is more lethargic now, with his baseline mental status being able to have limited conversations and assist during transfer. Recent Travel: none PAST MEDICAL HISTORY: see HPI PAST SURGICAL HISTORY: PEG Perc. Anai Social History: Smoking: none Alcohol: none Drugs: none Family History: non-contributory Allergies No Known Allergies Allergy (Verified 06/28/18 04:51) HOME MEDICATIONS: Home Medications Medication Instructions Recorded Acetaminophen [Tylenol Extra 500 mg GT DAILY 03/11/17 Strength] Ascorbate Calcium [Vitamin C] 500 mg GT DAILY 03/11/17 Cyanocobalamin (Vitamin B-12) 1,000 mcg GT DAILY 03/11/17 [Vitamin B-12] Lactobacillus Acidophilus 1 tab GT DAILY 03/11/17 [Acidophilus] Ranitidine Oral Solution [Zantac 150 mg GT BID 03/11/17 Oral Solution -] Sennosides [Senna] 2 tab GT HS 03/11/17 Metoprolol Tartrate [Lopressor -] 100 mg GT BID tablet 03/26/17 Citalopram Hydrobromide [Celexa -] 10 mg GT DAILY 08/02/17 Clonazepam [Klonopin] 0.25 mg GT DAILY 08/02/17 Hypromellose 0.5% Opth Soln 1 drop OU HS 08/02/17 [Artificial Tears] Mirtazapine [Remeron -] 15 mg GT HS 08/02/17 Amlodipine Besylate [Norvasc -] 5 mg GT DAILY 10/10/17 REVIEW OF SYSTEMS unable to obtain due to patient's clinical status PHYSICAL EXAMINATION Vital Signs - 24 hr 06/28/18 06/28/18 06/28/18 03:37 06:45 12:30 Temperature 98.8 F Pulse Rate 78 Pulse Rate [ 76 Right] Respiratory 17 16 Rate Blood Pressure 143/56 L Blood Pressure 121/57 L [Right Arm] O2 Sat by Pulse 95 96 94 L Oximetry (%) 06/28/18 06/28/18 17:15 17:54 Temperature 104.8 F H Pulse Rate Pulse Rate [ 113 H 114 H Right] Respiratory 30 H Rate Blood Pressure Blood Pressure 133/71 [Right Arm] O2 Sat by Pulse 100 Oximetry (%) GENERAL: lethargic, minimally responsive to stimuli. Moves arms spontaneously and withdraws briskly to pain. BiPap in place HEAD: Normal with no signs of trauma. LUNGS: Breath sounds equal. decreased breath sounds at the bases. HEART: Regular rate and rhythm, normal S1 and S2 without murmur, rub or gallop. ABDOMEN: Soft, nontender, not distended, normoactive bowel sounds, no guarding, no rebound, no masses. LOWER EXTREMITIES: 2+ pulses, warm, well-perfused. No calf tenderness. 2+ peripheral edema. NEUROLOGICAL: unable to obtain as patient lethargic SKIN: Warm, dry, normal turgor, no rashes or lesions noted, normal capillary refill. Laboratory Results - last 24 hr 06/28/18 06/28/18 06/28/18 05:23 05:23 07:50 WBC 21.4 H RBC 3.67 L Hgb 12.5 Hct 36.7 MCV 100.1 H MCH 34.1 H MCHC 34.1 RDW 13.5 Plt Count 164 MPV 9.2 Absolute Neuts (auto) 19.7 H Neutrophils % 92.2 H D Neutrophils % (Manual) 75.0 Band Neutrophils % 13.0 Lymphocytes % 3.0 L D Lymphocytes % (Manual) 6.0 L Monocytes % 4.7 Monocytes % (Manual) 6 Eosinophils % 0.0 D Eosinophils % (Manual) 0.0 Basophils % 0.1 Basophils % (Manual) 0.0 Myelocytes % (Man) 0 Promyelocytes % (Man) 0 Blast Cells % (Manual) 0 Nucleated RBC % 0 Metamyelocytes 0 Hypochromia 0 Platelet Estimate Adequate Polychromasia 0 Poikilocytosis 0 Anisocytosis 1+ Microcytosis 0 Macrocytosis 1+ Ovalocytes 1+ Anticoagulation Therapy Puncture Site ABG pH ABG pCO2 at Pt Temp ABG pO2 at Pt Temp ABG HCO3 ABG O2 Sat (Measured) ABG O2 Content ABG Base Excess [place] Test O2 Delivery Device Oxygen Flow Rate Vent Mode Vent Rate Mechanical Rate Pressure Support Vent Sodium 143 Potassium 5.0 Chloride 111 H Carbon Dioxide 21 Anion Gap 11 BUN 42 H Creatinine 1.7 H Creat Clearance w eGFR 38.23 Random Glucose 115 H Lactic Acid 4.8 H* Calcium 7.6 L Total Bilirubin 3.5 H AST 284 H ALT 297 H Alkaline Phosphatase 226 H Troponin I < 0.02 B-Natriuretic Peptide 9548.8 H Total Protein 6.4 Albumin 3.0 L Urine Color Urine Appearance Urine pH Ur Specific Wall Urine Protein Urine Glucose (UA) Urine Ketones Urine Blood Urine Nitrite Urine Bilirubin Urine Urobilinogen Ur Leukocyte Esterase Urine WBC (Auto) Urine RBC (Auto) Urine Casts (Auto) U Epithel Cells (Auto) Urine Bacteria (Auto) 06/28/18 06/28/18 12:22 14:45 WBC RBC Hgb Hct MCV MCH MCHC RDW Plt Count MPV Absolute Neuts (auto) Neutrophils % Neutrophils % (Manual) Band Neutrophils % Lymphocytes % Lymphocytes % (Manual) Monocytes % Monocytes % (Manual) Eosinophils % Eosinophils % (Manual) Basophils % Basophils % (Manual) Myelocytes % (Man) Promyelocytes % (Man) Blast Cells % (Manual) Nucleated RBC % Metamyelocytes Hypochromia Platelet Estimate Polychromasia Poikilocytosis Anisocytosis Microcytosis Macrocytosis Ovalocytes Anticoagulation Therapy No Result Required. Puncture Site Left radial ABG pH 7.43 ABG pCO2 at Pt Temp 31.1 L ABG pO2 at Pt Temp 293 H ABG HCO3 20.1 L ABG O2 Sat (Measured) 99.4 H ABG O2 Content 18.7 ABG Base Excess -2.8 L [place] Test Positive O2 Delivery Device No Result Required. Oxygen Flow Rate Yes Vent Mode No Result Required. Vent Rate No Result Required. Mechanical Rate No Result Required. Pressure Support Vent No Result Required. Sodium Potassium Chloride Carbon Dioxide Anion Gap BUN Creatinine Creat Clearance w eGFR Random Glucose Lactic Acid Calcium Total Bilirubin AST ALT Alkaline Phosphatase Troponin I B-Natriuretic Peptide Total Protein Albumin Urine Color Dk yellow Urine Appearance Clear Urine pH 5.0 D Ur Specific Wall 1.025 Urine Protein 1+ H Urine Glucose (UA) Negative Urine Ketones Trace H Urine Blood 1+ H Urine Nitrite Positive H Urine Bilirubin 2+ H Urine Urobilinogen 1.0 Ur Leukocyte Esterase Trace Urine WBC (Auto) 2 Urine RBC (Auto) 9 Urine Casts (Auto) 7 U Epithel Cells (Auto) 1.2 Urine Bacteria (Auto) 0.846 ASSESSMENT/PLAN: The patient is an 87 yo m w/ PMH alzheimers disease, HTN, PNA, PEG tube placement, and cholecystostomy s/p cholangitis who is being admitted to ICU for another episode of cholangitis. 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 Beltran, who recommended STAT MRCP, surgical evaluation and IR evaluation for repeat cholecystostomy tube -Spoke w/ IR (Dr. Trinh) who will assess the patient after he is stabilized and MRCP done. -CTAP w/ PO contrast to assess for other possible pulmonary/intraabdominal causes -given MDR organisms in the past, will treat empirically with Ertapenem monotherapy for now -ID consult; seen by Netta in the past. #HTN -holding home medications for now as patient hypotensive #Alzheimers dementia -patient combative in ED requiring haldol, ativan and benadryl -QTc 445; can give haldol if indicated for agitation #FEN -NS @ 42 -monitro lytes and replete PRN -NPO for now #prophy -SCDs -holding AC in the event of IR procedure in AM #Dispo -admit ICU -medications verified with [place] paperwork -Discussed code status w/ family: Patient is DNR, but CAN be intubated if indicated. Visit type - Emergency Visit Emergency Visit: Yes ED Registration Date: 06/28/18 Care time: The patient presented to the Emergency Department on the above date and was hospitalized for further evaluation of their emergent condition. - New Patient This patient is new to me today: Yes Date on this admission: 06/28/18 - Critical Care Critical Care patient: Yes Total Critical Care Time (in minutes): 160 Critical Care Statement: The care of this patient involved high complexity decision making to prevent further life threatening deterioration of the patient 's condition and/or to evaluate & treat vital organ system(s) failure or risk of failure.
[2018-06-28] MEDS: ERTAPENEM SODIUM 1 GM in SODIUM CHLORIDE 50 ML IVPB SCH (19:07)
--- NOTE | 2018-06-28 19:32 | CON.GI ---
Consult Consult Specialty:: Gastroenterology ( covering [facility] GI service) Referred by:: Dr. Darinel Fleming Reason for Consultation:: Suspected cholangitis - History of Present Illness Chief Complaint: Unable to offer complaint History of Present Illness: 87M was transferred from the [facility] with SOB and a dusky extremity. He also exhibited chills and his temperature is 104.8. He suffered flash pulmonary edema in the ER and is on CPAP. His TB is 3.5 with alk phos 226 and transaminases are also elevated. He had a similar presentation in 02/19 when a cholecystostomy tube was placed. It had to be reinserted in 07/21 and 09/20. I spoke with the patient's Susan and explained that her has cholangitis again. She referred me to her son Sunday ). He tells me that his father had a similar presentation to [facility] in 2014 when it appears that an ERCP was done but decision was made not to do GB surgery. I discussed ERCP vs cholecystosotomy with Sunday. I explained that ERCP requires general anesthesia and is associated with such complications as pancreatitis leaidng to multiorgan failure as well as perforation and hemorrhage among others. He has opted for cholecystostomy as his father has repeated tolerated this well. I explained that an ERCP may still prove necessary of there if the cystic duct is obstructed. I explained that Polo is critically ill with sepsis. 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 Cholecystostomy 02/20, 07/21, 09/20 - Alcohol/Substance Use Hx Alcohol Use: No History of Substance Use: reports: None - Smoking History Smoking history: Never smoked Have you smoked in the past 12 months: No If you are a former smoker, when did you quit?: 30 YRS AGO - 1-2ppd x 20-30 yrs - Social History Usual Living Arrangement: [facility] ADL: Support Services Home Medications - Allergies Allergies/Adverse Reactions: Allergies Allergy/AdvReac Type Severity Reaction Status Date / Time No Known Allergies Allergy Verified 06/28/18 04:51 - Home Medications Home Medications: Ambulatory Orders Acetaminophen [Tylenol Extra Strength] 500 mg GT DAILY 03/11/17 Ascorbate Calcium [Vitamin C] 500 mg GT DAILY 03/11/17 Cyanocobalamin (Vitamin B-12) [Vitamin B-12] 1,000 mcg GT DAILY 03/11/17 Lactobacillus Acidophilus [Acidophilus] 1 tab GT DAILY 03/11/17 Ranitidine Oral Solution [Zantac Oral Solution -] 150 mg GT BID 03/11/17 Sennosides [Senna] 2 tab GT HS 03/11/17 Metoprolol Tartrate [Lopressor -] 100 mg GT BID tablet 03/26/17 Citalopram Hydrobromide [Celexa -] 10 mg GT DAILY 08/02/17 Clonazepam [Klonopin] 0.25 mg GT DAILY 08/02/17 Hypromellose 0.5% Opth Soln [Artificial Tears] 1 drop OU HS 08/02/17 Mirtazapine [Remeron -] 15 mg GT HS 08/02/17 Amlodipine Besylate [Norvasc -] 5 mg GT DAILY 10/10/17 Family Disease History - Family Disease History Family History: Unable to Obtain Review of Systems Unable to obtain ROS, reason: stuporous Physical Exam-GI Vital Signs: Vital Signs Temperature 104.8 F H 06/28/18 17:54 Pulse Rate 114 H 06/28/18 17:54 Respiratory Rate 30 H 06/28/18 17:54 Blood Pressure 133/71 06/28/18 17:54 O2 Sat by Pulse Oximetry (%) 100 06/28/18 17:15 CBC,CMP WBC 21.4 K/mm3 (4.0-10.0) H 06/28/18 05:23 RBC 3.67 M/mm3 (4.00-5.60) L 06/28/18 05:23 Hgb 12.5 GM/dL (11.7-16.9) 06/28/18 05:23 Hct 36.7 % (35.4-49) 06/28/18 05:23 MCV 100.1 fl (80-96) H 06/28/18 05:23 MCH 34.1 pg (25.7-33.7) H 06/28/18 05:23 MCHC 34.1 g/dl (32.0-35.9) 06/28/18 05:23 RDW 13.5 % (11.9-15.9) 06/28/18 05:23 Plt Count 164 K/MM3 (134-434) 06/28/18 05:23 MPV 9.2 fl (7.5-11.1) 06/28/18 05:23 Absolute Neuts (auto) 19.7 K/mm3 (1.5-8.0) H 06/28/18 05:23 Neutrophils % 92.2 % (42.8-82.8) H D 06/28/18 05:23 Neutrophils % (Manual) 75.0 % (42.8-82.8) 06/28/18 05:23 Band Neutrophils % 13.0 % 06/28/18 05:23 Lymphocytes % 3.0 % (8-40) L D 06/28/18 05:23 Lymphocytes % (Manual) 6.0 % (8-40) L 06/28/18 05:23 Monocytes % 4.7 % (3.8-10.2) 06/28/18 05:23 Monocytes % (Manual) 6 % (3.8-10.2) 06/28/18 05:23 Eosinophils % 0.0 % (0-4.5) D 06/28/18 05:23 Eosinophils % (Manual) 0.0 % (0-4.5) 06/28/18 05:23 Basophils % 0.1 % (0-2.0) 06/28/18 05:23 Basophils % (Manual) 0.0 % (0-2.0) 06/28/18 05:23 Myelocytes % (Man) 0 % (0-2) 06/28/18 05:23 Promyelocytes % (Man) 0 % (0-2) 06/28/18 05:23 Blast Cells % (Manual) 0 % (0-0) 06/28/18 05:23 Nucleated RBC % 0 % (0-0) 06/28/18 05:23 Metamyelocytes 0 % (0-2) 06/28/18 05:23 Hypochromia 0 06/28/18 05:23 Platelet Estimate Adequate 06/28/18 05:23 Polychromasia 0 06/28/18 05:23 Poikilocytosis 0 06/28/18 05:23 Anisocytosis 1+ 06/28/18 05:23 Microcytosis 0 06/28/18 05:23 Macrocytosis 1+ 06/28/18 05:23 Ovalocytes 1+ 06/28/18 05:23 Sodium 143 mmol/L (136-145) 06/28/18 05:23 Potassium 5.0 mmol/L (3.5-5.1) 06/28/18 05:23 Chloride 111 mmol/L (98-107) H 06/28/18 05:23 Carbon Dioxide 21 mmol/L (21-32) 06/28/18 05:23 Anion Gap 11 MMOL/L (8-16) 06/28/18 05:23 BUN 42 mg/dL (7-18) H 06/28/18 05:23 Creatinine 1.7 mg/dL (0.55-1.3) H 06/28/18 05:23 Creat Clearance w eGFR 38.23 (>60) 06/28/18 05:23 Random Glucose 115 mg/dL (74-106) H 06/28/18 05:23 Lactic Acid 3.5 mmol/L (0.4-2.0) H* 06/28/18 18:22 Calcium 7.6 mg/dL (8.5-10.1) L 06/28/18 05:23 Total Bilirubin 3.5 mg/dL (0.2-1) H 06/28/18 05:23 AST 284 U/L (15-37) H 06/28/18 05:23 ALT 297 U/L (13-61) H 06/28/18 05:23 Alkaline Phosphatase 226 U/L (45-117) H 06/28/18 05:23 Troponin I < 0.02 ng/ml (0.00-0.05) 06/28/18 05:23 B-Natriuretic Peptide 9548.8 pg/ml (5-450) H 06/28/18 05:23 Total Protein 6.4 g/dl (6.4-8.2) 06/28/18 05:23 Albumin 3.0 g/dl (3.4-5.0) L 06/28/18 05:23 Current Medications Generic Name Dose Route Start Last Admin Trade Name Roz PRN Reason Stop Dose Admin Chlorhexidine Gluconate 1 applic 06/28/18 22:00 Hibiclens For Decolonization - TP HS HOANG Sodium Chloride 500 mls @ 125 mls/hr 06/28/18 07:00 06/28/18 11:37 Normal Saline - IV 125 mls/hr ASDIR HOANG Administration Ertapenem 1 gm/ Sodium 50 mls @ 100 mls/hr 06/28/18 18:00 06/28/18 19:07 Chloride IVPB 100 mls/hr DAILY HOANG Administration Mupirocin 1 applic 06/28/18 22:00 Bactroban Ointment (For Decolonization) - NS 07/03/18 21:59 BID HOANG Constitutional: Yes: Other (stuporous) Eyes: Yes: Sclera Icterus HENT: Yes: Atraumatic Neck: Yes: Supple Cardiovascular: Yes: Tachycardia Respiratory: Yes: Rales (bilaterally) Gastrointestinal Inspection: Yes: Scars (RIH), Other (indwelling LUQ PEG ( missing cap)) ...Auscultate: Yes: Hypoactive Bowel Sounds ...Palpate: Yes: Soft, Other (RUQ tenderness elicited) ...Rectal Exam: Yes: Guaiac Negative (no masses) Labs: CBC, BMP 06/28/18 05:23 06/28/18 05:23 Problem List - Problems (1) Cholangitis due to bile duct calculus with obstruction Assessment/Plan: Suspect retained vs recurrent stones as causing cholangitis and hope that cholecystostomy will be adequate. If not will need to again discuss ERCP. Cholecystostomy will need to be left in indefinitely and combined with a course of Actigal given nichelle recurring bout of cholangitis. Code(s): K80.31 - CALCULUS OF BILE DUCT W CHOLANGITIS, UNSP, WITH OBSTRUCTION (2) Sepsis Code(s): A41.9 - SEPSIS, UNSPECIFIED ORGANISM (3) PEG (percutaneous endoscopic gastrostomy) status Code(s): Z93.1 - GASTROSTOMY STATUS (4) Dementia with behavioral disturbance Code(s): F03.91 - UNSPECIFIED DEMENTIA WITH BEHAVIORAL DISTURBANCE Qualifiers: Dementia type: unspecified type Qualified Code(s): F03.91 - Unspecified dementia with behavioral disturbance Assessment/Plan Impression: Suspect retained vs recurrent stones as causing cholangitis PEG in place Plan: Hope that cholecystostomy will be adequate. If not will need to again discuss ERCP. Cholecystostomy will need to be left in indefinitely and combined with a course of Actigal given the recurring bouts of cholangitis unless cholecystectomy is undertaken. MRCP already ordered Will get INR which will likely need correcting Continue antibiotics Prognosis is grim
[2018-06-28] MEDS ORDERED: RAPID SEQUENCE INTUBATION KIT NR ONE (20:40)
[2018-06-28] MEDS ORDERED: MIDAZOLAM HCL 2 MG/2 ML SINGLE DOSE VIAL ONE ×2 (21:09→21:24)
[2018-06-28] MEDS ORDERED: MIDAZOLAM 100 MG in SODIUM CHLORIDE 100 ML IVPB SCH (21:15)
[2018-06-28] MEDS ORDERED: MIDAZOLAM 100 MG/100 ML MG IVPB ONE (21:39)
[2018-06-28] MEDS ORDERED: CHLORHEXIDINE GLUCONATE 4% CLEANSER FOR DECOLONIZATION TP SCH (22:00)
[2018-06-28] MEDS ORDERED: MUPIROCIN 2% TOPICAL OINTMENT FOR DECOLONIZATION NS SCH (22:00)
--- NOTE | 2018-06-28 22:03 | EKG ---
Test Reason : Blood Pressure : / mmHG Vent. Rate : 077 BPM Atrial Rate : 077 BPM P-R Int : 176 ms QRS Dur : 080 ms QT Int : 394 ms P-R-T Axes : 058 -56 -16 degrees QTc Int : 445 ms SINUS RHYTHM WITH OCCASIONAL PREMATURE VENTRICULAR COMPLEXES LEFT AXIS DEVIATION MINIMAL VOLTAGE CRITERIA FOR LVH, MAY BE NORMAL VARIANT INFERIOR INFARCT (CITED ON OR BEFORE 10-OCT-2017) ABNORMAL ECG WHEN COMPARED WITH ECG OF 10-OCT-2017 15:42, SINUS RHYTHM HAS REPLACED JUNCTIONAL RHYTHM VENT. RATE HAS INCREASED BY 27 BPM QUESTIONABLE CHANGE IN INITIAL FORCES OF INFERIOR LEADS NONSPECIFIC T WAVE ABNORMALITY, IMPROVED IN LATERAL LEADS Confirmed by MD ARNAV, AGNES ([id number]) on 06/28/2018 10:02:40 PM Referred By: Confirmed By:AGNES JOSÉ MD
[2018-06-28] MEDS ORDERED: MIDAZOLAM HCL 2 MG/2 ML SINGLE DOSE VIAL IVPUSH ONE ×2 (22:05)
[2018-06-28] MEDS ORDERED: SODIUM CHLORIDE 1,000 ML IV SCH (22:15)
[2018-06-28] MEDS ORDERED: OLANZapine 2.5 MG TABLET PO SCH (22:30)
[2018-06-28 22:42] LABS: INR 1.55 (0.83-1.09); PROTHROMBIN TIME (PATIENT) 18.4 SEC (9.7-13.0)
[2018-06-29 00:05] LABS: ARTERIAL BLD GAS O2 SATURATION 98.9 % (95-98); ARTERIAL BLOOD GAS BASE EXCESS -5.4 meq/l (-2-2); ARTERIAL BLOOD GAS PCO2 27.7 mmHg (35-45); ARTERIAL BLOOD GAS PO2 143 mmHg (80-105); ARTERIAL BLOOD GAS pH 7.42 (7.35-7.45)
[2018-06-29 00:08] LABS: ALLENS TEST POSITIVE
--- NOTE | 2018-06-29 02:50 | PN ---
Progress Note (short form) - Note Progress Note: Patient received in the ICU at 2:30 AM, sedated and Intubated A/C settings at 14 /450/50/5 Called imaging director of customer acquisition to get Abdominal USG and Abdominal CT/Pelvis prelim report. Prelim Report was faxed to ICU. Abdominal ultrasound shows: Moderate CBD dilatation and mild intrahepatic biliary duct dilatation. periportal edema may indicate cholangitis. Distended gall bladder with slude and wall thickening which is moderately suspicious for cholecystitis. Abdominal/Pelvis CT shows: Acute cholecystitis with mild biliary duct dilation secondary to 2 distal CBD stones, each measuring approximately 13 mm. Mild pancreatic atrophy. Minimal emphysema. 2:44 AM Call placed to Dr. Dinero. Case discussed, plan is to do the cholecystostomy in the morning. . Patient's vitals are stable at this time. Hold heparin sq
[2018-06-29 02:56] LABS: HEMATOCRIT 33.9 % (35.4-49); HEMOGLOBIN 11.7 GM/dL (11.7-16.9); MCH 34.6 pg (25.7-33.7); MCHC 34.4 g/dl (32.0-35.9); MEAN CELL VOLUME 100.5 fl (80-96); MEAN PLT VOLUME 9.3 fl (7.5-11.1); PLATELET COUNT 111 K/MM3 (134-434); RBC 3.37 M/mm3 (4.00-5.60); WHITE BLOOD COUNT 16.8 K/mm3 (4.0-10.0)
[2018-06-29 03:09] LABS: INR 1.67 (0.83-1.09); PROTHROMBIN TIME (PATIENT) 19.8 SEC (9.7-13.0)
[2018-06-29 03:26] LABS: ALBUMIN 2.6 g/dl (3.4-5.0); ALK PHOS 163 U/L (45-117); ANION GAP 14 MMOL/L (8-16); BILIRUBIN,TOTAL 4.1 mg/dL (0.2-1); BLOOD UREA NITROGEN 56 mg/dL (7-18); CALCIUM 7.2 mg/dL (8.5-10.1); CHLORIDE 110 mmol/L (98-107); CO2 20 mmol/L (21-32); CREATININE 2.9 mg/dL (0.55-1.3); GLUCOSE,RANDOM 121 mg/dL (74-106); MAGNESIUM 2.1 mg/dL (1.8-2.4); PHOSPHOROUS 4.6 mg/dL (2.5-4.9); POTASSIUM 4.1 mmol/L (3.5-5.1); SGOT/AST 149 U/L (15-37); SGPT/ALT 197 U/L (13-61); SODIUM 145 mmol/L (136-145); TOT PROT 5.8 g/dl (6.4-8.2)
[2018-06-29 03:48] LABS: BILIRUBIN,DIRECT 3.6 mg/dL (0.0-0.2)
[2018-06-29 06:50] LABS: BASO % 0.1 % (0-2.0); HEMATOCRIT 34.1 % (35.4-49); HEMOGLOBIN 11.7 GM/dL (11.7-16.9); LYMPH % 4.8 % (8-40); MCH 33.8 pg (25.7-33.7); MCHC 34.2 g/dl (32.0-35.9); MEAN CELL VOLUME 98.8 fl (80-96); MEAN PLT VOLUME 9.4 fl (7.5-11.1); MONO % 3.8 % (3.8-10.2); NEUT % 91.3 % (42.8-82.8); PLATELET COUNT 106 K/MM3 (134-434); RBC 3.45 M/mm3 (4.00-5.60); RDW 14.3 % (11.9-15.9); WHITE BLOOD COUNT 14.4 K/mm3 (4.0-10.0)
[2018-06-29 07:21] LABS: INR 1.62 (0.83-1.09); PROTHROMBIN TIME (PATIENT) 19.2 SEC (9.7-13.0)
[2018-06-29 07:27] LABS: ALBUMIN 2.5 g/dl (3.4-5.0); ALK PHOS 149 U/L (45-117); ANION GAP 11 MMOL/L (8-16); BILIRUBIN,TOTAL 4.1 mg/dL (0.2-1); BLOOD UREA NITROGEN 63 mg/dL (7-18); CALCIUM 7.3 mg/dL (8.5-10.1); CHLORIDE 110 mmol/L (98-107); CO2 21 mmol/L (21-32); CREATININE 2.8 mg/dL (0.55-1.3); GLUCOSE,RANDOM 126 mg/dL (74-106); MAGNESIUM 2.2 mg/dL (1.8-2.4); PHOSPHOROUS 4.2 mg/dL (2.5-4.9); POTASSIUM 4.1 mmol/L (3.5-5.1); SGOT/AST 146 U/L (15-37); SGPT/ALT 198 U/L (13-61); SODIUM 143 mmol/L (136-145); TOT PROT 5.9 g/dl (6.4-8.2)
--- NOTE | 2018-06-29 07:33 | PN ---
Physical Exam: SUBJECTIVE: Patient seen and examined at bedside. Per overnight team, pt stable with no acute events. Intubated and sedated. OBJECTIVE: Vital Signs Period Temp Pulse Resp BP Sys/Hernandez Pulse Ox Last 24 Hr 100.1 F-104.8 F 76-114 17-100 90-136/50-71 40-100 GENERAL: Intubated and sedated. HEENT: AT/NC. EOMI. Moist mucus membranes. NECK: Normal range of motion, supple without lymphadenopathy, JVD, or masses. LUNGS: Decreased breath sounds, poor inspiratory effort. HEART: RRR. Normal S1, S2. ABDOMEN: Abd mildly distended. G tube in place, c/d/i, no secretions, erythema or signs of infection noted. +cholecystostomy tube, draining cloudy yellow/ green fluid. EXTREMITIES: B/l peripheral edema noted. NEUROLOGICAL: Unable to assess. SKIN: Warm, dry, normal turgor, no rashes or lesions noted. CBCD WBC 16.8 K/mm3 (4.0-10.0) H 06/29/18 02:30 RBC 3.37 M/mm3 (4.00-5.60) L 06/29/18 02:30 Hgb 11.7 GM/dL (11.7-16.9) 06/29/18 02:30 Hct 33.9 % (35.4-49) L 06/29/18 02:30 MCV 100.5 fl (80-96) H 06/29/18 02:30 MCHC 34.4 g/dl (32.0-35.9) 06/29/18 02:30 RDW 14.0 % (11.9-15.9) 06/29/18 02:30 Plt Count 111 K/MM3 (134-434) L D 06/29/18 02:30 MPV 9.3 fl (7.5-11.1) 06/29/18 02:30 CMP Sodium 143 mmol/L (136-145) 06/29/18 05:30 Potassium 4.1 mmol/L (3.5-5.1) 06/29/18 05:30 Chloride 110 mmol/L (98-107) H 06/29/18 05:30 Carbon Dioxide 21 mmol/L (21-32) 06/29/18 05:30 Anion Gap 11 MMOL/L (8-16) 06/29/18 05:30 BUN 63 mg/dL (7-18) H 06/29/18 05:30 Creatinine 2.8 mg/dL (0.55-1.3) H 06/29/18 05:30 Creat Clearance w eGFR 21.49 (>60) 06/29/18 05:30 Calcium 7.3 mg/dL (8.5-10.1) L 06/29/18 05:30 Total Bilirubin 4.1 mg/dL (0.2-1) H 06/29/18 05:30 AST 146 U/L (15-37) H 06/29/18 05:30 ALT 198 U/L (13-61) H 06/29/18 05:30 Alkaline Phosphatase 149 U/L (45-117) H 06/29/18 05:30 Total Protein 5.9 g/dl (6.4-8.2) L 06/29/18 05:30 Albumin 2.5 g/dl (3.4-5.0) L 06/29/18 05:30 Active Medications Chlorhexidine Gluconate (Hibiclens For Decolonization -) 1 applic TP HS [facility] Ertapenem 1 gm/ Sodium (Chloride) 50 mls @ 100 mls/hr IVPB DAILY [facility] Last Admin: 06/28/18 19:07 Dose: 100 mls/hr Midazolam HCl 100 mg/ Sodium (Chloride) 100 mls @ 1 mls/hr IVPB TITR HOANG; Protocol Stop: 06/29/18 21:14 Last Titration: 06/28/18 22:35 Dose: 2 mg/hr, 2 mls/hr Sodium Chloride (Normal Saline -) 1,000 mls @ 42 mls/hr IV ASDIR HOANG Last Admin: 06/28/18 22:49 Dose: 42 mls/hr Metronidazole (Flagyl 500mg Premixed Ivpb -) 500 mg in 100 mls @ 100 mls/hr IVPB Q8H-IV [facility] Last Admin: 06/29/18 06:04 Dose: 100 mls/hr Metoprolol Tartrate (Lopressor -) 100 mg GT BID HOANG Mirtazapine (Remeron -) 15 mg GT HS [facility] Mupirocin (Bactroban Ointment (For Decolonization) -) 1 applic NS BID [facility] Stop: 07/04/18 09:59 Olanzapine (Zyprexa -) 2.5 mg PO BID [facility] CONSULT: GI- Dr. Beltran Surg- Dr. Johnson ID- Dr. Chadwick IR- Dr. Joe IMAGING: * CXR: Slight increase in central markings. Discrete infiltrate not seen. Since 10/2017, there is no change of an adverse nature. ASSESSMENT/PLAN: 87M w/ pmhx of ascending cholangitis, Alzheimers disease, HTN, aspiration PNA, s /p G tube placement presented from [facility] with shortness of breath found to be sepsis 2/2 acute cholangitis. ID #Severe sepsis 2/2 acute cholangitis, ? aspiration pneumonia -Upon initial presentation, pt found to be febrile, at 102.2, tachy 103, RR 27, WBC 21.4 -Vanc/Zosyn IV given in ED -Lac 4.8, now 3.5; cont IVf resuscitation and repeat lactate -will cont with IV Ertapenem as pt has hx of MDR organism in the past -BCx, U/A ordered -ID consult ordered NEURO -Ativan, Haldol, Benadryl given x1 dose due to aggressive behavior #Dementia -cont home meds -cont to monitor mental status PULM #Acute Hypoxic Respiratory Failure -Intubated. Stable on vent: -Duonebs, Lasix 40 given x1 in ED -ABG noted; cont to monitor O2 sat CV #HTN -HD stable, no pressors needed at this time -cont home meds -Cont to monitor pressures, maintain MAP >65 GI #Ascending cholangitis s/p cholecystostomy tube placement this AM (06/29/18) -GI consult ordered; will need to discuss need for ERCP with family for further intervention -Per GI, can start Ursodiol 300 mg BID, w/ attempt for stone dissolution/ prevention of recurrent episodes -trend LFTs -D. bili, amylase, lipase, CRP ordered Prophylaxis -SCDs FEN -NS @ 100 -replete lytes PRN -NPO Code status: DNR Dispo: We will continue to follow the patient. Thank you for this consultative opportunity. . Visit type - Emergency Visit Emergency Visit: Yes ED Registration Date: 06/28/18 Care time: The patient presented to the Emergency Department on the above date and was hospitalized for further evaluation of their emergent condition. - New Patient This patient is new to me today: No - Critical Care Critical Care patient: Yes Total Critical Care Time (in minutes): 35 Critical Care Statement: The care of this patient involved high complexity decision making to prevent further life threatening deterioration of the patient 's condition and/or to evaluate & treat vital organ system(s) failure or risk of failure.
[2018-06-29] MEDS ORDERED: PT OWN MED DRAWER 7, Y5N ONE (09:12)
[2018-06-29] MEDS: MUPIROCIN 2% TOPICAL OINTMENT FOR DECOLONIZATION NS SCH ×2 (09:13→22:42)
[2018-06-29] MEDS: PANTOPRAZOLE SODIUM 40 MG VIAL IVPUSH SCH (09:14)
--- NOTE | 2018-06-29 10:32 | PN.GI ---
GI Progress Note Subjective: Pt seen/examined at bedside, pt intubated/sedated in MICU. Plan for IR intervention with cholecystostomy tube vs biliary drainage this am. - Objective Vital Signs: Vital Signs Temperature 100.1 F H 06/29/18 06:00 Pulse Rate 120 H 06/29/18 10:23 Respiratory Rate 15 06/29/18 10:23 Blood Pressure 125/60 06/29/18 10:23 O2 Sat by Pulse Oximetry (%) 100 06/29/18 10:23 Constitutional: No Distress, Calm, Other (Intubated/sedated) Cardiovascular: Yes: WNL, Tachycardia Respiratory: Yes: WNL, Regular, CTA Bilaterally ...Palpate: Yes: Other (Abd soft, nondistended, no tenderness elicited) Labs: CBC, BMP 06/29/18 05:30 06/29/18 05:30 INR, PTT INR 1.62 (0.83-1.09) H 06/29/18 05:30 Problem List - Problems (1) Cholangitis Assessment/Plan: 87yo male h/o dementia, HTN, choledocholithiasis s/p ERCP with stone extraction , cholecystitis s/p cholecystostomy (2018), PEG, presenting with SOB with altered mental status s/p intubation with fever and elevated LFTs concerning for cholangitis. Preliminary results from US and CT revealing thickened GB and biliary dilation with possible CBD stones. -Plan for IR intervention with Dr. Joe this am for cholecystostomy tube vs biliary drainage -Pending outcome will need to readdress further interventions with pts family including possible ERCP -Closely monitor LFT trend -Continue IV antibiotics -As advised by Dr. Beltran on initial consult, can start ursodiol 300mg bid with attempt for stone dissolution/prevention of recurrent episodes -Will closely follow Discussed with MICU team Code(s): K83.09 - OTHER CHOLANGITIS
[2018-06-29 10:49] LABS: ANISOCYTOSIS 0; MACROCYTOSIS 1+; PLATELET ESTIMATE DECREASED
[2018-06-29] MEDS: METOPROLOL TARTRATE 50 MG TABLET (FP) GT SCH ×2 (11:31→22:42)
[2018-06-29] MEDS: OLANZapine 2.5 MG TABLET PO SCH ×2 (11:31→22:42)
--- NOTE | 2018-06-29 12:37 | PN ---
Teaching Attending Note Name of Resident: Zonia Cotton ATTENDING PHYSICIAN STATEMENT I saw and evaluated the patient. I reviewed the resident's note and discussed the case with the resident. I agree with the resident's findings and plan as documented. SUBJECTIVE: Pt seen and examined in the ICU. Remains intubated, sedated. No pressors. s/p cholecystostomy tube placement this AM with purulent bilious drainage. OBJECTIVE: Vital Signs Period Temp Pulse Resp BP Sys/Hernandez Pulse Ox Last 24 Hr 100.1 F-104.8 F 76-120 15-100 90-169/50-86 40-100 Intake & Output 06/26/18 06/27/18 06/28/18 06/29/18 23:59 23:59 23:59 23:59 Intake Total 100 266 Output Total 200 Balance 100 66 Weight 63.503 kg 73.2 kg Gen: intubated, sedated Heart: RRR Lung: decreased breath sounds at the bases Abd: soft, +cholecystostomy tube Ext: no edema CBC, BMP 06/29/18 05:30 06/29/18 05:30 Active Medications Chlorhexidine Gluconate (Hibiclens For Decolonization -) 1 applic TP HS [facility] Ertapenem 1 gm/ Sodium (Chloride) 50 mls @ 100 mls/hr IVPB DAILY [facility] Last Admin: 06/28/18 19:07 Dose: 100 mls/hr Midazolam HCl 100 mg/ Sodium (Chloride) 100 mls @ 1 mls/hr IVPB TITR HOANG; Protocol Stop: 06/29/18 21:14 Last Titration: 06/28/18 22:35 Dose: 2 mg/hr, 2 mls/hr Metronidazole (Flagyl 500mg Premixed Ivpb -) 500 mg in 100 mls @ 100 mls/hr IVPB Q8H-IV HOANG Last Admin: 06/29/18 09:14 Dose: 100 mls/hr Sodium Chloride (Normal Saline -) 1,000 mls @ 100 mls/hr IV ASDIR HOANG Metoprolol Tartrate (Lopressor -) 100 mg GT BID [facility] Last Admin: 06/29/18 11:31 Dose: 100 mg Mirtazapine (Remeron -) 15 mg GT HS [facility] Mupirocin (Bactroban Ointment (For Decolonization) -) 1 applic NS BID [facility] Stop: 07/04/18 09:59 Last Admin: 06/29/18 09:13 Dose: 1 applic Olanzapine (Zyprexa -) 2.5 mg PO BID [facility] Last Admin: 06/29/18 11:31 Dose: 2.5 mg Pantoprazole Sodium (Protonix Iv) 40 mg IVPUSH DAILY [facility] Last Admin: 06/29/18 09:14 Dose: 40 mg ASSESSMENT AND PLAN: Acute Hypoxic Respiratory Failure Acute Cholangitis s/p Cholecystostomy tube placement 06/29 Severe Sepsis Acute Kidney Injury Lactic Acidosis Elevated LFTs likely Ischemic Injury Thrombocytopenia r/o DIC HTN Dementia - IV antibiotics - f/u cultures - IVF - monitor urine output, creatinine - trend lactate, LFTs - monitor platelets, coags, fibrinogen level - keep sedated for vent synchrony - if remains hemodynamically stable, can lighten sedation in AM to assess mental status - spontaneous breathing trials as tolerated when mental status improved - DVT/GI prophylaxis - continue ICU monitoring critical care time spent in reviewing chart, evaluating patient and formulating plan 35 min
[2018-06-29] MEDS: ERTAPENEM SODIUM 1 GM in SODIUM CHLORIDE 50 ML IVPB SCH (13:31)
[2018-06-29] MEDS: SODIUM CHLORIDE 1,000 ML IV SCH (13:33)
[2018-06-29] MEDS ORDERED: ACETAMINOPHEN 1000 MG/100 ML VIAL (NON FORMULARY) IVPB ONE (14:04)
--- NOTE | 2018-06-29 14:24 | PN ---
Physical Exam: SUBJECTIVE: Patient seen and examined at bedside in ICU. Intubated and sedated. OBJECTIVE: Vital Signs Period Temp Pulse Resp BP Sys/Hernandez Pulse Ox Last 24 Hr 100.1 F-104.8 F 76-120 15-100 90-169/50-86 40-100 GENERAL: Intubated and sedated. HEENT: NC/AT, PERRLA, EOMI, MMM NECK: Trachea midline, full range of motion, supple. LUNGS: no adventitious sounds appreciated over ventilator HEART: RRR no m/r/g ABDOMEN: soft, mild distention, g-tube c/d/i EXTREMITIES: 2+ pulses, warm, well-perfused, b/l peripheral edema NEUROLOGICAL: unable to assess PSYCH: unable to assess SKIN: Warm, dry, normal turgor, no rashes or lesions noted Laboratory Results - last 24 hr 06/28/18 06/28/18 06/28/18 14:45 18:22 22:17 WBC RBC Hgb Hct MCV MCH MCHC RDW Plt Count MPV Absolute Neuts (auto) Neutrophils % Neutrophils % (Manual) Band Neutrophils % Lymphocytes % Lymphocytes % (Manual) Monocytes % Monocytes % (Manual) Eosinophils % Eosinophils % (Manual) Basophils % Basophils % (Manual) Myelocytes % (Man) Promyelocytes % (Man) Blast Cells % (Manual) Nucleated RBC % Metamyelocytes Hypochromia Platelet Estimate Polychromasia Poikilocytosis Anisocytosis Microcytosis Macrocytosis PT with INR 18.40 H INR 1.55 H Anticoagulation Therapy No Result Required. Puncture Site Left radial ABG pH 7.43 ABG pCO2 at Pt Temp 31.1 L ABG pO2 at Pt Temp 293 H ABG HCO3 20.1 L ABG O2 Sat (Measured) 99.4 H ABG O2 Content 18.7 ABG Base Excess -2.8 L [place] Test Positive O2 Delivery Device No Result Required. Oxygen Flow Rate Yes Vent Mode No Result Required. Vent Rate No Result Required. Mechanical Rate No Result Required. PEEP Pressure Support Vent No Result Required. Sodium Potassium Chloride Carbon Dioxide Anion Gap BUN Creatinine Creat Clearance w eGFR POC Glucometer Random Glucose Lactic Acid 3.5 H* Calcium Phosphorus Magnesium Total Bilirubin Direct Bilirubin AST ALT Alkaline Phosphatase C-Reactive Protein Total Protein Albumin Total Amylase Lipase 06/28/18 06/29/18 06/29/18 23:51 02:30 02:30 WBC 16.8 H RBC 3.37 L Hgb 11.7 Hct 33.9 L MCV 100.5 H MCH 34.6 H MCHC 34.4 RDW 14.0 Plt Count 111 L D MPV 9.3 Absolute Neuts (auto) Neutrophils % Neutrophils % (Manual) Band Neutrophils % Lymphocytes % Lymphocytes % (Manual) Monocytes % Monocytes % (Manual) Eosinophils % Eosinophils % (Manual) Basophils % Basophils % (Manual) Myelocytes % (Man) Promyelocytes % (Man) Blast Cells % (Manual) Nucleated RBC % Metamyelocytes Hypochromia Platelet Estimate Polychromasia Poikilocytosis Anisocytosis Microcytosis Macrocytosis PT with INR INR Anticoagulation Therapy No Result Required. Puncture Site Right radial ABG pH 7.42 ABG pCO2 at Pt Temp 27.7 L ABG pO2 at Pt Temp 143 H ABG HCO3 17.5 L ABG O2 Sat (Measured) 98.9 H ABG O2 Content 16.8 ABG Base Excess -5.4 L [place] Test Positive O2 Delivery Device No Result Required. Oxygen Flow Rate 40% Vent Mode A/c Vent Rate 14 Mechanical Rate No Result Required. PEEP 5.0 Pressure Support Vent No Result Required. Sodium Potassium Chloride Carbon Dioxide Anion Gap BUN Creatinine Creat Clearance w eGFR POC Glucometer Random Glucose Lactic Acid Calcium Phosphorus Magnesium Total Bilirubin Direct Bilirubin 3.6 H AST ALT Alkaline Phosphatase C-Reactive Protein 20.2 H Total Protein Albumin Total Amylase 62 Lipase 32 L 06/29/18 06/29/18 06/29/18 02:30 02:30 05:30 WBC 14.4 H RBC 3.45 L Hgb 11.7 Hct 34.1 L MCV 98.8 H MCH 33.8 H MCHC 34.2 RDW 14.3 Plt Count 106 L MPV 9.4 Absolute Neuts (auto) 13.1 H Neutrophils % 91.3 H Neutrophils % (Manual) 75.8 Band Neutrophils % 14.1 Lymphocytes % 4.8 L D Lymphocytes % (Manual) 2.0 L D Monocytes % 3.8 Monocytes % (Manual) 5 Eosinophils % 0.0 Eosinophils % (Manual) 0.0 Basophils % 0.1 Basophils % (Manual) 0.0 Myelocytes % (Man) 0 Promyelocytes % (Man) 0 Blast Cells % (Manual) 0 Nucleated RBC % 0 Metamyelocytes 2 D Hypochromia 0 Platelet Estimate Decreased Polychromasia 0 Poikilocytosis 0 Anisocytosis 0 Microcytosis 0 Macrocytosis 1+ PT with INR 19.80 H INR 1.67 H Anticoagulation Therapy Puncture Site ABG pH ABG pCO2 at Pt Temp ABG pO2 at Pt Temp ABG HCO3 ABG O2 Sat (Measured) ABG O2 Content ABG Base Excess [place] Test O2 Delivery Device Oxygen Flow Rate Vent Mode Vent Rate Mechanical Rate PEEP Pressure Support Vent Sodium 145 Potassium 4.1 Chloride 110 H Carbon Dioxide 20 L Anion Gap 14 BUN 56 H Creatinine 2.9 H Creat Clearance w eGFR 20.64 POC Glucometer Random Glucose 121 H Lactic Acid Calcium 7.2 L Phosphorus 4.6 Magnesium 2.1 Total Bilirubin 4.1 H Direct Bilirubin AST 149 H ALT 197 H Alkaline Phosphatase 163 H C-Reactive Protein Total Protein 5.8 L Albumin 2.6 L Total Amylase Lipase 06/29/18 06/29/18 06/29/18 05:30 05:30 05:30 WBC RBC Hgb Hct MCV MCH MCHC RDW Plt Count MPV Absolute Neuts (auto) Neutrophils % Neutrophils % (Manual) Band Neutrophils % Lymphocytes % Lymphocytes % (Manual) Monocytes % Monocytes % (Manual) Eosinophils % Eosinophils % (Manual) Basophils % Basophils % (Manual) Myelocytes % (Man) Promyelocytes % (Man) Blast Cells % (Manual) Nucleated RBC % Metamyelocytes Hypochromia Platelet Estimate Polychromasia Poikilocytosis Anisocytosis Microcytosis Macrocytosis PT with INR 19.20 H INR 1.62 H Anticoagulation Therapy Puncture Site ABG pH ABG pCO2 at Pt Temp ABG pO2 at Pt Temp ABG HCO3 ABG O2 Sat (Measured) ABG O2 Content ABG Base Excess [place] Test O2 Delivery Device Oxygen Flow Rate Vent Mode Vent Rate Mechanical Rate PEEP Pressure Support Vent Sodium 143 Potassium 4.1 Chloride 110 H Carbon Dioxide 21 Anion Gap 11 BUN 63 H Creatinine 2.8 H Creat Clearance w eGFR 21.49 POC Glucometer Random Glucose 126 H Lactic Acid 3.7 H* Calcium 7.3 L Phosphorus 4.2 Magnesium 2.2 Total Bilirubin 4.1 H Direct Bilirubin AST 146 H ALT 198 H Alkaline Phosphatase 149 H C-Reactive Protein Total Protein 5.9 L Albumin 2.5 L Total Amylase Lipase 06/29/18 05:52 WBC RBC Hgb Hct MCV MCH MCHC RDW Plt Count MPV Absolute Neuts (auto) Neutrophils % Neutrophils % (Manual) Band Neutrophils % Lymphocytes % Lymphocytes % (Manual) Monocytes % Monocytes % (Manual) Eosinophils % Eosinophils % (Manual) Basophils % Basophils % (Manual) Myelocytes % (Man) Promyelocytes % (Man) Blast Cells % (Manual) Nucleated RBC % Metamyelocytes Hypochromia Platelet Estimate Polychromasia Poikilocytosis Anisocytosis Microcytosis Macrocytosis PT with INR INR Anticoagulation Therapy Puncture Site ABG pH ABG pCO2 at Pt Temp ABG pO2 at Pt Temp ABG HCO3 ABG O2 Sat (Measured) ABG O2 Content ABG Base Excess [place] Test O2 Delivery Device Oxygen Flow Rate Vent Mode Vent Rate Mechanical Rate PEEP Pressure Support Vent Sodium Potassium Chloride Carbon Dioxide Anion Gap BUN Creatinine Creat Clearance w eGFR POC Glucometer 124 Random Glucose Lactic Acid Calcium Phosphorus Magnesium Total Bilirubin Direct Bilirubin AST ALT Alkaline Phosphatase C-Reactive Protein Total Protein Albumin Total Amylase Lipase Active Medications Generic Name Dose Route Start Last Admin Trade Name Freq PRN Reason Stop Dose Admin Chlorhexidine Gluconate 1 applic 06/29/18 22:00 Hibiclens For Decolonization - TP HS HOANG Ertapenem 1 gm/ Sodium 50 mls @ 100 mls/hr 06/28/18 18:00 06/29/18 13:31 Chloride IVPB 100 mls/hr DAILY HOANG Administration Midazolam HCl 100 mg/ Sodium 100 mls @ 1 mls/hr 06/28/18 21:15 06/28/18 22:35 Chloride IVPB 06/29/18 21:14 2 mg/hr TITR HOANG 2 mls/hr Titration Protocol 1 MG/HR Metronidazole 500 mg in 100 mls @ 100 mls/hr 06/29/18 03:45 06/29/18 09:14 Flagyl 500mg Premixed Ivpb - IVPB 100 mls/hr Q8H-IV HOANG Administration Sodium Chloride 1,000 mls @ 100 mls/hr 06/29/18 11:31 06/29/18 13:33 Normal Saline - IV 100 mls/hr ASDIR HOANG Administration Metoprolol Tartrate 100 mg 06/29/18 10:00 06/29/18 11:31 Lopressor - GT 100 mg BID HOANG Administration Mirtazapine 15 mg 06/29/18 22:00 Remeron - GT HS HOANG Mupirocin 1 applic 06/29/18 10:00 06/29/18 09:13 Bactroban Ointment (For Decolonization) - NS 07/04/18 09:59 1 applic BID HOANG Administration Olanzapine 2.5 mg 06/29/18 10:00 06/29/18 11:31 Zyprexa - PO 2.5 mg BID HOANG Administration Pantoprazole Sodium 40 mg 06/29/18 10:00 06/29/18 09:14 Protonix Iv IVPUSH 40 mg DAILY HOANG Administration ASSESSMENT/PLAN: 87 y/o M w/ PMHx of ascending cholangitis s/p cholecystostomy placed and removed last October, AD, HTN, aspiration PNA, s/p PEG placement, presented from [facility] w/ SOB found to be septic 2/2 recurrent acute cholangitis, admitted to ICU, intubated and sedated. #GI -transaminitis, direct and total hyperbilirubinemia likely 2/2 ascending cholangitis -Sx consulted, not a surgical candidate per prior hospitalizations for this issue -abd US: distended GB, dilated CBD, dilated intrahepatic ducts -CT a/p w/o contrast: distended GB -GI following, recommended MRCP but this is deferred at this time -cholecystostomy tube placed by IR and draining -f/u hepatobiliary labs #ID -septic 2/2 ascending cholangitis -on presentation febrile, tachycardic, WBC 16.8 --> 14.4 -previously biliary cultures grew multiple MDR organisms including Acinetobacter -empiric ertapenem and metronidazole pending C/S -cont IVF -ID following #neuro -currently sedated -haloperidol/benadryl/ativan as needed to control aggression -resume olanzapine and mirtazapine #pulm -presented in acute hypoxic respiratory failure and was intubated -vent settings as per ICU team -monitor blood gases -wean from vent as per ICU team #CV -hemodynamically stable -no indication for pressors at this time -hold anti-hypertensives #PPx -DVT: SCDs -GI: IV PTX #code -DNR only #dispo -cont to monitor in ICU Visit type - Emergency Visit Emergency Visit: Yes ED Registration Date: 06/28/18 Care time: The patient presented to the Emergency Department on the above date and was hospitalized for further evaluation of their emergent condition. - New Patient This patient is new to me today: Yes Date on this admission: 06/29/18 - Critical Care Critical Care patient: Yes Total Critical Care Time (in minutes): 40 Critical Care Statement: The care of this patient involved high complexity decision making to prevent further life threatening deterioration of the patient 's condition and/or to evaluate & treat vital organ system(s) failure or risk of failure.
--- NOTE | 2018-06-29 15:43 | CON.ID ---
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 Cholecystostomy 02/20, 07/21, 09/20 - Alcohol/Substance Use Hx Alcohol Use: No History of Substance Use: reports: None - Smoking History Smoking history: Never smoked Have you smoked in the past 12 months: No If you are a former smoker, when did you quit?: 30 YRS AGO - 1-2ppd x 20-30 yrs - Social History Usual Living Arrangement: [facility] ADL: Support Services Home Medications - Allergies Allergies/Adverse Reactions: Allergies Allergy/AdvReac Type Severity Reaction Status Date / Time No Known Allergies Allergy Verified 06/28/18 04:51 - Home Medications Home Medications: Ambulatory Orders Ascorbate Calcium [Vitamin C] 500 mg GT DAILY 03/11/17 Cyanocobalamin (Vitamin B-12) [Vitamin B-12] 1,000 mcg GT DAILY 03/11/17 Ranitidine Oral Solution [Zantac Oral Solution -] 150 mg GT BID 03/11/17 Sennosides [Senna] 2 tab GT HS 03/11/17 Metoprolol Tartrate [Lopressor -] 100 mg GT BID tablet 03/26/17 Clonazepam [Klonopin] 0.25 mg GT BID 08/02/17 Mirtazapine [Remeron -] 15 mg GT HS 08/02/17 Amlodipine Besylate [Norvasc -] 5 mg GT DAILY 10/10/17 Acetaminophen [Tylenol] 650 mg PO BID PRN 06/28/18 Olanzapine [Zyprexa -] 2.5 mg PO Q12H 06/28/18 Propylene Glycol/Peg 400/Pf [Systane 0.3-0.4% Eye Drops] 1 each OU Q12H Physical Exam Vital Signs: Vital Signs Temperature 103.5 F H 03/27/19 14:48 Pulse Rate 80 06/29/18 14:48 Respiratory Rate 20 06/29/18 14:48 Blood Pressure 125/48 L 06/29/18 14:48 O2 Sat by Pulse Oximetry (%) 97 06/29/18 10:32 Labs: CBC, BMP 06/29/18 05:30 06/29/18 05:30
--- NOTE | 2018-06-29 18:01 | PN ---
Progress Note (short form) - Note Progress Note: Pt had cholecystostomy tube placed by IR, now draining purulent bilious fluid. Remains hemodynamically stable, though febrile. Recommend follow up cultures and ID evaluation. Anticipate C tube is adequate for drainage though will need close monitoring clinically and of LFT trend. See prior GI note/consult for additional details. Problem List - Problems (1) Cholangitis Code(s): K83.09 - OTHER CHOLANGITIS
[2018-06-29] MEDS ORDERED: VANCOMYCIN HCL 1,500 MG in DEXTROSE 5%-WATER - 500 ML IVPB ONE (19:00)
--- NOTE | 2018-06-29 20:14 | PN ---
Teaching Attending Note Name of Resident: Shai Sexton ATTENDING PHYSICIAN STATEMENT I saw and evaluated the patient. I reviewed the resident's note and discussed the case with the resident. I agree with the resident's findings and plan as documented. SUBJECTIVE: Intubated/Sedated, unable to participate in medical interview OBJECTIVE: Afebrile Tmax 99.7, BP 108/49, Intubated on A/C mode FiO2 40% Last Vital Signs Temp Pulse Resp BP Pulse Ox 99.7 F H 76 16 108/49 L 97 06/29/18 18:00 06/29/18 18:00 06/29/18 19:00 06/29/18 18:00 06/29/18 10:32 HEENT - Atraumatic, Normocephalic Heart - S1, S2, RRR Lungs - Intubated/Ventilated. Good air entry bilaterally Abdomen - Soft. PEG in situ Extremities - no calf swelling. Laboratory Results - last 24 hr 06/28/18 06/28/18 06/29/18 22:17 23:51 02:30 WBC RBC Hgb Hct MCV MCH MCHC RDW Plt Count MPV Absolute Neuts (auto) Neutrophils % Neutrophils % (Manual) Band Neutrophils % Lymphocytes % Lymphocytes % (Manual) Monocytes % Monocytes % (Manual) Eosinophils % Eosinophils % (Manual) Basophils % Basophils % (Manual) Myelocytes % (Man) Promyelocytes % (Man) Blast Cells % (Manual) Nucleated RBC % Metamyelocytes Hypochromia Platelet Estimate Polychromasia Poikilocytosis Anisocytosis Microcytosis Macrocytosis PT with INR 18.40 H INR 1.55 H Anticoagulation Therapy No Result Required. Puncture Site Right radial ABG pH 7.42 ABG pCO2 at Pt Temp 27.7 L ABG pO2 at Pt Temp 143 H ABG HCO3 17.5 L ABG O2 Sat (Measured) 98.9 H ABG O2 Content 16.8 ABG Base Excess -5.4 L [place] Test Positive O2 Delivery Device No Result Required. Oxygen Flow Rate 40% Vent Mode A/c Vent Rate 14 Mechanical Rate No Result Required. PEEP 5.0 Pressure Support Vent No Result Required. Sodium Potassium Chloride Carbon Dioxide Anion Gap BUN Creatinine Creat Clearance w eGFR POC Glucometer Random Glucose Lactic Acid Calcium Phosphorus Magnesium Total Bilirubin Direct Bilirubin 3.6 H AST ALT Alkaline Phosphatase C-Reactive Protein 20.2 H Total Protein Albumin Total Amylase 62 Lipase 32 L Random Vancomycin 06/29/18 06/29/18 06/29/18 02:30 02:30 02:30 WBC 16.8 H RBC 3.37 L Hgb 11.7 Hct 33.9 L MCV 100.5 H MCH 34.6 H MCHC 34.4 RDW 14.0 Plt Count 111 L D MPV 9.3 Absolute Neuts (auto) Neutrophils % Neutrophils % (Manual) Band Neutrophils % Lymphocytes % Lymphocytes % (Manual) Monocytes % Monocytes % (Manual) Eosinophils % Eosinophils % (Manual) Basophils % Basophils % (Manual) Myelocytes % (Man) Promyelocytes % (Man) Blast Cells % (Manual) Nucleated RBC % Metamyelocytes Hypochromia Platelet Estimate Polychromasia Poikilocytosis Anisocytosis Microcytosis Macrocytosis PT with INR 19.80 H INR 1.67 H Anticoagulation Therapy Puncture Site ABG pH ABG pCO2 at Pt Temp ABG pO2 at Pt Temp ABG HCO3 ABG O2 Sat (Measured) ABG O2 Content ABG Base Excess [place] Test O2 Delivery Device Oxygen Flow Rate Vent Mode Vent Rate Mechanical Rate PEEP Pressure Support Vent Sodium 145 Potassium 4.1 Chloride 110 H Carbon Dioxide 20 L Anion Gap 14 BUN 56 H Creatinine 2.9 H Creat Clearance w eGFR 20.64 POC Glucometer Random Glucose 121 H Lactic Acid Calcium 7.2 L Phosphorus 4.6 Magnesium 2.1 Total Bilirubin 4.1 H Direct Bilirubin AST 149 H ALT 197 H Alkaline Phosphatase 163 H C-Reactive Protein Total Protein 5.8 L Albumin 2.6 L Total Amylase Lipase Random Vancomycin 06/29/18 06/29/18 06/29/18 05:30 05:30 05:30 WBC 14.4 H RBC 3.45 L Hgb 11.7 Hct 34.1 L MCV 98.8 H MCH 33.8 H MCHC 34.2 RDW 14.3 Plt Count 106 L MPV 9.4 Absolute Neuts (auto) 13.1 H Neutrophils % 91.3 H Neutrophils % (Manual) 75.8 Band Neutrophils % 14.1 Lymphocytes % 4.8 L D Lymphocytes % (Manual) 2.0 L D Monocytes % 3.8 Monocytes % (Manual) 5 Eosinophils % 0.0 Eosinophils % (Manual) 0.0 Basophils % 0.1 Basophils % (Manual) 0.0 Myelocytes % (Man) 0 Promyelocytes % (Man) 0 Blast Cells % (Manual) 0 Nucleated RBC % 0 Metamyelocytes 2 D Hypochromia 0 Platelet Estimate Decreased Polychromasia 0 Poikilocytosis 0 Anisocytosis 0 Microcytosis 0 Macrocytosis 1+ PT with INR 19.20 H INR 1.62 H Anticoagulation Therapy Puncture Site ABG pH ABG pCO2 at Pt Temp ABG pO2 at Pt Temp ABG HCO3 ABG O2 Sat (Measured) ABG O2 Content ABG Base Excess [place] Test O2 Delivery Device Oxygen Flow Rate Vent Mode Vent Rate Mechanical Rate PEEP Pressure Support Vent Sodium 143 Potassium 4.1 Chloride 110 H Carbon Dioxide 21 Anion Gap 11 BUN 63 H Creatinine 2.8 H Creat Clearance w eGFR 21.49 POC Glucometer Random Glucose 126 H Lactic Acid Calcium 7.3 L Phosphorus 4.2 Magnesium 2.2 Total Bilirubin 4.1 H Direct Bilirubin AST 146 H ALT 198 H Alkaline Phosphatase 149 H C-Reactive Protein Total Protein 5.9 L Albumin 2.5 L Total Amylase Lipase Random Vancomycin 06/29/18 06/29/18 06/29/18 05:30 05:52 14:45 WBC RBC Hgb Hct MCV MCH MCHC RDW Plt Count MPV Absolute Neuts (auto) Neutrophils % Neutrophils % (Manual) Band Neutrophils % Lymphocytes % Lymphocytes % (Manual) Monocytes % Monocytes % (Manual) Eosinophils % Eosinophils % (Manual) Basophils % Basophils % (Manual) Myelocytes % (Man) Promyelocytes % (Man) Blast Cells % (Manual) Nucleated RBC % Metamyelocytes Hypochromia Platelet Estimate Polychromasia Poikilocytosis Anisocytosis Microcytosis Macrocytosis PT with INR INR Anticoagulation Therapy Puncture Site ABG pH ABG pCO2 at Pt Temp ABG pO2 at Pt Temp ABG HCO3 ABG O2 Sat (Measured) ABG O2 Content ABG Base Excess [place] Test O2 Delivery Device Oxygen Flow Rate Vent Mode Vent Rate Mechanical Rate PEEP Pressure Support Vent Sodium Potassium Chloride Carbon Dioxide Anion Gap BUN Creatinine Creat Clearance w eGFR POC Glucometer 124 Random Glucose Lactic Acid 3.7 H* 1.5 Calcium Phosphorus Magnesium Total Bilirubin Direct Bilirubin AST ALT Alkaline Phosphatase C-Reactive Protein Total Protein Albumin Total Amylase Lipase Random Vancomycin 06/29/18 17:00 WBC RBC Hgb Hct MCV MCH MCHC RDW Plt Count MPV Absolute Neuts (auto) Neutrophils % Neutrophils % (Manual) Band Neutrophils % Lymphocytes % Lymphocytes % (Manual) Monocytes % Monocytes % (Manual) Eosinophils % Eosinophils % (Manual) Basophils % Basophils % (Manual) Myelocytes % (Man) Promyelocytes % (Man) Blast Cells % (Manual) Nucleated RBC % Metamyelocytes Hypochromia Platelet Estimate Polychromasia Poikilocytosis Anisocytosis Microcytosis Macrocytosis PT with INR INR Anticoagulation Therapy Puncture Site ABG pH ABG pCO2 at Pt Temp ABG pO2 at Pt Temp ABG HCO3 ABG O2 Sat (Measured) ABG O2 Content ABG Base Excess [place] Test O2 Delivery Device Oxygen Flow Rate Vent Mode Vent Rate Mechanical Rate PEEP Pressure Support Vent Sodium Potassium Chloride Carbon Dioxide Anion Gap BUN Creatinine Creat Clearance w eGFR POC Glucometer Random Glucose Lactic Acid Calcium Phosphorus Magnesium Total Bilirubin Direct Bilirubin AST ALT Alkaline Phosphatase C-Reactive Protein Total Protein Albumin Total Amylase Lipase Random Vancomycin 4.7 L Current Medications Generic Name Dose Route Start Last Admin Trade Name Freq PRN Reason Stop Dose Admin Chlorhexidine Gluconate 1 applic 06/29/18 22:00 Hibiclens For Decolonization - TP HS HOANG Ertapenem 1 gm/ Sodium 50 mls @ 100 mls/hr 06/28/18 18:00 06/29/18 13:31 Chloride IVPB 100 mls/hr DAILY HOANG Administration Midazolam HCl 100 mg/ Sodium 100 mls @ 1 mls/hr 06/28/18 21:15 06/28/18 22:35 Chloride IVPB 06/29/18 21:14 2 mg/hr TITR HOANG 2 mls/hr Titration Protocol 1 MG/HR Metronidazole 500 mg in 100 mls @ 100 mls/hr 06/29/18 03:45 06/29/18 18:13 Flagyl 500mg Premixed Ivpb - IVPB 100 mls/hr Q8H-IV HOANG Administration Sodium Chloride 1,000 mls @ 100 mls/hr 06/29/18 11:31 06/29/18 13:33 Normal Saline - IV 100 mls/hr ASDIR HOANG Administration Piperacillin Sod/Tazobactam 50 mls @ 100 mls/hr 06/29/18 21:00 Sod 2.25 gm/ Dextrose IVPB Q6H-IV HOANG Protocol Vancomycin HCl 1,500 mg/ 500 mls @ 250 mls/hr 06/29/18 19:00 Dextrose IVPB 06/29/18 20:59 ONCE ONE Protocol Metoprolol Tartrate 100 mg 06/29/18 10:00 06/29/18 11:31 Lopressor - GT 100 mg BID HOANG Administration Mirtazapine 15 mg 06/29/18 22:00 Remeron - GT HS [facility] Mupirocin 1 applic 06/29/18 10:00 06/29/18 09:13 Bactroban Ointment (For Decolonization) - NS 07/04/18 09:59 1 applic BID HOANG Administration Olanzapine 2.5 mg 06/29/18 10:00 06/29/18 11:31 Zyprexa - PO 2.5 mg BID HOANG Administration Pantoprazole Sodium 40 mg 06/29/18 10:00 06/29/18 09:14 Protonix Iv IVPUSH 40 mg DAILY HOANG Administration Home Medications Medication Instructions Recorded Ascorbate Calcium [Vitamin C] 500 mg GT DAILY 03/11/17 Cyanocobalamin (Vitamin B-12) 1,000 mcg GT DAILY 03/11/17 [Vitamin B-12] Ranitidine Oral Solution [Zantac 150 mg GT BID 03/11/17 Oral Solution -] Sennosides [Senna] 2 tab GT HS 03/11/17 Metoprolol Tartrate [Lopressor -] 100 mg GT BID tablet 03/26/17 Clonazepam [Klonopin] 0.25 mg GT BID 08/02/17 Mirtazapine [Remeron -] 15 mg GT HS 08/02/17 Amlodipine Besylate [Norvasc -] 5 mg GT DAILY 10/10/17 Acetaminophen [Tylenol] 650 mg PO BID PRN 06/28/18 Olanzapine [Zyprexa -] 2.5 mg PO Q12H 06/28/18 Propylene Glycol/Peg 400/Pf 1 each OU Q12H 06/28/18 [Systane 0.3-0.4% Eye Drops] ASSESSMENT AND PLAN: 87 year old male from [facility] with history of cholecystitis s/p cholecystectomy with choledocholithiasis s/p ERCP with stone extraction, prior cholecystostomy tube (dislodged 10/2017 and never replaced), Dementia, s/p PEG, HTN, presented with SOB, requiring treatment for severe sepsis and intubation for respiratory distress. 1. Acute Hypoxic Respiratory Failure and Severe Sepsis secondary to recurrent Acute Cholangitis US/CT - shows thickend GB and biliary dilatation with possible CBD stones s/p percutaneous cholecystostomy by IR 06/29 Continue Ertapenem/Vanco, ID consulted. Lactic Acidosis resolved. 2. JUAN J secondary to sepsis - continue IV hydration. 3. Elevated LFTs - secondary to cholangitis with likely obstruction TBil 4.1, AST 146, ALT 198 GI to evaluate for ERCP when more stable. s/p percutaneous cholecystostomy by IR 06/29 4. HTN - Antihypertensives held currently. Metoprolol, Norvasc held. 5. Dementia - normally on Zyprexa, Remeron, Klonopin DVT Px - Heparin SQ GI Px - PPI DNR
--- NOTE | 2018-06-29 22:07 | CONSULT ---
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 In ER, labs were significant for leukocytosis, prerenal acute kidney injury/dehydration, elevated LFTs and imaging showing likely recurrent cholangitis with probable CBD stones. He reportedly had flash pulmonary edema in ER, and is now intubated and sedated in ICU, getting abx from ID. Today, he had perc cholecystostomy by IR. Blood cultures from admission are growing lactose-fermenting GNR. He is septic but not requiring pressors. Surgery was asked to assess. He is seen and examined in ICU, nonresponsive on ventilator. All history is taken from the chart and medical record. He is being followed by GI and ID. - History Source History Provided By: Medical Record Limitations to Obtaining History: Clinical Condition - Past Medical History APPRAISAL MANAGER: Yes: Dementia Cardio/Vascular: Yes: HTN Gastrointestinal: Yes: Other (PEG present) Hepatobiliary: Yes: Cholelithiasis, Cholecystitis (h/o previous cholecystostomy ), Choledocholithiasis Renal/: Yes: Renal Inusuff Infectious Disease: Yes: Other (ESBL E coli) Psych: Yes: Depression, Psychosis (features to dementia) Additional Medical History: macular degeneration (legally blind) - Past Surgical History Past Surgical History: Yes: Hernia Repair (inguinal hernia repair), Upper Endoscopy (with ERCP and stone extraction 2014 [place] (too sick for cholecystectomy)) Additional Surgical History: PEG insertion 02/19. Cholecystostomy 02/20, replaced after he pulled out 07/21, 09/20 - Alcohol/Substance Use Hx Alcohol Use: No History of Substance Use: reports: None - Smoking History Smoking history: Former smoker Have you smoked in the past 12 months: No If you are a former smoker, when did you quit?: 30 YRS AGO - 1-2ppd x 20-30 yrs - Social History Usual Living Arrangement: Detention ADL: Support Services Home Medications - Allergies Allergies/Adverse Reactions: Allergies Allergy/AdvReac Type Severity Reaction Status Date / Time No Known Allergies Allergy Verified 06/28/18 04:51 - Home Medications Home Medications: Ambulatory Orders Ascorbate Calcium [Vitamin C] 500 mg GT DAILY 03/11/17 Cyanocobalamin (Vitamin B-12) [Vitamin B-12] 1,000 mcg GT DAILY 03/11/17 Ranitidine Oral Solution [Zantac Oral Solution -] 150 mg GT BID 03/11/17 Sennosides [Senna] 2 tab GT HS 03/11/17 Metoprolol Tartrate [Lopressor -] 100 mg GT BID tablet 03/26/17 Clonazepam [Klonopin] 0.25 mg GT BID 08/02/17 Mirtazapine [Remeron -] 15 mg GT HS 08/02/17 Amlodipine Besylate [Norvasc -] 5 mg GT DAILY 10/10/17 Acetaminophen [Tylenol] 650 mg PO BID PRN 06/28/18 Olanzapine [Zyprexa -] 2.5 mg PO Q12H 06/28/18 Propylene Glycol/Peg 400/Pf [Systane 0.3-0.4% Eye Drops] 1 each OU Q12H Family Disease History - Family Disease History Family History: Unable to Obtain (noncontributory) Review of Systems Unable to obtain ROS, reason: demented/intubatd/sedated Findings/Remarks: info from chart/record only - Review of Systems Constitutional: reports: Chills, Fever, Other (shivering, blue fingers) Eyes: reports: Other (legally blind) Cardiovascular: reports: Shortness of Breath Respiratory: reports: SOB, Wheezing Gastrointestinal: reports: Other (has PEG) Integumentary: reports: Change in Color (blue fingertips) Neurological: reports: Confusion (baseline dementia) Psychiatric: reports: Other (dementia w/behavioral disturbance) Physical Exam Vital Signs: Vital Signs Temperature 99.7 F H 06/29/18 18:00 Pulse Rate 70 06/29/18 21:59 Respiratory Rate 17 06/29/18 21:58 Blood Pressure 108/49 L 06/29/18 18:00 O2 Sat by Pulse Oximetry (%) 99 06/29/18 21:59 Vital Signs Period Temp Pulse Resp BP Sys/Hernandez Pulse Ox Last 24 Hr 99.7 F-103.5 F 70-120 15-100 106-169/48-86 97-100 Intake & Output 06/29/18 06/29/18 06/29/18 07:59 15:59 23:59 Intake Total 266 728 Output Total 200 180 280 Balance 66 -180 448 Weight 161 lb 6.054 oz Intake: IV 266 528 Normal Saline - 1,000 ml 252 504 @ 42 mls/hr IV ASDIR HOANG Rx#:[id number] Versed - 100 mg In Normal 14 24 Saline - 100 ml @ 1 MG/ HR 1 mls/hr IVPB TITR HOANG Rx#:[id number] IVPB 200 Output: Drainage 80 cholesystostomy 80 Urine 200 180 200 Bar 200 180 200 Other: Voiding Method Indwelling Catheter Indwelling Catheter Indwelling Catheter Bowel Movement No Height 5 ft 8 in Weight Measurement Method Built in [facility] Constitutional: Yes: Well Nourished, No Distress, Calm Eyes: Yes: Conjunctiva Clear, Sclera Icterus (faint?) HENT: Yes: Atraumatic, Normocephalic Neck: Yes: Supple, Trachea Midline Cardiovascular: Yes: Regular Rate and Rhythm, Murmur Respiratory: Yes: Regular, CTA Bilaterally, Intubated, Mechanically Ventilated Gastrointestinal: Yes: Normal Bowel Sounds, Soft, Other (PEG in situ, ~2cm at skin level, stem a bit mobile in/out with flange higher than skin level; cholecystostomy tube in place (from today) with bilious drainage, brown with some cloudiness). No: Distention, Tenderness ...Rectal Exam: Yes: Deferred Renal/: Yes: Bar Present (yellow urine). No: Hematuria Extremities: No: Cool, Cyanosis Edema: No Peripheral Pulses WNL: Yes Integumentary: No: Jaundice, Rash Wound/Incision: Yes: Dressing Dry and Intact (on cholecystostomy site) Neurological: Yes: Unresponsive. No: Alert Psychiatric: No: Alert Labs: CBC, BMP 06/29/18 05:30 06/29/18 05:30 wbc down from 16 BUN/Cr not decreasing lactate down to normal LFTs elevated CMP Sodium 143 mmol/L (136-145) 06/29/18 05:30 Potassium 4.1 mmol/L (3.5-5.1) 06/29/18 05:30 Chloride 110 mmol/L (98-107) H 06/29/18 05:30 Carbon Dioxide 21 mmol/L (21-32) 06/29/18 05:30 Anion Gap 11 MMOL/L (8-16) 06/29/18 05:30 BUN 63 mg/dL (7-18) H 06/29/18 05:30 Creatinine 2.8 mg/dL (0.55-1.3) H 06/29/18 05:30 Creat Clearance w eGFR 21.49 (>60) 06/29/18 05:30 POC Glucometer 124 UNITS (80-120) 06/29/18 05:52 Random Glucose 126 mg/dL (74-106) H 06/29/18 05:30 Lactic Acid 1.5 mmol/L (0.4-2.0) 06/29/18 14:45 Calcium 7.3 mg/dL (8.5-10.1) L 06/29/18 05:30 Phosphorus 4.2 mg/dL (2.5-4.9) 06/29/18 05:30 Magnesium 2.2 mg/dL (1.8-2.4) 06/29/18 05:30 Total Bilirubin 4.1 mg/dL (0.2-1) H 06/29/18 05:30 Direct Bilirubin 3.6 mg/dL (0.0-0.2) H 06/29/18 02:30 AST 146 U/L (15-37) H 06/29/18 05:30 ALT 198 U/L (13-61) H 06/29/18 05:30 Alkaline Phosphatase 149 U/L (45-117) H 06/29/18 05:30 Troponin I < 0.02 ng/ml (0.00-0.05) 06/28/18 05:23 C-Reactive Protein 20.2 MG/DL (0.00-0.3) H 06/29/18 02:30 B-Natriuretic Peptide 9548.8 pg/ml (5-450) H 06/28/18 05:23 Total Protein 5.9 g/dl (6.4-8.2) L 06/29/18 05:30 Albumin 2.5 g/dl (3.4-5.0) L 06/29/18 05:30 Total Amylase 62 U/L (25-115) 06/29/18 02:30 Lipase 32 U/L (73-393) L 06/29/18 02:30 INR, PTT INR 1.62 (0.83-1.09) H 06/29/18 05:30 high INR Urine Test Results Urine Color Dk yellow 06/28/18 12:22 Urine Appearance Clear 06/28/18 12:22 Urine pH 5.0 (5.0-8.0) D 06/28/18 12:22 Ur Specific [place] 1.025 (1.010-1.035) 06/28/18 12:22 Urine Protein 1+ (NEGATIVE) H 06/28/18 12:22 Urine Glucose (UA) Negative (NEGATIVE) 06/28/18 12:22 Urine Ketones Trace (NEGATIVE) H 06/28/18 12:22 Urine Blood 1+ (NEGATIVE) H 06/28/18 12:22 Urine Nitrite Positive (NEGATIVE) H 06/28/18 12:22 Urine Bilirubin 2+ (NEGATIVE) H 06/28/18 12:22 Ur Leukocyte Esterase Trace (NEGATIVE) 06/28/18 12:22 dehydrated by labs and urine Microbiology 06/28/18 07:50 Blood Culture - Preliminary Blood - Peripheral Venous Pending Organism 06/28/18 07:50 Blood Culture - Preliminary Blood - Peripheral Venous Lactose Fermenting Neg Bacilli bacteremia/septic likely cholangitis source, choledocholithiasis Imaging - Results Cat Scan: Report Reviewed (distended gallbladder without stones but with some sludge layering at neck; dilated bile ducts, periportal edema; exophytic right renal cyst) Ultrasound: Report Reviewed (gallbladder distended without stones but + sludge; cbd 1.5cm, suggestive of cholangitis) Problem List - Problems (1) Acute cholangitis due to calculus of bile duct with obstruction Assessment/Plan: Pt with sepsis secondary to recurrent cholangitis from gallbladder sludge and CBD stones with obstruction admitted to ICU, on antibiotics per ID, intubated and sedated bacteremia with LF gram negative shantanu s/p percutaneous cholecystostomy today by IR with purulent bilious drainage ID, GI on board DNR status patient is not a surgical candidate for cholecystectomy at this time, and perhaps will not be in future family not currently present at bedside, but will look for them tomorrow agree with perc drainage, though also agree with GI - may need ERCP as well continue antibiotics per ID blood culture organism pending ID acute kidney injury with significant dehydration - recommend IV fluid resuscitation trend labs GI/DVT prophylaxis no acute surgical intervention will be offered, nor likely desired by family ( based on past interactions with them) will talk to ICU and primary teams Thank you for the opportunity to participate in the care of this patient. This patient is critically ill. Time spent reviewing chart, examining patient, talking with providers and/or family and documentation is 45 minutes. Will sign off after touching base with family - please recall with any questions or concerns. 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 Code(s): K80.65 - CALCULUS OF GB AND BILE DUCT W CHRONIC CHOLECYST W OBST (3) Sepsis Code(s): A41.9 - SEPSIS, UNSPECIFIED ORGANISM Qualifiers: Sepsis type: sepsis due to unspecified organism Qualified Code(s): A41.9 - Sepsis, unspecified organism (4) Dementia with behavioral disturbance Code(s): F03.91 - UNSPECIFIED DEMENTIA WITH BEHAVIORAL DISTURBANCE Qualifiers: Dementia type: unspecified type Qualified Code(s): F03.91 - Unspecified dementia with behavioral disturbance (5) Hypertension Code(s): I10 - ESSENTIAL (PRIMARY) HYPERTENSION Qualifiers: Hypertension type: essential hypertension Qualified Code(s): I10 - Essential (primary) hypertension (6) Macular degeneration, age related Code(s): H35.30 - UNSPECIFIED MACULAR DEGENERATION (7) PEG (percutaneous endoscopic gastrostomy) status Code(s): Z93.1 - GASTROSTOMY STATUS (8) Dehydration Code(s): E86.0 - DEHYDRATION (9) Acute prerenal azotemia Code(s): R79.89 - OTHER SPECIFIED ABNORMAL FINDINGS OF BLOOD CHEMISTRY
[2018-06-29] MEDS: MIRTAZAPINE 15 MG TABLET (FP) GT SCH (22:42)
[2018-06-29] MEDS: CHLORHEXIDINE GLUCONATE 4% CLEANSER FOR DECOLONIZATION TP SCH (22:42)
[2018-06-29] MEDS: PIPERACILLIN/TAZOB 2.25 GM 2.25 GM in DEXTROSE 5%-WATER - 50 ML IVPB SCH (23:00)
[2018-06-29] MEDS ORDERED: PIPERACILLIN/TAZOBACTAM 2.25 GM VIAL IVPB ONE (23:25)
[2018-06-29] MEDS ORDERED: DEXTROSE 5%-WATER - 50 ML IVPB ONE (23:25)
[2018-06-30] MEDS ORDERED: PIPERACILLIN/TAZOBACTAM 2.25 GM VIAL IVPB ONE ×4 (03:10→21:28)
[2018-06-30] MEDS ORDERED: DEXTROSE 5%-WATER - 50 ML IVPB ONE ×4 (03:10→21:28)
[2018-06-30] MEDS: PIPERACILLIN/TAZOB 2.25 GM 2.25 GM in DEXTROSE 5%-WATER - 50 ML IVPB SCH ×4 (03:58→21:29)
[2018-06-30 06:08] LABS: BASO % 0.1 % (0-2.0); EOS % 0.7 % (0-4.5); HEMATOCRIT 32.6 % (35.4-49); HEMOGLOBIN 10.9 GM/dL (11.7-16.9); LYMPH % 7.5 % (8-40); MCH 33.2 pg (25.7-33.7); MCHC 33.5 g/dl (32.0-35.9); MEAN CELL VOLUME 99.1 fl (80-96); MONO % 3.3 % (3.8-10.2); NEUT % 88.4 % (42.8-82.8); PLATELET COUNT 89 K/MM3 (134-434); RBC 3.29 M/mm3 (4.00-5.60); RDW 14.3 % (11.9-15.9); WHITE BLOOD COUNT 7.2 K/mm3 (4.0-10.0)
[2018-06-30 06:38] LABS: ALBUMIN 2.2 g/dl (3.4-5.0); ALK PHOS 115 U/L (45-117); ANION GAP 8 MMOL/L (8-16); BILIRUBIN,TOTAL 4.1 mg/dL (0.2-1); BLOOD UREA NITROGEN 68 mg/dL (7-18); CALCIUM 7.2 mg/dL (8.5-10.1); CHLORIDE 113 mmol/L (98-107); CO2 24 mmol/L (21-32); CREATININE 2.3 mg/dL (0.55-1.3); GLUCOSE,RANDOM 97 mg/dL (74-106); MAGNESIUM 2.6 mg/dL (1.8-2.4); PHOSPHOROUS 2.8 mg/dL (2.5-4.9); POTASSIUM 3.7 mmol/L (3.5-5.1); SGOT/AST 101 U/L (15-37); SGPT/ALT 131 U/L (13-61); SODIUM 145 mmol/L (136-145); TOT PROT 5.5 g/dl (6.4-8.2)
[2018-06-30] MEDS ORDERED: MIDAZOLAM HCL 2 MG/2 ML SINGLE DOSE VIAL ONE (07:02)
[2018-06-30] MEDS ORDERED: MIDAZOLAM 100 MG/100 ML MG IVPB ONE (07:02)
[2018-06-30] MEDS ORDERED: PT OWN MED DRAWER 7, Y5N ONE ×2 (08:10→12:07)
--- NOTE | 2018-06-30 08:48 | PN ---
Physical Exam: SUBJECTIVE: Patient seen and examined at bedside. No acute events overnight. Pt currently intubated and sedated. OBJECTIVE: Vital Signs Period Temp Pulse Resp BP Sys/Hernandez Pulse Ox Last 24 Hr 99.7 F-103.5 F 68-120 14-25 106-157/48-64 97-100 GENERAL: Intubated and sedated. HEENT: AT/NC. EOMI. Moist mucus membranes. NECK: Normal range of motion, supple without lymphadenopathy, JVD, or masses. LUNGS: Decreased breath sounds, poor inspiratory effort. HEART: RRR. Normal S1, S2. ABDOMEN: Abd mildly distended. G tube in place, c/d/i, no secretions, erythema or signs of infection noted. +cholecystostomy tube, draining cloudy yellow/ green fluid. EXTREMITIES: B/l peripheral edema noted. NEUROLOGICAL: Unable to assess. SKIN: Warm, dry, normal turgor, no rashes or lesions noted. CBC, BMP 06/30/18 05:30 06/30/18 05:30 Active Medications Chlorhexidine Gluconate (Hibiclens For Decolonization -) 1 applic TP HS HOANG Last Admin: 06/29/18 22:42 Dose: 1 applic Ertapenem 1 gm/ Sodium (Chloride) 50 mls @ 100 mls/hr IVPB DAILY HOANG Last Admin: 06/30/18 09:21 Dose: 100 mls/hr Metronidazole (Flagyl 500mg Premixed Ivpb -) 500 mg in 100 mls @ 100 mls/hr IVPB Q8H-IV HOANG Last Admin: 06/30/18 09:03 Dose: 100 mls/hr Sodium Chloride (Normal Saline -) 1,000 mls @ 100 mls/hr IV ASDIR HOANG Last Admin: 06/29/18 13:33 Dose: 100 mls/hr Piperacillin Sod/Tazobactam (Sod 2.25 gm/ Dextrose) 50 mls @ 100 mls/hr IVPB Q6H-IV HOANG; Protocol Last Admin: 06/30/18 08:41 Dose: 100 mls/hr Potassium Phosphate 30 mm/ (Sodium Chloride) 260 mls @ 65 mls/hr IVPB ONCE ONE Stop: 06/30/18 14:09 Sodium Chloride (Normal Saline -) 500 mls @ 500 mls/hr IV ASDIR STA Stop: 06/30/18 11:39 Metoprolol Tartrate (Lopressor -) 100 mg GT BID [facility] Last Admin: 06/30/18 09:02 Dose: 100 mg Mirtazapine (Remeron -) 15 mg GT HS [facility] Last Admin: 06/29/18 22:42 Dose: Not Given Mupirocin (Bactroban Ointment (For Decolonization) -) 1 applic NS BID [facility] Stop: 07/04/18 09:59 Last Admin: 06/30/18 09:02 Dose: 1 applic Olanzapine (Zyprexa -) 2.5 mg PO BID [facility] Last Admin: 06/30/18 09:03 Dose: 2.5 mg Pantoprazole Sodium (Protonix Iv) 40 mg IVPUSH DAILY [facility] Last Admin: 06/30/18 09:03 Dose: 40 mg CONSULT: GI- Dr. Beltran Surg- Dr. Johnson ID- Dr. Chadwick IR- Dr. Joe IMAGING: * CXR: Slight increase in central markings. Discrete infiltrate not seen. Since 10/2017, there is no change of an adverse nature. * CTAP: Distended GB * Abd U/S: distended GB, dilated CBD, dilated intrahepatic ducts ASSESSMENT/PLAN: 87M w/ pmhx of ascending cholangitis, Alzheimers disease, HTN, aspiration PNA, s /p G tube placement presented [facility] with shortness of breath found to be sepsis 2/2 acute cholangitis. ID #Severe sepsis 2/2 acute cholangitis, ? aspiration pneumonia -Upon initial presentation, pt found to be febrile, at 102.2, tachy 103, RR 27, WBC 21.4 -Vanc/Zosyn IV given in ED -lactate normalized -Per ID, IV Ertapenem and Zosyn as pt has hx of MDR organism in the past -BCx +ESBL, staph coag neg; U/A neg -ID consult ordered NEURO #Dementia -cont home meds -cont to monitor mental status PULM #Acute Hypoxic Respiratory Failure -Intubated. Stable on vent -Duonebs, Lasix 40 given x1 in ED -ABG noted; cont to monitor O2 sat CV #HTN -HD stable, no pressors needed at this time -cont home meds -Cont to monitor pressures, maintain MAP >65 GI #Ascending cholangitis s/p cholecystostomy tube placement (06/29/18) -Abd U/S showed distended GB, dilated CBD, dilated intrahepatic ducts -CTAP showed distended GB -GI consult ordered; will need to discuss need for ERCP with family for further intervention -s/p cholecystostomy tube; monitor drain output -IV abx/IVf; ID following -GI following -Elevated T. Bili, D. Bili, LFTs; trend LFTs Prophylaxis -SQH -Protonix 40 QD FEN -NS @ 100 -replete lytes PRN -NPO Lines -[facility] (06/28) -davila -ET (06/28) -cholecystostomy tube (06/29) -G tube Code status: DNR Dispo: We will continue to follow the patient. Thank you for this consultative opportunity. Visit type - Emergency Visit Emergency Visit: Yes ED Registration Date: 06/28/18 Care time: The patient presented to the Emergency Department on the above date and was hospitalized for further evaluation of their emergent condition. - New Patient This patient is new to me today: Yes Date on this admission: 06/30/18 - Critical Care Critical Care patient: Yes Total Critical Care Time (in minutes): 35 Critical Care Statement: The care of this patient involved high complexity decision making to prevent further life threatening deterioration of the patient 's condition and/or to evaluate & treat vital organ system(s) failure or risk of failure.
[2018-06-30] MEDS ORDERED: KCL 10 MEQ IVPB 10 MEQ/100 ML INFUS.BAG IVPB SCH (09:00)
[2018-06-30] MEDS: METOPROLOL TARTRATE 50 MG TABLET (FP) GT SCH ×2 (09:02→21:36)
[2018-06-30] MEDS: MUPIROCIN 2% TOPICAL OINTMENT FOR DECOLONIZATION NS SCH ×2 (09:02→21:39)
[2018-06-30] MEDS: PANTOPRAZOLE SODIUM 40 MG VIAL IVPUSH SCH (09:03)
[2018-06-30] MEDS: OLANZapine 2.5 MG TABLET PO SCH ×2 (09:03→21:39)
[2018-06-30] MEDS: ERTAPENEM SODIUM 1 GM in SODIUM CHLORIDE 50 ML IVPB SCH (09:21)
[2018-06-30] MEDS ORDERED: POTASSIUM PHOSPHATE 30 MM in SODIUM CHLORIDE 250 ML IVPB ONE (10:10)
--- NOTE | 2018-06-30 10:38 | PN ---
Teaching Attending Note Name of Resident: Zonia Cotton ATTENDING PHYSICIAN STATEMENT I saw and evaluated the patient. I reviewed the resident's note and discussed the case with the resident. I agree with the resident's findings and plan as documented. SUBJECTIVE: Patient seen and examined in the ICU. Remains intubated and sedated. No pressors. Cholecystostomy tube draining purulent bilious drainage. OBJECTIVE: Intake & Output 06/27/18 06/28/18 06/29/18 06/30/18 23:59 23:59 23:59 23:59 Intake Total 192 056 8620 Output Total 660 260 Balance 100 334 961 Weight 140 lb 161 lb 6.054 oz 161 lb 13.109 oz Last Vital Signs Temp Pulse Resp BP Pulse Ox 98.7 F 63 14 123/60 98 06/30/18 10:00 06/30/18 10:00 06/30/18 10:00 06/30/18 10:00 06/30/18 09:24 Active Medications Chlorhexidine Gluconate (Hibiclens For Decolonization -) 1 applic TP HS HOANG Last Admin: 06/29/18 22:42 Dose: 1 applic Ertapenem 1 gm/ Sodium (Chloride) 50 mls @ 100 mls/hr IVPB DAILY HOANG Last Admin: 06/30/18 09:21 Dose: 100 mls/hr Metronidazole (Flagyl 500mg Premixed Ivpb -) 500 mg in 100 mls @ 100 mls/hr IVPB Q8H-IV HOANG Last Admin: 06/30/18 09:03 Dose: 100 mls/hr Sodium Chloride (Normal Saline -) 1,000 mls @ 100 mls/hr IV ASDIR HOANG Last Admin: 06/29/18 13:33 Dose: 100 mls/hr Piperacillin Sod/Tazobactam (Sod 2.25 gm/ Dextrose) 50 mls @ 100 mls/hr IVPB Q6H-IV HOANG; Protocol Last Admin: 06/30/18 08:41 Dose: 100 mls/hr Potassium Phosphate 30 mm/ (Sodium Chloride) 260 mls @ 65 mls/hr IVPB ONCE ONE Stop: 06/30/18 14:09 Metoprolol Tartrate (Lopressor -) 100 mg GT BID HOANG Last Admin: 06/30/18 09:02 Dose: 100 mg Mirtazapine (Remeron -) 15 mg GT HS [facility] Last Admin: 06/29/18 22:42 Dose: Not Given Mupirocin (Bactroban Ointment (For Decolonization) -) 1 applic NS BID [facility] Stop: 07/04/18 09:59 Last Admin: 06/30/18 09:02 Dose: 1 applic Olanzapine (Zyprexa -) 2.5 mg PO BID [facility] Last Admin: 06/30/18 09:03 Dose: 2.5 mg Pantoprazole Sodium (Protonix Iv) 40 mg IVPUSH DAILY [facility] Last Admin: 06/30/18 09:03 Dose: 40 mg Gen: intubated, sedated Heart: RRR Lung: decreased breath sounds at the bases Abd: soft, +cholecystostomy tube Ext: no edema Laboratory Results - last 24 hr 06/29/18 06/29/18 06/29/18 05:30 14:45 17:00 WBC RBC Hgb Hct MCV MCH MCHC RDW Plt Count MPV Absolute Neuts (auto) Neutrophils % Neutrophils % (Manual) 75.8 Band Neutrophils % 14.1 Lymphocytes % Lymphocytes % (Manual) 2.0 L D Monocytes % Monocytes % (Manual) 5 Eosinophils % Eosinophils % (Manual) 0.0 Basophils % Basophils % (Manual) 0.0 Myelocytes % (Man) 0 Promyelocytes % (Man) 0 Blast Cells % (Manual) 0 Nucleated RBC % Metamyelocytes 2 D Hypochromia 0 Platelet Estimate Decreased Polychromasia 0 Poikilocytosis 0 Anisocytosis 0 Microcytosis 0 Macrocytosis 1+ Sodium Potassium Chloride Carbon Dioxide Anion Gap BUN Creatinine Creat Clearance w eGFR Random Glucose Lactic Acid 1.5 Calcium Phosphorus Magnesium Total Bilirubin AST ALT Alkaline Phosphatase Total Protein Albumin Random Vancomycin 4.7 L 06/30/18 06/30/18 05:30 05:30 WBC 7.2 RBC 3.29 L Hgb 10.9 L Hct 32.6 L MCV 99.1 H MCH 33.2 MCHC 33.5 RDW 14.3 Plt Count 89 L MPV 10.0 Absolute Neuts (auto) 6.4 Neutrophils % 88.4 H Neutrophils % (Manual) Band Neutrophils % Lymphocytes % 7.5 L D Lymphocytes % (Manual) Monocytes % 3.3 L Monocytes % (Manual) Eosinophils % 0.7 D Eosinophils % (Manual) Basophils % 0.1 Basophils % (Manual) Myelocytes % (Man) Promyelocytes % (Man) Blast Cells % (Manual) Nucleated RBC % 0 Metamyelocytes Hypochromia Platelet Estimate Polychromasia Poikilocytosis Anisocytosis Microcytosis Macrocytosis Sodium 145 Potassium 3.7 Chloride 113 H Carbon Dioxide 24 Anion Gap 8 BUN 68 H Creatinine 2.3 H Creat Clearance w eGFR 26.97 Random Glucose 97 Lactic Acid Calcium 7.2 L Phosphorus 2.8 Magnesium 2.6 H Total Bilirubin 4.1 H AST 101 H ALT 131 H Alkaline Phosphatase 115 Total Protein 5.5 L Albumin 2.2 L Random Vancomycin ASSESSMENT AND PLAN: Acute Hypoxic Respiratory Failure Acute Cholangitis s/p Cholecystostomy tube placement 06/29 Severe Sepsis Acute Kidney Injury Lactic Acidosis Elevated LFTs likely Ischemic Injury Thrombocytopenia r/o DIC HTN Dementia - Check CVP - IVF resuscitation - IV antibiotics - f/u cultures - monitor urine output, creatinine - Sedation vacation and SBTs as tolerated - DVT/GI prophylaxis - Requires ICU monitoring Dr Corral Critical care time spent in reviewing chart, evaluating patient and formulating plan 36 min
[2018-06-30] MEDS ORDERED: SODIUM CHLORIDE 500 ML IV STA (10:40)
--- NOTE | 2018-06-30 11:26 | PN ---
Physical Exam: SUBJECTIVE: Patient seen and examined at bedside in ICU. Intubated and sedated. OBJECTIVE: Vital Signs Period Temp Pulse Resp BP Sys/Hernandez Pulse Ox Last 24 Hr 98.7 F-103.5 F 63-82 14-25 106-125/48-63 98-99 GENERAL: Intubated and sedated. HEENT: NC/AT, PERRLA, EOMI, MMM NECK: Trachea midline, full range of motion, supple. LUNGS: no adventitious sounds appreciated over ventilator HEART: RRR no m/r/g ABDOMEN: soft, mild distention, g-tube c/d/i, cholecystostomy tube c/d/i draining bilious fluid EXTREMITIES: 2+ pulses, warm, well-perfused, b/l peripheral edema NEUROLOGICAL: unable to assess PSYCH: unable to assess SKIN: Warm, dry, normal turgor, no rashes or lesions noted Laboratory Results - last 24 hr 06/29/18 06/29/18 06/29/18 05:30 14:45 17:00 WBC RBC Hgb Hct MCV MCH MCHC RDW Plt Count MPV Absolute Neuts (auto) Neutrophils % Neutrophils % (Manual) 75.8 Band Neutrophils % 14.1 Lymphocytes % Lymphocytes % (Manual) 2.0 L D Monocytes % Monocytes % (Manual) 5 Eosinophils % Eosinophils % (Manual) 0.0 Basophils % Basophils % (Manual) 0.0 Myelocytes % (Man) 0 Promyelocytes % (Man) 0 Blast Cells % (Manual) 0 Nucleated RBC % Metamyelocytes 2 D Hypochromia 0 Platelet Estimate Decreased Polychromasia 0 Poikilocytosis 0 Anisocytosis 0 Microcytosis 0 Macrocytosis 1+ Sodium Potassium Chloride Carbon Dioxide Anion Gap BUN Creatinine Creat Clearance w eGFR Random Glucose Lactic Acid 1.5 Calcium Phosphorus Magnesium Total Bilirubin AST ALT Alkaline Phosphatase Total Protein Albumin Random Vancomycin 4.7 L 06/30/18 06/30/18 05:30 05:30 WBC 7.2 RBC 3.29 L Hgb 10.9 L Hct 32.6 L MCV 99.1 H MCH 33.2 MCHC 33.5 RDW 14.3 Plt Count 89 L MPV 10.0 Absolute Neuts (auto) 6.4 Neutrophils % 88.4 H Neutrophils % (Manual) Band Neutrophils % Lymphocytes % 7.5 L D Lymphocytes % (Manual) Monocytes % 3.3 L Monocytes % (Manual) Eosinophils % 0.7 D Eosinophils % (Manual) Basophils % 0.1 Basophils % (Manual) Myelocytes % (Man) Promyelocytes % (Man) Blast Cells % (Manual) Nucleated RBC % 0 Metamyelocytes Hypochromia Platelet Estimate Polychromasia Poikilocytosis Anisocytosis Microcytosis Macrocytosis Sodium 145 Potassium 3.7 Chloride 113 H Carbon Dioxide 24 Anion Gap 8 BUN 68 H Creatinine 2.3 H Creat Clearance w eGFR 26.97 Random Glucose 97 Lactic Acid Calcium 7.2 L Phosphorus 2.8 Magnesium 2.6 H Total Bilirubin 4.1 H AST 101 H ALT 131 H Alkaline Phosphatase 115 Total Protein 5.5 L Albumin 2.2 L Random Vancomycin Active Medications Generic Name Dose Route Start Last Admin Trade Name Freq PRN Reason Stop Dose Admin Chlorhexidine Gluconate 1 applic 06/29/18 22:00 06/29/18 22:42 Hibiclens For Decolonization - TP 1 applic HS HOANG Administration Ertapenem 1 gm/ Sodium 50 mls @ 100 mls/hr 06/28/18 18:00 06/30/18 09:21 Chloride IVPB 100 mls/hr DAILY HOANG Administration Metronidazole 500 mg in 100 mls @ 100 mls/hr 06/29/18 03:45 06/30/18 09:03 Flagyl 500mg Premixed Ivpb - IVPB 100 mls/hr Q8H-IV HOANG Administration Sodium Chloride 1,000 mls @ 100 mls/hr 06/29/18 11:31 06/29/18 13:33 Normal Saline - IV 100 mls/hr ASDIR HOANG Administration Piperacillin Sod/Tazobactam 50 mls @ 100 mls/hr 06/29/18 21:00 06/30/18 08:41 Sod 2.25 gm/ Dextrose IVPB 100 mls/hr Q6H-IV HOANG Administration Protocol Potassium Phosphate 30 mm/ 260 mls @ 65 mls/hr 06/30/18 10:10 Sodium Chloride IVPB 06/30/18 14:09 ONCE ONE Sodium Chloride 500 mls @ 500 mls/hr 06/30/18 10:40 Normal Saline - IV 06/30/18 11:39 ASDIR STA Metoprolol Tartrate 100 mg 06/29/18 10:00 06/30/18 09:02 Lopressor - GT 100 mg BID HOANG Administration Mirtazapine 15 mg 06/29/18 22:00 06/29/18 22:42 Remeron - GT Not Given HS HOANG Mupirocin 1 applic 06/29/18 10:00 06/30/18 09:02 Bactroban Ointment (For Decolonization) - NS 07/04/18 09:59 1 applic BID HOANG Administration Olanzapine 2.5 mg 06/29/18 10:00 06/30/18 09:03 Zyprexa - PO 2.5 mg BID HOANG Administration Pantoprazole Sodium 40 mg 06/29/18 10:00 06/30/18 09:03 Protonix Iv IVPUSH 40 mg DAILY HOANG Administration ASSESSMENT/PLAN: 87 y/o M w/ PMHx of ascending cholangitis s/p cholecystostomy placed and removed last October, AD, HTN, aspiration PNA, s/p PEG placement, presented from [facility] w/ SOB found to be septic 2/2 recurrent acute cholangitis, admitted to ICU, intubated and sedated. #GI -transaminitis, direct and total hyperbilirubinemia likely 2/2 ascending cholangitis -Sx consulted, not a surgical candidate per prior hospitalizations for this issue -abd US: distended GB, dilated CBD, dilated intrahepatic ducts -CT a/p w/o contrast: distended GB -GI following, recommended MRCP but this is deferred at this time -cholecystostomy tube placed by IR and draining -f/u hepatobiliary labs #ID -septic 2/2 ascending cholangitis -on presentation febrile, tachycardic, WBC 16.8 --> 14.4 -previously biliary cultures grew multiple MDR organisms including Acinetobacter -BCx 06/28 growing ESBL E coli and coag- Staph spp -cont ertapenem and metronidazole, Zosyn added, C/S pending -cont IVF -ID following #neuro -currently sedated -haloperidol/benadryl/ativan as needed to control aggression -resume olanzapine and mirtazapine #pulm -presented in acute hypoxic respiratory failure and was intubated -vent settings as per ICU team -monitor blood gases -wean from vent as per ICU team #CV -hemodynamically stable -no indication for pressors at this time -hold anti-hypertensives #PPx -DVT: SCDs -GI: IV PTX #FEN -NS 100 -monitor and replete electrolytes -NPO #code -DNR only #dispo -cont to monitor in ICU Visit type - Emergency Visit Emergency Visit: No - New Patient This patient is new to me today: No - Critical Care Critical Care patient: Yes Total Critical Care Time (in minutes): 40 Critical Care Statement: The care of this patient involved high complexity decision making to prevent further life threatening deterioration of the patient 's condition and/or to evaluate & treat vital organ system(s) failure or risk of failure.
[2018-06-30] MEDS: SODIUM CHLORIDE 1,000 ML IV SCH (12:13)
[2018-06-30] MEDS: HEPARIN NA (PORCINE) 5,000 UNITS/ML 1ML VIAL SQ SCH ×2 (13:22→21:30)
--- NOTE | 2018-06-30 16:45 | PN ---
Progress Note, Physician History of Present Illness: patient continues to be intubated choley tube draining greenish fluid lot of drainage - Current Medication List Current Medications: Active Medications Chlorhexidine Gluconate (Hibiclens For Decolonization -) 1 applic TP HS [facility] Last Admin: 06/29/18 22:42 Dose: 1 applic Heparin Sodium (Porcine) (Heparin -) 5,000 unit SQ TID [facility] Last Admin: 06/30/18 13:22 Dose: 5,000 unit Ertapenem 1 gm/ Sodium (Chloride) 50 mls @ 100 mls/hr IVPB DAILY [facility] Last Admin: 06/30/18 09:21 Dose: 100 mls/hr Metronidazole (Flagyl 500mg Premixed Ivpb -) 500 mg in 100 mls @ 100 mls/hr IVPB Q8H-IV [facility]ANG Last Admin: 06/30/18 09:03 Dose: 100 mls/hr Sodium Chloride (Normal Saline -) 1,000 mls @ 100 mls/hr IV ASDIR [facility] Last Admin: 06/30/18 12:13 Dose: 100 mls/hr Piperacillin Sod/Tazobactam (Sod 2.25 gm/ Dextrose) 50 mls @ 100 mls/hr IVPB Q6H-IV HOANG; Protocol Last Admin: 06/30/18 15:43 Dose: 100 mls/hr Metoprolol Tartrate (Lopressor -) 100 mg GT BID [facility] Last Admin: 06/30/18 09:02 Dose: 100 mg Mirtazapine (Remeron -) 15 mg GT HS [facility] Last Admin: 06/29/18 22:42 Dose: Not Given Mupirocin (Bactroban Ointment (For Decolonization) -) 1 applic NS BID [facility] Stop: 07/04/18 09:59 Last Admin: 06/30/18 09:02 Dose: 1 applic Olanzapine (Zyprexa -) 2.5 mg PO BID [facility] Last Admin: 06/30/18 09:03 Dose: 2.5 mg Pantoprazole Sodium (Protonix Iv) 40 mg IVPUSH DAILY [facility] Last Admin: 06/30/18 09:03 Dose: 40 mg - Objective Vital Signs: Vital Signs Temperature 98.9 F 06/30/18 14:00 Pulse Rate 61 06/30/18 14:00 Respiratory Rate 14 06/30/18 14:00 Blood Pressure 132/60 06/30/18 14:00 O2 Sat by Pulse Oximetry (%) 100 06/30/18 10:00 Constitutional: Yes: Calm, Other Cardiovascular: Yes: Regular Rate and Rhythm Respiratory: Yes: Intubated, Mechanically Ventilated Gastrointestinal: Yes: Normal Bowel Sounds, Soft Musculoskeletal: Yes: WNL Extremities: Yes: WNL Neurological: Yes: Alert, Oriented Psychiatric: Yes: Alert, Oriented Labs: CBC, BMP 06/30/18 05:30 06/30/18 05:30 INR, PTT INR 1.62 (0.83-1.09) H 06/29/18 05:30 Assessment/Plan Acute Hypoxic Respiratory Failure Acute Cholangitis s/p Cholecystostomy tube placement 06/29 Severe Sepsis Acute Kidney Injury Lactic Acidosis Elevated LFTs likely Ischemic Injury Thrombocytopenia r/o DIC HTN Dementia plan continue zosyn await for all cx rest as per icu resp support nutrition cc 38 min
--- NOTE | 2018-06-30 17:23 | PN.GI ---
GI Progress Note Subjective: No acute events per nurse S/P Cholecystostomy. 80cc bile drained overnight - Objective Vital Signs: Vital Signs Temperature 99.6 F 06/30/18 16:48 Pulse Rate 61 06/30/18 16:48 Respiratory Rate 15 06/30/18 16:48 Blood Pressure 139/60 06/30/18 16:48 O2 Sat by Pulse Oximetry (%) 100 06/30/18 10:00 Constitutional: Calm Eyes: Yes: Sclera Icterus Cardiovascular: Yes: Regular Rate and Rhythm Respiratory: Yes: Diminished (at bases but with poor insp effort) Gastrointestinal Inspection: Yes: Other (G Tube in LUQ) ...Auscultate: Yes: Normoactive Bowel Sounds ...Palpate: Yes: Tenderness (Grimacing upon palpation of the RUQ) ...Percussion: No: Tympanitic Edema: No (No LE edema) Neurological: Yes: Other (Intubated) Labs: CBC, BMP 06/30/18 05:30 06/30/18 05:30 INR, PTT INR 1.62 (0.83-1.09) H 06/29/18 05:30 Hepatic Panel Total Bilirubin 4.1 mg/dL (0.2-1) H 06/30/18 05:30 Direct Bilirubin 3.6 mg/dL (0.0-0.2) H 06/29/18 02:30 AST 101 U/L (15-37) H 06/30/18 05:30 ALT 131 U/L (13-61) H 06/30/18 05:30 Alkaline Phosphatase 115 U/L (45-117) 06/30/18 05:30 Albumin 2.2 g/dl (3.4-5.0) L 06/30/18 05:30 Problem List - Problems (1) Cholangitis Assessment/Plan: Possible cholecustitis. Family opted for conservative measures via attempt at gallbladder and biliary tract decompression via cholecystostomy Transaminases improved, bili still elevated. Afebrile with improved leukocytosis Continue to monitor LFTs, CBC IV Abx per ID Cholecystostomy drainage Code(s): K83.09 - OTHER CHOLANGITIS
--- NOTE | 2018-06-30 18:41 | PN ---
Teaching Attending Note Name of Resident: Shai Sexton ATTENDING PHYSICIAN STATEMENT I saw and evaluated the patient. I reviewed the resident's note and discussed the case with the resident. I agree with the resident's findings and plan as documented. SUBJECTIVE: Intubated/Sedated, unable to participate in medical interview OBJECTIVE: Tmax 100.1, Hemodynamically Stable. Last Vital Signs Temp Pulse Resp BP Pulse Ox 99.6 F 61 15 139/60 100 06/30/18 16:48 06/30/18 16:48 06/30/18 16:48 06/30/18 16:48 06/30/18 15:00 HEENT - Atraumatic, Normocephalic Heart - S1, S2, RRR Lungs - Intubated/Ventilated. Good air entry bilaterally Abdomen - Soft. Cholecystostomy tube draining bilious fluid. PEG in situ Extremities - no calf swelling. Laboratory Results - last 24 hr 06/30/18 06/30/18 05:30 05:30 WBC 7.2 RBC 3.29 L Hgb 10.9 L Hct 32.6 L MCV 99.1 H MCH 33.2 MCHC 33.5 RDW 14.3 Plt Count 89 L MPV 10.0 Absolute Neuts (auto) 6.4 Neutrophils % 88.4 H Lymphocytes % 7.5 L D Monocytes % 3.3 L Eosinophils % 0.7 D Basophils % 0.1 Nucleated RBC % 0 Sodium 145 Potassium 3.7 Chloride 113 H Carbon Dioxide 24 Anion Gap 8 BUN 68 H Creatinine 2.3 H Creat Clearance w eGFR 26.97 Random Glucose 97 Calcium 7.2 L Phosphorus 2.8 Magnesium 2.6 H Total Bilirubin 4.1 H AST 101 H ALT 131 H Alkaline Phosphatase 115 Total Protein 5.5 L Albumin 2.2 L Current Medications Generic Name Dose Route Start Last Admin Trade Name Freq PRN Reason Stop Dose Admin Chlorhexidine Gluconate 1 applic 06/29/18 22:00 06/29/18 22:42 Hibiclens For Decolonization - TP 1 applic HS HOANG Administration Heparin Sodium (Porcine) 5,000 unit 06/30/18 14:00 06/30/18 13:22 Heparin - SQ 5,000 unit TID HOANG Administration Sodium Chloride 1,000 mls @ 100 mls/hr 06/29/18 11:31 06/30/18 12:13 Normal Saline - IV 100 mls/hr ASDIR HOANG Administration Piperacillin Sod/Tazobactam 50 mls @ 100 mls/hr 06/29/18 21:00 06/30/18 15:43 Sod 2.25 gm/ Dextrose IVPB 100 mls/hr Q6H-IV HOANG Administration Protocol Metoprolol Tartrate 100 mg 06/29/18 10:00 06/30/18 09:02 Lopressor - GT 100 mg BID HOANG Administration Mirtazapine 15 mg 06/29/18 22:00 06/29/18 22:42 Remeron - GT Not Given HS HOANG Mupirocin 1 applic 06/29/18 10:00 06/30/18 09:02 Bactroban Ointment (For Decolonization) - NS 07/04/18 09:59 1 applic BID HOANG Administration Olanzapine 2.5 mg 06/29/18 10:00 06/30/18 09:03 Zyprexa - PO 2.5 mg BID HOANG Administration Pantoprazole Sodium 40 mg 06/29/18 10:00 06/30/18 09:03 Protonix Iv IVPUSH 40 mg DAILY HOANG Administration ASSESSMENT AND PLAN: 87 year old male from [facility] with history of cholecystitis s/p cholecystectomy with choledocholithiasis s/p ERCP with stone extraction, prior cholecystostomy tube (dislodged 10/2017 and never replaced), Dementia, s/p PEG, HTN, presented with SOB, requiring treatment for severe sepsis and intubation for respiratory distress. 1. Acute Hypoxic Respiratory Failure and Severe Sepsis secondary to recurrent Acute Cholangitis with Bacteremia US/CT - shows thickend GB and biliary dilatation with possible CBD stones s/p percutaneous cholecystostomy by IR 06/29 Blood Cx positive for LFNB Abx Ertapenem/Vanco transitioned to Zosyn, ID following. Lactic Acidosis resolved. 2. JUAN J secondary to sepsis - continue IV hydration. 3. Elevated LFTs - secondary to cholangitis with likely obstruction - improving TBil 4.1, AST 146 ---> 101, ALT 198 --->131 GI to evaluate for ERCP when more stable. s/p percutaneous cholecystostomy by IR 06/29 4. HTN - Continued on Metoprolol. Norvasc held. 5. Dementia - normally on Zyprexa, Remeron, Klonopin 6. Thrombocytopenia, likely reactive. Will monitor - if any further drop, will hold Heparin. DVT Px - Heparin SQ GI Px - PPI DNR
[2018-06-30] MEDS: MIRTAZAPINE 15 MG TABLET (FP) GT SCH (21:36)
[2018-06-30] MEDS: CHLORHEXIDINE GLUCONATE 4% CLEANSER FOR DECOLONIZATION TP SCH (21:37)
[2018-07-01] MEDS ORDERED: PIPERACILLIN/TAZOBACTAM 2.25 GM VIAL IVPB ONE ×3 (01:58→14:04)
[2018-07-01] MEDS ORDERED: DEXTROSE 5%-WATER - 50 ML IVPB ONE ×3 (01:59→14:05)
[2018-07-01] MEDS: PIPERACILLIN/TAZOB 2.25 GM 2.25 GM in DEXTROSE 5%-WATER - 50 ML IVPB SCH ×3 (02:07→14:03)
[2018-07-01 06:47] LABS: BASO % 0.3 % (0-2.0); EOS % 1.2 % (0-4.5); HEMATOCRIT 29.7 % (35.4-49); HEMOGLOBIN 9.9 GM/dL (11.7-16.9); LYMPH % 11.7 % (8-40); MCHC 33.2 g/dl (32.0-35.9); MEAN CELL VOLUME 99.4 fl (80-96); MEAN PLT VOLUME 10.2 fl (7.5-11.1); MONO % 4.7 % (3.8-10.2); NEUT % 82.1 % (42.8-82.8); PLATELET COUNT 89 K/MM3 (134-434); RBC 2.99 M/mm3 (4.00-5.60); RDW 14.5 % (11.9-15.9); WHITE BLOOD COUNT 5.2 K/mm3 (4.0-10.0)
[2018-07-01] MEDS: HEPARIN NA (PORCINE) 5,000 UNITS/ML 1ML VIAL SQ SCH ×2 (06:51→14:03)
[2018-07-01 07:07] LABS: ALBUMIN 1.9 g/dl (3.4-5.0); ALK PHOS 98 U/L (45-117); ANION GAP 10 MMOL/L (8-16); BILIRUBIN,TOTAL 3.3 mg/dL (0.2-1); BLOOD UREA NITROGEN 60 mg/dL (7-18); CHLORIDE 118 mmol/L (98-107); CO2 22 mmol/L (21-32); CREATININE 1.9 mg/dL (0.55-1.3); GLUCOSE,RANDOM 90 mg/dL (74-106); MAGNESIUM 2.5 mg/dL (1.8-2.4); PHOSPHOROUS 3.3 mg/dL (2.5-4.9); POTASSIUM 3.8 mmol/L (3.5-5.1); SGOT/AST 58 U/L (15-37); SGPT/ALT 81 U/L (13-61); SODIUM 150 mmol/L (136-145)
--- NOTE | 2018-07-01 08:10 | PN ---
Physical Exam: SUBJECTIVE: Patient seen and examined at bedside. No acute events overnight. Pt intubated and off sedation. OBJECTIVE: Vital Signs Period Temp Pulse Resp BP Sys/Hernandez Pulse Ox Last 24 Hr 98.7 F-100.1 F 61-78 14-19 118-150/56-70 98-100 GENERAL: Off sedation, intubated. Facial grimaces to pain. HEENT: AT/NC. EOMI. Moist mucus membranes. NECK: Normal range of motion, supple without lymphadenopathy, JVD, or masses. LUNGS: Decreased breath sounds, poor inspiratory effort. HEART: RRR. Normal S1, S2. ABDOMEN: Abd mildly distended. G tube in place, c/d/i, no secretions, erythema or signs of infection noted. +cholecystostomy tube, draining cloudy dark green fluid. EXTREMITIES: B/l peripheral edema noted. NEUROLOGICAL: Unable to assess. SKIN: Warm, dry, normal turgor, no rashes or lesions noted. Laboratory Results - last 24 hr 07/01/18 07/01/18 05:30 05:30 WBC 5.2 RBC 2.99 L Hgb 9.9 L Hct 29.7 L MCV 99.4 H MCH 33.0 MCHC 33.2 RDW 14.5 Plt Count 89 L MPV 10.2 Absolute Neuts (auto) 4.3 Neutrophils % 82.1 Lymphocytes % 11.7 D Monocytes % 4.7 Eosinophils % 1.2 Basophils % 0.3 Nucleated RBC % 0 Sodium 150 H Potassium 3.8 Chloride 118 H Carbon Dioxide 22 Anion Gap 10 BUN 60 H Creatinine 1.9 H Creat Clearance w eGFR 33.62 Random Glucose 90 Calcium 7.0 L Phosphorus 3.3 Magnesium 2.5 H Total Bilirubin 3.3 H AST 58 H ALT 81 H Alkaline Phosphatase 98 Total Protein 5.0 L Albumin 1.9 L Active Medications Chlorhexidine Gluconate (Hibiclens For Decolonization -) 1 applic TP HS [facility] Last Admin: 06/30/18 21:37 Dose: 1 applic Heparin Sodium (Porcine) (Heparin -) 5,000 unit SQ TID [facility] Last Admin: 07/01/18 06:51 Dose: 5,000 unit Sodium Chloride (Normal Saline -) 1,000 mls @ 100 mls/hr IV ASDIR [facility] Last Admin: 06/30/18 12:13 Dose: 100 mls/hr Piperacillin Sod/Tazobactam (Sod 2.25 gm/ Dextrose) 50 mls @ 100 mls/hr IVPB Q6H-IV HOANG; Protocol Last Admin: 07/01/18 02:07 Dose: 100 mls/hr Metoprolol Tartrate (Lopressor -) 100 mg GT BID [facility] Last Admin: 06/30/18 21:36 Dose: 100 mg Mirtazapine (Remeron -) 15 mg GT HS [facility] Last Admin: 06/30/18 21:36 Dose: Not Given Mupirocin (Bactroban Ointment (For Decolonization) -) 1 applic NS BID [facility] Stop: 07/04/18 09:59 Last Admin: 06/30/18 21:39 Dose: 1 applic Olanzapine (Zyprexa -) 2.5 mg PO BID [facility] Last Admin: 06/30/18 21:39 Dose: 2.5 mg Pantoprazole Sodium (Protonix Iv) 40 mg IVPUSH DAILY [facility] Last Admin: 06/30/18 09:03 Dose: 40 mg CONSULT: GI- Dr. Beltran Surg- Dr. Johnson ID- Dr. Chadwick IR- Dr. Joe IMAGING: * CXR: Slight increase in central markings. Discrete infiltrate not seen. Since 10/2017, there is no change of an adverse nature. * CTAP: Distended GB * Abd U/S: distended GB, dilated CBD, dilated intrahepatic ducts ASSESSMENT/PLAN: 87M w/ pmhx of ascending cholangitis, Alzheimers disease, HTN, aspiration PNA, s /p G tube placement presented from [facility] with shortness of breath found to be sepsis 2/2 acute cholangitis. ID #Severe sepsis 2/2 acute cholangitis, ? aspiration pneumonia -lactate normalized -Per ID, IV Ertapenem and Zosyn as pt has hx of MDR organism in the past -BCx +ESBL, staph coag neg; U/A neg -ID consult ordered NEURO #Dementia -Hold home meds for now -cont to monitor mental status PULM #Acute Hypoxic Respiratory Failure -Intubated. Stable on vent -Duonebs, Lasix 40 given x1 in ED -ABG noted; cont to monitor O2 sat -Repeat CXR in AM CV #HTN -HD stable, no pressors needed at this time -Cont Metoprolol, hold Norvasc -Cont to monitor pressures, maintain MAP >65 GI #Ascending cholangitis s/p cholecystostomy tube placement (06/29/18) -Abd U/S showed distended GB, dilated CBD, dilated intrahepatic ducts -CTAP showed distended GB -GI consult ordered; will need to discuss need for ERCP with family for further intervention -s/p cholecystostomy tube; monitor drain output -Per ID, switch IV abx to Meropenem -GI following RENAL #Hypernatremia -change IVf NS to LR -repeat BMP -NG tube free water flushes HEME #Thrombocytopenia -may be reactive, hold DVT ppx for now -trend CBC Prophylaxis -SQH held for thrombocytopenia -Protonix 40 QD FEN -LR @ 100; free water flushes -replete lytes PRN -NPO Lines -[facility] (06/28) -davila -ET (06/28) -cholecystostomy tube (06/29) -G tube Code status: DNR Dispo: We will continue to follow the patient. Thank you for this consultative opportunity. Visit type - Emergency Visit Emergency Visit: Yes ED Registration Date: 06/28/18 Care time: The patient presented to the Emergency Department on the above date and was hospitalized for further evaluation of their emergent condition. - New Patient This patient is new to me today: No - Critical Care Critical Care patient: Yes Total Critical Care Time (in minutes): 35 Critical Care Statement: The care of this patient involved high complexity decision making to prevent further life threatening deterioration of the patient 's condition and/or to evaluate & treat vital organ system(s) failure or risk of failure.
--- NOTE | 2018-07-01 10:16 | PN ---
Teaching Attending Note Name of Resident: Zonia Cotton ATTENDING PHYSICIAN STATEMENT I saw and evaluated the patient. I reviewed the resident's note and discussed the case with the resident. I agree with the resident's findings and plan as documented. SUBJECTIVE: Patient seen and examined in the ICU. Remains intubated and sedated. Sedation stopped. Poorly arousable. No pressors. Cholecystostomy tube still draining purulent bilious drainage. OBJECTIVE: Intake & Output 06/28/18 06/29/18 06/30/18 07/01/18 23:59 23:59 23:59 23:59 Intake Total 135 040 1450 1300 Output Total 660 960 480 Balance 946 469 9514 820 Weight 140 lb 161 lb 6.054 oz 161 lb 164 lb 3.91 oz Last Vital Signs Temp Pulse Resp BP Pulse Ox 99.2 F 76 19 121/81 100 07/01/18 05:00 07/01/18 09:00 07/01/18 09:00 07/01/18 09:00 06/30/18 20:42 Active Medications Chlorhexidine Gluconate (Hibiclens For Decolonization -) [address] [facility] Last Admin: 06/30/18 21:37 Dose: 1 applic Heparin Sodium (Porcine) (Heparin -) 5,000 unit SQ TID [facility] Last Admin: 07/01/18 06:51 Dose: 5,000 unit Piperacillin Sod/Tazobactam (Sod 2.25 gm/ Dextrose) 50 mls @ 100 mls/hr IVPB Q6H-IV [facility]ANG; Protocol Last Admin: 07/01/18 02:07 Dose: 100 mls/hr Lactated Ringer's (Lactated Ringers Solution) 1,000 ml in 1,000 mls @ 100 mls/ hr IV ASDIR HOANG Metoprolol Tartrate (Lopressor -) [address] [facility] Last Admin: 06/30/18 21:36 Dose: 100 mg Mirtazapine (Remeron -) [address] [facility] Last Admin: 06/30/18 21:36 Dose: Not Given Mupirocin (Bactroban Ointment (For Decolonization) -) [address] [facility] Stop: 07/04/18 09:59 Last Admin: 06/30/18 21:39 Dose: 1 applic Olanzapine (Zyprexa -) 2.[address] [facility] Last Admin: 06/30/18 21:39 Dose: 2.5 mg Pantoprazole Sodium (Protonix Iv) [address] [facility] Last Admin: 06/30/18 09:03 Dose: 40 mg Gen: intubated, sedated Heart: RRR Lung: decreased breath sounds at the bases, scattered rhonchi Abd: soft, +cholecystostomy tube Ext: no edema Laboratory Results - last 24 hr 07/01/18 07/01/18 05:30 05:30 WBC 5.2 RBC 2.99 L Hgb 9.9 L Hct 29.7 L MCV 99.4 H MCH 33.0 MCHC 33.2 RDW 14.5 Plt Count 89 L MPV 10.2 Absolute Neuts (auto) 4.3 Neutrophils % 82.1 Lymphocytes % 11.7 D Monocytes % 4.7 Eosinophils % 1.2 Basophils % 0.3 Nucleated RBC % 0 Sodium 150 H Potassium 3.8 Chloride 118 H Carbon Dioxide 22 Anion Gap 10 BUN 60 H Creatinine 1.9 H Creat Clearance w eGFR 33.62 Random Glucose 90 Calcium 7.0 L Phosphorus 3.3 Magnesium 2.5 H Total Bilirubin 3.3 H AST 58 H ALT 81 H Alkaline Phosphatase 98 Total Protein 5.0 L Albumin 1.9 L ASSESSMENT AND PLAN: Acute Hypoxic Respiratory Failure Acute Cholangitis s/p Cholecystostomy tube placement 06/29 Severe Sepsis Acute Kidney Injury Lactic Acidosis Elevated LFTs likely Ischemic Injury Thrombocytopenia r/o DIC HTN Dementia - Follow CVP - Continue IVF - IV antibiotics - f/u final cultures - monitor urine output, creatinine - Hold sedation and SBTs as tolerated - DVT/GI prophylaxis - Requires ICU monitoring Dr Corral Critical care time spent in reviewing chart, evaluating patient and formulating plan 36 min
[2018-07-01] MEDS ORDERED: LACTATED RINGERS SOLUTION 1,000 ML/1,000 ML INFUS.BAG IV SCH ×2 (10:30→16:42)
[2018-07-01] MEDS: OLANZapine 2.5 MG TABLET PO SCH (10:41)
[2018-07-01] MEDS: METOPROLOL TARTRATE 50 MG TABLET (FP) GT SCH ×2 (10:41→21:53)
[2018-07-01] MEDS: MUPIROCIN 2% TOPICAL OINTMENT FOR DECOLONIZATION NS SCH ×2 (10:41→21:52)
[2018-07-01] MEDS: PANTOPRAZOLE SODIUM 40 MG VIAL IVPUSH SCH (10:41)
--- NOTE | 2018-07-01 13:20 | PN ---
Physical Exam: SUBJECTIVE: Patient seen and examined at bedside in ICU. Intubated, off sedation , lethargic. OBJECTIVE: Vital Signs Period Temp Pulse Resp BP Sys/Hernandez Pulse Ox Last 24 Hr 98.9 F-100.1 F 55-78 14-19 118-150/52-81 99-100 GENERAL: Intubated, has been off sedation, remains highly lethargic HEENT: NC/AT, PERRLA, MMM NECK: Trachea midline, supple LUNGS: no adventitious sounds appreciated over ventilator HEART: RRR no m/r/g ABDOMEN: soft, mild distention, g-tube c/d/i, cholecystostomy tube c/d/i draining bilious fluid EXTREMITIES: 2+ pulses, warm, well-perfused, b/l peripheral edema NEUROLOGICAL: unable to assess PSYCH: unable to assess SKIN: Warm, dry, normal turgor, no rashes or lesions noted Laboratory Results - last 24 hr 07/01/18 07/01/18 05:30 05:30 WBC 5.2 RBC 2.99 L Hgb 9.9 L Hct 29.7 L MCV 99.4 H MCH 33.0 MCHC 33.2 RDW 14.5 Plt Count 89 L MPV 10.2 Absolute Neuts (auto) 4.3 Neutrophils % 82.1 Lymphocytes % 11.7 D Monocytes % 4.7 Eosinophils % 1.2 Basophils % 0.3 Nucleated RBC % 0 Sodium 150 H Potassium 3.8 Chloride 118 H Carbon Dioxide 22 Anion Gap 10 BUN 60 H Creatinine 1.9 H Creat Clearance w eGFR 33.62 Random Glucose 90 Calcium 7.0 L Phosphorus 3.3 Magnesium 2.5 H Total Bilirubin 3.3 H AST 58 H ALT 81 H Alkaline Phosphatase 98 Total Protein 5.0 L Albumin 1.9 L Active Medications Generic Name Dose Route Start Last Admin Trade Name Freq PRN Reason Stop Dose Admin Chlorhexidine Gluconate 1 applic 06/29/18 22:00 06/30/18 21:37 Hibiclens For Decolonization - TP 1 applic HS HOANG Administration Heparin Sodium (Porcine) 5,000 unit 06/30/18 14:00 07/01/18 06:51 Heparin - SQ 5,000 unit TID HOANG Administration Piperacillin Sod/Tazobactam 50 mls @ 100 mls/hr 06/29/18 21:00 07/01/18 09:41 Sod 2.25 gm/ Dextrose IVPB 100 mls/hr Q6H-IV HOANG Administration Protocol Lactated Ringer's 1,000 ml in 1,000 mls @ 100 mls/hr 07/01/18 10:30 07/01/18 10:41 Lactated Ringers Solution IV 100 mls/hr ASDIR HOANG Administration Metoprolol Tartrate 100 mg 06/29/18 10:00 07/01/18 10:41 Lopressor - GT 100 mg BID HOANG Administration Mirtazapine 15 mg 06/29/18 22:00 06/30/18 21:36 Remeron - GT Not Given HS HOANG Mupirocin 1 applic 06/29/18 10:00 07/01/18 10:41 Bactroban Ointment (For Decolonization) - NS 07/04/18 09:59 1 applic BID HOANG Administration Olanzapine 2.5 mg 06/29/18 10:00 07/01/18 10:41 Zyprexa - PO 2.5 mg BID HOANG Administration Pantoprazole Sodium 40 mg 06/29/18 10:00 07/01/18 10:41 Protonix Iv IVPUSH 40 mg DAILY HOANG Administration ASSESSMENT/PLAN: 87 y/o M w/ PMHx of ascending cholangitis s/p cholecystostomy placed and removed last October, AD, HTN, aspiration PNA, s/p PEG placement, presented from [facility] w/ SOB found to be septic 2/2 recurrent acute cholangitis, admitted to ICU, intubated and sedated. #GI -transaminitis, direct and total hyperbilirubinemia likely 2/2 ascending cholangitis -Sx consulted, not a surgical candidate per prior hospitalizations for this issue -abd US: distended GB, dilated CBD, dilated intrahepatic ducts -CT a/p w/o contrast: distended GB -GI following, recommended MRCP but this is deferred at this time -cholecystostomy tube placed by IR and draining -f/u hepatobiliary labs #ID -septic 2/2 ascending cholangitis -on presentation febrile, tachycardic, WBC 16.8 --> 14.4 -previously biliary cultures grew multiple MDR organisms including Acinetobacter -BCx 06/28 growing ESBL E coli and coag- Staph spp -cont Zosyn based on C/S (day 4 of total ABx), other ABx held -cont IVF -ID following #neuro -off sedation -haloperidol/benadryl/ativan as needed to control aggression -resume olanzapine and mirtazapine #pulm -presented in acute hypoxic respiratory failure and was intubated -vent settings as per ICU team -monitor blood gases -wean from vent as per ICU team #CV -hemodynamically stable -no indication for pressors at this time -hold anti-hypertensives #PPx -DVT: SCDs -GI: IV PTX #FEN -LR 100 -monitor and replete electrolytes -NPO #code -DNR only #dispo -cont to monitor in ICU Visit type - Emergency Visit Emergency Visit: No - New Patient This patient is new to me today: No - Critical Care Critical Care patient: Yes Total Critical Care Time (in minutes): 40 Critical Care Statement: The care of this patient involved high complexity decision making to prevent further life threatening deterioration of the patient 's condition and/or to evaluate & treat vital organ system(s) failure or risk of failure.
--- NOTE | 2018-07-01 14:04 | PN ---
Teaching Attending Note Name of Resident: Carlos Hernandez ATTENDING PHYSICIAN STATEMENT I saw and evaluated the patient. I reviewed the resident's note and discussed the case with the resident. I agree with the resident's findings and plan as documented. SUBJECTIVE: Intubated. Poorly responsive off sedation, Unable to participate in medical interview OBJECTIVE: Tmax 99.8, Hemodynamically Stable. Last Vital Signs Temp Pulse Resp BP Pulse Ox 99.8 F H 55 L 14 135/52 L 100 07/01/18 10:23 07/01/18 12:56 07/01/18 12:56 07/01/18 12:56 07/01/18 12:18 HEENT - Atraumatic, Normocephalic Heart - S1, S2, RRR Lungs - Intubated/Ventilated. Good air entry bilaterally Abdomen - Soft. Cholecystostomy tube draining bilious fluid. PEG in situ Extremities - no calf swelling. Neuro - poorly responsive, grimaces to noxious stimulus, HALEY Laboratory Results - last 24 hr 07/01/18 07/01/18 05:30 05:30 WBC 5.2 RBC 2.99 L Hgb 9.9 L Hct 29.7 L MCV 99.4 H MCH 33.0 MCHC 33.2 RDW 14.5 Plt Count 89 L MPV 10.2 Absolute Neuts (auto) 4.3 Neutrophils % 82.1 Lymphocytes % 11.7 D Monocytes % 4.7 Eosinophils % 1.2 Basophils % 0.3 Nucleated RBC % 0 Sodium 150 H Potassium 3.8 Chloride 118 H Carbon Dioxide 22 Anion Gap 10 BUN 60 H Creatinine 1.9 H Creat Clearance w eGFR 33.62 Random Glucose 90 Calcium 7.0 L Phosphorus 3.3 Magnesium 2.5 H Total Bilirubin 3.3 H AST 58 H ALT 81 H Alkaline Phosphatase 98 Total Protein 5.0 L Albumin 1.9 L Current Medications Generic Name Dose Route Start Last Admin Trade Name Freq PRN Reason Stop Dose Admin Chlorhexidine Gluconate 1 applic 06/29/18 22:00 06/30/18 21:37 Hibiclens For Decolonization - TP 1 applic HS HOANG Administration Heparin Sodium (Porcine) 5,000 unit 06/30/18 14:00 07/01/18 06:51 Heparin - SQ 5,000 unit TID HOANG Administration Piperacillin Sod/Tazobactam 50 mls @ 100 mls/hr 06/29/18 21:00 07/01/18 09:41 Sod 2.25 gm/ Dextrose IVPB 100 mls/hr Q6H-IV HOANG Administration Protocol Lactated Ringer's 1,000 ml in 1,000 mls @ 100 mls/hr 07/01/18 10:30 07/01/18 10:41 Lactated Ringers Solution IV 100 mls/hr ASDIR HOANG Administration Metoprolol Tartrate 100 mg 06/29/18 10:00 07/01/18 10:41 Lopressor - GT 100 mg BID HOANG Administration Mirtazapine 15 mg 06/29/18 22:00 06/30/18 21:36 Remeron - GT Not Given HS HOANG Mupirocin 1 applic 06/29/18 10:00 07/01/18 10:41 Bactroban Ointment (For Decolonization) - NS 07/04/18 09:59 1 applic BID HOANG Administration Olanzapine 2.5 mg 06/29/18 10:00 07/01/18 10:41 Zyprexa - PO 2.5 mg BID HOANG Administration Pantoprazole Sodium 40 mg 06/29/18 10:00 07/01/18 10:41 Protonix Iv IVPUSH 40 mg DAILY HOANG Administration ASSESSMENT AND PLAN: 87 year old male from [facility] with history of cholecystitis s/p cholecystectomy with choledocholithiasis s/p ERCP with stone extraction, prior cholecystostomy tube (dislodged 10/2017 and never replaced), Dementia, s/p PEG, HTN, presented with SOB, requiring treatment for severe sepsis and intubation for respiratory distress. 1. Acute Hypoxic Respiratory Failure and Severe Sepsis secondary to recurrent Acute Cholangitis with Bacteremia US/CT - shows thickend GB and biliary dilatation with possible CBD stones s/p percutaneous cholecystostomy by IR 06/29 Fluid Cx ESBL, Pseudomonas Blood Cx positive for EColi (ESBL), Staph hominis - repeat Blood Cx negative. Abx Ertapenem/Vanco in ED initially transitioned to Zosyn, now switched to Meropenem. ID following. Lactic Acidosis resolved. 2. JUAN J secondary to sepsis - Creat improving - continue IV hydration. 3. Elevated LFTs - secondary to cholangitis with likely obstruction - improving TBil 3.3, AST 146 ---> 58, ALT 198 --->81 GI to evaluate for ERCP when more stable. s/p percutaneous cholecystostomy by IR 06/29 4. HTN - Continued on Metoprolol. Norvasc held. 5. Dementia - normally on Zyprexa, Remeron, Klonopin - will hold given mental status currently. 6. Thrombocytopenia, likely reactive. Will hold Heparin for platelets < 100. 7. Hypernatremia - secondary to dehydration +/- IV NaCl - needs free water via PEG 8. Macrocytic Anemia - H/H 9.9/29.7/MCV 99.4 - will request B12 and Folate levels DVT Px - Heparin SQ held for Thrombocytopenia GI Px - PPI DNR
--- NOTE | 2018-07-01 14:23 | PN ---
Progress Note, Physician History of Present Illness: continues to be intubated cx blood now esbl still poorly responsive - Current Medication List Current Medications: Active Medications Chlorhexidine Gluconate (Hibiclens For Decolonization -) 1 applic TP HS [facility] Last Admin: 06/30/18 21:37 Dose: 1 applic Heparin Sodium (Porcine) (Heparin -) 5,000 unit SQ TID [facility] Last Admin: 07/01/18 14:03 Dose: 5,000 unit Piperacillin Sod/Tazobactam (Sod 2.25 gm/ Dextrose) 50 mls @ 100 mls/hr IVPB Q6H-IV HOANG; Protocol Last Admin: 07/01/18 14:03 Dose: 100 mls/hr Lactated Ringer's (Lactated Ringers Solution) 1,000 ml in 1,000 mls @ 100 mls/ hr IV ASDIR [facility] Last Admin: 07/01/18 10:41 Dose: 100 mls/hr Metoprolol Tartrate (Lopressor -) 100 mg GT BID [facility] Last Admin: 07/01/18 10:41 Dose: 100 mg Mirtazapine (Remeron -) 15 mg GT HS [facility] Last Admin: 06/30/18 21:36 Dose: Not Given Mupirocin (Bactroban Ointment (For Decolonization) -) 1 applic NS BID [facility] Stop: 07/04/18 09:59 Last Admin: 07/01/18 10:41 Dose: 1 applic Olanzapine (Zyprexa -) 2.5 mg PO BID [facility] Last Admin: 07/01/18 10:41 Dose: 2.5 mg Pantoprazole Sodium (Protonix Iv) 40 mg IVPUSH DAILY [facility] Last Admin: 07/01/18 10:41 Dose: 40 mg - Objective Vital Signs: Vital Signs Temperature 99.8 F H 07/01/18 10:23 Pulse Rate 55 L 07/01/18 12:56 Respiratory Rate 14 07/01/18 12:56 Blood Pressure 135/52 L 07/01/18 12:56 O2 Sat by Pulse Oximetry (%) 100 07/01/18 12:18 Constitutional: Yes: No Distress, Other Cardiovascular: Yes: S1, S2 Respiratory: Yes: Intubated, Mechanically Ventilated Gastrointestinal: Yes: Normal Bowel Sounds, Soft Musculoskeletal: Yes: WNL Extremities: Yes: WNL Neurological: Yes: Other Psychiatric: Yes: Other Labs: CBC, BMP 07/01/18 05:30 07/01/18 05:30 INR, PTT INR 1.62 (0.83-1.09) H 06/29/18 05:30 Assessment/Plan Acute Hypoxic Respiratory Failure Acute Cholangitis s/p Cholecystostomy tube placement 06/29 Severe Sepsis Acute Kidney Injury Lactic Acidosis Elevated LFTs likely Ischemic Injury Thrombocytopenia r/o DIC HTN Dementia plan will change abx to meropenam nutrition resp support rest as per the team cc 38 min
[2018-07-01] MEDS: MEROPENEM 500 MG in DEXTROSE 5%-WATER 100 ML IVPB SCH ×2 (16:04→21:54)
--- NOTE | 2018-07-01 19:36 | PN.GI ---
GI Progress Note Subjective: No acute events reported 50cc dark bile in cholecystostomy bag - Objective Vital Signs: Vital Signs Temperature 98.0 F 07/01/18 14:00 Pulse Rate 67 07/01/18 18:00 Respiratory Rate 18 07/01/18 18:00 Blood Pressure 152/52 L 07/01/18 18:00 O2 Sat by Pulse Oximetry (%) 100 07/01/18 12:18 Constitutional: Calm Eyes: No: Sclera Icterus Cardiovascular: Yes: Regular Rate and Rhythm Respiratory: Yes: Diminished (at bases bilaterally) Gastrointestinal Inspection: No: Distention ...Auscultate: Yes: Normoactive Bowel Sounds ...Palpate: Yes: Tenderness (Grimacing upon palpation of the RUQ) ...Percussion: No: Tympanitic Edema: No (No LE edema) Neurological: Yes: Other (Intubated, sedated) Labs: CBC, BMP 07/01/18 05:30 07/01/18 05:30 INR, PTT INR 1.62 (0.83-1.09) H 06/29/18 05:30 Problem List - Problems (1) Cholangitis Assessment/Plan: Family opted for conservative management through Cholecystostomy drainage Bilirubin improving as is WBC Will likely need permanent percutaneous drainage IV Abx per ID Code(s): K83.09 - OTHER CHOLANGITIS
[2018-07-01] MEDS: CHLORHEXIDINE GLUCONATE 4% CLEANSER FOR DECOLONIZATION TP SCH (21:52)
[2018-07-01] MEDS: MIRTAZAPINE 15 MG TABLET (FP) GT SCH (21:54)
[2018-07-02 06:45] LABS: BASO % 0.2 % (0-2.0); EOS % 1.6 % (0-4.5); HEMATOCRIT 32.1 % (35.4-49); HEMOGLOBIN 10.6 GM/dL (11.7-16.9); LYMPH % 13.3 % (8-40); MCH 32.9 pg (25.7-33.7); MCHC 32.9 g/dl (32.0-35.9); MEAN CELL VOLUME 99.8 fl (80-96); MEAN PLT VOLUME 10.1 fl (7.5-11.1); MONO % 8.4 % (3.8-10.2); NEUT % 76.5 % (42.8-82.8); PLATELET COUNT 93 K/MM3 (134-434); RBC 3.22 M/mm3 (4.00-5.60); RDW 14.7 % (11.9-15.9); WHITE BLOOD COUNT 5.8 K/mm3 (4.0-10.0)
[2018-07-02 07:22] LABS: ALBUMIN 1.9 g/dl (3.4-5.0); ALK PHOS 97 U/L (45-117); ANION GAP 6 MMOL/L (8-16); BILIRUBIN,TOTAL 2.8 mg/dL (0.2-1); BLOOD UREA NITROGEN 54 mg/dL (7-18); CALCIUM 7.4 mg/dL (8.5-10.1); CHLORIDE 118 mmol/L (98-107); CO2 23 mmol/L (21-32); CREATININE 1.5 mg/dL (0.55-1.3); GLUCOSE,RANDOM 80 mg/dL (74-106); MAGNESIUM 2.7 mg/dL (1.8-2.4); PHOSPHOROUS 2.4 mg/dL (2.5-4.9); SGOT/AST 55 U/L (15-37); SGPT/ALT 68 U/L (13-61); SODIUM 147 mmol/L (136-145); TOT PROT 5.4 g/dl (6.4-8.2)
[2018-07-02] MEDS ORDERED: NAPH,MB-DB/K PH,MBDB POWDER PACKET PEG ONE (08:30)
[2018-07-02] MEDS ORDERED: PT OWN MED DRAWER 7, Y5N ONE ×2 (09:14→22:04)
[2018-07-02] MEDS: METOPROLOL TARTRATE 50 MG TABLET (FP) GT SCH ×2 (09:20→22:37)
[2018-07-02] MEDS: PANTOPRAZOLE SODIUM 40 MG VIAL IVPUSH SCH (09:21)
[2018-07-02] MEDS: MUPIROCIN 2% TOPICAL OINTMENT FOR DECOLONIZATION NS SCH ×2 (09:23→22:37)
--- NOTE | 2018-07-02 09:38 | PN ---
Physical Exam: SUBJECTIVE: Patient seen and examined. Patient has been off sedation but is poorly arousable. At baseline per in the ED he was able to communicate with her prior to admission. OBJECTIVE: Vital Signs Period Temp Pulse Resp BP Sys/Hernandez Pulse Ox Last 24 Hr 98.0 F-100.2 F 55-67 14-20 128-158/52-84 99-100 Vital Signs Temp 100.1 F H 07/02/18 09:41 Pulse 63 07/02/18 09:41 Resp 14 07/02/18 09:41 BP 137/94 07/02/18 09:41 Pulse Ox 100 07/01/18 21:13 Intake & Output 07/01/18 07/01/18 07/02/18 11:59 23:59 11:59 Intake Total 1300 1900 1200 Output Total 543 112 0386 Balance 820 1480 50 Weight 74.5 kg 74.5 kg Intake: IV 1200 1200 600 LACTATED RINGERS SOLUTION 1200 600 1,000 ml In 1,000 ml @ 50 mls/hr IV ASDIR HOANG Rx #:[id number] Normal Saline - 1,000 ml 1200 @ 100 mls/hr IV ASDIR HOANG Rx#:[id number] IVPB 100 200 100 Tube Irrigant 500 500 Output: Drainage 180 120 150 cholesystostomy 180 120 150 Urine [phone] Davila [id number] Other: Voiding Method Indwelling Catheter Indwelling Catheter Indwelling Catheter Bowel Movement Yes: large soft brown Weight Measurement Method Built in [facility] GENERAL: The patient is somnolent, 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 EYES: PERRL, extraocular movements intact, ENT: ETT AC-14/450/40/5 LUNGS: Breath sounds equal, clear to auscultation bilaterally, HEART: Regular rate and rhythm, S1, S2 ABDOMEN: Soft, nontender, nondistended, normoactive bowel sounds, PEG tube in place. drainage with greenish secretions EXTREMITIES: 2+ pulses, warm, well-perfused, no edema. NEUROLOGICAL: Somnolent CBC, BMP 07/02/18 05:30 07/02/18 05:30 Laboratory Results - last 24 hr 07/01/18 07/02/18 07/02/18 18:30 05:30 05:30 WBC 5.8 RBC 3.22 L Hgb 10.6 L Hct 32.1 L MCV 99.8 H MCH 32.9 MCHC 32.9 RDW 14.7 Plt Count 93 L MPV 10.1 Absolute Neuts (auto) 4.5 Neutrophils % 76.5 Lymphocytes % 13.3 Monocytes % 8.4 Eosinophils % 1.6 Basophils % 0.2 Nucleated RBC % 0 Sodium 147 H Potassium 4.0 Chloride 118 H Carbon Dioxide 23 Anion Gap 6 L BUN 54 H Creatinine 1.5 H Creat Clearance w eGFR 44.17 Random Glucose 80 Calcium 7.4 L Phosphorus 2.4 L Magnesium 2.7 H Total Bilirubin 2.8 H AST 55 H ALT 68 H Alkaline Phosphatase 97 Total Protein 5.4 L Albumin 1.9 L Vitamin B12 721 Serum Folate 32 H Active Medications Generic Name Dose Route Start Last Admin Trade Name Freq PRN Reason Stop Dose Admin Chlorhexidine Gluconate 1 applic 06/29/18 22:00 07/01/18 21:52 Hibiclens For Decolonization - TP 1 applic HS HOANG Administration Meropenem 500 mg/ Dextrose 100 mls @ 200 mls/hr 07/01/18 14:30 07/01/18 21:54 IVPB 200 mls/hr BID HOANG Administration Metoprolol Tartrate 100 mg 06/29/18 10:00 07/02/18 09:20 Lopressor - GT 100 mg BID HOANG Administration Mirtazapine 15 mg 06/29/18 22:00 07/01/18 21:54 Remeron - GT 15 mg HS HOANG Administration Mupirocin 1 applic 06/29/18 10:00 07/02/18 09:23 Bactroban Ointment (For Decolonization) - NS 07/04/18 09:59 1 applic BID HOANG Administration Pantoprazole Sodium 40 mg 06/29/18 10:00 07/02/18 09:21 Protonix Iv IVPUSH 40 mg DAILY HOANG Administration CONSULT: GI- Dr. Beltran Surg- Dr. Johnson ID- Dr. Chadwick IR- Dr. Joe IMAGING: * CTAP: Distended GB * Abd U/S: distended GB, dilated CBD, dilated intrahepatic ducts ASSESSMENT/PLAN: 87M w/ pmhx of ascending cholangitis, Alzheimers disease, HTN, aspiration PNA, s /p G tube placement presented from [facility] with shortness of breath found to be sepsis 2/2 acute cholangitis now s/p cholecystoscopy tube. ID #sepsis 2/2 acute cholangitis, R/O aspiration pneumonia -Percutaneous drainage 06/29 -lactate normalized -Per ID, IV Ertapenem -BCx +ESBL, staph coag neg; U/A neg -ID consult ordered NEURO #Dementia -Pt able to communicate at baseline per - Now persistently somnolent though off sedation -Hold home meds for now -cont to monitor mental status PULM #Acute Hypoxic Respiratory Failure -Intubated, off sedation -Duonebs, Lasix 40 given x1 in ED -Was on IV hydration for JUAN J on CKD, now stopped. CVP monitoring CV #HTN hx -Was hypotensive on pressors now off pressors -HD stable, no pressors needed at this time -Cont Metoprolol, hold Norvasc -Cont to monitor pressures, maintain MAP >65 GI #Ascending cholangitis s/p cholecystostomy tube placement (06/29/18) -Abd U/S showed distended GB, dilated CBD, dilated intrahepatic ducts -CTAP showed distended GB -GI consult ordered; will need to discuss need for ERCP with family for further intervention -s/p cholecystostomy tube; monitor drain output -Per ID, IV Meropenem -GI following -S/p gastrpgraphin for PEG- shown to be functional Tube feeds- Osmolite 1.2 restarted 07/02/18 - Fentanyl pushes for pain RENAL #Hypernatremia -LR- stopped -repeat BMP -NG tube free water flushes HEME #Thrombocytopenia -may be reactive, hold DVT ppx for now -trend CBC Prophylaxis -SQH held for thrombocytopenia -Protonix 40 QD FEN -LR d/cd; - free water flushes via PEG tube -replete lytes PRN -NPO Lines -LIJ (06/28) -davila -ET (06/28) -cholecystostomy tube (06/29) -G tube Code status: DNR Visit type - Emergency Visit Emergency Visit: Yes ED Registration Date: 06/28/18 Care time: The patient presented to the Emergency Department on the above date and was hospitalized for further evaluation of their emergent condition. - New Patient This patient is new to me today: No - Critical Care Critical Care patient: Yes Total Critical Care Time (in minutes): 36 Critical Care Statement: The care of this patient involved high complexity decision making to prevent further life threatening deterioration of the patient 's condition and/or to evaluate & treat vital organ system(s) failure or risk of failure. - Discharge Referral Referred to [facility] No
--- NOTE | 2018-07-02 09:52 | PN ---
Teaching Attending Note Name of Resident: Moen Cooper ATTENDING PHYSICIAN STATEMENT I saw and evaluated the patient. I reviewed the resident's note and discussed the case with the resident. I agree with the resident's findings and plan as documented. SUBJECTIVE: SUBJECTIVE: Patient seen and examined in the ICU. Remains intubated. Sedation has been stopped bur remains poorly arousable and not able to follow commands. No pressors. Cholecystostomy tube still draining purulent bilious drainage. OBJECTIVE: Intake & Output 06/29/18 06/30/18 07/01/18 07/02/18 23:59 23:59 23:59 23:59 Intake Total 994 2077 3200 1200 Output Total 660 581 341 6506 Balance 334 1117 2300 50 Weight 161 lb 6.054 oz 161 lb 164 lb 3.91 oz 164 lb 3.91 oz Last Vital Signs Temp Pulse Resp BP Pulse Ox 100.1 F H 63 14 137/94 100 07/02/18 09:41 07/02/18 09:41 07/02/18 09:41 07/02/18 09:41 07/01/18 21:13 Active Medications Chlorhexidine Gluconate (Hibiclens For Decolonization -) 1 applic TP HS [facility] Last Admin: 07/01/18 21:52 Dose: 1 applic Meropenem 500 mg/ Dextrose 100 mls @ 200 mls/hr IVPB BID [facility] Last Admin: 07/01/18 21:54 Dose: 200 mls/hr Metoprolol Tartrate (Lopressor -) 100 mg GT BID [facility] Last Admin: 07/02/18 09:20 Dose: 100 mg Mirtazapine (Remeron -) 15 mg GT HS [facility] Last Admin: 07/01/18 21:54 Dose: 15 mg Mupirocin (Bactroban Ointment (For Decolonization) -) 1 applic NS BID [facility] Stop: 07/04/18 09:59 Last Admin: 07/02/18 09:23 Dose: 1 applic Pantoprazole Sodium (Protonix Iv) 40 mg IVPUSH DAILY [facility] Last Admin: 07/02/18 09:21 Dose: 40 mg Gen: intubated, poorly responsive off sedation Heart: RRR Lung: decreased breath sounds at the bases, scattered rhonchi Abd: soft, +cholecystostomy tube Ext: no edema Laboratory Results - last 24 hr 07/01/18 07/02/18 07/02/18 18:30 05:30 05:30 WBC 5.8 RBC 3.22 L Hgb 10.6 L Hct 32.1 L MCV 99.8 H MCH 32.9 MCHC 32.9 RDW 14.7 Plt Count 93 L MPV 10.1 Absolute Neuts (auto) 4.5 Neutrophils % 76.5 Lymphocytes % 13.3 Monocytes % 8.4 Eosinophils % 1.6 Basophils % 0.2 Nucleated RBC % 0 Sodium 147 H Potassium 4.0 Chloride 118 H Carbon Dioxide 23 Anion Gap 6 L BUN 54 H Creatinine 1.5 H Creat Clearance w eGFR 44.17 Random Glucose 80 Calcium 7.4 L Phosphorus 2.4 L Magnesium 2.7 H Total Bilirubin 2.8 H AST 55 H ALT 68 H Alkaline Phosphatase 97 Total Protein 5.4 L Albumin 1.9 L Vitamin B12 721 Serum Folate 32 H ASSESSMENT AND PLAN: Acute Hypoxic Respiratory Failure Acute Cholangitis s/p Cholecystostomy tube placement 06/29 Severe Sepsis Acute Kidney Injury Lactic Acidosis Elevated LFTs likely Ischemic Injury Thrombocytopenia r/o DIC HTN Dementia - Monitor off sedation - Hold IVF - IV antibiotics - f/u final cultures - monitor urine output, creatinine - SBTs as tolerated as mental status improves - Start enteral feeds - DVT/GI prophylaxis - Requires ICU monitoring Dr Corral Critical care time spent in reviewing chart, evaluating patient and formulating plan 36 min
[2018-07-02] MEDS: MEROPENEM 500 MG in DEXTROSE 5%-WATER 100 ML IVPB SCH (11:30)
--- NOTE | 2018-07-02 12:36 | PN ---
Physical Exam: SUBJECTIVE: Patient seen and examined at bedside. Remains intubated. Minimally responsive off sedation OBJECTIVE: Vital Signs Period Temp Pulse Resp BP Sys/Hernandez Pulse Ox Last 24 Hr 98.0 F-100.2 F 55-67 14-20 135-158/52-94 100-100 GENERAL: The patient is intubated and sedated LUNGS: Breath sounds equal, clear to auscultation bilaterally, no wheezes, no crackles, no accessory muscle use. HEART: Regular rate and rhythm, S1, S2 without murmur, rub or gallop. ABDOMEN: Soft, nondistended, normoactive bowel sounds. Patient winces and withdraws briskly upon palpation of his cholecystostomy site. EXTREMITIES: 2+ pulses, warm, well-perfused, no edema. NEUROLOGICAL: Cranial nerves II through X grossly intact. Normal speech, gait not observed. SKIN: Warm, dry, normal turgor, no rashes or lesions noted Laboratory Results - last 24 hr 07/01/18 07/02/18 07/02/18 18:30 05:30 05:30 WBC 5.8 RBC 3.22 L Hgb 10.6 L Hct 32.1 L MCV 99.8 H MCH 32.9 MCHC 32.9 RDW 14.7 Plt Count 93 L MPV 10.1 Absolute Neuts (auto) 4.5 Neutrophils % 76.5 Lymphocytes % 13.3 Monocytes % 8.4 Eosinophils % 1.6 Basophils % 0.2 Nucleated RBC % 0 Sodium 147 H Potassium 4.0 Chloride 118 H Carbon Dioxide 23 Anion Gap 6 L BUN 54 H Creatinine 1.5 H Creat Clearance w eGFR 44.17 Random Glucose 80 Calcium 7.4 L Phosphorus 2.4 L Magnesium 2.7 H Total Bilirubin 2.8 H AST 55 H ALT 68 H Alkaline Phosphatase 97 Total Protein 5.4 L Albumin 1.9 L Vitamin B12 721 Serum Folate 32 H Active Medications Generic Name Dose Route Start Last Admin Trade Name Freq PRN Reason Stop Dose Admin Chlorhexidine Gluconate 1 applic 06/29/18 22:00 07/01/18 21:52 Hibiclens For Decolonization - TP 1 applic HS HOANG Administration Fentanyl 25 mcg 07/02/18 09:55 Sublimaze Injection - IVPUSH 07/03/18 09:59 Q4H PRN PAIN LEVEL 7 - 10 Meropenem 500 mg/ Dextrose 100 mls @ 200 mls/hr 07/01/18 14:30 07/02/18 11:30 IVPB 200 mls/hr BID HOANG Administration Metoprolol Tartrate 100 mg 06/29/18 10:00 07/02/18 09:20 Lopressor - GT 100 mg BID HOANG Administration Mirtazapine 15 mg 06/29/18 22:00 07/01/18 21:54 Remeron - GT 15 mg HS HOANG Administration Mupirocin 1 applic 06/29/18 10:00 07/02/18 09:23 Bactroban Ointment (For Decolonization) - NS 07/04/18 09:59 1 applic BID HOANG Administration Pantoprazole Sodium 40 mg 06/29/18 10:00 07/02/18 09:21 Protonix Iv IVPUSH 40 mg DAILY HOANG Administration ASSESSMENT/PLAN: 87 y/o M w/ PMHx of ascending cholangitis, HTN, aspiration PNA, s/p PEG placement, presented from [facility] w/ SOB found to be septic 2/2 recurrent acute cholangitis, admitted to ICU, intubated and sedated. #transaminitis, direct and total hyperbilirubinemia likely 2/2 ascending cholangitis -Sx consulted, not a surgical candidate per prior hospitalizations for this issue -cholecystostomy tube placed by IR and draining -Zosyn changed to meropenem by ID (day 1 merrem, day 5 of total ABx) -ID consulted #Dementia/AMS -off sedation, continues to be minimally responsive -per family, patient able to speak and interact minimally at baseline -holding sedation, will monitor neuro status #acute hypoxic respiratory failure and was intubated -vent settings as per ICU team -monitor blood gases -wean from vent as per ICU team; not indicated at this time 2/2 AMS #HTN -holding antihypertensives while septic/ sedated #FEN -no fluids indicated at this time -monitor and replete electrolytes PRN -NPO while intubated #prophy -DVT: SCDs -GI: IV protonix 40 daily #dispo -cont to monitor in ICU -DNR, intubation OK Visit type - Emergency Visit Emergency Visit: Yes ED Registration Date: 06/28/18 Care time: The patient presented to the Emergency Department on the above date and was hospitalized for further evaluation of their emergent condition. - New Patient This patient is new to me today: Yes Date on this admission: 07/02/18 - Critical Care Critical Care patient: No - Discharge Referral Referred to [facility] Med P.C.: No
--- NOTE | 2018-07-02 19:45 | PN ---
Progress Note, Physician History of Present Illness: Pt seen and examined. Events noted. Labs/imaging results reviewed. He is currently intubated, febrile to 100.7. - Current Medication List Current Medications: Active Medications Chlorhexidine Gluconate (Hibiclens For Decolonization -) 1 applic TP HS [facility] Last Admin: 07/01/18 21:52 Dose: 1 applic Fentanyl (Sublimaze Injection -) 25 mcg IVPUSH Q4H PRN PRN Reason: PAIN LEVEL 7 - 10 Stop: 07/03/18 09:59 Meropenem 500 mg/ Dextrose 100 mls @ 200 mls/hr IVPB BID [facility] Last Admin: 07/02/18 11:30 Dose: 200 mls/hr Metoprolol Tartrate (Lopressor -) 100 mg GT BID [facility] Last Admin: 07/02/18 09:20 Dose: 100 mg Mirtazapine (Remeron -) 15 mg GT HS [facility] Last Admin: 07/01/18 21:54 Dose: 15 mg Mupirocin (Bactroban Ointment (For Decolonization) -) 1 applic NS BID [facility] Stop: 07/04/18 09:59 Last Admin: 07/02/18 09:23 Dose: 1 applic Pantoprazole Sodium (Protonix Iv) 40 mg IVPUSH DAILY [facility] Last Admin: 07/02/18 09:21 Dose: 40 mg - Objective Vital Signs: Vital Signs Temperature 100.7 F H 07/02/18 17:39 Pulse Rate 58 L 07/02/18 17:39 Respiratory Rate 14 07/02/18 18:41 Blood Pressure 132/51 L 07/02/18 17:39 O2 Sat by Pulse Oximetry (%) 100 07/02/18 17:06 Constitutional: Yes: No Distress Cardiovascular: Yes: Regular Rate and Rhythm Respiratory: Yes: Mechanically Ventilated Gastrointestinal: Yes: Normal Bowel Sounds, Soft, Other (RUQ drain with bilious fluid) ...Rectal Exam: Yes: Other (rectal tube with loose stool) Genitourinary: Yes: Bar Present Extremities: Yes: WNL Integumentary: Yes: WNL Neurological: Yes: Lethargy Labs: CBC, BMP 07/02/18 05:30 07/02/18 05:30 INR, PTT INR 1.62 (0.83-1.09) H 06/29/18 05:30 Microbiology 06/30/18 10:45 Blood - Peripheral Venous Blood Culture - Preliminary NO GROWTH OBTAINED AFTER 48 HOURS, INCUBATION TO CONTINUE FOR 3 DAYS. 06/30/18 10:12 Blood - Peripheral Venous Blood Culture - Preliminary NO GROWTH OBTAINED AFTER 48 HOURS, INCUBATION TO CONTINUE FOR 3 DAYS. 06/28/18 07:50 Blood - Peripheral Venous Blood Culture - Final Staph Hominis Sub Sp Hominis 06/29/18 10:45 Colon Fluid Salmonella/Shigella Culture - Final NO GROWTH OF SALMONELLA OR SHIGELLA SPECIES OBTAINED 06/29/18 10:45 Colon Fluid Campylobacter Culture - Final NO GROWTH OF CAMPYLOBACTER SPECIES OBTAINED 06/29/18 10:45 Colon Fluid Yersinia Culture - Final NO GROWTH OF YERSINIA SPECIES OBTAINED 06/29/18 10:45 Colon Fluid Vibrio Culture - Final NO GROWTH OF VIBRIO SPECIES OBTAINED 06/29/18 10:45 Colon Fluid Escherichia coli 0157 Culture - Final NO GROWTH OF E COLI 0157 OBTAINED 06/28/18 07:50 Blood - Peripheral Venous Blood Culture - Final Escherichia Coli 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 - ....Imaging Cat Scan: Report Reviewed Problem List - Problems (1) JUAN J (acute kidney injury) Code(s): N17.9 - ACUTE KIDNEY FAILURE, UNSPECIFIED (2) Acute cholangitis due to calculus of bile duct with obstruction Code(s): K80.33 - CALCULUS OF BILE DUCT W ACUTE CHOLANGITIS WITH OBSTRUCTION (3) Sepsis Code(s): A41.9 - SEPSIS, UNSPECIFIED ORGANISM Qualifiers: Sepsis type: sepsis due to unspecified organism Qualified Code(s): A41.9 - Sepsis, unspecified organism (4) Transaminitis Code(s): R74.0 - NONSPEC ELEV OF LEVELS OF TRANSAMNS & LACTIC ACID DEHYDRGNSE (5) Dementia with behavioral disturbance Code(s): F03.91 - UNSPECIFIED DEMENTIA WITH BEHAVIORAL DISTURBANCE Qualifiers: Dementia type: unspecified type Qualified Code(s): F03.91 - Unspecified dementia with behavioral disturbance Assessment/Plan Sepsis Acute hypoxemic respiratory failure/on MV ESBL + gram negative bacteremia Acute cholangitis s/p cholecystostomy JUAN J thrombocytopenia Dementia HTN -- febrile, wbc now normal, remains intubated -- Antibiotics switched to Meropenem, will adjust dose -- Continue monitor temps -- repeat blood cultures neg, stool cultures neg -- If diarrhea persists send stool CDT -- Renal function improving continue monitor cbc,bmp cc time: 40 min
[2018-07-02] MEDS: MEROPENEM 1 GM in DEXTROSE 5%-WATER 100 ML IVPB SCH (20:21)
--- NOTE | 2018-07-02 20:36 | PN ---
Teaching Attending Note Name of Resident: Darinel Fleming ATTENDING PHYSICIAN STATEMENT I saw and evaluated the patient. I reviewed the resident's note and discussed the case with the resident. I agree with the resident's findings and plan as documented. SUBJECTIVE: Intubated. Poorly responsive off sedation, Unable to participate in medical interview OBJECTIVE: Febrile - T 100.7, Hemodynamically Stable. Poorly responsive off sedation. Failed weaning trial. Last Vital Signs Temp Pulse Resp BP Pulse Ox 100.7 F H 58 L 14 132/51 L 100 07/02/18 17:39 07/02/18 17:39 07/02/18 18:41 07/02/18 17:39 07/02/18 17:06 Heart - S1, S2, RRR Lungs - Intubated/Ventilated. Good air entry bilaterally Abdomen - Soft. Cholecystostomy tube draining bilious fluid. PEG in situ Extremities - no calf swelling. Neuro - poorly responsive off sedation, grimaces to noxious stimulus, HALEY Laboratory Results - last 24 hr 07/02/18 07/02/18 05:30 05:30 WBC 5.8 RBC 3.22 L Hgb 10.6 L Hct 32.1 L MCV 99.8 H MCH 32.9 MCHC 32.9 RDW 14.7 Plt Count 93 L MPV 10.1 Absolute Neuts (auto) 4.5 Neutrophils % 76.5 Lymphocytes % 13.3 Monocytes % 8.4 Eosinophils % 1.6 Basophils % 0.2 Nucleated RBC % 0 Sodium 147 H Potassium 4.0 Chloride 118 H Carbon Dioxide 23 Anion Gap 6 L BUN 54 H Creatinine 1.5 H Creat Clearance w eGFR 44.17 Random Glucose 80 Calcium 7.4 L Phosphorus 2.4 L Magnesium 2.7 H Total Bilirubin 2.8 H AST 55 H ALT 68 H Alkaline Phosphatase 97 Total Protein 5.4 L Albumin 1.9 L Current Medications Generic Name Dose Route Start Last Admin Trade Name Freq PRN Reason Stop Dose Admin Chlorhexidine Gluconate 1 applic 06/29/18 22:00 07/01/18 21:52 Hibiclens For Decolonization - TP 1 applic HS HOANG Administration Fentanyl 25 mcg 07/02/18 09:55 Sublimaze Injection - IVPUSH 07/03/18 09:59 Q4H PRN PAIN LEVEL 7 - 10 Meropenem 1 gm/ Dextrose 100 mls @ 200 mls/hr 07/02/18 20:00 07/02/18 20:21 IVPB 200 mls/hr BID@0800,2000 HOANG Administration As Directed Metoprolol Tartrate 100 mg 06/29/18 10:00 07/02/18 09:20 Lopressor - GT 100 mg BID HOANG Administration Mirtazapine 15 mg 06/29/18 22:00 07/01/18 21:54 Remeron - GT 15 mg HS HOANG Administration Mupirocin 1 applic 06/29/18 10:00 07/02/18 09:23 Bactroban Ointment (For Decolonization) - NS 07/04/18 09:59 1 applic BID HOANG Administration Pantoprazole Sodium 40 mg 06/29/18 10:00 07/02/18 09:21 Protonix Iv IVPUSH 40 mg DAILY HOANG Administration ASSESSMENT AND PLAN: 87 year old male from [facility] with history of cholecystitis s/p cholecystectomy with choledocholithiasis s/p ERCP with stone extraction, prior cholecystostomy tube (dislodged 10/2017 and never replaced), Dementia, s/p PEG, HTN, presented with SOB, requiring treatment for severe sepsis and intubation for respiratory distress. 1. Acute Hypoxic Respiratory Failure and Severe Sepsis secondary to recurrent Acute Cholangitis with ESBL Bacteremia Intubated/Ventilated - failed weaning trial again today US/CT - shows thickend GB and biliary dilatation with possible CBD stones s/p percutaneous cholecystostomy by IR 06/29 Fluid Cx ESBL, Pseudomonas Blood Cx positive for EColi (ESBL), Staph hominis - repeat Blood Cx negative. Abx Ertapenem/Vanco in ED initially transitioned to Zosyn, now switched to Meropenem. Lactic Acidosis resolved however he is still febrile - some diarrhea reported, if persistent, will send stool for Cx and Cdiff. ID following. Enteral feeds via PEG. 2. JUAN J secondary to sepsis - Creat improving - continue IV hydration. 3. Elevated LFTs - secondary to cholangitis with likely obstruction - improving TBil 3.3 --->2.8, AST 146 ---> 55, ALT 198 --->68 GI to evaluate for ERCP when more stable. s/p percutaneous cholecystostomy by IR 06/29 4. HTN - Continued on Metoprolol. Norvasc held. 5. Dementia - normally on Zyprexa, Remeron, Klonopin - will hold given mental status currently. 6. Thrombocytopenia, likely reactive. Will hold Heparin for platelets < 100. 7. Hypernatremia - improving - secondary to dehydration - continue free water via PEG 8. Macrocytic Anemia - H/H 9.9/29.7/MCV 99.4 - B12 level 721, Folate 35 DVT Px - Heparin SQ held for Thrombocytopenia GI Px - PPI DNR
[2018-07-02] MEDS: MIRTAZAPINE 15 MG TABLET (FP) GT SCH (22:37)
[2018-07-02] MEDS: CHLORHEXIDINE GLUCONATE 4% CLEANSER FOR DECOLONIZATION TP SCH (22:37)
[2018-07-03 06:51] LABS: BASO % 0.3 % (0-2.0); EOS % 2.4 % (0-4.5); HEMATOCRIT 30.1 % (35.4-49); LYMPH % 15.2 % (8-40); MCH 33.2 pg (25.7-33.7); MCHC 33.2 g/dl (32.0-35.9); MEAN PLT VOLUME 10.5 fl (7.5-11.1); MONO % 9.2 % (3.8-10.2); NEUT % 72.9 % (42.8-82.8); PLATELET COUNT 89 K/MM3 (134-434); RBC 3.01 M/mm3 (4.00-5.60); RDW 14.7 % (11.9-15.9)
[2018-07-03 07:15] LABS: ALBUMIN 1.9 g/dl (3.4-5.0); ALK PHOS 100 U/L (45-117); ANION GAP 7 MMOL/L (8-16); BILIRUBIN,TOTAL 2.6 mg/dL (0.2-1); BLOOD UREA NITROGEN 47 mg/dL (7-18); CHLORIDE 118 mmol/L (98-107); CO2 24 mmol/L (21-32); CREATININE 1.3 mg/dL (0.55-1.3); GLUCOSE,RANDOM 77 mg/dL (74-106); MAGNESIUM 2.2 mg/dL (1.8-2.4); PHOSPHOROUS 2.5 mg/dL (2.5-4.9); SGOT/AST 46 U/L (15-37); SGPT/ALT 53 U/L (13-61); SODIUM 150 mmol/L (136-145)
--- NOTE | 2018-07-03 08:31 | PN ---
Progress Note, Physician History of Present Illness: lethargic off sedation, responding to tactile stimuli, attempts to open his eyes , retracts to pain. cpap trial today - Current Medication List Current Medications: Active Medications Chlorhexidine Gluconate (Hibiclens For Decolonization -) 1 applic TP HS [facility] Last Admin: 07/02/18 22:37 Dose: 1 applic Fentanyl (Sublimaze Injection -) 25 mcg IVPUSH Q4H PRN PRN Reason: PAIN LEVEL 7 - 10 Stop: 07/03/18 09:59 Meropenem 1 gm/ Dextrose 100 mls @ 200 mls/hr IVPB BID@0800,2000 [facility] Last Admin: 07/02/18 20:21 Dose: 200 mls/hr Metoprolol Tartrate (Lopressor -) 100 mg GT BID [facility] Last Admin: 07/02/18 22:37 Dose: 100 mg Mirtazapine (Remeron -) 15 mg GT HS [facility] Last Admin: 07/02/18 22:37 Dose: 15 mg Mupirocin (Bactroban Ointment (For Decolonization) -) 1 applic NS BID [facility] Stop: 07/04/18 09:59 Last Admin: 07/02/18 22:37 Dose: 1 applic Pantoprazole Sodium (Protonix Iv) 40 mg IVPUSH DAILY [facility] Last Admin: 07/02/18 09:21 Dose: 40 mg - Objective Vital Signs: Vital Signs Temperature 99.1 F 07/03/18 06:00 Pulse Rate 55 L 07/03/18 06:00 Respiratory Rate 14 07/03/18 06:36 Blood Pressure 156/59 L 07/03/18 06:00 O2 Sat by Pulse Oximetry (%) 100 07/02/18 20:33 Constitutional: Yes: Calm Eyes: Yes: PERRL Neck: Yes: Trachea Midline Cardiovascular: Yes: Regular Rate and Rhythm Respiratory: Yes: Intubated Gastrointestinal: Yes: Normal Bowel Sounds, Soft, Tenderness (in RUQ to palpation, cholostomy tube in place draining dark greed liquid) ...Rectal Exam: Yes: Other (rectal tube in place d/t loose bowel movements) Genitourinary: Yes: Davila Present Edema: No Peripheral Pulses WNL: Yes Wound/Incision: Yes: Clean/Dry Labs: CBC, BMP 07/03/18 05:30 07/03/18 05:30 INR, PTT INR 1.62 (0.83-1.09) H 06/29/18 05:30 Assessment/Plan 87M w/ pmhx of ascending cholangitis, Alzheimers disease, HTN, hx of aspiration PNA, with PEG tube, presented from [facility] with shortness of breath found to have sepsis due acute cholangitis now s/p percutaneous cholestomy undergoing CPAP trails for extubation. Neuro #Alzheimer's dx - mental status improving off sedation, awaiting pt to be more alert and awake, currently following come commands and responding to tactile stimuli -Hold home meds for now ID #sepsis from cholangitis - chronic management with percutaneous drainage, recently replaced 06/29 - day 7 of antibiotics -abx per ID, IV Ertapenem -on contact insolation for hx of BCx +ESBL -Dr. Chadwick consulted Pulm #Acute Hypoxic Respiratory Failure pre-op -Intubated, off sedation, CPAP trials - did well today, repeat trial tomorrow -Duonebs prn CV #hx of HTN -Cont Metoprolol, hold Norvasc -maintain MAP >65 GI #Ascending cholangitis s/p cholecystostomy tube placement (06/29/18) -s/p cholecystostomy tube; monitor drain output -GI following -S/p gastrpgraphin for PEG- shown to be functional Tube feeds- Osmolite 1.2 restarted 07/02/18, with 50cc free water for hypernateremia with 250cc q6hr flushes directly into PEG for hypernatremia - Fentanyl pushes for pain Renal #Hypernatremia -NG tube free water flushes, 40cc on pump with 250cc boluses as well Hematology #Thrombocytopenia - stable -may be reactive, hold DVT ppx for now -trend CBC Prophylaxis -SQH held for thrombocytopenia, SCD's in place for VTE -Protonix 40 QD Lines -[facility] (06/28) - removed today -davila for I&O -ET (06/28) -cholecystostomy tube (06/29) to remain at dc Code status: DNR
--- NOTE | 2018-07-03 09:58 | PN ---
Teaching Attending Note Name of Resident: Kim Rios ATTENDING PHYSICIAN STATEMENT I saw and evaluated the patient. I reviewed the resident's note and discussed the case with the resident. I agree with the resident's findings and plan as documented. SUBJECTIVE: Patient seen and examined in the ICU. Remains intubated. More responsive today. Intermittently able to able to follow simple commands. No pressors. Cholecystostomy tube still draining purulent bilious drainage. OBJECTIVE: Intake & Output 06/30/18 07/01/18 07/02/18 07/03/18 23:59 23:59 23:59 23:59 Intake Total 2077 3200 2200 250 Output Total 420 141 3787 620 Balance 1117 2300 225 -370 Weight 161 lb 164 lb 3.91 oz 164 lb 3.91 oz 164 lb 14.492 oz Last Vital Signs Temp Pulse Resp BP Pulse Ox 99.1 F 52 L 15 166/64 100 07/03/18 06:00 07/03/18 08:00 07/03/18 09:05 07/03/18 08:00 07/03/18 09:00 Active Medications Chlorhexidine Gluconate (Hibiclens For Decolonization -) 1 applic TP HS [facility] Last Admin: 07/02/18 22:37 Dose: 1 applic Fentanyl (Sublimaze Injection -) 25 mcg IVPUSH Q4H PRN PRN Reason: PAIN LEVEL 7 - 10 Stop: 07/03/18 09:59 Meropenem 1 gm/ Dextrose 100 mls @ 200 mls/hr IVPB BID@0800,2000 [facility] Last Admin: 07/02/18 20:21 Dose: 200 mls/hr Metoprolol Tartrate (Lopressor -) 100 mg GT BID [facility] Last Admin: 07/02/18 22:37 Dose: 100 mg Mirtazapine (Remeron -) 15 mg GT HS [facility] Last Admin: 07/02/18 22:37 Dose: 15 mg Mupirocin (Bactroban Ointment (For Decolonization) -) 1 applic NS BID [facility] Stop: 07/04/18 09:59 Last Admin: 07/02/18 22:37 Dose: 1 applic Pantoprazole Sodium (Protonix Iv) 40 mg IVPUSH DAILY [facility] Last Admin: 07/02/18 09:21 Dose: 40 mg Gen: intubated, more alert today Heart: RRR Lung: decreased breath sounds at the bases, scattered rhonchi Abd: soft, +cholecystostomy tube Ext: no edema Laboratory Results - last 24 hr 07/03/18 07/03/18 05:30 05:30 WBC 7.0 RBC 3.01 L Hgb 10.0 L Hct 30.1 L MCV 100.0 H MCH 33.2 MCHC 33.2 RDW 14.7 Plt Count 89 L MPV 10.5 Absolute Neuts (auto) 5.1 Neutrophils % 72.9 Lymphocytes % 15.2 Monocytes % 9.2 Eosinophils % 2.4 Basophils % 0.3 Nucleated RBC % 0 Sodium 150 H Potassium 4.0 Chloride 118 H Carbon Dioxide 24 Anion Gap 7 L BUN 47 H Creatinine 1.3 Creat Clearance w eGFR 52.10 Random Glucose 77 Calcium 7.0 L Phosphorus 2.5 Magnesium 2.2 Total Bilirubin 2.6 H AST 46 H ALT 53 Alkaline Phosphatase 100 Total Protein 5.0 L Albumin 1.9 L ASSESSMENT AND PLAN: Acute Hypoxic Respiratory Failure Acute Cholangitis s/p Cholecystostomy tube placement 06/29 Severe Sepsis Acute Kidney Injury Lactic Acidosis Elevated LFTs likely Ischemic Injury Thrombocytopenia r/o DIC HTN Dementia - Wean trials as tolerated - Monitor off sedation - Continue to hold IVF - IV antibiotics - monitor urine output, creatinine - Enteral feeds - DVT/GI prophylaxis - Requires ICU monitoring Dr Corral Critical care time spent in reviewing chart, evaluating patient and formulating plan 36 min
[2018-07-03] MEDS: METOPROLOL TARTRATE 50 MG TABLET (FP) GT SCH ×2 (10:38→21:25)
[2018-07-03] MEDS: MEROPENEM 1 GM in DEXTROSE 5%-WATER 100 ML IVPB SCH ×2 (10:38→21:24)
[2018-07-03] MEDS: MUPIROCIN 2% TOPICAL OINTMENT FOR DECOLONIZATION NS SCH ×2 (10:41→21:25)
[2018-07-03 11:15] LABS: ANISOCYTOSIS 0; MACROCYTOSIS 0; PLATELET ESTIMATE DECREASED
[2018-07-03] MEDS: PANTOPRAZOLE SODIUM 40 MG VIAL IVPUSH SCH (12:03)
--- NOTE | 2018-07-03 17:11 | PN ---
Progress Note, Physician History of Present Illness: Pt remains intubated, lethargic. Tmax 99.4F, currently afebrile. - Current Medication List Current Medications: Active Medications Chlorhexidine Gluconate (Hibiclens For Decolonization -) 1 applic TP HS [facility] Last Admin: 07/02/18 22:37 Dose: 1 applic Meropenem 1 gm/ Dextrose 100 mls @ 200 mls/hr IVPB BID@0800,2000 [facility] Last Admin: 07/03/18 10:38 Dose: 200 mls/hr Metoprolol Tartrate (Lopressor -) 100 mg GT BID [facility] Last Admin: 07/03/18 10:38 Dose: 100 mg Mirtazapine (Remeron -) 15 mg GT HS [facility] Last Admin: 07/02/18 22:37 Dose: 15 mg Mupirocin (Bactroban Ointment (For Decolonization) -) 1 applic NS BID [facility] Stop: 07/04/18 09:59 Last Admin: 07/03/18 10:41 Dose: 1 applic Pantoprazole Sodium (Protonix Iv) 40 mg IVPUSH DAILY [facility] Last Admin: 07/03/18 12:03 Dose: 40 mg - Objective Vital Signs: Vital Signs Temperature 98.4 F 07/03/18 14:00 Pulse Rate 55 L 07/03/18 16:00 Respiratory Rate 17 07/03/18 16:15 Blood Pressure 160/56 L 07/03/18 16:00 O2 Sat by Pulse Oximetry (%) 100 07/03/18 09:00 Constitutional: Yes: No Distress Cardiovascular: Yes: Bradycardia Respiratory: Yes: Mechanically Ventilated Gastrointestinal: Yes: Soft, Hyperactive Bowel Sounds, Other (Abd drain with bilious fluid) ...Rectal Exam: Yes: Other Genitourinary: Yes: Bar Present Integumentary: Yes: WNL Neurological: Yes: Lethargy Labs: CBC, BMP 07/03/18 05:30 07/03/18 05:30 INR, PTT INR 1.62 (0.83-1.09) H 06/29/18 05:30 Microbiology 06/30/18 10:45 Blood - Peripheral Venous Blood Culture - Preliminary NO GROWTH OBTAINED AFTER 72 HOURS, INCUBATION TO CONTINUE FOR 2 DAYS. 06/30/18 10:12 Blood - Peripheral Venous Blood Culture - Preliminary NO GROWTH OBTAINED AFTER 72 HOURS, INCUBATION TO CONTINUE FOR 2 DAYS. 06/28/18 07:50 Blood - Peripheral Venous Blood Culture - Final Staph Hominis Sub Sp Hominis 06/29/18 10:45 Colon Fluid Salmonella/Shigella Culture - Final NO GROWTH OF SALMONELLA OR SHIGELLA SPECIES OBTAINED 06/29/18 10:45 Colon Fluid Campylobacter Culture - Final NO GROWTH OF CAMPYLOBACTER SPECIES OBTAINED 06/29/18 10:45 Colon Fluid Yersinia Culture - Final NO GROWTH OF YERSINIA SPECIES OBTAINED 06/29/18 10:45 Colon Fluid Vibrio Culture - Final NO GROWTH OF VIBRIO SPECIES OBTAINED 06/29/18 10:45 Colon Fluid Escherichia coli 0157 Culture - Final NO GROWTH OF E COLI 0157 OBTAINED 06/28/18 07:50 Blood - Peripheral Venous Blood Culture - Final Escherichia Coli 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 Problem List - Problems (1) JUAN J (acute kidney injury) Code(s): N17.9 - ACUTE KIDNEY FAILURE, UNSPECIFIED (2) Acute cholangitis due to calculus of bile duct with obstruction Code(s): K80.33 - CALCULUS OF BILE DUCT W ACUTE CHOLANGITIS WITH OBSTRUCTION (3) Sepsis Code(s): A41.9 - SEPSIS, UNSPECIFIED ORGANISM Qualifiers: Qualified Code(s): A41.9 - Sepsis, unspecified organism (4) Transaminitis Code(s): R74.0 - NONSPEC ELEV OF LEVELS OF TRANSAMNS & LACTIC ACID DEHYDRGNSE (5) Dementia with behavioral disturbance Code(s): F03.91 - UNSPECIFIED DEMENTIA WITH BEHAVIORAL DISTURBANCE Qualifiers: Qualified Code(s): F03.91 - Unspecified dementia with behavioral disturbance Assessment/Plan Sepsis Acute hypoxemic respiratory failure/on MV ESBL + gram negative bacteremia Acute cholangitis s/p cholecystostomy JUAN J improving thrombocytopenia Dementia HTN -- currently afebrile, continue monitor temps -- continue Meropenem -- Renal function improving continue monitor remains critically ill cc time: 40 min
--- NOTE | 2018-07-03 17:12 | PN ---
Progress Note (short form) - Note Progress Note: SUBJECTIVE: Intubated. More responsive off sedation but unable to follow commands or to participate in medical interview OBJECTIVE: Feevr resolved, Hemodynamically Stable. Some agitation off sedation, not following commands. Failed weaning trial. Last Vital Signs Temp Pulse Resp BP Pulse Ox 98.4 F 55 L 17 160/56 L 100 07/03/18 14:00 07/03/18 16:00 07/03/18 16:15 07/03/18 16:00 07/03/18 09:00 Heart - S1, S2, RRR Lungs - Intubated/Ventilated. Good air entry bilaterally Abdomen - Soft. Tender RUQ. Cholecystostomy tube draining bilious fluid. PEG in situ Extremities - no calf swelling. Neuro - more responsive off sedation, grimaces to noxious stimulus, slightly restless, not following commands, HALEY Laboratory Results - last 24 hr 07/03/18 07/03/18 05:30 05:30 WBC 7.0 RBC 3.01 L Hgb 10.0 L Hct 30.1 L MCV 100.0 H MCH 33.2 MCHC 33.2 RDW 14.7 Plt Count 89 L MPV 10.5 Absolute Neuts (auto) 5.1 Neutrophils % 72.9 Neutrophils % (Manual) 72.3 Band Neutrophils % 0.0 Lymphocytes % 15.2 Lymphocytes % (Manual) 13.9 D Monocytes % 9.2 Monocytes % (Manual) 7 Eosinophils % 2.4 Eosinophils % (Manual) 3.9 D Basophils % 0.3 Basophils % (Manual) 0.0 Myelocytes % (Man) 0 Promyelocytes % (Man) 0 Blast Cells % (Manual) 0 Nucleated RBC % 0 Metamyelocytes 0 D Hypochromia 0 Platelet Estimate Decreased Polychromasia 0 Poikilocytosis 0 Anisocytosis 0 Microcytosis 0 Macrocytosis 0 Sodium 150 H Potassium 4.0 Chloride 118 H Carbon Dioxide 24 Anion Gap 7 L BUN 47 H Creatinine 1.3 Creat Clearance w eGFR 52.10 Random Glucose 77 Calcium 7.0 L Phosphorus 2.5 Magnesium 2.2 Total Bilirubin 2.6 H AST 46 H ALT 53 Alkaline Phosphatase 100 Total Protein 5.0 L Albumin 1.9 L Current Medications Generic Name Dose Route Start Last Admin Trade Name Freq PRN Reason Stop Dose Admin Chlorhexidine Gluconate 1 applic 06/29/18 22:00 07/02/18 22:37 Hibiclens For Decolonization - TP 1 applic HS HOANG Administration Meropenem 1 gm/ Dextrose 100 mls @ 200 mls/hr 07/02/18 20:00 07/03/18 10:38 IVPB 200 mls/hr BID@0800,2000 HOANG Administration As Directed Metoprolol Tartrate 100 mg 06/29/18 10:00 07/03/18 10:38 Lopressor - GT 100 mg BID HOANG Administration Mirtazapine 15 mg 06/29/18 22:00 07/02/18 22:37 Remeron - GT 15 mg HS HOANG Administration Mupirocin 1 applic 06/29/18 10:00 07/03/18 10:41 Bactroban Ointment (For Decolonization) - NS 07/04/18 09:59 1 applic BID HOANG Administration Pantoprazole Sodium 40 mg 06/29/18 10:00 07/03/18 12:03 Protonix Iv IVPUSH 40 mg DAILY HOANG Administration ASSESSMENT AND PLAN: 87 year old male from [facility] with history of cholecystitis s/p cholecystectomy with choledocholithiasis s/p ERCP with stone extraction, prior cholecystostomy tube (dislodged 10/2017 and never replaced), Dementia, s/p PEG, HTN, presented with SOB, requiring treatment for severe sepsis and intubation for respiratory distress. 1. Acute Hypoxic Respiratory Failure and Severe Sepsis secondary to recurrent Acute Cholangitis with ESBL Bacteremia Intubated/Ventilated - failed weaning trial again today. Improved Mental Status today off sedation US/CT - shows thickend GB and biliary dilatation with possible CBD stones s/p percutaneous cholecystostomy by IR 06/29 Fluid Cx ESBL, Pseudomonas Blood Cx positive for EColi (ESBL), Staph hominis - repeat Blood Cx negative. Abx Ertapenem/Vanco in ED initially transitioned to Zosyn, now switched to Meropenem. Lactic Acidosis resolved however he was still febrile up to yesterday - some diarrhea was reported yesterday, if persistent, will send stool for Cx and Cdiff. ID following. Enteral feeds via PEG. 2. JUAN J secondary to sepsis - resolving - continue IV hydration. 3. Elevated LFTs - secondary to cholangitis with likely obstruction - improving TBil 3.3 --->2.6, AST 146 ---> 46, ALT 198 --->53 GI to evaluate for ERCP when more stable. s/p percutaneous cholecystostomy by IR 06/29 4. HTN - Continued on Metoprolol. Norvasc held. 5. Dementia - normally on Zyprexa, Remeron, Klonopin - will hold given mental status currently. 6. Thrombocytopenia, likely reactive. Will hold Heparin for platelets < 100. 7. Hypernatremia - secondary to dehydration - was apparently not getting free water via PEG - Will resume along with water flushes during feeds and monitor Na level. 8. Macrocytic Anemia - H/H 02/01/MCV 100 - B12 level 721, Folate 35 9. Hypophosphatemia - resolved s/p repletion. DVT Px - Heparin SQ held for Thrombocytopenia GI Px - PPI DNR Visit type - Emergency Visit Emergency Visit: Yes ED Registration Date: 06/28/18 Care time: The patient presented to the Emergency Department on the above date and was hospitalized for further evaluation of their emergent condition. - New Patient This patient is new to me today: No - Critical Care Critical Care patient: No - Discharge Referral Referred to [facility] No
[2018-07-03] MEDS ORDERED: PT OWN MED DRAWER 7, Y5N ONE (21:24)
[2018-07-03] MEDS: CHLORHEXIDINE GLUCONATE 4% CLEANSER FOR DECOLONIZATION TP SCH (21:25)
[2018-07-03] MEDS: MIRTAZAPINE 15 MG TABLET (FP) GT SCH (21:26)
[2018-07-04 06:30] LABS: BASO % 0.3 % (0-2.0); EOS % 3.9 % (0-4.5); HEMATOCRIT 28.5 % (35.4-49); HEMOGLOBIN 9.6 GM/dL (11.7-16.9); LYMPH % 18.6 % (8-40); MCH 33.8 pg (25.7-33.7); MCHC 33.7 g/dl (32.0-35.9); MEAN CELL VOLUME 100.3 fl (80-96); MEAN PLT VOLUME 10.6 fl (7.5-11.1); MONO % 10.2 % (3.8-10.2); PLATELET COUNT 95 K/MM3 (134-434); RBC 2.84 M/mm3 (4.00-5.60); RDW 14.3 % (11.9-15.9); WHITE BLOOD COUNT 5.7 K/mm3 (4.0-10.0)
[2018-07-04 07:28] LABS: ALBUMIN 1.8 g/dl (3.4-5.0); ALK PHOS 133 U/L (45-117); ANION GAP 6 MMOL/L (8-16); BILIRUBIN,TOTAL 2.6 mg/dL (0.2-1); BLOOD UREA NITROGEN 38 mg/dL (7-18); CHLORIDE 114 mmol/L (98-107); CO2 25 mmol/L (21-32); CREATININE 1.2 mg/dL (0.55-1.3); GLUCOSE,RANDOM 125 mg/dL (74-106); MAGNESIUM 2.2 mg/dL (1.8-2.4); PHOSPHOROUS 2.1 mg/dL (2.5-4.9); POTASSIUM 3.8 mmol/L (3.5-5.1); SGOT/AST 36 U/L (15-37); SGPT/ALT 43 U/L (13-61); SODIUM 145 mmol/L (136-145); TOT PROT 4.9 g/dl (6.4-8.2)
[2018-07-04 07:39] LABS: CALCIUM 6.9 mg/dL (8.5-10.1)
--- NOTE | 2018-07-04 07:47 | PN ---
Physical Exam: SUBJECTIVE: Patient seen and examined at bedside. No acute events overnight. Pt extubated this AM and satting well. More alert and awake today. OBJECTIVE: Vital Signs Period Temp Pulse Resp BP Sys/Hernandez Pulse Ox Last 24 Hr 98.4 F-99.4 F 52-66 14-20 117-166/47-64 99-100 GENERAL: Extubated. HEENT: AT/NC. EOMI. Moist mucus membranes. NECK: Normal range of motion, supple without lymphadenopathy, JVD, or masses. LUNGS: Decreased breath sounds HEART: RRR. Normal S1, S2. ABDOMEN: Abd mildly distended. G tube in place, c/d/i, no secretions, erythema or signs of infection noted. +cholecystostomy tube, draining cloudy dark green fluid. Rectal tube in place. EXTREMITIES: B/l peripheral edema noted. NEUROLOGICAL: Demented, but opens eyes to name SKIN: Warm, dry, normal turgor, no rashes or lesions noted. CBC, BMP 07/04/18 05:30 07/04/18 05:30 Active Medications Chlorhexidine Gluconate (Hibiclens For Decolonization -) 1 applic TP HS [facility] Last Admin: 07/03/18 21:25 Dose: 1 applic Clonazepam (Klonopin -) 0.25 mg GT BID [facility] Heparin Sodium (Porcine) (Heparin -) 5,000 unit SQ TID HOANG Meropenem 1 gm/ Dextrose 100 mls @ 200 mls/hr IVPB BID@0800,2000 [facility] Last Admin: 07/04/18 09:00 Dose: 200 mls/hr Metoprolol Tartrate (Lopressor -) 100 mg GT BID [facility] Last Admin: 07/04/18 09:23 Dose: 100 mg Mirtazapine (Remeron -) 15 mg GT HS [facility] Last Admin: 07/03/18 21:26 Dose: 15 mg Olanzapine (Zyprexa -) 2.5 mg PO BID HOANG Pantoprazole Sodium (Protonix Iv) 40 mg IVPUSH DAILY [facility] Last Admin: 07/04/18 09:24 Dose: 40 mg CONSULT: GI- Dr. Beltran Surg- Dr. Johnson ID- Dr. Chadwick IR- Dr. Joe IMAGING: * CXR: Slight increase in central markings. Discrete infiltrate not seen. Since 10/2017, there is no change of an adverse nature. * CTAP: Distended GB * Abd U/S: distended GB, dilated CBD, dilated intrahepatic ducts ASSESSMENT/PLAN: 87M w/ pmhx of ascending cholangitis, Alzheimers disease, HTN, hx of aspiration PNA, with PEG tube, presented from [facility] with shortness of breath found to have sepsis due acute cholangitis now s/p percutaneous cholecystomy undergoing CPAP trails for extubation. Neuro #Alzheimer's dx -Pt more awake and alert; currently following some commands and responding to tactile stimuli -Reinstate home meds: Zyprexa, Klonopin ID #Sepsis 2/ Cholangitis - chronic management with percutaneous drainage, recently replaced 06/29 -Abx per ID, IV Ertapenem (Day 7); await further recs -on contact insolation for hx of BCx +ESBL Pulm #Acute Hypoxic Respiratory Failure pre-op -Extubated. Satting well at 100% on ventimask. -Duonebs PRN CV #HTN -Cont Metoprolol, hold Norvasc -maintain MAP >65 GI #Ascending cholangitis s/p cholecystostomy tube placement (06/29/18) -s/p cholecystostomy tube; monitor drain output -GI following -S/p gastrografin for PEG- shown to be functional -Tube feeds- Osmolite 1.2 restarted 07/02/18, with 50cc free water for hypernatremia with 100cc/hr flushes directly into PEG for hypernatremia -Fentanyl pushes for pain -Repeat BCx now neg x96h Renal #Hypernatremia; Improved 145 -NG tube free water flushes 100cc/hr Hematology #Thrombocytopenia - stable -may be reactive; will resume SQH/SCDs -trend CBC Prophylaxis -restart SQH -Protonix 40 QD Lines -davila for I&O -cholecystostomy tube (06/29) to remain at dc -rectal tube Dispo -DNR -cont to monitor in ICU Visit type - Emergency Visit Emergency Visit: Yes ED Registration Date: 06/28/18 Care time: The patient presented to the Emergency Department on the above date and was hospitalized for further evaluation of their emergent condition. - New Patient This patient is new to me today: No - Critical Care Critical Care patient: Yes Total Critical Care Time (in minutes): 35 Critical Care Statement: The care of this patient involved high complexity decision making to prevent further life threatening deterioration of the patient 's condition and/or to evaluate & treat vital organ system(s) failure or risk of failure.
[2018-07-04] MEDS ORDERED: POTASSIUM PHOSPHATE 30 MM in SODIUM CHLORIDE 250 ML IVPB ONE (08:08)
[2018-07-04] MEDS ORDERED: CALCIUM GLUCONATE 10% - 1,000 MG/10 ML VIAL IVPB ONE (09:00)
[2018-07-04] MEDS: MEROPENEM 1 GM in DEXTROSE 5%-WATER 100 ML IVPB SCH ×2 (09:00→21:28)
[2018-07-04] MEDS ORDERED: NAPH,MB-DB/K PH,MBDB POWDER PACKET PO ONE (09:00)
[2018-07-04] MEDS ORDERED: PT OWN MED DRAWER 7, Y5N ONE ×4 (09:04→21:23)
[2018-07-04] MEDS: METOPROLOL TARTRATE 50 MG TABLET (FP) GT SCH ×2 (09:23→21:33)
[2018-07-04] MEDS: PANTOPRAZOLE SODIUM 40 MG VIAL IVPUSH SCH (09:24)
--- NOTE | 2018-07-04 11:46 | PN ---
Physical Exam: SUBJECTIVE: Patient seen and examined at bedside in ICU. Extubated on venti mask , improved alertness. OBJECTIVE: Vital Signs Period Temp Pulse Resp BP Sys/Hernandez Pulse Ox Last 24 Hr 98.4 F-99.4 F 54-66 14-24 117-164/47-62 99-100 GENERAL: Successfully extubated, increasingly responsive HEENT: NC/AT, PERRLA, MMM NECK: Trachea midline, supple LUNGS: no adventitious sounds appreciated over ventilator HEART: RRR no m/r/g ABDOMEN: soft, mild distention, g-tube c/d/i, cholecystostomy tube c/d/i draining bilious fluid EXTREMITIES: 2+ pulses, warm, well-perfused, b/l peripheral edema NEUROLOGICAL: unable to assess PSYCH: unable to assess SKIN: Warm, dry, normal turgor, no rashes or lesions noted Laboratory Results - last 24 hr 07/03/18 07/04/18 07/04/18 05:30 05:30 05:30 WBC 5.7 RBC 2.84 L Hgb 9.6 L Hct 28.5 L MCV 100.3 H MCH 33.8 H MCHC 33.7 RDW 14.3 Plt Count 95 L MPV 10.6 Absolute Neuts (auto) 3.8 Neutrophils % 67.0 Neutrophils % (Manual) 72.3 Band Neutrophils % 0.0 Lymphocytes % 18.6 D Lymphocytes % (Manual) 13.9 D Monocytes % 10.2 Monocytes % (Manual) 7 Eosinophils % 3.9 Eosinophils % (Manual) 3.9 D Basophils % 0.3 Basophils % (Manual) 0.0 Myelocytes % (Man) 0 Promyelocytes % (Man) 0 Blast Cells % (Manual) 0 Nucleated RBC % 0 0 Metamyelocytes 0 D Hypochromia 0 Platelet Estimate Decreased Polychromasia 0 Poikilocytosis 0 Anisocytosis 0 Microcytosis 0 Macrocytosis 0 Sodium 145 Potassium 3.8 Chloride 114 H Carbon Dioxide 25 Anion Gap 6 L BUN 38 H Creatinine 1.2 Creat Clearance w eGFR 57.14 Random Glucose 125 H Calcium 6.9 L* Phosphorus 2.1 L Magnesium 2.2 Total Bilirubin 2.6 H AST 36 ALT 43 Alkaline Phosphatase 133 H Total Protein 4.9 L Albumin 1.8 L Active Medications Generic Name Dose Route Start Last Admin Trade Name Freq PRN Reason Stop Dose Admin Chlorhexidine Gluconate 1 applic 06/29/18 22:00 07/03/18 21:25 Hibiclens For Decolonization - TP 1 applic HS HOANG Administration Heparin Sodium (Porcine) 5,000 unit 07/04/18 14:00 Heparin - SQ TID HOANG Meropenem 1 gm/ Dextrose 100 mls @ 200 mls/hr 07/02/18 20:00 07/04/18 09:00 IVPB 200 mls/hr BID@0800,2000 HOANG Administration As Directed Metoprolol Tartrate 100 mg 06/29/18 10:00 07/04/18 09:23 Lopressor - GT 100 mg BID HOANG Administration Mirtazapine 15 mg 06/29/18 22:00 07/03/18 21:26 Remeron - GT 15 mg HS HOANG Administration Pantoprazole Sodium 40 mg 06/29/18 10:00 07/04/18 09:24 Protonix Iv IVPUSH 40 mg DAILY HOANG Administration ASSESSMENT/PLAN: 87 y/o M w/ PMHx of ascending cholangitis s/p cholecystostomy placed and removed last October, AD, HTN, aspiration PNA, s/p PEG placement, presented from [facility] w/ SOB found to be septic 2/2 recurrent acute cholangitis, admitted to ICU, intubated and sedated. #GI -transaminitis, direct and total hyperbilirubinemia likely 2/2 ascending cholangitis -Sx consulted, not a surgical candidate per prior hospitalizations for this issue -abd US: distended GB, dilated CBD, dilated intrahepatic ducts -CT a/p w/o contrast: distended GB -GI following, recommended MRCP but this is deferred at this time -cholecystostomy tube placed by IR and draining -f/u hepatobiliary labs -for consideration of ERCP #ID -septic 2/2 ascending cholangitis -on presentation febrile, tachycardic, WBC 16.8 --> 14.4 -previously biliary cultures grew multiple MDR organisms including Acinetobacter -BCx 06/28 growing ESBL E coli and coag- Staph spp -BCx 06/30 NGTD -cont Meropenem -cont IVF -ID following #neuro -off sedation, improving mentation -haloperidol/benadryl/ativan as needed to control aggression -cont olanzapine and mirtazapine #pulm -presented in acute hypoxic respiratory failure and was intubated -now successfully extubated #CV -hemodynamically stable -no indication for pressors at this time -hold anti-hypertensives #PPx -DVT: heparin sq -GI: IV PTX #FEN -no IVF -monitor and replete electrolytes -Osmolite TF #code -DNR only #dispo -cont to monitor in ICU -may be stable for transfer to med/surg as per ICU team Visit type - Emergency Visit Emergency Visit: No - New Patient This patient is new to me today: No - Critical Care Critical Care patient: Yes Total Critical Care Time (in minutes): 40 Critical Care Statement: The care of this patient involved high complexity decision making to prevent further life threatening deterioration of the patient 's condition and/or to evaluate & treat vital organ system(s) failure or risk of failure.
--- NOTE | 2018-07-04 12:08 | PN ---
Progress Note, Physician History of Present Illness: patient extubated looks comfortable on face mask awake,responsive low grade fever t tube in place draining well - Current Medication List Current Medications: Active Medications Chlorhexidine Gluconate (Hibiclens For Decolonization -) 1 applic TP HS [facility] Last Admin: 07/03/18 21:25 Dose: 1 applic Heparin Sodium (Porcine) (Heparin -) 5,000 unit SQ TID [facility] Meropenem 1 gm/ Dextrose 100 mls @ 200 mls/hr IVPB BID@0800,2000 [facility] Last Admin: 07/04/18 09:00 Dose: 200 mls/hr Metoprolol Tartrate (Lopressor -) 100 mg GT BID [facility] Last Admin: 07/04/18 09:23 Dose: 100 mg Mirtazapine (Remeron -) 15 mg GT HS [facility] Last Admin: 07/03/18 21:26 Dose: 15 mg Pantoprazole Sodium (Protonix Iv) 40 mg IVPUSH DAILY [facility] Last Admin: 07/04/18 09:24 Dose: 40 mg - Objective Vital Signs: Vital Signs Temperature 99 F 07/04/18 06:00 Pulse Rate 62 07/04/18 08:25 Respiratory Rate 24 H 07/04/18 10:15 Blood Pressure 147/56 L 07/04/18 08:25 O2 Sat by Pulse Oximetry (%) 100 07/04/18 08:25 Constitutional: Yes: No Distress, Calm HENT: Yes: Atraumatic Cardiovascular: Yes: S1, S2 Respiratory: Yes: Poor Air Entry, Rhonchi, Other (on face mask) Gastrointestinal: Yes: Normal Bowel Sounds, Soft, Other (t-tube in place) Musculoskeletal: Yes: WNL Extremities: Yes: WNL Neurological: Yes: Alert Psychiatric: Yes: Alert Labs: CBC, BMP 07/04/18 05:30 07/04/18 05:30 INR, PTT INR 1.62 (0.83-1.09) H 06/29/18 05:30 - ....Imaging Chest X-ray: Report Reviewed, Image Reviewed Assessment/Plan Acute Hypoxic Respiratory Failure Acute Cholangitis s/p Cholecystostomy tube placement 06/29 Severe Sepsis Acute Kidney Injury Lactic Acidosis Elevated LFTs likely Ischemic Injury Thrombocytopenia r/o DIC HTN Dementia plan continue meropenam post extubation doing well resp support monitor for fevers rest as per icu close watch repeat blood cx showing no growth now cc 38 min
--- NOTE | 2018-07-04 12:08 | PN ---
Teaching Attending Note Name of Resident: Shai Sexton ATTENDING PHYSICIAN STATEMENT I saw and evaluated the patient. I reviewed the resident's note and discussed the case with the resident. I agree with the resident's findings and plan as documented. SUBJECTIVE: Extubated. Awake, alert but not able to participate in interview. OBJECTIVE: Fever resolved, Hemodynamically Stable. Successfully weaned and extubated 07/04/18 to oxygen mask. Appears disoriented and slightly agitated. Last Vital Signs Temp Pulse Resp BP Pulse Ox 99 F 62 24 H 147/56 L 100 07/04/18 06:00 07/04/18 08:25 07/04/18 10:15 07/04/18 08:25 07/04/18 08:25 HEENT - Extubated to face mask Heart - S1, S2, RRR Lungs - Good air entry bilaterally Abdomen - Soft. Tender RUQ. Cholecystostomy tube draining bilious fluid. PEG in situ Extremities - no calf swelling. Neuro - Slightly restless, following commands, moving all extremities, HALEY Laboratory Results - last 24 hr 07/04/18 07/04/18 05:30 05:30 WBC 5.7 RBC 2.84 L Hgb 9.6 L Hct 28.5 L MCV 100.3 H MCH 33.8 H MCHC 33.7 RDW 14.3 Plt Count 95 L MPV 10.6 Absolute Neuts (auto) 3.8 Neutrophils % 67.0 Lymphocytes % 18.6 D Monocytes % 10.2 Eosinophils % 3.9 Basophils % 0.3 Nucleated RBC % 0 Sodium 145 Potassium 3.8 Chloride 114 H Carbon Dioxide 25 Anion Gap 6 L BUN 38 H Creatinine 1.2 Creat Clearance w eGFR 57.14 Random Glucose 125 H Calcium 6.9 L* Phosphorus 2.1 L Magnesium 2.2 Total Bilirubin 2.6 H AST 36 ALT 43 Alkaline Phosphatase 133 H Total Protein 4.9 L Albumin 1.8 L Current Medications Generic Name Dose Route Start Last Admin Trade Name Freq PRN Reason Stop Dose Admin Chlorhexidine Gluconate 1 applic 06/29/18 22:00 07/03/18 21:25 Hibiclens For Decolonization - TP 1 applic HS HOANG Administration Heparin Sodium (Porcine) 5,000 unit 07/04/18 14:00 Heparin - SQ TID HOANG Meropenem 1 gm/ Dextrose 100 mls @ 200 mls/hr 07/02/18 20:00 07/04/18 09:00 IVPB 200 mls/hr BID@0800,2000 HOANG Administration As Directed Metoprolol Tartrate 100 mg 06/29/18 10:00 07/04/18 09:23 Lopressor - GT 100 mg BID HOANG Administration Mirtazapine 15 mg 06/29/18 22:00 07/03/18 21:26 Remeron - GT 15 mg HS HOANG Administration Pantoprazole Sodium 40 mg 06/29/18 10:00 07/04/18 09:24 Protonix Iv IVPUSH 40 mg DAILY HOANG Administration ASSESSMENT AND PLAN: 87 year old male from [facility] with history of cholecystitis s/p cholecystectomy with choledocholithiasis s/p ERCP with stone extraction, prior cholecystostomy tube (dislodged 10/2017 and never replaced), Dementia, s/p PEG, HTN, presented with SOB, requiring treatment for severe sepsis and intubation for respiratory distress. 1. Acute Hypoxic Respiratory Failure and Severe Sepsis secondary to recurrent Acute Cholangitis with ESBL Bacteremia Extubated 07/04/18 US/CT - shows thickend GB and biliary dilatation with possible CBD stones s/p percutaneous cholecystostomy by IR 06/29 Fluid Cx ESBL, Pseudomonas Blood Cx positive for EColi (ESBL), Staph hominis - repeat Blood Cx negative. Abx Ertapenem/Vanco in ED initially transitioned to Zosyn, now switched to Meropenem. Lactic Acidosis resolved however he was still febrile up to yesterday - some diarrhea was reported yesterday, if persistent, will send stool for Cx and Cdiff. ID following. Enteral feeds via PEG. 2. JUAN J secondary to sepsis - resolving - continue IV hydration. 3. Elevated LFTs - secondary to cholangitis with likely obstruction - improving TBil 3.3 --->2.6, AST 146 ---> 36, ALT 198 --->43 GI to evaluate for ERCP when more stable. s/p percutaneous cholecystostomy by IR 06/29 4. HTN - Continued on Metoprolol. Norvasc held. 5. Dementia - normally on Zyprexa, Remeron, Klonopin - will resume now off sedation and slightly agitated. 6. Thrombocytopenia, likely reactive. Heparin SQ continued by ICU team 7. Hypernatremia - secondary to dehydration - improving with free water with feeds. 8. Macrocytic Anemia - H/H 11.7/34.1/MCV 100.9 - B12 level 721, Folate 35 9. Hypophosphatemia - repleted. DVT Px - Heparin SQ as per ICU team GI Px - PPI DNR
--- NOTE | 2018-07-04 12:32 | PN ---
Teaching Attending Note Name of Resident: Zonia Cotton ATTENDING PHYSICIAN STATEMENT I saw and evaluated the patient. I reviewed the resident's note and discussed the case with the resident. I agree with the resident's findings and plan as documented. SUBJECTIVE: Pt seen and examined in the ICU. Remained intubated, arousable off sedation. Good cough reflex upon suctioning. Tolerated CPAP/PS trials with good RSBI and subsequently extubated during rounds. OBJECTIVE: Vital Signs Period Temp Pulse Resp BP Sys/Hernandez Pulse Ox Last 24 Hr 98.4 F-99.4 F 54-66 14-24 117-164/47-58 99-100 Intake & Output 07/01/18 07/02/18 07/03/18 07/04/18 23:59 23:59 23:59 23:59 Intake Total 3200 2200 1680 1740 Output Total 900 1975 1930 600 Balance 2300 225 -250 1140 Weight 74.5 kg 74.5 kg 74.8 kg 74.6 kg Gen: extubated Heart: RRR Lung: decreased breath sounds at the bases Abd: soft, nontender Ext: no edema CBC, BMP 07/04/18 05:30 07/04/18 05:30 Active Medications Chlorhexidine Gluconate (Hibiclens For Decolonization -) 1 applic TP HS [facility] Last Admin: 07/03/18 21:25 Dose: 1 applic Heparin Sodium (Porcine) (Heparin -) 5,000 unit SQ TID [facility] Meropenem 1 gm/ Dextrose 100 mls @ 200 mls/hr IVPB BID@0800,2000 [facility] Last Admin: 07/04/18 09:00 Dose: 200 mls/hr Metoprolol Tartrate (Lopressor -) 100 mg GT BID [facility] Last Admin: 07/04/18 09:23 Dose: 100 mg Mirtazapine (Remeron -) 15 mg GT HS [facility] Last Admin: 07/03/18 21:26 Dose: 15 mg Non-Formulary Medication (Clonazepam [Klonopin]) 0.25 mg GT BID [facility] Olanzapine (Zyprexa -) 2.5 mg PO BID HOANG Pantoprazole Sodium (Protonix Iv) 40 mg IVPUSH DAILY [facility] Last Admin: 07/04/18 09:24 Dose: 40 mg ASSESSMENT AND PLAN: Acute Hypoxic Respiratory Failure Acute Cholangitis s/p Cholecystostomy tube placement 06/29 Severe Sepsis resolving Acute Kidney Injury Lactic Acidosis Elevated LFTs likely Ischemic Injury Thrombocytopenia HTN Dementia - pt extubated - continue antibiotics - monitor urine output, creatinine - taper Fio2 to keep Spo2 >90% - aspiration precautions - DVT/GI prophylaxis - continue ICU monitoring critical care time spent in reviewing chart, evaluating patient and formulating plan 35 min
--- NOTE | 2018-07-04 13:36 | PN ---
Progress Note (short form) - Note Progress Note: Patient seen and examined Labs reviewed Extubated and on 35% ventimask Is somewhat tachypneic Unable to answer interview questions Vital Signs Temp 99 F 07/04/18 06:00 Pulse 62 07/04/18 08:25 Resp 24 H 07/04/18 10:15 BP 147/56 L 07/04/18 08:25 Pulse Ox 100 07/04/18 08:25 NAD Sclerae mildly icteric Abdomen soft, ttp diffusely. R cholecystostomy in place draining clear bile, PEG in place, c/d/i, feeding CBC, BMP 07/04/18 05:30 07/04/18 05:30 Hepatic Panel Total Bilirubin 2.6 mg/dL (0.2-1) H 07/04/18 05:30 Direct Bilirubin 3.6 mg/dL (0.0-0.2) H 06/29/18 02:30 AST 36 U/L (15-37) 07/04/18 05:30 ALT 43 U/L (13-61) 07/04/18 05:30 Alkaline Phosphatase 133 U/L (45-117) H 07/04/18 05:30 Albumin 1.8 g/dl (3.4-5.0) L 07/04/18 05:30 AP slightly up, but rest of LFTs stable/downtrending Continue IV antibiotics per ID Rise in alk phos can be from drug vs cholestasis of sepsis Trend LFTs daily
[2018-07-04] MEDS: HEPARIN NA (PORCINE) 5,000 UNITS/ML 1ML VIAL SQ SCH ×2 (14:33→21:34)
[2018-07-04] MEDS: clonazePAM 0.5 MG TABLET GT SCH ×2 (14:34→21:34)
[2018-07-04] MEDS: OLANZapine 2.5 MG TABLET PO SCH ×2 (15:00→23:00)
[2018-07-04] MEDS: MIRTAZAPINE 15 MG TABLET (FP) GT SCH (21:35)
[2018-07-04] MEDS: CHLORHEXIDINE GLUCONATE 4% CLEANSER FOR DECOLONIZATION TP SCH (23:00)
[2018-07-05] MEDS ORDERED: ACETAMINOPHEN 1000 MG/100 ML VIAL (NON FORMULARY) IVPB ONE (02:08)
[2018-07-05] MEDS ORDERED: ACETAMINOPHEN 325 MG TABLET (FP) PO PRN (02:08)
[2018-07-05] MEDS: HEPARIN NA (PORCINE) 5,000 UNITS/ML 1ML VIAL SQ SCH ×3 (05:59→22:46)
[2018-07-05 06:10] LABS: BASO % 0.3 % (0-2.0); EOS % 4.7 % (0-4.5); HEMATOCRIT 29.8 % (35.4-49); HEMOGLOBIN 10.1 GM/dL (11.7-16.9); LYMPH % 22.1 % (8-40); MCH 33.4 pg (25.7-33.7); MEAN CELL VOLUME 98.3 fl (80-96); MEAN PLT VOLUME 10.1 fl (7.5-11.1); NEUT % 62.9 % (42.8-82.8); PLATELET COUNT 119 K/MM3 (134-434); RBC 3.03 M/mm3 (4.00-5.60); RDW 13.6 % (11.9-15.9); WHITE BLOOD COUNT 6.6 K/mm3 (4.0-10.0)
[2018-07-05 06:37] LABS: ALBUMIN 1.9 g/dl (3.4-5.0); ALK PHOS 157 U/L (45-117); ANION GAP 4 MMOL/L (8-16); BILIRUBIN,TOTAL 1.6 mg/dL (0.2-1); BLOOD UREA NITROGEN 28 mg/dL (7-18); CHLORIDE 109 mmol/L (98-107); CO2 28 mmol/L (21-32); CREATININE 0.9 mg/dL (0.55-1.3); GLUCOSE,RANDOM 120 mg/dL (74-106); MAGNESIUM 2.1 mg/dL (1.8-2.4); PHOSPHOROUS 2.4 mg/dL (2.5-4.9); POTASSIUM 3.6 mmol/L (3.5-5.1); SGOT/AST 31 U/L (15-37); SGPT/ALT 43 U/L (13-61); SODIUM 141 mmol/L (136-145); TOT PROT 5.2 g/dl (6.4-8.2)
--- NOTE | 2018-07-05 07:42 | PN ---
Physical Exam: SUBJECTIVE: Patient seen and examined at bedside. No acute events overnight. This morning pt is more awake and alert and now conversive expressing that he wants to sleep. Denies any pain. OBJECTIVE: Vital Signs Period Temp Pulse Resp BP Sys/Hernandez Pulse Ox Last 24 Hr 97.6 F-99 F 60-71 14-24 142-168/53-112 97-100 GENERAL: Extubated. HEENT: AT/NC. EOMI. Moist mucus membranes. NECK: Normal range of motion, supple without lymphadenopathy, JVD, or masses. LUNGS: Decreased breath sounds HEART: RRR. Normal S1, S2. ABDOMEN: Abd mildly distended. G tube in place, c/d/i, no secretions, erythema or signs of infection noted. +cholecystostomy tube, draining cloudy dark green fluid. Rectal tube in place. EXTREMITIES: B/l peripheral edema noted. NEUROLOGICAL: Demented, but opens eyes to name SKIN: Warm, dry, normal turgor, no rashes or lesions noted. CBC, BMP 07/05/18 05:30 07/05/18 05:30 Active Medications Acetaminophen (Tylenol -) 650 mg PO Q6H PRN PRN Reason: PAIN LEVEL 6-10 Chlorhexidine Gluconate (Hibiclens For Decolonization -) 1 applic TP HS [facility] Last Admin: 07/04/18 23:00 Dose: 1 applic Clonazepam (Klonopin -) 0.25 mg GT BID [facility] Last Admin: 07/04/18 21:34 Dose: 0.25 mg Heparin Sodium (Porcine) (Heparin -) 5,000 unit SQ TID [facility] Last Admin: 07/05/18 05:59 Dose: 5,000 unit Meropenem 1 gm/ Dextrose 100 mls @ 200 mls/hr IVPB BID@0800,2000 [facility] Last Admin: 07/04/18 21:28 Dose: 200 mls/hr Metoprolol Tartrate (Lopressor -) 100 mg GT BID [facility] Last Admin: 07/04/18 21:33 Dose: 100 mg Mirtazapine (Remeron -) 15 mg GT HS [facility] Last Admin: 07/04/18 21:35 Dose: 15 mg Olanzapine (Zyprexa -) 2.5 mg PO BID [facility] Last Admin: 07/04/18 23:00 Dose: 2.5 mg Pantoprazole Sodium (Protonix Iv) 40 mg IVPUSH DAILY [facility] Last Admin: 07/04/18 09:24 Dose: 40 mg CONSULT: GI- Dr. Beltran Surg- Dr. Johnson ID- Dr. Chadwick IR- Dr. Joe IMAGING: * CXR: Slight increase in central markings. Discrete infiltrate not seen. Since 10/2017, there is no change of an adverse nature. * CTAP: Distended GB * Abd U/S: distended GB, dilated CBD, dilated intrahepatic ducts ASSESSMENT/PLAN: 87M w/ pmhx of ascending cholangitis, Alzheimers disease, HTN, hx of aspiration PNA, with PEG tube, presented from [facility] with shortness of breath found to have sepsis due acute cholangitis now s/p percutaneous cholecystomy undergoing CPAP trails for extubation. Neuro #Alzheimer's dx -Pt more awake and alert; currently following some commands and responding to tactile stimuli -Reinstate home meds: Zyprexa 2.5 BID, Klonopin 0.25 GT BID ID #Severe sepsis 2/2 Cholangitis, +ESBL bacteremia chronic management with percutaneous drainage, recently replaced 06/29 -Abx per ID, IV Ertapenem (Day 7); await further recs -on contact insolation for hx of BCx +ESBL -Per GI, may need ERCP in future Pulm #Acute Hypoxic Respiratory Failure pre-op -Extubated. Satting well at 100% on ventimask. -Duonebs PRN CV #HTN -Cont Metoprolol 100 GT BID, hold Norvasc -maintain MAP >65 GI #Ascending cholangitis s/p cholecystostomy tube placement (06/29/18) -s/p cholecystostomy tube; monitor drain output -GI following -S/p gastrografin for PEG- shown to be functional -Tube feeds- Osmolite 1.2 restarted 07/02/18, with 50cc free water for hypernatremia with 100cc/hr flushes directly into PEG for hypernatremia -Fentanyl pushes for pain -Repeat BCx now neg x96h Renal #Hypernatremia; Improved 141 -NG tube free water flushes 100cc/hr Hematology #Thrombocytopenia - improving. -may be reactive; will resume SQH/SCDs -trend CBC Prophylaxis -SQH -d/c Protonix Lines -davila for I&O -cholecystostomy tube (06/29) to remain at dc -rectal tube Dispo -DNR -cont to monitor in ICU Visit type - Emergency Visit Emergency Visit: Yes ED Registration Date: 06/28/18 Care time: The patient presented to the Emergency Department on the above date and was hospitalized for further evaluation of their emergent condition. - New Patient This patient is new to me today: No - Critical Care Critical Care patient: Yes Total Critical Care Time (in minutes): 35 Critical Care Statement: The care of this patient involved high complexity decision making to prevent further life threatening deterioration of the patient 's condition and/or to evaluate & treat vital organ system(s) failure or risk of failure.
[2018-07-05] MEDS ORDERED: POTASSIUM PHOSPHATE 30 MM in SODIUM CHLORIDE 250 ML IVPB ONE (09:00)
[2018-07-05] MEDS: MEROPENEM 1 GM in DEXTROSE 5%-WATER 100 ML IVPB SCH ×2 (09:08→20:46)
[2018-07-05] MEDS: clonazePAM 0.5 MG TABLET GT SCH ×2 (09:10→22:47)
[2018-07-05] MEDS: OLANZapine 2.5 MG TABLET PO SCH ×2 (09:11→22:48)
[2018-07-05] MEDS: METOPROLOL TARTRATE 50 MG TABLET (FP) GT SCH ×2 (09:11→22:47)
[2018-07-05] MEDS: PANTOPRAZOLE SODIUM 40 MG VIAL IVPUSH SCH (09:18)
--- NOTE | 2018-07-05 09:30 | PN ---
Teaching Attending Note Name of Resident: Shai Sexton ATTENDING PHYSICIAN STATEMENT I saw and evaluated the patient. I reviewed the resident's note and discussed the case with the resident. I agree with the resident's findings and plan as documented. SUBJECTIVE:asymptomatic. denies CP, SOB, fever, chills, N/V/C/D OBJECTIVE: Last Vital Signs Temp Pulse Resp BP Pulse Ox 99 F 66 20 143/60 99 07/05/18 06:00 07/05/18 08:00 07/05/18 08:21 07/05/18 08:00 07/05/18 08:21 Intake & Output 07/02/18 07/03/18 07/04/18 07/05/18 23:59 23:59 23:59 23:59 Intake Total 0 1680 4040 1911 Output Total 19740 1900 1160 Balance 225 -250 2140 751 Weight 164 lb 3.91 oz 164 lb 14.492 oz 164 lb 7.437 oz 165 lb 5.547 oz General NAD, lethargic, CV S1 S2 RRR Lungs CTA anteriorly, poor inspiratory effort Abdomen soft NT/ND +cholcystostomy tube with bile +PEG Extremities no pedal edema ASSESSMENT AND PLAN: 87yo M from [facility] with PNH cholangitis with cholecystomy tube which was dislodged and then never replaced in October 2017 , hx of aspiration PNA, PEG, HTN and dementia sent to hospital due to SOB noted by staff and found to be in severe sepsis due to suspected PNA and cholangitis 1. severe sepsis due to cholangitis and ESBL bacteremia- afebrile, leukocytosis resolved. +cholecystostomy tube on 06/29 with bile draining. repeat BCx negative. on Meropenem. clinically improved. LFT trending down. bili trending down. will need ERCP. GI and surgery and IR on board. 2. Acute hypoxic respiratory failure- s/p intubated and extubated 07/04/18. saturating well on 2NC. titrate down oxygen supplementation as tolerated. 3. Lactic acidosis- due to combination of sepsis and hypoxia. resolved 4. JUAN J- due to sepsis. will hydrate.avoid nephrotoxic agents. monitor UOP. 5. Transaminitis- due to sepsis. resolved 6. Hypophosphatemia- Neutraphos 7. Thrombocytopneia- due to sepsis. now improved. will d/c PPI as this can also worsen this 8. Hypernatremia- due to dehydration. resolved. cont free water flushes 9. dementia- appears to be at baseline per old notes. will confirm with 10. HTN- resume home medciations. 11. DVT ppx- hep sq 12. DNR. stable for transfer to med-surg The care of this patient involved high complexity decision making to prevent further life threatening deterioration of the patient's condition and/or to evaluate & treat vital organ system(s) failure or risk of failure. 38 mins
--- NOTE | 2018-07-05 12:08 | PN ---
Physical Exam: SUBJECTIVE: Patient seen and examined at bedside in ICU. Improving alertness, more responsive to environment. OBJECTIVE: Vital Signs Period Temp Pulse Resp BP Sys/Hernandez Pulse Ox Last 24 Hr 97.6 F-99 F 60-71 20-25 125-168/53-112 97-99 GENERAL: Oriented only to name, increasingly interactive and responsive to environment HEENT: NC/AT, PERRLA, MMM NECK: Trachea midline, supple LUNGS: no adventitious sounds appreciated over ventilator HEART: RRR no m/r/g ABDOMEN: soft, mild distention, g-tube c/d/i, cholecystostomy tube c/d/i draining bilious fluid EXTREMITIES: 2+ pulses, warm, well-perfused, b/l peripheral edema NEUROLOGICAL: moving all extremities spontaneously PSYCH: dementia appears to be at baseline, mild agitation SKIN: Warm, dry, normal turgor, no rashes or lesions noted Laboratory Results - last 24 hr 07/05/18 07/05/18 05:30 05:30 WBC 6.6 RBC 3.03 L Hgb 10.1 L Hct 29.8 L MCV 98.3 H MCH 33.4 MCHC 34.0 RDW 13.6 Plt Count 119 L D MPV 10.1 Absolute Neuts (auto) 4.1 Neutrophils % 62.9 Lymphocytes % 22.1 Monocytes % 10.0 Eosinophils % 4.7 H Basophils % 0.3 Nucleated RBC % 0 Sodium 141 Potassium 3.6 Chloride 109 H Carbon Dioxide 28 Anion Gap 4 L BUN 28 H Creatinine 0.9 Creat Clearance w eGFR 79.64 Random Glucose 120 H Calcium 7.0 L Phosphorus 2.4 L Magnesium 2.1 Total Bilirubin 1.6 H AST 31 ALT 43 Alkaline Phosphatase 157 H Total Protein 5.2 L Albumin 1.9 L Active Medications Generic Name Dose Route Start Last Admin Trade Name Freq PRN Reason Stop Dose Admin Acetaminophen 650 mg 07/05/18 02:08 Tylenol - PO Q6H PRN PAIN LEVEL 6-10 Chlorhexidine Gluconate 1 applic 06/29/18 22:00 07/04/18 23:00 Hibiclens For Decolonization - TP 1 applic HS [facility] Administration Clonazepam 0.25 mg 07/04/18 12:15 07/05/18 09:10 Klonopin - GT 0.25 mg BID [facility] Administration Heparin Sodium (Porcine) 5,000 unit 07/04/18 14:00 07/05/18 05:59 Heparin - SQ 5,000 unit TID [facility] Administration Meropenem 1 gm/ Dextrose 100 mls @ 200 mls/hr 07/02/18 20:00 07/05/18 09:08 IVPB 200 mls/hr BID@0800,2000 [facility] Administration As Directed Potassium Phosphate 30 mm/ 260 mls @ 43.333 mls/hr 07/05/18 09:00 07/05/18 09 :18 Sodium Chloride IVPB 07/05/18 14:59 43.333 mls/hr ONCE ONE Administration Metoprolol Tartrate 100 mg 06/29/18 10:00 07/05/18 09:11 Lopressor - GT 100 mg BID [facility] Administration Mirtazapine 15 mg 06/29/18 22:00 07/04/18 21:35 Remeron - GT 15 mg HS [facility] Administration Olanzapine 2.5 mg 07/04/18 12:30 07/05/18 09:11 Zyprexa - PO 2.5 mg BID [facility] Administration Pantoprazole Sodium 40 mg 06/29/18 10:00 07/05/18 09:18 Protonix Iv IVPUSH 40 mg DAILY [facility] Administration ASSESSMENT/PLAN: 87 y/o M w/ PMHx of ascending cholangitis s/p cholecystostomy placed and removed last October, AD, HTN, aspiration PNA, s/p PEG placement, presented from [facility] w/ SOB found to be septic 2/2 recurrent acute cholangitis, admitted to ICU, intubated and sedated. #GI -transaminitis, direct and total hyperbilirubinemia likely 2/2 ascending cholangitis -Sx consulted, not a surgical candidate per prior hospitalizations for this issue -abd US: distended GB, dilated CBD, dilated intrahepatic ducts -CT a/p w/o contrast: distended GB -GI following, recommended MRCP but this is deferred at this time -cholecystostomy tube placed by IR and draining -f/u hepatobiliary labs -ERCP planned when stable #ID -septic 2/2 ascending cholangitis -on presentation febrile, tachycardic, WBC 16.8 --> 14.4 -previously biliary cultures grew multiple MDR organisms including Acinetobacter -BCx 06/28 growing ESBL E coli and coag- Staph spp -BCx 06/30 NGTD -cont Meropenem -cont IVF -ID following #neuro -improving mentation, may have recovered to baseline -scheduled Klonopin -cont olanzapine and mirtazapine #pulm -presented in acute hypoxic respiratory failure and was intubated -now successfully extubated #CV -hemodynamically stable -no indication for pressors at this time -hold anti-hypertensives #PPx -DVT: heparin sq -GI: IV PTX #FEN -no IVF -monitor and replete electrolytes -Osmolite TF #code -DNR only #dispo -stable for transfer to med/surg Visit type - Emergency Visit Emergency Visit: No - New Patient This patient is new to me today: No - Critical Care Critical Care patient: Yes Total Critical Care Time (in minutes): 40 Critical Care Statement: The care of this patient involved high complexity decision making to prevent further life threatening deterioration of the patient 's condition and/or to evaluate & treat vital organ system(s) failure or risk of failure.
--- NOTE | 2018-07-05 12:40 | PN ---
Teaching Attending Note Name of Resident: Zonia Cotton ATTENDING PHYSICIAN STATEMENT I saw and evaluated the patient. I reviewed the resident's note and discussed the case with the resident. I agree with the resident's findings and plan as documented. SUBJECTIVE: Pt seen and examined in the ICU. Extubated yesterday without incident. No fevers. OBJECTIVE: Vital Signs Period Temp Pulse Resp BP Sys/Hernandez Pulse Ox Last 24 Hr 97.6 F-99 F 60-71 20-25 125-168/53-112 97-99 Intake & Output 07/02/18 07/03/18 07/04/18 07/05/18 23:59 23:59 23:59 23:59 Intake Total 2200 1680 4040 1911 Output Total 1974 1930 1900 1160 Balance 225 -250 2140 751 Weight 74.5 kg 74.8 kg 74.6 kg 75 kg Gen: NAD at rest Heart: RRR Lung: decreased breath sounds at the bases Abd: soft, nontender, +cholecystostomy with bilious drainage Ext: no edema CBC, BMP 07/05/18 05:30 07/05/18 05:30 Active Medications Acetaminophen (Tylenol -) 650 mg PO Q6H PRN PRN Reason: PAIN LEVEL 6-10 Clonazepam (Klonopin -) 0.25 mg GT BID [facility] Last Admin: 07/05/18 09:10 Dose: 0.25 mg Heparin Sodium (Porcine) (Heparin -) 5,000 unit SQ TID [facility] Last Admin: 07/05/18 05:59 Dose: 5,000 unit Meropenem 1 gm/ Dextrose 100 mls @ 200 mls/hr IVPB BID@0800,2000 [facility] Last Admin: 07/05/18 09:08 Dose: 200 mls/hr Potassium Phosphate 30 mm/ (Sodium Chloride) 260 mls @ 43.333 mls/hr IVPB ONCE ONE Stop: 07/05/18 14:59 Last Admin: 07/05/18 09:18 Dose: 43.333 mls/hr Metoprolol Tartrate (Lopressor -) 100 mg GT BID [facility] Last Admin: 07/05/18 09:11 Dose: 100 mg Mirtazapine (Remeron -) 15 mg GT HS [facility] Last Admin: 07/04/18 21:35 Dose: 15 mg Olanzapine (Zyprexa -) 2.5 mg PO BID [facility] Last Admin: 07/05/18 09:11 Dose: 2.5 mg ASSESSMENT AND PLAN: s/p Acute Hypoxic Respiratory Failure Acute Cholangitis s/p Cholecystostomy tube placement 06/29 Severe Sepsis resolving Acute Kidney Injury Lactic Acidosis Elevated LFTs likely Ischemic Injury Thrombocytopenia HTN Dementia - continue antibiotics - monitor urine output, creatinine - taper Fio2 to keep Spo2 >90% - monitor drain output - aspiration precautions - DVT/GI prophylaxis - can monitor on floor
--- NOTE | 2018-07-05 13:56 | CONSULT ---
Admitting History and Physical - Primary Care Physician PCP: Lupe Curtis - Admission History of Present Illness: 87yo M from [facility] with PNH cholangitis with cholecystomy tube which was dislodged and then never replaced in October 2017 , hx of aspiration PNA, PEG, HTN and dementia sent to hospital 06/28 due to SOB noted by staff and found to be in severe sepsis due to suspected cholangitis Required intubation. Extubated yesterday. [place] [facility] [place], which demonstrated normal swallowing function. Suggested PO trials, to wean from PEG. PEG has not been used reportedly in a year with good po tolerance. 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) - Past Surgical History Past Surgical History: Yes: Hernia Repair (inguinal hernia repair), Upper Endoscopy (with ERCP and stone extraction 2014 [place] (too sick for cholecystectomy)) - Advance Directives Advance Directives: Yes: DNR - Smoking History Smoking history: Former smoker Have you smoked in the past 12 months: No If you are a former smoker, when did you quit?: 30 YRS AGO - 1-2ppd x 20-30 yrs - Alcohol/Substance Use Hx Alcohol Use: No History of Substance Use: reports: None - Social History ADL: Support Services History - Admission Reason For Visit: ACUTE KIDNEY INJ,ELEVATED BRAIN MERY PEPTIDE,SEPSIS - Diagnostics Modified Barium Swallow: Report [place]ed [place] [place] WNL. Poor appetite, aware of need to eat by mouth to d/c PEG) - General Mental Status: Able to Follow Commands, Vague Attention: Mild Impairment Ability to Follow Directions: Fair Head/Neck Control: Needs Assist - Hearing Hearing: Functional Hearing: Normal Speech Evaluation - Communication Primary Language: GHANAIAN Communication: Yes: Simple Responses - Speech Production Intelligibility: Yes: Mildly Impaired - Speech Characteristics Voice Loudness: Mildly Soft/Quiet Voice Pitch: Yes: Mildly High Voice Phonatory-based Quality: Yes: Dysphonia Speech Clarity: < 75% Nasal Resonance: Normal Articulation: Yes: Imprecise - Language/Auditory Comprehension Follows: Yes: 1 Stage Simple Commands - Swallow Evaluation/Bedside Assessment Current Nutritional Intake: NPO, G Tube Oral Secretions: Yes: WFL Dentition: Yes: Edentulous Facial Symmetry at Rest: Symmetrical Lingual Movement: Symmetric (dry) Lingual Speed of Movement: Reduced Lingual Movement Strgth Against Opposition: Reduced Laryngeal Movement: Reduced Excursion, Labored,delay initiation Rate of Intake: Slow/Holding Bolus Size: Small Labial Seal: WFL Oral Prep Time: Increased A-P Transit: Impaired Timing of Swallow: Delayed Coughing/Throat Clear: No Change in Voice: No Recommendations - Speech Evaluation, Impression/Plan Impression: h/o normal swallowing a year ago with good tolerance of PO diet over the year. PEG feeding were not given. Pt refused much by mouth, only accepted 1/3 tsp of puree/no weater, and no additonal. Swallow delayed labored. Pt will not accept enough by mouth at this time. - Disposition Discharge to: Jail Facility - Dysphagia Impressions/Plan Swallowing Skills: Impaired Dysphagia Impressions: Mild Impairment, Moderate Impairment, Risk of Aspiration *Silent aspiration: cannot be R/O at bedside Recommendations: Modified Barium Swallow (once begins to accept po trials), Other (PEG feedings for now. If pt begins to accept, trial of Dys puree/nectar on tsp. Monitor tolerance.)
--- NOTE | 2018-07-05 14:13 | PN ---
Progress Note, Physician History of Present Illness: looks much better off of face mask still weak - Current Medication List Current Medications: Active Medications Acetaminophen (Tylenol -) 650 mg PO Q6H PRN PRN Reason: PAIN LEVEL 6-10 Clonazepam (Klonopin -) 0.25 mg GT BID [facility] Last Admin: 07/05/18 09:10 Dose: 0.25 mg Heparin Sodium (Porcine) (Heparin -) 5,000 unit SQ TID [facility] Last Admin: 07/05/18 05:59 Dose: 5,000 unit Meropenem 1 gm/ Dextrose 100 mls @ 200 mls/hr IVPB BID@0800,2000 [facility] Last Admin: 07/05/18 09:08 Dose: 200 mls/hr Potassium Phosphate 30 mm/ (Sodium Chloride) 260 mls @ 43.333 mls/hr IVPB ONCE ONE Stop: 07/05/18 14:59 Last Admin: 07/05/18 09:18 Dose: 43.333 mls/hr Metoprolol Tartrate (Lopressor -) 100 mg GT BID [facility] Last Admin: 07/05/18 09:11 Dose: 100 mg Mirtazapine (Remeron -) 15 mg GT HS [facility] Last Admin: 07/04/18 21:35 Dose: 15 mg Olanzapine (Zyprexa -) 2.5 mg PO BID [facility] Last Admin: 07/05/18 09:11 Dose: 2.5 mg - Objective Vital Signs: Vital Signs Temperature 99 F 07/05/18 06:00 Pulse Rate 63 07/05/18 10:00 Respiratory Rate 26 H 07/05/18 12:00 Blood Pressure 125/70 07/05/18 12:00 O2 Sat by Pulse Oximetry (%) 99 07/05/18 08:21 Constitutional: Yes: No Distress, Calm Cardiovascular: Yes: S1, S2 Respiratory: Yes: Regular, On Nasal O2, Poor Air Entry Gastrointestinal: Yes: Normal Bowel Sounds, Soft Musculoskeletal: Yes: WNL Extremities: Yes: WNL Neurological: Yes: Alert, Oriented Psychiatric: Yes: Alert Labs: CBC, BMP 07/05/18 05:30 07/05/18 05:30 INR, PTT INR 1.62 (0.83-1.09) H 06/29/18 05:30 - ....Imaging Chest X-ray: Report Reviewed, Image Reviewed Assessment/Plan Acute Hypoxic Respiratory Failure Acute Cholangitis s/p Cholecystostomy tube placement 06/29 Severe Sepsis Acute Kidney Injury Lactic Acidosis Elevated LFTs likely Ischemic Injury Thrombocytopenia r/o DIC HTN Dementia plan continue meropenam post extubation doing well resp support monitor for fevers rest as per icu close watch repeat blood cx showing no growth now cc 38 min
[2018-07-05] MEDS: ACETAMINOPHEN 325 MG TABLET (FP) PO PRN (18:03)
[2018-07-05] MEDS ORDERED: PT OWN MED DRAWER 7, Y5N ONE (21:15)
[2018-07-05] MEDS: MIRTAZAPINE 15 MG TABLET (FP) GT SCH (22:48)
[2018-07-06] MEDS: HEPARIN NA (PORCINE) 5,000 UNITS/ML 1ML VIAL SQ SCH ×3 (06:35→21:56)
[2018-07-06 08:01] LABS: ALK PHOS 195 U/L (45-117); ANION GAP 5 MMOL/L (8-16); BILIRUBIN,TOTAL 1.4 mg/dL (0.2-1); BLOOD UREA NITROGEN 24 mg/dL (7-18); CHLORIDE 110 mmol/L (98-107); CO2 27 mmol/L (21-32); GLUCOSE,RANDOM 115 mg/dL (74-106); MAGNESIUM 2.2 mg/dL (1.8-2.4); PHOSPHOROUS 2.9 mg/dL (2.5-4.9); POTASSIUM 4.1 mmol/L (3.5-5.1); SGOT/AST 29 U/L (15-37); SGPT/ALT 42 U/L (13-61); SODIUM 142 mmol/L (136-145); TOT PROT 5.5 g/dl (6.4-8.2)
[2018-07-06 08:03] LABS: BASO % 0.4 % (0-2.0); EOS % 4.9 % (0-4.5); HEMATOCRIT 30.8 % (35.4-49); HEMOGLOBIN 10.5 GM/dL (11.7-16.9); LYMPH % 22.3 % (8-40); MCH 33.5 pg (25.7-33.7); MEAN CELL VOLUME 98.6 fl (80-96); MEAN PLT VOLUME 10.1 fl (7.5-11.1); NEUT % 64.4 % (42.8-82.8); PLATELET COUNT 174 K/MM3 (134-434); RBC 3.13 M/mm3 (4.00-5.60); RDW 14.1 % (11.9-15.9)
[2018-07-06 08:36] LABS: CALCIUM 6.8 mg/dL (8.5-10.1)
--- NOTE | 2018-07-06 10:33 | PN ---
Progress Note, Physician History of Present Illness: stable still gurgling tolerating feeds still a bit drowsy - Current Medication List Current Medications: Active Medications Acetaminophen (Tylenol -) 650 mg PO Q6H PRN PRN Reason: PAIN LEVEL 6-10 Last Admin: 07/05/18 18:03 Dose: 650 mg Clonazepam (Klonopin -) 0.25 mg GT BID [facility] Last Admin: 07/05/18 22:47 Dose: 0.25 mg Heparin Sodium (Porcine) (Heparin -) 5,000 unit SQ TID [facility] Last Admin: 07/06/18 06:35 Dose: 5,000 unit Meropenem 1 gm/ Dextrose 100 mls @ 200 mls/hr IVPB BID@0800,2000 [facility] Last Admin: 07/05/18 20:46 Dose: 200 mls/hr Metoprolol Tartrate (Lopressor -) 100 mg GT BID [facility] Last Admin: 07/05/18 22:47 Dose: 100 mg Mirtazapine (Remeron -) 15 mg GT HS [facility] Last Admin: 07/05/18 22:48 Dose: 15 mg Olanzapine (Zyprexa -) 2.5 mg PO BID [facility] Last Admin: 07/05/18 22:48 Dose: 2.5 mg - Objective Vital Signs: Vital Signs Temperature 98.6 F 07/06/18 09:09 Pulse Rate 65 07/06/18 09:09 Respiratory Rate 20 07/06/18 09:09 Blood Pressure 139/65 07/06/18 09:09 O2 Sat by Pulse Oximetry (%) 98 07/05/18 21:00 Constitutional: Yes: No Distress, Calm Cardiovascular: Yes: S1, S2 Respiratory: Yes: Poor Air Entry, Rales Gastrointestinal: Yes: Normal Bowel Sounds, Soft, Other (peg tube in place) Musculoskeletal: Yes: WNL Extremities: Yes: WNL Neurological: Yes: Alert Labs: CBC, BMP 07/06/18 07:00 07/06/18 07:00 INR, PTT INR 1.62 (0.83-1.09) H 06/29/18 05:30 Assessment/Plan Acute Hypoxic Respiratory Failure Acute Cholangitis s/p Cholecystostomy tube placement 06/29 Severe Sepsis Acute Kidney Injury Lactic Acidosis Elevated LFTs likely Ischemic Injury Thrombocytopenia r/o DIC HTN Dementia plan continue meropenam resp support nutrition patient remaining stable physio if possible
[2018-07-06] MEDS: MEROPENEM 1 GM in DEXTROSE 5%-WATER 100 ML IVPB SCH ×2 (10:56→21:53)
[2018-07-06] MEDS: clonazePAM 0.5 MG TABLET GT SCH ×2 (10:56→21:53)
[2018-07-06] MEDS: OLANZapine 2.5 MG TABLET PO SCH ×2 (10:56→21:53)
[2018-07-06] MEDS: METOPROLOL TARTRATE 50 MG TABLET (FP) GT SCH ×2 (10:57→21:54)
--- NOTE | 2018-07-06 11:00 | PN ---
Teaching Attending Note Name of Resident: Shai Sexton ATTENDING PHYSICIAN STATEMENT I saw and evaluated the patient. I reviewed the resident's note and discussed the case with the resident. I agree with the resident's findings and plan as documented. SUBJECTIVE:currently asymptomatic. denies Cp, SOB, fever, chills, N/V/C/D OBJECTIVE: Last Vital Signs Temp Pulse Resp BP Pulse Ox 98.6 F 65 20 139/65 98 07/06/18 09:09 07/06/18 09:09 07/06/18 09:09 07/06/18 09:09 07/05/18 21:00 General NAD, AA&O x2, questionable to time (knew year but not month) CV S1 S2 RRR Lungs CTA anteriorly, poor inspiratory effort Abdomen soft NT/ND +cholcystostomy tube with bile +PEG Extremities no pedal edema ASSESSMENT AND PLAN: 87[place] [facility] [place]ang[place] with cholecystomy tube which was dislodged and then never replaced in October 2017 , hx of aspiration PNA, PEG, HTN and dementia sent to hospital due to SOB noted by staff and found to be in severe sepsis due to suspected PNA and cholangitis 1. severe sepsis due to cholangitis and ESBL bacteremia- afebrile, leukocytosis resolved. +cholecystostomy tube on 06/29 with bile draining. repeat BCx negative. on Meropenem. clinically improved. alk phos slowly trending up. bili trending down. will need ERCP. GI and surgery and IR on board. 2. Acute hypoxic respiratory failure- s/p intubated and extubated 07/04/18. saturating well on 2NC. titrate down oxygen supplementation as tolerated. 3. Lactic acidosis- due to combination of sepsis and hypoxia. resolved 4. JUAN J- due to sepsis. will hydrate.avoid nephrotoxic agents. monitor UOP. 5. Transaminitis- due to sepsis. resolved 6. Hypophosphatemia- resolved 7. Thrombocytopneia- due to sepsis. resolved 8. Hypernatremia- due to dehydration. resolved. cont free water flushes 9. dementia- appears to be at baseline per old notes. will confirm with 10. HTN- resume home medciations. 11. DVT ppx- hep sq
--- NOTE | 2018-07-06 12:24 | PN ---
Progress Note, ROLL INSPECTOR - Note Progress Note: Pt says he is feeling "alright" but refusing pO trials at this time. Continue PEG feedings for now. Repeat MBS when pt is ready to start PO trials again, as in pt or as out pt from NH.
--- NOTE | 2018-07-06 13:59 | PN ---
Physical Exam: SUBJECTIVE: Patient seen and examined at bedside in ICU. Improving alertness, more responsive to environment. OBJECTIVE: Vital Signs Period Temp Pulse Resp BP Sys/Hernandez Pulse Ox Last 24 Hr 97.8 F-99 F 62-72 20-63 135-160/55-98 98 GENERAL: Improved alertness, now oriented to name, year but not month, hospital setting but not precise location; likely at mental basline HEENT: NC/AT, PERRLA, MMM NECK: Trachea midline, supple LUNGS: no adventitious sounds appreciated over ventilator HEART: RRR no m/r/g ABDOMEN: soft, mild distention, g-tube c/d/i, cholecystostomy tube c/d/i draining bilious fluid EXTREMITIES: 2+ pulses, warm, well-perfused, b/l peripheral edema NEUROLOGICAL: moving all extremities spontaneously PSYCH: dementia appears to be at baseline, mild agitation SKIN: Warm, dry, normal turgor, no rashes or lesions noted Laboratory Results - last 24 hr 07/06/18 07/06/18 07:00 07:00 WBC 7.0 RBC 3.13 L Hgb 10.5 L Hct 30.8 L MCV 98.6 H MCH 33.5 MCHC 34.0 RDW 14.1 Plt Count 174 D MPV 10.1 Absolute Neuts (auto) 4.5 Neutrophils % 64.4 Lymphocytes % 22.3 Monocytes % 8.0 Eosinophils % 4.9 H Basophils % 0.4 Nucleated RBC % 0 Sodium 142 Potassium 4.1 Chloride 110 H Carbon Dioxide 27 Anion Gap 5 L BUN 24 H Creatinine 1.0 Creat Clearance w eGFR 70.52 Random Glucose 115 H Calcium 6.8 L* Phosphorus 2.9 Magnesium 2.2 Total Bilirubin 1.4 H AST 29 ALT 42 Alkaline Phosphatase 195 H Total Protein 5.5 L Albumin 2.0 L Active Medications Generic Name Dose Route Start Last Admin Trade Name Freq PRN Reason Stop Dose Admin Acetaminophen 650 mg 07/05/18 17:08 07/05/18 18:03 Tylenol - PO 650 mg Q6H PRN Administration PAIN LEVEL 6-10 Clonazepam 0.25 mg 07/05/18 22:00 07/06/18 10:56 Klonopin - GT 0.25 mg BID HOANG Administration Heparin Sodium (Porcine) 5,000 unit 07/05/18 22:00 07/06/18 13:36 Heparin - SQ 5,000 unit TID HOANG Administration Meropenem 1 gm/ Dextrose 100 mls @ 200 mls/hr 07/05/18 20:00 07/06/18 10:56 IVPB 200 mls/hr BID@0800,2000 HOANG Administration As Directed Metoprolol Tartrate 100 mg 07/05/18 22:00 07/06/18 10:57 Lopressor - GT 100 mg BID HOANG Administration Mirtazapine 15 mg 07/05/18 22:00 07/05/18 22:48 Remeron - GT 15 mg HS HOANG Administration Olanzapine 2.5 mg 07/05/18 22:00 07/06/18 10:56 Zyprexa - PO 2.5 mg BID HOANG Administration ASSESSMENT/PLAN: 87 y/o M w/ PMHx of ascending cholangitis s/p cholecystostomy placed and removed last October, AD, HTN, aspiration PNA, s/p PEG placement, presented from [facility] w/ SOB found to be septic 2/2 recurrent acute cholangitis, admitted to ICU, intubated and sedated. #GI -transaminitis, direct and total hyperbilirubinemia likely 2/2 ascending cholangitis -Sx consulted, not a surgical candidate per prior hospitalizations for this issue -abd US: distended GB, dilated CBD, dilated intrahepatic ducts -CT a/p w/o contrast: distended GB -GI following, recommended MRCP but this is deferred at this time -cholecystostomy tube placed by IR and draining -f/u hepatobiliary labs -ERCP planned when stable #ID -septic 2/2 ascending cholangitis -on presentation febrile, tachycardic, WBC 16.8 --> 14.4 -previously biliary cultures grew multiple MDR organisms including Acinetobacter -BCx 06/28 growing ESBL E coli and coag- Staph spp -BCx 06/30 NGTD -cont Meropenem -cont IVF -ID following #neuro -improving mentation, may have recovered to baseline -scheduled Klonopin -cont olanzapine and mirtazapine #pulm -presented in acute hypoxic respiratory failure and was intubated -now successfully extubated #CV -hemodynamically stable -no indication for pressors at this time -hold anti-hypertensives #PPx -DVT: heparin sq -GI: IV PTX #FEN -no IVF -monitor and replete electrolytes -Osmolite TF #code -DNR only #dispo -stable for transfer to med/surg Visit type - Emergency Visit Emergency Visit: No - New Patient This patient is new to me today: No - Critical Care Critical Care patient: No
--- NOTE | 2018-07-06 14:36 | PN ---
Progress Note, Physician History of Present Illness: pulmonary lethargic,mild congestion. + drainage via cholecystostomy 200 cc - Current Medication List Current Medications: Active Medications Acetaminophen (Tylenol -) 650 mg PO Q6H PRN PRN Reason: PAIN LEVEL 6-10 Last Admin: 07/05/18 18:03 Dose: 650 mg Clonazepam (Klonopin -) 0.25 mg GT BID [facility] Last Admin: 07/06/18 10:56 Dose: 0.25 mg Heparin Sodium (Porcine) (Heparin -) 5,000 unit SQ TID [facility] Last Admin: 07/06/18 13:36 Dose: 5,000 unit Meropenem 1 gm/ Dextrose 100 mls @ 200 mls/hr IVPB BID@0800,2000 [facility] Last Admin: 07/06/18 10:56 Dose: 200 mls/hr Metoprolol Tartrate (Lopressor -) 100 mg GT BID [facility] Last Admin: 07/06/18 10:57 Dose: 100 mg Mirtazapine (Remeron -) 15 mg GT HS [facility] Last Admin: 07/05/18 22:48 Dose: 15 mg Olanzapine (Zyprexa -) 2.5 mg PO BID [facility] Last Admin: 07/06/18 10:56 Dose: 2.5 mg - Objective Vital Signs: Vital Signs Temperature 98.4 F 07/06/18 13:42 Pulse Rate 67 07/06/18 13:42 Respiratory Rate 20 07/06/18 13:42 Blood Pressure 135/98 07/06/18 13:42 O2 Sat by Pulse Oximetry (%) 98 07/05/18 21:00 Constitutional: Yes: Well Nourished, Other (lethargic) Eyes: Yes: WNL HENT: Yes: WNL Neck: Yes: WNL Cardiovascular: Yes: Regular Rate and Rhythm, S1, S2 Respiratory: Yes: Rhonchi (scattered rhonchi) Gastrointestinal: Yes: Soft, Other (cholecystostomy) Edema: No Labs: CBC, BMP 07/06/18 07:00 07/06/18 07:00 INR, PTT INR 1.62 (0.83-1.09) H 06/29/18 05:30 Problem List - Problems (1) JUAN J (acute kidney injury) Code(s): N17.9 - ACUTE KIDNEY FAILURE, UNSPECIFIED (2) Acute cholangitis due to calculus of bile duct with obstruction Code(s): K80.33 - CALCULUS OF BILE DUCT W ACUTE CHOLANGITIS WITH OBSTRUCTION (3) 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 Code(s): K80.65 - CALCULUS OF GB AND BILE DUCT W CHRONIC CHOLECYST W OBST (4) Sepsis Code(s): A41.9 - SEPSIS, UNSPECIFIED ORGANISM Qualifiers: Sepsis type: sepsis due to unspecified organism Qualified Code(s): A41.9 - Sepsis, unspecified organism (5) Displacement of bile duct prosthesis Code(s): T85.520A - DISPLACEMENT OF BILE DUCT PROSTHESIS, INITIAL ENCOUNTER Qualifiers: Encounter type: initial encounter Qualified Code(s): T85.520A - Displacement of bile duct prosthesis, initial encounter (6) PEG (percutaneous endoscopic gastrostomy) status Code(s): Z93.1 - GASTROSTOMY STATUS (7) Dementia with behavioral disturbance Code(s): F03.91 - UNSPECIFIED DEMENTIA WITH BEHAVIORAL DISTURBANCE Qualifiers: Dementia type: unspecified type Qualified Code(s): F03.91 - Unspecified dementia with behavioral disturbance (8) Hypertension Code(s): I10 - ESSENTIAL (PRIMARY) HYPERTENSION Qualifiers: Hypertension type: essential hypertension Qualified Code(s): I10 - Essential (primary) hypertension Assessment/Plan ASSESSMENT AND PLAN: s/p Acute Hypoxic Respiratory Failure Acute Cholangitis s/p Cholecystostomy tube placement 06/29 Severe Sepsis resolving Acute Kidney Injury Lactic Acidosis Elevated LFTs likely Ischemic Injury Thrombocytopenia HTN Dementia - antibiotics - monitor urine output, creatinine - taper Fio2 to keep Spo2 >90% - monitor drain output - aspiration precautions - DVT/GI prophylaxis - inhaled bronchodilators DR YOUNG
--- NOTE | 2018-07-06 14:42 | PN.GI ---
GI Progress Note Subjective: Pt seen/examined at bedside, transferred to floors, awake, somnolent but rousable. Approximately 200cc bilious output today per nursing staff. Tolerating PEG feeds. - Objective Vital Signs: Vital Signs Temperature 98.4 F 07/06/18 13:42 Pulse Rate 67 07/06/18 13:42 Respiratory Rate 20 07/06/18 13:42 Blood Pressure 135/98 07/06/18 13:42 O2 Sat by Pulse Oximetry (%) 98 07/05/18 21:00 Constitutional: Well Nourished, No Distress, Calm Cardiovascular: Yes: WNL, Regular Rate and Rhythm Respiratory: Yes: WNL, Regular, CTA Bilaterally ...Auscultate: Yes: Normoactive Bowel Sounds ...Palpate: Yes: Other (Abd soft, non tender, non distended +C tube in place with 10-20cc bilious drainage, +PEG in place) Labs: CBC, BMP 07/06/18 07:00 07/06/18 07:00 INR, PTT INR 1.62 (0.83-1.09) H 06/29/18 05:30 Problem List - Problems (1) Cholangitis Assessment/Plan: 87yo male h/o dementia, HTN, choledocholithiasis s/p prior ERCP with stone extraction, cholecystitis s/p cholecystostomy (2017), PEG, presenting with SOB, fever and elevated LFTs s/p cholecystostomy tube per IR on 06/29. Pts family had opted for conservative measures on admission, pt now clinically improving. Alk phos elevation noted, though T bili normalizing. Likely resolving cholangitis though may be component of sepsis vs medications (?meropenem) contributing to alk phos elevation. -Continue to monitor cholecystostomy tube output - pt likely will require retirement drainage. Attempted to contact pts son to discuss further, no answer, VM not available. -IV antibiotics per ID, however if alk phos continues to rise may need to consider alternative pending course -Closely monitor LFT trend -Ursodiol 300mg bid for attempts at stone dissolution and prevention of recurrent episodes Discussed above with medicine team Code(s): K83.09 - OTHER CHOLANGITIS
[2018-07-06] MEDS: ALBUTEROL SO4 2.5/IPRATROPIUM 0.5 INH SOL 3 ML VIAL.NEB. NEB SCH (20:53)
[2018-07-06] MEDS: URSODIOL 300 MG CAPSULE PO SCH (21:54)
[2018-07-06] MEDS: MIRTAZAPINE 15 MG TABLET (FP) GT SCH (21:54)
[2018-07-07] MEDS: HEPARIN NA (PORCINE) 5,000 UNITS/ML 1ML VIAL SQ SCH ×3 (06:02→21:26)
[2018-07-07] MEDS: ALBUTEROL SO4 2.5/IPRATROPIUM 0.5 INH SOL 3 ML VIAL.NEB. NEB SCH ×2 (07:45→14:10)
[2018-07-07] MEDS ORDERED: PT OWN MED DRAWER 7, Y5N ONE ×3 (08:50→19:01)
[2018-07-07] MEDS: MEROPENEM 1 GM in DEXTROSE 5%-WATER 100 ML IVPB SCH ×2 (09:16→21:25)
--- NOTE | 2018-07-07 09:27 | PN ---
Progress Note (short form) - Note Progress Note: Lethargic. NAD. No acute events overnight. 150cc drainage via cholecystostomy. Intake & Output 07/04/18 07/05/18 07/06/18 07/07/18 23:59 23:59 23:59 23:59 Intake Total 4040 1911 1656 100 Output Total 1900 2820 540 950 Balance 2140 -909 1116 -850 Weight 164 lb 7.437 oz 165 lb 5.547 oz Last Vital Signs Temp Pulse Resp BP Pulse Ox 98.2 F 74 20 161/52 L 97 07/07/18 06:04 07/07/18 06:04 07/07/18 06:04 07/07/18 06:04 07/06/18 21:00 Active Medications Acetaminophen (Tylenol -) 650 mg PO Q6H PRN PRN Reason: PAIN LEVEL 6-10 Last Admin: 07/05/18 18:03 Dose: 650 mg Albuterol/Ipratropium (Duoneb -) 1 amp NEB RTID [facility] Last Admin: 07/06/18 20:53 Dose: 1 amp Clonazepam (Klonopin -) 0.25 mg GT BID [facility] Last Admin: 07/06/18 21:53 Dose: 0.25 mg Heparin Sodium (Porcine) (Heparin -) 5,000 unit SQ TID [facility] Last Admin: 07/07/18 06:02 Dose: 5,000 unit Meropenem 1 gm/ Dextrose 100 mls @ 200 mls/hr IVPB BID@0800,2000 [facility] Last Admin: 07/07/18 09:16 Dose: 200 mls/hr Metoprolol Tartrate (Lopressor -) 100 mg GT BID [facility] Last Admin: 07/06/18 21:54 Dose: 100 mg Mirtazapine (Remeron -) 15 mg GT HS [facility] Last Admin: 07/06/18 21:54 Dose: 15 mg Olanzapine (Zyprexa -) 2.5 mg PO BID [facility] Last Admin: 07/06/18 21:53 Dose: 2.5 mg Ursodiol (Actigal -) 300 mg PO BID [facility] Last Admin: 07/06/18 21:54 Dose: 300 mg Constitutional: Yes: lethargic, NAD Eyes: Yes: WNL HENT: Yes: WNL Neck: Yes: WNL Cardiovascular: Yes: Regular Rate and Rhythm, S1, S2 Respiratory: Yes: Scattered Rhonchi Gastrointestinal: Yes: Soft, (+) cholecystostomy Edema: No Labs: Problem List - Problems (1) JUAN J (acute kidney injury) Code(s): N17.9 - ACUTE KIDNEY FAILURE, UNSPECIFIED (2) Acute cholangitis due to calculus of bile duct with obstruction Code(s): K80.33 - CALCULUS OF BILE DUCT W ACUTE CHOLANGITIS WITH OBSTRUCTION (3) 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 Code(s): K80.65 - CALCULUS OF GB AND BILE DUCT W CHRONIC CHOLECYST W OBST (4) Sepsis Code(s): A41.9 - SEPSIS, UNSPECIFIED ORGANISM Qualifiers: Sepsis type: sepsis due to unspecified organism Qualified Code(s): A41.9 - Sepsis, unspecified organism (5) Displacement of bile duct prosthesis Code(s): T85.520A - DISPLACEMENT OF BILE DUCT PROSTHESIS, INITIAL ENCOUNTER Qualifiers: Encounter type: initial encounter Qualified Code(s): T85.520A - Displacement of bile duct prosthesis, initial encounter (6) PEG (percutaneous endoscopic gastrostomy) status Code(s): Z93.1 - GASTROSTOMY STATUS (7) Dementia with behavioral disturbance Code(s): F03.91 - UNSPECIFIED DEMENTIA WITH BEHAVIORAL DISTURBANCE Qualifiers: Dementia type: unspecified type Qualified Code(s): F03.91 - Unspecified dementia with behavioral disturbance (8) Hypertension Code(s): I10 - ESSENTIAL (PRIMARY) HYPERTENSION Qualifiers: Hypertension type: essential hypertension Qualified Code(s): I10 - Essential (primary) hypertension Assessment/Plan ASSESSMENT AND PLAN: s/p Acute Hypoxic Respiratory Failure Acute Cholangitis s/p Cholecystostomy tube placement 06/29 Severe Sepsis resolving Acute Kidney Injury Lactic Acidosis Elevated LFTs likely Ischemic Injury Thrombocytopenia HTN Dementia - antibiotics per ID - monitor urine output, creatinine - O2 as needed - monitor drain output - aspiration precautions - DVT/GI prophylaxis - inhaled bronchodilators Dr Corral
[2018-07-07] MEDS: OLANZapine 2.5 MG TABLET PO SCH ×2 (09:29→21:26)
[2018-07-07] MEDS: METOPROLOL TARTRATE 50 MG TABLET (FP) GT SCH ×2 (09:29→21:25)
[2018-07-07] MEDS: URSODIOL 300 MG CAPSULE PO SCH ×2 (09:29→21:26)
[2018-07-07] MEDS: clonazePAM 0.5 MG TABLET GT SCH ×2 (09:33→21:25)
[2018-07-07 10:37] LABS: ALBUMIN 2.1 g/dl (3.4-5.0); ALK PHOS 180 U/L (45-117); ANION GAP 7 MMOL/L (8-16); BILIRUBIN,TOTAL 1.1 mg/dL (0.2-1); BLOOD UREA NITROGEN 25 mg/dL (7-18); CALCIUM 7.7 mg/dL (8.5-10.1); CHLORIDE 108 mmol/L (98-107); CO2 25 mmol/L (21-32); CREATININE 0.9 mg/dL (0.55-1.3); GLUCOSE,RANDOM 125 mg/dL (74-106); POTASSIUM 4.5 mmol/L (3.5-5.1); SGOT/AST 28 U/L (15-37); SGPT/ALT 44 U/L (13-61); SODIUM 140 mmol/L (136-145); TOT PROT 5.9 g/dl (6.4-8.2)
--- NOTE | 2018-07-07 11:00 | PN ---
Teaching Attending Note Name of Resident: Shai Sexton ATTENDING PHYSICIAN STATEMENT I saw and evaluated the patient. I reviewed the resident's note and discussed the case with the resident. I agree with the resident's findings and plan as documented. SUBJECTIVE:asymptoamtic. denies CP, SOB, fever, chills, N/V/C/D OBJECTIVE: Last Vital Signs Temp Pulse Resp BP Pulse Ox 98.2 F 74 20 161/52 L 97 07/07/18 06:04 07/07/18 06:04 07/07/18 06:04 07/07/18 06:04 07/06/18 21:00 General NAD, CV S1 S2 RRR Lungs CTA anteriorly, poor inspiratory effort Abdomen soft NT/ND +cholcystostomy tube with bile +PEG Extremities no pedal edema ASSESSMENT AND PLAN: 87yo M from [facility] with [facility] cholangitis with cholecystomy tube which was dislodged and then never replaced in October 2017 , hx of aspiration PNA, PEG, HTN and dementia sent to hospital due to SOB noted by staff and found to be in severe sepsis due to suspected PNA and cholangitis 1. severe sepsis due to cholangitis and ESBL bacteremia- afebrile, leukocytosis resolved. +cholecystostomy tube on 06/29 with bile draining. repeat BCx negative. on Meropenem. clinically improved. alk phos stabilized. will confirm with ID if meropenm should be switched in light of this. started on ursodiol. will [facility]. no plans for ERCP at this time. GI and surgery and IR on board. 2. Acute hypoxic respiratory failure- s/p intubated and extubated 07/04/18. saturating well on 2NC. titrate down oxygen supplementation as tolerated. 3. Lactic acidosis- due to combination of sepsis and hypoxia. resolved 4. JUAN J- due to sepsis. will hydrate.avoid nephrotoxic agents. monitor UOP. 5. Transaminitis- due to sepsis. resolved 6. Hypophosphatemia- resolved 7. Thrombocytopneia- due to sepsis. resolved 8. Hypernatremia- due to dehydration. resolved. cont free water flushes 9. dementia- appears to be at baseline per old notes. will confirm with 10. HTN- resume home medciations. 11. DVT ppx- hep sq 12. Plan for PICC placement today,. will need 14days of IV abx. plan to return to SNF today
--- NOTE | 2018-07-07 11:37 | PN ---
Progress Note, DRILLER MULTIPLE SPINDLE - Note Progress Note: Selected Entries 07/06/18 07/06/18 07/06/18 06:00 09:09 13:42 Temperature 97.8 F 98.6 F 98.4 F 07/06/18 07/06/18 07/07/18 19:21 22:00 06:04 Temperature 98.7 F 98.3 F 98.2 F 07/07/18 10:00 Temperature 98.0 F Laboratory Tests 07/06/18 07:00 WBC 7.0 Pt refusing pO trials at this time. Continue PEG feedings for now. Repeat MBS when pt is ready to start PO trials again, as in pt or as out pt from [place].
[2018-07-07] MEDS: amLODIPine BESYLATE 5 MG TABLET (FP) PO SCH (11:45)
--- NOTE | 2018-07-07 13:09 | DS ---
Physical Exam: SUBJECTIVE: atient seen and examined at bedside. Improving alertness, more responsive to environment. OBJECTIVE: Vital Signs Period Temp Pulse Resp BP Sys/Hernandez Pulse Ox Last 24 Hr 98.0 F-98.7 F 64-74 20-20 135-161/52-98 97-97 PHYSICAL EXAM GENERAL: Improved alertness, now oriented to name, year but not month, correctly identifies [facility] HEENT: NC/AT, PERRLA, MMM NECK: Trachea midline, supple LUNGS: exam limited by compliance no adventitious sounds appreciated HEART: RRR no m/r/g ABDOMEN: soft, mild distention, g-tube c/d/i, cholecystostomy tube c/d/i draining bilious fluid EXTREMITIES: 2+ pulses, warm, well-perfused, b/l peripheral edema NEUROLOGICAL: moving all extremities spontaneously PSYCH: dementia appears to be at baseline, mild agitation SKIN: Warm, dry, normal turgor, no rashes or lesions noted LABS Laboratory Results - last 24 hr 07/07/18 09:30 Sodium 140 Potassium 4.5 Chloride 108 H Carbon Dioxide 25 Anion Gap 7 L BUN 25 H Creatinine 0.9 Creat Clearance w eGFR 79.64 Random Glucose 125 H Calcium 7.7 L Total Bilirubin 1.1 H AST 28 ALT 44 Alkaline Phosphatase 180 H Total Protein 5.9 L Albumin 2.1 L HOSPITAL COURSE: Date of Admission:06/28/18 Patient is an 87 y/o M w/ PMHx of ascending cholangitis s/p cholecystostomy placed and removed last October, AD, HTN, aspiration PNA, s/p PEG placement, presented from [facility] w/ SOB found to be septic 2/2 recurrent acute cholangitis. Was intubated and sedated and admitted to ICU. GI, ID, Sx, S/S were consulted. Patient was deemed a non-candidate for surgery as per previous hospitalizations. Patient was initiated on IV meropenem given h/o of MDR organisms. BCx demonstrated polymicrobial infection with ESBL E coli and coag- Staph spp. Cholecystostomy tube was placed by IR. Patient improved symptomatically and was upgraded to medical/surgical floor. MRCP and ERCP were considered but deferred in light of patient's frailty and response to aforementioned therapy. Ursodiol was initiated by GI. Patient was discharged back to [facility] to complete IV ABx there, with referrals for outpatient GI and primary medical care followups. 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 You had a tube placed to drain the infection and were treated with IV antibiotics. The tube will need to remain in place for the foreseeable future. You are being discharged to a nursing facility where you will resume your medications and complete the antibiotic course. Instructions for the facility staff are below. You are additionally being referred for outpatient followup with gastroenterology and primary medical care. Please keep these appointments within 1 week of your discharge. If you experience any new or worsening fever, chills, chest pain, shortness of breath, change in mental status, or any other new or concerning symptom, please return to the Emergency Department. FOR SNF STAFF: Monitor CMP to trend alkaline phosphatase Medications: IV Meropenem 1g BID x 5 further days Ursodiol 300 GT BID Lopressor GT BID Norvasc 5 GT daily Mirtazapine 15 GT HS Olanzapine 2.5 GT BID Klonopin 0.25 GT BID Vit B12 1000 GT daily Vit C 500 GT daily Senna 2 tabs GT HS Systane eye drops OU q12h Tylenol PRN for pain Referrals: Raymond Pal MD [Staff Physician] - 1 Week Naila Beltran MD [Staff Physician] - 1 Week Disposition: S[facility]IOR CARE FACILITY - Home Medications Comprehensive Discharge Medication List: Ambulatory Orders Ascorbate Calcium [Vitamin C] 500 mg GT DAILY 03/11/17 Cyanocobalamin (Vitamin B-12) [Vitamin B-12] 1,000 mcg GT DAILY 03/11/17 Sennosides [Senna] 2 tab GT HS 03/11/17 Metoprolol Tartrate [Lopressor -] 100 mg GT BID tablet 03/26/17 Clonazepam [Klonopin] 0.25 mg GT BID 08/02/17 Mirtazapine [Remeron -] 15 mg GT HS 08/02/17 Amlodipine Besylate [Norvasc -] 5 mg GT DAILY 10/10/17 Acetaminophen [Tylenol] 650 mg PO BID PRN 06/28/18 Propylene Glycol/Peg 400/Pf [Systane 0.3-0.4% Eye Drop] 1 each OU Q12H 06/28/18 Amlodipine Besylate [Norvasc -] 5 mg PO DAILY tablet 07/07/18 Meropenem [Merrem (Restricted To Id) -] 1 gm IVPB BID@0800,2000 vial 07/07/18 Olanzapine [Zyprexa -] 2.5 mg PO BID tablet 07/07/18 Ursodiol [Actigal -] 300 mg PO BID capsule 07/07/18 This patient is new to me today: No Emergency Visit: No Critical Care patient: No - Discharge Referral Referred to [facility] Med P.C.: No
--- NOTE | 2018-07-07 15:55 | PN ---
Progress Note, Physician - Current Medication List Current Medications: Active Medications Acetaminophen (Tylenol -) 650 mg PO Q6H PRN PRN Reason: PAIN LEVEL 6-10 Last Admin: 07/05/18 18:03 Dose: 650 mg Albuterol/Ipratropium (Duoneb -) 1 amp NEB RTID [facility] Last Admin: 07/07/18 14:10 Dose: Not Given Amlodipine Besylate (Norvasc -) 5 mg PO DAILY [facility] Last Admin: 07/07/18 11:45 Dose: 5 mg Clonazepam (Klonopin -) 0.25 mg GT BID [facility] Last Admin: 07/07/18 09:33 Dose: 0.25 mg Heparin Sodium (Porcine) (Heparin -) 5,000 unit SQ TID [facility] Last Admin: 07/07/18 14:24 Dose: 5,000 unit Meropenem 1 gm/ Dextrose 100 mls @ 200 mls/hr IVPB BID@0800,2000 [facility] Last Admin: 07/07/18 09:16 Dose: 200 mls/hr Metoprolol Tartrate (Lopressor -) 100 mg GT BID [facility] Last Admin: 07/07/18 09:29 Dose: 100 mg Mirtazapine (Remeron -) 15 mg GT HS [facility] Last Admin: 07/06/18 21:54 Dose: 15 mg Olanzapine (Zyprexa -) 2.5 mg PO BID [facility] Last Admin: 07/07/18 09:29 Dose: 2.5 mg Ursodiol (Actigal -) 300 mg PO BID [facility] Last Admin: 07/07/18 09:29 Dose: 300 mg - Objective Vital Signs: Vital Signs Temperature 98.0 F 07/07/18 10:00 Pulse Rate 67 07/07/18 10:00 Respiratory Rate 20 07/07/18 10:00 Blood Pressure 155/67 07/07/18 10:00 O2 Sat by Pulse Oximetry (%) 97 07/07/18 09:00 Labs: CBC, BMP 07/06/18 07:00 07/07/18 09:30 INR, PTT INR 1.62 (0.83-1.09) H 06/29/18 05:30
[2018-07-07] MEDS: ACETAMINOPHEN 325 MG TABLET (FP) PO PRN (21:25)
[2018-07-07] MEDS: MIRTAZAPINE 15 MG TABLET (FP) GT SCH (21:26)
[2018-07-08] MEDS: HEPARIN NA (PORCINE) 5,000 UNITS/ML 1ML VIAL SQ SCH (05:16)
[2018-07-08] MEDS: ALBUTEROL SO4 2.5/IPRATROPIUM 0.5 INH SOL 3 ML VIAL.NEB. NEB SCH (07:35)
[2018-07-08] MEDS ORDERED: PT OWN MED DRAWER 7, Y5N ONE (09:14)
--- NOTE | 2018-07-08 10:47 | PN ---
Teaching Attending Note Name of Resident: Shai Sexton ATTENDING PHYSICIAN STATEMENT I saw and evaluated the patient. I reviewed the resident's note and discussed the case with the resident. I agree with the resident's findings and plan as documented. SUBJECTIVE:asymptomatic. denies CP, SOB, fever, chills, N/V/C OBJECTIVE: Last Vital Signs Temp Pulse Resp BP Pulse Ox 97.2 F L 72 20 131/69 97 07/08/18 05:53 07/08/18 05:53 07/08/18 05:53 07/08/18 05:53 07/07/18 21:00 General NAD, CV S1 S2 RRR Lungs CTA anteriorly, poor inspiratory effort Abdomen soft NT/ND +cholcystostomy tube with bile +PEG Extremities no pedal edema ASSESSMENT AND PLAN: 87yo M from [facility] with [facility] cholangitis with cholecystomy tube which was dislodged and then never replaced in October 2017 , hx of aspiration PNA, PEG, HTN and dementia sent to hospital due to SOB noted by staff and found to be in severe sepsis due to suspected PNA and cholangitis 1. severe sepsis due to cholangitis and ESBL bacteremia- afebrile, leukocytosis resolved. +cholecystostomy tube on 06/29 with bile draining. repeat BCx negative. on Meropenem and will need 14days total. clinically improved. alk phos stabilized. will confirm with ID if meropenm should be switched in light of this. started on ursodiol. will need to f/u [facility] GI as outpatient. no plans for ERCP at this time. GI and surgery and IR on board. 2. Acute hypoxic respiratory failure- s/p intubated and extubated 07/04/18. saturating well on 2NC. titrate down oxygen supplementation as tolerated. 3. Lactic acidosis- due to combination of sepsis and hypoxia. resolved 4. JUAN J- due to sepsis. will hydrate.avoid nephrotoxic agents. monitor UOP. 5. Transaminitis- due to sepsis. resolved 6. Hypophosphatemia- resolved 7. Thrombocytopneia- due to sepsis. resolved 8. Hypernatremia- due to dehydration. resolved. cont free water flushes 9. dementia- appears to be at baseline per old notes. will confirm with 10. HTN- resume home mediations. 11. DVT ppx- hep sq 12. family was not in agreement with PICC yesterday. will reach out to family to answer questions they may have regarding dispo
[2018-07-08] MEDS: MEROPENEM 1 GM in DEXTROSE 5%-WATER 100 ML IVPB SCH (10:49)
[2018-07-08] MEDS: OLANZapine 2.5 MG TABLET PO SCH (10:54)
[2018-07-08] MEDS: METOPROLOL TARTRATE 50 MG TABLET (FP) GT SCH (10:54)
[2018-07-08] MEDS: amLODIPine BESYLATE 5 MG TABLET (FP) PO SCH (10:54)
[2018-07-08] MEDS: URSODIOL 300 MG CAPSULE PO SCH (10:54)
[2018-07-08] MEDS: clonazePAM 0.5 MG TABLET GT SCH (10:55)
[2018-07-08] MEDS ORDERED: LACTOBACILLUS ACIDOPHILUS 1 TABLET PO SCH (11:00)
[2018-07-08 13:41] VITALS: BMI 25.0
[2018-07-08] MEDS ORDERED: BANATROL PLUS POWDER PACKET PO SCH (14:00)
--- NOTE | 2018-07-08 14:30 | PN ---
Progress Note, Physician - Current Medication List Current Medications: Active Medications Acetaminophen (Tylenol -) 650 mg PO Q6H PRN PRN Reason: PAIN LEVEL 6-10 Last Admin: 07/07/18 21:25 Dose: 650 mg Albuterol/Ipratropium (Duoneb -) 1 amp NEB RTID [facility] Last Admin: 07/08/18 07:35 Dose: Not Given Amlodipine Besylate (Norvasc -) 5 mg PO DAILY [facility] Last Admin: 07/08/18 10:54 Dose: 5 mg Clonazepam (Klonopin -) 0.25 mg GT BID [facility] Last Admin: 07/08/18 10:55 Dose: 0.25 mg Heparin Sodium (Porcine) (Heparin -) 5,000 unit SQ TID [facility] Last Admin: 07/08/18 05:16 Dose: 5,000 unit Meropenem 1 gm/ Dextrose 100 mls @ 200 mls/hr IVPB BID@0800,2000 [facility] Last Admin: 07/08/18 10:49 Dose: 200 mls/hr Lactobacillus Acidophilus (Bacid -) 1 tab PO DAILY [facility] Metoprolol Tartrate (Lopressor -) 100 mg GT BID [facility] Last Admin: 07/08/18 10:54 Dose: 100 mg Mirtazapine (Remeron -) 15 mg GT HS [facility] Last Admin: 07/07/18 21:26 Dose: 15 mg Olanzapine (Zyprexa -) 2.5 mg PO BID [facility] Last Admin: 07/08/18 10:54 Dose: 2.5 mg Ursodiol (Actigal -) 300 mg PO BID [facility] Last Admin: 07/08/18 10:54 Dose: 300 mg - Objective Vital Signs: Vital Signs Temperature 97.2 F L 07/08/18 05:53 Pulse Rate 72 07/08/18 05:53 Respiratory Rate 20 07/08/18 05:53 Blood Pressure 131/69 07/08/18 05:53 O2 Sat by Pulse Oximetry (%) 97 07/07/18 21:00 Labs: CBC, BMP 07/06/18 07:00 07/07/18 09:30 INR, PTT INR 1.62 (0.83-1.09) H 06/29/18 05:30
[2018-07-08 15:58] VITALS: BP 122/81; PULSE 98; TEMP 98.3
== END 2018-07-08 15:40 | DRG 870 ==
LOC: JER 03:37 → JERBED 12:52 → JICU 06-29 02:32 → J7W 07-05 16:39
PROVIDERS: ADMIT Internal Medicine; ATTEND Internal Medicine
PROC: 5A1955Z Respiratory Ventilation, Greater than 96 Consecutive Hours (ICD-10-PCS; principal; 2018-06-28)
PROC: 5A09357 Assistance with Respiratory Ventilation, Less than 24 Consecutive Hours, Continuous Positive Airway Pressure (ICD-10-PCS; 2018-06-28)
PROC: 05HN33Z Insertion of Infusion Device into Left Internal Jugular Vein, Percutaneous Approach (ICD-10-PCS; 2018-06-28)
PROC: B514YZA Fluoroscopy of Left Jugular Veins using Other Contrast, Guidance (ICD-10-PCS; 2018-06-28)
PROC: 0CHY7BZ Insertion of Airway into Mouth and Throat, Via Natural or Artificial Opening (ICD-10-PCS; 2018-06-28)
PROC: 0F9430Z Drainage of Gallbladder with Drainage Device, Percutaneous Approach (ICD-10-PCS; 2018-06-29)
PROC: 3E0G76Z Introduction of Nutritional Substance into Upper GI, Via Natural or Artificial Opening (ICD-10-PCS; 2018-07-07)
PROC: 05H533Z Insertion of Infusion Device into Right Subclavian Vein, Percutaneous Approach (ICD-10-PCS; 2018-07-08)
PROC: B516YZA Fluoroscopy of Right Subclavian Vein using Other Contrast, Guidance (ICD-10-PCS; 2018-07-08)
DX: A41.9 Sepsis, unspecified organism (principal); J96.01 Acute respiratory failure with hypoxia; K80.65 Calculus of gallbladder and bile duct with chronic cholecystitis with obstruction; N17.9 Acute kidney failure, unspecified; K80.33 Calculus of bile duct with acute cholangitis with obstruction; E87.2 Acidosis; E87.0 Hyperosmolality and hypernatremia; F02.81 Dementia in other diseases classified elsewhere, unspecified severity, with behavioral disturbance; Z66 Do not resuscitate; R65.20 Severe sepsis without septic shock; I10 Essential (primary) hypertension; D69.6 Thrombocytopenia, unspecified; E83.39 Other disorders of phosphorus metabolism; D53.9 Nutritional anemia, unspecified; Z93.1 Gastrostomy status; G30.9 Alzheimer's disease, unspecified; Z87.891 Personal history of nicotine dependence; H35.30 Unspecified macular degeneration
CPT/HCPCS: 36415; 36569; 36600; 47490; 71045-TC-FY; 71250-TC; 74018-TC-FY; 74176-TC; 76000-TC-FY; 76098-TC-FY; 76705-TC; 76998-TC; 77001-TC-FY; 80053; 81003; 82150; 82248; 82607; 82746; 82803; 82962; 83605; 83690; 83735; 83880; 84100; 84484; 85025; 85027; 85610; 86140; 87040; 87045; 87046; 87186; 87899; 93005; 93010; 94002; 94640; 97161-GP; 99285-25; A4358; C1729; C1751; C1769; G0480; J0131; J1644; J7030

== ENCOUNTER 2018-09-15 13:02 | Inpatient (IN) | payer OTHER ==
--- NOTE | 2018-09-15 13:20 | PDOC ---
History of Present Illness - General Chief Complaint: SIRS, Suspected/Possible Stated Complaint: FEVER NAUSEA VOMITING Time Seen by Provider: 09/15/18 13:20 - History of Present Illness Initial Comments: 09/15/18 13:37 The patient is an 87 year old male with a history of HTN, Anemia, Dementia who presents from his [place] [facility] for evaluation of fever. Per the patient's [place], the patient has been experiencing vomiting with reported abdominal pain over the past 1 day. He was noted to be febrile today prompting his presentation to the ED for further evaluation. They note that he pulled out his G-tube several days ago and it was replaced without issue. ROS is unobtainable due to the patient's dementia. Past History - Past Medical History Allergies/Adverse Reactions: Allergies Allergy/AdvReac Type Severity Reaction Status Date / Time No Known Allergies Allergy Verified 06/28/18 04:51 Home Medications: Ambulatory Orders Ascorbate Calcium [Vitamin C] 500 mg GT DAILY 03/11/17 Cyanocobalamin (Vitamin B-12) [Vitamin B-12] 1,000 mcg GT DAILY 03/11/17 Metoprolol Tartrate [Lopressor -] 100 mg GT BID tablet 03/26/17 Clonazepam [Klonopin] 0.25 mg GT BID 08/02/17 Mirtazapine [Remeron -] 15 mg GT HS 08/02/17 Acetaminophen [Tylenol] 650 mg PO BID PRN 06/28/18 Propylene Glycol/Peg 400/Pf [Systane 0.3-0.4% Eye Drop] 1 each OU Q12H 06/28/18 Amlodipine Besylate [Norvasc -] 5 mg PO DAILY tablet 07/07/18 Ursodiol [Actigal -] 300 mg PO BID capsule 07/07/18 Calcium Carbonate/Vitamin D3 [Calcium 500 + Vit D3 400 Tab] 1 each PO DAILY Mupirocin Cream [Bactroban 2% Cream -] 1 applic TP DAILY 09/15/18 Anemia: Yes (b12) COPD: No DVT: No Dementia: Yes (Alzheimers) GI Disorders: Yes (cholecystitis, ERCP w/stone extraction 2014) HTN: Yes Psychiatric Problems: Yes Seizures: Yes (depression,pshycosis (dementia)) - Surgical History Abdominal Surgery: Yes (g.tube,GB TUBE) - Suicide/Smoking/Psychosocial Hx Smoking History: Never smoked Have you smoked in the past 12 months: No If you are a former smoker, when did you quit?: 30 YRS AGO - 1-2ppd x 20-30 yrs Hx Alcohol Use: No Drug/Substance Use Hx: No Substance Use Type: None Hx Substance Use Treatment: No Review of Systems - Review of Systems Able to Perform ROS?: No (Dementia) *Physical Exam - Physical Exam Comments: 09/15/18 13:39 General Appearance: Nourished. In Mild Apparent Distress HEENT: EOMI, HALEY. No Pharyngeal Erythema, Tonsillar Exudate, Tonsillar Erythema Neck: No Cervical Lymphadenopathy Respiratory/Chest: Lungs Clear, Normal Breath Sounds. Bibasilar Rales noted on exam. No Rhonchi, Wheezing Cardiovascular: Regular Rhythm, Tachycardic Rate. No Murmur, Gallops, Rubs Gastrointestinal/Abdominal: Normal Bowel Sounds, Soft. G-Tube in place. No Guarding, Rebound, Tenderness Musculoskeletal: No CVA Tenderness Extremity: Normal Capillary Refill Integumentary: Normal Color, Dry, Warm Neurologic: Awake and moving all four extremities. Non-verbal ED Treatment Course - LABORATORY CBC & Chemistry Diagram: 09/15/18 13:32 09/15/18 13:32 Medical Decision Making - Medical Decision Making 09/15/18 13:44 The patient is an 87 year old male with a history of HTN, Anemia, Dementia who presents from his [place] [facility] for evaluation of fever. Differential includes but is not limited to: Sepsis, Pneumonia, UTI, Infectious, Metabolic Derangement. Given the patient's history and physical exam, we will obtain a cbc, cmp, troponin, caogs, vbg, blood cultures, ua, urine cultures, chest plain film to evaluate further. We will treat with iv fluids, tylenol, vanc, and zosyn and continue to monitor and reassess while here in the ED. 09/15/18 17:46 CBC demonstrates a wbc elevation to 14. CMP demonstrates a tbili of 4.4 and elevations in the LFTs. Troponin is unremarkable. Lactate is elevated to 2.7. Chest plain film is unremarkable. CT abdomen/pelvis demonstrates fluid around the gallbladder with dilation concerning for a recurrent acute cholangitis and cholecysitis as read by our radiologist. We discussed the case with Dr. Joe with IR who evaluated the patient and will take the patient to IR tomorrow. We will add meropenem to the patient's antibiotic coverage. We discussed the case with the admitting team who accepted the patient for admission. *DC/Admit/Observation/Transfer Diagnosis at time of Disposition: Acute cholangitis due to calculus of bile duct with obstruction Sepsis Qualifiers: Sepsis type: sepsis due to unspecified organism Qualified Code(s): A41.9 - Sepsis, unspecified organism - Discharge Dispostion Condition at time of disposition: Guarded Decision to Admit order: Yes - Referrals - Patient Instructions - Post Discharge Activity
[2018-09-15 13:24] VITALS: BMI 24.3
[2018-09-15] MEDS ORDERED: PIPERACILLIN/TAZOB 4.5 GM 4.5 GM in DEXTROSE 5%-WATER 100 ML IVPB ONE (13:27)
[2018-09-15] MEDS ORDERED: ACETAMINOPHEN 1000 MG/100 ML VIAL (NON FORMULARY) IVPB ONE (13:27)
[2018-09-15] MEDS ORDERED: VANCOMYCIN 1,000 MG in DEXTROSE 5%-WATER - 250 ML IVPB ONE (13:27)
[2018-09-15] MEDS ORDERED: SODIUM CHLORIDE 1,000 ML IV STA ×2 (13:27→16:44)
--- NOTE | 2018-09-15 13:28 | PDOC ---
Documentation entered by Lisa May SCRIBE, acting as scribe for Leslie Leblanc MD. Leslie Leblanc MD: This documentation has been prepared by the Lalo bryan Nirvannie, SCRIBE, under my direction and personally reviewed by me in its entirety. I confirm that the documentation accurately reflects all work, treatment, procedures, and medical decision making performed by me. Attending Attestation - Resident Resident Name: Shai Taylor - ED Attending Attestation I have performed the following: I have examined & evaluated the patient, The case was reviewed & discussed with the resident, I agree w/resident's findings & plan - HPI HPI: 09/15/18 13:57 The patient is a 87 year old female, with a significant past medical history of HTN, Anemia, Dementia, recurrent aspiration pneumonia, and G-tube placement, who presents to the emergency department with, abdominal pain, vomiting with new onset fever. As per NH, patient pulled out G-tube several days ago and it was recently replaced. Allergies: NKDA - Physicial Exam PE: 09/15/18 14:46 GENERAL: +Uncomfortably appearing. Moaning. Awake, alert. HEAD: No signs of trauma NECK: Normal ROM, supple, no lymphadenopathy, JVD, or masses LUNGS: +Rhonchi blt. HEART: +Tachycardic. no murmurs, rubs or gallops ABDOMEN: Soft, nontender, normoactive bowel sounds. No guarding, no rebound. No masses EXTREMITIES: Normal range of motion, no edema. No clubbing or cyanosis. No cords, erythema, or tenderness NEUROLOGICAL: Cranial nerves II through XII grossly intact. +Sleeping but, arousable to loud voice. SKIN: Warm, Dry, normal turgor, no rashes or lesions noted. - Medical Decision Making 09/15/18 14:51 Pt presents to the ED complaining of fever. History of recent G tube removal and replacement. Abdomen is non tender, but patient is complaining of abdominal pain. Febrile to 103 in the Ed. Labs show elevated bilirubin and LFTs. Previous episodes of cholecystitis. Will check CT abdomen and US and admit to medicine for continued management. Started on broad spectrum antibiotics.
[2018-09-15 13:52] LABS: VENOUS PC02 36.4 mmHg (41-51); VENOUS PH 7.43 (7.31-7.41); VENOUS PO2 43.3 mmHg (30-40)
[2018-09-15] MEDS ORDERED: ACETAMINOPHEN INJECTION 100 ML IVPB ONE (13:58)
[2018-09-15] MEDS ORDERED: PIPERACILLIN/TAZOB 4.5 GM 4.5 GM/100 ML BAG IVPB ONE (13:59)
[2018-09-15] MEDS ORDERED: VANCOMYCIN 1 GRAM (PRE-DOCKED) 1,000 MG/250 ML BAG IVPB ONE (13:59)
[2018-09-15 14:02] LABS: BASO % 0.1 % (0-2.0); EOS % 0.1 % (0-4.5); HEMATOCRIT 34.9 % (35.4-49); HEMOGLOBIN 11.8 GM/dL (11.7-16.9); LYMPH % 2.2 % (8-40); MCH 34.1 pg (25.7-33.7); MCHC 33.8 g/dl (32.0-35.9); MEAN CELL VOLUME 100.9 fl (80-96); MONO % 0.7 % (3.8-10.2); NEUT % 96.9 % (42.8-82.8); PLATELET COUNT 189 K/MM3 (134-434); RBC 3.46 M/mm3 (4.00-5.60); RDW 13.9 % (11.9-15.9); WHITE BLOOD COUNT 13.5 K/mm3 (4.0-10.0)
[2018-09-15 14:13] LABS: INR 1.19 (0.83-1.09); PROTHROMBIN TIME (PATIENT) 14.1 SEC (9.7-13.0)
[2018-09-15 14:16] LABS: ACTIVATED PTT 27.8 SECONDS (25.2-36.5)
[2018-09-15 14:21] LABS: BILIRUBIN,TOTAL 4.4 mg/dL (0.2-1); BLOOD UREA NITROGEN 34.1 mg/dL (7-18); CALCIUM 8.4 mg/dL (8.5-10.1); CREATININE 1.2 mg/dL (0.55-1.3); POTASSIUM 4.1 mmol/L (3.5-5.1)
[2018-09-15 14:25] LABS: EPI CELLS 2.1 /HPF (0-5/HPF); HYALINE CASTS 11 /lpf (0-8); URINE APPEARANCE CLEAR; URINE BACTERIA 2.5 /hpf (NEGATIVE); URINE BILIRUBIN 2+ (NEGATIVE); URINE COLOR DK YELLOW; URINE GLUCOSE (UA) NEGATIVE (NEGATIVE); URINE KETONE NEGATIVE (NEGATIVE); URINE LEUK ESTERASE TRACE (NEGATIVE); URINE NITRITE NEGATIVE (NEGATIVE); URINE PROTEIN 1+ (NEGATIVE); URINE RBC 59 /hpf (0-4); URINE WBC 1 /hpf (0-5)
[2018-09-15] MEDS ORDERED: morphine CARPU-JECT 2 MG/1 ML DISP.SYRIN IVPUSH ONE (14:39)
[2018-09-15] MEDS ORDERED: MORPHINE SULFATE 2 MG/ML VIAL ONE (15:01)
[2018-09-15 15:51] LABS: ANISOCYTOSIS 1+; MACROCYTOSIS 0; PLATELET ESTIMATE NORMAL; TEAR DROP CELLS 1+
[2018-09-15] MEDS ORDERED: CEFEPIME HCL/D5W 1 GM/50 ML BAG IVPB ONE (16:46)
[2018-09-15] MEDS ORDERED: MEROPENEM 1 GM in DEXTROSE 5%-WATER 100 ML IVPB ONE (16:54)
--- NOTE | 2018-09-15 17:34 | HP ---
CHIEF COMPLAINT: PCP: HISTORY OF PRESENT ILLNESS: This is an 87 year old male with PMH of multiple admissions for acute cholecustitis s/p cholecystostomy tube, HTN, Anemia, Dementia who [place] due to abd pain, n/v and fever. Patient had been admitted several times over the past few years for cute cholecystitis, most recently 3 mo ago and ever time was deemed poor surgical candidate. he had cholecystostomy tube plaed several time in the past including 3 mo ago but continues to pull it out. he now presents w/o cholecystostomy tube, with fever 103.5, leukocytosis and acute cholecystitis on ct ap. Was previously treated with meropenem due to pmh of esbl. ER course was notable for: (1)labs (2)cxr, ct ap (3)meropenecalvin zosyn Recent Travel: none PAST MEDICAL HISTORY: as above PAST SURGICAL HISTORY: as above Social History: [place] Smoking: no Alcohol:no Drugs: no Family History: unknown Allergies No Known Allergies Allergy (Verified 06/28/18 04:51) HOME MEDICATIONS: Home Medications Medication Instructions Recorded Ascorbate Calcium [Vitamin C] 500 mg GT DAILY 03/11/17 Cyanocobalamin (Vitamin B-12) 1,000 mcg GT DAILY 03/11/17 [Vitamin B-12] Metoprolol Tartrate [Lopressor -] 100 mg GT BID tablet 03/26/17 Clonazepam [Klonopin] 0.25 mg GT BID 08/02/17 Mirtazapine [Remeron -] 15 mg GT HS 08/02/17 Acetaminophen [Tylenol] 650 mg PO BID PRN 06/28/18 Propylene Glycol/Peg 400/Pf 1 each OU Q12H 06/28/18 [Systane 0.3-0.4% Eye Drop] Amlodipine Besylate [Norvasc -] 5 mg PO DAILY tablet 07/07/18 Ursodiol [Actigal -] 300 mg PO BID capsule 07/07/18 Calcium Carbonate/Vitamin D3 1 each PO DAILY 09/15/18 [Calcium 500 + Vit D3 400 Tab] Mupirocin Cream [Bactroban 2% 1 applic TP DAILY 09/15/18 Cream -] REVIEW OF SYSTEMS unable to obtain PHYSICAL EXAMINATION Vital Signs - 24 hr 09/15/18 09/15/18 09/15/18 13:20 14:09 14:59 Temperature 103.5 F H 103.5 F H 102.5 F H Pulse Rate 102 H Respiratory 19 Rate Blood Pressure 161/67 O2 Sat by Pulse 95 Oximetry (%) GENERAL: lethargic HEAD: Normal with no signs of trauma. EYES: +scleral icterus EARS, NOSE, THROAT: dry mucous membranes. NECK: supple LUNGS: Breath sounds equal, clear to auscultation bilaterally. HEART: tachy regular, normal S1 and S2 ABDOMEN: normoactive bowel sounds, distended, soft, + guarding ruq. LOWER EXTREMITIES: warm, well-perfused. No peripheral edema. NEUROLOGICAL: lethargic PSYCHIATRIC: unable to assess SKIN: Warm, dry Laboratory Results - last 24 hr 09/15/18 09/15/18 09/15/18 13:32 13:32 13:32 WBC 13.5 H RBC 3.46 L Hgb 11.8 Hct 34.9 L MCV 100.9 H MCH 34.1 H MCHC 33.8 RDW 13.9 Plt Count 189 MPV 9.0 D Absolute Neuts (auto) 13.1 H Neutrophils % 96.9 H D Neutrophils % (Manual) 79.8 Band Neutrophils % 11.1 Lymphocytes % 2.2 L D Lymphocytes % (Manual) 4.1 L D Monocytes % 0.7 L D Monocytes % (Manual) 3 L Eosinophils % 0.1 D Eosinophils % (Manual) 0.0 D Basophils % 0.1 Basophils % (Manual) 0.0 Myelocytes % (Man) 0 Promyelocytes % (Man) 0 Blast Cells % (Manual) 0 Nucleated RBC % 0 Metamyelocytes 0 Hypochromia 0 Platelet Estimate Normal Platelet Comment Present Polychromasia 0 Poikilocytosis 1+ Anisocytosis 1+ Microcytosis 1+ Macrocytosis 0 Spherocytes 1+ Tear Drop Cells 1+ PT with INR 14.10 H INR 1.19 H PTT (Actin FS) 27.8 VBG pH 7.43 H POC VBG pCO2 36.4 L POC VBG pO2 43.3 H VBG HCO3 23.9 VBG O2 Sat (Anjali) 78.1 VBG Base Excess 0.3 Sodium Potassium Chloride Carbon Dioxide Anion Gap BUN Creatinine Est GFR (CKD-EPI)AfAm Est GFR (CKD-EPI)NonAf Random Glucose Lactic Acid Calcium Total Bilirubin AST ALT Alkaline Phosphatase Troponin I Total Protein Albumin Urine Color Urine Appearance Urine pH Ur Specific [place] Urine Protein Urine Glucose (UA) Urine Ketones Urine Blood Urine Nitrite Urine Bilirubin Urine Urobilinogen Ur Leukocyte Esterase Urine WBC (Auto) Urine RBC (Auto) Urine Casts (Auto) U Epithel Cells (Auto) Urine Bacteria (Auto) 09/15/18 09/15/18 09/15/18 13:32 13:32 13:32 WBC RBC Hgb Hct MCV MCH MCHC RDW Plt Count MPV Absolute Neuts (auto) Neutrophils % Neutrophils % (Manual) Band Neutrophils % Lymphocytes % Lymphocytes % (Manual) Monocytes % Monocytes % (Manual) Eosinophils % Eosinophils % (Manual) Basophils % Basophils % (Manual) Myelocytes % (Man) Promyelocytes % (Man) Blast Cells % (Manual) Nucleated RBC % Metamyelocytes Hypochromia Platelet Estimate Platelet Comment Polychromasia Poikilocytosis Anisocytosis Microcytosis Macrocytosis Spherocytes Tear Drop Cells PT with INR INR PTT (Actin FS) VBG pH POC VBG pCO2 POC VBG pO2 VBG HCO3 VBG O2 Sat (Anjali) VBG Base Excess Sodium 140 Potassium 4.1 Chloride 109 H Carbon Dioxide 25 Anion Gap 5 L BUN 34.1 H Creatinine 1.2 Est GFR (CKD-EPI)AfAm 62.20 Est GFR (CKD-EPI)NonAf 53.67 Random Glucose 112 H Lactic Acid 2.7 H* Calcium 8.4 L Total Bilirubin 4.4 H AST 164 H ALT 211 H Alkaline Phosphatase 336 H Troponin I < 0.02 Total Protein 7.0 Albumin 3.0 L Urine Color Urine Appearance Urine pH Ur Specific [place] Urine Protein Urine Glucose (UA) Urine Ketones Urine Blood Urine Nitrite Urine Bilirubin Urine Urobilinogen Ur Leukocyte Esterase Urine WBC (Auto) Urine RBC (Auto) Urine Casts (Auto) U Epithel Cells (Auto) Urine Bacteria (Auto) 09/15/18 13:50 WBC RBC Hgb Hct MCV MCH MCHC RDW Plt Count MPV Absolute Neuts (auto) Neutrophils % Neutrophils % (Manual) Band Neutrophils % Lymphocytes % Lymphocytes % (Manual) Monocytes % Monocytes % (Manual) Eosinophils % Eosinophils % (Manual) Basophils % Basophils % (Manual) Myelocytes % (Man) Promyelocytes % (Man) Blast Cells % (Manual) Nucleated RBC % Metamyelocytes Hypochromia Platelet Estimate Platelet Comment Polychromasia Poikilocytosis Anisocytosis Microcytosis Macrocytosis Spherocytes Tear Drop Cells PT with INR INR PTT (Actin FS) VBG pH POC VBG pCO2 POC VBG pO2 VBG HCO3 VBG O2 Sat (Anjali) VBG Base Excess Sodium Potassium Chloride Carbon Dioxide Anion Gap BUN Creatinine Est GFR (CKD-EPI)AfAm Est GFR (CKD-EPI)NonAf Random Glucose Lactic Acid Calcium Total Bilirubin AST ALT Alkaline Phosphatase Troponin I Total Protein Albumin Urine Color Dk yellow Urine Appearance Clear Urine pH 5.0 Ur Specific [place] 1.018 Urine Protein 1+ H Urine Glucose (UA) Negative Urine Ketones Negative Urine Blood 2+ H Urine Nitrite Negative Urine Bilirubin 2+ H Urine Urobilinogen 1.0 Ur Leukocyte Esterase Trace Urine WBC (Auto) 1 Urine RBC (Auto) 59 Urine Casts (Auto) 11 U Epithel Cells (Auto) 2.1 Urine Bacteria (Auto) 2.5 ASSESSMENT/PLAN: This is an 87 year old male with PMH of multiple admissions for acute cholecustitis s/p cholecystostomy tube, HTN, Anemia, Dementia who [place] due to abd pain, n/v and fever. severe sespsis due to recurrent acure cholecystitis htn anemia dementia -s/p zosyn, meropene, vanc in ed, will need meropenem to cover esbl from prior cultures. f/u ID -ivf hydration 30 cc/kg -not hypotensive but would hold bb and norvasc for now -IR perc cholecustostomy (planned for tomorrow) -npo -surgery reeval for cholecystectomy in light of multiple admissions -gi eval -tele monitoring Visit type - Emergency Visit Emergency Visit: Yes Care time: The patient presented to the Emergency Department on the above date and was hospitalized for further evaluation of their emergent condition. - New Patient This patient is new to me today: Yes Date on this admission: 09/15/18 - Critical Care Critical Care patient: No
--- NOTE | 2018-09-15 17:37 | CONSULT ---
Consultation: REQUESTING PROVIDER: CONSULT REQUEST: We have been asked to medically evaluate this patient for ICU admission HISTORY OF PRESENT ILLNESS: History limited, as patient is minimally communicative. Patient is an 87 year old male with history of Alzheimer's dementia, choledocholithiasis s/p cholecystostomy placement, PEG tube placement, hypertension, recurrent aspiration pneumonia presented with abdominal pain. Patient's cholecystostomy tube was reportedly ripped out three days ago. Since that time, patient has been vomiting, and was febrile. Patient was febrile to 103.5F, tachycardic to 102BPM upon admission. He is minimally responsive, however groans to pain. CT scan reveals cholodocholithiasis with associated biliary tract dilation (seen on previous study in 06/2018). However, interval intrahepatic pneumobilia noted since removal of cholecystostomy tube. REVIEW OF SYSTEMS: Unable to obtain due to patient's clinical condition, minimally responsive. Vital Signs - 24 hr 09/15/18 09/15/18 09/15/18 13:20 14:09 14:59 Temperature 103.5 F H 103.5 F H 102.5 F H Pulse Rate 102 H Respiratory 19 Rate Blood Pressure 161/67 O2 Sat by Pulse 95 Oximetry (%) GENERAL: Awake, in acute distress. HEENT: Normocephalic, atraumatic. PERRLA, EOMI. Sclera anicteric. Dry mucous membranes. LUNGS: Poor inspiratory effort, and air entry bilaterally. Faint rhonchi auscultated bilaterally. HEART: Regular rate and rhythm, normal S1 and S2. Holosystolic murmur auscultated at apex. ABDOMEN: Soft, distended, diffusely tender to palpation, worst at right upper quadrant. Hypoactive bowel sounds x4 quadrants. No guarding, no rebound tenderness. Left upper quadrant PEG tube in place without surrounding erythema or drainage. Area of prior cholecystostomy tube clean, dry. UPPER EXTREMITIES: 2+ radial pulses, warm, well-perfused. LOWER EXTREMITIES: 1+ dorsalis pedis pulses, warm, well-perfused. No peripheral edema bilaterally. NEUROLOGICAL: Patient is retracted, groans in pain. Laboratory Results - last 24 hr 09/15/18 09/15/18 09/15/18 13:32 13:32 13:32 WBC 13.5 H RBC 3.46 L Hgb 11.8 Hct 34.9 L MCV 100.9 H MCH 34.1 H MCHC 33.8 RDW 13.9 Plt Count 189 MPV 9.0 D Absolute Neuts (auto) 13.1 H Neutrophils % 96.9 H D Neutrophils % (Manual) 79.8 Band Neutrophils % 11.1 Lymphocytes % 2.2 L D Lymphocytes % (Manual) 4.1 L D Monocytes % 0.7 L D Monocytes % (Manual) 3 L Eosinophils % 0.1 D Eosinophils % (Manual) 0.0 D Basophils % 0.1 Basophils % (Manual) 0.0 Myelocytes % (Man) 0 Promyelocytes % (Man) 0 Blast Cells % (Manual) 0 Nucleated RBC % 0 Metamyelocytes 0 Hypochromia 0 Platelet Estimate Normal Platelet Comment Present Polychromasia 0 Poikilocytosis 1+ Anisocytosis 1+ Microcytosis 1+ Macrocytosis 0 Spherocytes 1+ Tear Drop Cells 1+ PT with INR 14.10 H INR 1.19 H PTT (Actin FS) 27.8 VBG pH 7.43 H POC VBG pCO2 36.4 L POC VBG pO2 43.3 H VBG HCO3 23.9 VBG O2 Sat (Anjali) 78.1 VBG Base Excess 0.3 Sodium Potassium Chloride Carbon Dioxide Anion Gap BUN Creatinine Est GFR (CKD-EPI)AfAm Est GFR (CKD-EPI)NonAf Random Glucose Lactic Acid Calcium Total Bilirubin AST ALT Alkaline Phosphatase Troponin I Total Protein Albumin Urine Color Urine Appearance Urine pH Ur Specific [place] Urine Protein Urine Glucose (UA) Urine Ketones Urine Blood Urine Nitrite Urine Bilirubin Urine Urobilinogen Ur Leukocyte Esterase Urine WBC (Auto) Urine RBC (Auto) Urine Casts (Auto) U Epithel Cells (Auto) Urine Bacteria (Auto) 09/15/18 09/15/18 09/15/18 13:32 13:32 13:32 WBC RBC Hgb Hct MCV MCH MCHC RDW Plt Count MPV Absolute Neuts (auto) Neutrophils % Neutrophils % (Manual) Band Neutrophils % Lymphocytes % Lymphocytes % (Manual) Monocytes % Monocytes % (Manual) Eosinophils % Eosinophils % (Manual) Basophils % Basophils % (Manual) Myelocytes % (Man) Promyelocytes % (Man) Blast Cells % (Manual) Nucleated RBC % Metamyelocytes Hypochromia Platelet Estimate Platelet Comment Polychromasia Poikilocytosis Anisocytosis Microcytosis Macrocytosis Spherocytes Tear Drop Cells PT with INR INR PTT (Actin FS) VBG pH POC VBG pCO2 POC VBG pO2 VBG HCO3 VBG O2 Sat (Anjali) VBG Base Excess Sodium 140 Potassium 4.1 Chloride 109 H Carbon Dioxide 25 Anion Gap 5 L BUN 34.1 H Creatinine 1.2 Est GFR (CKD-EPI)AfAm 62.20 Est GFR (CKD-EPI)NonAf 53.67 Random Glucose 112 H Lactic Acid 2.7 H* Calcium 8.4 L Total Bilirubin 4.4 H AST 164 H ALT 211 H Alkaline Phosphatase 336 H Troponin I < 0.02 Total Protein 7.0 Albumin 3.0 L Urine Color Urine Appearance Urine pH Ur Specific [place] Urine Protein Urine Glucose (UA) Urine Ketones Urine Blood Urine Nitrite Urine Bilirubin Urine Urobilinogen Ur Leukocyte Esterase Urine WBC (Auto) Urine RBC (Auto) Urine Casts (Auto) U Epithel Cells (Auto) Urine Bacteria (Auto) 09/15/18 13:50 WBC RBC Hgb Hct MCV MCH MCHC RDW Plt Count MPV Absolute Neuts (auto) Neutrophils % Neutrophils % (Manual) Band Neutrophils % Lymphocytes % Lymphocytes % (Manual) Monocytes % Monocytes % (Manual) Eosinophils % Eosinophils % (Manual) Basophils % Basophils % (Manual) Myelocytes % (Man) Promyelocytes % (Man) Blast Cells % (Manual) Nucleated RBC % Metamyelocytes Hypochromia Platelet Estimate Platelet Comment Polychromasia Poikilocytosis Anisocytosis Microcytosis Macrocytosis Spherocytes Tear Drop Cells PT with INR INR PTT (Actin FS) VBG pH POC VBG pCO2 POC VBG pO2 VBG HCO3 VBG O2 Sat (Anjali) VBG Base Excess Sodium Potassium Chloride Carbon Dioxide Anion Gap BUN Creatinine Est GFR (CKD-EPI)AfAm Est GFR (CKD-EPI)NonAf Random Glucose Lactic Acid Calcium Total Bilirubin AST ALT Alkaline Phosphatase Troponin I Total Protein Albumin Urine Color Dk yellow Urine Appearance Clear Urine pH 5.0 Ur Specific [place] 1.018 Urine Protein 1+ H Urine Glucose (UA) Negative Urine Ketones Negative Urine Blood 2+ H Urine Nitrite Negative Urine Bilirubin 2+ H Urine Urobilinogen 1.0 Ur Leukocyte Esterase Trace Urine WBC (Auto) 1 Urine RBC (Auto) 59 Urine Casts (Auto) 11 U Epithel Cells (Auto) 2.1 Urine Bacteria (Auto) 2.5 Active Medications Generic Name Dose Route Start Last Admin Trade Name Freq PRN Reason Stop Dose Admin Sodium Chloride 1,000 mls @ 1,000 mls/hr 09/15/18 16:44 Normal Saline - IV 09/15/18 17:43 ASDIR STA ASSESSMENT/PLAN: Patient is an 87 year old male with history of Alzheimer's dementia, cholecystostomy placement, PEG tube placement, hypertension, recurrent aspiration pneumonia presented with abdominal pain. Alzheimer's dementia Sepsis S/P cholecystostomy tube removal -Sepsis secondary to cholecystitis vs cholangitis. WBC 13.5. Lactic 2.7. Total bilirubin 4.4, AST 164/ ALT 211/ Alkaline phosphatase 336. Chest radiograph reveals no acute infiltrates. Urinalysis not impressive for urinary tract infection. -Patient will likely require re-placement of cholecystostomy tube with Interventional Radiology -Patient received Vancomycin, Zosyn, Meropenem in ED -Patient received 2 liter bolus normal saline. Currently receiving LR at 125mL/ hour. -Follow gastroenterology, general surgery, infectious disease recommendations Disposition: Patient does not require ICU level of care at this time. Please re-consult as necessary. Visit type - Emergency Visit Emergency Visit: Yes ED Registration Date: 09/15/18 Care time: The patient presented to the Emergency Department on the above date and was hospitalized for further evaluation of their emergent condition. - New Patient This patient is new to me today: Yes Date on this admission: 09/15/18 - Critical Care Critical Care patient: No
--- NOTE | 2018-09-15 18:45 | PN ---
Teaching Attending Note Name of Resident: Delmy Olivera ATTENDING PHYSICIAN STATEMENT I saw and evaluated the patient. I reviewed the resident's note and discussed the case with the resident. I agree with the resident's findings and plan as documented. CC: I'm having pain HPI: Mr Menezes is an 87 year old gentleman who presents from [facility] with abdominal pain. Cannot obtain much history from patient, he states that he is having RUQ pain but otherwise moans and looks uncomfortable. He has a history of cholangitis with cholecystostomy tube placement. He was discharged from this hospital in 07/2018 on IV antibiotics and tube in place. He also has a g-tube in place. His g-tube was pulled out earlier this week but was replaced without difficulty, however at some point his cholecystotomy tube was also pulled out as well. It is unclear exactly when this happened. After this though he developed abdominal pain and was sent here for further evaluation. 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 Cardio/Vascular HTN Gastrointestinal Other Hepatobiliary Cholelithiasis,Cholecystitis, Choledocholithiasis Renal/ Renal Inusuff Infectious Disease Other Psych Depression,Psychosis Additional Medical History macular degeneration (legally blind) Past Surgical History Past Surgical History Hernia Repair,Upper Endoscopy Home Medications Medication Instructions Recorded Ascorbate Calcium [Vitamin C] 500 mg GT DAILY 03/11/17 Cyanocobalamin (Vitamin B-12) 1,000 mcg GT DAILY 03/11/17 [Vitamin B-12] Metoprolol Tartrate [Lopressor -] 100 mg GT BID tablet 03/26/17 Clonazepam [Klonopin] 0.25 mg GT BID 08/02/17 Mirtazapine [Remeron -] 15 mg GT HS 08/02/17 Acetaminophen [Tylenol] 650 mg PO BID PRN 06/28/18 Propylene Glycol/Peg 400/Pf 1 each OU Q12H 06/28/18 [Systane 0.3-0.4% Eye Drop] Amlodipine Besylate [Norvasc -] 5 mg PO DAILY tablet 07/07/18 Ursodiol [Actigal -] 300 mg PO BID capsule 07/07/18 Calcium Carbonate/Vitamin D3 1 each PO DAILY 09/15/18 [Calcium 500 + Vit D3 400 Tab] Mupirocin Cream [Bactroban 2% 1 applic TP DAILY 09/15/18 Cream -] Social History Smoking history Never smoked Have you smoked in the past 12 No months Hx Alcohol Use No History of Substance Use None ADL Support Services FHx: unable to obtain ROS: unable to obtain OBJECTIVE: Last Vital Signs Temp Pulse Resp BP Pulse Ox 39.2 C H 102 H 19 161/67 95 09/15/18 14:59 09/15/18 13:20 09/15/18 13:20 09/15/18 13:20 09/15/18 13:20 Gen: appears uncomfortable, moaning HEENT: perrl, dry mucous membranes Pulm: ctab w/o w/r/r CV: tachycardic but regular, no m/r/g Abd: +bs, distention, TTP in RUQ with guarding Ext: no c/c/e CBC, BMP 09/15/18 13:32 09/15/18 13:32 ASSESSMENT AND PLAN: Problem List - Problems (1) Sepsis Assessment/Plan: -as evidenced by fever, tachycardia, leukocytosis, and lactic acidosis -admit to telemetry -hydrate with IVF -start zosyn -consult ID Code(s): A41.9 - SEPSIS, UNSPECIFIED ORGANISM Qualifiers: Sepsis type: sepsis due to unspecified organism Qualified Code(s): A41.9 - Sepsis, unspecified organism (2) Acute cholangitis due to calculus of bile duct with obstruction Assessment/Plan: -patient with admission 3 months ago and discharged with cholechystostomy tube in place -has been pulled out in interval time -now with recurrence of infection and sepsis -admit to telemetry -IR aware and planning for replacement -hydration -begin zosyn currently, ID to see and change antibiotics if needed -will reconsult surgery, last admission states patient is a poor surgical candidate -will have surgery reassess as this is becoming a chronic problem and surgical treatment would be definitive Code(s): K80.33 - CALCULUS OF BILE DUCT W ACUTE CHOLANGITIS WITH OBSTRUCTION (3) Dementia with behavioral disturbance Assessment/Plan: -monitor -continue remeron Code(s): F03.91 - UNSPECIFIED DEMENTIA WITH BEHAVIORAL DISTURBANCE Qualifiers: Dementia type: unspecified type Qualified Code(s): F03.91 - Unspecified dementia with behavioral disturbance (4) Transaminitis Assessment/Plan: -with hyperbilirubinemia -secondary to acute cholecystitis -treatment as above Code(s): R74.0 - NONSPEC ELEV OF LEVELS OF TRANSAMNS & LACTIC ACID DEHYDRGNSE (5) Hypertension Assessment/Plan: -on metoprolol as an outpatient -will allow permissive HTN currently -if remains elevated, will restart but want to control sepsis first Code(s): I10 - ESSENTIAL (PRIMARY) HYPERTENSION Qualifiers: Hypertension type: essential hypertension Qualified Code(s): I10 - Essential (primary) hypertension
[2018-09-15] MEDS: LACTATED RINGERS SOLUTION 1,000 ML/1,000 ML INFUS.BAG IV SCH (20:07)
[2018-09-15] MEDS ORDERED: MIRTAZAPINE 15 MG TABLET (FP) ONE (22:30)
[2018-09-15] MEDS: MIRTAZAPINE 15 MG TABLET (FP) GT SCH (22:32)
[2018-09-16] MEDS ORDERED: PIPERACILLIN/TAZOB 4.5 GM 4.5 GM in DEXTROSE 5%-WATER 100 ML IVPB SCH (03:00)
[2018-09-16] MEDS ORDERED: DEXTROSE 5%-WATER 100 ML IVPB ONE ×3 (03:24→18:08)
[2018-09-16] MEDS ORDERED: PIPERACILLIN/TAZOBACTAM 4.5 GM VIAL IVPB ONE ×2 (03:24→09:16)
[2018-09-16] MEDS: PIPERACILLIN/TAZOB 4.5 GM 4.5 GM in DEXTROSE 5%-WATER 100 ML IVPB SCH ×2 (04:00→09:31)
[2018-09-16] MEDS ORDERED: ACETAMINOPHEN 1000 MG/100 ML VIAL (NON FORMULARY) IVPB ONE (05:54)
--- NOTE | 2018-09-16 09:40 | PN ---
Teaching Attending Note Name of Resident: Delmy Olivera ATTENDING PHYSICIAN STATEMENT I saw and evaluated the patient. I reviewed the resident's note and discussed the case with the resident. I agree with the resident's findings and plan as documented. SUBJECTIVE: unable to obtain, saying he still has pain OBJECTIVE: Last Vital Signs Temp Pulse Resp BP Pulse Ox 38.3 C H 89 20 141/51 L 99 09/16/18 06:00 09/16/18 06:00 09/16/18 06:00 09/16/18 06:00 09/16/18 02:00 Gen: nad, awake but minimally conversive Pulm: ctab w/o w/r/r CV: rrr w/o m/r/g Abd: +bs, TTP RUQ w/ guarding Ext: no c/c/e CBC, BMP 09/15/18 13:32 09/15/18 13:32 ASSESSMENT AND PLAN: (1) Sepsis Assessment/Plan: -now with bacteremia -growing both aerobic gram negative and anaerobic gram positive bacteria -Dr Ny seeing and case discussed, will follow antibiotic recommendations Code(s): A41.9 - SEPSIS, UNSPECIFIED ORGANISM Qualifiers: Sepsis type: sepsis due to unspecified organism Qualified Code(s): A41.9 - Sepsis, unspecified organism (2) Acute cholangitis due to calculus of bile duct with obstruction Assessment/Plan: -will need cholecystostomy tube placement, planned for today by IR -antibiotics -would benefit from surgical intervention, awaiting recommendations from surgery Code(s): K80.33 - CALCULUS OF BILE DUCT W ACUTE CHOLANGITIS WITH OBSTRUCTION (3) Dementia with behavioral disturbance Assessment/Plan: -monitor -continue remeron Code(s): F03.91 - UNSPECIFIED DEMENTIA WITH BEHAVIORAL DISTURBANCE Qualifiers: Dementia type: unspecified type Qualified Code(s): F03.91 - Unspecified dementia with behavioral disturbance (4) Transaminitis Assessment/Plan: -with hyperbilirubinemia -secondary to acute cholecystitis -treatment as above Code(s): R74.0 - NONSPEC ELEV OF LEVELS OF TRANSAMNS & LACTIC ACID DEHYDRGNSE (5) Hypertension Assessment/Plan: -on metoprolol as an outpatient -will allow permissive HTN currently -if remains elevated, will restart but want to control sepsis first Code(s): I10 - ESSENTIAL (PRIMARY) HYPERTENSION Qualifiers: Hypertension type: essential hypertension Qualified Code(s): I10 - Essential (primary) hypertension Problem List - Problems (1) Sepsis Code(s): A41.9 - SEPSIS, UNSPECIFIED ORGANISM Qualifiers: Qualified Code(s): A41.9 - Sepsis, unspecified organism (2) Acute cholangitis due to calculus of bile duct with obstruction Code(s): K80.33 - CALCULUS OF BILE DUCT W ACUTE CHOLANGITIS WITH OBSTRUCTION (3) Dementia with behavioral disturbance Code(s): F03.91 - UNSPECIFIED DEMENTIA WITH BEHAVIORAL DISTURBANCE Qualifiers: Qualified Code(s): F03.91 - Unspecified dementia with behavioral disturbance (4) Transaminitis Code(s): R74.0 - NONSPEC ELEV OF LEVELS OF TRANSAMNS & LACTIC ACID DEHYDRGNSE (5) Hypertension Code(s): I10 - ESSENTIAL (PRIMARY) HYPERTENSION Qualifiers: Qualified Code(s): I10 - Essential (primary) hypertension
--- NOTE | 2018-09-16 09:51 | PN ---
Progress Note (short form) - Note Progress Note: ID CONSULT DICTATED GRAM NEGATIVE (?POLYMICROBIAL) BACTEREMIA BILIARY SEPSIS LACTIC ACIDOSIS HX ESBL AWAIT C/S EMPIRIC MEROPENEM/ VANCOMYCIN SURGICAL /IR/GI EVALUATION CONTACT PRECAUTIONS
--- NOTE | 2018-09-16 10:03 | CONSULT ---
- Consultation REQUESTING PROVIDER: Carol CORCORAN CONSULT REQUEST: We have been asked to surgically evaluate this patient for recurrent symptomatic biliary tract disease. PCP:Lm Medina MD HISTORY OF PRESENT ILLNESS: RAMON who is an 87 y/o non communicative male xferred from the [facility] w/ concern for recurrent sepsis of probable biliary tract origin; he has had a cholecystostomy tube in the past and it recently either fell out or the patient pulled it out; he also has a GT. He has had known intermittent symptomatic biliary tract disease in the past dating back to at least 2014 where he was ? initially txed at [facility]; he has had # admissions here all of which I have reviewed; it appears that the family has refused or declined more aggressive tx. in the past. PMHx: hypertension/? seizure disorder PSHx: GT; cholecystostomy tube Home Medications Medication Instructions Recorded Ascorbate Calcium [Vitamin C] 500 mg GT DAILY 03/11/17 Cyanocobalamin (Vitamin B-12) 1,000 mcg GT DAILY 03/11/17 [Vitamin B-12] Metoprolol Tartrate [Lopressor -] 100 mg GT BID tablet 03/26/17 Clonazepam [Klonopin] 0.25 mg GT BID 08/02/17 Mirtazapine [Remeron -] 15 mg GT HS 08/02/17 Acetaminophen [Tylenol] 650 mg PO BID PRN 06/28/18 Propylene Glycol/Peg 400/Pf 1 each OU Q12H 06/28/18 [Systane 0.3-0.4% Eye Drop] Amlodipine Besylate [Norvasc -] 5 mg PO DAILY tablet 07/07/18 Ursodiol [Actigal -] 300 mg PO BID capsule 07/07/18 Calcium Carbonate/Vitamin D3 1 each PO DAILY 09/15/18 [Calcium 500 + Vit D3 400 Tab] Mupirocin Cream [Bactroban 2% 1 applic TP DAILY 09/15/18 Cream -] Allergies Allergy/AdvReac Type Severity Reaction Status Date / Time No Known Allergies Allergy Verified 06/28/18 04:51 REVIEW OF SYSTEMS:unobtainable from the patient; reviewed from previous admissions PHYSICAL EXAM: GENERAL: Awake, lethargic, and not oriented x 3, in no acute distress. HEAD: Normal with no signs of trauma. EYES: sclera ? icteric, conjunctiva clear. NECK: Normal ROM, supple without lymphadenopathy, JVD, or masses. ABDOMEN: Soft, ? RUQ tenderness, not distended, normoactive bowel sounds, some guarding, no rebound, no masses. No organomegaly. GT is present. MUSCULOSKELETAL: Normal ROM at all joints. No bony deformities or tenderness. No CVA tenderness. UPPER EXTREMITIES: 2+ pulses, warm, well-perfused. No cyanosis. Cap refill <2 seconds. No peripheral edema. LOWER EXTREMITIES: 2+ pulses, warm, well-perfused. No calf tenderness. No peripheral edema. NEUROLOGICAL: Non verbal, gait not observed. PSYCH: Not cooperative. poor eye contact. Appropriate mood and affect not assessable. SKIN: Warm, dry, normal turgor, no rashes or lesions noted. Vital Signs Temperature 100.9 F H 09/16/18 06:00 Pulse Rate 89 09/16/18 06:00 Respiratory Rate 20 09/16/18 06:00 Blood Pressure 141/51 L 09/16/18 06:00 O2 Sat by Pulse Oximetry (%) 99 09/16/18 02:00 Lab Results WBC 13.5 K/mm3 (4.0-10.0) H 09/15/18 13:32 RBC 3.46 M/mm3 (4.00-5.60) L 09/15/18 13:32 Hgb 11.8 GM/dL (11.7-16.9) 09/15/18 13:32 Hct 34.9 % (35.4-49) L 09/15/18 13:32 MCV 100.9 fl (80-96) H 09/15/18 13:32 MCHC 33.8 g/dl (32.0-35.9) 09/15/18 13:32 RDW 13.9 % (11.9-15.9) 09/15/18 13:32 Plt Count 189 K/MM3 (134-434) 09/15/18 13:32 Sodium 140 mmol/L (136-145) 09/15/18 13:32 Potassium 4.1 mmol/L (3.5-5.1) 09/15/18 13:32 Chloride 109 mmol/L (98-107) H 09/15/18 13:32 Carbon Dioxide 25 mmol/L (21-32) 09/15/18 13:32 Anion Gap 5 MMOL/L (8-16) L 09/15/18 13:32 BUN 34.1 mg/dL (7-18) H 09/15/18 13:32 Creatinine 1.2 mg/dL (0.55-1.3) 09/15/18 13:32 Random Glucose 112 mg/dL (74-106) H 09/15/18 13:32 Calcium 8.4 mg/dL (8.5-10.1) L 09/15/18 13:32 INR 1.19 (0.83-1.09) H 09/15/18 13:32 LFT's elevated IMP: recurrent sepsis of biliary tract origin PLAN: NPO/IVF/IVAB's GI evaluation for ERCP and related procedures given findings in the CBD and elevated LFT's and bilirubin and ? repeat percutaneous cholecystosomty tube by IR; patient again appears not to be a candidate for surgical intervention again at this time for # reasons; goals of care should be d/w the family. Elian Sunshine MD FACS
--- NOTE | 2018-09-16 10:17 | CON.GI ---
Consult Consult Specialty:: GI Reason for Consultation:: Recurrent cholangitis - History of Present Illness Chief Complaint: Fever, jaundice History of Present Illness: History obtained from chart, pt unable to give history. In brief this is an 87 y.o. M with dementia, seizure disorder, with multiple episodes of cholangitis and known choledocholithiasis. Last admission here was 3 months ago when he had a cholecystostomy tube placement (his 4th, as best as I can determine); family refused ERCP and cholecystectomy. Pt has either pulled out tube or it fell out; he was admitted with recurrent biliary sepsis and air in the intrahepatic biliary tree. Pt is now going for repeat tube placement by radiology. 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) Additional Medical History: macular degeneration (legally blind) - Past Surgical History Past Surgical History: Yes: Hernia Repair (inguinal hernia repair), Upper Endoscopy (with ERCP and stone extraction 2015 [place] (too sick for cholecystectomy)) - Alcohol/Substance Use Hx Alcohol Use: No History of Substance Use: reports: None - Smoking History Smoking history: Former smoker Have you smoked in the past 12 months: No If you are a former smoker, when did you quit?: 30 YRS AGO - 1-2ppd x 20-30 yrs - Social History Usual Living Arrangement: [facility] ADL: Support Services Home Medications - Allergies Allergies/Adverse Reactions: Allergies Allergy/AdvReac Type Severity Reaction Status Date / Time No Known Allergies Allergy Verified 06/28/18 04:51 - Home Medications Home Medications: Ambulatory Orders Ascorbate Calcium [Vitamin C] 500 mg GT DAILY 03/11/17 Cyanocobalamin (Vitamin B-12) [Vitamin B-12] 1,000 mcg GT DAILY 03/11/17 Metoprolol Tartrate [Lopressor -] 100 mg GT BID tablet 03/26/17 Clonazepam [Klonopin] 0.25 mg GT BID 08/02/17 Mirtazapine [Remeron -] 15 mg GT HS 08/02/17 Acetaminophen [Tylenol] 650 mg PO BID PRN 06/28/18 Propylene Glycol/Peg 400/Pf [Systane 0.3-0.4% Eye Drop] 1 each OU Q12H 06/28/18 Amlodipine Besylate [Norvasc -] 5 mg PO DAILY tablet 07/07/18 Ursodiol [Actigal -] 300 mg PO BID capsule 07/07/18 Calcium Carbonate/Vitamin D3 [Calcium 500 + Vit D3 400 Tab] 1 each PO DAILY Mupirocin Cream [Bactroban 2% Cream -] 1 applic TP DAILY 09/15/18 Physical Exam-GI Vital Signs: Vital Signs Temperature 100.9 F H 09/16/18 06:00 Pulse Rate 89 09/16/18 06:00 Respiratory Rate 20 09/16/18 06:00 Blood Pressure 141/51 L 09/16/18 06:00 O2 Sat by Pulse Oximetry (%) 99 09/16/18 02:00 Gastrointestinal Inspection: Yes: Other (G tube) ...Rectal Exam: Yes: Deferred Neurological: Yes: Confusion Psychiatric: Yes: Agitated Labs: CBC, BMP 09/15/18 13:32 09/15/18 13:32 INR, PTT INR 1.19 (0.83-1.09) H 09/15/18 13:32 Imaging - Results Cat Scan: Report Reviewed, Image Reviewed Ultrasound: Report Reviewed Problem List - Problems (1) Acute cholangitis due to calculus of bile duct with obstruction Code(s): K80.33 - CALCULUS OF BILE DUCT W ACUTE CHOLANGITIS WITH OBSTRUCTION Assessment/Plan Pt apparently going for repeat interventional radiology procedure today. Should family decide at some point to subject the patient to ERCP and cholecystectomy, please let us know. Obviously there is risk in ERCP but there is also risk in repeated bouts of cholangitis.
--- NOTE | 2018-09-16 11:04 | PN ---
Physical Exam: SUBJECTIVE: Patient seen and examined resting in bed. low grade fever 100.0. hemodynamically stable. mental status improved, complains of pain.can answer yes and no. at bedside, states hes close to baseline mental status. s/p Perc cholecytostomy today OBJECTIVE: Vital Signs Period Temp Pulse Resp BP Sys/Hernandez Pulse Ox Last 24 Hr 97.2 F-103.5 F 72-102 18-20 121-161/51-80 95-100 GENERAL: in moderate distress HEAD: Normal with no signs of trauma. EYES: +scleral icterus EARS, NOSE, THROAT: dry mucous membranes. NECK: supple LUNGS: Breath sounds equal, clear to auscultation bilaterally. HEART: tachy regular, normal S1 and S2 ABDOMEN: normoactive bowel sounds, distended, soft, + guarding ruq. LOWER EXTREMITIES: warm, well-perfused. No peripheral edema. NEUROLOGICAL: agitated PSYCHIATRIC: unable to assess SKIN: Warm, dry Laboratory Results - last 24 hr 09/15/18 09/15/18 09/15/18 13:32 13:32 13:32 WBC 13.5 H RBC 3.46 L Hgb 11.8 Hct 34.9 L MCV 100.9 H MCH 34.1 H MCHC 33.8 RDW 13.9 Plt Count 189 MPV 9.0 D Absolute Neuts (auto) 13.1 H Neutrophils % 96.9 H D Neutrophils % (Manual) 79.8 Band Neutrophils % 11.1 Lymphocytes % 2.2 L D Lymphocytes % (Manual) 4.1 L D Monocytes % 0.7 L D Monocytes % (Manual) 3 L Eosinophils % 0.1 D Eosinophils % (Manual) 0.0 D Basophils % 0.1 Basophils % (Manual) 0.0 Myelocytes % (Man) 0 Promyelocytes % (Man) 0 Blast Cells % (Manual) 0 Nucleated RBC % 0 Metamyelocytes 0 Hypochromia 0 Platelet Estimate Normal Platelet Comment Present Polychromasia 0 Poikilocytosis 1+ Anisocytosis 1+ Microcytosis 1+ Macrocytosis 0 Spherocytes 1+ Tear Drop Cells 1+ PT with INR 14.10 H INR 1.19 H PTT (Actin FS) 27.8 VBG pH 7.43 H POC VBG pCO2 36.4 L POC VBG pO2 43.3 H VBG HCO3 23.9 VBG O2 Sat (Anjali) 78.1 VBG Base Excess 0.3 Sodium Potassium Chloride Carbon Dioxide Anion Gap BUN Creatinine Est GFR (CKD-EPI)AfAm Est GFR (CKD-EPI)NonAf Random Glucose Lactic Acid Calcium Total Bilirubin AST ALT Alkaline Phosphatase Troponin I Total Protein Albumin Urine Color Urine Appearance Urine pH Ur Specific [place] Urine Protein Urine Glucose (UA) Urine Ketones Urine Blood Urine Nitrite Urine Bilirubin Urine Urobilinogen Ur Leukocyte Esterase Urine WBC (Auto) Urine RBC (Auto) Urine Casts (Auto) U Epithel Cells (Auto) Urine Bacteria (Auto) 09/15/18 09/15/18 09/15/18 13:32 13:32 13:32 WBC RBC Hgb Hct MCV MCH MCHC RDW Plt Count MPV Absolute Neuts (auto) Neutrophils % Neutrophils % (Manual) Band Neutrophils % Lymphocytes % Lymphocytes % (Manual) Monocytes % Monocytes % (Manual) Eosinophils % Eosinophils % (Manual) Basophils % Basophils % (Manual) Myelocytes % (Man) Promyelocytes % (Man) Blast Cells % (Manual) Nucleated RBC % Metamyelocytes Hypochromia Platelet Estimate Platelet Comment Polychromasia Poikilocytosis Anisocytosis Microcytosis Macrocytosis Spherocytes Tear Drop Cells PT with INR INR PTT (Actin FS) VBG pH POC VBG pCO2 POC VBG pO2 VBG HCO3 VBG O2 Sat (Anjali) VBG Base Excess Sodium 140 Potassium 4.1 Chloride 109 H Carbon Dioxide 25 Anion Gap 5 L BUN 34.1 H Creatinine 1.2 Est GFR (CKD-EPI)AfAm 62.20 Est GFR (CKD-EPI)NonAf 53.67 Random Glucose 112 H Lactic Acid 2.7 H* Calcium 8.4 L Total Bilirubin 4.4 H AST 164 H ALT 211 H Alkaline Phosphatase 336 H Troponin I < 0.02 Total Protein 7.0 Albumin 3.0 L Urine Color Urine Appearance Urine pH Ur Specific [place] Urine Protein Urine Glucose (UA) Urine Ketones Urine Blood Urine Nitrite Urine Bilirubin Urine Urobilinogen Ur Leukocyte Esterase Urine WBC (Auto) Urine RBC (Auto) Urine Casts (Auto) U Epithel Cells (Auto) Urine Bacteria (Auto) 09/15/18 09/15/18 09/16/18 13:50 19:20 01:30 WBC RBC Hgb Hct MCV MCH MCHC RDW Plt Count MPV Absolute Neuts (auto) Neutrophils % Neutrophils % (Manual) Band Neutrophils % Lymphocytes % Lymphocytes % (Manual) Monocytes % Monocytes % (Manual) Eosinophils % Eosinophils % (Manual) Basophils % Basophils % (Manual) Myelocytes % (Man) Promyelocytes % (Man) Blast Cells % (Manual) Nucleated RBC % Metamyelocytes Hypochromia Platelet Estimate Platelet Comment Polychromasia Poikilocytosis Anisocytosis Microcytosis Macrocytosis Spherocytes Tear Drop Cells PT with INR INR PTT (Actin FS) VBG pH POC VBG pCO2 POC VBG pO2 VBG HCO3 VBG O2 Sat (Anjali) VBG Base Excess Sodium Potassium Chloride Carbon Dioxide Anion Gap BUN Creatinine Est GFR (CKD-EPI)AfAm Est GFR (CKD-EPI)NonAf Random Glucose Lactic Acid 3.0 H* 1.9 Calcium Total Bilirubin AST ALT Alkaline Phosphatase Troponin I Total Protein Albumin Urine Color Dk yellow Urine Appearance Clear Urine pH 5.0 Ur Specific [place] 1.018 Urine Protein 1+ H Urine Glucose (UA) Negative Urine Ketones Negative Urine Blood 2+ H Urine Nitrite Negative Urine Bilirubin 2+ H Urine Urobilinogen 1.0 Ur Leukocyte Esterase Trace Urine WBC (Auto) 1 Urine RBC (Auto) 59 Urine Casts (Auto) 11 U Epithel Cells (Auto) 2.1 Urine Bacteria (Auto) 2.5 Active Medications Generic Name Dose Route Start Last Admin Trade Name Freq PRN Reason Stop Dose Admin Lactated Ringer's 1,000 ml in 1,000 mls @ 125 mls/hr 09/15/18 18:15 09/15/18 20:07 Lactated Ringers Solution IV 125 mls/hr ASDIR HOANG Administration Meropenem 1 gm/ Dextrose 100 mls @ 200 mls/hr 09/16/18 10:00 IVPB Q8H-IV HOANG Vancomycin HCl 1,000 mg in 250 mls @ 200 mls/hr 09/16/18 15:00 Vancomycin (Pre-Docked) IVPB DAILY@1500 [facility] Protocol Mirtazapine 15 mg 09/15/18 22:00 09/15/18 22:32 Remeron - GT 15 mg HS HOANG Administration ASSESSMENT/PLAN: This is an 87 year old male with PMH of multiple admissions for acute cholecustitis s/p cholecystostomy tube, HTN, Anemia, Dementia [facility]/v and fever. severe sespsis due to recurrent acute cholecystitis htn anemia dementia -blood cultures polymicrobial, empiric vanco/zosyn per ID d 2 -s/p Perc cholecytostomy today -s/p surgery and GI eval: not a surgery candidate, may get ERCP if family chooses to undergo the risk -ivf hydration -has been hemodynamically stable, resume bb and norvasc -tele monitoring -plan to continue goals of care discussion with . code status, hospice. Visit type - Emergency Visit Emergency Visit: Yes ED Registration Date: 09/15/18 Care time: The patient presented to the Emergency Department on the above date and was hospitalized for further evaluation of their emergent condition. - New Patient This patient is new to me today: No - Critical Care Critical Care patient: No - Discharge Referral Referred to [facility] No
--- NOTE | 2018-09-16 11:47 | CONS ---
DATE OF CONSULTATION: DATE OF DICTATION: 09/16/2018 HISTORY OF PRESENT ILLNESS: The patient is an 87-year-old male who is evaluated for positive blood cultures. He has a history of cholelithiasis in the past. He was admitted to the hospital in June with acute cholangitis. He had a cholecystostomy tube placement on June 29, 2018. At that time, his course was complicated by gram-negative sepsis. He is now readmitted with reports of abdominal pain, nausea, vomiting, and fever. He is a senior care resident. He suffers from dementia and cannot give a history. According to the notes, he was noted to have fever at the nursing facility, abdominal discomfort and nausea and vomiting for 1 days prior to admission. The patient apparently had forcibly removed the cholecystostomy tube. He had also recently removed a feeding gastrostomy tube. He was transferred to the emergency room where he was noted to have fever of 103.5, elevated white blood cell count and elevated liver enzymes. Cultures were obtained. He was empirically treated with meropenem. A CT scan of the abdomen and pelvis was performed and showed a distended gallbladder with pericholecystic fluid, choledocholithiasis, and a dilated common bile duct. At the present time, he is awake. He is in no acute distress. He suffers from dementia and cannot give any history. His course has been complicated by fever. PAST MEDICAL HISTORY: Positive for dementia, hypertension, anemia. ALLERGIES: No known allergies. MEDICATIONS: Include vitamin C, Lopressor, Klonopin, Remeron, Norvasc, Actigall. SOCIAL HISTORY: He suffers from dementia. He is dependent in activities of daily living. Negative tobacco or alcohol use. LABORATORY DATA: White count 13.5, hematocrit 34.9, platelet count 189. BUN 34, creatinine 1.2, lactic acid 3.0. Urinalysis 1 white cell. Total bilirubin 4.4, alkaline phosphatase 336, AST 164, ALT 211. SYSTEMS REVIEW: Neurologic: Positive for dementia. Cardiac: Negative for chest pain or palpitations. Respiratory: Negative for cough or sputum production. Gastrointestinal: As per HPI. Genitourinary: Negative for urinary tract infection. PHYSICAL EXAMINATION: General: He is awake and alert, but confused. Vital signs: Temperature 100.9, blood pressure 149/51, pulse 89 and regular, respirations 20 per minute. HEENT: Sclerae anicteric. Heart: Heart sounds S1, S2. Lungs: Clear. Abdomen: Obese. There is right upper quadrant tenderness elicited to deep palpation. No rebound or rigidity. Extremities: Negative for edema. IMPRESSION: 1. Gram-negative bacteremia, possible polymicrobial bacteremia. 2. Biliary sepsis. 3. Lactic acidosis. 4. History of positive blood culture, extended-spectrum beta-lactamase. Await final identification of blood isolates. Patient with gram-negative rods and possible gram-positive shantanu in blood cultures. Pending cultures, empiric antibiotic coverage with meropenem and vancomycin. Obtain surgical, interventional radiology, and GI evaluation. Contact precautions. Prognosis is guarded. Will follow. Thank you for the kind referral. RAJAT WISEMAN M.D. [id number]
--- NOTE | 2018-09-16 11:50 | EKG ---
Test Reason : Blood Pressure : / mmHG Vent. Rate : 102 BPM Atrial Rate : 102 BPM P-R Int : 172 ms QRS Dur : 094 ms QT Int : 364 ms P-R-T Axes : 045 -54 -29 degrees QTc Int : 474 ms POOR DATA QUALITY, INTERPRETATION MAY BE ADVERSELY AFFECTED SINUS TACHYCARDIA WITH FREQUENT PREMATURE VENTRICULAR COMPLEXES LEFT AXIS DEVIATION INFERIOR INFARCT (CITED ON OR BEFORE 10-OCT-2017) ABNORMAL ECG Confirmed by RYLAN CORCORAN, RAJAT ([id number]) on 09/16/2018 11:49:46 AM Referred By: Confirmed By:RAJAT FAGAN MD
[2018-09-16] MEDS: MEROPENEM 1 GM in DEXTROSE 5%-WATER 100 ML IVPB SCH ×2 (13:49→18:09)
[2018-09-16] MEDS: ACETAMINOPHEN 1000 MG/100 ML VIAL (NON FORMULARY) IVPB PRN ×2 (13:49→20:00)
[2018-09-16] MEDS: VANCOMYCIN 1 GRAM (PRE-DOCKED) 1,000 MG/250 ML BAG IVPB SCH (16:00)
[2018-09-16 16:40] LABS: BASO % 0.2 % (0-2.0); EOS % 0.4 % (0-4.5); HEMATOCRIT 29.7 % (35.4-49); HEMOGLOBIN 10.2 GM/dL (11.7-16.9); MCH 34.5 pg (25.7-33.7); MCHC 34.3 g/dl (32.0-35.9); MEAN CELL VOLUME 100.3 fl (80-96); MEAN PLT VOLUME 9.4 fl (7.5-11.1); MONO % 2.8 % (3.8-10.2); NEUT % 90.6 % (42.8-82.8); RBC 2.96 M/mm3 (4.00-5.60); RDW 13.8 % (11.9-15.9); WHITE BLOOD COUNT 9.3 K/mm3 (4.0-10.0)
[2018-09-16 17:18] LABS: ALBUMIN 2.3 g/dl (3.4-5.0); BILIRUBIN,TOTAL 3.6 mg/dL (0.2-1); BLOOD UREA NITROGEN 25.4 mg/dL (7-18); CALCIUM 8.1 mg/dL (8.5-10.1); CREATININE 1.2 mg/dL (0.55-1.3); PHOSPHOROUS 2.4 mg/dL (2.5-4.9); POTASSIUM 3.8 mmol/L (3.5-5.1); TOT PROT 5.6 g/dl (6.4-8.2)
[2018-09-16] MEDS ORDERED: MEROPENEM 1 GM VIAL (RESTRICTED TO ID) IVPB ONE (18:07)
[2018-09-16 18:42] LABS: PLATELET COUNT 163 K/MM3 (134-434)
[2018-09-16] MEDS: MIRTAZAPINE 15 MG TABLET (FP) GT SCH (22:47)
[2018-09-16] MEDS: LACTATED RINGERS SOLUTION 1,000 ML/1,000 ML INFUS.BAG IV SCH (22:47)
[2018-09-16] MEDS: METOPROLOL TARTRATE 50 MG TABLET (FP) GT SCH (22:47)
[2018-09-17] MEDS ORDERED: MEROPENEM 1 GM VIAL (RESTRICTED TO ID) IVPB ONE ×3 (01:37→18:02)
[2018-09-17] MEDS ORDERED: DEXTROSE 5%-WATER 100 ML IVPB ONE ×3 (01:37→18:02)
[2018-09-17] MEDS: MEROPENEM 1 GM in DEXTROSE 5%-WATER 100 ML IVPB SCH ×3 (01:41→18:05)
[2018-09-17] MEDS: ACETAMINOPHEN 1000 MG/100 ML VIAL (NON FORMULARY) IVPB PRN ×2 (01:58→23:05)
[2018-09-17] MEDS: LACTATED RINGERS SOLUTION 1,000 ML/1,000 ML INFUS.BAG IV SCH ×2 (07:13→22:56)
[2018-09-17 07:47] LABS: ALBUMIN 2.5 g/dl (3.4-5.0); BILIRUBIN,TOTAL 3.6 mg/dL (0.2-1); BLOOD UREA NITROGEN 17.9 mg/dL (7-18); CALCIUM 8.4 mg/dL (8.5-10.1); POTASSIUM 4.4 mmol/L (3.5-5.1); TOT PROT 6.4 g/dl (6.4-8.2)
[2018-09-17 07:51] LABS: BASO % 0.2 % (0-2.0); EOS % 0.7 % (0-4.5); HEMOGLOBIN 11.4 GM/dL (11.7-16.9); LYMPH % 8.3 % (8-40); MCH 34.5 pg (25.7-33.7); MCHC 34.4 g/dl (32.0-35.9); MEAN CELL VOLUME 100.3 fl (80-96); MEAN PLT VOLUME 9.6 fl (7.5-11.1); MONO % 3.8 % (3.8-10.2); PLATELET COUNT 207 K/MM3 (134-434); RDW 13.8 % (11.9-15.9); WHITE BLOOD COUNT 10.2 K/mm3 (4.0-10.0)
[2018-09-17] MEDS: METOPROLOL TARTRATE 50 MG TABLET (FP) GT SCH ×2 (09:51→22:42)
[2018-09-17] MEDS: amLODIPine BESYLATE 5 MG TABLET (FP) GT SCH (09:51)
--- NOTE | 2018-09-17 11:33 | PN ---
Progress Note (short form) - Note Progress Note: s/p placement of cholycystotomy tube by IR yesterday Vital Signs Period Temp Pulse Resp BP Sys/Hernandez Pulse Ox Last 24 Hr 98.2 F-101.1 F 76-107 20-20 138-171/69-110 94-94 cor-rrr lungs decresed bs at bases abd +biliary drain with cloudy bilious fluid ext no edema CBC, BMP 09/17/18 05:10 09/17/18 05:10 Microbiology 09/16/18 11:25 Cholecystectomy Fluid MAXIMINO Preparation - Preliminary 09/16/18 11:25 Cholecystectomy Fluid Fungal Culture - Preliminary 09/15/18 13:32 Blood - Peripheral Venous Blood Culture - Preliminary Lactose Fermenting Neg Bacilli Pending Organism#2 09/16/18 11:25 Cholecystectomy Fluid Gram Stain - Final 09/15/18 13:32 Blood - Peripheral Venous Blood Culture - Preliminary Lactose Fermenting Neg Bacilli 09/15/18 13:50 Urine - Urine - Catheterized Urine Culture - Final NO GROWTH OBTAINED a/p polymicrobial bacteremia -biliary sepsis- s/p placement of cholycystotomy tube for d/w family regarding goals of care- d/w hospitalist continue vancomycin/meropenem history of esbl organisms in the past repeat blood cultures in am
--- NOTE | 2018-09-17 12:39 | PN ---
Progress Note, Physician Chief Complaint: Mr Menezes is more awake and interactive today, but still cannot obtain full subjective. Says he feels bad and is in pain but cannot answer other questions. - Current Medication List Current Medications: Active Medications Acetaminophen (Ofirmev Injection -) 1,000 mg IVPB Q6H PRN PRN Reason: PAIN LEVEL 1-5 Last Admin: 09/17/18 01:58 Dose: 1,000 mg Amlodipine Besylate (Norvasc -) 5 mg GT DAILY HOANG Last Admin: 09/17/18 09:51 Dose: 5 mg Lactated Ringer's (Lactated Ringers Solution) 1,000 ml in 1,000 mls @ 125 mls/ hr IV ASDIR HOANG Last Admin: 09/17/18 07:13 Dose: 125 mls/hr Meropenem 1 gm/ Dextrose 100 mls @ 200 mls/hr IVPB Q8H-IV HOANG Last Admin: 09/17/18 09:48 Dose: 200 mls/hr Vancomycin HCl (Vancomycin (Pre-Docked)) 1,000 mg in 250 mls @ 200 mls/hr IVPB DAILY@1500 HOANG; Protocol Last Admin: 09/16/18 16:00 Dose: 200 mls/hr Metoprolol Tartrate (Lopressor -) 100 mg GT BID HOANG Last Admin: 09/17/18 09:51 Dose: 100 mg Mirtazapine (Remeron -) 15 mg GT HS HOANG Last Admin: 09/16/18 22:47 Dose: 15 mg - Objective Vital Signs: Vital Signs Temperature 37.2 C 09/17/18 10:00 Pulse Rate 87 09/17/18 10:00 Respiratory Rate 20 09/17/18 10:00 Blood Pressure 171/69 H 09/17/18 10:00 O2 Sat by Pulse Oximetry (%) 94 L 09/17/18 09:00 Constitutional: Yes: Well Nourished, Anxious, Mild Distress Cardiovascular: Yes: Regular Rate and Rhythm. No: Gallop, Murmur, Rub Respiratory: Yes: Regular, CTA Bilaterally. No: Rales, Rhonchi, Wheezes Gastrointestinal: Yes: Normal Bowel Sounds, Soft, Distention, Tenderness Extremities: Yes: WNL Edema: No Labs: CBC, BMP 09/17/18 05:10 09/17/18 05:10 INR, PTT INR 1.19 (0.83-1.09) H 09/15/18 13:32 Problem List - Problems (1) Sepsis Code(s): A41.9 - SEPSIS, UNSPECIFIED ORGANISM Qualifiers: Sepsis type: sepsis due to unspecified organism Qualified Code(s): A41.9 - Sepsis, unspecified organism (2) Acute cholangitis due to calculus of bile duct with obstruction Code(s): K80.33 - CALCULUS OF BILE DUCT W ACUTE CHOLANGITIS WITH OBSTRUCTION (3) Dementia with behavioral disturbance Code(s): F03.91 - UNSPECIFIED DEMENTIA WITH BEHAVIORAL DISTURBANCE Qualifiers: Dementia type: unspecified type Qualified Code(s): F03.91 - Unspecified dementia with behavioral disturbance (4) Transaminitis Code(s): R74.0 - NONSPEC ELEV OF LEVELS OF TRANSAMNS & LACTIC ACID DEHYDRGNSE (5) Hypertension Code(s): I10 - ESSENTIAL (PRIMARY) HYPERTENSION Qualifiers: Hypertension type: essential hypertension Qualified Code(s): I10 - Essential (primary) hypertension Assessment/Plan (1) Sepsis Assessment/Plan: -case d/w Dr Campbell -placed on merrem and vancomycin -continue hydration -blood cultures reviewed, growing enterococcus and gram negative rods Code(s): A41.9 - SEPSIS, UNSPECIFIED ORGANISM Qualifiers: Sepsis type: sepsis due to unspecified organism Qualified Code(s): A41.9 - Sepsis, unspecified organism (2) Acute cholangitis due to calculus of bile duct with obstruction Assessment/Plan: -perc cholecystotomy tube placed -antibiotics as above -case d/w Dr Sunshine -feels major issue is retained stones requiring ERCP for removal -will d/w family goals of care as patient with multiple episodes of sepsis secondary to this and removal of tube Code(s): K80.33 - CALCULUS OF BILE DUCT W ACUTE CHOLANGITIS WITH OBSTRUCTION (3) Dementia with behavioral disturbance Assessment/Plan: -monitor -continue remeron Code(s): F03.91 - UNSPECIFIED DEMENTIA WITH BEHAVIORAL DISTURBANCE Qualifiers: Dementia type: unspecified type Qualified Code(s): F03.91 - Unspecified dementia with behavioral disturbance (4) Transaminitis Assessment/Plan: -with hyperbilirubinemia -secondary to acute cholecystitis -improving with decompression with tube Code(s): R74.0 - NONSPEC ELEV OF LEVELS OF TRANSAMNS & LACTIC ACID DEHYDRGNSE (5) Hypertension Assessment/Plan: -amlodipine and metoprolol started -monitor Code(s): I10 - ESSENTIAL (PRIMARY) HYPERTENSION Qualifiers: Hypertension type: essential hypertension Qualified Code(s): I10 - Essential (primary) hypertension
[2018-09-17] MEDS: VANCOMYCIN 1 GRAM (PRE-DOCKED) 1,000 MG/250 ML BAG IVPB SCH (14:16)
[2018-09-17] MEDS: MIRTAZAPINE 15 MG TABLET (FP) GT SCH (22:42)
[2018-09-18] MEDS ORDERED: MEROPENEM 1 GM VIAL (RESTRICTED TO ID) IVPB ONE ×2 (00:29→09:33)
[2018-09-18] MEDS ORDERED: DEXTROSE 5%-WATER 100 ML IVPB ONE ×2 (00:29→09:33)
[2018-09-18] MEDS: MEROPENEM 1 GM in DEXTROSE 5%-WATER 100 ML IVPB SCH ×2 (03:09→09:40)
[2018-09-18 07:31] LABS: BASO % 0.2 % (0-2.0); EOS % 3.7 % (0-4.5); HEMOGLOBIN 11.3 GM/dL (11.7-16.9); MCH 33.6 pg (25.7-33.7); MCHC 33.2 g/dl (32.0-35.9); MEAN CELL VOLUME 101.2 fl (80-96); MEAN PLT VOLUME 9.4 fl (7.5-11.1); MONO % 6.3 % (3.8-10.2); NEUT % 78.8 % (42.8-82.8); RBC 3.36 M/mm3 (4.00-5.60); RDW 13.9 % (11.9-15.9); WHITE BLOOD COUNT 9.3 K/mm3 (4.0-10.0)
[2018-09-18 07:32] LABS: ALBUMIN 2.3 g/dl (3.4-5.0); BILIRUBIN,DIRECT 1.3 mg/dL (0.0-0.2); BILIRUBIN,TOTAL 1.7 mg/dL (0.2-1); BLOOD UREA NITROGEN 20.3 mg/dL (7-18); CALCIUM 8.2 mg/dL (8.5-10.1); MAGNESIUM 2.3 mg/dL (1.8-2.4); PHOSPHOROUS 2.6 mg/dL (2.5-4.9); POTASSIUM 4.1 mmol/L (3.5-5.1)
[2018-09-18 08:27] LABS: PLATELET COUNT 215 K/MM3 (134-434)
[2018-09-18] MEDS: amLODIPine BESYLATE 5 MG TABLET (FP) GT SCH (09:41)
[2018-09-18] MEDS: METOPROLOL TARTRATE 50 MG TABLET (FP) GT SCH ×2 (09:41→21:30)
--- NOTE | 2018-09-18 09:47 | PN ---
Progress Note (short form) - Note Progress Note: s/p placement of cholycystotomy tube by IR combative wants to go home refused repeat blood draw yesterday Vital Signs Period Temp Pulse Resp BP Sys/Hernandez Pulse Ox Last 24 Hr 98.3 F-98.9 F 64-87 20-20 152-186/68-90 94 cor-rrr lungs clear abd soft,nt Biliary drainage is clear- no longer cloudy ext no edema CBC, BMP 09/18/18 05:05 09/18/18 05:05 Microbiology 09/15/18 13:32 Blood - Peripheral Venous Blood Culture - Preliminary Escherichia Coli Pending Organism#2 09/15/18 13:32 Blood - Peripheral Venous Blood Culture - Preliminary Escherichia Coli Esbl Graphic Art Technician 09/16/18 11:25 Cholecystectomy Fluid Gram Stain - Final 09/16/18 11:25 Cholecystectomy Fluid Body Fluid Culture - Preliminary Lactose Fermenting Neg Bacilli Group D Strep Or Entero Coccus Pending Organism 09/16/18 11:25 Cholecystectomy Fluid MAXIMINO Preparation - Preliminary 09/16/18 11:25 Cholecystectomy Fluid Fungal Culture - Preliminary 09/15/18 13:50 Urine - Urine - Catheterized Urine Culture - Final NO GROWTH OBTAINED Laboratory Tests 09/16/18 09/17/18 09/18/18 15:15 05:10 05:05 Total Bilirubin 3.6 H 3.6 H 1.7 H AST 67 H 49 H 28 ALT 128 H 117 H 79 H Alkaline Phosphatase 198 H 222 H 180 H a/p polymicrobial bacteremia -biliary sepsis- s/p placement of cholycystotomy tube for d/w family regarding goals of care- d/w hospitalist clinically improving switch to ertapenem today
--- NOTE | 2018-09-18 14:00 | PN ---
Progress Note, Physician Chief Complaint: Mr Menezes continues to improve, speech much clearer today but still slurred. Denies pain and says he is eating well. Cannot distinguish if he is still having abdominal pain or is irritated by the cholecystostomy tube, he points at his RUQ and grunts in frustration but does not answer questions about it. Asking if he can go home tomorrow. - Current Medication List Current Medications: Active Medications Amlodipine Besylate (Norvasc -) 5 mg GT DAILY [facility] Last Admin: 09/18/18 09:41 Dose: 5 mg Lactated Ringer's (Lactated Ringers Solution) 1,000 ml in 1,000 mls @ 125 mls/ hr IV ASDIR HOANG Last Admin: 09/17/18 22:56 Dose: 125 mls/hr Vancomycin HCl (Vancomycin (Pre-Docked)) 1,000 mg in 250 mls @ 200 mls/hr IVPB DAILY@1500 HOANG; Protocol Last Admin: 09/17/18 14:16 Dose: 200 mls/hr Ertapenem 1 gm/ Sodium (Chloride) 50 mls @ 100 mls/hr IVPB DAILY HOANG Metoprolol Tartrate (Lopressor -) 100 mg GT BID [facility] Last Admin: 09/18/18 09:41 Dose: 100 mg Mirtazapine (Remeron -) 15 mg GT HS HOANG Last Admin: 09/17/18 22:42 Dose: 15 mg - Objective Vital Signs: Vital Signs Temperature 37.1 C 09/18/18 09:00 Pulse Rate 72 09/18/18 09:00 Respiratory Rate 18 09/18/18 09:00 Blood Pressure 161/75 09/18/18 09:00 O2 Sat by Pulse Oximetry (%) 98 09/18/18 09:00 Constitutional: Yes: Well Nourished, No Distress, Calm Cardiovascular: Yes: Regular Rate and Rhythm. No: Gallop, Murmur Respiratory: Yes: Regular, CTA Bilaterally. No: Rales, Rhonchi, Wheezes Gastrointestinal: Yes: Normal Bowel Sounds, Soft, Other (tube in place draining bilious fluid). No: Distention, Tenderness Extremities: Yes: WNL Edema: No Labs: CBC, BMP 09/18/18 05:05 09/18/18 05:05 INR, PTT INR 1.19 (0.83-1.09) H 09/15/18 13:32 Problem List - Problems (1) Sepsis Code(s): A41.9 - SEPSIS, UNSPECIFIED ORGANISM Qualifiers: Sepsis type: sepsis due to unspecified organism Qualified Code(s): A41.9 - Sepsis, unspecified organism (2) Acute cholangitis due to calculus of bile duct with obstruction Code(s): K80.33 - CALCULUS OF BILE DUCT W ACUTE CHOLANGITIS WITH OBSTRUCTION (3) Dementia with behavioral disturbance Code(s): F03.91 - UNSPECIFIED DEMENTIA WITH BEHAVIORAL DISTURBANCE Qualifiers: Dementia type: unspecified type Qualified Code(s): F03.91 - Unspecified dementia with behavioral disturbance (4) Transaminitis Code(s): R74.0 - NONSPEC ELEV OF LEVELS OF TRANSAMNS & LACTIC ACID DEHYDRGNSE (5) Hypertension Code(s): I10 - ESSENTIAL (PRIMARY) HYPERTENSION Qualifiers: Hypertension type: essential hypertension Qualified Code(s): I10 - Essential (primary) hypertension Assessment/Plan (1) Sepsis Assessment/Plan: -improving -cultures growing ESBL and enterococcus -anaerobic culture not yet resulted -on ertapenem and vancomycin Code(s): A41.9 - SEPSIS, UNSPECIFIED ORGANISM Qualifiers: Sepsis type: sepsis due to unspecified organism Qualified Code(s): A41.9 - Sepsis, unspecified organism (2) Acute cholangitis due to calculus of bile duct with obstruction Assessment/Plan: -perc cholecystotomy tube placed -antibiotics as above -will d/w family goals of care as patient with multiple episodes of sepsis secondary to this and removal of tube Code(s): K80.33 - CALCULUS OF BILE DUCT W ACUTE CHOLANGITIS WITH OBSTRUCTION (3) Dementia with behavioral disturbance Assessment/Plan: -monitor -continue remeron Code(s): F03.91 - UNSPECIFIED DEMENTIA WITH BEHAVIORAL DISTURBANCE Qualifiers: Dementia type: unspecified type Qualified Code(s): F03.91 - Unspecified dementia with behavioral disturbance (4) Transaminitis Assessment/Plan: -with hyperbilirubinemia -secondary to acute cholecystitis -improving with decompression with tube Code(s): R74.0 - NONSPEC ELEV OF LEVELS OF TRANSAMNS & LACTIC ACID DEHYDRGNSE (5) Hypertension Assessment/Plan: -amlodipine and metoprolol started -monitor Code(s): I10 - ESSENTIAL (PRIMARY) HYPERTENSION Qualifiers: Hypertension type: essential hypertension Qualified Code(s): I10 - Essential (primary) hypertension
[2018-09-18] MEDS: VANCOMYCIN 1 GRAM (PRE-DOCKED) 1,000 MG/250 ML BAG IVPB SCH (14:12)
[2018-09-18] MEDS: LACTATED RINGERS SOLUTION 1,000 ML/1,000 ML INFUS.BAG IV SCH (16:00)
[2018-09-18] MEDS ORDERED: PT OWN MED DRAWER 7, Y5N ONE (20:34)
[2018-09-18] MEDS: ERTAPENEM SODIUM 1 GM in SODIUM CHLORIDE 50 ML IVPB SCH (20:42)
[2018-09-18] MEDS: HEPARIN NA (PORCINE) 5,000 UNITS/ML 1ML VIAL SQ SCH (21:30)
[2018-09-18] MEDS: MIRTAZAPINE 15 MG TABLET (FP) GT SCH (21:30)
[2018-09-19] MEDS: HEPARIN NA (PORCINE) 5,000 UNITS/ML 1ML VIAL SQ SCH ×3 (06:23→22:54)
[2018-09-19 08:28] LABS: ALBUMIN 2.2 g/dl (3.4-5.0); BILIRUBIN,DIRECT 0.8 mg/dL (0.0-0.2); TOT PROT 5.5 g/dl (6.4-8.2)
[2018-09-19] MEDS: ERTAPENEM SODIUM 1 GM in SODIUM CHLORIDE 50 ML IVPB SCH (09:59)
[2018-09-19] MEDS: METOPROLOL TARTRATE 50 MG TABLET (FP) GT SCH ×2 (10:00→22:54)
[2018-09-19] MEDS: LACTATED RINGERS SOLUTION 1,000 ML/1,000 ML INFUS.BAG IV SCH (10:00)
[2018-09-19] MEDS: amLODIPine BESYLATE 5 MG TABLET (FP) GT SCH (10:01)
--- NOTE | 2018-09-19 11:00 | PN ---
Progress Note, Physician Chief Complaint: Mr Menezes says he has no pain. Looks more comfortable. Cannot obtain further subjective. - Current Medication List Current Medications: Active Medications Amlodipine Besylate (Norvasc -) 5 mg GT DAILY [facility] Last Admin: 09/19/18 10:01 Dose: 5 mg Heparin Sodium (Porcine) (Heparin -) 5,000 unit SQ TID [facility] Last Admin: 09/19/18 06:23 Dose: 5,000 unit Vancomycin HCl (Vancomycin (Pre-Docked)) 1,000 mg in 250 mls @ 200 mls/hr IVPB DAILY@1500 [facility]; Protocol Last Admin: 09/18/18 14:12 Dose: 200 mls/hr Ertapenem 1 gm/ Sodium (Chloride) 50 mls @ 100 mls/hr IVPB DAILY [facility] Last Admin: 09/19/18 09:59 Dose: 100 mls/hr Lactated Ringer's (Lactated Ringers Solution) 1,000 ml in 1,000 mls @ 50 mls/ hr IV ASDIR [facility] Last Admin: 09/19/18 10:00 Dose: 50 mls/hr Metoprolol Tartrate (Lopressor -) 100 mg GT BID [facility] Last Admin: 09/19/18 10:00 Dose: 100 mg Mirtazapine (Remeron -) 15 mg GT HS [facility] Last Admin: 09/18/18 21:30 Dose: 15 mg - Objective Vital Signs: Vital Signs Temperature 37.1 C 09/19/18 06:00 Pulse Rate 63 09/19/18 06:00 Respiratory Rate 19 09/19/18 09:00 Blood Pressure 159/78 09/19/18 06:00 O2 Sat by Pulse Oximetry (%) 98 09/19/18 09:00 Constitutional: Yes: Well Nourished, No Distress, Calm Cardiovascular: Yes: Regular Rate and Rhythm. No: Gallop, Murmur, Rub Respiratory: Yes: Regular, CTA Bilaterally. No: Rales, Rhonchi, Wheezes Gastrointestinal: Yes: Normal Bowel Sounds, Soft, Other (drain in place). No: Distention, Tenderness Extremities: Yes: WNL Edema: No Labs: CBC, BMP 09/18/18 05:05 09/18/18 05:05 INR, PTT INR 1.19 (0.83-1.09) H 09/15/18 13:32 Problem List - Problems (1) Sepsis Code(s): A41.9 - SEPSIS, UNSPECIFIED ORGANISM Qualifiers: Sepsis type: sepsis due to unspecified organism Qualified Code(s): A41.9 - Sepsis, unspecified organism (2) Acute cholangitis due to calculus of bile duct with obstruction Code(s): K80.33 - CALCULUS OF BILE DUCT W ACUTE CHOLANGITIS WITH OBSTRUCTION (3) Dementia with behavioral disturbance Code(s): F03.91 - UNSPECIFIED DEMENTIA WITH BEHAVIORAL DISTURBANCE Qualifiers: Dementia type: unspecified type Qualified Code(s): F03.91 - Unspecified dementia with behavioral disturbance (4) Transaminitis Code(s): R74.0 - NONSPEC ELEV OF LEVELS OF TRANSAMNS & LACTIC ACID DEHYDRGNSE (5) Hypertension Code(s): I10 - ESSENTIAL (PRIMARY) HYPERTENSION Qualifiers: Hypertension type: essential hypertension Qualified Code(s): I10 - Essential (primary) hypertension Assessment/Plan (1) Sepsis Assessment/Plan: -improving -cultures growing ESBL and enterococcus -anaerobic culture not yet resulted -on ertapenem and vancomycin Code(s): A41.9 - SEPSIS, UNSPECIFIED ORGANISM Qualifiers: Sepsis type: sepsis due to unspecified organism Qualified Code(s): A41.9 - Sepsis, unspecified organism (2) Acute cholangitis due to calculus of bile duct with obstruction Assessment/Plan: -perc cholecystotomy tube placed -antibiotics as above -will call family today to set up family meeting Code(s): K80.33 - CALCULUS OF BILE DUCT W ACUTE CHOLANGITIS WITH OBSTRUCTION (3) Dementia with behavioral disturbance Assessment/Plan: -monitor -continue remeron Code(s): F03.91 - UNSPECIFIED DEMENTIA WITH BEHAVIORAL DISTURBANCE Qualifiers: Dementia type: unspecified type Qualified Code(s): F03.91 - Unspecified dementia with behavioral disturbance (4) Transaminitis Assessment/Plan: -with hyperbilirubinemia -secondary to acute cholecystitis -improving with decompression with tube Code(s): R74.0 - NONSPEC ELEV OF LEVELS OF TRANSAMNS & LACTIC ACID DEHYDRGNSE (5) Hypertension Assessment/Plan: -continue metoprolol -increase amlodipine to 10mg Code(s): I10 - ESSENTIAL (PRIMARY) HYPERTENSION Qualifiers: Hypertension type: essential hypertension Qualified Code(s): I10 - Essential (primary) hypertension
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
[2018-09-19] MEDS: VANCOMYCIN 1 GRAM (PRE-DOCKED) 1,000 MG/250 ML BAG IVPB SCH (15:50)
[2018-09-19] MEDS: MIRTAZAPINE 15 MG TABLET (FP) GT SCH (22:54)
[2018-09-20] MEDS: HEPARIN NA (PORCINE) 5,000 UNITS/ML 1ML VIAL SQ SCH ×3 (05:51→21:42)
[2018-09-20 08:10] LABS: BASO % 0.5 % (0-2.0); EOS % 5.3 % (0-4.5); HEMATOCRIT 32.5 % (35.4-49); MCH 33.9 pg (25.7-33.7); MCHC 33.9 g/dl (32.0-35.9); MEAN CELL VOLUME 99.9 fl (80-96); MONO % 11.5 % (3.8-10.2); NEUT % 56.7 % (42.8-82.8); PLATELET COUNT 225 K/MM3 (134-434); RBC 3.26 M/mm3 (4.00-5.60); RDW 13.5 % (11.9-15.9); WHITE BLOOD COUNT 5.6 K/mm3 (4.0-10.0)
--- NOTE | 2018-09-20 08:11 | PN ---
Physical Exam: SUBJECTIVE: Patient seen and examined resting in bed. afebrile since wed. hemodynamically stable. mental status improved, complains of pain, can answer yes and no. OBJECTIVE: Vital Signs Period Temp Pulse Resp BP Sys/Hernandez Pulse Ox Last 24 Hr 97.5 F-99.2 F 60-82 18-22 149-184/70-98 98-98 GENERAL: in moderate distress HEAD: Normal with no signs of trauma. EYES: +scleral icterus EARS, NOSE, THROAT: dry mucous membranes. NECK: supple LUNGS: Breath sounds equal, clear to auscultation bilaterally. HEART: tachy regular, normal S1 and S2 ABDOMEN: normoactive bowel sounds, distended, soft, + guarding ruq. cholecystostomy tube draining dark green bile LOWER EXTREMITIES: warm, well-perfused. No peripheral edema. NEUROLOGICAL: agitated PSYCHIATRIC: unable to assess SKIN: Warm, dry Laboratory Results - last 24 hr 09/19/18 05:30 Total Bilirubin 1.0 Direct Bilirubin 0.8 H AST 27 ALT 59 Alkaline Phosphatase 154 H Total Protein 5.5 L Albumin 2.2 L Active Medications Generic Name Dose Route Start Last Admin Trade Name Freq PRN Reason Stop Dose Admin Amlodipine Besylate 10 mg 09/20/18 10:00 Norvasc - GT DAILY [facility] Heparin Sodium (Porcine) 5,000 unit 09/18/18 22:00 09/20/18 05:51 Heparin - SQ 5,000 unit TID [facility] Administration Vancomycin HCl 1,000 mg in 250 mls @ 200 mls/hr 09/16/18 15:00 09/19/18 15:50 Vancomycin (Pre-Docked) IVPB 200 mls/hr DAILY@1500 [facility] Administration Protocol Ertapenem 1 gm/ Sodium 50 mls @ 100 mls/hr 09/18/18 20:00 09/19/18 09:59 Chloride IVPB 100 mls/hr DAILY [facility] Administration Lactated Ringer's 1,000 ml in 1,000 mls @ 50 mls/hr 09/19/18 09:43 09/19/18 10:00 Lactated Ringers Solution IV 50 mls/hr ASDIR [facility] Administration Metoprolol Tartrate 100 mg 09/16/18 22:00 09/19/18 22:54 Lopressor - GT 100 mg BID [facility] Administration Mirtazapine 15 mg 09/15/18 22:00 09/19/18 22:54 Remeron - GT 15 mg HS [facility] Administration ASSESSMENT/PLAN: This is an 87 year old male with PMH of multiple admissions for acute cholecustitis s/p cholecystostomy tube, HTN, Anemia, Dementia who presents from [place] due to abd pain, n/v and fever. severe sespsis due to recurrent acute cholecystitis htn anemia dementia -s/p Perc cholecytostomy -blood cultures polymicrobial, continue ertapenem for 10 more days, stop vanco add po flagyl, picc line tomorrow -ID consult appreciated -s/p surgery and GI eval: not a surgery candidate, may get ERCP if family chooses to undergo the risk -plan family meeting tomorrow with and son at 1030 am and dc with picc line Visit type - Emergency Visit Emergency Visit: Yes ED Registration Date: 09/15/18 Care time: The patient presented to the Emergency Department on the above date and was hospitalized for further evaluation of their emergent condition. - New Patient This patient is new to me today: No - Critical Care Critical Care patient: No - Discharge Referral Referred to [facility] Med P.C.: No
[2018-09-20 08:24] LABS: BLOOD UREA NITROGEN 22.3 mg/dL (7-18); CALCIUM 7.9 mg/dL (8.5-10.1); MAGNESIUM 2.3 mg/dL (1.8-2.4); PHOSPHOROUS 3.5 mg/dL (2.5-4.9); POTASSIUM 4.1 mmol/L (3.5-5.1)
[2018-09-20] MEDS ORDERED: PT OWN MED DRAWER 7, Y5N ONE (08:49)
[2018-09-20] MEDS: amLODIPine BESYLATE 5 MG TABLET (FP) GT SCH ×2 (08:56→09:50)
[2018-09-20] MEDS: METOPROLOL TARTRATE 50 MG TABLET (FP) GT SCH ×3 (08:56→21:41)
[2018-09-20] MEDS: LACTATED RINGERS SOLUTION 1,000 ML/1,000 ML INFUS.BAG IV SCH (08:56)
[2018-09-20] MEDS: ERTAPENEM SODIUM 1 GM in SODIUM CHLORIDE 50 ML IVPB SCH (09:49)
--- NOTE | 2018-09-20 11:14 | PN ---
Teaching Attending Note Name of Resident: Delmy Olivera ATTENDING PHYSICIAN STATEMENT I saw and evaluated the patient. I reviewed the resident's note and discussed the case with the resident. I agree with the resident's findings and plan as documented. SUBJECTIVE: Mr Menezes says he feels bad. Says he hurts everywhere. at bedside and notes he isn't eating well OBJECTIVE: Last Vital Signs Temp Pulse Resp BP Pulse Ox 36.6 C 64 20 164/72 98 09/20/18 08:58 09/20/18 08:58 09/20/18 08:59 09/20/18 08:58 09/20/18 08:59 Gen: nad Pulm: ctab w/o w/r/r CV: rrr w/o m/r/g Abd: +bs, s/nt/nd, tube in place Ext: no c/c/e CBC, BMP 09/20/18 05:30 09/20/18 05:30 ASSESSMENT AND PLAN: (1) Sepsis Assessment/Plan: -resolved -cultures growing ESBL and enterococcus -anaerobic culture not yet resulted -on ertapenem and vancomycin -ID following Code(s): A41.9 - SEPSIS, UNSPECIFIED ORGANISM Qualifiers: Sepsis type: sepsis due to unspecified organism Qualified Code(s): A41.9 - Sepsis, unspecified organism (2) Acute cholangitis due to calculus of bile duct with obstruction Assessment/Plan: -perc cholecystotomy tube placed -antibiotics as above -spoke with today -this is a chronic problem beginning 4 years ago -patient now with multiple admissions for tube removal -needs tube indefinitely -suspect patient will pull out tube again in the future -because this issue has been present for extended period of time, suspect he is a poor surgical candidate secondary to chronicity -d/w considering hospice if issue occurs again -requests I speak with the son tomorrow when he is here Code(s): K80.33 - CALCULUS OF BILE DUCT W ACUTE CHOLANGITIS WITH OBSTRUCTION (3) Dementia with behavioral disturbance Assessment/Plan: -monitor -continue remeron Code(s): F03.91 - UNSPECIFIED DEMENTIA WITH BEHAVIORAL DISTURBANCE Qualifiers: Dementia type: unspecified type Qualified Code(s): F03.91 - Unspecified dementia with behavioral disturbance (4) Transaminitis Assessment/Plan: -with hyperbilirubinemia -secondary to acute cholecystitis -improving with decompression with tube Code(s): R74.0 - NONSPEC ELEV OF LEVELS OF TRANSAMNS & LACTIC ACID DEHYDRGNSE (5) Hypertension Assessment/Plan: -continue metoprolol -increased amlodipine to 10mg -monitor -may need further adjustment Code(s): I10 - ESSENTIAL (PRIMARY) HYPERTENSION Qualifiers: Hypertension type: essential hypertension Qualified Code(s): I10 - Essential (primary) hypertension Problem List - Problems (1) Sepsis Code(s): A41.9 - SEPSIS, UNSPECIFIED ORGANISM Qualifiers: Sepsis type: sepsis due to unspecified organism Qualified Code(s): A41.9 - Sepsis, unspecified organism (2) Acute cholangitis due to calculus of bile duct with obstruction Code(s): K80.33 - CALCULUS OF BILE DUCT W ACUTE CHOLANGITIS WITH OBSTRUCTION (3) Dementia with behavioral disturbance Code(s): F03.91 - UNSPECIFIED DEMENTIA WITH BEHAVIORAL DISTURBANCE Qualifiers: Dementia type: unspecified type Qualified Code(s): F03.91 - Unspecified dementia with behavioral disturbance (4) Transaminitis Code(s): R74.0 - NONSPEC ELEV OF LEVELS OF TRANSAMNS & LACTIC ACID DEHYDRGNSE (5) Hypertension Code(s): I10 - ESSENTIAL (PRIMARY) HYPERTENSION Qualifiers: Hypertension type: essential hypertension Qualified Code(s): I10 - Essential (primary) hypertension
--- NOTE | 2018-09-20 15:11 | PN ---
Progress Note, Physician History of Present Illness: AWAKE BUT CONFUSED NO ACUTE DISTRESS TEMPS DOWN AFEBRILE WBC WNL - Current Medication List Current Medications: Active Medications Amlodipine Besylate (Norvasc -) 10 mg GT DAILY [facility] Last Admin: 09/20/18 09:50 Dose: Not Given Heparin Sodium (Porcine) (Heparin -) 5,000 unit SQ TID [facility] Last Admin: 09/20/18 05:51 Dose: 5,000 unit Vancomycin HCl (Vancomycin (Pre-Docked)) 1,000 mg in 250 mls @ 200 mls/hr IVPB DAILY@1500 [facility]; Protocol Last Admin: 09/19/18 15:50 Dose: 200 mls/hr Ertapenem 1 gm/ Sodium (Chloride) 50 mls @ 100 mls/hr IVPB DAILY [facility] Last Admin: 09/20/18 09:49 Dose: Not Given Lactated Ringer's (Lactated Ringers Solution) 1,000 ml in 1,000 mls @ 50 mls/ hr IV ASDIR [facility] Last Admin: 09/20/18 08:56 Dose: 50 mls/hr Metoprolol Tartrate (Lopressor -) 100 mg GT BID [facility] Last Admin: 09/20/18 09:49 Dose: Not Given Mirtazapine (Remeron -) 15 mg GT HS [facility] Last Admin: 09/19/18 22:54 Dose: 15 mg - Objective Vital Signs: Vital Signs Temperature 97.9 F 09/20/18 08:58 Pulse Rate 64 09/20/18 08:58 Respiratory Rate 20 09/20/18 08:59 Blood Pressure 164/72 09/20/18 08:58 O2 Sat by Pulse Oximetry (%) 98 09/20/18 08:59 Constitutional: Yes: No Distress Eyes: Yes: Conjunctiva Clear Cardiovascular: Yes: Regular Rate and Rhythm, S1, S2 Respiratory: Yes: Diminished Gastrointestinal: Yes: Normal Bowel Sounds, Soft, Other (+ RUQ biliary drain). No: Tenderness Labs: CBC, BMP 09/20/18 05:30 09/20/18 05:30 INR, PTT INR 1.19 (0.83-1.09) H 09/15/18 13:32 Assessment/Plan ESBL/ POLYMICROBIAL BACTEREMIA CHOLEDOCHOLITHIASIS FEVER/ LEUKOCYTOSIS IMPROVED LFTS IMPROVED CONTINUE ERTAPENEM D/C VANCOMYCIN FLAGYL 500MG Q8H PICC FOR OUTPATIENT ANTIBIOTICS (ADDITIONAL 10D) CONTACT PRECAUTIONS
[2018-09-20] MEDS: VANCOMYCIN 1 GRAM (PRE-DOCKED) 1,000 MG/250 ML BAG IVPB SCH (16:29)
[2018-09-20] MEDS: MIRTAZAPINE 15 MG TABLET (FP) GT SCH (21:41)
[2018-09-21] MEDS: HEPARIN NA (PORCINE) 5,000 UNITS/ML 1ML VIAL SQ SCH ×3 (06:08→21:16)
[2018-09-21] MEDS: LACTATED RINGERS SOLUTION 1,000 ML/1,000 ML INFUS.BAG IV SCH (10:06)
[2018-09-21] MEDS: ERTAPENEM SODIUM 1 GM in SODIUM CHLORIDE 50 ML IVPB SCH (10:06)
[2018-09-21] MEDS: amLODIPine BESYLATE 5 MG TABLET (FP) GT SCH (10:07)
[2018-09-21] MEDS: METOPROLOL TARTRATE 50 MG TABLET (FP) GT SCH ×2 (10:07→21:16)
--- NOTE | 2018-09-21 12:53 | PN ---
Physical Exam: SUBJECTIVE: Patient seen and examined resting in bed. afebrile since wed. hemodynamically stable. mental status improved, complains of pain, can answer yes and no. OBJECTIVE: Vital Signs Period Temp Pulse Resp BP Sys/Hernandez Pulse Ox Last 24 Hr 97.5 F-98.5 F 62-74 18-20 158-181/69-78 96-96 GENERAL: in moderate distress HEAD: Normal with no signs of trauma. EYES: +scleral icterus EARS, NOSE, THROAT: dry mucous membranes. NECK: supple LUNGS: Breath sounds equal, clear to auscultation bilaterally. HEART: tachy regular, normal S1 and S2 ABDOMEN: normoactive bowel sounds, distended, soft, + voluntary guarding ruq, ruq pain. cholecystostomy tube draining dark green bile LOWER EXTREMITIES: warm, well-perfused. No peripheral edema. NEUROLOGICAL: agitated PSYCHIATRIC: unable to assess SKIN: Warm, dry Laboratory Results - last 24 hr 09/15/18 13:32 VBG pH 7.43 H POC VBG pCO2 36.4 L POC VBG pO2 43.3 H VBG HCO3 23.9 VBG O2 Sat (Anjali) 78.1 VBG Base Excess 0.3 Active Medications Generic Name Dose Route Start Last Admin Trade Name Freq PRN Reason Stop Dose Admin Amlodipine Besylate 10 mg 09/20/18 10:00 09/21/18 10:07 Norvasc - GT 10 mg DAILY [facility] Administration Heparin Sodium (Porcine) 5,000 unit 09/18/18 22:00 09/21/18 06:08 Heparin - SQ 5,000 unit TID [facility] Administration Ertapenem 1 gm/ Sodium 50 mls @ 100 mls/hr 09/18/18 20:00 09/21/18 10:06 Chloride IVPB 100 mls/hr DAILY [facility] Administration Lactated Ringer's 1,000 ml in 1,000 mls @ 50 mls/hr 09/19/18 09:43 09/21/18 10:06 Lactated Ringers Solution IV 50 mls/hr ASDIR [facility] Administration Metronidazole 500 mg in 100 mls @ 100 mls/hr 09/20/18 15:15 09/21/18 10:07 Flagyl 500mg Premixed Ivpb - IVPB 100 mls/hr Q8H-IV [facility] Administration Metoprolol Tartrate 100 mg 09/16/18 22:00 09/21/18 10:07 Lopressor - GT 100 mg BID [facility] Administration Mirtazapine 15 mg 09/15/18 22:00 09/20/18 21:41 Remeron - GT 15 mg HS [facility] Administration ASSESSMENT/PLAN: This is an 87 year old male with PMH of multiple admissions for acute cholecustitis s/p cholecystostomy tube, HTN, Anemia, Dementia who presents from [place] due to abd pain, n/v and fever. severe sespsis due to recurrent acute cholecystitis htn anemia dementia -s/p Perc cholecytostomy -blood cultures polymicrobial, continue ertapenem for 9 more days, stop vanco add po flagyl, picc line tomorrow -ID consult appreciated -s/p surgery and GI eval: not a surgery candidate, may get ERCP if family chooses to undergo the risk -plan family meeting tomorrow and dc with picc line Visit type - Emergency Visit Emergency Visit: Yes ED Registration Date: 09/15/18 Care time: The patient presented to the Emergency Department on the above date and was hospitalized for further evaluation of their emergent condition. - New Patient This patient is new to me today: No - Critical Care Critical Care patient: No - Discharge Referral Referred to [facility] Med P.C.: No
--- NOTE | 2018-09-21 13:11 | PN ---
Teaching Attending Note Name of Resident: Delmy Olivera ATTENDING PHYSICIAN STATEMENT I saw and evaluated the patient. I reviewed the resident's note and discussed the case with the resident. I agree with the resident's findings and plan as documented. SUBJECTIVE: Unable to obtain OBJECTIVE: Last Vital Signs Temp Pulse Resp BP Pulse Ox 36.9 C 63 20 181/71 H 96 09/21/18 09:00 09/21/18 09:00 09/21/18 09:00 09/21/18 09:00 09/21/18 09:00 Gen: nad Pulm: ctab w/o w/r/r CV: rrr w/o m/r/g Abd: +bs, s/nt/nd, tube in place Ext: no c/c/e CBC, BMP 09/20/18 05:30 09/20/18 05:30 ASSESSMENT AND PLAN: (1) Sepsis Assessment/Plan: -resolved -cultures growing ESBL and enterococcus -anaerobic culture growing prevotella -now on ertapenem and flagyl -will need 10 days -PICC line for outpatient antibiotics Code(s): A41.9 - SEPSIS, UNSPECIFIED ORGANISM Qualifiers: Sepsis type: sepsis due to unspecified organism Qualified Code(s): A41.9 - Sepsis, unspecified organism (2) Acute cholangitis due to calculus of bile duct with obstruction Assessment/Plan: -perc cholecystostomy tube placed and draining -will need indefinitely Code(s): K80.33 - CALCULUS OF BILE DUCT W ACUTE CHOLANGITIS WITH OBSTRUCTION (3) Dementia with behavioral disturbance Assessment/Plan: -monitor -continue remeron Code(s): F03.91 - UNSPECIFIED DEMENTIA WITH BEHAVIORAL DISTURBANCE Qualifiers: Dementia type: unspecified type Qualified Code(s): F03.91 - Unspecified dementia with behavioral disturbance (4) Transaminitis Assessment/Plan: -resolved Code(s): R74.0 - NONSPEC ELEV OF LEVELS OF TRANSAMNS & LACTIC ACID DEHYDRGNSE (5) Hypertension Assessment/Plan: -continue metoprolol and amlodipine -will add third agent for better control Code(s): I10 - ESSENTIAL (PRIMARY) HYPERTENSION Qualifiers: Hypertension type: essential hypertension Qualified Code(s): I10 - Essential (primary) hypertension Problem List - Problems (1) Sepsis Code(s): A41.9 - SEPSIS, UNSPECIFIED ORGANISM Qualifiers: Sepsis type: sepsis due to unspecified organism Qualified Code(s): A41.9 - Sepsis, unspecified organism (2) Acute cholangitis due to calculus of bile duct with obstruction Code(s): K80.33 - CALCULUS OF BILE DUCT W ACUTE CHOLANGITIS WITH OBSTRUCTION (3) Dementia with behavioral disturbance Code(s): F03.91 - UNSPECIFIED DEMENTIA WITH BEHAVIORAL DISTURBANCE Qualifiers: Dementia type: unspecified type Qualified Code(s): F03.91 - Unspecified dementia with behavioral disturbance (4) Transaminitis Code(s): R74.0 - NONSPEC ELEV OF LEVELS OF TRANSAMNS & LACTIC ACID DEHYDRGNSE (5) Hypertension Code(s): I10 - ESSENTIAL (PRIMARY) HYPERTENSION Qualifiers: Hypertension type: essential hypertension Qualified Code(s): I10 - Essential (primary) hypertension
[2018-09-21] MEDS: MIRTAZAPINE 15 MG TABLET (FP) GT SCH (21:16)
[2018-09-22] MEDS ORDERED: MORPHINE SULFATE 2 MG/ML VIAL IVPUSH ONE (00:58)
[2018-09-22] MEDS: HEPARIN NA (PORCINE) 5,000 UNITS/ML 1ML VIAL SQ SCH ×2 (05:13→13:51)
[2018-09-22 06:55] LABS: BASO % 0.6 % (0-2.0); EOS % 4.4 % (0-4.5); HEMOGLOBIN 9.9 GM/dL (11.7-16.9); LYMPH % 24.2 % (8-40); MCHC 34.2 g/dl (32.0-35.9); MEAN CELL VOLUME 99.3 fl (80-96); MEAN PLT VOLUME 8.9 fl (7.5-11.1); MONO % 10.8 % (3.8-10.2); PLATELET COUNT 230 K/MM3 (134-434); RBC 2.92 M/mm3 (4.00-5.60); RDW 13.7 % (11.9-15.9); WHITE BLOOD COUNT 7.9 K/mm3 (4.0-10.0)
[2018-09-22 07:27] LABS: ALBUMIN 2.2 g/dl (3.4-5.0); BILIRUBIN,TOTAL 0.8 mg/dL (0.2-1); BLOOD UREA NITROGEN 26.2 mg/dL (7-18); CALCIUM 7.6 mg/dL (8.5-10.1); CREATININE 0.8 mg/dL (0.55-1.3); POTASSIUM 4.3 mmol/L (3.5-5.1); TOT PROT 5.7 g/dl (6.4-8.2)
--- NOTE | 2018-09-22 09:25 | PN ---
Physical Exam: SUBJECTIVE: Patient seen and examined resting in bed. afebrile since wed. hemodynamically stable. mental status improved, complains of pain, can answer yes and no. OBJECTIVE: Vital Signs Period Temp Pulse Resp BP Sys/Hernandez Pulse Ox Last 24 Hr 97.8 F-98.8 F 62-85 18-20 143-172/69-81 96-96 GENERAL: in moderate distress HEAD: Normal with no signs of trauma. EYES: +scleral icterus EARS, NOSE, THROAT: dry mucous membranes. NECK: supple LUNGS: Breath sounds equal, clear to auscultation bilaterally. HEART: tachy regular, normal S1 and S2 ABDOMEN: normoactive bowel sounds, distended, soft, + voluntary guarding ruq, ruq pain. cholecystostomy tube draining dark green bile LOWER EXTREMITIES: warm, well-perfused. No peripheral edema. NEUROLOGICAL: agitated PSYCHIATRIC: unable to assess SKIN: Warm, dry Laboratory Results - last 24 hr 09/22/18 09/22/18 05:37 05:37 WBC 7.9 RBC 2.92 L Hgb 9.9 L Hct 29.0 L MCV 99.3 H MCH 34.0 H MCHC 34.2 RDW 13.7 Plt Count 230 MPV 8.9 Absolute Neuts (auto) 4.7 Neutrophils % 60.0 Lymphocytes % 24.2 Monocytes % 10.8 H Eosinophils % 4.4 Basophils % 0.6 Nucleated RBC % 0 Sodium 143 Potassium 4.3 Chloride 108 H Carbon Dioxide 30 Anion Gap 5 L BUN 26.2 H Creatinine 0.8 Est GFR (CKD-EPI)AfAm 92.44 Est GFR (CKD-EPI)NonAf 79.76 Random Glucose 82 Calcium 7.6 L Total Bilirubin 0.8 AST 42 H ALT 64 H Alkaline Phosphatase 243 H Total Protein 5.7 L Albumin 2.2 L Active Medications Generic Name Dose Route Start Last Admin Trade Name Freq PRN Reason Stop Dose Admin Amlodipine Besylate 10 mg 09/20/18 10:00 09/21/18 10:07 Norvasc - GT 10 mg DAILY [facility] Administration Heparin Sodium (Porcine) 5,000 unit 09/18/18 22:00 09/22/18 05:13 Heparin - SQ 5,000 unit TID [facility] Administration Lactated Ringer's 1,000 ml in 1,000 mls @ 50 mls/hr 09/19/18 09:43 09/21/18 10:06 Lactated Ringers Solution IV 50 mls/hr ASDIR [facility] Administration Metronidazole 500 mg in 100 mls @ 100 mls/hr 09/20/18 15:15 09/22/18 01:26 Flagyl 500mg Premixed Ivpb - IVPB 100 mls/hr Q8H-IV [facility] Administration Ertapenem 1 gm/ Sodium 50 mls @ 100 mls/hr 09/22/18 10:00 Chloride IVPB DAILY [facility] Metoprolol Tartrate 100 mg 09/22/18 10:00 Lopressor - GT BID [facility] Mirtazapine 15 mg 09/22/18 22:00 Remeron - GT HS [facility] ASSESSMENT/PLAN: This is an 87 year old male with PMH of multiple admissions for acute cholecustitis s/p cholecystostomy tube, HTN, Anemia, Dementia who presents from [place] due to abd pain, n/v and fever. severe sespsis due to recurrent acute cholecystitis htn anemia dementia -s/p Perc cholecytostomy -blood cultures polymicrobial, continue ertapenem for 9 more days, stop vanco add po flagyl, picc line tomorrow -ID consult appreciated -s/p surgery and GI eval: not a surgery candidate, may get ERCP if family chooses to undergo the risk -added hctz for better bp control -plan family meeting and dc with picc line
[2018-09-22] MEDS: amLODIPine BESYLATE 5 MG TABLET (FP) GT SCH (09:39)
[2018-09-22] MEDS: LACTATED RINGERS SOLUTION 1,000 ML/1,000 ML INFUS.BAG IV SCH (09:52)
[2018-09-22] MEDS ORDERED: HYDROCHLOROTHIAZIDE 12.5 MG CAPSULE (FP) PO SCH (10:00)
[2018-09-22] MEDS ORDERED: ERTAPENEM SODIUM 1 GM in SODIUM CHLORIDE 50 ML IVPB SCH (10:00)
[2018-09-22] MEDS ORDERED: METOPROLOL TARTRATE 50 MG TABLET (FP) GT SCH (10:00)
--- NOTE | 2018-09-22 10:16 | DS ---
Physical Exam: SUBJECTIVE: Patient seen and examined resting in bed. afebrile since fri. hemodynamically stable. mental status improved, complains of pain, can answer yes and no. Discharge and patients condition discussed extensively with and son on the phone, all questions answered. OBJECTIVE: Vital Signs Period Temp Pulse Resp BP Sys/Hernandez Pulse Ox Last 24 Hr 97.8 F-98.8 F 62-85 18-20 143-172/69-81 96-96 PHYSICAL EXAM GENERAL: in moderate distress HEAD: Normal with no signs of trauma. EYES: +scleral icterus EARS, NOSE, THROAT: dry mucous membranes. NECK: supple LUNGS: Breath sounds equal, clear to auscultation bilaterally. HEART: tachy regular, normal S1 and S2 ABDOMEN: normoactive bowel sounds, distended, soft, + voluntary guarding ruq, ruq pain. cholecystostomy tube draining dark green bile LOWER EXTREMITIES: warm, well-perfused. No peripheral edema. NEUROLOGICAL: agitated PSYCHIATRIC: unable to assess SKIN: Warm, dry LABS Laboratory Results - last 24 hr 09/22/18 09/22/18 05:37 05:37 WBC 7.9 RBC 2.92 L Hgb 9.9 L Hct 29.0 L MCV 99.3 H MCH 34.0 H MCHC 34.2 RDW 13.7 Plt Count 230 MPV 8.9 Absolute Neuts (auto) 4.7 Neutrophils % 60.0 Lymphocytes % 24.2 Monocytes % 10.8 H Eosinophils % 4.4 Basophils % 0.6 Nucleated RBC % 0 Sodium 143 Potassium 4.3 Chloride 108 H Carbon Dioxide 30 Anion Gap 5 L BUN 26.2 H Creatinine 0.8 Est GFR (CKD-EPI)AfAm 92.44 Est GFR (CKD-EPI)NonAf 79.76 Random Glucose 82 Calcium 7.6 L Total Bilirubin 0.8 AST 42 H ALT 64 H Alkaline Phosphatase 243 H Total Protein 5.7 L Albumin 2.2 L HOSPITAL COURSE: Date of Admission:09/15/18 This is an 87 year old male with PMH of multiple admissions for acute cholecustitis s/p cholecystostomy tube, HTN, Anemia, Dementia [facility]/v and fever. He has had severeal recent admissions for acyte cholecystitis and bacteremia due to pulling out his chilecystostomy tube. patient was deemed a poor surgical candidate in the past. He recently pulled out his cholecystostomy tube in the ch[facility]. CT abdomen again revealed acute cholecystitis and blood cultures revealed bacteremia. He was admited due to severe sespsis due to recurrent acute cholecystitis and polymicrobial bacteremia (esbl, enterococcus, proteus). he underwent per cholecytostomy and was treated with IV abx. he was discharged with a picc line to receive 8 more days of ertapenem and flagyl. HCTZ was added for better BP control Date of Discharge: 09/22/18 Minutes to complete discharge: 35 Discharge Summary Reason For Visit: SEPSIS Current Active Problems Acute cholangitis due to calculus of bile duct with obstruction (Acute) Sepsis (Acute) Condition: Stable - Instructions Diet, Activity, Other Instructions: you were admitted due to gall bladder infection and blood ifection, similar to prior admission. This occurred because the cholecystostoly tube was pulled out. A new cholecystolstomy tube was placed and you were treated with IV antibiotics. You will need to continue iv antibiotic treatment, which is why a picc line was placed in your arm to receive infusions. Please note the following changes to medications Take hydrochlorothiazide 12.5 md twice a day in addition to ther blood pressure medication You will need to get infusion of Ertapenem 1 gram daily and Flagyl 500 mg every 8 hours for 8 more days starting today Follow up with primary doctor in 1 week. Please return to the hospital if severe symptoms recur Disposition: RESIDENTIAL FACILITY - Home Medications Comprehensive Discharge Medication List: Ambulatory Orders Ascorbate Calcium [Vitamin C] 500 mg GT DAILY 03/11/17 Cyanocobalamin (Vitamin B-12) [Vitamin B-12] 1,000 mcg GT DAILY 03/11/17 Metoprolol Tartrate [Lopressor -] 100 mg GT BID tablet 03/26/17 Clonazepam [Klonopin] 0.25 mg GT BID 08/02/17 Mirtazapine [Remeron -] 15 mg GT HS 08/02/17 Acetaminophen [Tylenol] 650 mg PO BID PRN 06/28/18 Propylene Glycol/Peg 400/Pf [Systane 0.3-0.4% Eye Drop] 1 each OU Q12H 06/28/18 Amlodipine Besylate [Norvasc -] 5 mg PO DAILY tablet 07/07/18 Ursodiol [Actigal -] 300 mg PO BID capsule 07/07/18 Calcium Carbonate/Vitamin D3 [Calcium 500-Vit D3 400 Tablet] 1 each PO DAILY Mupirocin Cream [Bactroban 2% Cream -] 1 applic TP DAILY 09/15/18 Ertapenem Sodium [Invanz -] 1 gm IVPB DAILY vial 09/22/18 Metronidazole/Sodium Chloride [Metronidazole 500 mg/100 ml] 500 mg IV Q8H #24 ml 09/22/18 This patient is new to me today: No Emergency Visit: Yes ED Registration Date: 09/15/18 Care time: The patient presented to the Emergency Department on the above date and was hospitalized for further evaluation of their emergent condition. Critical Care patient: No - Discharge Referral Referred to [facility] No
[2018-09-22 18:07] VITALS: BP 169/66; PULSE 69; TEMP 98.5
[2018-09-22] MEDS ORDERED: MIRTAZAPINE 15 MG TABLET (FP) GT SCH (22:00)
== END 2018-09-22 18:37 | DRG 872 ==
LOC: JER 13:02 → JERBED 17:20 → J4W 09-16 00:59 → J7W 09-21 23:30
PROVIDERS: ADMIT Internal Medicine; ATTEND Internal Medicine
PROC: 0F9430Z Drainage of Gallbladder with Drainage Device, Percutaneous Approach (ICD-10-PCS; principal; 2018-09-16)
PROC: 05HY33Z Insertion of Infusion Device into Upper Vein, Percutaneous Approach (ICD-10-PCS; 2018-09-22)
PROC: B51MZZA Fluoroscopy of Right Upper Extremity Veins, Guidance (ICD-10-PCS; 2018-09-22)
PROC: B54MZZA Ultrasonography of Right Upper Extremity Veins, Guidance (ICD-10-PCS; 2018-09-22)
DX: A41.59 Other Gram-negative sepsis (principal); E87.2 Acidosis; K80.33 Calculus of bile duct with acute cholangitis with obstruction; R65.20 Severe sepsis without septic shock; R56.9 Unspecified convulsions; F02.80 Dementia in other diseases classified elsewhere, unspecified severity, without behavioral disturbance, psychotic disturbance, mood disturbance, and anxiety; G30.9 Alzheimer's disease, unspecified; Z93.1 Gastrostomy status; I10 Essential (primary) hypertension; D64.9 Anemia, unspecified; H35.30 Unspecified macular degeneration; R74.0 Nonspecific elevation of levels of transaminase and lactic acid dehydrogenase [LDH]; Z87.891 Personal history of nicotine dependence
CPT/HCPCS: 36415; 36569; 47490; 71045-TC-FY; 74177-TC; 77001-TC-FY; 80048; 80053; 80076; 81003; 82803; 83605; 83735; 84100; 84484; 85025; 85610; 85730; 87040; 87070; 87075; 87076; 87086; 87102; 87116; 87186; 87205; 87206; 87210; 87899; 93005; 93010; 97161-GP; 99284-25; A4358; C1729; C1751; C1769; J0131; J1644; J7030

== ENCOUNTER 2018-10-26 11:30 | Inpatient (IN) | payer OTHER ==
[2018-10-26 12:17] VITALS: BMI 22.6
--- NOTE | 2018-10-26 12:32 | PDOC ---
History of Present Illness - General Chief Complaint: Pain, Acute Stated Complaint: abdominal pain/drainage tube replacement Time Seen by Provider: 10/26/18 12:31 Past History - Past Medical History Allergies/Adverse Reactions: Allergies Allergy/AdvReac Type Severity Reaction Status Date / Time No Known Allergies Allergy Verified 10/26/18 12:08 Home Medications: Ambulatory Orders Ascorbate Calcium [Vitamin C] 500 mg GT DAILY 03/11/17 Cyanocobalamin (Vitamin B-12) [Vitamin B-12] 1,000 mcg GT DAILY 03/11/17 Metoprolol Tartrate [Lopressor -] 100 mg GT BID tablet 03/26/17 Clonazepam [Klonopin] 0.25 mg GT BID 08/02/17 Mirtazapine [Remeron -] 15 mg GT HS 08/02/17 Acetaminophen [Tylenol] 650 mg PO BID PRN 06/28/18 Propylene Glycol/Peg 400/Pf [Systane 0.3-0.4% Eye Drop] 1 each OU Q12H 06/28/18 Amlodipine Besylate [Norvasc -] 5 mg PO DAILY tablet 07/07/18 Ursodiol [Actigal -] 300 mg PO BID capsule 07/07/18 Calcium Carbonate/Vitamin D3 [Calcium 500-Vit D3 400 Tablet] 1 each PO DAILY Mupirocin Cream [Bactroban 2% Cream -] 1 applic TP DAILY 09/15/18 Ertapenem Sodium [Invanz -] 1 gm IVPB DAILY vial 09/22/18 Metronidazole/Sodium Chloride [Metronidazole 500 mg/100 ml] 500 mg IV Q8H #24 ml 09/22/18 Anemia: Yes (b12) COPD: No DVT: No Dementia: Yes (Alzheimers) GI Disorders: Yes (cholecystitis, ERCP w/stone extraction 2014) HTN: Yes Psychiatric Problems: Yes Seizures: Yes (depression,pshycosis (dementia)) - Surgical History Abdominal Surgery: Yes (g.tube,GB TUBE) - Immunization History Immunization Up to Date: No - Suicide/Smoking/Psychosocial Hx Smoking History: Unknown if ever smoked Have you smoked in the past 12 months: No If you are a former smoker, when did you quit?: 30 YRS AGO - 1-2ppd x 20-30 yrs Hx Alcohol Use: No Drug/Substance Use Hx: No Substance Use Type: None Hx Substance Use Treatment: No *Physical Exam - Vital Signs Last Vital Signs Temp Pulse Resp BP Pulse Ox 98.1 F 57 L 18 130/61 99 10/26/18 12:28 10/26/18 11:30 10/26/18 11:30 10/26/18 11:30 10/26/18 11:30 ED Treatment Course - LABORATORY CBC & Chemistry Diagram: 10/26/18 13:30 10/26/18 13:30 Medical Decision Making - Medical Decision Making HPI: 88yo M with PMH of HTN, Anemia, Dementia, Bipolar disorder, G Tube, multiple episodes of cholangitis and known choledocholithiasis s/p cholecystostomy tube sent by [facility] for evaluation of abdominal pain and inadvertent removal of cholecystostomy tube. Patient is able to answer some yes/no questions and is oriented x 3, however history-taking is limited by dementia. Per [facility] paperwork: "T Tube has come out of his Right upper abdomen and was found in the bed, the tube was found in its entirety with tip of tube intact he is complaining of pain to site and the area is firm and tender to touch. He has a low grade temp of 99.3 Insertion site is warm and reddened. Appetite has been very poor. GT bolus feeds of Jevity 1.5 QID to maintain nutrition. he is also on Chopped PO diet but not eating it. Usually likes and will eat breakfast but refuses lunch and dinner, refusing breakfast today saying he does not feel good. He is on Contact Isolation for ESBL in [employer] B /B extensive assist x 2 with transfers."' Per chart review, Patient has had 5 cholecystostomy tube placements as family refused ERCP and cholecystectomy. Patient had either removed the tubes or they had fallen out. Admitted with recurrent biliary sepsis in the past. ROS: not able to ascertain due to patient's dementia PE: General: Awake, alert, and fully oriented x 3, moaning in pain Head: No signs of trauma Eyes: EOMI, sclera anicteric ENT: Dry mucus membranes Neck: Normal ROM, supple Lungs: Lungs clear, Normal breath sounds Cardio: Regular rhythm, S1 and S2 present Abdomen: Diffusely tender, most focal to RUQ. Soft. No guarding, no rebound, no masses. G Tube in place. ?wires for cholecystostomy tube extruding from skin Extremities: Normal range of motion, Distal pulses present SKIN: Warm, Dry, normal turgor Neurologic: Cranial nerves II through XII grossly intact. ED Courses/MDM: DDX including but not limited to acute cholecystitis, ascending cholangitis, sepsis, UTI, bacteremia, anemia, Metabolic Derangement Labs IV fluids Ofirmev Patient will likely require repeat tube placement by IR Patient's with VSS, rectal temp 98.1. Will hold antibiotics for now. 10/26/18 12:43 Patient still in significant pain 2mg morphine ordered Spoke with patient's , Susan Menezes [phone], about the possibility of a procedure. As he has had multiple dislodged cholecystostomy tubes, I asked her whether she has considered ERCP or cholecystectomy. She is considering this , however is concerned that his advanced age and co-morbidities put him at high risk of complications. She requested that I speak with her son John Call to John, , went to [facility]. Will try calling again later. 10/26/18 14:33 Patient became hypotensive in the 70s, repeat systolic 110. Another IV line inserted by myself. Flagyl and Ertapenem started for antibiotic coverage Updated patient's son, John, who concurs with his mother. 10/26/18 14:58 CBC WBC 8.6 K/mm3 (4.0-10.0) 10/26/18 13:30 RBC 3.27 M/mm3 (4.00-5.60) L 10/26/18 13:30 Hgb 11.1 GM/dL (11.7-16.9) L 10/26/18 13:30 Hct 32.4 % (35.4-49) L 10/26/18 13:30 MCV 98.8 fl (80-96) H 10/26/18 13:30 MCH 34.0 pg (25.7-33.7) H 10/26/18 13:30 MCHC 34.4 g/dl (32.0-35.9) 10/26/18 13:30 RDW 13.6 % (11.9-15.9) 10/26/18 13:30 Plt Count 273 K/MM3 (134-434) 10/26/18 13:30 MPV 9.1 fl (7.5-11.1) 10/26/18 13:30 Absolute Neuts (auto) 5.7 K/mm3 (1.5-8.0) 10/26/18 13:30 Neutrophils % 66.1 % (42.8-82.8) 10/26/18 13:30 Lymphocytes % 20.7 % (8-40) 10/26/18 13:30 Monocytes % 9.1 % (3.8-10.2) 10/26/18 13:30 Eosinophils % 3.7 % (0-4.5) 10/26/18 13:30 Basophils % 0.4 % (0-2.0) 10/26/18 13:30 Nucleated RBC % 0 % (0-0) 10/26/18 13:30 No leukocytosis CMP Sodium 139 mmol/L (136-145) 10/26/18 13:30 Potassium 3.9 mmol/L (3.5-5.1) 10/26/18 13:30 Chloride 97 mmol/L (98-107) L 10/26/18 13:30 Carbon Dioxide 37 mmol/L (21-32) H 10/26/18 13:30 Anion Gap 5 MMOL/L (8-16) L 10/26/18 13:30 BUN 43.4 mg/dL (7-18) H 10/26/18 13:30 Creatinine 1.4 mg/dL (0.55-1.3) H 10/26/18 13:30 Est GFR (CKD-EPI)AfAm 51.26 10/26/18 13:30 Est GFR (CKD-EPI)NonAf 44.23 10/26/18 13:30 Random Glucose 93 mg/dL (74-106) 10/26/18 13:30 Lactic Acid 1.5 mmol/L (0.4-2.0) 10/26/18 13:30 Calcium 8.5 mg/dL (8.5-10.1) 10/26/18 13:30 Total Bilirubin 0.4 mg/dL (0.2-1) 10/26/18 13:30 AST 25 U/L (15-37) 10/26/18 13:30 ALT 40 U/L (13-61) 10/26/18 13:30 Alkaline Phosphatase 160 U/L (45-117) H 10/26/18 13:30 Total Protein 7.5 g/dl (6.4-8.2) 10/26/18 13:30 Albumin 2.9 g/dl (3.4-5.0) L 10/26/18 13:30 Lipase 144 U/L (73-393) 10/26/18 13:30 Eelctrolytes unremarkable Elevated BUN and Cr noted, patient is being hydrated. Sent to CT scan with two physician consent for contrast Lipase normal Lactate normal EKG: rate 66, QTc 457, Sinus with PVCs, low voltage QRS 10/26/18 16:24 CTAP: "Clinical information: pain; patient inadvertently removed cholecystostomy tube Multiplanar imaging was performed following the intravenous administration of nonionic contrast. Enteric contrast was not administered. As on a previous CT exam of 09/15/2018 the gallbladder demonstrates moderate overdistention. There is also a small amount of pericholecystic fluid accumulation suggestive of recurrent acute cholecystitis. A percutaneous cholecystostomy tube have been placed on 09/16/2018. This tube is not visualized consistent with the provided clinical history. As on the prior study the common bile duct is dilated with a 1.5 cm diameter. Calculi are again visualized within the common bile duct. Intrahepatic very tract dilatation is again noted. A small amount of intrahepatic biliary tract air is seen which may be on a post procedural basis and/or secondary to infection. Correlate clinically. No evidence of pneumoperitoneum, abscess, free intraperitoneal fluid or bowel obstruction. Percutaneous gastrostomy tube in place. Several small hepatic cysts are again noted. The spleen, pancreas, adrenal glands and kidneys demonstrate no discrete abnormality. Incidental right renal cortical cyst. There is no aortic aneurysm. No definite lymphadenopathy is identified. No CT evidence of acute appendicitis or diverticulitis. There is no gross noncontrast small bowel pathology. The visualized osseous structures demonstrate no obvious acute abnormality. Impression: Findings are noted as discussed above suggestive of recurrent acute cholecystitis. No cholecystostomy tube is seen in place consistent with the provided clinical history. As on the prior study choledocholithiasis is noted as well as intrahepatic and extrahepatic biliary tract dilatation. A small amount of intrahepatic pneumobilia is seen which may be on a postprocedural basis and/or infection. Correlate clinically. " 25mcg fentanyl given; patient appears more comfortable Another fluid bolus ordered Last BP 106 systolic Plan for admission for acute cholecystitis 10/26/18 17:[address] Cooper who accepted patient for med/surg admission under Dr. Medina 10/26/18 17:22 Per inpatient team request, order changed to telemetry. *DC/Admit/Observation/Transfer Diagnosis at time of Disposition: JUAN J (acute kidney injury), Acute cholecystitis Cholecystostomy tube dysfunction Qualifiers: Encounter type: initial encounter Qualified Code(s): T85.518A - Breakdown ( mechanical) of other gastrointestinal prosthetic devices, implants and grafts, initial encounter - Discharge Dispostion Condition at time of disposition: Guarded Decision to Admit order: Yes - Referrals - Patient Instructions - Post Discharge Activity
[2018-10-26] MEDS ORDERED: SODIUM CHLORIDE 1,000 ML IV STA (12:59)
[2018-10-26] MEDS ORDERED: ACETAMINOPHEN 1000 MG/100 ML VIAL (NON FORMULARY) IVPB ONE (12:59)
[2018-10-26] MEDS ORDERED: ACETAMINOPHEN INJECTION 100 ML IVPB ONE (13:12)
[2018-10-26 14:32] LABS: BASO % 0.4 % (0-2.0); EOS % 3.7 % (0-4.5); HEMATOCRIT 32.4 % (35.4-49); HEMOGLOBIN 11.1 GM/dL (11.7-16.9); LYMPH % 20.7 % (8-40); MCHC 34.4 g/dl (32.0-35.9); MEAN CELL VOLUME 98.8 fl (80-96); MEAN PLT VOLUME 9.1 fl (7.5-11.1); MONO % 9.1 % (3.8-10.2); NEUT % 66.1 % (42.8-82.8); PLATELET COUNT 273 K/MM3 (134-434); RBC 3.27 M/mm3 (4.00-5.60); RDW 13.6 % (11.9-15.9); WHITE BLOOD COUNT 8.6 K/mm3 (4.0-10.0)
[2018-10-26 14:33] LABS: PH,URINE 7.5 (5.0-8.0); URINE APPEARANCE CLEAR; URINE BILIRUBIN NEGATIVE (NEGATIVE); URINE COLOR YELLOW; URINE GLUCOSE (UA) NEGATIVE (NEGATIVE); URINE KETONE NEGATIVE (NEGATIVE); URINE LEUK ESTERASE NEGATIVE (NEGATIVE); URINE NITRITE NEGATIVE (NEGATIVE); URINE PROTEIN NEGATIVE (NEGATIVE); URINE UROBILINOGEN 0.2 mg/dL (0.2-1.0)
[2018-10-26] MEDS ORDERED: morphine CARPU-JECT 2 MG/1 ML DISP.SYRIN IVPUSH ONE (14:33)
[2018-10-26] MEDS ORDERED: ERTAPENEM SODIUM 1 GM in SODIUM CHLORIDE 50 ML IVPB ONE (14:41)
[2018-10-26] MEDS ORDERED: MORPHINE SULFATE 2 MG/ML VIAL ONE (14:46)
[2018-10-26 14:58] LABS: ALBUMIN 2.9 g/dl (3.4-5.0); BILIRUBIN,TOTAL 0.4 mg/dL (0.2-1); BLOOD UREA NITROGEN 43.4 mg/dL (7-18); CALCIUM 8.5 mg/dL (8.5-10.1); CREATININE 1.4 mg/dL (0.55-1.3); POTASSIUM 3.9 mmol/L (3.5-5.1); TOT PROT 7.5 g/dl (6.4-8.2)
--- NOTE | 2018-10-26 15:01 | EKG ---
Test Reason : Blood Pressure : / mmHG Vent. Rate : 066 BPM Atrial Rate : 066 BPM P-R Int : 168 ms QRS Dur : 076 ms QT Int : 436 ms P-R-T Axes : 007 073 -08 degrees QTc Int : 457 ms POOR DATA QUALITY, INTERPRETATION MAY BE ADVERSELY AFFECTED SINUS RHYTHM WITH OCCASIONAL PREMATURE VENTRICULAR COMPLEXES LOW VOLTAGE QRS NONSPECIFIC ST ABNORMALITY ABNORMAL QRS-T ANGLE, CONSIDER PRIMARY T WAVE ABNORMALITY ABNORMAL ECG WHEN COMPARED WITH ECG OF 15-SEP-2018 14:00, SIGNIFICANT CHANGES HAVE OCCURRED Confirmed by SUSY CORCORAN, SHERIE ([id number]) on 10/26/2018 3:00:51 PM Referred By: Confirmed By:SHERIE JAIN MD
[2018-10-26 15:12] LABS: INR 1.03 (0.83-1.09); PROTHROMBIN TIME (PATIENT) 12.1 SEC (9.7-13.0)
--- NOTE | 2018-10-26 16:10 | PDOC ---
Documentation entered by Jamari Olvera SCRIBE, acting as scribe for Krystal Castorena MD. Krystal Castorena MD: This documentation has been prepared by the May bryan Xhesika, SCRIBE, under my direction and personally reviewed by me in its entirety. I confirm that the documentation accurately reflects all work, treatment, procedures, and medical decision making performed by me. Attending Attestation - Resident Resident Name: Charisse Dickson - ED Attending Attestation I have performed the following: I have examined & evaluated the patient, The case was reviewed & discussed with the resident, I agree w/resident's findings & plan, Exceptions are as noted - HPI HPI: 10/26/18 13:16 Mr. Menezes is a 87 year old male, with a significant past medical history of HTN , Anemia, Dementia, recurrent aspiration pneumonia, bipolar disorder, G-tube placement, and multiple admissions for acute cholecystitis (s/p cholecystostomy tube) who presents to the emergency department s/p cholecystostomy tube dislodgement. Per NH notes, patient pulled out G-tube yesterday and is complaining of pain at the g tube site. Historically, pt becomes septic when this tube gets removed. Patient is a poor historian due to his dementia. Allergies: NKDA Surgical history: G tube - Physicial Exam PE: 10/26/18 13:16 GENERAL: Awake, alert, in (+) position HEAD: No signs of trauma EYES: PERRLA, EOMI, sclera anicteric, conjunctiva clear ENT: Auricles normal inspection, hearing grossly normal, nares patent, oropharynx clear without exudates. Moist mucosa NECK: Normal ROM, supple LUNGS: Breath sounds equal, clear to auscultation bilaterally. No wheezes, and no crackles HEART: Regular rate and rhythm, normal S1 and S2, no murmurs, rubs or gallops ABDOMEN:(+) right sided abdominal tenderness to palpation. No involuntary guarding, no rebound. G tube in place, no surrounding erythema String exiting the right abdomen, sin surrounding skin is slightly indurated, this area is tender EXTREMITIES: Normal range of motion, no edema. NEUROLOGICAL: Cranial nerves II through XII grossly intact. SKIN: As above - Medical Decision Making 10/26/18 14:59 Mr Lupica is an 88 yo M presenting to the ER secondary to dislodged cholecystostomy tube Pt has a h/o cholecystitis complicated by E.coli sepsis s/p placement of percutaneous cholecystostomy tube Pt on examination is in the position Reports abdominal pain/tenderness No fever when he initially arrived in the ER While in the ER BP decreased Low grade fever IV fluids started EKG - NSR rate of 66 bpm, axis nml, no st elevation or depression, low voltage 10/26/18 16:02 Laboratory Tests 10/26/18 10/26/18 10/26/18 13:30 13:30 13:30 WBC 8.6 Hgb 11.1 L Hct 32.4 L Plt Count 273 INR 1.03 BUN 43.4 H Creatinine 1.4 H Lipase 144 Urine Blood Urine Nitrite Ur Leukocyte Esterase 10/26/18 13:30 WBC Hgb Hct Plt Count INR BUN Creatinine Lipase Urine Blood Negative Urine Nitrite Negative Ur Leukocyte Esterase Negative 10/26/18 16:[address] BP 96/35 IV fluids re initiated Fentanyl for pain Invanz/Flagyl (this was his treatment during last admission) 10/26/18 16:26 Admit clinical impression; Dislodged cholecystectomy tube, initial presentation
[2018-10-26] MEDS ORDERED: ERTAPENEM SODIUM 1 GM VIAL ONE (16:11)
[2018-10-26] MEDS ORDERED: SODIUM CHLORIDE 0.9% 1000 ML INFUS.BAG IV ONE (16:48)
--- NOTE | 2018-10-26 17:55 | PN ---
Teaching Attending Note Name of Resident: Mone Cooper ATTENDING PHYSICIAN STATEMENT I saw and evaluated the patient. I reviewed the resident's note and discussed the case with the resident. I agree with the resident's findings and plan as documented. SUBJECTIVE: Mr Menezes is an 88 y/o male who comes in from [facility] with percutaneous cholecystotomy tube removal. It is chronic and he has been admitted multiple for this and usually has sepsis as well. According to at bedside tube was accidentally removed yesterday. It is unclear whether it was pulled or fell out. This morning he developed intractable abdominal pain and agitation and was brought in. I am unable to obtain history or review of systems from the patient secondary to agitation and dementia OBJECTIVE: Gen: moderate distress and agitation HEENT: moist mucous membranes Pulm: ctab w/o w/r/r, but difficult to auscultate as patient mutters and screams while listening CV: tachycardic but regular w/o m/r/g Abd: RUQ tenderness, decreased bowel sounds Ext: no c/c/e ASSESSMENT AND PLAN: Problem List - Problems (1) Cholangitis due to bile duct calculus with obstruction Assessment/Plan: -concern for sepsis in patient -also with uncontrolled pain -d/w IR who will replace tube tonight -d/w family, if considering ERCP or surgery this should be done at a tertiary care center considering this would be complicated Code(s): K80.31 - CALCULUS OF BILE DUCT W CHOLANGITIS, UNSP, WITH OBSTRUCTION (2) Cholecystostomy tube dysfunction Assessment/Plan: -tube removal -replace as above Code(s): T85.518A - BREAKDOWN (MECHANICAL) OF GI PROSTH DEV/GRFT, INIT Qualifiers: Encounter type: initial encounter Qualified Code(s): T85.518A - Breakdown ( mechanical) of other gastrointestinal prosthetic devices, implants and grafts, initial encounter (3) Sepsis Assessment/Plan: -appears to have the beginnings of sepsis -past cultures grew ESBL e coli -empiric ertapenem -ID consulted Code(s): A41.9 - SEPSIS, UNSPECIFIED ORGANISM Qualifiers: Sepsis type: sepsis due to unspecified organism Qualified Code(s): A41.9 - Sepsis, unspecified organism (4) JUAN J (acute kidney injury) Assessment/Plan: -hydrate with IVF -recheck in am Code(s): N17.9 - ACUTE KIDNEY FAILURE, UNSPECIFIED (5) Dehydration Assessment/Plan: -IVF Code(s): E86.0 - DEHYDRATION (6) Dementia with behavioral disturbance Assessment/Plan: -restart clonazepam and remeron when stable Code(s): F03.91 - UNSPECIFIED DEMENTIA WITH BEHAVIORAL DISTURBANCE Qualifiers: Dementia type: unspecified type Qualified Code(s): F03.91 - Unspecified dementia with behavioral disturbance (7) Hypertension Assessment/Plan: -having episodes of diastolic hypotension -? secondary to pain meds or sepsis -will hold antihypertensives at this time Code(s): I10 - ESSENTIAL (PRIMARY) HYPERTENSION Qualifiers: Hypertension type: essential hypertension Qualified Code(s): I10 - Essential (primary) hypertension
[2018-10-26] MEDS: SODIUM CHLORIDE 1,000 ML IV SCH (18:32)
--- NOTE | 2018-10-26 18:34 | HP ---
Admitting History and Physical - Admission Chief Complaint: Abdominal pain and dislodged cholecystostomy tube x1 day History of Present Illness: Pt is an 88 yo M with Signif PMHx for HTN, Anemia, Dementia, recurrent aspiration pneumonia, bipolar disorder, G-tube placement, and multiple admissions for acute cholecystitis (s/p cholecystostomy tube dislodgement) presenting from [facility] on the [place] for abdominal pain with poor PO intake and dislodged cholecystectomy tube for one day. Pt has had prior admissions for similar problem in past requring IR guided replacement. Delayed tube replacement in past was complicated with cholangitis. Pt has also had prior tube drainages with ESBL growing in the culture. Per the pt's he only gets breakfast by mouth and the rest of the meals via Gtube, but this am he ate less than a third of the food and per son complained about abdominal pain. identified that the cholecystectomy tube had been dislodged but was unsure of when exactly and how. No reported fevers, but pt has been increasingly more agitated requiring iv fentanyl for pain in the ED. Pt was initially thought to have stable vitals on arrival, but while in ED was noted to have BP 95/135 and after 2L of fluid was at 110/35. IR had initially been contacted informally by ED and had planned to put the cholecystostomy tube back tomorrow. By the time we saw the pt he was still hypotensive despite fluids. We discussed Pt with Dr Garcia over the phone who will follow for possible IR guided tube placement today. ED: UA-negative, WBC-8.6, ALK-160, BUN/cr-43.4/1.4 CTAP-Gall baldder with mod overdistension, small amt of pericholecystic fluid acumm. suggestitve of cholecystitis. Dilated CBD to 1.5cm shahana. Calculi visualized in CBD. intrahepatic dilation. Intrahepatic naomi. air either post procedural or secondary to infection. 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) - Past Surgical History Past Surgical History: Yes: Hernia Repair (inguinal hernia repair), Upper Endoscopy (with ERCP and stone extraction 2015 [place] (too sick for cholecystectomy)) - Smoking History Smoking history: Unknown if ever smoked Have you smoked in the past 12 months: No If you are a former smoker, when did you quit?: 30 YRS AGO - 1-2ppd x 20-30 yrs - Alcohol/Substance Use Hx Alcohol Use: No History of Substance Use: reports: None - Social History ADL: Support Services Home Medications - Allergies Allergies/Adverse Reactions: Allergies Allergy/AdvReac Type Severity Reaction Status Date / Time No Known Allergies Allergy Verified 10/26/18 12:08 - Home Medications Home Medications: Ambulatory Orders Ascorbate Calcium [Vitamin C] 500 mg GT DAILY 03/11/17 Cyanocobalamin (Vitamin B-12) [Vitamin B-12] 1,000 mcg GT DAILY 03/11/17 Metoprolol Tartrate [Lopressor -] 100 mg GT BID tablet 03/26/17 Clonazepam [Klonopin] 0.25 mg GT BID 08/02/17 Mirtazapine [Remeron -] 15 mg GT HS 08/02/17 Acetaminophen [Tylenol] 650 mg PO BID PRN 06/28/18 Propylene Glycol/Peg 400/Pf [Systane 0.3-0.4% Eye Drop] 1 each OU Q12H 06/28/18 Amlodipine Besylate [Norvasc -] 5 mg PO DAILY tablet 07/07/18 Ursodiol [Actigal -] 300 mg PO BID capsule 07/07/18 Calcium Carbonate/Vitamin D3 [Calcium 500-Vit D3 400 Tablet] 1 each PO DAILY Mupirocin Cream [Bactroban 2% Cream -] 1 applic TP DAILY 09/15/18 Ertapenem Sodium [Invanz -] 1 gm IVPB DAILY vial 09/22/18 Metronidazole/Sodium Chloride [Metronidazole 500 mg/100 ml] 500 mg IV Q8H #24 ml 09/22/18 Review of Systems - Review of Systems Constitutional: reports: Loss of Appetite. denies: Chills, Fever Cardiovascular: denies: Chest Pain, Shortness of Breath Respiratory: denies: Cough, Hemoptysis Gastrointestinal: reports: Abdominal Pain Psychiatric: reports: Other (increased agitation) Physical Examination Vital Signs: Vital Signs Temperature 98.1 F 10/26/18 12:28 Pulse Rate 57 L 10/26/18 11:30 Respiratory Rate 18 10/26/18 11:30 Blood Pressure 103/56 L 10/26/18 14:30 O2 Sat by Pulse Oximetry (%) 99 10/26/18 11:30 Constitutional: Yes: Anxious, Moderate Distress Eyes: Yes: Conjunctiva Clear HENT: Yes: Atraumatic Cardiovascular: Yes: Regular Rate and Rhythm, S1, S2 Respiratory: Yes: CTA Bilaterally Gastrointestinal: Yes: Distention (tympanitic), Tenderness (RUQ, Puncture hole with string in place RUQ) ...Rectal Exam: Yes: Deferred Edema: LLE: Trace, RLE: Trace Neurological: Yes: Other (Agitated) Labs: CBC, BMP 10/26/18 13:30 10/26/18 13:30 Imaging - Results Cat Scan: Report Reviewed Assessment/Plan Ambulatory Orders Ascorbate Calcium [Vitamin C] 500 mg GT DAILY 03/11/17 Cyanocobalamin (Vitamin B-12) [Vitamin B-12] 1,000 mcg GT DAILY 03/11/17 Metoprolol Tartrate [Lopressor -] 100 mg GT BID tablet 03/26/17 Clonazepam [Klonopin] 0.25 mg GT BID 08/02/17 Mirtazapine [Remeron -] 15 mg GT HS 08/02/17 Acetaminophen [Tylenol] 650 mg PO BID PRN 06/28/18 Propylene Glycol/Peg 400/Pf [Systane 0.3-0.4% Eye Drop] 1 each OU Q12H 06/28/18 Amlodipine Besylate [Norvasc -] 5 mg PO DAILY tablet 07/07/18 Ursodiol [Actigal -] 300 mg PO BID capsule 07/07/18 Calcium Carbonate/Vitamin D3 [Calcium 500-Vit D3 400 Tablet] 1 each PO DAILY Mupirocin Cream [Bactroban 2% Cream -] 1 applic TP DAILY 09/15/18 Ertapenem Sodium [Invanz -] 1 gm IVPB DAILY vial 09/22/18 Metronidazole/Sodium Chloride [Metronidazole 500 mg/100 ml] 500 mg IV Q8H #24 ml 09/22/18 Current Medications Sodium Chloride (Normal Saline -) 1,000 mls @ 125 mls/hr IV ASDIR HOANG Last Admin: 10/26/18 18:32 Dose: 125 mls/hr Ertapenem 1 gm/ Sodium (Chloride) 50 mls @ 100 mls/hr IVPB ONCE ONE Stop: 10/27/18 18:59 Metronidazole (Flagyl 500mg Premixed Ivpb -) 500 mg in 100 mls @ 100 mls/hr IVPB Q8H-IV HOANG Assessment/Plan Pt is an 88 yo M with Signif PMHx for HTN, Anemia, Dementia, recurrent aspiration pneumonia, bipolar disorder, G-tube placement, and multiple admissions for acute cholecystitis (s/p cholecystostomy tube dislodgement) presenting from [facility] on the [place] for abdominal pain and poor PO intake and dislodged cholecystectomy tube for one day abdominal pain poor PO intake dislodged cholecystectomy tube Hypotension HTN, Anemia, Dementia, recurrent aspiration pneumonia, bipolar disorder, G-tube placement, and multiple admissions for acute cholecystitis (s/p cholecystostomy tube dislodgement) Hx of cholangitis Plan: Cont fluid resuscitation NS @125 Cont ertapenem Cont flagyl IR: Dr Garcia consulted ID- Dr Campbell Hold BP meds Hold psychotropic meds For IR guided tube placement Tele Visit type - Emergency Visit Emergency Visit: Yes ED Registration Date: 10/26/18 Care time: The patient presented to the Emergency Department on the above date and was hospitalized for further evaluation of their emergent condition. - New Patient This patient is new to me today: Yes Date on this admission: 10/26/18 - Critical Care Critical Care patient: No ATTENDING PHYSICIAN STATEMENT I saw and evaluated the patient. I reviewed the resident's note and discussed the case with the resident. I agree with the resident's findings and plan as documented. SUBJECTIVE: OBJECTIVE: ASSESSMENT AND PLAN:
[2018-10-27] MEDS: ACETAMINOPHEN 1000 MG/100 ML VIAL (NON FORMULARY) IVPB PRN (06:39)
[2018-10-27 06:56] LABS: BASO % 0.3 % (0-2.0); EOS % 0.1 % (0-4.5); HEMATOCRIT 31.2 % (35.4-49); HEMOGLOBIN 10.8 GM/dL (11.7-16.9); LYMPH % 6.2 % (8-40); MCH 34.6 pg (25.7-33.7); MCHC 34.5 g/dl (32.0-35.9); MEAN CELL VOLUME 100.3 fl (80-96); MEAN PLT VOLUME 8.9 fl (7.5-11.1); MONO % 2.9 % (3.8-10.2); NEUT % 90.5 % (42.8-82.8); PLATELET COUNT 240 K/MM3 (134-434); RBC 3.12 M/mm3 (4.00-5.60); RDW 13.3 % (11.9-15.9); WHITE BLOOD COUNT 12.6 K/mm3 (4.0-10.0)
[2018-10-27 07:28] LABS: ALBUMIN 2.6 g/dl (3.4-5.0); BILIRUBIN,TOTAL 0.6 mg/dL (0.2-1); CALCIUM 8.2 mg/dL (8.5-10.1); CREATININE 1.4 mg/dL (0.55-1.3); MAGNESIUM 2.7 mg/dL (1.8-2.4); POTASSIUM 4.5 mmol/L (3.5-5.1); TOT PROT 6.6 g/dl (6.4-8.2)
[2018-10-27 07:33] LABS: INR 1.13 (0.83-1.09); PROTHROMBIN TIME (PATIENT) 13.3 SEC (9.7-13.0)
[2018-10-27 07:35] LABS: ACTIVATED PTT 26.9 SECONDS (25.2-36.5)
--- NOTE | 2018-10-27 11:36 | PN ---
Progress Note (short form) - Note Progress Note: ID CONSULT DICTATED S/P DISLODGED PERCUTANEOUS CHOLECYSTOSTOMY FEVER/ LEUKOCYTOSIS R/O RECURRENT BILIARY SEPSIS HX ESBL BACTEREMIA (09/21) OBS PENDING C/S EMPIRIC ERTAPENEM/FLAGYL
--- NOTE | 2018-10-27 12:44 | CONS ---
INFECTIOUS DISEASE CONSULTATION DATE OF CONSULTATION: DATE OF DICTATION: 10/27/2018 An 88-year-old male evaluated for possible recurrent biliary sepsis. History was obtained from the chart as he cannot give a history secondary to dementia. 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 It has been present for several years. It had been forcibly removed on at least 4 or 5 occasions in the past. He was most recently hospitalized in September of this year, between September 15 and September 22, after the tube became dislodged. His course at that time was complicated by biliary sepsis with high-grade fever and positive blood cultures for ESBL. [facility], with reports of abdominal distress after the tube became dislodged. His course was complicated by low-grade fever and elevated white blood cell count. He was admitted to the hospital where he was seen by Interventional Radiology on an emergent basis. The cholecystostomy tube was replaced. He is now awake and alert, complains of right-sided abdominal pain. He has had fever to 100.6 and an elevated white blood cell count. Cultures were obtained. He was empirically treated with ertapenem and Flagyl. PAST MEDICAL HISTORY: Positive for choledocholithiasis; history of biliary tract disease, status post ERCP 2014; dementia; hypertension; bipolar disorder. PAST SURGICAL HISTORY: Status post feeding gastrostomy. ALLERGIES: No known allergies. MEDICATIONS: Include Tylenol, ertapenem, and metronidazole. SOCIAL HISTORY: He resides at a [facility] facility, suffers from dementia, is dependent in activities of daily living. No active alcohol or tobacco use. SYSTEMS REVIEW: Neurologic: Positive for dementia. Cardiac: Negative chest pain or palpitations. Respiratory: Negative cough or sputum production. Gastrointestinal: As per HPI. Genitourinary: Negative for urinary tract infection. LABORATORY DATA: White count 12.6, hematocrit 31.2, platelet count 240. BUN 34, creatinine 1.4. Cultures are pending. PHYSICAL EXAMINATION: General: He is awake and responsive. He is supine in bed, in no acute distress. Vital Signs: T-max 100.6; blood pressure 132/56; pulse 91, regular; respirations 20 per minute. HEENT: Sclerae anicteric. Heart: Sounds S1, S2. Lungs: Grossly clear. Poor inspiratory effort. Abdomen: A cholecystostomy tube is present in the right upper quadrant with rufino blood in the drainage bag. There is right upper quadrant tenderness to palpation. Extremities: Lower extremity edema 1+. No sacral or heel decubiti noted. IMPRESSION: 1. Status post dislodged percutaneous cholecystostomy tube. 2. Fever and leukocytosis, rule out recurrent biliary sepsis. 3. History of extended spectrum beta-lactamase bacteremia. 4. Dementia. Await sepsis workup. Continue empiric antibiotic coverage with ertapenem and Flagyl pending cultures. Case discussed with primary care physician. Will follow. Thank you for the kind referral. RAJAT WISEMAN M.D. [id number]
--- NOTE | 2018-10-27 12:45 | PN ---
Teaching Attending Note Name of Resident: Mone Cooper ATTENDING PHYSICIAN STATEMENT I saw and evaluated the patient. I reviewed the resident's note and discussed the case with the resident. I agree with the resident's findings and plan as documented. SUBJECTIVE: Mr Menezes is much calmer today but still cannot obtain subjective OBJECTIVE: Last Vital Signs Temp Pulse Resp BP Pulse Ox 38.1 C H 91 H 20 132/56 L 98 10/27/18 05:00 10/27/18 05:00 10/27/18 05:00 10/27/18 05:00 10/26/18 22:05 Gen: nad, calm Pulm: ctab w/o w/r/r CV: rrr w/o m/r/g Abd: cholecystostomy tube in place draining serosanguinous fluid, decreased RUQ pain, +bs Ext: no c/c/e CBC, BMP 10/27/18 05:20 10/27/18 05:20 ASSESSMENT AND PLAN: 1) Cholangitis due to bile duct calculus with obstruction Assessment/Plan: -tube placed -case d/w ID -continue ertapenem and follow up cultures Code(s): K80.31 - CALCULUS OF BILE DUCT W CHOLANGITIS, UNSP, WITH OBSTRUCTION (2) Cholecystostomy tube dysfunction Assessment/Plan: -as above Code(s): T85.518A - BREAKDOWN (MECHANICAL) OF GI PROSTH DEV/GRFT, INIT Qualifiers: Encounter type: initial encounter Qualified Code(s): T85.518A - Breakdown ( mechanical) of other gastrointestinal prosthetic devices, implants and grafts, initial encounter (3) Sepsis Assessment/Plan: -now with fever and leukocytosis -continue ertapenem Code(s): A41.9 - SEPSIS, UNSPECIFIED ORGANISM Qualifiers: Sepsis type: sepsis due to unspecified organism Qualified Code(s): A41.9 - Sepsis, unspecified organism (4) JUAN J (acute kidney injury) Assessment/Plan: -stable -continue hydration Code(s): N17.9 - ACUTE KIDNEY FAILURE, UNSPECIFIED (5) Dehydration Assessment/Plan: -IVF Code(s): E86.0 - DEHYDRATION (6) Dementia with behavioral disturbance Assessment/Plan: -restart clonazepam and remeron when stable Code(s): F03.91 - UNSPECIFIED DEMENTIA WITH BEHAVIORAL DISTURBANCE Qualifiers: Dementia type: unspecified type Qualified Code(s): F03.91 - Unspecified dementia with behavioral disturbance (7) Hypertension Assessment/Plan: -monitor -may be able to start antihypertensives soon Code(s): I10 - ESSENTIAL (PRIMARY) HYPERTENSION Qualifiers: Hypertension type: essential hypertension Qualified Code(s): I10 - Essential (primary) hypertension Problem List - Problems (1) Cholangitis due to bile duct calculus with obstruction Code(s): K80.31 - CALCULUS OF BILE DUCT W CHOLANGITIS, UNSP, WITH OBSTRUCTION (2) Cholecystostomy tube dysfunction Code(s): T85.518A - BREAKDOWN (MECHANICAL) OF GI PROSTH DEV/GRFT, INIT Qualifiers: Encounter type: initial encounter Qualified Code(s): T85.518A - Breakdown ( mechanical) of other gastrointestinal prosthetic devices, implants and grafts, initial encounter (3) Sepsis Code(s): A41.9 - SEPSIS, UNSPECIFIED ORGANISM Qualifiers: Sepsis type: sepsis due to unspecified organism Qualified Code(s): A41.9 - Sepsis, unspecified organism (4) JUAN J (acute kidney injury) Code(s): N17.9 - ACUTE KIDNEY FAILURE, UNSPECIFIED (5) Dehydration Code(s): E86.0 - DEHYDRATION (6) Dementia with behavioral disturbance Code(s): F03.91 - UNSPECIFIED DEMENTIA WITH BEHAVIORAL DISTURBANCE Qualifiers: Dementia type: unspecified type Qualified Code(s): F03.91 - Unspecified dementia with behavioral disturbance (7) Hypertension Code(s): I10 - ESSENTIAL (PRIMARY) HYPERTENSION Qualifiers: Hypertension type: essential hypertension Qualified Code(s): I10 - Essential (primary) hypertension
[2018-10-27] MEDS: ERTAPENEM SODIUM 1 GM in SODIUM CHLORIDE 50 ML IVPB SCH (13:21)
[2018-10-27] MEDS: SODIUM CHLORIDE 1,000 ML IV SCH (18:27)
[2018-10-27] MEDS ORDERED: ERTAPENEM SODIUM 1 GM in SODIUM CHLORIDE 50 ML IVPB ONE (18:30)
--- NOTE | 2018-10-27 19:09 | PN ---
Physical Exam: SUBJECTIVE: Patient seen and examined. Resting comfortably. Pt got cholecystostomy tube inserted yesterday. Had fevers overnight OBJECTIVE: Vital Signs Period Temp Pulse Resp BP Sys/Hernandez Pulse Ox Last 24 Hr 97.8 F-100.6 F 68-91 10-21 132-181/55-96 97-100 Vital Signs Temp 99.0 F 10/27/18 14:00 Pulse 83 10/27/18 14:00 Resp 20 10/27/18 10:00 BP 132/65 10/27/18 14:00 Pulse Ox 97 10/27/18 09:00 Intake & Output 10/26/18 10/27/18 10/27/18 23:59 11:59 23:59 Intake Total 2200 750 0 Output Total 250 80 200 Balance 1950 670 -200 Intake: IV 2000 750 Normal Saline - 1,000 ml 2000 @ 1000 mls/hr IV ASDIR STA Rx#:[id number] Normal Saline - 1,000 ml 750 @ 125 mls/hr IV ASDIR HOANG Rx#:[id number] IVPB 200 Oral 0 0 Tube Feeding 0 Output: Drainage 80 200 Right Abdomen 80 200 Urine 250 Straight Cath 250 Other: Voiding Method Diaper Diaper # Unmeasured Voids Straight Cath 3 Void 2 Bowel Movement No Yes: large # Bowel Movements 1 Height 1.68 m GENERAL: The patient is Somnolent but arousable LUNGS: Breath sounds equal, clear to auscultation bilaterally, no wheezes, no crackles HEART: Regular rate and rhythm, S1, S2 ABDOMEN: Gtube inserted LUQ, cholecystostomy tube inserted into RUQ, draining sanguinous fluid EXTREMITIES: 2+ pulses, warm, well-perfused, no edema. NEUROLOGICAL: Somnolent but arousable CBC, BMP 10/27/18 05:20 10/27/18 05:20 Laboratory Results - last 24 hr 10/27/18 10/27/18 10/27/18 05:20 05:20 05:20 WBC 12.6 H RBC 3.12 L Hgb 10.8 L Hct 31.2 L MCV 100.3 H MCH 34.6 H MCHC 34.5 RDW 13.3 Plt Count 240 MPV 8.9 Absolute Neuts (auto) 11.4 H Neutrophils % 90.5 H Lymphocytes % 6.2 L D Monocytes % 2.9 L Eosinophils % 0.1 D Basophils % 0.3 Nucleated RBC % 0 PT with INR 13.30 H INR 1.13 H PTT (Actin FS) 26.9 Sodium 142 Potassium 4.5 Chloride 104 Carbon Dioxide 30 Anion Gap 8 BUN 34.0 H Creatinine 1.4 H Est GFR (CKD-EPI)AfAm 51.26 Est GFR (CKD-EPI)NonAf 44.23 Random Glucose 127 H Calcium 8.2 L Phosphorus 4.0 Magnesium 2.7 H Total Bilirubin 0.6 AST 30 ALT 40 Alkaline Phosphatase 145 H Total Protein 6.6 Albumin 2.6 L Active Medications Generic Name Dose Route Start Last Admin Trade Name Freq PRN Reason Stop Dose Admin Acetaminophen 1,000 mg 10/27/18 06:14 10/27/18 06:39 Ofirmev Injection - IVPB 1,000 mg Q6H PRN Administration FEVER Sodium Chloride 1,000 mls @ 125 mls/hr 10/26/18 18:30 10/27/18 18:27 Normal Saline - IV 125 mls/hr ASDIR HOANG Administration Metronidazole 500 mg in 100 mls @ 100 mls/hr 10/27/18 02:00 10/27/18 18:27 Flagyl 500mg Premixed Ivpb - IVPB 100 mls/hr Q8H-IV HOANG Administration Ertapenem 1 gm/ Sodium 50 mls @ 100 mls/hr 10/27/18 12:00 10/27/18 13:21 Chloride IVPB 100 mls/hr DAILY HOANG Administration Current Medications Acetaminophen (Ofirmev Injection -) 1,000 mg IVPB Q6H PRN PRN Reason: FEVER Last Admin: 10/27/18 06:39 Dose: 1,000 mg Sodium Chloride (Normal Saline -) 1,000 mls @ 125 mls/hr IV ASDIR HOANG Last Admin: 10/27/18 18:27 Dose: 125 mls/hr Metronidazole (Flagyl 500mg Premixed Ivpb -) 500 mg in 100 mls @ 100 mls/hr IVPB Q8H-IV HOANG Last Admin: 10/27/18 18:27 Dose: 100 mls/hr Ertapenem 1 gm/ Sodium (Chloride) 50 mls @ 100 mls/hr IVPB DAILY HOANG Last Admin: 10/27/18 13:21 Dose: 100 mls/hr Ambulatory Orders Ascorbate Calcium [Vitamin C] 500 mg GT DAILY 03/11/17 Cyanocobalamin (Vitamin B-12) [Vitamin B-12] 1,000 mcg GT DAILY 03/11/17 Metoprolol Tartrate [Lopressor -] 100 mg GT BID tablet 03/26/17 Clonazepam [Klonopin] 0.25 mg GT BID 08/02/17 Mirtazapine [Remeron -] 15 mg GT HS 08/02/17 Acetaminophen [Tylenol] 650 mg PO BID PRN 06/28/18 Propylene Glycol/Peg 400/Pf [Systane 0.3-0.4% Eye Drop] 1 each OU Q12H 06/28/18 Amlodipine Besylate [Norvasc -] 5 mg PO DAILY tablet 07/07/18 Ursodiol [Actigal -] 300 mg PO BID capsule 07/07/18 Calcium Carbonate/Vitamin D3 [Calcium 500-Vit D3 400 Tablet] 1 each PO DAILY Mupirocin Cream [Bactroban 2% Cream -] 1 applic TP DAILY 09/15/18 Ertapenem Sodium [Invanz -] 1 gm IVPB DAILY vial 09/22/18 Metronidazole/Sodium Chloride [Metronidazole 500 mg/100 ml] 500 mg IV Q8H #24 ml 09/22/18 ASSESSMENT/PLAN: Pt is an 88 yo M with Signif PMHx for HTN, Anemia, Dementia, recurrent aspiration pneumonia, bipolar disorder, G-tube placement, and multiple admissions for acute cholecystitis (s/p cholecystostomy tube dislodgement) presenting from [facility] on the [place] for abdominal pain and poor PO intake and dislodged cholecystectomy tube for one day #Sepsis secondary to cholecystitis In setting of dislodged cholecystostomy tube Pt now with fevers and elevated white count Cont iv hydration Pt did not get interval cholecystectomy due to being poor surgical candidate, now with multiple re-admissions for dislodgement and sepsis Cont ertapenem/flagyl- ID-Dr Campbell on board #dislodged cholecystectomy tube with cholecystitis and prior cholangitis S/p replacement of cholecystostomy tube 10/26/[address] Garcia-recommends PTC (percutaneous transhepatic cholangiography) tube Per Dr Garcia pt possibly has a tumor and would benefit from a stenting that does not leave any tube outside of the body #abdominal pain Requiring fentanyl in ED Appears to have resolved, pt resting comfortably #poor PO intake Pt feeds both by mouth and through GT Had poor PO intake with possible dehydration prior to admission Cont fluid hydration #Hypotension Fluid responsive Cont aggressive fluid resuscitation #HTN BP meds on hold at this time in setting of hypotension Cont to monitor #Anemia Macrocytic anemia Transfusion treshold <8 B12/Folate Dementia/bipolar disorder/recurrent aspiration pneumonia Aspiration precautions Fall precautions Hold sychotropic medications Pt now consented via son for PTC tube Type and screen PT/PTT Tele Pt with out of hospital DNR/DNI on file Visit type - Emergency Visit Emergency Visit: Yes ED Registration Date: 10/26/18 Care time: The patient presented to the Emergency Department on the above date and was hospitalized for further evaluation of their emergent condition. - New Patient This patient is new to me today: No - Critical Care Critical Care patient: No - Discharge Referral Referred to [facility] Med P.C.: No ATTENDING PHYSICIAN STATEMENT I saw and evaluated the patient. I reviewed the resident's note and discussed the case with the resident. I agree with the resident's findings and plan as documented. SUBJECTIVE: OBJECTIVE: ASSESSMENT AND PLAN:
[2018-10-28 08:09] LABS: BASO % 0.5 % (0-2.0); EOS % 2.7 % (0-4.5); HEMOGLOBIN 9.7 GM/dL (11.7-16.9); LYMPH % 21.6 % (8-40); MCH 34.6 pg (25.7-33.7); MCHC 34.6 g/dl (32.0-35.9); MEAN CELL VOLUME 99.9 fl (80-96); MEAN PLT VOLUME 8.8 fl (7.5-11.1); MONO % 9.7 % (3.8-10.2); NEUT % 65.5 % (42.8-82.8); PLATELET COUNT 206 K/MM3 (134-434); RDW 13.3 % (11.9-15.9); WHITE BLOOD COUNT 6.1 K/mm3 (4.0-10.0)
[2018-10-28 08:15] LABS: INR 1.23 (0.83-1.09); PROTHROMBIN TIME (PATIENT) 14.5 SEC (9.7-13.0)
[2018-10-28 08:16] LABS: ALBUMIN 2.3 g/dl (3.4-5.0); BILIRUBIN,TOTAL 0.4 mg/dL (0.2-1); BLOOD UREA NITROGEN 28.5 mg/dL (7-18); CALCIUM 8.1 mg/dL (8.5-10.1); CREATININE 1.3 mg/dL (0.55-1.3); MAGNESIUM 2.5 mg/dL (1.8-2.4); PHOSPHOROUS 2.8 mg/dL (2.5-4.9); POTASSIUM 3.8 mmol/L (3.5-5.1)
[2018-10-28 08:19] LABS: ACTIVATED PTT 27.5 SECONDS (25.2-36.5)
[2018-10-28] MEDS: ERTAPENEM SODIUM 1 GM in SODIUM CHLORIDE 50 ML IVPB SCH (10:03)
[2018-10-28] MEDS: ACETAMINOPHEN 1000 MG/100 ML VIAL (NON FORMULARY) IVPB PRN (14:33)
--- NOTE | 2018-10-28 15:21 | PN ---
Progress Note, Physician History of Present Illness: S/P BILIARY STENT CONFUSED LOW GRADE TEMP - Current Medication List Current Medications: Active Medications Acetaminophen (Ofirmev Injection -) 1,000 mg IVPB Q6H PRN PRN Reason: FEVER Last Admin: 10/28/18 14:33 Dose: 1,000 mg Sodium Chloride (Normal Saline -) 1,000 mls @ 125 mls/hr IV ASDIR HOANG Last Admin: 10/27/18 18:27 Dose: 125 mls/hr Metronidazole (Flagyl 500mg Premixed Ivpb -) 500 mg in 100 mls @ 100 mls/hr IVPB Q8H-IV HOANG Last Admin: 10/28/18 10:03 Dose: 100 mls/hr Ertapenem 1 gm/ Sodium (Chloride) 50 mls @ 100 mls/hr IVPB DAILY [facility] Last Admin: 10/28/18 10:03 Dose: 100 mls/hr - Objective Vital Signs: Vital Signs Temperature 99.7 F H 10/28/18 09:00 Pulse Rate 100 H 10/28/18 12:40 Respiratory Rate 16 10/28/18 12:40 Blood Pressure 150/88 10/28/18 12:40 O2 Sat by Pulse Oximetry (%) 99 10/28/18 12:40 Eyes: No: Sclera Icterus Cardiovascular: Yes: Regular Rate and Rhythm, S1, S2 Respiratory: Yes: Other (FEW CREPITATIONS, BASES) Gastrointestinal: Yes: Normal Bowel Sounds, Soft, Other (MILD DIFFUSE TENDERNESS + BILIARY DRAIN CLAMPED) Edema: No Labs: CBC, BMP 10/28/18 05:05 10/28/18 05:05 INR, PTT INR 1.23 (0.83-1.09) H 10/28/18 05:05 Assessment/Plan S/P BILIARY STENT FEVER R/O BILIARY SEPSIS HX ESBL AWAIT C/S CONTINUE ERTAPENEM/ FLAGYL
--- NOTE | 2018-10-28 17:00 | PN ---
Teaching Attending Note Name of Resident: Mone Jean Cherellepablo ATTENDING PHYSICIAN STATEMENT I saw and evaluated the patient. I reviewed the resident's note and discussed the case with the resident. I agree with the resident's findings and plan as documented. SUBJECTIVE: Unable to obtain OBJECTIVE: Last Vital Signs Temp Pulse Resp BP Pulse Ox 38.0 C H 128 H 22 H 127/57 L 99 10/28/18 14:00 10/28/18 14:00 10/28/18 14:00 10/28/18 14:00 10/28/18 12:40 Gen: nad Pulm: ctab w/o w/r/r CV: rrr w/o m/r/g Abd: +bs, s/nt/nd Ext: no c/c/e CBC, BMP 10/28/18 05:05 10/28/18 05:05 ASSESSMENT AND PLAN: 1) Cholangitis due to bile duct calculus with obstruction Assessment/Plan: -case d/w IR -s/p PTC -low grade temperature after procedure -will monitor -continue empiric antibiotics Code(s): K80.31 - CALCULUS OF BILE DUCT W CHOLANGITIS, UNSP, WITH OBSTRUCTION (2) Cholecystostomy tube dysfunction Assessment/Plan: -PTC in place Code(s): T85.518A - BREAKDOWN (MECHANICAL) OF GI PROSTH DEV/GRFT, INIT Qualifiers: Encounter type: initial encounter Qualified Code(s): T85.518A - Breakdown ( mechanical) of other gastrointestinal prosthetic devices, implants and grafts, initial encounter (3) Sepsis Assessment/Plan: -continue ertapenem and flagyl Code(s): A41.9 - SEPSIS, UNSPECIFIED ORGANISM Qualifiers: Sepsis type: sepsis due to unspecified organism Qualified Code(s): A41.9 - Sepsis, unspecified organism (4) JUAN J (acute kidney injury) Assessment/Plan: -stable -continue hydration Code(s): N17.9 - ACUTE KIDNEY FAILURE, UNSPECIFIED (5) Dehydration Assessment/Plan: -IVF Code(s): E86.0 - DEHYDRATION (6) Dementia with behavioral disturbance Assessment/Plan: -restart clonazepam and remeron when stable Code(s): F03.91 - UNSPECIFIED DEMENTIA WITH BEHAVIORAL DISTURBANCE Qualifiers: Dementia type: unspecified type Qualified Code(s): F03.91 - Unspecified dementia with behavioral disturbance (7) Hypertension Assessment/Plan: -monitor -may be able to start antihypertensives soon Code(s): I10 - ESSENTIAL (PRIMARY) HYPERTENSION Qualifiers: Hypertension type: essential hypertension Qualified Code(s): I10 - Essential (primary) hypertension Problem List - Problems (1) Cholangitis due to bile duct calculus with obstruction Code(s): K80.31 - CALCULUS OF BILE DUCT W CHOLANGITIS, UNSP, WITH OBSTRUCTION (2) Cholecystostomy tube dysfunction Code(s): T85.518A - BREAKDOWN (MECHANICAL) OF GI PROSTH DEV/GRFT, INIT Qualifiers: Encounter type: initial encounter Qualified Code(s): T85.518A - Breakdown ( mechanical) of other gastrointestinal prosthetic devices, implants and grafts, initial encounter (3) Sepsis Code(s): A41.9 - SEPSIS, UNSPECIFIED ORGANISM Qualifiers: Sepsis type: sepsis due to unspecified organism Qualified Code(s): A41.9 - Sepsis, unspecified organism (4) JUAN J (acute kidney injury) Code(s): N17.9 - ACUTE KIDNEY FAILURE, UNSPECIFIED (5) Dehydration Code(s): E86.0 - DEHYDRATION (6) Dementia with behavioral disturbance Code(s): F03.91 - UNSPECIFIED DEMENTIA WITH BEHAVIORAL DISTURBANCE Qualifiers: Dementia type: unspecified type Qualified Code(s): F03.91 - Unspecified dementia with behavioral disturbance (7) Hypertension Code(s): I10 - ESSENTIAL (PRIMARY) HYPERTENSION Qualifiers: Hypertension type: essential hypertension Qualified Code(s): I10 - Essential (primary) hypertension
--- NOTE | 2018-10-28 19:12 | PN ---
Physical Exam: SUBJECTIVE: Patient seen and examined. Resting comfortably, in no obvious distress OBJECTIVE: Vital Signs Period Temp Pulse Resp BP Sys/Henrandez Pulse Ox Last 24 Hr 98.2 F-100.4 F 80-128 16-22 127-168/57-88 95-100 Vital Signs Temp 99.4 F 10/29/18 02:00 Pulse 96 H 10/29/18 02:00 Resp 20 10/29/18 02:00 BP 139/58 L 10/29/18 02:00 Pulse Ox 99 10/28/18 12:40 Intake & Output 10/28/18 10/28/18 10/29/18 11:59 23:59 11:59 Intake Total 1375 0 Output Total 100 Balance 1275 0 Intake: IV 1375 Normal Saline - 1,000 ml 1375 @ 125 mls/hr IV ASDIR HOANG Rx#:[id number] Oral 0 Output: Drainage 100 Right Abdomen 100 Other: Voiding Method Diaper Diaper # Unmeasured Voids Void 3 2 Bowel Movement Yes: large # Bowel Movements 1 GENERAL: The patient is drowsy but arousable, resting comfortably LUNGS: Breath sounds equal, clear to auscultation bilaterally, no wheezes HEART: Regular rate and rhythm, S1, S2 without murmur ABDOMEN: Soft, tender RUQ, mild distension, hypoactive bowel sounds, Replaced cholecystostomy tube RUQ, draining greenish/yellowish fluid, GT in place LUQ, clean dry surrounding skin EXTREMITIES: 2+ pulses, warm, well-perfused, no edema. NEUROLOGICAL: Screaming on palpation of RUQ, able to move all extremities, no facial droop CBC, BMP 10/28/18 05:05 10/28/18 05:05 Laboratory Results - last 24 hr 10/28/18 10/28/18 10/28/18 05:05 05:05 05:05 WBC 6.1 RBC 2.80 L Hgb 9.7 L Hct 28.0 L MCV 99.9 H MCH 34.6 H MCHC 34.6 RDW 13.3 Plt Count 206 MPV 8.8 Absolute Neuts (auto) 4.0 Neutrophils % 65.5 D Lymphocytes % 21.6 D Monocytes % 9.7 D Eosinophils % 2.7 D Basophils % 0.5 Nucleated RBC % 0 PT with INR 14.50 H INR 1.23 H PTT (Actin FS) 27.5 Sodium 143 Potassium 3.8 Chloride 108 H Carbon Dioxide 29 Anion Gap 6 L BUN 28.5 H Creatinine 1.3 Est GFR (CKD-EPI)AfAm 56.07 Est GFR (CKD-EPI)NonAf 48.38 Random Glucose 94 Calcium 8.1 L Phosphorus 2.8 Magnesium 2.5 H Total Bilirubin 0.4 AST 19 ALT 30 Alkaline Phosphatase 110 Total Protein 6.0 L Albumin 2.3 L Vitamin B12 955 Active Medications Generic Name Dose Route Start Last Admin Trade Name Freq PRN Reason Stop Dose Admin Acetaminophen 1,000 mg 10/27/18 06:14 10/28/18 14:33 Ofirmev Injection - IVPB 1,000 mg Q6H PRN Administration FEVER Sodium Chloride 1,000 mls @ 125 mls/hr 10/26/18 18:30 10/27/18 18:27 Normal Saline - IV 125 mls/hr ASDIR HOANG Administration Metronidazole 500 mg in 100 mls @ 100 mls/hr 10/27/18 02:00 10/28/18 18:06 Flagyl 500mg Premixed Ivpb - IVPB 100 mls/hr Q8H-IV HOANG Administration Ertapenem 1 gm/ Sodium 50 mls @ 100 mls/hr 10/27/18 12:00 10/28/18 10:03 Chloride IVPB 100 mls/hr DAILY HOANG Administration Microbiology 10/26/18 13:15 Blood - Peripheral Venous Blood Culture - Preliminary NO GROWTH OBTAINED AFTER 48 HOURS, INCUBATION TO CONTINUE FOR 3 DAYS. 10/26/18 13:30 Blood - Peripheral Venous Blood Culture - Preliminary NO GROWTH OBTAINED AFTER 48 HOURS, INCUBATION TO CONTINUE FOR 3 DAYS. 10/26/18 13:30 Urine - Urine Clean Catch Urine Culture - Final NO GROWTH OBTAINED Current Medications Acetaminophen (Ofirmev Injection -) 1,000 mg IVPB Q6H PRN PRN Reason: FEVER Last Admin: 10/28/18 14:33 Dose: 1,000 mg Sodium Chloride (Normal Saline -) 1,000 mls @ 125 mls/hr IV ASDIR HOANG Last Admin: 10/28/18 20:34 Dose: 125 mls/hr Metronidazole (Flagyl 500mg Premixed Ivpb -) 500 mg in 100 mls @ 100 mls/hr IVPB Q8H-IV HOANG Last Admin: 07/26/19 18:06 Dose: 100 mls/hr Ertapenem 1 gm/ Sodium (Chloride) 50 mls @ 100 mls/hr IVPB DAILY HOANG Last Admin: 10/28/18 10:03 Dose: 100 mls/hr Ambulatory Orders Ascorbate Calcium [Vitamin C] 500 mg GT DAILY 03/11/17 Cyanocobalamin (Vitamin B-12) [Vitamin B-12] 1,000 mcg GT DAILY 03/11/17 Metoprolol Tartrate [Lopressor -] 100 mg GT BID tablet 03/26/17 Clonazepam [Klonopin] 0.25 mg GT BID 08/02/17 Mirtazapine [Remeron -] 15 mg GT HS 08/02/17 Acetaminophen [Tylenol] 650 mg PO BID PRN 06/28/18 Propylene Glycol/Peg 400/Pf [Systane 0.3-0.4% Eye Drop] 1 each OU Q12H 06/28/18 Amlodipine Besylate [Norvasc -] 5 mg PO DAILY tablet 07/07/18 Ursodiol [Actigal -] 300 mg PO BID capsule 07/07/18 Calcium Carbonate/Vitamin D3 [Calcium 500-Vit D3 400 Tablet] 1 each PO DAILY Mupirocin Cream [Bactroban 2% Cream -] 1 applic TP DAILY 09/15/18 Ertapenem Sodium [Invanz -] 1 gm IVPB DAILY vial 09/22/18 Metronidazole/Sodium Chloride [Metronidazole 500 mg/100 ml] 500 mg IV Q8H #24 ml 09/22/18 ASSESSMENT/PLAN: Pt is an 88 yo M with Signif PMHx for HTN, Anemia, Dementia, recurrent aspiration pneumonia, bipolar disorder, G-tube placement, and multiple admissions for acute cholecystitis (s/p cholecystostomy tube dislodgement) presenting from [facility] for abdominal pain and poor PO intake and dislodged cholecystectomy tube for one day #Sepsis secondary to cholecystitis s/p cholecystostomy tube replacement 10/26/18 For PTC tube placement today, Pt is NPO In setting of dislodged cholecystostomy tube Pt had fevers and elevated white count Cont iv hydration Pt did not get interval cholecystectomy due to being poor surgical candidate, now with multiple re-admissions for dislodgement and sepsis Cont ertapenem/flagyl- ID-Dr Campbell on board #dislodged cholecystectomy tube with cholecystitis and prior cholangitis S/p replacement of cholecystostomy tube 10/26/[address] Garcia-IR placed PTC (percutaneous transhepatic cholangiography) tube placement today Per Dr Garcia pt possibly has a tumor and would benefit from a stenting that does not leave any tube outside of the body #abdominal pain Requiring fentanyl in ED Appears to have resolved, pt resting comfortably #poor PO intake Pt feeds both by mouth and through GT Had poor PO intake with possible dehydration prior to admission Cont fluid hydration #Hypotension Fluid responsive Cont aggressive fluid resuscitation #HTN BP meds on hold at this time in setting of hypotension Cont to monitor #Anemia Macrocytic anemia Transfusion treshold <8 B12/Folate Dementia/bipolar disorder/recurrent aspiration pneumonia Aspiration precautions Fall precautions Hold sychotropic medications Pt now consented via son for PTC tube Type and screen PT/PTT Tele Visit type - Emergency Visit Emergency Visit: Yes ED Registration Date: 10/26/18 Care time: The patient presented to the Emergency Department on the above date and was hospitalized for further evaluation of their emergent condition. - New Patient This patient is new to me today: No - Critical Care Critical Care patient: No - Discharge Referral Referred to [facility] Med [facility] No ATTENDING PHYSICIAN STATEMENT I saw and evaluated the patient. I reviewed the resident's note and discussed the case with the resident. I agree with the resident's findings and plan as documented. SUBJECTIVE: OBJECTIVE: ASSESSMENT AND PLAN:
[2018-10-28] MEDS: SODIUM CHLORIDE 1,000 ML IV SCH (20:34)
--- NOTE | 2018-10-29 06:20 | HOSP ---
Subjective - Review of Symptoms Events since last encounter: 88 yo M with Signif PMHx for HTN, Anemia, Dementia, recurrent aspiration pneumonia, bipolar disorder, G-tube placement, and multiple admissions for acute cholecystitis (s/p cholecystostomy tube dislodgement) at [facility] the [place] for abdominal pain and poor PO intake and dislodged cholecystectomy tube. On 10/28 Rn called patient noted with episode of vomit x1 (coffee brown) at 23: 30 INSTRUCTED nursing to monitor patient for further episodes, slept well at night then at 5:50 noted with another episode of (coffee brown emesis and dark black stool), ordered STAT CBC, stool for occult blood and PPI drip, GI consult. General: No: Chills, Night Sweats, Fatigue, Malaise, Appetite, Other HEENT: No: Head Aches, Visual Changes, Eye Pain, Ear Pain, Dysphasia, Sinus Congestion, Post Nasal Drip, Sore Throat, Other Pulmonary: No: Dyspnea, Cough, Pleuritic Chest Pain, Other Cardiovascular: No: Chest Pain, Palpitations, Orthopnea, Paroxysmal Noc. Dyspnea , Edema, Light Headedness, Other Gastrointestinal: Yes: Vomiting Genitourinary: No: Dysuria, NOSYM, Frequency, Incontinence, Hematuria, Retention , Other Musculoskeletal: No: No Symptoms, Back Pain, Crepitus, Decreased ROM, Extremity Pain, Joint Pain, Joint Swelling, Muscle Pain, Muscle Cramps, Muscle Weakness, Other Physical Examination Vital Signs: Vital Signs Temperature 99.4 F 10/29/18 02:00 Pulse Rate 96 H 10/29/18 02:00 Respiratory Rate 20 10/29/18 02:00 Blood Pressure 139/58 L 10/29/18 02:00 O2 Sat by Pulse Oximetry (%) 97 10/28/18 21:00 Constitutional: Yes: Calm Eyes: Yes: Conjunctiva Clear HENT: Yes: Atraumatic, Normocephalic Neck: Yes: Supple, Trachea Midline Cardiovascular: Yes: Regular Rate and Rhythm Respiratory: Yes: Regular, CTA Bilaterally Gastrointestinal: Yes: Normal Bowel Sounds, Distention Labs: CBC, BMP 10/28/18 05:05 10/28/18 05:05 Hospitalist Encounter Assessment: R/o GI bleed - occult blood series - STAT CBC - start PPI drip - follow up GI - remain NPO
[2018-10-29] MEDS: PANTOPRAZOLE SODIUM 80 MG in SODIUM CHLORIDE 100 ML IVPB SCH ×2 (07:00→15:34)
[2018-10-29 07:07] LABS: BASO % 0.1 % (0-2.0); EOS % 0.2 % (0-4.5); HEMATOCRIT 23.3 % (35.4-49); LYMPH % 9.3 % (8-40); MCH 34.4 pg (25.7-33.7); MCHC 34.3 g/dl (32.0-35.9); MEAN CELL VOLUME 100.4 fl (80-96); MEAN PLT VOLUME 8.5 fl (7.5-11.1); MONO % 6.3 % (3.8-10.2); NEUT % 84.1 % (42.8-82.8); PLATELET COUNT 212 K/MM3 (134-434); RBC 2.32 M/mm3 (4.00-5.60); RDW 13.5 % (11.9-15.9); WHITE BLOOD COUNT 11.2 K/mm3 (4.0-10.0)
[2018-10-29 07:33] LABS: ALBUMIN 2.2 g/dl (3.4-5.0); BILIRUBIN,TOTAL 0.5 mg/dL (0.2-1); BLOOD UREA NITROGEN 33.5 mg/dL (7-18); CALCIUM 7.6 mg/dL (8.5-10.1); CREATININE 1.5 mg/dL (0.55-1.3); MAGNESIUM 2.1 mg/dL (1.8-2.4); PHOSPHOROUS 3.1 mg/dL (2.5-4.9); POTASSIUM 4.1 mmol/L (3.5-5.1); TOT PROT 5.8 g/dl (6.4-8.2)
[2018-10-29] MEDS: ERTAPENEM SODIUM 1 GM in SODIUM CHLORIDE 50 ML IVPB SCH (10:14)
--- NOTE | 2018-10-29 11:57 | CON.GI ---
Consult Consult Specialty:: GI Referred by:: Hospitalist service Reason for Consultation:: Drop in Hgb; dislodged cholecystostomy tube - History of Present Illness Chief Complaint: 88 y.o. M, demented, on G tube feedings, cholecystomy tube dislodged, was replaced yesterday. Reported coffee grounds vomitus last evening. History of Present Illness: 88 y.o. M with known choledocholithiasis, repeated admissions for cholecystostomy tube placement. Tube was apparently dislodged at [place], was replaced yesterday. In addition to tube replacement the ampullary sphincter was dilated and a 7 Fr pigtail stent placed into the duodenum. Images taken after stent placement show drainage into duodenum. Despite that, today's LFTs are elevated along with the WBC; Hgb is down somewhat. Pt is not jaundiced: CBC,CMP WBC 11.2 K/mm3 (4.0-10.0) H 10/29/18 05:15 RBC 2.32 M/mm3 (4.00-5.60) L 10/29/18 05:15 Hgb 8.0 GM/dL (11.7-16.9) L 10/29/18 05:15 Hct 23.3 % (35.4-49) L D 10/29/18 05:15 MCV 100.4 fl (80-96) H 10/29/18 05:15 MCH 34.4 pg (25.7-33.7) H 10/29/18 05:15 MCHC 34.3 g/dl (32.0-35.9) 10/29/18 05:15 RDW 13.5 % (11.9-15.9) 10/29/18 05:15 Plt Count 212 K/MM3 (134-434) 10/29/18 05:15 MPV 8.5 fl (7.5-11.1) 10/29/18 05:15 Absolute Neuts (auto) 9.4 K/mm3 (1.5-8.0) H 10/29/18 05:15 Neutrophils % 84.1 % (42.8-82.8) H D 10/29/18 05:15 Lymphocytes % 9.3 % (8-40) D 10/29/18 05:15 Monocytes % 6.3 % (3.8-10.2) 10/29/18 05:15 Eosinophils % 0.2 % (0-4.5) D 10/29/18 05:15 Basophils % 0.1 % (0-2.0) 10/29/18 05:15 Nucleated RBC % 0 % (0-0) 10/29/18 05:15 Sodium 148 mmol/L (136-145) H 10/29/18 05:15 Potassium 4.1 mmol/L (3.5-5.1) 10/29/18 05:15 Chloride 114 mmol/L (98-107) H 10/29/18 05:15 Carbon Dioxide 25 mmol/L (21-32) 10/29/18 05:15 Anion Gap 9 MMOL/L (8-16) 10/29/18 05:15 BUN 33.5 mg/dL (7-18) H 10/29/18 05:15 Creatinine 1.5 mg/dL (0.55-1.3) H 10/29/18 05:15 Est GFR (CKD-EPI)AfAm 47.16 10/29/18 05:15 Est GFR (CKD-EPI)NonAf 40.69 10/29/18 05:15 Random Glucose 129 mg/dL (74-106) H 10/29/18 05:15 Lactic Acid 1.5 mmol/L (0.4-2.0) 10/26/18 13:30 Calcium 7.6 mg/dL (8.5-10.1) L 10/29/18 05:15 Phosphorus 3.1 mg/dL (2.5-4.9) 10/29/18 05:15 Magnesium 2.1 mg/dL (1.8-2.4) 10/29/18 05:15 Total Bilirubin 0.5 mg/dL (0.2-1) 10/29/18 05:15 AST 91 U/L (15-37) H 10/29/18 05:15 ALT 64 U/L (13-61) H 10/29/18 05:15 Alkaline Phosphatase 240 U/L (45-117) H 10/29/18 05:15 Total Protein 5.8 g/dl (6.4-8.2) L 10/29/18 05:15 Albumin 2.2 g/dl (3.4-5.0) L 07/27/19 05:15 Lipase 144 U/L (73-393) 10/26/18 13:30 Vitamin B12 955 pg/ml (193-986) 10/28/18 05:05 - History Source History Provided By: Medical Record Limitations to Obtaining History: Dementia - Past Medical History 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) Additional Medical History: macular degeneration (legally blind) - Past Surgical History Past Surgical History: Yes: Hernia Repair (inguinal hernia repair), Upper Endoscopy (with ERCP and stone extraction 2015 [place] (too sick for cholecystectomy)) - Alcohol/Substance Use Hx Alcohol Use: No History of Substance Use: reports: None - Smoking History Smoking history: Unknown if ever smoked Have you smoked in the past 12 months: No If you are a former smoker, when did you quit?: 30 YRS AGO - 1-2ppd x 20-30 yrs - Social History Usual Living Arrangement: [facility] ADL: Support Services Home Medications - Allergies Allergies/Adverse Reactions: Allergies Allergy/AdvReac Type Severity Reaction Status Date / Time No Known Allergies Allergy Verified 10/26/18 12:08 - Home Medications Home Medications: Ambulatory Orders Ascorbate Calcium [Vitamin C] 500 mg GT DAILY 03/11/17 Cyanocobalamin (Vitamin B-12) [Vitamin B-12] 1,000 mcg GT DAILY 03/11/17 Metoprolol Tartrate [Lopressor -] 100 mg GT BID tablet 03/26/17 Clonazepam [Klonopin] 0.25 mg GT BID 08/02/17 Mirtazapine [Remeron -] 15 mg GT HS 08/02/17 Acetaminophen [Tylenol] 650 mg PO BID PRN 06/28/18 Propylene Glycol/Peg 400/Pf [Systane 0.3-0.4% Eye Drop] 1 each OU Q12H 06/28/18 Amlodipine Besylate [Norvasc -] 5 mg PO DAILY tablet 07/07/18 Ursodiol [Actigal -] 300 mg PO BID capsule 07/07/18 Calcium Carbonate/Vitamin D3 [Calcium 500-Vit D3 400 Tablet] 1 each PO DAILY Mupirocin Cream [Bactroban 2% Cream -] 1 applic TP DAILY 09/15/18 Ertapenem Sodium [Invanz -] 1 gm IVPB DAILY vial 09/22/18 Metronidazole/Sodium Chloride [Metronidazole 500 mg/100 ml] 500 mg IV Q8H #24 ml 09/22/18 Physical Exam-GI Vital Signs: Vital Signs Temperature 99.2 F 10/29/18 09:00 Pulse Rate 98 H 10/29/18 09:00 Respiratory Rate 18 10/29/18 09:00 Blood Pressure 122/64 10/29/18 09:00 O2 Sat by Pulse Oximetry (%) 97 10/28/18 21:00 ...Auscultate: Yes: Normoactive Bowel Sounds ...Rectal Exam: Yes: WNL (Yellow-brown stool on digital rectal exam.) Labs: CBC, BMP 10/29/18 05:15 10/29/18 05:15 INR, PTT INR 1.23 (0.83-1.09) H 10/28/18 05:05 Imaging - Results Other: Report Reviewed, Image Reviewed (Reviewed films from cholecystomy tube placement and biliary stent placement.) Problem List - Problems (1) Hematemesis Code(s): K92.0 - HEMATEMESIS (2) Cholecystostomy tube dysfunction Code(s): T85.518A - BREAKDOWN (MECHANICAL) OF GI PROSTH DEV/GRFT, INIT Qualifiers: Encounter type: initial encounter Qualified Code(s): T85.518A - Breakdown ( mechanical) of other gastrointestinal prosthetic devices, implants and grafts, initial encounter Assessment/Plan 1) Choledocholithiasis with stent placement. It is disturbing that the alk phos, AST and ALT have all risen today. Will repeat labs tomorrow; if still rising tomorrow then the stent is not functioning properly. 2) Hematemesis. I suspect his bleeding was related to ampullary dilation and stent placement. Currently his abdomen is not tender although somewhat distended. On digital rectal exam now I find only yellow-brown semiliquid stool. Would aim to avoid invasive procedures as this has been the family's wish. Agree with IV PPI; monitor Hgb and resume tube feedings tomorrow if stable.
[2018-10-29] MEDS ORDERED: PT OWN MED DRAWER 7, Y5N ONE (15:32)
--- NOTE | 2018-10-29 16:46 | PN ---
Progress Note, Physician Chief Complaint: Unable to obtain - Current Medication List Current Medications: Active Medications Acetaminophen (Ofirmev Injection -) 1,000 mg IVPB Q6H PRN PRN Reason: FEVER Last Admin: 10/28/18 14:33 Dose: 1,000 mg Sodium Chloride (Normal Saline -) 1,000 mls @ 125 mls/hr IV ASDIR HOANG Last Admin: 10/28/18 20:34 Dose: 125 mls/hr Metronidazole (Flagyl 500mg Premixed Ivpb -) 500 mg in 100 mls @ 100 mls/hr IVPB Q8H-IV HOANG Last Admin: 10/29/18 10:13 Dose: 100 mls/hr Ertapenem 1 gm/ Sodium (Chloride) 50 mls @ 100 mls/hr IVPB DAILY [facility] Last Admin: 10/29/18 10:14 Dose: 100 mls/hr Pantoprazole Sodium 80 mg/ (Sodium Chloride) 100 mls @ 10 mls/hr IVPB Q10H HOANG Last Admin: 10/29/18 15:34 Dose: 10 mls/hr - Objective Vital Signs: Vital Signs Temperature 37.3 C 10/29/18 09:00 Pulse Rate 98 H 10/29/18 09:00 Respiratory Rate 18 10/29/18 09:00 Blood Pressure 122/64 10/29/18 09:00 O2 Sat by Pulse Oximetry (%) 98 10/29/18 09:00 Constitutional: Yes: Well Nourished, No Distress, Calm Cardiovascular: Yes: Regular Rate and Rhythm. No: Gallop, Murmur, Rub Respiratory: Yes: Regular, CTA Bilaterally. No: Rales, Rhonchi, Wheezes Gastrointestinal: Yes: Normal Bowel Sounds, Soft. No: Distention, Tenderness Extremities: Yes: WNL Edema: No Labs: CBC, BMP 10/29/18 05:15 10/29/18 05:15 INR, PTT INR 1.23 (0.83-1.09) H 10/28/18 05:05 Problem List - Problems (1) Cholangitis due to bile duct calculus with obstruction Code(s): K80.31 - CALCULUS OF BILE DUCT W CHOLANGITIS, UNSP, WITH OBSTRUCTION (2) Cholecystostomy tube dysfunction Code(s): T85.518A - BREAKDOWN (MECHANICAL) OF GI PROSTH DEV/GRFT, INIT Qualifiers: Encounter type: initial encounter Qualified Code(s): T85.518A - Breakdown ( mechanical) of other gastrointestinal prosthetic devices, implants and grafts, initial encounter (3) Sepsis Code(s): A41.9 - SEPSIS, UNSPECIFIED ORGANISM Qualifiers: Sepsis type: sepsis due to unspecified organism Qualified Code(s): A41.9 - Sepsis, unspecified organism (4) JUAN J (acute kidney injury) Code(s): N17.9 - ACUTE KIDNEY FAILURE, UNSPECIFIED (5) Dehydration Code(s): E86.0 - DEHYDRATION (6) Dementia with behavioral disturbance Code(s): F03.91 - UNSPECIFIED DEMENTIA WITH BEHAVIORAL DISTURBANCE Qualifiers: Dementia type: unspecified type Qualified Code(s): F03.91 - Unspecified dementia with behavioral disturbance (7) Hypertension Code(s): I10 - ESSENTIAL (PRIMARY) HYPERTENSION Qualifiers: Hypertension type: essential hypertension Qualified Code(s): I10 - Essential (primary) hypertension Assessment/Plan 1) Cholangitis due to bile duct calculus with obstruction Assessment/Plan: -case d/w IR -s/p PTC -now with rising LFTs -stent may be malfunctioning -recheck in am Code(s): K80.31 - CALCULUS OF BILE DUCT W CHOLANGITIS, UNSP, WITH OBSTRUCTION (2) Cholecystostomy tube dysfunction Assessment/Plan: -as above Code(s): T85.518A - BREAKDOWN (MECHANICAL) OF GI PROSTH DEV/GRFT, INIT Qualifiers: Encounter type: initial encounter Qualified Code(s): T85.518A - Breakdown ( mechanical) of other gastrointestinal prosthetic devices, implants and grafts, initial encounter (3) Sepsis Assessment/Plan: -continue ertapenem and flagyl Code(s): A41.9 - SEPSIS, UNSPECIFIED ORGANISM Qualifiers: Sepsis type: sepsis due to unspecified organism Qualified Code(s): A41.9 - Sepsis, unspecified organism (4) JUAN J (acute kidney injury) Assessment/Plan: -stable -continue hydration Code(s): N17.9 - ACUTE KIDNEY FAILURE, UNSPECIFIED (5) Dehydration Assessment/Plan: -IVF Code(s): E86.0 - DEHYDRATION (6) Dementia with behavioral disturbance Assessment/Plan: -restart clonazepam and remeron when stable Code(s): F03.91 - UNSPECIFIED DEMENTIA WITH BEHAVIORAL DISTURBANCE Qualifiers: Dementia type: unspecified type Qualified Code(s): F03.91 - Unspecified dementia with behavioral disturbance (7) Hypertension Assessment/Plan: -monitor -may be able to start antihypertensives soon Code(s): I10 - ESSENTIAL (PRIMARY) HYPERTENSION Qualifiers: Hypertension type: essential hypertension Qualified Code(s): I10 - Essential (primary) hypertension (8) GI Bleed -appreciate GI assistance -most likely secondary to procedure -on protonix gtt -will check cbc this evening
[2018-10-29 20:13] LABS: HEMATOCRIT 20.7 % (35.4-49); MCH 34.6 pg (25.7-33.7); MCHC 34.1 g/dl (32.0-35.9); MEAN CELL VOLUME 101.6 fl (80-96); MEAN PLT VOLUME 8.5 fl (7.5-11.1); PLATELET COUNT 187 K/MM3 (134-434); RBC 2.03 M/mm3 (4.00-5.60); RDW 13.7 % (11.9-15.9); WHITE BLOOD COUNT 8.5 K/mm3 (4.0-10.0)
[2018-10-30] MEDS ORDERED: PT OWN MED DRAWER 7, Y5N ONE ×3 (00:16→22:22)
[2018-10-30 00:40] LABS: ALBUMIN 2.2 g/dl (3.4-5.0); BILIRUBIN,TOTAL 0.4 mg/dL (0.2-1); BLOOD UREA NITROGEN 29.9 mg/dL (7-18); CALCIUM 7.5 mg/dL (8.5-10.1); CREATININE 1.3 mg/dL (0.55-1.3); POTASSIUM 3.7 mmol/L (3.5-5.1); TOT PROT 5.5 g/dl (6.4-8.2)
[2018-10-30] MEDS ORDERED: IBUPROFEN 600 MG TABLET (FP) PO ONE (02:15)
[2018-10-30] MEDS ORDERED: LACTATED RINGERS SOLUTION 1,000 ML/1,000 ML INFUS.BAG IV SCH (02:15)
[2018-10-30] MEDS: PANTOPRAZOLE SODIUM 80 MG in SODIUM CHLORIDE 100 ML IVPB SCH ×4 (03:00→22:30)
[2018-10-30 10:48] LABS: BASO % 0.3 % (0-2.0); EOS % 4.1 % (0-4.5); HEMATOCRIT 25.3 % (35.4-49); HEMOGLOBIN 8.7 GM/dL (11.7-16.9); LYMPH % 17.7 % (8-40); MCH 33.8 pg (25.7-33.7); MCHC 34.5 g/dl (32.0-35.9); MEAN CELL VOLUME 97.9 fl (80-96); NEUT % 68.9 % (42.8-82.8); PLATELET COUNT 182 K/MM3 (134-434); RBC 2.58 M/mm3 (4.00-5.60); RDW 15.7 % (11.9-15.9)
--- NOTE | 2018-10-30 10:52 | PN ---
Progress Note (short form) - Note Progress Note: Pt's LFTs have improved somewhat: Hepatic Panel Total Bilirubin 0.4 mg/dL (0.2-1) 10/30/18 00:10 AST 50 U/L (15-37) H 10/30/18 00:10 ALT 54 U/L (13-61) 10/30/18 00:10 Alkaline Phosphatase 195 U/L (45-117) H 10/30/18 00:10 Albumin 2.2 g/dl (3.4-5.0) L 10/30/18 00:10 His Hgb was down to 7.0 last night, though. I have repeated a rectal exam and again only obtain yellow-brown stool, no melena. His abdomen remains somewhat distended. One possibility is that he has bleeding intraperitoneally or retroperitoneally. My thought yesterday was that he had hemobilia from the manipulation; that would account for the transient rise in alk phos/ast/alt, but if he had enough hemobilia to drop his Hgb by 3 points I would expect to see melena by now. One way or another, it does not so far seem to be causing him any distress. If the Hgb keeps dropping then the next step to consider would be a CT to look for intraperitoneal/retroperitoneal blood collection. Problem List - Problems (1) Hematemesis Code(s): K92.0 - HEMATEMESIS (2) Cholecystostomy tube dysfunction Code(s): T85.518A - BREAKDOWN (MECHANICAL) OF GI PROSTH DEV/GRFT, INIT Qualifiers: Encounter type: initial encounter Qualified Code(s): T85.518A - Breakdown ( mechanical) of other gastrointestinal prosthetic devices, implants and grafts, initial encounter
[2018-10-30 11:30] LABS: ALBUMIN 2.2 g/dl (3.4-5.0); BILIRUBIN,DIRECT 0.3 mg/dL (0.0-0.2); BILIRUBIN,TOTAL 0.6 mg/dL (0.2-1); BLOOD UREA NITROGEN 28.5 mg/dL (7-18); CALCIUM 7.8 mg/dL (8.5-10.1); CREATININE 1.3 mg/dL (0.55-1.3); MAGNESIUM 2.1 mg/dL (1.8-2.4); PHOSPHOROUS 2.5 mg/dL (2.5-4.9); POTASSIUM 4.2 mmol/L (3.5-5.1); TOT PROT 5.7 g/dl (6.4-8.2)
--- NOTE | 2018-10-30 11:49 | PN ---
Progress Note, Physician Chief Complaint: Unable to obtain - Current Medication List Current Medications: Active Medications Acetaminophen (Ofirmev Injection -) 1,000 mg IVPB Q6H PRN PRN Reason: FEVER Last Admin: 10/28/18 14:33 Dose: 1,000 mg Metronidazole (Flagyl 500mg Premixed Ivpb -) 500 mg in 100 mls @ 100 mls/hr IVPB Q8H-IV HOANG Last Admin: 10/30/18 03:00 Dose: 100 mls/hr Ertapenem 1 gm/ Sodium (Chloride) 50 mls @ 100 mls/hr IVPB DAILY HOANG Last Admin: 10/29/18 10:14 Dose: 100 mls/hr Pantoprazole Sodium 80 mg/ (Sodium Chloride) 100 mls @ 10 mls/hr IVPB Q10H HOANG Last Admin: 10/30/18 03:00 Dose: 10 mls/hr Dextrose (D5w -) 1,000 mls @ 75 mls/hr IV ASDIR HOANG - Objective Vital Signs: Vital Signs Temperature 36.9 C 10/30/18 05:00 Pulse Rate 98 H 10/30/18 05:00 Respiratory Rate 18 10/30/18 05:00 Blood Pressure 142/74 10/30/18 05:00 O2 Sat by Pulse Oximetry (%) 96 10/29/18 20:28 Constitutional: Yes: Well Nourished, No Distress, Calm Cardiovascular: Yes: Regular Rate and Rhythm. No: Gallop, Murmur, Rub Respiratory: Yes: Regular, CTA Bilaterally. No: Rales, Rhonchi, Wheezes Gastrointestinal: Yes: Normal Bowel Sounds, Soft, Tenderness (slight). No: Distention Extremities: Yes: WNL Edema: No Labs: CBC, BMP 10/30/18 10:35 10/30/18 10:35 INR, PTT INR 1.23 (0.83-1.09) H 10/28/18 05:05 Problem List - Problems (1) Cholangitis due to bile duct calculus with obstruction Code(s): K80.31 - CALCULUS OF BILE DUCT W CHOLANGITIS, UNSP, WITH OBSTRUCTION (2) Cholecystostomy tube dysfunction Code(s): T85.518A - BREAKDOWN (MECHANICAL) OF GI PROSTH DEV/GRFT, INIT Qualifiers: Encounter type: initial encounter Qualified Code(s): T85.518A - Breakdown ( mechanical) of other gastrointestinal prosthetic devices, implants and grafts, initial encounter (3) Sepsis Code(s): A41.9 - SEPSIS, UNSPECIFIED ORGANISM Qualifiers: Sepsis type: sepsis due to unspecified organism Qualified Code(s): A41.9 - Sepsis, unspecified organism (4) JUAN J (acute kidney injury) Code(s): N17.9 - ACUTE KIDNEY FAILURE, UNSPECIFIED (5) Dehydration Code(s): E86.0 - DEHYDRATION (6) Dementia with behavioral disturbance Code(s): F03.91 - UNSPECIFIED DEMENTIA WITH BEHAVIORAL DISTURBANCE Qualifiers: Dementia type: unspecified type Qualified Code(s): F03.91 - Unspecified dementia with behavioral disturbance (7) Hypertension Code(s): I10 - ESSENTIAL (PRIMARY) HYPERTENSION Qualifiers: Hypertension type: essential hypertension Qualified Code(s): I10 - Essential (primary) hypertension Assessment/Plan 1) Cholangitis due to bile duct calculus with obstruction Assessment/Plan: -case d/w IR -s/p PTC -LFTs improving -case d/w Dr Ramos -H/H dropping, possible secondary to retroperitoneal bleed -monitor cbc -may need CT scan to evaluate but will hold at this time since stable and not on anticoagulation Code(s): K80.31 - CALCULUS OF BILE DUCT W CHOLANGITIS, UNSP, WITH OBSTRUCTION (2) Cholecystostomy tube dysfunction Assessment/Plan: -as above Code(s): T85.518A - BREAKDOWN (MECHANICAL) OF GI PROSTH DEV/GRFT, INIT Qualifiers: Encounter type: initial encounter Qualified Code(s): T85.518A - Breakdown ( mechanical) of other gastrointestinal prosthetic devices, implants and grafts, initial encounter (3) Sepsis Assessment/Plan: -continue ertapenem and flagyl Code(s): A41.9 - SEPSIS, UNSPECIFIED ORGANISM Qualifiers: Sepsis type: sepsis due to unspecified organism Qualified Code(s): A41.9 - Sepsis, unspecified organism (4) JUAN J (acute kidney injury) Assessment/Plan: -stable -continue hydration Code(s): N17.9 - ACUTE KIDNEY FAILURE, UNSPECIFIED (5) Dehydration Assessment/Plan: -IVF Code(s): E86.0 - DEHYDRATION (6) Dementia with behavioral disturbance Assessment/Plan: -restart clonazepam and remeron when stable Code(s): F03.91 - UNSPECIFIED DEMENTIA WITH BEHAVIORAL DISTURBANCE Qualifiers: Dementia type: unspecified type Qualified Code(s): F03.91 - Unspecified dementia with behavioral disturbance (7) Hypertension Assessment/Plan: -monitor -may be able to start antihypertensives soon Code(s): I10 - ESSENTIAL (PRIMARY) HYPERTENSION Qualifiers: Hypertension type: essential hypertension Qualified Code(s): I10 - Essential (primary) hypertension (8) GI Bleed -as above -s/p 1 unit (10) Hypernatremia -start D5W -recheck evening labs
[2018-10-30] MEDS: DEXTROSE 5%-WATER - 1,000 ML IV SCH (11:56)
[2018-10-30] MEDS: ERTAPENEM SODIUM 1 GM in SODIUM CHLORIDE 50 ML IVPB SCH (11:57)
[2018-10-30 20:18] LABS: HEMATOCRIT 23.9 % (35.4-49); HEMOGLOBIN 8.4 GM/dL (11.7-16.9); MEAN CELL VOLUME 97.2 fl (80-96); MEAN PLT VOLUME 8.2 fl (7.5-11.1); PLATELET COUNT 186 K/MM3 (134-434); RBC 2.46 M/mm3 (4.00-5.60); RDW 16.3 % (11.9-15.9); WHITE BLOOD COUNT 6.3 K/mm3 (4.0-10.0)
[2018-10-30 20:36] LABS: BLOOD UREA NITROGEN 26.9 mg/dL (7-18); CREATININE 1.2 mg/dL (0.55-1.3); POTASSIUM 4.3 mmol/L (3.5-5.1)
[2018-10-31] MEDS: PANTOPRAZOLE SODIUM 80 MG in SODIUM CHLORIDE 100 ML IVPB SCH ×3 (04:03→23:14)
[2018-10-31 06:22] LABS: BASO % 0.4 % (0-2.0); EOS % 6.8 % (0-4.5); HEMATOCRIT 23.9 % (35.4-49); HEMOGLOBIN 8.3 GM/dL (11.7-16.9); LYMPH % 20.7 % (8-40); MCH 33.7 pg (25.7-33.7); MCHC 34.5 g/dl (32.0-35.9); MEAN CELL VOLUME 97.6 fl (80-96); MEAN PLT VOLUME 7.9 fl (7.5-11.1); MONO % 8.9 % (3.8-10.2); NEUT % 63.2 % (42.8-82.8); PLATELET COUNT 179 K/MM3 (134-434); RBC 2.45 M/mm3 (4.00-5.60); RDW 15.7 % (11.9-15.9)
[2018-10-31 07:38] LABS: ALBUMIN 2.2 g/dl (3.4-5.0); BILIRUBIN,DIRECT 0.3 mg/dL (0.0-0.2); BILIRUBIN,TOTAL 0.6 mg/dL (0.2-1); BLOOD UREA NITROGEN 23.8 mg/dL (7-18); CALCIUM 7.6 mg/dL (8.5-10.1); CREATININE 1.1 mg/dL (0.55-1.3); MAGNESIUM 1.9 mg/dL (1.8-2.4); PHOSPHOROUS 2.4 mg/dL (2.5-4.9); POTASSIUM 3.5 mmol/L (3.5-5.1); TOT PROT 5.4 g/dl (6.4-8.2)
--- NOTE | 2018-10-31 09:00 | PN ---
Physical Exam: SUBJECTIVE: Patient seen and examined at bed side , no acute events over night , some bilious vomiting over the weekend , still NPO , PEG Tube in place , PTC in place clamped no fever , no chills, NA trending down H/H stable will consider start diet today monitro off abx OBJECTIVE: Vital Signs Period Temp Pulse Resp BP Sys/Hernandez Pulse Ox Last 24 Hr 97.0 F-99.1 F 72-85 18-22 108-152/77-88 96-100 GENERAL: The patient is drowsy but arousable, resting comfortably LUNGS: Breath sounds equal, clear to auscultation bilaterally, no wheezes HEART: Regular rate and rhythm, S1, S2 without murmur ABDOMEN: Soft, tender RUQ, mild distension, hypoactive bowel sounds, Replaced cholecystostomy tube RUQ, draining greenish/yellowish fluid, GT in place LUQ, clean dry surrounding skin EXTREMITIES: 2+ pulses, warm, well-perfused, no edema. NEUROLOGICAL: confused , no focal deficit , able to move all extremities, no facial droop Laboratory Results - last 24 hr 10/30/18 10/30/18 10/30/18 10:35 10:35 19:00 WBC 7.0 6.3 RBC 2.58 L 2.46 L Hgb 8.7 L 8.4 L Hct 25.3 L D 23.9 L MCV 97.9 H 97.2 H MCH 33.8 H 34.0 H MCHC 34.5 35.0 RDW 15.7 D 16.3 H Plt Count 182 186 MPV 8.0 8.2 Absolute Neuts (auto) 4.8 Neutrophils % 68.9 Lymphocytes % 17.7 D Monocytes % 9.0 Eosinophils % 4.1 D Basophils % 0.3 Nucleated RBC % 0 Sodium 153 H Potassium 4.2 Chloride 121 H Carbon Dioxide 25 Anion Gap 7 L BUN 28.5 H Creatinine 1.3 Est GFR (CKD-EPI)AfAm 56.07 Est GFR (CKD-EPI)NonAf 48.38 Random Glucose 85 Calcium 7.8 L Phosphorus 2.5 Magnesium 2.1 Total Bilirubin 0.6 Direct Bilirubin 0.3 H AST 43 H ALT 51 Alkaline Phosphatase 193 H Total Protein 5.7 L Albumin 2.2 L 10/30/18 10/31/18 10/31/18 20:00 05:05 05:05 WBC 6.0 RBC 2.45 L Hgb 8.3 L Hct 23.9 L MCV 97.6 H MCH 33.7 MCHC 34.5 RDW 15.7 Plt Count 179 MPV 7.9 Absolute Neuts (auto) 3.8 Neutrophils % 63.2 Lymphocytes % 20.7 Monocytes % 8.9 Eosinophils % 6.8 H Basophils % 0.4 Nucleated RBC % 0 Sodium 149 H 147 H Potassium 4.3 3.5 Chloride 119 H 116 H Carbon Dioxide 26 25 Anion Gap 4 L 5 L BUN 26.9 H 23.8 H Creatinine 1.2 1.1 Est GFR (CKD-EPI)AfAm 61.76 68.62 Est GFR (CKD-EPI)NonAf 53.29 59.20 Random Glucose 96 89 Calcium 8.0 L 7.6 L Phosphorus 2.4 L Magnesium 1.9 Total Bilirubin 0.6 Direct Bilirubin 0.3 H AST 29 ALT 40 Alkaline Phosphatase 161 H Total Protein 5.4 L Albumin 2.2 L Active Medications Generic Name Dose Route Start Last Admin Trade Name Roryq PRN Reason Stop Dose Admin Acetaminophen 1,000 mg 10/27/18 06:14 10/28/18 14:33 Ofirmev Injection - IVPB 1,000 mg Q6H PRN Administration FEVER Metronidazole 500 mg in 100 mls @ 100 mls/hr 10/27/18 02:00 10/31/18 02:56 Flagyl 500mg Premixed Ivpb - IVPB 100 mls/hr Q8H-IV HOANG Administration Ertapenem 1 gm/ Sodium 50 mls @ 100 mls/hr 10/27/18 12:00 10/30/18 11:57 Chloride IVPB 100 mls/hr DAILY HOANG Administration Pantoprazole Sodium 80 mg/ 100 mls @ 10 mls/hr 10/29/18 06:00 10/31/18 04:03 Sodium Chloride IVPB 10 mls/hr Q10H HOANG Administration 8 MG/HR Dextrose 1,000 mls @ 75 mls/hr 10/30/18 07:45 10/30/18 11:56 D5w - IV 75 mls/hr ASDIR HOANG Administration Metoprolol Tartrate 100 mg 10/31/18 10:00 Lopressor - GT BID HOANG CBC, BMP 10/31/18 05:05 10/31/18 05:05 ASSESSMENT/PLAN: Pt is an 88 yo M with Signif PMHx for HTN, Anemia, Dementia, recurrent aspiration pneumonia, bipolar disorder, G-tube placement, and multiple admissions for acute cholecystitis (s/p cholecystostomy tube dislodgement) presenting from [facility] on the [place] for abdominal pain and poor PO intake and dislodged cholecystectomy tube for one day #Sepsis secondary to cholecystitis s.p PTC , resolved * s/p cholecystostomy tube replacement 10/26/18 * In setting of dislodged cholecystostomy tube * Cont iv hydration * S.P Metronidazole and Ertapenim * monitor Off abx per ID #dislodged cholecystectomy tube with cholecystitis and prior cholangitis * S/p replacement of cholecystostomy tube 10/26/18 * Pending per Dr Garcia-IR placed PTC (percutaneous transhepatic cholangiography ) tube placement today * Per Dr Garcia pt possibly has a tumor and would benefit from a stenting that does not leave any tube outside of the body #poor PO intake * Pt feeds both by mouth and through GT * Had poor PO intake with possible dehydration prior to admission * Cont fluid hydration * pending GI recommendation #Hypotension, resolved , no Hypertensive will resume lopressor today and if cont to be HTN will restart norvasc as well tomorrow #HTN BP meds on hold at this time in setting of hypotension Cont to monitor #Anemia, Macrocytic anemia * Transfusion tHreshold <8 * NO ACTIVE BLEEDING , MONITOR h/h #Dementia/bipolar disorder/recurrent aspiration pneumonia * Aspiration precautions * Fall precautions * Hold sychotropic medications #Tele Visit type - Emergency Visit Emergency Visit: Yes ED Registration Date: 10/26/18 Care time: The patient presented to the Emergency Department on the above date and was hospitalized for further evaluation of their emergent condition. - New Patient This patient is new to me today: Yes Date on this admission: 10/31/18 - Critical Care Critical Care patient: No - Discharge Referral Referred to [facility] Med P.C.: No ATTENDING PHYSICIAN STATEMENT I saw and evaluated the patient. I reviewed the resident's note and discussed the case with the resident. I agree with the resident's findings and plan as documented. SUBJECTIVE: OBJECTIVE: ASSESSMENT AND PLAN:
[2018-10-31] MEDS ORDERED: NAPH,MB-DB/K PH,MBDB POWDER PACKET GT ONE (09:02)
[2018-10-31] MEDS ORDERED: PT OWN MED DRAWER 7, Y5N ONE (10:21)
--- NOTE | 2018-10-31 10:59 | PN ---
Teaching Attending Note Name of Resident: Mathtew Driver ATTENDING PHYSICIAN STATEMENT I saw and evaluated the patient. I reviewed the resident's note and discussed the case with the resident. I agree with the resident's findings and plan as documented. SUBJECTIVE: Mr Menezes is groaning, cannot obtain subjective OBJECTIVE: Last Vital Signs Temp Pulse Resp BP Pulse Ox 36.6 C 72 22 H 142/78 96 10/31/18 05:00 10/31/18 08:48 10/31/18 08:51 10/31/18 08:48 10/31/18 08:51 Gen: nad but moaning Pulm: ctab w/o w/r/r CV: rrr w/o m/r/g Abd: +bs, s/nt, distention unchanged Ext: no c/c/e CBC, BMP 10/31/18 05:05 10/31/18 05:05 ASSESSMENT AND PLAN: 1) Cholangitis due to bile duct calculus with obstruction Assessment/Plan: -LFTs improving -continue to monitor -PTC in place Code(s): K80.31 - CALCULUS OF BILE DUCT W CHOLANGITIS, UNSP, WITH OBSTRUCTION (2) Cholecystostomy tube dysfunction Assessment/Plan: -as above Code(s): T85.518A - BREAKDOWN (MECHANICAL) OF GI PROSTH DEV/GRFT, INIT Qualifiers: Encounter type: initial encounter Qualified Code(s): T85.518A - Breakdown ( mechanical) of other gastrointestinal prosthetic devices, implants and grafts, initial encounter (3) Sepsis Assessment/Plan: -ID stopped antibiotics -monitor Code(s): A41.9 - SEPSIS, UNSPECIFIED ORGANISM Qualifiers: Sepsis type: sepsis due to unspecified organism Qualified Code(s): A41.9 - Sepsis, unspecified organism (4) JUAN J (acute kidney injury) Assessment/Plan: -stable -continue hydration Code(s): N17.9 - ACUTE KIDNEY FAILURE, UNSPECIFIED (5) Dehydration Assessment/Plan: -IVF Code(s): E86.0 - DEHYDRATION (6) Dementia with behavioral disturbance Assessment/Plan: -restart clonazepam and remeron when stable Code(s): F03.91 - UNSPECIFIED DEMENTIA WITH BEHAVIORAL DISTURBANCE Qualifiers: Dementia type: unspecified type Qualified Code(s): F03.91 - Unspecified dementia with behavioral disturbance (7) Hypertension Assessment/Plan: -can restart metoprolol today Code(s): I10 - ESSENTIAL (PRIMARY) HYPERTENSION Qualifiers: Hypertension type: essential hypertension Qualified Code(s): I10 - Essential (primary) hypertension (8) GI Bleed -stable -will await GI evaluation to see if safe to restart TFs today -will also benefit from speech therapy consult (10) Hypernatremia -improving -continue D5W currently Problem List - Problems (1) Cholangitis due to bile duct calculus with obstruction Code(s): K80.31 - CALCULUS OF BILE DUCT W CHOLANGITIS, UNSP, WITH OBSTRUCTION (2) Cholecystostomy tube dysfunction Code(s): T85.518A - BREAKDOWN (MECHANICAL) OF GI PROSTH DEV/GRFT, INIT Qualifiers: Encounter type: initial encounter Qualified Code(s): T85.518A - Breakdown ( mechanical) of other gastrointestinal prosthetic devices, implants and grafts, initial encounter (3) Sepsis Code(s): A41.9 - SEPSIS, UNSPECIFIED ORGANISM Qualifiers: Sepsis type: sepsis due to unspecified organism Qualified Code(s): A41.9 - Sepsis, unspecified organism (4) JUNA J (acute kidney injury) Code(s): N17.9 - ACUTE KIDNEY FAILURE, UNSPECIFIED (5) Dehydration Code(s): E86.0 - DEHYDRATION (6) Dementia with behavioral disturbance Code(s): F03.91 - UNSPECIFIED DEMENTIA WITH BEHAVIORAL DISTURBANCE Qualifiers: Dementia type: unspecified type Qualified Code(s): F03.91 - Unspecified dementia with behavioral disturbance (7) Hypertension Code(s): I10 - ESSENTIAL (PRIMARY) HYPERTENSION Qualifiers: Hypertension type: essential hypertension Qualified Code(s): I10 - Essential (primary) hypertension
--- NOTE | 2018-10-31 11:35 | PN ---
Progress Note, Physician History of Present Illness: S/P BILIARY STENT CONFUSED AFEBRILE WBC WNL BC (-) - Current Medication List Current Medications: Active Medications Acetaminophen (Ofirmev Injection -) 1,000 mg IVPB Q6H PRN PRN Reason: FEVER Last Admin: 10/28/18 14:33 Dose: 1,000 mg Metronidazole (Flagyl 500mg Premixed Ivpb -) 500 mg in 100 mls @ 100 mls/hr IVPB Q8H-IV HOANG Last Admin: 10/31/18 02:56 Dose: 100 mls/hr Ertapenem 1 gm/ Sodium (Chloride) 50 mls @ 100 mls/hr IVPB DAILY HOANG Last Admin: 10/30/18 11:57 Dose: 100 mls/hr Pantoprazole Sodium 80 mg/ (Sodium Chloride) 100 mls @ 10 mls/hr IVPB Q10H HOANG Last Admin: 10/31/18 04:03 Dose: 10 mls/hr Dextrose (D5w -) 1,000 mls @ 75 mls/hr IV ASDIR [facility] Last Admin: 10/30/18 11:56 Dose: 75 mls/hr Metoprolol Tartrate (Lopressor -) 100 mg GT BID [facility] - Objective Vital Signs: Vital Signs Temperature 97.8 F 10/31/18 05:00 Pulse Rate 72 10/31/18 08:48 Respiratory Rate 22 H 10/31/18 08:51 Blood Pressure 142/78 10/31/18 08:48 O2 Sat by Pulse Oximetry (%) 96 10/31/18 08:51 Constitutional: Yes: No Distress Cardiovascular: Yes: Regular Rate and Rhythm, S1, S2 Respiratory: Yes: Diminished Gastrointestinal: Yes: Normal Bowel Sounds, Soft, Other (SL DISTENDED, SOFT + GREEN BILE IN BILIARY DRAIN) Edema: No Labs: CBC, BMP 10/31/18 05:05 10/31/18 05:05 INR, PTT INR 1.23 (0.83-1.09) H 10/28/18 05:05 Assessment/Plan S/P BILIARY STENT S/P REPLACEMENT BILIARY DRAIN HX ESBL D/C ANTIBIOTICS, OBSERVE OFF
[2018-10-31] MEDS: DEXTROSE 5%-WATER - 1,000 ML IV SCH (12:30)
[2018-10-31] MEDS: METOPROLOL TARTRATE 50 MG TABLET (FP) GT SCH ×2 (12:31→23:07)
[2018-10-31] MEDS: ERTAPENEM SODIUM 1 GM in SODIUM CHLORIDE 50 ML IVPB SCH (12:38)
--- NOTE | 2018-10-31 22:21 | PN ---
Progress Note (short form) - Note Progress Note: GI Note: Polo is asleep so I didn't awaken him. I see that he Hb has stablized and LFTs are improving.
--- NOTE | 2018-11-01 05:04 | PN ---
<Matthew Driver - Last Filed: 11/01/18 18:33> Physical Exam: SUBJECTIVE: Patient seen and examined at bed side , AOx3 , denies any complain , no acute events over night, PEG in place , PTC with green bile drainage.no vomiting reported. OBJECTIVE: Vital Signs Period Temp Pulse Resp BP Sys/Hernandez Pulse Ox Last 24 Hr 97.9 F-99.4 F 52-99 18-22 120-161/63-107 96-98 GENERAL: AAOx3 , LUNGS: CTA B/L HEART: Regular rate and rhythm, S1, S2 without murmur ABDOMEN: Soft, tender RUQ, mild distension, + BS all 4 Q , Replaced cholecystostomy tube RUQ, draining greenish/yellowish fluid, GT in place LUQ, clean dry surrounding skin EXTREMITIES: 2+ pulses, warm, well-perfused, no edema. NEUROLOGICAL: confused , no focal deficit , able to move all extremities, no facial droop Laboratory Results - last 24 hr 10/31/18 10/31/18 05:05 05:05 WBC 6.0 RBC 2.45 L Hgb 8.3 L Hct 23.9 L MCV 97.6 H MCH 33.7 MCHC 34.5 RDW 15.7 Plt Count 179 MPV 7.9 Absolute Neuts (auto) 3.8 Neutrophils % 63.2 Lymphocytes % 20.7 Monocytes % 8.9 Eosinophils % 6.8 H Basophils % 0.4 Nucleated RBC % 0 Sodium 147 H Potassium 3.5 Chloride 116 H Carbon Dioxide 25 Anion Gap 5 L BUN 23.8 H Creatinine 1.1 Est GFR (CKD-EPI)AfAm 68.62 Est GFR (CKD-EPI)NonAf 59.20 Random Glucose 89 Calcium 7.6 L Phosphorus 2.4 L Magnesium 1.9 Total Bilirubin 0.6 Direct Bilirubin 0.3 H AST 29 ALT 40 Alkaline Phosphatase 161 H Total Protein 5.4 L Albumin 2.2 L Active Medications Generic Name Dose Route Start Last Admin Trade Name Freq PRN Reason Stop Dose Admin Acetaminophen 1,000 mg 10/27/18 06:14 10/28/18 14:33 Ofirmev Injection - IVPB 1,000 mg Q6H PRN Administration FEVER Pantoprazole Sodium 80 mg/ 100 mls @ 10 mls/hr 10/29/18 06:00 10/31/18 23:14 Sodium Chloride IVPB 10 mls/hr Q10H HOANG Administration 8 MG/HR Dextrose 1,000 mls @ 75 mls/hr 10/30/18 07:45 10/31/18 12:30 D5w - IV 75 mls/hr ASDIR HOANG Administration Metoprolol Tartrate 100 mg 10/31/18 10:00 10/31/18 23:07 Lopressor - GT Not Given BID HOANG ASSESSMENT/PLAN: Pt is an 88 yo M with Signif PMHx for HTN, Anemia, Dementia, recurrent aspiration pneumonia, bipolar disorder, G-tube placement, and multiple admissions for acute cholecystitis (s/p cholecystostomy tube dislodgement) presenting from [facility] on the [place] for abdominal pain and poor PO intake and dislodged cholecystectomy tube for one day #Sepsis secondary to cholecystitis s.p PTC , resolved * s/p cholecystostomy tube replacement 10/26/18 * In setting of dislodged cholecystostomy tube * Cont iv hydration * S.P Metronidazole and Ertapenim * monitor Off abx per ID #dislodged cholecystectomy tube with cholecystitis and prior cholangitis * S/p replacement of cholecystostomy tube 10/26/18 * Pending per Dr Garcia-IR placed PTC (percutaneous transhepatic cholangiography ) tube placement today * Per Dr Garcia pt possibly has a tumor and would benefit from a stenting that does not leave any tube outside of the body #poor PO intake * Pt feeds both by mouth and through GT * Had poor PO intake with possible dehydration prior to admission * Cont fluid hydration * [place] 1.2 tube feeding today and then NPO after mid night for IR evaluate PTC in AM #Hypotension, resolved , no Hypertensive will resume lopressor today and if cont to be HTN will restart norvasc as well tomorrow #HTN BP meds on hold at this time in setting of hypotension Cont to monitor #Anemia, Macrocytic anemia * Transfusion tHreshold <8 * NO ACTIVE BLEEDING , MONITOR h/h #Dementia/bipolar disorder/recurrent aspiration pneumonia * Aspiration precautions * Fall precautions * Hold sychotropic medications #Tele will feed him today and NPO after mid night , possible dc tomorrow to long term IR evaluate PTC in AM Visit type - Emergency Visit Emergency Visit: Yes ED Registration Date: 10/26/18 Care time: The patient presented to the Emergency Department on the above date and was hospitalized for further evaluation of their emergent condition. - New Patient This patient is new to me today: No - Critical Care Critical Care patient: No ATTENDING PHYSICIAN STATEMENT I saw and evaluated the patient. I reviewed the resident's note and discussed the case with the resident. I agree with the resident's findings and plan as documented. SUBJECTIVE: OBJECTIVE: ASSESSMENT AND PLAN: <JazzNaila silvestre J - Last Filed: 11/01/18 20:12> Physical Exam: SUBJECTIVE: Patient seen and examined. He denies abdominal pain. Nods yes to being hungry OBJECTIVE: Vital Signs Period Temp Pulse Resp BP Sys/Hernandez Pulse Ox Last 24 Hr 97.9 F-98.7 F 60-99 18-20 120-161/63-91 98-98 GENERAL: The patient is awake and confused ABDOMEN: epigastric G-tube, RUQ biliary catheter, nontender, nondistended, normoactive bowel sounds, no masses. Laboratory Results - last 24 hr 11/01/18 11/01/18 05:35 05:35 WBC 6.7 RBC 2.57 L Hgb 8.8 L Hct 24.8 L MCV 96.5 H MCH 34.3 H MCHC 35.6 RDW 14.6 Plt Count 185 MPV 8.2 Absolute Neuts (auto) 4.0 Neutrophils % 60.2 Lymphocytes % 21.7 Monocytes % 9.2 Eosinophils % 8.5 H Basophils % 0.4 Nucleated RBC % 0 Sodium 141 Potassium 3.3 L Chloride 108 H Carbon Dioxide 26 Anion Gap 7 L BUN 19.8 H Creatinine 1.1 Est GFR (CKD-EPI)AfAm 68.62 Est GFR (CKD-EPI)NonAf 59.20 Random Glucose 100 Calcium 7.4 L Phosphorus 2.4 L Magnesium 1.6 L Total Bilirubin 0.8 Direct Bilirubin 0.4 H AST 22 ALT 34 Alkaline Phosphatase 156 H Total Protein 5.6 L Albumin 2.2 L Active Medications Generic Name Dose Route Start Last Admin Trade Name Freq PRN Reason Stop Dose Admin Acetaminophen 1,000 mg 10/27/18 06:14 10/28/18 14:33 Ofirmev Injection - IVPB 1,000 mg Q6H PRN Administration FEVER Pantoprazole Sodium 80 mg/ 100 mls @ 10 mls/hr 10/29/18 06:00 11/01/18 13:29 Sodium Chloride IVPB 10 mls/hr Q10H HOANG Administration 8 MG/HR Dextrose 1,000 mls @ 75 mls/hr 10/30/18 07:45 11/01/18 08:10 D5w - IV 75 mls/hr ASDIR HOANG Administration Metoprolol Tartrate 100 mg 10/31/18 10:00 11/01/18 09:17 Lopressor - GT 100 mg BID HOANG Administration ASSESSMENT/PLAN: Choledocholithiasis appears to be adequately drained by current biliary catheter . If stent is placed need to leave external access for exchange should it become obstructed by inspissated bile. ERCP has been refused in the past Agree with resuming G tube feedings ATTENDING PHYSICIAN STATEMENT I saw and evaluated the patient. I reviewed the resident's note and discussed the case with the resident. I agree with the resident's findings and plan as documented. SUBJECTIVE: OBJECTIVE: ASSESSMENT AND PLAN:
[2018-11-01 07:43] LABS: BASO % 0.4 % (0-2.0); EOS % 8.5 % (0-4.5); HEMATOCRIT 24.8 % (35.4-49); HEMOGLOBIN 8.8 GM/dL (11.7-16.9); LYMPH % 21.7 % (8-40); MCH 34.3 pg (25.7-33.7); MCHC 35.6 g/dl (32.0-35.9); MEAN CELL VOLUME 96.5 fl (80-96); MEAN PLT VOLUME 8.2 fl (7.5-11.1); MONO % 9.2 % (3.8-10.2); NEUT % 60.2 % (42.8-82.8); PLATELET COUNT 185 K/MM3 (134-434); RBC 2.57 M/mm3 (4.00-5.60); RDW 14.6 % (11.9-15.9); WHITE BLOOD COUNT 6.7 K/mm3 (4.0-10.0)
[2018-11-01] MEDS: DEXTROSE 5%-WATER - 1,000 ML IV SCH (08:10)
[2018-11-01] MEDS: PANTOPRAZOLE SODIUM 80 MG in SODIUM CHLORIDE 100 ML IVPB SCH ×2 (08:11→13:29)
[2018-11-01 08:15] LABS: ALBUMIN 2.2 g/dl (3.4-5.0); BILIRUBIN,DIRECT 0.4 mg/dL (0.0-0.2); BILIRUBIN,TOTAL 0.8 mg/dL (0.2-1); BLOOD UREA NITROGEN 19.8 mg/dL (7-18); CALCIUM 7.4 mg/dL (8.5-10.1); CREATININE 1.1 mg/dL (0.55-1.3); MAGNESIUM 1.6 mg/dL (1.8-2.4); PHOSPHOROUS 2.4 mg/dL (2.5-4.9); POTASSIUM 3.3 mmol/L (3.5-5.1); TOT PROT 5.6 g/dl (6.4-8.2)
[2018-11-01] MEDS: METOPROLOL TARTRATE 50 MG TABLET (FP) GT SCH ×2 (09:17→21:20)
[2018-11-01] MEDS ORDERED: MAGNESIUM SULF 50% (8.12 MEQ/2 ML-1 GM VIAL) IVPB ONE (12:45)
[2018-11-01] MEDS ORDERED: KCL 10 MEQ IVPB 10 MEQ/100 ML INFUS.BAG IVPB SCH (12:45)
[2018-11-01] MEDS ORDERED: POTASSIUM PHOSPHATE 20 MM in DEXTROSE 5%-WATER - 250 ML IVPB ONE (13:00)
--- NOTE | 2018-11-01 13:39 | CONSULT ---
Admitting History and Physical - Primary Care Physician PCP: Lm Medina - Admission History of Present Illness: Admitted for Abdominal pain and dislodged cholecystostomy tube x1 day Seen last by me 07/2018-87yo M from [facility] with PNH cholangitis with cholecystomy tube which was dislodged and then never replaced in October 2017 , hx of aspiration PNA, PEG, HTN and dementia sent to hospital 06/28 due to SOB noted by staff and found to be in severe sepsis due to suspected cholangitis/ intubated. 07/2017 mbs a year ago, which demonstrated normal swallowing function. Suggested PO trials, to wean from PEG. PEG has not been used reportedly in a year with good po tolerance. Pt feeds both by mouth and through GT. Per transfer summary notes from [facility], poor appetite. Usually eats breakfast but not lunch or dinner. History Source: Medical Record Limitations to Obtaining History: Clinical Condition - Past Medical History UNDERCOATER: Yes: Dementia Cardiovascular: Yes: HTN Gastrointestinal: Yes: Other (PEG present. 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) - Past Surgical History Past Surgical History: Yes: Hernia Repair (inguinal hernia repair), Upper Endoscopy (with ERCP and stone extraction 2015 [place] (too sick for cholecystectomy)) - Smoking History Smoking history: Unknown if ever smoked Have you smoked in the past 12 months: No If you are a former smoker, when did you quit?: 30 YRS AGO - 1-2ppd x 20-30 yrs - Alcohol/Substance Use Hx Alcohol Use: No History of Substance Use: reports: None - Social History ADL: Support Services History - Admission Reason For Visit: ACUTE KIDNEY INJURY - Diagnostics X-ray: Report Reviewed - General Mental Status: Alert and Oriented (to [facility]), Awake and Alert, Able to Follow Commands, Anxious (tearful. Wants his . Doesnt feel well.) Attention: Distractible, Mild Impairment Ability to Follow Directions: Fair - Hearing Hearing: Functional Hearing Aide: (unable to obtain informat) Speech Evaluation - Communication Primary Language: SLOVENIAN Communication: Yes: Simple Responses Oral Expression Ability: Yes: Mild Impairment - Speech Production Able to Make Needs Known: Yes: Mildly Impaired Intelligibility: Yes: Mildly Impaired - Speech Characteristics Voice Loudness: Mildly Soft/Quiet Voice Pitch: Yes: Excessive Variation Voice Phonatory-based Quality: Yes: Quivering (tearful.), Weak Speech Clarity: < 75% Nasal Resonance: Normal Articulation: Yes: Imprecise - Language/Auditory Comprehension Follows: Yes: 1 Stage Simple Commands - Swallow Evaluation/Bedside Assessment Current Nutritional Intake: NPO Oral Secretions: Yes: WFL Facial Symmetry at Rest: Symmetrical Recommendations - Speech Evaluation, Impression/Plan Impression: Tearful. Weak voice. Wants his . Adamently refused PO trials for me. Tolerated applesauce and water from nursing without overt difficulty. Depressed? - Disposition Discharge to: Assisted Facility - Dysphagia Impressions/Plan Dysphagia Impressions: Ongoing Evaluation, Refused PO Trials *Silent aspiration: cannot be R/O at bedside - Recommendations Diet Consistency: Mechanical Soft, Other (as tolerated) Liquids: Thin Liquids Supplement: Ensure, Magic Cup, Ensure Pudding
--- NOTE | 2018-11-01 16:47 | PN ---
Teaching Attending Note Name of Resident: Matthew Driver ATTENDING PHYSICIAN STATEMENT I saw and evaluated the patient. I reviewed the resident's note and discussed the case with the resident. I agree with the resident's findings and plan as documented. SUBJECTIVE: Mr Menezes is much improved today, is now talking at back to baseline. Denies cp, sob, n/v. OBJECTIVE: Last Vital Signs Temp Pulse Resp BP Pulse Ox 36.7 C 74 20 134/70 98 11/01/18 08:58 11/01/18 14:00 11/01/18 14:00 11/01/18 14:00 11/01/18 08:55 Gen: nad Pulm: ctab w/o w/r/r CV: rrr w/o m/r/g Abd: +bs, s/nt/nd Ext: no c/c/e CBC, BMP 11/01/18 05:35 11/01/18 05:35 ASSESSMENT AND PLAN: 1) Cholangitis due to bile duct calculus with obstruction Assessment/Plan: -case d/w Dr Anderson -will go to IR tomorrow to evaluate PTC and stents -if patent, can remove percutaneous tube Code(s): K80.31 - CALCULUS OF BILE DUCT W CHOLANGITIS, UNSP, WITH OBSTRUCTION (2) Cholecystostomy tube dysfunction Assessment/Plan: -as above Code(s): T85.518A - BREAKDOWN (MECHANICAL) OF GI PROSTH DEV/GRFT, INIT Qualifiers: Encounter type: initial encounter Qualified Code(s): T85.518A - Breakdown ( mechanical) of other gastrointestinal prosthetic devices, implants and grafts, initial encounter (3) Sepsis Assessment/Plan: -resolved Code(s): A41.9 - SEPSIS, UNSPECIFIED ORGANISM Qualifiers: Sepsis type: sepsis due to unspecified organism Qualified Code(s): A41.9 - Sepsis, unspecified organism (4) UJAN J (acute kidney injury) Assessment/Plan: -stable -continue hydration Code(s): N17.9 - ACUTE KIDNEY FAILURE, UNSPECIFIED (5) Dehydration Assessment/Plan: -can stop IVF -start diet Code(s): E86.0 - DEHYDRATION (6) Dementia with behavioral disturbance Assessment/Plan: -stable Code(s): F03.91 - UNSPECIFIED DEMENTIA WITH BEHAVIORAL DISTURBANCE Qualifiers: Dementia type: unspecified type Qualified Code(s): F03.91 - Unspecified dementia with behavioral disturbance (7) Hypertension Assessment/Plan: -continue metoprolol Code(s): I10 - ESSENTIAL (PRIMARY) HYPERTENSION Qualifiers: Hypertension type: essential hypertension Qualified Code(s): I10 - Essential (primary) hypertension (8) GI Bleed -resolved (10) Hypernatremia -resolved -stop IVF -start on diet Problem List - Problems (1) Cholangitis due to bile duct calculus with obstruction Code(s): K80.31 - CALCULUS OF BILE DUCT W CHOLANGITIS, UNSP, WITH OBSTRUCTION (2) Cholecystostomy tube dysfunction Code(s): T85.518A - BREAKDOWN (MECHANICAL) OF GI PROSTH DEV/GRFT, INIT Qualifiers: Encounter type: initial encounter Qualified Code(s): T85.518A - Breakdown ( mechanical) of other gastrointestinal prosthetic devices, implants and grafts, initial encounter (3) Sepsis Code(s): A41.9 - SEPSIS, UNSPECIFIED ORGANISM Qualifiers: Sepsis type: sepsis due to unspecified organism Qualified Code(s): A41.9 - Sepsis, unspecified organism (4) JUAN J (acute kidney injury) Code(s): N17.9 - ACUTE KIDNEY FAILURE, UNSPECIFIED (5) Dehydration Code(s): E86.0 - DEHYDRATION (6) Dementia with behavioral disturbance Code(s): F03.91 - UNSPECIFIED DEMENTIA WITH BEHAVIORAL DISTURBANCE Qualifiers: Dementia type: unspecified type Qualified Code(s): F03.91 - Unspecified dementia with behavioral disturbance (7) Hypertension Code(s): I10 - ESSENTIAL (PRIMARY) HYPERTENSION Qualifiers: Hypertension type: essential hypertension Qualified Code(s): I10 - Essential (primary) hypertension
[2018-11-02 06:48] LABS: BASO % 0.5 % (0-2.0); EOS % 5.7 % (0-4.5); HEMOGLOBIN 10.1 GM/dL (11.7-16.9); LYMPH % 24.3 % (8-40); MCH 33.6 pg (25.7-33.7); MCHC 34.8 g/dl (32.0-35.9); MEAN CELL VOLUME 96.6 fl (80-96); MEAN PLT VOLUME 8.2 fl (7.5-11.1); MONO % 8.4 % (3.8-10.2); NEUT % 61.1 % (42.8-82.8); PLATELET COUNT 234 K/MM3 (134-434); RDW 14.4 % (11.9-15.9); WHITE BLOOD COUNT 8.9 K/mm3 (4.0-10.0)
[2018-11-02 07:53] LABS: ALBUMIN 2.4 g/dl (3.4-5.0); BLOOD UREA NITROGEN 17.9 mg/dL (7-18); CREATININE 1.1 mg/dL (0.55-1.3); MAGNESIUM 2.1 mg/dL (1.8-2.4); PHOSPHOROUS 3.3 mg/dL (2.5-4.9); TOT PROT 6.4 g/dl (6.4-8.2)
--- NOTE | 2018-11-02 09:09 | PN ---
Physical Exam: SUBJECTIVE: Patient seen and examined at [facility] side , npo last night for IR evaluation PTC today , no fever no chills, was screaming I will today , OBJECTIVE: Vital Signs Period Temp Pulse Resp BP Sys/Hernandez Pulse Ox Last 24 Hr 98.1 F-99 F 60-79 20-20 129-163/65-90 97-97 GENERAL: AAOx3 , LUNGS: CTA B/L HEART: Regular rate and rhythm, S1, S2 without murmur ABDOMEN: Soft, tender RUQ, mild distension, + BS all 4 Q , Replaced cholecystostomy tube RUQ, draining greenish/yellowish fluid, GT in place LUQ, clean dry surrounding skin EXTREMITIES: 2+ pulses, warm, well-perfused, no edema. NEUROLOGICAL: , no focal deficit , able to move all extremities, no facial droop Laboratory Results - last 24 hr 10/30/18 11/02/18 11/02/18 00:05 05:10 05:10 WBC 8.9 RBC 3.00 L Hgb 10.1 L Hct 29.0 L D MCV 96.6 H MCH 33.6 MCHC 34.8 RDW 14.4 Plt Count 234 D MPV 8.2 Absolute Neuts (auto) 5.5 Neutrophils % 61.1 Lymphocytes % 24.3 Monocytes % 8.4 Eosinophils % 5.7 H Basophils % 0.5 Nucleated RBC % 0 Sodium 140 Potassium 4.0 Chloride 105 Carbon Dioxide 25 Anion Gap 10 BUN 17.9 Creatinine 1.1 Est GFR (CKD-EPI)AfAm 68.62 Est GFR (CKD-EPI)NonAf 59.20 Random Glucose 84 Calcium 8.0 L Phosphorus 3.3 Magnesium 2.1 Total Bilirubin 1.0 AST 25 ALT 33 Alkaline Phosphatase 161 H Total Protein 6.4 Albumin 2.4 L Blood Type O NEGATIVE Antibody Screen Negative Crossmatch See Detail Active Medications Generic Name Dose Route Start Last Admin Trade Name Freq PRN Reason Stop Dose Admin Acetaminophen 1,000 mg 10/27/18 06:14 10/28/18 14:33 Ofirmev Injection - IVPB 1,000 mg Q6H PRN Administration FEVER Pantoprazole Sodium 80 mg/ 100 mls @ 10 mls/hr 10/29/18 06:00 11/01/18 13:29 Sodium Chloride IVPB 10 mls/hr Q10H HOANG Administration 8 MG/HR Dextrose 1,000 mls @ 75 mls/hr 10/30/18 07:45 11/01/18 08:10 D5w - IV 75 mls/hr ASDIR HOANG Administration Metoprolol Tartrate 100 mg 10/31/18 10:00 11/01/18 21:20 Lopressor - GT 100 mg BID HOANG Administration CBC, BMP 11/02/18 05:10 11/02/18 05:10 ASSESSMENT/PLAN: Pt is an 88 yo M with Signif PMHx for HTN, Anemia, Dementia, recurrent aspiration pneumonia, bipolar disorder, G-tube placement, and multiple admissions for acute cholecystitis (s/p cholecystostomy tube dislodgement) presenting from [facility] on the [place] for abdominal pain and poor PO intake and dislodged cholecystectomy tube for one day #Sepsis secondary to cholecystitis s.p PTC , resolved * s/p cholecystostomy tube replacement 10/26/18 * In setting of dislodged cholecystostomy tube * Cont iv hydration * S.P Metronidazole and Ertapenim * monitor Off abx per ID * repeat cholangiogarm in AM after claming the PTC tube #dislodged cholecystectomy tube with cholecystitis and prior cholangitis * S/p replacement of cholecystostomy tube 10/26/18 * Pending per Dr Garcia-IR placed PTC (percutaneous transhepatic cholangiography ) tube placement today * Per Dr Garcia pt possibly has a tumor and would benefit from a stenting that does not leave any tube outside of the body #poor PO intake * Pt feeds both by mouth and through GT * Had poor PO intake with possible dehydration prior to admission * Cont fluid hydration * Osmolie 1.2 tube feeding today and then NPO after mid night for IR evaluate PTC in AM #Hypotension, resolved , no Hypertensive will resume lopressor today and if cont to be HTN will restart norvasc as well tomorrow #HTN BP meds on hold at this time in setting of hypotension Cont to monitor #Anemia, Macrocytic anemia * Transfusion tHreshold <8 * NO ACTIVE BLEEDING , MONITOR h/h #Dementia/bipolar disorder/recurrent aspiration pneumonia * Aspiration precautions * Fall precautions * Hold sychotropic medications #Tele will feed him today and NPO after mid night , possible dc tomorrow to [facility] IR evaluate PTC and repeat Cholangiogarm after climping PTC AM possible DC to [facility] in AM if no complication. Visit type - Emergency Visit Emergency Visit: Yes ED Registration Date: 10/26/18 Care time: The patient presented to the Emergency Department on the above date and was hospitalized for further evaluation of their emergent condition. - New Patient This patient is new to me today: No - Critical Care Critical Care patient: No ATTENDING PHYSICIAN STATEMENT I saw and evaluated the patient. I reviewed the resident's note and discussed the case with the resident. I agree with the resident's findings and plan as documented. SUBJECTIVE: OBJECTIVE: ASSESSMENT AND PLAN:
[2018-11-02] MEDS: METOPROLOL TARTRATE 50 MG TABLET (FP) GT SCH ×2 (09:53→21:34)
[2018-11-02] MEDS: DEXTROSE 5%-WATER - 1,000 ML IV SCH (09:55)
[2018-11-02] MEDS: PANTOPRAZOLE SODIUM 80 MG in SODIUM CHLORIDE 100 ML IVPB SCH (09:56)
[2018-11-02] MEDS ORDERED: amLODIPine BESYLATE 5 MG TABLET (FP) PO SCH (10:15)
[2018-11-02] MEDS ORDERED: amLODIPine BESYLATE 5 MG TABLET (FP) GT SCH (10:15)
[2018-11-02] MEDS ORDERED: ACETAMINOPHEN 325 MG TABLET (FP) PO PRN (11:58)
--- NOTE | 2018-11-02 12:35 | PN ---
Progress Note, [employer] - Note Progress Note: Diet ordered.Limited PO acceptance but good tolerance. Pt has PEG for most nutrition.
--- NOTE | 2018-11-02 16:36 | PN ---
Teaching Attending Note Name of Resident: Matthew Driver ATTENDING PHYSICIAN STATEMENT I saw and evaluated the patient. I reviewed the resident's note and discussed the case with the resident. I agree with the resident's findings and plan as documented with exceptions below. SUBJECTIVE: Patient seen and examined. denies any pain currently, asking to go home. OBJECTIVE: Vital Signs Period Temp Pulse Resp BP Sys/Hernandez Pulse Ox Last 24 Hr 98.1 F-99 F 60-79 20-20 129-163/65-90 97-97 Intake & Output 10/30/18 10/31/18 11/01/18 11/02/18 23:59 23:59 23:59 23:59 Intake Total 2425 2140 1920 1060 Output Total 100 70 Balance 2425 2140 1820 990 General: sitting in bed in no acute distress Chest: decreased effort, no rales or wheezing Abdomen:soft, right cholecystostomy tube in place, NT, pos bowel sounds Extremities: no edema Home Medications Medication Instructions Recorded Ascorbate Calcium [Vitamin C] 500 mg GT DAILY 03/11/17 Cyanocobalamin (Vitamin B-12) 1,000 mcg GT DAILY 03/11/17 [Vitamin B-12] Metoprolol Tartrate [Lopressor -] 100 mg GT BID tablet 03/26/17 Clonazepam [Klonopin] 0.25 mg GT BID 08/02/17 Mirtazapine [Remeron -] 15 mg GT HS 08/02/17 Acetaminophen [Tylenol] 650 mg PO BID PRN 06/28/18 Propylene Glycol/Peg 400/Pf 1 each OU Q12H 06/28/18 [Systane 0.3-0.4% Eye Drop] Amlodipine Besylate [Norvasc -] 5 mg PO DAILY tablet 07/07/18 Ursodiol [Actigal -] 300 mg PO BID capsule 07/07/18 Calcium Carbonate/Vitamin D3 1 each PO DAILY 09/15/18 [Calcium 500-Vit D3 400 Tablet] Mupirocin Cream [Bactroban 2% 1 applic TP DAILY 09/15/18 Cream -] Ertapenem Sodium [Invanz -] 1 gm IVPB DAILY vial 09/22/18 Metronidazole/Sodium Chloride 500 mg IV Q8H #24 ml 09/22/18 [Metronidazole 500 mg/100 ml] Active Medications Acetaminophen (Tylenol -) 650 mg PO Q6H PRN PRN Reason: PAIN LEVEL 1-5 Amlodipine Besylate (Norvasc -) 5 mg GT DAILY [facility] Metoprolol Tartrate (Lopressor -) 100 mg GT BID [facility] Last Admin: 11/02/18 09:53 Dose: 100 mg Mirtazapine (Remeron -) 15 mg GT HS [facility] Pantoprazole Sodium (Protonix Iv) 40 mg IVPUSH BID [facility] Laboratory Results - last 24 hr 10/30/18 11/02/18 11/02/18 00:05 05:10 05:10 WBC 8.9 RBC 3.00 L Hgb 10.1 L Hct 29.0 L D MCV 96.6 H MCH 33.6 MCHC 34.8 RDW 14.4 Plt Count 234 D MPV 8.2 Absolute Neuts (auto) 5.5 Neutrophils % 61.1 Lymphocytes % 24.3 Monocytes % 8.4 Eosinophils % 5.7 H Basophils % 0.5 Nucleated RBC % 0 Sodium 140 Potassium 4.0 Chloride 105 Carbon Dioxide 25 Anion Gap 10 BUN 17.9 Creatinine 1.1 Est GFR (CKD-EPI)AfAm 68.62 Est GFR (CKD-EPI)NonAf 59.20 Random Glucose 84 Calcium 8.0 L Phosphorus 3.3 Magnesium 2.1 Total Bilirubin 1.0 AST 25 ALT 33 Alkaline Phosphatase 161 H Total Protein 6.4 Albumin 2.4 L Blood Type O NEGATIVE Antibody Screen Negative Crossmatch See Detail Microbiology 10/26/18 13:15 Blood - Peripheral Venous Blood Culture - Final NO GROWTH AFTER 5 DAYS INCUBATION 10/26/18 13:30 Blood - Peripheral Venous Blood Culture - Final NO GROWTH AFTER 5 DAYS INCUBATION 10/26/18 13:30 Urine - Urine Clean Catch Urine Culture - Final NO GROWTH OBTAINED PTC results reviewed ASSESSMENT AND PLAN: 88 yom with PMHx of HTN, Anemia, Alzheimer Dementia, recurrent aspiration pneumonia, bipolar disorder, G-tube placement, and Cholecystitis s/p Cholecystostomy tube placement, recurrent admissions for dislodgement admitted with cholecystostomy tube dislodgement -Cholecystitis s/p cholecystostomy tube dislodgement -Suspect biliary sepsis -Choledocholithiasis with Biliary obstruction s/p biliary stent placement -r/o hemetemesis -Hypernatremia, suspect hypovolumic -Hyperchloremia, suspect iatrogenic -Hypomagnesemia -Hypophosphatemia -Hypokalemia -recurrent aspiration PNA -Alzheimer dementia -HTN -Anemia Plan: IR input noted, s/p cholangiogram with patent stent. Plan for repeat cholangiogram tomorrow post clamping of tube if can be removed. Gi input noted. H/h stable, d/c protonix drip, change to 40mg IV BID. PO as tolerated. Tube feeds resumed. Add free water via G tube 300 ml q6h. No further fevers/leucocytosis off antibiotics. ID input appreciated. resume ursodiol. Continue metoprolol/amlodipine/Mirtazapine. DVTPPX SCDs, Dispo plan for d/c back to [facility] tomorrow post repeat cholangiogram if no concerns. Discussed with Cm and nursing.
[2018-11-02] MEDS: clonazePAM 0.5 MG TABLET GT SCH (21:34)
[2018-11-02] MEDS: URSODIOL 300 MG CAPSULE PO SCH (21:34)
[2018-11-02] MEDS: PANTOPRAZOLE SODIUM 40 MG VIAL IVPUSH SCH (21:35)
[2018-11-02] MEDS ORDERED: MIRTAZAPINE 15 MG TABLET (FP) GT SCH (22:00)
[2018-11-03 07:02] LABS: BASO % 0.2 % (0-2.0); EOS % 4.1 % (0-4.5); HEMATOCRIT 26.8 % (35.4-49); HEMOGLOBIN 9.4 GM/dL (11.7-16.9); LYMPH % 22.4 % (8-40); MCH 34.2 pg (25.7-33.7); MCHC 35.1 g/dl (32.0-35.9); MEAN CELL VOLUME 97.4 fl (80-96); MEAN PLT VOLUME 8.6 fl (7.5-11.1); MONO % 10.6 % (3.8-10.2); NEUT % 62.7 % (42.8-82.8); PLATELET COUNT 224 K/MM3 (134-434); RBC 2.75 M/mm3 (4.00-5.60); RDW 14.5 % (11.9-15.9); WHITE BLOOD COUNT 7.3 K/mm3 (4.0-10.0)
[2018-11-03 07:07] LABS: ALBUMIN 2.3 g/dl (3.4-5.0); BILIRUBIN,TOTAL 0.6 mg/dL (0.2-1); BLOOD UREA NITROGEN 19.8 mg/dL (7-18); CALCIUM 7.6 mg/dL (8.5-10.1); CREATININE 1.1 mg/dL (0.55-1.3); MAGNESIUM 2.2 mg/dL (1.8-2.4); PHOSPHOROUS 2.8 mg/dL (2.5-4.9); POTASSIUM 4.2 mmol/L (3.5-5.1); TOT PROT 5.8 g/dl (6.4-8.2)
[2018-11-03] MEDS ORDERED: PT OWN MED DRAWER 7, Y5N ONE (09:46)
[2018-11-03] MEDS: PANTOPRAZOLE SODIUM 40 MG VIAL IVPUSH SCH (09:51)
[2018-11-03] MEDS: clonazePAM 0.5 MG TABLET GT SCH (09:51)
[2018-11-03] MEDS: METOPROLOL TARTRATE 50 MG TABLET (FP) GT SCH (09:52)
[2018-11-03] MEDS: URSODIOL 300 MG CAPSULE PO SCH (09:52)
--- NOTE | 2018-11-03 10:22 | PN ---
Physical Exam: SUBJECTIVE: Patient seen and examined, reports some right sided abdominal pain, asking to go home. OBJECTIVE: Vital Signs Period Temp Pulse Resp BP Sys/Hernandez Pulse Ox Last 24 Hr 98.1 F-98.4 F 66-78 18-20 145-156/70-81 98 Intake & Output 10/31/18 11/01/18 11/02/18 11/03/18 23:59 23:59 23:59 23:59 Intake Total 2140 1920 1500 480 Output Total 100 70 Balance 2140 1820 1430 480 GENERAL: sitting in bed in no acute distress Chest: decreased effort, no rales or wheezing Abdomen:Mild RUQ tenderness around Cholecystostomy tube site, no voluntary or involuntary guarding or rigidity, pos bowel sounds Extremities: no edema HEENT: PERRL, normocephalic, atraumatic CVS:S1S2 irregular Laboratory Results - last 24 hr 11/03/18 11/03/18 11/03/18 05:05 05:05 06:00 WBC 7.3 RBC 2.75 L Hgb 9.4 L Hct 26.8 L MCV 97.4 H MCH 34.2 H MCHC 35.1 RDW 14.5 Plt Count 224 MPV 8.6 Absolute Neuts (auto) 4.6 Neutrophils % 62.7 Lymphocytes % 22.4 Monocytes % 10.6 H Eosinophils % 4.1 Basophils % 0.2 Nucleated RBC % 0 Sodium 141 Potassium 4.2 Chloride 107 Carbon Dioxide 29 Anion Gap 5 L BUN 19.8 H Creatinine 1.1 Est GFR (CKD-EPI)AfAm 68.62 Est GFR (CKD-EPI)NonAf 59.20 Random Glucose 103 Calcium 7.6 L Phosphorus 2.8 Magnesium 2.2 Total Bilirubin 0.6 AST 18 ALT 27 Alkaline Phosphatase 141 H Total Protein 5.8 L Albumin 2.3 L Lipase 204 Active Medications Home Medications Medication Instructions Recorded Ascorbate Calcium [Vitamin C] 500 mg GT DAILY 03/11/17 Cyanocobalamin (Vitamin B-12) 1,000 mcg GT DAILY 03/11/17 [Vitamin B-12] Metoprolol Tartrate [Lopressor -] 100 mg GT BID tablet 03/26/17 Clonazepam [Klonopin] 0.25 mg GT BID 08/02/17 Mirtazapine [Remeron -] 15 mg GT HS 04/30/18 Acetaminophen [Tylenol] 650 mg PO BID PRN 06/28/18 Propylene Glycol/Peg 400/Pf 1 each OU Q12H 06/28/18 [Systane 0.3-0.4% Eye Drop] Amlodipine Besylate [Norvasc -] 5 mg PO DAILY tablet 07/07/18 Ursodiol [Actigal -] 300 mg PO BID capsule 07/07/18 Calcium Carbonate/Vitamin D3 1 each PO DAILY 09/15/18 [Calcium 500-Vit D3 400 Tablet] Mupirocin Cream [Bactroban 2% 1 applic TP DAILY 09/15/18 Cream -] Ertapenem Sodium [Invanz -] 1 gm IVPB DAILY vial 09/22/18 Metronidazole/Sodium Chloride 500 mg IV Q8H #24 ml 09/22/18 [Metronidazole 500 mg/100 ml] Generic Name Dose Route Start Last Admin Trade Name Freq PRN Reason Stop Dose Admin Acetaminophen 650 mg 11/02/18 11:58 Tylenol - PO Q6H PRN PAIN LEVEL 1-5 Amlodipine Besylate 5 mg 11/02/18 10:15 11/03/18 09:52 Norvasc - GT 5 mg DAILY HOANG Administration Clonazepam 0.25 mg 11/02/18 22:00 11/03/18 09:51 Klonopin - GT 0.25 mg BID HOANG Administration Metoprolol Tartrate 100 mg 10/31/18 10:00 11/03/18 09:52 Lopressor - GT 100 mg BID HOANG Administration Mirtazapine 15 mg 11/02/18 22:00 11/02/18 21:34 Remeron - GT 15 mg HS HOANG Administration Pantoprazole Sodium 40 mg 11/02/18 22:00 11/03/18 09:51 Protonix Iv IVPUSH 40 mg BID HOANG Administration Ursodiol 300 mg 11/02/18 22:00 11/03/18 09:52 Actigal - PO 300 mg BID HOANG Administration Microbiology 10/26/18 13:15 Blood - Peripheral Venous Blood Culture - Final NO GROWTH AFTER 5 DAYS INCUBATION 10/26/18 13:30 Blood - Peripheral Venous Blood Culture - Final NO GROWTH AFTER 5 DAYS INCUBATION 10/26/18 13:30 Urine - Urine Clean Catch Urine Culture - Final NO GROWTH OBTAINED ASSESSMENT/PLAN: 88 yom with PMHx of HTN, Anemia, Alzheimer Dementia, recurrent aspiration pneumonia, bipolar disorder, G-tube placement, and Cholecystitis s/p Cholecystostomy tube placement, recurrent admissions for dislodgement admitted with cholecystostomy tube dislodgement -Cholecystitis s/p cholecystostomy tube dislodgement -Suspect biliary sepsis -Choledocholithiasis with Biliary obstruction s/p biliary stent placement -r/o hemetemesis -Hypernatremia, suspect hypovolumic -Hyperchloremia, suspect iatrogenic -Hypomagnesemia -Hypophosphatemia -Hypokalemia -recurrent aspiration PNA -Alzheimer dementia -HTN -Anemia Plan: IR input noted, s/p cholangiogram with patent stent. Plan for repeat cholangiogram today post clamping of tube if can be removed. LFTs improved, h/h stable. Gi input noted. H/h stable, protonix IV BID, change to PO. PO as tolerated. Tube feeds resumed. Free water via G tube 300 ml q6h. No further fevers/leucocytosis off antibiotics. ID input appreciated. Continue ursodiol. Continue metoprolol/amlodipine/Mirtazapine. DVTPPX SCDs, Dispo plan for d/c back to [facility] later today post repeat cholangiogram if no concerns. Discussed with nursing Visit type - Emergency Visit Emergency Visit: Yes ED Registration Date: 10/26/18 Care time: The patient presented to the Emergency Department on the above date and was hospitalized for further evaluation of their emergent condition. - New Patient This patient is new to me today: No - Critical Care Critical Care patient: No - Discharge Referral Referred to [facility] No
--- NOTE | 2018-11-03 14:33 | DS ---
Physical Exam: SUBJECTIVE: Patient seen and examined at bed side , no fever or chills, reported , tolerating diet, will be send back to [place] and he need to come back in 2 weeks to radiation oncology to re evaluate the gall bllader external tube. OBJECTIVE: Vital Signs Period Temp Pulse Resp BP Sys/Hernandez Pulse Ox Last 24 Hr 98.1 F-98.6 F 72-78 18-20 145-156/70-81 98 PHYSICAL EXAM GENERAL: AAOx3 , LUNGS: CTA B/L HEART: Regular rate and rhythm, S1, S2 without murmur ABDOMEN: Soft, tender RUQ, mild distension, + BS all 4 Q , Replaced cholecystostomy tube RUQ, draining greenish/yellowish fluid, GT in place LUQ, clean dry surrounding skin EXTREMITIES: 2+ pulses, warm, well-perfused, no edema. NEUROLOGICAL: , no focal deficit , able to move all extremities, no facial droop LABS Laboratory Results - last 24 hr 11/03/18 11/03/18 11/03/18 05:05 05:05 06:00 WBC 7.3 RBC 2.75 L Hgb 9.4 L Hct 26.8 L MCV 97.4 H MCH 34.2 H MCHC 35.1 RDW 14.5 Plt Count 224 MPV 8.6 Absolute Neuts (auto) 4.6 Neutrophils % 62.7 Lymphocytes % 22.4 Monocytes % 10.6 H Eosinophils % 4.1 Basophils % 0.2 Nucleated RBC % 0 Sodium 141 Potassium 4.2 Chloride 107 Carbon Dioxide 29 Anion Gap 5 L BUN 19.8 H Creatinine 1.1 Est GFR (CKD-EPI)AfAm 68.62 Est GFR (CKD-EPI)NonAf 59.20 Random Glucose 103 Calcium 7.6 L Phosphorus 2.8 Magnesium 2.2 Total Bilirubin 0.6 AST 18 ALT 27 Alkaline Phosphatase 141 H Total Protein 5.8 L Albumin 2.3 L Lipase 204 CBC, BMP 11/03/18 05:05 11/03/18 05:05 HOSPITAL COURSE: Date of Admission:10/26/18 Date of Discharge: 11/03/18 Pt is an 88 yo M with Signif PMHx for HTN, Anemia, Dementia, recurrent aspiration pneumonia, bipolar disorder, G-tube placement, and multiple admissions for acute cholecystitis (s/p cholecystostomy tube dislodgement) presenting from [facility] [place] for abdominal pain and poor PO intake and dislodged cholecystectomy tube for one day. for Sepsis likely secondary to cholecystitis s.p PTC , resolved ,s/p cholecystostomy tube replacement 10/26/18, treated Metronidazole and Ertapenim, repeated cholangiogarm after claming the PTC tube, pt will need to return to radiation in 2 weeks for re evaluation of PTC external and internal. pt can resume tube feeding as before admission and for HTN resume his home meds .for Dementia/bipolar disorder/recurrent aspiration pneumonia follow Aspiration precautions and Fall precautions Minutes to complete discharge: 45 Discharge Summary Reason For Visit: ACUTE KIDNEY INJURY Current Active Problems Dementia with behavioral disturbance (Chronic) Generalized weakness (Chronic) Hypertension (Chronic) Macular degeneration, age related (Chronic) Malnutrition of moderate degree (Chronic) PEG (percutaneous endoscopic gastrostomy) status (Chronic) Condition: Stable - Instructions Diet, Activity, Other Instructions: you presented to the hospital after you [facility] after gall bladder tube was dislodged ,and you were found to have gall bladder infection. new tube was placed in and it working well for now , you need to return to the radiology in 2 weeks to re evaluate the gall bladder tube , please keep it in place , clean and dry. Please keep PEG tube in place clean and dry. you can resume feeding through the PEG tube You can resume your medication as before admission Start Protonix 40 mg daily for now there is no need for any more antibiotics Please follow up with your primary within one week Follow up with Dr. Beltran in 1-2 weeks. Please call [facility] Interventional Radiology at [phone] on discharge to schedule follow up in 2 WEEKS to assess your cholecystostomy tube and further testing. FOLLOW UP LABS: Blood work CBC, BMP, LFTs in 3 days at the nursing and serial monitoring weekly for the next 1 month if you develop fever, chills, abdominal pain , chest pain , return to emergency room. Referrals: David Joe MD [Staff Physician] - 2 Weeks (call [phone] to schedule an appointment with [facility] radiology interventional radiology Dr Garry Lamb to re evaluate the gall bladder tube. ) Naila Beltran MD [Staff Physician] - 2 Weeks [facility]position: [facility] - Home Medications Comprehensive Discharge Medication List: Ambulatory Orders Ascorbate Calcium [Vitamin C] 500 mg GT DAILY 03/11/17 Cyanocobalamin (Vitamin B-12) [Vitamin B-12] 1,000 mcg GT DAILY 03/11/17 Metoprolol Tartrate [Lopressor -] 100 mg GT BID tablet 03/26/17 Clonazepam [Klonopin] 0.25 mg GT BID 08/02/17 Mirtazapine [Remeron -] 15 mg GT HS 08/02/17 Acetaminophen [Tylenol] 650 mg PO BID PRN 06/28/18 Propylene Glycol/Peg 400/Pf [Systane 0.3-0.4% Eye Drop] 1 each OU Q12H 06/28/18 Amlodipine Besylate [Norvasc -] 5 mg PO DAILY tablet 07/07/18 Ursodiol [Actigal -] 300 mg PO BID capsule 07/07/18 Calcium Carbonate/Vitamin D3 [Calcium 500-Vit D3 400 Tablet] 1 each PO DAILY Mupirocin Cream [Bactroban 2% Cream -] 1 applic TP DAILY 09/15/18 Pantoprazole Sodium [Protonix IV] 40 mg IVPUSH DAILY #14 vial 11/03/18 This patient is new to me today: No Emergency Visit: Yes ED Registration Date: 10/26/18 Care time: The patient presented to the Emergency Department on the above date and was hospitalized for further evaluation of their emergent condition. Critical Care patient: No - Discharge Referral Referred to [facility] No ATTENDING PHYSICIAN STATEMENT I saw and evaluated the patient. I reviewed the resident's note and discussed the case with the resident. I agree with the resident's findings and plan as documented. SUBJECTIVE: OBJECTIVE: ASSESSMENT AND PLAN:
[2018-11-03 15:36] VITALS: BP 130/68; PULSE 70; TEMP 97.8
== END 2018-11-03 17:14 | DRG 919 ==
LOC: JER 11:30 → JERBED 17:04 → J4W 22:13
PROVIDERS: ADMIT Internal Medicine; ATTEND Hospitalist
PROC: 0F9430Z Drainage of Gallbladder with Drainage Device, Percutaneous Approach (ICD-10-PCS; principal; 2018-10-26)
PROC: 0F793DZ Dilation of Common Bile Duct with Intraluminal Device, Percutaneous Approach (ICD-10-PCS; 2018-10-28)
PROC: 30233N1 Transfusion of Nonautologous Red Blood Cells into Peripheral Vein, Percutaneous Approach (ICD-10-PCS; 2018-10-30)
DX: T85.520A Displacement of bile duct prosthesis, initial encounter (principal); A41.9 Sepsis, unspecified organism; J69.0 Pneumonitis due to inhalation of food and vomit; K80.63 Calculus of gallbladder and bile duct with acute cholecystitis with obstruction; N17.9 Acute kidney failure, unspecified; E87.0 Hyperosmolality and hypernatremia; F02.81 Dementia in other diseases classified elsewhere, unspecified severity, with behavioral disturbance; K92.2 Gastrointestinal hemorrhage, unspecified; E44.0 Moderate protein-calorie malnutrition; Y83.8 Other surgical procedures as the cause of abnormal reaction of the patient, or of later complication, without mention of misadventure at the time of the procedure; Y92.128 Other place in nursing home as the place of occurrence of the external cause; Y84.8 Other medical procedures as the cause of abnormal reaction of the patient, or of later complication, without mention of misadventure at the time of the procedure; I10 Essential (primary) hypertension; G30.9 Alzheimer's disease, unspecified; Z87.891 Personal history of nicotine dependence; F31.9 Bipolar disorder, unspecified; I95.9 Hypotension, unspecified; E86.0 Dehydration; D51.9 Vitamin B12 deficiency anemia, unspecified; Z93.1 Gastrostomy status; E83.42 Hypomagnesemia; E83.39 Other disorders of phosphorus metabolism; E87.6 Hypokalemia; E87.8 Other disorders of electrolyte and fluid balance, not elsewhere classified; Z68.22 Body mass index [BMI] 22.0-22.9, adult; H35.30 Unspecified macular degeneration
CPT/HCPCS: 36415; 36430; 36511; 47490; 47531; 47533-TC; 47534; 47542-TC; 71045-TC-FY; 74177-TC; 76000-TC-FY; 80048; 80053; 80076; 81003; 82248; 82607; 82747; 83605; 83690; 83735; 84100; 85014; 85025; 85027; 85610; 85730; 86850; 86900; 86901; 86922; 87040; 87086; 93005; 93010; 99285-25; C1725; C1729; C1769; C1887; C1894; J0131; J7030; P9038; P9058